=== PATIENT | female | born 1965 | race Caucasian/White ===

== ENCOUNTER → 2024-09-17 | Outpatient (REF) | payer MEDICARE, MEDICAID, SELFPAY ==
[2024-09-17 08:27] LABS: Hematocrit 31.7 % (37-47); Hemoglobin 8.8 g/dL (12.0-15.0); Mean Corp Hgb Conc 27.8 g/dL (32-36); Mean Corpuscular Volume 93.5 fL (81-99); POSITIVE COUNT YES; POSITIVE MORPHOLOGY YES; RBC Distribution Width CV 28.2 % (11.6-14.6); RBC Distribution Width SD 94.2 fl (35.1-43.9); Red Blood Count 3.39 M/mm3 (4.2-5.4); White Blood Count 4.1 K/mm3 (4.4-11.0)
[2024-09-17 08:38] LABS: Vitamin D,25 Hydroxy 88.1 ng/mL
[2024-09-17 08:49] LABS: ALB/GLOB Ratio 0.5 RATIO (0.9-2.4); AST(SGOT) 45 U/L (15-37); Alanine Aminotransfer ALT/SGPT 16 U/L (13-56); Albumin, Serum 2.3 g/dL (3.2-5.0); Alkaline Phosphatase 87 U/L (45-117); Anion Gap 3 (5-15); BUN 8 mg/dL (7-18); BUN/Creat Ratio 13.7 RATIO (10-20); Calcium,Total 8.3 mg/dL (8.5-10.1); Chloride 102 mmol/L (98-107); Cholesterol 113 mg/dL (200); Creatinine, Serum 0.58 mg/dL (0.55-1.02); EST Glomerular Filtration Rate 113 mL/min (>60); Est Glom Filt Rate - Afr Amer 137 mL/min (>60); Globulin 4.4 g/dL (2.2-4.2); Glucose 123 mg/dL (74-106); High Density Lipoprotein 25 mg/dL; Potassium 3.6 mmol/L (3.5-5.1); Protein, Total 6.7 g/dL (6.4-8.2); Sodium Level 138 mmol/L (136-145); Triglycerides 170 mg/dL; Very Low Density Lipoprotein 34 mg/dL (5-40)
[2024-09-17 09:03] LABS: Scan Indicated on CBC? Y/N YES- FLAGS NOTED
[2024-09-17 10:31] LABS: Hemoglobin A1c 5.5 % (3.8-5.6)
== END ==
LOC: OLS.ACW300 05:00
PROVIDERS: Visit Provider Family Medicine
DX: K58.9 Irritable bowel syndrome, unspecified (principal); E66.01 Morbid (severe) obesity due to excess calories
CPT/HCPCS: 36415; 80053; 80061; 82306; 83036; 83735; 84443; 85027

== ENCOUNTER → 2024-10-04 05:00 | Outpatient (REF) | payer MEDICARE, MEDICAID, SELFPAY ==
[2024-10-04 08:30] LABS: Hemoglobin 10.5 g/dL (12.0-15.0); Mean Corp Hgb Conc 29.2 g/dL (32-36); Mean Corpuscular Hgb 27.5 pg (27.0-32.0); Mean Corpuscular Volume 94.2 fL (81-99); Mean Platelet Vol. 10.7 fl (6.2-12.0); POSITIVE COUNT YES; POSITIVE MORPHOLOGY YES; RBC Distribution Width SD 78.3 fl (35.1-43.9); Red Blood Count 3.82 M/mm3 (4.2-5.4)
[2024-10-04 09:16] LABS: Scan Indicated on CBC? Y/N YES- FLAGS NOTED
== END ==
LOC: OLS.ACW300 05:00
PROVIDERS: Visit Provider Family Medicine
DX: I69.354 Hemiplegia and hemiparesis following cerebral infarction affecting left non-dominant side (principal); D62 Acute posthemorrhagic anemia; M62.81 Muscle weakness (generalized); D50.9 Iron deficiency anemia, unspecified; E66.01 Morbid (severe) obesity due to excess calories
CPT/HCPCS: 36415; 85027

== ENCOUNTER → 2024-10-27 05:00 | Outpatient (REF) | payer MEDICARE, MEDICAID, SELFPAY ==
[2024-10-27 09:05] LABS: Hematocrit 35.7 % (37-47); Hemoglobin 10.6 g/dL (12.0-15.0); Mean Corp Hgb Conc 29.7 g/dL (32-36); Mean Corpuscular Volume 94.4 fL (81-99); Mean Platelet Vol. 10.2 fl (6.2-12.0); Platelet Count 143 K/mm3 (150-450); RBC Distribution Width CV 17.6 % (11.6-14.6); RBC Distribution Width SD 61.1 fl (35.1-43.9); Red Blood Count 3.78 M/mm3 (4.2-5.4); White Blood Count 3.5 K/mm3 (4.4-11.0)
[2024-10-27 10:15] LABS: Iron 32 ug/dL (50-170); Iron Binding Capacity,Total 240 ug/dL (250-450)
== END ==
LOC: OLS.ACW300 05:00
PROVIDERS: Visit Provider Family Medicine
DX: I69.354 Hemiplegia and hemiparesis following cerebral infarction affecting left non-dominant side (principal); D62 Acute posthemorrhagic anemia; M62.81 Muscle weakness (generalized); D50.9 Iron deficiency anemia, unspecified; E66.01 Morbid (severe) obesity due to excess calories
CPT/HCPCS: 36415; 83540; 83550; 85027

== ENCOUNTER → 2024-12-07 | Outpatient (REF) | payer MEDICARE, MEDICAID, SELFPAY ==
[2024-12-07 09:20] LABS: Hematocrit 31.5 % (37-47); Hemoglobin 9.7 g/dL (12.0-15.0); Mean Corp Hgb Conc 30.8 g/dL (32-36); Mean Corpuscular Hgb 27.3 pg (27.0-32.0); Mean Corpuscular Volume 88.7 fL (81-99); Platelet Count 146 K/mm3 (150-450); RBC Distribution Width CV 14.6 % (11.6-14.6); RBC Distribution Width SD 46.6 fl (35.1-43.9); Red Blood Count 3.55 M/mm3 (4.2-5.4)
[2024-12-07 09:42] LABS: ALB/GLOB Ratio 0.9 RATIO (0.9-2.4); AST(SGOT) 61 U/L (<=31); Alanine Aminotransfer ALT/SGPT 25 U/L (<=34); Albumin, Serum 3.6 g/dL (3.5-5.0); Alkaline Phosphatase 90 U/L (35-104); Anion Gap 12 (5-15); BUN 8 mg/dL (4-19); BUN/Creat Ratio 15.4 RATIO (10-20); Bilirubin, Direct 0.33 mg/dL (0.00-0.30); Calcium,Total 9.3 mg/dL (7.6-11.0); Carbon Dioxide 24.6 mmol/L (21.0-32.0); Chloride 103 mmol/L (98-108); EST Glomerular Filtration Rate 109 (>60); Globulin 3.9 g/dL (2.2-4.2); Glucose 135 mg/dL (70-99); Potassium 3.9 mmol/L (3.3-5.1); Protein, Total 7.6 g/dL (5.9-8.4); Sodium Level 139 mmol/L (133-145); Total Bilirubin 0.85 mg/dL (0.00-1.30)
== END ==
LOC: OLS.ACW300 06:40
PROVIDERS: Referring Provider Family Medicine; Visit Provider Family Medicine
DX: Z79.899 Other long term (current) drug therapy (principal); I69.354 Hemiplegia and hemiparesis following cerebral infarction affecting left non-dominant side; D62 Acute posthemorrhagic anemia; M62.81 Muscle weakness (generalized); D50.9 Iron deficiency anemia, unspecified; E66.01 Morbid (severe) obesity due to excess calories
CPT/HCPCS: 36415; 80053; 82248; 85027

== ENCOUNTER → 2025-02-07 | Outpatient (REF) | payer MEDICARE, MEDICAID, SELFPAY ==
[2025-02-07 08:41] LABS: Hematocrit 28.1 % (37-47); Hemoglobin 7.9 g/dL (12.0-15.0); Mean Corp Hgb Conc 28.1 g/dL (32-36); Mean Corpuscular Hgb 23.4 pg (27.0-32.0); Mean Corpuscular Volume 83.1 fL (81-99); Platelet Count 162 K/mm3 (150-450); RBC Distribution Width CV 17.2 % (11.6-14.6); RBC Distribution Width SD 52.5 fl (35.1-43.9); Red Blood Count 3.38 M/mm3 (4.2-5.4); White Blood Count 4.4 K/mm3 (4.4-11.0)
[2025-02-07 09:44] LABS: AST(SGOT) 71 U/L (<=31); Alanine Aminotransfer ALT/SGPT 36 U/L (<=34); Albumin, Serum 3.6 g/dL (3.5-5.0); Alkaline Phosphatase 86 U/L (35-104); Anion Gap 12 (5-15); BUN 11 mg/dL (4-19); BUN/Creat Ratio 17.8 RATIO (10-20); Calcium,Total 9.1 mg/dL (7.6-11.0); Chloride 100 mmol/L (98-108); Cholesterol 200 mg/dL (<=200); Creatinine, Serum 0.61 mg/dL (0.70-1.20); EST Glomerular Filtration Rate 104 (>60); Globulin 3.7 g/dL (2.2-4.2); Glucose 234 mg/dL (70-99); High Density Lipoprotein 29 mg/dL; Low Density Lipoprotein Calc. 126 mg/dL; Potassium 4.2 mmol/L (3.3-5.1); Protein, Total 7.3 g/dL (5.9-8.4); Sodium Level 137 mmol/L (133-145); Total Bilirubin 0.75 mg/dL (0.00-1.30); Triglycerides 222 mg/dL; Very Low Density Lipoprotein 44 mg/dL (5-40); cholesterol:hdl ratio screen 6.85
== END ==
LOC: OLS.ACW300 05:00
PROVIDERS: Visit Provider Family Medicine
DX: I69.354 Hemiplegia and hemiparesis following cerebral infarction affecting left non-dominant side (principal); D50.9 Iron deficiency anemia, unspecified; E66.01 Morbid (severe) obesity due to excess calories
CPT/HCPCS: 36415; 80053; 80061; 85027

== ENCOUNTER → 2025-02-28 04:00 | Outpatient (REF) | payer MEDICARE, MEDICAID, SELFPAY ==
--- OUTSIDE RECORDS SUMMARY | 2025-02-28 04:16 | XMS RPT_ITS | CCD ---
Author Organization [facility] Care Team Providers Care Web Operations Administrator Name Role Phone MENCL, MIGUEL R Unavailable Unavailable MENCL, MIGUEL R Unavailable Unavailable NO REFERRING DR Unavailable Unavailable Didier Hicks Primary Care Provider Unavailable Primary Care Provider Unavailchino Hicks MD, Didier Primary Care Provider Didier Hicks Primary Care Provider [phone] Didier Hicks Primary Care Provider Unavailable Primary Care Provider Unavailchino OVERTON MD, [facility] Consulting Unavailable DEISY DILL, DAVID Attending Unavailable NATHAN DILL, EDMUNDO Primary Care Unavailable JACINTO BARRERA MD Admitting Unavailable MICHAEL DILL, RICHARD Deluna Consulting Unavailable Care Physician, No Primary Primary Care Provider Unavailable Gee Mccullough Attending Provider Unavailabl e Care Physician, No Primary Primary Care Provider Unavailable Gee Mccullough Attending Provider UnavailGee Lamar Referring Provider UnavailGee Lamar Attending Unavailable Care Physician, No Primary Primary Care Unava ilable Care Physician, No Primary Primary Care Unava ilable Gee Mccullough Attending Unavailable Care Physician, No Primary Primary Care Unava ilable Gee Mccullough Attending Unavailable Care Physician, No Primary Primary Care Unava ilable Gee Mccullough Attending Unavailable Gee Mccullough Attending Unavailable Gee Mccullough Referring Unavailable Care Physician, No Primary Primary Care Unava ilable Allergies Allergy Classification Reported Allergen(s) Allergy Type Date of Onset Reaction(s) Facility (4 sources) Aluminum aspirin Drug Allergy 02-25-20 16 Other (See Comments) [place], [place] (10 sources) Ciprofloxacin Drug Allergy 05-01-20 15 Itching [place] (4 sources) HYDROmorphone Drug Allergy 01-12-20 16 [place] (8 sources) Iodine Drug Allergy 07-25-20 11 Nausea And Vomiting, Vomiting [place] (4 sources) Ivermectin Drug Allergy 01-19-20 20 Other (See Comments) [place] (10 sources) metaxalone Drug Allergy 07-25-20 11 Itching [place] (10 sources) Morphine Drug Allergy 01-12-20 16 Intolerance [place] (8 sources) Permethrin Drug Allergy 01-12-20 16 Rash [place] (8 sources) predniSONE Drug Allergy 06-08-20 18 Nausea And Vomiting, Itching [place] (10 sources) Propofol Drug Allergy 07-20-20 12 Shortness Of Breath, Other: See Comments [place] (4 sources) Propoxyphene Drug Allergy 07-25-20 11 [place] ([place] sources) raNITIdine Drug Allergy 07-25-20 11 Nausea And Vomiting, Vomiting [place] (4 sources) Sulfonamides (Antibiotic) Propensity to adverse reactions to drug 07-03-20 17 [place] (4 sources) tapentadol Drug Allergy 06-01-20 12 Swelling [place] (8 sources) traMADol Drug Allergy 04-15-20 18 Other (See Comments), Other: See Comments [place] (4 sources) Tetracyclines & Related Propensity to adverse reactions to drug 02-25-20 16 [place] (3 sources) montelukast Drug Allergy 06-29-20 20 Other (See Comments) [facility] Work Phone: (3 sources) PARoxetine Drug Allergy 03-16-20 20 Other (See Comments) [facility] Work Phone: (1 source) buPROPion Drug Allergy 03-02-20 22 Other (See Comments) [facility] (4 sources) HYDROmorphone Drug Allergy 01-12-20 16 Other: See Comments [facility] (6 sources) Propoxyphene Drug Allergy 07-25-20 11 Unknown [facility] (4 sources) Salicylate product Drug Allergy 07-25-20 11 GI Upset [facility] (4 sources) tapentadol Drug Allergy 06-01-20 12 Swelling [facility] (6 sources) Tetracycline Drug Allergy 07-25-20 11 Rash [facility] (4 sources) Sulfa Dyne Drug Allergy 07-25-20 11 Unknown [facility] (5 sources) Aspirin Drug Allergy 02-25-20 16 Other: See Comments [facility] Work Phone: (5 sources) levoFLOXacin Drug Allergy 04-10-20 16 Rash [facility] Work Phone: (3 sources) Sulfonamides (Antibiotic) Drug Intolerance 04-10-20 16 GI Upset [facility] Work Phone: (3 sources) Iodinated Contrast Media Drug Intolerance 04-10-20 16 GI Upset [facility] Work Phone: (3 sources) Ciprofloxacin; Translations: [ciprofloxacin HCl] Drug Allergy 04-16-[address] [facility] (3 sources) HYDROmorphone; Translations: [hydromorphone HCl] Drug Allergy 04-16-[address] [facility] (2 sources) Sorbitol Drug Allergy 04-19-[address] [facility] Comment on above: "burning tongue" (2 sources) Sucrose Drug Allergy 04-19-[address] [facility] Comment on above: "burning tongue" (2 sources) Sulfonamides (Antibiotic) Propensity to adverse reactions 04-16-[address] [facility] (3 sources) tapentadol; Translations: [tapentadol HCl] Drug Allergy 04-16-[address] [facility] (2 sources) Triiodobenzoic Acids Propensity to adverse reactions 04-16-[address] [facility] (3 sources) Food Allergies: Uncoded; Translations: [Food Allergies: Uncoded] Allergy to substance 08-19-[address] [facility] Comment on above: ASPERTAME (1 source) Aspirin Drug Allergy 04-16-[address] [facility] Rep[facility] (1 source) Ciprofloxacin Drug Allergy 04-16-[address] [facility] Rep[facility] (1 source) levoFLOXacin Drug Allergy 04-16-[address] [facility] Rep[facility] (1 source) metaxalone Drug Allergy 04-16-[address] [facility] (1 source) Morphine Drug Allergy 04-16-[address] [facility] (1 source) Propofol Drug Allergy 04-16-[address] [facility] (1 source) Propoxyphene Drug Allergy 04-16-[address] [facility] (1 source) Sorbitol Drug Allergy 04-19-[address] [facility] Rep[facility] (1 source) Sucrose Drug Allergy 04-19-[address] [facility] Rep[facility] (1 source) Sulfonamides (Antibiotic) Drug allergy (disorder) 04-16-[address] [facility] Rep[facility] (1 source) Tetracycline Drug Allergy 04-16-[address] [facility] Rep[facility] (1 source) Iodinated Contrast Media Drug allergy (disorder) 04-16-[address] [facility] Repository Medications Current Medications Medication Drug Class(es) Dates Sig (Normalized) Sig (Original) acetaminophen 500 mg oral tablet (10 sources) Start: 03-03-2022 acetaminophen (TYLENOL) tablet 1,000 mg Start: 03-01-2022 End: 03-01-2022 acetaminophen (TYLENOL) tabl et 1,000 mg acetaminophen (T YLENOL ARTHRITIS ORAL) Take by mouth. 0 Active acetaminophen (T YLENOL ARTHRITIS ORAL) Take by mouth. 0 Suspended take 2 tablets by mo [facility] every six hours as needed for pain acetaminophen (TYLENOL) 500 MG tablet Take 1,000 mg by mouth every 6 hours as needed for Pain 0 Active Acetaminophen (T YLENOL ARTHRITIS EXT RELIEF PO) Take by mouth 0 Active Comment on above: Take by mouth. ALPRAZolam 0.25 mg oral tablet (2 sources) Benzodiazepine take 1 tablet by mouth three times daily as needed for sleep ALPRAZolam (XANAX) 0.25 MG tablet Take 0.25 mg by mouth 3 times daily as needed for Sleep. 0 Active amLODIPine 5 mg oral tablet (8 sources) Dihydropyridine Calcium Channel Beata Start: 03-06-20 End: 03-05-20 take 1 tablet by mouth once daily amLODIPine (NORVASC) 5 MG tablet Take 1 tablet by mouth daily 30 tablet 3 03/06/2022 03/05/2022 Discontinued (Stop Taking at Discharge) Start: 03-06-2022 take 1 tablet by afshan once daily amLODIPine (NORVASC) 10 MG tablet Take 1 tablet by mouth daily 30 tablet 3 03/06/2022 Active Start: 03-06-2022 amLODIPine (NO RVASC) tablet 10 mg Start: 03-04-2022 End: 03-05-2022 amLODIPine (NORVASC) tablet 5 mg take 1 tablet by afshan th once daily amLODIPine (NORVASC) 10 mg tablet Take 10 mg by mouth once daily. 0 Active Comment on above: Take 10 mg by mouth once daily. amoxicillin 875 mg / clavulanate 125 mg oral tablet (1 source) Penicillin-class Antibacterial Start: 07-31-20 End: 08-10-20 take 1 tablet by mouth twice daily amoxicillin-clavulan ate (AUGMENTIN) 875-125 MG per tablet Indications: Acute bacterial sinusitis Take 1 tablet by mouth 2 times daily for 10 days 20 tablet 0 07/31/2021 08/10/2021 Active atorvastatin 40 mg oral tablet (6 sources) HMG-CoA Reductase Inhibitor Start: 03-02-20 take 1 tablet by mouth once daily atorvastatin (LIPITOR) 40 MG tablet Take 1 tablet by mouth nightly 30 tablet 3 03/05/2022 Active Comment on above: Take 40 mg by mouth once daily. capsaicin 0.25 mg/ml topical cream (2 sources) Start: 03-05-20 End: 04-04-20 capsaicin (ZOSTRIX) 0.025 % cream Apply topically 2 times daily. 1 03/05/2022 04/04/2022 Active Start: 03-02-2022 capsaicin (ZOS TRIX) 0.025 % cream cefuroxime 250 mg oral tablet (2 sources) Cephalosporin Antibacterial Start: 04-24-2016 take 2 tablets by mouth twice daily Cefuroxime Axetil 250 MG tablet Active 500 mg PO TWICE A DAY April 24, 2016 12:00am cholecalciferol 1000 unt oral capsule (1 source) Vitamin D take 1 capsule by mouth once daily Cholecalciferol (VITAMIN D-3) 25 MCG (1000 UT) CAPS Take 1 capsule by mouth daily 0 Active clopidogrel 75 mg oral tablet (6 sources) [id number] Platelet Inhibitor Start: 03-05-2022 clopidogrel (PLAVIX) tablet 75 mg Comment on above: Take 75 mg by mouth once daily. 0.4 ml enoxaparin sodium 100 mg/ml prefilled syringe (2 sources) Low Molecular Weight Heparin Start: 03-06-2022 enoxaparin (LOVENOX) 40 MG/0.4ML Inject 0.4 mLs into the skin daily 0 03/06/2022 Active Start: 03-02-2022 enoxaparin (LO VENOX) injection 40 mg fluticasone propionate 0.05 mg/actuat metered dose nasal spray (3 sources) Corticosteroid Start: 12-27-2019 take 2 spray(s) nasal route once daily fluticasone (FLONASE) 50 MCG/ACT nasal spray Indications: Acute non-recurrent maxillary sinusitis SHAKE LIQUID AND USE 2 SPRAYS IN EACH NOSTRIL DAILY 16 g 3 12/27/2019 Active gabapentin 100 mg oral capsule (3 sources) Anti-epileptic Agent Start: 03-03-2022 End: 04-04-2022 take 1 capsule by mouth twice daily gabapentin (NEURONTIN) 100 MG capsule Take 1 capsule by mouth 2 times daily for 30 days. 90 capsule 3 03/05/2022 04/04/2022 Active hydrALAZINE hydrochloride 10 mg oral tablet (6 sources) Arteriolar Vasodilator Start: 03-05-2022 End: 03-05-2023 take 1 tablet by mouth four times daily as needed hydrALAZINE (APRESOLINE) 10 MG tablet Take 1 tablet by mouth 4 times daily as needed (for SBP > 180) 90 tablet 3 03/05/2022 03/05/2023 Active Comment on above: Take 10 mg by mouth four times daily as needed (for SBP > 180). hydrOXYzine pamoate 25 mg oral capsule (2 sources) Antihistamine Start: 03-02-2022 hydrOXYzine pamoate (VISTARIL) capsule 25 mg End: 03-02-2022 take 1 tablet by mouth three times daily as needed hydrOXYzine HCl (ATARAX) 25 MG tablet Take 25 mg by mouth 3 times daily as needed for Itching 0 03/02/2022 Discontinued (LIST CLEANUP) loratadine 10 mg oral tablet (1 source) Start: 01-19-2020 take 1 tablet by mouth once daily loratadine (CLARITIN) 10 MG tablet Take 1 tablet by mouth daily 90 tablet 3 01/19/2020 Active melatonin 5 mg oral tablet (2 sources) Start: 03-02-2022 take 1 tablet by mouth once daily as needed melatonin 5 MG TABS tablet Take 1 tablet by mouth nightly as needed (insomnia) 0 03/05/2022 Active metroNIDAZOLE 500 mg oral tablet (2 sources) Nitroimidazole Antimicrobial Start: 04-24-2016 take 1 tablet by mouth every eight hours Metronidazole 500 MG tablet Active 500 mg PO Q8H April 24, 2016 12:00am PARoxetine hydrochloride 10 mg oral tablet (1 source) Serotonin Reuptake Inhibitor Start: 01-10-2020 take 1 tablet by mouth once daily PARoxetine (PAXIL) 10 MG tablet Indications: PTSD (post-traumatic stress disorder) , Current 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 8 tablet 0 03/12/2018 Active Start: 04-24-2016 End: 03-12-2022 take 1 tablet by mouth every six hours as needed for nausea promethazine (PHENERGAN) 25 MG tablet Take 1 tablet by mouth every 6 hours as needed for Nausea 0 03/05/2022 03/12/2022 Active End: 03-05-2022 Promethazine HCl (PHENERGAN PO) Take by mouth as needed 0 03/05/2022 Discontinued (Stop Taking at Discharge) Comment on above: Take 1 tablet by afshan th every 4 hours as needed for Nausea/Vomiting. RABEprazole sodium 20 mg delayed release oral tablet (13 sources) Proton Pump Inhibitor Start: 04-10-20 16 End: 04-24-20 16 take 1 tablet by mouth twice daily as needed Rabeprazole Sodium (Aciphex) 20 MG Tablet.Dr Active 20 mg PO TWICE A DAY as needed for ACID REFLUX 60 April 24, 2016 1:15pm Start: 11-03-2015 End: 06-14-2022 take 1 tablet by mouth once daily RABEprazole (ACIPHEX) 20 mg tablet Take 1 tablet by mouth once daily. 30 tablet 0 03/29/2022 04/28/2022 Active Comment on above: Take 20 mg by mouth once daily as needed. Take 1 tablet by afshan th once daily. 24 hr venlafaxine 37.5 mg extended release oral capsule (1 source) Serotonin and Norepinephrine Reuptake Inhibitor Start: 04-03-20 End: 07-19-20 take 1 capsule by mouth once daily venlafaxine (EFFEXOR XR) 37.5 MG extended release capsule Take 1 capsule by mouth Daily with supper 0 04/03/2021 07/19/2021 Discontinued (LIST CLEANUP) Completed/Discontinued Medications Medication Drug Class(es) Dates Sig (Normalized) Sig (Original) atropine sulfate 0.025 mg / diphenoxylate hydrochloride 2.5 mg oral tablet (9 sources) Anticholinergic, Cholinergic Muscarinic Antagonist, Antidiarrheal Start: 03-02-2022 take 1 tablet by mouth four times daily as needed 1 tablet, Oral, 4 TIMES DAILY PRN, Starting on 03/02/22 at 0317, Until Discontinued, Diarrhea Start: 02-12-2021 End: 02-07-2022 take 1 tablet by mouth four times daily as needed for diarrhea diphenoxylate-atropine (LOMOTIL) 2.5-0.025 MG per tablet Indications: Chronic ulcerative colitis without complication, unspecified location (HCC) Take 1 tablet by mouth 4 times daily as needed for Diarrhea for up to 360 days. 360 tablet 3 02/12/2021 02/07/2022 Active Start: 04-10-2016 End: 04-24-2016 take 1 tablet by mouth three times daily as needed for diarrhea Diphenoxylate-Atropine 1 TABLET tablet Active 7.2 mg PO THREE TIMES A DAY as needed for Diarrhea April 24, 2016 1:15pm take 1 tablet by afshan th four times daily as needed for diarrhea diphenoxylate-atropine (LOMOTIL) 2.5-0.025 MG per tablet Take 1 tablet by mouth 4 times daily as needed for Diarrhea.. 0 Active calcium carbonate 500 mg chewable tablet (4 sources) Start: 03-13-2022 take 500 mg by mouth every twelve hours as needed calcium carbonate (TUMS) 500 mg chew Take 1 tablet by mouth twice daily as needed (indigestion). 0 03/13/2022 Active Comment on above: Take 1 tablet by afshan th twice daily as needed (indigestion). capsaicin 0.17527 mg/mg / menthol 0.1 mg/mg topical gel (4 sources) Capsaicin-Mentho l (CAPZASIN) 0.025-10 % gel Apply 1 application to affected area twice daily. to bilateral knees 0 Active Comment on above: Apply 1 application to affected area twice daily. to bilateral knees diclofenac sodium 75 mg delayed release oral tablet (8 sources) Nonsteroidal Anti-inflammatory Drug Start: 02-25-2022 End: 03-05-2022 take 1 tablet by mouth once daily diclofenac (VOLTAREN) 75 MG EC tablet Indications: Osteoarthritis of both knees, unspecified osteoarthritis type Take 1 tablet by mouth daily 30 tablet 0 02/25/2022 03/05/2022 Discontinued (Stop Taking at Discharge) Start: 06-19-2021 take 1 tablet by afshan th once daily diclofenac (VOLTAREN) 75 MG EC tablet Indications: Osteoarthritis of both knees, unspecified osteoarthritis type Take 1 tablet by mouth daily 90 tablet 3 06/19/2021 Active Start: 06-19-2021 End: 06-14-2022 take 1 tablet by mouth once daily diclofenac (VOLTAREN) 50 MG EC tablet Indications: Osteoarthritis of both knees, unspecified osteoarthritis type Take 1 tablet by mouth daily 30 tablet 0 02/25/2022 03/05/2022 Discontinued (Stop Taking at Discharge) Start: 01-10-2020 End: 04-09-2020 take 1 tablet by mouth twice daily diclofenac (VOLTAREN) 50 MG EC tablet Indications: Osteoarthritis of both knees, unspecified osteoarthritis type Take 1 tablet by mouth 2 times daily 180 tablet 0 01/10/2020 04/09/2020 Active Start: 01-10-2020 take 1 tablet by afshan th once daily diclofenac (VOLTAREN) 75 MG EC tablet Take 1 tablet by mouth daily 0 01/10/2020 Active dicyclomine hydrochloride 20 mg oral tablet (11 sources) Anticholinergic Start: 03-02-2022 take 20 mg by mouth four times daily as needed 20 mg, Oral, 4 TIMES DAILY PRN, Starting on 03/02/22 at 0317, Until Discontinued, Abdominal Cramping Start: 12-27-2019 take 1 tablet by afshan th every six hours as needed for constipation dicyclomine (BENTYL) 20 MG tablet Indications: Irritable bowel syndrome with both constipation and diarrhea TAKE 1 TABLET BY MOUTH EVERY 6 HOURS NEEDED FOR CONSTIPATION 120 tablet 0 08/23/2021 Active Start: 04-10-2016 take 2 capsules by m outh three times daily as needed Dicyclomine 10 MG capsule Active 20 mg PO THREE TIMES A DAY as needed for Gi Cramping April 10, 2016 12:00am Comment on above: Take 20 mg by mouth every 6 hours as needed. docusate sodium 100 mg oral capsule (4 sources) take 1 capsule by mouth every twelve hours as needed docusate sodium (COLACE) 100 mg capsule Take 100 mg by mouth twice daily as needed for constipation. 0 Active Comment on above: Take 100 mg by mouth twice daily as needed for constipation. gadobutrol (GADAVIST) injection 15 mL (2 sources) Start: 03-04-2022 End: 03-04-2022 gadobutrol (GADAVIST) injection 15 mL Start: 03-04-2022 gadobutrol (GA DAVIST) injection 15 mL lidocaine 0.04 mg/mg medicated patch (4 sources) Antiarrhythmic, Amide Local Anesthetic lidocaine (SALONPAS) 4 % patch Apply 1 application as directed once daily. 0 Active Comment on above: Apply 1 application as directed once daily. loperamide hydrochloride 2 mg oral capsule (4 sources) Opioid Agonist Start: 03-13-20 take 1 capsule by mouth every eight hours as needed loperamide (IMODIUM) 2 mg cap(s) Take 1 capsule by mouth three times daily as needed for diarrhea. 0 03/13/2022 Active Comment on above: Take 1 capsule by mo uth three times daily as needed for diarrhea. 1 ml LORazepam 2 mg/ml injection (2 sources) Benzodiazepine Start: 03-04-20 End: 03-04-20 LORazepam (ATIVAN) injection 1 mg Start: 03-03-2022 End: 03-03-2022 LORazepam (ATIVAN) injection 1 mg methocarbamol 750 mg oral tablet (3 sources) Muscle Relaxant take 1 tablet by mouth four times daily methocarbamol (ROBAXIN) 750 mg tablet Take 750 mg by mouth four times daily. 0 Suspended Comment on above: Take 750 mg by mouth four times daily. omeprazole 20 mg delayed release oral capsule (3 sources) Proton Pump Inhibitor take 1 capsule by mouth once daily omeprazole (PRILOSEC) 20 mg capsule Take 20 mg by mouth once daily. 0 Suspended Comment on above: Take 20 mg by mouth once daily. ondansetron 4 mg oral tablet (1 source) Serotonin-3 Receptor Antagonist Start: End: take 1 tablet by mouth once daily as needed for nausea ondansetron (ZOFRAN) 4 MG tablet Take 1 tablet by mouth daily as needed for Nausea or Vomiting 15 tablet 0 10/04/2021 03/02/2022 Discontinued (LIST CLEANUP) oxyCODONE hydrochloride 5 mg oral tablet (1 source) Opioid Agonist Start: End: oxyCODONE (ROXICODONE) immediate release tablet 2.5 mg pantoprazole 40 mg delayed release oral tablet (1 source) Proton Pump Inhibitor Start: End: take 40 mg by mouth once daily before breakfast 40 mg, Oral, DAILY BEFORE BREAKFAST, First dose on 03/02/22 at 0700, Until Discontinued Do not crush or break. Substituted for RABEprazole (ACIPHEX). polyethylene glycol 3350 33325 mg powder for oral solution (1 source) Osmotic Laxative Start: 17 g, Oral, DAILY PRN, Starting on 03/02/22 at 0317, Until Discontinued, Constipation First line therapy for constipation 5 ml sodium chloride 9 mg/ml injection (6 sources) Start: take 1 dose intravenously twice daily 5-40 mL, IntraVENous, EVERY 12 HOURS SCHEDULED (2 times per day), First dose on 03/02/22 at 0900, Until Discontinued For Line Patency: Peripheral IV = 5 mL; Midline or Central Line = 10 mL/lumen. & nbsp;If following IV push medication, administer flush at same rate as the IV push. Flush volume is determined by type of infusion therapy being given. Fo r non-viscous solutions use: Peripheral IV = 5 mL Midline or Central Line = 10 mL/lumen For viscous solutions (i.e. blood components, parenteral nutrition, contrast media, or after obtaining blood sample) use: Peripheral IV = 10 mL Midline or Central Line = 20 mL/lumen Start: 03-02-2022 IntraVENous, a t 5-250 mL/hr, PRN, if patient receiving piggyback infusions and maintenance fluids are not ordered OR KVO fluids to protect IV site / prevent frequent line interruptions/ long duration, Starting on 03/02/22 at 0317 For piggyback infusion, administer at same rate as piggyback for a total of 25 mL. Enter 25 mL into dose field and piggyback rate into rate field of order. If piggyback is infusing at a rate less than 100 mL/hr, enter 25 mL into dose field and 100 mL/hr into rate field of order. For KVO fluids, enter rate of 20 mL/hr or less into rate field of order. Start: 03-02-2022 take 5-40 mL intrave nously once as needed 5-40 mL, IntraVENous, PRN, Starting on 03/02/22 at 0317, Until Discontinued, Line Care, After every IV line use For Line Patency: Peripheral IV = 5 mL; Midline or Central Line = 10 mL/lumen. If following IV push medication, administer flush at same rate as the IV push. Flush volume is determined by type of infusion therapy being given. For non-viscous solutions use: Peripheral IV = 5 mL Midline or Central Line = 10 mL/lumen For viscous solutions (i.e. blood components, parenteral nutrition, contrast media, or after obtaining blood sample) use: Peripheral IV = 10 mL Midline or Central Line = 20 mL/lumen Start: 03-01-2022 End: 03-01-2022 0.9 % sodium chloride bolus Start: 03-01-2022 End: 03-05-2022 IntraVENous, at 50 mL/hr, CONTINUOUS, Starting on 03/02/22 at 0345 vitamin b12 1 mg/ml injectable solution (1 source) Vitamin B12 Start: 03-02-2022 End: 03-02-2022 cyanocobalamin injection 1,000 mcg Problems Active Problems Problem Classification Problem Date Documented Da te Episodic/Chronic Abdominal hernia (16 sources) Umbilical hernia; Translations: [Hiatal hernia] Onset: 2 06-08-2018 Episodic Acute posthemorrhagic anemia (2 sources) Acute posthemorrhagic anemia; Translations: [Acute posthemorrhagic anemia] Onset: 5 Episodic Anxiety disorders (19 sources) Anxiety; Translations: [Posttraumatic stress disorder] Onset: 2 06-08-2018 Chronic Conditions associated with dizziness or vertigo (4 sources) Dizziness and giddiness; Translations: [Benign paroxysmal vertigo, bilateral] Onset: 7 Episodic Deficiency and other anemia (2 sources) Iron deficiency anemia, unspecified; Translations: [Iron deficiency anemia, unspecified] Onset: 5 Episodic Diabetes mellitus without complication (2 sources) Increased glucose level; Translations: [Other abnormal glucose] Onset: 2 03-25-2022 Episodic Disorders of lipid metabolism (3 sources) Hyperlipidemia; Translations: [Hyperlipidemia, unspecified] Onset: 2 03-25-2022 Chronic Diverticulosis and diverticulitis (6 sources) Diverticulitis; Translations: [Diverticulitis of intestine, part unspecified, without perforation or abscess without bleeding] Onset: 6 10-24-2016 Chronic Esophageal disorders (9 sources) Gastroesophageal reflux disease; Translations: [Gastro-esophageal reflux disease without esophagitis] Onset: 2 06-08-2018 Chronic Essential hypertension (9 sources) Essential hypertension; Translations: [Essential (primary) hypertension] Onset: 9 12-16-2018 Chronic Gastroduodenal ulcer (except hemorrhage) (9 sources) Peptic ulcer; Translations: [Peptic ulcer, site unspecified, unspecified as acute or chronic, without hemorrhage or perforation] Onset: 2 06-08-2018 Chronic Headache, including migraine (1 source) Migraine, unspecified, not intractable, without status migrainosus; Translations: [MIGRAINE UNS NOT INTRACT] Onset: 7 Chronic Late effects of cerebrovascular disease (2 sources) Hemiplegia and hemiparesis following cerebral infarction affecting left non-dominant side; Translations: [Hemiplegia and hemiparesis following cerebral infarction affecting left non-dominant side] Onset: 5 Chronic Malaise and fatigue (4 sources) Chronic fatigue syndrome; Translations: [Chronic fatigue, unspecified] 06-08-2018 Chronic Malaise and fatigue (10 sources) Left hemiparesis; Translations: [Weakness] Onset: 2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 estimationOrdered By: Gee Herrmann on 09-17-2024 Estimated GFR (MDRD) Non-Af Amer 113 mL/min >60 [facility] Comment on above: Non- GFR Calc Glucose measurementOrdered B y: Gee Herrmann on 09-17-2024 Glucose [Mass/Vol] 123 mg/dL High 74-106 [facility] Comment on above: Fasting Glucose resu lt from 100 to 125 mg/dL suggests IMPAIRED HOMEOSTASIS per A.D.A. criteria. Hematocrit Auto (Bld) [Volum e fraction]Ordered By: Gee Herrmann on 09-17-2024 Hematocrit (Bld) [Volume fraction] 31.7 % Low 37-47 [facility] Hemoglobin A1c percentageOrd ered By: Gee Herrmann on 09-17-2024 HbA1c (Bld) [Mass fraction] 5.5 % 3.8-5.6 [facility] Comment on above: Normal < 5.7 % Predi abetic 5.7 - 6.4 % Diabetic >or= 6.5 % Please note range changes. Hemoglobin measurementOrdere d By: Gee Herrmann on 09-17-2024 Hemoglobin (Bld) [Mass/Vol] 8.8 g/dL Low 12.0-15.0 [facility] High density lipoprotein (HD L) measurementOrdered By: Gee Herrmann on 09-17-2024 Cholesterol in HDL [Mass/Vol] 25 mg/dL Low >40 [facility] Comment on above: The drugs N-Acetylcy steine and Metamizole may falsely depress this assay. Reference Range HDL <40 mg/dL Low HDL Cholesterol HDL >or= 60 mg/dL High HDL Cholesterol Laboratory - Chemistry and C hemistry - challengeOrdered By: Gee Herrmann on 09-17-2024 AST [Catalytic activity/Vol] 45 U/L High 15-37 [facility] Low density lipoprotein (LDL ) cholesterol measurementOrdered By: Gee Herrmann on 09-17-2024 Cholesterol in LDL [Mass/Vol] 54 mg/dL 0-130 [facility] MCV (mean corpuscular volume ) determinationOrdered By: Gee Herrmann on 09-17-2024 MCV (RBC) [Entitic vol] 93.5 fL 81-99 [facility] Magnesium measurementOrdered By: Gee Herrmann on 09-17-2024 Magnesium [Mass/Vol] 2.0 mg/dL 1.6-2.6 [facility] Manual differential comment Kt (Bld) [Interp]Ordered By: Gee Herrmann on 09-17-2024 Differential Comment See comment [facility] Comment on above: PLATELET ESTIMATE: M KAILA DECREASEDANISCYTOSIS 1+ Mean corpuscular hemoglobin (MCH) determinationOrdered By: Gee Herrmann on 09-17-2024 MCH (RBC) [Entitic mass] 26.0 pg Low 27.0-32.0 [facility] Mean corpuscular hemoglobin concentration (MCHC) determinationOrdered By: Gee Herrmann on 09-17-2024 MCHC (RBC) [Mass/Vol] 27.8 g/dL Low 32-36 [facility] Platelet countOrdered By: Carey Herrmann on 09-17-2024 Platelet Count See comment 150-450 [facility] Comment on above: Please note: For thi s sample, a platelet estimate is provided rather than a platelet count due to platelet clumping. Other parameters associated with this sample are not affected by platelet clumping. If a more accurate platelet count is required, a redraw of the patient will be necessary. Potassium measurementOrdered By: Gee Herrmann on 09-17-2024 Potassium [Moles/Vol] 3.6 mmol/L 3.5-5.1 [facility] RBC Auto (Bld) [#/Vol]Ordere d By: Gee Herrmann on 09-17-2024 RBC (Bld) [#/Vol] 3.39 10*6/uL Low 4.2-5.4 [facility] Serum anion gap measurementO rdered By: Gee Herrmann on 09-17-2024 Anion gap [Moles/Vol] 3 mmol/L Low 5-15 [facility] Serum globulin measurementOr dered By: Gee Herrmann on 09-17-2024 Globulin (S) [Mass/Vol] 4.4 g/dL High 2.2-4.2 [facility] Serum or plasma alanine troy otransferase (ALT) measurementOrdered By: Gee Herrmann on 09-17-2024 ALT [Catalytic activity/Vol] 16 U/L 13-56 [facility] Serum or plasma albumin jae urement (mass/volume)Ordered By: Gee Herrmann on 09-17-2024 Albumin [Mass/Vol] 2.3 g/dL Low 3.2-5.0 [facility] Serum or plasma alkaline jalyn sphatase measurementOrdered By: Gee Herrmann on 09-17-2024 ALP [Catalytic activity/Vol] 87 U/L 45-117 [facility] Serum or plasma calcium jae urement (mass/volume)Ordered By: Gee Herrmann on 09-17-2024 Calcium [Mass/Vol] 8.3 mg/dL Low 8.5-10.1 [facility] Serum or plasma cholesterol measurement (mass/volume)Ordered By: Gee Herrmann on 09-17-2024 Cholesterol [Mass/Vol] 113 mg/dL <200 [facility] Comment on above: <200 mg/dL Desirable 200-240 mg/dL Borderline >240 mg/dL High Risk Serum or plasma creatinine m easurement (mass/volume)Ordered By: Gee Herrmann on 09-17-2024 Creatinine [Mass/Vol] 0.58 mg/dL 0.55-1.02 [facility] Comment on above: The validity of the calculated GFR & GFRAA in patients over 70 years has not been determined. Clinical correlation is essential. Serum or plasma urea nitroge n measurement (mass/volume)Ordered By: Gee Herrmann on 09-17-2024 Urea nitrogen [Mass/Vol] 8 mg/dL 7-18 [facility] Sodium levelOrdered By: Gera Herrmann on 09-17-2024 Sodium [Moles/Vol] 138 mmol/L 136-145 [facility] TSH QnOrdered By: Gee malhotra on 09-17-2024 Thyroid Stimulating Hormone (TSH) 2.510 uIU/mL 0.358-3.740 [facility] Total proteinOrdered By: Yair Herrmann on 09-17-2024 Protein [Mass/Vol] 6.7 g/dL 6.4-8.2 [facility] Triglycerides measurementOrd ered By: Gee Herrmann on 09-17-2024 Triglyceride [Mass/Vol] 170 mg/dL <199 [facility] Comment on above: The drugs N-Acetylcy steine and Metamizole may falsely depress this assay.Serum Triglycerides Reference Interval Normal <150 mg/dL Borderline high 150 - 199 mg/dL High 200 - 499 mg/dL Very High > or = 500 mg/dL Very low density lipoprotein (VLDL) cholesterol measurementOrdered By: Gee Herrmann on 09-17-2024 VLDL Cholesterol 34 mg/dL 5-40 [facility] White blood cell (WBC) count Ordered By: Gee Herrmann on 09-17-2024 WBC (Bld) [#/Vol] 4.1 10*3/uL Low 4.4-11.0 [facility] C URINEon 09-16-2024 C URINE [place] of Laboratory Services [address] [place] [id number] Name: BRADLEY MATOS : 1965 Admitting JACINTO BARRERA MD Provider: Gender Female Financial [id number] : [facility] 02 n: Admit 09/03/2024 Date: Discharge 09/15/2024 Microbiology Date: PROCEDURE: C URINE [] SOURCE: CLEAN CATCH BODY SITE: COLLECTED DATE/TIME: 09/14/2024 05:15 EST RECEIVED DATE/TIME: 09/15/2024 06:47 EST START DATE/TIME: 09/15/2024 06:47 EST FREE TEXT SOURCE: ORDERING PHYSICIAN: DAVID WARD MD FINAL REPORTS Final Report [] Verified Date/Time: 09/16/2024 08:31 EST No significant growth. ____ L=Low, H= High, *= Abnormal, C=Critical, f=Footnote, c=Corrected, i=Interp Data Name: BRADLEY MATOS Print 09/16/2024 08:31 EST Date/Time: Normal [facility] Comment on above: Performed By: #### 1 [id number] #### [facility] Laboratory Services [address] [place] [address] [employer]: Albert Arana MD ACETAMINOPHEN 500 MG TABon 0 09-15-2024 ACETAMINOPHEN 500 MG TAB PRN Response Entered On: 09/15/2024 11:40 EST Performed On: 09/15/2024 10:44 EST by Mini Hale RN Intervention Information: acetaminophen Performed by Mini Hale RN on 09/15/2024 09:44:00 EST acetaminophen,1000mg ORAL PRN Medication Response PRN Medication used for : Pain PRN Medication Effectiveness : Yes PRN Response Pain Scales : Numeric (8yrs & older) Numeric Pain Scale Age : Numeric (8yrs & older) Actual time of reassessment : No (not needed time is correct) Mini Hale RN - 09/15/2024 11:40 EST Numeric Pain Scale Numeric Pain Scale : 3 = Mild Pain Numeric Pain Score : 3 Mini Hale RN - 09/15/2024 11:40 EST Normal [facility] Comment on above: Order Comment: ---At home, patient was taking medication with the following details:Special Instructions: not to exceed 3000 mg/day--- AUTO DIFFon 09-15-2024 Baso Count 0.04 x1000 Normal 0.00-0.20 [facility] Comment on above: Performed By: #### 1 [id number] #### [facility] Laboratory Services [address] [place] [id number] [employer]: Albert Arana MD Basos % 1.1 % Normal [facility] Comment on above: Performed By: #### 1 [id number] #### [facility] Services [address] [place] [address] [employer]: Albert Arana MD Eos Count 0.00 x1000 Normal 0.00-0.50 [facility] Comment on above: Performed By: #### 1 [id number] #### [facility] Services [address] [place] [id number] [employer]: Albert Arana MD Eosinophils/100 WBC (Bld) 0.1 % Normal [facility] Comment on above: Performed By: #### 1 [id number] #### [facility] Services [address] [place] [address] [employer]: Albert Arana MD Lymph Count 0.95 x1000 Low 1.20-4.80 [facility] Comment on above: Performed By: #### 1 [id number] #### [facility] Services [address] [place] [address] [employer]: Albert Arana MD Lymphocytes/100 WBC (Bld) 25.1 % Normal [facility] Comment on above: Performed By: #### 1 [id number] #### [facility] Services [address] [place] [address] [employer]: Albert Arana MD [place] Count 0.40 x1000 Normal 0.10-1.00 [facility] Comment on above: Performed By: #### 1 [id number] #### [facility] Services [address] [place] [address] [employer]: Albert Arana MD Monocytes/100 WBC (Bld) 10.6 % Normal [facility] Comment on above: Performed By: #### 1 [id number] #### [facility] Laboratory Services [address] [place] [address] [employer]: Albert Arana MD Neutrophil Count (ANC) 2.39 x1000 Normal 1.40-8.80 So [facility] Comment on above: Performed By: #### 1 [id number] #### [facility] [address] [address] [employer]: Albert Arana MD Neutrophils/100 WBC (Bld) 63.1 % Normal [facility] Comment on above: Performed By: #### 1 [id number] #### [facility] [address] [address] [employer]: Albert Arana MD Red Blood Cell Morphology See Notes Abnormal [facility] Comment on above: Result Comment: Anis ocytosis 3+ Poikilocytosis 1+ Ovalocytes 1+ Polychromasia present Performed By: #### 1 [id number] #### [facility] Services [address] [place] [address] [employer]: Albert Arana MD Scan Differential Diff Scd Normal [facility] Comment on above: Result Comment: Slid e reviewed by technologist. Performed By: #### 1 [id number] #### [facility] Services [address] [place] [address] [employer]: Albert Arana MD BASICMETAon 09-15-2024 Calcium [Mass/Vol] 8.4 mg/dL Low 8.7-10.4 [facility] Comment on above: Performed By: #### 1 [id number] #### [facility] Laboratory Services [address] [place] [address] [employer]: Albert Arana MD Chloride [Moles/Vol] 104 mmol/L Normal 98-107 [facility] Comment on above: Performed By: #### 1 98571 #### [facility] Laboratory Services [address] [place] [address] [employer]: Albert Arana MD CO2 [Moles/Vol] 31.0 mmol/L Normal 20.0-31.0 [facility] Comment on above: Performed By: #### 1 [id number] #### [facility] Laboratory Services [address] [place] [address] [employer]: Albert Arana MD Creatinine [Mass/Vol] 0.6 mg/dL Normal 0.5-0.8 [facility] Comment on above: Performed By: #### 1 [id number] #### [facility] Services [address] [place] [address] [employer]: Albert Arana MD GFR AA >60 Normal [facility] Comment on above: Result Comment: Afri can Bhutanese GFR Calc Medical judgement is necessary to interpret GFR. The calculated GFR may not accurately reflect renal status in patients >70 years, women, acutely ill hospitalized patients and patients with acute renal failure or known renal disease. The MDRD GFR formula is valid only for adults greater than 18 years of age. Note: Creatinine clearance (not GFR) should be used for drug dosing. Performed By: #### 1 [id number] #### [facility] Laboratory Services [address] [place] [address] [employer]: Albert Arana MD Glomerular Filtration Rate >60 Normal [facility] Comment on above: Result Comment: Non- GFR Calc Medical judgement is necessary to interpret GFR. The calculated GFR may not accurately reflect renal status in patients >70 years, women, acutely ill hospitalized patients and patients with acute renal failure or known renal disease. The MDRD GFR formula is valid only for adults greater than 18 years of age. Note: Creatinine clearance (not GFR) should be used for drug dosing. Performed By: #### 1 [id number] #### [facility] Laboratory Services [address] [place] [address] [employer]: Albert Arana MD Glucose [Mass/Vol] 111 mg/dL High 74-106 [facility] Comment on above: Performed By: #### 1 07081 #### [facility] Laboratory Services [address] [place] [address] [employer]: Albert Arana MD Osmolality [Osmolality] 275 mosm/kg Normal 275-295 [facility] Comment on above: Performed By: #### 1 [id number] #### [facility] Services [address] [place] [address] [employer]: Albert Arana MD Potassium [Moles/Vol] 3.7 mmol/L Normal 3.5-5.1 [facility] Comment on above: Performed By: #### 1 [id number] #### [facility] Services [address] [place] [address] [employer]: Albert Arana MD Sodium [Moles/Vol] 138 mmol/L Normal 135-145 [facility] Comment on above: Performed By: #### 1 13312 #### [facility] Services [address] [place] [address] [employer]: Albert Arana MD Urea nitrogen [Mass/Vol] 10 mg/dL Normal 9-23 [facility] Comment on above: Result Comment: - Ve nipuncture should occur prior to N-Acetyl Cysteine (NAC) or Metamizole (Sulpyrine) administration due to the potential for falsely depressed results. - Blood samples from some patients with monoclonal gammopathies may produce falsely elevated results Performed By: #### 1 [id number] #### [facility] Services [address] [place] [address] [employer]: Albert Arana MD Urea nitrogen/Creatinine [Mass ratio] 16.7 mg/mg Normal [facility] Comment on above: Performed By: #### 1 [id number] #### [facility] Laboratory Services [address] [place] [id number] [employer]: Albert Arana MD Discharge Med Summary - Phar chip [employer]bi [employer] 09-15-2024 Discharge Med Summary - Pharmacy - Text Discharge Medication Summary - Pharmacy Entered On: 09/10/2024 13:37 EST Performed On: 09/10/2024 13:34 EST by Christian Santana RPh Discharge Medication Summary - Pharmacy Therapy Type : Discharge Medication Review Preferred Pharmacy : Patient Preferred Pharmacy: Name: [facility][id number] Address: [address] [place] State: [place] Zip: [id number] Phone: [phone] Fax: [phone] Prescriber Response : Accepted Discharge Disposition : [facility]-Extended Care Facility Medication(s) Changed : Yes Medication(s) Changed details : rabeprazole dose, apap dose, bisacodyl dose. eliquis and plavix restart date on med rec, as well. Medication(s) Added : Yes Medication(s) Added details : protonix Medication(s) Discontinued : Yes Medication(s) Discontinued details : mylanta, salonpas, docusate, flonase, loperamide, claritin, nystatin power, fleet enema. Christian Santana RPh - 09/10/2024 13:34 EST Additional Information : 09/15 jmb: no changes since last reviewed. 09/13 jmb: no changes since last reviewed. 09/10 mds- patient presented to [facility] with low hgb/anemia/right sided ab pain. patient okay to be discharged to e[facility] per pharmacy perspective. Triston ClaraAriana - 09/15/2024 9:57 EST Discharge Medication List : Home Medications (19) Active acetaminophen 500 mg oral tablet 1,000 mg = 2 tabs, PRN, ORAL, DAILY acetaminophen-oxycodone 325 mg-5 mg oral tablet = Percocet 1 tabs, PRN, ORAL, [id number] Artificial Tears ophthalmic solution 2 drops, PRN, Both Eyes, [id number] atorvastatin 40 mg oral tablet 40 mg = 1 tabs, ORAL, QHS bisacodyl 10 mg rectal suppository 10 mg = 1 supp, PRN, Rectal, DAILY cholecalciferol 1250 mcg (50,000 intl units) oral capsule 1,250 mcg = 1 caps, ORAL, FRIDAY cyanocobalamin 1000 mcg oral tablet 1,000 mcg = 1 tabs, ORAL, DAILY desvenlafaxine (as succinate) 100 mg oral tablet, extended release 100 mg = 1 tabs, ORAL, DAILY dicyclomine 10 mg oral capsule 20 mg = 2 caps, PRN, ORAL, [id number] Eliquis 2.5 mg oral tablet 2.5 mg = 1 tabs, ORAL, BID hydrOXYzine hydrochloride 25 mg oral tablet 25 mg = 1 tabs, ORAL, BID methocarbamol 750 mg oral tablet 750 mg = 1 tabs, PRN, ORAL, [id number] Milk of Magnesia Conc 10ml =30ml MOM 2.4 g = 10 mL, PRN, ORAL, DAILY MiraLax 17 g, PRN, ORAL, DAILY Plavix 75 mg oral tablet 75 mg = 1 tabs, ORAL, DAILY promethazine 25 mg oral tablet 25 mg = 1 tabs, PRN, ORAL, [id number] Protonix 40 mg oral delayed release tablet 40 mg = 1 tabs, ORAL, BID RABEprazole 20 mg oral delayed release tablet 20 mg = 1 tabs, PRN, ORAL, DAILY Senna S 50 mg-8.6 mg oral tablet 1 tabs, PRN, ORAL, [id number] New Discharge Meds : Medication : RABEprazole- 20 mg 1 tabs, ORAL, DAILY, PRN, Date: 09/04/2024 10:03:00 EST, Tablet EC acetaminophen- 1,000 mg 2 tabs, ORAL, DAILY, PRN, not to exceed 3000 mg/day, Date: 09/04/2024 10:09:00 EST acetaminophen-oxycodone - 1 tabs, ORAL, [id number], PRN PRN Moderate Pain, Refill(s) 0, Date: 09/04/2024 10:01:00 EST apixaban- 2.5 mg 1 tabs, ORAL, BID, RESUME 09/16/24, Date: 09/09/2024 10:25:00 EST, Tablet atorvastatin- 40 mg 1 tabs, ORAL, QHS, Date: 09/04/2024 09:34:00 EST bisacodyl- 10 mg 1 supp, Rectal, DAILY, PRN, 10 supp, Date: 09/04/2024 09:40:00 EST, Suppository cholecalciferol- 1,250 mcg 1 caps, ORAL, FRIDAY, Date: 09/09/2024 10:29:00 EST, Capsule clopidogrel- 75 mg 1 tabs, ORAL, DAILY, RESUME 09/16/24, Date: 09/09/2024 10:26:00 EST, Tablet cyanocobalamin- 1,000 mcg 1 tabs, ORAL, DAILY, Date: 09/04/2024 09:38:00 EST desvenlafaxine- 100 mg 1 tabs, ORAL, DAILY, Date: 09/04/2024 09:39:00 EST dicyclomine- 20 mg 2 caps, ORAL, [id number], PRN, Date: 09/04/2024 09:39:00 EST docusate-senna- 1 tabs, ORAL, [id number], PRN PRN Constipation, Refill(s) 0, Date: 09/04/2024 10:06:00 EST hydrOXYzine- 25 mg 1 tabs, ORAL, BID, Date: 09/04/2024 09:43:00 EST magnesium hydroxide- 10 mL, ORAL, DAILY, PRN PRN Constipation, Refill(s) 0, Date: 09/04/2024 09:54:00 EST methocarbamol- 750 mg 1 tabs, ORAL, [id number], PRN, Date: 09/04/2024 09:52:00 EST ocular lubricant- 2 drops, Both Eyes, [id number], PRN PRN Itching, Refill(s) 0, Date: 09/04/2024 09:33:00 EST pantoprazole- 40 mg 1 tabs, ORAL, BID, 60 tabs, Date: 09/09/2024 09:51:00 EST, Tablet CR polyethylene glycol 3350- 17 g, ORAL, DAILY, PRN, dissolve in water before taking, Date: 09/04/2024 09:55:00 EST, Powder promethazine = Phenergan- 25 mg 1 tabs, ORAL, [id number], PRN, Date: 09/04/2024 10:02:00 EST Smaldino RPChristian dumont - 09/10/2024 13:34 EST Normal [facility] HEMOon 09-15-2024 DIFF? No Normal [facility] Comment on above: Performed By: #### 1 [id number] #### [facility] Services [address] [place] [id number] [employer]: Albert Arana MD Nucleated RBC 0 /100WBC Normal [facility] Comment on above: Performed By: #### 1 [id number] #### [facility] [address] [place] [address] 73417 [employer]: Albert Arana MD [facility] Actions See Notes Abnormal [facility] Comment on above: Result Comment: Scan for RBC Morphology Scan Slide. Perform manual diff if needed. SNV Performed By: #### 1 86380 #### [facility] [address] [place], [place] [address] [employer]: Albert Arana MD Erythrocyte distribution width (RBC) [Ratio] 31.8 % High 11.5-14.5 [facility] Comment on above: Performed By: #### 1 72549 #### [facility] [address] [place] [address] 49154 [employer]: Albert Arana MD Hematocrit (Bld) [Volume fraction] 30.6 % Low 36.0-46.0 [facility] Comment on above: Performed By: #### 1 01211 #### [facility] [address] [place] [address] 19078 [employer]: Albert Arana MD Hemoglobin (Bld) [Mass/Vol] 9.5 g/dL Low 12.0-16.0 [facility] Comment on above: Performed By: #### 1 81671 #### [facility] [address] [place] [address] 96438 [employer]: Albert Arana MD Instr WBC 3.8 Normal [facility] Comment on above: Performed By: #### 1 88649 #### [facility] [address] [place] [address] 13068 [employer]: Albert Arana MD MCH (RBC) [Entitic mass] 26.7 pg Low 27.0-34.0 [facility] Comment on above: Performed By: #### 1 86226 #### [facility] [address] [place] [address] 92929 [employer]: Albert Arana [facility] ([facility]) [Mass/Vol] 31.2 g/dL Low 32.0-37.0 [facility] Comment on above: Performed By: #### 1 64486 #### [facility] [address] [place] [address] 35073 [employer]: Albert Arana MD MCV (RBC) [Entitic vol] 85.4 fL Normal 80.0-100.0 [facility] Comment on above: Performed By: #### 1 13687 #### [facility] [address] [place] [address] 03283 [employer]: Albert Arana MD Platelet 195 x10 Normal 150-450 [facility] Comment on above: Performed By: #### 1 45007 #### [facility] [address] [place] [address] 89957 [employer]: Albert Arana MD Platelet mean volume (Bld) [Entitic vol] 8.1 fL Normal 7.4-10.4 [facility] Comment on above: Performed By: #### 1 76714 #### [facility] [address] [place] [address] 39976 [employer]: Albert Arana MD RBC 3.58 x10 Low 4.20-5.40 [facility] Comment on above: Result Comment: Note : RBC morphology is normal unless otherwise stated. Evaluation performed only if differential is requested. Performed By: #### 1 65344 #### [facility] [address] [place] [address] 16650 [employer]: Albert Arana MD WBC 3.8 x10 Low 4.5-11.0 [facility] Comment on above: Performed By: #### 1 35504 #### [facility] [address] [place] [address] 39723 [employer]: Albert Arana MD Inpatient Patient Summaryon 09-15-2024 Inpatient Patient Summary [facility] Discharge Instructions [address] [place] [address] [id number] (Patient Copy) Name: BRADLEY MATOS : 1965 Diagnosis: Anemia Allergies: Nucynta; iodine; sulfa drugs; tetracycline; propofol; morphine; aspirin; Zantac; Skelaxin; Darvon Registration Date: 09/03/24 Current Date Time: 09/15/2024 10:26:10 Address: [address] [place] [address] Primary Care Provider: Name: EDMUNDO EVANS MD Phone: [phone] Thank you for choosing [facility] for your care. You are very important to us. Our goal is to demonstrate our high quality medical care and provide you with a very good patient experience. You may receive a survey about our service. Please take the time to complete the survey and return it so we can continue to enhance our service. Thank you again for allowing [facility] to care for your medical needs. If you have any questions about your care or follow up information please contact your doctor. Follow-up Instructions The following Appointments have been made for you: Please Note: the first letters listed in the order is the location code, followed by the appointment date, and scheduled provider Future Appointments No Future Appointments Scheduled Provider Follow Ups: With: Address: When: EDDY OVERTON, Gastroenterology [address], [address] [place] [address] Business (1) With: Address: When: EDMUNDO EVANS, Internal Medicine [address] [facility], [address] [place] [address] [phone] Business (1) If you have had an intravenous catheter (IV) during your stay, keep the dressing dry and do not remove it from the site for at least 24 hours or as instructed by your provider to prevent problems. Medication Information Only Take The Medicines On This List. Keep This List and Bring It To Your Next Appointment. Medicines To Take At Home: Medicine Name (Generic Name) Amount to Take How to Take it How Often to Take it Additional Instructions Next Dose Due acetaminophen 500 mg oral tablet (acetaminophen) 1,000 mg By Mouth DAILY Take as needed for Mild Pain not to exceed 3000 mg/day acetaminophen-oxycodone 325 mg-5 mg oral tablet = Percocet (acetaminophen-oxycodon e) 1 tabs By Mouth EVERY SIX HOURS Take as needed for Moderate Pain Eliquis 2.5 mg oral tablet * (apixaban) 2.5 mg By Mouth TWICE A DAY RESUME 09/16/24 atorvastatin 40 mg oral tablet (atorvastatin) 40 mg By Mouth AT BEDTIME bisacodyl 10 mg rectal suppository (bisacodyl) 10 mg Rectal DAILY Take as needed for constipation cholecalciferol 1250 mcg (50,000 intl units) oral capsule * (cholecalciferol) 1,250 mcg By Mouth FRIDAY Plavix 75 mg oral tablet * (clopidogrel) 75 mg By Mouth DAILY RESUME 09/16/24 cyanocobalamin 1000 mcg oral tablet (cyanocobalamin) 1,000 mcg By Mouth DAILY desvenlafaxine (as succinate) 100 mg oral tablet, extended release (desvenlafaxine) 100 mg By Mouth DAILY dicyclomine 10 mg oral capsule (dicyclomine) 20 mg By Mouth EVERY SIX HOURS Take as needed for Cramping Colace 100 mg oral capsule * (docusate) 100 mg By Mouth TWICE A DAY Senna S 50 mg-8.6 mg oral tablet (docusate-senna) 1 tabs By Mouth EVERY EIGHT HOURS Take as needed for Constipation hydrOXYzine hydrochloride 25 mg oral tablet (hydroxyzine) 25 mg By Mouth TWICE A DAY Milk of Magnesia Conc 10ml =30ml MOM (magnesium hydroxide) 2.4 g By Mouth DAILY Take as needed for Constipation methocarbamol 750 mg oral tablet (methocarbamol) 750 mg By Mouth EVERY EIGHT HOURS Take as needed for Mild Joint/Muscle Pain Artificial Tears ophthalmic solution (ocular lubricant) 2 drops Both Eyes EVERY SIX HOURS Take as needed for Itching Protonix 40 mg oral delayed release tablet * (pantoprazole) 40 mg By Mouth TWICE A DAY MiraLax (polyethylene glycol 3350) 17 g By Mouth DAILY Take as needed for constipation dissolve in water before taking promethazine 25 mg oral tablet (promethazine = phenergan) 25 mg By Mouth EVERY SIX HOURS Take as needed for nausea/vomiting RABEprazole 20 mg oral delayed release tablet (rabeprazole) 20 mg By Mouth DAILY Take as needed for Excess stomach acid secretions Understanding your home medicine is important to keeping you healthy. If you are taking medications that are not on the preceding list, please call your doctor to see if you are to continue taking that medication. It is important that you do not skip or make up doses. If you are ordered an antibiotic, finish taking all the medicine unless your doctor tells you otherwise. Call your doctor if you have any questions or problems. Take the medicine list with you to all follow up appointments. Patient education materials, if any, will display below Anemia: Care Instructions Your Care Instructions Anemia is a low level of red blood ce (more content not included)... Normal [facility] Progress Note-Physicianodell Progress Note-Physician BRADLEY MATOS :1965 Registration Date:09/03/2024 Assessment/Plan This Visit Diagnosis Anemia D64.9 Improving Orders: promethazine = Phenergan, 25 mg= 1 supp, Rectal, [id number], PRN YOLI, STAT, 09/14/2024 10:32:00 EST C BLOOD(Blood Cultures SINGLE SET), STAT, 09/14/2024 19:03:00 EST, Specimen type: Blood, Body site: Arm R, Lab to Collect C BLOOD(Blood Cultures SINGLE SET), STAT, 09/14/2024 19:03:00 EST, Specimen type: Blood, Body site: Hand R, Separate Collection, Lab to Collect C URINE, ROUTINE, Lashell Varela, 09/15/2024 05:45:06 EST, Specimen type: CLEAN CATCH, Fever of Unknown Origin CBCWD(CBC WITH DIFF), STAT, 09/14/2024 10:32:00 EST COMPMETA(CMP), STAT, 09/14/2024 10:32:00 EST Discharge Patient per Attending Physician, 09/15/2024 08:53:00 EST, Constant Order, Without Furniture Crater Approval IV Pole and/or Pump, 09/14/2024 19:46:00 EST, Point of Care Unit BASE PUMP and Pole, 1 LIP, STAT, 09/14/2024 10:32:00 EST PCT, ROUTINE, 09/14/2024 19:03:00 EST UA, ROUTINE, Montse Varelae, 09/15/2024 05:45:06 EST 1. New onset fever which has resolved 2. Acute blood loss anemia stable hemoglobin at 10.1. Admission hemoglobin 6.8 3. Morbid obesity sleep apnea 4. 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 Procalcitonin normal 2. Electrolytes normal 3. CBC normal with stable low hemoglobin at 10.1 Subjective This morning no fever no chills. Feels better. Review of Systems Yesterday discharge was canceled because of fever and not feeling well. Objective Vitals & Measurements T: 36.7 ?C (Oral) TMIN: 36.7 ?C (Oral) TMAX: 38.3 ?C (Oral) HR: 92 (Peripheral) BP: 108/69 SpO2: 93% Physical Exam General: alert, no acute distress Skin: warm, dry Head: no trauma, normocephalic Neck: trachea midline, no adenopathy, no tenderness. Eye: Conjunctival pallor. Anicteric sclerae. Cardiovascular: regular rate and rhythm, normal peripheral perfusion. Respiratory: lungs CTA, respirations non labored. Distant breath sounds and clear. Chest Wall: no deformity. Gastrointestinal: soft, non distended, no RUQ tenderness, no RUQ guarding. Extremities: no deformity, no trauma. Neurological: oriented x4, left hemiplegia Psychiatric: cooperative, Medications Inpatient acetaminophen, 1000 mg= 2 tabs, ORAL, BID acetaminophen, 1000 mg= 2 tabs, ORAL, DAILY, PRN acetaminophen-oxycodone (acetaminophen-oxycodon e 325 mg-5 mg oral tablet = Percocet), 1 tabs, ORAL, [id number], PRN Al hydroxide/Mg hydroxide/simethicone(M ylanta = aluminum hydroxide/magnesium hydroxide/simethicone 200 mg-200 mg-20 mg/5 mL oral susp), 30 mL, ORAL, [id number], PRN atorvastatin, 40 mg= 1 tabs, ORAL, QHS bisacodyl, 10 mg= 1 supp, Rectal, DAILY, PRN bisacodyl, 5 mg= 1 tabs, ORAL, [id number], PRN cyanocobalamin, 1000 mcg= 2 tabs, ORAL, DAILY desvenlafaxine, 100 mg= 2 tabs, ORAL, QHS dicyclomine, 20 mg= 2 caps, ORAL, [id number], PRN docusate(Colace), 100 mg= 1 caps, ORAL, BID docusate-senna(Senokot S (docu 50mg/senna 8.6mg)), 1 tabs, ORAL, [id number], PRN fluticasone nasal(fluticasone 50 mcg/inh nasal spray), 1 sprays, Nasal, BID hydrOXYzine(hydrOXYzine hydrochloride = Atarax), 25 mg= 1 tabs, ORAL, BID loperamide, 4 mg= 2 caps, ORAL, PRN, PRN loratadine, 10 mg= 1 tabs, ORAL, DAILY, PRN magnesium hydroxide(Milk of Magnesia Conc 10ml =30ml MOM), 10 mL, ORAL, DAILY, PRN methocarbamol, 750 mg= 1 tabs, ORAL, [id number], PRN nystatin topical = Mycostatin, 1 carola, Topical, TID, PRN ocular lubricant(Artificial Tears), 2 drops, Both Eyes, [id number], PRN pantoprazole, 40 mg= 1 tabs, ORAL, BID polyethylene glycol 3350(MiraLax), 17 g= 1 packets, ORAL, DAILY, PRN promethazine = Phenergan, 25 mg= 1 tabs, ORAL, [id number], PRN promethazine = Phenergan, 25 mg= 1 supp, Rectal, [id number], PRN sodium biphosphate-sodium phosphate(Fleet Phospho Soda Enema), 1 bottles, Rectal, DAILY, PRN Sodium Chloride 0.9%(NS) 1,000 mL(0.9%NaCl (Normal Saline) 1,000 mL), 1000 mL, IV Lab Results Test Name Test Result Date/Time BUN 8 mg/dL 09/14/2024 10:50 EST Na 139 mmol/L 09/14/2024 10:50 EST K4.0 mmol/L 09/14/2024 10:50 EST Chloride 103 mmol/L 09/14/2024 10:50 EST CO2, venous 30.0 mmol/L 09/14/2024 10:50 EST Glucose 183 mg/dL 09/14/2024 10:50 EST Creatinine 0.6 mg/dL 09/14/2024 10:50 EST Estimated Creatinine Clearance 96.78 mL/min 09/14/2024 11:29 EST Total Protein 6.7 g/dL 09/14/2024 10:50 EST Calcium 8.5 mg/dL 09/14/2024 10:50 EST Bilirubin, Total 1.70 mg/dL 09/14/2024 10:50 EST Alk Phos 110 unit/L 09/14/2024 10:50 EST GOT 58 unit/L 09/14/2024 10:50 EST GPT 16 unit/L 09/14/2024 10:50 EST BUN/Creat Ratio 13.3 09/14/2024 10:50 EST Calculated Osmolality 281 mOsm/kg 09/14/2024 10:50 EST Globulin 4.1 g/dL 09/14/2024 10:50 EST A/G Ratio 0.6 09/14/2024 10:50 EST Amylase <20 uni (more content not included)... Normal [facility] UAon 09-15-2024 Appearance, U Clear Normal Clear [facility] Comment on above: Performed By: #### 1 20853 #### [facility] [address] [place] [address] [employer]: Albert Arana MD Bilirubin, U Negative Normal Negative [facility] Comment on above: Result Comment: Bili [place], U: Initial positive urine bilirubin results are not confirmed. Interfering substances may include elevated urobilinogen. Trace = 0.5-1.0 mg/dL Small = 2.0-4.0 mg/dL Moderate = 6.0-8.0 mg/dL Large = 10 mg/dl and greater Performed By: #### 1 17537 #### [facility] [address] [place] [address] 18950 [employer]: Albert Arana MD Blood, U Negative Normal Negative [facility] Comment on above: Result Comment: Bloo d, U: Trace = 0.03-0.05 mg/dL Small = 0.06-0.1 mg/dL Moderate = 0.2-0.5 mg/dL Large = 1.0 mg/dL and greater Performed By: #### 1 66995 #### [facility] [address] [place] [address] 68315 [employer]: Albert Arana MD Color, U Light-Alleghany Abnormal Yellow [facility] Comment on above: Performed By: #### 1 88481 #### [facility] [address] [place] [address] 58238 [employer]: Albert Arana MD Glucose Qual, U Negative Normal Negative [facility] Comment on above: Performed By: #### 1 15605 #### [facility] [address] [place] [address] 39925 [employer]: Albert Arana MD Hyaline Cast <1 Normal [facility] Comment on above: Performed By: #### 1 75555 #### [facility] [address] [place] [address] 12711 [employer]: Albert Arana MD Ketones, U Negative Normal Negative [facility] Comment on above: Performed By: #### 1 66760 #### [facility] [address] [place] [address] 93066 [employer]: Albert Arana MD Leukocyte Esterase, U Negative Normal Negative [facility] Comment on above: Result Comment: Leuk ocyte Esterase, U: Trace = 25 Stephani/uL Small = 75 Stephani/uL Moderate = 250 Stephani/uL Large = 500 Stephani/uL and greater Performed By: #### 1 55453 #### [facility] [address] [place] [address] 30436 [employer]: Albert Arana MD Mucous, U Few Normal [facility] Comment on above: Performed By: #### 1 54921 #### [facility] [address] [place] [address] 60943 [employer]: Albert Arana MD Nitrite, U Negative Normal Negative [facility] Comment on above: Performed By: #### 1 53425 #### [facility] [address] [place] [address] 07008 [employer]: Albert Arana MD pH, U 5.5 Normal 4.5-8.0 [facility] Comment on above: Performed By: #### 1 84750 #### [facility] [address] [place] [address] 28850 [employer]: Albert Arana MD Protein, U 20 mg/dl Abnormal Negative [facility] Comment on above: Performed By: #### 1 02574 #### [facility] [address] [place] [address] 57178 [employer]: Albert Arana MD RBC/HPF, U 5 #/HPF High 0-3 [facility] Comment on above: Performed By: #### 1 01929 #### [facility] [address] [place] [address] 82741 [employer]: Albert Arana MD Specific [place], U 1.026 Normal 1.001-1.035 [facility] Comment on above: Performed By: #### 1 64649 #### [facility] [address] [place] [address] 34913 [employer]: Albert Arana MD Squamous Epithelial Cells, U 1 #/HPF Normal [facility] Comment on above: Performed By: #### 1 75914 #### [facility] [address] [place] [address] 18053 [employer]: Albert Arana MD U MICRO Indicated Normal [facility] Comment on above: Performed By: #### 1 42269 #### [facility] [address] [place] [address] [employer]: Albert Arana MD Urobilinogen Qual, U 2 mg/dl Abnormal < 2 mg/dl [facility] Comment on above: Result Comment: Urob ilinogen, U: EU/dl and mg/dl are equivalent units. Performed By: #### 1 32567 #### [facility] [address] [place] [address] 97730 [employer]: Albert Arana MD WBC/HPF, U 2 #/HPF Normal 0-5 [facility] Comment on above: Performed By: #### 1 08952 #### [facility] [address] [place] [address] 44130 [employer]: Albert Arana MD ACETAMINOPHEN 500 MG TABon 0 09-14-2024 ACETAMINOPHEN 500 MG TAB PRN Response Entered On: 09/14/2024 19:26 EST Performed On: 09/14/2024 18:59 EST by Mini Hale RN Intervention Information: acetaminophen Performed by Mini Hale RN on 09/14/2024 17:59:00 EST acetaminophen,1000mg ORAL,Mild Pain PRN Medication Response PRN Medication used for : Pain PRN Medication Effectiveness : Yes PRN Response Pain Scales : Numeric (8yrs & older) Numeric Pain Scale Age : Numeric (8yrs & older) Comments : pt also had temp of 38.3 at this time Temperature Oral : 38.3 degC(Converted to: 100.9 degF) (HI) Actual time of reassessment : No (not needed time is correct) Mini Hale RN - 09/14/2024 19:25 EST Numeric Pain Scale Numeric Pain Scale : 3 = Mild Pain Numeric Pain Score : 3 Mini Hale RN - 09/14/2024 19:25 EST Normal [facility] Comment on above: Order Comment: ---At home, patient was taking medication with the following details:Special Instructions: not to exceed 3000 mg/day---Check for other orders containing acetaminophen before administering. Max total daily amount is 4000 mg. AMYon 09-14-2024 Amylase <20 Low 30-118 [facility] Comment on above: Performed By: #### 1 07678, 315123, 0636136, 633859, 751594 ####[facility] [address] [place] [address] Medical Director: Albert Arana MD AUTO DIFFon 09-14-2024 Baso Count 0.03 x1000 Normal 0.00-0.20 [facility] Comment on above: Performed By: #### 1 52095, 630428, 7951331, 495091, 620093 ####[facility] [address] [place] [address] Medical Director: Albert Arana MD Basos % 0.6 % Normal [facility] Comment on above: Performed By: #### 1 48970, 641799, 9012907, 595373, 392945 ####[facility] [address] [place] [address] Medical Director: Albert Arana MD Eos Count 0.03 x1000 Normal 0.00-0.50 [facility] Comment on above: Performed By: #### 1 99140, 160632, 2415822, 230043, 668437 ####[facility] [address] [place] [address] Medical Director: Albert Arana MD Eosinophils/100 WBC (Bld) 0.6 % Normal [facility] Comment on above: Performed By: #### 1 09511, 528991, 7602264, 100704, 655176 ####[facility] [address] [place] [address] Medical Director: Albert Arana MD Lymph Count 0.20 x1000 Low 1.20-4.80 [facility] Comment on above: Performed By: #### 1 20846, 666810, 5567019, 601252, 349547 ####[facility] [address] [place] [address] Medical Director: Albert Arana MD Lymphocytes/100 WBC (Bld) 4.2 % Normal [facility] Comment on above: Performed By: #### 1 98850, 223512, 6164286, 838793, 112026 ####[facility] [address] [place] [address] Medical Director: Albert Arana MD [place] Count 0.19 x1000 Normal 0.10-1.00 [facility] Comment on above: Performed By: #### 1 84928, 569693, 2465567, 290773, 815422 ####[facility] [address] [place] [address] Medical Director: Albert Arana MD Monocytes/100 WBC (Bld) 4.2 % Normal [facility] Comment on above: Performed By: #### 1 51224, 482666, 8404971, 306751, 932241 ####[facility] [address] [place] [address] Medical Director: Albert Arana MD Neutrophil Count (ANC) 4.20 x1000 Normal 1.40-8.80 So [facility] Comment on above: Performed By: #### 1 44286, 924945, 5651454, 512054, 769990 ####[facility] [address] [place] [address] Medical Director: Albert Arana MD Neutrophils/100 WBC (Bld) 90.4 % Normal [facility] Comment on above: Performed By: #### 1 10154, 058736, 1912080, 316399, 935206 ####[facility] [address] [place] [address] Medical Director: Albert Arana MD Red Blood Cell Morphology See Notes Abnormal [facility] Comment on above: Result Comment: Anis ocytosis 3+ Polychromasia present Stomatocytes 1+ Performed By: #### 1 23485, 191427, 0249000, 689560, 175468 ####[facility] [address] [place] [address] Medical Director: Albert Arana MD Scan Differential Diff Scd Normal [facility] Comment on above: Result Comment: Slid e reviewed by technologist. Performed By: #### 1 73534, 187062, 8950092, 874646, 841371 ####[facility] [address] [place] [address] Medical Director: Albert Arana MD COMPMETAon 09-14-2024 Albumin [Mass/Vol] 2.6 g/dL Low 3.4-5.0 [facility] Comment on above: Performed By: #### 1 39717, 812050, 6668527, 397526, 760983 ####[facility] [address] [place] [address] Medical Director: Albert Arana MD Albumin/Globulin [Mass ratio] 0.6 {ratio} Normal [facility] Comment on above: Performed By: #### 1 31021, 029189, 0026502, 086623, 698760 ####[facility] [address] [place] [address] Medical Director: Albert Arana MD Alk Phos 110 unit/L Normal 45-117 [facility] Comment on above: Performed By: #### 1 37043, 560968, 9822383, 768128, 684978 ####[facility] [address] [place] [address] Medical Director: Albert Arana MD Bilirubin [Mass/Vol] 1.70 mg/dL High 0.30-1.20 [facility] Comment on above: Result Comment: Use of this assay is not recommended for patients undergoing treatment with eltrombopag due to the potential for falsely elevated results. Performed By: #### 1 51070, 689212, 3745828, 044196, 682857 ####[facility] [address] [place] [address] Medical Director: Albert Arana MD Calcium [Mass/Vol] 8.5 mg/dL Low 8.7-10.4 [facility] Comment on above: Performed By: #### 1 59296, 940706, 0143808, 890855, 380446 ####[facility] [address] [place] [address] Medical Director: Albert Arana MD Chloride [Moles/Vol] 103 mmol/L Normal 98-107 [facility] Comment on above: Performed By: #### 1 02731, 751621, 3050538, 492666, 716658 ####[facility] [address] [place] [address] Medical Director: Albert Arana MD CO2 [Moles/Vol] 30.0 mmol/L Normal 20.0-31.0 [facility] Comment on above: Performed By: #### 1 01864, 240417, 8354283, 997651, 555297 ####[facility] [address] [place] [address] Medical Director: Albert Arana MD Creatinine [Mass/Vol] 0.6 mg/dL Normal 0.5-0.8 [facility] Comment on above: Performed By: #### 1 32717, 502185, 1659024, 379867, 803923 ####[facility] [address] [place] [address] Medical Director: Albert Arana MD GFR AA >60 Normal [facility] Comment on above: Result Comment: Afri can Bhutanese GFR Calc Medical judgement is necessary to interpret GFR. The calculated GFR may not accurately reflect renal status in patients >70 years, women, acutely ill hospitalized patients and patients with acute renal failure or known renal disease. The MDRD GFR formula is valid only for adults greater than 18 years of age. Note: Creatinine clearance (not GFR) should be used for drug dosing. Performed By: #### 1 34833, 079492, 9611321, 472370, 708527 ####[facility] [address] [place] [address] Medical Director: Albert Arana MD Globulin (S) [Mass/Vol] 4.1 g/dL Normal S [facility] Comment on above: Performed By: #### 1 83526, 570013, 7648865, 291555, 124309 ####[facility] [address] [place], [place] [id number]) [phone] Director: Albert Arana MD Glomerular Filtration Rate >60 Normal [facility] Comment on above: Result Comment: Non- GFR Calc Medical judgement is necessary to interpret GFR. The calculated GFR may not accurately reflect renal status in patients >70 years, women, acutely ill hospitalized patients and patients with acute renal failure or known renal disease. The MDRD GFR formula is valid only for adults greater than 18 years of age. Note: Creatinine clearance (not GFR) should be used for drug dosing. Performed By: #### 1 67645, 458273, 4308405, 077269, 020933 ####[facility] [address] [place], [place] [id number]) [phone] Director: Albert Arana MD Glucose [Mass/Vol] 183 mg/dL High 74-106 [facility] Comment on above: Performed By: #### 1 01039, 859520, 3047855, 600525, 509070 ####[facility] [address] [place] [address] Medical Director: Albert Arana MD GOT 58 unit/L High 15-37 [facility] Comment on above: Performed By: #### 1 00862, 139754, 8839857, 599436, 295985 ####[facility] [address] [place] [address] Medical Director: Albert Arana MD GPT 16 unit/L Normal 10-49 [facility] Comment on above: Performed By: #### 1 19882, 781470, 4562432, 642260, 197568 ####[facility] [address] [place] [address] Medical Director: Albert Arana MD Osmolality [Osmolality] 281 mosm/kg Normal 275-295 [facility] Comment on above: Performed By: #### 1 51021, 712965, 1457556, 715448, 452272 ####[facility] [address] [place] [address] Medical Director: Albert Arana MD Potassium [Moles/Vol] 4.0 mmol/L Normal 3.5-5.1 [facility] Comment on above: Performed By: #### 1 93851, 882023, 9532526, 735308, 343405 ####[facility] [address] [place] [address] Medical Director: Albert Arana MD Protein [Mass/Vol] 6.7 g/dL Normal 5.7-8.2 [facility] Comment on above: Result Comment: Tota l Protein results may be increased in patients receiving dextran as a blood volume mental health professional Performed By: #### 1 69934, 268639, 7531105, 910060, 980564 ####[facility] [address] [place] [address] Medical Director: Albert Arana MD Sodium [Moles/Vol] 139 mmol/L Normal 135-145 [facility] Comment on above: Performed By: #### 1 35133, 652541, 5331427, 000747, 088505 ####[facility] [address] [place], [place] [id number]) [phone] Director: Albert Arana MD Urea nitrogen [Mass/Vol] 8 mg/dL Low 9-23 [facility] Comment on above: Result Comment: - Ve nipuncture should occur prior to N-Acetyl Cysteine (NAC) or Metamizole (Sulpyrine) administration due to the potential for falsely depressed results. - Blood samples from some patients with monoclonal gammopathies may produce falsely elevated results Performed By: #### 1 89100, 374396, 5762469, 168832, 744990 ####[facility] [address] [place] [address] Medical Director: Albert Arana MD Urea nitrogen/Creatinine [Mass ratio] 13.3 mg/mg Normal [facility] Comment on above: Performed By: #### 1 21114, 202694, 2037882, 806374, 935793 ####[facility] [address] [place] [id number] Medical Director: Albert Arana MD COVID-19 Molecular SWEDon SARS-CoV-2 (COVID-19) RNA SAVANNAH+probe Ql (Unsp spec) Negative Normal Negative [facility] Comment on above: Result Comment: This assay is designed to detect the RdRp target of SARS-CoV-2 using rapid molecular isothermal amplification technology. A Negative result does not preclude the possibility of COVID 19 infection since the adequacy of sample collection and/or low viral burden may result in the presence of viral nucleic acids below the analytical sensitivity of this test method. Test results should be used along with other clinical and laboratory data in making the diagnosis. This testing was performed in the [facility] laboratory located at [[place] [id number]] Performed By: #### C [id number] #### [facility] [address] [place] [address] [employer]: Albert Arana MD HEMOon 09-14-2024 DIFF? No Normal [facility] Comment on above: Performed By: #### 1 56849, 386907, 6164766, 325133, 532663 #### [facility] [address] [place] [address] [employer]: Albert Arana MD Nucleated RBC 0 /100WBC Normal [facility] Comment on above: Performed By: #### 1 43687, 301100, 5375999, 514117, 588526 #### [facility] [address] [place] [address] [employer]: Albert Arana MD DxH Actions See Notes Abnormal [facility] Comment on above: Result Comment: Scan for RBC Morphology Scan Slide. Perform manual diff if needed. SNV Performed By: #### 1 35222, 056061, 8158506, 743568, 298959 #### [facility] [address] [place] [address] [employer]: Albert Arana MD Erythrocyte distribution width (RBC) [Ratio] 30.4 % High 11.5-14.5 [facility] Comment on above: Performed By: #### 1 94019, 380652, 5258499, 131358, 336453 #### [facility] [address] [place] [address] [employer]: Albert Arana MD Hematocrit (Bld) [Volume fraction] 32.2 % Low 36.0-46.0 [facility] Comment on above: Performed By: #### 1 86648, 955488, 0254524, 815894, 439188 #### [facility] [address] [place] [address] [employer]: Albert Arana MD Hemoglobin (Bld) [Mass/Vol] 10.1 g/dL Low 12.0-16.0 [facility] Comment on above: Performed By: #### 1 46060, 962221, 6851053, 927262, 915932 #### [facility] [address] [place] [address] [employer]: Albert Arana MD Instr WBC 4.6 Normal [facility] Comment on above: Performed By: #### 1 95238, 897707, 6658403, 495791, 204246 #### [facility] [address] [place] [address] [employer]: Albert Arana MD MCH (RBC) [Entitic mass] 26.2 pg Low 27.0-34.0 [facility] Comment on above: Performed By: #### 1 60594, 715717, 0934602, 312819, 004531 #### [facility] [address] [place] [address] [employer]: Albert Arana MD MCHC (RBC) [Mass/Vol] 31.3 g/dL Low 32.0-37.0 [facility] Comment on above: Performed By: #### 1 05202, 368657, 4407243, 194345, 006932 #### [facility] [address] [place] [address] [employer]: Albert Arana MD MCV (RBC) [Entitic vol] 83.5 fL Normal 80.0-100.0 S [facility] Comment on above: Performed By: #### 1 85412, 105934, 8456533, 996332, 385695 #### [facility] [address] [place] [address] [employer]: Albert Arana MD Platelet 183 x10 Normal 150-450 [facility] Comment on above: Performed By: #### 1 72096, 840864, 2273596, 277031, 978688 #### [facility] [address] [place] [address] [employer]: Albert Arana MD Platelet mean volume (Bld) [Entitic vol] 7.8 fL Normal 7.4-10.4 [facility] Comment on above: Performed By: #### 1 79629, 778546, 7361013, 514267, 107973 #### [facility] [address] [place] [address] [employer]: Albert Arana MD RBC 3.86 x10 Low 4.20-5.40 [facility] Comment on above: Result Comment: Note : RBC morphology is normal unless otherwise stated. Evaluation performed only if differential is requested. Performed By: #### 1 23968, 185534, 5503827, 656622, 279333 #### [facility] [address] [place] [address] [employer]: Ablert Arana MD WBC 4.6 x10 Normal 4.5-11.0 [facility] Comment on above: Performed By: #### 1 46339, 833878, 7674417, 555758, 421779 #### [facility] [address] [place] [address] [employer]: Albert Arana MD LIPon 09-14-2024 Lipase [Catalytic activity/Vol] 21 U/L Normal 12-53 [facility] Comment on above: Performed By: #### 1 53975, 301739, 8233418, 724600, 959632 ####[facility] [address] [place] [address] Medical Director: Albert Arana MD Nursing Clinical Noteon Nursing Clinical Note 0900 pt. refused a ll morning medications d/t nausea, requested PRN phenergan for nausea a little while after pt had moderate sized yellow liquid emesis with some relief afterward 1000 checked on pt who continues to c/o nausea and not feeling well, Dr. Ward notified and order for zofran put in, pt stated she can not use zofran or reglan stating it causes projectile vomiting for her, Dr. Ward notified and order was put in for Phenergan suppository. 1500 assisted living care manager set up transport to [facility], Dr. Ward aware of pt condition throughout the day and stated pt is stable to discharge, GI issues are chronice 1700 Temp of 38.3, Page sent out to Dr. Ward to notify [address] Ward, notified of temp 38.3 at 1700, Per Dr. Ward pt not to discharge tonight as previously planned. Mini Hale RN on [facility] Nursing Clinical Note [id number]- pt had emes is episode, aprox. 200cc of undigested food. pt states her stomach feels uneasy, PRN Nausea medication given. pt instructed to call if she starts to feel worse or have any more Vomiting. [facility] Optometric Aide Detailson 2024 Optometric Aide Details Optometric Aide Details Entered On: 09/14/2024 22:06 EST Performed On: 09/14/2024 22:05 EST by Lashell Varela Optometric Aide Details Transport Mode Order Detail EV : Bed Isolation Precautions RTF : Level of Care Order, 09/04/2024 12:25:00 EST, Medical Admit as Inpatient, IV medications, trending H/H, multiple transfusions, Ordered Level of Care Order, 09/03/2024 20:38:00 EST, Observation Outpatient with Observation Services, DEISY DILL, [facility], Ordered Transfer Care of Patient to Attending, 09/03/2024 20:38:00 EST, Upon discharge from the ED, all continued medications and orders become the responsibility of the admitting/attending physician., Ordered Obtain Consent, 09/03/2024 20:37:00 EST, Consent/Refusal for Transfusion of Blood or Blood Products Form [id number], 09/03/2024 20:37:00 EST, Ordered Obtain Consent, 09/03/2024 19:26:00 EST, Obtain Blood Transfusion Consent, 09/03/2024 19:26:00 EST, Ordered Isolation Precaution Order Detail EV : NONE IV Order Detail - EV : Yes Oxygen Order Detail EV : No Order Detail EV : No Pacemaker Order Detail : 0 Optometric Aide Details Review Status : Reviewed, changes made Nurse Collects Blood Specimens : No Lashell Varela - 09/14/2024 22:05 EST [facility] Comment on above: Order Comment: --- At home, patient was taking medication with the following details: Special Instructions: not to exceed 3000 mg/day --- Optometric Aide Details Optometric Aide Details Entered On: 09/14/2024 0:57 EST Performed On: 09/14/2024 0:57 EST by Jc RN, Enjoli Optometric Aide Details Transport Mode Order Detail EV : Bed Isolation Precautions RTF : Level of Care Order, 09/04/2024 12:25:00 EST, Medical Admit as Inpatient, IV medications, trending H/H, multiple transfusions, Ordered Level of Care Order, 09/03/2024 20:38:00 EST, Observation Outpatient with Observation Services, DEISY DILL, [facility], Ordered Transfer Care of Patient to Attending, 09/03/2024 20:38:00 EST, Upon discharge from the ED, all continued medications and orders become the responsibility of the admitting/attending physician., Ordered Obtain Consent, 09/03/2024 20:37:00 EST, Consent/Refusal for Transfusion of Blood or Blood Products Form [id number], 09/03/2024 20:37:00 EST, Ordered Obtain Consent, 09/03/2024 19:26:00 EST, Obtain Blood Transfusion Consent, 09/03/2024 19:26:00 EST, Ordered Isolation Precaution Order Detail EV : NONE IV Order Detail - EV : No Oxygen Order Detail EV : No Order Detail EV : No Pacemaker Order Detail : 0 Optometric Aide Details Review Status : Reviewed, no changes Nurse Collects Blood Specimens : Hali Greene RN, Enjoli - 09/14/2024 0:57 EST Normal [facility] Comment on above: Order Comment: --- At home, patient was taking medication with the following details: Special Instructions: not to exceed 3000 mg/day --- PCTon 09-14-2024 Procalcitonin 0.62 ng/mL Normal [facility] Comment on above: Result Comment: INTE RP DATA Less than or = 0.5 ng/mL Systemic infection (sepsis) is not likely. Local bacterial infection is possible. If PCT is measured very early after a bacterial challenge (usually less than 6 hours), these values may still be low. In this case, PCT should be re-assessed 6-24 hrs later. Greater than 0.5 - less than 2.0 ng/mL Systemic infection (sepsis) is possible, but other conditions are known to elevate PCT as well. The patient should be closely monitored both clinically and by re-assessing PCT within 6-24 hrs. Greater than or = 2.0 - less than 10.0 ng/mL Critical Range Systemic infection (sepsis) is likely, unless other causes are known. High risk for progression to severe systemic infection (severe sepsis/septic shock). Greater than or = 10.0 ng/mL Critical Range Important systemic inflammatory response, almost exclusively due to severe bacterial sepsis or septic shock. High likelihood of severe sepsis or septic shock. Performed By: #### 3 [id number] ####[facility] [address] [place] [id number] Medical Director: Albert Arana MD Progress Note-Physicianon Progress Note-Physician Patient: BRADLEY MATOS Age: 59 years Sex: Female : 1965 Associated Diagnoses: None Author: BROOKLYNN DILL, [facility] Subjective patient was supposed to be discharged today to extended-care facility but noticed to have sudden change in her condition patient spiked temperature. Complaining of some nausea poor appetite to have blood pressure in 90s. Her white count is normal hemoglobin is 10. Holding discharge for a day as per Dr. Villar to Health Status Allergies: Allergic Reactions (Selected) Severity Not Documented Aspirin- N/v. Darvon- No reactions were documented. Iodine- Vomiting. Morphine- No reactions were documented. Nucynta- Swelling. Propofol- No reactions were documented. Skelaxin- Itching. Sulfa drugs- Vomiting. Tetracycline- Hives. Zantac- No reactions were documented. Medications (25) Active Scheduled: (8) ACETAMINOPHEN 500 MG TAB 1,000 mg 2 tabs, ORAL, BID ATORVASTATIN 40MG TAB 40 mg 1 tabs, ORAL, QHS CYANOCOBALAMIN 500MCG TAB 1,000 mcg 2 tabs, ORAL, DAILY DESVENLAFAXINE 50MG CR TAB 100 mg 2 tabs, ORAL, DAILY DOCUSATE SODIUM 100MG CAPSULE 100 mg 1 caps, ORAL, BID FLUTICASONE 0.05% SPRAY 16GM 1 sprays, Nasal, BID HydrOXYzine HCL 25MG TABLET 25 mg 1 tabs, ORAL, BID PANTOPRAZOLE 40MG TAB 40 mg 1 tabs, ORAL, BID Continuous: (0) PRN: (17) ACETAMINOPHEN 500 MG TAB 1,000 mg 2 tabs, ORAL, DAILY ALUM-MAG SIMETHICONE 30 ML 30 mL, ORAL, [id number] APAP 325MG/OXYCODONE 5MG TAB 1 tabs, ORAL, [id number] ARTIFICIAL TEARS 15 ML 2 drops, Both Eyes, [id number] BISACODYL 10MG SUPP 10 mg 1 supp, Rectal, DAILY BISACODYL 5MG TAB 5 mg 1 tabs, ORAL, [id number] DICYCLOMINE 10MG CAPSULE 20 mg 2 caps, ORAL, O6ZXDCF DOCUSATE 50MG/SENNA 8.6MG TABLET 1 tabs, ORAL, A1WNBNA LOPERAMIDE 2MG CAPSULE 4 mg 2 caps, ORAL, PRN LORATADINE 10MG TABLET 10 mg 1 tabs, ORAL, DAILY MAGNESIUM HYDROXIDE 30ML=10ML 10 mL, ORAL, DAILY METHOCARBAMOL 750MG TABLET 750 mg 1 tabs, ORAL, [id number] NYSTATIN POWDER 15GM 1 carola, Topical, TID PHOSPHO SODA ENEMA 1 bottles, Rectal, DAILY POLYETHYLENE GLYCOL 3350- 17 GM PACKET 17 g 1 packets, ORAL, DAILY PROMETHAZINE 25MG SUPPOSITORY 25 mg 1 supp, Rectal, Y0MEUDO PROMETHAZINE 25MG TABLET 25 mg 1 tabs, ORAL, [id number] Objective Vital Signs (last 24 hrs) Last Charted Temp Oral H 38.3 degC (SEP 14 18:59) Heart Rate Peripheral 98 bpm (SEP 14 17:00) SBP 100 mmHg (SEP 14 17:00) DBP 66 mmHg (SEP 14 17:00) General: Alert and oriented. Not in acute distress. HEENT: No pallor, no jaundice. Respiratory: Lungs CTA Cardiovascular: Regular rate and rhythm; no murmur. Gastrointenstinal: Extremities: No pedal edema. Review / Management Labs (Last four charted values) WBC 4.6 (SEP 14) 4.5 (SEP 12) L 4.4 (SEP 09) L 4.1 (SEP 08) Hgb L 10.1 (SEP 14) L 8.8 (SEP 12) L 8.4 (SEP 09) L 8.1 (SEP 09) Hct L 32.2 (SEP 14) L 29.1 (SEP 12) L 27.4 (SEP 09) L 26.1 (SEP 09) Plt 183 (SEP 14) 187 (SEP 12) 153 (SEP 09) L 149 (SEP 08) Na 139 (SEP 14) 142 (SEP 12) 142 (SEP 09) 142 (SEP 08) K 4.0 (SEP 14) 3.7 (SEP 12) L 3.3 (SEP 09) L 3.3 (SEP 08) CO2 30.0 (SEP 14) 31.0 (SEP 12) H 32.0 (SEP 09) 30.0 (SEP 08) Cl 103 (SEP 14) 105 (SEP 12) 103 (SEP 09) 105 (SEP 08) Cr 0.6 (SEP 14) 0.5 (SEP 12) 0.6 (SEP 09) 0.5 (SEP 08) BUN L 8 (SEP 14) L <5 (SEP 12) L <5 (SEP 09) L <5 (SEP 08) Glucose Random H 183 (SEP 14) H 153 (SEP 12) H 168 (SEP 09) H 127 (SEP 08) Mg 1.7 (SEP 05) Phos 3.3 (SEP 09) 3.6 (SEP 08) 3.6 (SEP 07) Ca L 8.5 (SEP 14) L 8.6 (SEP 12) L 8.4 (SEP 09) L 8.5 (SEP 08) INR 1.2 (SEP 03) Impression and Plan Impression: #1 rule out UTI. #2 acute upper GI bleeding due to antral vascular ectasia. #3 iron deficiency anemia. Plan: Would get UA and ASSEMBLYMAN OR WOMAN and blood cultures start her on IV normal saline bolus monitor vital signs hold discharge. Normal [facility] Progress Note-Physician BRADLEY MATOS :1965 Registration Date:09/03/2024 Patient is a temperature of 38.3. A urinalysis and urine culture will be done. Blood cultures and procalcitonin. Patient is discharged discussed with him because of the above. Normal [facility] Progress Note-Physician BRADLEY MATOS :1965 Registration Date:09/03/2024 Patient reportedly had vomiting after he left. That was early this morning. CBC CMP amylase lipase. IV Zofran. Normal [facility] Progress Note-Physician BRADLEY MATOS :1965 Registration Date:09/03/2024 Assessment/Plan This Visit Diagnosis Anemia D64.9 1. Acute blood loss anemia requiring transfusion 2. Iron deficiency 3. Hematuria has resolved 4. Antral vascular ectasia with bleeding. Ablated with APC 5. Morbid obesity sleep apnea 6. 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 Patient to be discharged to extended-care facility 2. Hemoglobin has been stable 3. Normal hematuria 4. Overnight events reviewed 5. Proton pump inhibitor Subjective Overnight events reviewed. No new complaints. Review of Systems All systems reviewed negative except as mentioned Objective Vitals & Measurements T: 37.1 ?C (Oral) TMIN: 36.7 ?C (Oral) TMAX: 37.1 ?C (Oral) HR: 101 (Peripheral) BP: 137/ 81 SpO2: 93% Physical Exam General: alert, no acute distress. Patient is lying flat not acutely short of breath Skin: warm, dry Head: no trauma, normocephalic Neck: trachea midline, no adenopathy, no tenderness. Eye: Conjunctival pallor. Anicteric sclerae Cardiovascular: regular rate and rhythm, normal peripheral perfusion. Respiratory: lungs CTA, respirations non labored. Chest Wall: no deformity. Gastrointestinal: soft, non distended, no RUQ tenderness, no RUQ guarding. Extremities: no deformity, no trauma. Neurological: Alert oriented x 4. Left hemiplegia Psychiatric: cooperative, . Medications Inpatient acetaminophen, 1000 mg= 2 tabs, ORAL, BID acetaminophen, 1000 mg= 2 tabs, ORAL, DAILY, PRN acetaminophen-oxycodone (acetaminophen-oxycodon e 325 mg-5 mg oral tablet = Percocet), 1 tabs, ORAL, [id number], PRN Al hydroxide/Mg hydroxide/simethicone(M ylanta = aluminum hydroxide/magnesium hydroxide/simethicone 200 mg-200 mg-20 mg/5 mL oral susp), 30 mL, ORAL, [id number], PRN atorvastatin, 40 mg= 1 tabs, ORAL, QHS bisacodyl, 10 mg= 1 supp, Rectal, DAILY, PRN bisacodyl, 5 mg= 1 tabs, ORAL, [id number], PRN cyanocobalamin, 1000 mcg= 2 tabs, ORAL, DAILY desvenlafaxine, 100 mg= 2 tabs, ORAL, DAILY dicyclomine, 20 mg= 2 caps, ORAL, S6RQCBG, PRN docusate(Colace), 100 mg= 1 caps, ORAL, BID docusate-senna(Senokot S (docu 50mg/senna 8.6mg)), 1 tabs, ORAL, [id number], PRN fluticasone nasal(fluticasone 50 mcg/inh nasal spray), 1 sprays, Nasal, BID hydrOXYzine(hydrOXYzine hydrochloride = Atarax), 25 mg= 1 tabs, ORAL, BID loperamide, 4 mg= 2 caps, ORAL, PRN, PRN loratadine, 10 mg= 1 tabs, ORAL, DAILY, PRN magnesium hydroxide(Milk of Magnesia Conc 10ml =30ml MOM), 10 mL, ORAL, DAILY, PRN methocarbamol, 750 mg= 1 tabs, ORAL, M6DFOFA, PRN nystatin topical = Mycostatin, 1 carola, Topical, TID, PRN ocular lubricant(Artificial Tears), 2 drops, Both Eyes, A6ZNHBY, PRN pantoprazole, 40 mg= 1 tabs, ORAL, BID polyethylene glycol 3350(MiraLax), 17 g= 1 packets, ORAL, DAILY, PRN promethazine = Phenergan, 25 mg= 1 tabs, ORAL, Y7EDQNF, PRN sodium biphosphate-sodium phosphate(Fleet Phospho Soda Enema), 1 bottles, Rectal, DAILY, PRN Normal [facility] RAP FLU A AND Bon 09-14-2024 Rapid Influenza A Antigen Test Negative Normal [facility] Comment on above: Result Comment: A po sitive Rapid Influenza A Antigen Test indicates the presence of Influenza A. This is a screening test only and should be correlated with the patient's clinical symptoms. Performed By: #### C [id number] #### [facility] [address] [place] [address] [employer]: Albert Arana MD Rapid Influenza B Antigen Test Negative Normal [facility] Comment on above: Result Comment: A po sitive Rapid Influenza B Antigen Test indicates the presence of Influenza B. This is a screening test only and should be correlated with the patients's clinical symptoms. Performed By: #### C [id number] #### [facility] [address] [place], [place] [address] [employer]: Albert Arana MD RFAB INT QC Present Normal [facility] Comment on above: Performed By: #### C [id number] #### [facility] [address] [place], [place] [address] [employer]: Albert Arana MD Utilization Review Noteon Utilization Review Note OBS recommended. OBS ordered. Dx: Anemia. BALDOMERO PLAN. HAS CROSSED 1MN. MEETS HOSPITAL LOC. TX: LOW H&H WITH REPEAT MONITORING, S/P PRBC TRANSFUSION X2. IN AGREEANCRE WITH ADELAIDA/INSOLE AND OUTSOLE PREPARER TO CHANGE TO INPT. INPT LOC VALID. Observ LOC 09/03/24 changed to INPT 09/04/24 [facility] Portal Verified INT adm of 09/04/24 CLIFF REF#[id number] FAXED clinical to [facility] REF#[id number] REF [id number] APPROVAL faxed update REF#[id number] [facility] ACETAMINOPHEN 500 MG TABon 0 09-13-2024 ACETAMINOPHEN 500 MG TAB PRN Response Entered On: 09/13/2024 23:31 EST Performed On: 09/13/2024 21:09 EST by Heike Greene RN Intervention Information: acetaminophen Performed by Heike Greene RN on 09/13/2024 20:09:00 EST acetaminophen,1000mg ORAL PRN Medication Response PRN Medication used for : Pain PRN Medication Effectiveness : Yes PRN Response Pain Scales : Numeric (8yrs & older) Numeric Pain Scale Age : Numeric (8yrs & older) Actual time of reassessment : No (not needed time is correct) Heike Greene RN - 09/13/2024 23:31 EST Numeric Pain Scale Numeric Pain Scale : 0 = No Pain/ Other Indications Numeric Pain Score : 0 Heike Greene RN - 09/13/2024 23:31 EST [facility] Comment on above: Order Comment: ---At home, patient was taking medication with the following details:Special Instructions: not to exceed 3000 mg/day--- ACETAMINOPHEN 500 MG TAB PRN Response Entered On: 09/13/2024 16:55 EST Performed On: 09/13/2024 10:51 EST by Lynne Lora LPN Intervention Information: acetaminophen Performed by Lynne Lora LPN on 09/13/2024 09:51:00 EST acetaminophen,1000mg ORAL PRN Medication Response PRN Medication used for : Pain PRN Medication Effectiveness : Yes PRN Response Pain Scales : Numeric (8yrs & older) Numeric Pain Scale Age : Numeric (8yrs & older) Actual time of reassessment : Yes Lynne Lora LPN - 09/13/2024 16:54 EST Numeric Pain Scale Numeric Pain Scale : 2 = Mild Pain Numeric Pain Score : 2 Lynne Lora LPN - 09/13/2024 16:54 EST [facility] Comment on above: Order Comment: --- At home, patient was taking medication with the following details: Special Instructions: not to exceed 3000 mg/day --- ACETAMINOPHEN 500 MG TAB PRN Response Entered On: 09/13/2024 2:39 EST Performed On: 09/12/2024 22:34 EST by Shante Mosley RN Intervention Information: acetaminophen Performed by Shante Mosley RN on 09/12/2024 21:34:00 EST acetaminophen,1000mg ORAL PRN Medication Response PRN Medication used for : Pain PRN Medication Effectiveness : Yes PRN Response Pain Scales : FLACC (all ages) FLACC Pain Scale Age : FLACC (all ages) Actual time of reassessment : No (not needed time is correct) Shante Mosley RN - 09/13/2024 2:38 EST FLACC Face : No particular expression or smile Legs : Normal position or relaxed Activity : Lying quietly, normal position, moves easily Cry : No cry, awake or asleep Consolability : Content, relaxed Score : 0 Shante Mosley RN - 09/13/2024 2:38 EST [facility] Comment on above: Order Comment: --- At home, patient was taking medication with the following details: Special Instructions: not to exceed 3000 mg/day --- Nursing Clinical Noteon Nursing Clinical Note 0730 Assumed patie nt care, received report from RN. 0952 Patient resting in bed comfortably. A&Ox3. no complaints or needs verbalized at this time. no distress noted. pt took all meds without complications Plan for today: Discussed plan of care IV flushed, patent and capped Full Assessment completed and charted. No questions or concerns at this time. Call light within reach. Continuing to monitor. Bed/Chair alarm on and audible. Lynne Lora LPN on [facility] Nursing Clinical Note 1930 Pt laying in bed watching T.V. No distress noted. Call light in reach. 2133 Assessment complete. Pt medicated per NOV. Pt needs met at this time. Call light in reach. 0215 Pt laying in bed with eyes closed. No s/s of distress noted. Call light in reach. 0650 Pt laying in bed with eyes closed. Respirations even and unlabored. Call light in reach. [facility] Optometric Aide Detailson 01-06- 2025 Optometric Aide Details Optometric Aide Details Entered On: 09/13/2024 2:50 EST Performed On: 09/13/2024 2:49 EST by Shante Mosley RN Optometric Aide Details Transport Mode Order Detail EV : Bed Isolation Precautions RTF : Level of Care Order, 09/04/2024 12:25:00 EST, Medical Admit as Inpatient, IV medications, trending H/H, multiple transfusions, Ordered Level of Care Order, 09/03/2024 20:38:00 EST, Observation Outpatient with Observation Services, DEISY DILL, [facility], Ordered Transfer Care of Patient to Attending, 09/03/2024 20:38:00 EST, Upon discharge from the ED, all continued medications and orders become the responsibility of the admitting/attending physician., Ordered Obtain Consent, 09/03/2024 20:37:00 EST, Consent/Refusal for Transfusion of Blood or Blood Products Form [id number], 09/03/2024 20:37:00 EST, Ordered Obtain Consent, 09/03/2024 19:26:00 EST, Obtain Blood Transfusion Consent, 09/03/2024 19:26:00 EST, Ordered Isolation Precaution Order Detail EV : NONE IV Order Detail - EV : No Oxygen Order Detail EV : No Order Detail EV : No Pacemaker Order Detail : 0 Optometric Aide Details Review Status : Reviewed, no changes Nurse Collects Blood Specimens : No Shante Mosley RN - 09/13/2024 2:49 EST Normal [facility] Comment on above: Order Comment: --- At home, patient was taking medication with the following details: Special Instructions: not to exceed 3000 mg/day --- Progress Note-Physicianon Progress Note-Physician Patient: BRADLEY MATOS Age: 59 years Sex: Female : 1965 Associated Diagnoses: None Author: BROOKLYNN DILL, [facility] Subjective clinically patient is doing well. No GI problem. H&H stable at 8.8. Patient is on Protonix 40 twice daily tolerating diet well. Health Status Allergies: Allergic Reactions (Selected) Severity Not Documented Aspirin- N/v. Darvon- No reactions were documented. Iodine- Vomiting. Morphine- No reactions were documented. Nucynta- Swelling. Propofol- No reactions were documented. Skelaxin- Itching. Sulfa drugs- Vomiting. Tetracycline- Hives. Zantac- No reactions were documented. Medications (24) Active Scheduled: (8) ACETAMINOPHEN 500 MG TAB 1,000 mg 2 tabs, ORAL, BID ATORVASTATIN 40MG TAB 40 mg 1 tabs, ORAL, QHS CYANOCOBALAMIN 500MCG TAB 1,000 mcg 2 tabs, ORAL, DAILY DESVENLAFAXINE 50MG CR TAB 100 mg 2 tabs, ORAL, DAILY DOCUSATE SODIUM 100MG CAPSULE 100 mg 1 caps, ORAL, BID FLUTICASONE 0.05% SPRAY 16GM 1 sprays, Nasal, BID HydrOXYzine HCL 25MG TABLET 25 mg 1 tabs, ORAL, BID PANTOPRAZOLE 40MG TAB 40 mg 1 tabs, ORAL, BID Continuous: (0) PRN: (16) ACETAMINOPHEN 500 MG TAB 1,000 mg 2 tabs, ORAL, DAILY ALUM-MAG SIMETHICONE 30 ML 30 mL, ORAL, [id number] APAP 325MG/OXYCODONE 5MG TAB 1 tabs, ORAL, [id number] ARTIFICIAL TEARS 15 ML 2 drops, Both Eyes, T4RRCBH BISACODYL 10MG SUPP 10 mg 1 supp, Rectal, DAILY BISACODYL 5MG TAB 5 mg 1 tabs, ORAL, [id number] DICYCLOMINE 10MG CAPSULE 20 mg 2 caps, ORAL, [id number] DOCUSATE 50MG/SENNA 8.6MG TABLET 1 tabs, ORAL, G5JUBKS LOPERAMIDE 2MG CAPSULE 4 mg 2 caps, ORAL, PRN LORATADINE 10MG TABLET 10 mg 1 tabs, ORAL, DAILY MAGNESIUM HYDROXIDE 30ML=10ML 10 mL, ORAL, DAILY METHOCARBAMOL 750MG TABLET 750 mg 1 tabs, ORAL, [id number] NYSTATIN POWDER 15GM 1 carola, Topical, TID PHOSPHO SODA ENEMA 1 bottles, Rectal, DAILY POLYETHYLENE GLYCOL 3350- 17 GM PACKET 17 g 1 packets, ORAL, DAILY PROMETHAZINE 25MG TABLET 25 mg 1 tabs, ORAL, [id number] Objective Vital Signs (last 24 hrs) Last Charted Temp Oral 36.7 degC (SEP 13 19:04) Heart Rate Peripheral 89 bpm (SEP 13 19:05) SBP H 135 mmHg (SEP 13 19:04) DBP 79 mmHg (SEP 13 19:04) General: Alert and oriented. Not in acute distress. HEENT: No pallor, no jaundice. Respiratory: Lungs CTA Cardiovascular: Regular rate and rhythm; no murmur. Gastrointenstinal: Abdomen soft nontender bowel sounds are present. Extremities: pedal edema. Review / Management Labs (Last four charted values) WBC 4.5 (SEP 12) L 4.4 (SEP 09) L 4.1 (SEP 08) L 4.2 (SEP 07) Hgb L 8.8 (SEP 12) L 8.4 (SEP 09) L 8.1 (SEP 09) L 8.2 (SEP 09) Hct L 29.1 (SEP 12) L 27.4 (SEP 09) L 26.1 (SEP 09) L 26.1 (SEP 09) Plt 187 (SEP 12) 153 (SEP 09) L 149 (SEP 08) 152 (SEP 07) Na 142 (SEP 12) 142 (SEP 09) 142 (SEP 08) 140 (SEP 07) K 3.7 (SEP 12) L 3.3 (SEP 09) L 3.3 (SEP 08) L 3.2 (SEP 07) CO2 31.0 (SEP 12) H 32.0 (SEP 09) 30.0 (SEP 08) 31.0 (SEP 07) Cl 105 (SEP 12) 103 (SEP 09) 105 (SEP 08) 103 (SEP 07) Cr 0.5 (SEP 12) 0.6 (SEP 09) 0.5 (SEP 08) 0.5 (SEP 07) BUN L <5 (SEP 12) L <5 (SEP 09) L <5 (SEP 08) L 6 (SEP 07) Glucose Random H 153 (SEP 12) H 168 (SEP 09) H 127 (SEP 08) H 160 (SEP 07) Mg 1.7 (SEP 05) Phos 3.3 (SEP 09) 3.6 (SEP 08) 3.6 (SEP 07) Ca L 8.6 (SEP 12) L 8.4 (SEP 09) L 8.5 (SEP 08) L 8.4 (SEP 07) INR 1.2 (SEP 03) Impression and Plan Impression: Acute upper GI bleeding due to gastric antral vascular ectasia. #2 severe iron deficiency anemia. #3 CVA. Plan: Continue on Protonix 40 twice daily waiting for pre-CERT okay for discharge from GI standpoint. Normal [facility] Progress Note-Physician BRADLEY MATOS :1965 Registration Date:09/03/2024 Assessment/Plan This Visit Diagnosis Anemia D64.9 1. Acute renal cell anemia requiring transfusion hemoglobin is stable now. 2. Iron deficiency 3. Hematuria which has resolved 4. Upper endoscopy showing reflux esophagitis. 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 Ablated with APC. 5. Morbid obesity sleep apnea 6. CVA prior to admission with left-sided weakness chronic for the patient Plan 1. Overnight events reviewed. 2. Hemoglobin has been stable at 8.8. 3. Urine has cleared 4. Plan of care discussed with patient this morning 5. Once certifications obtained patient will be able to be discharged Subjective No new complaints. Review of Systems All systems reviewed are negative. No new changes over the past 24 hours. Objective Vitals & Measurements T: 36.6 ?C (Oral) TMIN: 36.5 ?C (Oral) TMAX: 36.7 ?C (Oral) HR: 94 (Peripheral) RR: 16 BP: 138/ 83 SpO2: 95% Physical Exam General: alert, no acute distress Skin: warm, dry Head: no trauma, normocephalic Neck: trachea midline, no adenopathy, no tenderness. Eye: , sclera clear. Conjunctival pallor. Anicteric sclerae Cardiovascular: regular rate and rhythm, normal peripheral perfusion. Respiratory: lungs CTA, respirations non labored. Chest Wall: no deformity. Gastrointestinal: soft, non distended, no RUQ tenderness, no RUQ guarding. Morbidly obese no tenderness Extremities: no deformity, no trauma. Neurological: oriented x4, LOC left-sided weakness present on admission Psychiatric: cooperative, affect appropriate . Medications Inpatient acetaminophen, 1000 mg= 2 tabs, ORAL, BID acetaminophen, 1000 mg= 2 tabs, ORAL, DAILY, PRN acetaminophen-oxycodone (acetaminophen-oxycodon e 325 mg-5 mg oral tablet = Percocet), 1 tabs, ORAL, [id number], PRN Al hydroxide/Mg hydroxide/simethicone(M ylanta = aluminum hydroxide/magnesium hydroxide/simethicone 200 mg-200 mg-20 mg/5 mL oral susp), 30 mL, ORAL, [id number], PRN atorvastatin, 40 mg= 1 tabs, ORAL, QHS bisacodyl, 10 mg= 1 supp, Rectal, DAILY, PRN bisacodyl, 5 mg= 1 tabs, ORAL, [id number], PRN cyanocobalamin, 1000 mcg= 2 tabs, ORAL, DAILY desvenlafaxine, 100 mg= 2 tabs, ORAL, DAILY dicyclomine, 20 mg= 2 caps, ORAL, J9GWLHR, PRN docusate(Colace), 100 mg= 1 caps, ORAL, BID docusate-senna(Senokot S (docu 50mg/senna 8.6mg)), 1 tabs, ORAL, [id number], PRN fluticasone nasal(fluticasone 50 mcg/inh nasal spray), 1 sprays, Nasal, BID hydrOXYzine(hydrOXYzine hydrochloride = Atarax), 25 mg= 1 tabs, ORAL, BID loperamide, 4 mg= 2 caps, ORAL, PRN, PRN loratadine, 10 mg= 1 tabs, ORAL, DAILY, PRN magnesium hydroxide(Milk of Magnesia Conc 10ml =30ml MOM), 10 mL, ORAL, DAILY, PRN methocarbamol, 750 mg= 1 tabs, ORAL, S5JDVMS, PRN nystatin topical = Mycostatin, 1 carola, Topical, TID, PRN ocular lubricant(Artificial Tears), 2 drops, Both Eyes, G9VSNPI, PRN pantoprazole, 40 mg= 1 tabs, ORAL, BID polyethylene glycol 3350(MiraLax), 17 g= 1 packets, ORAL, DAILY, PRN promethazine = Phenergan, 25 mg= 1 tabs, ORAL, [id number], PRN sodium biphosphate-sodium phosphate(Fleet Phospho Soda Enema), 1 bottles, Rectal, DAILY, PRN Lab Results Test Name Test Result Date/Time Estimated Creatinine Clearance 116.14 mL/min 09/12/2024 09:32 EST Normal [facility] ACETAMINOPHEN 500 MG TABon 0 09-12-2024 ACETAMINOPHEN 500 MG TAB PRN Response Entered On: 09/12/2024 18:21 EST Performed On: 09/12/2024 10:33 EST by Lynne Lora LPN Intervention Information: acetaminophen Performed by Lynne Lora LPN on 09/12/2024 09:33:00 EST acetaminophen,1000mg ORAL PRN Medication Response PRN Medication used for : Pain PRN Medication Effectiveness : Yes PRN Response Pain Scales : Numeric (8yrs & older) Numeric Pain Scale Age : Numeric (8yrs & older) Actual time of reassessment : Yes Lynne Lora LPN - 09/12/2024 18:21 EST Numeric Pain Scale Numeric Pain Scale : 3 = Mild Pain Numeric Pain Score : 3 Lynne Lora LPN - 09/12/2024 18:21 EST [facility] Comment on above: Order Comment: --- At home, patient was taking medication with the following details: Special Instructions: not to exceed 3000 mg/day --- ACETAMINOPHEN 500 MG TAB PRN Response Entered On: 09/12/2024 1:06 EST Performed On: 09/12/2024 0:18 EST by Lashell Varela Intervention Information: acetaminophen Performed by Lashell Varela on 09/11/2024 23:18:00 EST acetaminophen,1000mg ORAL PRN Medication Response PRN Medication used for : Pain PRN Medication Effectiveness : Yes PRN Response Pain Scales : Numeric (8yrs & older) Numeric Pain Scale Age : Numeric (8yrs & older) Actual time of reassessment : No (not needed time is correct) Lashell Varela - 09/12/2024 1:06 EST Numeric Pain Scale Numeric Pain Scale : 3 = Mild Pain Numeric Pain Score : 3 Lashell Varela - 09/12/2024 1:06 EST [facility] Comment on above: Order Comment: --- At home, patient was taking medication with the following details: Special Instructions: not to exceed 3000 mg/day --- BASICMETAon 09-12-2024 BUN/Creat Ratio NCAL [facility] Comment on above: Performed By: #### C [id number] #### [facility] [address] [place] [address] [employer]: Albert Araan MD Calcium [Mass/Vol] 8.6 mg/dL Low 8.7-10.4 [facility] Comment on above: Performed By: #### C [id number] #### [facility] [address] [place] [address] [employer]: Albert Arana MD Chloride [Moles/Vol] 105 mmol/L Normal 98-107 [facility] Comment on above: Performed By: #### C [id number] #### [facility] [address] [place] [address] [employer]: Albert Arana MD CO2 [Moles/Vol] 31.0 mmol/L Normal 20.0-31.0 [facility] Comment on above: Performed By: #### C [id number] #### [facility] [address] [place] [address] [employer]: Albert Arana MD Creatinine [Mass/Vol] 0.5 mg/dL Normal 0.5-0.8 [facility] Comment on above: Performed By: #### C [id number] #### [facility] [address] [place] [address] [employer]: Albert Arana MD GFR AA >60 Normal [facility] Comment on above: Result Comment: Afri can Bhutanese GFR Calc Medical judgement is necessary to interpret GFR. The calculated GFR may not accurately reflect renal status in patients >70 years, women, acutely ill hospitalized patients and patients with acute renal failure or known renal disease. The MDRD GFR formula is valid only for adults greater than 18 years of age. Note: Creatinine clearance (not GFR) should be used for drug dosing. Performed By: #### C [id number] #### [facility] [address] [place] [address] [employer]: Albert Arana MD GFR Estimated 127 Normal [facility] Comment on above: Result Comment: The GFR is calculated and is Age, Sex, and Race adjusted. Performed By: #### C [id number] #### [facility] [address] [place] [address] [employer]: Albert Arana MD Glomerular Filtration Rate >60 Normal [facility] Comment on above: Result Comment: Non- GFR Calc Medical judgement is necessary to interpret GFR. The calculated GFR may not accurately reflect renal status in patients >70 years, women, acutely ill hospitalized patients and patients with acute renal failure or known renal disease. The MDRD GFR formula is valid only for adults greater than 18 years of age. Note: Creatinine clearance (not GFR) should be used for drug dosing. Performed By: #### C [id number] #### [facility] [address] [place], [place] [address] [employer]: Albert Arana MD Glucose [Mass/Vol] 153 mg/dL High 74-106 [facility] Comment on above: Performed By: #### C [id number] #### [facility] [address] [place] [address] [employer]: Albert Arana MD Osmolality [Osmolality] 283 mosm/kg Normal 275-295 [facility] Comment on above: Performed By: #### C [id number] #### [facility] [address] [place], [place] [address] [employer]: Albert Arana MD Potassium [Moles/Vol] 3.7 mmol/L Normal 3.5-5.1 [facility] Comment on above: Performed By: #### C [id number] #### [facility] [address] [place] [address] [employer]: Albert Arana MD Sodium [Moles/Vol] 142 mmol/L Normal 135-145 [facility] Comment on above: Performed By: #### C [id number] #### [facility] [address] [place] [address] [employer]: Albert Arana MD Urea nitrogen [Mass/Vol] mg/dL Low 9-23 [facility] Comment on above: Result Comment: - Ve nipuncture should occur prior to N-Acetyl Cysteine (NAC) or Metamizole (Sulpyrine) administration due to the potential for falsely depressed results. - Blood samples from some patients with monoclonal gammopathies may produce falsely elevated results Performed By: #### C [id number] #### [facility] [address] [place] [address] [employer]: Albert Arana [facility] Actions See Notes Abnormal [facility] Comment on above: Result Comment: Scan for RBC Morphology Scan Slide. Perform manual diff if needed. SNV Performed By: #### C [id number] #### [facility] [address] [place] [address] [employer]: Albert Arana MD Erythrocyte distribution width (RBC) [Ratio] 29.6 % High 11.5-14.5 [facility] Comment on above: Performed By: #### C [id number] #### [facility] [address] [place] [address] [employer]: Albert Arana MD Hematocrit (Bld) [Volume fraction] 29.1 % Low 36.0-46.0 [facility] Comment on above: Performed By: #### C [id number] #### [facility] [address] [place] [address] [employer]: Albert Arana MD Hemoglobin (Bld) [Mass/Vol] 8.8 g/dL Low 12.0-16.0 [facility] Comment on above: Performed By: #### C [id number] #### [facility] [address] [place] [address] [employer]: Albert Arana MD Instr WBC ND 4.5 Normal [facility] Comment on above: Performed By: #### C [id number] #### [facility] [address] [place] [address] [employer]: Albert Arana MD MCH (RBC) [Entitic mass] 25.1 pg Low 27.0-34.0 [facility] Comment on above: Performed By: #### C [id number] #### [facility] [address] [place] [address] [employer]: Albert Arana MD MCHC (RBC) [Mass/Vol] 30.2 g/dL Low 32.0-37.0 [facility] Comment on above: Performed By: #### C [id number] #### [facility] [address] [place], [place] [address] [employer]: Albert Arana MD MCV (RBC) [Entitic vol] 83.2 fL Normal 80.0-100.0 [facility] Comment on above: Result Comment: Revi piyushed Performed By: #### C [id number] #### [facility] [address] [place] [address] [employer]: Albert Arana MD Platelet 187 x10 Normal 150-450 [facility] Comment on above: Performed By: #### C [id number] #### [facility] [address] [place] [address] [employer]: Albert Arana MD Platelet mean volume (Bld) [Entitic vol] 8.2 fL Normal 7.4-10.4 [facility] Comment on above: Performed By: #### C [id number] #### [facility] [address] [place] [address] [employer]: Albert Arana MD RBC 3.50 x10 Low 4.20-5.40 [facility] Comment on above: Result Comment: Note : RBC morphology is normal unless otherwise stated. Evaluation performed only if differential is requested. Performed By: #### C [id number] #### [facility] [address] [place], [place] [id number] [employer]: Albert Arana MD WBC 4.5 x10 Normal 4.5-11.0 [facility] Comment on above: Performed By: #### C [id number] #### [facility] [address] [place], [place] [id number] [employer]: Albert Arana MD Progress Note-Bibi Progress Note-Physician BRADLEY MATOS :1965 Registration Date:09/03/2024 Assessment/Plan This Visit Diagnosis Anemia D64.9 1. Iron deficiency anemia 2. Upper GI bleed APC 3. Morbid obesity sleep apnea 4. 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 Overnight events reviewed. 2. Continue Protonix 3. Patient to be discharged to [facility] 4. Follow-up as an outpatient. Subjective Intermittent epigastric pain. No nausea or vomiting. Review of Systems All systems reviewed negative except as mentioned HPI Objective Vitals & Measurements T: 36.7 ?C (Oral) TMIN: 36.4 ?C (Oral) TMAX: 37.5 ?C (Oral) HR: 91 (Peripheral) RR: 17 BP: 104/65 SpO2: 93% Physical Exam General: alert, no acute distress Skin: warm, dry Head: no trauma, normocephalic Neck: trachea midline, no adenopathy, no tenderness. Eye: Pallor l conjunctiva, sclera clear. Cardiovascular: regular rate and rhythm, normal peripheral perfusion. Respiratory: lungs CTA, respirations non labored. Chest Wall: no deformity. Gastrointestinal: soft, non distended, no RUQ tenderness, no RUQ guarding. Extremities: no deformity, no trauma. Neurological: alert oriented x 4. 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 Medications Inpatient acetaminophen, 1000 mg= 2 tabs, ORAL, BID acetaminophen, 1000 mg= 2 tabs, ORAL, DAILY, PRN acetaminophen-oxycodone (acetaminophen-oxycodon e 325 mg-5 mg oral tablet = Percocet), 1 tabs, ORAL, [id number], PRN Al hydroxide/Mg hydroxide/simethicone(M ylanta = aluminum hydroxide/magnesium hydroxide/simethicone 200 mg-200 mg-20 mg/5 mL oral susp), 30 mL, ORAL, A6BFZXT, PRN atorvastatin, 40 mg= 1 tabs, ORAL, QHS bisacodyl, 10 mg= 1 supp, Rectal, DAILY, PRN bisacodyl, 5 mg= 1 tabs, ORAL, [id number], PRN cyanocobalamin, 1000 mcg= 2 tabs, ORAL, DAILY desvenlafaxine, 100 mg= 2 tabs, ORAL, DAILY dicyclomine, 20 mg= 2 caps, ORAL, Z1ECIVQ, PRN docusate(Colace), 100 mg= 1 caps, ORAL, BID docusate-senna(Senokot S (docu 50mg/senna 8.6mg)), 1 tabs, ORAL, U3AYIOH, PRN fluticasone nasal(fluticasone 50 mcg/inh nasal spray), 1 sprays, Nasal, BID hydrOXYzine(hydrOXYzine hydrochloride = Atarax), 25 mg= 1 tabs, ORAL, BID loperamide, 4 mg= 2 caps, ORAL, PRN, PRN loratadine, 10 mg= 1 tabs, ORAL, DAILY, PRN magnesium hydroxide(Milk of Magnesia Conc 10ml =30ml MOM), 10 mL, ORAL, DAILY, PRN methocarbamol, 750 mg= 1 tabs, ORAL, F0ZHDJL, PRN nystatin topical = Mycostatin, 1 carola, Topical, TID, PRN ocular lubricant(Artificial Tears), 2 drops, Both Eyes, [id number], PRN pantoprazole, 40 mg= 1 tabs, ORAL, BID polyethylene glycol 3350(MiraLax), 17 g= 1 packets, ORAL, DAILY, PRN promethazine = Phenergan, 25 mg= 1 tabs, ORAL, Q3CQBWS, PRN sodium biphosphate-sodium phosphate(Fleet Phospho Soda Enema), 1 bottles, Rectal, DAILY, PRN Lab Results Test Name Test Result Date/Time WBC 4.5 x103/uL 09/12/2024 07:11 EST RBC 3.50 x106/uL 09/12/2024 07:11 EST HGB 8.8 g/dL 09/12/2024 07:11 EST HCT 29.1 % 09/12/2024 07:11 EST MCV 83.2 fL 09/12/2024 07:11 EST MCH 25.1 pg 09/12/2024 07:11 EST MCHC 30.2 g/dL 09/12/2024 07:11 EST RDW 29.6 % 09/12/2024 07:11 EST Platelet 187 x103/uL 09/12/2024 07:11 EST MPV 8.2 fL 09/12/2024 07:11 EST Normal [facility] Progress Note-Physician BRADLEY MATOS :1965 Registration Date:09/03/2024 Subjective 1. Acute progressive anemia requiring transfusion 2. Antral vascular ectasia/APC 3. Iron deficiency anemia 4. CVA left-sided weakness Plan 1. On proton pump 2. CBC reviewed normal except a low hemoglobin which is stable. 3. Patient will be discharged to extended-care facility Review of Systems Review of systems no new changes of past 24 hours Objective Vitals & Measurements T: 36.6 ?C (Oral) TMIN: 36.4 ?C (Oral) TMAX: 37 ?C (Oral) HR: 97 (Peripheral) RR: 12 BP: 124/ 81 SpO2: 94% Medications Inpatient acetaminophen, 1000 mg= 2 tabs, ORAL, BID acetaminophen, 1000 mg= 2 tabs, ORAL, DAILY, PRN acetaminophen-oxycodone (acetaminophen-oxycodon e 325 mg-5 mg oral tablet = Percocet), 1 tabs, ORAL, [id number], PRN Al hydroxide/Mg hydroxide/simethicone(M ylanta = aluminum hydroxide/magnesium hydroxide/simethicone 200 mg-200 mg-20 mg/5 mL oral susp), 30 mL, ORAL, Y2XFFIP, PRN atorvastatin, 40 mg= 1 tabs, ORAL, QHS bisacodyl, 10 mg= 1 supp, Rectal, DAILY, PRN bisacodyl, 5 mg= 1 tabs, ORAL, [id number], PRN cyanocobalamin, 1000 mcg= 2 tabs, ORAL, DAILY desvenlafaxine, 100 mg= 2 tabs, ORAL, DAILY dicyclomine, 20 mg= 2 caps, ORAL, [id number], PRN docusate(docusate sodium), 100 mg= 1 caps, ORAL, BID, PRN docusate-senna(Senokot S (docu 50mg/senna 8.6mg)), 1 tabs, ORAL, N6QGQLT, PRN fluticasone nasal(fluticasone 50 mcg/inh nasal spray), 1 sprays, Nasal, BID hydrOXYzine(hydrOXYzine hydrochloride = Atarax), 25 mg= 1 tabs, ORAL, BID loperamide, 4 mg= 2 caps, ORAL, PRN, PRN loratadine, 10 mg= 1 tabs, ORAL, DAILY, PRN magnesium hydroxide(Milk of Magnesia Conc 10ml =30ml MOM), 10 mL, ORAL, DAILY, PRN methocarbamol, 750 mg= 1 tabs, ORAL, I4HEBYL, PRN nystatin topical = Mycostatin, 1 carola, Topical, TID, PRN ocular lubricant(Artificial Tears), 2 drops, Both Eyes, [id number], PRN pantoprazole, 40 mg= 1 tabs, ORAL, BID polyethylene glycol 3350(MiraLax), 17 g= 1 packets, ORAL, DAILY, PRN promethazine = Phenergan, 25 mg= 1 tabs, ORAL, [id number], PRN sodium biphosphate-sodium phosphate(Fleet Phospho Soda Enema), 1 bottles, Rectal, DAILY, PRN Diagnostic Results Oriented x 4. Mild conjunctival pallor. No icterus. Urinalysis was normal. Next physical. Respiratory system good air entry anteriorly. Cardiovascular system normal S1-S24. Abdomen obese nontender. Musculoskeletal EXTR no edema. Neuro alert oriented. Left-sided weakness. Electronically Co-Signed by: DAVID WARD MD on 09/12/2024 08:38 EST Normal [facility] ACETAMINOPHEN 500 MG TABon 0 09-11-2024 ACETAMINOPHEN 500 MG TAB PRN Response Entered On: 09/11/2024 18:43 EST Performed On: 09/11/2024 15:56 EST by Lynne Lora LPN Intervention Information: acetaminophen Performed by Lynne Lora LPN on 09/11/2024 14:56:00 EST acetaminophen,1000mg ORAL PRN Medication Response PRN Medication used for : Pain PRN Medication Effectiveness : Yes PRN Response Pain Scales : Numeric (8yrs & older) Numeric Pain Scale Age : Numeric (8yrs & older) Actual time of reassessment : Yes Lynne Lora LPN - 09/11/2024 18:42 EST Numeric Pain Scale Numeric Pain Scale : 3 = Mild Pain Numeric Pain Score : 3 Lynne Lora LPN - 09/11/2024 18:42 EST [facility] Comment on above: Order Comment: --- At home, patient was taking medication with the following details: Special Instructions: not to exceed 3000 mg/day --- Optometric Aide Detailson 2024 Optometric Aide Details Optometric Aide Details Entered On: 09/11/2024 22:02 EST Performed On: 09/11/2024 22:02 EST by Lashell Varela Optometric Aide Details Transport Mode Order Detail EV : Bed Isolation Precautions RTF : Level of Care Order, 09/04/2024 12:25:00 EST, Medical Admit as Inpatient, IV medications, trending H/H, multiple transfusions, Ordered Level of Care Order, 09/03/2024 20:38:00 EST, Observation Outpatient with Observation Services, DAVID WARD MD, Ordered Transfer Care of Patient to Attending, 09/03/2024 20:38:00 EST, Upon discharge from the ED, all continued medications and orders become the responsibility of the admitting/attending physician., Ordered Obtain Consent, 09/03/2024 20:37:00 EST, Consent/Refusal for Transfusion of Blood or Blood Products Form [id number], 09/03/2024 20:37:00 EST, Ordered Obtain Consent, 09/03/2024 19:26:00 EST, Obtain Blood Transfusion Consent, 09/03/2024 19:26:00 EST, Ordered Isolation Precaution Order Detail EV : NONE IV Order Detail - EV : No Oxygen Order Detail EV : No Order Detail EV : No Pacemaker Order Detail : 0 Optometric Aide Details Review Status : Reviewed, no changes Nurse Collects Blood Specimens : Hali Varela Lashell - 09/11/2024 22:02 EST Normal [facility] Comment on above: Order Comment: --- At home, patient was taking medication with the following details: Special Instructions: not to exceed 3000 mg/day --- Progress Note-Physicianon Progress Note-Physician Patient: BRADLEY MATOS Age: 59 years Sex: Female : 1965 Associated Diagnoses: None Author: BROOKLYNN DILL, [facility] Subjective clinically patient seems to be doing well. Complaining of 4 occasional discomfort and some constipation. Hemoglobin is 8.4. Patient is getting Protonix 40 p.o. twice daily she has severe iron deficiency anemia. Health Status Allergies: Allergic Reactions (Selected) Severity Not Documented Aspirin- N/v. Darvon- No reactions were documented. Iodine- Vomiting. Morphine- No reactions were documented. Nucynta- Swelling. Propofol- No reactions were documented. Skelaxin- Itching. Sulfa drugs- Vomiting. Tetracycline- Hives. Zantac- No reactions were documented. Medications (24) Active Scheduled: (7) ACETAMINOPHEN 500 MG TAB 1,000 mg 2 tabs, ORAL, BID ATORVASTATIN 40MG TAB 40 mg 1 tabs, ORAL, QHS CYANOCOBALAMIN 500MCG TAB 1,000 mcg 2 tabs, ORAL, DAILY DESVENLAFAXINE 50MG CR TAB 100 mg 2 tabs, ORAL, DAILY FLUTICASONE 0.05% SPRAY 16GM 1 sprays, Nasal, BID HydrOXYzine HCL 25MG TABLET 25 mg 1 tabs, ORAL, BID PANTOPRAZOLE 40MG TAB 40 mg 1 tabs, ORAL, BID Continuous: (0) PRN: (17) ACETAMINOPHEN 500 MG TAB 1,000 mg 2 tabs, ORAL, DAILY ALUM-MAG SIMETHICONE 30 ML 30 mL, ORAL, A3AXKGC APAP 325MG/OXYCODONE 5MG TAB 1 tabs, ORAL, W6BUIKQ ARTIFICIAL TEARS 15 ML 2 drops, Both Eyes, F9OIBAX BISACODYL 10MG SUPP 10 mg 1 supp, Rectal, DAILY BISACODYL 5MG TAB 5 mg 1 tabs, ORAL, [id number] DICYCLOMINE 10MG CAPSULE 20 mg 2 caps, ORAL, K0RUSGY DOCUSATE 50MG/SENNA 8.6MG TABLET 1 tabs, ORAL, I2WSUHC DOCUSATE SODIUM 100MG CAPSULE 100 mg 1 caps, ORAL, BID LOPERAMIDE 2MG CAPSULE 4 mg 2 caps, ORAL, PRN LORATADINE 10MG TABLET 10 mg 1 tabs, ORAL, DAILY MAGNESIUM HYDROXIDE 30ML=10ML 10 mL, ORAL, DAILY METHOCARBAMOL 750MG TABLET 750 mg 1 tabs, ORAL, Z6XEBCN NYSTATIN POWDER 15GM 1 carola, Topical, TID PHOSPHO SODA ENEMA 1 bottles, Rectal, DAILY POLYETHYLENE GLYCOL 3350- 17 GM PACKET 17 g 1 packets, ORAL, DAILY PROMETHAZINE 25MG TABLET 25 mg 1 tabs, ORAL, [id number] Objective Vital Signs (last 24 hrs) Last Charted Temp Oral 36.7 degC (SEP 11 15:40) Heart Rate Peripheral 89 bpm (SEP 11 15:40) Resp Rate L 13 br/min (SEP 11 11:00) SBP 103 mmHg (SEP 11 15:25) DBP 65 mmHg (SEP 11 15:25) General: Alert and oriented. Not in acute distress. HEENT: No pallor, no jaundice. Respiratory: Lungs CTA Cardiovascular: Regular rate and rhythm; no murmur. Gastrointenstinal: Extremities: No pedal edema. Review / Management Labs (Last four charted values) WBC L 4.4 (SEP 09) L 4.1 (SEP 08) L 4.2 (SEP 07) L 4.2 (SEP 05) Hgb L 8.4 (SEP 09) L 8.1 (SEP 09) L 8.2 (SEP 09) L 8.1 (SEP 08) Hct L 27.4 (SEP 09) L 26.1 (SEP 09) L 26.1 (SEP 09) L 26.6 (SEP 08) Plt 153 (SEP 09) L 149 (SEP 08) 152 (SEP 07) 166 (SEP 05) Na 142 (SEP 09) 142 (SEP 08) 140 (SEP 07) 141 (SEP 05) K L 3.3 (SEP 09) L 3.3 (SEP 08) L 3.2 (SEP 07) 3.7 (SEP 05) CO2 H 32.0 (SEP 09) 30.0 (SEP 08) 31.0 (SEP 07) 29.0 (SEP 05) Cl 103 (SEP 09) 105 (SEP 08) 103 (SEP 07) 104 (SEP 05) Cr 0.6 (SEP 09) 0.5 (SEP 08) 0.5 (SEP 07) 0.5 (SEP 05) BUN L <5 (SEP 09) L <5 (SEP 08) L 6 (SEP 07) L 7 (SEP 05) Glucose Random H 168 (SEP 09) H 127 (SEP 08) H 160 (SEP 07) H 167 (SEP 05) Mg 1.7 (SEP 05) Phos 3.3 (SEP 09) 3.6 (SEP 08) 3.6 (SEP 07) Ca L 8.4 (SEP 09) L 8.5 (SEP 08) L 8.4 (SEP 07) L 8.6 (SEP 05) INR 1.2 (SEP 03) Impression and Plan Impression: #1 acute upper GI bleeding due to antral vascular ectasia status post ablation with APC. #2 iron deficiency anemia. #3 CVA. Plan: Continue on Protonix 40 p.o. twice daily start her on Colace 100 mg p.o. daily. Will check CBC and BMP in AM. Patient is waiting for pre-CERT for the rehab. Stable from GI standpoint. Normal [facility] ACETAMINOPHEN 500 MG TABon 0 09-10-2024 ACETAMINOPHEN 500 MG TAB PRN Response Entered On: 09/10/2024 21:26 EST Performed On: 09/10/2024 21:01 EST by Lashell Varela Intervention Information: acetaminophen Performed by Lashell Varela on 09/10/2024 20:01:00 EST acetaminophen,1000mg ORAL PRN Medication Response PRN Medication used for : Pain PRN Medication Effectiveness : Yes PRN Response Pain Scales : Numeric (8yrs & older) Numeric Pain Scale Age : Numeric (8yrs & older) Actual time of reassessment : No (not needed time is correct) Lashell Varela - 09/10/2024 21:26 EST Numeric Pain Scale Numeric Pain Scale : 3 = Mild Pain Numeric Pain Score : 3 Lashell Varela - 09/10/2024 21:26 EST [facility] Comment on above: Order Comment: --- At home, patient was taking medication with the following details: Special Instructions: not to exceed 3000 mg/day --- ACETAMINOPHEN 500 MG TAB PRN Response Entered On: 09/10/2024 10:01 EST Performed On: 09/10/2024 9:47 EST by Lelo Tineo LPN Intervention Information: acetaminophen Performed by Lelo Tineo LPN on 09/10/2024 08:47:00 EST acetaminophen,1000mg ORAL PRN Medication Response PRN Medication used for : Pain PRN Medication Effectiveness : Yes PRN Response Pain Scales : Numeric (8yrs & older) Numeric Pain Scale Age : Numeric (8yrs & older) Actual time of reassessment : No (not needed time is correct) Lelo Tineo LPN - 09/10/2024 10:01 EST Numeric Pain Scale Numeric Pain Scale : 3 = Mild Pain Numeric Pain Score : 3 Lelo Tineo LPN - 09/10/2024 10:01 EST [facility] Comment on above: Order Comment: --- At home, patient was taking medication with the following details: Special Instructions: not to exceed 3000 mg/day --- Optometric Aide Detailson 2024 Optometric Aide Details Optometric Aide Details Entered On: 09/10/2024 22:23 EST Performed On: 09/10/2024 22:23 EST by Lashell Varela Optometric Aide Details Transport Mode Order Detail EV : Bed Isolation Precautions RTF : Level of Care Order, 09/04/2024 12:25:00 EST, Medical Admit as Inpatient, IV medications, trending H/H, multiple transfusions, Ordered Level of Care Order, 09/03/2024 20:38:00 EST, Observation Outpatient with Observation Services, DEISY DILL, [facility], Ordered Transfer Care of Patient to Attending, 09/03/2024 20:38:00 EST, Upon discharge from the ED, all continued medications and orders become the responsibility of the admitting/attending physician., Ordered Obtain Consent, 09/03/2024 20:37:00 EST, Consent/Refusal for Transfusion of Blood or Blood Products Form [id number], 09/03/2024 20:37:00 EST, Ordered Obtain Consent, 09/03/2024 19:26:00 EST, Obtain Blood Transfusion Consent, 09/03/2024 19:26:00 EST, Ordered Isolation Precaution Order Detail EV : NONE IV Order Detail - EV : No Oxygen Order Detail EV : No Order Detail EV : No Pacemaker Order Detail : 0 Optometric Aide Details Review Status : Reviewed, no changes Nurse Collects Blood Specimens : Lashell Mccray - 09/10/2024 22:23 EST Normal [facility] Comment on above: Order Comment: --- At home, patient was taking medication with the following details: Special Instructions: not to exceed 3000 mg/day --- Progress Note-Physicianon Progress Note-Physician Patient: BRADLEY MATOS Age: 59 years Sex: Female : 1965 Associated Diagnoses: None Author: BROOKLYNN DILL, [facility] Subjective patient's condition is stable. H&H stable. No evidence of further bleeding. Altering diet well. Health Status Allergies: Allergic Reactions (Selected) Severity Not Documented Aspirin- N/v. Darvon- No reactions were documented. Iodine- Vomiting. Morphine- No reactions were documented. Nucynta- Swelling. Propofol- No reactions were documented. Skelaxin- Itching. Sulfa drugs- Vomiting. Tetracycline- Hives. Zantac- No reactions were documented. Medications (24) Active Scheduled: (7) ACETAMINOPHEN 500 MG TAB 1,000 mg 2 tabs, ORAL, BID ATORVASTATIN 40MG TAB 40 mg 1 tabs, ORAL, QHS CYANOCOBALAMIN 500MCG TAB 1,000 mcg 2 tabs, ORAL, DAILY DESVENLAFAXINE 50MG CR TAB 100 mg 2 tabs, ORAL, DAILY FLUTICASONE 0.05% SPRAY 16GM 1 sprays, Nasal, BID HydrOXYzine HCL 25MG TABLET 25 mg 1 tabs, ORAL, BID PANTOPRAZOLE 40MG TAB 40 mg 1 tabs, ORAL, BID Continuous: (0) PRN: (17) ACETAMINOPHEN 500 MG TAB 1,000 mg 2 tabs, ORAL, DAILY ALUM-MAG SIMETHICONE 30 ML 30 mL, ORAL, O6QVMVO APAP 325MG/OXYCODONE 5MG TAB 1 tabs, ORAL, U1FMJZH ARTIFICIAL TEARS 15 ML 2 drops, Both Eyes, D3SUSXI BISACODYL 10MG SUPP 10 mg 1 supp, Rectal, DAILY BISACODYL 5MG TAB 5 mg 1 tabs, ORAL, P10CCOTR DICYCLOMINE 10MG CAPSULE 20 mg 2 caps, ORAL, P1FZCWX DOCUSATE 50MG/SENNA 8.6MG TABLET 1 tabs, ORAL, Z8CJITO DOCUSATE SODIUM 100MG CAPSULE 100 mg 1 caps, ORAL, BID LOPERAMIDE 2MG CAPSULE 4 mg 2 caps, ORAL, PRN LORATADINE 10MG TABLET 10 mg 1 tabs, ORAL, DAILY MAGNESIUM HYDROXIDE 30ML=10ML 10 mL, ORAL, DAILY METHOCARBAMOL 750MG TABLET 750 mg 1 tabs, ORAL, A1EQNON NYSTATIN POWDER 15GM 1 carola, Topical, TID PHOSPHO SODA ENEMA 1 bottles, Rectal, DAILY POLYETHYLENE GLYCOL 3350- 17 GM PACKET 17 g 1 packets, ORAL, DAILY PROMETHAZINE 25MG TABLET 25 mg 1 tabs, ORAL, Q5QPSVH Objective Vital Signs (last 24 hrs) Last Charted Temp Oral 37 degC (SEP 10 15:05) Heart Rate Peripheral 92 bpm (SEP 10 15:05) Resp Rate 18 br/min (SEP 10 03:25) SBP H 123 mmHg (SEP 10 15:05) DBP 72 mmHg (SEP 10 15:05) General: Alert and oriented. Not in acute distress. HEENT: No pallor, no jaundice. Respiratory: Lungs CTA Cardiovascular: Regular rate and rhythm; no murmur. Gastrointenstinal: Extremities: No pedal edema. Review / Management Labs (Last four charted values) WBC L 4.4 (SEP 09) L 4.1 (SEP 08) L 4.2 (SEP 07) L 4.2 (SEP 05) Hgb L 8.4 (SEP 09) L 8.1 (SEP 09) L 8.2 (SEP 09) L 8.1 (SEP 08) Hct L 27.4 (SEP 09) L 26.1 (SEP 09) L 26.1 (SEP 09) L 26.6 (SEP 08) Plt 153 (SEP 09) L 149 (SEP 08) 152 (SEP 07) 166 (SEP 05) Na 142 (SEP 09) 142 (SEP 08) 140 (SEP 07) 141 (SEP 05) K L 3.3 (SEP 09) L 3.3 (SEP 08) L 3.2 (SEP 07) 3.7 (SEP 05) CO2 H 32.0 (SEP 09) 30.0 (SEP 08) 31.0 (SEP 07) 29.0 (SEP 05) Cl 103 (SEP 09) 105 (SEP 08) 103 (SEP 07) 104 (SEP 05) Cr 0.6 (SEP 09) 0.5 (SEP 08) 0.5 (SEP 07) 0.5 (SEP 05) BUN L <5 (SEP 09) L <5 (SEP 08) L 6 (SEP 07) L 7 (SEP 05) Glucose Random H 168 (SEP 09) H 127 (SEP 08) H 160 (SEP 07) H 167 (SEP 05) Mg 1.7 (SEP 05) Phos 3.3 (SEP 09) 3.6 (SEP 08) 3.6 (SEP 07) Ca L 8.4 (SEP 09) L 8.5 (SEP 08) L 8.4 (SEP 07) L 8.6 (SEP 05) INR 1.2 (SEP 03) Impression and Plan Impression: #1 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 #2 iron deficiency anemia. #3 remote CVA. Plan: Continue on Protonix 40 p.o. twice daily waiting for pre-CERT for rehab center. Normal [facility] Progress Note-Physician BRADLEY MATOS :1965 Registration Date:09/03/2024 Assessment/Plan This Visit Diagnosis Anemia D64.9 Orders: pantoprazole, 40 mg= 1 tabs, ORAL, BID 1. Anemia requiring transfusion 2. 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 Morbid obesity sleep apnea 4. Iron deficiency anemia 5. Hypertension 6. Previous CVA left-sided weakness Plan 1. Patient to be discharged extended-care facility 2. Medications reviewed 3. Hemoglobin has been stable at 8.4. 4. No more hematuria this morning Subjective Anemia requiring transfusion Review of Systems No new changes of past 24 hours Objective Vitals & Measurements T: 36.7 ?C (Oral) TMIN: 36.5 ?C (Oral) TMAX: 37.2 ?C (Oral) HR: 89 (Peripheral) RR: 18 BP: 127/74 SpO2: 94% Physical Exam General: alert, no acute distress Skin: warm, dry Head: no trauma, normocephalic Neck: trachea midline, no adenopathy, no tenderness. Eye: Pallor conjunctiva, sclera clear. Cardiovascular: regular rate and rhythm, normal peripheral perfusion. Respiratory: lungs CTA, respirations non labored. Chest Wall: no deformity. Gastrointestinal: soft, non distended, no RUQ tenderness, no RUQ guarding. Obese nontender bowel sounds normal Extremities: no deformity, no trauma. Neurological: Alert oriented. Left-sided weakness Psychiatric: cooperative, Medications Inpatient acetaminophen, 1000 mg= 2 tabs, ORAL, BID acetaminophen, 1000 mg= 2 tabs, ORAL, DAILY, PRN acetaminophen-oxycodone (acetaminophen-oxycodon e 325 mg-5 mg oral tablet = Percocet), 1 tabs, ORAL, [id number], PRN Al hydroxide/Mg hydroxide/simethicone(M ylanta = aluminum hydroxide/magnesium hydroxide/simethicone 200 mg-200 mg-20 mg/5 mL oral susp), 30 mL, ORAL, E8BDTYV, PRN atorvastatin, 40 mg= 1 tabs, ORAL, QHS bisacodyl, 10 mg= 1 supp, Rectal, DAILY, PRN bisacodyl, 5 mg= 1 tabs, ORAL, [id number], PRN cyanocobalamin, 1000 mcg= 2 tabs, ORAL, DAILY desvenlafaxine, 100 mg= 2 tabs, ORAL, DAILY dicyclomine, 20 mg= 2 caps, ORAL, M0BNHVN, PRN docusate(docusate sodium), 100 mg= 1 caps, ORAL, BID, PRN docusate-senna(Senokot S (docu 50mg/senna 8.6mg)), 1 tabs, ORAL, F8XEMCT, PRN fluticasone nasal(fluticasone 50 mcg/inh nasal spray), 1 sprays, Nasal, BID hydrOXYzine(hydrOXYzine hydrochloride = Atarax), 25 mg= 1 tabs, ORAL, BID loperamide, 4 mg= 2 caps, ORAL, PRN, PRN loratadine, 10 mg= 1 tabs, ORAL, DAILY, PRN magnesium hydroxide(Milk of Magnesia Conc 10ml =30ml MOM), 10 mL, ORAL, DAILY, PRN methocarbamol, 750 mg= 1 tabs, ORAL, U7YOHHG, PRN nystatin topical = Mycostatin, 1 carola, Topical, TID, PRN ocular lubricant(Artificial Tears), 2 drops, Both Eyes, F4EXEDJ, PRN pantoprazole, 40 mg= 1 tabs, ORAL, BID polyethylene glycol 3350(MiraLax), 17 g= 1 packets, ORAL, DAILY, PRN promethazine = Phenergan, 25 mg= 1 tabs, ORAL, B3YJUSB, PRN sodium biphosphate-sodium phosphate(Fleet Phospho Soda Enema), 1 bottles, Rectal, DAILY, PRN Lab Results Test Name Test Result Date/Time HGB 8.4 g/dL 09/09/2024 17:25 EST HGB 8.1 g/dL 09/09/2024 11:23 EST HCT 27.4 % 09/09/2024 17:25 EST HCT 26.1 % 09/09/2024 11:23 EST Normal [facility] ACETAMINOPHEN 500 MG TABon 0 09-09-2024 ACETAMINOPHEN 500 MG TAB PRN Response Entered On: 09/09/2024 21:40 EST Performed On: 09/09/2024 21:05 EST by Lashell Varela Intervention Information: acetaminophen Performed by Lashell Varela on 09/09/2024 20:05:00 EST acetaminophen,1000mg ORAL PRN Medication Response PRN Medication used for : Pain PRN Medication Effectiveness : Yes PRN Response Pain Scales : Numeric (8yrs & older) Numeric Pain Scale Age : Numeric (8yrs & older) Actual time of reassessment : No (not needed time is correct) Varela Lashell - 09/09/2024 21:40 EST Numeric Pain Scale Numeric Pain Scale : 3 = Mild Pain Numeric Pain Score : 3 Avery Lashell - 09/09/2024 21:40 EST Normal [facility] Comment on above: Order Comment: ---At home, patient was taking medication with the following details:Special Instructions: not to exceed 3000 mg/day--- ACETAMINOPHEN 500 MG TAB PRN Response Entered On: 09/09/2024 9:54 EST Performed On: 09/09/2024 9:52 EST by Lelo Tineo LPN Intervention Information: acetaminophen Performed by Lelo Tineo LPN on 09/09/2024 08:52:00 EST acetaminophen,1000mg ORAL PRN Medication Response PRN Medication used for : Pain PRN Medication Effectiveness : Yes PRN Response Pain Scales : Numeric (8yrs & older) Numeric Pain Scale Age : Numeric (8yrs & older) Actual time of reassessment : No (not needed time is correct) Lelo Tineo LPN - 09/09/2024 9:53 EST Numeric Pain Scale Numeric Pain Scale : 3 = Mild Pain Numeric Pain Score : 3 Lelo Tineo LPN - 09/09/2024 9:53 EST [facility] Comment on above: Order Comment: ---At home, patient was taking medication with the following details:Special Instructions: not to exceed 3000 mg/day--- ACETAMINOPHEN 500 MG TAB PRN Response Entered On: 09/09/2024 0:08 EST Performed On: 09/08/2024 21:38 EST by Ariana Decker RN Intervention Information: acetaminophen Performed by Ariana Decker RN on 09/08/2024 20:38:00 EST acetaminophen,1000mg ORAL PRN Medication Response PRN Medication used for : Pain PRN Medication Effectiveness : Yes PRN Response Pain Scales : Numeric (8yrs & older) Numeric Pain Scale Age : Numeric (8yrs & older) Actual time of reassessment : No (not needed time is correct) Ariana Decker RN - 09/09/2024 0:08 EST Numeric Pain Scale Numeric Pain Scale : 1 = Mild Pain Numeric Pain Score : 1 Jeronimo CAIN, Ariana - 09/09/2024 0:08 EST Normal [facility] Comment on above: Order Comment: --- At home, patient was taking medication with the following details: Special Instructions: not to exceed 3000 mg/day --- AUTO DIFFon 09-09-2024 Baso Count 0.04 x1000 Normal 0.00-0.20 [facility] Comment on above: Performed By: #### 1 [id number] ####[facility] [id number] [place] [address] Medical Director: Albert Arana MD Basos % 0.8 % Normal [facility] Comment on above: Performed By: #### 1 [id number] ####[facility] [id number] [place] [id number] Medical Director: Albert Arana MD Eos Count 0.06 x1000 Normal 0.00-0.50 [facility] Comment on above: Performed By: #### 1 [id number] ####[facility] [id number] [place] [id number] Medical Director: Albert Arana MD Eosinophils/100 WBC (Bld) 1.2 % Normal [facility] [facility] Comment on above: Performed By: #### 1 [id number], 308221, [id number] ####[facility] [address] [place] [address] Medical Director: Albert Arana MD Lymph Count 1.01 x1000 Low 1.20-4.80 [facility] Comment on above: Performed By: #### 1 [id number], 750189, [id number] ####[facility] Vmywwbly35502 [place] [address] Medical Director: Albert Arana MD Lymphocytes/100 WBC (Bld) 22.9 % Normal [facility] Comment on above: Performed By: #### 1 705902, 022679, 1925486 ####[facility] Soajfmip53501 [place] [address] Medical Director: Albert Arana MD [place] Count 0.32 x1000 Normal 0.10-1.00 [facility] Comment on above: Performed By: #### 1 287053, 016121, [id number] ####[facility] Nzgomogi30876 [place] [address] Medical Director: Albert Arana MD Monocytes/100 WBC (Bld) 7.2 % Normal [facility] Comment on above: Performed By: #### 1 546684, 014558, [id number] ####[facility] Rsplcoxl73699 [place] [address] Medical Director: Albert Arana MD Neutrophil Count (ANC) 2.98 x1000 Normal 1.40-8.80 So [facility] Comment on above: Performed By: #### 1 770445, 484249, [id number] ####[facility] Qdvsgysz09297 [place] [address] Medical Director: Albert Arana MD Neutrophils/100 WBC (Bld) 67.8 % Normal [facility] Comment on above: Performed By: #### 1 490223, 921811, [id number] ####[facility] Rdh[address]bcq44743 [place] [address] Medical Director: Albert Arana MD Red Blood Cell Morphology See Notes Abnormal [facility] Comment on above: Result Comment: Hypo chromia 1+ Anisocytosis 3+ Polychromasia 1+ Performed By: #### 1 782904, 530660, [id number] ####[facility] Ulgxksmg07229 [place] [address] Medical Director: Albert Arana MD Scan Differential Diff Scd Normal [facility] Comment on above: Result Comment: Slid e reviewed by technologist. Performed By: #### 1 568102, 177795, [id number] ####[facility] Lfc[address]lyd82951 [place] [address] Medical Director: Albert Arana MD Discharge Med Summary - Phar chip - [facility] 09-09-2024 Discharge Med Summary - Pharmacy - Text Discharge Medication Summary - Pharmacy Entered On: 09/09/2024 10:28 EST Performed On: 09/09/2024 10:27 EST by Star Palacio RPh Discharge Medication Summary - Pharmacy Therapy Type : Discharge Medication Intervention Preferred Pharmacy : Patient Preferred Pharmacy: Name: [id number] Address: [address] City: [place] State: [place] Zip: [id number] Phone: [phone] Fax: [phone] Prescriber Response : Modified Pharmacist Intervention Time : 15 Discharge Disposition : ECF-Extended Care Facility Medication(s) Changed : Yes Star Palacio RPh - 09/09/2024 10:27 EST Medication(s) Changed details : 09/09 sanamj Resume dates added on depart to plavix and eliquis per torb with md ward 09/09 bryant resume weekly vit D per torb with Star Santiago RPh - 09/09/2024 10:29 EST Medication(s) Added : Yes Medication(s) Added details : 09/09 bryant PO protonix - w prn rabeprazole per md ward Medication(s) Discontinued : Yes Medication(s) Discontinued details : 09/09 bryant scheduled rabeprazole, mylanta, salonpas patch, colace, flonase, loperamide, claritin, topical nystatin, and fleet enema Additional Information : 1/2 bryant dc to SNF Discharge Medication List : Home Medications (18) Active acetaminophen 500 mg oral tablet 1,000 mg = 2 tabs, PRN, ORAL, DAILY acetaminophen-oxycodone 325 mg-5 mg oral tablet = Percocet 1 tabs, PRN, ORAL, [id number] Artificial Tears ophthalmic solution 2 drops, PRN, Both Eyes, [id number] atorvastatin 40 mg oral tablet 40 mg = 1 tabs, ORAL, QHS bisacodyl 10 mg rectal suppository 10 mg = 1 supp, PRN, Rectal, DAILY cyanocobalamin 1000 mcg oral tablet 1,000 mcg = 1 tabs, ORAL, DAILY desvenlafaxine (as succinate) 100 mg oral tablet, extended release 100 mg = 1 tabs, ORAL, DAILY dicyclomine 10 mg oral capsule 20 mg = 2 caps, PRN, ORAL, [id number] Eliquis 2.5 mg oral tablet 2.5 mg = 1 tabs, ORAL, BID hydrOXYzine hydrochloride 25 mg oral tablet 25 mg = 1 tabs, ORAL, BID methocarbamol 750 mg oral tablet 750 mg = 1 tabs, PRN, ORAL, [id number] Milk of Magnesia Conc 10ml =30ml MOM 2.4 g = 10 mL, PRN, ORAL, DAILY MiraLax 17 g, PRN, ORAL, DAILY Plavix 75 mg oral tablet 75 mg = 1 tabs, ORAL, DAILY promethazine 25 mg oral tablet 25 mg = 1 tabs, PRN, ORAL, [id number] Protonix 40 mg oral delayed release tablet 40 mg = 1 tabs, ORAL, BID RABEprazole 20 mg oral delayed release tablet 20 mg = 1 tabs, PRN, ORAL, DAILY Senna S 50 mg-8.6 mg oral tablet 1 tabs, PRN, ORAL, [id number] New Discharge Meds : Medication : RABEprazole- 20 mg 1 tabs, ORAL, DAILY, PRN, Date: 09/04/2024 10:03:00 EST, Tablet EC acetaminophen- 1,000 mg 2 tabs, ORAL, DAILY, PRN, not to exceed 3000 mg/day, Date: 09/04/2024 10:09:00 EST acetaminophen-oxycodone - 1 tabs, ORAL, [id number], PRN PRN Moderate Pain, Refill(s) 0, Date: 09/04/2024 10:01:00 EST apixaban- 2.5 mg 1 tabs, ORAL, BID, RESUME 09/16/24, Date: 09/09/2024 10:25:00 EST, Tablet atorvastatin- 40 mg 1 tabs, ORAL, QHS, Date: 09/04/2024 09:34:00 EST bisacodyl- 10 mg 1 supp, Rectal, DAILY, PRN, 10 supp, Date: 09/04/2024 09:40:00 EST, Suppository clopidogrel- 75 mg 1 tabs, ORAL, DAILY, RESUME 09/16/24, Date: 09/09/2024 10:26:00 EST, Tablet cyanocobalamin- 1,000 mcg 1 tabs, ORAL, DAILY, Date: 09/04/2024 09:38:00 EST desvenlafaxine- 100 mg 1 tabs, ORAL, DAILY, Date: 09/04/2024 09:39:00 EST dicyclomine- 20 mg 2 caps, ORAL, [id number], PRN, Date: 09/04/2024 09:39:00 EST docusate-senna- 1 tabs, ORAL, [id number], PRN PRN Constipation, Refill(s) 0, Date: 09/04/2024 10:06:00 EST hydrOXYzine- 25 mg 1 tabs, ORAL, BID, Date: 09/04/2024 09:43:00 EST magnesium hydroxide- 10 mL, ORAL, DAILY, PRN PRN Constipation, Refill(s) 0, Date: 09/04/2024 09:54:00 EST methocarbamol- 750 mg 1 tabs, ORAL, [id number], PRN, Date: 09/04/2024 09:52:00 EST ocular lubricant- 2 drops, Both Eyes, C9PZBVG, PRN PRN Itching, Refill(s) 0, Date: 09/04/2024 09:33:00 EST pantoprazole- 40 mg 1 tabs, ORAL, BID, 60 tabs, Date: 09/09/2024 09:51:00 EST, Tablet CR polyethylene glycol 3350- 17 g, ORAL, DAILY, PRN, dissolve in water before taking, Date: 09/04/2024 09:55:00 EST, Powder promethazine = Phenergan- 25 mg 1 tabs, ORAL, A6PEVBZ, PRN, Date: 09/04/2024 10:02:00 EST Star Palacio RPh - 09/09/2024 10:27 EST Normal [facility] H AND Hon 09-09-2024 DxH Actions See Notes Abnormal [facility] Comment on above: Result Comment: Scan for RBC Morphology SNV Performed By: #### 1 [id number] #### [facility] [address] [place] [address] [employer]: Albert Arana MD Hematocrit (Bld) [Volume fraction] 27.4 % Low 36.0-46.0 [facility] Comment on above: Performed By: #### 1 [id number] #### [facility] [address] [place] [address] [employer]: Albert Arana MD Hemoglobin (Bld) [Mass/Vol] 8.4 g/dL Low 12.0-16.0 [facility] Comment on above: Performed By: #### 1 [id number] #### [facility] [address] [place] [address] [employer]: Albert Arana MD Dx Actions See Notes Abnormal [facility] Comment on above: Result Comment: Scan for RBC Morphology SNV Performed By: #### 1 [id number] ####[facility] [address] [place] [address] [id number]) [phone] Director: Albert Arana MD Hematocrit (Bld) [Volume fraction] 26.1 % Low 36.0-46.0 [facility] Comment on above: Performed By: #### 1 54257 ####[facility] [address] [place] [address] [id number]) [phone] Director: Albert Arana MD Hemoglobin (Bld) [Mass/Vol] 8.1 g/dL Low 12.0-16.0 [facility] Comment on above: Performed By: #### 1 59874 ####[facility] [address] [place] [address] [id number]) [phone] Director: Albert Arana MD Dx Actions See Notes Abnormal [facility] Comment on above: Result Comment: Scan for RBC Morphology SNV Performed By: #### C [id number] #### [facility] [address] [place] [address] [employer]: Albert Arana MD Hematocrit (Bld) [Volume fraction] 26.6 % Low 36.0-46.0 [facility] Comment on above: Performed By: #### C [id number] #### [facility] [address] [place] [address] [employer]: Albert Arana MD Hemoglobin (Bld) [Mass/Vol] 8.1 g/dL Low 12.0-16.0 [facility] Comment on above: Performed By: #### C [id number] #### [facility] [address] [place] [address] [employer]: Albert Arana MD HEMOon 09-09-2024 DIFF? No Normal [facility] Comment on above: Performed By: #### 1 746583, 912889, [id number] ####[facility] [address] [place] [address] Medical Director: Albert Arana MD Nucleated RBC 0 /100WBC Normal [facility] Comment on above: Performed By: #### 1 800972, 103850, 5978787 ####[facility] [address] [place] [address] Medical Director: Albert Arana MD Dx Actions See Notes Abnormal [facility] Comment on above: Result Comment: Scan for RBC Morphology SNV Performed By: #### 1 582441, 388693, 6478133 ####[facility] Tlx[address]la37828 [place] [address] Medical Director: Albert Arana MD Erythrocyte distribution width (RBC) [Ratio] 24.9 % High 11.5-14.5 [facility] Comment on above: Performed By: #### 1 288307, 916286, 6903119 ####[facility] [address]zwpjkdd15429 [place], [place] [id number]) [phone] Director: Albert Arana MD Hematocrit (Bld) [Volume fraction] 26.1 % Low 36.0-46.0 [facility] Comment on above: Performed By: #### 1 934447, 438421, 7781051 ####[facility] [address]h07[address] [place], [place] [id number]) [phone] Director: Albert Arana MD Hemoglobin (Bld) [Mass/Vol] 8.2 g/dL Low 12.0-16.0 [facility] Comment on above: Performed By: #### 1 791232, 836335, 9501197 ####[facility] [address] [place] [address] [id number]) [phone] Director: Albert Arana MD Instr WBC 4.4 Normal [facility] Comment on above: Performed By: #### 1 088612, 480432, 9894499 ####[facility] [address] [place] [address] [id number]) [phone] Director: Albert Arana MD MCH (RBC) [Entitic mass] 24.8 pg Low 27.0-34.0 [facility] Comment on above: Performed By: #### 1 543118, 000353, 7534946 ####[facility] [address] [place] [address] [id number]) [phone] Director: Albert Arana MD MCHC (RBC) [Mass/Vol] 31.4 g/dL Low 32.0-37.0 [facility] Comment on above: Performed By: #### 1 736894, 758673, 7332029 ####[facility] [address] [place] [address] [id number]) [phone] Director: Albert Arana MD MCV (RBC) [Entitic vol] 78.9 fL Low 80.0-100.0 [facility] Comment on above: Performed By: #### 1 003193, 491418, [id number] ####[facility] [address]lk[address] [place] [address] Medical Director: Albert Arana MD Platelet 153 x10 Normal 150-450 [facility] Comment on above: Performed By: #### 1 334803, 285448, 6047619 ####[facility] [address] [place] [address] Medical Director: Albert Arana MD Platelet mean volume (Bld) [Entitic vol] 8.8 fL Normal 7.4-10.4 [facility] Comment on above: Performed By: #### 1 500665, 305186, [id number] ####[facility] [address]xtp[address] [place] [address] [facility] Director: Albert Arana MD RBC 3.31 x10 Low 4.20-5.40 [facility] Comment on above: Result Comment: Note : RBC morphology is normal unless otherwise stated. Evaluation performed only if differential is requested. Performed By: #### 1 573309, 144198, 6338936 ####[facility] Wnjspvwe90253 [place] [address] [facility] Director: Albert Arana MD WBC 4.4 x10 Low 4.5-11.0 [facility] Comment on above: Performed By: #### 1 071860, 926250, 1829125 ####[facility] [address] [place], [place] [id number]) [phone] Director: Albert Arana MD Nursing Clinical Noteon Nursing Clinical Note 0900- AM med pass completed with assessment, alert and oriented. Sitting up in bed eating breakfast. H and H q6. Awaiting consults. Respirations even and unlabored on r/a. Patient bedbound from facility. x2 turn assist. Purwick in place for elimination. Iv flushed patent and capped. Bed alarm on. Normal [facility] Optometric Aide Detailson 2024 Optometric Aide Details Optometric Aide Details Entered On: 09/09/2024 22:08 EST Performed On: 09/09/2024 22:07 EST by Lashell Varela Optometric Aide Details Transport Mode Order Detail EV : Bed Isolation Precautions RTF : Level of Care Order, 09/04/2024 12:25:00 EST, Medical Admit as Inpatient, IV medications, trending H/H, multiple transfusions, Ordered Level of Care Order, 09/03/2024 20:38:00 EST, Observation Outpatient with Observation Services, [facility], Ordered Transfer Care of Patient to Attending, 09/03/2024 20:38:00 EST, Upon discharge from the ED, all continued medications and orders become the responsibility of the admitting/attending physician., Ordered Obtain Consent, 09/03/2024 20:37:00 EST, Consent/Refusal for Transfusion of Blood or Blood Products Form [id number], 09/03/2024 20:37:00 EST, Ordered Obtain Consent, 09/03/2024 19:26:00 EST, Obtain Blood Transfusion Consent, 09/03/2024 19:26:00 EST, Ordered Isolation Precaution Order Detail EV : NONE IV Order Detail - EV : No Oxygen Order Detail EV : No Order Detail EV : No Pacemaker Order Detail : 0 Optometric Aide Details Review Status : Reviewed, no changes Nurse Collects Blood Specimens : No Lashell Varela - 09/09/2024 22:07 EST [facility] Comment on above: Order Comment: --- At home, patient was taking medication with the following details: Special Instructions: not to exceed 3000 mg/day --- Optometric Aide Details Optometric Aide Details Entered On: 09/09/2024 0:06 EST Performed On: 09/09/2024 0:06 EST by Ariana Decker RN Optometric Aide Details Transport Mode Order Detail EV : Bed Isolation Precautions RTF : Level of Care Order, 09/04/2024 12:25:00 EST, Medical Admit as Inpatient, IV medications, trending H/H, multiple transfusions, Ordered Level of Care Order, 09/03/2024 20:38:00 EST, Observation Outpatient with Observation Services, [facility], [facility], Ordered Transfer Care of Patient to Attending, 09/03/2024 20:38:00 EST, Upon discharge from the ED, all continued medications and orders become the responsibility of the admitting/attending physician., Ordered Obtain Consent, 09/03/2024 20:37:00 EST, Consent/Refusal for Transfusion of Blood or Blood Products Form [id number], 09/03/2024 20:37:00 EST, Ordered Obtain Consent, 09/03/2024 19:26:00 EST, Obtain Blood Transfusion Consent, 09/03/2024 19:26:00 EST, Ordered Isolation Precaution Order Detail EV : NONE IV Order Detail - EV : No Oxygen Order Detail EV : No Order Detail EV : No Pacemaker Order Detail : 0 Optometric Aide Details Review Status : Reviewed, no changes Nurse Collects Blood Specimens : No Ariana Decker RN - 09/09/2024 0:06 EST Normal [facility] Comment on above: Order Comment: --- At home, patient was taking medication with the following details: Special Instructions: not to exceed 3000 mg/day --- PANTOPRAZOLE 40MG INJECTIONo n 09-09-2024 PANTOPRAZOLE 40MG INJECTION Pharmacy Clinical Interventions Entered On: 09/09/2024 12:59 EST Performed On: 09/09/2024 12:59 EST by Star Palacio RPh Interventions Intervention Type Pharmacy : IV to PO conversion Pharmacy Order Initiated By : Pharmacist Clinical Importance Pharmacy : Potentially minor Prescriber Response Pharmacy : Corrected prior to contact Patient Clinical Outcome Pharmacy : Avoided potential risk Pharmacist Intervention Time : 5 Pharmacy Additional Information : 09/10 bryant protonix Star Palacio RPh - 09/09/2024 12:59 EST [facility] Comment on above: Order Comment: FOR I V PUSH ORDERS: dilute to 10ml with 0.9% SODIUM CHLORIDE,-push over 2 minutes; stable 24 hours; double check med, potential look alike;FOR IV PUSH ORDERS: dilute to 10ml with 0.9% SODIUM CHLORIDE,-push over 2 minutes; stable 24 hours; double check med, potential look alike; Progress Note-Physicianon Progress Note-Physician Patient: BRADLEY MATOS Age: 59 years Sex: Female : 1965 Associated Diagnoses: None Author: BROOKLYNN DILL, [facility] Subjective clinically patient doing well. Hemoglobin stable at 8.4. Received a unit of Venofer 200 mg IV today. On IV Protonix 40 twice daily. Health Status Allergies: Allergic Reactions (Selected) Severity Not Documented Aspirin- N/v. Darvon- No reactions were documented. Iodine- Vomiting. Morphine- No reactions were documented. Nucynta- Swelling. Propofol- No reactions were documented. Skelaxin- Itching. Sulfa drugs- Vomiting. Tetracycline- Hives. Zantac- No reactions were documented. Medications (25) Active Scheduled: (8) ACETAMINOPHEN 500 MG TAB 1,000 mg 2 tabs, ORAL, BID ATORVASTATIN 40MG TAB 40 mg 1 tabs, ORAL, QHS CYANOCOBALAMIN 500MCG TAB 1,000 mcg 2 tabs, ORAL, DAILY DESVENLAFAXINE 50MG CR TAB 100 mg 2 tabs, ORAL, DAILY FLUTICASONE 0.05% SPRAY 16GM 1 sprays, Nasal, BID HydrOXYzine HCL 25MG TABLET 25 mg 1 tabs, ORAL, BID PANTOPRAZOLE 40MG INJECTION 40 mg, IV Push, [id number] PANTOPRAZOLE 40MG TAB 40 mg 1 tabs, ORAL, BID Continuous: (0) PRN: (17) ACETAMINOPHEN 500 MG TAB 1,000 mg 2 tabs, ORAL, DAILY ALUM-MAG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 deformity. Neurologic: Alert. Assessment anemia, gi bleed, incontinence Plan current care, ua requested Normal [facility] Progress Note-Physician BRADLEY MATOS :1965 Registration Date:09/03/2024 Assessment/Plan This Visit Diagnosis Anemia D64.9 Requiring transfusion Orders: Sodium Chloride 0.9%(NS) 250 mL(0.9%NaCl (Normal Saline) 250 mL), 250 mL, IV ABORH, STAT, 09/07/2024 13:24:00 EST ABSC, STAT, 09/07/2024 13:24:00 EST CBCWD(CBC WITH DIFF), ROUTINE, 09/08/2024 06:00:00 EST Consult Physician, 09/07/2024 09:52:00 EST, MICHAEL DILL, RICHARD R, HEMATURIA IS XM, STAT, 09/07/2024 13:24:00 EST, 1 Units [facility] ONE [facility] Task(Confirm Type and Crossmatch order with Blood Bank), Confirm Type and Crossmatch order with Blood Bank, 09/07/2024 13:26:00 EST, 09/07/2024 13:26:00 EST, 09/07/2024 13:26:00 EST [facility] ONE [facility] Task(Give Patient Education Titles:), Give Patient Education Titles:, 09/07/2024 13:26:00 EST, Blood Transfusion Information [facility] (Custom) and Post Transfusion Discharge Instructions [facility] (Custom), 09/07/2024 13:26:00 EST, 09/07/2024 13:26:00 EST [facility] ONE TIME Task(Order H&H), Order H&H, 09/07/2024 13:26:00 EST, If Physician order is for multi-unit Leuko Reduced PRBC transfusion, 60 mins after first unit completed, 09/07/2024 13:26:00 EST, 09/07/2024 13:26:00 EST Obtain Consent, 09/07/2024 13:24:00 EST, Obtain Blood Transfusion Consent, 09/07/2024 13:24:00 EST Obtain Consent, 09/07/2024 13:26:00 EST, Consent/Refusal for Transfusion of Blood or Blood Products Form [id number], 09/07/2024 13:26:00 EST RBC Transfusion Request Active Bleeding, 1, STAT, 09/07/2024 13:26:00 EST, Hgb less than 8g/dl or Hct less than 24%, In a pt with CAD, Unstable Angina, [place] or Cardiogenic Shock. RENAL PNL(RENAL FUNCTION PANEL), ROUTINE, 09/08/2024 06:00:00 EST 1. Acute blood loss anemia requiring transfusion 2. 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 Hematuria 4. Iron deficiency anemia 5. Morbid obesity sleep apnea 6. CVA left-sided weakness/hypertension/h yperlipidemia. Plan 1. Electrolytes normal except potassium 3.3. 2. CBC shows pancytopenia white count 4.1 hemoglobin 8 platelet count 149,000. 3. IV Protonix 4. Patient should have a stable hemoglobin prior to discharge. 5. Plan of care discussed with patient 6. Replace potassium 7. CBC renal panel Subjective No abdominal pain. Feels weak tired. Review of Systems All systems reviewed are negative except as mentioned Objective Vitals & Measurements T: 36.4 ?C (Oral) TMIN: 36.4 ?C (Oral) TMAX: 37.2 ?C (Oral) HR: 85 (Peripheral) RR: 18 BP: 97/66 SpO2: 92% Physical Exam General: alert, no acute distress Skin: warm, dry Head: no trauma, normocephalic Neck: trachea midline, no adenopathy, no tenderness. Eye: Pallor conjunctiva, sclera clear. Cardiovascular: regular rate and rhythm, normal peripheral perfusion. Respiratory: lungs CTA, respirations non labored. Chest Wall: no deformity. Gastrointestinal: soft, non distended, no RUQ tenderness, no RUQ guarding. Obese nontender Extremities: no deformity, no trauma. Neurological: oriented x4, LOC appropriate for age, left-sided weakness Psychiatric: cooperative, affect appropriate for age, . Medications Inpatient acetaminophen, 1000 mg= 2 tabs, ORAL, BID acetaminophen, 1000 mg= 2 tabs, ORAL, DAILY, PRN acetaminophen-oxycodone (acetaminophen-oxycodon e 325 mg-5 mg oral tablet = Percocet), 1 tabs, ORAL, [id number], PRN Al hydroxide/Mg hydroxide/simethicone(M ylanta = aluminum hydroxide/magnesium hydroxide/simethicone 200 mg-200 mg-20 mg/5 mL oral susp), 30 mL, ORAL, [id number], PRN atorvastatin, 40 mg= 1 tabs, ORAL, QHS bisacodyl, 10 mg= 1 supp, Rectal, DAILY, PRN bisacodyl, 5 mg= 1 tabs, ORAL, [id number], PRN cyanocobalamin, 1000 mcg= 2 tabs, ORAL, DAILY desvenlafaxine, 100 mg= 2 tabs, ORAL, DAILY dicyclomine, 20 mg= 2 caps, ORAL, [id number], PRN docusate(docusate sodium), 100 mg= 1 caps, ORAL, BID, PRN docusate-senna(Senokot S (docu 50mg/senna 8.6mg)), 1 tabs, ORAL, [id number], PRN fluticasone nasal(fluticasone 50 mcg/inh nasal spray), 1 sprays, Nasal, BID hydrOXYzine(hydrOXYzine hydrochloride = Atarax), 25 mg= 1 tabs, ORAL, BID loperamide, 4 mg= 2 caps, ORAL, PRN, PRN loratadine, 10 mg= 1 tabs, ORAL, DAILY, PRN magnesium hydroxide(Milk of Magnesia Conc 10ml =30ml MOM), 10 mL, ORAL, DAILY, PRN methocarbamol, 750 mg= 1 tabs, ORAL, [id number], PRN nystatin topical = Mycostatin, 1 carola, Topical, TID, PRN ocular lubricant(Artificial Tears), 2 drops, Both Eyes, [id number], PRN pantoprazole(Protonix), 40 mg, IV Push, [id number] polyethylene glycol 3350(MiraLax), 17 g= 1 packets, ORAL, DAILY, PRN promethazine = Phenergan, 25 mg= 1 tabs, ORAL, [id number], PRN sodium biphosphate-sodium phosphate(Fleet Phospho Soda Enema), 1 bottles, Rectal, DAILY, PRN Sodium Chloride 0.9%(NS) 250 mL(0.9%NaCl (Normal Saline) 250 mL), 250 mL, IV Sodium Chloride 0.9%(NS) 250 mL(0.9%NaCl (Normal Saline) 250 (more content not included)... Normal [facility] RENAL PNLon 09-08-2024 Albumin [Mass/Vol] 2.5 g/dL Low 3.4-5.0 [facility] Comment on above: Performed By: #### 1 [id number] #### [facility] [address] [place] [address] 17808 [employer]: Albert Arana MD BUN/Creat Ratio NCAL Normal [facility] Comment on above: Performed By: #### 1 64232 #### [facility] [address] [place] [address] 08778 [employer]: Albert Arana MD Calcium [Mass/Vol] 8.5 mg/dL Low 8.7-10.4 [facility] Comment on above: Performed By: #### 1 03410 #### [facility] [address] [place] [address] 68153 [employer]: Albert Arana MD Calcium [Mass/Vol] 9.7 mg/dL Normal 8.5-10.5 [facility] Comment on above: Performed By: #### 1 32489 #### [facility] [address] [place] [address] 04250 [employer]: Albert Arana MD Chloride [Moles/Vol] 105 mmol/L Normal 98-107 [facility] Comment on above: Performed By: #### 1 20812 #### [facility] [address] [place] [address] 13502 [employer]: Albert Arana MD CO2 [Moles/Vol] 30.0 mmol/L Normal 20.0-31.0 [facility] Comment on above: Performed By: #### 1 38736 #### [facility] [address] [place] [address] 00184 [employer]: Albert Arana MD Creatinine [Mass/Vol] 0.5 mg/dL Normal 0.5-0.8 [facility] Comment on above: Performed By: #### 1 16333 #### [facility] [address] [place] [address] [employer]: Albert Arana MD GFR AA >60 Normal [facility] Comment on above: Result Comment: Afri can Bhutanese GFR Calc Medical judgement is necessary to interpret GFR. The calculated GFR may not accurately reflect renal status in patients >70 years, women, acutely ill hospitalized patients and patients with acute renal failure or known renal disease. The MDRD GFR formula is valid only for adults greater than 18 years of age. Note: Creatinine clearance (not GFR) should be used for drug dosing. Performed By: #### 1 32637 #### [facility] [address] [place] [address] 99231 [employer]: Albert Arana MD GFR Estimated 127 Normal [facility] Comment on above: Result Comment: The GFR is calculated and is Age, Sex, and Race adjusted. Performed By: #### 1 67917 #### [facility] [address] [place] [address] 37900 [employer]: Albert Arana MD Glomerular Filtration Rate >60 Normal [facility] Comment on above: Result Comment: Non- GFR Calc Medical judgement is necessary to interpret GFR. The calculated GFR may not accurately reflect renal status in patients >70 years, women, acutely ill hospitalized patients and patients with acute renal failure or known renal disease. The MDRD GFR formula is valid only for adults greater than 18 years of age. Note: Creatinine clearance (not GFR) should be used for drug dosing. Performed By: #### 1 71409 #### [facility] [address] [place] [address] 96686 [employer]: Albert Arana MD Glucose [Mass/Vol] 127 mg/dL High 74-106 [facility] Comment on above: Performed By: #### 1 46554 #### [facility] [address] [place] [address] 62381 [employer]: Albert Arana MD Osmolality [Osmolality] 282 mosm/kg Normal 275-295 [facility] Comment on above: Performed By: #### 1 11346 #### [facility] [address] [place] [address] [employer]: Albert Arana MD Phosphate [Mass/Vol] 3.6 mg/dL Normal 2.0-5.1 [facility] Comment on above: Result Comment: Bloo d samples from some patients with monoclonal gammopathies may produce falsely elevated results Performed By: #### 1 17208 #### [facility] [address] [place] [address] 44012 [employer]: Albert Arana MD Potassium [Moles/Vol] 3.3 mmol/L Low 3.5-5.1 [facility] Comment on above: Performed By: #### 1 75699 #### [facility] [address] [place] [address] 02984 [employer]: Albert Arana MD Sodium [Moles/Vol] 142 mmol/L Normal 135-145 [facility] Comment on above: Performed By: #### 1 57425 #### [facility] [address] [place] [address] 22161 [employer]: Albert Arana MD Urea nitrogen [Mass/Vol] mg/dL Low 9-23 [facility] Comment on above: Result Comment: - Ve nipuncture should occur prior to N-Acetyl Cysteine (NAC) or Metamizole (Sulpyrine) administration due to the potential for falsely depressed results. - Blood samples from some patients with monoclonal gammopathies may produce falsely elevated results Performed By: #### 1 69873 #### [facility] [address] [place] [address] 19971 [employer]: Albert Arana MD UAon 09-08-2024 Appearance, U Clear Normal Clear [facility] Comment on above: Performed By: #### 1 62625 #### [facility] [address] [place] [address] 42894 [employer]: Albert Arana MD Bilirubin, U Negative Normal Negative [facility] Comment on above: Result Comment: Bili [place], U: Initial positive urine bilirubin results are not confirmed. Interfering substances may include elevated urobilinogen. Trace = 0.5-1.0 mg/dL Small = 2.0-4.0 mg/dL Moderate = 6.0-8.0 mg/dL Large = 10 mg/dl and greater Performed By: #### 1 75003 #### [facility] [address] [place], [place] [address] [employer]: Albert Arana MD Blood, U Negative Normal Negative [facility] Comment on above: Result Comment: Bloo d, U: Trace = 0.03-0.05 mg/dL Small = 0.06-0.1 mg/dL Moderate = 0.2-0.5 mg/dL Large = 1.0 mg/dL and greater Performed By: #### 1 51141 #### [facility] [address] [place], [place] [address] [employer]: Albert Arana MD Color, U Light-Yellow Normal Yellow [facility] Comment on above: Performed By: #### 1 71881 #### [facility] [address] [place] [address] [employer]: Albert Arana MD Glucose Qual, U Negative Normal Negative [facility] Comment on above: Performed By: #### 1 31622 #### [facility] [address] [place] [address] [employer]: Albert Arana MD Ketones, U Negative Normal Negative [facility] Comment on above: Performed By: #### 1 42519 #### [facility] [address] [place] [address] 52608 [employer]: Albert Arana MD Leukocyte Esterase, U Negative Normal Negative [facility] Comment on above: Result Comment: Leuk ocyte Esterase, U: Trace = 25 Stephani/uL Small = 75 Stephani/uL Moderate = 250 Stephani/uL Large = 500 Stephani/uL and greater Performed By: #### 1 61102 #### [facility] [address] [place] [address] 92415 [employer]: Albert Arana MD Nitrite, U Negative Normal Negative [facility] Comment on above: Performed By: #### 1 93439 #### [facility] [address] [place] [address] 11504 [employer]: Albert Arana MD pH, U 6.0 Normal 4.5-8.0 [facility] Comment on above: Performed By: #### 1 20044 #### [facility] [address] [place] [address] 76351 [employer]: Albert Arana MD Protein, U Negative Normal Negative [facility] Comment on above: Performed By: #### 1 91711 #### [facility] [address] [place] [address] 24350 [employer]: Albert Arana MD Specific [place], U 1.007 Normal 1.001-1.035 [facility] Comment on above: Performed By: #### 1 37615 #### [facility] [address] [place], [place] [address] [employer]: Albert Arana MD U MICRO Not Indicated Normal [facility] Comment on above: Performed By: #### 1 65570 #### [facility] [address] [place] [address] 30002 [employer]: Albert Arana MD Urobilinogen Qual, U < 2 mg/dl Normal < 2 mg/dl [facility] Comment on above: Result Comment: Urob ilinogen, U: EU/dl and mg/dl are equivalent units. Performed By: #### 1 43973 #### [facility] [address] [place] [address] 64115 [employer]: Albert Arana MD ABORHon 09-07-2024 ABORH Interpretation Negative Normal [facility] Comment on above: Performed By: #### C [id number], CD:[id number] ####[facility] [address] [place] [address] Medical Director: Albert Arana MD Patient History Check Previous Hx Normal So [facility] Comment on above: Performed By: #### C [id number], CD:[id number] ####[facility] [address] [place] [address] Medical Director: Albert Arana MD VS 0.8% a cells 0 Normal [facility] Comment on above: Performed By: #### C D:[id number], CD:[id number] ####[facility] [address] [place] [address] Medical Director: Albert Arana MD VS 0.8% b cells 3+ Normal [facility] Comment on above: Performed By: #### C D:[id number], CD:[id number] ####[facility] [address] [place] [address] Medical Director: Albert Arana MD VS Anti-A Unit 4+ Normal [facility] Comment on above: Performed By: #### C [id number], CD:[id number] ####[facility] [address] [place] [address] Medical Director: Albert Arana MD VS Anti-B Unit 0 Normal [facility] Comment on above: Performed By: #### C D:[id number], CD:[id number] ####[facility] [address] [place] [address] Medical Director: Albert Arana MD VS Anti-D Unit 0 Normal [facility] Comment on above: Performed By: #### C D:[id number], CD:[id number] ####[facility] [address] [place] [address] Medical Director: Albert Arana MD ABSCon 09-07-2024 ABSC Final Interp Negative [facility] Comment on above: Performed By: #### C D:[id number], CD:[id number] ####[facility] [address] [place], [place] [id number]) [phone] Director: Albert Arana MD Pt Hx check done? Yes [facility] Comment on above: Performed By: #### C D:[id number], CD:[id number] ####[facility] [address] [place], [place] [id number]) [phone] Director: Albert Arana MD VS SCI Gel 0 [facility] Comment on above: Performed By: #### C D:[id number], CD:[id number] ####[facility] [address] [place] [address] Medical Director: Albert Arana MD VS SCII Gel 0 [facility] Comment on above: Performed By: #### C D:[id number], CD:[id number] ####[facility] [address] [place] [address] Medical Director: Albert Arana MD ACETAMINOPHEN 500 MG TABon 1 ACETAMINOPHEN 500 MG TAB PRN Response Entered On: 09/07/2024 13:26 EST Performed On: 09/07/2024 10:48 EST by Melba Redman RN Intervention Information: acetaminophen Performed by Melba Redman RN on 09/07/2024 09:48:00 EST acetaminophen,1000mg ORAL PRN Medication Response PRN Medication used for : Pain PRN Medication Effectiveness : Yes PRN Response Pain Scales : Numeric (8yrs & older) Numeric Pain Scale Age : Numeric (8yrs & older) Actual time of reassessment : No (not needed time is correct) Melba Redman RN - 09/07/2024 13:26 EST Numeric Pain Scale Numeric Pain Scale : 3 = Mild Pain Numeric Pain Score : 3 Melba Redman RN - 09/07/2024 13:26 EST Normal [facility] Comment on above: Order Comment: --- At home, patient was taking medication with the following details: Special Instructions: not to exceed 3000 mg/day --- AUTO DIFFon 09-07-2024 Baso Count 0.04 x1000 Normal 0.00-0.20 [facility] Comment on above: Performed By: #### 1 30975 #### [facility] [address] [place] [address] 74316 [employer]: Albert Arana MD Basos % 1.0 % Normal [facility] Comment on above: Performed By: #### 1 11782 #### [facility] [address] [place] [address] 32589 [employer]: Albert Arana MD Eos Count 0.07 x1000 Normal 0.00-0.50 [facility] Comment on above: Performed By: #### 1 17964 #### [facility] [address] [place] [address] 75949 [employer]: Albert Arana MD Eosinophils/100 WBC (Bld) 1.6 % Normal [facility] Comment on above: Performed By: #### 1 77107 #### [facility] [address] [place] [address] 93302 [employer]: Albert Arana MD Lymph Count 0.84 x1000 Low 1.20-4.80 [facility] Comment on above: Performed By: #### 1 06880 #### [facility] [address] [place] [address] 51226 [employer]: Albert Arana MD Lymphocytes/100 WBC (Bld) 19.8 % Normal [facility] Comment on above: Performed By: #### 1 34634 #### [facility] [address] [place] [address] 12651 [employer]: Albert Arana MD [place] Count 0.34 x1000 Normal 0.10-1.00 [facility] Comment on above: Performed By: #### 1 36877 #### [facility] [address] [place] [address] [employer]: Albert Arana MD Monocytes/100 WBC (Bld) 8.2 % Normal S [facility] Comment on above: Performed By: #### 1 80077 #### [facility] [address] [place] [address] 08524 [employer]: Albert Arana MD Neutrophil Count (ANC) 2.93 x1000 Normal 1.40-8.80 So [facility] Comment on above: Performed By: #### 1 67397 #### [facility] [address] [place] [address] 26074 [employer]: Albert Arana MD Neutrophils/100 WBC (Bld) 69.4 % Normal [facility] Comment on above: Performed By: #### 1 64116 #### [facility] [address] [place] [address] 76830 [employer]: Albert Arana MD Red Blood Cell Morphology See Notes Abnormal [facility] Comment on above: Result Comment: Hypo chromia 3+ Anisocytosis 3+ Poikilocytosis 1+ Polychromasia 1+ Ovalocytes 1+ Teardrop cells 1+ Performed By: #### 1 23834 #### [facility] [address] [place] [address] 55390 [employer]: Albert Arana MD Scan Differential Diff Scd Normal [facility] Comment on above: Result Comment: Larg e platelets present Slide reviewed by technologist. Performed By: #### 1 52718 #### [facility] [address] [place] [address] 20911 [employer]: Albert Arana MD AND [facility] 09-07-2024 [facility] Actions See Notes Abnormal [facility] Comment on above: Result Comment: Scan for RBC Morphology SNV Performed By: #### 1 56967 #### [facility] [address] [place] [address] 90872 [employer]: Albert Arana MD Hematocrit (Bld) [Volume fraction] 25.5 % Low 36.0-46.0 [facility] Comment on above: Performed By: #### 1 07673 #### [facility] [address] [place] [address] 35758 [employer]: Albert Arana MD Hemoglobin (Bld) [Mass/Vol] 7.9 g/dL Low 12.0-16.0 [facility] Comment on above: Performed By: #### 1 31982 #### [facility] [address] [place] [address] 40709 [employer]: Albert Arana MD [facility] Actions See Notes Abnormal [facility] Comment on above: Result Comment: Scan for RBC Morphology SNV Performed By: #### 1 79224 #### [facility] [address] [place] [address] 44453 [employer]: Albert Arana MD Hematocrit (Bld) [Volume fraction] 24.6 % Low 36.0-46.0 [facility] Comment on above: Performed By: #### 1 09609 #### [facility] [address] [place] [address] 43326 [employer]: Albert Arana MD Hemoglobin (Bld) [Mass/Vol] 7.7 g/dL Low 12.0-16.0 [facility] Comment on above: Performed By: #### 1 22913 #### [facility] [address] [place] [address] 50316 [employer]: Albert Arana MD Dx Actions See Notes Abnormal [facility] Comment on above: Result Comment: Scan for RBC Morphology SNV Performed By: #### 1 05628 ####[facility] [address] [place] [address] 38187 Medical Director: Albert Arana MD Hematocrit (Bld) [Volume fraction] 23.0 % Low 36.0-46.0 [facility] Comment on above: Performed By: #### 1 22240 ####[facility] [address] [place] [address] Medical Director: Albert Arana MD Hemoglobin (Bld) [Mass/Vol] 7.1 g/dL Low 12.0-16.0 [facility] Comment on above: Performed By: #### 1 84369 ####[facility] [address] [place], [place] [id number]) [phone] Director: Albert Arana MD [facility] Actions See Notes Abnormal [facility] Comment on above: Result Comment: Scan for RBC Morphology SNV Performed By: #### 1 90542 ####[facility] [address] [place], [place] [id number]) [phone] Director: Albert Arana MD Hematocrit (Bld) [Volume fraction] 23.2 % Low 36.0-46.0 [facility] Comment on above: Performed By: #### 1 68140 ####[facility] [address] [place] [address] Medical Director: Albert Arana MD Hemoglobin (Bld) [Mass/Vol] 7.0 g/dL Low 12.0-16.0 [facility] Comment on above: Performed By: #### 1 00201 ####[facility] [address] [place] [address] Medical Director: Albert Arana MD [facility] Actions See Notes Abnormal [facility] Comment on above: Result Comment: Scan for RBC Morphology SNV Performed By: #### 1 89880 ####[facility] [address] [place], [place] [id number]) [phone] Director: Albert Arana MD Hematocrit (Bld) [Volume fraction] 23.3 % Low 36.0-46.0 [facility] Comment on above: Performed By: #### 1 42725 ####[facility] [address] [place] [address] Medical Director: Albert Arana MD Hemoglobin (Bld) [Mass/Vol] 7.0 g/dL Low 12.0-16.0 [facility] Comment on above: Performed By: #### 1 62792 ####[facility] [address] [place] [address]322 Medical Director: Albert Arana MD HEMOon 09-07-2024 DIFF? No Normal [facility] Comment on above: Performed By: #### 1 65758 #### [facility] [address] [place] [address] 92786 [employer]: Albert Arana MD Nucleated RBC 0 /100WBC Normal [facility] Comment on above: Performed By: #### 1 35098 #### [facility] [address] [place] [id number] [employer]: Albert Arana MD DxH Actions See Notes Abnormal [facility] Comment on above: Result Comment: Scan for RBC Morphology SNV Performed By: #### 1 [id number] #### [facility] [address] [place], [place] [id number] [employer]: Albert Arana MD Erythrocyte distribution width (RBC) [Ratio] 24.1 % High 11.5-14.5 [facility] Comment on above: Performed By: #### 1 [id number] #### [facility] [address] [place], [place] [id number] [employer]: Albert Arana MD Hematocrit (Bld) [Volume fraction] 23.5 % Low 36.0-46.0 [facility] Comment on above: Performed By: #### 1 [id number] #### [facility] [address] [place] [address] 43204 [employer]: Albert Arana MD Hemoglobin (Bld) [Mass/Vol] 7.0 g/dL Low 12.0-16.0 [facility] Comment on above: Performed By: #### 1 [id number] #### [facility] [address] [place] [address] 08408 [employer]: Albert Arana MD Instr WBC 4.2 Normal [facility] Comment on above: Performed By: #### 1 [id number] #### [facility] [address] [place] [address] 54576 [employer]: Albert Arana MD MCH (RBC) [Entitic mass] 22.7 pg Low 27.0-34.0 [facility] Comment on above: Performed By: #### 1 [id number] #### [facility] [address] [place] [address] 44421 [employer]: Albert Arana MD MCHC (RBC) [Mass/Vol] 29.9 g/dL Low 32.0-37.0 [facility] Comment on above: Performed By: #### 1 [id number] #### [facility] [address] [place] [address] 46385 [employer]: Albert Arana MD MCV (RBC) [Entitic vol] 76.0 fL Low 80.0-100.0 [facility] Comment on above: Performed By: #### 1 [id number] #### [facility] [address] [place] [address] 77803 [employer]: Albert Arana MD Platelet 152 x10 Normal 150-450 [facility] Comment on above: Performed By: #### 1 [id number] #### [facility] [address] [place] [address] 56711 [employer]: Albert Arana MD Platelet mean volume (Bld) [Entitic vol] 9.0 fL Normal 7.4-10.4 [facility] Comment on above: Performed By: #### 1 [id number] #### [facility] [address] [place] [address] 43082 [employer]: Albert Arana MD RBC 3.10 x10 Low 4.20-5.40 [facility] Comment on above: Result Comment: Note : RBC morphology is normal unless otherwise stated. Evaluation performed only if differential is requested. Performed By: #### 1 [id number] #### [facility] [address] [place] [address] [employer]: Albert Arana MD WBC 4.2 x10 Low 4.5-11.0 [facility] Comment on above: Performed By: #### 1 07407 #### [facility] [address] [place], [place] [id number] [employer]: Albert Arana MD Nursing Clinical Noteon - Nursing Clinical Note 0945: Pt is alert and oriented x3. Able to make needs known. Pt c/o muscle spasms and request muscle relaxer. Will medicate per order. Breathing even and unlabored on room air. Lungs are diminished. Pt is incontinent of bladder. Tolerated her PO meds and diet well. [place] tinged urine noted in purewick canister. Dr Ward aware. Consult placed for Dr. Rodriguez. Assessment completed. Oriented to POC. Call light in reach. 1300:Pts hgb remains at 7.1 Dr. Overton gave verbal order for 1 unit of PRBC to be given. 1509: Blood initiated at this time. Vitals assessed. 1524: Vitals assessed. No reactions noted. 1725: Transfusion completed. Vitals documented. Pt tolerated well. Normal [facility] Optometric Aide Detailson 2023 Optometric Aide Details Optometric Aide Details Entered On: 09/07/2024 1:16 EST Performed On: 09/07/2024 1:16 EST by Byron Franklin RN Optometric Aide Details Transport Mode Order Detail EV : Bed Isolation Precautions RTF : Level of Care Order, 09/04/2024 12:25:00 EST, Medical Admit as Inpatient, IV medications, trending H/H, multiple transfusions, Ordered Level of Care Order, 09/03/2024 20:38:00 EST, Observation Outpatient with Observation Services, DEISY DILL, [facility], Ordered Transfer Care of Patient to Attending, 09/03/2024 20:38:00 EST, Upon discharge from the ED, all continued medications and orders become the responsibility of the admitting/attending physician., Ordered Obtain Consent, 09/03/2024 20:37:00 EST, Consent/Refusal for Transfusion of Blood or Blood Products Form [id number], 09/03/2024 20:37:00 EST, Ordered Obtain Consent, 09/03/2024 19:26:00 EST, Obtain Blood Transfusion Consent, 09/03/2024 19:26:00 EST, Ordered Isolation Precaution Order Detail EV : NONE IV Order Detail - EV : No Oxygen Order Detail EV : No Order Detail EV : No Pacemaker Order Detail : 0 Optometric Aide Details Review Status : Reviewed, changes made Nurse Collects Blood Specimens : Byron Cordova RN - 09/07/2024 1:16 EST Normal [facility] Comment on above: Order Comment: --- At home, patient was taking medication with the following details: Special Instructions: not to exceed 3000 mg/day --- Progress Note-Physicianon Progress Note-Physician Patient: BRADLEY MATOS Age: 59 years Sex: Female : 1965 Associated Diagnoses: None Author: BROOKLYNN DILL, [facility] Subjective clinically seems to be doing well. Hemoglobin is low 7.1. No more obvious bleeding. 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 Health Status Allergies: Allergic Reactions (Selected) Severity Not Documented Aspirin- N/v. Darvon- No reactions were documented. Iodine- Vomiting. Morphine- No reactions were documented. Nucynta- Swelling. Propofol- No reactions were documented. Skelaxin- Itching. Sulfa drugs- Vomiting. Tetracycline- Hives. Zantac- No reactions were documented. Medications (27) Active Scheduled: (8) ACETAMINOPHEN 500 MG TAB 1,000 mg 2 tabs, ORAL, BID ATORVASTATIN 40MG TAB 40 mg 1 tabs, ORAL, QHS CYANOCOBALAMIN 500MCG TAB 1,000 mcg 2 tabs, ORAL, DAILY DESVENLAFAXINE 50MG CR TAB 100 mg 2 tabs, ORAL, DAILY FLUTICASONE 0.05% SPRAY 16GM 1 sprays, Nasal, BID HydrOXYzine HCL 25MG TABLET 25 mg 1 tabs, ORAL, BID IRON SUCROSE COMPLEX=VENOFER 200 mg 10 mL, IV Push, [id number] PANTOPRAZOLE 40MG INJECTION 40 mg, IV Push, [id number] Continuous: (2) SODIUM CHLORIDE 0.9% 250 mL 250 mL, IV, 30 mL/hr SODIUM CHLORIDE 0.9% 250 mL 250 mL, IV, 30 mL/hr PRN: (17) ACETAMINOPHEN 500 MG TAB 1,000 mg 2 tabs, ORAL, DAILY ALUM-MAG SIMETHICONE 30 ML 30 mL, ORAL, [id number] APAP 325MG/OXYCODONE 5MG TAB 1 tabs, ORAL, [id number] ARTIFICIAL TEARS 15 ML 2 drops, Both Eyes, [id number] BISACODYL 10MG SUPP 10 mg 1 supp, Rectal, DAILY BISACODYL 5MG TAB 5 mg 1 tabs, ORAL, [id number] DICYCLOMINE 10MG CAPSULE 20 mg 2 caps, ORAL, X3VBGLH DOCUSATE 50MG/SENNA 8.6MG TABLET 1 tabs, ORAL, [id number] DOCUSATE SODIUM 100MG CAPSULE 100 mg 1 caps, ORAL, BID LOPERAMIDE 2MG CAPSULE 4 mg 2 caps, ORAL, PRN LORATADINE 10MG TABLET 10 mg 1 tabs, ORAL, DAILY MAGNESIUM HYDROXIDE 30ML=10ML 10 mL, ORAL, DAILY METHOCARBAMOL 750MG TABLET 750 mg 1 tabs, ORAL, Z3ETNFL NYSTATIN POWDER 15GM 1 carola, Topical, TID PHOSPHO SODA ENEMA 1 bottles, Rectal, DAILY POLYETHYLENE GLYCOL 3350- 17 GM PACKET 17 g 1 packets, ORAL, DAILY PROMETHAZINE 25MG TABLET 25 mg 1 tabs, ORAL, [id number] Objective Vital Signs (last 24 hrs) Last Charted Temp Oral 37.0 degC (SEP 07:) Heart Rate Peripheral 88 bpm (SEP 07:) Resp Rate 16 br/min (SEP 07:) SBP 103 mmHg (SEP 07:) DBP 67 mmHg (SEP 07:) General: Alert and oriented. Not in acute distress. HEENT: No pallor, no jaundice. Respiratory: Lungs CTA Cardiovascular: Regular rate and rhythm; no murmur. Gastrointenstinal: Extremities: No pedal edema. Review / Management Labs (Last four charted values) WBC L 4.2 (SEP 07) L 4.2 (SEP 05) L 4.3 (SEP 04) L 4.4 (SEP 03) Hgb L 7.1 (SEP 07) L 7.0 (SEP 07) L 7.0 (SEP 07) L 7.0 (SEP 06) Hct L 23.0 (SEP 07) L 23.5 (SEP 07) L 23.2 (SEP 07) L 23.3 (SEP 06) Plt 152 (SEP 07) 166 (SEP 05) 174 (SEP 04) 169 (SEP 03) Na 140 (SEP 07) 141 (SEP 05) 140 (SEP 04) 140 (SEP 03) K L 3.2 (SEP 07) 3.7 (SEP 05) L 3.3 (SEP 04) 3.5 (SEP 03) CO2 31.0 (SEP 07) 29.0 (SEP 05) 30.0 (SEP 04) 27.0 (SEP 03) Cl 103 (SEP 07) 104 (SEP 05) 104 (SEP 04) 105 (SEP 03) Cr 0.5 (SEP 07) 0.5 (SEP 05) 0.5 (SEP 04) 0.6 (SEP 03) BUN L 6 (SEP 07) L 7 (SEP 05) L 7 (SEP 04) L 7 (SEP 03) Glucose Random H 160 (SEP 07) H 167 (SEP 05) H 130 (SEP 04) H 179 (SEP 03) Mg 1.7 (SEP 05) Phos 3.6 (SEP 07) Ca L 8.4 (SEP 07) L 8.6 (SEP 05) L 8.6 (SEP 04) L 8.5 (SEP 03) INR 1.2 (SEP 03) Impression and Plan Impression: #1 acute upper GI bleeding. Antral vascular ectasia. 2 iron and B12 deficiency anemia. #3 multiple medical problems. Plan: Continue on present treatment monitor H&H. IV Venofer. Will transfuse with a unit of packed cells. Normal [facility] Progress Note-Physician BRADLEY MATOS :1965 Registration Date:09/03/2024 Assessment/Plan This Visit Diagnosis Anemia D64.9 Transfusion Orders: Sodium Chloride 0.9%(NS) 250 mL(0.9%NaCl (Normal Saline) 250 mL), 250 mL, IV ABORH, STAT, 09/07/2024 13:24:00 EST ABSC, STAT, 09/07/2024 13:24:00 EST CBCWD(CBC WITH DIFF), ROUTINE, 09/07/2024 06:00:00 EST Consult Physician, 09/07/2024 09:52:00 EST, MICHAEL DILL, RICHARD R, HEMATURIA IS XM, STAT, 09/07/2024 13:24:00 EST, 1 Units [facility] ONE TIME Task(Confirm Type and Crossmatch order with Blood Bank), Confirm Type and Crossmatch order with Blood Bank, 09/07/2024 13:26:00 EST, 09/07/2024 13:26:00 EST, 09/07/2024 13:26:00 EST [facility] ONE [facility] Task(Give Patient Education Titles:), Give Patient Education Titles:, 09/07/2024 13:26:00 EST, Blood Transfusion Information [facility] (Custom) and Post Transfusion Discharge Instructions [facility] (Custom), 09/07/2024 13:26:00 EST, 09/07/2024 13:26:00 EST [facility] ONE TIME Task(Order H&H), Order H&H, 09/07/2024 13:26:00 EST, If Physician order is for multi-unit Leuko Reduced PRBC transfusion, 60 mins after first unit completed, 09/07/2024 13:26:00 EST, 09/07/2024 13:26:00 EST Obtain Consent, 09/07/2024 13:24:00 EST, Obtain Blood Transfusion Consent, 09/07/2024 13:24:00 EST Obtain Consent, 09/07/2024 13:26:00 EST, Consent/Refusal for Transfusion of Blood or Blood Products Form [id number], 09/07/2024 13:26:00 EST RBC Transfusion Request Active Bleeding, 1, STAT, 09/07/2024 13:26:00 EST, Hgb less than 8g/dl or Hct less than 24%, In a pt with CAD, Unstable Angina, [place] or Cardiogenic Shock. RENAL PNL(RENAL FUNCTION PANEL), ROUTINE, 09/07/2024 06:00:00 EST 1. Acute renal cell anemia 2. Iron deficiency anemia 3. Multiple comorbid illnesses as initial consultation. Plan 1. Transfuse a unit of packed red blood cells 2. Replace potassium 3. Urology consultation/hematuria 4. Plan of care discussed this patient 5. Upper endoscopy results reviewed. Hiatal hernia with reflux esophagitis. No esophageal or gastric varices. 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 6. IV Protonix 7. Has been started on IV iron. 8. Repeat CBC renal panel Subjective Hematuria. Hemoglobin at 7 which is dropping. Review of Systems All systems reviewed are negative. Objective Vitals & Measurements T: 36.5 ?C (Oral) TMIN: 36.5 ?C (Oral) TMAX: 37 ?C (Oral) HR: 87 (Peripheral) RR: 16 BP: 104/65 SpO2: 94% Physical Exam General: alert, no acute distress Skin: warm, dry Head: no trauma, normocephalic Neck: trachea midline, no adenopathy, no tenderness. Eye: Pallor. Conjunctiva, sclera clear. Cardiovascular: regular rate and rhythm, normal peripheral perfusion. Respiratory: lungs CTA, respirations non labored. Chest Wall: no deformity. Gastrointestinal: soft, non distended, no RUQ tenderness, no RUQ guarding. Obese nontender. Bowel sounds normal Extremities: no deformity, no trauma. Neurological: oriented x4, LOC appropriate for age, CN II-XII intact, motor strength equal and normal bilaterally, sensation equal and normal bilaterally, speech normal Psychiatric: cooperative, affect appropriate for age, normal judgement, normal psychiatric thoughts. Medications Inpatient acetaminophen, 1000 mg= 2 tabs, ORAL, BID acetaminophen, 1000 mg= 2 tabs, ORAL, DAILY, PRN acetaminophen-oxycodone (acetaminophen-oxycodon e 325 mg-5 mg oral tablet = Percocet), 1 tabs, ORAL, [id number], PRN Al hydroxide/Mg hydroxide/simethicone(M ylanta = aluminum hydroxide/magnesium hydroxide/simethicone 200 mg-200 mg-20 mg/5 mL oral susp), 30 mL, ORAL, [id number], PRN atorvastatin, 40 mg= 1 tabs, ORAL, QHS bisacodyl, 10 mg= 1 supp, Rectal, DAILY, PRN bisacodyl, 5 mg= 1 tabs, ORAL, [id number], PRN cyanocobalamin, 1000 mcg= 2 tabs, ORAL, DAILY desvenlafaxine, 100 mg= 2 tabs, ORAL, DAILY dicyclomine, 20 mg= 2 caps, ORAL, V7YPQGX, PRN docusate(docusate sodium), 100 mg= 1 caps, ORAL, BID, PRN docusate-senna(Senokot S (docu 50mg/senna 8.6mg)), 1 tabs, ORAL, W6SEVJA, PRN fluticasone nasal(fluticasone 50 mcg/inh nasal spray), 1 sprays, Nasal, BID hydrOXYzine(hydrOXYzine hydrochloride = Atarax), 25 mg= 1 tabs, ORAL, BID iron sucrose(Venofer), 200 mg= 10 mL, IV Push, I20MGJWT loperamide, 4 mg= 2 caps, ORAL, PRN, PRN loratadine, 10 mg= 1 tabs, ORAL, DAILY, PRN magnesium hydroxide(Milk of Magnesia Conc 10ml =30ml MOM), 10 mL, ORAL, DAILY, PRN methocarbamol, 750 mg= 1 tabs, ORAL, X3VAJWE, PRN nystatin topical = Mycostatin, 1 carola, Topical, TID, PRN ocular lubricant(Artificial Tears), 2 drops, Both Eyes, R5CJNLI, PRN pantoprazole(Protonix), 40 mg, IV Push, [id number] polyethylene glycol 3350(MiraLax), 17 g= 1 packets, ORAL, DAILY, PRN promethazine = Phenergan, 25 mg= 1 tabs, ORAL, G2IBUYJ, PRN sodium biphosphate-sodium phosphate(Fleet Phospho Soda Enema), 1 bottles, Rectal, DAILY, PRN Sodium Chloride 0 (more content not included)... Normal [facility] RBC Transfusion Request Non Active Bleedingon 09-07-2024 # Units 1 Normal [facility] Comment on above: Performed By: #### 1 [id number] #### [facility] [address] [place] [address] [employer]: Albert Arana MD Performed By: #### 1 [id number] ####[facility] [id number] [place], [place] [id number]) [phone] Director: Albert Arana MD Status of Blood/Components Blood Available Normal [facility] Comment on above: Result Comment: 08/10 14:39 [id number] Availability called to: KR on 1DOU. 09/07/2024 14:39:13 EST la Performed By: #### 1 [id number] #### [facility] [address] [place] [address] [employer]: Albert Arana MD Performed By: #### 1 [id number] ####[facility] [id number] [place], [place] [id number]) [phone] Director: Albert Arana MD RENAL PNLon 09-07-2024 Albumin [Mass/Vol] 2.5 g/dL Low 3.4-5.0 [facility] Comment on above: Performed By: #### 1 36292 #### [facility] [address] [place] [address]78 [employer]: Albert Arana MD Calcium [Mass/Vol] 8.4 mg/dL Low 8.7-10.4 [facility] Comment on above: Performed By: #### 1 34804 #### [facility] [address] [place] [address] [employer]: Albert Arana MD Calcium [Mass/Vol] 9.6 mg/dL Normal 8.5-10.5 [facility] Comment on above: Performed By: #### 1 [id number] #### [facility] [address] [place] [address] [employer]: Albert Arana MD Chloride [Moles/Vol] 103 mmol/L Normal 98-107 [facility] Comment on above: Performed By: #### 1 34248 #### [facility] [address] [place] [address] [employer]: Albert Arana MD CO2 [Moles/Vol] 31.0 mmol/L Normal 20.0-31.0 [facility] Comment on above: Performed By: #### 1 [id number] #### [facility] [address] [place] [address]12 [employer]: Albert Arana MD Creatinine [Mass/Vol] 0.5 mg/dL Normal 0.5-0.8 [facility] Comment on above: Performed By: #### 1 [id number] #### [facility] [address] [place] [address] 12083 [employer]: Albert Arana MD GFR AA >60 Normal [facility] Comment on above: Result Comment: Afri can Bhutanese GFR Calc Medical judgement is necessary to interpret GFR. The calculated GFR may not accurately reflect renal status in patients >70 years, women, acutely ill hospitalized patients and patients with acute renal failure or known renal disease. The MDRD GFR formula is valid only for adults greater than 18 years of age. Note: Creatinine clearance (not GFR) should be used for drug dosing. Performed By: #### 1 67721 #### [facility] [address] [place] [address] [employer]: Albert Aarna MD Glomerular Filtration Rate >60 Normal [facility] Comment on above: Result Comment: Non- GFR Calc Medical judgement is necessary to interpret GFR. The calculated GFR may not accurately reflect renal status in patients >70 years, women, acutely ill hospitalized patients and patients with acute renal failure or known renal disease. The MDRD GFR formula is valid only for adults greater than 18 years of age. Note: Creatinine clearance (not GFR) should be used for drug dosing. Performed By: #### 1 [id number] #### [facility] [address] [place] [address] 30125 [employer]: Albert Arana MD Glucose [Mass/Vol] 160 mg/dL High 74-106 [facility] Comment on above: Performed By: #### 1 [id number] #### [facility] [address] [place] [address] 51471 [employer]: Albert Arana MD Osmolality [Osmolality] 281 mosm/kg Normal 275-295 [facility] Comment on above: Performed By: #### 1 [id number] #### [facility] [address] [place] [address] [employer]: Albert Arana MD Phosphate [Mass/Vol] 3.6 mg/dL Normal 2.0-5.1 [facility] Comment on above: Result Comment: Bloo d samples from some patients with monoclonal gammopathies may produce falsely elevated results Performed By: #### 1 [id number] #### [facility] [address] [place] [address] 23562 [employer]: Albert Arana MD Potassium [Moles/Vol] 3.2 mmol/L Low 3.5-5.1 [facility] Comment on above: Performed By: #### 1 [id number] #### [facility] [address] [place] [address] 24087 [employer]: Albert Arana MD Sodium [Moles/Vol] 140 mmol/L Normal 135-145 [facility] Comment on above: Performed By: #### 1 [id number] #### [facility] [address] [place] [address] 43888 [employer]: Albert Arana MD Urea nitrogen [Mass/Vol] 6 mg/dL Low 9-23 [facility] Comment on above: Result Comment: - Ve nipuncture should occur prior to N-Acetyl Cysteine (NAC) or Metamizole (Sulpyrine) administration due to the potential for falsely depressed results. - Blood samples from some patients with monoclonal gammopathies may produce falsely elevated results Performed By: #### 1 [id number] #### [facility] [address] [place] [address] [employer]: Albert Arana MD Urea nitrogen/Creatinine [Mass ratio] 12.0 mg/mg Normal [facility] Comment on above: Performed By: #### 1 [id number] #### [facility] [address] [place] [address] [employer]: Albert Arana MD ACETAMINOPHEN 500 MG TABon 1 ACETAMINOPHEN 500 MG TAB PRN Response Entered On: 09/06/2024 21:37 EST Performed On: 09/06/2024 21:08 EST by Byron Franklin RN Intervention Information: acetaminophen Performed by Byron Franklin RN on 09/06/2024 20:08:00 EST acetaminophen,1000mg ORAL PRN Medication Response PRN Medication used for : Pain PRN Medication Effectiveness : Yes PRN Response Pain Scales : Numeric (8yrs & older) Numeric Pain Scale Age : Numeric (8yrs & older) Actual time of reassessment : No (not needed time is correct) Byron Franklin RN - 09/06/2024 21:37 EST Numeric Pain Scale Numeric Pain Scale : 1 = Mild Pain Numeric Pain Score : 1 Byron Franklin RN - 09/06/2024 21:37 EST Normal [facility] Comment on above: Order Comment: --- At home, patient was taking medication with the following details: Special Instructions: not to exceed 3000 mg/day --- ACETAMINOPHEN 500 MG TAB PRN Response Entered On: 09/06/2024 15:12 EST Performed On: 09/06/2024 10:47 EST by Melba Redman RN Intervention Information: acetaminophen Performed by Melba Redman RN on 09/06/2024 09:47:00 EST acetaminophen,1000mg ORAL PRN Medication Response PRN Medication used for : Pain PRN Medication Effectiveness : Yes PRN Response Pain Scales : Numeric (8yrs & older) Numeric Pain Scale Age : Numeric (8yrs & older) Actual time of reassessment : No (not needed time is correct) Melba Redman RN - 09/06/2024 15:12 EST Numeric Pain Scale Numeric Pain Scale : 3 = Mild Pain Numeric Pain Score : 3 Melba Redman RN - 09/06/2024 15:12 EST Normal [facility] Comment on above: Order Comment: --- At home, patient was taking medication with the following details: Special Instructions: not to exceed 3000 mg/day --- CEAon 09-06-2024 CEA <0.5 Normal 0.0-2.5 [facility] Comment on above: Result Comment: Refe rence range for CEA: 0.0 - 2.5 ng/ml for non-smokers, 0.0 - 5.0 ng/ml for smokers. Testing is performed on the ZigaVite Analyzer. The assay is a two-site sandwich immunoassay using direct chemiluminometric technology. Results obtained with different assay methods or kits cannot be used interchangeably. 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 This exam was performed according to our departmental dose optimization program, and includes the following measures where applicable: automated exposure control, adjustment of the mAs and/or kVp according to patient size and/or exam, and an iterative reconstruction algorithm. Sagittal and coronal reconstructions were performed. Findings: Abdomen: Lower thorax: No significant parenchymal abnormalities are the lung bases. There are no signs of consolidation. The heart does not appear enlarged. [] Liver: The liver measures 22 cm compatible with hepatomegaly. There are no signs of a discrete mass or evidence of duct dilation. The gallbladder appears unremarkable. The pancreas, and adrenal glands appear within normal range. Spleen measures 16.4 cm compatible with splenomegaly. Each kidney appears normal in size shape and position without stones or hydronephrosis. There is an exophytic low-density process extending from the inferior pole of the left kidney measuring approximately 31 mm and could represent a cyst. Stomach/bowel: No acute abnormalities of the stomach or proximal small bowel identified. Small bowel pattern is nonobstructive. The region of the terminal ileum, appendix and cecum appears within the normal range. There are numerous colonic diverticula but no signs of diverticulitis. There are stable postoperative changes of sigmoid. Pelvis: The urinary bladder is decompressed. The uterus and adnexa are not visualized. There are no signs of significant ascites or lymphadenopathy within the pelvis. Retroperitoneum/periton eum: There are no signs of significant retroperitoneal lymphadenopathy, aneurysm signs of ascites. There is a small adipose containing umbilical hernia. Bones: There are no signs of acute fracture spondylolisthesis of the visualized spinal pelvis. There is evidence of degenerative disc disease. [] Impression: 1. Hepatosplenomegaly 2. Diverticulosis with no signs of diverticulitis. 3. No signs of urolithiasis or obstructive uropathy. [] [] Electronically signed by: Ana Lester MD 09/06/2024 07:29 AM EST RP Technologist: SK,MH,HS Dictated By: Thom LESTER MD Signed By: Thom LESTER MD Signed Out: 09/06/24 07:29:17 Normal [facility] ENDO Initial Data VS HW Prep -Texton 09-06-2024 ENDO Initial Data VS HW Prep-Text Endoscopy Intial Data VS HW Prep Entered On: 09/06/2024 13:22 EST Performed On: 09/06/2024 13:21 EST by Allegra Harris RN VS HW Prep Systolic Blood Pressure : 126 mmHg (HI) Diastolic Blood Pressure : 65 mmHg Heart Rate Monitored : 88 bpm Respiratory Rate : 17 br/min SpO2 : 93 % (LOW) Temperature Temporal Artery : 36.3 degC NPO Since : 09/06/2024 09:47 EST Height/Length Dosing : 167.6 cm(Converted to: 5.50 ft, 65.98 in) Weight Dosing : 130.6 kg(Converted to: 4,606.780 oz, 287.924 lb) Last Food Intake : 09/05/2024 21:00 EST Last Fluid Intake : 09/06/2024 09:47 EST Allegra Harris RN - 09/06/2024 13:21 EST Anesthesia/Transfusions Anesthesia/Transfusions : Prior anesthesia Accept Blood Products if Necessary : Yes Allegra Harris RN - 09/06/2024 13:21 EST Normal [facility] H AND Hon 09-06-2024 DxH Actions See Notes Abnormal [facility] Comment on above: Result Comment: Scan for RBC Morphology SNV Performed By: #### 1 [id number] #### [facility] [address] [place] [id number] [employer]: Albert Arana MD Hematocrit (Bld) [Volume fraction] 24.3 % Low 36.0-46.0 [facility] Comment on above: Performed By: #### 1 [id number] #### [facility] [address] [place] [id number] [employer]: Albert Arana MD Hemoglobin (Bld) [Mass/Vol] 7.2 g/dL Low 12.0-16.0 [facility] Comment on above: Performed By: #### 1 [id number] #### [facility] [address] [place] [address]121 [employer]: Albert Arana MD DxH Actions See Notes Abnormal [facility] Comment on above: Result Comment: Scan for RBC Morphology SNV Performed By: #### 1 [id number] #### [facility] [address] [place] [address] [employer]: Albert Arana MD Hematocrit (Bld) [Volume fraction] 23.6 % Low 36.0-46.0 [facility] Comment on above: Performed By: #### 1 [id number] #### [facility] [address] [place] [id number] [employer]: Albert Arana MD Hemoglobin (Bld) [Mass/Vol] 7.0 g/dL Low 12.0-16.0 [facility] Comment on above: Performed By: #### 1 [id number] #### [facility] [address] [place] [address] 70677 [employer]: Albert Arana MD Nursing Clinical Noteon 08-10 Nursing Clinical Note 2007- full assessm ent and za med pass complete. pt is alert and oriented. non ambulatory from facility since cva in 2021. left leg weakness as residual. apical regular non tele. lungs diminished clear respirations easy on room air. denies sob or chest pain. purewick utilized for urinary incontinence celso urine. iv venofer given as scheduled. pt s/p egd today. tolerating diet. scheduled tylenol given for 3/10 pain call mcdermott in reach. bed exit alarm on. Normal [facility] Nursing Clinical Note 0940: Pt is alert and oriented x3. Able to make needs known. Pt denies current pain or discomfort. Denies CP or SOB. Breathing even and unlabored on room air. Pt NPO at this time for EGD this afternoon. Tolerated PO medications with small sips of water. Assessment completed. Oriented to POC. Call light in reach. 1300: Pt left unit at this time for pre op in stable condition. 1545: Pt returned to unit at this time in stable condition. Normal [facility] OR Nursing Record - Endoon 1 OR Nursing Record - Endo OR Nursing Record - Endo Summary Primary Physician: BROOKLYNN DILL, [facility] Finalized Date/Time: 09/06/24 15:12:13 Pt. Name: BRADLEY MATOS/Sex: 1965 Female Med Rec #: [id number] Physician: JACINTO BARRERA MD Financial #: [id number] Pt. Type: I Room/Bed: D149/02 Admit/Disch: 09/03/24 19:08:11 - Institution: Case Times - Endo Entry 1 Patient In Room Time 09/06/24 14:29:00 Out Room Time 09/06/24 15:12:00 Anesthesia Facility Times [place] Protocol Yes Completed Surgery Start Time 09/06/24 14:48:00 Stop Time 09/06/24 15:09:00 Last Modified By: Herlinda Vitale RN 09/06/24 15:10:01 Surgical Procedures - Endo Entry 1 Procedure EGD Modifiers None Surgeon Procedure EGD Primary Procedure Yes Description Primary Surgeon BROOKLYNN DILL, EDDY Start 09/06/24 14:48:00 Stop 09/06/24 15:09:00 Anesthesia Type IV Sedation Surgical Service SN - Gastroenterology Last Modified By: Herlinda Vitale RN 09/06/24 15:10:04 General Case Data - Endo Entry 1 Case Information OR Endo 01 Schedule Type Add-On Case Level Endo 02 Wound Class Clean-Contaminated Specialty SN - Gastroenterology ASA Class 2 Procedure History Yes Documented Diagnosis Preop Diagnosis GI BLEED Postop Diagnosis REFLUX ESOPHAGITIS, GASTRIC ANTRAL ECTASIA Last Modified By: Herlinda Vitale RN 09/06/24 15:11:52 Case Attendance - Endo Entry 1 Entry 2 Entry 3 Case Attendee BROOKLYNN DILL, EDDY [place] RN, Herlinda Mercado RN Role Performed Surgeon Primary Scrub Primary School Fundraising Director Primary Time In 09/06/24 14:29:00 09/06/24 14:29:00 09/06/24 14:29:00 Time Out 09/06/24 15:12:00 09/06/24 15:12:00 09/06/24 15:12:00 Procedure EGD(None) EGD(None) EGD(None) Last Modified By: Herlinda Vitale RN, RN, Herlinda Haley RN 09/06/24 15:11:54 09/06/24 15:11:54 09/06/24 15:11:54 Entry 4 Case Attendee Allegra Harris RN Role Performed School Fundraising Director Secondary Time In 09/06/24 14:29:00 Time Out 09/06/24 15:12:00 Procedure EGD(None) Last Modified By: Herlinda Vitale RN 09/06/24 15:11:54 Delays - Endo Entry 1 Delay Reason No Delay Last Modified By: Herlinda Vitale RN 09/06/24 14:23:44 Vital Signs to IView - Endo NOT APPLICABLE Entry 1 Last Modified By: Endoscopy - Endo Entry 1 Scope Serial Number [id number] Last Modified By: Herlinda Vitale RN 09/06/24 14:25:04 Medication Administration - Endo NOT APPLICABLE Entry 1 Last Modified By: Implants/Tissue Products - Endo NOT APPLICABLE Entry 1 Last Modified By: Endo Specimens/Cultures NOT APPLICABLE Entry 1 Last Modified By: Catheters, Drains, Tubes - Endo Discontinued Reason Respiratory Distress Entry 1 Last Modified By: New Specimens & Cultures Endo Entry 1 Specimens Ordered No Last Modified By: Herlinda Vitale RN 09/06/24 15:09:36 Case Comments Finalized By: Herlinda Vitale RN Document Signatures Signed By: Herlinda Vitale RN 09/06/24 15:12 Herlinda Vitale RN 09/06/24 15:12 Unfinalized History Date/Time Username Reason for Unfinalizing Freetext Reason for Unfinalizing 09/06/24 15:12 [id number] Correct Documentation Normal [facility] Operative Reporton Operative Report Patient: BRADLEY MATOS Age: 59 years Sex: Female : 1965 Associated Diagnoses: None Author: EDDY OVERTON MD Pre-Procedure Procedure Date: 09/06/2024 . Procedure Type: Esophagogastroduodenosc opy. Procedure provider: Performed by EDDY OVERTON MD. Informed Consent: After discussing the rationale, risks and benefits, and alternatives to this procedure, the patient provided signed consent for the procedure. Indication: Upper gastrointestinal bleed: Severe iron deficiency anemia.. Airway: Mouth: Within normal limits. Throat: Within normal limits. ASA Classification: Class II. Sedation Plan: Moderate Sedation. Comments Based on H&P, no allergy to sedation, ASA score, suitable candidate for sedation during procedure. Discussed plan/risks/benefits/rat ionale/alternatives with pt/guardian. Agrees to sedation. Re-evaluated immediately before sedation, no changes in status. Comments Pre-Procedure Date/Time 09/06/2024 15:14:00 Procedure Endoscope. Findings The squamocolumnar junction appeared irregular. 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 It was characterized by oozing of blood. Intervention(s) for gastric antral vascular ectasia included argon plasma coagulation. Images Procedure images: EGD_0003.jpg EGD_0004.jpg EGD_0005.jpg EGD_0006.jpg EGD_0007.jpg EGD_0008.jpg EGD_0009.jpg EGD_0010.jpg EGD_0011.jpg EGD_0012.jpg EGD_0013.jpg EGD_0014.jpg . Post-Procedure Complications encountered during the procedure were none. Estimated blood loss during the procedure was none. Specimens were sent to pathology. Impression and Plan EGD: Pre Procedure Diagnosis: Same as pre op indication/diagnosis. Post Procedure Diagnosis: Hiatal hernia with reflux esophagitis. No esophageal or gastric varices. Multiple small gastric polyps. 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 Ablated with APC. Mild duodenitis.. Orders: Patient will be started on GI soft diet. Continue Protonix 40 IV twice daily. Continue on IV Venofer 200 mg daily x 3. Will repeat H&H at 5 PM if below 7 we will transfuse a unit of blood. Continue to monitor CBC. Hold anticoagulation... Education and Follow-up: Counseled: Patient. Normal [facility] Comment on above: Order Comment: Thais knapp Attachment [id number] can be viewed in source systemMissing Attachment [id number] can be viewed in source systemMissing Attachment [id number] can be viewed in source systemMissing Attachment [id number] can be viewed in source systemMissing Attachment [id number] can be viewed in source systemMissing Attachment [id number] can be viewed in source systemMissing Attachment [id number] can be viewed in source systemMissing Attachment [id number] can be viewed in source systemMissing Attachment [id number] can be viewed in source systemMissing Attachment [id number] can be viewed in source systemMissing Attachment [id number] can be viewed in source systemMissing Attachment [id number] can be viewed in source system Result Comment: PACU Phase I - Endoon 2023 PACU Phase I - Endo PACU Phase I - Endo Summary Primary Physician: BROOKLYNN DILL [facility] Finalized Date/Time: 09/06/24 15:39:59 Pt. Name: BRADLEY MATOS/Sex: 1965 Female Med Rec #: [id number] Physician: JACINTO BARRERA MD Financial #: [id number] Pt. Type: I Room/Bed: [place] [address] Admit/Disch: 09/03/24 19:08:11 - Institution: PACU I Case Times - Endo Entry 1 In PACU I 09/06/24 15:17:00 Ready for Transfer 09/06/24 15:39:00 Last Modified By: Allegra Harris RN 09/06/24 15:39:58 Finalized By: Allegra Harris RN Document Signatures Signed By: Allegra Harris RN 09/06/24 15:39 Normal [facility] Pathologist Reviewon 024 Diff Review Interp Review of peripheral smear reveals microcytic, hypochromic RBCs with anisopoikilocytosis. The platelets are adequate in number with normal morphology. The white blood cell morphology is unremarkable. No atypical lymphocytes or immature blasts are noted. Most common causes of microcytic anemia include iron deficiency, anemia of chronic disease, blood loss and hemoglobinopathies, among others. Clinical correlation with serum iron/ferritin studies are recommended. Normal [facility] Comment on above: Order Comment: Added on by Discern Expert Rule. Result Comment: DAVI COLON (Electronic Signature) Date Verified 09/06/24 Performed By: #### 1 [id number] ####[facility] [id number] [place] [address] Medical Director: Albert Arana MD Preop - Endoon 09-06-2024 Preop - Endo Preop - Endo Summary Primary Physician: BROOKLYNN DILL [facility] Finalized Date/Time: 09/06/24 14:01:10 Pt. Name: BRADLEY MATOS/Sex: 1965 Female Med Rec #: [id number] Physician: JACINTO BARRERA MD Financial #: [id number] Pt. Type: I Room/Bed: [place] [address] Admit/Disch: 09/03/24 19:08:11 - Institution: Preop - Case Times - Endo Entry 1 Patient Arrival Time 09/06/24 13:12:00 Patient Ready for 09/06/24 14:01:00 Surgery Report Given to n/a Last Modified By: Allegra Harris RN 09/06/24 14:01:08 Finalized By: Allegra Harris RN Document Signatures Signed By: Allegra Harris RN 09/06/24 14:01 Normal [facility] Progress Note-Bibi Progress Note-Physician BRADLEY MATOS :1965 Registration Date:09/03/2024 Assessment/Plan This Visit Diagnosis Anemia D64.9 Orders: CEA, ROUTINE, 09/06/2024 09:16:00 EST 1. Acute blood loss anemia 2. Iron deficiency 3. A previous CVA 4. Sjogren's syndrome/fibromyalgia/d iverticulosis/irritable bowel/PTSD/anxiety depression Plan 1. Overnight events reviewed 2. CBC CMP 3. CEA 4. EGD today 5. Protonix 6. Will plan to discharge once above process is completed. 7. Occult blood stool Subjective Abdominal pain improving. Review of Systems All systems reviewed negative except as mentioned Objective Vitals & Measurements T: 36.6 ?C (Oral) TMIN: 36.5 ?C (Oral) TMAX: 37 ?C (Oral) HR: 97 (Peripheral) RR: 17 BP: 112/72 SpO2: 94% Physical Exam General: alert, no acute distress Skin: warm, dry Head: no trauma, normocephalic Neck: trachea midline, no adenopathy, no tenderness. Eye: Pallor conjunctiva, sclera clear. Cardiovascular: regular rate and rhythm, normal peripheral perfusion. Respiratory: lungs CTA, respirations non labored. Distant breath sounds. Chest Wall: no deformity. Gastrointestinal: soft, non distended, no RUQ tenderness, no RUQ guarding. Morbidly obese no area of tenderness Extremities: no deformity, no trauma. Neurological: oriented x4, Psychiatric: cooperative, aff Medications Inpatient acetaminophen, 1000 mg= 2 tabs, ORAL, BID acetaminophen, 1000 mg= 2 tabs, ORAL, DAILY, PRN acetaminophen-oxycodone (acetaminophen-oxycodon e 325 mg-5 mg oral tablet = Percocet), 1 tabs, ORAL, [id number], PRN Al hydroxide/Mg hydroxide/simethicone(M ylanta = aluminum hydroxide/magnesium hydroxide/simethicone 200 mg-200 mg-20 mg/5 mL oral susp), 30 mL, ORAL, [id number], PRN atorvastatin, 40 mg= 1 tabs, ORAL, QHS bisacodyl, 10 mg= 1 supp, Rectal, DAILY, PRN bisacodyl, 5 mg= 1 tabs, ORAL, [id number], PRN cyanocobalamin, 1000 mcg= 2 tabs, ORAL, DAILY desvenlafaxine, 100 mg= 2 tabs, ORAL, DAILY dicyclomine, 20 mg= 2 caps, ORAL, [id number], PRN docusate(docusate sodium), 100 mg= 1 caps, ORAL, BID, PRN docusate-senna(Senokot S (docu 50mg/senna 8.6mg)), 1 tabs, ORAL, [id number], PRN fluticasone nasal(fluticasone 50 mcg/inh nasal spray), 1 sprays, Nasal, BID hydrOXYzine(hydrOXYzine hydrochloride = Atarax), 25 mg= 1 tabs, ORAL, BID iron sucrose(Venofer), 200 mg= 10 mL, IV Push, [id number] loperamide, 4 mg= 2 caps, ORAL, PRN, PRN loratadine, 10 mg= 1 tabs, ORAL, DAILY, PRN magnesium hydroxide(Milk of Magnesia Conc 10ml =30ml MOM), 10 mL, ORAL, DAILY, PRN methocarbamol, 750 mg= 1 tabs, ORAL, K7VBIVN, PRN nystatin topical = Mycostatin, 1 carola, Topical, TID, PRN ocular lubricant(Artificial Tears), 2 drops, Both Eyes, [id number], PRN pantoprazole(Protonix), 40 mg, IV Push, [id number] polyethylene glycol 3350(MiraLax), 17 g= 1 packets, ORAL, DAILY, PRN promethazine = Phenergan, 25 mg= 1 tabs, ORAL, B0IIJOC, PRN sodium biphosphate-sodium phosphate(Fleet Phospho Soda Enema), 1 bottles, Rectal, DAILY, PRN Normal [facility] Progress Note-Physician BRADLEY MATOS :1965 Registration Date:09/03/2024 Assessment/Plan This Visit Diagnosis Anemia D64.9 1. Generalized weakness 2. Acute renal cell anemia 3. A previous CVA left-sided weakness 4. Iron deficiency anemia 5. Anemia requiring transfusion Plan 1. Interval notes reviewed 2. Medications reviewed 3. IV Protonix 4. Venofer 5. Patient scheduled for EGD tomorrow 6. CEA 7. Stool occult blood Subjective Abdominal pain improving Review of Systems All systems reviewed negative. Objective Vitals & Measurements T: 37 ?C (Oral) TMIN: 36.5 ?C (Oral) TMAX: 37 ?C (Oral) HR: 93 (Peripheral) RR: 17 BP: 111/71 SpO2: 93% Physical Exam General: alert, no acute distress Skin: warm, dry Head: no trauma, normocephalic Neck: trachea midline, no adenopathy, no tenderness. Eye: Pallor conjunctiva, sclera clear. Cardiovascular: regular rate and rhythm, normal peripheral perfusion. Respiratory: lungs CTA, respirations non labored. Chest Wall: no deformity. Gastrointestinal: soft, non distended, no RUQ tenderness, no RUQ guarding. Extremities: no deformity, no trauma. Neurological: oriented x4, left-sided weakness Psychiatric: cooperative, affect appropriate for age Medications Inpatient acetaminophen, 1000 mg= 2 tabs, ORAL, BID acetaminophen, 1000 mg= 2 tabs, ORAL, DAILY, PRN acetaminophen-oxycodone (acetaminophen-oxycodon e 325 mg-5 mg oral tablet = Percocet), 1 tabs, ORAL, [id number], PRN Al hydroxide/Mg hydroxide/simethicone(M [place] = aluminum hydroxide/magnesium hydroxide/simethicone 200 mg-200 mg-20 mg/5 mL oral susp), 30 mL, ORAL, [id number], PRN atorvastatin, 40 mg= 1 tabs, ORAL, QHS bisacodyl, 10 mg= 1 supp, Rectal, DAILY, PRN bisacodyl, 5 mg= 1 tabs, ORAL, [id number], PRN cyanocobalamin, 1000 mcg= 2 tabs, ORAL, DAILY desvenlafaxine, 100 mg= 2 tabs, ORAL, DAILY dicyclomine, 20 mg= 2 caps, ORAL, [id number], PRN docusate(docusate sodium), 100 mg= 1 caps, ORAL, BID, PRN docusate-senna(Senokot S (docu 50mg/senna 8.6mg)), 1 tabs, ORAL, F3GUYQC, PRN fluticasone nasal(fluticasone 50 mcg/inh nasal spray), 1 sprays, Nasal, BID hydrOXYzine(hydrOXYzine hydrochloride = Atarax), 25 mg= 1 tabs, ORAL, BID iron sucrose(Venofer), 200 mg= 10 mL, IV Push, [id number] loperamide, 4 mg= 2 caps, ORAL, PRN, PRN loratadine, 10 mg= 1 tabs, ORAL, DAILY, PRN magnesium hydroxide(Milk of Magnesia Conc 10ml =30ml MOM), 10 mL, ORAL, DAILY, PRN methocarbamol, 750 mg= 1 tabs, ORAL, [id number], PRN nystatin topical = Mycostatin, 1 carola, Topical, TID, PRN ocular lubricant(Artificial Tears), 2 drops, Both Eyes, [id number], PRN pantoprazole(Protonix), 40 mg, IV Push, [id number] polyethylene glycol 3350(MiraLax), 17 g= 1 packets, ORAL, DAILY, PRN promethazine = Phenergan, 25 mg= 1 tabs, ORAL, T6XPVWO, PRN sodium biphosphate-sodium phosphate(Fleet Phospho Soda Enema), 1 bottles, Rectal, DAILY, PRN Lab Results Test Name Test Result Date/Time BUN 7 mg/dL 09/05/2024 06:08 EST Na 141 mmol/L 09/05/2024 06:08 EST K3.7 mmol/L 09/05/2024 06:08 EST Chloride 104 mmol/L 09/05/2024 06:08 EST CO2, venous 29.0 mmol/L 09/05/2024 06:08 EST Glucose 167 mg/dL 09/05/2024 06:08 EST Creatinine 0.5 mg/dL 09/05/2024 06:08 EST Estimated Creatinine Clearance 116.85 mL/min 09/05/2024 08:05 EST Total Protein 6.4 g/dL 09/05/2024 06:08 EST Calcium 8.6 mg/dL 09/05/2024 06:08 EST Bilirubin, Total 1.20 mg/dL 09/05/2024 06:08 EST Alk Phos 76 unit/L 09/05/2024 06:08 EST GOT 42 unit/L 09/05/2024 06:08 EST GPT 10 unit/L 09/05/2024 06:08 EST BUN/Creat Ratio 14.0 09/05/2024 06:08 EST Calculated Osmolality 283 mOsm/kg 09/05/2024 06:08 EST Globulin 3.7 g/dL 09/05/2024 06:08 EST A/G Ratio 0.7 09/05/2024 06:08 EST Magnesium 1.7 mg/dL 09/05/2024 06:08 EST ALB 2.7 g/dL 09/05/2024 06:08 EST Glomerular Filtration Rate >60 mL/min/1.73m? 09/05/2024 06:08 EST GFR AA >60 09/05/2024 06:08 EST WBC 4.2 x103/uL 09/05/2024 06:08 EST RBC 3.40 x106/uL 09/05/2024 06:08 EST HGB 7.6 g/dL 09/05/2024 06:08 EST HGB 7.4 g/dL 09/05/2024 06:08 EST HGB 7.9 g/dL 09/05/2024 00:00 EST HCT 25.5 % 09/05/2024 06:08 EST HCT 24.4 % 09/05/2024 06:08 EST HCT 26.3 % 09/05/2024 00:00 EST MCV 75.0 fL 09/05/2024 06:08 EST MCH 22.4 pg 09/05/2024 06:08 EST MCHC 29.9 g/dL 09/05/2024 06:08 EST RDW 22.4 % 09/05/2024 06:08 EST Platelet 166 x103/uL 09/05/2024 06:08 EST MPV 8.6 fL 09/05/2024 06:08 EST Nucleated RBC 0 /100WBC 09/05/2024 06:08 EST Red Blood Cell Morphology See Notes 09/05/2024 06:08 EST Scan Differential Diff Scd 09/05/2024 06:08 EST Lymph % 24.3 % 09/05/2024 06:08 EST [place] % 7.6 % 08/09 (more content not included)... Normal [facility] [place] Protocol/Pre-Proc TimeOut-Texton 09-06-2024 [place] Protocol/Pre-Proc TimeOut-Text [place] Protocol Entered On: 09/06/2024 13:23 EST Performed On: 09/06/2024 13:21 EST by Allegra Harris RN All Procedures Procedure this U.P. is completed for: : egd Date/Time Pre-Procedure Verification : 09/06/2024 13:22 EST Procedure Location : Endoscopy Pre-Procedure Verification : Patient Identification (Name & Date), Informed Consent (Signed, Dated), Procedure Identified by Patient, Site Identification N/A Allegra Harris RN - 09/06/2024 13:21 EST Allergy (As Of: 09/06/2024 13:23:02 EST) Allergies (Active) aspirin Estimated Onset Date: Unspecified ; Reactions: n/v ; Created By: Nic Keith RPh; Reaction Status: Active ; Category: Drug ; Substance: aspirin ; Type: Allergy ; Updated By: Nic Keith RPh; Reviewed Date: 09/06/2024 13:22 EST Darvon Estimated Onset Date: Unspecified ; Created By: Ramona Queen RN; Reaction Status: Active ; Category: Drug ; Substance: Darvon ; Type: Allergy ; Updated By: Ramona Queen RN; Reviewed Date: 09/06/2024 13:22 EST iodine Estimated Onset Date: Unspecified ; Reactions: vomiting ; Created By: Nic Keith RPh; Reaction Status: Active ; Category: Drug ; Substance: iodine ; Type: Allergy ; Updated By: Nic Keith RPh; Reviewed Date: 09/06/2024 13:22 EST morphine Estimated Onset Date: Unspecified ; Created By: Blanka Blair RN; Reaction Status: Active ; Category: Drug ; Substance: morphine ; Type: Allergy ; Updated By: Blanka Blair RN; Reviewed Date: 09/06/2024 13:22 EST Nucynta Estimated Onset Date: Unspecified ; Reactions: Swelling ; Created By: Blanka Blair RN; Reaction Status: Active ; Category: Drug ; Substance: Nucynta ; Type: Allergy ; Updated By: Blanka Blair RN; Reviewed Date: 09/06/2024 13:22 EST propofol Estimated Onset Date: Unspecified ; Created By: Ramona Queen RN; Reaction Status: Active ; Category: Drug ; Substance: propofol ; Type: Allergy ; Updated By: Ramona Queen RN; Reviewed Date: 09/06/2024 13:22 EST Skelaxin Estimated Onset Date: Unspecified ; Reactions: Itching ; Created By: Josie Herring RN; Reaction Status: Active ; Category: Drug ; Substance: Skelaxin ; Type: Allergy ; Updated By: Josie Herring RN; Reviewed Date: 09/06/2024 13:22 EST sulfa drugs Estimated Onset Date: Unspecified ; Reactions: vomiting ; Created By: Nic Keith RPh; Reaction Status: Active ; Category: Drug ; Substance: sulfa drugs ; Type: Allergy ; Updated By: Nic Keith RPh; Reviewed Date: 09/06/2024 13:22 EST tetracycline Estimated Onset Date: Unspecified ; Reactions: hives ; Created By: Nic Keith RPh; Reaction Status: Active ; Category: Drug ; Substance: tetracycline ; Type: Allergy ; Updated By: Nic Keith RPh; Reviewed Date: 09/06/2024 13:22 EST Zantac Estimated Onset Date: Unspecified ; Created By: Nic Keith RPh; Reaction Status: Active ; Category: Drug ; Substance: Zantac ; Type: Allergy ; Updated By: Nic Keith RPh; Reviewed Date: 09/06/2024 13:22 EST Beta Beata Beta Beata History : Patient does not take a Beta Beata Allegra Harris RN - 09/06/2024 13:21 EST Site Marking Site Marking : Procedure is Exempt From Marking Allegra Harris RN - 09/06/2024 13:21 EST Surgery / Sedation Correct Procedure : Accurate Procedure Consent Form, Correct Procedure, Correct Patient Position Herlinda Vitale RN - 09/06/2024 14:35 EST Date/Time of OR Procedure Sedation Checklist : 09/06/2024 14:38 EST Herlinda Vitale RN - 09/06/2024 14:44 EST OR Procedure & Sedation Verification : History & Physical (within 30 days), Nursing Assessment Completed Relevant Images : N/A Relevant Diagnostic Tests : N/A Blood Products : N/A Implants / Equiment : N/A Antibiotics : N/A Safety Precautions : Safety Precautions Based on Patient Medication or History Allegra Harris RN - 09/06/2024 13:21 EST Final Verification Date/Time : 09/06/2024 14:38 EST Herlinda Vitale RN - 09/06/2024 14:44 EST Verification : Patient Identified (Name and Date), Correct Procedure, All Team Members are in Agreement Laterality : N/A Herlinda Vitale RN - 09/06/2024 14:35 EST Normal [facility] ACETAMINOPHEN 500 MG TABon 1 11-06-2023 ACETAMINOPHEN 500 MG TAB PRN Response Entered On: 09/05/2024 22:04 EST Performed On: 09/05/2024 21:47 EST by Heike Greene RN Intervention Information: acetaminophen Performed by Heike Greene RN on 09/05/2024 20:47:00 EST acetaminophen,1000mg ORAL PRN Medication Response PRN Medication used for : Pain PRN Medication Effectiveness : Yes PRN Response Pain Scales : Numeric (8yrs & older) Numeric Pain Scale Age : Numeric (8yrs & older) Actual time of reassessment : No (not needed time is correct) Heike Greene RN - 09/05/2024 22:04 EST Numeric Pain Scale Numeric Pain Scale : 0 = No Pain/ Other Indications Numeric Pain Score : 0 Heike Greene RN - 09/05/2024 22:04 EST Normal [facility] Comment on above: Order Comment: ---At home, patient was taking medication with the following details:Special Instructions: not to exceed 3000 mg/day--- ACETAMINOPHEN 500 MG TAB PRN Response Entered On: 09/05/2024 16:43 EST Performed On: 09/05/2024 10:57 EST by Amada Amin RN Intervention Information: acetaminophen Performed by Amada Amin RN on 09/05/2024 09:57:00 EST acetaminophen,1000mg ORAL PRN Medication Response PRN Medication used for : Pain PRN Medication Effectiveness : Yes PRN Response Pain Scales : Numeric (8yrs & older) Numeric Pain Scale Age : Numeric (8yrs & older) Actual time of reassessment : Yes Amada Amin RN - 09/05/2024 16:43 EST Numeric Pain Scale Numeric Pain Scale : 2 = Mild Pain Numeric Pain Score : 2 Amada Amin RN - 09/05/2024 16:43 EST Normal [facility] Comment on above: Order Comment: --- At home, patient was taking medication with the following details: Special Instructions: not to exceed 3000 mg/day --- AUTO DIFFon 09-05-2024 Baso Count 0.04 x1000 Normal 0.00-0.20 [facility] Comment on above: Performed By: #### C [id number] #### [facility] [address] [place] [address] [employer]: Albert Arana MD Basos % 0.9 % Normal [facility] Comment on above: Performed By: #### C [id number] #### [facility] [address] [place], [place] [address] [employer]: Albert Arana MD Eos Count 0.07 x1000 Normal 0.00-0.50 [facility] Comment on above: Performed By: #### C [id number] #### [facility] [address] [place], [place] [address] [employer]: Albert Arana MD Eosinophils/100 WBC (Bld) 1.6 % Normal [facility] Comment on above: Performed By: #### C [id number] #### [facility] [address] [place] [address] [employer]: Albert Arana MD Lymph Count 1.02 x1000 Low 1.20-4.80 [facility] Comment on above: Performed By: #### C [id number] #### [facility] [address] [place] [address] [employer]: Albert Arana MD Lymphocytes/100 WBC (Bld) 24.3 % Normal [facility] Comment on above: Performed By: #### C [id number] #### [facility] [address] [place] [address] [employer]: Albert Arana MD [place] Count 0.32 x1000 Normal 0.10-1.00 [facility] Comment on above: Performed By: #### C [id number] #### [facility] [address] [place] [address] [employer]: Albert Arana MD Monocytes/100 WBC (Bld) 7.6 % Normal [facility] Comment on above: Performed By: #### C [id number] #### [facility] [address] [place] [address] [employer]: Albert Arana MD Neutrophil Count (ANC) 2.75 x1000 Normal 1.40-8.80 [facility] Comment on above: Performed By: #### C [id number] #### [facility] [address] [place] [address] [employer]: Albert Arana MD Neutrophils/100 WBC (Bld) 65.6 % Normal [facility] Comment on above: Performed By: #### C [id number] #### [facility] [address] [place] [address] [employer]: Albert Arana MD Red Blood Cell Morphology See Notes Abnormal [facility] Comment on above: Result Comment: Micr ocytosis 1+ Hypochromia 3+ Anisocytosis 3+ Polychromasia 1+ Performed By: #### C D:[id number] #### [facility] [address] [place] [address] [employer]: Albert Arana MD Scan Differential Diff Scd Normal [facility] Comment on above: Result Comment: Slid e reviewed by technologist. Performed By: #### C D:[id number] #### [facility] [address] [place] [address] [employer]: Albert Arana MD COMPMETAon 09-05-2024 Albumin [Mass/Vol] 2.7 g/dL Low 3.4-5.0 [facility] Comment on above: Performed By: #### C D:[id number] #### [facility] [address] [place] [address]686 [employer]: Albert Arana MD Albumin/Globulin [Mass ratio] 0.7 {ratio} Normal [facility] Comment on above: Performed By: #### C [id number] #### [facility] [address] [place] [address] [employer]: Albert Arana MD Alk Phos 76 unit/L Normal 45-117 [facility] Comment on above: Performed By: #### C [id number] #### [facility] [address] [place] [address] [employer]: Albert Arana MD Bilirubin [Mass/Vol] 1.20 mg/dL Normal 0.30-1.20 [facility] Comment on above: Result Comment: Use of this assay is not recommended for patients undergoing treatment with eltrombopag due to the potential for falsely elevated results. Performed By: #### C D:[id number] #### [facility] [address] [place] [address] 6[address] [employer]: Albert Arana MD Calcium [Mass/Vol] 8.6 mg/dL Low 8.7-10.4 [facility] Comment on above: Performed By: #### C D:[id number] #### [facility] [address] [place], [place] [address] [employer]: Albert Arana MD Chloride [Moles/Vol] 104 mmol/L Normal 98-107 [facility] Comment on above: Performed By: #### C D:[id number] #### [facility] [address] [place] [address]367 [employer]: Albert Arana MD CO2 [Moles/Vol] 29.0 mmol/L Normal 20.0-31.0 [facility] Comment on above: Performed By: #### C D:[id number] #### [facility] [address] [place] [address] [employer]: Albert Arana MD Creatinine [Mass/Vol] 0.5 mg/dL Normal 0.5-0.8 [facility] Comment on above: Performed By: #### C D:[id number] #### [facility] [address] [place], [place] [address] [employer]: Albert Arana MD GFR AA >60 Normal [facility] Comment on above: Result Comment: Afri can Bhutanese GFR Calc Medical judgement is necessary to interpret GFR. The calculated GFR may not accurately reflect renal status in patients >70 years, women, acutely ill hospitalized patients and patients with acute renal failure or known renal disease. The MDRD GFR formula is valid only for adults greater than 18 years of age. Note: Creatinine clearance (not GFR) should be used for drug dosing. Performed By: #### C D:[id number] #### [facility] [address] [place] [address] [employer]: Albert Arana MD Globulin (S) [Mass/Vol] 3.7 g/dL Normal [facility] Comment on above: Performed By: #### C [id number] #### [facility] [address] [place] [address] [employer]: Albert Arana MD Glomerular Filtration Rate >60 Normal [facility] Comment on above: Result Comment: Non- GFR Calc Medical judgement is necessary to interpret GFR. The calculated GFR may not accurately reflect renal status in patients >70 years, women, acutely ill hospitalized patients and patients with acute renal failure or known renal disease. The MDRD GFR formula is valid only for adults greater than 18 years of age. Note: Creatinine clearance (not GFR) should be used for drug dosing. Performed By: #### C D:[id number] #### [facility] [address] [place] [address] [employer]: Albert Arana MD Glucose [Mass/Vol] 167 mg/dL High 74-106 [facility] Comment on above: Performed By: #### C D:[id number] #### [facility] [address] [place] [address] 19055 [employer]: Albert Arana MD GOT 42 unit/L High 15-37 [facility] Comment on above: Performed By: #### C D:[id number] #### [facility] [address] [place] [address] 41691 [employer]: Albert Arana MD GPT 10 unit/L Normal 10-49 [facility] Comment on above: Performed By: #### C D:[id number] #### [facility] [address] [place] [address] 14197 [employer]: Albert Arana MD Osmolality [Osmolality] 283 mosm/kg Normal 275-295 [facility] Comment on above: Performed By: #### C D:[id number] #### [facility] [address] [place] [address] 7[address]88 [employer]: Albert Arana MD Potassium [Moles/Vol] 3.7 mmol/L Normal 3.5-5.1 [facility] Comment on above: Result Comment: Spec imen slightly hemolyzed. Results may be affected. Performed By: #### C D:[id number] #### [facility] [address] [place] [address]201 [employer]: Albert Arana MD Protein [Mass/Vol] 6.4 g/dL Normal 5.7-8.2 [facility] Comment on above: Result Comment: Tota l Protein results may be increased in patients receiving dextran as a blood volume mental health professional Performed By: #### C D:[id number] #### [facility] [address] [place] [address] 82660 [employer]: Albert Arana MD Sodium [Moles/Vol] 141 mmol/L Normal 135-145 [facility] Comment on above: Performed By: #### C D:[id number] #### [facility] [address] [place] [address] 71879 [employer]: Albert Arana MD Urea nitrogen [Mass/Vol] 7 mg/dL Low 9-23 [facility] Comment on above: Result Comment: - Ve nipuncture should occur prior to N-Acetyl Cysteine (NAC) or Metamizole (Sulpyrine) administration due to the potential for falsely depressed results. - Blood samples from some patients with monoclonal gammopathies may produce falsely elevated results Performed By: #### C D:[id number] #### [facility] [address] [place] [address]37 [employer]: Ablert Arana MD Urea nitrogen/Creatinine [Mass ratio] 14.0 mg/mg Normal [facility] Comment on above: Performed By: #### C [id number] #### [facility] [address] [place] [address] [employer]: Albert Arana MD AND [facility] 09-05-2024 DxH Actions See Notes Abnormal [facility] Comment on above: Result Comment: Scan for RBC Morphology SNV Performed By: #### 1 67895 ####[facility] [address] [place] [address] Medical Director: Albert Arana MD Hematocrit (Bld) [Volume fraction] 24.4 % Low 36.0-46.0 [facility] Comment on above: Performed By: #### 1 23352 ####[facility] [address] [place] [address] Medical Director: Albert Arana MD Hemoglobin (Bld) [Mass/Vol] 7.4 g/dL Low 12.0-16.0 [facility] Comment on above: Performed By: #### 1 13464 ####[facility] [address] [place] [address] Medical Director: Albert Arana MD Dx Actions See Notes Abnormal [facility] Comment on above: Result Comment: Scan for RBC Morphology SNV Performed By: #### 1 68384 ####[facility] [address] [place] [address] Medical Director: Albert Arana MD Hematocrit (Bld) [Volume fraction] 26.3 % Low 36.0-46.0 [facility] Comment on above: Performed By: #### 1 77342 ####[facility] [address] [place] [address] Medical Director: Albert Arana MD Hemoglobin (Bld) [Mass/Vol] 7.9 g/dL Low 12.0-16.0 [facility] Comment on above: Performed By: #### 1 59954 ####[facility] [address] [place] [address] Medical Director: Albetr Arana MD HEMOon 09-05-2024 DIFF? No Normal [facility] Comment on above: Performed By: #### 1 10125, 440176, 8976868, 419517 ####[facility] [address] [place] [address] Medical Director: Albert Arana MD Nucleated RBC 0 /100WBC Normal [facility] Comment on above: Performed By: #### 1 99334, 339060, 8607233, 017090 ####[facility] [address] [place], [place] [id number]) [phone] Director: Albert Arana MD [facility] Actions See Notes Abnormal [facility] Comment on above: Result Comment: Scan for RBC Morphology SNV Performed By: #### 1 76936, 555959, 0777468, 459048 ####[facility] [address] [place] [address] Medical Director: Albert Arana MD Erythrocyte distribution width (RBC) [Ratio] 22.4 % High 11.5-14.5 [facility] Comment on above: Performed By: #### 1 50344, 191882, 5340148, 340559 ####[facility] [address] [place] [address] Medical Director: Albert Arana MD Hematocrit (Bld) [Volume fraction] 25.5 % Low 36.0-46.0 [facility] Comment on above: Performed By: #### 1 73600, 953875, 6589913, 479767 ####[facility] [address] [place], [place] [address]) [phone] Director: Albert Arana MD Hemoglobin (Bld) [Mass/Vol] 7.6 g/dL Low 12.0-16.0 [facility] Comment on above: Performed By: #### 1 64967, 256408, 5843203, 203486 ####[facility] [address] [place] [address] Medical Director: Albert Arana MD Instr WBC 4.2 Normal [facility] Comment on above: Performed By: #### 1 77566, 985683, 9311505, 073186 ####[facility] [address] [place], [place] [address]) [phone] Director: Albert Arana MD MCH (RBC) [Entitic mass] 22.4 pg Low 27.0-34.0 [facility] Comment on above: Performed By: #### 1 12948, 821242, 7644086, 830015 ####[facility] [address] [place], [place] [address]) [phone] Director: Albert Arana MD MCHC (RBC) [Mass/Vol] 29.9 g/dL Low 32.0-37.0 [facility] Comment on above: Performed By: #### 1 01481, 005940, 2566738, 117536 ####[facility] [address] [place], [place] [address]) [phone] Director: Albert Arana MD MCV (RBC) [Entitic vol] 75.0 fL Low 80.0-100.0 [facility] Comment on above: Performed By: #### 1 96760, 572738, 1961075, 596590 ####[facility] [address] [place], [place] [address]) [phone] Director: Albert Arana MD Platelet 166 x10 Normal 150-450 [facility] Comment on above: Performed By: #### 1 80978, 247774, 3092089, 465861 ####[facility] [address] [place], [place] [address]) [phone] Director: Albert Arana MD Platelet mean volume (Bld) [Entitic vol] 8.6 fL Normal 7.4-10.4 [facility] Comment on above: Performed By: #### 1 05035, 880423, 3535532, 058412 ####[facility] [address] [place] [address] Medical Director: Albert Arana MD RBC 3.40 x10 Low 4.20-5.40 [facility] Comment on above: Result Comment: Note : RBC morphology is normal unless otherwise stated. Evaluation performed only if differential is requested. Performed By: #### 1 75661, 799867, 9076029, 540205 ####[facility] [address] [place], [place] [address]) [phone] Director: Albert Arana MD WBC 4.2 x10 Low 4.5-11.0 [facility] Comment on above: Performed By: #### 1 44290, 717651, 6699450, 338789 ####[facility] [address] [place] [address] Medical Director: Albert Arana MD MG LEVELon 09-05-2024 Magnesium [Mass/Vol] 1.7 mg/dL Normal 1.6-2.6 [facility] Comment on above: Performed By: #### 1 70347, 181284, 3109191, 093987 ####[facility] [address] [place], [place] [address]) [phone] Director: Albert Arana MD Nursing Clinical Noteon 12-2 Nursing Clinical Note 0830 A&O x3, denie s abdominal pain or nausea, does report reflux/heart burn. No emesis or rectal bleeding, eliquis on hold- pt updated on POC. Per pt, she is nonambulatory at baseline. Purewick in place, pt incontinent at baseline. Skin warm, pale. LLE weak, pt reports residual from CVA. Poor appetite, only eating about 25% of meals. All needs met, call light within reach. 1730 q2h turns, plan for EGD tomorrow 09/[address] Overton, pt to be NPO at midnight, pt updated and understands. Verbal orders for IV venofer and IV reglan- pt reports not tolerating reglan and dose refused- Dr. Overton aware. Normal [facility] OT Acute Time Spent With Pat ient - Texton 09-05-2024 OT Acute Time Spent With Patient - Text OT Acute Time Spent With Patient Entered On: 09/05/2024 11:22 EST Performed On: 09/05/2024 11:21 EST by Debora Palafox Time Spent with Patient OT Time In : 10:20 EST OT Time Out : 10:20 EST OT Evaluation Units, Moderate Complexity : 0 units OT Individual Eval Time,Moderate Complex : 0 minutes OT Therapeutic Activities Units : 0 units OT Therapeutic Activities Time : 0 minutes JONG Therapeutic Activities Units : 0 units OT Total Timed Code Treatment Units : 0 units OT Total Timed Code Treatment Minutes : 0 minutes 8 Min Rule Unit Check OT IP : 0 units OT Total Untimed Code Treatment Minutes : 0 minutes OT Total Treatment Time Rehab : 0 minutes 8 Min Rule Unit Difference OT IP : 0 PMR Chart Review - OT : Yes Debora Palafox - 09/05/2024 11:21 EST OT Units Lost Grid OT Units Lost #1 Reason : Other: Pt. [facility]CF resident no skilled therapy needs at this time. Pt. jose vogt at baseline. OT to d/c order this date. Debora Palafox - 09/05/2024 11:21 EST Normal [facility] Optometric Aide Detailson 2023 Optometric Aide Details Optometric Aide Details Entered On: 09/05/2024 22:18 EST Performed On: 09/05/2024 22:18 EST by Heike Greene RN Optometric Aide Details Transport Mode Order Detail EV : Bed Isolation Precautions RTF : Possible Sepsis, 09/05/2024 08:07:05 EST, 09/05/2024 08:07:05 EST, Completed Level of Care Order, 09/04/2024 12:25:00 EST, Medical Admit as Inpatient, IV medications, trending H/H, multiple transfusions, Ordered Level of Care Order, 09/03/2024 20:38:00 EST, Observation Outpatient with Observation Services, DEISY DILL, [facility], Ordered Transfer Care of Patient to Attending, 09/03/2024 20:38:00 EST, Upon discharge from the ED, all continued medications and orders become the responsibility of the admitting/attending physician., Ordered Obtain Consent, 09/03/2024 20:37:00 EST, Consent/Refusal for Transfusion of Blood or Blood Products Form [id number], 09/03/2024 20:37:00 EST, Ordered Obtain Consent, 09/03/2024 19:26:00 EST, Obtain Blood Transfusion Consent, 09/03/2024 19:26:00 EST, Ordered Isolation Precaution Order Detail EV : NONE IV Order Detail - EV : Yes Oxygen Order Detail EV : No Order Detail EV : No Pacemaker Order Detail : 0 Optometric Aide Details Review Status : Reviewed, no changes Nurse Collects Blood Specimens : No Heike Greene RN - 09/05/2024 22:18 EST Normal [facility] Comment on above: Order Comment: --- At home, patient was taking medication with the following details: Special Instructions: not to exceed 3000 mg/day --- Optometric Aide Details Optometric Aide Details Entered On: 09/05/2024 0:46 EST Performed On: 09/05/2024 0:46 EST by Heike Greene RN Optometric Aide Details Transport Mode Order Detail EV : Bed Isolation Precautions RTF : Level of Care Order, 09/04/2024 12:25:00 EST, Medical Admit as Inpatient, IV medications, trending H/H, multiple transfusions, Ordered Consult Physician, 09/04/2024 10:32:00 EST, BROOKLYNN DILL, [facility], anemia, Completed Level of Care Order, 09/03/2024 20:38:00 EST, Observation Outpatient with Observation Services, DEISY DILL, [facility], Ordered Transfer Care of Patient to Attending, 09/03/2024 20:38:00 EST, Upon discharge from the ED, all continued medications and orders become the responsibility of the admitting/attending physician., Ordered Obtain Consent, 09/03/2024 20:37:00 EST, Consent/Refusal for Transfusion of Blood or Blood Products Form [id number], 09/03/2024 20:37:00 EST, Ordered Obtain Consent, 09/03/2024 19:26:00 EST, Obtain Blood Transfusion Consent, 09/03/2024 19:26:00 EST, Ordered Isolation Precaution Order Detail EV : NONE IV Order Detail - EV : Yes Oxygen Order Detail EV : No Order Detail EV : No Pacemaker Order Detail : 0 Optometric Aide Details Review Status : Reviewed, no changes Nurse Collects Blood Specimens : Hali Greene RN, Heike - 09/05/2024 0:46 EST Normal [facility] Comment on above: Order Comment: --- At home, patient was taking medication with the following details: Special Instructions: not to exceed 3000 mg/day --- PT Acute Time Spent With Pat ient - Texton 09-05-2024 PT Acute Time Spent With Patient - Text PT Acute Time Spent With Patient Entered On: 09/05/2024 11:06 EST Performed On: 09/05/2024 10:20 EST by Alexandrea CALDWELL DPT, Lindsey Time Spent with Patient PT Evaluation Units, Low Complexity : 0 units PT Individual Eval Time, Low Complexity : 0 minutes PT Time In : 10:20 EST PT Time Out : 10:20 EST PT Total Untimed Code Treatment Minutes : 0 minutes PT Total Treatment Time Rehab : 0 minutes PMR Chart Review : Yes Alexandrea CALDWELL DPT, Lindsey - 09/05/2024 11:05 EST PT Units Lost Grid PT Units Lost #1 Reason : Missed Acute Care Therapy Session (Comment: PT referral received, chart reviewed. Pt from [facility] where she has been non-ambulatory > 3 yrs 2/2 CVA. Per chart, patient is a jose lift for all OOB activity and does not receive PT/OT services. Pt requires assist for all ADLs and is dependent for IADLS. Will DC PT orders as patient has no skilled needs while in house or at DC. [Alexandrea CALDWELL DPT, Lindsey - 09/05/2024 11:05 EST] ) Alexandrea CALDWELL DPT, Lindsey - 09/05/2024 11:05 EST Normal [facility] Progress Note-Physicianon Progress Note-Physician Patient: BRADLEY MATOS Age: 59 years Sex: Female : 1965 Associated Diagnoses: None Author: BROOKLYNN DILL, EDDY Subjective complaining of nausea and abdominal discomfort. Hemoglobin 7.4 today. Patient is with severe iron deficiency anemia. Health Status Allergies: Allergic Reactions (Selected) Severity Not Documented Aspirin- N/v. Darvon- No reactions were documented. Iodine- Vomiting. Morphine- No reactions were documented. Nucynta- Swelling. Propofol- No reactions were documented. Skelaxin- Itching. Sulfa drugs- Vomiting. Tetracycline- Hives. Zantac- No reactions were documented. Medications (24) Active Scheduled: (7) ACETAMINOPHEN 500 MG TAB 1,000 mg 2 tabs, ORAL, BID ATORVASTATIN 40MG TAB 40 mg 1 tabs, ORAL, QHS CYANOCOBALAMIN 500MCG TAB 1,000 mcg 2 tabs, ORAL, DAILY DESVENLAFAXINE 50MG CR TAB 100 mg 2 tabs, ORAL, DAILY FLUTICASONE 0.05% SPRAY 16GM 1 sprays, Nasal, BID HydrOXYzine HCL 25MG TABLET 25 mg 1 tabs, ORAL, BID PANTOPRAZOLE 40MG INJECTION 40 mg, IV Push, [id number] Continuous: (0) PRN: (17) ACETAMINOPHEN 500 MG TAB 1,000 mg 2 tabs, ORAL, DAILY ALUM-MAG SIMETHICONE 30 ML 30 mL, ORAL, [id number] APAP 325MG/OXYCODONE 5MG TAB 1 tabs, ORAL, [id number] ARTIFICIAL TEARS 15 ML 2 drops, Both Eyes, [id number] BISACODYL 10MG SUPP 10 mg 1 supp, Rectal, DAILY BISACODYL 5MG TAB 5 mg 1 tabs, ORAL, [id number] DICYCLOMINE 10MG CAPSULE 20 mg 2 caps, ORAL, [id number] DOCUSATE 50MG/SENNA 8.6MG TABLET 1 tabs, ORAL, [id number] DOCUSATE SODIUM 100MG CAPSULE 100 mg 1 caps, ORAL, BID LOPERAMIDE 2MG CAPSULE 4 mg 2 caps, ORAL, PRN LORATADINE 10MG TABLET 10 mg 1 tabs, ORAL, DAILY MAGNESIUM HYDROXIDE 30ML=10ML 10 mL, ORAL, DAILY METHOCARBAMOL 750MG TABLET 750 mg 1 tabs, ORAL, [id number] NYSTATIN POWDER 15GM 1 carola, Topical, TID PHOSPHO SODA ENEMA 1 bottles, Rectal, DAILY POLYETHYLENE GLYCOL 3350- 17 GM PACKET 17 g 1 packets, ORAL, DAILY PROMETHAZINE 25MG TABLET 25 mg 1 tabs, ORAL, [id number] Objective Vital Signs (last 24 hrs) Last Charted Temp Oral 36.8 degC (SEP 05 15:19) Heart Rate Peripheral H 106 bpm (SEP 05 15:20) Resp Rate 17 br/min (SEP 05 00:28) SBP H 128 mmHg (SEP 05 15:19) DBP 72 mmHg (SEP 05 15:19) General: Alert and oriented. Not in acute distress. HEENT: No pallor, no jaundice. Respiratory: Lungs CTA Cardiovascular: Regular rate and rhythm; no murmur. Gastrointenstinal: Extremities: No pedal edema. Review / Management Labs (Last four charted values) WBC L 4.2 (SEP 05) L 4.3 (SEP 04) L 4.4 (SEP 03) Hgb L 7.4 (SEP 05) L 7.6 (SEP 05) L 7.9 (SEP 05) L 7.2 (SEP 04) Hct L 24.4 (SEP 05) L 25.5 (SEP 05) L 26.3 (SEP 05) L 23.8 (SEP 04) Plt 166 (SEP 05) 174 (SEP 04) 169 (SEP 03) Na 141 (SEP 05) 140 (SEP 04) 140 (SEP 03) K 3.7 (SEP 05) L 3.3 (SEP 04) 3.5 (SEP 03) CO2 29.0 (SEP 05) 30.0 (SEP 04) 27.0 (SEP 03) Cl 104 (SEP 05) 104 (SEP 04) 105 (SEP 03) Cr 0.5 (SEP 05) 0.5 (SEP 04) 0.6 (SEP 03) BUN L 7 (SEP 05) L 7 (SEP 04) L 7 (SEP 03) Glucose Random H 167 (SEP 05) H 130 (SEP 04) H 179 (SEP 03) Mg 1.7 (SEP 05) Ca L 8.6 (SEP 05) L 8.6 (SEP 04) L 8.5 (SEP 03) INR 1.2 (SEP 03) Impression and Plan Impression: #1 gastroesophageal reflux disease. #2 severe iron deficiency anemia. #3 rule out GI bleeding. Plan: Patient will be continued on IV Protonix 40 twice daily. Reglan 10 mg IV every 8 hours as needed. Will start her on IV Venofer 200 mg daily x 3. Will schedule her for EGD for tomorrow procedure well explained to the patient. Continue to follow CBC. Normal [facility] Rehabilitation Inpt - Assign ment - [place] 09-05-2024 Rehabilitation Inpt - Assignment - Text Rehabilitation Inpatient - Assignment Entered On: 09/05/2024 13:33 EST Performed On: 09/05/2024 13:33 EST by Debora Palafox Rehabilitation Inpatient - Assignment Occupational Therapy : PMRPMichelle dash Kathryn E - 09/05/2024 13:33 EST Normal [facility] Rehabilitation Inpt - Assignment - Text Rehabilitation Inpatient - Assignment Entered On: 09/05/2024 7:18 EST Performed On: 09/05/2024 7:18 EST by Alexandrea PT, DPTDede Rehabilitation Inpatient - Assignment Physical Therapy : Alexandrea CALDWELL, DPT, Dede Lechuga PT, DPTDede - 09/05/2024 7:18 EST Normal [facility] Comment on above: Order Comment: --- At home, patient was taking medication with the following details: Special Instructions: not to exceed 3000 mg/day --- Rehabilitation Inpt - Assignment - Text Rehabilitation Inpatient - Assignment Entered On: 09/05/2024 7:15 EST Performed On: 09/05/2024 7:14 EST by Debora Palafox Rehabilitation Inpatient - Assignment Occupational Therapy : Debora Palafox Kathryn E - 09/05/2024 7:14 EST Normal [facility] ACETAMINOPHEN 500 MG TABon 1 11-05-2023 ACETAMINOPHEN 500 MG TAB PRN Response Entered On: 09/04/2024 21:30 EST Performed On: 09/04/2024 21:30 EST by Heike Greene RN Intervention Information: acetaminophen Performed by Heike Greene RN on 09/04/2024 20:58:00 EST acetaminophen,1000mg ORAL PRN Medication Response PRN Medication used for : Pain PRN Medication Effectiveness : Yes PRN Response Pain Scales : Numeric (8yrs & older) Numeric Pain Scale Age : Numeric (8yrs & older) Actual time of reassessment : No (not needed time is correct) Heike Greene RN - 09/04/2024 21:30 EST Numeric Pain Scale Numeric Pain Scale : 1 = Mild Pain Numeric Pain Score : 1 Heike Greene RN - 09/04/2024 21:30 EST Normal [facility] Comment on above: Order Comment: --- At home, patient was taking medication with the following details: Special Instructions: not to exceed 3000 mg/day --- Admission Assessment Adulton 09-04-2024 Admission Assessment Adult Adult Admission Data Entered On: 09/04/2024 15:46 EST Performed On: 09/04/2024 8:43 EST by Amada Amin RN [employer] Patient Safety Grid ID Band on and Verified : Yes Amada Amin RN - 09/04/2024 15:43 EST (As Of: 09/04/2024 15:46:15 EST) Allergies (Active) aspirin Estimated Onset Date: Unspecified ; Reactions: n/v ; Created By: Nic Keith RPh; Reaction Status: Active ; Category: Drug ; Substance: aspirin ; Type: Allergy ; Updated By: Nic Keith RPh; Reviewed Date: 09/03/2024 19:37 EST Darvon Estimated Onset Date: Unspecified ; Created By: Ramona Queen RN; Reaction Status: Active ; Category: Drug ; Substance: Darvon ; Type: Allergy ; Updated By: Ramona Queen RN; Reviewed Date: 09/03/2024 19:37 EST iodine Estimated Onset Date: Unspecified ; Reactions: vomiting ; Created By: Nic Keith RPh; Reaction Status: Active ; Category: Drug ; Substance: iodine ; Type: Allergy ; Updated By: Nic Keith RPh; Reviewed Date: 09/03/2024 19:37 EST morphine Estimated Onset Date: Unspecified ; Created By: Blanka Blair RN; Reaction Status: Active ; Category: Drug ; Substance: morphine ; Type: Allergy ; Updated By: Blanka Blair RN; Reviewed Date: 09/03/2024 19:37 EST Nucynta Estimated Onset Date: Unspecified ; Reactions: Swelling ; Created By: Blanka Blair RN; Reaction Status: Active ; Category: Drug ; Substance: Nucynta ; Type: Allergy ; Updated By: Blanka Blair RN; Reviewed Date: 09/03/2024 19:37 EST propofol Estimated Onset Date: Unspecified ; Created By: Ramona Queen RN; Reaction Status: Active ; Category: Drug ; Substance: propofol ; Type: Allergy ; Updated By: Ramona Queen RN; Reviewed Date: 09/03/2024 19:37 EST Skelaxin Estimated Onset Date: Unspecified ; Reactions: Itching ; Created By: Josie Herring RN; Reaction Status: Active ; Category: Drug ; Substance: Skelaxin ; Type: Allergy ; Updated By: Josie Herring RN; Reviewed Date: 09/03/2024 19:37 EST sulfa drugs Estimated Onset Date: Unspecified ; Reactions: vomiting ; Created By: Nic Keith RPh; Reaction Status: Active ; Category: Drug ; Substance: sulfa drugs ; Type: Allergy ; Updated By: Nic Keith RPh; Reviewed Date: 09/03/2024 19:37 EST tetracycline Estimated Onset Date: Unspecified ; Reactions: hives ; Created By: Nic Keith RPh; Reaction Status: Active ; Category: Drug ; Substance: tetracycline ; Type: Allergy ; Updated By: Nic Keith RPh; Reviewed Date: 09/03/2024 19:37 EST Zantac Estimated Onset Date: Unspecified ; Created By: Nic Keith RPh; Reaction Status: Active ; Category: Drug ; Substance: Zantac ; Type: Allergy ; Updated By: Nic Keith RPh; Reviewed Date: 09/03/2024 19:37 EST Subjective Pain Symptoms : No Numeric Pain Scale Acceptable Intensity : 0 = No Pain Question Ability to Self Report Pain : No Unable to Self Report Pain : No General Symptoms : Weakness Sensory Deficits : None Cardiopulmonary Symptoms : None GI Symptoms : None Skin Symptoms : Dryness/excessive, Excoriation Genitourinary Symptoms : Incontinence Neuromuscular Symptoms : None Abuse/Violence Concerns? : Patient denies Amada Amin RN - 09/04/2024 15:43 EST Depression Screening Patient able to verbalize? : Yes Feeling Down, Depressed, Hopeless : Not at all Little Interest - Pleasure in Activities : Not at all Initial Depression Screen Score : 0 Depression Screening Score 0 : No IP Pt being evaluated or treated for BH conditions : No Amada Amin RN - 09/04/2024 15:43 EST Isidra Coma Eye Opening Response [place] : Spontaneously Best Verbal Response Isidra : Oriented Best Motor Response [place] : Obeys simple commands [place] Coma Score : 15 Amada Amin RN 09/04/2024 15:43 EST Neuro Characteristics of Speech : Clear Orientation : Oriented x 3 Level of Consciousness : Alert Affect / Behavior : Appropriate, Calm, Cooperative Sensory Perception Vladimir : Slightly limited Extremity Movement : Unequal Gait : Unable to assess Aspiration Risk : None CN VII Facial Expression and Symmetry : Facial movement symmetrical Amada Amin RN 09/04/2024 15:43 EST CardioVascular Heart Rhythm : Regular Capillary Refill : Less than 2 seconds Edema : Localized Amada Amin RN 09/04/2024 15:43 EST Respiratory Respirations : Unlabored Respiratory Pattern Description : Regular Amada Amin RN 09/04/2024 15:43 EST LEO : Clear LLL : Clear RUL : Clear RML : Clear RLL : Clear Amada Amin RN 09/04/2024 15:43 EST Cough : None Amada Amin RN 09/04/2024 15:43 EST Musculoskeletal Activity Vladimir : Chairfast Mobility Vladimir : Very limited Ambulatory Devices : Wheelchair Special Orthopedic Devices : None ADLs : Moderate assist Amada Amin RN 09/04/2024 15:43 EST GI Abdomen Description : Symmetric, Rounded Abdomen Palpation : Soft Amada Amin RN 09/04/2024 15:43 EST Bowel Sounds Grid LUQ : Present RUQ : Present LLQ : Present RLQ : Present Sesek R (more content not included)... Normal [facility] Comment on above: Order Comment: --- At home, patient was taking medication with the following details: Special Instructions: not to exceed 3000 mg/day --- Admission History Adulton Admission History Adult Patient History Model Entered On: 09/04/2024 15:49 EST Performed On: 09/04/2024 15:46 EST by Amada Amin RN Info Preferred Verbal : Kenyan Contact Information : Daiana Matos, daughter [phone] Preferred Written : Kenyan Currently or : Not Applicable Is patient a dialysis patient? : No Amada Amin RN 09/04/2024 15:46 EST Problem List Problem List obtained from : Patient Amada Amin RN 09/04/2024 15:46 EST (As Of: 09/04/2024 15:49:21 EST) Problems(Active) Abnormal gait (SNOMED CT :17939103 ) Name of Problem: Abnormal gait ; Onset Date: 05/01/2015 ; Recorder: Byron Franklin RN; Confirmation: Confirmed ; Classification: Medical ; Code: [id number] ; Contributor System: [employer] NET ; Last Updated: 09/03/2024 23:01 EST ; Life Cycle Date: 09/03/2024 ; Life Cycle Status: Active ; Responsible Provider: Byron Franklin RN; Vocabulary: SNOMED CT Allergic rhinitis (SNOMED CT :086748557 ) Name of Problem: Allergic rhinitis ; Onset Date: 09/17/2018 ; Recorder: Byron Franklin RN; Confirmation: Confirmed ; Classification: Medical ; Code: [id number] ; Contributor System: [employer] NET ; Last Updated: 09/03/2024 23:02 EST ; Life Cycle Date: 09/03/2024 ; Life Cycle Status: Active ; Responsible Provider: Byron Franklin RN; Vocabulary: SNOMED CT Anxiety (SNOMED CT :98586823 ) Name of Problem: Anxiety ; Onset Date: 03/20/2022 ; Recorder: Byron Franklin RN; Confirmation: Confirmed ; Classification: Medical ; Code: [id number] ; Contributor System: [employer] NET ; Last Updated: 09/03/2024 23:02 EST ; Life Cycle Date: 09/03/2024 ; Life Cycle Status: Active ; Responsible Provider: Byron Franklin RN; Vocabulary: SNOMED CT At risk for falls (SNOMED CT :389118784 ) Name of Problem: At risk for falls ; Recorder: SYSTEM; Confirmation: Confirmed ; Classification: Nursing ; Code: [id number] ; Last Updated: 10/19/2013 18:03 EST ; Life Cycle Date: 08/13/2012 ; Life Cycle Status: Active ; Vocabulary: SNOMED CT ; Comments: 08/13/2012 22:37 - SYSTEM Problem added automatically by system based on documentation of a admission to the hospital. Cervical radiculopathy (SNOMED CT :926481205 ) Name of Problem: Cervical radiculopathy ; Onset Date: 08/20/2013 ; Recorder: Byron Franklin RN; Confirmation: Confirmed ; Classification: Medical ; Code: [id number] ; Contributor System: Power[employer] ; Last Updated: 09/03/2024 23:02 EST ; Life Cycle Date: 09/03/2024 ; Life Cycle Status: Active ; Responsible Provider: Byron Franklin RN; Vocabulary: SNOMED CT Chest pain (SNOMED CT :81983700 ) Name of Problem: Chest pain ; Onset Date: 11/03/2015 ; Recorder: Byron Franklin RN; Confirmation: Confirmed ; Classification: Medical ; Code: [id number] ; Contributor System: Power[employer] ; Last Updated: 09/03/2024 23:02 EST ; Life Cycle Date: 09/03/2024 ; Life Cycle Status: Active ; Responsible Provider: Byron Franklin RN; Vocabulary: SNOMED CT Chronic fatigue syndrome (SNOMED CT :48452326 ) Name of Problem: Chronic fatigue syndrome ; Recorder: Byron Franklin RN; Confirmation: Confirmed ; Classification: Medical ; Code: 27969673 ; Contributor System: PowerChart ; Last Updated: 09/03/2024 23:01 EST ; Life Cycle Date: 09/03/2024 ; Life Cycle Status: Active ; Responsible Provider: Byron Franklin RN; Vocabulary: SNOMED CT COVID-19 (SNOMED CT :5288245325 ) Name of Problem: COVID-19 ; Onset Date: 03/09/2022 ; Recorder: Byron Franklin RN; Confirmation: Confirmed ; Classification: Medical ; Code: [id number] ; Contributor System: PowerChart ; Last Updated: 09/03/2024 23:01 EST ; Life Cycle Date: 09/03/2024 ; Life Cycle Status: Active ; Responsible Provider: Byron Franklin RN; Vocabulary: SNOMED CT Degenerative joint disease involving multiple joints (SNOMED CT :873063553 ) Name of Problem: Degenerative joint disease involving multiple joints ; Onset Date: 07/25/2011 ; Recorder: Byron Franklin RN; Confirmation: Confirmed ; Classification: Medical ; Code: [id number] ; Contributor System: PowerChart ; Last Updated: 09/03/2024 23:01 EST ; Life Cycle Date: 09/03/2024 ; Life Cycle Status: Active ; Responsible Provider: Byron Franklin RN; Vocabulary: SNOMED CT Diverticulitis (SNOMED CT :418629277 ) Name of Problem: Diverticulitis ; Onset Date: 01/12/2016 ; Recorder: Byron Franklin RN; Confirmation: Confirmed ; Classification: Medical ; Code: [id number] ; Contributor System: [employer] ; Last Updated: 09/03/2024 23:01 EST ; Life Cycle Date: 09/03/2024 ; Life Cycle Status: Active ; Responsible Provider: Byron Franklin RN; Vocabulary: SNOMED CT Dizziness and giddiness (SNOMED CT :999877164 ) Name of Problem: Dizziness and giddiness ; Onset Date: 04/17/2017 ; Recorder: Byron Franklin RN; Confirmation: Confirmed ; Classification: Medical ; Code: [id number] ; Contributor System: [employer] NET ; Last Updated: 09/03/2024 23:01 EST ; Life Cycle Date: 09/03/2024 ; Life Cycle Status: Active ; Responsible Provider: Byron Franklin RN; Vocabulary: SNOMED CT Eating disorder (SNOMED CT :136502517 ) Name of Problem: Eating (more content not included)... Normal [facility] Comment on above: Order Comment: --- At home, patient was taking medication with the following details: Special Instructions: not to exceed 3000 mg/day --- B12 FOLATEon 09-04-2024 Cobalamin (Vitamin B12) [Mass/Vol] 1470 pg/mL High 211-911 [facility] Comment on above: Performed By: #### 1 [id number] #### [facility] [address] [place] [address] [employer]: Albert Arana MD FOLATE 5.8 ng/mL Normal 5.4-17.5 [facility] Comment on above: Result Comment: Meth otrexate and leucovorin interfere with folate measurement because these drugs cross-react with folate binding proteins. Performed By: #### 1 [id number] #### [facility] [address] [place] [address] [employer]: Albert Arana MD BASICMETAon 09-04-2024 Calcium [Mass/Vol] 8.6 mg/dL Low 8.7-10.4 [facility] Comment on above: Performed By: #### C [id number] #### [facility] [address] [place] [address] [employer]: Albert Arana MD Chloride [Moles/Vol] 104 mmol/L Normal 98-107 [facility] Comment on above: Performed By: #### C [id number] #### [facility] [address] [place] [address] [employer]: Albert Arana MD CO2 [Moles/Vol] 30.0 mmol/L Normal 20.0-31.0 [facility] Comment on above: Performed By: #### C [id number] #### [facility] [address] [place] [address] [employer]: Albert Arana MD Creatinine [Mass/Vol] 0.5 mg/dL Normal 0.5-0.8 [facility] Comment on above: Performed By: #### C [id number] #### [facility] [address] [place], [place] [address] [employer]: Albert Arana MD GFR AA >60 Normal [facility] Comment on above: Result Comment: Afri can Bhutanese GFR Calc Medical judgement is necessary to interpret GFR. The calculated GFR may not accurately reflect renal status in patients >70 years, women, acutely ill hospitalized patients and patients with acute renal failure or known renal disease. The MDRD GFR formula is valid only for adults greater than 18 years of age. Note: Creatinine clearance (not GFR) should be used for drug dosing. Performed By: #### C [id number] #### [facility] [address] [place], [place] [address] [employer]: Albert Arana MD Glomerular Filtration Rate >60 Normal [facility] Comment on above: Result Comment: Non- GFR Calc Medical judgement is necessary to interpret GFR. The calculated GFR may not accurately reflect renal status in patients >70 years, women, acutely ill hospitalized patients and patients with acute renal failure or known renal disease. The MDRD GFR formula is valid only for adults greater than 18 years of age. Note: Creatinine clearance (not GFR) should be used for drug dosing. Performed By: #### C [id number] #### [facility] [address] [place], [place] [address] [employer]: Albert Arana MD Glucose [Mass/Vol] 130 mg/dL High 74-106 [facility] Comment on above: Performed By: #### C [id number] #### [facility] [address] [place], [place] [address] [employer]: Albert Arana MD Osmolality [Osmolality] 279 mosm/kg Normal 275-295 [facility] Comment on above: Performed By: #### C [id number] #### [facility] [address] [place], [place] [address] [employer]: Albert Arana MD Potassium [Moles/Vol] 3.3 mmol/L Low 3.5-5.1 [facility] Comment on above: Performed By: #### C [id number] #### [facility] [address] [place], [place] [address] [employer]: Albert Arana MD Sodium [Moles/Vol] 140 mmol/L Normal 135-145 [facility] Comment on above: Performed By: #### C [id number] #### [facility] [address] [place], [place] [address] [employer]: Albert Arana MD Urea nitrogen [Mass/Vol] 7 mg/dL Low 9-23 [facility] Comment on above: Result Comment: - Ve nipuncture should occur prior to N-Acetyl Cysteine (NAC) or Metamizole (Sulpyrine) administration due to the potential for falsely depressed results. - Blood samples from some patients with monoclonal gammopathies may produce falsely elevated results Performed By: #### C [id number] #### [facility] [address] [place] [address] [employer]: Albert Arana MD Urea nitrogen/Creatinine [Mass ratio] 14.0 mg/mg Normal [facility] Comment on above: Performed By: #### C [id number] #### [facility] [address] [place] [address] [employer]: Albert Arana MD Basic Admission Informationo n 09-04-2024 Basic Admission Information Basic Admission Information Entered On: 09/04/2024 0:10 EST Performed On: 09/04/2024 0:10 EST by Nicol Woo Admission Height/Weight Height/Length Measured : 167.64 cm(Converted to: 5.50 ft, 66.00 in) Height/Length Dosing : 168 cm(Converted to: 5.51 ft, 66.14 in) Weight Measured : 129.6 kg(Converted to: 285 lb 12 oz, 285.719 lb) Weight Dosing : 130.6 kg(Converted to: 4,606.780 oz, 287.924 lb) BSA Measured : 2.46 BSA Dosing : 2.47 Body Mass Index Measured : 46.12 kg/m2 Body Mass Index Dosing : 46 Weight Measured Type of Scale : Bed Scale (digital) Last Documented Height/Length : Height/Length Dosin cm 09/03/24 19:36:00 Height/Length Estimated: No results available. Height/Length Measured: No results available. Last Documented Weight and Type of Scale Used : Weight Measured Type of Scale: Bed Scale (digital) 09/03/24 19:36:00 Weight Dosin.6 kg 09/03/24 19:36:00 Weight Measured: No results available. 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 Monetary Items : Wallet Personal Devices : Glasses Nicol Woo - 09/04/2024 0:10 EST Room Orientation/Facility Policy Reviewed : Yes Room Orientation/Policy Reviewed With : Patient Patient Safety : Bed / Chair Alarm, Bed in low position, Call device within reach, Fall client solutions specialist ID Band, Falling [place], ID band check, Mobility support items readily available, Night light, Non-Slip footwear, Personal items within reach, Sensory aids within reach, Upper/Half-length side-rails up, Traffic path in room free of clutter, Wheels locked Demonstrates Ability to Use Call Light Successfully : Yes Nicol Woo - 09/04/2024 0:10 EST Normal [facility] Comment on above: Order Comment: Order entered secondary to admission CBCNDon 09-04-2024 DxH Actions See Notes Abnormal [facility] Comment on above: Result Comment: Scan for RBC Morphology SNV Performed By: #### C [id number] #### [facility] [address] [place] [address] [employer]: Albert Arana MD Erythrocyte distribution width (RBC) [Ratio] 22.3 % High 11.5-14.5 [facility] Comment on above: Performed By: #### C [id number] #### [facility] [address] [place] [address] [employer]: Albert Arana MD Hematocrit (Bld) [Volume fraction] 25.9 % Low 36.0-46.0 [facility] Comment on above: Performed By: #### C [id number] #### [facility] [address] [place] [address] [employer]: Albert Arana MD Hemoglobin (Bld) [Mass/Vol] 7.7 g/dL Low 12.0-16.0 [facility] Comment on above: Performed By: #### C [id number] #### [facility] [address] [place] [address] [employer]: Albert Arana MD Instr WBC ND 4.3 Normal [facility] Comment on above: Performed By: #### C [id number] #### [facility] [address] [place] [address] [employer]: Albert Arana MD MCH (RBC) [Entitic mass] 22.3 pg Low 27.0-34.0 [facility] Comment on above: Result Comment: JOSEMANULE AGUILERA Performed By: #### C [id number] #### [facility] [address] [place] [address]122 [employer]: Albert Arana MD MCHC (RBC) [Mass/Vol] 29.8 g/dL Low 32.0-37.0 [facility] Comment on above: Performed By: #### C [id number] #### [facility] [address] [place] [address] [employer]: Albert Arana MD MCV (RBC) [Entitic vol] 75.0 fL Low 80.0-100.0 S [facility] Comment on above: Performed By: #### C [id number] #### [facility] [address] [place], [place] [address] [employer]: Albert Arana MD Platelet 174 x10 Normal 150-450 [facility] Comment on above: Performed By: #### C [id number] #### [facility] [address] [place], [place] [address] [employer]: Albert Arana MD Platelet mean volume (Bld) [Entitic vol] 8.6 fL Normal 7.4-10.4 [facility] Comment on above: Performed By: #### C [id number] #### [facility] [address] [place] [address]93 [employer]: Albert Arana MD RBC 3.45 x10 Low 4.20-5.40 [facility] Comment on above: Result Comment: Note : RBC morphology is normal unless otherwise stated. Evaluation performed only if differential is requested. Performed By: #### C [id number] #### [facility] [address] [place] [address] [employer]: Albert Arana MD WBC 4.3 x10 Low 4.5-11.0 [facility] Comment on above: Performed By: #### C [id number] #### [facility] [address] [place], [place] [address] [employer]: Albert Arana MD Critical Test Results-Texton 09-04-2024 Critical Test Results-Text Critical Test Results Entered On: 09/04/2024 2:02 EST Performed On: 09/04/2024 2:01 EST by Byron Franklin RN Critical Test Results Date and Time of Contact : 09/04/2024 02:01 EST Critical Results Department : Lab results Critical Test Results : hemoglobin 6.8 Critical Results Read Back : Yes Critical Results Physician Notified : No Reason Physician Not Notified : Protocol in use/Physician order Additional Information : this is the h/h check after 1st unit prbc, 2 units are ordered. Byron Franklin RN - 09/04/2024 2:01 EST Normal [facility] ED Physician Reporton 2023 ED Physician Report BRADLEY MATOS :1965 Registration Date:09/03/2024 Basic Information Time Seen: JACINTO BARRERA MD / 09/03/2024 19:09 Arrival Mode: Ambulance [] History Source: Patient _ _ [] History limitation: None [] Chief complaint: Low hemoglobin History of Present Illness This is a 59 y/o female with a h/o stroke who presents to the ED via EMS for low hemoglobin today. Patient was told at her facility that she needed to have a transfusion done at the ED, patient complained that her hemoglobin was 5.5 at her blood draw today and she doesn't know why her hemoglobin is so low, patient denies any history of low blood levels, denies bloody stools or rectally bleeding, denies SOB, is on Eliquis. Patient voices no other complaints. Review of Systems Constitutional: No weight loss, night sweats, fatigue, fevers or chills Psychiatric: no change in mood, no change in sleep patterns. no auditory or visual hallucinations Eye: No erythema, discharge or drainage. no change in vision ENT: no change in hearing, ear pain, discharge or drainage. No sore throat, mouth sores/lesions. no nasal congestion. Cardiac: No chest pain, palpitations, leg swelling Pulmonary: No shortness of breath, cough, congestion GI: No abdominal pain, nausea, vomiting, diarrhea or constipation. No rectal bleeding or bloody stools. : No dysuria, hematuria, increased urinary frequency. Musculoskeletal: No arthralgias, myalgias, swelling, injuries, color change or deformities Skin: No rashes or wounds. Neurologic: No Lightheadedness, dizziness, weakness, numbness or tingling. No headaches. Physical Exam Vitals & Measurements Initial: T: 36.8 ?C (Oral) HR: 100 (Peripheral) BP: 130/ 53 RR: 16 SpO2: 95% O2 Therapy: Room air WT: 130.6 kg (Dosing) General: Chronically ill in apperance Mental Status: Awake, alert and oriented Psychiatric: normal mood, normal affect Head: Normocephalic, atraumatic Eyes: Pupils equal and reactive to light bilaterally. EOMI with FROM. conjunctiva with no injection. Sclera clear. HENT: Ears with normal external architecture. No obvious facial deformities Oral: Mucus membranes moist, oropharynx is clear. Neck: Supple. Chest: No deformities, no use of accessory muscles. Cardiac: Regular rate and rhythm, no murmurs, rubs or gallops Pulmonary: Lungs clear to auscultation bilaterally. no wheezes, rales, rhonchi or increased work of breathing noted. Abdomen: Soft, nontender, nondistended Back: No deformities noted. No CVAT Musculoskeletal: No obvious deformity. No peripheral edema. Radial pulses 2+ and intact bilaterally. Skin: Warm and dry Neurologic: Cranial nerves II-XII grossly intact. Strength and sensation equal upper and lower extremities bilaterally. Medical Decision Making Differential Diagnosis: Anemia, GI bleed, anemia of chronic disease Clinical Course: Patient is a 59-year-old female who presents with concern for low blood count. Patient on presentation with vital signs within acceptable limits. She is nontoxic. Chronically ill. No signs of any acute acute distress. On laboratory evaluation, she is found to have a hemoglobin of 6. Transfusion ordered. Patient will be admitted for further care. Patient is not on any blood thinners. Will admit for observation and further management. Disposition: Observation Reexamination/Reevaluat ion Systolic Blood Pressure: 130 mmHg High Diastolic Blood Pressure: 53 mmHg Low Temperature Oral: 36.8 degC Respiratory Rate: 16 br/min SpO2: 95 % Oxygen Therapy: Room air Peripheral Pulse Rate: 100 bpm Weight Dosin.6 kg Discharge/Plan *Discharge Disposition Level of Care Order - Ordered -- 09/03/2024 20:38:00 EST, Observation Outpatient with Observation Services, DEISY DILL, [facility] Assessment This Visit Diagnosis Anemia D64.9 Orders: Sodium Chloride 0.9%(NS) 250 mL(0.9%NaCl (Normal Saline) 250 mL), 250 mL, IV ABO Recheck, STAT, 09/03/2024 20:32:00 EST ABORH, STAT, 09/03/2024 19:26:00 EST ABSC, STAT, 09/03/2024 19:26:00 EST APTT, STAT, 09/03/2024 19:26:00 EST CBCWD(CBC WITH DIFF), STAT, 09/03/2024 19:26:00 EST COMPMETA(COMPREHENSIVE METABOLIC PANEL), STAT, 09/03/2024 19:26:00 EST IS XM, STAT, 09/03/2024 19:26:00 EST, 2 Units Level of Care Order, 09/03/2024 20:38:00 EST, Observation Outpatient with Observation Services, DEISY DILL, [facility] Nursing ONE TIME Task(Give Patient Education Titles:), Give Patient Education Titles:, 09/03/2024 20:37:00 EST, Blood Transfusion Information [facility] (Custom) and Post Transfusion Discharge Instructions [facility] (Custom), 09/03/2024 20:37:00 EST, 09/03/2024 20:37:00 EST [facility] ONE TIME Task(Order H&H), Order H&H, 09/03/2024 20:37:00 EST, If Physician order is for multi-unit Leuko Reduced PRBC transfusion, 60 mins after first unit completed, 09/03/2024 20:37:00 EST, 09/03/2024 20:37:00 EST [facility] ONE TIME Task(Confirm Type and Cros (more content not included)... Normal [facility] FERRITINon 09-04-2024 Ferritin [Mass/Vol] 8 ng/mL Low 10-291 [facility] Comment on above: Result Comment: Seru m ferritin values are elevated in the presence of the following conditions and do not reflect actual body iron stores: - Inflammation - Significant tissue destruction - Liver disease - Malignancies such as acute leukemia and Hodgkin?s disease - Therapy with iron supplements Performed By: #### 1 [id number] #### [facility] [address] [place] [address] [employer]: Albert Arana MD AND [facility] 09-04-2024 DxH Actions See Notes Abnormal [facility] Comment on above: Result Comment: Scan for RBC Morphology SNV Performed By: #### 1 68078 ####[facility] [address] [place] [address] Medical Director: Albert Arana MD Hematocrit (Bld) [Volume fraction] 23.8 % Low 36.0-46.0 [facility] Comment on above: Performed By: #### 1 09687 ####[facility] [address] [place] [address] Medical Director: Albert Arana MD Hemoglobin (Bld) [Mass/Vol] 7.2 g/dL Low 12.0-16.0 [facility] Comment on above: Performed By: #### 1 89125 ####[facility] [address] [place] [address] Medical Director: Albert Arana MD DxH Actions See Notes Abnormal [facility] Comment on above: Result Comment: Scan for RBC Morphology SNV Performed By: #### 1 94149 #### [facility] [address] [place] [address] [employer]: Albert Arana MD Hematocrit (Bld) [Volume fraction] 25.6 % Low 36.0-46.0 [facility] Comment on above: Performed By: #### 1 01500 #### [facility] [address] [place] [address] [employer]: Albert Arana MD Hemoglobin (Bld) [Mass/Vol] 7.6 g/dL Low 12.0-16.0 [facility] Comment on above: Performed By: #### 1 02625 #### [facility] [address] [place], [place] [address] [employer]: Albert Arana MD Dx Actions See Notes Abnormal [facility] Comment on above: Result Comment: Auto Rerun and Call Criticals Scan for RBC Morphology SNV Performed By: #### 1 72813 #### [facility] [address] [place] [address] [employer]: Albert Arana MD Hematocrit (Bld) [Volume fraction] 22.7 % Low 36.0-46.0 [facility] Comment on above: Performed By: #### 1 21340 #### [facility] [address] [place] [address] [employer]: Albert Arana MD Hemoglobin (Bld) [Mass/Vol] 6.8 g/dL Critically abnormal 12.0-16.0 [facility] Comment on above: Result Comment: Resu lts rechecked and called to JUAN MIGUEL VALERO, 09/04/2024 01:58:18 EST..tw Performed By: #### 1 96689 #### [facility] [address] [place] [address] [employer]: Albert Arana MD IRON GROUPon 09-04-2024 Iron [Mass/Vol] 14 ug/dL Low 50-170 [facility] Comment on above: Result Comment: Resu lts may be inaccurate if performed within 14 days of IV iron dextran administration. Performed By: #### 1 55510 #### [facility] [address] [place], [place] [address] [employer]: Albert Arana MD Saturation 4.9 % Low 20.0-50.0 [facility] Comment on above: Performed By: #### 1 50128 #### [facility] [address] [place], [place] [address] [employer]: Albert Aarna MD TIBC 286 ug/ml Normal 250-425 [facility] Comment on above: Result Comment: Resu lts may be inaccurate if performed within 14 days of IV iron dextran administration. Performed By: #### 1 35976 #### [facility] [address] [place] [address] [employer]: Albert Arana MD Nursing Clinical Noteon 08-09 Nursing Clinical Note 2229- admission or ders from dr ward. states he will take care of home meds in am. 0032- prbc transfusion complete. vss. no s/s of transfusion reaction. iv site unremarkable. h/h entered for 013 0200- hemoglobin 6.8 after 1st unit prbc. will transfuse 2nd unit shortly 0228-2nd unit prbc started at this time. 0243- vss tolerating blood well. iv site unremarkable. no s/s of reaction 0504- 2nd unit prbc complete. pt tolerated well. vss. Normal [facility] Pharmacy Clinical Interventi ons-Texton 09-04-2024 Pharmacy Clinical Interventions-Text Pharmacy Clinical Interventions Entered On: 09/04/2024 10:27 EST Performed On: 09/04/2024 10:26 EST by Adelaida Hogan RPh Interventions Intervention Type Pharmacy : Medication history Associated Order(s) Pharmacy : home medications Pharmacy Order Initiated By : Pharmacist Clinical Importance Pharmacy : Potentially major Prescriber Response Pharmacy : Accepted Patient Clinical Outcome Pharmacy : Avoided potential risk Pharmacist Intervention Time : 30 Adelaida Hogan RPh - 09/04/2024 10:26 EST Med History Med History Grid Location : 1DOU Medications reviewed with : [facility] order summary Adelaida Hogan RPh - 09/04/2024 10:26 EST Normal [facility] Social Work/Care Mgmt Assess ment-Texton 09-04-2024 Social Work/Care Mgmt Assessment-Text Social Work/Case Management Assessment Entered On: 09/04/2024 15:59 EST Performed On: 09/04/2024 15:52 EST by Stacy Rangel RN, CM/ROMANA Assessment Reason for Referral : Discharge Planning Advanced Directive : Pt has declined the Advance Directive packet Social Determinants of Health : None Identified Stacy Rangel RN - 09/04/2024 15:52 EST Progress Note Ensure your note includes the following: : Progress Note : Patient admitted 09/03 for anemia. hgb 6. pt recievd 2 units pbrc. GI on consult and PT/OT ordered. history of CVA. CM met with patient in room. patient stated that she is from [facility] where she has been for over a year. patient stated that normally she is a jose lift there to get into a wheelchair. no lw or poa and denies sdoh needs. she stated that her daughter is her primary support person and lives and works nearby the facility. Patient expressed that she would like to eventually switch ltc facilities, because she is unhappy with the care at [facility] but she does not want to rome into a place. Patient is willing to go back to [facility] until she finds the facility that she wants and her daughter has time to do a tour and research. CM provided patient with a list of facilities for reference. CM reached out to [facility] via [employer], able to accept back. they may need auth, but unsure until Friday and will let CM know. A. Discharge Plan: return to [facility] - may need auth to return. B. DME required at discharge: no C. Who the discharge plan has been discussed with: patient/RN D. Transportation needed at discharge: yes E. Barriers to discharge: medical clearance F. Handoff to whom:N/A Discharge Disposition : ECF-Extended Care Facility Impression needs have been identified / Documentation completed: : Social Work/Care Management Assessment Completed Claire CAIN, Stacy - 09/04/2024 15:52 EST Normal [facility] ABO Recheckon 09-03-2024 a cells 0 [facility] Comment on above: Performed By: #### 1 22336 #### [facility] [address] [place] [address] [employer]: Albert Arana MD ABO Interp Negative [facility] Comment on above: Performed By: #### 1 12547 #### [facility] [address] [place] [address] [employer]: Albert Arana MD Anti-A 4+ Normal [facility] Comment on above: Performed By: #### 1 19794 #### [facility] [address] [place] [address] [employer]: Albert Arana MD Anti-B 0 [facility] Comment on above: Performed By: #### 1 49612 #### [facility] [address] [place] [address] [employer]: Albert Arana MD Anti-D 0 [facility] Comment on above: Performed By: #### 1 47789 #### [facility] [address] [place] [address] [employer]: Albert Arana MD b cells 4+ [facility] Comment on above: Performed By: #### 1 90631 #### [facility] [address] [place] [address] [employer]: Albert Arana MD ABORHon 09-03-2024 ABORH Interpretation Negative [facility] Comment on above: Performed By: #### C [id number] #### [facility] [address] [place] [address] [employer]: Albert Arana MD Patient History Check No Previous Hx Normal [facility] Comment on above: Result Comment: 08/09 21:00 [id number] ABO Recheck Ordered Performed By: #### C [id number] #### [facility] [address] [place] [address] [employer]: Albert Arana MD VS 0.8% a cells 0 Normal [facility] Comment on above: Performed By: #### C [id number] #### [facility] [address] [place] [address] [employer]: Albert Arana MD VS 0.8% b cells 3+ Normal [facility] Comment on above: Performed By: #### C [id number] #### [facility] [address] [place] [address] [employer]: Albert Arana MD VS Anti-A Unit 4+ Normal [facility] Comment on above: Performed By: #### C [id number] #### [facility] [address] [place] [address] [employer]: Albert Arana MD VS Anti-B Unit 0 Normal [facility] Comment on above: Performed By: #### C [id number] #### [facility] [address] [place] [address] [employer]: Albert Arana MD VS Anti-D Unit 0 Normal [facility] Comment on above: Performed By: #### C [id number] #### [facility] [address] [place] [address] [employer]: Albert Arana MD ABSCon 09-03-2024 ABSC Final Interp Negative Normal [facility] Comment on above: Performed By: #### C [id number] #### [facility] [address] [place] [address] [employer]: Albert Arana MD Pt Hx check done? Yes Normal [facility] Comment on above: Performed By: #### C [id number] #### [facility] [address] [place] [address] [employer]: Albert Arana MD VS SCI Gel 0 Normal [facility] Comment on above: Performed By: #### C [id number] #### [facility] [address] [place] [address] [employer]: Albert Arana MD VS SCII Gel 0 [facility] Comment on above: Performed By: #### C [id number] #### [facility] [address] [place] [address] [employer]: Albert Arana MD APTTon 09-03-2024 aPTT Coag (Bld) [Time] 21.4 s Low 27.0-38.0 So [facility] Comment on above: Result Comment: APTT Interpretation: This test has not been validated to monitor heparin therapy. APTT test is used as an initial test for suspected bleeding disorder. Anti-Xa UFH test is used to monitor heparin therapy. Performed By: #### 1 62489, 109303, 523907, 8270027, 289086, 5417747 ####[facility] [address] [place], [place] [address] Medical Director: Albert Arana MD AUTO DIFFon 09-03-2024 Baso Count 0.18 x1000 Normal 0.00-0.20 [facility] Comment on above: Performed By: #### 1 08167, 303604, 925140, 2274675, 354540, 5072864 ####[facility] [address] [place], [place] [address] Medical Director: Albert Arana MD Basos % 4.2 % Normal [facility] Comment on above: Performed By: #### 1 24624, 475774, 446935, 1859070, 014230, 5820721 ####[facility] [address] [place] [address] Medical Director: Albert Arana MD Eos Count 0.05 x1000 Normal 0.00-0.50 [facility] Comment on above: Performed By: #### 1 82840, 083238, 221202, 6449709, 872580, 4406439 ####[facility] [address] [place] [address] Medical Director: Albert Arana MD Eosinophils/100 WBC (Bld) 1.2 % Normal [facility] Comment on above: Performed By: #### 1 33370, 002351, 230834, 4965769, 825541, 3131239 ####[facility] [address] [place] [address] Medical Director: Albert Arana MD Lymph Count 0.80 x1000 Low 1.20-4.80 [facility] Comment on above: Performed By: #### 1 90338, 279389, 643291, 1236037, 395234, 6157767 ####[facility] [address] [place] [address] Medical Director: Albert Arana MD Lymphocytes/100 WBC (Bld) 18.1 % Normal [facility] Comment on above: Performed By: #### 1 95638, 113489, 937445, 7869448, 201920, 3136679 ####[facility] [address] [place] [address] Medical Director: Albert Arana MD [place] Count 0.38 x1000 Normal 0.10-1.00 [facility] Comment on above: Performed By: #### 1 92215, 760068, 359192, 0796853, 557966, 7620768 ####[facility] [address] [place] [address] Medical Director: Albert Arana MD Monocytes/100 WBC (Bld) 8.7 % Normal S [facility] Comment on above: Performed By: #### 1 27271, 155146, 022901, 8710624, 735922, 5944086 ####[facility] [address] [place] [address] Medical Director: Albert Arana MD Neutrophil Count (ANC) 3.00 x1000 Normal 1.40-8.80 So [facility] Comment on above: Performed By: #### 1 12749, 507347, 461413, 7854814, 113723, 0153671 ####[facility] [address] [place] [address] Medical Director: Albert Arana MD Neutrophils/100 WBC (Bld) 67.8 % Normal [facility] Comment on above: Performed By: #### 1 89448, 789918, 299484, 8626514, 645662, 4636293 ####[facility] [address] [place], [place] [id number]) [phone] Director: Albert Arana MD Red Blood Cell Morphology See Notes Abnormal [facility] Comment on above: Result Comment: Micr ocytosis 2+ Hypochromia 3+ Anisocytosis 3+ Poikilocytosis 1+ Polychromasia 1+ Ovalocytes 1+ Target Cells 1+ Basophilic Stippling 1+ Performed By: #### 1 07421, 923241, 651025, 5893477, 921634, 9441285 ####[facility] [address] [place], [place] [id number]) [phone] Director: Albert Arana MD Scan Differential Diff Scd Normal [facility] Comment on above: Result Comment: Slid e reviewed by technologist. Performed By: #### 1 43273, 493280, 080525, 0195569, 584869, 0039972 ####[facility] [address] [place], [place] [id number]) [phone] Director: Albert Arana MD COMPMETAon 09-03-2024 Albumin [Mass/Vol] 2.9 g/dL Low 3.4-5.0 [facility] Comment on above: Performed By: #### 1 11100, 158027, 713735, 5126742, 997674, 6546460 ####[facility] [address] [place] [address] Medical Director: Albert Arana MD Albumin/Globulin [Mass ratio] 0.7 {ratio} Normal [facility] Comment on above: Performed By: #### 1 63093, 522997, 068679, 1004677, 783257, 8780837 ####[facility] [address] [place] [address] Medical Director: Albert Arana MD Alk Phos 80 unit/L Normal 45-117 [facility] Comment on above: Performed By: #### 1 12116, 735839, 479284, 1909159, 400603, 4229408 ####[facility] [address] [place] [address] Medical Director: Albert Arana MD Bilirubin [Mass/Vol] 1.60 mg/dL High 0.30-1.20 [facility] Comment on above: Result Comment: Use of this assay is not recommended for patients undergoing treatment with eltrombopag due to the potential for falsely elevated results. Performed By: #### 1 36752, 889939, 780037, 9405554, 569819, 3560637 ####[facility] [address] [place], [place] [id number]) [phone] Director: Albert Arana MD Calcium [Mass/Vol] 8.5 mg/dL Low 8.7-10.4 [facility] Comment on above: Performed By: #### 1 50163, 419057, 950743, 8095430, 203032, 7929753 ####[facility] [address] [place] [address] Medical Director: Albert Arana MD Chloride [Moles/Vol] 105 mmol/L Normal 98-107 [facility] Comment on above: Performed By: #### 1 18043, 103577, 056647, 9613990, 735182, 1300810 ####[facility] [address] [place] [address] Medical Director: Albert Arana MD CO2 [Moles/Vol] 27.0 mmol/L Normal 20.0-31.0 [facility] Comment on above: Performed By: #### 1 33182, 939104, 044129, 9984270, 775134, 5691225 ####[facility] [address]wc[address] [place], [place] [id number]) [phone] Director: Albert Arana MD Creatinine [Mass/Vol] 0.6 mg/dL Normal 0.5-0.8 [facility] Comment on above: Performed By: #### 1 45818, 769055, 674107, 9189356, 880083, 9930244 ####[facility] [address] [place], [place] [id number]) [phone] Director: Albert Arana MD GFR AA >60 Normal [facility] Comment on above: Result Comment: Afri can Bhutanese GFR Calc Medical judgement is necessary to interpret GFR. The calculated GFR may not accurately reflect renal status in patients >70 years, women, acutely ill hospitalized patients and patients with acute renal failure or known renal disease. The MDRD GFR formula is valid only for adults greater than 18 years of age. Note: Creatinine clearance (not GFR) should be used for drug dosing. Performed By: #### 1 75281, 919209, 867221, 7907030, 892656, 1764067 ####[facility] [address]fr[address] [place], [place] [id number]) [phone] Director: Albert Arana MD Globulin (S) [Mass/Vol] 4.0 g/dL Normal S [facility] Comment on above: Performed By: #### 1 10981, 132488, 941388, 8386948, 748359, 4020330 ####[facility] [address] [place] [address] Medical Director: Albert Arana MD Glomerular Filtration Rate >60 Normal [facility] Comment on above: Result Comment: Non- GFR Calc Medical judgement is necessary to interpret GFR. The calculated GFR may not accurately reflect renal status in patients >70 years, women, acutely ill hospitalized patients and patients with acute renal failure or known renal disease. The MDRD GFR formula is valid only for adults greater than 18 years of age. Note: Creatinine clearance (not GFR) should be used for drug dosing. Performed By: #### 1 33138, 398037, 158777, 1891528, 762997, 5550553 ####[facility] [address] [place] [address] Medical Director: Albert Arana MD Glucose [Mass/Vol] 179 mg/dL High 74-106 [facility] Comment on above: Performed By: #### 1 70195, 025037, 821590, 7637065, 730717, 5289398 ####[facility] [address] [place] [address] Medical Director: Albert Arana MD GOT 27 unit/L Normal 15-37 [facility] Comment on above: Performed By: #### 1 15501, 840519, 852931, 3389001, 950097, 6085578 ####[facility] [address] [place] [address] Medical Director: Albert Arana MD GPT 9 unit/L Low 10-49 [facility] Comment on above: Performed By: #### 1 34721, 091868, 987519, 8736261, 939960, 1808073 ####[facility] [address] [place] [address] Medical Director: Albert Arana MD Osmolality [Osmolality] 282 mosm/kg Normal 275-295 [facility] Comment on above: Performed By: #### 1 34864, 392660, 100948, 1627196, 256407, 6388896 ####[facility] [address] [place] [address] Medical Director: Albert Arana MD Potassium [Moles/Vol] 3.5 mmol/L Normal 3.5-5.1 [facility] Comment on above: Result Comment: Spec imen slightly hemolyzed. Results may be affected. Performed By: #### 1 61994, 847562, 681613, 6065410, 393896, 6453939 ####[facility] [address] [place] [address] Medical Director: Albert Arana MD Protein [Mass/Vol] 6.9 g/dL Normal 5.7-8.2 [facility] Comment on above: Result Comment: Tota l Protein results may be increased in patients receiving dextran as a blood volume mental health professional Performed By: #### 1 90422, 414622, 227887, 7989069, 231060, 5451085 ####[facility] [address] [place] [address] Medical Director: Albert Arana MD Sodium [Moles/Vol] 140 mmol/L Normal 135-145 [facility] Comment on above: Performed By: #### 1 26958, 738832, 397243, 4041698, 922878, 8888471 ####[facility] [address] [place] [address] Medical Director: Albert Arana MD Urea nitrogen [Mass/Vol] 7 mg/dL Low 9-23 [facility] Comment on above: Result Comment: - Ve nipuncture should occur prior to N-Acetyl Cysteine (NAC) or Metamizole (Sulpyrine) administration due to the potential for falsely depressed results. - Blood samples from some patients with monoclonal gammopathies may produce falsely elevated results Performed By: #### 1 94942, 118066, 756686, 6597769, 554051, 5518376 ####[facility] [address]vf[address] [place] [address] [facility] Albert Arana MD Urea nitrogen/Creatinine [Mass ratio] 11.7 mg/mg Normal [facility] Comment on above: Performed By: #### 1 29340, 797698, 926956, 1886968, 965036, 1949988 ####[facility] [address] [place] [address] [facility] Albert Arana MD Critical Test Results-Texton 09-03-2024 Critical Test Results-Text Critical Test Results Entered On: 09/03/2024 20:22 EST Performed On: 09/03/2024 20:21 EST by Hussain Wooten RN Critical Test Results Date and Time of Contact : 09/03/2024 20:21 EST Critical Results Department : Lab results Critical Test Results : HGB 6.0 HCT 21.3 Critical Results Read Back : Yes Critical Results Physician Notified : Yes Date/Time Physician Notified : 09/03/2024 20:22 EST Provider Informed : HOLLY DILL, Hussain Peter RN - 09/03/2024 20:21 EST Normal [facility] ED Data MUSIC ADAPTER - Texton 024 ED Data MUSIC ADAPTER - Text ED Data MUSIC ADAPTER Entered On: 09/03/2024 19:39 EST Performed On: 09/03/2024 19:38 EST by Hussain Wooten RN ED General Intake Information Information Given By : Patient [place] Coma : Document [place] Com[place] Scale Problem History : Document Problem History Procedure History : Document Procedure History Safety Screening : Document Safety Screening Referral Source : Nursing Facility Mode of Arrival * : Ambulance / PD ED KINDER1 Falls Risk : Document Falls Assessment Infection Screening : Document Infection Screening Depression Screening : Document Depression Screening Would you accept a blood transfusion if necessary? : Yes Social History : Document Social History Currently or : Not Applicable Hussain Wooten RN - 09/03/2024 19:38 EST Prearrival FCT EKG : None FCT Intubation : None FCT Life-alpesh : None FCT Meds : None Hussain Wooten RN - 09/03/2024 19:38 EST [place] Coma Scale Eye Opening : Spontaneously Best Verbal Response : Oriented Best Motor Response : Obeys simple commands [place] Coma Score (Ref) : 15 Hussain Wooten RN - 09/03/2024 19:38 EST Problem History (As Of: 09/03/2024 19:39:35 EST) Problems(Active) At risk for falls (SNOMED CT :803172165 ) Name of Problem: At risk for falls ; Recorder: SYSTEM; Confirmation: Confirmed ; Classification: Nursing ; Code: 191600295 ; Last Updated: 10/19/2013 18:03 EST ; Life Cycle Date: 08/13/2012 ; Life Cycle Status: Active ; Vocabulary: SNOMED CT ; Comments: 08/13/2012 22:37 - SYSTEM Problem added automatically by system based on documentation of a admission to the hospital. Knowledge deficit (SNOMED CT :5086805239 ) Name of Problem: Knowledge deficit ; Recorder: SYSTEM; Confirmation: Confirmed ; Classification: Nursing ; Code: 0610285962 ; Last Updated: 10/19/2013 18:03 EST ; Life Cycle Date: 08/13/2012 ; Life Cycle Status: Active ; Vocabulary: SNOMED CT ; Comments: 08/13/2012 18:37 - SYSTEM Problem added automatically by system based on learning needs addressed on emergency department admission. Diagnoses(Active) Abnormal diagnostic test Date: 09/03/2024 ; Diagnosis Type: Reason For Visit ; Confirmation: Confirmed ; Clinical Dx: Abnormal diagnostic test ; Classification: Medical ; Clinical Service: Non-Specified ; Code: PNED ; Probability: 0 ; Diagnosis Code: [id number] Procedure History ED Urinary Catheter Present on Admit to ED? : No Devices Present on Arrival To ED : None Hussain Wooten RN - 09/03/2024 19:38 EST - Procedure History (As Of: 09/03/2024 19:39:36 EST) Safety Screening Abuse/Violence Concerns? : Patient denies Does the patient have a medically restricted extremity? : No Hussain Wooten RN - 09/03/2024 19:38 EST KINDER1 Fall Risk Assessment *Presents to ED Because of Falls : No *Age > 70 : Yes *Altered Mental Status : No *Impaired Mobility : Yes *Nursing Judgment : Yes Falls Risk Assessment : High risk for falls Fall Interventions Initiated : Hourly rounding Hussain Wooten RN - 09/03/2024 19:38 EST Infection Screening Travel outside [place] within past 21 days : No Positive COVID test in the last 10 days? : No Exposure to and/or close contact with a person who has a laboratory-confirmed COVID test within the last 48 hours. : No Hussain Wooten RN - 09/03/2024 19:38 EST Depression Screening Patient able to verbalize? : Yes Feeling Down, Depressed, Hopeless : Not at all Little Interest - Pleasure in Activities : Not at all Initial Depression Screen Score : 0 Depression Screening Score 0 : No IP Pt being evaluated or treated for BH conditions : No Hussain Wooten RN - 09/03/2024 19:38 EST Social History Are you being seen for an alcohol related problem? : No Do you or one of your family members feel like you have a drinking problem? : No Hussain Wooten RN - 09/03/2024 19:38 EST Social History (As Of: 09/03/2024 19:39:36 EST) Alcohol: Denies Alcohol Use (Last Updated: 11/15/2012 18:44:47 EDT by Blanka Blair RN ) Tobacco: Never smoker (Last Updated: 11/15/2012 18:44:54 EDT by Blanka Blair RN) Substance Abuse: Denies Substance Abuse (Last Updated: 11/15/2012 18:44:48 EDT by Blanka Blair RN ) Normal [facility] ED Discharge Educationon ED Discharge Education Normal So [facility] ED Emergency Severity Index Adult-Texton 09-03-2024 ED Emergency Severity Index Adult-Text MELYSSA - Adult Entered On: 09/03/2024 19:36 EST Performed On: 09/03/2024 19:36 EST by Hussain Wooten RN DCP GENERIC CODE Visit Reason : LOW HGB Tracking Triage Date/Time : 09/03/2024 19:36 EST Tracking Reg Status : Requested Tracking Acuity : 3H-Urgent Tracking Group : [facility] Tracking Hussain Wooten RN - 09/03/2024 19:36 EST Normal [facility] ED Patient Summaryon 024 ED Patient Summary [facility] Emergency Department Discharge Instructions [address] [place] [address] (Patient Copy) Name: BRADLEY MATOS : 1965 Allergies: Nucynta; iodine; sulfa drugs; tetracycline; propofol; morphine; aspirin; Zantac; Skelaxin; Darvon Diagnosis: Anemia Visit Date: 09/03/2024 19:08:11 [facility]#: [id number] Current Date Time: 09/03/2024 22:36:09 Address: [facility] [address] Primary Care Provider: Name: EDMUNDO EVANS MD Phone: [phone] Emergency Department Care Providers: Primary Physician: DAVID WARD MD Thank you for choosing [facility] for your emergency care. You are very important to us. Our goal is to demonstrate our high quality medical care, and provide you with a very good patient experience. You may receive a survey about our service. Please take the time to complete the survey and return it so we can continue to enhance our service. Thank you again for allowing the [facility] Emergency Department to care for your medical needs. If you have questions about your care or follow up information please contact us at [phone]. Follow-Up Instructions BRADLEY MATOS has been given these follow-up instructions: Patient Education Materials BRADLEY MATOS has been given the following patient education materials: BEFORE YOU LEAVE Set up your [facility] [employer] account! [employer] is a secure, online health management tool that connects you to portions of your hospital-based electronic medical record, allowing you to see test results, manage appointments, access discharge care instructions and much more. You can access [employer] from a computer, tablet or smartphone. Enrollment/registration is required. If you do not have a [employer] account, please provide us with an email address before you leave so that we may set up an account for you. New to [employer]! You may now securely connect some of the health management apps you use (e.g., fitness trackers, dietary trackers, etc.) to your health record in [facility] [employer]. This new feature provides expanded access to your health and wellness data, which will help you and your care team make informed decisions about your health care. If you are interested in using a health management carola not currently connected to [employer], contact a Analytics Director at [phone] or [email or web address]. We will determine if the carola meets the technical requirements to connect to [facility] [employer] and assure the security of your private health information. Medication Information BRADLEY MATOS has been given the following medication information: Only Take The Medicines On This List. Keep This List and Bring It To Your Next Appointment. Medicines To Take At Home: Medicine Name (Generic Name) Amount to Take How to Take it How Often to Take it Additional Instructions Next Dose Due Percocet 5/325 (acetam 325mg/ oxycod 5mg) oral tablet (acetaminophen-oxycodon e) 1 tab(s) By Mouth DAILY Take as needed for pain Lomotil 2.5 mg-0.025 mg oral tablet (atropine-diphenoxylate ) 1 tab(s) By Mouth THREE TIMES A DAY Take as needed for loose stool betamethasone-clotrimaz ole 0.05%-1% topical cream (betamethasone-clotrima zole topical) 1 carola Topical DAILY TO AFFECTED AREAS Cipro 500 mg oral tablet * (ciprofloxacin) 500 mg By Mouth EVERY TWELVE HOURS SENT TO [facility] For 7 Day(s) Voltaren Topical 1% topical gel (diclofenac topical) 1 carola Topical DAILY Take as needed for pain Bentyl 20 mg oral tablet (dicyclomine) 20 mg By Mouth THREE TIMES A DAY Take as needed for See Note Line NEEDED. For 7 Day(s) Flagyl 500 mg oral tablet * (metronidazole) 500 mg By Mouth THREE TIMES A DAY WITH MEALS SENT TO [facility] For 7 Day(s) Please excuse this patient from work for the following dates:08/13/12-08/23/12 * (prescription non med) This patient may return to work without restrictions on the following date:08/24/12 promethazine 25 mg oral tablet (promethazine = phenergan) 25 mg By Mouth EVERY FOUR HOURS Take as needed for nausea/vomiting AcipHex 20 mg oral delayed release tablet (rabeprazole) 20 mg By Mouth THREE TIMES A DAY YES, PATIENT DOES REALLY TAKE 20MG TID PER M.D.'S INSTRUCTION. YES, PATIENT DOES REALLY TAKE 20MG TID. salsalate 500 mg oral tablet (salsalate = disalcid) 500 mg By Mouth DAILY Take as needed for pain Understanding your home medicine is important to keeping you healthy. If you are taking medications that are not on the preceding list, please call your doctor to see if you are to continue that medica (more content not included)... Normal [facility] ED Pre-Arrival Formon 2023 ED Pre-Arrival Form Pre-Arrival Summary Name: [place] Current Date: 09/03/2024 19:09:22 EST Gender: Date of : Age: Pre-Arrival Type: EMS ETA: 09/03/2024 19:37:00 EST Primary Care Physician: Presenting Problem: LOW HGB Pre-Arrival User: Kerry Waldron RN Referring Source: Location: 1 [facility] Emergency Department [address] [place] [address] Notes: Vital Signs: Doctor Call Back: DNR Status: Miscellaneous Issues: Normal [facility] ED Progress Noteon ED Progress Note PT PRESENTS TO ED WI TH COMPLAINTS OF LOW HEMOGLOBIN FROM NURSING FACILITY BY EMS. EKG OBTAUBED. VSS. PT IS AX3 GCS 15. PT DENIES ANY SYMPTOMS AT THIS TIME. BLOOD CONSENT OBTAINED. Normal [facility] ED Triage MUSIC ADAPTER - Texton 09-03 ED Triage MUSIC ADAPTER - Text ED Triage MUSIC ADAPTER Enter ed On: 09/03/2024 19:38 EST Performed On: 09/03/2024 19:36 EST by Hussain Wooten RN Triage Temperature Oral : 36.8 degC(Converted to: 98.2 degF) Systolic Blood Pressure : 130 mmHg (HI) Diastolic Blood Pressure : 53 mmHg (LOW) Heart Rate : 100 bpm Respiratory Rate : 16 br/min Oxygen Saturation : 95 % Oxygen Therapy : Room air ED Document Sepsis Screening : Document Sepsis Screening ED Document Reason for Visit : Document Reason for Visit ED Document Allergies : Document Allergies Scale Type : Bed Scale (digital) Weight Dosing : 130.6 kg(Converted to: 287 lb 15 oz) BMI Dosing Calculation : 46 Height/Length Dosing : 168 cm(Converted to: 5 ft 6 in) Pain Symptoms : No Hussain Wooten RN - 09/03/2024 19:36 EST (As Of: 09/03/2024 19:38:19 EST) Problems(Active) At risk for falls (SNOMED CT :305524509 ) Name of Problem: At risk for falls ; Recorder: SYSTEM; Confirmation: Confirmed ; Classification: Nursing ; Code: 285892210 ; Last Updated: 10/19/2013 18:03 EST ; Life Cycle Date: 08/13/2012 ; Life Cycle Status: Active ; Vocabulary: SNOMED CT ; Comments: 08/13/2012 22:37 - SYSTEM Problem added automatically by system based on documentation of a admission to the hospital. Knowledge deficit (SNOMED CT :5146905663 ) Name of Problem: Knowledge deficit ; Recorder: SYSTEM; Confirmation: Confirmed ; Classification: Nursing ; Code: 3701489357 ; Last Updated: 10/19/2013 18:03 EST ; Life Cycle Date: 08/13/2012 ; Life Cycle Status: Active ; Vocabulary: SNOMED CT ; Comments: 08/13/2012 18:37 - SYSTEM Problem added automatically by system based on learning needs addressed on emergency department admission. Diagnoses(Active) Abnormal diagnostic test Date: 09/03/2024 ; Diagnosis Type: Reason For Visit ; Confirmation: Confirmed ; Clinical Dx: Abnormal diagnostic test ; Classification: Medical ; Clinical Service: Non-Specified ; Code: PNED ; Probability: 0 ; Diagnosis Code: [id number] Reason for Visit (As Of: 09/03/2024 19:38:19 EST) Problems(Active) At risk for falls (SNOMED CT :908760900 ) Name of Problem: At risk for falls ; Recorder: SYSTEM; Confirmation: Confirmed ; Classification: Nursing ; Code: 759719587 ; Last Updated: 10/19/2013 18:03 EST ; Life Cycle Date: 08/13/2012 ; Life Cycle Status: Active ; Vocabulary: SNOMED CT ; Comments: 08/13/2012 22:37 - SYSTEM Problem added automatically by system based on documentation of a admission to the hospital. Knowledge deficit (SNOMED CT :8479605557 ) Name of Problem: Knowledge deficit ; Recorder: SYSTEM; Confirmation: Confirmed ; Classification: Nursing ; Code: 4451999267 ; Last Updated: 10/19/2013 18:03 EST ; Life Cycle Date: 08/13/2012 ; Life Cycle Status: Active ; Vocabulary: SNOMED CT ; Comments: 08/13/2012 18:37 - SYSTEM Problem added automatically by system based on learning needs addressed on emergency department admission. Diagnoses(Active) Abnormal diagnostic test Date: 09/03/2024 ; Diagnosis Type: Reason For Visit ; Confirmation: Confirmed ; Clinical Dx: Abnormal diagnostic test ; Classification: Medical ; Clinical Service: Non-Specified ; Code: PNED ; Probability: 0 ; Diagnosis Code: [id number] Allergies (As Of: 09/03/2024 19:38:20 EST) Allergies (Active) aspirin Estimated Onset Date: Unspecified ; Reactions: n/v ; Created By: Nic Keith RPh; Reaction Status: Active ; Category: Drug ; Substance: aspirin ; Type: Allergy ; Updated By: Nic Keith RPh; Reviewed Date: 09/03/2024 19:37 EST Darvon Estimated Onset Date: Unspecified ; Created By: Ramona Queen RN; Reaction Status: Active ; Category: Drug ; Substance: Darvon ; Type: Allergy ; Updated By: Ramona Queen RN; Reviewed Date: 09/03/2024 19:37 EST iodine Estimated Onset Date: Unspecified ; Reactions: vomiting ; Created By: Nic Keith RPh; Reaction Status: Active ; Category: Drug ; Substance: iodine ; Type: Allergy ; Updated By: Nic Keith RPh; Reviewed Date: 09/03/2024 19:37 EST morphine Estimated Onset Date: Unspecified ; Created By: Blanka Blair RN; Reaction Status: Active ; Category: Drug ; Substance: morphine ; Type: Allergy ; Updated By: Blanka Blair RN; Reviewed Date: 09/03/2024 19:37 EST Nucynta Estimated Onset Date: Unspecified ; Reactions: Swelling ; Created By: Blanka Blair RN; Reaction Status: Active ; Category: Drug ; Substance: Nucynta ; Type: Allergy ; Updated By: Blanka Blair RN; Reviewed Date: 09/03/2024 19:37 EST propofol Estimated Onset Date: Unspecified ; Created By: Ramona Queen RN; Reaction Status: Active ; Category: Drug ; Substance: propofol ; Type: Allergy ; Updated By: Ramona Queen RN; Reviewed Date: 09/03/2024 19:37 EST Skelaxin Estimated Onset Date: Unspecified ; Reactions: Itching ; Created By: Josie Herring RN; Reaction Status: Active ; Category: Drug ; Substance: Skelaxin ; Type: Allergy ; Updated By: Josie Herring RN; Reviewed Date: 09/03/2024 19:37 E (more content not included)... Normal [facility] HEMOon 09-03-2024 DIFF? No Normal [facility] Comment on above: Performed By: #### 1 45680, 859935, 885621, 6924712, 430257, 3623412 ####[facility] [address] [place], [place] [id number]) [phone] Director: Albert Arana MD HEM PATH REVIEW See Diff Review Interp Normal [facility] Comment on above: Performed By: #### 1 64991, 345665, 898546, 4776277, 292936, 1807174 ####[facility] [address] [place], [place] [address]) [phone] Director: Albert Arana MD Nucleated RBC 0 /100WBC Normal [facility] Comment on above: Performed By: #### 1 32801, 202097, 925988, 5434383, 364301, 7098361 ####[facility] [address] [place], [place] [address]) [phone] Director: Albert Arana MD DxH Actions See Notes Abnormal [facility] Comment on above: Result Comment: MDW for ED patients 18-89 only. Manual Rerun by Single tube mode.If MDW still invalid, result with template. Auto Rerun and Call Criticals Scan for RBC Morphology SNV Performed By: #### 1 42534, 007568, 519927, 5386924, 374498, 6047673 ####[facility] [address] [place] [address] Medical Director: Albert Arana MD Erythrocyte distribution width (RBC) [Ratio] 20.5 % High 11.5-14.5 [facility] Comment on above: Performed By: #### 1 23234, 118473, 640158, 4024625, 292594, 1393376 ####[facility] [address] [place], [place] [address]) [phone] Director: Albert Arana MD Hematocrit (Bld) [Volume fraction] 21.3 % Low 36.0-46.0 [facility] Comment on above: Performed By: #### 1 19535, 725497, 036965, 6119398, 303143, 8063502 ####[facility] [id number] [place], [place] [id number]) [phone] Director: Albert Arana MD Hemoglobin (Bld) [Mass/Vol] 6.0 g/dL Critically abnormal 12.0-16.0 [facility] Comment on above: Result Comment: Resu lts rechecked and called to OR IN ER 09/03/2024 20:22:25 EST, RBR. [place] Performed By: #### 1 96432, 256293, 013721, 0743952, 856793, 6689054 ####[facility] Zzuhtmii50178 [place], [place] [id number]) [phone] Director: Albert Arana MD Instr WBC 4.4 Normal [facility] Comment on above: Performed By: #### 1 66814, 166424, 447542, 7377365, 167519, 7678349 ####[facility] Jgusfpdg93056 [place], [place] [id number]) [phone] Director: Albert Arana MD MCH (RBC) [Entitic mass] 20.2 pg Low 27.0-34.0 [facility] Comment on above: Performed By: #### 1 03297, 338207, 535585, 4161971, 020250, 3691038 ####[facility] Cfxolpoe04880 [place] [address] Medical Director: Albert Arana MD MCHC (RBC) [Mass/Vol] 28.4 g/dL Low 32.0-37.0 [facility] Comment on above: Performed By: #### 1 15365, 525625, 122135, 4986505, 014923, 5367297 ####[facility] Nrkhyapt77533 [place], [place] [id number]) [phone] Director: Albert Arana MD MCV (RBC) [Entitic vol] 71.0 fL Low 80.0-100.0 [facility] Comment on above: Performed By: #### 1 16889, 978097, 369267, 6038131, 685996, 8869260 ####[facility] Nzjccvbe76131 [place] [address] Medical Director: Albert Arana MD MDW 19.76 Normal 13.98-20.00 [facility] Comment on above: Result Comment: MDW Interpretation: - For adults age 18-89 in ED, MDW >20.0 may be associated with a higher risk of Sepsis during the first 12 hours of hospital admission. - The predictive value of MDW for identifying Sepsis in patients with hematological abnormalities has not been established. - Interpret with caution when immature granulocytes, variant lymphs, or blast cells are noted on the differential. - Confirm patient age is within intended use population (18-89 years) for MDW. - For ED adults suspected of Sepsis, MDW less than or equal to 20.0 does not rule out Sepsis or the risk of Sepsis. Performed By: #### 1 66163, 800565, 264491, 9987358, 727457, 1175308 ####[facility] Iapukmry51254 [place], [place] [id number]) [phone] Director: Albert Arana MD Platelet 169 x10 Normal 150-450 [facility] Comment on above: Performed By: #### 1 74433, 992545, 067594, 8744909, 310767, 0591828 ####[facility] Kbbfzmed62477 [place] [address] Medical Director: Albert Arana MD Platelet mean volume (Bld) [Entitic vol] 8.7 fL Normal 7.4-10.4 [facility] Comment on above: Performed By: #### 1 36095, 085206, 112321, 8781371, 356535, 9276218 ####[facility] Tuuhptmq89031 [place], [place] [address]) [phone] Director: Albert Arana MD RBC 3.00 x10 Low 4.20-5.40 [facility] Comment on above: Result Comment: Note : RBC morphology is normal unless otherwise stated. Evaluation performed only if differential is requested. Performed By: #### 1 56092, 509412, 579068, 4235548, 583570, 7151749 ####[facility] Exkwzusn26852 [place], [place] [address] Medical Director: Albert Arana MD WBC 4.4 x10 Low 4.5-11.0 [facility] Comment on above: Performed By: #### 1 54344, 661189, 059234, 5592034, 018955, 5815175 ####[facility] Mslydfpx98121 [place] [address] [facility]: Albert Arana MD Optometric Aide Detailson 2023 Optometric Aide Details Optometric Aide Details Entered On: 09/03/2024 22:59 EST Performed On: 09/03/2024 22:59 EST by Byron Franklin RN Optometric Aide Details Transport Mode Order Detail EV : Bed Isolation Precautions RTF : Level of Care Order, 09/03/2024 20:38:00 EST, Observation Outpatient with Observation Services, DEISY DILL, [facility], Ordered Transfer Care of Patient to Attending, 09/03/2024 20:38:00 EST, Upon discharge from the ED, all continued medications and orders become the responsibility of the admitting/attending physician., Ordered Obtain Consent, 09/03/2024 20:37:00 EST, Consent/Refusal for Transfusion of Blood or Blood Products Form [id number], 09/03/2024 20:37:00 EST, Ordered Obtain Consent, 09/03/2024 19:26:00 EST, Obtain Blood Transfusion Consent, 09/03/2024 19:26:00 EST, Ordered Isolation Precaution Order Detail EV : NONE IV Order Detail - EV : Yes Oxygen Order Detail EV : No Order Detail EV : No Pacemaker Order Detail : 0 Optometric Aide Details Review Status : Initial Review Nurse Collects Blood Specimens : Byron Cordova RN - 09/03/2024 22:59 EST Normal [facility] Comment on above: Order Comment: Order entered secondary to admission PT INRon 09-03-2024 INR Coag (PPP) [Relative time] 1.2 {INR} Normal [facility] Comment on above: Result Comment: INR Reference Range: Normal reference range for INR on patients not on anticoagulant therapy: 0.9-1.1 General therapeutic range for patients on anticoagulant therapy: 2.0-3.5 Performed By: #### 1 94517, 814650, 358102, 2936928, 212834, 7262172 ####[facility] Nqmjaiyb93169 [place] [address] Medical Director: Albert Arana MD Protime Patient 13.1 seconds High 9.8-12.8 [facility] Comment on above: Performed By: #### 1 72568, 167667, 763222, 3057810, 564224, 9180116 ####[facility] Ignonwjp90872 [place], [place] [id number]) [phone] Director: Albert Arana MD RBC Transfusion Request Acti ve Bleedingon 09-03-2024 # Units 2 Normal [facility] Comment on above: Performed By: #### 1 16685 #### [facility] [address] [place] [address] [employer]: Albert Arana MD Status of Blood/Components Blood Available [facility] Comment on above: Result Comment: 08/09 21:17 [id number] Availability called to: OR in ER Performed By: #### 1 53513 #### [facility] [address] [place] [address] [employer]: Albert Arana MD Progress Noteon 11-06-2022 Progress Note Per chart review, patient currently resides in a SNF. Normal [facility] ED NOTEon 05-18-2022 ED NOTE HNO ID: [id number] Author: Cony Gomez RN Service: ? Author Type: Registered Nurse Type: ED Notes Filed: 05/18/2022 4:26 PM Note Text: Pt received written and verbal discharge instructions. Pt verbalizes understanding. All questions answered. Pt education on medications and dosages. Pt verbalized understanding. Instructed pt to follow up with PCP. No acute distress noted. Instructed pt to come back to Emergency Room if symptoms worsen. Pt verbalized understanding. All belongings with pt. [facility] ED NOTE HNO ID: [id number] Author: Cony Gomez RN Service: ? Author Type: Registered Nurse Type: ED Notes Filed: 05/18/2022 4:40 PM Note Text: Pt report called to SNF spoke with RN. [facility] ED NOTE HNO ID: [id number] Author: Tahmina Joseph RN Service: ? Author Type: Registered Nurse Type: ED Notes Filed: 05/18/2022 2:46 PM Note Text: Bed: ED-10 Expected date: Expected time: Means of arrival: Comments: LST 4: 57[facility] a red raised rash on elbow [facility] ED PROV NOTEon 05-18-2022 ED PROV NOTE HNO ID: [id number] Author: José Miguel Argueta MD Service: Emergency Medicine Author Type: Physician Type: ED Provider Notes Filed: 05/18/2022 9:59 PM Note Text: ED Provider Note Patient Name: Bradley Matos : 1965 SERVICE DATE: 05/18/22 History Patient presents with: Rash: Left inner elbow Is a 57-year-old female who comes in with complaints of a rash in her left arm. Denies any other symptoms. She states that she noticed it yesterday no IV or sticks to the arm. States that it is itching and burning she came in because she thought it was worse since yesterday. She has no systemic symptoms. No headache chest pain shortness of breath nausea vomiting no other rash on any other side of her body. Past history is hypertension fibromyalgia obesity PAST MEDICAL HISTORY Diagnosis Date - Anxiety - Essential hypertension 12/16/2018 - Fatigue chronic fatigue syndrome - Fibromyalgia - GI problem UC and prior ulcers - Medial meniscus tear 12/19/2014 - Morbid obesity (HCC) - Post traumatic stress disorder (PTSD) - PTSD (post-traumatic stress disorder) 03/20/2022 - Scabies - Sjogren's syndrome (HCC) PAST SURGICAL HISTORY Procedure Laterality Date - ARTHROSCOPY KNEE DIAGNOSTIC W/WO SYNOVIAL BX SPX Left 01/19/15 Arthroscopy, knee - SECTION HX - UNL LAPAR WEDGE RESECTION SIGM COLON 10/30/2016 [facility] Randall FAMILY HISTORY Problem Relation Age of Onset - None Brother - None Brother - Arthritis Mother - GI Mother - Hypertension Mother - Arthritis Brother - Cancer Brother - Emphysema Father - Heart Father - Stroke Father - Headache Brother - Heart Brother - Heart Brother - Psychiatry Brother - Seizures Brother Social History Tobacco Use - Smoking status: Never - Smokeless tobacco: Never Substance and Sexual Activity - Alcohol use: No - Drug use: No - Sexual activity: Never ALLERGIES Allergen Reactions - Permethrin Rash - Aspirin Other: See Comments GI Upset and Bleeding - Asa [Salicylates] GI Upset - Ciprofloxacin Itching - Darvon [Propoxyphen* Unknown - Dilaudid [Hydromorp* Other: See Comments bp crashes - Iodinated Contrast * GI Upset - Iodine Vomiting - Levofloxacin Rash - Morphine Intolerance - Nucynta [Tapentadol] Swelling Swelling in the esophagus - Propofol Shortness of Breath, Other: See Comments Blood pressure was low - Skelaxin [Metaxalon* Itching - Sulfa (Sulfonamide * GI Upset - Sulfa Dyne Unknown - Tetracycline Rash - Tramadol Other: See Comments Vomiting, disoriented, shaking - Zantac [Ranitidine * Vomiting - Prednisone Itching Review of Systems Constitutional: Negative for fever. HENT: Negative for trouble swallowing. Eyes: Negative for visual disturbance. Respiratory: Negative for shortness of breath. Cardiovascular: Negative for chest pain. Gastrointestinal: Negative for abdominal pain. Genitourinary: Negative for frequency. Musculoskeletal: Negative for arthralgias. Skin: Negative for rash. Rash left antecubital fossa by his itching and burning by history Neurological: Negative for seizures. Hematological: Negative for adenopathy. Psychiatric/Behavioral: Negative for suicidal ideas. All other systems reviewed and are negative. Physical Exam Vitals [05/18/22 1448] BP Pulse Temp Temp src Resp SpO2 Weight Height 137/60 86 36.7 ?C (98.1 ?F) Oral 18 (!) 94 % (!) 152 kg (335 lb) 1.676 m (5' 6") Physical Exam Vitals and nursing note reviewed. Constitutional: Appearance: Normal appearance. HENT: Head: Normocephalic and atraumatic. Right Ear: Tympanic membrane, ear canal and external ear normal. Left Ear: Tympanic membrane, ear canal and external ear normal. Nose: Nose normal. Mouth/Throat: Mouth: Mucous membranes are moist. Eyes: Extraocular Movements: Extraocular movements intact. Conjunctiva/sclera: Conjunctivae normal. Pupils: Pupils are equal, round, and reactive to light. Cardiovascular: Rate and Rhythm: Normal rate and regular rhythm. Pulses: Normal pulses. Heart sounds: Normal heart sounds. No murmur heard. No friction rub. No gallop. Pulmonary: Effort: Pulmonary effort is normal. No respiratory distress. Breath sounds: No wheezing, rhonchi or rales. Abdominal: General: Bowel sounds are normal. There is no distension. Palpations: Abdomen is soft. There is no mass. Tenderness: There is no abdominal tenderness. There is no right CVA tenderness, left CVA tenderness, guarding or rebound. Hernia: No hernia is present. Musculoskeletal: General: No tenderness, deformity or signs of injury. Normal range of motion. Cervical back: Normal range of motion and neck supple. No rigidity. Right lower leg: No edema. Left lower leg: No edema. Lymphadenopathy: Cervical: No cervical adenopathy. Skin: General: Skin is warm and dry. Capillary Refill: Capillary refill takes less than 2 seconds. Coloration: Skin is n (more content not included)... Normal [facility] DVT UPPER LTon 05-18-2022 DVT UPPER LT * * *Final Report* * * DATE OF EXAM: May 18 2022 4:24PM MDU 1003 - US DVT UPPER LT / PROCEDURE REASON: Arm deep vein thrombosis (DVT) suspected * * * * Physician Interpretation * * * * EXAMINATION: LEFT UPPER EXTREMITY DEEP VENOUS ULTRASOUND WITH DOPPLER IMAGING CLINICAL HISTORY: Discoloration of the arm. TECHNIQUE: Grayscale with compression maneuvers where accessible, color and spectral Doppler of the left internal jugular, subclavian, and axillary veins was performed. Grayscale with compression maneuvers of the left brachial, basilic and cephalic veins was also performed. The contralateral internal jugular and distal subclavian veins were imaged for comparison. Images were obtained and stored in a permanent archive. MQ: [id number] COMPARISON: None RESULT: Imaging somewhat limited by body habitus LEFT UPPER EXTREMITY DEEP VEINS Internal Jugular vein: Normal compression, normal spontaneous flow. Subclavian vein: Normal, spontaneous flow. Axillary vein: Normal compression, normal spontaneous flow. Brachial vein: Normal compression SUPERFICIAL VEINS Basilic vein: Normal compression. Cephalic vein: Normal compression. RIGHT UPPER EXTREMITY (FOR COMPARISON) DEEP VEINS Internal Jugular and Distal Subclavian veins: Normal compression, normal spontaneous flow. IMPRESSION: Negative study for DVT in the left upper extremity. Negative study for superficial thrombophlebitis in the imaged segments of the left upper extremity. Field Liability Generalist: PSCKarthik Transcribe Date/Time: May 18 2022 4:37P Dictated by : DORIS STONE MD This examination was interpreted and the report reviewed and electronically signed by: DORIS STONE MD on May 18 2022 4:39PM EST [id number] Normal [facility] CBC W Auto Differential pane l (Bld)on 04-15-2022 Abs Immature Gran 0.03 k/uL <0.10 k/uL [facility] Basophils (Bld) [#/Vol] 0.04 10*3/uL <0.11 k/uL [facility] Basophils/100 WBC (Bld) 0.6 % [facility] Differential cell count method Nom (Bld) Auto [facility] Eosinophils (Bld) [#/Vol] 0.12 10*3/uL <0.46 k/uL [facility] Eosinophils/100 WBC (Bld) 1.7 % [facility] Erythrocyte distribution width (RBC) [Ratio] 15.9 % High 11.5 - 15.0 % [facility] Hematocrit (Bld) [Volume fraction] 38.4 % 36.0 - 46.0 % [facility] Hemoglobin (Bld) [Mass/Vol] 12.0 g/dL 11.5 - 15.5 g/dL [facility] Immature Gran % 0.4 % [facility] Lymphocytes (Bld) [#/Vol] 1.64 10*3/uL 1.00 - 4.00 k/uL [facility] Lymphocytes/100 WBC (Bld) 23.0 % [facility] MCH (RBC) [Entitic mass] 29.1 pg 26.0 - 34.0 pg [facility] MCHC (RBC) [Mass/Vol] 31.3 g/dL 30.5 - 36.0 g/dL [facility] MCV (RBC) [Entitic vol] 93.0 fL 80.0 - 100.0 fL [facility] Monocytes (Bld) [#/Vol] 0.54 10*3/uL <0.87 k/uL [facility] Monocytes/100 WBC (Bld) 7.6 % [facility] Neutrophils (Bld) [#/Vol] 4.76 10*3/uL 1.45 - 7.50 k/uL [facility] Neutrophils/100 WBC (Bld) 66.7 % [facility] Nucleated RBC (Bld) [#/Vol] <0.01 k/uL [facility] Nucleated RBC/100 WBC (Bld) [Ratio] 0.0 /100 WBC [facility] Platelet mean volume (Bld) [Entitic vol] 10.6 fL 9.0 - 12.7 fL [facility] Platelets (Bld) [#/Vol] 249 10*3/uL 150 - 400 k/uL [facility] RBC (Bld) [#/Vol] 4.13 10*6/uL 3.90 - 5.2 0 m/uL [facility] WBC (Bld) [#/Vol] 7.13 10*3/uL 3.70 - 11.00 k/uL [facility] Basophils (Bld) [#/Vol] 0.04 10*3/uL Normal <0.11 [facility] Comment on above: Order Comment: Speci men Type: BLOOD SPECIMEN Ordering Facility: [facility] Address: [address] [place] [address] Performed By: #### 5 7021-8 #### [facility] CLIA [id number] [address] Basophils/100 WBC (Bld) 0.6 % Normal [facility] Comment on above: Order Comment: Speci men Type: BLOOD SPECIMEN Ordering Facility: [facility] Address: [address] [place] [address] Performed By: #### 5 7021-8 #### [facility] CLIA [id number] [address] OF [facility] Differential cell count method Nom (Bld) Auto Normal [facility] Comment on above: Order Comment: Speci men Type: BLOOD SPECIMEN Ordering Facility: [facility] Address: [address] [place], [place] [address] Performed By: #### 5 7021-8 #### [facility] CLIA [id number] [address] [place] [address] [place] Eosinophils (Bld) [#/Vol] 0.12 10*3/uL Normal <0.46 [facility] Comment on above: Order Comment: Speci men Type: BLOOD SPECIMEN Ordering Facility: [facility] Address: [address] [place] [address] Performed By: #### 5 7021-8 #### [facility] CLIA [id number] [address] [place] [address] [place] Eosinophils/100 WBC (Bld) 1.7 % Normal [facility] Comment on above: Order Comment: Speci men Type: BLOOD SPECIMEN Ordering Facility: [facility] Address: [address] [place] [address] Performed By: #### 5 7021-8 #### [facility] CLIA [id number] [address] [place] Erythrocyte distribution width (RBC) [Ratio] 15.9 % High 11.5-15.0 [facility] Comment on above: Order Comment: Speci men Type: BLOOD SPECIMEN Ordering Facility: [facility] Address: [address] [place] [address] Performed By: #### 5 7021-8 #### [facility] CLIA [id number] [address] [place] Hematocrit (Bld) [Volume fraction] 38.4 % Normal 36.0-46.0 [facility] Comment on above: Order Comment: Speci men Type: BLOOD SPECIMEN Ordering Facility: [facility] Address: [address] [place] [address] Performed By: #### 5 7021-8 #### [facility] CLIA [id number] [address] [place] Hemoglobin (Bld) [Mass/Vol] 12.0 g/dL Normal 11.5-15.5 [facility] Comment on above: Order Comment: Speci men Type: BLOOD SPECIMEN Ordering Facility: [facility] Address: [address] [place] [address] Performed By: #### 5 7021-8 #### [facility] CLIA [id number] [address] IMMATURE GRAN % 0.4 % Normal [facility] Comment on above: Order Comment: Speci men Type: BLOOD SPECIMEN Ordering Facility: [facility] Address: [address] [place] [address] Performed By: #### 5 7021-8 #### [facility] CLIA [id number] [address] [place] IMMATURE GRAN ABS 0.03 k/uL Normal <0.10 [facility] Comment on above: Order Comment: Speci men Type: BLOOD SPECIMEN Ordering Facility: [facility] Address: [address] [place] [address] Performed By: #### 5 7021-8 #### [facility] CLIA [id number] [address] [place] Lymphocytes (Bld) [#/Vol] 1.64 10*3/uL Normal 1.00-4.00 [facility] Comment on above: Order Comment: Speci men Type: BLOOD SPECIMEN Ordering Facility: [facility] Address: [address] [place] [address] Performed By: #### 5 7021-8 #### [facility] CLIA [id number] [address] Lymphocytes/100 WBC (Bld) 23.0 % Normal [facility] Comment on above: Order Comment: Speci men Type: BLOOD SPECIMEN Ordering Facility: [facility] Address: [address] [place] [address] Performed By: #### 5 7021-8 #### [facility] CLIA [id number] [address] [place] MCH (RBC) [Entitic mass] 29.1 pg Normal 26.0-34.0 [facility] Comment on above: Order Comment: Speci men Type: BLOOD SPECIMEN Ordering Facility: [facility] Address: [address] [place] [address] Performed By: #### 5 7021-8 #### [facility] CLIA [id number] [address] [place] MCHC (RBC) [Mass/Vol] 31.3 g/dL Normal 30.5-36.0 [facility] Comment on above: Order Comment: Speci men Type: BLOOD SPECIMEN Ordering Facility: [facility] Address: [address] [place] [address] Performed By: #### 5 7021-8 #### [facility] CLIA [id number] [address] [place] [address] [place] MCV (RBC) [Entitic vol] 93.0 fL Normal 80.0-100.0 [facility] Comment on above: Order Comment: Speci men Type: BLOOD SPECIMEN Ordering Facility: [facility] Address: [address] [place] [address] Performed By: #### 5 7021-8 #### [facility] CLIA [id number] [address] [place] [address] [place] Monocytes (Bld) [#/Vol] 0.54 10*3/uL Normal <0.87 [facility] Comment on above: Order Comment: Speci men Type: BLOOD SPECIMEN Ordering Facility: [facility] Address: [address] [place] [address] Performed By: #### 5 7021-8 #### [facility] CLIA [id number] [address] [place] Monocytes/100 WBC (Bld) 7.6 % Normal [facility] Comment on above: Order Comment: Speci men Type: BLOOD SPECIMEN Ordering Facility: [facility] Address: [address] [place] [address] Performed By: #### 5 7021-8 #### [facility] CLIA [id number] [address] [place] [address] [place] Neutrophils (Bld) [#/Vol] 4.76 10*3/uL Normal 1.45-7.50 [facility] Comment on above: Order Comment: Speci men Type: BLOOD SPECIMEN Ordering Facility: [facility] Address: [address] [place] [address] Performed By: #### 5 7021-8 #### [facility] CLIA [id number] [address] [place] [address] [place] Neutrophils/100 WBC (Bld) 66.7 % Normal [facility] Comment on above: Order Comment: Speci men Type: BLOOD SPECIMEN Ordering Facility: [facility] Address: [address] [place] [address] Performed By: #### 5 7021-8 #### [facility] CLIA [id number] [address] [place] [address] [place] Nucleated RBC (Bld) [#/Vol] 10*3/uL Normal <0.01 [facility] Comment on above: Order Comment: Speci men Type: BLOOD SPECIMEN Ordering Facility: [facility] Address: [address] [place] [address] Performed By: #### 5 7021-8 #### [facility] CLIA [id number] [address] [place] [address] [place] Nucleated RBC/100 WBC (Bld) [Ratio] 0.0 /100 WBC Normal [facility] Comment on above: Order Comment: Speci men Type: BLOOD SPECIMEN Ordering Facility: [facility] Address: [address] [place] [address] Performed By: #### 5 7021-8 #### [facility] CLIA [id number] [address] [place] [address] [place] Platelet mean volume (Bld) [Entitic vol] 10.6 fL Normal 9.0-12.7 [facility] Comment on above: Order Comment: Speci men Type: BLOOD SPECIMEN Ordering Facility: [facility] Address: [address] [place] [address] Performed By: #### 5 7021-8 #### [facility] CLIA [id number] [address] [place] [address] [place] Platelets (Bld) [#/Vol] 249 10*3/uL Normal 150-400 [facility] Comment on above: Order Comment: Speci men Type: BLOOD SPECIMEN Ordering Facility: [facility] Address: [address] [place] [address] Performed By: #### 5 7021-8 #### [facility] CLIA [id number] [address] [place] [address] [place] RBC (Bld) [#/Vol] 4.13 10*6/uL Normal 3.90-5.[address] [facility] Comment on above: Order Comment: Speci men Type: BLOOD SPECIMEN Ordering Facility: [facility] Address: [address] [place] [address] Performed By: #### 5 7021-8 #### [facility] CLIA [id number] [address] [place] [address] [place] WBC (Bld) [#/Vol] 7.13 10*3/uL Normal 3.70-11.[address] [facility] Comment on above: Order Comment: Speci men Type: BLOOD SPECIMEN Ordering Facility: [facility] Address: [address] [place] [address] Performed By: #### 5 7021-8 #### [facility] CLIA [id number] [address] [place] [address] [place] Comprehensive metabolic 2000 panelon 04-15-2022 Albumin [Mass/Vol] 3.8 g/dL Low 3.9 - 4.9 g/dL [facility] ALP [Catalytic activity/Vol] 78 U/L 34 - 123 U/L [facility] ALT [Catalytic activity/Vol] 13 U/L 7 - 38 U/L [facility] Anion gap [Moles/Vol] 10 mmol/L 9 - 18 mmol/L [facility] AST [Catalytic activity/Vol] 35 U/L 13 - 35 U/L [facility] Bilirubin [Mass/Vol] 0.8 mg/dL 0.2 - 1 .3 mg/dL [facility] Calcium [Mass/Vol] 9.7 mg/dL 8.5 - 10. 2 mg/dL [facility] Chloride [Moles/Vol] 103 mmol/L 97 - 10 5 mmol/L [facility] CO2 [Moles/Vol] 29 mmol/L 22 - 30 mmol/L [facility] Creatinine [Mass/Vol] 0.77 mg/dL 0.58 - 0.96 mg/dL [facility] Estimated Glomerular Filtration Rate 92 mL/min/1.73m >=60 mL/min/1.73 m [facility] Glucose [Mass/Vol] 125 mg/dL High 74 - 99 mg/dL [facility] Potassium [Moles/Vol] 4.0 mmol/L 3.7 - 5.1 mmol/L [facility] Protein [Mass/Vol] 6.8 g/dL 6.3 - 8.0 g/dL [facility] Sodium [Moles/Vol] 142 mmol/L 136 - 144 mmol/L [facility] Urea nitrogen [Mass/Vol] 9 mg/dL 7 - 21 mg/dL [facility] Albumin [Mass/Vol] 3.8 g/dL Low 3.9-4.9 [facility] Comment on above: Order Comment: Speci men Type: BLOOD SPECIMEN Ordering Facility: [facility] Address: [address] [place] [address] Performed By: #### 2 4323-8 #### [facility] CLIA [id number] [address] [place] [address] [place] ALP [Catalytic activity/Vol] 78 U/L Normal 34-123 [facility] Comment on above: Order Comment: Speci men Type: BLOOD SPECIMEN Ordering Facility: [facility] Address: [address] [place] [address] Performed By: #### 2 4323-8 #### [facility] CLIA [id number] [address] [place] [address] [place] ALT [Catalytic activity/Vol] 13 U/L Normal 7-38 [facility] Comment on above: Order Comment: Speci men Type: BLOOD SPECIMEN Ordering Facility: [facility] Address: [address] [place] [address] Performed By: #### 2 4323-8 #### [facility] CLIA [id number] [address] [place] [address] [place] Anion gap [Moles/Vol] 10 mmol/L Normal 9-18 [facility] Comment on above: Order Comment: Speci men Type: BLOOD SPECIMEN Ordering Facility: [facility] Address: [address] [place] [address] Performed By: #### 2 4323-8 #### [facility] CLIA [id number] [address] [place] [address] [place] AST [Catalytic activity/Vol] 35 U/L Normal 13-35 [facility] Comment on above: Order Comment: Speci men Type: BLOOD SPECIMEN Ordering Facility: [facility] Address: [address] [place] [address] Performed By: #### 2 4323-8 #### [facility] CLIA [id number] [address] [place] [address] [place] Bilirubin [Mass/Vol] 0.8 mg/dL Normal 0.2-1.3 [facility] Comment on above: Order Comment: Speci men Type: BLOOD SPECIMEN Ordering Facility: [facility] Address: [address] [place] [address] Performed By: #### 2 4323-8 #### [facility] CLIA [id number] [address] [place] [address] [place] Calcium [Mass/Vol] 9.7 mg/dL Normal 8.5-10.2 [facility] Comment on above: Order Comment: Speci men Type: BLOOD SPECIMEN Ordering Facility: [facility] Address: [address] [place] [address] Performed By: #### 2 4323-8 #### [facility] CLIA [id number] [address] [place] [address] [place] Chloride [Moles/Vol] 103 mmol/L Normal 97-105 [facility] Comment on above: Order Comment: Speci men Type: BLOOD SPECIMEN Ordering Facility: [facility] Address: [address] [place] [address] Performed By: #### 2 4323-8 #### [facility] CLIA [id number] [address] [place] [address] [place] CO2 [Moles/Vol] 29 mmol/L Normal 22-30 [facility] Comment on above: Order Comment: Susie santizo Type: BLOOD SPECIMEN Ordering Facility: [facility] Address: [address] [place] [address] Performed By: #### 2 4323-8 #### [facility] CLIA [id number] [address] [place] [address] [place] Creatinine [Mass/Vol] 0.77 mg/dL Normal 0.58-0.96 [facility] Comment on above: Order Comment: Speci men Type: BLOOD SPECIMEN Ordering Facility: [facility] Address: [address] [place] [address] Performed By: #### 2 4323-8 #### [facility] CLIA [id number] [address] [place] [address] [place] ESTIMATED GLOMERULAR FILTRATION RATE 92 mL/min/1.73m??? Normal >=60 [facility] Comment on above: Order Comment: Susie men Type: BLOOD SPECIMEN Ordering Facility: [facility] Address: [address] [place] [address] Result Comment: Cecille mated Glomerular Filtration Rate (eGFR) is calculated using the 2020 CKD-EPI creatinine equation. This equation utilizes serum creatinine, sex, and age as parameters. The creatinine assay has traceable calibration to isotope dilution-mass spectrometry. Refer to KDIGO guidelines for clinical interpretation. In patients with unstable renal function, e.g. those with acute kidney injury, the eGFR may not accurately reflect actual GFR. Performed By: #### 2 4323-8 #### [facility] CLIA [id number] [address] [place] [address] [place] Glucose [Mass/Vol] 125 mg/dL High 74-99 [facility] Comment on above: Order Comment: Tristiani sukhdev Type: BLOOD SPECIMEN Ordering Facility: [facility] Address: [address] [place] [address] Result Comment: The [place] [employer] (ADA) provides guidance for cutoff values for fasting glucose and random glucose. The ADA defines fasting as no caloric intake for at least 8 hours. Fasting plasma glucose results between 100 to 125 mg/dL indicate increased risk for diabetes (prediabetes). Fasting plasma glucose results greater than or equal to 126 mg/dL meet the criteria for diagnosis of diabetes. In the absence of unequivocal hyperglycemia, results should be confirmed by repeat testing. In a patient with classic symptoms of hyperglycemia or hyperglycemic crisis, random plasma glucose results greater than or equal to 200 mg/dL meet the criteria for diagnosis of diabetes. Reference: Standards of Medical Care in Diabetes 2016, [place] [employer]. Diabetes Care. 2016.39(Suppl 1). Performed By: #### 2 4323-8 #### [facility] CLIA [id number] [address] [place] [address] [place] Potassium [Moles/Vol] 4.0 mmol/L Normal 3.7-5.1 [facility] Comment on above: Order Comment: Speci men Type: BLOOD SPECIMEN Ordering Facility: [facility] Address: [address] [place] [address] Performed By: #### 2 4323-8 #### [facility] CLIA [id number] [address] [place] [address] [place] Protein [Mass/Vol] 6.8 g/dL Normal 6.3-8.0 [facility] Comment on above: Order Comment: Speci men Type: BLOOD SPECIMEN Ordering Facility: [facility] Address: [address] [place] [address] Performed By: #### 2 4323-8 #### [facility] CLIA [id number] [address] [place] [address] [place] Sodium [Moles/Vol] 142 mmol/L Normal 136-144 [facility] Comment on above: Order Comment: Speci men Type: BLOOD SPECIMEN Ordering Facility: [facility] Address: [address] [place] [address] Performed By: #### 2 4323-8 #### [facility] CLIA [id number] [address] [place] [address] [place] Urea nitrogen [Mass/Vol] 9 mg/dL Normal 7-21 [facility] Comment on above: Order Comment: Speci men Type: BLOOD SPECIMEN Ordering Facility: [facility] Address: [address] [place], [place] [address] Performed By: #### 2 4323-8 #### [facility] CLIA [id number] [address] OF [facility] MAGNESIUM BLDon 04-15-2022 Magnesium [Mass/Vol] 1.8 mg/dL 1.7 - 2 .3 mg/dL [facility] Magnesium SerPl-mCncon 04-15 Magnesium [Mass/Vol] 1.8 mg/dL Normal 1.7-2.3 [facility] Comment on above: Order Comment: Speci men Type: BLOOD SPECIMEN [facility] Address: [address] [place] [address] Performed By: #### 1 9123-9 #### [facility] CLIA [id number] [address] [place] CBC W Auto Differential pane l (Bld)on 04-08-2022 Abs Immature Gran 0.04 k/uL <0.10 k/uL [facility] Basophils (Bld) [#/Vol] 0.03 10*3/uL <0.11 k/uL [facility] Basophils/100 WBC (Bld) 0.5 % C [facility] Differential cell count method Nom (Bld) Auto [facility] Eosinophils (Bld) [#/Vol] 0.14 10*3/uL <0.46 k/uL [facility] Eosinophils/100 WBC (Bld) 2.3 % [facility] Erythrocyte distribution width (RBC) [Ratio] 16.4 % High 11.5 - 15.0 % [facility] Hematocrit (Bld) [Volume fraction] 37.6 % 36.0 - 46.0 % [facility] Hemoglobin (Bld) [Mass/Vol] 11.8 g/dL 11.5 - 15.5 g/dL [facility] Immature Gran % 0.6 % [facility] Lymphocytes (Bld) [#/Vol] 1.56 10*3/uL 1.00 - 4.00 k/uL [facility] Lymphocytes/100 WBC (Bld) 25.1 % [facility] MCH (RBC) [Entitic mass] 29.4 pg 26.0 - 34.0 pg [facility] MCHC (RBC) [Mass/Vol] 31.4 g/dL 30.5 - 36.0 g/dL [facility] MCV (RBC) [Entitic vol] 93.8 fL 80.0 - 100.0 fL [facility] Monocytes (Bld) [#/Vol] 0.54 10*3/uL <0.87 k/uL [facility] Monocytes/100 WBC (Bld) 8.7 % C [facility] Neutrophils (Bld) [#/Vol] 3.91 10*3/uL 1.45 - 7.50 k/uL [facility] Neutrophils/100 WBC (Bld) 62.8 % [facility] Nucleated RBC (Bld) [#/Vol] <0.01 k/uL [facility] Nucleated RBC/100 WBC (Bld) [Ratio] 0.0 /100 WBC [facility] Platelet mean volume (Bld) [Entitic vol] 10.3 fL 9.0 - 12.7 fL [facility] Platelets (Bld) [#/Vol] 316 10*3/uL 150 - 400 k/uL [facility] RBC (Bld) [#/Vol] 4.01 10*6/uL 3.90 - 5.2 0 m/uL [facility] WBC (Bld) [#/Vol] 6.22 10*3/uL 3.70 - 11.00 k/uL [facility] Basophils (Bld) [#/Vol] 0.03 10*3/uL Normal <0.11 [facility] Comment on above: Order Comment: Speci men Type: BLOOD SPECIMEN Ordering Facility: [facility] Address: [address] [place] [address] Performed By: #### 1 9123-9 #### [facility] CLIA [id number] [address] Basophils/100 WBC (Bld) 0.5 % Normal [facility] Comment on above: Order Comment: Speci men Type: BLOOD SPECIMEN Ordering Facility: [facility] Address: [address] [place] [address] Performed By: #### 1 9123-9 #### [facility] CLIA [id number] [address] [place] [address] [place] Differential cell count method Nom (Bld) Auto Normal [facility] Comment on above: Order Comment: Speci men Type: BLOOD SPECIMEN Ordering Facility: [facility] Address: [address] [place] [address] Performed By: #### 1 9123-9 #### [facility] CLIA [id number] [address] [place] [address] [place] Eosinophils (Bld) [#/Vol] 0.14 10*3/uL Normal <0.46 [facility] Comment on above: Order Comment: Speci men Type: BLOOD SPECIMEN Ordering Facility: [facility] Address: [address] [place] [address] Performed By: #### 1 9123-9 #### [facility] CLIA [id number] [address] [place] Eosinophils/100 WBC (Bld) 2.3 % Normal [facility] Comment on above: Order Comment: Speci men Type: BLOOD SPECIMEN Ordering Facility: [facility] Address: [address] [place] [address] Performed By: #### 1 9123-9 #### [facility] CLIA [id number] [address] [place] Erythrocyte distribution width (RBC) [Ratio] 16.4 % High 11.5-15.0 [facility] Comment on above: Order Comment: Speci men Type: BLOOD SPECIMEN Ordering Facility: [facility] Address: [address] [place] [address] Performed By: #### 1 9123-9 #### [facility] CLIA [id number] [address] [place] [address] [place] Hematocrit (Bld) [Volume fraction] 37.6 % Normal 36.0-46.0 [facility] Comment on above: Order Comment: Speci men Type: BLOOD SPECIMEN Ordering Facility: [facility] Address: [address] [place] [address] Performed By: #### 1 9123-9 #### [facility] CLIA [id number] [address] [place] [address] [place] Hemoglobin (Bld) [Mass/Vol] 11.8 g/dL Normal 11.5-15.5 [facility] Comment on above: Order Comment: Speci men Type: BLOOD SPECIMEN Ordering Facility: [facility] Address: [address] [place] [address] Performed By: #### 1 9123-9 #### [facility] CLIA [id number] [address] [place] IMMATURE GRAN % 0.6 % Normal [facility] Comment on above: Order Comment: Speci men Type: BLOOD SPECIMEN Ordering Facility: [facility] Address: [address] [place] [address] Performed By: #### 1 9123-9 #### [facility] CLIA [id number] [address] IMMATURE GRAN ABS 0.04 k/uL Normal <0.10 [facility] Comment on above: Order Comment: Speci men Type: BLOOD SPECIMEN Ordering Facility: [facility] Address: [address] [place] [address] Performed By: #### 1 9123-9 #### [facility] CLIA [id number] [address] [place] Lymphocytes (Bld) [#/Vol] 1.56 10*3/uL Normal 1.00-4.00 [facility] Comment on above: Order Comment: Speci men Type: BLOOD SPECIMEN Ordering Facility: [facility] Address: [address] [place] [address] Performed By: #### 1 9123-9 #### [facility] CLIA [id number] [address] Lymphocytes/100 WBC (Bld) 25.1 % Normal [facility] Comment on above: Order Comment: Speci men Type: BLOOD SPECIMEN Ordering Facility: [facility] Address: [address] [place] [address] Performed By: #### 1 9123-9 #### [facility] CLIA [id number] [address] [place] MCH (RBC) [Entitic mass] 29.4 pg Normal 26.0-34.0 [facility] Comment on above: Order Comment: Speci men Type: BLOOD SPECIMEN Ordering Facility: [facility] Address: [address] [place] [address] Performed By: #### 1 9123-9 #### [facility] CLIA [id number] [address] [place] MCHC (RBC) [Mass/Vol] 31.4 g/dL Normal 30.5-36.0 [facility] Comment on above: Order Comment: Speci men Type: BLOOD SPECIMEN Ordering Facility: [facility] Address: [address] [place] [address] Performed By: #### 1 9123-9 #### [facility] CLIA [id number] [address] MCV (RBC) [Entitic vol] 93.8 fL Normal 80.0-100.0 [facility] Comment on above: Order Comment: Speci men Type: BLOOD SPECIMEN Ordering Facility: [facility] Address: [address] [place] [address] Performed By: #### 1 9123-9 #### [facility] CLIA [id number] [address] [place] Monocytes (Bld) [#/Vol] 0.54 10*3/uL Normal <0.87 [facility] Comment on above: Order Comment: Speci men Type: BLOOD SPECIMEN Ordering Facility: [facility] Address: [address] [place] [address] Performed By: #### 1 9123-9 #### [facility] CLIA [id number] [address] Monocytes/100 WBC (Bld) 8.7 % Normal [facility] Comment on above: Order Comment: Speci men Type: BLOOD SPECIMEN Ordering Facility: [facility] Address: [address] [place] [address] Performed By: #### 1 9123-9 #### [facility] CLIA [id number] [address] [place] [address] [place] Neutrophils (Bld) [#/Vol] 3.91 10*3/uL Normal 1.45-7.50 [facility] Comment on above: Order Comment: Speci men Type: BLOOD SPECIMEN Ordering Facility: [facility] Address: [address] [place] [address] Performed By: #### 1 9123-9 #### [facility] CLIA [id number] [address] [place] Neutrophils/100 WBC (Bld) 62.8 % Normal [facility] Comment on above: Order Comment: Speci men Type: BLOOD SPECIMEN Ordering Facility: [facility] Address: [address] [place] [address] Performed By: #### 1 9123-9 #### [facility] CLIA [id number] [address] [place] [address] [place] Nucleated RBC (Bld) [#/Vol] 10*3/uL Normal <0.01 [facility] Comment on above: Order Comment: Speci men Type: BLOOD SPECIMEN Ordering Facility: [facility] Address: [address] [place] [address] Performed By: #### 1 9123-9 #### [facility] CLIA [id number] [address] [place] Nucleated RBC/100 WBC (Bld) [Ratio] 0.0 /100 WBC Normal [facility] Comment on above: Order Comment: Speci men Type: BLOOD SPECIMEN Ordering Facility: [facility] Address: [address] [place] [address] Performed By: #### 1 9123-9 #### [facility] CLIA [id number] [address] [place] Platelet mean volume (Bld) [Entitic vol] 10.3 fL Normal 9.0-12.7 [facility] Comment on above: Order Comment: Speci men Type: BLOOD SPECIMEN Ordering Facility: [facility] Address: [address] [place] [address] Performed By: #### 1 9123-9 #### [facility] CLIA [id number] [address] [place] [address] [place] Platelets (Bld) [#/Vol] 316 10*3/uL Normal 150-400 [facility] Comment on above: Order Comment: Speci men Type: BLOOD SPECIMEN Ordering Facility: [facility] Address: [address] [place] [address] Performed By: #### 1 9123-9 #### [facility] CLIA [id number] [address] [place] [address] [place] RBC (Bld) [#/Vol] 4.01 10*6/uL Normal 3.90-5.[address] [facility] Comment on above: Order Comment: Speci men Type: BLOOD SPECIMEN Ordering Facility: [facility] Address: [address] [place] [address] Performed By: #### 1 9123-9 #### [facility] CLIA [id number] [address] STATES [facility] WBC (Bld) [#/Vol] 6.22 10*3/uL Normal 3.70-11.[address] [facility] Comment on above: Order Comment: Speci men Type: BLOOD SPECIMEN Ordering Facility: [facility] Address: [address] [place] [address] Performed By: #### 1 9123-9 #### [facility] CLIA [id number] [address] [place] [address] [place] Comprehensive metabolic 2000 panelon 04-08-2022 Albumin [Mass/Vol] 3.6 g/dL Low 3.9 - 4.9 g/dL [facility] ALP [Catalytic activity/Vol] 73 U/L 34 - 123 U/L [facility] ALT [Catalytic activity/Vol] 13 U/L 7 - 38 U/L [facility] Anion gap [Moles/Vol] 14 mmol/L 9 - 18 mmol/L [facility] AST [Catalytic activity/Vol] 23 U/L 13 - 35 U/L [facility] Bilirubin [Mass/Vol] 0.4 mg/dL 0.2 - 1 .3 mg/dL [facility] Calcium [Mass/Vol] 9.3 mg/dL 8.5 - 10. 2 mg/dL [facility] Chloride [Moles/Vol] 101 mmol/L 97 - 10 5 mmol/L [facility] CO2 [Moles/Vol] 26 mmol/L 22 - 30 mmol/L [facility] Creatinine [Mass/Vol] 0.65 mg/dL 0.58 - 0.96 mg/dL [facility] Estimated Glomerular Filtration Rate 105 mL/min/1.73m >=60 mL/min/1.73 m [facility] Glucose [Mass/Vol] 188 mg/dL High 74 - 99 mg/dL [facility] Potassium [Moles/Vol] 3.6 mmol/L Low 3.7 - 5.1 mmol/L [facility] Protein [Mass/Vol] 6.7 g/dL 6.3 - 8.0 g/dL [facility] Sodium [Moles/Vol] 141 mmol/L 136 - 144 mmol/L [facility] Urea nitrogen [Mass/Vol] 12 mg/dL 7 - 21 mg/dL [facility] Albumin [Mass/Vol] 3.6 g/dL Low 3.9-4.9 [facility] Comment on above: Order Comment: Speci men Type: BLOOD SPECIMEN Ordering Facility: [facility] Address: [address] [place] [address] Performed By: #### 2 4323-8 #### [facility] CLIA [id number] [address] [place] [address] [place] [facility] ALP [Catalytic activity/Vol] 73 U/L Normal 34-123 [facility] Comment on above: Order Comment: Speci men Type: BLOOD SPECIMEN Ordering Facility: [facility] Address: [address] [place] [address] Performed By: #### 2 4323-8 #### [facility] CLIA [id number] [address] [place] [address] [place] ALT [Catalytic activity/Vol] 13 U/L Normal 7-38 [facility] Comment on above: Order Comment: Speci men Type: BLOOD SPECIMEN Ordering Facility: [facility] Address: [address] [place] [address] Performed By: #### 2 4323-8 #### [facility] CLIA [id number] [address] [place] [address] [place] Anion gap [Moles/Vol] 14 mmol/L Normal 9-18 [facility] Comment on above: Order Comment: Speci men Type: BLOOD SPECIMEN Ordering Facility: [facility] Address: [address] [place] [address] Performed By: #### 2 4323-8 #### [facility] CLIA [id number] [address] [place] [address] [place] AST [Catalytic activity/Vol] 23 U/L Normal 13-35 [facility] Comment on above: Order Comment: Speci men Type: BLOOD SPECIMEN Ordering Facility: [facility] Address: [address] [place] [address] Performed By: #### 2 4323-8 #### [facility] CLIA [id number] [address] [place] [address] [place] Bilirubin [Mass/Vol] 0.4 mg/dL Normal 0.2-1.3 [facility] Comment on above: Order Comment: Speci men Type: BLOOD SPECIMEN Ordering Facility: [facility] Address: [address] [place] [address] Performed By: #### 2 4323-8 #### [facility] CLIA [id number] [address] [place] [address] [place] Calcium [Mass/Vol] 9.3 mg/dL Normal 8.5-10.2 [facility] Comment on above: Order Comment: Speci men Type: BLOOD SPECIMEN Ordering Facility: [facility] Address: [address] [place] [address] Performed By: #### 2 4323-8 #### [facility] CLIA [id number] [address] [place] [address] [place] Chloride [Moles/Vol] 101 mmol/L Normal 97-105 [facility] Comment on above: Order Comment: Speci men Type: BLOOD SPECIMEN Ordering Facility: [facility] Address: [address] [place] [address] Performed By: #### 2 4323-8 #### [facility] CLIA [id number] [address] [place] [address] [place] CO2 [Moles/Vol] 26 mmol/L Normal 22-30 [facility] Comment on above: Order Comment: Speci men Type: BLOOD SPECIMEN Ordering Facility: [facility] Address: [address] [place] [address] Performed By: #### 2 4323-8 #### [facility] CLIA [id number] [address] [place] [address] [place] Creatinine [Mass/Vol] 0.65 mg/dL Normal 0.58-0.96 [facility] Comment on above: Order Comment: Speci men Type: BLOOD SPECIMEN Ordering Facility: [facility] Address: [address] [place] [address] Performed By: #### 2 4323-8 #### [facility] CLIA [id number] [address] ESTIMATED GLOMERULAR FILTRATION RATE 105 mL/min/1.73m??? Normal >=60 [facility] Comment on above: Order Comment: Speci men Type: BLOOD SPECIMEN Ordering Facility: [facility] Address: [address] [place] [address] Result Comment: Cecille mated Glomerular Filtration Rate (eGFR) is calculated using the 2020 CKD-EPI creatinine equation. This equation utilizes serum creatinine, sex, and age as parameters. The creatinine assay has traceable calibration to isotope dilution-mass spectrometry. Refer to KDIGO guidelines for clinical interpretation. In patients with unstable renal function, e.g. those with acute kidney injury, the eGFR may not accurately reflect actual GFR. Performed By: #### 2 4323-8 #### [facility] CLIA [id number] [address] [place] Glucose [Mass/Vol] 188 mg/dL High 74-99 [facility] Comment on above: Order Comment: Speci men Type: BLOOD SPECIMEN Ordering Facility: [facility] Address: [address] [place] [address] Result Comment: The [place] Diabetes [employer] (ADA) provides guidance for cutoff values for fasting glucose and random glucose. The ADA defines fasting as no caloric intake for at least 8 hours. Fasting plasma glucose results between 100 to 125 mg/dL indicate increased risk for diabetes (prediabetes). Fasting plasma glucose results greater than or equal to 126 mg/dL meet the criteria for diagnosis of diabetes. In the absence of unequivocal hyperglycemia, results should be confirmed by repeat testing. In a patient with classic symptoms of hyperglycemia or hyperglycemic crisis, random plasma glucose results greater than or equal to 200 mg/dL meet the criteria for diagnosis of diabetes. Reference: Standards of Medical Care in Diabetes 2016, [place] [employer]. Diabetes Care. 2016.39(Suppl 1). Performed By: #### 2 4323-8 #### [facility] CLIA [id number] 1000 [place] [address] [place] Potassium [Moles/Vol] 3.6 mmol/L Low 3.7-5.1 [facility] Comment on above: Order Comment: Speci men Type: BLOOD SPECIMEN Ordering Facility: [facility] Address: [address] [place] [address] Performed By: #### 2 4323-8 #### [facility] CLIA [id number] 1000 [place] [address] [place] Protein [Mass/Vol] 6.7 g/dL Normal 6.3-8.0 [facility] Comment on above: Order Comment: Tristiani men Type: BLOOD SPECIMEN Ordering Facility: [facility] Address: [address] [place] [address] Performed By: #### 2 4323-8 #### [facility] CLIA [id number] 1000 [place] [address] [place] Sodium [Moles/Vol] 141 mmol/L Normal 136-144 [facility] Comment on above: Order Comment: Speci men Type: BLOOD SPECIMEN Ordering Facility: [facility] Address: [address] [place] [address] Performed By: #### 2 4323-8 #### [facility] CLIA [id number] 1000 [place] [address] [place] Urea nitrogen [Mass/Vol] 12 mg/dL Normal 7-21 [facility] Comment on above: Order Comment: Susie santizo Type: BLOOD SPECIMEN Ordering Facility: [facility] Address: [address] [place] [address] Performed By: #### 2 4323-8 #### [facility] CLIA [id number] [address] [place] MAGNESIUM BLDon 04-08-2022 Magnesium [Mass/Vol] 1.7 mg/dL 1.7 - 2 .3 mg/dL [facility] Magnesium SerPl-mCncon 04-08 Magnesium [Mass/Vol] 1.7 mg/dL Normal 1.7-2.3 [facility] Comment on above: Order Comment: Susie santizo Type: BLOOD SPECIMEN Ordering Facility: [facility] Address: [address] [place] [address] Performed By: #### 1 9123-9 #### [facility] CLIA [id number] 1000 [place] [address] [place] Bacteria Ur Culton 2 Bacteria identified Cx Nom (U) ORGANISM ID: 1 >=100,000 CFU/ml Escherichia coli ORGANISM ID: 2 10,000 -<50,000 CFU/ml Lactose positive gram negative bacilli Insignificant colony count. No further workup. ORGANISM ID: 1 (ESCHERICHIA COLI) ANTIBIOTIC INTERPRETATION JOSE STATUS REFERENCE RANGE Ampicillin R >=32 F Susceptible <=8 , Intermediate >8 , Resistant >16 Ampicillin/Sulbact I 16 F Susceptible <=8 , Intermediate >8 , Resistant >16 Cefazolin S <=4 F Susceptible 0-16 , Intermediate <0 or >16 , Resistant >16 Cefepime S <=1 F Susceptible <=2 , Intermediate >2 , Resistant >=16 Ceftriaxone S <=1 F Susceptible <=1 , Intermediate >1 , Resistant >=4 Ciprofloxacin S <=0.25 F Susceptible <0.5 , Intermediate >=.5 , Resistant >=1 Ertapenem S <=0.5 F Susceptible <=0.5 , Intermediate >.5 , Resistant >1 Gentamicin S <=1 F Susceptible <=4 , Intermediate >4 , Resistant >8 Meropenem S <=0.25 F Susceptible <=1 , Intermediate >1 , Resistant >2 Nitrofurantoin S <=16 F Susceptible <=32 , Intermediate >32 , Resistant >64 Piperacillin/Tazobac S <=4 F Susceptible <=16 , Intermediate >16 , Resistant >64 Tobramycin S <=1 F Susceptible <=4 , Intermediate >4 , Resistant >8 Trimeth sulfameth S <=20 F Susceptible <=40 , Resistant >40 Abnormal [facility] Comment on above: Performed By: #### 6 30-4 ####[facility] [id number] [place] [address] [place] URINALYSIS, DIPSTICK ONLYon 04-07-2022 Bilirubin Ql (U) Negative Normal Negative [facility] Comment on above: Order Comment: Speci men Type: URINE SPECIMENOrdering Facility: [facility] Address: [address] [place] [address] Performed By: #### U A ####[facility] [id number] [address] [place] Clarity (Unsp spec) Clear Normal Clear [facility] Comment on above: Order Comment: Speci men Type: URINE SPECIMENOrdering Facility: [facility] Address: [address] [place] [address] Performed By: #### U A ####[facility] [id number] [place] [address] [place] Color (U) Yellow Normal Yellow [facility] Comment on above: Order Comment: Speci men Type: URINE SPECIMENOrdering Facility: [facility] Address: [address] [place] [address] Performed By: #### U A ####[facility] [id number] [place] [address] [place] Glucose Test strip (U) [Mass/Vol] Negative Normal Negative [facility] Comment on above: Order Comment: Speci men Type: URINE SPECIMENOrdering Facility: [facility] Address: [address] [place] [address] Performed By: #### U A ####[facility] [id number] [place] [address] [place] Hemoglobin Ql (U) 1+ Abnormal Negative [facility] Comment on above: Order Comment: Speci men Type: URINE SPECIMENOrdering Facility: [facility] Address: [address] [place] [address] Performed By: #### U A ####[facility] [id number] [place] [address] [place] Ketones Ql (U) Negative Normal Negative [facility] Comment on above: Order Comment: Speci men Type: URINE SPECIMENOrdering Facility: [facility] Address: [address] [place] [address] Performed By: #### U A ####[facility] [id number] [place] [address] [place] Leukocyte esterase Test strip Ql (U) 2+ Abnormal Negative [facility] Comment on above: Order Comment: Speci men Type: URINE SPECIMENOrdering Facility: [facility] Address: [address] [place] [address] Performed By: #### U A ####[facility] [id number] [place] [address] [place] Nitrite Ql (U) Negative Normal Negative [facility] Comment on above: Order Comment: Speci men Type: URINE SPECIMENOrdering Facility: [facility] Address: [address] [place] [address] Performed By: #### U A ####[facility] [id number] [place] [address] [place] pH (U) 6.0 [pH] Normal 5.0-8.0 [facility] Comment on above: Order Comment: Speci men Type: URINE SPECIMENOrdering Facility: [facility] Address: [address] [place] [address] Performed By: #### U A ####[facility]IA [id number] [place] [id number] [place] Protein (U) [Mass/Vol] Normal [facility] Comment on above: Order Comment: Speci men Type: URINE SPECIMENOrdering Facility: [facility] Address: [address] [place] [address] Result Comment: Visi ble blood causes falsely elevated results for analyte Protein. Due to this limitation, Protein will not be reported for patients whose urine contains visible blood. Performed By: #### U A ####[facility] [id number] [address] [place] Specific gravity (U) [Rel density] 1.010 Normal 1.005-1.030 [facility] Comment on above: Order Comment: Speci men Type: URINE SPECIMENOrdering Facility: [facility] Address: [address] [place] [address] Performed By: #### U A ####[facility]IA [id number] [place] [id number] [place] Urobilinogen Ql (U) 0.2 EU/dL Normal 0.2-1.0 EU/dL [facility] Comment on above: Order Comment: Speci men Type: URINE SPECIMENOrdering Facility: [facility] Address: [address] [place] [address] Performed By: #### U A ####[facility] [id number] [place] [id number] [place] Basic metabolic 2000 panelon 04-05-2022 Anion gap [Moles/Vol] 9 mmol/L Normal 05-26 [facility] Comment on above: Order Comment: Speci men Type: BLOOD SPECIMENOrdering Facility: [facility] Address: [address] [place] [address] Performed By: #### 2 4321-2 ####[facility]IA [id number] [place] [address] [place] Calcium [Mass/Vol] 9.5 mg/dL Normal 8.5-10.2 [facility] Comment on above: Order Comment: Speci men Type: BLOOD SPECIMENOrdering Facility: [facility] Address: [address] [place] [address] Performed By: #### 2 4321-2 ####[facility]ORYCLIA [id number] [place] [address] [place] Chloride [Moles/Vol] 102 mmol/L Normal 97-105 [facility] Comment on above: Order Comment: Speci men Type: BLOOD SPECIMENOrdering Facility: [facility] Address: [address] [place] [address] Performed By: #### 2 4321-2 ####[facility]ORYCLIA [id number] [place] [address] [place] CO2 [Moles/Vol] 30 mmol/L Normal 22-30 [facility] Comment on above: Order Comment: Speci men Type: BLOOD SPECIMENOrdering Facility: [facility] Address: [address] [place] [address] Performed By: #### 2 4321-2 ####[facility]ORYCLIA [id number] [place] [address] [place] Creatinine [Mass/Vol] 0.60 mg/dL Normal 0.58-0.96 [facility] Comment on above: Order Comment: Speci men Type: BLOOD SPECIMENOrdering Facility: [facility] Address: [address] [place] [address] Performed By: #### 2 4321-2 ####[facility]ORYCLIA [id number] [place] [address] [place] ESTIMATED GLOMERULAR FILTRATION RATE 107 mL/min/1.73m??? Normal >=60 [facility] Comment on above: Order Comment: Susie santizo Type: BLOOD SPECIMENOrdering Facility: [facility] Address: [address] [place] [address] Result Comment: Cecille mated Glomerular Filtration Rate (eGFR) is calculated using the 2020 CKD-EPI creatinine equation. This equation utilizes serum creatinine, sex, and age as parameters. The creatinine assay has traceable calibration to isotope dilution-mass spectrometry. Refer to KDIGO guidelines for clinical interpretation. In patients with unstable renal function, e.g. those with acute kidney injury, the eGFR may not accurately reflect actual GFR. Performed By: #### 2 4321-2 ####[facility]ORYCLIA [id number] [place] [address] [place] Glucose [Mass/Vol] 124 mg/dL High 74-99 [facility] Comment on above: Order Comment: Susie santizo Type: BLOOD SPECIMENOrdering Facility: [facility] Address: [address] [place] [address] Result Comment: The [place] Diabetes [employer] (ADA) provides guidance for cutoff values for fasting glucose and random glucose. The ADA defines fasting as no caloric intake for at least 8 hours. Fasting plasma glucose results between 100 to 125 mg/dL indicate increased risk for diabetes (prediabetes). Fasting plasma glucose results greater than or equal to 126 mg/dL meet the criteria for diagnosis of diabetes. In the absence of unequivocal hyperglycemia, results should be confirmed by repeat testing. In a patient with classic symptoms of hyperglycemia or hyperglycemic crisis, random plasma glucose results greater than or equal to 200 mg/dL meet the criteria for diagnosis of diabetes. Reference: Standards of Medical Care in Diabetes 2016, [place] [employer]. Diabetes Care. 2016.39(Suppl 1). Performed By: #### 2 4321-2 ####[facility]ORYCLIA [id number] [place] [id number] [place] Potassium [Moles/Vol] 4.1 mmol/L Normal 3.7-5.1 [facility] Comment on above: Order Comment: Susie santizo Type: BLOOD SPECIMENOrdering Facility: [facility] Address: [address] [place] [address] Performed By: #### 2 4321-2 ####[facility]CLIA [id number] [address] Sodium [Moles/Vol] 141 mmol/L Normal 136-144 [facility] Comment on above: Order Comment: Speci men Type: BLOOD SPECIMENOrdering Facility: [facility] Address: [address] [place] [address] Performed By: #### 2 4321-2 ####[facility]CLIA [id number] [place] [address] [place] Urea nitrogen [Mass/Vol] 8 mg/dL Normal 7-21 [facility] Comment on above: Order Comment: Speci men Type: BLOOD SPECIMENOrdering Facility: [facility] Address: [address] [place] [address] Performed By: #### 2 4321-2 ####[facility]ORYCLIA [id number] [address] [place] CBC panel Auto (Bld)on 04-05 Erythrocyte distribution width (RBC) [Ratio] 15.9 % High 11.5-15.0 [facility] Comment on above: Order Comment: Speci men Type: BLOOD SPECIMENOrdering Facility: [facility] Address: [address] [place] [address] Performed By: #### 5 8410-2 ####[facility]ORYCLIA [id number] [address] [place] Hematocrit (Bld) [Volume fraction] 36.1 % Normal 36.0-46.0 [facility] Comment on above: Order Comment: Speci men Type: BLOOD SPECIMENOrdering Facility: [facility] Address: [address] [place] [address] Performed By: #### 5 8410-2 ####[facility]CLIA [id number] [address] [place] Hemoglobin (Bld) [Mass/Vol] 11.8 g/dL Normal 11.5-15.5 [facility] Comment on above: Order Comment: Speci men Type: BLOOD SPECIMENOrdering Facility: [facility] Address: [address] [place] [address] Performed By: #### 5 8410-2 ####[facility]ORYCLIA [id number] [address] MCH (RBC) [Entitic mass] 29.8 pg Normal 26.0-34.0 [facility] Comment on above: Order Comment: Speci men Type: BLOOD SPECIMENOrdering Facility: [facility] Address: [address] [place] [address] Performed By: #### 5 8410-2 ####[facility]ORYCLIA [id number] [address] [place] MCHC (RBC) [Mass/Vol] 32.7 g/dL Normal 30.5-36.0 [facility] Comment on above: Order Comment: Speci men Type: BLOOD SPECIMENOrdering Facility: [facility] Address: [address] [place] [address] Performed By: #### 5 8410-2 ####[facility]ORYCLIA [id number] [address] MCV (RBC) [Entitic vol] 91.2 fL Normal 80.0-100.0 [facility] Comment on above: Order Comment: Speci men Type: BLOOD SPECIMENOrdering Facility: [facility] Address: [address] [place] [address] Performed By: #### 5 8410-2 ####[facility]ORYCLIA [id number] [address] Nucleated RBC (Bld) [#/Vol] 10*3/uL Normal <0.01 [facility] Comment on above: Order Comment: Speci men Type: BLOOD SPECIMENOrdering Facility: [facility] Address: [address] [place] [address] Performed By: #### 5 8410-2 ####[facility]ORYCLIA [id number] [address] Platelet mean volume (Bld) [Entitic vol] 10.2 fL Normal 9.0-12.7 [facility] Comment on above: Order Comment: Speci men Type: BLOOD SPECIMENOrdering Facility: [facility] Address: [address] [place] [address] Performed By: #### 5 8410-2 ####[facility]ORYCLIA [id number] [address] Platelets (Bld) [#/Vol] 316 10*3/uL Normal 150-400 [facility] Comment on above: Order Comment: Speci men Type: BLOOD SPECIMENOrdering Facility: [facility] Address: [address] [place] [address] Performed By: #### 5 8410-2 ####[facility]ORYCLIA [id number] [address] [place] RBC (Bld) [#/Vol] 3.96 10*6/uL Normal 3.90-5.20 [facility] Comment on above: Order Comment: Speci men Type: BLOOD SPECIMENOrdering Facility: [facility] Address: [address] [place] [address] Performed By: #### 5 8410-2 ####[facility]ORYCLIA [id number] [address] WBC (Bld) [#/Vol] 6.09 10*3/uL Normal 3.70-11.00 [facility] Comment on above: Order Comment: Speci men Type: BLOOD SPECIMENOrdering Facility: [facility] Address: [address] [place] [address] Performed By: #### 5 8410-2 ####[facility]ATORYCLIA [id number] [address] [place] CBC W Auto Differential pane l (Bld)on 04-04-2022 Abs Immature Gran <0.10 k/uL [facility] Basophils (Bld) [#/Vol] 0.03 10*3/uL <0.11 k/uL [facility] Basophils/100 WBC (Bld) 0.5 % C [facility] Differential cell count method Nom (Bld) Auto [facility] Eosinophils (Bld) [#/Vol] 0.16 10*3/uL <0.46 k/uL [facility] Eosinophils/100 WBC (Bld) 2.8 % [facility] Erythrocyte distribution width (RBC) [Ratio] 16.1 % High 11.5 - 15.0 % [facility] Hematocrit (Bld) [Volume fraction] 38.0 % 36.0 - 46.0 % [facility] Hemoglobin (Bld) [Mass/Vol] 11.9 g/dL 11.5 - 15.5 g/dL [facility] Immature Gran % 0.4 % [facility] Lymphocytes (Bld) [#/Vol] 1.48 10*3/uL 1.00 - 4.00 k/uL [facility] Lymphocytes/100 WBC (Bld) 26.2 % [facility] MCH (RBC) [Entitic mass] 29.3 pg 26.0 - 34.0 pg [facility] MCHC (RBC) [Mass/Vol] 31.3 g/dL 30.5 - 36.0 g/dL [facility] MCV (RBC) [Entitic vol] 93.6 fL 80.0 - 100.0 fL [facility] Monocytes (Bld) [#/Vol] 0.50 10*3/uL <0.87 k/uL [facility] Monocytes/100 WBC (Bld) 8.9 % C [facility] Neutrophils (Bld) [#/Vol] 3.45 10*3/uL 1.45 - 7.50 k/uL [facility] Neutrophils/100 WBC (Bld) 61.2 % [facility] Nucleated RBC (Bld) [#/Vol] <0.01 k/uL [facility] Nucleated RBC/100 WBC (Bld) [Ratio] 0.0 /100 WBC [facility] Platelet mean volume (Bld) [Entitic vol] 10.2 fL 9.0 - 12.7 fL [facility] Platelets (Bld) [#/Vol] 287 10*3/uL 150 - 400 k/uL [facility] RBC (Bld) [#/Vol] 4.06 10*6/uL 3.90 - 5.2 0 m/uL [facility] WBC (Bld) [#/Vol] 5.64 10*3/uL 3.70 - 11.00 k/uL [facility] Basophils (Bld) [#/Vol] 0.03 10*3/uL Normal <0.11 [facility] Comment on above: Order Comment: Speci men Type: BLOOD SPECIMEN Ordering Facility: [facility] Address: [address] [place] [address] Performed By: #### 5 7021-8 #### [facility] CLIA [id number] [address] OF [facility] Basophils/100 WBC (Bld) 0.5 % Normal [facility] Comment on above: Order Comment: Speci men Type: BLOOD SPECIMEN Ordering Facility: [facility] Address: [address] [place] [address] Performed By: #### 5 7021-8 #### [facility] CLIA [id number] [address] [place] Differential cell count method Nom (Bld) Auto Normal [facility] Comment on above: Order Comment: Speci men Type: BLOOD SPECIMEN Ordering Facility: [facility] Address: [address] [place] [address] Performed By: #### 5 7021-8 #### [facility] CLIA [id number] 1000 [place] [address] [place] Eosinophils (Bld) [#/Vol] 0.16 10*3/uL Normal <0.46 [facility] Comment on above: Order Comment: Speci men Type: BLOOD SPECIMEN Ordering Facility: [facility] Address: [address] [place] [address] Performed By: #### 5 7021-8 #### [facility] CLIA [id number] [address] [place] Eosinophils/100 WBC (Bld) 2.8 % Normal [facility] Comment on above: Order Comment: Speci men Type: BLOOD SPECIMEN Ordering Facility: [facility] Address: [address] [place] [address] Performed By: #### 5 7021-8 #### [facility] CLIA [id number] [address] [place] [address] [place] Erythrocyte distribution width (RBC) [Ratio] 16.1 % High 11.5-15.0 [facility] Comment on above: Order Comment: Speci men Type: BLOOD SPECIMEN Ordering Facility: [facility] Address: [address] [place] [address] Performed By: #### 5 7021-8 #### [facility] CLIA [id number] [address] Hematocrit (Bld) [Volume fraction] 38.0 % Normal 36.0-46.0 [facility] Comment on above: Order Comment: Speci men Type: BLOOD SPECIMEN Ordering Facility: [facility] Address: [address] [place] [address] Performed By: #### 5 7021-8 #### [facility] CLIA [id number] [address] [place] Hemoglobin (Bld) [Mass/Vol] 11.9 g/dL Normal 11.5-15.5 [facility] Comment on above: Order Comment: Speci men Type: BLOOD SPECIMEN Ordering Facility: [facility] Address: [address] [place] [address] Performed By: #### 5 7021-8 #### [facility] CLIA [id number] [address] IMMATURE GRAN % 0.4 % Normal [facility] Comment on above: Order Comment: Speci men Type: BLOOD SPECIMEN Ordering Facility: [facility] Address: [address] [place] [address] Performed By: #### 5 7021-8 #### [facility] CLIA [id number] [address] OF [facility] IMMATURE GRAN ABS <0.03 Normal <0.10 [facility] Comment on above: Order Comment: Speci men Type: BLOOD SPECIMEN Ordering Facility: [facility] Address: [address] [place] [address] Performed By: #### 5 7021-8 #### [facility] CLIA [id number] [address] [place] Lymphocytes (Bld) [#/Vol] 1.48 10*3/uL Normal 1.00-4.00 [facility] Comment on above: Order Comment: Speci men Type: BLOOD SPECIMEN Ordering Facility: [facility] Address: [address] [place] [address] Performed By: #### 5 7021-8 #### [facility] CLIA [id number] [address] [place] Lymphocytes/100 WBC (Bld) 26.2 % Normal [facility] Comment on above: Order Comment: Speci men Type: BLOOD SPECIMEN Ordering Facility: [facility] Address: [address] [place] [address] Performed By: #### 5 7021-8 #### [facility] CLIA [id number] [address] [place] [address] [place] MCH (RBC) [Entitic mass] 29.3 pg Normal 26.0-34.0 [facility] Comment on above: Order Comment: Speci men Type: BLOOD SPECIMEN Ordering Facility: [facility] Address: [address] [place] [address] Performed By: #### 5 7021-8 #### [facility] CLIA [id number] [address] [place] [address] [place] MCHC (RBC) [Mass/Vol] 31.3 g/dL Normal 30.5-36.0 [facility] Comment on above: Order Comment: Speci men Type: BLOOD SPECIMEN Ordering Facility: [facility] Address: [address] [place] [address] Performed By: #### 5 7021-8 #### [facility] CLIA [id number] [address] [place] [address] [place] MCV (RBC) [Entitic vol] 93.6 fL Normal 80.0-100.0 [facility] Comment on above: Order Comment: Speci men Type: BLOOD SPECIMEN Ordering Facility: [facility] Address: [address] [place] [address] Performed By: #### 5 7021-8 #### [facility] CLIA [id number] [address] [place] [address] [place] [facility] [place] Monocytes (Bld) [#/Vol] 0.50 10*3/uL Normal <0.87 [facility] Comment on above: Order Comment: Speci men Type: BLOOD SPECIMEN Ordering Facility: [facility] Address: [address] [place] [address] Performed By: #### 5 7021-8 #### [facility] CLIA [id number] [address] [place] Monocytes/100 WBC (Bld) 8.9 % Normal [facility] Comment on above: Order Comment: Speci men Type: BLOOD SPECIMEN Ordering Facility: [facility] Address: [address] [place] [address] Performed By: #### 5 7021-8 #### [facility] CLIA [id number] [address] [place] [address] [place] Neutrophils (Bld) [#/Vol] 3.45 10*3/uL Normal 1.45-7.50 [facility] Comment on above: Order Comment: Speci men Type: BLOOD SPECIMEN Ordering Facility: [facility] Address: [address] [place] [address] Performed By: #### 5 7021-8 #### [facility] CLIA [id number] [address] [place] Neutrophils/100 WBC (Bld) 61.2 % Normal [facility] Comment on above: Order Comment: Speci men Type: BLOOD SPECIMEN Ordering Facility: [facility] Address: [address] [place] [address] Performed By: #### 5 7021-8 #### [facility] CLIA [id number] [address] [place] [address] [place] Nucleated RBC (Bld) [#/Vol] 10*3/uL Normal <0.01 [facility] Comment on above: Order Comment: Speci men Type: BLOOD SPECIMEN Ordering Facility: [facility] Address: [address] [place] [address] Performed By: #### 5 7021-8 #### [facility] CLIA [id number] [address] [place] Nucleated RBC/100 WBC (Bld) [Ratio] 0.0 /100 WBC Normal [facility] Comment on above: Order Comment: Speci men Type: BLOOD SPECIMEN Ordering Facility: [facility] Address: [address] [place] [address] Performed By: #### 5 7021-8 #### [facility] CLIA [id number] [address] [place] [address] [place] Platelet mean volume (Bld) [Entitic vol] 10.2 fL Normal 9.0-12.7 [facility] Comment on above: Order Comment: Speci men Type: BLOOD SPECIMEN Ordering Facility: [facility] Address: [address] [place] [address] Performed By: #### 5 7021-8 #### [facility] CLIA [id number] [address] [place] [address] [place] Platelets (Bld) [#/Vol] 287 10*3/uL Normal 150-400 [facility] Comment on above: Order Comment: Speci men Type: BLOOD SPECIMEN Ordering Facility: [facility] Address: [address] [place] [address] Performed By: #### 5 7021-8 #### [facility] CLIA [id number] [address] [place] [address] [place] RBC (Bld) [#/Vol] 4.06 10*6/uL Normal 3.90-5.[address] [facility] Comment on above: Order Comment: Speci men Type: BLOOD SPECIMEN Ordering Facility: [facility] Address: [address] [place] [address] Performed By: #### 5 7021-8 #### [facility] CLIA [id number] [address] [place] [address] [place] WBC (Bld) [#/Vol] 5.64 10*3/uL Normal 3.70-11.[address] [facility] Comment on above: Order Comment: Speci men Type: BLOOD SPECIMEN Ordering Facility: [facility] Address: [address] [place] [address] Performed By: #### 5 7021-8 #### [facility] CLIA [id number] [address] [place], [place] [address] [place] [address] OF [facility] Comprehensive metabolic 2000 panelon 04-04-2022 Albumin [Mass/Vol] 3.7 g/dL Low 3.9 - 4.9 g/dL [facility] ALP [Catalytic activity/Vol] 72 U/L 34 - 123 U/L [facility] ALT [Catalytic activity/Vol] 15 U/L 7 - 38 U/L [facility] Anion gap [Moles/Vol] 9 mmol/L 9 - 18 mmol/L [facility] AST [Catalytic activity/Vol] 25 U/L 13 - 35 U/L [facility] Bilirubin [Mass/Vol] 0.6 mg/dL 0.2 - 1 .3 mg/dL [facility] Calcium [Mass/Vol] 9.4 mg/dL 8.5 - 10. 2 mg/dL [facility] Chloride [Moles/Vol] 99 mmol/L 97 - 10 5 mmol/L [facility] CO2 [Moles/Vol] 32 mmol/L High 22 - 30 mmol/L [facility] Creatinine [Mass/Vol] 0.78 mg/dL 0.58 - 0.96 mg/dL [facility] Estimated Glomerular Filtration Rate 90 mL/min/1.73m >=60 mL/min/1.73 m [facility] Glucose [Mass/Vol] 128 mg/dL High 74 - 99 mg/dL [facility] Potassium [Moles/Vol] 4.3 mmol/L 3.7 - 5.1 mmol/L [facility] Protein [Mass/Vol] 6.7 g/dL 6.3 - 8.0 g/dL [facility] Sodium [Moles/Vol] 140 mmol/L 136 - 144 mmol/L [facility] Urea nitrogen [Mass/Vol] 11 mg/dL 7 - 21 mg/dL [facility] Albumin [Mass/Vol] 3.7 g/dL Low 3.9-4.9 [facility] Comment on above: Order Comment: Speci men Type: BLOOD SPECIMEN Ordering Facility: [facility] Mariama Kerr Address: [address] [place] [address] Performed By: #### 2 4323-8 #### [facility] CLIA [id number] [address] [place] [address] [place] ALP [Catalytic activity/Vol] 72 U/L Normal 34-123 [facility] Comment on above: Order Comment: Speci men Type: BLOOD SPECIMEN Ordering Facility: [facility] Address: [address] [place] [address] Performed By: #### 2 4323-8 #### [facility] CLIA [id number] [address] [place] [address] [place] ALT [Catalytic activity/Vol] 15 U/L Normal 7-38 [facility] Comment on above: Order Comment: Speci men Type: BLOOD SPECIMEN Ordering Facility: [facility] Address: [address] [place] [address] Performed By: #### 2 4323-8 #### [facility] CLIA [id number] [address] [place] [address] [place] Anion gap [Moles/Vol] 9 mmol/L Normal 9-18 [facility] Comment on above: Order Comment: Speci men Type: BLOOD SPECIMEN Ordering Facility: [facility] Address: [address] [place] [address] Performed By: #### 2 4323-8 #### [facility] CLIA [id number] [address] [place] [address] [place] AST [Catalytic activity/Vol] 25 U/L Normal 13-35 [facility] Comment on above: Order Comment: Speci men Type: BLOOD SPECIMEN Ordering Facility: [facility] Address: [address] [place] [address] Performed By: #### 2 4323-8 #### [facility] CLIA [id number] [address] [place] [address] [place] Bilirubin [Mass/Vol] 0.6 mg/dL Normal 0.2-1.3 [facility] Comment on above: Order Comment: Speci men Type: BLOOD SPECIMEN Ordering Facility: [facility] Address: [address] [place] [address] Performed By: #### 2 4323-8 #### [facility] CLIA [id number] [address] [place] [address] [place] Calcium [Mass/Vol] 9.4 mg/dL Normal 8.5-10.2 [facility] Comment on above: Order Comment: Speci men Type: BLOOD SPECIMEN Ordering Facility: [facility] Address: [address] [place] [address] Performed By: #### 2 4323-8 #### [facility] CLIA [id number] [address] [place] [address] [place] Chloride [Moles/Vol] 99 mmol/L Normal 97-105 [facility] Comment on above: Order Comment: Speci men Type: BLOOD SPECIMEN Ordering Facility: [facility] Address: [address] [place] [address] Performed By: #### 2 4323-8 #### [facility] CLIA [id number] [address] [place] [address] [place] CO2 [Moles/Vol] 32 mmol/L High 22-30 [facility] Comment on above: Order Comment: Speci men Type: BLOOD SPECIMEN Ordering Facility: [facility] Address: [address] [place] [address] Performed By: #### 2 4323-8 #### [facility] CLIA [id number] [address] [place] [address] [place] Creatinine [Mass/Vol] 0.78 mg/dL Normal 0.58-0.96 [facility] Comment on above: Order Comment: Speci men Type: BLOOD SPECIMEN Ordering Facility: [facility] Address: [address] [place] [address] Performed By: #### 2 4323-8 #### [facility] CLIA [id number] [address] [place] [address] [place] ESTIMATED GLOMERULAR FILTRATION RATE 90 mL/min/1.73m??? Normal >=60 [facility] Comment on above: Order Comment: Speci men Type: BLOOD SPECIMEN Ordering Facility: [facility] Address: [address] [place] [address] Result Comment: Cecille mated Glomerular Filtration Rate (eGFR) is calculated using the 2020 CKD-EPI creatinine equation. This equation utilizes serum creatinine, sex, and age as parameters. The creatinine assay has traceable calibration to isotope dilution-mass spectrometry. Refer to KDIGO guidelines for clinical interpretation. In patients with unstable renal function, e.g. those with acute kidney injury, the eGFR may not accurately reflect actual GFR. Performed By: #### 2 4323-8 #### [facility] CLIA [id number] [address] [place] [address] [place] Glucose [Mass/Vol] 128 mg/dL High 74-99 [facility] Comment on above: Order Comment: Speci men Type: BLOOD SPECIMEN Ordering Facility: [facility] Address: [address] [place] [address] Result Comment: The [place] [employer] (ADA) provides guidance for cutoff values for fasting glucose and random glucose. The ADA defines fasting as no caloric intake for at least 8 hours. Fasting plasma glucose results between 100 to 125 mg/dL indicate increased risk for diabetes (prediabetes). Fasting plasma glucose results greater than or equal to 126 mg/dL meet the criteria for diagnosis of diabetes. In the absence of unequivocal hyperglycemia, results should be confirmed by repeat testing. In a patient with classic symptoms of hyperglycemia or hyperglycemic crisis, random plasma glucose results greater than or equal to 200 mg/dL meet the criteria for diagnosis of diabetes. Reference: Standards of Medical Care in Diabetes 2016, [place] [employer]. Diabetes Care. 2016.39(Suppl 1). Performed By: #### 2 4323-8 #### [facility] CLIA [id number] [address] [place] [address] [place] Potassium [Moles/Vol] 4.3 mmol/L Normal 3.7-5.1 [facility] Comment on above: Order Comment: Speci men Type: BLOOD SPECIMEN Ordering Facility: [facility] Address: [address] [place] [address] Performed By: #### 2 4323-8 #### [facility] CLIA [id number] [address] [place] [id number] [place] Protein [Mass/Vol] 6.7 g/dL Normal 6.3-8.0 [facility] Comment on above: Order Comment: Speci men Type: BLOOD SPECIMEN Ordering Facility: [facility] Address: [address] [place] [address] Performed By: #### 2 4323-8 #### [facility] CLIA [id number] [address] Sodium [Moles/Vol] 140 mmol/L Normal 136-144 [facility] Comment on above: Order Comment: Speci men Type: BLOOD SPECIMEN Ordering Facility: [facility] Address: [address] [place] [address] Performed By: #### 2 4323-8 #### [facility] CLIA [id number] [address] Urea nitrogen [Mass/Vol] 11 mg/dL Normal 7-21 [facility] Comment on above: Order Comment: Speci men Type: BLOOD SPECIMEN Ordering Facility: [facility] Address: [address] [place] [address] Performed By: #### 2 4323-8 #### [facility] CLIA [id number] [address] [place] CBC W Auto Differential pane l (Bld)on 04-01-2022 Abs Immature Gran <0.10 k/uL [facility] Basophils (Bld) [#/Vol] <0.11 k/uL [facility] Basophils/100 WBC (Bld) 0.4 % [facility] Differential cell count method Nom (Bld) Auto [facility] Eosinophils (Bld) [#/Vol] 0.15 10*3/uL <0.46 k/uL [facility] Eosinophils/100 WBC (Bld) 2.7 % [facility] Erythrocyte distribution width (RBC) [Ratio] 15.9 % High 11.5 - 15.0 % [facility] Hematocrit (Bld) [Volume fraction] 37.4 % 36.0 - 46.0 % [facility] Hemoglobin (Bld) [Mass/Vol] 12.1 g/dL 11.5 - 15.5 g/dL [facility] Immature Gran % 0.4 % [facility] Lymphocytes (Bld) [#/Vol] 1.36 10*3/uL 1.00 - 4.00 k/uL [facility] Lymphocytes/100 WBC (Bld) 24.2 % [facility] MCH (RBC) [Entitic mass] 29.7 pg 26.0 - 34.0 pg [facility] MCHC (RBC) [Mass/Vol] 32.4 g/dL 30.5 - 36.0 g/dL [facility] MCV (RBC) [Entitic vol] 91.7 fL 80.0 - 100.0 fL [facility] Monocytes (Bld) [#/Vol] 0.37 10*3/uL <0.87 k/uL [facility] Monocytes/100 WBC (Bld) 6.6 % [facility] Neutrophils (Bld) [#/Vol] 3.71 10*3/uL 1.45 - 7.50 k/uL [facility] Neutrophils/100 WBC (Bld) 65.7 % [facility] Nucleated RBC (Bld) [#/Vol] <0.01 k/uL [facility] Nucleated RBC/100 WBC (Bld) [Ratio] 0.0 /100 WBC [facility] Platelet mean volume (Bld) [Entitic vol] 10.1 fL 9.0 - 12.7 fL [facility] Platelets (Bld) [#/Vol] 239 10*3/uL 150 - 400 k/uL [facility] RBC (Bld) [#/Vol] 4.08 10*6/uL 3.90 - 5.2 0 m/uL [facility] WBC (Bld) [#/Vol] 5.63 10*3/uL 3.70 - 11.00 k/uL [facility] Basophils (Bld) [#/Vol] 10*3/uL Normal <0.11 [facility] Comment on above: Order Comment: Speci men Type: BLOOD SPECIMEN Ordering Facility: [facility] Address: [address] [place] [address] Performed By: #### 5 7021-8 #### [facility] CLIA [id number] [address] [place] [address] [place] Basophils/100 WBC (Bld) 0.4 % Normal [facility] Comment on above: Order Comment: Speci men Type: BLOOD SPECIMEN Ordering Facility: [facility] Address: [address] [place] [address] Performed By: #### 5 7021-8 #### [facility] CLIA [id number] [address] [place] Differential cell count method Nom (Bld) Auto Normal [facility] Comment on above: Order Comment: Speci men Type: BLOOD SPECIMEN Ordering Facility: [facility] Address: [address] [place] [address] Performed By: #### 5 7021-8 #### [facility] CLIA [id number] [address] [place] [address] [place] Eosinophils (Bld) [#/Vol] 0.15 10*3/uL Normal <0.46 [facility] Comment on above: Order Comment: Speci men Type: BLOOD SPECIMEN Ordering Facility: [facility] Address: [address] [place] [address] Performed By: #### 5 7021-8 #### [facility] CLIA [id number] [address] [place] [address] [place] Eosinophils/100 WBC (Bld) 2.7 % Normal [facility] Comment on above: Order Comment: Speci men Type: BLOOD SPECIMEN Ordering Facility: [facility] Address: [address] [place] [address] Performed By: #### 5 7021-8 #### [facility] CLIA [id number] [address] [place] Erythrocyte distribution width (RBC) [Ratio] 15.9 % High 11.5-15.0 [facility] Comment on above: Order Comment: Speci men Type: BLOOD SPECIMEN Ordering Facility: [facility] Address: [address] [place] [address] Performed By: #### 5 7021-8 #### [facility] CLIA [id number] [address] [place] Hematocrit (Bld) [Volume fraction] 37.4 % Normal 36.0-46.0 [facility] Comment on above: Order Comment: Speci men Type: BLOOD SPECIMEN Ordering Facility: [facility] Address: [address] [place] [address] Performed By: #### 5 7021-8 #### [facility] CLIA [id number] [address] [place] Hemoglobin (Bld) [Mass/Vol] 12.1 g/dL Normal 11.5-15.5 [facility] Comment on above: Order Comment: Speci men Type: BLOOD SPECIMEN Ordering Facility: [facility] Address: [address] [place] [address] Performed By: #### 5 7021-8 #### [facility] CLIA [id number] [address] [place] IMMATURE GRAN % 0.4 % Normal [facility] Comment on above: Order Comment: Speci men Type: BLOOD SPECIMEN Ordering Facility: [facility] Address: [address] [place] [address] Performed By: #### 5 7021-8 #### [facility] CLIA [id number] [address] [place] IMMATURE GRAN ABS <0.03 Normal <0.10 [facility] Comment on above: Order Comment: Speci men Type: BLOOD SPECIMEN Ordering Facility: [facility] Address: [address] [place] [address] Performed By: #### 5 7021-8 #### [facility] CLIA [id number] [address] [place] [address] [place] Lymphocytes (Bld) [#/Vol] 1.36 10*3/uL Normal 1.00-4.00 [facility] Comment on above: Order Comment: Speci men Type: BLOOD SPECIMEN Ordering Facility: [facility] Address: [address] [place] [address] Performed By: #### 5 7021-8 #### [facility] CLIA [id number] [address] [place] Lymphocytes/100 WBC (Bld) 24.2 % Normal [facility] Comment on above: Order Comment: Speci men Type: BLOOD SPECIMEN Ordering Facility: [facility] Address: [address] [place] [address] Performed By: #### 5 7021-8 #### [facility] CLIA [id number] [address] MCH (RBC) [Entitic mass] 29.7 pg Normal 26.0-34.0 [facility] Comment on above: Order Comment: Speci men Type: BLOOD SPECIMEN Ordering Facility: [facility] Address: [address] [place] [address] Performed By: #### 5 7021-8 #### [facility] CLIA [id number] [address] [place] [address] [place] MCHC (RBC) [Mass/Vol] 32.4 g/dL Normal 30.5-36.0 [facility] Comment on above: Order Comment: Speci men Type: BLOOD SPECIMEN Ordering Facility: [facility] Address: [address] [place] [address] Performed By: #### 5 7021-8 #### [facility] CLIA [id number] [address] [place] MCV (RBC) [Entitic vol] 91.7 fL Normal 80.0-100.0 [facility] Comment on above: Order Comment: Speci men Type: BLOOD SPECIMEN Ordering Facility: [facility] Address: [address] [place] [address] Performed By: #### 5 7021-8 #### [facility] CLIA [id number] [address] [place] [address] [place] Monocytes (Bld) [#/Vol] 0.37 10*3/uL Normal <0.87 [facility] Comment on above: Order Comment: Speci men Type: BLOOD SPECIMEN Ordering Facility: [facility] Address: [address] [place] [address] Performed By: #### 5 7021-8 #### [facility] CLIA [id number] [address] [place] Monocytes/100 WBC (Bld) 6.6 % Normal [facility] Comment on above: Order Comment: Speci men Type: BLOOD SPECIMEN Ordering Facility: [facility] Address: [address] [place] [address] Performed By: #### 5 7021-8 #### [facility] CLIA [id number] [address] [place] [address] [place] Neutrophils (Bld) [#/Vol] 3.71 10*3/uL Normal 1.45-7.50 [facility] Comment on above: Order Comment: Speci men Type: BLOOD SPECIMEN Ordering Facility: [facility] Address: [address] [place] [address] Performed By: #### 5 7021-8 #### [facility] CLIA [id number] [address] [place] [address] [place] Neutrophils/100 WBC (Bld) 65.7 % Normal [facility] Comment on above: Order Comment: Speci men Type: BLOOD SPECIMEN Ordering Facility: [facility] Address: [address] [place] [address] Performed By: #### 5 7021-8 #### [facility] CLIA [id number] [address] [place] [address] [place] Nucleated RBC (Bld) [#/Vol] 10*3/uL Normal <0.01 [facility] Comment on above: Order Comment: Speci men Type: BLOOD SPECIMEN Ordering Facility: [facility] Address: [address] [place] [address] Performed By: #### 5 7021-8 #### [facility] CLIA [id number] [address] [place] [address] [place] Nucleated RBC/100 WBC (Bld) [Ratio] 0.0 /100 WBC Normal [facility] Comment on above: Order Comment: Speci men Type: BLOOD SPECIMEN Ordering Facility: [facility] Address: [address] [place] [address] Performed By: #### 5 7021-8 #### [facility] CLIA [id number] [address] [place] [address] [place] Platelet mean volume (Bld) [Entitic vol] 10.1 fL Normal 9.0-12.7 [facility] Comment on above: Order Comment: Speci men Type: BLOOD SPECIMEN Ordering Facility: [facility] Address: [address] [place] [address] Performed By: #### 5 7021-8 #### [facility] CLIA [id number] [address] [place] [address] [place] Platelets (Bld) [#/Vol] 239 10*3/uL Normal 150-400 [facility] Comment on above: Order Comment: Speci men Type: BLOOD SPECIMEN Ordering Facility: [facility] Address: [address] [place] [address] Performed By: #### 5 7021-8 #### [facility] CLIA [id number] [address] [place] [address] [place] RBC (Bld) [#/Vol] 4.08 10*6/uL Normal 3.90-5.[address] [facility] Comment on above: Order Comment: Speci men Type: BLOOD SPECIMEN Ordering Facility: [facility] Address: [address] [place] [address] Performed By: #### 5 7021-8 #### [facility] CLIA [id number] [address] [place] [address] [place] WBC (Bld) [#/Vol] 5.63 10*3/uL Normal 3.70-11.[address] [facility] Comment on above: Order Comment: Speci men Type: BLOOD SPECIMEN Ordering Facility: [facility] Address: [address] [place] [address] Performed By: #### 5 7021-8 #### [facility] CLIA [id number] [address] [place] [address] [place] Comprehensive metabolic 2000 panelon 04-01-2022 Albumin [Mass/Vol] 3.8 g/dL Low 3.9 - 4.9 g/dL [facility] ALP [Catalytic activity/Vol] 71 U/L 34 - 123 U/L [facility] ALT [Catalytic activity/Vol] 16 U/L 7 - 38 U/L [facility] Anion gap [Moles/Vol] 10 mmol/L 9 - 18 mmol/L [facility] AST [Catalytic activity/Vol] 22 U/L 13 - 35 U/L [facility] Bilirubin [Mass/Vol] 0.6 mg/dL 0.2 - 1 .3 mg/dL [facility] Calcium [Mass/Vol] 9.2 mg/dL 8.5 - 10. 2 mg/dL [facility] Chloride [Moles/Vol] 99 mmol/L 97 - 10 5 mmol/L [facility] CO2 [Moles/Vol] 28 mmol/L 22 - 30 mmol/L [facility] Creatinine [Mass/Vol] 0.62 mg/dL 0.58 - 0.96 mg/dL [facility] Estimated Glomerular Filtration Rate 106 mL/min/1.73m >=60 mL/min/1.73 m [facility] Glucose [Mass/Vol] 121 mg/dL High 74 - 99 mg/dL [facility] Potassium [Moles/Vol] 3.8 mmol/L 3.7 - 5.1 mmol/L [facility] Protein [Mass/Vol] 6.8 g/dL 6.3 - 8.0 g/dL [facility] Sodium [Moles/Vol] 137 mmol/L 136 - 144 mmol/L [facility] Urea nitrogen [Mass/Vol] 13 mg/dL 7 - 21 mg/dL [facility] Albumin [Mass/Vol] 3.8 g/dL Low 3.9-4.9 [facility] Comment on above: Order Comment: Speci sukhdev Type: BLOOD SPECIMEN Ordering Facility: [facility] Address: [address] [place] [address] Performed By: #### 2 4323-8 #### [facility] CLIA [id number] [address] ALP [Catalytic activity/Vol] 71 U/L Normal 34-123 [facility] Comment on above: Order Comment: Tristiani men Type: BLOOD SPECIMEN Ordering Facility: [facility] Address: [address] [place] [address] Performed By: #### 2 4323-8 #### [facility] CLIA [id number] [address] OF [facility] ALT [Catalytic activity/Vol] 16 U/L Normal 7-38 [facility] Comment on above: Order Comment: Speci men Type: BLOOD SPECIMEN Ordering Facility: [facility] Address: [address] [place] [address] Performed By: #### 2 4323-8 #### [facility] CLIA [id number] [address] [place] [address] [place] Anion gap [Moles/Vol] 10 mmol/L Normal 9-18 [facility] Comment on above: Order Comment: Speci men Type: BLOOD SPECIMEN Ordering Facility: [facility] Address: [address] [place] [address] Performed By: #### 2 4323-8 #### [facility] CLIA [id number] 1000 [place] [address] [place] AST [Catalytic activity/Vol] 22 U/L Normal 13-35 [facility] Comment on above: Order Comment: Speci men Type: BLOOD SPECIMEN Ordering Facility: [facility] Address: [address] [place] [address] Performed By: #### 2 4323-8 #### [facility] CLIA [id number] [address] [place] [address] [place] Bilirubin [Mass/Vol] 0.6 mg/dL Normal 0.2-1.3 [facility] Comment on above: Order Comment: Speci men Type: BLOOD SPECIMEN Ordering Facility: [facility] Address: [address] [place] [address] Performed By: #### 2 4323-8 #### [facility] CLIA [id number] [address] [place] [address] [place] Calcium [Mass/Vol] 9.2 mg/dL Normal 8.5-10.2 [facility] Comment on above: Order Comment: Speci men Type: BLOOD SPECIMEN Ordering Facility: [facility] Address: [address] [place] [address] Performed By: #### 2 4323-8 #### [facility] CLIA [id number] [address] [place] [address] [place] Chloride [Moles/Vol] 99 mmol/L Normal 97-105 [facility] Comment on above: Order Comment: Speci men Type: BLOOD SPECIMEN Ordering Facility: [facility] Address: [address] [place] [address] Performed By: #### 2 4323-8 #### [facility] CLIA [id number] [address] [place] [address] [place] CO2 [Moles/Vol] 28 mmol/L Normal 22-30 [facility] Comment on above: Order Comment: Speci men Type: BLOOD SPECIMEN Ordering Facility: [facility] Address: [address] [place] [address] Performed By: #### 2 4323-8 #### [facility] CLIA [id number] [address] [place] [address] [place] Creatinine [Mass/Vol] 0.62 mg/dL Normal 0.58-0.96 [facility] Comment on above: Order Comment: Speci men Type: BLOOD SPECIMEN Ordering Facility: [facility] Address: [address] [place] [address] Performed By: #### 2 4323-8 #### [facility] CLIA [id number] [address] [place] [address] [place] ESTIMATED GLOMERULAR FILTRATION RATE 106 mL/min/1.73m??? Normal >=60 [facility] Comment on above: Order Comment: Speci men Type: BLOOD SPECIMEN Ordering Facility: [facility] Address: [address] [place] [address] Result Comment: Cecille mated Glomerular Filtration Rate (eGFR) is calculated using the 2020 CKD-EPI creatinine equation. This equation utilizes serum creatinine, sex, and age as parameters. The creatinine assay has traceable calibration to isotope dilution-mass spectrometry. Refer to KDIGO guidelines for clinical interpretation. In patients with unstable renal function, e.g. those with acute kidney injury, the eGFR may not accurately reflect actual GFR. Performed By: #### 2 4323-8 #### [facility] CLIA [id number] [address] [place] [address] [place] Glucose [Mass/Vol] 121 mg/dL High 74-99 [facility] Comment on above: Order Comment: Speci men Type: BLOOD SPECIMEN Ordering Facility: [facility] Address: [address] [place] [address] Result Comment: The [place] Diabetes Association (ADA) provides guidance for cutoff values for fasting glucose and random glucose. The ADA defines fasting as no caloric intake for at least 8 hours. Fasting plasma glucose results between 100 to 125 mg/dL indicate increased risk for diabetes (prediabetes). Fasting plasma glucose results greater than or equal to 126 mg/dL meet the criteria for diagnosis of diabetes. In the absence of unequivocal hyperglycemia, results should be confirmed by repeat testing. In a patient with classic symptoms of hyperglycemia or hyperglycemic crisis, random plasma glucose results greater than or equal to 200 mg/dL meet the criteria for diagnosis of diabetes. Reference: Standards of Medical Care in Diabetes 2016, [place] [employer]. Diabetes Care. 2016.39(Suppl 1). Performed By: #### 2 4323-8 #### [facility] CLIA [id number] [address] [place] [address] [place] Potassium [Moles/Vol] 3.8 mmol/L Normal 3.7-5.1 [facility] Comment on above: Order Comment: Tristiani men Type: BLOOD SPECIMEN Ordering Facility: [facility] Address: [address] [place] [address] Performed By: #### 2 4323-8 #### [facility] CLIA [id number] [address] [place] [address] [place] Protein [Mass/Vol] 6.8 g/dL Normal 6.3-8.0 [facility] Comment on above: Order Comment: Speci men Type: BLOOD SPECIMEN Ordering Facility: [facility] Address: [address] [place] [address] Performed By: #### 2 4323-8 #### [facility] CLIA [id number] [address] [place] [address] [place] Sodium [Moles/Vol] 137 mmol/L Normal 136-144 [facility] Comment on above: Order Comment: Speci men Type: BLOOD SPECIMEN Ordering Facility: [facility] Address: [address] [place], [place] [address] Performed By: #### 2 4323-8 #### [facility] CLIA [id number] [address] [place] [address] [place] Urea nitrogen [Mass/Vol] 13 mg/dL Normal 7-21 [facility] Comment on above: Order Comment: Speci sukhdev Type: BLOOD SPECIMEN Ordering Facility: [facility] Address: [address] [place] [address] Performed By: #### 2 4323-8 #### [facility] CLIA [id number] [address] [place] [address] [place] MAGNESIUM BLDon 04-01-2022 Magnesium [Mass/Vol] 1.9 mg/dL 1.7 - 2 .3 mg/dL [facility] Magnesium SerPl-mCncon 04-01 Magnesium [Mass/Vol] 1.9 mg/dL Normal 1.7-2.3 [facility] Comment on above: Order Comment: Speci men Type: BLOOD SPECIMEN Ordering Facility: [facility] Address: [address] [place] [address] Performed By: #### 1 9123-9 #### [facility] CLIA [id number] [address] [place] [address] [place] CASE MANAGEMon 03-29-2022 CASE MANAGEM HNO ID: [id number] Author: Lian Seymour RN Service: ? Author Type: Registered Nurse Type: Care Mgt Progress Note Filed: 03/29/2022 9:38 AM Note Text: CARE MANAGEMENT PROGRESS NOTE SERVICE DATE: 03/29/2022 SERVICE TIME: 9:36 AM LOS: 4 days Admission Date: 03/25/2022 DISCHARGE ARRANGEMENT (list agency and phone number) Discharge Arrangement: Acute Rehabilitation Facility Provider Name: [facility] [phone] CAREGIVER ASSESSMENT: Caregiver is ready, willing and able to meet the patient's needs as recommended by the inter-professional team:: Yes Patient's transition needs and plan for meeting these needs: ESR HANDOFF COMMUNICATION: Handoff to: Primary Care Physician Primary Care Physician Name/Phone: Dr Hicks [phone] TRANSPORTATION ARRANGEMENTS: Transportation Arrangements: Ambulance Transportation Agency and Phone #:: [facility] [phone] Date of Trip: 03/29/22 Time of Trip: 0230 Type of Service: BLS Non-emergency Is Patient Medicaid Pending?: No Was transportation financial coverage discussed with family?: Patient Pulp Operator Location: [place] [facility] ADDITIONAL CONTACT RESOURCES: n/a Discharge Information Row Name Admission (Current) from 03/25/2022 in [facility] Agency [facility] IMM Follow Up Copy Given: Yes Copy given to:: Patient Method: In Person Discharge orders written for pt to d/c to [facility], transport set up for 2:30 pickle solution maker via MMT. Pt in agreement with plan. Envelope on chart, RN to call report. SIGNATURE: Lian Seymour RN PATIENT NAME: Bradley Matos DATE: March 29, 2022 TIME: 9:36 AM PAGER/CONTACT #: [phone] [facility] HNO ID: [id number] Author: Stephen Guy MD Service: Hospital Medicine Author Type: Physician Type: Discharge Summary Filed: 03/29/2022 8:56 AM Note Text: DISCHARGE SUMMARY PATIENT NAME: Bradley Matos Code Status: Not on file Highest Readmission Risk Score: 22 The 30 day readmissions risk score is derived from an internally validated risk model which evaluates patient level characteristics, utilization history, medication orders and lab results up until the day of discharge. Patients with a score of 40 or above are considered highest risk for readmission. Specific patient level drivers will be listed at the bottom of the summary. Admission Information Admission Information ADMIT DATE: 03/25/2022 DISCHARGE DATE: 03/29/22 MY DOCTORS AND MEDICAL TEAM: My Main Hospital Doctor: Stephen Guy MD Primary Care Provider: Didier Hicks MD My Medical Team Members: Treatment Team: Attending Provider: Stephen Guy MD Consulting: Emeterio Staton MD Consulting: Kurt Evans MD Consulting: Michael Hewitt MD MY CONDITION AT DISCHARGE: Stable REASON I WAS IN THE HOSPITAL: Worsening left-sided weakness. SUMMARY OF WHAT HAPPENED WHILE I WAS IN THE HOSPITAL: You presented to [facility] with worsening left-sided weakness from nursing facility. You had CT brain, CT neck which showed no acute changes, CT neck did show evidence of chronic cervical stenosis.MRI of the brain was poor quality due to motion artifact. MRI showed possible extension of new stroke, you were continued on your plavix and statin from your previous stroke. You should follow up with neurology as outpatient. OTHER PROBLEMS/DIAGNOSIS: Principal Problem: Left-sided weakness Active Problems: Ulcerative colitis, chronic (HCC) Morbid obesity (HCC) Recent cerebrovascular accident (CVA) COVID-19 GERD (gastroesophageal reflux disease) Essential hypertension Hyperlipidemia Elevated glucose Stroke-like symptoms COVID Resolved Problems: * No resolved hospital problems. * OPERATIONS PERFORMED WHILE IN THE HOSPITAL: None IMPORTANT TEST/PROCEDURES: No procedures performed TEST RESULTS NOT AVAILABLE AT THIS TIME: No pending results Discharge Disposition Discharge Disposition: Inpatient Rehab Follow Up Appointments Follow-Up Appointment When: In 1 week Didier Hicks [phone] [place] [address] PCP Requested Referral Additional Provider to Provider Information: Bradley Matos is a 56 year old female presented with past medical history of?anxiety, HTN, fatigue, UC, morbid obesity, PTSD, GERD, HLD?presented on 03/25 with?weakness on left side symptoms began 02/28 are constant in nature and now newly associated w/ numbness and tingling to left face, LUE, LLE, nausea, headache, neck pain, upper mid back pain and left shoulder pain. She states that symptoms?initially?francia richardson 02/28 evaluated at [facility]?for slurred speech subsequently?was transferred to [facility]?and was diagnosed with an acute stroke, patient unable to state location. During the course of hospitalization she notes that she was COIVD + and was transferred to the rehab facility, w/residual left sided weakness, however she left A on 03/08. She has not yet had neurology follow-up. She returned home but [facility] not feeling [facility] (+), she was treated?w/ 5 days of dex (5 days at discharge), and remdesivir d/t [place] oxygen requirement?and discharged to rehab?at?[facility]. ?She notes that she was dong well at the rehab facility and was able to ambulate independently with assistive devices to the bathroom. However on 03/20 while ambulating back to bed from the bathroom she experienced weakness to her Left side and was unable to hold her weight and fell to the floor. ?She denies any LOC or hitting her head at the time of the fall. She states since the fall the weakness has become so much?that she is now unable to overcome gravity to her left side and endorses numbness and tingling to the LUE/LLE which began on Friday.She also c/o left hip pain from the fall. Admitted to medicine w/neurology consult.?? ?MRI/MRA brain done 03/26 was limited due to significant motion artifact however showed acute infarction in the right kee radiata Echo 03/26 showed EF of 57% with no PFO. She is being continued on her plavix and statin. On review of records she has a history of recurrent diverticular bleed for which she underwent sigmoid resection in 2016. She has history GI bleed with last EGD in 2015 showing non bleeding ulcer. She was advised to not use any NSAIDS and her dose of rabeprazole is being changed to daily. Active Hospital Problems as of 03/29/2022 Noted - Resolved [facility] Ulcerative colitis, chronic (HCC) 01/12/2016 - Present Yes Morbid obes (more content not included)... Normal [facility] CBC panel Auto (Bld)on 03-28 Erythrocyte distribution width (RBC) [Ratio] 15.6 % High 11.5-15.0 [facility] Comment on above: Order Comment: Susie santizo Type: BLOOD SPECIMENOrdering Facility: [facility] Address: [address] [place] [address] Performed By: #### 5 8410-2 ####[facility] [id number] [place] [address] [place] Hematocrit (Bld) [Volume fraction] 36.9 % Normal 36.0-46.0 [facility] Comment on above: Order Comment: Susie santizo Type: BLOOD SPECIMENOrdering Facility: [facility] Address: [address] [place] [address] Performed By: #### 5 8410-2 ####[facility] [id number] [address] Hemoglobin (Bld) [Mass/Vol] 11.9 g/dL Normal 11.5-15.5 [facility] Comment on above: Order Comment: Speci men Type: BLOOD SPECIMENOrdering Facility: [facility] Address: [address] [place] [address] Performed By: #### 5 8410-2 ####[facility] [id number] [address] [place] MCH (RBC) [Entitic mass] 29.4 pg Normal 26.0-34.0 [facility] Comment on above: Order Comment: Speci men Type: BLOOD SPECIMENOrdering Facility: [facility] Address: [address] [place] [address] Performed By: #### 5 8410-2 ####[facility] [id number] [address] MCHC (RBC) [Mass/Vol] 32.2 g/dL Normal 30.5-36.0 [facility] Comment on above: Order Comment: Speci men Type: BLOOD SPECIMENOrdering Facility: [facility] Address: [address] [place] [address] Performed By: #### 5 8410-2 ####[facility] [id number] [address] MCV (RBC) [Entitic vol] 91.1 fL Normal 80.0-100.0 [facility] Comment on above: Order Comment: Speci men Type: BLOOD SPECIMENOrdering Facility: [facility] Address: [address] [place] [address] Performed By: #### 5 8410-2 ####[facility] [id number] [address] Nucleated RBC (Bld) [#/Vol] 10*3/uL Normal <0.01 [facility] Comment on above: Order Comment: Speci men Type: BLOOD SPECIMENOrdering Facility: [facility] Address: [address] [place] [place] [address] Performed By: #### 5 8410-2 ####[facility] [id number] [address] [place] Platelet mean volume (Bld) [Entitic vol] 10.1 fL Normal 9.0-12.7 [facility] Comment on above: Order Comment: Speci men Type: BLOOD SPECIMENOrdering Facility: [facility] Address: [address] [place] [address] Performed By: #### 5 8410-2 ####[facility] [id number] [address] [place] Platelets (Bld) [#/Vol] 225 10*3/uL Normal 150-400 [facility] Comment on above: Order Comment: Speci men Type: BLOOD SPECIMENOrdering Facility: [facility] Address: [address] [place] [address] Performed By: #### 5 8410-2 ####[facility] [id number] [place] [address] [facility] [place] RBC (Bld) [#/Vol] 4.05 10*6/uL Normal 3.90-5.20 [facility] Comment on above: Order Comment: Speci men Type: BLOOD SPECIMENOrdering Facility: [facility] Address: [address] Performed By: #### 5 8410-2 ####[facility] [id number] [address] [place] WBC (Bld) [#/Vol] 7.95 10*3/uL Normal 3.70-11.00 [facility] Comment on above: Order Comment: Speci men Type: BLOOD SPECIMENOrdering Facility: [facility] Address: [address] [place] [address] Performed By: #### 5 8410-2 ####[facility] [id number] [address] [place] Comprehensive metabolic 2000 panelon 03-28-2022 Albumin [Mass/Vol] 3.5 g/dL Low 3.9-4.9 [facility] Comment on above: Order Comment: Speci men Type: BLOOD SPECIMEN Ordering Facility: [facility] Address: [address] [address] Performed By: #### 2 4323-8 #### [facility] CLIA [id number] [address] [place] [address] [facility] [place] ALP [Catalytic activity/Vol] 62 U/L Normal 34-123 [facility] Comment on above: Order Comment: Speci men Type: BLOOD SPECIMEN Ordering Facility: [facility] Address: [address] [address] Performed By: #### 2 4323-8 #### [facility] CLIA [id number] [address] ALT [Catalytic activity/Vol] 16 U/L Normal 7-38 [facility] Comment on above: Order Comment: Speci men Type: BLOOD SPECIMEN Ordering Facility: [facility] Address: [address] [address] Performed By: #### 2 4323-8 #### [facility] CLIA [id number] [address] Anion gap [Moles/Vol] 11 mmol/L Normal 9-18 [facility] Comment on above: Order Comment: Speci men Type: BLOOD SPECIMEN Ordering Facility: [facility] Address: [address] [place] [address] Performed By: #### 2 4323-8 #### [facility] CLIA [id number] [address] AST [Catalytic activity/Vol] 13 U/L Normal 13-35 [facility] Comment on above: Order Comment: Speci men Type: BLOOD SPECIMEN Ordering Facility: [facility] Address: [address] [place] [address] Performed By: #### 2 4323-8 #### [facility] CLIA [id number] [address] [place] Bilirubin [Mass/Vol] 0.6 mg/dL Normal 0.2-1.3 [facility] Comment on above: Order Comment: Speci men Type: BLOOD SPECIMEN Ordering Facility: [facility] Address: [address] [place] [address] Performed By: #### 2 4323-8 #### [facility] CLIA [id number] [address] [place] [address] [place] Calcium [Mass/Vol] 9.1 mg/dL Normal 8.5-10.2 [facility] Comment on above: Order Comment: Speci men Type: BLOOD SPECIMEN Ordering Facility: [facility] Address: [address] [place] [address] Performed By: #### 2 4323-8 #### [facility] CLIA [id number] [address] [place] Chloride [Moles/Vol] 100 mmol/L Normal 97-105 [facility] Comment on above: Order Comment: Speci men Type: BLOOD SPECIMEN Ordering Facility: [facility] Address: [address] [place] [address] Performed By: #### 2 4323-8 #### [facility] CLIA [id number] [address] [place] [address] [place] CO2 [Moles/Vol] 29 mmol/L Normal 22-30 [facility] Comment on above: Order Comment: Speci men Type: BLOOD SPECIMEN Ordering Facility: [facility] Address: [address] [address] Performed By: #### 2 4323-8 #### [facility] CLIA [id number] [address] [place] [address] [place] Creatinine [Mass/Vol] 0.62 mg/dL Normal 0.58-0.96 [facility] Comment on above: Order Comment: Speci men Type: BLOOD SPECIMEN Ordering Facility: [facility] Address: [address] [place] [address] Performed By: #### 2 4323-8 #### [facility] CLIA [id number] [address] [place] [address] [place] ESTIMATED GLOMERULAR FILTRATION RATE 106 mL/min/1.73m??? Normal >=60 [facility] Comment on above: Order Comment: Susie santizo Type: BLOOD SPECIMEN Ordering Facility: [facility] Address: [address] [place] [phone] Result Comment: Cecille mated Glomerular Filtration Rate (eGFR) is calculated using the 2020 CKD-EPI creatinine equation. This equation utilizes serum creatinine, sex, and age as parameters. The creatinine assay has traceable calibration to isotope dilution-mass spectrometry. Refer to KDIGO guidelines for clinical interpretation. In patients with unstable renal function, e.g. those with acute kidney injury, the eGFR may not accurately reflect actual GFR. Performed By: #### 2 4323-8 #### [facility] CLIA [id number] [address] [place] [address] [place] Glucose [Mass/Vol] 154 mg/dL High 74-99 [facility] Comment on above: Order Comment: Susie santizo Type: BLOOD SPECIMEN Ordering Facility: [facility] Address: [address] [place] [phone] Result Comment: The [place] Diabetes [employer] (ADA) provides guidance for cutoff values for fasting glucose and random glucose. The ADA defines fasting as no caloric intake for at least 8 hours. Fasting plasma glucose results between 100 to 125 mg/dL indicate increased risk for diabetes (prediabetes). Fasting plasma glucose results greater than or equal to 126 mg/dL meet the criteria for diagnosis of diabetes. In the absence of unequivocal hyperglycemia, results should be confirmed by repeat testing. In a patient with classic symptoms of hyperglycemia or hyperglycemic crisis, random plasma glucose results greater than or equal to 200 mg/dL meet the criteria for diagnosis of diabetes. Reference: Standards of Medical Care in Diabetes 2016, [place] [employer]. Diabetes Care. 2016.39(Suppl 1). Performed By: #### 2 4323-8 #### [facility] CLIA [id number] [address] [place] [address] [place] [place] Potassium [Moles/Vol] 3.9 mmol/L Normal 3.7-5.1 [facility] Comment on above: Order Comment: Susie santizo Type: BLOOD SPECIMEN Ordering Facility: [facility] Address: [address] [address] Performed By: #### 2 4323-8 #### [facility] CLIA [id number] [address] Protein [Mass/Vol] 6.6 g/dL Normal 6.3-8.0 [facility] Comment on above: Order Comment: Speci men Type: BLOOD SPECIMEN Ordering Facility: [facility] Address: [address] [place] [address] Performed By: #### 2 4323-8 #### [facility] CLIA [id number] [address] Sodium [Moles/Vol] 140 mmol/L Normal 136-144 [facility] Comment on above: Order Comment: Speci men Type: BLOOD SPECIMEN Ordering Facility: [facility] Address: [address] [place] [address] Performed By: #### 2 4323-8 #### [facility] CLIA [id number] [address] Urea nitrogen [Mass/Vol] 11 mg/dL Normal 7-21 [facility] Comment on above: Order Comment: Speci men Type: BLOOD SPECIMEN Ordering Facility: [facility] Address: [address] [place] [address] Performed By: #### 2 4323-8 #### [facility] CLIA [id number] [address] NURSING PROGon 03-28-2022 NURSING PROG HNO ID: [id number] Author: Yue Kruse RN Service: Nursing Author Type: Registered Nurse Type: Nursing Progress Note Filed: 03/28/2022 9:26 AM Note Text: Nursing Progress Note Patient Name: Bradley Matos Patient Location: [facility]-0236/[id number] Daily Note:0915 c.o nausea, message sent to hospitalist, orders received. This note was completed by: Yue Kruse [facility] ALLIED HEALTHon 03-27-2022 ALLIED HEALTH HNO ID: [id number] Author: RT Juan Antonio(R) Service: Radiology Author Type: Technologist Type: Allied Health Filed: 03/27/2022 8:42 PM Note Text: Radiology Service Progress Note PATIENT NAME: Bradley Matos DATE OF SERVICE: March 27, 2022 TIME: 8:42 PM PATIENT IDENTITY VERIFICATION COMPLETED USING TWO (2) IDENTIFIERS: Name and Date of confirmed by patient verbally and Name and Date of confirmed by identification band. FALL SCREENING: Has the patient had 2 falls in the last year or 1 fall with injury or currently using an Ambulatory Assistive Device (Walker, Cane, Wheelchair, Crutches, etc.)? Emergency Room Patient: Screened in ED PATIENT GENDER DATA: Female. status: : No status: NO. PATIENT RELEVANT IMPLANT DATA REVIEWED: Not Applicable RADIOLOGY DEPARTMENT: CT; Exam(s) Completed: Lower extremity PERIPHERAL IV DATA: Inpatient: see LDA documentation SIGNED BY: RT Juan Antonio(R) March 27, 2022 8:42 PM [facility] CBC panel Auto (Bld)on 03-27 Erythrocyte distribution width (RBC) [Ratio] 15.6 % High 11.5-15.0 [facility] Comment on above: Order Comment: Susie santizo Type: BLOOD SPECIMENOrdering Facility: [facility] Address: [address] [place] [address] Performed By: #### 5 8410-2 ####[facility] [id number] [place] [address] [place] Hematocrit (Bld) [Volume fraction] 36.2 % Normal 36.0-46.0 [facility] Comment on above: Order Comment: Susie santizo Type: BLOOD SPECIMENOrdering Facility: [facility] Address: [address] [place] [address] Performed By: #### 5 8410-2 ####[facility] [id number] [place] [address] [place] Hemoglobin (Bld) [Mass/Vol] 11.8 g/dL Normal 11.5-15.5 [facility] Comment on above: Order Comment: Speci men Type: BLOOD SPECIMENOrdering Facility: [facility] Address: [address] [place] [address] Performed By: #### 5 8410-2 ####[facility] [id number] [address] MCH (RBC) [Entitic mass] 29.7 pg Normal 26.0-34.0 [facility] Comment on above: Order Comment: Speci men Type: BLOOD SPECIMENOrdering Facility: [facility] Address: [address] [place] [address] Performed By: #### 5 8410-2 ####[facility] [id number] [address] MCHC (RBC) [Mass/Vol] 32.6 g/dL Normal 30.5-36.0 [facility] Comment on above: Order Comment: Speci men Type: BLOOD SPECIMENOrdering Facility: [facility] Address: [address] [place] [address] Performed By: #### 5 8410-2 ####[facility] [id number] [address] MCV (RBC) [Entitic vol] 91.2 fL Normal 80.0-100.0 [facility] Comment on above: Order Comment: Speci men Type: BLOOD SPECIMENOrdering Facility: [facility] Address: [address] [place] [address] Performed By: #### 5 8410-2 ####[facility] [id number] [address] Nucleated RBC (Bld) [#/Vol] 10*3/uL Normal <0.01 [facility] Comment on above: Order Comment: Speci men Type: BLOOD SPECIMENOrdering Facility: [facility] Address: [address] [place] [address] Performed By: #### 5 8410-2 ####[facility]IA [id number] [place] [address] [place] Platelet mean volume (Bld) [Entitic vol] 9.8 fL Normal 9.0-12.7 [facility] Comment on above: Order Comment: Speci men Type: BLOOD SPECIMENOrdering Facility: [facility] Address: [address] [place] [address] Performed By: #### 5 8410-2 ####[facility] [id number] [place] [address] [place] Platelets (Bld) [#/Vol] 213 10*3/uL Normal 150-400 [facility] Comment on above: Order Comment: Speci men Type: BLOOD SPECIMENOrdering Facility: [facility] Address: [address] [place] [address] Performed By: #### 5 8410-2 ####[facility] [id number] [place] [address] [place] RBC (Bld) [#/Vol] 3.97 10*6/uL Normal 3.90-5.20 [facility] Comment on above: Order Comment: Speci men Type: BLOOD SPECIMENOrdering Facility: [facility] Address: [address] [place] [address] Performed By: #### 5 8410-2 ####[facility] [id number] [place] [address] [place] WBC (Bld) [#/Vol] 7.45 10*3/uL Normal 3.70-11.00 [facility] Comment on above: Order Comment: Speci men Type: BLOOD SPECIMENOrdering Facility: [facility] Address: [address] [place] [address] Performed By: #### 5 8410-2 ####[facility] [id number] [address] CONSULTon 03-27-2022 CONSULT HNO ID: [id number] Author: Michael Hewitt MD Service: Orthopaedic Surgery Author Type: Physician Type: Consults Filed: 03/27/2022 4:50 PM Note Text: Recent stroke, Recent COVID, baseline moderate OA in the left hip and negative xray for fracture. Patient not a surgical candidate based on medical co-morbidities, clinical situation, etc. We'll get a CT scan of the left hip to R/o occult fracture. Otherwise, if normal, likely exacerbation of prior OA and inpatient consultation is not necessary. Will follow imaging. Michael Hewitt MD [facility] CONSULT PROGon 03-27-2022 CONSULT PROG HNO ID: [id number] Author: Kurt Evans MD Service: Infectious Disease Author Type: Physician Type: Consult Progress Note Filed: 03/27/2022 10:34 PM Note Text: INFECTIOUS DISEASE PROGRESS NOTE Patient Name: Bradley Matos INTERVAL HISTORY: Patient seen and evaluated for persistent COVID. Antiviral therapy and Dexamethasone course previously completed at the beginning of March. Currently resting in bed in [facility], feels her left sided weakness is comparable to yesterday and no worse today. She is oxygenating well on room air with SpO2 ranging from 93-95% on room air. She denies fevers, chills, sweats, or rigors. She denies diarrhea, nausea, vomiting. Tmax 99.3 F overnight. WBC remains normal. She denies respiratory distress. ? CRP 9 D-dimer 890 ? IMAGES CT Brain - No acute intracranial abnormalities. No significant change from previous imaging. Chronic right caudate nucleus lacunar infarct. Chronic anterior medial right thalamic infarct. Mild degree supratentorial chronic microvascular ischemic changes posterior centrum semiovale as well as posterior body right side of the corpus callosum. ? CT cervical spine - No CT evidence of acute osseous abnormality of the cervical or thoracic spine.?No acute bone destruction, osseous lesion or fracture. C4-C5 and lesser degree C5-6 and C6-7 levels: Moderate to severe left foraminal stenosis secondary to uncovertebral hypertrophy. ? CXR - No acute radiographic traumatic abnormality ? XR L Hip - No acute fracture identified. ?Consider crosstable lateral view. Left hip osteoarthritis ? XR Shoulder - No acute traumatic abnormality? MRI/MRA BRAIN AND CERVICAL SPINE WO IVCON - 1. ?ACUTE INFARCTION IN RIGHT KEE RADIATA 2. ?NO DEFINITIVE HEMORRHAGE 3. ?UNREMARKABLE MRA HEAD 4. ?LIMITED AND MOTION CORRUPTED CERVICAL SEQUENCE, DEMONSTRATES NO DOMINANT ABNORMALITY Patient Active Hospital Problem List: Left-sided weakness (03/20/2022) Ulcerative colitis, chronic (HCC) (01/12/2016) Morbid obesity (HCC) (10/29/2017) Recent cerebrovascular accident (CVA) (03/09/2022) COVID-19 (03/09/2022) GERD (gastroesophageal reflux disease) (03/20/2022) Essential hypertension (12/16/2018) Hyperlipidemia (03/25/2022) Elevated glucose (03/25/2022) Stroke-like symptoms (03/25/2022) COVID (03/25/2022) ASSESSMENT: Persistent COVID Recent CVA, now with new stroke found on MRI/MRA Anxiety Hypertension Chronic fatigue syndrome Osteoarthritis Fibromyalgia Post-traumatic stress disorder Sjogren's syndrome RECOMMENDATIONS: Will follow for persistent COVID Hold dexamethasone AND RDV therapy -> Patient recently completed these therapies from 03/08-03/12 and 03/08-03/17 In setting of persistent COVID infection, patient is not a candidate for Bebtalovimab Monitor CBC, CMP daily? Monitor off abx Not currently a candidate for Baricitinib administration, oxygenating well on RA Monitor temperatures and counts IS AC managed by primary MEDICATIONS: reviewed. Current Facility-Administered Medications Medication Dose Route Frequency - atorvastatin 40 mg tab(s) (LIPITOR) 40 mg ORAL DAILY - clopidogrel 75 mg tab(s) (PLAVIX) 75 mg ORAL DAILY - NaCl 0.9% iv flush bag 20 mL INTRAVENOUS PRN - sodium chloride 0.9 % (flush) 3-5 mL (BD POSIFLUSH) 3-5 mL INTRAVENOUS q 12 H - sodium chloride 0.9 % (flush) 2-10 mL (BD POSIFLUSH) 2-10 mL INTRAVENOUS DIRECTED PRN - NaCl 0.9% iv flush bag 20 mL INTRAVENOUS PRN - sodium chloride 0.9 % (flush) 3-5 mL (BD POSIFLUSH) 3-5 mL INTRAVENOUS q 12 H - docusate sodium 100 mg cap(s) (COLACE) 100 mg ORAL BID PRN - acetaminophen 650 mg tab(s) (TYLENOL) 650 mg ORAL q 6 H PRN - dicyclomine 20 mg tab(s) (BENTYL) 20 mg ORAL q 6 H PRN - loperamide 2 mg cap(s) (IMODIUM) 2 mg ORAL TID PRN - enoxaparin 40 mg injection (LOVENOX) 40 mg SUBCUTANEOUS q 12 HR - lidocaine 4 % 1 Patch (SALONPAS) 1 Patch TRANSDERMAL DAILY And - lidocaine patch - REMOVE OTHER AT BEDTIME And - lidocaine - VERIFY PATCH OTHER q 8 H - lidocaine 4 % 1 Patch (SALONPAS) 1 Patch TRANSDERMAL DAILY And - lidocaine patch - REMOVE OTHER AT BEDTIME And - lidocaine - VERIFY PATCH OTHER q 8 H - pantoprazole DR 40 mg tab(s) (PROTONIX) 40 mg ORAL DAILY - hydrALAZINE 10 mg tab(s) (APRESOLINE) 10 mg ORAL QID PRN - amLODIPine 10 mg tab(s) (NORVASC) 10 mg ORAL DAILY PHYSICAL EXAM: Vital signs: BP 163/74 Pulse 90 Temp 36.5 ?C (97.7 ?F) (Temporal) Resp 20 Ht 167.6 cm (5' 6") Wt (!) 153 kg (337 lb 4.9 oz) LMP 01/11/2015 SpO2 94% BMI 54.44 kg/m? Temp (24hrs), Av.8 ?C (98.2 ?F), Min:36.3 ?C (97.3 ?F), Max:37.4 ?C (99.3 ?F) General: alert, oriented, NAD Neuro: left sided weakness Lungs: bilaterally clear to auscultation Heart: regular rate and rhythm Abdomen: soft, non tender, non distended, BS+ : no CVAT Extremities: no edema Skin: No rashes MSK: left hip pain, no joint inflammation Line (more content not included)... Normal [facility] CT HIP WO IVCON LTon 03-27- 022 CT HIP WO IVCON LT * * *Final Report* * * DATE OF EXAM: Mar 27 2022 8:17PM [facility] 0079 - CT HIP WO IVCON LT / PROCEDURE REASON: Fracture, hip * * * * Physician Interpretation * * * * PROCEDURE: CT HIP WO IVCON LT INDICATION: Fracture, hip TECHNIQUE: Multiplanar reconstructed images CT Radiation dose: Integrated Dose-length product (DLP) for this visit = 697 mGy*cm. CT Dose Reduction Employed: Comparison: None FINDINGS: No acute fracture or dislocation. Significant axial joint space narrowing with acetabular and femoral collar spur formation. Degenerative change at the lumbosacral junction. No acute soft tissue abnormality. Anastomotic sutures in the sigmoid colon. IMPRESSION: Osteoarthrosis. No fracture. Field Liability Generalist: PSCB Transcribe Date/Time: Mar 28 2022 8:30A Dictated by : JULIA FALCON MD This examination was interpreted and the report reviewed and electronically signed by: JULIA FALCON MD on Mar 28 2022 8:33AM EST [id number] Normal [facility] Comprehensive metabolic 2000 panelon 03-27-2022 Albumin [Mass/Vol] 3.5 g/dL Low 3.9-4.9 [facility] Comment on above: Order Comment: Speci men Type: BLOOD SPECIMENOrdering Facility: [facility] Address: [address] [place] [address] Performed By: #### 2 4323-8 ####[facility] [id number] [address] ALP [Catalytic activity/Vol] 64 U/L Normal 34-123 [facility] Comment on above: Order Comment: Speci men Type: BLOOD SPECIMENOrdering Facility: [facility] Address: [address] [place] [address] Performed By: #### 2 4323-8 ####[facility] [id number] [address] [place] [facility] ALT [Catalytic activity/Vol] 16 U/L Normal 7-38 [facility] Comment on above: Order Comment: Speci men Type: BLOOD SPECIMENOrdering Facility: [facility] Address: [address] [address] Performed By: #### 2 4323-8 ####[facility] [id number] [address] [place] [facility] Anion gap [Moles/Vol] 11 mmol/L Normal 9-18 [facility] Comment on above: Order Comment: Speci men Type: BLOOD SPECIMENOrdering Facility: [facility] Address: [address] [address] Performed By: #### 2 4323-8 ####[facility] [id number] [place] [address] [place] AST [Catalytic activity/Vol] 12 U/L Low 13-35 [facility] Comment on above: Order Comment: Speci men Type: BLOOD SPECIMENOrdering Facility: [facility] Address: [address] [address] Performed By: #### 2 4323-8 ####[facility] [id number] [place] [address] [place] Bilirubin [Mass/Vol] 0.8 mg/dL Normal 0.2-1.3 [facility] Comment on above: Order Comment: Speci men Type: BLOOD SPECIMENOrdering Facility: [facility] Address: [address] [place] [address] Performed By: #### 2 4323-8 ####[facility]CLIA [id number] [place] [address] [place] Calcium [Mass/Vol] 9.3 mg/dL Normal 8.5-10.2 [facility] Comment on above: Order Comment: Speci men Type: BLOOD SPECIMENOrdering Facility: [facility] Address: [address] [place] [address] Performed By: #### 2 4323-8 ####[facility]CLIA [id number] [place] [address] [place] Chloride [Moles/Vol] 100 mmol/L Normal 97-105 [facility] Comment on above: Order Comment: Speci men Type: BLOOD SPECIMENOrdering Facility: [facility] Address: [address] [address] Performed By: #### 2 4323-8 ####[facility]ORYCLIA [id number] [place] [address] [place] CO2 [Moles/Vol] 29 mmol/L Normal 22-30 [facility] Comment on above: Order Comment: Speci men Type: BLOOD SPECIMENOrdering Facility: [facility] Address: [address] [place] [address] Performed By: #### 2 4323-8 ####[facility]CLIA [id number] [address] Creatinine [Mass/Vol] 0.57 mg/dL Low 0.58-0.96 [facility] Comment on above: Order Comment: Susie santizo Type: BLOOD SPECIMENOrdering Facility: [facility] Address: [address] [place] [address] Performed By: #### 2 4323-8 ####[facility]CL[facility] [id number] [address] ESTIMATED GLOMERULAR FILTRATION RATE 108 mL/min/1.73m??? Normal >=60 [facility] Comment on above: Order Comment: Susie santizo Type: BLOOD SPECIMENOrdering Facility: [facility] Address: [address] [place] [address] Result Comment: Cecille mated Glomerular Filtration Rate (eGFR) is calculated using the 2020 CKD-EPI creatinine equation. This equation utilizes serum creatinine, sex, and age as parameters. The creatinine assay has traceable calibration to isotope dilution-mass spectrometry. Refer to KDIGO guidelines for clinical interpretation. In patients with unstable renal function, e.g. those with acute kidney injury, the eGFR may not accurately reflect actual GFR. Performed By: #### 2 4323-8 ####[facility]IA [id number] [address] Glucose [Mass/Vol] 133 mg/dL High 74-99 [facility] Comment on above: Order Comment: Susie sukhdev Type: BLOOD SPECIMENOrdering Facility: [facility] Address: [address] [place] [address] Result Comment: The [place] Diabetes Association (ADA) provides guidance for cutoff values for fasting glucose and random glucose. The ADA defines fasting as no caloric intake for at least 8 hours. Fasting plasma glucose results between 100 to 125 mg/dL indicate increased risk for diabetes (prediabetes). Fasting plasma glucose results greater than or equal to 126 mg/dL meet the criteria for diagnosis of diabetes. In the absence of unequivocal hyperglycemia, results should be confirmed by repeat testing. In a patient with classic symptoms of hyperglycemia or hyperglycemic crisis, random plasma glucose results greater than or equal to 200 mg/dL meet the criteria for diagnosis of diabetes. Reference: Standards of Medical Care in Diabetes 2016, [place] [employer] Association. Diabetes Care. 2016.39(Suppl 1). Performed By: #### 2 4323-8 ####[facility]CLIA [id number] [address] [place] [facility] Potassium [Moles/Vol] 4.0 mmol/L Normal 3.7-5.1 [facility] Comment on above: Order Comment: Speci men Type: BLOOD SPECIMENOrdering Facility: [facility] Address: [address] [place] [address] Performed By: #### 2 4323-8 ####[facility]CLIA [id number] [address] Protein [Mass/Vol] 7.0 g/dL Normal 6.3-8.0 [facility] Comment on above: Order Comment: Speci men Type: BLOOD SPECIMENOrdering Facility: [facility] Address: [address] [place] [address] Performed By: #### 2 4323-8 ####[facility]ORYCLIA [id number] [address] [place] [facility] Sodium [Moles/Vol] 140 mmol/L Normal 136-144 [facility] Comment on above: Order Comment: Speci men Type: BLOOD SPECIMENOrdering Facility: [facility] Address: [address] [place] [address] Performed By: #### 2 4323-8 ####[facility]CLIA [id number] [address] [place] Urea nitrogen [Mass/Vol] 11 mg/dL Normal 7-21 [facility] Comment on above: Order Comment: Speci men Type: BLOOD SPECIMENOrdering Facility: [facility] Address: [address] [place] [address] Performed By: #### 2 4323-8 ####[facility]ATORYCLIA [id number] [place] [address] [place] LDH SerPl-cCncon 03-27-2022 LDH [Catalytic activity/Vol] 193 U/L Normal 135-214 [facility] Comment on above: Order Comment: Speci men Type: BLOOD SPECIMENOrdering Facility: [facility] Address: [address] [place], [place] [address] Performed By: #### 2 532-0 ####[facility] LABCLIA [id number] [id number] [id number] [facility] ALLIED HEALTHon 03-26-2022 [facility] HNO ID: [id number] Author: RT Tabatha(R) Service: Radiology Author Type: Technologist Type: Allied Health Filed: 03/26/2022 5:41 PM Note Text: Radiology Service Progress Note PATIENT NAME: Bradley Matos DATE OF SERVICE: March 26, 2022 TIME: 5:06 PM PATIENT IDENTITY VERIFICATION COMPLETED USING TWO (2) IDENTIFIERS: Name and Date of confirmed by patient verbally and Name and Date of confirmed by identification band. FALL SCREENING: Has the patient had 2 falls in the last year or 1 fall with injury or currently using an Ambulatory Assistive Device (Walker, Cane, Wheelchair, Crutches, etc.)? Inpatient: Screened on floor PATIENT GENDER DATA: Female. status: : No status: NO. PATIENT RELEVANT IMPLANT DATA REVIEWED: Yes RADIOLOGY DEPARTMENT: MR; Exam(s) Completed: Head: Routine Brain [place] MRA Spine: Cervical spine PT COULD NOT FINISH EXAM Patient squeezed emergency ball constantly and couldn't tolerate one minute of scanning before being adjusted. After several false starts, and partial images acquired patient refused additional imaging. Reached out to ordering MD and explained situation. PERIPHERAL IV DATA: Not applicable Pt difficulty tolerating exam SIGNED BY: RT Silvino(R) March 26, 2022 5:06 PM Normal [facility] ALLIED HEALTH HNO ID: [id number] Author: Nataliya Pierre RN Service: Infection Prevention Author Type: Registered Nurse Type: Allied Health Filed: 03/26/2022 1:17 PM Note Text: INFECTION PREVENTION NOTE Admission Date: 03/25/2022 Patient meets ?COVID Resolved? criteria and isolation has been discontinued as per CDC guidance. COVID Resolved status will remain in storyboard for 90 days from FIRST positive test. SIGNATURE: Nataliya Pierre RN PATIENT NAME: Bradley Matos DATE: March 26, 2022 TIME: 1:17 PM PAGER/CONTACT #: [phone] Infection Prevention after hours/weekend pager: Contact Nursing Producer Arborist Manager Normal [facility] CBC panel Auto (Bld)on 03-26 Erythrocyte distribution width (RBC) [Ratio] 15.8 % High 11.5-15.0 [facility] Comment on above: Order Comment: Speci men Type: BLOOD SPECIMENOrdering Facility: [facility] Address: [address] [place] [address] Performed By: #### 5 8410-2 ####[facility]ORYCLIA [id number] [address] Hematocrit (Bld) [Volume fraction] 38.1 % Normal 36.0-46.0 [facility] Comment on above: Order Comment: Speci men Type: BLOOD SPECIMENOrdering Facility: [facility] Address: [address] [place] [address] Performed By: #### 5 8410-2 ####[facility]ORYCLIA [id number] [address] OF [facility] Hemoglobin (Bld) [Mass/Vol] 12.1 g/dL Normal 11.5-15.5 [facility] Comment on above: Order Comment: Speci men Type: BLOOD SPECIMENOrdering Facility: [facility] Address: [address] [place] [address] Performed By: #### 5 8410-2 ####[facility]ATORYCLIA [id number] [address] [place] [facility] MCH (RBC) [Entitic mass] 28.9 pg Normal 26.0-34.0 [facility] Comment on above: Order Comment: Speci men Type: BLOOD SPECIMENOrdering Facility: [facility] Address: [address] [place] [address] Performed By: #### 5 8410-2 ####[facility]ATORYCLIA [id number] [address] MCHC (RBC) [Mass/Vol] 31.8 g/dL Normal 30.5-36.0 [facility] Comment on above: Order Comment: Speci men Type: BLOOD SPECIMENOrdering Facility: [facility] Address: [address] [place] [address] Performed By: #### 5 8410-2 ####LAMBERT LABORATORYCLIA [id number] [address] MCV (RBC) [Entitic vol] 91.1 fL Normal 80.0-100.0 M [facility] Comment on above: Order Comment: Speci men Type: BLOOD SPECIMENOrdering Facility: [facility] Address: [address] [place] [address] Performed By: #### 5 8410-2 ####LAMBERT LABORATORYCLIA [id number] [address] Nucleated RBC (Bld) [#/Vol] 10*3/uL Normal <0.01 [facility] Comment on above: Order Comment: Speci men Type: BLOOD SPECIMENOrdering Facility: [facility] Address: [address] [place] [address] Performed By: #### 5 8410-2 ####LAMBERT LABORATORYCLIA [id number] [address] Platelet mean volume (Bld) [Entitic vol] 9.6 fL Normal 9.0-12.7 [facility] Comment on above: Order Comment: Speci men Type: BLOOD SPECIMENOrdering Facility: [facility] Address: [address] [place], [place] [address] Performed By: #### 5 8410-2 ####LAMBERT LABORATORYCLIA [id number] [address] Platelets (Bld) [#/Vol] 199 10*3/uL Normal 150-400 [facility] Comment on above: Order Comment: Speci men Type: BLOOD SPECIMENOrdering Facility: [facility] Address: [address] [place] [address] Performed By: #### 5 8410-2 ####LAMBERT LABORATORYCLIA [id number] [place] [address] [place] RBC (Bld) [#/Vol] 4.18 10*6/uL Normal 3.90-5.20 [facility] Comment on above: Order Comment: Speci sukhdev Type: BLOOD SPECIMENOrdering Facility: [facility] Address: [address] [place] [phone] Performed By: #### 5 8410-2 ####TOWER LABORATORYCLIA [id number] [place] [address] [facility] [place] WBC (Bld) [#/Vol] 7.86 10*3/uL Normal 3.70-11.00 [facility] Comment on above: Order Comment: Speci men Type: BLOOD SPECIMENOrdering Facility: [facility] Address: [address] [place] [phone] Performed By: #### 5 8410-2 ####TOWER LABORATORYCLIA [id number] [place] [address] [facility] CNCOon 03-26-2022 CNCO Letter Text Normal [facility] CONSULTon 03-26-2022 CONSULT HNO ID: [id number] Author: Kurt Evans MD Service: Infectious Disease Author Type: Physician Type: Consults Filed: 03/26/2022 10:03 PM Note Text: CONSULT: INFECTIOUS DISEASE SERVICE SERVICE DATE: 03/26/2022 SERVICE TIME: 1:01 PM REASON FOR CONSULT: COVID 19 REQUESTING PHYSICIAN: Stephen Guy MD PRIMARY CARE PHYSICIAN: Didier Hicks MD Subjective Ms. Matos is a 56 year old female who initially presented to [facility] ED on 02/28/2022 for slurred speech and left sided weakness. She was then transferred to a stroke facility, [facility], where she was diagnosed with an acute stroke. During her stay at , the patient tested positive for COVID. She was then discharged to an acute inpatient rehab with residual L sided weakness but left AMA on 03/08/2022 and then missed her scheduled follow-up with Neurology. After returning home on the same day (03/08), she was still feeling poorly and came to the [facility] ED. Again she tested positive for COVID, but due to her oxygen requirement and comorbid conditions, she was admitted for Dexamethasone and Remdesivir therapy. She completed 5 days of Remdesivir therapy as inpatient and was then discharged to inpatient rehab for a second time ([facility]) and sent with 5 days of Dexamethasone to complete a total of 10 days of this medication. Patient was improving at [facility] facility and was ambulating to the bathroom with assistive devices when on 03/20 she again had acute left sided weakness and fell (denied LOC, hitting her head, or any fall associated injury). Since her fall, her left-sided weakness has become more pronounced (2/5 strength, unable to overcome gravity) with the addition of new sensory deficits, reporting numbness and tingling to LUE and LLE (onset Friday03/23/2022). She is also now having left hip pain which she suspects is from her previous fall on 03/20/2022. After 2 days of worsening left-sided weakness with continual numbness and tingling, she presented to [facility] yesterday (03/25/2022) with these same concerns. In addition to weakness and left sided sensory changes she endorsed headache, mid to upper back pain, and left shoulder pain. Her PMH includes recent CVA, COVID 19, anxiety, hypertension, chronic fatigue syndrome, fibromyalgia, post-traumatic stress disorder, and Sjogren's Syndrome. Currently the patient is resting in bed and states her L sided weakness is improving. Afebrile since admission. No leukocytosis. SpO2 ranging from 93-95% on room air. UA - Clean CRP 9 D-dimer [address] Brain - No acute intracranial abnormalities. No significant change from previous imaging. Chronic right caudate nucleus lacunar infarct. Chronic anterior medial right thalamic infarct. Mild degree supratentorial chronic microvascular ischemic changes posterior centrum semiovale as well as posterior body right side of the corpus callosum. CT cervical spine - No CT evidence of acute osseous abnormality of the cervical or thoracic spine. No acute bone destruction, osseous lesion or fracture. C4-C5 and lesser degree C5-6 and C6-7 levels: Moderate to severe left foraminal stenosis secondary to uncovertebral hypertrophy. CXR - No acute radiographic traumatic abnormality XR L Hip - No acute fracture identified. ?Consider crosstable lateral view. Left hip osteoarthritis XR Shoulder - No acute traumatic abnormality PAST MEDICAL HISTORY Diagnosis Date - Anxiety - Essential hypertension 12/16/2018 - Fatigue chronic fatigue syndrome - Fibromyalgia - GI problem UC and prior ulcers - Medial meniscus tear 12/19/2014 - Morbid obesity (HCC) - Post traumatic stress disorder (PTSD) - PTSD (post-traumatic stress disorder) 03/20/2022 - Scabies - Sjogren's syndrome (HCC) PAST SURGICAL HISTORY Procedure Laterality Date - ARTHROSCOPY KNEE DIAGNOSTIC W/WO SYNOVIAL BX SPX Left 01/19/15 Arthroscopy, knee - SECTION HX - UNL LAPAR WEDGE RESECTION SIGM COLON 10/30/2016 [facility] FAMILY HISTORY Problem Relation Age of Onset - None Brother - None Brother - Arthritis Mother - GI Mother - Hypertension Mother - Arthritis Brother - Cancer Brother - Emphysema Father - Heart Father - Stroke Father - Headache Brother - Heart Brother - Heart Brother - Psychiatry Brother - Seizures Brother Social History Tobacco Use - Smoking status: Never Smoker - Smokeless tobacco: Never Used Substance Use Topics - Alcohol use: No - Drug use: No dicyclomine (BENTYL) 20 mg tablet, Take 20 mg by mouth every 6 hours as needed. , Disp: , Rfl: , 03/25/2022 at Unknown time lidocaine (SALONPAS) 4 % patch, Apply 1 application as directed once daily., Disp: , Rfl: , 03/25/2022 at Unknown time amLODIPine (NORVASC) 10 mg tablet, Take 10 mg by mouth once daily., Disp: , Rfl: , 03/25/2022 at Unknown time atorvastatin (LIPITOR) 40 mg tablet, Take 40 mg by mouth once daily., Disp: , Rfl: (more content not included)... Normal [facility] CONSULT HNO ID: [id number] Author: Erwin Ahn Jr., MD Service: Neurology General Author Type: Physician Type: Consults Filed: 03/26/2022 11:06 AM Note Text: TELENEUROLOGY CONSULT PROGRESS NOTE Patient seen using [facility]. Recommendations are placed in the chart. Please review. For questions after hours, when teleneurologist is not available, for Marcela, Meredith and Darleen Please Page [phone] for the [facility] OR For Judy Please page Neurology pony edger at [place] [phone] for EMERGENCIES ONLY. Please follow normal inpatient acute stroke procedures per routine as needed. SERVICE DATE: 03/26/2022 SERVICE TIME: 10:15 AM REASON FOR CONSULT: L side weakness, recent stroke REQUESTING PHYSICIAN: Ileana Guy MD PRIMARY CARE PHYSICIAN: Didier Hicks MD Subjective Ms. Matos is a 56 year old right handed female who presents for and per admitting notes: This is a 56 year old female who presents with weakness, symptoms began 02/28 are constant in nature and now newly associated w/ numbness and tingling to left face, LUE, LLE, nausea, headache, neck pain, upper mid back pain and left shoulder pain. She states that symptoms initially began 02/28 evaluated at [facility] ER for slurred speech subsequently was transferred to [facility] and was diagnosed with an acute stroke, patient unable to state location. During the course of hospitalization she notes that she was COIVD + and was transferred to the rehab facility, w/residual left sided weakness, however she left AMA on 03/08. She has not yet had neurology follow-up. She returned home but was not feeling well and presented to [facility] on 03/08 where she was found to be COVID-19 (+), she was treated w/ 5 days of dex (5 days at discharge), and remdesivir d/t NC oxygen requirement and discharged to rehab at [facility]. She notes that she was dong well at the rehab facility and was able to ambulate independently with assistive devices to the bathroom. However on 03/20 while ambulating back to bed from the bathroom she experienced weakness to her Left side and was unable to hold her weight and fell to the floor. She denies any LOC or hitting her head at the time of the fall. She states since the fall the weakness has become so much that she is now unable to overcome gravity to her left side and endorses numbness and tingling to the LUE/LLE which began on Friday. She also c/o left hip pain from the fall. Denies CP, SOB, denies any N/V/diarrhea/conspiatio n or urinary issues. ? CT brain performed in ER reviewed and I do not identify a definite acute intracranial process. Per rad report: No acute intracranial abnormalities. No significant change from previous imaging. Chronic right caudate nucleus lacunar infarct. Chronic anterior medial right thalamic infarct. Mild degree supratentorial chronic microvascular ischemic changes posterior centrum semiovale as well as posterior body right side of the corpus callosum. 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 States she was also having spasms in the left arm and foot. States yesterday she could not even lift her left arm. States feels like fingers want to curl up and ball up. States she was not on ASA due to allergies and ulcers. However states had history of bleeding ulcers. Was not d/c'd on antiplt from [facility] per pt, but records show that she was on Plavix 75mg daily. Currently feels with a lot of effort can move the left toes. Still with pins and needles on left side. States 1 week ago could walk to the bathroom with a walker but now the leg feels heavy. Timeline: Pt states 02/26 had left side weakness and slurred speech. 02/28 went into [facility] and tx'd to [facility]. Was then moved from [facility] to [facility] rehab where she signed herself out due to "verbal abuse" because they said "I was not participating". Went home, and took 20 minutes to get up steps. States that night something was not right, so called squad and admitted to [facility] on 03/08/22 where tested + for COVID. Then sent to [facility] rehab. Note BP was not elevated at time of presentation to suggest stroke. FUNCTIONAL STATUS: Totally dependent PAST MEDICAL HISTORY Diagnosis Date - Anxiety - Essential hypertension 12/16/2018 - Fatigue chronic fatigue syndrome - Fibromyalgia - GI problem UC and prior ulcers - Medial meniscus tear 12/19/2014 - Morbid obesity (HCC) - Post traumatic stress disorder (PTSD) - PTSD (post-traumatic stress disorder) 03/20/2022 - Scabies - Sjogren's syndrome (HCC) PAST SURGICAL HISTORY Procedure Laterality Date - ARTHROSCOPY KNEE DIAGNOSTIC W/WO SYNOVIAL BX SPX Left 01/19/15 Arthroscopy, knee - SECTION HX - UNL LAPAR WEDGE RESECTION SIGM COLON 10/30/2016 Maynor Randall FAMILY HISTORY Problem Relation Age of Onset - None Brother - None Brother (more content not included)... Normal [facility] Comprehensive metabolic 2000 panelon 03-26-2022 Albumin [Mass/Vol] 3.4 g/dL Low 3.9-4.9 [facility] Comment on above: Order Comment: Speci men Type: BLOOD SPECIMENOrdering Facility: [facility] Address: [address] [place], [place] [address] Performed By: #### 2 4331-1, 2275-12, ####LAMBERT LABORATORYCLIA [id number] [place] [address] [place] ALP [Catalytic activity/Vol] 62 U/L Normal 34-123 [facility] Comment on above: Order Comment: Speci men Type: BLOOD SPECIMENOrdering Facility: [facility] Address: [address] [place] [address] Performed By: #### 2 4331-1, 2275-12, ####LAMBERT LABORATORYCLIA [id number] [address] OF [facility] ALT [Catalytic activity/Vol] 15 U/L Normal 7-38 [facility] Comment on above: Order Comment: Speci men Type: BLOOD SPECIMENOrdering Facility: [facility] Address: [address] [place] [address] Performed By: #### 2 4331-1, 2275-12, ####LAMBERT LABORATORYCLIA [id number] [address] Anion gap [Moles/Vol] 9 mmol/L Normal 9-18 [facility] Comment on above: Order Comment: Speci men Type: BLOOD SPECIMENOrdering Facility: [facility] Address: [address] [place], [place] [address] Performed By: #### 2 4331-1, 2275-12, ####LAMBERT LABORATORYCLIA [id number] [address] AST [Catalytic activity/Vol] 15 U/L Normal 13-35 [facility] Comment on above: Order Comment: Speci men Type: BLOOD SPECIMENOrdering Facility: [facility] Address: [address] [place], [place] [address] Performed By: #### 2 4331-1, 2275-12, ####LAMBERT LABORATORYCLIA [id number] [place] [address] [place] Bilirubin [Mass/Vol] 0.8 mg/dL Normal 0.2-1.3 [facility] Comment on above: Order Comment: Speci men Type: BLOOD SPECIMENOrdering Facility: [facility] Address: [address] [place] [address] Performed By: #### 2 4331-1, 2275-12, ####LAMBERT LABORATORYCLIA [id number] [place] [address] [place] Calcium [Mass/Vol] 9.2 mg/dL Normal 8.5-10.2 [facility] Comment on above: Order Comment: Speci men Type: BLOOD SPECIMENOrdering Facility: [facility] Address: [address] [place] [address] Performed By: #### 2 4331-1, 2275-12, ####LAMBERT LABORATORYCLIA [id number] [place] [address] [place] Chloride [Moles/Vol] 100 mmol/L Normal 97-105 [facility] Comment on above: Order Comment: Speci men Type: BLOOD SPECIMENOrdering Facility: [facility] Address: [address] [place] [address] Performed By: #### 2 4331-1, 2275-12, ####LAMBERT LABORATORYCLIA [id number] [place] [address] [place] CO2 [Moles/Vol] 30 mmol/L Normal 22-30 [facility] Comment on above: Order Comment: Speci men Type: BLOOD SPECIMENOrdering Facility: [facility] Address: [address] [place] [address] Performed By: #### 2 4331-1, 2275-12, ####LAMBERT LABORATORYCLIA [id number] [place] [address] [place] Creatinine [Mass/Vol] 0.64 mg/dL Normal 0.58-0.96 [facility] Comment on above: Order Comment: Speci men Type: BLOOD SPECIMENOrdering Facility: [facility] Address: [address] [place] [address] Performed By: #### 2 4331-1, 2276-4, 29787-5 ####LAMBERT LABORATORYCLIA [id number] [address] [place] ESTIMATED GLOMERULAR FILTRATION RATE 105 mL/min/1.73m??? Normal >=60 [facility] Comment on above: Order Comment: Susie sukhdev Type: BLOOD SPECIMENOrdering Facility: [facility] Address: [address] Result Comment: Cecille mated Glomerular Filtration Rate (eGFR) is calculated using the 2020 CKD-EPI creatinine equation. This equation utilizes serum creatinine, sex, and age as parameters. The creatinine assay has traceable calibration to isotope dilution-mass spectrometry. Refer to KDIGO guidelines for clinical interpretation. In patients with unstable renal function, e.g. those with acute kidney injury, the eGFR may not accurately reflect actual GFR. Performed By: #### 2 4331-1, 2276-4, 03162-9 ####TOWER LABORATORYCLIA [id number] [place] [address] [place] Glucose [Mass/Vol] 129 mg/dL High 74-99 [facility] Comment on above: Order Comment: Susie santizo Type: BLOOD SPECIMENOrdering Facility: [facility] Address: [address] [place] [address] Result Comment: The [place] Diabetes Association (ADA) provides guidance for cutoff values for fasting glucose and random glucose. The ADA defines fasting as no caloric intake for at least 8 hours. Fasting plasma glucose results between 100 to 125 mg/dL indicate increased risk for diabetes (prediabetes). Fasting plasma glucose results greater than or equal to 126 mg/dL meet the criteria for diagnosis of diabetes. In the absence of unequivocal hyperglycemia, results should be confirmed by repeat testing. In a patient with classic symptoms of hyperglycemia or hyperglycemic crisis, random plasma glucose results greater than or equal to 200 mg/dL meet the criteria for diagnosis of diabetes. Reference: Standards of Medical Care in Diabetes 2016, [place] Diabetes Association. Diabetes Care. 2016.39(Suppl 1). Performed By: #### 2 4331-1, 2275-12, ####LAMBERT LABORATORYCLIA [id number] [place] [address] [place] Potassium [Moles/Vol] 3.9 mmol/L Normal 3.7-5.1 [facility] Comment on above: Order Comment: Speci men Type: BLOOD SPECIMENOrdering Facility: [facility] Address: [address] [place] [address] Performed By: #### 2 4331-1, 2275-12, ####LAMBERT LABORATORYCLIA [id number] [place] [address] [place] Protein [Mass/Vol] 6.8 g/dL Normal 6.3-8.0 [facility] Comment on above: Order Comment: Speci men Type: BLOOD SPECIMENOrdering Facility: [facility] Address: [address] [place] [address] Performed By: #### 2 4331-1, 2275-12, ####LAMBERT LABORATORYCLIA [id number] [place] [address] [place] Sodium [Moles/Vol] 139 mmol/L Normal 136-144 [facility] Comment on above: Order Comment: Speci men Type: BLOOD SPECIMENOrdering Facility: [facility] Address: [address] [place] [address] Performed By: #### 2 4331-1, 2275-12, ####LAMBERT LABORATORYCLIA [id number] [place] [address] [place] Urea nitrogen [Mass/Vol] 11 mg/dL Normal 7-21 [facility] Comment on above: Order Comment: Speci men Type: BLOOD SPECIMENOrdering Facility: [facility] Address: [address] [place] [address] Performed By: #### 2 4331-1, 2275-12, ####LAMBERT LABORATORYCLIA [id number] [place] [address] [place] ECHOCon 03-26-2022 ECHO Echocardiography Report: Transthoracic Echo [facility] Date of service: 03/26/2022 8:48:44 AM Ordering physician: DEONTE DOUGLAS Indication: Stroke Technologist: Ana M Stevens [facility] Interpreting physician: Jo Ann Kimble MD PATIENT: Name: MS. BRADLEY MATOS : 1965 Age: 56 years Gender: F History of hypertension and dyslipidemia. Primary rhythm: sinus. Height: 167.60 cm BSA: 2.67 m? Weight: 153.40 kg BMI: 54.6 kg/m? Heart rate 78 bpm Blood pressure 142/68 mmHg Technically difficult exam due to morbid obesity, Covid positive. Color Doppler was utilized to interrogate the cardiac valves assessed and spectral Doppler was utilized to determine the flow velocities and pressure gradients reported in this exam. MEASUREMENTS: Value Indexed Normal Max aortic dimension 3.2 cm Ao < 3.8 LV ID (diastole) 5.0 cm (2D) 1.88 cm/m? LV ID (systole) 3.5 cm (2D) 1.31 cm/m? IVS, leaflet tips 1.3 cm (2D) Posterior wall thickness 1.3 cm (2D) Left ventricular mass 268 g (2D) 100 g/m? LV stroke volume 92 ml (2D biplane) LV end diastolic volume 162 ml (2D biplane) 60.8 ml/m? 29<=EDVi<62 LV end systolic volume 71 ml (2D biplane) 26.4 ml/m? Ejection Fraction 57 % (2D biplane) EF > 54 FINDINGS: LEFT VENTRICLE The left ventricle is normal in size. There is mild concentric left ventricular hypertrophy. Left ventricular systolic function is normal. Definity contrast used for endocardial border detection. Wall Motion: All scored segments are normal. RIGHT VENTRICLE Estimated right ventricular systolic pressure is likely underestimated due to a weak or incomplete tricuspid regurgitation signal and is, at least, 20 mmHg consistent with normal pulmonary artery pressures. Estimated right atrial pressure is 3 mmHg based on IVC assessment. RIGHT ATRIUM Inferior Vena Cava: The inferior vena cava appears normal measuring 1.8 cm. The vessel decreases greater than 50 percent with inspiration. MITRAL VALVE There is mild mitral annular calcification observed posterior. There is trace mitral valve regurgitation. There is mild thickening. The pressure half time is 50 msec. The peak mitral E/A ratio is 0.89. The mitral flow deceleration time is 172 msec. TRICUSPID VALVE The tricuspid valve leaflets are structurally normal. There is trace tricuspid valve regurgitation. AORTIC VALVE The aortic valve cusps are structurally normal. There is no aortic valve regurgitation. PULMONIC VALVE The pulmonic valve was not seen or not interrogated. AORTA The visualized aorta is normal in size. Measurements - Mid ascending aorta 3.2 cm. INTERATRIAL SEPTUM The interatrial septum is normal. There is no patent foramen ovale as detected by agitated saline contrast. PERICARDIUM There is no pericardial effusion. There is an epicardial fat pad. CONCLUSIONS: - Technically difficult exam due to morbid obesity, Covid positive. - Exam indication: Stroke - The left ventricle is normal in size. There is mild concentric left ventricular hypertrophy. Left ventricular systolic function is normal. EF = 57 ? 5% (2D biplane) Definity contrast used for endocardial border detection. - There is no patent foramen ovale as detected by agitated saline contrast. - The patient has not had a prior CC echocardiographic exam for comparison. * * * Final * * * [facility] : [id number] Normal [facility] Ferritin SerPl-mCncon 2021 Ferritin [Mass/Vol] 176.5 ng/mL Normal 14.7-205.1 [facility] Comment on above: Order Comment: Speci men Type: BLOOD SPECIMENOrdering Facility: [facility] Address: [address] [place] [address] Performed By: #### 2 4331-1, 2276-4, 65196-1 ####TOWER LABORATORYCLIA [id number] [place] [address] [place] HCG Preg Ur Qlon 03-26-2022 HCG ( test) Ql (U) Negative Normal Negative [facility] Comment on above: Order Comment: Speci men Type: URINE SPECIMENOrdering Facility: [facility] Address: [address] [place] [address] Result Comment: This test is intended to aid in the early detection of . Very dilute urine samples, as indicated by a low specific gravity, may not contain cash posting representative levels of hCG. This test detects intact hCG only. This test does not reliably detect hCG degradation products, including free-beta subunit and beta-core fragment. Therefore, this test may show reduced reactivity in urine after 8 weeks gestation. A number of conditions other than , including trophoblastic disease and certain non-trophoblastic neoplasms cause elevated levels of hCG. As with any assay employing mouse antibodies, the possibility exists for interference by human anti-mouse antibodies (HAMA) in the specimen. The test provides a presumptive diagnosis for . Performed By: #### 2 106-3 ####[facility] LABORATORYCLIA [id number] [address] OF [facility] Lipid 1996 panelon 2 Cholesterol [Mass/Vol] 152 mg/dL Normal <[address] [facility] Comment on above: Order Comment: [facility] Type: BLOOD SPECIMENOrdering Facility: [facility] Address: [address] [place] [address] Result Comment: <200 mg/dL, Desirable 200-239 mg/dL, Borderline high >239 mg/dL, High Performed By: #### 2 4331-1, 2275-, ####LAMBERT LABORATORYCLIA [id number] [address] Cholesterol in HDL [Mass/Vol] 38 mg/dL Low >39 [facility] Comment on above: Order Comment: Susie [facility] Type: BLOOD SPECIMENOrdering Facility: [facility] Address: [address] [place] [address] Result Comment: 40-5 9 mg/dL, Acceptable >59 mg/dL, High: Negative risk factor for coronary heart disease <40 mg/dL, Low: Positive risk factor for coronary heart disease Performed By: #### 2 4331-1, 2275-, ####LAMBERT LABORATORYCLIA [id number] [address] Cholesterol in LDL [Mass/Vol] 87 mg/dL Normal <100 [facility] Comment on above: Order Comment: Susie santizo Type: BLOOD SPECIMENOrdering Facility: [facility] Address: [address] Result Comment: <100 mg/dL, Optimal 100-129 mg/dL, Near optimal/above optimal 130-159 mg/dL, Borderline high 160-189 mg/dL, High >189 mg/dL, Very high Secondary prevention optimal LDL Cholesterol levels are recommended to be < 70 mg/dL Performed By: #### 2 4331-1, 2275-, ####LAMBERT LABORATORYCLIA [id number] [address] Cholesterol in LDL/Cholesterol in HDL [Mass ratio] 2.29 {ratio} Normal <2.54 [facility] Comment on above: Order Comment: Speci men Type: BLOOD SPECIMENOrdering Facility: [facility] Address: [address] [place] [address] Result Comment: Refe rence: 1. National Cholesterol Education Program ATP III Guideline At-A-Glance Quick Desk Reference: National Heart, Lung, and Blood [place]. National Institutes of Health. 2001: NIH Publication No. 01-3305. 2. An International Atherosclerosis Society position paper: global recommendations for the management of dyslipidemia: executive summary, Atherosclerosis. 2014: 232(2):410-413. Performed By: #### 2 4331-1, 2275-12, ####LAMB[facility] LABORATORYCLIA [id number] [address] Cholesterol in VLDL [Mass/Vol] 27 mg/dL Normal <30 [facility] Comment on above: Order Comment: Speci men Type: BLOOD SPECIMENOrdering Facility: [facility] Address: [address] Performed By: #### 2 4331-1, 2275-12, ####LAMBERT LABORATORYCLIA [id number] [address] OF [place] Cholesterol non HDL [Mass/Vol] 114 mg/dL Normal <130 [facility] Comment on above: Order Comment: Tristiani men Type: BLOOD SPECIMENOrdering Facility: [facility] Address: [address] [id number] Result Comment: <130 mg/dL, Optimal 130-159 mg/dL, Near optimal/above optimal 160-189 mg/dL, Borderline high 190-219 mg/dL, High >219 mg/dL, Very high Secondary prevention optimal non HDL Cholesterol levels are recommended to be <100 mg/dL Performed By: #### 2 4331-1, 2275-, ####LAM[facility] LABORATORYCLIA [id number] [address] Cholesterol.total/Willow sterol in HDL [Mass ratio] 4.00 {ratio} Normal <5.10 [facility] Comment on above: Order Comment: Speci men Type: BLOOD SPECIMENOrdering Facility: [facility] Address: [address] Performed By: #### 2 4331-1, 2275-12, ####LAMBERT LABORATORYCLIA [id number] [address] FASTING TIME 12 hrs Normal [facility] Comment on above: Order Comment: Speci men Type: BLOOD SPECIMENOrdering Facility: [facility] Address: [address] [place] [address] Performed By: #### 2 4331-1, 2275-12, ####LAMBERT LABORATORYCLIA [id number] [address] Triglyceride [Mass/Vol] 134 mg/dL Normal <150 M [facility] Comment on above: Order Comment: Speci men Type: BLOOD SPECIMENOrdering Facility: [facility] Address: [address] [id number] Result Comment: <150 mg/dL, Normal 150-199 mg/dL, Borderline high 200-499 mg/dL, High >499 mg/dL, Very high Performed By: #### 2 4331-1, 2275-12, ####LAMBERT LABORATORYCLIA [id number] [place] [address] [facility] MRA BRAIN WO IVCONon 022 MRA BRAIN WO IVCON * * *Final Report* * * DATE OF EXAM: Mar 26 2022 5:21PM [facility] 0272 - MRA BRAIN WO IVCON / PROCEDURE REASON: Focal neuro deficit, new, fixed, or worsening, > 24 hours, stroke suspected * * * * Physician Interpretation * * * * EXAMINATION: MRI BRAIN WO IVCON, MRA BRAIN WO IVCON, MRI CERVICAL SPINE WO IVCON CLINICAL HISTORY: Stroke TECHNIQUE: Limited noncontrast MRI protocol including only axial flare and diffusion images. Followed by noncontrast MRA head. Also MRI cervical spine attempted, only one sagittal motion corrected series obtained. Requested MRA carotids not obtainable. MQ: MRBWO_2 COMPARISON: None. RESULT: High resolution, short echo time intracranial 3D tico-ry-vjkjto MRA axial gradient echo volume acquisition of the intracranial vessels with 2D multiplanar and 3D maximum intensity projections calculated on the imaging workstation under physician supervision MRI BRAIN Acute Change: There is restricted diffusion compatible with acute infarction involving portions of the right centrum semiovale ovale, and extending towards portions of the right caudate body. There is associated FLAIR edema, insignificant mass effect. Hemorrhage: Within the limits of the study, there is no contreras parenchymal hemorrhage on the gradient echo images. Mass Lesion/ Mass Effect: No evidence of an intracranial mass or extra-axial fluid collection. No significant mass effect. Chronic Change: Scattered patchy and confluent areas of increased T2 and FLAIR signal are present in the supratentorial white matter which is nonspecific but likely represents chronic microvascular ischemia. Parenchyma: No significant volume loss for age. The brain parenchyma is otherwise within normal limits of signal intensity and morphology. Ventricles: Normal caliber and morphology. Skull Base: Hypothalamic and pituitary region are grossly normal. Craniocervical junction is normal. No significant marrow replacement process. Vasculature: Major intracranial arterial structures, and dural venous sinuses show typical flow void, suggesting patency by spin echo criteria. Other: The visualized paranasal sinuses and mastoid air cells are clear. The orbits and extracranial soft tissues are unremarkable. MRA BRAIN The left intradural vertebral artery is slightly dominant, and two-vessel system shows robust flow-related enhancement, within normal limits. There is balanced P1 branching the terminus with small PCOMs bilaterally. The distal ICAs are codominant with robust flow-related enhancement, minimal irregularity in the siphons. The A1 segments are codominant and there is a moderate ACOMM. Visualized proximal KENNEDY, MCA, VEHICLE INSPECTOR territory vessels are grossly symmetric without acute cutoff or significant stenosis. There is no aneurysm greater than 3 mm. MRI CERVICAL SPINE This is a very limited study, only comprising one motion corrected sagittal T2 sequence. Within these limits the craniocervical junction appears normal. There is likely no high-grade central stenosis. Foraminal stenoses cannot be well assessed. There is likely no suspicious CORD signal abnormality, accounting for artifacts. IMPRESSION: Limited and motion degraded study 1. ACUTE INFARCTION IN RIGHT KEE RADIATA 2. NO DEFINITIVE HEMORRHAGE 3. UNREMARKABLE MRA HEAD 4. LIMITED AND MOTION CORRUPTED CERVICAL SEQUENCE, DEMONSTRATES NO DOMINANT ABNORMALITY Field Liability Generalist: [facility] Transcribe Date/Time: Mar 26 2022 5:29P Dictated by : RIKKI MATOS MD This examination was interpreted and the report reviewed and electronically signed by: RIKKI MATOS MD on Mar 26 2022 5:39PM EST [id number] Normal [facility] MRI BRAIN WO IVCONon 022 MRI BRAIN WO IVCON * * *Final Report* * * DATE OF EXAM: Mar 26 2022 5:21PM [facility] 0294 - MRI BRAIN WO IVCON / PROCEDURE REASON: Transient ischemic attack (TIA) * * * * Physician Interpretation * * * * EXAMINATION: MRI BRAIN WO IVCON, MRA BRAIN WO IVCON, MRI CERVICAL SPINE WO IVCON CLINICAL HISTORY: Stroke TECHNIQUE: Limited noncontrast MRI protocol including only axial flare and diffusion images. Followed by noncontrast MRA head. Also MRI cervical spine attempted, only one sagittal motion corrected series obtained. Requested MRA carotids not obtainable. MQ: MRBWO_2 COMPARISON: None. RESULT: High resolution, short echo time intracranial 3D pdwk-wh-uvzhdk MRA axial gradient echo volume acquisition of the intracranial vessels with 2D multiplanar and 3D maximum intensity projections calculated on the imaging workstation under physician supervision MRI BRAIN Acute Change: There is restricted diffusion compatible with acute infarction involving portions of the right centrum semiovale ovale, and extending towards portions of the right caudate body. There is associated FLAIR edema, insignificant mass effect. Hemorrhage: Within the limits of the study, there is no contreras parenchymal hemorrhage on the gradient echo images. Mass Lesion/ Mass Effect: No evidence of an intracranial mass or extra-axial fluid collection. No significant mass effect. Chronic Change: Scattered patchy and confluent areas of increased T2 and FLAIR signal are present in the supratentorial white matter which is nonspecific but likely represents chronic microvascular ischemia. Parenchyma: No significant volume loss for age. The brain parenchyma is otherwise within normal limits of signal intensity and morphology. Ventricles: Normal caliber and morphology. Skull Base: Hypothalamic and pituitary region are grossly normal. Craniocervical junction is normal. No significant marrow replacement process. Vasculature: Major intracranial arterial structures, and dural venous sinuses show typical flow void, suggesting patency by spin echo criteria. Other: The visualized paranasal sinuses and mastoid air cells are clear. The orbits and extracranial soft tissues are unremarkable. MRA BRAIN The left intradural vertebral artery is slightly dominant, and two-vessel system shows robust flow-related enhancement, within normal limits. There is balanced P1 branching the terminus with small PCOMs bilaterally. The distal ICAs are codominant with robust flow-related enhancement, minimal irregularity in the siphons. The A1 segments are codominant and there is a moderate ACOMM. Visualized proximal KENNEDY, MCA, VEHICLE INSPECTOR territory vessels are grossly symmetric without acute cutoff or significant stenosis. There is no aneurysm greater than 3 mm. MRI CERVICAL SPINE This is a very limited study, only comprising one motion corrected sagittal T2 sequence. Within these limits the craniocervical junction appears normal. There is likely no high-grade central stenosis. Foraminal stenoses cannot be well assessed. There is likely no suspicious CORD signal abnormality, accounting for artifacts. IMPRESSION: Limited and motion degraded study 1. ACUTE INFARCTION IN RIGHT KEE RADIATA 2. NO DEFINITIVE HEMORRHAGE 3. UNREMARKABLE MRA HEAD 4. LIMITED AND MOTION CORRUPTED CERVICAL SEQUENCE, DEMONSTRATES NO DOMINANT ABNORMALITY Field Liability Generalist: [facility] Transcribe Date/Time: Mar 26 2022 5:29P Dictated by : RIKKI MATOS MD This examination was interpreted and the report reviewed and electronically signed by: RIKKI MATOS MD on Mar 26 2022 5:39PM EST [id number] [facility] MRI CERVICAL SPINE WO IVCONo n 03-26-2022 MRI CERVICAL SPINE WO IVCON * * *Final Report* * * DATE OF EXAM: Mar 26 2022 5:21PM [facility] 0297 - MRI CERVICAL SPINE WO IVCON / PROCEDURE REASON: Spine fracture, cervical, pathological * * * * Physician Interpretation * * * * EXAMINATION: MRI BRAIN WO IVCON, MRA BRAIN WO IVCON, MRI CERVICAL SPINE WO IVCON CLINICAL HISTORY: Stroke TECHNIQUE: Limited noncontrast MRI protocol including only axial flare and diffusion images. Followed by noncontrast MRA head. Also MRI cervical spine attempted, only one sagittal motion corrected series obtained. Requested MRA carotids not obtainable. MQ: MRBWO_2 COMPARISON: None. RESULT: High resolution, short echo time intracranial 3D mayu-hq-gatijr MRA axial gradient echo volume acquisition of the intracranial vessels with 2D multiplanar and 3D maximum intensity projections calculated on the imaging workstation under physician supervision MRI BRAIN Acute Change: There is restricted diffusion compatible with acute infarction involving portions of the right centrum semiovale ovale, and extending towards portions of the right caudate body. There is associated FLAIR edema, insignificant mass effect. Hemorrhage: Within the limits of the study, there is no contreras parenchymal hemorrhage on the gradient echo images. Mass Lesion/ Mass Effect: No evidence of an intracranial mass or extra-axial fluid collection. No significant mass effect. Chronic Change: Scattered patchy and confluent areas of increased T2 and FLAIR signal are present in the supratentorial white matter which is nonspecific but likely represents chronic microvascular ischemia. Parenchyma: No significant volume loss for age. The brain parenchyma is otherwise within normal limits of signal intensity and morphology. Ventricles: Normal caliber and morphology. Skull Base: Hypothalamic and pituitary region are grossly normal. Craniocervical junction is normal. No significant marrow replacement process. Vasculature: Major intracranial arterial structures, and dural venous sinuses show typical flow void, suggesting patency by spin echo criteria. Other: The visualized paranasal sinuses and mastoid air cells are clear. The orbits and extracranial soft tissues are unremarkable. MRA BRAIN The left intradural vertebral artery is slightly dominant, and two-vessel system shows robust flow-related enhancement, within normal limits. There is balanced P1 branching the terminus with small PCOMs bilaterally. The distal ICAs are codominant with robust flow-related enhancement, minimal irregularity in the siphons. The A1 segments are codominant and there is a moderate ACOMM. Visualized proximal KENNEDY, MCA, VEHICLE INSPECTOR territory vessels are grossly symmetric without acute cutoff or significant stenosis. There is no aneurysm greater than 3 mm. MRI CERVICAL SPINE This is a very limited study, only comprising one motion corrected sagittal T2 sequence. Within these limits the craniocervical junction appears normal. There is likely no high-grade central stenosis. Foraminal stenoses cannot be well assessed. There is likely no suspicious CORD signal abnormality, accounting for artifacts. IMPRESSION: Limited and motion degraded study 1. ACUTE INFARCTION IN RIGHT KEE RADIATA 2. NO DEFINITIVE HEMORRHAGE 3. UNREMARKABLE MRA HEAD 4. LIMITED AND MOTION CORRUPTED CERVICAL SEQUENCE, DEMONSTRATES NO DOMINANT ABNORMALITY Field Liability Generalist: JAIMIE Transcribe Date/Time: Mar 26 2022 5:29P Dictated by : RIKKI MATOS MD This examination was interpreted and the report reviewed and electronically signed by: RIKKI MATOS MD on Mar 26 2022 5:39PM EST [id number] Normal [facility] THERAPY NTon 03-26-2022 THERAPY NT HNO ID: [id number] Author: Ramona Hernandez CCC-[employer] PLM CONSULTANT Service: Speech/Swallow Author Type: Speech Language Pathologist Type: Therapy (PT/OT/Speech/Resp) Filed: 03/26/2022 3:03 PM Note Text: Speech Therapy Speech Evaluation, Clinical Swallow Evaluation SERVICE DATE: 03/26/2022 SERVICE TIME: 1421 to 1446 ROOM: [place] [address] IMPRESSION: Functional communication without limitations in: Speech, Language, Cognition Functional oropharyngeal phases of swallowing: without identified risk for aspiration Diet Recommendations: Regular Consistency;Thin Liquids IDDSI Level 0 Swallowing Precautions Recommendations: Self-monitoring Recommended Discharge Disposition: No further skilled speech therapy services anticipated Reason for Hospital Admission: 56 year old admitted with left weakness; dx COVID+ 03/08/22 Reason for Speech Therapy Consult: ST munoz ordered to assess speech/swallowing per CVA protocol Relevant Past Medical History: ulcerative colitis, CVA (02/2022), GERD, HTN, hyperlipidemia, anxiety Response to Therapy Interventions: Good Participation in activities Patient Report: 'I am doing good. I have been laughing all day' Current Status Oral Hygiene: Clear, moist oral cavity Dentition: Retains Natural Dentition;Miscellaneous Missing Teeth Current Feeding Method: Oral Current Diet Textures: Regular Consistency;Thin Liquids IDDSI Level 0 Current Level Of Communication: Verbal Current Management Of Secretions: Able to self-manage Oral Motor Exam: Within Functional Limits Cognition Cognitive Status: Within Functional Limits For Current Session Speech/Voice/Language Speech Production: Within Functional Limits Expressive and Receptive Language: Within Functional Limits Swallow Position Of Patient During Assessment: Upright In Bed Consistencies Presented: Thin Liquids IDDSI Level 0, Solid Response to Consistencies Presented: -Readily consumes p.o. trials for assessment; onset of swallow appears timely with timely mastication of solids; no coughing or throat clearing; clear vocal quality post trials; pt denies any difficulty swallowing and denies any 'sticking' Compensatory Strategies Utilized During Assessment: Self-monitoring Previous Swallow Study: Clinical Swallow (pt verbally states had one after CVA which was WFL and recommended regular with thin liquids) Clinical Swallow Tara Swallow Protocol: Pass Oral Pharyngeal Swallow Assessment: Within Functional Limits Suspected Esophageal Deficits: history of GERD, but pt reports medication manages Patient /Caregiver Goals: Go to Rehab Goals for Plan of Care: evaluation only-no follow up skilled ST needs Patient will be discontinued from speech therapy when no further skilled needs are identified in this setting. PLAN: ST Frequency: Discontinue therapy services Reasons Inpatient Therapy Services Discontinued: Patient appears safe and appropriate re: communication, cognition, and swallow function with the ability to return to a baseline level of function Results and Recommendations Discussed With: Patient TREATMENT INTERVENTIONS: Therapy Diagnosis: Dysarthria following cerebral infarction;Dysphagia following cerebral infarction;Other speech and language deficits following unspecified cerebrovascular disease Interventions Provided: Speech Language Eval (06882);Clinical Swallow Evaluation (94947) $ Speech Language Eval (59495) Billed Units: 1 unit $ Clinical Swallow Evaluation (59263) Billed Units: 1 unit Training and education provided in: Dietary Consistencies The following therapeutic skills were used:: Education on role of discipline / importance of activity, Family / caregiver counseling / training, Teach-back for confirmation of education provided Skilled Treatment Time (minutes): 25 Home Environment Patient Lives With: Self/Alone Prior Swallowing Function/Diet Textures: Regular Consistency;Thin Liquids IDDSI Level 0 Please see discipline specific clinical documentation flowsheet for complete details for this therapy evaluation/treatment. SIGNATURE: Ramona Hernandez CCC-[employer] PLM CONSULTANT PATIENT NAME: Bradley Matos DATE: March 26, 2022 TIME: 3:02 PM [facility] THERAPY NT HNO ID: [id number] Author: Kaci Parra PT Service: Physical Therapy Author Type: Physical Therapist Type: Therapy (PT/OT/Speech/Resp) Filed: 03/26/2022 1:28 PM Note Text: Physical Therapy Evaluation SERVICE DATE: 03/26/2022 SERVICE TIME: 1050 to 1135 ROOM: [place] [address] Recommended Discharge Disposition: Acute Rehab Recommended Discharge Disposition Comments: Pt with recent CVA with reported improvements in deficts, now with evolving symtoms and worsening L side deficits resulting in pt in ability to effectively use L side and transfer and ambulate at this time. Pt with good motivation and demonstrates ability to tolerate intense therapy. Recommended Discharge Disposition Due to: Patient requires an active, intensive rehabilitation therapy program due to:;ADL impairment resulting in caregiver dependence;anticipate community discharge/previous community dweller;body-weight supported gait training needs;caregiver training needs;complex equipment needs;decline in functional status requiring daily skilled care;deficits affecting dominant side;intact cognition;less than 3/5 weakness noted in:;distal LE;distal UE;pelvic girdle;shoulder girdle;ongoing intervention of multiple therapy disciplines Recommended Discharge Equipment: No equipment needs anticipated PT 6 Clicks Score: 8 Precautions/Activity Restrictions: Fall Risk;Lines/Tubes/Drains Current Hospital Course: Pt admitted 03/25/22 with left sided weakness. Pending MRI. Diagnosed with acute stroke 02/28 at [facility] + COVID transferred to rehab. Admitted to [facility] 03/08 with +COVID, and discharged to [facility] for rehab. On 03/20/22 patient experienced increased weakness in left side and fell onto the floor, reported worsened LUE/LLE numbness and tingling since fall. Reason for Hospital Admission: new associated numbness and tingling to left face, LUE, LLE, nausea, headache, neck pain, upper mid back pain, and left shoulder pain. Relevant Past Medical History: scabes, fibromyalgia, morbid obesity, PTSD, anxiety, Sjogren's syndrome, fatigue, GI problems, CVA, HLP, COVID-19 with hypoxic respiratory failure Response to Therapy Interventions: Good participation in activities, Needs frequent redirection or re-instruction, Requires additional time to complete activities, Slow progression with functional activities/skills Assessment Comments: Pt is moderate to maximal assist X 2 with activity with pt putting forth good effort and participating with all activity as able. Pt requires extended time to complete activity, complaints of generalized pain as well and neck pain with radicular symptoms in LUE. Pt with noted LUE and LLE numbness and weakness affecting ability to perform functional activity. Continue skilled needs due to: Continued monitoring of vital signs during mobility required, Family training required, Functional mobility/skill impairments, Safety concerns Physical Therapy Problem List: Pain;Impaired Self Care;Decreased Activity Tolerance;Decreased Range Of Motion;Decreased Strength;Functional Mobility Impairment;Balance Impaired;Sensory Deficit Treatment Interventions: Education;Joint Mobility;Strengthening; Functional Mobility Training;Balance Training Plan for next visit: Bed mobility, Gait training, Sit to Stand Transfers, Walker Training Home Environment Patient Lives With: Self/Alone (admitted from SNF) Assistance Available: 24 Hour Tub/Shower Type: tub/shower Laundry: basement laundry Equipment Owned: Wheeled Walker;Rollator Prior Functional Level: Required Assistance Assistance Required With: Cleaning;Laundry;Meals; Medication Management;Self Care Prior Functional Level Comments: Prior to CVA 02/28/2022: ind without device. difficulty with transfers due to bilateral knee pain, ascends/descends stairs laterally. 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 At rehab post CVA, had a fall 03/20 and has gotten up at rehab once since then and landed on [facility] due to L side weakness. Was ambulating independently at rehab with a walker up until 03/20 Patient Report: Pt agreeable to PT, ok per nursing to treat. Pt states, I was moving fine, now I can't move anymore." CURRENT FUNCTIONAL STATUS: Most recent performance Current Functional Mobility Assist Level Additional Information Rolling Maximal Assistance;Additional Information X 3 trials, use of draw pad to assist, requries increased assist toward R, complaints of increased L hip pain with rolling Supine to Sit Moderate Assistance;Modified Independent;Additional Information assist with LLE management, use of bed rails, HOB elevated Sit to Supine Moderate Assistance;Additional Information X 2 assist, assist with BLE management, pt with good use of bed rails to assist with positioning in bed. Maximal time to complete repositioning in bed Scooting Maximal Assistance;Additional Information of draw pad to progre (more content not included)... [facility] THERAPY NT HNO ID: [id number] Author: Yvonne Everett OTR/L Service: Occupational Therapy Author Type: Occupational Therapist Type: Therapy (PT/OT/Speech/Resp) Filed: 03/26/2022 1:14 PM Note Text: Occupational Therapy Evaluation SERVICE DATE: 03/26/2022 SERVICE TIME: 1125 to 1155 ROOM: [place] [address] Recommended Discharge Disposition: Acute Rehab Recommended Discharge Disposition Comments: Patient is significantly below functional baseline and could benefit from intensive rehabiliation for optimal benefit. Recommended Discharge Disposition Due to: Patient requires an active, intensive rehabilitation therapy program due to:;Patient requires daily, facility-based rehabilitation from at least one discipline due to:;ADL impairment resulting in caregiver dependence;anticipate community discharge/previous community dweller;coordination deficits;decline in functional status requiring daily skilled care;deficits affecting dominant side;high level balance deficits;distal UE;shoulder girdle;ongoing intervention of multiple therapy disciplines OT 6 Clicks Score: 10 Precautions/Activity Restrictions: Fall Risk;Lines/Tubes/Drains Current Hospital Course: Pt admitted 03/25/22 with left sided weakness. Pending MRI. Diagnosed with acute stroke 02/28 at [facility] + COVID transferred to rehab. Admitted to [facility] 03/08 with +COVID, and discharged to [facility] for rehab. On 03/20/22 patient experienced increased weakness in left side and fell onto the floor, reported worsened LUE/LLE numbness and tingling since fall. Reason for Hospital Admission: new associated numbness and tingling to left face, LUE, LLE, nausea, headache, neck pain, upper mid back pain, and left shoulder pain. Relevant Past Medical History: scabes, fibromyalgia, morbid obesity, PTSD, anxiety, Sjogren's syndrome, fatigue, GI problems, CVA, HLP, COVID-19 with hypoxic respiratory failure Response to Therapy Interventions: Good participation in activities, Coping deficits, Multiple ongoing medical issues, Pain, Requires additional time to complete activities Assessment Comments: Patient willing to participate as able. Patient limited by left hemiparesis, decreased functional balance, low self efficacy, and pain (knee, hip, and neck). Continue skilled needs due to: Coping deficits, Family training required, Safety concerns, Functional impairment Occupational Therapy Problem List: Pain;Safety Deficits;Impaired Self Care;Decreased Activity Tolerance;Decreased Range Of Motion;Decreased Strength;Functional Mobility Impairment;Balance Impaired;Sensory Deficit;Impaired Fine Motor Skills Cognition/Communication Deficits Orientation Deficits: (AO x4) Attention Deficits: Distractible Psychosocial Deficit: PTSD, anxiety, emotional over mother's (during COVID lockdown) Treatment Interventions: Education;Self Care / Home Management;Joint Mobility;Strengthening; Balance Training;Neuromuscular Re-education Plan for next visit: Bathing training, Coping, Dressing training, Grooming training, Sit to stand transfers, Sitting balance, Sitting tolerance Home Environment Patient Lives With: Self/Alone (admitted from SNF) Assistance Available: 24 Hour Tub/Shower Type: tub/shower Laundry: basement laundry Equipment Owned: Wheeled Walker;Rollator Prior Functional Level: Required Assistance Assistance Required With: Cleaning;Laundry;Meals; Medication Management;Self Care Prior Functional Level Comments: Prior to CVA 02/28/2022: ind without device. difficulty with transfers due to bilateral knee pain, ascends/descends stairs laterally. 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 Was ambulating independently at rehab with a walker up until 03/20 Patient Report: "When you move my arm like that it makes my neck feel hot" CURRENT FUNCTIONAL STATUS: Most recent performance Current Activities of Daily Living Assist Level Additional Information Feeding Set Up;Additional Information pt would have to use non dominant right hand, unable to use left hand functionally for feeding Grooming Moderate Assistance Bathing Upper Body Moderate Assistance Bathing Lower Body Total Assistance Dressing Upper Body Moderate Assistance Dressing Lower Body Total Assistance Toileting Total Assistance Functional Mobility Assist Level Additional Information Rolling Supine to Sit Sit to Supine Scooting Maximal Assistance;Additional Information with use of mandie pad Sit to Stand Total Assistance;Additional Information attempted with limited success Stand to Sit Bed to Chair Toilet/Commode Shower Functional Mobility Blank ford indicate activity not attempted Balance: Static Sitting;Dynamic Sitting;Static Standing;Dynamic Standing Static Sitting Balance: Good Patient able to maintain balanc (more content not included)... Normal [facility] THERAPY NT HNO ID: [id number] Author: Ramona Hernandez CCC-[employer]M CONSULTANT Service: Speech/Swallow Author Type: Speech Language Pathologist Type: Therapy (PT/OT/Speech/Resp) Filed: 03/26/2022 11:52 AM Note Text: [facility]ER[facility] SPEECH THERAPY MISSED VISIT NOTE SERVICE DATE: 03/26/2022 SERVICE TIME: 1100 Attempted patient therapy visit, but was unable for the following reason(s): -ST reviewed pt's chart; spoke with RN Joellen who voices no concerns with pt's speech/swallowing at this time -PT Kaci at pt's bedside and reports just initiating PT evaluation; reports OT will be coming after PT evaluation to assess patient -ST will re-attempt to complete ST swallow/speech eval pending pt availability/scheduling SIGNATURE: Ramona Hernandez CCC-[employer] PLM CONSULTANT PATIENT NAME: Bradley Matos DATE: March 26, 2022 TIME: 11:50 AM [facility] ALLIED HEALTHon 03-25-2022 ALLIED HEALTH HNO ID: [id number] Author: RT Jeffry(Regi) Service: Radiology Author Type: Technologist Type: Allied Health Filed: 03/25/2022 9:56 PM Note Text: Radiology Service Progress Note PATIENT NAME: Bradley Matos DATE OF SERVICE: March 25, 2022 TIME: 9:56 PM PATIENT IDENTITY VERIFICATION COMPLETED USING TWO (2) IDENTIFIERS: Name and Date of confirmed by patient verbally. FALL SCREENING: Has the patient had 2 falls in the last year or 1 fall with injury or currently using an Ambulatory Assistive Device (Walker, Cane, Wheelchair, Crutches, etc.)? Inpatient: Screened on floor PATIENT GENDER DATA: Female. status: : No status: NO. PATIENT RELEVANT IMPLANT DATA REVIEWED: Not Applicable RADIOLOGY DEPARTMENT: General X-ray: Exam(s) Completed: Pelvis X-Ray: Pelvis with Hip Left PERIPHERAL IV DATA: Not applicable SIGNED BY: RT Jeffry(R) March 25, 2022 9:56 PM [facility] Basic metabolic 2000 panelon 03-25-2022 Anion gap [Moles/Vol] 12 mmol/L Normal - [facility] on [facility] Comment on above: Order Comment: Speci men Type: BLOOD SPECIMEN Ordering Facility: [facility] Address: [address] [place] [phone] Performed By: #### 2 4321-2 #### [facility] CLIA [id number] [address] [place] [address] [place] Calcium [Mass/Vol] 9.4 mg/dL Normal 8.5-10.2 [facility] Comment on above: Order Comment: Speci men Type: BLOOD SPECIMEN Ordering Facility: [facility] Address: [address] [place] [address] Performed By: #### 2 4321-2 #### [facility] CLIA [id number] [address] [place] [address] [place] Chloride [Moles/Vol] 98 mmol/L Normal 97-105 [facility] Comment on above: Order Comment: Speci men Type: BLOOD SPECIMEN Ordering Facility: [facility] Address: [address] [place] [address] Performed By: #### 2 4321-2 #### [facility] CLIA [id number] [address] [place] CO2 [Moles/Vol] 29 mmol/L Normal 22-30 [facility] Comment on above: Order Comment: Speci men Type: BLOOD SPECIMEN Ordering Facility: [facility] Address: [address] [place] [address] Performed By: #### 2 4321-2 #### [facility] CLIA [id number] [address] [place], [place] [id number] [place] [address] [place] Creatinine [Mass/Vol] 0.70 mg/dL Normal 0.58-0.96 [facility] Comment on above: Order Comment: Speci men Type: BLOOD SPECIMEN Ordering Facility: [facility] Address: [address] [place] [address] Performed By: #### 2 4321-2 #### [facility] CLIA [id number] [address] [place] ESTIMATED GLOMERULAR FILTRATION RATE 103 mL/min/1.73m??? Normal >=60 [facility] Comment on above: Order Comment: Speci men Type: BLOOD SPECIMEN Ordering Facility: [facility] Address: [address] [place] [address] Result Comment: Cecille mated Glomerular Filtration Rate (eGFR) is calculated using the 2020 CKD-EPI creatinine equation. This equation utilizes serum creatinine, sex, and age as parameters. The creatinine assay has traceable calibration to isotope dilution-mass spectrometry. Refer to KDIGO guidelines for clinical interpretation. In patients with unstable renal function, e.g. those with acute kidney injury, the eGFR may not accurately reflect actual GFR. Performed By: #### 2 4321-2 #### [facility] CLIA [id number] [address] [place] [address] [place] Glucose [Mass/Vol] 180 mg/dL High 74-99 [facility] Comment on above: Order Comment: Susie santizo Type: BLOOD SPECIMEN Ordering Facility: [facility] Address: [address] [place], [place] [id number] Result Comment: The [place] Diabetes Association (ADA) provides guidance for cutoff values for fasting glucose and random glucose. The ADA defines fasting as no caloric intake for at least 8 hours. Fasting plasma glucose results between 100 to 125 mg/dL indicate increased risk for diabetes (prediabetes). Fasting plasma glucose results greater than or equal to 126 mg/dL meet the criteria for diagnosis of diabetes. In the absence of unequivocal hyperglycemia, results should be confirmed by repeat testing. In a patient with classic symptoms of hyperglycemia or hyperglycemic crisis, random plasma glucose results greater than or equal to 200 mg/dL meet the criteria for diagnosis of diabetes. Reference: Standards of Medical Care in Diabetes 2016, [place] Diabetes Association. Diabetes Care. 2016.39(Suppl 1). Performed By: #### 2 4321-2 #### [facility] CLIA [id number] [address] [place] [address] [place] Potassium [Moles/Vol] 4.1 mmol/L Normal 3.7-5.1 [facility] Comment on above: Order Comment: Susie santizo Type: BLOOD SPECIMEN Ordering Facility: [facility] Address: [address] [place] [phone] Performed By: #### 2 4321-2 #### [facility] CLIA [id number] [address] [place] [address] [place] Sodium [Moles/Vol] 139 mmol/L Normal 136-144 [facility] Comment on above: Order Comment: Speci men Type: BLOOD SPECIMEN Ordering Facility: [facility] Address: [address] [place] [address] Performed By: #### 2 4321-2 #### [facility] CLIA [id number] [address] [place] [address] [place] Urea nitrogen [Mass/Vol] 10 mg/dL Normal 7-21 [facility] Comment on above: Order Comment: Speci men Type: BLOOD SPECIMEN Ordering Facility: [facility] Address: [address] [place] [address] Performed By: #### 2 4321-2 #### [facility] CLIA [id number] [address] OF [facility] CBC W Auto Differential pane l (Bld)on 03-25-2022 Basophils (Bld) [#/Vol] 10*3/uL Normal <0.11 [facility] Comment on above: Order Comment: Speci men Type: BLOOD SPECIMEN Ordering Facility: [facility] Address: [address] [place] [address] Performed By: #### 2 4321-2 #### [facility] CLIA [id number] [address] [place] [address] Basophils/100 WBC (Bld) 0.2 % Normal [facility] Comment on above: Order Comment: Speci men Type: BLOOD SPECIMEN Ordering Facility: [facility] Address: [address] [place] [address] Performed By: #### 2 4321-2 #### [facility] CLIA [id number] [address] Differential cell count method Nom (Bld) Auto Normal [facility] Comment on above: Order Comment: Speci men Type: BLOOD SPECIMEN Ordering Facility: [facility] Address: [address] [place] [address] Performed By: #### 2 4321-2 #### [facility] CLIA [id number] [address] [place] [address] [place] Eosinophils (Bld) [#/Vol] 0.10 10*3/uL Normal <0.46 [facility] Comment on above: Order Comment: Speci men Type: BLOOD SPECIMEN Ordering Facility: [facility] Address: [address] [place] [address] Performed By: #### 2 4321-2 #### [facility] CLIA [id number] [address] [place] [address] [place] Eosinophils/100 WBC (Bld) 1.1 % Normal [facility] Comment on above: Order Comment: Speci men Type: BLOOD SPECIMEN Ordering Facility: [facility] Address: [address] [place] [address] Performed By: #### 2 4321-2 #### [facility] CLIA [id number] [address] [place] Erythrocyte distribution width (RBC) [Ratio] 15.7 % High 11.5-15.0 [facility] Comment on above: Order Comment: Speci men Type: BLOOD SPECIMEN Ordering Facility: [facility] Address: [address] [place] [address] Performed By: #### 2 4321-2 #### [facility] CLIA [id number] [address] [place] Hematocrit (Bld) [Volume fraction] 40.3 % Normal 36.0-46.0 [facility] Comment on above: Order Comment: Speci men Type: BLOOD SPECIMEN Ordering Facility: [facility] Address: [address] [place] [address] Performed By: #### 2 4321-2 #### [facility] CLIA [id number] [address] [place] [address] [place] Hemoglobin (Bld) [Mass/Vol] 12.4 g/dL Normal 11.5-15.5 [facility] Comment on above: Order Comment: Speci men Type: BLOOD SPECIMEN Ordering Facility: [facility] Address: [address] [place] [address] Performed By: #### 2 4321-2 #### [facility] CLIA [id number] [address] [place], [place] [id number] [place] [address] [place] Lymphocytes (Bld) [#/Vol] 1.12 10*3/uL Normal 1.00-4.00 [facility] Comment on above: Order Comment: Speci men Type: BLOOD SPECIMEN Ordering Facility: [facility] Address: [address] [place] [address] Performed By: #### 2 4321-2 #### [facility] CLIA [id number] [address] [place] [address] Lymphocytes/100 WBC (Bld) 12.8 % Normal [facility] Comment on above: Order Comment: Speci men Type: BLOOD SPECIMEN Ordering Facility: [facility] Address: [address] [place] [address] Performed By: #### 2 4321-2 #### [facility] CLIA [id number] [address] [place] [address] [place] MCH (RBC) [Entitic mass] 28.7 pg Normal 26.0-34.0 [facility] Comment on above: Order Comment: Speci men Type: BLOOD SPECIMEN Ordering Facility: [facility] Address: [address] [place] [address] Performed By: #### 2 4321-2 #### [facility] CLIA [id number] [address] [place] MCHC (RBC) [Mass/Vol] 30.8 g/dL Normal 30.5-36.0 [facility] Comment on above: Order Comment: Speci men Type: BLOOD SPECIMEN Ordering Facility: [facility] Address: [address] [place] [address] Performed By: #### 2 4321-2 #### [facility] CLIA [id number] [address] [place] [address] [place] MCV (RBC) [Entitic vol] 93.3 fL Normal 80.0-100.0 [facility] Comment on above: Order Comment: Speci men Type: BLOOD SPECIMEN Ordering Facility: [facility] Address: [address] [place] [address] Performed By: #### 2 4321-2 #### [facility] CLIA [id number] [address] [place] [address] [place] Monocytes (Bld) [#/Vol] 0.59 10*3/uL Normal <0.87 [facility] Comment on above: Order Comment: Speci men Type: BLOOD SPECIMEN Ordering Facility: [facility] Address: [address] [place] [address] Performed By: #### 2 4321-2 #### [facility] CLIA [id number] [address] [place] Monocytes/100 WBC (Bld) 6.8 % Normal [facility] Comment on above: Order Comment: Speci men Type: BLOOD SPECIMEN Ordering Facility: [facility] Address: [address] [place] [address] Performed By: #### 2 4321-2 #### [facility] CLIA [id number] [address] [place] [address] [place] Neutrophils (Bld) [#/Vol] 6.89 10*3/uL Normal 1.45-7.50 [facility] Comment on above: Order Comment: Speci men Type: BLOOD SPECIMEN Ordering Facility: [facility] Address: [address] [place] [address] Performed By: #### 2 4321-2 #### [facility] CLIA [id number] [address] [place] [address] [place] Neutrophils/100 WBC (Bld) 79.1 % Normal [facility] Comment on above: Order Comment: Speci men Type: BLOOD SPECIMEN Ordering Facility: [facility] Address: [address] [place] [address] Performed By: #### 2 4321-2 #### [facility] CLIA [id number] [address] [place], [place] [id number] [place] [address] [place] Platelet mean volume (Bld) [Entitic vol] 9.7 fL Normal 9.0-12.7 [facility] Comment on above: Order Comment: Speci men Type: BLOOD SPECIMEN Ordering Facility: [facility] Address: [address] [place] [address] Performed By: #### 2 4321-2 #### [facility] CLIA [id number] [address] [place] [address] [place] Platelets (Bld) [#/Vol] 217 10*3/uL Normal 150-400 [facility] Comment on above: Order Comment: Speci men Type: BLOOD SPECIMEN Ordering Facility: [facility] Address: [address] [place] [address] Performed By: #### 2 4321-2 #### [facility] CLIA [id number] [address] [place] [address] [place] RBC (Bld) [#/Vol] 4.32 10*6/uL Normal 3.90-5.20 [facility] Comment on above: Order Comment: Speci men Type: BLOOD SPECIMEN Ordering Facility: [facility] Address: [address] [place], [place] [id number] Performed By: #### 2 4321-2 #### [facility] CLIA [id number] [address] [place] [address] [place] WBC (Bld) [#/Vol] 8.72 10*3/uL Normal 3.70-11.00 [facility] Comment on above: Order Comment: Speci men Type: BLOOD SPECIMEN Ordering Facility: [facility] Address: [address] [place] [address] Performed By: #### 2 4321-2 #### [facility] CLIA [id number] [address] [place] [address] [facility] CNDSon 03-25-2022 CNDS HNO ID: [id number] Author: Melba Gutierrez DO Service: Hospital Medicine Author Type: Physician Type: Discharge Summary Filed: 04/02/2022 9:21 AM Note Text: DISCHARGE SUMMARY PATIENT NAME: Bradley Matos Code Status: Not on file Highest Readmission Risk Score: 18 The 30 day readmissions risk score is derived from an internally validated risk model which evaluates patient level characteristics, utilization history, medication orders and lab results up until the day of discharge. Patients with a score of 40 or above are considered highest risk for readmission. Specific patient level drivers will be listed at the bottom of the summary. DATE OF ADMISSION: 03/13/22 DATE OF DISCHARGE: 03/25/22 DISCHARGE DISPOSITION: ed OF [facility] SUMMARY OF HOSPITAL COURSE: Pt admitted to [facility] for rehab after hospitalization at [facility] after CVA affecting her left side and for covid 19. She was in isolation at this facility for the appropriate amount of time. She was not on supplemental oxygen while here. She participated in therapy, but was experiencing residual left sided weakness, causing delay in her recovery. On 03/25/22, pt developed weakness and numbness of her left side. She was transported to the ED of [facility] for further evaluation and transfer to acute care facility for evaluation and treatment. Additional Provider to Provider Information: Principal Problem: Aftercare POA: Yes Assessment AND Plan: pt here for PT after hospitalization at [facility] for left sided weakness after CVA. Active Problems: Generalized weakness POA: Yes Assessment AND Plan: pt participated in PT/OT, but experienced residual left sided weakness, delaying her recovery COVID-19 POA: Yes Assessment AND Plan: pt was in isolation for the appropriate time. She did not need supplemental oxygen while here. Recent cerebrovascular accident (CVA) POA: Yes Assessment AND Plan: affecting left side Suicidal ideation POA: Yes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 SYNOVIAL BX SPX Left 01/19/15 Arthroscopy, knee - SECTION HX - UNL LAPAR WEDGE RESECTION SIGM COLON 10/30/2016 [facility] HISTORY Problem Relation Age of Onset - None Brother - None Brother - Arthritis Mother - GI Mother - Hypertension Mother - Arthritis Brother - Cancer Brother - Emphysema Father - Heart Father - Stroke Father - Headache Brother - Heart Brother - Heart Brother - Psychiatry Brother - Seizures Brother Social History Tobacco Use - Smoking status: Never Smoker - Smokeless tobacco: Never Used Substance and Sexual Activity - Alcohol use: No - Drug use: No - Sexual activity: Never ALLERGIES Allergen Reactions - Permethrin Rash - Aspirin Other: See Comments GI Upset and Bleeding - Asa [Salicylates] GI Upset - Ciprofloxacin Itching - Darvon [Propoxyphen* Unknown - Dilaudid [Hydromorp* Other: See Comments bp crashes - Iodinated Contrast * GI Upset - Iodine Vomiting - Levofloxacin Rash - Morphine Intolerance - Nucynta [Tapentadol] Swelling Swelling in the esophagus - Propofol Shortness of Breath, Other: See Comments Blood pressure was low - Skelaxin [Metaxalon* Itching - Sulfa (Sulfonamide * GI Upset - Sulfa Dyne Unknown - Tetracycline Rash - Tramadol Other: See Comments Vomiting, disoriented, shaking - Zantac [Ranitidine * Vomiting - Prednisone Itching Review of Systems Constitutional: Positive for fatigue. Negative for chills and fever. HENT: Negative for facial swelling and trouble swallowing. Eyes: Negative for photophobia, pain, redness and visual disturbance. Respiratory: Negative for cough and shortness of breath. Cardiovascular: Negative for chest pain. Gastrointestinal: Positive for nausea. Negative for abdominal pain, diarrhea and vomiting. Genitourinary: Negative for dysuria and flank pain. Musculoskeletal: Positive for arthralgias (Left shoulder), back pain and neck pain. Skin: Negative for rash. Neurological: Positive for weakness, numbness and headaches. Negative for dizziness, syncope and facial asymmetry. Psychiatric/Behavioral: Negative for agitation and confusion. Physical Exam Vitals [03/25/22 1021] BP Pulse Temp Temp src Resp SpO2 Weight Height 132/88 (!) 92 36.7 ?C (98.1 ?F) Temporal Art 18 95 % (!) 151.5 kg (334 lb) -- Physical Exam Vitals and nursing note reviewed. Constitutional: General: She is not in acute distress. Appearance: She is not ill-appearing, toxic-appearing or di (more content not included)... Normal [facility] Fibrin D-dimer FEU (PPP) [Ma ss/Vol]on 03-25-2022 D DIMER AGE-RELATED CUTOFF 540 ng/mL FEU Normal [facility] Comment on above: Order Comment: Susie santizo Type: BLOOD SPECIMENOrdering Facility: [facility] Address: [address] [place] [address] Performed By: #### 4 8065-7 ####[facility] [id number] [place] [address] [place] HIGH SENSITIVITY TROPONIN To n 03-25-2022 HIGH SENSITIVITY STEFANIE 8 ng/L Normal <12 [facility] Comment on above: Order Comment: Susie santizo Type: BLOOD SPECIMEN Ordering Facility: [facility] Address: [address] [place] [address] Result Comment: When assessing risk for acute coronary syndromes: In patients undergoing blood draw greater than or equal to 2 hours from symptom onset, with history of very low to moderate risk and non-ischemic ECG, an initial hs-Troponin T less than 12 ng/L AND a 1 hour delta hs-Troponin T less than 3 ng/L should be considered very low risk for 30 day MACE. Performed By: #### 2 4321-2 #### [facility] CLIA [id number] [address] [place] [address] [facility] OF [place] HIGH SENSITIVITY STEFANIE 8 ng/L Normal <12 [facility] Comment on above: Order Comment: Speci men Type: BLOOD SPECIMEN Ordering Facility: [facility] Address: [address] [place] [phone] Result Comment: When assessing risk for acute coronary syndromes: In patients undergoing blood draw greater than or equal to 2 hours from symptom onset, with history of very low to moderate risk and non-ischemic ECG, an initial hs-Troponin T less than 12 ng/L AND a 1 hour delta hs-Troponin T less than 3 ng/L should be considered very low risk for 30 day MACE. Performed By: #### 2 4321-2 #### [facility] CLIA [id number] [address] [place] [address] [place] HISTORY PHYSICALon HISTORY PHYSICAL HNO ID: [id number] Author: Deonte Douglas APRN.CARPET SEWER Service: Hospital Medicine Author Type: Nurse Practitioner Type: HANDP Filed: 03/25/2022 9:04 PM Note Text: Attestation signed by Dio Mantilla MD at 04/21/2022 4:24 PM I reviewed the history and physical obtained and documented by the CAROLA and I personally participated in the lynn components. Dio Mantilla MD DEPARTMENT OF HOSPITAL MEDICINE HISTORY AND PHYSICAL EXAM SERVICE DATE: 03/25/2022 Code Status: Not on file SERVICE TIME: 7:16 PM Primary Care Physician: Didier Hicks MD NIGHT AND WEEKEND COVERAGE: [facility] COVERAGE: Days: [phone], please page attending physician. Nights: [phone], please page [place] [facility] Night coverage pager [phone]. Subjective CHIEF COMPLAINT: weakness HPI: This is a 56 year old female who presents with weakness, symptoms began 02/28 are constant in nature and now newly associated w/ numbness and tingling to left face, LUE, LLE, nausea, headache, neck pain, upper mid back pain and left shoulder pain. She states that symptoms initially began 02/28 evaluated at [facility] for slurred speech subsequently was transferred to [facility] and was diagnosed with an acute stroke, patient unable to state location. During the course of hospitalization she notes that she was COIVD + and was transferred to the rehab facility, w/residual left sided weakness, however she left A on 03/08. She has not yet had neurology follow-up. She returned home but was not feeling well and presented to [facility] on 03/08 where she was found to be COVID-19 (+), she was treated w/ 5 days of dex (5 days at discharge), and remdesivir d/t NC oxygen requirement and discharged to rehab at [facility]. She notes that she was dong well at the rehab facility and was able to ambulate independently with assistive devices to the bathroom. However on 03/20 while ambulating back to bed from the bathroom she experienced weakness to her Left side and was unable to hold her weight and fell to the floor. She denies any LOC or hitting her head at the time of the fall. She states since the fall the weakness has become so much that she is now unable to overcome gravity to her left side and endorses numbness and tingling to the LUE/LLE which began on Friday. She also c/o left hip pain from the fall. Denies CP, SOB, denies any N/V/diarrhea/conspiatio n or urinary issues. IN ED ([facility]): CT brain: No acute intracranial abnormalities. No significant change from previous imaging. Chronic right caudate nucleus lacunar infarct. Chronic anterior medial right thalamic infarct. Mild degree supratentorial chronic microvascular ischemic changes posterior centrum semiovale as well as posterior body right side of the corpus callosum. CT cervical spine: No CT evidence of acute osseous abnormality of the cervical or thoracic spine. No acute bone destruction, osseous lesion or fracture.C4-C5 and lesser degree C5-6 and C6-7 levels: Moderate to severe left foraminal stenosis secondary to uncovertebral hypertrophy. CT thoracic spine: as above CXR: No acute radiographic traumatic abnormality. XR shoulder: No acute traumatic abnormality UA: (-) BMP: glucose: 180 CBC: High sensitivity trop: COVID-19: (+) 650 mg tylenol EKG: ST, HR: 105 PAST MEDICAL HISTORY Diagnosis Date - Anxiety - Essential hypertension 12/16/2018 - Fatigue chronic fatigue syndrome - Fibromyalgia - GI problem UC and prior ulcers - Medial meniscus tear 12/19/2014 - Morbid obesity (HCC) - Post traumatic stress disorder (PTSD) - PTSD (post-traumatic stress disorder) 03/20/2022 - Scabies - Sjogren's syndrome (HCC) PAST SURGICAL HISTORY Procedure Laterality Date - ARTHROSCOPY KNEE DIAGNOSTIC W/WO SYNOVIAL BX SPX Left 01/19/15 Arthroscopy, knee - SECTION HX - UNL LAPAR WEDGE RESECTION SIGM COLON 10/30/2016 Maynor Randall FAMILY HISTORY Problem Relation Age of Onset - None Brother - None Brother - Arthritis Mother - GI Mother - Hypertension Mother - Arthritis Brother - Cancer Brother - Emphysema Father - Heart Father - Stroke Father - Headache Brother - Heart Brother - Heart Brother - Psychiatry Brother - Seizures Brother Social History Tobacco Use - Smoking status: Never Smoker - Smokeless tobacco: Never Used Substance Use Topics - Alcohol use: No - Drug use: No PRIOR TO ADMISSION MEDICATIONS: dicyclomine (BENTYL) 20 mg tablet, Take 20 mg by mouth every 6 hours as needed. , Disp: , Rfl: , 03/25/2022 at Unknown time lidocaine (SALONPAS) 4 % patch, Apply 1 application as directed once daily., Disp: , Rfl: , 03/25/2022 at Unknown time amLODIPine (NORVASC) 10 mg tablet, Take 10 mg by mouth once daily., Disp: , Rfl: , 03/25/2022 at Unknown (more content not included)... Normal [facility] HbA1c (Bld)on 03-25-2022 Average glucose Estimated from glycated hemoglobin (Bld) [Mass/Vol] 126 mg/dL Normal [facility] Comment on above: Order Comment: Susie sukhdev Type: BLOOD SPECIMENOrdering Facility: [facility] Address: [address] [place] [address] Result Comment: eAG: (Estimated average glucose) is a calculated value from HgbA1c and is cash posting representative of the average blood glucose level in the last 2-3 month period. Performed By: #### 5 5454-3 ####[facility] [id number] [place] [address] [place] [facility] HbA1c (Bld) [Mass fraction] 6.0 % High 4.3-5.6 [facility] Comment on above: Order Comment: Susie santizo Type: BLOOD SPECIMENOrdering Facility: [facility] Address: [address] [place] [address] Result Comment: Amer ican Diabetes Association guidelines indicate that patients with HgbA1c in the range 5.7-6.4% are at increased risk for development of diabetes, and intervention by lifestyle modification may be beneficial. HgbA1c greater or equal to 6.5% is considered diagnostic of diabetes. Performed By: #### 5 5454-3 ####[facility] [id number] [address] OF [place] NURSING PROGon 03-25-2022 NURSING PROG HNO ID: [id number] Author: Joelle Johnson RN Service: Nursing Author Type: Registered Nurse Type: Nursing Progress Note Filed: 03/25/2022 8:43 AM Note Text: Pt c/o increased weakness this am with numbness AND tingling on the left side" of her body. Pt states this feeling started last Friday and has continued throughout the weekend and today. Upon AM assessment today, pt cannot squeeze left hand, nor can she push/pull her left leg. Pt also c/o's of neck pain. Vital signs remain stable. Will notify Dr Gutierrez of above noted assessment Normal [facility] SARS-CoV-2 RNA Resp Ql SAVANNAH+p robeon 03-25-2022 SARS-CoV-2 (COVID-19) RNA SAVANNAH+probe Ql (Resp) COVID 19 RESULT: SARS-CoV-2 (Agent of COVID-19) Detected by RT-PCR or equivalent method. This test has been authorized by FDA under an Emergency Use Authorization (EUA). Normal [facility] Comment on above: Performed By: #### 9 4500-6 ####[facility] LABCLIA [id number] [place] [address] [facility] SOCIAL WORKon 03-25-2022 SOCIAL WORK HNO ID: [id number] Author: ANH Dunaway Service: Social Work Author Type: Engine Lathe Set Up Operator Tool Type: Social Work Filed: 03/25/2022 3:46 PM Note Text: SOCIAL WORK PROGRESS NOTE Name: Bradley Matos Patient sent to ED. ROMANA faxed Medicaid application, which patient had completed, to [facility] [employer]. Mailed patient's Financial Assistance (HCAP) application to [facility]. ROMANA had g Producer Arborist Manager take a copy of patient's Medicaid and HCAP Applications to patient and to let patient know they have been sent. Signature: No Greene Date: March 25, 2022 Time: 3:41 PM Normal [facility] THERAPY NTon 03-25-2022 THERAPY NT HNO ID: [id number] Author: ADELAIDE Allen/Tatum Service: Occupational Therapy Author Type: Occupational Therapist Type: Therapy (PT/OT/Speech/Resp) Filed: 03/26/2022 10:54 AM Note Text: Summary: OT Discharge Note Occupational Therapy Snf Facility Discharge Summary ROOM: [place] [address] Date of Discharge: 03/25/2022 This patient was transferred to the [facility] ED and subsequently discharged to [facility] due to change in medical condition. Pt is discharged from skilled OT treatment at this time; see below for pt's status prior to change in medical condition. OT goals not met due to change in medical condition with transfer to outside hospital. OT 6 Clicks Score: 19 GOAL REVIEW: Patient /Caregiver Goals: Go Home Goals: Patient will demonstrate understanding of importance of mobility during hospital stay and resolve all self-care, cognitive and/or coping needs identified. Able to perform HEP with: Independent Grooming with: Independent Upper Body Bathing with: Independent Upper Body Dressing with: Independent Lower Body Bathing with: Modified Independent Lower Body Dressing with: Modified Independent Toilet Hygiene with: Modified Independent Toilet Transfer with: Modified Independent Home Management Skills with: Modified Independent Demonstrate Competence With Education with: Independent CURRENT FUNCTIONAL STATUS: Most recent performance Current Activities of Daily Living Assist Level Additional Information Feeding Independent Grooming Set Up Bathing Upper Body Minimal Assistance;Additional Information Bathing Lower Body Minimal Assistance;Additional Information Dressing Upper Body Set Up Dressing Lower Body Minimal Assistance;Additional Information Toileting Minimal Assistance;Additional Information Instrumental Activities of Daily Living Assist Level Additional Information Meal/Beverage Prep Minimal Assistance Cleaning Moderate Assistance Laundry Moderate Assistance Medication Management with Strategies Functional Mobility Assist Level Additional Information Rolling Modified Independent;Contact Guard Assistance Supine to Sit Stand By Assistance Sit to Supine Stand By Assistance Scooting Stand By Assistance Sit to Stand Contact Guard Assistance Stand to Sit Contact Guard Assistance Bed to Chair Contact Guard Assistance Stepping Wheeled Walker;Gait Belt Toilet/Commode Contact Guard Assistance;Additional Information Shower Functional Mobility Contact Guard Assistance Wheeled Walker Blank ford indicate activity not attempted Transitions: amb. from chair to bed Balance: Static Sitting;Dynamic Sitting;Static Standing;Dynamic Standing Static Sitting Balance: Normal Patient able to maintain steady balance without handhold support Dynamic Sitting Balance: Good Patient accepts moderate challenge, able to maintain balance while picking up object off floor Static Standing Balance: Good Patient able to maintain balance without handhold support, limited postural sway Dynamic Standing Balance: Fair Patient accepts minimal challenge, able to maintain balance while turning head/trunk Activity Tolerance: Sitting Activity;Standing Activity Sitting Activity: sitting edge of bed for ADL's Sitting Activity Tolerance (in minutes): 30 Standing Activity: functional mobility Standing Activity Tolerance (in minutes): 2.5 Learning/Educational Needs: Discharge Plan;Equipment;Function al Activities/Mobility;Julia n of Care;OT In-Hospital Exercise Program;Precautions;Familia abilitation Techniques and Procedures;Safety;Self Care;Respiratory Function;Stroke Education SIGNATURE: HILDA Allen PATIENT NAME: Bradley Matos DATE: March 26, 2022 TIME: 10:52 AM Normal [facility] THERAPY NT HNO ID: [id number] Author: HILDA Allen Service: Occupational Therapy Author Type: Occupational Therapist Type: Therapy (PT/OT/Speech/Resp) Filed: 03/25/2022 2:59 PM Note Text: OCCUPATIONAL THERAPY MISSED VISIT SERVICE DATE: 03/25/2022 SERVICE TIME: 1000 to 1001 ROOM: [place] [address] Patient not seen due to Illness (Pt was being transferred to [facility] ED due to change in medical condition). SIGNATURE: HILDA Allen PATIENT NAME: Bradley Matos DATE: March 25, 2022 TIME: 2:59 PM Normal [facility] THERAPY NT HNO ID: [id number] Author: Radha Horowitz PTA Service: Physical Therapy Author Type: Supervisor Cabinetmaker Type: Therapy (PT/OT/Speech/Resp) Filed: 03/25/2022 11:55 AM Note Text: Attestation signed by Jody Ireland PT at 03/25/2022 1:28 PM I reviewed and agree with the documentation corresponding to this therapy visit. SIGNATURE: Jody Ireland, PAULETTE DATE: March 25, 2022 TIME: 1:28 PM PHYSICAL THERAPY MISSED VISIT SERVICE DATE: 03/25/2022 SERVICE TIME: 1100 to 1103 ROOM: [place] [address] Patient not seen due to (out of dept trans to ED). SIGNATURE: Radha Horowitz PTA PATIENT NAME: Bradley Matos DATE: March 25, 2022 TIME: 11:55 AM Normal [facility] Urinalysis complete panel (U )on 03-25-2022 Bilirubin Ql (U) Negative Normal Negative [facility] Comment on above: Order Comment: Speci men Type: BLOOD SPECIMEN [facility] Address: [address] [place] [address] Performed By: #### 2 4321-2 #### [facility] CLIA [id number] [address] [place] [address] OF [place] Clarity (Unsp spec) Clear Normal Clear [facility] Comment on above: Order Comment: Speci men Type: BLOOD SPECIMEN [facility] Facility: [facility] Address: [address] [place] [address] Performed By: #### 2 4321-2 #### [facility] CLIA [id number] [address] OF [place] Color (U) Yellow Normal Yellow [facility] Comment on above: Order Comment: Speci men Type: BLOOD SPECIMEN [facility] Facility: [facility] Address: [address] [place] [address] Performed By: #### 2 4321-2 #### [facility] CLIA [id number] [address] Epithelial cells LM.HPF (Urine sed) [#/Area] Few Normal [facility] Comment on above: Order Comment: Speci men Type: BLOOD SPECIMEN [facility]: [facility] Address: [address] [place] [address] Performed By: #### 2 4321-2 #### [facility] CLIA [id number] [address] [place] Glucose Test strip (U) [Mass/Vol] Negative Normal Negative [facility] Comment on above: Order Comment: Speci men Type: BLOOD SPECIMEN [facility]: [facility] Address: [address] [place] [address] Performed By: #### 2 4321-2 #### [facility] CLIA [id number] [address] OF [place] Hemoglobin Ql (U) Negative Normal Negative [facility] Comment on above: Order Comment: Speci men Type: BLOOD SPECIMEN [facility]: [facility] Address: [address] [place] [address] Performed By: #### 2 4321-2 #### [facility] CLIA [id number] [address] Ketones Ql (U) Negative Normal Negative [facility] Comment on above: Order Comment: Speci men Type: BLOOD SPECIMEN [facility] Facility: [facility] Address: [address] [place] [address] Performed By: #### 2 4321-2 #### [facility] CLIA [id number] [address] OF [place] Leukocyte esterase Test strip Ql (U) Negative Normal Negative [facility] Comment on above: Order Comment: Speci men Type: BLOOD SPECIMEN [facility]: [facility] Address: [address] [place] [address] Performed By: #### 2 4321-2 #### [facility] CLIA [id number] [address] OF [place] Nitrite Ql (U) Negative Normal Negative [facility] Comment on above: Order Comment: Speci men Type: BLOOD SPECIMEN [facility]: [facility] Address: [address] [place] [address] Performed By: #### 2 4321-2 #### [facility] CLIA [id number] [address] [place] [address] [place] pH (U) 6.5 [pH] Normal 5.0-8.0 [facility] Comment on above: Order Comment: Speci men Type: BLOOD SPECIMEN [facility]: [facility] Address: [address] [place] [address] Performed By: #### 2 4321-2 #### [facility] CLIA [id number] [address] STATES OF [place] Protein (U) [Mass/Vol] Negative Normal Negative [facility] Comment on above: Order Comment: Speci men Type: BLOOD SPECIMEN [facility] Facility: [facility] Address: [address] [place] [address] Performed By: #### 2 4321-2 #### [facility] CLIA [id number] [address] [place] [address] OF [place] RBC LM.HPF (Urine sed) [#/Area] 0-3 /HPF Normal 0-3 /HPF [facility] Comment on above: Order Comment: Speci men Type: BLOOD SPECIMEN [facility]: [facility] Address: [address] [place] [address] Performed By: #### 2 4321-2 #### [facility] CLIA [id number] [address] [place] [address] OF [place] Specific gravity (U) [Rel density] 1.010 Normal 1.005-1.030 [facility] Comment on above: Order Comment: Speci men Type: BLOOD SPECIMEN [facility] Address: [address] [place] [address] Performed By: #### 2 4321-2 #### [facility] CLIA [id number] [address] [place] [address] [facility] Urobilinogen Ql (U) 1.0 EU/dL Normal 0.2-1.0 EU/dL [facility] Comment on above: Order Comment: Speci men Type: BLOOD SPECIMEN [facility] Address: [address] [place] [address] Performed By: #### 2 4321-2 #### [facility] CLIA [id number] [address] [place], [place] [id number] [facility] [place] WBC LM.HPF (Urine sed) [#/Area] 0-5 /HPF Normal 0-5 /HPF [facility] Comment on above: Order Comment: Speci men Type: BLOOD SPECIMEN [facility] Facility: [facility] Address: [address] [place] [address] Performed By: #### 2 4321-2 #### [facility] CLIA [id number] [address] [place], [place] [id number] [facility] XR CHEST 1V FRONTALon 2021 XR CHEST 1V FRONTAL * * *Final Report* * * DATE OF EXAM: Mar 25 2022 12:25PM LDX 5290 - XR CHEST 1V FRONTAL / PROCEDURE REASON: Numbness or tingling, paresthesia (Ped 0-18y) * * * * Physician Interpretation * * * * EXAMINATION: CHEST RADIOGRAPH (SINGLE VIEW AP OR PA) CLINICAL HISTORY: Numbness , tingling, paresthesia (, trauma 5 days ago, fell MQ: XC1_5 Comparison: None RESULT: Lines, tubes, and devices: None. Lungs and pleura: No consolidation. No lung mass. No pleural effusion. No pneumothorax is seen Cardiomediastinal silhouette: Normal cardiomediastinal silhouette. Other: . No evidence of displaced rib fractures IMPRESSION: No acute radiographic traumatic abnormality. Field Liability Generalist: JAIMIE Transcribe Date/Time: Mar 25 2022 12:53P Dictated by : ALEXANDER TAYLOR MD This examination was interpreted and the report reviewed and electronically signed by: ALEXANDER TAYLOR MD on Mar 25 2022 12:54PM EST [id number] Normal [facility] XR HIP 3V PELV+ AP/LAT LTon 03-25-2022 XR HIP 3V PELV+ AP/LAT LT * * *Final Report* * * DATE OF EXAM: Mar 25 2022 9:59PM MDX 5351 - XR HIP 3V PELV+ AP/LAT LT / PROCEDURE REASON: Hip pain, acute, fx suspected, initial exam * * * * Physician Interpretation * * * * EXAM: XR HIP 3V PELV+ AP/LAT LT HISTORY: Hip pain, acute, fx suspected, initial exam. VIEWS: AP and crosstable lateral left hip with AP pelvis. COMPARISON: No relevant comparison. FINDINGS: Suboptimal crosstable lateral view. No dislocation or clear evidence of acute fracture. Bilateral axial-medial hip joint space narrowing and large left hip osteophytes. Distal lumbar spondylosis. IMPRESSION: No acute fracture identified. Consider crosstable lateral view. Left hip osteoarthritis. Field Liability Generalist: JAIMIE Transcribe Date/Time: Mar 26 2022 7:02A Dictated by : Chris TOLENTINO MD This examination was interpreted and the report reviewed and electronically signed by: Chris TOLENTINO MD on Mar 26 2022 7:09AM EST [id number] [facility] XR SHLDR >/=3V AP/JUJU AP/OTH R LTon 03-25-2022 XR SHLDR >/=3V AP/JUJU AP/OTHR LT * * *Final Report* * * DATE OF EXAM: Mar 25 2022 12:25PM LDX 5252 - XR SHLDR >/=3V AP/JUJU AP/OTHR LT / PROCEDURE REASON: Shoulder pain, no prior imaging * * * * Physician Interpretation * * * * XR SHLDR >/=3V AP/JUJU AP/OTHR LT HISTORY: 56 years old Clinical information: Shoulder pain, no prior imaging Patient states she fell five days ago, TECHNIQUE: Images: XR SHLDR >/=3V AP/JUJU AP/OTHR LT Comparison: None. RESULT: Findings: No fractures or dislocations are seen. IMPRESSION: No acute traumatic abnormality Field Liability Generalist: Audicus Transcribe Date/Time: Mar 25 2022 12:50P Dictated by : ALEXANDER TAYLOR MD This examination was interpreted and the report reviewed and electronically signed by: ALEXANDER TAYLOR MD on Mar 25 2022 12:53PM EST [id number] [facility] NURSING PROGon 03-24-2022 NURSING PROG HNO ID: [id number] Author: Waleska Mcneill RN Service: Nursing Author Type: Registered Nurse Type: Nursing Progress Note Filed: 03/24/2022 9:48 PM Note Text: Nursing Progress Note Patient Name: Bradley Matos Patient Location: /[facility] Daily Note:Pt informed that there are only 7 doses of her aciphex left, with one refill left on the prescription. Pt states she will call for a refill prior to d/c, once her insurance paperwork is filled out This note was completed by: Waleska Mcneill [facility] THERAPY NTon 03-24-2022 THERAPY NT HNO ID: [id number] Author: Radha Horowitz PTA Service: Physical Therapy Author Type: Supervisor Cabinetmaker Type: Therapy (PT/OT/Speech/Resp) Filed: 03/24/2022 10:08 AM Note Text: Attestation signed by Jody Ireland PT at 03/24/2022 2:44 PM I reviewed and agree with the documentation corresponding to this therapy visit. SIGNATURE: Jody Ireland PT DATE: March 24, 2022 TIME: 2:44 PM Physical Therapy [facility] SERVICE DATE: 03/24/2022 SERVICE TIME: 0945 to 1000 ROOM: [place] [address] Recommended Discharge Disposition: Home PT Recommended Discharge Disposition Comments: Due to current clinical presentation, improved functional mobility, and good motivation/support, patient has good prognosis of returning to home in 1 week. Anticipated Discharge Needs: Equipment Recommended Discharge Equipment: (Bariatric walker) PT 6 Clicks Score: 20 Precaution/Activity Restriction Comments: Post-CVA with left sided deficits; COVID-19 isolation initiated 03/13/22 Isolation Type: Contact AND Droplet Precautions-Plus Eyewear Current Hospital Course: 03/13/22: Admitted to [facility] on 03/13 for rehabilitation in anticipation of transition to home independently. 03/08/22-03/13/22: ED/admission to [facility] with Covid-19, acute hypoxemic respiratory failure,left lower extremity weakness, general lower extremity weakness Reason for Hospital Admission: s/p CVA with LLE weakness and COVID with ARF Relevant Past Medical History: scabes, fibromyalgia,morbid obesity, PTSD, anxiety, Sjogren's syndrom, fatigue, GI problems, CVA, HLP, COVID-19 with hypoxic respiratory failure Continue skilled needs due to: Functional mobility/skill impairments Physical Therapy Problem List: Edema;Pain;Impaired Self Care;Decreased Activity Tolerance;Decreased Range Of Motion;Decreased Strength;Functional Mobility Impairment;Balance Impaired Treatment Interventions: Education;Self Care / Home Management;Energy Conservation Training;Joint Mobility;Strengthening; Functional Mobility Training;Balance Training;Neuromuscular Re-education;Edema Management Plan for next visit: (standing bal.) Home Environment Patient Lives With: Self/Alone;Other: See Comment Assistance Available: PRN Entry To Home: Stairs Number Of Stairs Into Home: 3 (2-3 steps w/o rail) Number Of Stairs To Bed/Bath: 13 steps to living area (from garage) Stairs to Bed/Bath with: Unilateral Rail Tub/Shower Type: tub/shower Laundry: basement laundry Equipment Owned: Wheeled Walker;Rollator Prior Functional Level: Within Functional Limits Prior Functional Level Comments: ind without device. has to pull up for transfers, asceds/descends stairs laterally. 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 Patient refused to sit edge of bed or stand edge of bed. Patient completed AP,glut and quad sets, and heel slides bilateral and request to do no more session ended. CURRENT FUNCTIONAL STATUS: Most recent performance Current Functional Mobility Assist Level Additional Information Rolling Stand By Assistance Supine to Sit Stand By Assistance Sit to Supine Modified Independent Scooting Stand By Assistance Sit to Stand Contact Guard Assistance Stand to Sit Contact Guard Assistance Bed to Chair Additional Information Bed To Chair Transfer Type: Stepping Bed To Chair Transfer Equipment: Wheeled Walker Toilet/Commode Contact Guard Assistance Gait Additional Information Gait Device: Wheeled Walker Gait Distance (feet): 20' 4x Stairs Curb Step Car Transfer Blank ford indicate activity not attempted General Deviations/Observations : Wide base of support;Flexed trunk posture Functional Performance Test Functional Performance Test: 30 Second Sit to Stand 30 Second Sit To Stand (count): 14 30 Second Sit To Stand Gait Device: Wheeled walker Learning/Educational Needs: Discharge Plan;Plan of Care;Changes in Plan of Care;Functional Activities/Mobility Goals for Plan of Care: Plan of Care developed with: Patient Patient /Caregiver Goals: Care For Self;Go Home Goals: Patient will demonstrate understanding of importance of mobility during hospital stay and resolve all functional needs identified.;Patient will demonstrate progress with functional mobility to allow safe discharge to home with available support and/or physical assistance. Able to perform HEP with: Modified Independent Rolling with: Modified Independent Transfer supine to/from sit with: Modified Independent Transfer sit to/from stand with: Modified Independent Ambulate wi (more content not included)... Normal [facility] THERAPY NTon 03-23-2022 THERAPY NT HNO ID: [id number] Author: ADELAIDE Suh/L Service: Occupational Therapy Author Type: Occupational Therapist Type: Therapy (PT/OT/Speech/Resp) Filed: 03/23/2022 1:01 PM Note Text: Occupational Therapy [facility] SERVICE DATE: 03/23/2022 SERVICE TIME: 1245 to 1257 ROOM: [place] [address] Recommended Discharge Disposition: Home OT Recommended Discharge Disposition Comments: pt likley to d/c w/ assist from HHT Anticipated Discharge Needs: Equipment OT 6 Clicks Score: 19 Precaution/Activity Restriction Comments: Post-CVA with left sided deficits; COVID-19 isolation initiated 03/13/22 Isolation Type: Contact AND Droplet Precautions-Plus Eyewear Current Hospital Course: 03/13/22: Admitted to [facility] on 03/13 for rehabilitation in anticipation of transition to home independently. 03/08/22-03/13/22: ED/admission to [facility] with Covid-19, acute hypoxemic respiratory failure,left lower extremity weakness, general lower extremity weakness Reason for Hospital Admission: s/p CVA with LLE weakness and COVID with ARF Relevant Past Medical History: scabes, fibromyalgia,morbid obesity, PTSD, anxiety, Sjogren's syndrom, fatigue, GI problems, CVA, HLP, COVID-19 with hypoxic respiratory failure Response to Therapy Interventions: Low activity tolerance, Limited participation Occupational Therapy Problem List: Education Deficit;Safety Deficits;Impaired Self Care;Decreased Activity Tolerance;Decreased Range Of Motion;Decreased Strength;Functional Mobility Impairment;Balance Impaired Treatment Interventions: Education;Self Care / Home Management;Joint Mobility;Strengthening; Energy Conservation Training;Functional Mobility Training;Balance Training;Neuromuscular Re-education Home Environment Patient Lives With: Self/Alone;Other: See Comment Assistance Available: PRN Entry To Home: Stairs Number Of Stairs Into Home: 3 (2-3 steps w/o rail) Number Of Stairs To Bed/Bath: 13 steps to living area (from garage) Stairs to Bed/Bath with: Unilateral Rail Tub/Shower Type: tub/shower Laundry: basement laundry Equipment Owned: Wheeled Walker;Rollator Prior Functional Level: Within Functional Limits Prior Functional Level Comments: ind without device. has to pull up for transfers, asceds/descends stairs laterally. 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 Patient Report: pt reports "I'm feeling like a wet noodle because of two days of the muscle relaxers." Pt requesting to get back into bed but agreeable to walk to the bed Learning/Educational Needs: Discharge Plan;Equipment;Function al Activities/Mobility;Julia n of Care;OT In-Hospital Exercise Program;Precautions;Familia abilitation Techniques and Procedures;Safety;Self Care;Respiratory Function;Stroke Education CURRENT FUNCTIONAL STATUS: Most recent performance Current Activities of Daily Living Assist Level Additional Information Feeding Independent Grooming Set Up Bathing Upper Body Minimal Assistance;Additional Information pt using long handled sponge for back- assist with thoroughness; seated EOB Bathing Lower Body Minimal Assistance;Additional Information assist for thoroughness for (B) feet; pt able to reach to ankles for washing while seated EOB; SBA for standing aspects of washing Dressing Upper Body Set Up Dressing Lower Body Minimal Assistance;Additional Information assist w/ gerber/doff socks; elastic laces put in shoes / with use of shoe horn - set up assist Toileting Minimal Assistance;Additional Information amb. to/rom bathroom ; able to complete clothing management and tammy care w/ CGA; likely to require some assist w/ posterior care Instrumental Activities of Daily Living Assist Level Additional Information Meal/Beverage Prep Minimal Assistance Cleaning Moderate Assistance Laundry Moderate Assistance Medication Management with Strategies Functional Mobility Assist Level Additional Information Rolling Modified Independent;Contact Guard Assistance Supine to Sit Stand By Assistance Sit to Supine Stand By Assistance flat bed use of rail Scooting Stand By Assistance scooting towards HOB Sit to Stand Contact Guard Assistance blocked R foot by therapist d/t sliding of foot Stand to Sit Contact Guard Assistance Bed to Chair Contact Guard Assistance Stepping Wheeled Walker;Gait Belt Toilet/Commode Contact Guard Assistance;Additional Information Shower Functional Mobility Contact Guard Assistance Wheeled Walker Blank ford indicate activity not attempted Transitions: amb. from chair to bed Balance: Static Sitting;Dynamic Sitting;Static Standing;Dynamic Standing Static Sitting Balance: Normal Patient able to maintain steady balance without handhold support Dynamic Sitting Balance: Good Patient accepts moderate challenge, able to maintain balance while picking up object off floor Static Standing Balance: Good Patient able to maintain balance without handhold support, limited (more content not included)... Normal [facility] THERAPY NT HNO ID: [id number] Author: Jody Ireland PT Service: Physical Therapy Author Type: Physical Therapist Type: Therapy (PT/OT/Speech/Resp) Filed: 03/24/2022 2:58 PM Note Text: Physical Therapy [facility] SERVICE DATE: 03/23/2022 SERVICE TIME: 1015 to 1055 ROOM: [place] [address] Recommended Discharge Disposition: Home PT Recommended Discharge Disposition Comments: Due to current clinical presentation, improved functional mobility, and good motivation/support, patient has good prognosis of returning to home in 1 week. Anticipated Discharge Needs: Equipment Recommended Discharge Equipment: (Bariatric walker) PT 6 Clicks Score: 20 Precaution/Activity Restriction Comments: Post-CVA with left sided deficits; COVID-19 isolation initiated 03/13/22 Isolation Type: Contact AND Droplet Precautions-Plus Eyewear Current Hospital Course: 03/13/22: Admitted to [facility] on 03/13 for rehabilitation in anticipation of transition to home independently. 03/08/22-03/13/22: [facility]admission to [facility] with [facility]id-19, acute hypoxemic respiratory failure,left lower extremity weakness, general lower extremity weakness Reason for Hospital Admission: s/p CVA with LLE weakness and COVID with ARF Relevant Past Medical History: scabes, fibromyalgia,morbid obesity, PTSD, anxiety, Sjogren's syndrom, fatigue, GI problems, CVA, HLP, COVID-19 with hypoxic respiratory failure Response to Therapy Interventions: Improved tolerance for activity Continue skilled needs due to: Functional mobility/skill impairments Physical Therapy Problem List: Edema;Pain;Impaired Self Care;Decreased Activity Tolerance;Decreased Range Of Motion;Decreased Strength;Functional Mobility Impairment;Balance Impaired Treatment Interventions: Education;Self Care / Home Management;Energy Conservation Training;Joint Mobility;Strengthening; Functional Mobility Training;Balance Training;Neuromuscular Re-education;Edema Management Plan for next visit: Standing Balance;Pre-gait activities;Gait training Home Environment Patient Lives With: Self/Alone;Other: See Comment Assistance Available: PRN Entry To Home: Stairs Number Of Stairs Into Home: 3 (2-3 steps w/o rail) Number Of Stairs To Bed/Bath: 13 steps to living area (from garage) Stairs to Bed/Bath with: Unilateral Rail Tub/Shower Type: tub/shower Laundry: basement laundry Equipment Owned: Wheeled Walker;Rollator Prior Functional Level: Within Functional Limits Prior Functional Level Comments: ind without device. has to pull up for transfers, asceds/descends stairs laterally. 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 Patient Report: patient reports feels like a wet noodle , trying to get raboxin out of her system , does not do well with medications CURRENT FUNCTIONAL STATUS: Most recent performance Current Functional Mobility Assist Level Additional Information Rolling Stand By Assistance Supine to Sit Stand By Assistance Sit to Supine Modified Independent Scooting Stand By Assistance Sit to Stand Contact Guard Assistance Stand to Sit Contact Guard Assistance Bed to Chair Additional Information Bed To Chair Transfer Type: Stepping Bed To Chair Transfer Equipment: Wheeled Walker Toilet/Commode Contact Guard Assistance Gait Additional Information Gait Device: Wheeled Walker Gait Distance (feet): 20' 4x Stairs Curb Step Car Transfer Blank ford indicate activity not attempted General Deviations/Observations : Wide base of support;Flexed trunk posture Functional Performance Test Functional Performance Test: 30 Second Sit to Stand 30 Second Sit To Stand (count): 14 30 Second Sit To Stand Gait Device: Wheeled walker Learning/Educational Needs: Discharge Plan;Plan of Care;Changes in Plan of Care;Functional Activities/Mobility Goals for Plan of Care: Plan of Care developed with: Patient Patient /Caregiver Goals: Care For Self;Go Home Goals: Patient will demonstrate understanding of importance of mobility during hospital stay and resolve all functional needs identified.;Patient will demonstrate progress with functional mobility to allow safe discharge to home with available support and/or physical assistance. Able to perform HEP with: Modified Independent Rolling with: Modified Independent Transfer supine to/from sit with: Modified Independent Transfer sit to/from stand with: Modified Independent Ambulate with: Modified Independent Distance: 100' Device: Wheeled Walker;No Device Ambulate up and down steps with: Stand By Assistance Number of steps: 13 Device: Rail Progress Toward Goals: Progressing slower than expected Rehab Potential: Good PLAN: PT Frequency: (6-7 times a week) TREATMENT INTERVENTIONS: Therapy Diagnosis: Muscle Weakness (generalized) Interventions Provided: Gait Training (54314);Therapeutic Exercise (84835);Neuromuscular Reeducation (61699) Therapeutic Exercise (13328) Treatment Minutes: 5 Exercise Ex (more content not included)... Normal [facility] Basic metabolic 2000 panelon 03-22-2022 Anion gap [Moles/Vol] 9 mmol/L Normal 9-18 [facility] Comment on above: Order Comment: Speci men Type: BLOOD SPECIMEN Ordering Facility: [facility] Address: [address] [place] [address] Performed By: #### 2 4321-2 #### [facility] CLIA [id number] [address] [place] [address] [place] Calcium [Mass/Vol] 8.6 mg/dL Normal 8.5-10.2 [facility] Comment on above: Order Comment: Speci men Type: BLOOD SPECIMEN Ordering Facility: [facility] Address: [address] [place] [address] Performed By: #### 2 4321-2 #### [facility] CLIA [id number] [address] [place] [address] [place] Chloride [Moles/Vol] 99 mmol/L Normal 97-105 [facility] Comment on above: Order Comment: Speci men Type: BLOOD SPECIMEN Ordering Facility: [facility] Address: [address] [place] [address] Performed By: #### 2 4321-2 #### [facility] CLIA [id number] [address] [place] [address] [place] CO2 [Moles/Vol] 30 mmol/L Normal 22-30 [facility] Comment on above: Order Comment: Speci men Type: BLOOD SPECIMEN Ordering Facility: [facility] Address: [address] [place] [address] Performed By: #### 2 4321-2 #### [facility] CLIA [id number] [address] [place] [address] [place] Creatinine [Mass/Vol] 0.80 mg/dL Normal 0.58-0.96 [facility] Comment on above: Order Comment: Speci men Type: BLOOD SPECIMEN Ordering Facility: [facility] Address: [address] [place] [address] Performed By: #### 2 4321-2 #### [facility] CLIA [id number] [address] [place] [address] [place] ESTIMATED GLOMERULAR FILTRATION RATE 88 mL/min/1.73m??? Normal >=60 [facility] Comment on above: Order Comment: Susie santizo Type: BLOOD SPECIMEN Ordering Facility: [facility] Address: [address] [place] [address] Result Comment: Cecille mated Glomerular Filtration Rate (eGFR) is calculated using the 2020 CKD-EPI creatinine equation. This equation utilizes serum creatinine, sex, and age as parameters. The creatinine assay has traceable calibration to isotope dilution-mass spectrometry. Refer to KDIGO guidelines for clinical interpretation. In patients with unstable renal function, e.g. those with acute kidney injury, the eGFR may not accurately reflect actual GFR. Performed By: #### 2 4321-2 #### [facility] CLIA [id number] [address] [place] [address] [place] Glucose [Mass/Vol] 121 mg/dL High 74-99 [facility] Comment on above: Order Comment: Susie santizo Type: BLOOD SPECIMEN Ordering Facility: [facility] Address: [address] [place] [address] Result Comment: The [place] Diabetes [employer] (ADA) provides guidance for cutoff values for fasting glucose and random glucose. The ADA defines fasting as no caloric intake for at least 8 hours. Fasting plasma glucose results between 100 to 125 mg/dL indicate increased risk for diabetes (prediabetes). Fasting plasma glucose results greater than or equal to 126 mg/dL meet the criteria for diagnosis of diabetes. In the absence of unequivocal hyperglycemia, results should be confirmed by repeat testing. In a patient with classic symptoms of hyperglycemia or hyperglycemic crisis, random plasma glucose results greater than or equal to 200 mg/dL meet the criteria for diagnosis of diabetes. Reference: Standards of Medical Care in Diabetes 2016, [place] [employer] Association. Diabetes Care. 2016.39(Suppl 1). Performed By: #### 2 4321-2 #### [facility] CLIA [id number] [address] [place] [address] [place] Potassium [Moles/Vol] 4.1 mmol/L Normal 3.7-5.1 [facility] Comment on above: Order Comment: Speci men Type: BLOOD SPECIMEN Ordering Facility: [facility] Address: [address] [place] [address] Performed By: #### 2 4321-2 #### [facility] CLIA [id number] [address] [place], [place] [address] [place] [address] Sodium [Moles/Vol] 138 mmol/L Normal 136-144 [facility] Comment on above: Order Comment: Speci men Type: BLOOD SPECIMEN Ordering Facility: [facility] Address: [address] [place] [address] Performed By: #### 2 4321-2 #### [facility] CLIA [id number] [address] [place] Urea nitrogen [Mass/Vol] 14 mg/dL Normal 7-21 [facility] Comment on above: Order Comment: Speci men Type: BLOOD SPECIMEN Ordering Facility: [facility] Address: [address] [place] [address] Performed By: #### 2 4321-2 #### [facility] CLIA [id number] [address] [place] [address] [place] CBC panel Auto (Bld)on 03-22 Erythrocyte distribution width (RBC) [Ratio] 15.8 % High 11.5-15.0 [facility] Comment on above: Order Comment: Speci men Type: BLOOD SPECIMEN Ordering Facility: [facility] Address: [address] [place] [address] Performed By: #### 2 4321-2 #### [facility] CLIA [id number] [address] [place] [address] [facility] Hematocrit (Bld) [Volume fraction] 41.1 % Normal 36.0-46.0 [facility] Comment on above: Order Comment: Speci men Type: BLOOD SPECIMEN Ordering Facility: [facility] Address: [address] [place] [address] Performed By: #### 2 4321-2 #### [facility] CLIA [id number] [address] [place] [facility] Hemoglobin (Bld) [Mass/Vol] 12.6 g/dL Normal 11.5-15.5 [facility] Comment on above: Order Comment: Speci men Type: BLOOD SPECIMEN Ordering Facility: [facility] Address: [address] [place] [address] Performed By: #### 2 4321-2 #### [facility] CLIA [id number] [address] MCH (RBC) [Entitic mass] 28.5 pg Normal 26.0-34.0 [facility] Comment on above: Order Comment: Speci men Type: BLOOD SPECIMEN Ordering Facility: [facility] Address: [address] [place] [address] Performed By: #### 2 4321-2 #### [facility] CLIA [id number] [address] [place] [address] MCHC (RBC) [Mass/Vol] 30.7 g/dL Normal 30.5-36.0 [facility] Comment on above: Order Comment: Speci men Type: BLOOD SPECIMEN Ordering Facility: [facility] Address: [address] [place] [address] Performed By: #### 2 4321-2 #### [facility] CLIA [id number] [address] [place] [address] [place] MCV (RBC) [Entitic vol] 93.0 fL Normal 80.0-100.0 [facility] Comment on above: Order Comment: Speci men Type: BLOOD SPECIMEN Ordering Facility: [facility] Address: [address] [place] [address] Performed By: #### 2 4321-2 #### [facility] CLIA [id number] [address] OF [facility] Platelet mean volume (Bld) [Entitic vol] 9.9 fL Normal 9.0-12.7 [facility] Center Comment on above: Order Comment: Speci men Type: BLOOD SPECIMEN Ordering Facility: [facility] Address: [address] [place] [address] Performed By: #### 2 4321-2 #### [facility] CLIA [id number] [address] [place] [address] [facility] Platelets (Bld) [#/Vol] 176 10*3/uL Normal 150-400 [facility] Comment on above: Order Comment: Speci men Type: BLOOD SPECIMEN Ordering Facility: [facility] Address: [address] [place] [address] Performed By: #### 2 4321-2 #### [facility] CLIA [id number] [address] [place], [place] [id number] [place] [address] RBC (Bld) [#/Vol] 4.42 10*6/uL Normal 3.90-5.20 [facility] Comment on above: Order Comment: Speci men Type: BLOOD SPECIMEN Ordering Facility: [facility] Address: [address] [place] [address] Performed By: #### 2 4321-2 #### [facility] CLIA [id number] [address] WBC (Bld) [#/Vol] 10.26 10*3/uL Normal 3.70-11.00 [facility] Comment on above: Order Comment: Speci men Type: BLOOD SPECIMEN Ordering Facility: [facility] Address: [address] [place] [address] Performed By: #### 2 4321-2 #### [facility] CLIA [id number] [address] [place] [address] [facility] NURSING PROGon 03-22-2022 NURSING PROG HNO ID: [id number] Author: Elayne Sharma RN Service: Nursing Author Type: Registered Nurse Type: Nursing Progress Note Filed: 03/22/2022 3:40 PM Note Text: Nursing Progress Note Patient Name: Bradley [facility] Note: Called to room per patient. Pt states, "I called but I had an accident. " Pt incontinent of a large amount of urine. Tammy care given. Partial bed linens were changed. Pt states, "I feel tingling in my left leg." Pt was able to assist with rolling over in the bed. Pt was able to assist self up in bed. All treatments and procedures were explained. Pt verbalized understanding. Phone conference to be held today with daughter and patient regarding discharge. No concerns or questions were voiced at this time. This note was completed by: Elayne Begum [facility] SOCIAL WORKon 03-22-2022 SOCIAL WORK HNO ID: [id number] Author: ANH Dunaway Service: Social Work Author Type: Engine Lathe Set Up Operator Tool Type: Social Work Filed: 03/22/2022 3:05 PM Note Text: Summary: Patient Care Conference SOCIAL WORK PROGRESS NOTE Name: Bradley Matos Patient Care Conference held. Daiana Monge, on speaker phone. Discharge planned for 03/27 to home. Due to patient's Medicare being inactive, patient will be given an extensive home exercise program upon discharge. Patient to work on Medicaid and HCAP applications. SW also gave patient the phone number for the FInancial Counselor at [facility]. Patient and daughter are agreeable with 03/27 discharge. Signature: No Greene Date: March 22, 2022 Time: 2:57 PM Normal [facility] THERAPY NTon 03-22-2022 THERAPY NT HNO ID: [id number] Author: Jody Ireland PT Service: Physical Therapy Author Type: Physical Therapist Type: Therapy (PT/OT/Speech/Resp) Filed: 03/22/2022 5:41 PM Note Text: Patient care conference held with patient and daughter (via phone). PT, OT and Methods Examiner in attendance. Reviewed patient current PT status, goals and discharge recommendations. Patient currently requires contact guard assist for ambulation, stand by assist for transfers, contact guard assist for bed mobility and needs to practice stair management. PT goals are for patient to function at stand by assist for transfers and gait to min assist level for stairs. Patient and family advised that patient will require assist for stair managment. Equipment needs include n/a. Discharge date set for 03/27/22. Patient will need to continue with home exercise program upon discharge as no insurance for home health care. See discipline specific documentation for discipline specific details of discussion/education provided. Therapeutic Activity (68329) Treatment Minutes: 16 $ Therapeutic Activity (93371) Billed Units: 1 unit Jody Ireland PT Normal [facility] THERAPY NT HNO ID: [id number] Author: HILDA Suh Service: Occupational Therapy Author Type: Occupational Therapist Type: Therapy (PT/OT/Speech/Resp) Filed: 03/22/2022 3:09 PM Note Text: Summary: OT care conference Care conference held this date w/ SW, PT, OT, Pt and pt's dtr via phone; OT relaying current level of function including- initially pt was CGA for mobility, amb. To/from bathroom, completing toileting routine and bathing tasks; within few days, pt has had recent fall which has made her sore and weak." Therefore, pt has since been using the bed sofia, not ambulating, and having increased difficulty with transfers. D/T patient higher level of function at admission, she will likely be able to recover and d/c to home w/ continued effort and practice. Tentative plan is to d/c 03/27 to home w/ assist from dtr and son in law. Pt will likely not have HHT d/t lack of insurance but has been provided medicaid application from [employer]. OT letting pt's dtr know that a shower chair, shower grab bars and BSC may be good options to have in the home at d/c pending patient's progress. .Therapeutic Activity (05559) Treatment Minutes: 13 $ Therapeutic Activity (71398) Billed Units: 1 unit Normal [facility] THERAPY NT HNO ID: [id number] Author: ADELAIDE Schwartz/Tatum Service: Occupational Therapy Author Type: Occupational Therapist Type: Therapy (PT/OT/Speech/Resp) Filed: 03/22/2022 1:57 PM Note Text: Occupational Therapy Snf Facility Treatment SERVICE DATE: 03/22/2022 SERVICE TIME: 1310 to 1346 ROOM: [place] [address] Recommended Discharge Disposition: Home OT Recommended Discharge Disposition Comments: pt likley to d/c w/ assist from HHT Anticipated Discharge Needs: Equipment OT 6 Clicks Score: 19 Precaution/Activity Restriction Comments: Post-CVA with left sided deficits; COVID-19 isolation initiated 03/13/22 Isolation Type: Contact AND Droplet Precautions-Plus Eyewear Current Hospital Course: 03/13/22: Admitted to [facility] on 03/13 for rehabilitation in anticipation of transition to home independently. 03/08/22-7/6/22: ED/admission to [facility] with Covid-19, acute hypoxemic respiratory failure,left lower extremity weakness, general lower extremity weakness Reason for Hospital Admission: s/p CVA with LLE weakness and COVID with ARF Relevant Past Medical History: scabes, fibromyalgia,morbid obesity, PTSD, anxiety, Sjogren's syndrom, fatigue, GI problems, CVA, HLP, COVID-19 with hypoxic respiratory failure Response to Therapy Interventions: Good participation in activities Continue skilled needs due to: Coping deficits, Functional impairment, Safety concerns Occupational Therapy Problem List: Education Deficit;Safety Deficits;Impaired Self Care;Decreased Activity Tolerance;Decreased Range Of Motion;Decreased Strength;Functional Mobility Impairment;Balance Impaired Treatment Interventions: Education;Self Care / Home Management;Joint Mobility;Strengthening; Energy Conservation Training;Functional Mobility Training;Balance Training;Neuromuscular Re-education Plan for next visit: Bed mobility, Chair/commode transfer training, Dressing training, Energy conservation, Exercise instruction/handout, Grooming training, Sit to stand transfers, Standing balance, Standing tolerance, Toileting instruction Home Environment Patient Lives With: Self/Alone;Other: See Comment Assistance Available: PRN Entry To Home: Stairs Number Of Stairs Into Home: 3 (2-3 steps w/o rail) Number Of Stairs To Bed/Bath: 13 steps to living area (from garage) Stairs to Bed/Bath with: Unilateral Rail Tub/Shower Type: tub/shower Laundry: basement laundry Equipment Owned: Wheeled Walker;Rollator Prior Functional Level: Within Functional Limits Prior Functional Level Comments: ind without device. has to pull up for transfers, asceds/descends stairs laterally. 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 Pt had agreed to wash and change upper body clothes but states lower body clothes put on clean earlier today and she did not want to do that again. Learning/Educational Needs: Discharge Plan;Equipment;Function al Activities/Mobility;Julia n of Care;OT In-Hospital Exercise Program;Precautions;Familia abilitation Techniques and Procedures;Safety;Self Care;Respiratory Function;Stroke Education CURRENT FUNCTIONAL STATUS: Most recent performance Current Activities of Daily Living Assist Level Additional Information Feeding Independent Grooming Set Up Bathing Upper Body Minimal Assistance;Additional Information for bathing back; pt used LUE effectively as a full assist for upper body bathing Bathing Lower Body Minimal Assistance;Additional Information Dressing Upper Body Set Up Dressing Lower Body Minimal Assistance;Additional Information Toileting Minimal Assistance;Additional Information Instrumental Activities of Daily Living Assist Level Additional Information Meal/Beverage Prep Minimal Assistance Cleaning Moderate Assistance Laundry Moderate Assistance Medication Management with Strategies Functional Mobility Assist Level Additional Information Rolling Modified Independent;Contact Guard Assistance Supine to Sit Stand By Assistance Sit to Supine Stand By Assistance Scooting Stand By Assistance;Additional Information scooting up toward head of bed for best position to lie down Sit to Stand Contact Guard Assistance;Additional Information Stand to Sit Contact Guard Assistance Bed to Chair Contact Guard Assistance Stepping Wheeled Walker;Gait Belt Toilet/Commode Contact Guard Assistance;Additional Information Shower Functional Mobility Contact Guard Assistance Wheeled Walker Blank ford indicate activity not attempted Transitions: ambulated to/from bathroom Balance: Static Sitting;Dynamic Sitting;Static Standing;Dynamic Standing Static Sitting Balance: Normal Patient able to maintain steady balance without handhold support Dynamic Sitting Balance: Good Patient accepts moderate challenge, able to maintain balance while picking up object off floor Static Standing Balance: Good Patient able to maintain balance without handhold suppor (more content not included)... Normal [facility] THERAPY NT HNO ID: [id number] Author: Jody Ireland, PT Service: Physical Therapy Author Type: Physical Therapist Type: Therapy (PT/OT/Speech/Resp) Filed: 03/22/2022 12:38 PM Note Text: Physical Therapy Snf Facility Treatment SERVICE DATE: 03/22/2022 SERVICE TIME: 1030 to 1105 ROOM: [place] [address] Recommended Discharge Disposition: Home PT Recommended Discharge Disposition Comments: Due to current clinical presentation, improved functional mobility, and good motivation/support, patient has good prognosis of returning to home in 1 week. Anticipated Discharge Needs: Equipment Recommended Discharge Equipment: (Bariatric walker) PT 6 Clicks Score: 20 Precaution/Activity Restriction Comments: Post-CVA with left sided deficits; COVID-19 isolation initiated 03/13/22 Isolation Type: Contact AND Droplet Precautions-Plus Eyewear Current Hospital Course: 03/13/22: Admitted to [facility] on 03/13 for rehabilitation in anticipation of transition to home independently. 03/08/22-03/13/22: ED/admission to [facility] with Covid-19, acute hypoxemic respiratory failure,left lower extremity weakness, general lower extremity weakness Reason for Hospital Admission: s/p CVA with LLE weakness and COVID with ARF Relevant Past Medical History: scabes, fibromyalgia,morbid obesity, PTSD, anxiety, Sjogren's syndrom, fatigue, GI problems, CVA, HLP, COVID-19 with hypoxic respiratory failure Response to Therapy Interventions: Improved tolerance for activity, Pain Assessment Comments: Imporved mobility vs yesterday. Reports of B LE numbness impacting confidence with mobility in standing. back pain also impedeing progress. Continue skilled needs due to: Functional mobility/skill impairments Physical Therapy Problem List: Edema;Pain;Impaired Self Care;Decreased Activity Tolerance;Decreased Range Of Motion;Decreased Strength;Functional Mobility Impairment;Balance Impaired Treatment Interventions: Education;Self Care / Home Management;Energy Conservation Training;Joint Mobility;Strengthening; Functional Mobility Training;Balance Training;Neuromuscular Re-education;Edema Management Plan for next visit: Bed mobility;Exercise instruction/handout;Sta nding Tolerance;Walker Training Home Environment Patient Lives With: Self/Alone;Other: See Comment Assistance Available: PRN Entry To Home: Stairs Number Of Stairs Into Home: 3 (2-3 steps w/o rail) Number Of Stairs To Bed/Bath: 13 steps to living area (from garage) Stairs to Bed/Bath with: Unilateral Rail Tub/Shower Type: tub/shower Laundry: basement laundry Equipment Owned: Wheeled Walker;Rollator Prior Functional Level: Within Functional Limits Prior Functional Level Comments: ind without device. has to pull up for transfers, asceds/descends stairs laterally. 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 States she is on muscle relaxer which is helping. Willing to participate in therapy. Reports numbness to B LE L > R. Feels it is likely related to her back. Denies associating new weakness and numbness and incontinence to PT telling her it was related to Covid. States she has had incontinence issues prior to hospitalization and thinks it is coming from her back. Agreeable to wearing gripper socks today as feet recently lotioned and feet are slippery. CURRENT FUNCTIONAL STATUS: Most recent performance Current Functional Mobility Assist Level Additional Information Rolling Minimal Assistance Supine to Sit (did not perform today due to increased pain.) Sit to Supine Modified Independent Scooting Stand By Assistance Sit to Stand Contact Guard Assistance Stand to Sit Contact Guard Assistance Bed to Chair Additional Information Bed To Chair Transfer Type: Stepping Bed To Chair Transfer Equipment: Wheeled Walker not performed this date Toilet/Commode Contact Guard Assistance Gait Additional Information Gait Device: Wheeled Walker Gait Distance (feet): 20' 4x not performed this date. Was able to take 3 steps to L to get further up the side of the bed prior to sitting down.. Has not attempted walking since fall on 03/20. Stairs Curb Step Car Transfer Blank ford indicate activity not attempted General Deviations/Observations : Wide base of support;Flexed trunk posture Functional Performance Test Functional Performance Test: 30 Second Sit to Stand 30 Second Sit To Stand (count): 14 30 Second Sit To Stand Gait Device: Wheeled walker Learning/Educational Needs: Discharge Plan;Plan of Care;Changes in Plan of Care;Functional Activities/Mobility Goals for Plan of Care: Plan of Care developed with: Patient Patient /Caregiver Goals: Care For Self;Go Home Goals: Patient will demonstrate understanding of importance of mobility during hospital stay and resolve all functional needs identified.;Patient will demonstrate progress with functional mobility to allow safe discharge to home with (more content not included)... Normal [facility] NURSING PROGon 03-21-2022 NURSING PROG HNO ID: [id number] Author: Diaz Mitchell RN Service: ? Author Type: Registered Nurse Type: Nursing Progress Note Filed: 03/21/2022 9:42 PM Note Text: Nursing Progress Note Patient Name: Bradley Matos Patient Location: [place] [address] Daily Note: This RN entered room to assess patient and administer evening medications. Pt stated that she had fallen last night while ambulating to the bathroom. This RN asked pt what she thought had happened. Pt stated that she was having tingling in her legs prior to getting up and her R leg gave out because her L leg was dragging. She also stated that she can't tell at times" when she has to urinate and has been urinating in her brief all day, despite being able to use a bed sofia. This RN asked pt to notify RN when pt needs to use the bed sofia prior to urinating in her brief. Pt stated she "would try". PT also stated that "somebody" told her that "COVID weakness" and being a COVID long hauler" was causing her renewed weakness and inability to know when she has to urinate. This note was completed by: Diaz Mitchell [facility] NURSING PROG HNO ID: [id number] Author: Elayne Sharma RN Service: Nursing Author Type: Registered Nurse Type: Nursing Progress Note Filed: 03/21/2022 7:59 PM Note Text: Nursing Progress Note Patient Name: Bradley Matos Patient Location: [place] [address] Daily Note: Updated DrPhil Gutierrez on patient's condition. Informed of sound orders at this time. This note was completed by: Elayne Sharma [facility] NURSING PROG HNO ID: [id number] Author: Elayne Sharma RN Service: Nursing Author Type: Registered Nurse Type: Nursing Progress Note Filed: 03/21/2022 7:58 PM Note Text: Nursing Progress Note Patient Name: Bardley Matos Patient Location: [facility] Daily Note: Offered to assist patient with washing off and changing her clothes. Pt refused. States, "I am comfort and I don't feel like it." This note was completed by: Elayne Sharma [facility] NURSING PROG HNO ID: [id number] Author: Elayne Sharma RN Service: Nursing Author Type: Registered Nurse Type: Nursing Progress Note Filed: 03/21/2022 7:57 PM Note Text: Nursing Progress Note Patient Name: Bradley Matos Patient Location: Daily Note: Pt asleep. Aroused easily. All treatments and procedures were explained to patient. Informed patient that she was an early up for therapy this morning. Pt states, "I am not doing therapy this morning. States, "I am so sore and I don't think that I can get out of this bed." Informed patient that we can not keep her here if she continues to refuse therapy. Pt states, Just send me home to ." Informed patient that it may be time to start thinking about going to a nursing home rehab at this time. Pt states, "I need to pee. " States, Can I just pee in this diaper?" Informed patient that she should not just pee in the diaper at least attempt to use the bed sofia. Pt verbalized understanding. Pt assisted on bedpan. Voided without difficulty. Tammy care given. Offered to assist patient with washing up and changing clothes this morning after breakfast. Pt verbalized understanding. No other concerns or questions voiced at this time. This note was completed by: Elayne Sharma [facility] NURSING PROG HNO ID: [id number] Author: Sandra Kerr RN Service: ASSESSMENT Author Type: Registered Nurse Type: Nursing Progress Note Filed: 03/21/2022 5:13 AM Note Text: Pt watching fall video,this nurse discussed with patient need for socks Fall pervention sheet reviewed with patient. Pt states she did not want family notified at this time. LAC wound from fall cleaned. Scant amount of sanguineous fluid at site. 8 cm in length. No c/o pain at site. [facility] NURSING PROG HNO ID: [id number] Author: Sandra Kerr RN Service: ASSESSMENT Author Type: Registered Nurse Type: Nursing Progress Note Filed: 03/21/2022 4:51 AM Note Text: Post Fall Assessment Bradley Matos [id number] Witnessed: Yes How did fall occur:Pt lowered herself to floor while walking to the bathroom. Location:Bathroom in room 112 Contributing factors: N/A Brief factual description: 153/71 P-79, R-16, t-97.7f 96 % RA, No c/o pain from fall, Pt was ambulating to bathroom. Refuses to wear yellow socks, states they are more dangerous for her to wear them because they make her feet stick on the floor. Pt was using walker and 1 person stand by assist and kept stopping to talk. Pt had to be reminded to focus on walking and not talking. When she got into the bathroom she said "I'm not going to be able to do this. She then let go of her walker and started grabbing for the wall and bedside commode the gently lowered herself to the floor. Pt did not have a gait belt on because of her size but if she had had one on it would have injured her to use it because of her size. Pt did not hit her head but did receive an excoriation on Left anticube from where her arm got wrapped around her bedside commode over the toilet. She was then lifted by jose, 4 person assist, and taken back to her bed and assessed. Initial Physical Assessment Injury: Left anticube excoriation Patient hit head:no Immediate actions taken: Pt was lifted to bed by jose, vitals taken and Doctor contacted Name of LIP notified: [facility] physician, Dr. Luis Fernando Darden Notify family as appropriate:not at this time Post fall interventions: Pt remains in bed, Vital signs taken, Reviewed fall video and fall prevention sheet This note was completed by:Sandra Kerr [facility] NUTRITIONon 03-21-2022 NUTRITION HNO ID: [id number] Author: Ninfa De La Rosa RD Service: Nutrition Therapy Author Type: Registered Dietitian Type: Nutrition Filed: 03/21/2022 12:57 PM Note Text: NUTRITION THERAPY PROGRESS NOTE SERVICE DATE: 03/21/2022 SERVICE TIME: 1130 Nutrition Assessment: Recommended Malnutrition Diagnosis: No Malnutrition Identified (03/15/22 1106 : Ninfa De La Rosa RD) Estimated kilocalorie needs: 2705-2119 Calorie Calculation Method: 25-30 kcals/kg Estimated protein needs (grams): 71-89 (promote LBM) Grams protein determined by: 1.2 - 1.5 g/kg Care Plan: Continue current diet Monitor and Evaluation: Meet greater than 75% of estimated needs;Monitor bowel function;Monitor fluid/electrolyte balance;Monitor labs, I/Os, vital signs, weight Discharge Recommendations: Diet Diet: regular, healthy diet. Interval History: LOS day 7, last reviewed by this RD on 03/15. Meal intakes showing >75%. Last BM 03/20. Med and labs reviewed. Anthropometrics: Height: 167.6 cm (5' 6") Weight: (!) 151.6 kg (334 lb 3.2 oz) Dosing Weight: 59 kg (130 lb) Usual Weight: 149.7 kg (330 lb) Usual Weight Obtained From: Chart Review Body mass index is 53.94 kg/m?. Morbidly Obese Weight change percentage over time: no recent wts to report on, no sig wt changes x 3 years or per pt interview. Intake History: Current Intake: Greater than 75% estimated energy needs Over: x 6 days. Pt reports no nutritional concerns. Endorses PO intake records, states she's getting enough food and tolerating. Diet Orders (From admission, onward) Start Ordered 03/15/22 1115 DIET CARBOHYDRATE CONTROLLED START NOW Question: Carbohydrate Control Answer: CONSISTENT CARBOHYDRATE 03/15/22 1112 MNT Billing: $ Reassessment: 1-15 minutes SIGNATURE: Ninfa De La Rosa RD PATIENT NAME: Bradley Matos DATE: March 21, 2022 TIME: 10:03 AM [facility] SOCIAL WORKon 03-21-2022 SOCIAL WORK HNO ID: [id number] Author: ANH Dunaway Service: Social Work Author Type: Engine Lathe Set Up Operator Tool Type: Social Work Filed: 03/21/2022 4:22 PM Note Text: SOCIAL WORK PROGRESS NOTE Name: Bradley Matos Left information on RX financial assistance for aciphex, per patient's request, outside of patient's room. Nurse to give to patient. Signature: No Greene Date: March 21, 2022 Time: 4:19 PM Normal [facility] SOCIAL WORK HNO ID: [id number] Author: ANH Dunaway Service: Social Work Author Type: Engine Lathe Set Up Operator Tool Type: Social Work Filed: 03/21/2022 1:58 PM Note Text: SOCIAL WORK PROGRESS NOTE Name: Bradley Matos Scheduled Patient Care (Phone Conference) with patient's daughter, Daiana, for 03/22 at 1430. Signature: No Greene Date: March 21, 2022 Time: 1:57 PM Normal [facility] THERAPY NTon 03-21-2022 THERAPY NT HNO ID: [id number] Author: Radha Horowitz PTA Service: Physical Therapy Author Type: Supervisor Cabinetmaker Type: Therapy (PT/OT/Speech/Resp) Filed: 03/21/2022 2:13 PM Note Text: Attestation signed by Jody Ireland, PT at 03/22/2022 8:00 AM I reviewed and agree with the documentation corresponding to this therapy visit. SIGNATURE: Jody Ireland, PT DATE: March 22, 2022 TIME: 8:00 AM PHYSICAL THERAPY MISSED VISIT SERVICE DATE: 03/21/2022 SERVICE TIME: 1400 to 1402 ROOM: [place] [address] Patient not seen due to Declined.Patient stated she fell in the doorway and they had to get 4 people to get her up with the jose lift and Im pretty banged up" I dont want to do ;anything now. I told them I had no feeling in my legs especially the left . It doesn't move and the right is getting tingly independent dont feel like doing anything today Patient Assistance Authorization FYI Notes: Radha Horowitz PTA 03/21/2022 SIGNATURE: Radha ELOY Horowitz PATIENT NAME: Bradley Matos DATE: March 21, 2022 TIME: 2:11 PM Normal [facility] THERAPY NT HNO ID: [id number] Author: Lian Dan OTR/L Service: Occupational Therapy Author Type: Occupational Therapist Type: Therapy (PT/OT/Speech/Resp) Filed: 03/21/2022 1:50 PM Note Text: Occupational Therapy Snf Facility Treatment SERVICE DATE: 03/21/2022 SERVICE TIME: 1309 to 1330 ROOM: [place] [address] Recommended Discharge Disposition: Home OT Recommended Discharge Disposition Comments: pt louis to d/c w/ assist from HHT Anticipated Discharge Needs: Equipment OT 6 Clicks Score: 19 Precaution/Activity Restriction Comments: Post-CVA with left sided deficits; COVID-19 isolation initiated 03/13/22 Isolation Type: Contact AND Droplet Precautions-Plus Eyewear;Contact AND Airborne Precautions Current Hospital Course: 03/13/22: Admitted to [facility] on 03/13 for rehabilitation in anticipation of transition to home independently. 03/08/22-03/13/22: ED/admission to [facility] with Covid-19, acute hypoxemic respiratory failure,left lower extremity weakness, general lower extremity weakness Reason for Hospital Admission: s/p CVA with LLE weakness and COVID with ARF Relevant Past Medical History: scabes, fibromyalgia,morbid obesity, PTSD, anxiety, Sjogren's syndrom, fatigue, GI problems, CVA, HLP, COVID-19 with hypoxic respiratory failure Response to Therapy Interventions: Cognitive deficits, Coping deficits, Limited participation, Low activity tolerance, Pain, Requires additional time to complete activities, Requires encouragement to complete activities Continue skilled needs due to: Coping deficits, Functional impairment, Safety concerns Occupational Therapy Problem List: Education Deficit;Safety Deficits;Impaired Self Care;Decreased Activity Tolerance;Decreased Range Of Motion;Decreased Strength;Functional Mobility Impairment;Balance Impaired Treatment Interventions: Education;Self Care / Home Management;Joint Mobility;Strengthening; Energy Conservation Training;Functional Mobility Training;Balance Training;Neuromuscular Re-education Plan for next visit: Bed mobility, Chair/commode transfer training, Dressing training, Energy conservation, Exercise instruction/handout, Grooming training, Sit to stand transfers, Standing balance, Standing tolerance, Toileting instruction Home Environment Patient Lives With: Self/Alone;Other: See Comment Assistance Available: PRN Entry To Home: Stairs Number Of Stairs Into Home: 3 (2-3 steps w/o rail) Number Of Stairs To Bed/Bath: 13 steps to living area (from garage) Stairs to Bed/Bath with: Unilateral Rail Tub/Shower Type: tub/shower Laundry: basement laundry Equipment Owned: Wheeled Walker;Rollator Prior Functional Level: Within Functional Limits Prior Functional Level Comments: ind without device. has to pull up for transfers, asceds/descends stairs laterally. 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 Learning/Educational Needs: Discharge Plan;Equipment;Function al Activities/Mobility;Julia n of Care;OT In-Hospital Exercise Program;Precautions;Familia abilitation Techniques and Procedures;Safety;Self Care;Respiratory Function;Stroke Education CURRENT FUNCTIONAL STATUS: Most recent performance Current Activities of Daily Living Assist Level Additional Information Feeding Independent Grooming Minimal Assistance;Additional Information Bathing Upper Body Minimal Assistance;Additional Information Bathing Lower Body Minimal Assistance;Additional Information Dressing Upper Body Set Up;Additional Information Dressing Lower Body Minimal Assistance;Additional Information Toileting Minimal Assistance;Additional Information Instrumental Activities of Daily Living Assist Level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 hard to follow patient's story. Haven't been able to do stairs yet, but out of isolation today. Knees are main problem. Dtr can help with meals/laundry. Not too far from baseline. Limited with knees - bad for a long time. PT: Recent CVA with minimal left sided deficits; good mobility; anticipate 1 week only; stair training needed. SW: Will need to order FWW. Check with PT as patient is saying she does not want a wide/HD one. (Needs grab bars per Nsg Mgr) Recent stolen identity. Discuss medication financial concerns with patient and offer assistance. 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 N: Refusing to wear socks. Dietary: Change diet to carb controlled (elevated BS with use of steroid, discussed with patient and agreeable.) Nursing: Anxiety Intervention(s) Plan: Answer Questions and Provide Information on Coping Skills Anxiety Goals/Outcomes: Exhibits Increased Interest and Assume Responsibility for Patient's Own/Family Learning by Beginning to Look for Information and Ask Questions Anxiety Goal Target Achievement Date: 03/20/22 Altered Nutrition Intervention(s) Plan: Provide Diet as Ordered Altered Nutrition Goals/Outcomes: Patient Has Maintain Nutritional Status Nutrition Goal Target Achievement Date: 03/20/22 Communication Goal Target Achievement Date: 03/16/22 Discharge Planning Intervention(s) Plan: Post Discharge Services;Coordinate Discharge Planning Discharge Planning Goals/Outcomes: Patient Will be Discharged to an Appropriate Safe Level of Care Discharge Planning Goal Target Achievement Date: 03/20/22Fluid/Electroly te Goal Target Achievement Date: 03/20/22 Knowledge Deficit Intervention(s) Plan: Encourage Verbalization of Questions and Concerns Knowledge Deficit Goals/Outcomes: Participate in Learning Process Knowledge Deficit Goal Target Achievement Date: 03/20/22 Mobility Intervention(s) Plan: Advance Mobility Mobility Patient/Family Goals: Demonstrates ability to complete transfers with least level of assist. Mobility Goal Target Achievement Date: 03/20/22 Neurological Deficit Intervention(s) Plan: Maintain Patient Safety Neurological Deficit Goals/Outcome: Patient Remains Safe in Hospital Environment Neurology Goal Target Achievement Date: 03/20/22 Pain Intervention(s) Plan: Pain Assessment, Management, Reassessment Per Scoring Tool Pain Goals/Outcomes: Decrease in Pain Level per Scoring Tool Pain Goal Target Achievement Date: 03/20/22 Safety Intervention(s) Plan: Maintain a Safe Environment;Observation Safety Goals/Outcomes: Maintain Patient Safety Safety Goal Target Achievement Date: 03/20/22Self Care Intervention(s) Plan: Assess for Self Care Deficits Self Care Goals/Outcome: Patient Will Perform Activities of Daily Living Appropriate (more content not included)... [facility] THERAPY NTon 03-18-2022 THERAPY NT HNO ID: [id number] Author: Yoli Navarro, OTR/L Service: Occupational Therapy Author Type: Occupational Therapist Type: Therapy (PT/OT/Speech/Resp) Filed: 03/18/2022 5:02 PM Note Text: Occupational Therapy Snf Facility Treatment SERVICE DATE: 03/18/2022 SERVICE TIME: 1410 to 1505 ROOM: [place] [address] Recommended Discharge Disposition: Home OT Recommended Discharge Disposition Comments: pt likley to d/c w/ assist from HHT Anticipated Discharge Needs: Equipment OT 6 Clicks Score: 19 Precaution/Activity Restriction Comments: Post-CVA with left sided deficits; COVID-19 isolation initiated 03/13/22 Isolation Type: Contact AND Droplet Precautions-Plus Eyewear Current Hospital Course: 03/13/22: Admitted to [facility] on 03/13 for rehabilitation in anticipation of transition to home independently. 03/08/22-03/13/22: ED/admission to [facility] with Covid-19, acute hypoxemic respiratory failure,left lower extremity weakness, general lower extremity weakness Reason for Hospital Admission: s/p CVA with LLE weakness and COVID with ARF Relevant Past Medical History: scabes, fibromyalgia,morbid obesity, PTSD, anxiety, Sjogren's syndrom, fatigue, GI problems, CVA, HLP, COVID-19 with hypoxic respiratory failure Response to Therapy Interventions: Good participation in activities, Coping deficits Assessment Comments: Pt was cooperative with treatment including participating in UE exercises, and moving to stand with shoes on both feet. Pt is anxious to be removed from isolation status Continue skilled needs due to: Continued monitoring of vital signs during mobility required, Family training required, Functional impairment, Safety concerns, Coping deficits Occupational Therapy Problem List: Education Deficit;Safety Deficits;Impaired Self Care;Decreased Activity Tolerance;Decreased Range Of Motion;Decreased Strength;Functional Mobility Impairment;Balance Impaired Treatment Interventions: Education;Self Care / Home Management;Joint Mobility;Strengthening; Energy Conservation Training;Functional Mobility Training;Balance Training;Neuromuscular Re-education Plan for next visit: Bathing training, Bed mobility, Chair/commode transfer training, Dressing training, Energy conservation, Exercise instruction/handout, Grooming training, Sit to stand transfers, Standing balance, Standing tolerance, Toileting instruction Home Environment Patient Lives With: Self/Alone;Other: See Comment Assistance Available: PRN Entry To Home: Stairs Number Of Stairs Into Home: 3 (2-3 steps w/o rail) Number Of Stairs To Bed/Bath: 13 steps to living area (from garage) Stairs to Bed/Bath with: Unilateral Rail Tub/Shower Type: tub/shower Laundry: basement laundry Equipment Owned: Wheeled Walker;Rollator Prior Functional Level: Within Functional Limits Prior Functional Level Comments: ind without device. has to pull up for transfers, asceds/descends stairs laterally. 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 Patient Report: Pt states she is willing to wear her shoes for ambulation in the room at this time Learning/Educational Needs: Discharge Plan;Equipment;Function al Activities/Mobility;Julia n of Care;OT In-Hospital Exercise Program;Precautions;Familia abilitation Techniques and Procedures;Safety;Self Care;Respiratory Function;Stroke Education CURRENT FUNCTIONAL STATUS: Most recent performance Current Activities of Daily Living Assist Level Additional Information Feeding Independent Grooming Contact Guard Assistance Bathing Upper Body Minimal Assistance Bathing Lower Body Minimal Assistance Dressing Upper Body Set Up Dressing Lower Body Minimal Assistance;Additional Information pt able to gerber tennis shoes with elastic laces with SBA while sitting EOB Toileting Minimal Assistance Instrumental Activities of Daily Living Assist Level Additional Information Meal/Beverage Prep Minimal Assistance Cleaning Moderate Assistance Laundry Moderate Assistance Medication Management with Strategies Functional Mobility Assist Level Additional Information Rolling Supine to Sit Contact Guard Assistance;Additional Information elevated HOB and use of rail Sit to Supine Stand By Assistance Scooting Stand By Assistance Sit to Stand Stand By Assistance;Additional Information cues needed for hand placement Stand to Sit Stand By Assistance;Additional Information cues needed for hand placement Bed to Chair Toilet/Commode Contact Guard Assistance Shower Functional Mobility Contact Guard Assistance Wheeled Walker Blank ford indicate activity not attempted Transitions: amb. to/from bathroom Balance: Static Sitting;Dynamic Sitting;Static Standing;Dynamic Standing Static Sitting Balance: Normal Patient able to maintain steady balance without handhold support Dynamic Sitting Balance: Good Patient accepts moderate challenge, able to maintain balance while picking up object off floor Static Standin (more content not included)... [facility] THERAPY NT HNO ID: [id number] Author: Jody rIeland, PT Service: Physical Therapy Author Type: Physical Therapist Type: Therapy (PT/OT/Speech/Resp) Filed: 03/18/2022 4:42 PM Note Text: Physical Therapy Snf Facility Treatment SERVICE DATE: 03/18/2022 SERVICE TIME: 1500 to 1520 ROOM: [place] [address] Recommended Discharge Disposition: Home PT Recommended Discharge Disposition Comments: Due to current clinical presentation, improved functional mobility, and good motivation/support, patient has good prognosis of returning to home in 1 week. Anticipated Discharge Needs: Equipment Recommended Discharge Equipment: (Bariatric walker) PT 6 Clicks Score: 20 Precaution/Activity Restriction Comments: Post-CVA with left sided deficits; COVID-19 isolation initiated 03/13/22 Isolation Type: Contact AND Droplet Precautions-Plus Eyewear Current Hospital Course: 03/13/22: Admitted to [facility] on 03/13 for rehabilitation in anticipation of transition to home independently. 03/08/22-03/13/22: ED/admission to [facility] with Covid-19, acute hypoxemic respiratory failure,left lower extremity weakness, general lower extremity weakness Reason for Hospital Admission: s/p CVA with LLE weakness and COVID with ARF Relevant Past Medical History: scabes, fibromyalgia,morbid obesity, PTSD, anxiety, Sjogren's syndrom, fatigue, GI problems, CVA, HLP, COVID-19 with hypoxic respiratory failure Physical Therapy Problem List: Edema;Pain;Impaired Self Care;Decreased Activity Tolerance;Decreased Range Of Motion;Decreased Strength;Functional Mobility Impairment;Balance Impaired Treatment Interventions: Education;Self Care / Home Management;Energy Conservation Training;Joint Mobility;Strengthening; Functional Mobility Training;Balance Training;Neuromuscular Re-education;Edema Management Home Environment Patient Lives With: Self/Alone;Other: See Comment Assistance Available: PRN Entry To Home: Stairs Number Of Stairs Into Home: 3 (2-3 steps w/o rail) Number Of Stairs To Bed/Bath: 13 steps to living area (from garage) Stairs to Bed/Bath with: Unilateral Rail Tub/Shower Type: tub/shower Laundry: basement laundry Equipment Owned: Wheeled Walker;Rollator Prior Functional Level: Within Functional Limits Prior Functional Level Comments: ind without device. has to pull up for transfers, asceds/descends stairs laterally. 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 FUNCTIONAL STATUS: Most recent performance Current Functional Mobility Assist Level Additional Information Rolling Modified Independent Supine to Sit Modified Independent Sit to Supine Modified Independent Scooting Stand By Assistance Sit to Stand Contact Guard Assistance Stand to Sit Contact Guard Assistance Bed to Chair Contact Guard Assistance Bed To Chair Transfer Type: Stepping Bed To Chair Transfer Equipment: Wheeled Walker Toilet/Commode Contact Guard Assistance Gait Contact Guard Assistance Gait Device: Wheeled Walker Gait Distance (feet): 15 ft., x 3 Stairs Curb Step Car Transfer Blank ford indicate activity not attempted General Deviations/Observations : Tenisha decreased;Difficulty changing direction/turning;Step length decreased Functional Performance Test Functional Performance Test: 30 Second Sit to Stand 30 Second Sit To Stand (count): 14 30 Second Sit To Stand Gait Device: Wheeled walker Learning/Educational Needs: Discharge Plan;Plan of Care;Changes in Plan of Care;Functional Activities/Mobility Goals for Plan of Care: Plan of Care developed with: Patient Patient /Caregiver Goals: Care For Self;Go Home Goals: Patient will demonstrate understanding of importance of mobility during hospital stay and resolve all functional needs identified.;Patient will demonstrate progress with functional mobility to allow safe discharge to home with available support and/or physical assistance. Able to perform HEP with: Modified Independent Rolling with: Modified Independent Transfer supine to/from sit with: Modified Independent Transfer sit to/from stand with: Modified Independent Ambulate with: Modified Independent Distance: 100' Device: Wheeled Walker;No Device Ambulate up and down steps with: Stand By Assistance Number of steps: 13 Device: Rail Progress Toward Goals: Progressing as expected Rehab Potential: Good PLAN: PT Frequency: (6-7 times a week) TREATMENT INTERVENTIONS: Therapy Diagnosis: Muscle Weakness (generalized) Interventions Provided: Gait Training (29247) Gait Training (30219) Treatment Minutes: 20 $ Gait Training (48401) Billed Units: 1 unit Ambulated 15 ft. X 3 with WW patient wore her shoes. She stated she was heat sensitive and n;eeded to lie down she was hot, could not do ;any more today. Patient returned to bed. Timed Code Treatment (minutes): 20 Skilled Treatment Time (minutes): 20 Therapy Minutes: One to One PT One to One Therapy Minutes: 20 Please see discipline (more content not included)... [facility] THERAPY NT HNO ID: [id number] Author: Radha Horowitz PTA Service: Physical Therapy Author Type: Supervisor Cabinetmaker Type: Therapy (PT/OT/Speech/Resp) Filed: 03/18/2022 10:09 AM Note Text: Attestation signed by Jody Ireland PT at 03/18/2022 11:44 AM I reviewed and agree with the documentation corresponding to this therapy visit. SIGNATURE: Jody Ireland PT DATE: March 18, 2022 TIME: 11:44 AM Physical Therapy Snf Facility Treatment SERVICE DATE: 03/18/2022 SERVICE TIME: 929 to 954 ROOM: [place] [address] Recommended Discharge Disposition: Home PT Recommended Discharge Disposition Comments: Due to current clinical presentation, improved functional mobility, and good motivation/support, patient has good prognosis of returning to home in 1 week. Anticipated Discharge Needs: Equipment Recommended Discharge Equipment: (Bariatric walker) PT 6 Clicks Score: 20 Precaution/Activity Restriction Comments: Post-CVA with left sided deficits; COVID-19 isolation initiated 03/13/22 Isolation Type: Contact AND Droplet Precautions-Plus Eyewear Current Hospital Course: 03/13/22: Admitted to [facility] on 03/13 for rehabilitation in anticipation of transition to home independently. 03/08/22-03/13/22: ED/admission to [facility] with Covid-19, acute hypoxemic respiratory failure,left lower extremity weakness, general lower extremity weakness Reason for Hospital Admission: s/p CVA with LLE weakness and COVID with ARF Relevant Past Medical History: scabes, fibromyalgia,morbid obesity, PTSD, anxiety, Sjogren's syndrom, fatigue, GI problems, CVA, HLP, COVID-19 with hypoxic respiratory failure Response to Therapy Interventions: Limited participation, Low activity tolerance, Pain Assessment Comments: limited by pain in B knees Physical Therapy Problem List: Edema;Pain;Impaired Self Care;Decreased Activity Tolerance;Decreased Range Of Motion;Decreased Strength;Functional Mobility Impairment;Balance Impaired Treatment Interventions: Education;Self Care / Home Management;Energy Conservation Training;Joint Mobility;Strengthening; Functional Mobility Training;Balance Training;Neuromuscular Re-education;Edema Management Plan for next visit: Gait training;Exercise instruction/handout Home Environment Patient Lives With: Self/Alone;Other: See Comment Assistance Available: PRN Entry To Home: Stairs Number Of Stairs Into Home: 3 (2-3 steps w/o rail) Number Of Stairs To Bed/Bath: 13 steps to living area (from garage) Stairs to Bed/Bath with: Unilateral Rail Tub/Shower Type: tub/shower Laundry: basement laundry Equipment Owned: Wheeled Walker;Rollator Prior Functional Level: Within Functional Limits Prior Functional Level Comments: ind without device. has to pull up for transfers, asceds/descends stairs laterally. 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 rated pain a3/10 Rknee CURRENT FUNCTIONAL STATUS: Most recent performance Current Functional Mobility Assist Level Additional Information Rolling Modified Independent Supine to Sit Modified Independent Sit to Supine Modified Independent Scooting Stand By Assistance Sit to Stand Contact Guard Assistance Stand to Sit Contact Guard Assistance Bed to Chair Contact Guard Assistance;Additional Information Bed To Chair Transfer Type: Stepping Bed To Chair Transfer Equipment: Wheeled Walker Toilet/Commode Contact Guard Assistance Gait Contact Guard Assistance Gait Device: Wheeled Walker Gait Distance (feet): 15 ft x 2 Stairs Curb Step Car Transfer Blank ford indicate activity not attempted General Deviations/Observations : Tenisha decreased;Difficulty changing direction/turning;Step length decreased Functional Performance Test Functional Performance Test: 30 Second Sit to Stand 30 Second Sit To Stand (count): 14 30 Second Sit To Stand Gait Device: Wheeled walker Learning/Educational Needs: Discharge Plan;Plan of Care;Changes in Plan of Care;Functional Activities/Mobility Goals for Plan of Care: Plan of Care developed with: Patient Patient /Caregiver Goals: Care For Self;Go Home Goals: Patient will demonstrate understanding of importance of mobility during hospital stay and resolve all functional needs identified.;Patient will demonstrate progress with functional mobility to allow safe discharge to home with available support and/or physical assistance. Able to perform HEP with: Modified Independent Rolling with: Modified Independent Transfer supine to/from sit with: Modified Independent Transfer sit to/from stand with: Modified Independent Ambulate with: Modified Independent Distance: 100' Device: Wheeled Walker;No Device Ambulate up and down steps with: Stand By Assistance Number of steps: 13 Device: Rail Progress Towa (more content not included)... [facility] NURSING PROGon 03-17-2022 NURSING PROG HNO ID: [id number] Author: Diaz Mitchell RN Service: ? Author Type: Registered Nurse Type: Nursing Progress Note Filed: 03/18/2022 6:36 AM Note Text: Nursing Progress Note Patient Name: Bradley Matos Patient Location: [place] [address] Daily Note: Pt continues to refuse to wear her non-slip socks. This Rn educated pt about safety and falls risk. This note was completed by: Diaz Mitchell [facility] NURSING PROG HNO ID: [id number] Author: Shante Cuevas RN Service: Nursing Author Type: Registered Nurse Type: Nursing Progress Note Filed: 03/17/2022 5:28 PM Note Text: Nursing Progress Note Patient Name: Bradley Matos Patient Location: [place] [address] Daily Note: This RN spoke with [facility] pharmacy regarding Pt's home medication Aciphex. Per [facility], Pt was only taking Protonix because [facility] pharmacy does not carry Aciphex. Per [facility] Aciphex does not interract with the other medication Pt is taking (Plavix). [facility] stated Pt cannot take both medications (Aciphex and Protonix) and could only take one. [facility] stated she would discontinue the Protonix and retime Pt home medication Aciphex for 0600. This RN informed [facility] that Pt stated she was taking Aciphex TID. Per [facility], Aciphex is a 1x daily medication and should not be taking 3x per day. This RN reviewed medication change with Pt. Pt stated "ok that works." This note was completed by: Shante Cuevas [facility] NURSING PROG HNO ID: [id number] Author: Shante Cuevas RN Service: Nursing Author Type: Registered Nurse Type: Nursing Progress Note Filed: 03/17/2022 8:40 AM Note Text: Nursing Progress Note Patient Name: Bradley Matos [facility] Daily Note: Pt refuses to wear yellow safety socks. Pt stated another department gave her permission to not wear them "they're letting me ambulate without them because I have foot drop which will make me trip and it's a safety hazard." This RN educated Pt about safe ambulation and reasoning for the use of safety socks and fall risks. This note was completed by: Shante Cuevas [facility] NURSING PROG HNO ID: [id number] Author: Diaz Mitchell RN Service: ? Author Type: Registered Nurse Type: Nursing Progress Note Filed: 03/16/2022 11:17 PM Note Text: Nursing Progress Note Patient Name: Bradley Matos Patient Location: Daily Note: Pt continues to refuse to wear yellow non-skid socks when she ambulates. Educated pt about safety and falls risk. This note was completed by: Diaz Mitchell [facility] THERAPY NTon 03-16-2022 THERAPY NT HNO ID: [id number] Author: Radha Horowitz PTA Service: Physical Therapy Author Type: Supervisor Cabinetmaker Type: Therapy (PT/OT/Speech/Resp) Filed: 03/16/2022 10:54 AM Note Text: Attestation signed by Makayla Calvo PT at 03/26/2022 2:13 PM I reviewed and agree with the documentation corresponding to this therapy visit. SIGNATURE: Makayla Calvo, PT DATE: March 26, 2022 TIME: 2:11 PM Physical Therapy [facility] SERVICE DATE: 03/16/2022 SERVICE TIME: 1015 to 1045 ROOM: [id number] Recommended Discharge Disposition: Home PT Recommended Discharge Disposition Comments: Due to current clinical presentation, improved functional mobility, and good motivation/support, patient has good prognosis of returning to home in 1 week. Anticipated Discharge Needs: Equipment Recommended Discharge Equipment: (Bariatric walker) PT 6 Clicks Score: 20 Precaution/Activity Restriction Comments: Post-CVA with left sided deficits; COVID-19 isolation initiated 03/13/22 Isolation Type: Contact AND Droplet Precautions-Plus Eyewear Current Hospital Course: 03/13/22: Admitted to [facility] on 03/13 for rehabilitation in anticipation of transition to home independently. 03/08/22-03/13/22: ED/admission to [facility] with Covid-19, acute hypoxemic respiratory failure,left lower extremity weakness, general lower extremity weakness Reason for Hospital Admission: s/p CVA with LLE weakness and COVID with ARF Relevant Past Medical History: scabes, fibromyalgia,morbid obesity, PTSD, anxiety, Sjogren's syndrom, fatigue, GI problems, CVA, HLP, COVID-19 with hypoxic respiratory failure Response to Therapy Interventions: Limited participation, Pain, Low activity tolerance Physical Therapy Problem List: Edema;Pain;Impaired Self Care;Decreased Activity Tolerance;Decreased Range Of Motion;Decreased Strength;Functional Mobility Impairment;Balance Impaired Treatment Interventions: Education;Self Care / Home Management;Energy Conservation Training;Joint Mobility;Strengthening; Functional Mobility Training;Balance Training;Neuromuscular Re-education;Edema Management Plan for next visit: Exercise instruction/handout;Gai t training Home Environment Patient Lives With: Self/Alone;Other: See Comment Assistance Available: PRN Entry To Home: Stairs Number Of Stairs Into Home: 3 (2-3 steps w/o rail) Number Of Stairs To Bed/Bath: 13 steps to living area (from garage) Stairs to Bed/Bath with: Unilateral Rail Tub/Shower Type: tub/shower Laundry: basement laundry Equipment Owned: Wheeled Walker;Rollator Prior Functional Level: Within Functional Limits Prior Functional Level Comments: ind without device. has to pull up for transfers, asceds/descends stairs laterally. 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 Patient Report: Patient states she cant exercise due to the pain ful knees they need replacemeeent, I have a sinus infection CURRENT FUNCTIONAL STATUS: Most recent performance Current Functional Mobility Assist Level Additional Information Rolling Modified Independent Supine to Sit Modified Independent Sit to Supine Modified Independent Scooting Contact Guard Assistance Sit to Stand Contact Guard Assistance Stand to Sit Contact Guard Assistance Bed to Chair Contact Guard Assistance;Additional Information Bed To Chair Transfer Type: Stepping Bed To Chair Transfer Equipment: Wheeled Walker Toilet/Commode Gait Contact Guard Assistance Gait Device: Wheeled Walker Gait Distance (feet): 15 x 2 Stairs Curb Step Car Transfer Blank ford indicate activity not attempted General Deviations/Observations : Tenisha decreased;Difficulty changing direction/turning;Step length decreased Functional Performance Test Functional Performance Test: 30 Second Sit to Stand 30 Second Sit To Stand (count): 14 30 Second Sit To Stand Gait Device: Wheeled walker Learning/Educational Needs: Discharge Plan;Plan of Care;Changes in Plan of Care;Functional Activities/Mobility Goals for Plan of Care: Plan of Care developed with: Patient Patient /Caregiver Goals: Care For Self;Go Home Goals: Patient will demonstrate understanding of importance of mobility during hospital stay and resolve all functional needs identified.;Patient will demonstrate progress with functional mobility to allow safe discharge to home with available support and/or physical assistance. Able to perform HEP with: Modified Independent Rolling with: Modified Independent Transfer supine to/from sit with: Modified Independent Transfer sit to/from stand with: Modified Independent Ambulate with: Modified Independent Distance: 100' Device: Wheeled Walker;No Device Ambulate up and down steps with: Stand By Assistance Number of steps: 13 Device: Rail (more content not included)... [facility] THERAPY NT HNO ID: [id number] Author: ADELAIDE Suh/Tatum Service: Occupational Therapy Author Type: Occupational Therapist Type: Therapy (PT/OT/Speech/Resp) Filed: 03/16/2022 9:35 AM Note Text: Occupational Therapy [facility] SERVICE DATE: 03/16/2022 SERVICE TIME: 853 to 923 ROOM: [place] [address] Recommended Discharge Disposition: Home OT Recommended Discharge Disposition Comments: pt louis to d/c w/ assist from HHT Anticipated Discharge Needs: Equipment OT 6 Clicks Score: 19 Precaution/Activity Restriction Comments: Post-CVA with left sided deficits; COVID-19 isolation initiated 03/13/22 Isolation Type: Contact AND Droplet Precautions-Plus Eyewear Current Hospital Course: 7/6/22: Admitted to [facility] on 03/13 for rehabilitation in anticipation of transition to home independently. 03/08/22-03/13/22: ED/admission to [facility] with Covid-19, acute hypoxemic respiratory failure,left lower extremity weakness, general lower extremity weakness Reason for Hospital Admission: s/p CVA with LLE weakness and COVID with ARF Relevant Past Medical History: scabes, fibromyalgia,morbid obesity, PTSD, anxiety, Sjogren's syndrom, fatigue, GI problems, CVA, HLP, COVID-19 with hypoxic respiratory failure Response to Therapy Interventions: Good participation in activities, On-track to achieve discharge goals Occupational Therapy Problem List: Education Deficit;Safety Deficits;Impaired Self Care;Decreased Activity Tolerance;Decreased Range Of Motion;Decreased Strength;Functional Mobility Impairment;Balance Impaired Treatment Interventions: Education;Self Care / Home Management;Joint Mobility;Strengthening; Energy Conservation Training;Functional Mobility Training;Balance Training;Neuromuscular Re-education Plan for next visit: Bathing training, Bed mobility, Chair/commode transfer training, Cognition intervention, Dressing training, Energy conservation, Fall prevention, Grooming training, Standing tolerance, Standing balance, Toileting instruction Home Environment Patient Lives With: Self/Alone;Other: See Comment Assistance Available: PRN Entry To Home: Stairs Number Of Stairs Into Home: 3 (2-3 steps w/o rail) Number Of Stairs To Bed/Bath: 13 steps to living area (from garage) Stairs to Bed/Bath with: Unilateral Rail Tub/Shower Type: tub/shower Laundry: basement laundry Equipment Owned: Wheeled Walker;Rollator Prior Functional Level: Within Functional Limits Prior Functional Level Comments: ind without device. has to pull up for transfers, asceds/descends stairs laterally. 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 Patient Report: Pt agreeable to OT Learning/Educational Needs: Discharge Plan;Equipment;Function al Activities/Mobility;Julia n of Care;OT In-Hospital Exercise Program;Precautions;Familia abilitation Techniques and Procedures;Safety;Self Care;Respiratory Function;Stroke Education CURRENT FUNCTIONAL STATUS: Most recent performance Current Activities of Daily Living Assist Level Additional Information Feeding Independent Grooming Contact Guard Assistance Bathing Upper Body Minimal Assistance pt using long handled sponge for back- assist with thoroughness; seated EOB Bathing Lower Body Minimal Assistance assist for thoroughness for (B) feet; pt able to reach to ankles for washing while seated EOB; SBA for standing aspects of washing Dressing Upper Body Set Up Dressing Lower Body Minimal Assistance assist w/ gerber/doff socks; elastic laces put in shoes / with use of shoe horn - set up assist Toileting Minimal Assistance amb. to/rom bathroom ; able to complete clothing management and tammy care w/ CGA; likely to require some assist w/ posterior care Instrumental Activities of Daily Living Assist Level Additional Information Meal/Beverage Prep Minimal Assistance Cleaning Moderate Assistance Laundry Moderate Assistance Medication Management with Strategies Functional Mobility Assist Level Additional Information Rolling Supine to Sit Stand By Assistance Sit to Supine Stand By Assistance Scooting Stand By Assistance Sit to Stand Contact Guard Assistance Stand to Sit Contact Guard Assistance Bed to Chair Toilet/Commode Contact Guard Assistance Shower Functional Mobility Contact Guard Assistance Wheeled Walker Blank ford indicate activity not attempted Transitions: amb. to/from bathroom Balance: Static Sitting;Dynamic Sitting;Static Standing;Dynamic Standing Static Sitting Balance: Normal Patient able to maintain steady balance without handhold support Dynamic Sitting Balance: Good Patient accepts moderate challenge, able to maintain balance while picking up object off floor Static Standing Balance: Good Patient able to maintain balance without handhold support, limited postural sway Dynamic Standing Balance: Fair Patient accepts minimal challenge, able to maintain balance while turning head/trunk Activity Tolerance: Sitting (more content not included)... [facility] NURSING PROGon 03-15-2022 NURSING PROG HNO ID: [id number] Author: Diaz Mitchell RN Service: ? Author Type: Registered Nurse Type: Nursing Progress Note Filed: 03/16/2022 12:41 AM Note Text: Nursing Progress Note Patient Name: Bradley Matos Patient Location: / Daily Note: Pt needed to go to the bathroom and this RN asked her if she needed help getting her yellow non-slip socks on. She told this RN she doesn't wear them to the bathroom because they are a trip hazard. This RN educated pt about safety and fall risks. @2230, pt requesting to have all 4 bed rails up because she feels like she will not roll out of bed with them all up. This note was completed by: Diaz Begum [facility] NUTRITIONon 03-15-2022 NUTRITION HNO ID: [id number] Author: Ninfa De La Rosa RD Service: Nutrition Therapy Author Type: Registered Dietitian Type: Nutrition Filed: 03/15/2022 11:14 AM Note Text: NUTRITION THERAPY INITIAL ASSESSMENT SERVICE DATE: 03/15/2022 SERVICE TIME: 1058 Nutrition Assessment: Recommended Malnutrition Diagnosis: No Malnutrition Identified Nutrition Diagnosis: Problem: (Morbidly obese) Related to: (excessive caloric intake vs nutritional needs) As evidenced by: (BMI>39.9) Estimated kilocalorie needs: 5425-9238 Calorie Calculation Method: 25-30 kcals/kg Estimated protein needs (grams): 71-89 (promote LBM) Grams protein determined by: 1.2 - 1.5 g/kg Care Plan: Change diet to carb controlled (elevated BS with use of steroid, discussed with patient and agreeable.) Monitor and Evaluation: Meet greater than 75% of estimated needs;Monitor bowel function;Monitor fluid/electrolyte balance;Monitor labs, I/Os, vital signs, weight Discharge Recommendations: Diet Diet: regular healthy diet HPI: 56 year old female with PMHx of PTSD, anxiety, fibromyalgia who was admitted to [facility] on 03/13/22 for aftercare following COVID-19, recent CVA and LE weakness. Intake History: Nutrition Intake Prior to Admission: Greater than 75% estimated energy needs greater than or equal to 1 month Current Intake: Greater than 75% estimated energy needs Over: x 1 day. Pt reports no chewing/swallowing issues, no N/V/D. Follows a high fiber diet at home due to GI issues ("everything but crohns"). Consumes good protein sources. Educated on importance of scott/protein for healing and strength. Diet Orders (From admission, onward) Start Ordered 03/13/22 1845 DIET REGULAR START NOW 03/13/22 1833 Anthropometrics: Height: 167.6 cm (5' 6") Weight: (!) 151.6 kg (334 lb 3.2 oz) Dosing Weight: 59 kg (130 lb) Usual Weight: 149.7 kg (330 lb) Usual Weight Obtained From: Chart Review Body mass index is 53.94 kg/m?. Morbidly Obese Weight change percentage over time: no recent wts to report on, no sig wt changes x 3 years or per pt interview. Physical Exam: Subcutaneous fat loss: No fat loss Muscle loss: No muscle loss Potential micronutrient deficiency: No deficiency identified Edema/Ascites: Lower extremities Lower Extremity: Non-pitting GI Symptoms: None Functional Status: Unable to assess Potential Signs of Inflammation: Chronic condition;Hyperglycemia ;Hypoalbuminemia;Microb iologic cultures MNT Billing: $ Initial Assessment: 1-15 minutes SIGNATURE: Ninfa De La Rosa RD PATIENT NAME: Bradley Matos DATE: March 15, 2022 TIME: 10:31 AM [facility] THERAPY NTon 03-15-2022 THERAPY NT HNO ID: [id number] Author: Radha Horowitz PTA Service: Physical Therapy Author Type: Supervisor Cabinetmaker Type: Therapy (PT/OT/Speech/Resp) Filed: 03/15/2022 1:41 PM Note Text: Attestation signed by Melonie Carvalho PT at 03/15/2022 3:23 PM I reviewed and agree with the documentation corresponding to this therapy visit. SIGNATURE: Melonie Carvalho PT DATE: March 15, 2022 TIME: 3:23 PM PHYSICAL THERAPY MISSED VISIT SERVICE DATE: 03/15/2022 SERVICE TIME: 1339 to 1340 ROOM: [place] [address] Patient not seen due to Declined.Patient stated she is hurting more because of the weather and that little bit we did this AM , I dont want to do anymore today. SIGNATURE: Radha Horowitz PTA PATIENT NAME: Bradley Matos DATE: March 15, 2022 TIME: 1:40 PM [facility] THERAPY NT HNO ID: [id number] Author: Radha Horowitz PTA Service: Physical Therapy Author Type: Supervisor Cabinetmaker Type: Therapy (PT/OT/Speech/Resp) Filed: 03/15/2022 12:55 PM Note Text: Attestation signed by Melonie Carvalho PT at 03/15/2022 3:23 PM I reviewed and agree with the documentation corresponding to this therapy visit. SIGNATURE: Melonie Carvalho PT DATE: March 15, 2022 TIME: 3:23 PM Physical Therapy [facility] SERVICE DATE: 03/15/2022 SERVICE TIME: 1120 to 1145 ROOM: [place] [address] Recommended Discharge Disposition: Home PT Recommended Discharge Disposition Comments: Due to current clinical presentation, improved functional mobility, and good motivation/support, patient has good prognosis of returning to home in 1 week. Anticipated Discharge Needs: Equipment Recommended Discharge Equipment: (Bariatric walker) PT 6 Clicks Score: 20 Precaution/Activity Restriction Comments: Post-CVA with left sided deficits; COVID-19 isolation initiated 03/13/22 Isolation Type: Contact AND Droplet Precautions-Plus Eyewear Current Hospital Course: 03/13/22: Admitted to [facility] on 03/13 for rehabilitation in anticipation of transition to home independently. 03/08/22-03/13/22: ED/admission to [facility] with Covid-19, acute hypoxemic respiratory failure,left lower extremity weakness, general lower extremity weakness Reason for Hospital Admission: s/p CVA with LLE weakness and COVID with ARF Relevant Past Medical History: scabes, fibromyalgia,morbid obesity, PTSD, anxiety, Sjogren's syndrom, fatigue, GI problems, CVA, HLP, COVID-19 with hypoxic respiratory failure Response to Therapy Interventions: Limited participation, Low activity tolerance Assessment Comments: painful B knees inhibit activity Physical Therapy Problem List: Edema;Pain;Impaired Self Care;Decreased Activity Tolerance;Decreased Range Of Motion;Decreased Strength;Functional Mobility Impairment;Balance Impaired Treatment Interventions: Education;Self Care / Home Management;Energy Conservation Training;Joint Mobility;Strengthening; Functional Mobility Training;Balance Training;Neuromuscular Re-education;Edema Management Plan for next visit: Exercise instruction/handout;Gai t training Home Environment Patient Lives With: Self/Alone;Other: See Comment Assistance Available: PRN Entry To Home: Stairs Number Of Stairs Into Home: 3 (2-3 steps w/o rail) Number Of Stairs To Bed/Bath: 13 steps to living area (from garage) Stairs to Bed/Bath with: Unilateral Rail Tub/Shower Type: tub/shower Laundry: basement laundry Equipment Owned: Wheeled Walker;Rollator Prior Functional Level: Within Functional Limits Prior Functional Level Comments: ind without device. has to pull up for transfers, asceds/descends stairs laterally. 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 Patient Report: B LE are sore I can tell its going to rain I cant do much they hurt CURRENT FUNCTIONAL STATUS: Most recent performance Current Functional Mobility Assist Level Additional Information Rolling Modified Independent Supine to Sit Modified Independent Sit to Supine Modified Independent Scooting Contact Guard Assistance Sit to Stand Contact Guard Assistance (vc for use of UE with transfers) Stand to Sit Contact Guard Assistance Bed to Chair Contact Guard Assistance;Additional Information Bed To Chair Transfer Type: Stepping Bed To Chair Transfer Equipment: Wheeled Walker Toilet/Commode Gait Contact Guard Assistance Gait Device: Wheeled Walker Gait Distance (feet): 15 ft. x 3 Stairs Curb Step Car Transfer Blank ford indicate activity not attempted General Deviations/Observations : Tenisha decreased;Difficulty changing direction/turning;Step length decreased Functional Performance Test Functional Performance Test: 30 Second Sit to Stand 30 Second Sit To Stand (count): 14 30 Second Sit To Stand Gait Device: Wheeled walker Learning/Educational Needs: Discharge Plan;Plan of Care;Changes in Plan of Care;Functional Activities/Mobility Goals for Plan of Care: Plan of Care developed with: Patient Patient /Caregiver Goals: Care For Self;Go Home Goals: Patient will demonstrate understanding of importance of mobility during hospital stay and resolve all functional needs identified.;Patient will demonstrate progress with functional mobility to allow safe discharge to home with available support and/or physical assistance. Able to perform HEP with: Modified Independent Rolling with: Modified Independent Transfer supine to/from sit with: Modified Independent Transfer sit to/from stand with: Modified Independent Ambulate with: Modified Independent Distance: 100' Device: Wheeled Walker;No Device Ambulate up and down steps with: Stand By Assistance (more content not included)... [facility] THERAPY NT HNO ID: [id number] Author: Cassandra Mello OTR/Tatum Service: Occupational Therapy Author Type: Occupational Therapist Type: Therapy (PT/OT/Speech/Resp) Filed: 03/15/2022 11:20 AM Note Text: Occupational Therapy [facility] SERVICE DATE: 03/15/2022 SERVICE TIME: 1013 to 1107 ROOM: [place] [address] Recommended Discharge Disposition: Home OT Recommended Discharge Disposition Comments: pt louis to d/c w/ assist from HHT Anticipated Discharge Needs: Equipment OT 6 Clicks Score: 19 Precaution/Activity Restriction Comments: Post-CVA with left sided deficits; COVID-19 isolation initiated 03/13/22 Isolation Type: Contact AND Droplet Precautions-Plus Eyewear Current Hospital Course: 03/13/22: Admitted to [facility] on 03/13 for rehabilitation in anticipation of transition to home independently. 03/08/22-03/13/22: ED/admission to [facility] with Covid-19, acute hypoxemic respiratory failure,left lower extremity weakness, general lower extremity weakness Reason for Hospital Admission: s/p CVA with LLE weakness and COVID with ARF Relevant Past Medical History: scabes, fibromyalgia,morbid obesity, PTSD, anxiety, Sjogren's syndrom, fatigue, GI problems, CVA, HLP, COVID-19 with hypoxic respiratory failure Response to Therapy Interventions: Good participation in activities, On-track to achieve discharge goals Assessment Comments: pt with good functional use and ROM during ADLs Occupational Therapy Problem List: Education Deficit;Safety Deficits;Impaired Self Care;Decreased Activity Tolerance;Decreased Range Of Motion;Decreased Strength;Functional Mobility Impairment;Balance Impaired Treatment Interventions: Education;Self Care / Home Management;Joint Mobility;Strengthening; Energy Conservation Training;Functional Mobility Training;Balance Training;Neuromuscular Re-education Plan for next visit: Bathing training, Bed mobility, Chair/commode transfer training, Cognition intervention, Dressing training, Energy conservation, Fall prevention, Grooming training, Standing tolerance, Standing balance, Toileting instruction Home Environment Patient Lives With: Self/Alone;Other: See Comment Assistance Available: PRN Entry To Home: Stairs Number Of Stairs Into Home: 3 (2-3 steps w/o rail) Number Of Stairs To Bed/Bath: 13 steps to living area (from garage) Stairs to Bed/Bath with: Unilateral Rail Tub/Shower Type: tub/shower Laundry: basement laundry Equipment Owned: Wheeled Walker;Rollator Prior Functional Level: Within Functional Limits Prior Functional Level Comments: ind without device. has to pull up for transfers, asceds/descends stairs laterally. 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 Patient Report: pt asking to get washed up; Learning/Educational Needs: Discharge Plan;Equipment;Function al Activities/Mobility;Julia n of Care;OT In-Hospital Exercise Program;Precautions;Familia abilitation Techniques and Procedures;Safety;Self Care;Respiratory Function;Stroke Education CURRENT FUNCTIONAL STATUS: Most recent performance Current Activities of Daily Living Assist Level Additional Information Feeding Independent Grooming Contact Guard Assistance Bathing Upper Body Minimal Assistance pt using long handled sponge for back- assist with thoroughness; seated EOB Bathing Lower Body Minimal Assistance assist for thoroughness for (B) feet; pt able to reach to ankles for washing while seated EOB; SBA for standing aspects of washing Dressing Upper Body Set Up Dressing Lower Body Moderate Assistance;Stand By Assistance pt able to gerber briefs and shorts w/ SBA; likely to require assist for socks/shoes Toileting Minimal Assistance amb. to/rom bathroom ; able to complete clothing management and tammy care w/ CGA; likely to require some assist w/ posterior care Instrumental Activities of Daily Living Assist Level Additional Information Meal/Beverage Prep Minimal Assistance Cleaning Moderate Assistance Laundry Moderate Assistance Medication Management with Strategies Functional Mobility Assist Level Additional Information Rolling Supine to Sit Stand By Assistance Sit to Supine Stand By Assistance Scooting Stand By Assistance Sit to Stand Contact Guard Assistance Stand to Sit Contact Guard Assistance Bed to Chair Toilet/Commode Contact Guard Assistance Shower Functional Mobility Contact Guard Assistance Wheeled Walker Blank ford indicate activity not attempted Transitions: amb. to/from bathroom Balance: Static Sitting;Dynamic Sitting;Static Standing;Dynamic Standing Static Sitting Balance: Normal Patient able to maintain steady balance without handhold support Dynamic Sitting Balance: Good Patient accepts moderate challenge, able to maintain balance while picking up object off floor Static Standing Balance: Good Patient able to maintain balance without handhold support, limited postural sway Dynamic Standing Balance: Fair Patient accepts minimal c (more content not included)... [facility] ALLIED HEALTHon 03-14-2022 ALLIED HEALTH HNO ID: [id number] Author: Mundo Quiros II Service: Infection Prevention Author Type: ? Type: Allied Health Filed: 03/14/2022 8:12 AM Note Text: ISOLATION NOTE Admission Date: 03/13/2022 Type of Isolation Recommended: Contact and Droplet Precautions Plus Eyewear (Cranberry Isolation Sign) Indication: COVID-19 ? Maintain Contact/Droplet and Eyewear isolation signage ? Remain in private room or cohort when deemed appropriate ? Don an N95 (or PAPR) prior to entering the patient room ? Avoid entering room during aerosol generating procedure when possible ? Restrict room access to essential personnel only ? Contact Infection Prevention prior to discontinuing precautions when criteria are met ? Limit transport and movement of the patient to medically necessary purposes Date Isolation Initiated: 03/13/2022 Anticipated Duration of Isolation: In consultation with Infection Prevention Type and Date of Positive Test(s): Positive for COVID19 in specimen collected 03/09/2022. SIGNATURE: Mundo Quiros II PATIENT NAME: Bradley Matos DATE: March 14, 2022 TIME: 8:11 AM PAGER/CONTACT #: Infection Prevention, [id number] Infection Prevention after hours/weekend pager: [phone] [facility] HISTORY PHYSICALon HISTORY PHYSICAL HNO ID: [id number] Author: Melba Gutierrez DO Service: Family Practice Author Type: Physician Type: HANDP Filed: 03/17/2022 7:34 PM Note Text: DEPARTMENT OF HOSPITAL MEDICINE HISTORY AND PHYSICAL EXAM SERVICE DATE: 03/14/2022 SERVICE TIME: 6:25 PM Primary Care Physician: Didier Hicks MD NIGHT AND WEEKEND COVERAGE: Dr. Gutierrez 7A-7P, [facility] physicians 7P-7A Subjective CHIEF COMPLAINT: Weakness, covid 19 HPI: This is a 56 year old female with a past history of anxiety, fibromyalgia, and sjogren's syndrome who presents to [facility] for rehab after hospitalization at [facility] for covid 19. Pt has slight cough, fatigue. She denies fever, headache, diarrhea, nausea or vomiting. She has a history of GERD. She takes aciphex tid prn. She has a history of depression, since she lost her 2 year old son in a fatal accident 20 years ago. She admits to having bad days, but denies thinking about ending her life. SUICIDE RISK ASSESSMENT ? SUICIDAL IDEATIONS: Suicidal thoughts ? RECENT ACUTE EVENTS: Loss of 2 year old son 20 years ago, recent illness ? LETHALITY FACTORS: Access to Means: Any firearms in home? No Moved a firearm recently? No Any current suicide plan not involving firearm? No Demographic Factors: Marital Status: Single Ethnicity: White(Highest risk is ) Gender: female (Highest risk is male) Age: [age] year old (Highest risk is >65) Family history of suicide? No Evidence of Intentional Self-Harm History of prior suicide attempts? No Past thoughts of self-harm? No Self-Mutilation: History of past self-mutilation without expressed suicide intent? No Sexual Orientation: Is patient homosexual or bisexual? No Recent Increase in Drug or Alcohol Use? No Rural or Isolated Home Environment? No ? PROTECTIVE FACTORS: Clinician Judgment of Insight: good Social Resources: Family or friends who are concerned about pt? Yes Lives with others? No Presence of Dependents(e.g. children, elderly parents, pets)? Yes Recent Psychiatric Inpatient Treatment? No Presence of Meaningful Daily Activities? Yes Currently employed? No Buddhism Affiliation? N/A Therapeutic Dale: Does pt believe treatment can help his/her negative feelings? Yes History of good medication compliance in past? Yes ? FORMULATION OF SUICIDE RISK: Low Will any interventions be undertaken to address above-listed Lethality or Protective Factors? (Assessment adapted from Suicide Prevention Toolkit for Implementation of NPSG 15A by [employer]) PAST MEDICAL HISTORY Diagnosis Date - Anxiety - Fatigue chronic fatigue syndrome - Fibromyalgia - GI problem UC and prior ulcers - Medial meniscus tear 12/19/2014 - Morbid obesity (HCC) - Post traumatic stress disorder (PTSD) - Scabies - Sjogren's syndrome (HCC) PAST SURGICAL HISTORY Procedure Laterality Date - ARTHROSCOPY KNEE DIAGNOSTIC W/WO SYNOVIAL BX SPX Left 01/19/15 Arthroscopy, knee - SECTION HX - UNL LAPAR WEDGE RESECTION SIGM COLON 10/30/2016 [facility] FAMILY HISTORY Problem Relation Age of Onset - None Brother - None Brother - Arthritis Mother - GI Mother - Hypertension Mother - Arthritis Brother - Cancer Brother - Emphysema Father - Heart Father - Stroke Father - Headache Brother - Heart Brother - Heart Brother - Psychiatry Brother - Seizures Brother Social History Tobacco Use - Smoking status: Never Smoker - Smokeless tobacco: Never Used Substance Use Topics - Alcohol use: No - Drug use: No MEDICATIONS: Reviewed dexAMETHasone (DECADRON) 6 mg tablet, Take 1 tablet by mouth once daily for 5 doses., Disp: 5 tablet, Rfl: 0, 03/13/2022 at Unknown time methocarbamol (ROBAXIN) 750 mg tablet, Take 750 mg by mouth four times daily., Disp: , Rfl: , 03/13/2022 at Unknown time lidocaine (SALONPAS) 4 % patch, Apply 1 application as directed once daily., Disp: , Rfl: , 03/13/2022 at Unknown time omeprazole (PRILOSEC) 20 mg capsule, Take 20 mg by mouth once daily., Disp: , Rfl: , Unknown at Unknown time amLODIPine (NORVASC) 10 mg tablet, Take 10 mg by mouth once daily., Disp: , Rfl: , 03/13/2022 at Unknown time atorvastatin (LIPITOR) 40 mg tablet, Take 40 mg by mouth once daily., Disp: , Rfl: , 03/13/2022 at Unknown time clopidogrel (PLAVIX) 75 mg tablet, Take 75 mg by mouth once daily., Disp: , Rfl: , 03/13/2022 at Unknown time acetaminophen (TYLENOL ARTHRITIS ORAL), Take by mouth., Disp: , Rfl: , 03/13/2022 at Unknown time calcium carbonate (TUMS) 500 mg chew, Take 1 tablet by mouth twice daily as needed (indigestion)., Disp: , Rfl: , 03/10/2022 loperamide (IMODIUM) 2 mg cap(s), Take 1 capsule by mouth three times daily as needed for diarrhea., Disp: , Rfl: , 03/11/2022 dicyclomine (BENTYL) 20 mg tablet, Take 20 mg by mouth every 6 hours as needed. , Disp: , Rfl: , Unknown at Unknown time hydrALAZINE (APRESOLINE) 10 mg tablet, Take 10 (more content not included)... [facility] NURSING PROGon 03-14-2022 NURSING PROG HNO ID: [id number] Author: Raina Lopes RN Service: Nursing Author Type: Registered Nurse Type: Nursing Progress Note Filed: 03/14/2022 7:21 PM Note Text: Nursing Progress Note Patient Name: Bradley Matos Patient Location: [place] [address] Daily Note: 1909 received report from carmen CAIN. Pt c/o knee, neck, and head discomfort and is requesting tylenol. Pt asking about her home reflux medication. Dr Gutierrez placed order, pt aware that she will supply her home medication and voices understanding. States that she will have her daughter bring medication in probably tomorrow. Will bring upon assessment. Denies further needs at this time, call light in reach. This note was completed by: Raina Lopes [facility] THERAPY NTon 03-14-2022 THERAPY NT HNO ID: [id number] Author: Cassandra Mello OTR/L Service: Occupational Therapy Author Type: Occupational Therapist Type: Therapy (PT/OT/Speech/Resp) Filed: 03/14/2022 12:13 PM Note Text: Occupational Therapy Snf Facility Evaluation SERVICE DATE: 03/14/2022 SERVICE TIME: 1115 to 1203 ROOM: [place] [address] Recommended Discharge Disposition: Home OT Recommended Discharge Disposition Comments: pt likley to d/c w/ assist from HHT Anticipated Discharge Needs: Equipment OT 6 Clicks Score: 19 Precaution/Activity Restriction Comments: Post-CVA with left sided deficits; COVID-19 isolation initiated 03/13/22 Isolation Type: Contact AND Droplet Precautions-Plus Eyewear Current Hospital Course: 03/13/22: Admitted to [facility] on 03/13 for rehabilitation in anticipation of transition to home independently. 03/08/22-03/13/22: ED/admission to [facility] with Covid-19, acute hypoxemic respiratory failure,left lower extremity weakness, general lower extremity weakness Reason for Hospital Admission: s/p CVA with LLE weakness and COVID with ARF Relevant Past Medical History: scabes, fibromyalgia,morbid obesity, PTSD, anxiety, Sjogren's syndrom, fatigue, GI problems, CVA, HLP, COVID-19 with hypoxic respiratory failure Response to Therapy Interventions: Good participation in activities, On-track to achieve discharge goals Assessment Comments: pt is demonstrating L sided weakness impacting her ability to complete ADL/IADLs independently and safely. Continue skilled needs due to: Safety concerns, Continued monitoring of vital signs during mobility required, Functional impairment Occupational Therapy Problem List: Education Deficit;Safety Deficits;Impaired Self Care;Decreased Activity Tolerance;Decreased Range Of Motion;Decreased Strength;Functional Mobility Impairment;Balance Impaired Cognition/Communication Deficits Follows Commands: 3-step Commands Treatment Interventions: Education;Self Care / Home Management;Joint Mobility;Strengthening; Energy Conservation Training;Functional Mobility Training;Balance Training;Neuromuscular Re-education Plan for next visit: Bathing training, Bed mobility, Chair/commode transfer training, Cognition intervention, Dressing training, Energy conservation, Fall prevention, Grooming training, Standing tolerance, Standing balance, Toileting instruction Home Environment Patient Lives With: Self/Alone;Other: See Comment Assistance Available: PRN Entry To Home: Stairs Number Of Stairs Into Home: 3 (2-3 steps w/o rail) Number Of Stairs To Bed/Bath: 13 steps to living area (from garage) Stairs to Bed/Bath with: Unilateral Rail Tub/Shower Type: tub/shower Laundry: basement laundry Equipment Owned: Wheeled Walker;Rollator Prior Functional Level: Within Functional Limits Prior Functional Level Comments: ind without device. has to pull up for transfers, asceds/descends stairs laterally. 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 Patient Report: Pt agreeable to OT Learning/Educational Needs: Discharge Plan;Equipment;Function al Activities/Mobility;Julia n of Care;OT In-Hospital Exercise Program;Precautions;Famliia abilitation Techniques and Procedures;Safety;Self Care;Respiratory Function;Stroke Education CURRENT FUNCTIONAL STATUS: Most recent performance Current Activities of Daily Living Assist Level Additional Information Feeding Independent Grooming Contact Guard Assistance Bathing Upper Body Minimal Assistance Bathing Lower Body Moderate Assistance Dressing Upper Body Set Up Dressing Lower Body Moderate Assistance (may benefit from elastic laces and shoe horn) Toileting Minimal Assistance amb. to/rom bathroom ; able to complete clothing management and tammy care w/ CGA; likely to require some assist w/ posterior care Instrumental Activities of Daily Living Assist Level Additional Information Meal/Beverage Prep Minimal Assistance Cleaning Moderate Assistance Laundry Moderate Assistance Medication Management with Strategies Functional Mobility Assist Level Additional Information Rolling Supine to Sit Stand By Assistance Sit to Supine Stand By Assistance Scooting Stand By Assistance Sit to Stand Contact Guard Assistance Stand to Sit Contact Guard Assistance Bed to Chair Toilet/Commode Contact Guard Assistance Shower Functional Mobility Contact Guard Assistance Wheeled Walker Blank ford indicate activity not attempted Transitions: amb. to/from bathroom Balance: Static Sitting;Dynamic Sitting;Static Standing;Dynamic Standing Static Sitting Balance: Normal Patient able to maintain steady balance without handhold support Dynamic Sitting Balance: Good Patient accepts moderate challenge, able to maintain balance while picking up object off floor Static Standing Balance: Good Patient able to maintain balance without handhold support, limited postural sway Dynamic Standing Balance: Fair Patient accepts minimal challenge (more content not included)... [facility] THERAPY NT HNO ID: [id number] Author: Melonie Carvalho PT Service: Physical Therapy Author Type: Physical Therapist Type: Therapy (PT/OT/Speech/Resp) Filed: 03/14/2022 10:59 AM Note Text: Summary: PT Evaluation Physical Therapy Snf Facility Evaluation SERVICE DATE: 03/14/2022 SERVICE TIME: 0950 to 1050 ROOM: [place] [address] Recommended Discharge Disposition: Home PT Recommended Discharge Disposition Comments: Due to current clinical presentation, improved functional mobility, and good motivation/support, patient has good prognosis of returning to home in 1 week. Anticipated Discharge Needs: Equipment Recommended Discharge Equipment: (Bariatric walker) PT 6 Clicks Score: 20 Precaution/Activity Restriction Comments: Post-CVA with left sided deficits; COVID-19 isolation initiated 03/13/22 Isolation Type: Contact AND Droplet Precautions-Plus Eyewear Current Hospital Course: 03/13/22: Admitted to [facility] on 03/13 for rehabilitation in anticipation of transition to home independently. 03/08/22-03/13/22: ED/admission to [facility] with Covid-19, acute hypoxemic respiratory failure,left lower extremity weakness, general lower extremity weakness Reason for Hospital Admission: s/p CVA with LLE weakness and COVID with ARF Relevant Past Medical History: scabes, fibromyalgia,morbid obesity, PTSD, anxiety, Sjogren's syndrom, fatigue, GI problems, CVA, HLP, COVID-19 with hypoxic respiratory failure Response to Therapy Interventions: Improved tolerance for activity, Good participation in activities Continue skilled needs due to: Functional mobility/skill impairments, Continued monitoring of vital signs during mobility required Physical Therapy Problem List: Edema;Pain;Impaired Self Care;Decreased Activity Tolerance;Decreased Range Of Motion;Decreased Strength;Functional Mobility Impairment;Balance Impaired Treatment Interventions: Education;Self Care / Home Management;Energy Conservation Training;Joint Mobility;Strengthening; Functional Mobility Training;Balance Training;Neuromuscular Re-education;Edema Management Plan for next visit: Exercise instruction/handout;Gai t training Home Environment Patient Lives With: Self/Alone;Other: See Comment Assistance Available: PRN Entry To Home: Stairs Number Of Stairs Into Home: 3 (2-3 steps intp home no rails) Number Of Stairs To Bed/Bath: 13 steps to living area (from garage) Stairs to Bed/Bath with: Unilateral Rail (hangs onto half wall on the otherside) Tub/Shower Type: tub/shower Laundry: basement laundry Equipment Owned: Wheeled Walker;Rollator (Needs bariatric walker) Prior Functional Level: Within Functional Limits Prior Functional Level Comments: ind without device. has to pull up for transfers, asceds/descends stairs laterally. sleeps on couch in sidelyng Patient Report: Patient reports she was at [employer] with CVA and she was admitted to [facility]. She was exposed to another patient with COVID. She has problems with PT and PA, police was notified due to patient unable to get off bedpan on her own with her tossing call light to table. She signed herself out of [facility] rehab in [place]. Discharged home a week post CVA, walked up 13 stairs with daughter feeling progressively worse, EMS was called, re-admitted to [facility]. CURRENT FUNCTIONAL STATUS: Most recent performance Current Functional Mobility Assist Level Additional Information Rolling Modified Independent Supine to Sit Modified Independent Sit to Supine Modified Independent Scooting Contact Guard Assistance Sit to Stand Contact Guard Assistance Stand to Sit Contact Guard Assistance Bed to Chair Contact Guard Assistance;Additional Information Bed To Chair Transfer Type: Stepping Bed To Chair Transfer Equipment: Wheeled Walker Patient prefers walker height high Toilet/Commode Gait Contact Guard Assistance Gait Device: Wheeled Walker Gait Distance (feet): 25' Stairs Curb Step Car Transfer Blank ford indicate activity not attempted General Deviations/Observations : Tenisha decreased;Difficulty changing direction/turning;Step length decreased Functional Performance Test Functional Performance Test: 30 Second Sit to Stand 30 Second Sit To Stand (count): 14 30 Second Sit To Stand Gait Device: Wheeled walker Learning/Educational Needs: Discharge Plan;Plan of Care;Changes in Plan of Care;Functional Activities/Mobility Goals for Plan of Care: Plan of Care developed with: Patient Patient /Caregiver Goals: Care For Self;Go Home Goals: Patient will demonstrate understanding of importance of mobility during hospital stay and resolve all functional needs identified.;Patient will demonstrate progress with functional mobility to allow safe discharge to home with available support and/or physical assistance. Able (more content not included)... [facility] CASE MANAGEMon 03-13-2022 CASE MANAGEM HNO ID: [id number] Author: ANH Carrillo Service: ? Author Type: Engine Lathe Set Up Operator Tool Type: Care Mgt Progress Note Filed: 03/13/2022 12:48 PM Note Text: CARE MANAGEMENT DISCHARGE NOTE SERVICE DATE: 03/13/2022 SERVICE TIME: 12:40 pm LOS: 4 days Admission Date: 03/08/2022 DISCHARGE ARRANGEMENT (list agency and phone number) Discharge Arrangement: Snf Facility Was an expedited discharge program used?: No Provider Name: [facility] CAREGIVER ASSESSMENT: Caregiver is ready, willing and able to meet the patient's needs as recommended by the inter-professional team:: Yes Patient's transition needs and plan for meeting these needs: DC to SNF HANDOFF COMMUNICATION: Handoff to: Primary Care Physician Primary Care Physician Name/Phone: Dr. Hicks [phone] TRANSPORTATION ARRANGEMENTS: Transportation Arrangements: Car Discharge Information Row Name ED to Hosp-Admission (Current) from 03/08/2022 [facility] Copy Given: Yes Copy given to:: Patient Method: By Phone SW spoke with pt regarding [facility] ([facility] able to accept). Now [facility] able to accept. Pt chose [facility]. [facility] informed of the pt's d/c. Pt confirmed daughter to transport within an hour. Envelope on chart. RN updated with d/c plan. No other d/c needs identified at this time. SIGNATURE: ANH Carrillo PATIENT NAME: Bradley Matos DATE: March 13, 2022 TIME: 12:45 PM PAGER/CONTACT #: [phone] [facility] CASE MANAGEM HNO ID: [id number] Author: ANH Carrillo Service: ? Author Type: Engine Lathe Set Up Operator Tool Type: Care Mgt Progress Note Filed: 03/13/2022 9:06 AM Note Text: CARE MANAGEMENT PROGRESS NOTE SERVICE DATE: 03/13/2022 SERVICE TIME: 9:06 am LOS: 4 days EMR reviewed. Pt on IV Decadron. Plan to continue at this time. Message sent to attending physician and ID to see if pt needs full 10 day course IV Decadron. [facility] can both accept the pt however pt wants to go to [facility] ([facility] unable to accept). Per RN CM notes, pt believes she is still in the hospital until she is 10 days post +Covid test. CM plant supervisor informed. SIGNATURE: ANH Carrillo PATIENT NAME: Bradley Matos DATE: March 13, 2022 TIME: 9:04 AM PAGER/CONTACT #: [phone] Normal [facility] CBC panel Auto (Bld)on 03-13 Erythrocyte distribution width (RBC) [Ratio] 14.7 % Normal 11.5-15.0 [facility] Comment on above: Order Comment: Speci men Type: BLOOD SPECIMENOrdering Facility: [facility] Address: [address] [place] [address] Performed By: #### 5 8410-2 ####L[facility] LABORATORYCLIA [id number] [place] [address] [place] Hematocrit (Bld) [Volume fraction] 40.7 % Normal 36.0-46.0 [facility] Comment on above: Order Comment: Speci men Type: BLOOD SPECIMENOrdering Facility: [facility] Address: [address] [address] Performed By: #### 5 8410-2 ####LAMBERT LABORATORYCLIA [id number] [place] [address] [place] Hemoglobin (Bld) [Mass/Vol] 13.2 g/dL Normal 11.5-15.5 [facility] Comment on above: Order Comment: Speci men Type: BLOOD SPECIMENOrdering Facility: [facility] Address: [address] [address] Performed By: #### 5 8410-2 ####LAMBERT LABORATORYCLIA [id number] [address] MCH (RBC) [Entitic mass] 29.0 pg Normal 26.0-34.0 [facility] Comment on above: Order Comment: Speci men Type: BLOOD SPECIMENOrdering Facility: [facility] Address: [address] [place] [address] Performed By: #### 5 8410-2 ####LAMBERT LABORATORYCLIA [id number] [address] MCHC (RBC) [Mass/Vol] 32.4 g/dL Normal 30.5-36.0 [facility] Comment on above: Order Comment: Speci men Type: BLOOD SPECIMENOrdering Facility: [facility] Address: [address] [place] [address] Performed By: #### 5 8410-2 ####LAMBERT LABORATORYCLIA [id number] [address] MCV (RBC) [Entitic vol] 89.5 fL Normal 80.0-100.0 [facility] Comment on above: Order Comment: Speci men Type: BLOOD SPECIMENOrdering Facility: [facility] Address: [address] [place] [address] Performed By: #### 5 8410-2 ####LAMBERT LABORATORYCLIA [id number] [address] Nucleated RBC (Bld) [#/Vol] 10*3/uL Normal <0.01 [facility] Comment on above: Order Comment: Speci men Type: BLOOD SPECIMENOrdering Facility: [facility] Address: [address] [place] [address] Performed By: #### 5 8410-2 ####LAMBERT LABORATORYCLIA [id number] [address] Platelet mean volume (Bld) [Entitic vol] 9.8 fL Normal 9.0-12.7 [facility] Comment on above: Order Comment: Speci men Type: BLOOD SPECIMENOrdering Facility: [facility] Address: [address] [place] [address] Performed By: #### 5 8410-2 ####LAMBERT LABORATORYCLIA [id number] [address] [place] Platelets (Bld) [#/Vol] 279 10*3/uL Normal 150-400 [facility] Comment on above: Order Comment: Speci men Type: BLOOD SPECIMENOrdering Facility: [facility] Address: [address] [place] [address] Performed By: #### 5 8410-2 ####LAMBERT LABORATORYCLIA [id number] [place] [address] [place] RBC (Bld) [#/Vol] 4.55 10*6/uL Normal 3.90-5.20 [facility] Comment on above: Order Comment: Speci men Type: BLOOD SPECIMENOrdering Facility: [facility] Address: [address] [place] [address] Performed By: #### 5 8410-2 ####LAMBERT LABORATORYCLIA [id number] [address] [place] WBC (Bld) [#/Vol] 9.44 10*3/uL Normal 3.70-11.00 [facility] Comment on above: Order Comment: Speci men Type: BLOOD SPECIMENOrdering Facility: [facility] Address: [address] [place] [address] Performed By: #### 5 8410-2 ####LAMBERT LABORATORYCLIA [id number] [place] [id number] [facility] [place] CNDSon 03-13-2022 CNDS HNO ID: [id number] Author: Eddy Rebolledo MD Service: General Internal Medicine Author Type: Physician Type: Discharge Summary Filed: 03/13/2022 2:45 PM Note Text: DISCHARGE SUMMARY PATIENT NAME: Bradley Matos Code Status: Not on file Highest Readmission Risk Score: 18 The 30 day readmissions risk score is derived from an internally validated risk model which evaluates patient level characteristics, utilization history, medication orders and lab results up until the day of discharge. Patients with a score of 40 or above are considered highest risk for readmission. Specific patient level drivers will be listed at the bottom of the summary. Admission Information Admission Information ADMIT DATE: 03/08/2022 DISCHARGE DATE: 03/13/22 MY DOCTORS AND MEDICAL TEAM: My Main Hospital Doctor: Eddy Rebolledo MD Primary Care Provider: Didier Hicks MD My Medical Team Members: Treatment Team: Attending Provider: Eddy Rebolledo MD Consulting: Kurt Evans MD MY CONDITION AT DISCHARGE: Fair REASON I WAS IN THE HOSPITAL: COVID 19 infection Acute hypoxemic resp. Failure HTN Recent CVA HLP SUMMARY OF WHAT HAPPENED WHILE I WAS IN THE HOSPITAL: You were admitted from the emergency department on 03/08/2022 for leg weakness, right leg weakness, and COVID-[address] Eddy Rebolledo MD. It was determined you would benefit from admission to the hospital. You were in the hospital for 4 days. You had routine labs, UA, chest x-ray (showing no acute abnormality), and US DVT bilateral lower extremities (negative) while in the hospital. You were given your daily medications as well as IV dexamethasone and Remdesivir for COVID-19 virus infection. Supplemental oxygen was administered. You were seen by specialists from Infectious Disease. You completed 5 days of Remdesivir. You will continue taking oral dexamethasone to complete 10 days of treatment. PT and OT recommended discharge to a senior care facility. You will be discharged to SNF. Please follow-up with your PCP in 1-2 weeks. OTHER PROBLEMS/DIAGNOSIS: Principal Problem: Leg weakness Active Problems: Recent cerebrovascular accident (CVA) COVID-19 virus infection Right leg weakness COVID-19 Resolved Problems: Nausea OPERATIONS PERFORMED WHILE IN THE HOSPITAL: None IMPORTANT TEST/PROCEDURES: No procedures performed TEST RESULTS NOT AVAILABLE AT THIS TIME: No pending results Discharge Disposition Discharge Disposition: Snf Facility - Less than 30 Days Activity When You Leave the Hospital Resume pre-hospital activity Diet Instructions Resume your pre-hospital diet For Pain When You Leave the Hospital Use acetaminophen (Tylenol) as recommended on the bottle Call Your Doctor If You have lightheadedness, fainting, or confusion You have persistent nausea/vomiting over 24 hours You have swollen glands or cold and clammy skin Your temperature is greater than 101F Follow Up Appointments Follow-Up Appointment When: In 1 week Didier Hicks [phone] [facility]woodA[facility] [address] [facility] [address] [facility] [address] PCP Requested Referral Additional Provider to Provider Information: You were admitted from the emergency department on 03/08/2022 for leg weakness, right leg weakness, and COVID-[address] Eddy Rebolledo MD. It was determined you would benefit from admission to the hospital. You were in the hospital for 4 days. You had routine labs, UA, chest x-ray (showing no acute abnormality), and US DVT bilateral lower extremities (negative) while in the hospital. You were given your daily medications as well as IV dexamethasone and Remdesivir for COVID-19 virus infection. Supplemental oxygen was administered. You were seen by specialists from Infectious Disease. You completed 5 days of Remdesivir. You will continue taking oral dexamethasone to complete 10 days of treatment. PT and OT recommended discharge to a senior care facility. You will be discharged to SNF. Please follow-up with your PCP in 1-2 weeks. Transitions of Care Critical Issues: Discharge to SNF LABS AND PROCEDURES PENDING AT DISCHARGE: FOLLOW-UP APPOINTMENTS ALREADY SCHEDULED WITH A [facility] PROVIDER: No future appointments. ALLERGIES Allergen Reactions - Permethrin Rash - Asa [Salicylates] GI Upset - Ciprofloxacin Itching - Darvon [Propoxyphen* Unknown - Dilaudid [Hydromorp* Other: See Comments bp crashes - Iodine Vomiting - Morphine Intolerance - Nucynta [Tapentadol] Swelling Swelling in the esophagus - Propofol Shortness of Breath, Other: See Comments Blood pressure was low - Skelaxin [Metaxalon* Itching - Sulfa Dyne Unknown - Tetracycline Rash - Tramadol Other: See Comments Vomiting, disoriented, shaking - Zantac [Ranitidine * Vomiting DISCHARGE MEDICATION: Current Discharge Medication List START taking these medications calcium carbonate (VLADISLAV (more content not included)... Normal [facility] CONSULT PROGon 03-13-2022 CONSULT PROG HNO ID: [id number] Author: Kurt Evans MD Service: Infectious Disease Author Type: Physician Type: Consult Progress Note Filed: 03/13/2022 10:55 AM Note Text: INFECTIOUS DISEASE PROGRESS NOTE Patient Name: Bradley Matos INTERVAL HISTORY: Cough +. SOB is better. Sats slowly improving to 97% on 2L NC O2. No fevers. ROS checked in details. All qs answered. Patient Active Hospital Problem List: Leg weakness (05/01/2015) Recent cerebrovascular accident (CVA) (03/09/2022) Nausea (03/09/2022) COVID-19 virus infection (03/09/2022) Right leg weakness (03/09/2022) COVID-19 (03/09/2022) ASSESSMENT: COVID-19 Acute hypoxemia Recent cerebrovascular accident Nausea Elevated CRP and D-dimer Ulcerative colitis Morbid obesity Sjogren?s syndrome. ? PLAN: C/W Decadron x 10 days Completed Remdesivir x 5 days Repeat D dimer Duplex US legs is indeterminate but D dimer is improved to 900 Monitor off abx Wean O2 as able OK to discharge to rehab from ID perspective MEDICATIONS: reviewed. Current Facility-Administered Medications Medication Dose Route Frequency - sodium chloride 0.9 % (flush) 3-5 mL (BD POSIFLUSH) 3-5 mL INTRAVENOUS q 12 H - NaCl 0.9% iv flush bag 20 mL INTRAVENOUS PRN - acetaminophen 650 mg tab(s) (TYLENOL) 650 mg ORAL q 6 H PRN - dexAMETHasone 6 mg (DECADRON) 6 mg ORAL DAILY Or - dexAMETHasone sodium phosphate 6 mg injection (DECADRON) 6 mg INTRAVENOUS DAILY - lidocaine 4 % 2 Patch (SALONPAS) 2 Patch TRANSDERMAL DAILY And - lidocaine patch - REMOVE OTHER AT BEDTIME And - lidocaine - VERIFY PATCH OTHER q 8 H - hydrALAZINE 10 mg tab(s) (APRESOLINE) 10 mg ORAL QID PRN - methocarbamol 750 mg tab(s) (ROBAXIN) 750 mg ORAL QID - docusate sodium 100 mg cap(s) (COLACE) 100 mg ORAL BID PRN - amLODIPine 10 mg tab(s) (NORVASC) 10 mg ORAL DAILY - atorvastatin 40 mg tab(s) (LIPITOR) 40 mg ORAL DAILY - clopidogrel 75 mg tab(s) (PLAVIX) 75 mg ORAL DAILY - capsaicin 0.025 % cream (ZOSTRIX) TOPICAL BID - loperamide 2 mg cap(s) (IMODIUM) 2 mg ORAL TID PRN - calcium carbonate 500 mg chewable tab(s) (TUMS) 500 mg ORAL BID PRN - pantoprazole DR 20 mg tab(s) (PROTONIX) 20 mg ORAL DAILY - heparin 5,000 Units injection 5,000 Units SUBCUTANEOUS q 8 H - dicyclomine 20 mg cap(s) (BENTYL) 20 mg ORAL q 6 H PRN PHYSICAL EXAM: Vital signs: BP 131/60 Pulse (!) 59 Temp 36.3 ?C (97.3 ?F) (Oral) Resp 18 Ht 167.6 cm (5' 6") Wt (!) 154 kg (339 lb 8.1 oz) LMP 01/11/2015 SpO2 97% BMI 54.80 kg/m? Temp (24hrs), Av.5 ?C (97.7 ?F), Min:36.3 ?C (97.3 ?F), Max:36.7 ?C (98.1 ?F) General: alert, oriented, NAD Lungs: bilaterally few rhonchi to auscultation Heart: regular rate and rhythm Abdomen: soft, non tender, non distended, BS+ Extremities: no edema No rashes No joint inflammation Neck supple Lines ok No CVAT Lines, Drains, and Airways Line Peripheral 03/09/22 0400 Assessment Left Forearm 22 Gauge 4 days Drain External Collection Device 03/08/22 2348 4 days Labs: Recent Labs 03/13/22 0931 03/11/22 0725 03/11/22 0459 WBC 9.44 -- 5.43 HB 13.2 -- 12.3 PLT 279 -- 292 NA 138 -- 136 K 4.1 4.5 -- CO2 30 -- 29 BUN 17 -- 17 CREAT 0.68 -- 0.63 AST 13 19 -- ALT 12 14 -- TBILI 0.2 -- 0.2 ALKPHOS 67 -- 66 Microbiology data: reviewed Imaging data: reviewed Kurt Evans MD [phone] 03/13/2022 10:51 AM Normal [facility] Comprehensive metabolic 2000 panelon 03-13-2022 Albumin [Mass/Vol] 3.7 g/dL Low 3.9-4.9 [facility] Comment on above: Order Comment: Speci men Type: BLOOD SPECIMENOrdering Facility: [facility] Address: [address] [place] [address] [place] [address] Performed By: #### 2 4323-8 ####LAMBERT LABORATORYCLIA [id number] [address] [place] ALP [Catalytic activity/Vol] 67 U/L Normal 34-123 [facility] Comment on above: Order Comment: Speci men Type: BLOOD SPECIMENOrdering Facility: [facility] Address: [address] [place] [address] Performed By: #### 2 4323-8 ####LAMBERT LABORATORYCLIA [id number] [address] [place] ALT [Catalytic activity/Vol] 12 U/L Normal 7-38 [facility] Comment on above: Order Comment: Speci men Type: BLOOD SPECIMENOrdering Facility: [facility] Address: [address] [place] [address] Performed By: #### 2 4323-8 ####LAMBERT LABORATORYCLIA [id number] [address] Anion gap [Moles/Vol] 9 mmol/L Normal 9-18 [facility] Comment on above: Order Comment: Speci men Type: BLOOD SPECIMENOrdering Facility: [facility] Address: [address] [place] [address] Performed By: #### 2 4323-8 ####LAMBERT LABORATORYCLIA [id number] [address] AST [Catalytic activity/Vol] 13 U/L Normal 13-35 [facility] Comment on above: Order Comment: Speci men Type: BLOOD SPECIMENOrdering Facility: [facility] Address: [address] [place] [address] Performed By: #### 2 4323-8 ####LAMBERT LABORATORYCLIA [id number] [address] Bilirubin [Mass/Vol] 0.2 mg/dL Normal 0.2-1.3 [facility] Comment on above: Order Comment: Speci men Type: BLOOD SPECIMENOrdering Facility: [facility] Address: [address] [place] [address] Performed By: #### 2 4323-8 ####LAMBERT LABORATORYCLIA [id number] [place] [address] [place] Calcium [Mass/Vol] 8.6 mg/dL Normal 8.5-10.2 [facility] Comment on above: Order Comment: Speci men Type: BLOOD SPECIMENOrdering Facility: [facility] Address: [address] [place] [address] Performed By: #### 2 4323-8 ####LAMBERT LABORATORYCLIA [id number] [place] [address] [place] Chloride [Moles/Vol] 99 mmol/L Normal 97-105 [facility] Comment on above: Order Comment: Speci men Type: BLOOD SPECIMENOrdering Facility: [facility] Address: [address] [place] [address] Performed By: #### 2 4323-8 ####LAMBERT LABORATORYCLIA [id number] [place] [address] [place] CO2 [Moles/Vol] 30 mmol/L Normal 22-30 [facility] Comment on above: Order Comment: Speci men Type: BLOOD SPECIMENOrdering Facility: [facility] Address: [address] [place] [address] Performed By: #### 2 4323-8 ####LAMBERT LABORATORYCLIA [id number] [address] [place] Creatinine [Mass/Vol] 0.68 mg/dL Normal 0.58-0.96 [facility] Comment on above: Order Comment: Speci men Type: BLOOD SPECIMENOrdering Facility: [facility] Address: [address] [place] [address] Performed By: #### 2 4323-8 ####LAMBERT LABORATORYCLIA [id number] [address] [place] ESTIMATED GLOMERULAR FILTRATION RATE 104 mL/min/1.73m??? Normal >=60 [facility] Comment on above: Order Comment: Speci men Type: BLOOD SPECIMENOrdering Facility: [facility] Address: [address] [place] [address] Result Comment: Cecille mated Glomerular Filtration Rate (eGFR) is calculated using the 2020 CKD-EPI creatinine equation. This equation utilizes serum creatinine, sex, and age as parameters. The creatinine assay has traceable calibration to isotope dilution-mass spectrometry. Refer to KDIGO guidelines for clinical interpretation. In patients with unstable renal function, e.g. those with acute kidney injury, the eGFR may not accurately reflect actual GFR. Performed By: #### 2 4323-8 ####TOWER LABORATORYCLIA [id number] [place] [address] [place] Glucose [Mass/Vol] 175 mg/dL High 74-99 [facility] Comment on above: Order Comment: Susie santizo Type: BLOOD SPECIMENOrdering Facility: [facility] Address: [address] [place] [id number] Result Comment: The [place] Diabetes Association (ADA) provides guidance for cutoff values for fasting glucose and random glucose. The ADA defines fasting as no caloric intake for at least 8 hours. Fasting plasma glucose results between 100 to 125 mg/dL indicate increased risk for diabetes (prediabetes). Fasting plasma glucose results greater than or equal to 126 mg/dL meet the criteria for diagnosis of diabetes. In the absence of unequivocal hyperglycemia, results should be confirmed by repeat testing. In a patient with classic symptoms of hyperglycemia or hyperglycemic crisis, random plasma glucose results greater than or equal to 200 mg/dL meet the criteria for diagnosis of diabetes. Reference: Standards of Medical Care in Diabetes 2016, [place] [employer] Association. Diabetes Care. 2016.39(Suppl 1). Performed By: #### 2 4323-8 ####TOWER LABORATORYCLIA [id number] [place] [address] [place] Potassium [Moles/Vol] 4.1 mmol/L Normal 3.7-5.1 [facility] Comment on above: Order Comment: Susie santizo Type: BLOOD SPECIMENOrdering Facility: [facility] Address: [address] [place] [address] Performed By: #### 2 4323-8 ####TOWER LABORATORYCLIA [id number] [place] [id number] [place] Protein [Mass/Vol] 6.8 g/dL Normal 6.3-8.0 [facility] Comment on above: Order Comment: Speci men Type: BLOOD SPECIMENOrdering Facility: [facility] Address: [address] [place] [address] Performed By: #### 2 4323-8 ####LAMBERT LABORATORYCLIA [id number] [address] Sodium [Moles/Vol] 138 mmol/L Normal 136-144 [facility] Comment on above: Order Comment: Speci men Type: BLOOD SPECIMENOrdering Facility: [facility] Address: [address] [place] [address] Performed By: #### 2 4323-8 ####LAMBERT LABORATORYCLIA [id number] [address] Urea nitrogen [Mass/Vol] 17 mg/dL Normal 7-21 [facility] Comment on above: Order Comment: Speci men Type: BLOOD SPECIMENOrdering Facility: [facility] Address: [address] [place] [address] Performed By: #### 2 4323-8 ####LAMBERT LABORATORYCLIA [id number] [address] D dimer FEU PPP-mCncon 03-13 Fibrin D-dimer FEU (PPP) [Mass/Vol] 900 ng/mL FEU High <500 [facility] Comment on above: Order Comment: Speci men Type: BLOOD SPECIMENOrdering Facility: [facility] Address: [address] [place] [address] Performed By: #### 4 8065-7 ####LAMBERT LABORATORYCLIA [id number] [address] Fibrin D-dimer FEU (PPP) [Ma ss/Vol]on 03-13-2022 D DIMER AGE-RELATED CUTOFF 540 ng/mL FEU Normal [facility] Comment on above: Order Comment: Speci men Type: BLOOD SPECIMENOrdering Facility: [facility] Address: [address] [place] [address] Performed By: #### 4 8065-7 ####LAMBERT LABORATORYCLIA [id number] [address] [facility] NURSING PROGon 03-13-2022 NURSING PROG HNO ID: [id number] Author: Raina Lopes RN Service: Nursing Author Type: Registered Nurse Type: Nursing Progress Note Filed: 03/13/2022 10:25 PM Note Text: Nursing Progress Note Patient Name: Bradley Matos Patient Location: Daily Note: 1909 received doorside handoff report from [facility] Holly. Pt asleep in bed, no distress noted, call light in reach. 1956 pt assessment completed, see flowsheet 1999 pt medicated with prn tylenol for c/o posterior neck discomfort. Assisted pt with ambulating to/from bathroom 2044 spoke with london Benavidez regarding pt ultram orders 21[address] [facility] physician paged regarding medication allergy to ultram. Spoke with physician and pt regarding intolerance and pt in agreement to utilize tylenol and lidocaine patches for discomfort and will discuss further with attending in am. This note was completed by: Raina Lopes [facility] NURSING PROG HNO ID: [id number] Author: Shante Cuevas RN Service: Nursing Author Type: Registered Nurse Type: Nursing Progress Note Filed: 03/13/2022 5:05 PM Note Text: Nursing Progress Note Patient Name: Bradley Matos Patient Location: Daily Note: Pt oriented to room. Reviewed My Safety Plan documentation with Pt. Reviewed channel 95 with Pt regarding safe mobility. All policies and procedures explained to Pt. Pt verbalized understanding. During admission questioning, Pt stated that "a long time ago I had suicidal thoughts. It was after my son in a car accident. It was 1999 - ." Pt stated she no longer feels this way. LIP notified of moderate risk on SI scale. This note was completed by: Shante Cuevas [facility] NURSING PROG HNO ID: [id number] Author: Elayne Sharma RN Service: Nursing Author Type: Registered Nurse Type: Nursing Progress Note Filed: 03/13/2022 5:49 PM Note Text: Nursing Progress Note Patient Name: Bradley Matos [facility] Note: Dr. Gutierrez called at this time for admission orders. This note was completed by: Elayne Sharma [facility] NURSING PROG HNO ID: [id number] Author: Elayne Sharma RN Service: Nursing Author Type: Registered Nurse Type: Nursing Progress Note Filed: 03/13/2022 4:34 PM Note Text: Nursing Progress Note Patient Name: Bradley Matos Patient Location: [place] [address] Daily Note: Pt arrived to floor per w//c. Accompanied by daughter.Daughter assisted patient out of car and brought patient over to floor. Patient and daughter was wearing a mask. Daughter was informed that she would have to maintain isolation rules when she would visit her mom. Daughter states, "I never had to do that at [facility]. " Daughter states, "That is too hot so I may not be visiting." Report was called at 13:51 by Kathy Tripathi RN. Questioned nurse was the patient weaned off the oxygen before transport? Last documentation was 97% with 2LPNC at 11:03. RN states, "We had an order to wean off oxygen but patient had it off some in the room while rounds were made." This nurse was concerned that the daughter was bringing the patient in a car without oxygen.Informed nurse there was not any documentation of weaning patient off the oxygen. This was voiced on Allscript before patient was discharged from [place]. Vital signs completed. P. Ox 97% RA. Denies any SOB. This note was completed by: Elayne Sharma [facility] NURSING PROG HNO ID: [id number] Author: Kathy Tripathi RN Service: ? Author Type: Registered Nurse Type: Nursing Progress Note Filed: 03/13/2022 2:07 PM Note Text: Nursing Progress Note Patient Name: Bradley Matos Patient Location: [place] [address]/[id number] Daily Note: 1345: Patient discharged in stable condition. Left floor via wheelchair w/daughter to [facility]. Discharge paperwork and all personal belongings w/patient. [facility] This note was completed by: Kathy Tripathi [facility] US DVT LOWER BILon 2 US DVT LOWER SOFIA * * *Final Report* * * DATE OF EXAM: Mar 13 2022 9:23AM MDU 1005 - US DVT LOWER SOFIA / PROCEDURE REASON: Leg deep vein thrombosis (DVT) suspected * * * * Physician Interpretation * * * * EXAMINATION: RIGHT AND LEFT LOWER EXTREMITY DEEP VENOUS ULTRASOUND WITH DOPPLER IMAGING CLINICAL HISTORY: COVID+ TECHNIQUE: Grayscale with compression maneuvers, color Doppler and spectral Doppler imaging of the right and left proximal deep veins was performed. Grayscale with compression maneuvers of the right and left peroneal and posterior tibial veins was performed. The right and left great and small saphenous veins were evaluated at their insertion to the deep system. Images were obtained and stored in a permanent archive. MQ: [id number]_1 COMPARISON: None RESULT: RIGHT LOWER EXTREMITY PROXIMAL DEEP VEINS Distal External Iliac, Common Femoral and Proximal Profunda Veins: Compression: Grossly Normal Doppler: Could not evaluate. Femoral vein: Compression: Grossly Normal Doppler: Could not evaluate Popliteal vein: Compression: Normal Doppler: Normal, spontaneous respirophasic flow. Normal response to augmentation. CALF DEEP VEINS Not seen below the knees Gastrocnemius and Soleal veins: Not imaged. SUPERFICIAL VEINS: Great saphenous: Not well seen Small saphenous: Not well seen LEFT LOWER EXTREMITY PROXIMAL DEEP VEINS Distal External Iliac, Common Femoral and Proximal Profunda Veins: Compression: Suboptimally seen Doppler: Could not evaluate Femoral vein: Compression: Normal Doppler: Could not evaluate Popliteal vein: Compression: Normal Doppler: Normal, spontaneous respirophasic flow. Normal response to augmentation. CALF DEEP VEINS Not seen low in the knees Gastrocnemius and Soleal veins: Not imaged. SUPERFICIAL VEINS: Great saphenous: Not well seen Small saphenous: Not well seen IMPRESSION: Very limited value due to patient body habitus. 1. Nondiagnostic study for proximal DVT in the left lower extremity. LEFT leg not well seen 2. RIGHT proximal leg grossly unremarkable. 3. Nondiagnostic study for calf DVT in the left and right lower extremities. 4. Nondiagnostic study for superficial thrombophlebitis in the imaged segments of the left and right lower extremities. COMMUNICATION: Communicated via Imaging Support Services Department with KURT EVANS on 03/13/2022 12:03 PM Field Liability Generalist: JAIMIE Transcribe Date/Time: Mar 13 2022 9:27A Dictated by : LALO WATERS DO This examination was interpreted and the report reviewed and electronically signed by: LALO WATERS DO on Mar 13 2022 12:03PM EST [id number] [facility] CASE MANAGEMon 03-12-2022 CASE MANAGEM HNO ID: [id number] Author: Lian Seymour RN Service: ? Author Type: Registered Nurse Type: Care Mgt Progress Note Filed: 03/12/2022 9:48 AM Note Text: CARE MANAGEMENT PROGRESS NOTE SERVICE DATE: 03/12/2022 SERVICE TIME: 9:41 AM CM sent referral to [facility] and [facility] to find accepting covid + SNF. CM called pt, she is refusing to d/c to [facility] or [facility].. CM explained the 2 SNFs she requested cannot accept covid +. Pt replied "Dr Rebolledo told me I could stay until I'm covid negative" LOS: 3 days SIGNATURE: Lian Seymour RN PATIENT NAME: Bradley Matos DATE: March 12, 2022 TIME: 9:41 AM PAGER/CONTACT #: [phone] -- [facility] CONSULT PROGon 03-12-2022 CONSULT PROG HNO ID: [id number] Author: Kurt Evans MD Service: Infectious Disease Author Type: Physician Type: Consult Progress Note Filed: 03/12/2022 4:21 PM Note Text: INFECTIOUS DISEASE PROGRESS NOTE Patient Name: Bradley Matos INTERVAL HISTORY: Cough +. SOB is better. Sats at 93-96% on 2L NC O2. No fevers. ROS checked in details. All qs answered. Patient Active Hospital Problem List: Leg weakness (05/01/2015) Recent cerebrovascular accident (CVA) (03/09/2022) Nausea (03/09/2022) COVID-19 virus infection (03/09/2022) Right leg weakness (03/09/2022) COVID-19 (03/09/2022) ASSESSMENT: COVID-19 Acute hypoxemia Recent cerebrovascular accident Nausea Elevated CRP and D-dimer Ulcerative colitis Morbid obesity Sjogren?s syndrome. ? PLAN: C/W Decadron x 10 days C/W Remdesivir x 5 days Repeat D dimer Duplex US legs Monitor Scr/LFTs on Remdesivir Monitor off abx Wean O2 as able MEDICATIONS: reviewed. Current Facility-Administered Medications Medication Dose Route Frequency - sodium chloride 0.9 % (flush) 3-5 mL (BD POSIFLUSH) 3-5 mL INTRAVENOUS q 12 H - NaCl 0.9% iv flush bag 20 mL INTRAVENOUS PRN - acetaminophen 650 mg tab(s) (TYLENOL) 650 mg ORAL q 6 H PRN - remdesivir in NaCl 0.9% Vial-Mate/ADD-[place] 100 mg 275 mL 100 mg INTRAVENOUS q 24 HR - dexAMETHasone 6 mg (DECADRON) 6 mg ORAL DAILY Or - dexAMETHasone sodium phosphate 6 mg injection (DECADRON) 6 mg INTRAVENOUS DAILY - lidocaine 4 % 2 Patch (SALONPAS) 2 Patch TRANSDERMAL DAILY And - lidocaine patch - REMOVE OTHER AT BEDTIME And - lidocaine - VERIFY PATCH OTHER q 8 H - hydrALAZINE 10 mg tab(s) (APRESOLINE) 10 mg ORAL QID PRN - methocarbamol 750 mg tab(s) (ROBAXIN) 750 mg ORAL QID - docusate sodium 100 mg cap(s) (COLACE) 100 mg ORAL BID PRN - amLODIPine 10 mg tab(s) (NORVASC) 10 mg ORAL DAILY - atorvastatin 40 mg tab(s) (LIPITOR) 40 mg ORAL DAILY - clopidogrel 75 mg tab(s) (PLAVIX) 75 mg ORAL DAILY - capsaicin 0.025 % cream (ZOSTRIX) TOPICAL BID - loperamide 2 mg cap(s) (IMODIUM) 2 mg ORAL TID PRN - calcium carbonate 500 mg chewable tab(s) (TUMS) 500 mg ORAL BID PRN - pantoprazole DR 20 mg tab(s) (PROTONIX) 20 mg ORAL DAILY - heparin 5,000 Units injection 5,000 Units SUBCUTANEOUS q 8 H - dicyclomine 20 mg cap(s) (BENTYL) 20 mg ORAL q 6 H PRN PHYSICAL EXAM: Vital signs: BP 160/106 Pulse (!) 59 Temp 36.7 ?C (98.1 ?F) (Oral) Resp 18 Ht 167.6 cm (5' 6") Wt (!) 154 kg (339 lb 8.1 oz) LMP 01/11/2015 SpO2 96% BMI 54.80 kg/m? Temp (24hrs), Av.7 ?C (98 ?F), Min:36.6 ?C (97.9 ?F), Max:36.7 ?C (98.1 ?F) General: alert, oriented, NAD Lungs: bilaterally few rhonchi to auscultation Heart: regular rate and rhythm Abdomen: soft, non tender, non distended, BS+ Extremities: no edema No rashes No joint inflammation Neck supple Lines ok No CVAT Lines, Drains, and Airways Line Peripheral 03/09/22 0400 Assessment Left Forearm 22 Gauge 3 days Drain External Collection Device 03/08/22 2348 3 days Labs: Recent Labs 03/11/22 0725 03/11/22 0459 03/10/22 0746 WBC -- 5.43 5.15 HB -- 12.3 11.9 PLT -- 292 246 NA -- 136 140 K 4.5 -- 4.0 CO2 -- 29 29 BUN -- 17 15 CREAT -- 0.63 0.67 AST 19 -- 23 ALT 14 -- 18 TBILI -- 0.2 0.3 ALKPHOS -- 66 73 Microbiology data: reviewed Imaging data: reviewed Kurt Evans MD Pager: Date of service: 03/12/2022 Time of service: 4:11 PM This note is not final until Authenticated by responsible provider. Normal [facility] ALT SerPl-cCncon 03-11-2022 ALT [Catalytic activity/Vol] 14 U/L Normal 7-38 [facility] Comment on above: Order Comment: Speci men Type: BLOOD SPECIMENOrdering Facility: [facility] Address: [address] [place] [address] Performed By: #### 1 742-6, K1, 1920-04 ####[facility] LABORATORYCLIA [id number] [place] [address] [place] AST SerPl-cCncon 03-11-2022 AST [Catalytic activity/Vol] 19 U/L Normal 13-35 [facility] Comment on above: Order Comment: Speci men Type: BLOOD SPECIMENOrdering Facility: [facility] Address: [address] [place] [address] Performed By: #### 1 742-6, K1, 1920-04 ####TOWER LABORATORYCLIA [id number] [place] [address] [place] CBC panel Auto (Bld)on 03-11 Erythrocyte distribution width (RBC) [Ratio] 15.1 % High 11.5-15.0 [facility] Comment on above: Order Comment: Speci men Type: BLOOD SPECIMENOrdering Facility: [facility] Address: [address] [place] [address] Performed By: #### 5 8410-2 ####TOWER LABORATORYCLIA [id number] [address] Hematocrit (Bld) [Volume fraction] 38.4 % Normal 36.0-46.0 [facility] Comment on above: Order Comment: Speci men Type: BLOOD SPECIMENOrdering Facility: [facility] Address: [address] [place] [address] Performed By: #### 5 8410-2 ####[facility] LABORATORYCLIA [id number] [address] [place] Hemoglobin (Bld) [Mass/Vol] 12.3 g/dL Normal 11.5-15.5 [facility] Comment on above: Order Comment: Speci men Type: BLOOD SPECIMENOrdering Facility: [facility] Address: [address] [place] [address] Performed By: #### 5 8410-2 ####LAMBERT LABORATORYCLIA [id number] [address] [place] [facility] MCH (RBC) [Entitic mass] 28.9 pg Normal 26.0-34.0 [facility] Comment on above: Order Comment: Speci men Type: BLOOD SPECIMENOrdering Facility: [facility] Address: [address] [place] [address] Performed By: #### 5 8410-2 ####LAMBERT LABORATORYCLIA [id number] [address] [place] MCHC (RBC) [Mass/Vol] 32.0 g/dL Normal 30.5-36.0 [facility] Comment on above: Order Comment: Speci men Type: BLOOD SPECIMENOrdering Facility: [facility] Address: [address] [place] [address] Performed By: #### 5 8410-2 ####LAMBERT LABORATORYCLIA [id number] [address] MCV (RBC) [Entitic vol] 90.1 fL Normal 80.0-100.0 M [facility] Comment on above: Order Comment: Speci men Type: BLOOD SPECIMENOrdering Facility: [facility] Address: [address] [place] [address] Performed By: #### 5 8410-2 ####LAMBERT LABORATORYCLIA [id number] [place] [address] [place] Nucleated RBC (Bld) [#/Vol] 10*3/uL Normal <0.01 [facility] Comment on above: Order Comment: Speci men Type: BLOOD SPECIMENOrdering Facility: [facility] Address: [address] [place] [address] Performed By: #### 5 8410-2 ####LAMBERT LABORATORYCLIA [id number] [place] [address] [place] Platelet mean volume (Bld) [Entitic vol] 10.1 fL Normal 9.0-12.7 [facility] Comment on above: Order Comment: Speci men Type: BLOOD SPECIMENOrdering Facility: [facility] Address: [address] [place] [address] Performed By: #### 5 8410-2 ####LAMBERT LABORATORYCLIA [id number] [address] [place] Platelets (Bld) [#/Vol] 292 10*3/uL Normal 150-400 [facility] Comment on above: Order Comment: Speci men Type: BLOOD SPECIMENOrdering Facility: [facility] Address: [address] [place] [address] Performed By: #### 5 8410-2 ####LAMBERT LABORATORYCLIA [id number] [address] [place] RBC (Bld) [#/Vol] 4.26 10*6/uL Normal 3.90-5.20 [facility] Comment on above: Order Comment: Speci men Type: BLOOD SPECIMENOrdering Facility: [facility] Address: [address] [place] [address] Performed By: #### 5 8410-2 ####LAMBERT LABORATORYCLIA [id number] [address] [place] WBC (Bld) [#/Vol] 5.43 10*3/uL Normal 3.70-11.00 [facility] Comment on above: Order Comment: Speci men Type: BLOOD SPECIMENOrdering Facility: [facility] Address: [address] [place] [address] Performed By: #### 5 8410-2 ####LAMBERT LABORATORYCLIA [id number] [address] Comprehensive metabolic 2000 panelon 03-11-2022 Albumin [Mass/Vol] 3.8 g/dL Low 3.9-4.9 [facility] Comment on above: Order Comment: Speci men Type: BLOOD SPECIMENOrdering Facility: [facility] Address: [address] [place] [address] Performed By: #### 2 4323-8 ####LAMBERT LABORATORYCLIA [id number] [address] ALP [Catalytic activity/Vol] 66 U/L Normal 34-123 [facility] Comment on above: Order Comment: Speci men Type: BLOOD SPECIMENOrdering Facility: [facility] Address: [address] [place] [address] Performed By: #### 2 4323-8 ####LAMBERT LABORATORYCLIA [id number] [address] ALT [Catalytic activity/Vol] Normal [facility] Comment on above: Order Comment: Speci men Type: BLOOD SPECIMENOrdering Facility: [facility] Address: [address] [place] [address] Result Comment: Unab le to assay due to interference from hemolysis. Suggest reorder as clinically indicated. Performed By: #### 2 4323-8 ####LAMBERT LABORATORYCLIA [id number] [address] Anion gap [Moles/Vol] 8 mmol/L Low 9-18 [facility] Comment on above: Order Comment: Speci men Type: BLOOD SPECIMENOrdering Facility: [facility] Address: [address] [place] [address] Performed By: #### 2 4323-8 ####LAMBERT LABORATORYCLIA [id number] [address] AST [Catalytic activity/Vol] Normal [facility] Comment on above: Order Comment: Speci men Type: BLOOD SPECIMENOrdering Facility: [facility] Address: [address] [place] [address] Result Comment: Unab le to assay due to interference from hemolysis. Suggest reorder as clinically indicated. Performed By: #### 2 4323-8 ####L[facility] LABORATORYCLIA [id number] [place] [address] [place] Bilirubin [Mass/Vol] 0.2 mg/dL Normal 0.2-1.3 [facility] Comment on above: Order Comment: Speci men Type: BLOOD SPECIMENOrdering Facility: [facility] Address: [address] [place] [address] Performed By: #### 2 4323-8 ####L[facility]BERT LABORATORYCLIA [id number] [place] [address] [place] Calcium [Mass/Vol] 9.0 mg/dL Normal 8.5-10.2 [facility] Comment on above: Order Comment: Speci men Type: BLOOD SPECIMENOrdering Facility: [facility] Address: [address] [place] [address] Performed By: #### 2 4323-8 ####LAMBERT LABORATORYCLIA [id number] [place] [address] [place] Chloride [Moles/Vol] 99 mmol/L Normal 97-105 [facility] Comment on above: Order Comment: Speci men Type: BLOOD SPECIMENOrdering Facility: [facility] Address: [address] [place] [address] Performed By: #### 2 4323-8 ####LAMBERT LABORATORYCLIA [id number] [place] [address] [place] CO2 [Moles/Vol] 29 mmol/L Normal 22-30 [facility] Comment on above: Order Comment: Speci men Type: BLOOD SPECIMENOrdering Facility: [facility] Address: [address] [place] [address] Performed By: #### 2 4323-8 ####LAMBERT LABORATORYCLIA [id number] [place] [address] [place] Creatinine [Mass/Vol] 0.63 mg/dL Normal 0.58-0.96 [facility] Comment on above: Order Comment: Tristianzeke santizo Type: BLOOD SPECIMENOrdering Facility: [facility] Address: [address] [id number] Performed By: #### 2 4323-8 ####TOWER LABORATORYCLIA [id number] [address] [place] ESTIMATED GLOMERULAR FILTRATION RATE 106 mL/min/1.73m??? Normal >=60 [facility] Comment on above: Order Comment: Tristianzeke santizo Type: BLOOD SPECIMENOrdering Facility: [facility] Address: [address] [place] [address] Result Comment: Cecille mated Glomerular Filtration Rate (eGFR) is calculated using the 2020 CKD-EPI creatinine equation. This equation utilizes serum creatinine, sex, and age as parameters. The creatinine assay has traceable calibration to isotope dilution-mass spectrometry. Refer to KDIGO guidelines for clinical interpretation. In patients with unstable renal function, e.g. those with acute kidney injury, the eGFR may not accurately reflect actual GFR. Performed By: #### 2 4323-8 ####TOWER LABORATORYCLIA [id number] [place] [address] [place] Glucose [Mass/Vol] 174 mg/dL High 74-99 [facility] Comment on above: Order Comment: Susie santizo Type: BLOOD SPECIMENOrdering Facility: [facility] Address: [address] [place] [address] Result Comment: The [place] [employer] (ADA) provides guidance for cutoff values for fasting glucose and random glucose. The ADA defines fasting as no caloric intake for at least 8 hours. Fasting plasma glucose results between 100 to 125 mg/dL indicate increased risk for diabetes (prediabetes). Fasting plasma glucose results greater than or equal to 126 mg/dL meet the criteria for diagnosis of diabetes. In the absence of unequivocal hyperglycemia, results should be confirmed by repeat testing. In a patient with classic symptoms of hyperglycemia or hyperglycemic crisis, random plasma glucose results greater than or equal to 200 mg/dL meet the criteria for diagnosis of diabetes. Reference: Standards of Medical Care in Diabetes 2016, [place] [employer]. Diabetes Care. 2016.39(Suppl 1). Performed By: #### 2 4323-8 ####LAMBERT LABORATORYCLIA [id number] [place] [address] [place] Potassium [Moles/Vol] Normal [facility] Comment on above: Order Comment: Speci sukhdev Type: BLOOD SPECIMENOrdering Facility: [facility] Address: [address] [place] [address] Result Comment: Unab le to assay due to interference from hemolysis. Suggest reorder as clinically indicated. Performed By: #### 2 4323-8 ####LAM[facility] LABORATORYCLIA [id number] [place] [address] [place] Protein [Mass/Vol] 7.0 g/dL Normal 6.3-8.0 [facility] Comment on above: Order Comment: Speci sukhdev Type: BLOOD SPECIMENOrdering Facility: [facility] Address: [address] [place] [address] Performed By: #### 2 4323-8 ####LAMBERT LABORATORYCLIA [id number] [place] [address] [place] Sodium [Moles/Vol] 136 mmol/L Normal 136-144 [facility] Comment on above: Order Comment: Speci men Type: BLOOD SPECIMENOrdering Facility: [facility] Address: [address] [place] [address] Performed By: #### 2 4323-8 ####LAMBERT LABORATORYCLIA [id number] [place] [address] [place] Urea nitrogen [Mass/Vol] 17 mg/dL Normal 7-21 [facility] Comment on above: Order Comment: Speci men Type: BLOOD SPECIMENOrdering Facility: [facility] Address: [address] [place] [address] Performed By: #### 2 4323-8 ####LAMBERT LABORATORYCLIA [id number] [place] [address] [place] POTASSIUM BLDon 03-11-2022 Potassium [Moles/Vol] 4.5 mmol/L Normal 3.7-5.1 [facility] Comment on above: Order Comment: Speci men Type: BLOOD SPECIMENOrdering Facility: [facility] Address: [address] [place] [address] Performed By: #### 1 742-6, K1, 1920-8 ####LAMBERT LABORATORYCLIA [id number] [address] [place] CBC panel Auto (Bld)on 03-10 Erythrocyte distribution width (RBC) [Ratio] 15.4 % High 11.5-15.0 [facility] Comment on above: Order Comment: Speci men Type: BLOOD SPECIMENOrdering Facility: [facility] Address: [address] [place] [address] Performed By: #### 5 8410-2 ####LAMB[facility] LABORATORYCLIA [id number] [address] [place] Hematocrit (Bld) [Volume fraction] 36.8 % Normal 36.0-46.0 [facility] Comment on above: Order Comment: Speci men Type: BLOOD SPECIMENOrdering Facility: [facility] Address: [address] [place] [address] Performed By: #### 5 8410-2 ####LAMB[facility] LABORATORYCLIA [id number] [address] [place] Hemoglobin (Bld) [Mass/Vol] 11.9 g/dL Normal 11.5-15.5 [facility] Comment on above: Order Comment: Speci men Type: BLOOD SPECIMENOrdering Facility: [facility] Address: [address] [place] [address] Performed By: #### 5 8410-2 ####LAMB[facility] LABORATORYCLIA [id number] [address] [place] MCH (RBC) [Entitic mass] 29.4 pg Normal 26.0-34.0 [facility] Comment on above: Order Comment: Speci men Type: BLOOD SPECIMENOrdering Facility: [facility] Address: [address] [place] [address] Performed By: #### 5 8410-2 ####LAMBERT LABORATORYCLIA [id number] [address] MCHC (RBC) [Mass/Vol] 32.3 g/dL Normal 30.5-36.0 [facility] Comment on above: Order Comment: Speci men Type: BLOOD SPECIMENOrdering Facility: [facility] Address: [address] [place] [address] Performed By: #### 5 8410-2 ####L[facility] LABORATORYCLIA [id number] [address] [place] MCV (RBC) [Entitic vol] 90.9 fL Normal 80.0-100.0 M [facility] Comment on above: Order Comment: Speci men Type: BLOOD SPECIMENOrdering Facility: [facility] Address: [address] [place] [address] Performed By: #### 5 8410-2 ####LAMBERT LABORATORYCLIA [id number] [address] Nucleated RBC (Bld) [#/Vol] 10*3/uL Normal <0.01 [facility] Comment on above: Order Comment: Speci men Type: BLOOD SPECIMENOrdering Facility: [facility] Address: [address] [place] [address] Performed By: #### 5 8410-2 ####LAMBERT LABORATORYCLIA [id number] [address] [place] Platelet mean volume (Bld) [Entitic vol] 9.8 fL Normal 9.0-12.7 [facility] Comment on above: Order Comment: Speci men Type: BLOOD SPECIMENOrdering Facility: [facility] Address: [address] [place] [address] Performed By: #### 5 8410-2 ####LAMBERT LABORATORYCLIA [id number] [address] [place] Platelets (Bld) [#/Vol] 246 10*3/uL Normal 150-400 [facility] Comment on above: Order Comment: Speci men Type: BLOOD SPECIMENOrdering Facility: [facility] Address: [address] [place] [address] Performed By: #### 5 8410-2 ####LAMBERT LABORATORYCLIA [id number] [address] RBC (Bld) [#/Vol] 4.05 10*6/uL Normal 3.90-5.20 [facility] Comment on above: Order Comment: Speci men Type: BLOOD SPECIMENOrdering Facility: [facility] Address: [address] [place] [address] Performed By: #### 5 8410-2 ####L[facility] LABORATORYCLIA [id number] [address] WBC (Bld) [#/Vol] 5.15 10*3/uL Normal 3.70-11.00 [facility] Comment on above: Order Comment: Speci men Type: BLOOD SPECIMENOrdering Facility: [facility] Address: [address] [place] [address] Performed By: #### 5 8410-2 ####L[facility] LABORATORYCLIA [id number] [address] Comprehensive metabolic 2000 panelon 03-10-2022 Albumin [Mass/Vol] 3.7 g/dL Low 3.9-4.9 [facility] Comment on above: Order Comment: Speci men Type: BLOOD SPECIMENOrdering Facility: [facility] Address: [address] [place] [address] Performed By: #### 2 4323-8 ####L[facility] LABORATORYCLIA [id number] [address] ALP [Catalytic activity/Vol] 73 U/L Normal 34-123 [facility] Comment on above: Order Comment: Speci men Type: BLOOD SPECIMENOrdering Facility: [facility] Address: [address] [place] [address] Performed By: #### 2 4323-8 ####L[facility] LABORATORYCLIA [id number] [address] ALT [Catalytic activity/Vol] 18 U/L Normal 7-38 [facility] Comment on above: Order Comment: Speci men Type: BLOOD SPECIMENOrdering Facility: [facility] Address: [address] [place] [address] Performed By: #### 2 4323-8 ####L[facility] LABORATORYCLIA [id number] [address] [place] Anion gap [Moles/Vol] 9 mmol/L Normal 9-18 [facility] Comment on above: Order Comment: Speci men Type: BLOOD SPECIMENOrdering Facility: [facility] Address: [address] [place] [address] Performed By: #### 2 4323-8 ####LAMBERT LABORATORYCLIA [id number] [address] [place] AST [Catalytic activity/Vol] 23 U/L Normal 13-35 [facility] Comment on above: Order Comment: Speci men Type: BLOOD SPECIMENOrdering Facility: [facility] Address: [address] [place] [address] Performed By: #### 2 4323-8 ####L[facility] LABORATORYCLIA [id number] [address] [place] Bilirubin [Mass/Vol] 0.3 mg/dL Normal 0.2-1.3 [facility] Comment on above: Order Comment: Speci men Type: BLOOD SPECIMENOrdering Facility: [facility] Address: [address] [place] [address] Performed By: #### 2 4323-8 ####LAMBERT LABORATORYCLIA [id number] [address] [place] [facility] Calcium [Mass/Vol] 8.8 mg/dL Normal 8.5-10.2 [facility] Comment on above: Order Comment: Speci men Type: BLOOD SPECIMENOrdering Facility: [facility] Address: [address] [place] [address] Performed By: #### 2 4323-8 ####L[facility] LABORATORYCLIA [id number] [address] [place] Chloride [Moles/Vol] 102 mmol/L Normal 97-105 [facility] Comment on above: Order Comment: Speci men Type: BLOOD SPECIMENOrdering Facility: [facility] Address: [address] [place] [address] Performed By: #### 2 4323-8 ####LAMBERT LABORATORYCLIA [id number] [address] [place] CO2 [Moles/Vol] 29 mmol/L Normal 22-30 [facility] Comment on above: Order Comment: Speci men Type: BLOOD SPECIMENOrdering Facility: [facility] Address: [address] [place] [address] Performed By: #### 2 4323-8 ####LAMB[facility] LABORATORYCLIA [id number] [address] Creatinine [Mass/Vol] 0.67 mg/dL Normal 0.58-0.96 [facility] Comment on above: Order Comment: Speci men Type: BLOOD SPECIMENOrdering Facility: [facility] Address: [address] [place] [address] Performed By: #### 2 4323-8 ####L[facility] LABORATORYCLIA [id number] [address] ESTIMATED GLOMERULAR FILTRATION RATE 104 mL/min/1.73m??? Normal >=60 [facility] Comment on above: Order Comment: Speci men Type: BLOOD SPECIMENOrdering Facility: [facility] Address: [address] [place] [address] Result Comment: Cecille mated Glomerular Filtration Rate (eGFR) is calculated using the 2020 CKD-EPI creatinine equation. This equation utilizes serum creatinine, sex, and age as parameters. The creatinine assay has traceable calibration to isotope dilution-mass spectrometry. Refer to KDIGO guidelines for clinical interpretation. In patients with unstable renal function, e.g. those with acute kidney injury, the eGFR may not accurately reflect actual GFR. Performed By: #### 2 4323-8 ####[facility]ATORY[facility]IA [id number] [address] [place] Glucose [Mass/Vol] 122 mg/dL High 74-99 [facility] Comment on above: Order Comment: Speci men Type: BLOOD SPECIMENOrdering Facility: [facility] Address: [address] [address] Result Comment: The [place] [employer] (ADA) provides guidance for cutoff values for fasting glucose and random glucose. The ADA defines fasting as no caloric intake for at least 8 hours. Fasting plasma glucose results between 100 to 125 mg/dL indicate increased risk for diabetes (prediabetes). Fasting plasma glucose results greater than or equal to 126 mg/dL meet the criteria for diagnosis of diabetes. In the absence of unequivocal hyperglycemia, results should be confirmed by repeat testing. In a patient with classic symptoms of hyperglycemia or hyperglycemic crisis, random plasma glucose results greater than or equal to 200 mg/dL meet the criteria for diagnosis of diabetes. Reference: Standards of Medical Care in Diabetes 2016, [place] [employer]. Diabetes Care. 2016.39(Suppl 1). Performed By: #### 2 4323-8 ####[facility] LABORATORYCLIA [id number] [place] [address] [place] Potassium [Moles/Vol] 4.0 mmol/L Normal 3.7-5.1 [facility] Comment on above: Order Comment: Speci men Type: BLOOD SPECIMENOrdering Facility: [facility] Address: [address] [place] [address] Performed By: #### 2 4323-8 ####[facility] LABORATORYCLIA [id number] [place] [address] [place] Protein [Mass/Vol] 7.4 g/dL Normal 6.3-8.0 [facility] Comment on above: Order Comment: Speci men Type: BLOOD SPECIMENOrdering Facility: [facility] Address: [address] [address] Performed By: #### 2 4323-8 ####[facility] LABORATORYCLIA [id number] [place] [address] [place] Sodium [Moles/Vol] 140 mmol/L Normal 136-144 [facility] Comment on above: Order Comment: Speci men Type: BLOOD SPECIMENOrdering Facility: [facility] Address: [address] [address] Performed By: #### 2 4323-8 ####[facility]ORATORYCLIA [id number] [address] [place] Urea nitrogen [Mass/Vol] 15 mg/dL Normal 7-21 [facility] Comment on above: Order Comment: Speci men Type: BLOOD SPECIMENOrdering Facility: [facility] Address: [address] [place] [address] Performed By: #### 2 4323-8 ####[facility]ATORYCLIA [id number] [address] [place] THERAPY NTon 03-10-2022 THERAPY NT HNO ID: [id number] Author: Salma Bird OTR/Tatum Service: Occupational Therapy Author Type: Occupational Therapist Type: Therapy (PT/OT/Speech/Resp) Filed: 03/10/2022 3:08 PM Note Text: Occupational Therapy Evaluation SERVICE DATE: 03/10/2022 SERVICE TIME: 1350 to 1450 ROOM: [place] [address] Recommended Discharge Disposition: Subacute/SNF Recommended Discharge Disposition Due to: Patient requires daily, facility-based rehabilitation from at least one discipline due to:;anticipate community discharge/previous community dweller;intact cognition OT 6 Clicks Score: 18 Precautions/Activity Restrictions: Fall Risk;Lines/Tubes/Drains Precaution/Activity Restriction Comments: COVID precautions Current Hospital Course: patient admitted with Dxa: leg weakness, COVID 19 Reason for Hospital Admission: Leg Weakness Relevant Past Medical History: scabes, fibromyalgia,morbid obesity, PTSD, anxiety, Sjogren's syndrom, fatigue, GI problems Response to Therapy Interventions: Good participation in activities Assessment Comments: Patient is more than willing to participate. VERY distractable, use of device for functional mobility to the bathroom toiletm, sits EOB for self care, sitting upin bedside chair at exit Continue skilled needs due to: Functional impairment, Safety concerns Occupational Therapy Problem List: Impaired Self Care;Functional Mobility Impairment;Decreased Activity Tolerance;Balance Impaired Cognition/Communication Deficits Responsiveness: Alert, Awake Attention Deficits: Distractible, Divided Treatment Interventions: Education;Self Care / Home Management;Functional Mobility Training;Balance Training Plan for next visit: Dressing training, Fall prevention, Grooming training, Sit to stand transfers, Standing tolerance Home Environment Patient Lives With: Self/Alone;Other: See Comment Comments: in law suite Assistance Available: PRN Entry To Home: No Stairs (or 3 steps with rail) Number Of Stairs To Bed/Bath: 13 steps to living area Stairs to Bed/Bath with: Unilateral Rail Tub/Shower Type: tub/shower Laundry: basement laundry Equipment Owned: Wheeled Walker;Rollator Prior Functional Level: Within Functional Limits Prior Functional Level Comments: ind without device. has to pull up for transfers, asceds/descends stairs laterally. sleeps on couch in sidelyng Patient Report: "I feel so much better and human that I'm up. Thank you!" CURRENT FUNCTIONAL STATUS: Most recent performance Current Activities of Daily Living Assist Level Additional Information Feeding Independent Grooming Set Up;Additional Information while seated at EOB for hair hygiene, washing hair with cap, brushing hair, washing face Bathing Upper Body Set Up;Additional Information while seated at EOB Bathing Lower Body Moderate Assistance;Additional Information per clincal judgement Dressing Upper Body Minimal Assistance;Additional Information to assist with gown management, removes shirt ind Dressing Lower Body Moderate Assistance;Additional Information per clinical judgement Toileting Contact Guard Assistance;Additional Information while on commode in bathroom Instrumental Activities of Daily Living Assist Level Additional Information Meal/Beverage Prep Cleaning Laundry Medication Management with Strategies Functional Mobility Assist Level Additional Information Rolling Supine to Sit Contact Guard Assistance;Additional Information with extended time to complete with head raised Sit to Supine Scooting Contact Guard Assistance;Additional Information to EOB Sit to Stand Contact Guard Assistance;Additional Information with hands on walker to assist, bed elevated Stand to Sit Contact Guard Assistance;Additional Information with hands on arms of chair to assist to bedside chair Bed to Chair Contact Guard Assistance;Additional Information Stepping Wheeled Walker Toilet/Commode Minimal Assistance;Additional Information from sit to stand from commode Shower Functional Mobility Contact Guard Assistance;Additional Information Wheeled Walker demonstrates good safety throughout [place] indicate activity not attempted Balance: Static Sitting;Dynamic Sitting;Static Standing;Dynamic Standing Static Sitting Balance: Normal Patient able to maintain steady balance without handhold support Dynamic Sitting Balance: Good Patient accepts moderate challenge, able to maintain balance while picking up object off floor Static Standing Balance: Fair Patient able to maintain balance with handhold support, may require occasional minimal assistance Dynamic Standing Balance: Fair Patient accepts minimal challenge, able to maintain balance while turning head/trunk Activity Tolerance: Sitting Activity;Standing Activity Sitting Activity: sitting at EOB for self care, tolerance, balance Sitting Activity Tolerance (in minutes): 25 Standing Activity: transfer, functional mobility Standin (more content not included)... [facility] ALLIED HEALTHon 03-09-2022 ALLIED HEALTH HNO ID: [id number] Author: CARLI Gutierrez Service: ? Author Type: Technologist Type: Allied Health Filed: 03/09/2022 4:47 AM Note Text: Radiology Service Progress Note PATIENT NAME: Bradley Matos DATE OF SERVICE: March 09, 2022 TIME: 4:46 AM PATIENT IDENTITY VERIFICATION COMPLETED USING TWO (2) IDENTIFIERS: Name and Date of confirmed by patient verbally. FALL SCREENING: Has the patient had 2 falls in the last year or 1 fall with injury or currently using an Ambulatory Assistive Device (Walker, Cane, Wheelchair, Crutches, etc.)? Inpatient: Screened on floor PATIENT GENDER DATA: Female. status: : No status: N/A PATIENT RELEVANT IMPLANT DATA REVIEWED: Not Applicable RADIOLOGY DEPARTMENT: General X-ray: Exam(s) Completed: Chest X-Ray PERIPHERAL IV DATA: Not applicable SIGNED BY: CARLI Gutierrez March 09, 2022 4:46 AM [facility] CBC W Auto Differential pane l (Bld)on 03-09-2022 Basophils (Bld) [#/Vol] 0.03 10*3/uL Normal <0.11 [facility] Comment on above: Order Comment: Susie santizo Type: BLOOD SPECIMEN [facility] Address: [address] [place] [address] Performed By: #### 5 7021-8 #### [facility] CLIA [id number] [address] [place] [address] [place] Basophils/100 WBC (Bld) 0.4 % Normal [facility] Comment on above: Order Comment: Susie santizo Type: BLOOD SPECIMEN [facility] Facility: [facility] Address: [address] [address] Performed By: #### 5 7021-8 #### [facility] CLIA [id number] [address] [place] [address] [place] Differential cell count method Nom (Bld) Auto Normal [facility] Comment on above: Order Comment: Speci men Type: BLOOD SPECIMEN [facility] Facility: [facility] Address: [address] [place] [address] Performed By: #### 5 7021-8 #### [facility] CLIA [id number] [address] [place] Eosinophils (Bld) [#/Vol] 10*3/uL Normal <0.46 [facility] Comment on above: Order Comment: Speci men Type: BLOOD SPECIMEN [facility] Address: [address] [place] [address] Performed By: #### 5 7021-8 #### [facility] CLIA [id number] [address] Eosinophils/100 WBC (Bld) 0.3 % Normal [facility] Comment on above: Order Comment: Speci men Type: BLOOD SPECIMEN [facility]: [facility] Address: [address] [place] [address] Performed By: #### 5 7021-8 #### [facility] CLIA [id number] [address] Erythrocyte distribution width (RBC) [Ratio] 15.7 % High 11.5-15.0 [facility] Comment on above: Order Comment: Speci men Type: BLOOD SPECIMEN [facility] Address: [address] [place] [address] Performed By: #### 5 7021-8 #### [facility] CLIA [id number] [address] Hematocrit (Bld) [Volume fraction] 37.3 % Normal 36.0-46.0 [facility] Comment on above: Order Comment: Speci men Type: BLOOD SPECIMEN [facility] Address: [address] [place] [address] Performed By: #### 5 7021-8 #### [facility] CLIA [id number] [address] [place] Hemoglobin (Bld) [Mass/Vol] 12.1 g/dL Normal 11.5-15.5 [facility] Comment on above: Order Comment: Speci men Type: BLOOD SPECIMEN [facility]: [facility] Address: [address] [place] [address] Performed By: #### 5 7021-8 #### [facility] CLIA [id number] [address] [place] IMMATURE GRAN % 0.3 % Normal [facility] Comment on above: Order Comment: Speci men Type: BLOOD SPECIMEN [facility] Address: [address] [place] [address] Performed By: #### 5 7021-8 #### [facility] CLIA [id number] [address] IMMATURE GRAN ABS <0.03 Normal <0.10 [facility] Comment on above: Order Comment: Speci men Type: BLOOD SPECIMEN [facility] Address: [address] [place] [address] Performed By: #### 5 7021-8 #### [facility] CLIA [id number] [address] [place] [address] [place] Lymphocytes (Bld) [#/Vol] 1.02 10*3/uL Normal 1.00-4.00 [facility] Comment on above: Order Comment: Speci men Type: BLOOD SPECIMEN [facility] Facility: [facility] Address: [address] [place] [address] Performed By: #### 5 7021-8 #### [facility] CLIA [id number] [address] [place] [facility] Lymphocytes/100 WBC (Bld) 13.8 % Normal [facility] Comment on above: Order Comment: Speci men Type: BLOOD SPECIMEN [facility] Facility: [facility] Address: [address] [place] [address] Performed By: #### 5 7021-8 #### [facility] CLIA [id number] [address] [place] [address] [place] MCH (RBC) [Entitic mass] 29.2 pg Normal 26.0-34.0 [facility] Comment on above: Order Comment: Speci men Type: BLOOD SPECIMEN [facility] Facility: [facility] Address: [address] [place] [address] Performed By: #### 5 7021-8 #### [facility] CLIA [id number] [address] MCHC (RBC) [Mass/Vol] 32.4 g/dL Normal 30.5-36.0 [facility] Comment on above: Order Comment: Speci men Type: BLOOD SPECIMEN [facility] Facility: [facility] Address: [address] [place] [address] Performed By: #### 5 7021-8 #### [facility] CLIA [id number] [address] MCV (RBC) [Entitic vol] 90.1 fL Normal 80.0-100.0 [facility] Comment on above: Order Comment: Speci men Type: BLOOD SPECIMEN [facility] Facility[facility] Address: [address] [place] [address] Performed By: #### 5 7021-8 #### [facility] CLIA [id number] [address] Monocytes (Bld) [#/Vol] 0.98 10*3/uL High <0.87 [facility] Comment on above: Order Comment: Speci men Type: BLOOD SPECIMEN [facility] Facility: [facility] Address: [address] [place] [address] Performed By: #### 5 7021-8 #### [facility] CLIA [id number] [address] Monocytes/100 WBC (Bld) 13.3 % Normal [facility] Comment on above: Order Comment: Speci men Type: BLOOD SPECIMEN [facility] Facility[facility] Address: [address] [place] [address] Performed By: #### 5 7021-8 #### [facility] CLIA [id number] [address] [place] Neutrophils (Bld) [#/Vol] 5.31 10*3/uL Normal 1.45-7.50 [facility] Comment on above: Order Comment: Speci men Type: BLOOD SPECIMEN [facility] Address: [address] [place] [address] Performed By: #### 5 7021-8 #### [facility] CLIA [id number] [address] [place] [address] [place] Neutrophils/100 WBC (Bld) 71.9 % Normal [facility] Comment on above: Order Comment: Speci men Type: BLOOD SPECIMEN [facility] Address: [address] [place] [address] Performed By: #### 5 7021-8 #### [facility] CLIA [id number] [address] [place] [address] [place] Nucleated RBC (Bld) [#/Vol] 10*3/uL Normal <0.01 [facility] Comment on above: Order Comment: Speci men Type: BLOOD SPECIMEN [facility] Address: [address] [place] [address] Performed By: #### 5 7021-8 #### [facility] CLIA [id number] [address] [place] [address] [place] Nucleated RBC/100 WBC (Bld) [Ratio] 0.0 /100 WBC Normal [facility] Comment on above: Order Comment: Speci men Type: BLOOD SPECIMEN [facility] Address: [address] [place] [address] Performed By: #### 5 7021-8 #### [facility] CLIA [id number] [address] [place] [address] [place] Platelet mean volume (Bld) [Entitic vol] 10.2 fL Normal 9.0-12.7 [facility] Comment on above: Order Comment: Speci men Type: BLOOD SPECIMEN [facility]: [facility] Address: [address] [place] [address] Performed By: #### 5 7021-8 #### [facility] CLIA [id number] [address] Platelets (Bld) [#/Vol] 260 10*3/uL Normal 150-400 [facility] Comment on above: Order Comment: Speci men Type: BLOOD SPECIMEN [facility] Address: [address] [place] [address] Performed By: #### 5 7021-8 #### [facility] CLIA [id number] [address] [place] RBC (Bld) [#/Vol] 4.14 10*6/uL Normal 3.90-5.20 [facility] Comment on above: Order Comment: Speci men Type: BLOOD SPECIMEN [facility] Address: [address] [place] [address] Performed By: #### 5 7021-8 #### [facility] CLIA [id number] [address] [place] WBC (Bld) [#/Vol] 7.38 10*3/uL Normal 3.70-11.00 [facility] Comment on above: Order Comment: Speci men Type: BLOOD SPECIMEN [facility] Address: [address] [place] [address] Performed By: #### 5 7021-8 #### [facility] CLIA [id number] [address] CBC panel Auto (Bld)on 03-09 Erythrocyte distribution width (RBC) [Ratio] 15.9 % High 11.5-15.0 [facility] Comment on above: Order Comment: Speci men Type: BLOOD SPECIMENOrdering Facility: [facility] Address: [address] [place] [address] Performed By: #### 5 8410-2 ####[facility]ORATORYCLIA [id number] [address] Hematocrit (Bld) [Volume fraction] 38.2 % Normal 36.0-46.0 [facility] Comment on above: Order Comment: Speci men Type: BLOOD SPECIMENOrdering Facility: [facility] Address: [address] [place] [address] Performed By: #### 5 8410-2 ####[facility]ORATORYCLIA [id number] [address] Hemoglobin (Bld) [Mass/Vol] 12.1 g/dL Normal 11.5-15.5 [facility] Comment on above: Order Comment: Speci men Type: BLOOD SPECIMENOrdering Facility: [facility] Address: [address] [place] [address] Performed By: #### 5 8410-2 ####[facility]ORATORYCLIA [id number] [address] [place] MCH (RBC) [Entitic mass] 28.8 pg Normal 26.0-34.0 [facility] Comment on above: Order Comment: Speci men Type: BLOOD SPECIMENOrdering Facility: [facility] Address: [address] [place] [address] Performed By: #### 5 8410-2 ####[facility]ORATORYCLIA [id number] [address] MCHC (RBC) [Mass/Vol] 31.7 g/dL Normal 30.5-36.0 [facility] Comment on above: Order Comment: Speci men Type: BLOOD SPECIMENOrdering Facility: [facility] Address: [address] [place] [address] Performed By: #### 5 8410-2 ####[facility]ATORYCLIA [id number] [address] [place] MCV (RBC) [Entitic vol] 91.0 fL Normal 80.0-100.0 [facility] Comment on above: Order Comment: Speci men Type: BLOOD SPECIMENOrdering Facility: [facility] Address: [address] [place] [address] Performed By: #### 5 8410-2 ####[facility]ATORYCLIA [id number] [address] Nucleated RBC (Bld) [#/Vol] 10*3/uL Normal <0.01 [facility] Comment on above: Order Comment: Speci men Type: BLOOD SPECIMENOrdering Facility: [facility] Address: [address] [address] Performed By: #### 5 8410-2 ####[facility]ORYCLIA [id number] [address] [place] Platelet mean volume (Bld) [Entitic vol] 10.3 fL Normal 9.0-12.7 [facility] Comment on above: Order Comment: Speci men Type: BLOOD SPECIMENOrdering Facility: [facility] Address: [address] Performed By: #### 5 8410-2 ####[facility]ORYCLIA [id number] [address] [place] Platelets (Bld) [#/Vol] 223 10*3/uL Normal 150-400 [facility] Comment on above: Order Comment: Speci men Type: BLOOD SPECIMENOrdering Facility: [facility] Address: [address] [place] [address] Performed By: #### 5 8410-2 ####[facility]ATORYCLIA [id number] [place] [address] [facility] [place] RBC (Bld) [#/Vol] 4.20 10*6/uL Normal 3.90-5.20 [facility] Comment on above: Order Comment: Speci men Type: BLOOD SPECIMENOrdering Facility: [facility] Address: [address] Performed By: #### 5 8410-2 ####[facility]CLIA [id number] [address] [place] WBC (Bld) [#/Vol] 5.86 10*3/uL Normal 3.70-11.00 [facility] Comment on above: Order Comment: Speci men Type: BLOOD SPECIMENOrdering Facility: [facility] Address: [address] [place], [place] [address] Performed By: #### 5 8410-2 ####[facility] [id number] [address] [place] CONSULTon 03-09-2022 CONSULT HNO ID: [id number] Author: Tressa Roberts APRN.CNP Service: Infectious Disease Author Type: Nurse Practitioner Type: Consults Filed: 03/09/2022 4:20 PM Note Text: INFECTIOUS DISEASE INITIAL CONSULT SERVICE DATE: 03/09/2022 SERVICE TIME: 4:14 PM REASON FOR CONSULT: COVID-19 Subjective Patient is seen at the request of Bay Salazar CNP. My final recommendations will be communicated back to the requesting physician by way of copy of this note or shared electronic medical record. HPI: Bradley Matos who is a 56 year old female presenting from the ER for evaluation of nausea and weakness. Patient with a PMH of anxiety, fibromyalgia, ulcerative colitis, morbid obesity, PTSD, recent CVA, and Sjogren?s syndrome. Patient reports having an ischemic stroke last at [facility] leaving her with residual left-sided weakness mainly in her left leg. She was discharged to [facility] rehab and left AMA today as she felt belittled by staff. Since being home she reports onset of nausea, dizziness, lightheadedness, and generalized weakness. She endorses urinary frequency and urinary incontinence today and is concerned for UTI. She also reports onset today of a dry cough and chills. She denies fever. She reports an onset of chest pressure earlier in the day that has since resolved. She denies radiation of her chest pressure and states she experiences this occasionally due to her anxiety. She denies shortness of breath, abdominal pain, vomiting, or diarrhea. She denies worsening of her left lower extremity weakness or onset of new neurologic symptoms. She states she thought she would be able to manage at home with the help of her daughter but her daughter has to work and she does not feel strong enough to take care of herself at this time. She wishes to go to [facility] for rehab. ? ED workup: Labs and imaging in ER remarkable for glucose-139, RDW-CV-15.7, Abs mono-0.98. UA showing specific gravity >=1.030 and trace protein. ? CRP 4.6 D-dimer 2390 No leukocytosis Patient is currently saturating well on 2L NC. CXR with no acute radiographic abnormality Patient has been started on Decadron and Remdesivir. PAST MEDICAL HISTORY Diagnosis Date - Anxiety - Fatigue chronic fatigue syndrome - Fibromyalgia - GI problem UC and prior ulcers - Medial meniscus tear 12/19/2014 - Morbid obesity (HCC) - Post traumatic stress disorder (PTSD) - Scabies - Sjogren's syndrome (HCC) PAST SURGICAL HISTORY Procedure Laterality Date - ARTHROSCOPY KNEE DIAGNOSTIC W/WO SYNOVIAL BX SPX Left 01/19/15 Arthroscopy, knee - SECTION HX - UNL LAPAR WEDGE RESECTION SIGM COLON 10/30/2016 Maynor Randall Social History Tobacco Use - Smoking status: Never Smoker - Smokeless tobacco: Never Used Substance Use Topics - Alcohol use: No - Drug use: No FAMILY HISTORY Problem Relation Age of Onset - None Brother - None Brother - Arthritis Mother - GI Mother - Hypertension Mother - Arthritis Brother - Cancer Brother - Emphysema Father - Heart Father - Stroke Father - Headache Brother - Heart Brother - Heart Brother - Psychiatry Brother - Seizures Brother Immunization History Administered Date(s) Administered Influenza Vaccine, Whole 06/23/2016 Pneumovax 06/23/2015 Current Facility-Administered Medications Medication Dose Route Frequency - sodium chloride 0.9 % (flush) 3-5 mL (BD POSIFLUSH) 3-5 mL INTRAVENOUS q 12 H - NaCl 0.9% iv flush bag 20 mL INTRAVENOUS PRN - heparin 5,000 Units injection 5,000 Units SUBCUTANEOUS q 12 H - acetaminophen 650 mg tab(s) (TYLENOL) 650 mg ORAL q 6 H PRN - dexAMETHasone 6 mg (DECADRON) 6 mg ORAL DAILY Or - dexAMETHasone sodium phosphate 6 mg injection (DECADRON) 6 mg INTRAVENOUS DAILY - lidocaine 4 % 2 Patch (SALONPAS) 2 Patch TRANSDERMAL DAILY And - lidocaine - VERIFY PATCH OTHER q 8 H - hydrALAZINE 10 mg tab(s) (APRESOLINE) 10 mg ORAL QID PRN - methocarbamol 750 mg tab(s) (ROBAXIN) 750 mg ORAL QID - docusate sodium 100 mg cap(s) (COLACE) 100 mg ORAL BID PRN - amLODIPine 10 mg tab(s) (NORVASC) 10 mg ORAL DAILY - atorvastatin 40 mg tab(s) (LIPITOR) 40 mg ORAL DAILY - clopidogrel 75 mg tab(s) (PLAVIX) 75 mg ORAL DAILY - capsaicin 0.025 % cream (ZOSTRIX) TOPICAL BID ALLERGIES Allergen Reactions - Permethrin Rash - Asa [Salicylates] GI Upset - Ciprofloxacin Itching - Darvon [Propoxyphen* Unknown - Dilaudid [Hydromorp* Other: See Comments bp crashes - Iodine Vomiting - Morphine Intolerance - Nucynta [Tapentadol] Swelling Swelling in the esophagus - Propofol Shortness of Breath, Other: See Comments Blood pressure was low - Skelaxin [Metaxalon* Itching - Sulfa Dyne Unknown - Tetracycline Rash - Tramadol Other: See Comments Vomiting, disoriented, shaking - Zantac [Ranitidine * Vomiting REVIEW OF SYSTEMS: ROS checked in details x 10 systems and is negative except as noted in the HP (more content not included)... Normal [facility] CRP SerPl-mCncon 03-09-2022 CRP [Mass/Vol] 4.6 mg/dL High <0.9 [facility] Comment on above: Order Comment: Speci men Type: BLOOD SPECIMENOrdering Facility: [facility] Address: [address] [place] [address] Performed By: #### 1 988-5, 20822-4 ####TOWER LABORATORYCLIA [id number] [place] [address] [facility] Comprehensive metabolic 2000 panelon 03-09-2022 Albumin [Mass/Vol] 3.9 g/dL Normal 3.9-4.9 [facility] Comment on above: Order Comment: Speci men Type: BLOOD SPECIMENOrdering Facility: [facility] Address: [address] [place] [address] Performed By: #### 1 988-5, 23493-9 ####TOWER LABORATORYCLIA [id number] [address] [place] [facility] ALP [Catalytic activity/Vol] 78 U/L Normal 34-123 [facility] Comment on above: Order Comment: Speci men Type: BLOOD SPECIMENOrdering Facility: [facility] Address: [address] [place] [address] Performed By: #### 1 988-5, 37133-7 ####TOWER LABORATORYCLIA [id number] [place] [address] [place] ALT [Catalytic activity/Vol] 17 U/L Normal 7-38 [facility] Comment on above: Order Comment: Speci men Type: BLOOD SPECIMENOrdering Facility: [facility] Address: [address] [address] Performed By: #### 1 988-5, ####LAMBERT LABORATORYCLIA [id number] [place] [address] [place] Anion gap [Moles/Vol] 10 mmol/L Normal 9-18 [facility] Comment on above: Order Comment: Speci men Type: BLOOD SPECIMENOrdering Facility: [facility] Address: [address] [place] [address] Performed By: #### 1 988-5, ####LAMBERT LABORATORYCLIA [id number] [place] [address] [place] AST [Catalytic activity/Vol] 29 U/L Normal 13-35 [facility] Comment on above: Order Comment: Speci men Type: BLOOD SPECIMENOrdering Facility: [facility] Address: [address] [place] [address] Performed By: #### 1 988-5, ####LAMBERT LABORATORYCLIA [id number] [place] [address] [place] Bilirubin [Mass/Vol] 0.6 mg/dL Normal 0.2-1.3 [facility] Comment on above: Order Comment: Speci men Type: BLOOD SPECIMENOrdering Facility: [facility] Address: [address] [address] Performed By: #### 1 988-5, ####LAMBERT LABORATORYCLIA [id number] [address] [place] Calcium [Mass/Vol] 9.1 mg/dL Normal 8.5-10.2 [facility] Comment on above: Order Comment: Speci men Type: BLOOD SPECIMENOrdering Facility: [facility] Address: [facility] [place] [address] Performed By: #### 1 988-5, 88384-5 ####LAMBERT LABORATORYCLIA [id number] [address] [place] Chloride [Moles/Vol] 98 mmol/L Normal 97-105 [facility] Comment on above: Order Comment: Speci men Type: BLOOD SPECIMENOrdering Facility: [facility] Address: [address] [place] [address] Performed By: #### 1 988-5, 30146-0 ####LAMBERT LABORATORYCLIA [id number] [address] OF [facility] CO2 [Moles/Vol] 30 mmol/L Normal 22-30 [facility] Comment on above: Order Comment: Speci men Type: BLOOD SPECIMENOrdering Facility: [facility] Address: [address] [place] [address] Performed By: #### 1 988-5, 18925-3 ####TOWER LABORATORYCLIA [id number] [address] Creatinine [Mass/Vol] 0.89 mg/dL Normal 0.58-0.96 [facility] Comment on above: Order Comment: Speci men Type: BLOOD SPECIMENOrdering Facility: [facility] Address: [address] [place] [address] Performed By: #### 1 988-5, 49387-2 ####LAMBERT LABORATORYCLIA [id number] [address] ESTIMATED GLOMERULAR FILTRATION RATE 77 mL/min/1.73m??? Normal >=60 [facility] Comment on above: Order Comment: Speci men Type: BLOOD SPECIMENOrdering Facility: [facility] Address: [address] [place] [address] Result Comment: Cecille mated Glomerular Filtration Rate (eGFR) is calculated using the 2020 CKD-EPI creatinine equation. This equation utilizes serum creatinine, sex, and age as parameters. The creatinine assay has traceable calibration to isotope dilution-mass spectrometry. Refer to KDIGO guidelines for clinical interpretation. In patients with unstable renal function, e.g. those with acute kidney injury, the eGFR may not accurately reflect actual GFR. Performed By: #### 1 988-58 ####TOWER LABORATORYCLIA [id number] [place] [address] [place] Glucose [Mass/Vol] 106 mg/dL High 74-99 [facility] Comment on above: Order Comment: Susie santizo Type: BLOOD SPECIMENOrdering Facility: [facility] Address: [address] [place] [address] Result Comment: The [place] Diabetes Association (ADA) provides guidance for cutoff values for fasting glucose and random glucose. The ADA defines fasting as no caloric intake for at least 8 hours. Fasting plasma glucose results between 100 to 125 mg/dL indicate increased risk for diabetes (prediabetes). Fasting plasma glucose results greater than or equal to 126 mg/dL meet the criteria for diagnosis of diabetes. In the absence of unequivocal hyperglycemia, results should be confirmed by repeat testing. In a patient with classic symptoms of hyperglycemia or hyperglycemic crisis, random plasma glucose results greater than or equal to 200 mg/dL meet the criteria for diagnosis of diabetes. Reference: Standards of Medical Care in Diabetes 2016, [place] [employer]. Diabetes Care. 2016.39(Suppl 1). Performed By: #### 1 988-5, ####TOWER LABORATORYCLIA [id number] [place] [address] [place] Potassium [Moles/Vol] 3.5 mmol/L Low 3.7-5.1 [facility] Comment on above: Order Comment: Susie santizo Type: BLOOD SPECIMENOrdering Facility: [facility] Address: [address] [place] [address] Performed By: #### 1 988-5, ####TOWER LABORATORYCLIA [id number] [place] [address] [place] Protein [Mass/Vol] 7.5 g/dL Normal 6.3-8.0 [facility] Comment on above: Order Comment: Susie santizo Type: BLOOD SPECIMENOrdering Facility: [facility] Address: [address] [place], [place] [id number] Performed By: #### 1 988-5, 60036-9 ####TOWER LABORATORYCLIA [id number] [place] [place] [address] Sodium [Moles/Vol] 138 mmol/L Normal 136-144 [facility] Comment on above: Order Comment: Speci men Type: BLOOD SPECIMENOrdering Facility: [facility] Address: [address] [place] [address] Performed By: #### 1 988-5, 07330-5 ####LAMBERT LABORATORYCLIA [id number] [address] [place] [facility] Urea nitrogen [Mass/Vol] 16 mg/dL Normal 7-21 [facility] Comment on above: Order Comment: Speci men Type: BLOOD SPECIMENOrdering Facility: [facility] Address: [address] [place] [address] Performed By: #### 1 988-5, 07001-0 ####LAMBERT LABORATORYCLIA [id number] [address] Albumin [Mass/Vol] 3.9 g/dL Normal 3.9-4.9 [facility] Comment on above: Order Comment: Speci men Type: BLOOD SPECIMENOrdering Facility: [facility] Address: [address] [place] [address] Performed By: #### 1 9123-9, 35575-9, 3016-3 ####LAMBERT LABORATORYCLIA [id number] [address] STATES OF [facility] ALP [Catalytic activity/Vol] 78 U/L Normal 34-123 [facility] Comment on above: Order Comment: Speci men Type: BLOOD SPECIMENOrdering Facility: [facility] Address: [address] Performed By: #### 1 9123-9, 78083-3, 3016-3 ####LAMBERT LABORATORYCLIA [id number] [address] [place] ALT [Catalytic activity/Vol] 17 U/L Normal 7-38 [facility] Comment on above: Order Comment: Speci men Type: BLOOD SPECIMENOrdering Facility: [facility] Address: [address] [place], [place] [address] Performed By: #### 1 9123-9, 97705-1, 6-3 ####TOWER LABORATORYCLIA [id number] [place] [address] [place] Anion gap [Moles/Vol] 10 mmol/L Normal 9-18 [facility] Comment on above: Order Comment: Speci men Type: BLOOD SPECIMENOrdering Facility: [facility] Address: [address] [place] [address] Performed By: #### 1 9123-9, 10250-0, 3015-3 ####TOWER LABORATORYCLIA [id number] [place] [address] [place] AST [Catalytic activity/Vol] Normal [facility] Comment on above: Order Comment: Speci men Type: BLOOD SPECIMENOrdering Facility: [facility] Address: [address] [place] [address] Result Comment: Unab le to assay due to interference from hemolysis. Suggest reorder as clinically indicated. Performed By: #### 1 9123-9, 03968-2, 3015-3 ####TOWER LABORATORYCLIA [id number] [place] [address] [place] Bilirubin [Mass/Vol] 0.5 mg/dL Normal 0.2-1.3 [facility] Comment on above: Order Comment: Speci men Type: BLOOD SPECIMENOrdering Facility: [facility] Address: [address] [place] [address] Performed By: #### 1 9123-9, 51289-2, 3 ####TOWER LABORATORYCLIA [id number] [place] [address] [place] Calcium [Mass/Vol] 9.3 mg/dL Normal 8.5-10.2 [facility] Comment on above: Order Comment: Speci men Type: BLOOD SPECIMENOrdering Facility: [facility] Address: [address] [place] [address] Performed By: #### 1 9123-9, 82620-3, 6-3 ####TOWER LABORATORYCLIA [id number] [place] [address] [place] Chloride [Moles/Vol] 98 mmol/L Normal 97-105 [facility] Comment on above: Order Comment: Speczeke men Type: BLOOD SPECIMENOrdering Facility: [facility] Address: [address] [address] Performed By: #### 1 9123-9, 66592-4, 3015-3 ####LAMBERT LABORATORYCLIA [id number] [place] [address] [place] CO2 [Moles/Vol] 28 mmol/L Normal 22-30 [facility] Comment on above: Order Comment: Speci men Type: BLOOD SPECIMENOrdering Facility: [facility] Address: [address] [place] [address] Performed By: #### 1 9123-9, 99690-2, 3 ####TOWER LABORATORYCLIA [id number] [address] OF [facility] Creatinine [Mass/Vol] 0.85 mg/dL Normal 0.58-0.96 [facility] Comment on above: Order Comment: Speci men Type: BLOOD SPECIMENOrdering Facility: [facility] Address: [address] [place] [address] Performed By: #### 1 9123-9, 02086-9, 3 ####LAMBERT LABORATORYCLIA [id number] [address] ESTIMATED GLOMERULAR FILTRATION RATE 82 mL/min/1.73m??? Normal >=60 [facility] Comment on above: Order Comment: Tristiani men Type: BLOOD SPECIMENOrdering Facility: [facility] Address: [address] [place] [address] Result Comment: Cecille mated Glomerular Filtration Rate (eGFR) is calculated using the 2020 CKD-EPI creatinine equation. This equation utilizes serum creatinine, sex, and age as parameters. The creatinine assay has traceable calibration to isotope dilution-mass spectrometry. Refer to KDIGO guidelines for clinical interpretation. In patients with unstable renal function, e.g. those with acute kidney injury, the eGFR may not accurately reflect actual GFR. Performed By: #### 1 9123-9, 51598-8, 6-3 ####LAMBERT LABORATORYCLIA [id number] [place] [address] [place] Glucose [Mass/Vol] 139 mg/dL High 74-99 [facility] Comment on above: Order Comment: Susie santizo Type: BLOOD SPECIMENOrdering Facility: [facility] Address: [address] [place], [place] [phone] Result Comment: The [place] Diabetes Association (ADA) provides guidance for cutoff values for fasting glucose and random glucose. The ADA defines fasting as no caloric intake for at least 8 hours. Fasting plasma glucose results between 100 to 125 mg/dL indicate increased risk for diabetes (prediabetes). Fasting plasma glucose results greater than or equal to 126 mg/dL meet the criteria for diagnosis of diabetes. In the absence of unequivocal hyperglycemia, results should be confirmed by repeat testing. In a patient with classic symptoms of hyperglycemia or hyperglycemic crisis, random plasma glucose results greater than or equal to 200 mg/dL meet the criteria for diagnosis of diabetes. Reference: Standards of Medical Care in Diabetes 2016, [place] [employer]. Diabetes Care. 2016.39(Suppl 1). Performed By: #### 1 9123-9, 31121-2, 6-3 ####TOWER LABORATORYCLIA [id number] [place] [address] [place] Potassium [Moles/Vol] 4.2 mmol/L Normal 3.7-5.1 [facility] Comment on above: Order Comment: Susie santizo Type: BLOOD SPECIMENOrdering Facility: [facility] Address: [address] [place], [place] [phone] Performed By: #### 1 9123-9, 47505-7, 6-3 ####TOWER LABORATORYCLIA [id number] [place] [address] [place] Protein [Mass/Vol] 7.5 g/dL Normal 6.3-8.0 [facility] Comment on above: Order Comment: Susie santizo Type: BLOOD SPECIMENOrdering Facility: [facility] Address: [address] [place], [place] [phone] Performed By: #### 1 9123-9, 99739-6, 6-3 ####LAMBERT LABORATORYCLIA [id number] [address] Sodium [Moles/Vol] 136 mmol/L Normal 136-144 [facility] Comment on above: Order Comment: Speci men Type: BLOOD SPECIMENOrdering Facility: [facility] Address: [address] [place], [place] [address] Performed By: #### 1 9123-9, 31691-4, 3016-3 ####TOWER LABORATORYCLIA [id number] [address] Urea nitrogen [Mass/Vol] 16 mg/dL Normal 7-21 [facility] Comment on above: Order Comment: Speci men Type: BLOOD SPECIMENOrdering Facility: [facility] Address: [address] [place] [address] Performed By: #### 1 9123-9, 76196-1, 3016-3 ####TOWER LABORATORYCLIA [id number] [address] [place] D dimer FEU PPP-mCncon 03-09 Fibrin D-dimer FEU (PPP) [Mass/Vol] 2390 ng/mL FEU High <500 [facility] Comment on above: Order Comment: Speci men Type: BLOOD SPECIMENOrdering Facility: [facility] Address: [address] [place] [address] Performed By: #### 4 8065-7, 94721-9 ####TOWER LABORATORYCLIA [id number] [address] [place] ED NOTEon 03-09-2022 ED NOTE HNO ID: [id number] Author: Viji Spears RN Service: ? Author Type: Registered Nurse Type: ED Notes Filed: 03/08/2022 10:49 PM Note Text: Bed: ED-04 Expected date: Expected time: Means of arrival: [facility] Comments: Normal [facility] ED PROV NOTEon 03-09-2022 ED PROV NOTE HNO ID: [id number] Author: Jean-Paul Cool MD Service: ? Author Type: Physician Type: ED Provider Notes Filed: 03/09/2022 2:08 AM Note Text: ED Provider Note Patient Name: Bradley Matos : 1965 SERVICE DATE: 03/08/22 History Patient presents with: Nausea: started today since getting home from rehab Musculoskeletal Problem: left sided weakness since getting dx with a CVA but left AMA when found out was out of TPA window 56-year-old female, with a history of fibromyalgia, obesity, PTSD, Sjogren's syndrome, recent stroke, presents by squad from home with nausea and weakness. The patient states she recently had a stroke leaving her with left-sided weakness. She states this was done at [facility]. She was then discharged to [facility] rehab and left AMA today as she felt like the staff was belittling her for her lack of efforts and rehab. Now that she has been at home she is still feeling lousy, nauseated and feeling if she has a UTI as she is having some incontinence and frequency today. She still has some mild left-sided weakness but no new symptoms. She did not receive tPA at her initial stroke. The patient wishes to go to [facility] rehab History provided by: Patient and EMS personnel PAST MEDICAL HISTORY Diagnosis Date - Anxiety - Fatigue chronic fatigue syndrome - Fibromyalgia - GI problem UC and prior ulcers - Medial meniscus tear 12/19/2014 - Morbid obesity (HCC) - Post traumatic stress disorder (PTSD) - Scabies - Sjogren's syndrome (HCC) PAST SURGICAL HISTORY Procedure Laterality Date - SECTION HX - KNEE SCOPE,DIAGNOSTIC Left 01/19/15 Arthroscopy, knee - UNL LAPAR WEDGE RESECTION SIGM COLON 10/30/2016 [facility] Randall FAMILY HISTORY Problem Relation Age of Onset - None Brother - None Brother - Arthritis Mother - GI Mother - Hypertension Mother - Arthritis Brother - Cancer Brother - Emphysema Father - Heart Father - Stroke Father - Headache Brother - Heart Brother - Heart Brother - Psychiatry Brother - Seizures Brother Social History Tobacco Use - Smoking status: Never Smoker - Smokeless tobacco: Never Used Substance and Sexual Activity - Alcohol use: No - Drug use: No - Sexual activity: Never ALLERGIES Allergen Reactions - Permethrin Rash - Asa [Salicylates] GI Upset - Ciprofloxacin Itching - Darvon [Propoxyphen* Unknown - Dilaudid [Hydromorp* Other: See Comments bp crashes - Iodine Vomiting - Morphine Intolerance - Nucynta [Tapentadol] Swelling Swelling in the esophagus - Propofol Shortness of Breath, Other: See Comments Blood pressure was low - Skelaxin [Metaxalon* Itching - Sulfa Dyne Unknown - Tetracycline Rash - Tramadol Other: See Comments Vomiting, disoriented, shaking - Zantac [Ranitidine * Vomiting Review of Systems Constitutional: Negative for chills and fever. HENT: Negative. Eyes: Negative for photophobia and visual disturbance. Respiratory: Negative for cough and shortness of breath. Cardiovascular: Negative for chest pain. Gastrointestinal: Positive for nausea. Negative for abdominal pain, blood in stool, constipation, diarrhea and vomiting. Genitourinary: Positive for frequency. Negative for difficulty urinating, dysuria and urgency. Musculoskeletal: Negative for back pain. Skin: Negative for rash and wound. Neurological: Positive for weakness (left sided). Negative for dizziness, light-headedness, numbness and headaches. Hematological: Negative. Psychiatric/Behavioral: Negative. Physical Exam Vitals [03/08/22 2251] BP Pulse Temp Temp src Resp SpO2 Weight Height 173/70 (!) 98 37.2 ?C (99 ?F) Oral 18 95 % (!) 154 kg (339 lb 8.1 oz) 1.676 m (5' 6") Physical Exam Vitals and nursing note reviewed. Constitutional: General: She is not in acute distress. Appearance: Normal appearance. She is not ill-appearing or toxic-appearing. HENT: Head: Normocephalic and atraumatic. Nose: Nose normal. Mouth/Throat: Mouth: Mucous membranes are moist. Pharynx: Oropharynx is clear. Eyes: Extraocular Movements: Extraocular movements intact. Conjunctiva/sclera: Conjunctivae normal. Cardiovascular: Rate and Rhythm: Normal rate and regular rhythm. Pulmonary: Effort: Pulmonary effort is normal. No respiratory distress. Breath sounds: Normal breath sounds. No wheezing. Abdominal: General: There is no distension. Palpations: Abdomen is soft. Tenderness: There is no abdominal tenderness. There is no guarding. Musculoskeletal: General: Normal range of motion. Cervical back: Normal range of motion and neck supple. No rigidity. Skin: General: Skin is warm. Neurological: General: No focal deficit present. Mental Status: She is alert and oriented to person, place, and time. Cranial Nerves: No cranial nerve deficit. Sensory: No sensory deficit. Comments: Upper extremity strength is normal Lower extremity mild we (more content not included)... Normal [facility] Fibrin D-dimer FEU (PPP) [Ma ss/Vol]on 03-09-2022 D DIMER AGE-RELATED CUTOFF 540 ng/mL FEU Normal [facility] Comment on above: Order Comment: Speci men Type: BLOOD SPECIMENOrdering Facility: [facility] Address: [address] [place], [place] [id number] Performed By: #### 4 8065-7, 29370-2 ####TOWER LABORATORYCLIA [id number] [place] [address] [place] HISTORY PHYSICALon HISTORY PHYSICAL HNO ID: [id number] Author: Eddy Rebolledo MD Service: General Internal Medicine Author Type: Physician Type: HANDP Filed: 03/09/2022 11:18 AM Note Text: History and Physical Examination 03/09/2022 [facility] STAFF PHYSICIAN NOTE OF PERSONAL INVOLVEMENT IN CARE I have reviewed the history and physical examination obtained and documented by the nurse practitioner and I personally participated in the lynn components. I have discussed the case and management of the patient's care. The following comments revise or confirm relevant lynn components of their note. SIGNATURE: Eddy Rebolledo MD DATE of SERVICE: March 09, 2022 TIME of SERVICE: 11:18 AM SERVICE DATE: 03/09/2022 SERVICE TIME: 0340 PCP: Didier Hicks MD PRIMARY ATTENDING: Dr. Eddy Rebolledo MD Subjective CHIEF COMPLAINT: Nausea (started today since getting home from rehab) and Generalized weakness HPI: Patient is a 56-year-old female presenting from the ER for evaluation of nausea and weakness. Patient with a PMH of anxiety, fibromyalgia, ulcerative colitis, morbid obesity, PTSD, recent CVA, and Sjogren?s syndrome. Patient reports having an ischemic stroke last at [facility] leaving her with residual left-sided weakness mainly in her left leg. She was discharged to [facility] rehab and left AMA today as she felt belittled by staff. Since being home she reports onset of nausea, dizziness, lightheadedness, and generalized weakness. She endorses urinary frequency and urinary incontinence today and is concerned for UTI. She also reports onset today of a dry cough and chills. She denies fever. She reports an onset of chest pressure earlier in the day that has since resolved. She denies radiation of her chest pressure and states she experiences this occasionally due to her anxiety. She denies shortness of breath, abdominal pain, vomiting, or diarrhea. She denies worsening of her left lower extremity weakness or onset of new neurologic symptoms. She states she thought she would be able to manage at home with the help of her daughter but her daughter has to work and she does not feel strong enough to take care of herself at this time. She wishes to go to [facility] for rehab. ED workup: Labs and imaging in ER remarkable for glucose-139, RDW-CV-15.7, Abs mono-0.98. UA showing specific gravity >=1.030 and trace protein. History provided by: patient and EMR FUNCTIONAL STATUS: Partially dependent PAST MEDICAL HISTORY Diagnosis Date - Anxiety - Fatigue chronic fatigue syndrome - Fibromyalgia - GI problem UC and prior ulcers - Medial meniscus tear 12/19/2014 - Morbid obesity (HCC) - Post traumatic stress disorder (PTSD) - Scabies - Sjogren's syndrome (HCC) PAST SURGICAL HISTORY Procedure Laterality Date - ARTHROSCOPY KNEE DIAGNOSTIC W/WO SYNOVIAL BX SPX Left 01/19/15 Arthroscopy, knee - SECTION HX - UNL LAPAR WEDGE RESECTION SIGM COLON 10/30/2016 Maynor Randall FAMILY HISTORY Problem Relation Age of Onset - None Brother - None Brother - Arthritis Mother - GI Mother - Hypertension Mother - Arthritis Brother - Cancer Brother - Emphysema Father - Heart Father - Stroke Father - Headache Brother - Heart Brother - Heart Brother - Psychiatry Brother - Seizures Brother Social History Tobacco Use - Smoking status: Never Smoker - Smokeless tobacco: Never Used Substance Use Topics - Alcohol use: No - Drug use: No I have confirmed and edited as necessary, the PFSH obtained by others. ALLERGIES Allergen Reactions - Permethrin Rash - Asa [Salicylates] GI Upset - Ciprofloxacin Itching - Darvon [Propoxyphen* Unknown - Dilaudid [Hydromorp* Other: See Comments bp crashes - Iodine Vomiting - Morphine Intolerance - Nucynta [Tapentadol] Swelling Swelling in the esophagus - Propofol Shortness of Breath, Other: See Comments Blood pressure was low - Skelaxin [Metaxalon* Itching - Sulfa Dyne Unknown - Tetracycline Rash - Tramadol Other: See Comments Vomiting, disoriented, shaking - Zantac [Ranitidine * Vomiting Prior to Admission Medications Prescriptions Last Dose Informant Patient Reported? Taking? acetaminophen (TYLENOL ARTHRITIS ORAL) 03/08/2022 at 0900 Yes Yes Sig: Take by mouth. dicyclomine (BENTYL) 20 mg tablet 03/08/2022 at Unknown time Yes Yes Sig: Take 20 mg by mouth as needed. diphenoxylate-atropine (LOMOTIL) 2.5-0.025 mg per tablet Yes Yes Sig: Take 1 tablet by mouth as needed. gabapentin (NEURONTIN) 100 mg capsule 03/08/2022 at Unknown time Yes Yes Sig: Take 100 mg by mouth as needed. ondansetron orally disintegrating (ZOFRAN ODT) 4 mg disintegrating tablet No No Sig: Take 1 tablet by mouth every 8 hours as needed for Nausea/Vomiting. promethazine (PHENERGAN) 25 mg tablet No Yes Sig: Take 1 tablet by mouth every 4 hours as needed for Nausea/Vomiting. rabeprazole (ACIPHEX) 20 mg ORAL tablet 03/08/2022 at 0900 Yes Yes Sig: Take 20 mg by mouth once (more content not included)... Normal [facility] Magnesium SerPl-mCncon 03-09 Magnesium [Mass/Vol] 1.9 mg/dL Normal 1.7-2.3 [facility] Comment on above: Order Comment: Speci men Type: BLOOD SPECIMENOrdering Facility: [facility] Address: [address] [place], [place] [address] Performed By: #### 1 9123-9, 85543-1, 3016-3 ####[facility]ORATORYCLIA [id number] [place] [address] [place] NURSING PROGon 03-09-2022 NURSING PROG HNO ID: [id number] Author: Stefany Wagoner LPN Service: Nursing Author Type: LICENSED NURSE Type: Nursing Progress Note Filed: 03/09/2022 5:04 PM Note Text: Nursing Progress Note Patient Name: Bradley Matos [place] [id number] Daily Note: 0945 Call placed to [facility] [phone] to try to obtain pts medication list from her admission there. The secretsry tried to locate the info. Then she took name and number and said she was going to see if pharmacy would be able to provide the needed info. Will call back. 1015 Spoke with Lani Tsang, pharmacist who provided list of medications pt had been taking at [facility]. Updated home medication list and notified Dr Rebolledo that it was completed. 1430 Pt having large amount gritty diarrhea. Noted MD for pt request for lomotil. 1630 PRN imodium, newly ordered, provided to pt for c/o diarrhea. This note was completed by: Stefany Begum [facility] PT panel Coag (PPP)on 2021 INR Coag (PPP) [Relative time] 1.0 {INR} Normal 0.9-1.3 [facility] Comment on above: Order Comment: Speci men Type: BLOOD SPECIMENOrdering Facility: [facility] Address: [address] [place] [address] Result Comment: Maral min K Antagonist (VKA) Therapeutic Range: INR 2 to 3 (Target INR of 2.5) Note: For patients treated with VKA drugs, such as warfarin, the [place] [employer] 2012 Guideline recommends a therapeutic INR range of 2 to 3 (target INR of 2.5). This recommendation includes high-risk patients with antiphospholipid syndrome with previous arterial or venous thromboembolism, current-generation mechanical or bioprosthetic aortic heart valve replacement. Note: Patients with mechanical aortic valve replacement and additional risk factors for thromboembolic events (atrial fibrillation, previous thromboembolism, LV dysfunction, hypercoagulable conditions) or an older generation mechanical AVR (i.e., ball in-Cage) or any mechanical MVR should have a INR therapeutic range of 2.5 to 3.5 (target INR of 3). Haily HERMOSILLO, et al. Chest 2012, 141:7S-47S Hodan MENDES et al. [facility] 2017, 70: 252-289 Performed By: #### 4 8065-7, 80572-4 ####[facility] LABORATORYCLIA [id number] [address] PT Coag (PPP) [Time] 10.7 s Normal 9.7-13.0 [facility] Comment on above: Order Comment: Speci men Type: BLOOD SPECIMENOrdering Facility: [facility] Address: [facility] [place] [address] Performed By: #### 4 8065-7, 10432-0 ####[facility] LABORATORYCLIA [id number] [address] SARS-CoV-2 RNA Resp Ql SAVANNAH+p robeon 03-09-2022 SARS-CoV-2 (COVID-19) RNA SAVANNAH+probe Ql (Resp) COVID 19 RESULT: SARS-CoV-2 (Agent of COVID-19) Detected by RT-PCR or equivalent method. This test has been authorized by FDA under an Emergency Use Authorization (EUA). Normal [facility] Comment on above: Performed By: #### 9 4500-6 ####[facility] LABORATORYCLIA [id number] [address] THERAPY NTon 03-09-2022 THERAPY NT HNO ID: [id number] Author: Silvana Waggoner PT Service: Physical Therapy Author Type: Physical Therapist Type: Therapy (PT/OT/Speech/Resp) Filed: 03/09/2022 5:10 PM Note Text: Physical Therapy Evaluation SERVICE DATE: 03/09/2022 SERVICE TIME: 1505 to 1551 ROOM: [place] [address] Recommended Discharge Disposition: Subacute/SNF Recommended Discharge Disposition Comments: to safely increase strength/balance/functi on Recommended Discharge Disposition Due to: Patient requires daily, facility-based rehabilitation from at least one discipline due to:;decline in functional status requiring daily skilled care;ongoing intervention of multiple therapy disciplines Recommended Discharge Equipment: No equipment needs anticipated PT 6 Clicks Score: 8 Precautions/Activity Restrictions: Fall Risk;Lines/Tubes/Drains Current Hospital Course: patient admitted with Dxa: leg weakness, COVID 19 Relevant Past Medical History: scabes, fibromyalgia,morbid obesity, PTSD, anxiety, Sjogren's syndrom, fatigue, GI problems Response to Therapy Interventions: Low activity tolerance, Needs frequent redirection or re-instruction, Requires additional time to complete activities, Requires encouragement to complete activities, Slow progression with functional activities/skills Assessment Comments: heavy assist required for bed mobility and not safe for functional progression OOB due to level of assist and fatigue. Recent history of CVA with L sided weakness and new right lower extremity weakness/decreased ROM progression due to pain. Recent history of rehab - left AMA Continue skilled needs due to: Functional mobility/skill impairments, Safety concerns, Continued monitoring of vital signs during mobility required Physical Therapy Problem List: Pain;Safety Deficits;Impaired Self Care;Decreased Activity Tolerance;Decreased Range Of Motion;Decreased Strength;Functional Mobility Impairment;Balance Impaired Treatment Interventions: Education;Self Care / Home Management;Energy Conservation Training;Joint Mobility;Strengthening; Functional Mobility Training;Balance Training;Neuromuscular Re-education Home Environment Patient Lives With: Self/Alone;Other: See Comment Comments: in law suite Assistance Available: PRN Entry To Home: No Stairs (or 3 steps with rail) Number Of Stairs To Bed/Bath: 13 steps to living area Stairs to Bed/Bath with: Unilateral Rail Tub/Shower Type: tub/shower Laundry: basement laundry Equipment Owned: Wheeled Walker;Rollator Prior Functional Level: Within Functional Limits Prior Functional Level Comments: ind without device. has to pull up for transfers, asceds/descends stairs laterally. sleeps on couch in sidelyng CURRENT FUNCTIONAL STATUS: Most recent performance Current Functional Mobility Assist Level Additional Information Rolling Maximal Assistance;Additional Information max A to right and min to mod A to left x 3 trials each with heavy rail use Supine to Sit Maximal Assistance;Additional Information HOB flat,heavy rail use, slow to EOB. min A for R LE mgmt and max A for trunk mgmt Sit to Supine Maximal Assistance;Additional Information HOB flat, heavy rail use. cues for safe rail use for controlled descent Scooting Moderate Assistance;Additional Information in sitting fwd to EOB and in supine trendelenburg up in bed. with use of bed pad Sit to Stand Additional Information not appropriate for progression due to level of assist and fatigue Stand to Sit Bed to Chair Toilet/Commode Gait Additional Information not appropriate for progression Stairs Curb Step Car Transfer Blank ford indicate activity not attempted Balance: Dynamic Sitting;Static Sitting Static Sitting Balance: Fair Patient able to maintain balance with handhold support, may require occasional minimal assistance Dynamic Sitting Balance: Poor Patient unable to accept challenge or move without loss of balance Activity Tolerance: Sitting Activity Sitting Activity: sitting EOB Sitting Activity Tolerance (in minutes): 10 Learning/Educational Needs: Discharge Plan;Equipment;Function al Activities/Mobility;Julia n of Care;Precautions;Rehabi litation Techniques and Procedures;Safety Goals for Plan of Care: Patient /Caregiver Goals: Go To Rehab Goals: Patient will demonstrate understanding of importance of mobility during hospital stay and resolve all functional needs identified.;Patient will demonstrate progress to optimize functional mobility, maximize activity tolerance and endurance to maximize function upon discharge. Progress Toward Goals: Progressing slower than expected Due To: fatigue, weakness, pain Rehab Potential: Fair Patient will be discontinued from Physical Therapy when no further skilled needs are identified in this setting. PLAN: PT Frequency: 4 times per week Plan of Care developed with: Patient TREATMENT INTERVENTIONS: Therapy Diagnosis: Reduced mobility-other (more content not included)... Normal [facility] TROPONIN Ton 03-09-2022 Troponin T.cardiac [Mass/Vol] ug/L Normal 0.000-0.029 [facility] Comment on above: Order Comment: Speci men Type: BLOOD SPECIMENOrdering Facility: [facility] Address: [address] [place] [address] Performed By: #### T NT ####TOWER LABORATORYCLIA [id number] [place] [address] [place] TSH SerPl-aCncon 03-09-2022 TSH Qn 2.680 m[IU]/L Normal 0.270-4.200 [facility] Comment on above: Order Comment: Speci men Type: BLOOD SPECIMENOrdering Facility: [facility] Address: [address] [place] [address] Performed By: #### 1 9123-9, 52377-7, 3016-3 ####TOWER LABORATORYCLIA [id number] [place] [address] [place] URINALYSIS, REFLEX MICROSCOP ICon 03-09-2022 Bilirubin Ql (U) Negative Normal Negative [facility] Comment on above: Order Comment: Speci men Type: BLOOD SPECIMEN [facility] Address: [address] [place] [address] Performed By: #### 5 7021-8 #### [facility] CLIA [id number] [address] Clarity (Unsp spec) Clear Normal Clear [facility] Comment on above: Order Comment: Speci men Type: BLOOD SPECIMEN [facility] Address: [address] [place] [address] Performed By: #### 5 7021-8 #### [facility] CLIA [id number] [address] Color (U) Yellow Normal Yellow [facility] Comment on above: Order Comment: Speci men Type: BLOOD SPECIMEN [facility] Address: [address] [place] [address] Performed By: #### 5 7021-8 #### [facility] CLIA [id number] [address] Epithelial cells LM.HPF (Urine sed) [#/Area] Few Normal [facility] Comment on above: Order Comment: Speci men Type: BLOOD SPECIMEN [facility]: [facility] Address: [address] [place] [address] Performed By: #### 5 7021-8 #### [facility] CLIA [id number] [address] Glucose Test strip (U) [Mass/Vol] Negative Normal Negative [facility] Comment on above: Order Comment: Speci men Type: BLOOD SPECIMEN [facility] Address: [address] [place] [address] Performed By: #### 5 7021-8 #### [facility] CLIA [id number] [address] Hemoglobin Ql (U) Negative Normal Negative [facility] Comment on above: Order Comment: Speci men Type: BLOOD SPECIMEN [facility]: [facility] Address: [address] [place] [address] Performed By: #### 5 7021-8 #### [facility] CLIA [id number] [address] Ketones Ql (U) Negative Normal Negative [facility] Comment on above: Order Comment: Speci men Type: BLOOD SPECIMEN [facility] Address: [address] [place] [address] Performed By: #### 5 7021-8 #### [facility] CLIA [id number] [address] Leukocyte esterase Test strip Ql (U) Negative Normal Negative [facility] Comment on above: Order Comment: Speci men Type: BLOOD SPECIMEN [facility] Address: [address] [place] [address] Performed By: #### 5 7021-8 #### [facility] CLIA [id number] [address] Nitrite Ql (U) Negative Normal Negative [facility] Comment on above: Order Comment: Speci men Type: BLOOD SPECIMEN [facility] Address: [address] [place] [address] Performed By: #### 5 7021-8 #### [facility] CLIA [id number] [address] OF [place] pH (U) 6.0 [pH] Normal 5.0-8.0 [facility] Comment on above: Order Comment: Speci men Type: BLOOD SPECIMEN [facility] Address: [address] [place] [address] Performed By: #### 5 7021-8 #### [facility] CLIA [id number] [address] Protein (U) [Mass/Vol] Trace Abnormal Negative [facility] Comment on above: Order Comment: Speci men Type: BLOOD SPECIMEN [facility] Address: [address] [place] [address] Performed By: #### 5 7021-8 #### [facility] CLIA [id number] [address] RBC LM.HPF (Urine sed) [#/Area] 0-3 /HPF Normal 0-3 /HPF [facility] Comment on above: Order Comment: Speci men Type: BLOOD SPECIMEN [facility] Address: [address] [place] [address] Performed By: #### 5 7021-8 #### [facility] CLIA [id number] [address] Specific gravity (U) [Rel density] >=1.030 High 1.005-1.030 [facility] Comment on above: Order Comment: Speci men Type: BLOOD SPECIMEN [facility] Address: [address] [place] [address] Performed By: #### 5 7021-8 #### [facility] CLIA [id number] [address] Urobilinogen Ql (U) 1.0 EU/dL Normal 0.2-1.0 EU/dL [facility] Comment on above: Order Comment: Speci men Type: BLOOD SPECIMEN [facility] Address: [address] [place] [address] Performed By: #### 5 7021-8 #### [facility] CLIA [id number] [address] WBC LM.HPF (Urine sed) [#/Area] 0-5 /HPF Normal 0-5 /HPF [facility] Comment on above: Order Comment: Speci men Type: BLOOD SPECIMEN [facility] Address: [address] [place] [address] Performed By: #### 5 7021-8 #### [facility] CLIA [id number] [address] Vit B12 [facility] Cobalamin (Vitamin B12) [Mass/Vol] 455 pg/mL Normal 232-1,245 [facility] Comment on above: Order Comment: Speci men Type: BLOOD SPECIMENOrdering Facility: [facility] Address: [address] [place] [address] Performed By: #### 2 132-9 ####[facility] LABORATORYCLIA [id number] [place] [address] [facility] XR CHEST 1V FRONTAL PORTon 0 03-09-2022 XR CHEST 1V FRONTAL PORT * * *Final Report* * * DATE OF EXAM: Mar 09 2022 4:35AM MDX [id number] - XR CHEST 1V FRONTAL PORT / PROCEDURE REASON: Cough, new onset * * * * Physician Interpretation * * * * EXAMINATION: CHEST RADIOGRAPH (PORTABLE SINGLE VIEW AP) Exam Date/Time: 03/09/2022 4:35 AM CLINICAL HISTORY: Cough, new onset, Fatigue and malaise MQ: XCPR_5 Comparison: 11/03/2015 RESULT: Lines, tubes, and devices: None. Lungs and pleura: No acute lung consolidation. No pleural effusion or pneumothorax. Cardiomediastinal silhouette: Stable cardiomediastinal silhouette. Other: . IMPRESSION: No acute radiographic abnormality. Field Liability Generalist: PSCB Transcribe Date/Time: Mar 09 2022 7:07A Dictated by : Chris TOLENTINO MD This examination was interpreted and the report reviewed and electronically signed by: Chris TOLENTINO MD on Mar 09 2022 7:09AM EST [id number] Normal [facility] Basic Metabolic Panelon 02-07 Calcium [Mass/Vol] 9.1 mg/dL Normal 8.4-10.4 [facility] Comment on above: Performed By: #### H REKHA ALEX ####[facility] [address] [place] [address] Glucose [Mass/Vol] 146 mg/dL High 70-100 [facility] Comment on above: Performed By: #### H REKHA ALEX ####[facility] [address] [place] [address] Urea nitrogen [Mass/Vol] 14 mg/dL Normal 9-20 [facility] Comment on above: Performed By: #### H REKHA ALEX ####[facility] [address] [place], [place] Anion gap [Moles/Vol] 8 mmol/L Normal 3-13 [facility] Comment on above: Performed By: #### H HUGO ALEX3M ####[facility] [place], [place] CO2 [Moles/Vol] 29 mmol/L Normal 22-30 [facility] Comment on above: Performed By: #### Cat ALEX BMP3M ####[place] [id number] [place], [place] Creatinine [Mass/Vol] 0.81 mg/dL Normal 0.52-1.25 [facility] Comment on above: Performed By: #### Cat ALEX BMP3M ####[place] [id number] [place], [place] GFR/1.73 sq M.predicted among blacks MDRD (S/P/Bld) [Vol rate/Area] mL/min/{1.73_m2} Normal >60 [facility] Comment on above: Performed By: #### Cat ALEX BMP3M ####[place] [id number] [place], [place] GFR/1.73 sq M.predicted among non-blacks MDRD (S/P/Bld) [Vol rate/Area] 81.8 mL/min/{1.73_m2} Normal >60 [facility] Comment on above: Result Comment: KDIG O guidelines provide the following GFR categories: Stage GFR(ml/min/1.73 m2) Terms G1 >=90 Normal or high G2 60-89 Mildly decreased* G3a 45-59 Mildly to moderately decreased G3b 30-44 Moderately to severely decreased G4 15-29 Severely decreased G5 <15 Kidney failure *Relative to young adult level. In the absence of evidence of kidney damage, neither GFR category G1 nor G2 fulfill the criteria for CKD. The CKD-EPI equation is validated in individuals 18 years of age and older. Currently the best equation for estimating glomerular filtration rate (GFR) from serum creatinine in children is the Bedside Loomis equation. It is less accurate in patients with extremes of muscle mass, restriction of dietary protein, ingestion of creatine, extra-renal metabolism of creatinine, or treatment with medications that affect renal tubular creatinine secretion. Performed By: #### H ABI BMP3M ####[facility] [place], [place] Potassium [Moles/Vol] 3.9 mmol/L Normal 3.5-5.1 [facility] Comment on above: Performed By: #### H ABI BMP3M ####[facility] [place] [address] Chloride [Moles/Vol] 100 mmol/L Normal 98-107 [facility] Comment on above: Performed By: #### H ABI BMP3M ####[facility] [place], [place] Sodium [Moles/Vol] 136 mmol/L Normal 135-145 [facility] Comment on above: Performed By: #### H ABI BMP3M ####[place] [id number] [place], [place] Basic Metabolic Panel w/ Ref depe to MG 03-05-2022 Anion gap [Moles/Vol] 8 mmol/L 3 - 13 mmol/L [facility] Calcium [Mass/Vol] 9.1 mg/dL 8.4 - 10. 4 mg/dL [facility] Chloride [Moles/Vol] 100 mmol/L 98 - 10 7 mmol/L [facility] CO2 [Moles/Vol] 29 mmol/L 22 - 30 mmol/L [facility] Creatinine [Mass/Vol] 0.81 mg/dL 0.52 - 1.25 mg/dL [facility] EGFR IF NonAfrican [place] 81.8 mL/min >60 [facility] Comment on above: KDIGO guidelines pro vide the following GFR categories: Stage GFR(ml/min/1.73 m2) Terms G1 >=90 Normal or high G2 60-89 Mildly decreased* G3a 45-59 Mildly to moderately decreased G3b 30-44 Moderately to severely decreased G4 15-29 Severely decreased G5 <15 Kidney failure *Relative to young adult level. In the absence of evidence of kidney damage, neither GFR category G1 nor G2 fulfill the criteria for CKD. The CKD-EPI equation is validated in individuals 18 years of age and older. Currently the best equation for estimating glomerular filtration rate (GFR) from serum creatinine in children is the Bedside Loomis equation. It is less accurate in patients with extremes of muscle mass, restriction of dietary protein, ingestion of creatine, extra-renal metabolism of creatinine, or treatment with medications that affect renal tubular creatinine secretion. GFR/1.73 sq M.predicted among blacks MDRD (S/P/Bld) [Vol rate/Area] mL/min/{1.73_m2} >60 mL/min [facility] Glucose [Mass/Vol] 146 mg/dL High 70 - 100 mg/dL [facility] Interpretation and review of laboratory results Abnormal [facility] Potassium [Moles/Vol] 3.9 mmol/L 3.5 - 5.1 mmol/L [facility] Sodium [Moles/Vol] 136 mmol/L 135 - 145 mmol/L [facility] Urea nitrogen (BldV) [Mass/Vol] 14 mg/dL 9 - 20 mg/dL [facility] Test Performed by [address] [id number] [place] [address] LAB [facility] CBCon 03-05-2022 Hematocrit (Bld) [Volume fraction] 37.6 % 35.0 - 47.0 % [facility] Hemoglobin (Bld) [Mass/Vol] 12.3 g/dL 11.7 - 16.0 g/dL [facility] Interpretation and review of laboratory results Abnormal [facility] MCH (RBC) [Entitic mass] 28.7 pg 26.0 - 34.0 pg [facility] MCHC (RBC) [Mass/Vol] 32.7 % 32.0 - 36.0 % [facility] MCV (RBC) [Entitic vol] 87.8 fL 79.0 - 98.0 fL [facility] Platelet distribution width (Bld) [Ratio] 16.9 % High 11.5 - 14.5 % [facility] Platelet mean volume (Bld) [Entitic vol] 8.0 fL 7.4 - 12.4 fL [facility] Comment on above: MPV is a calculated measurement using platelet volume ratio. Platelets (Bld) [#/Vol] 286 10*3/uL 140 - 440 10*3/uL [facility] RBC (Bld) [#/Vol] 4.29 10*6/uL 3.80 - 5.2 0 10*6/uL [facility] WBC (Bld) [#/Vol] 8.9 10*3/uL 3.6 - 10.7 10*3/uL [facility] Test Performed by [address] [address] [facility] COVID-19, Antigenon 03-05-20 SARS-CoV-2 Nucleocapsid Antigen Negative Negative [facility] Comment on above: A negative result does not rule out the possibility of SARS-CoV-2 infection. NAAT-based methods should be considered for symptomatic patients presenting greater than seven days after onset of symptoms. Method: Lateral flow immunoassay. Fact sheets for healthcare providers and patients can be found at the following sites: https://www.fda.gov/media/901187/download https://www.Nuritas.gov/media/486414/download Test Performed by [facility], [address] [place] [address] [facility] Hemogramon 03-05-2022 Erythrocyte distribution width (RBC) [Ratio] 16.9 % High 11.5-14.5 [facility] Comment on above: Performed By: #### H ABI BMP3M ####[facility] [address] [place], [place] Hematocrit (Bld) [Volume fraction] 37.6 % Normal 35.0-47.0 [facility] Comment on above: Performed By: #### H MARY ANNG BMP3M ####[facility] [address] [place] [address] Hemoglobin (Bld) [Mass/Vol] 12.3 g/dL Normal 11.7-16.0 [facility] Comment on above: Performed By: #### H ABI BMP3M ####[facility] [address] [place] [address] MCH (RBC) [Entitic mass] 28.7 pg Normal 26.0-34.0 [facility] Comment on above: Performed By: #### H EMOAlix BMP3M ####[facility] [address] [place] [address] MCHC 32.7 % Normal 32.0-36.0 [facility] Comment on above: Performed By: #### Cat HUGO ALEX3M ####[address] [place], [place] MCV (RBC) [Entitic vol] 87.8 fL Normal 79.0-98.0 [facility] Comment on above: Performed By: #### Cat HUGO ALEX3M ####[id number] [place], [place] Platelet mean volume (Bld) [Entitic vol] 8.0 fL Normal 7.4-12.4 [facility] Comment on above: Result Comment: MPV is a calculated measurement using platelet volume ratio. Performed By: #### HUGO PARIS3M ####[id number] [place], [place] Platelets (Bld) [#/Vol] 286 10*3/uL Normal 140-440 [facility] Comment on above: Performed By: #### HUGO PARIS3M ####[id number] [place], [place] RBC (Bld) [#/Vol] 4.29 10*6/uL Normal 3.80-5.20 [facility] Comment on above: Performed By: #### HUGO PARIS3M ####[id number] [place], [place] WBC (Bld) [#/Vol] 8.9 10*3/uL Normal 3.6-10.7 [facility] Comment on above: Performed By: #### HUGO PARIS3M ####[address] [place], [place] SARS-CoV-2 Antigenon 022 SARS-CoV-2 Antigen Negative Normal Negative [facility] Comment on above: Result Comment: A negative result does not rule out the possibility of SARS-CoV-2 infection. NAAT-based methods should be considered for symptomatic patients presenting greater than seven days after onset of symptoms. Method: Lateral flow immunoassay. Fact sheets for healthcare providers and patients can be found at the following sites: https://www.fda.gov/media/801763/download https://www.fda.gov/media/182664/download Performed By: #### C OVAG #### [facility] [address] [address] VL LOWER EXTREMITY BILATERAL VENOUS DUPLEXon 03-05-2022 [facility] -- Lower Extremity Venous Duplex Report Patient Chapin, : 1965 Study 03/04/2022 Name: Bradley Schwartz (56yrs) Date: Patient [id number] Age: 56 Account: [id number] ID: Gender: F Loc: 1322 BP: Ordering Physician: Hannah Lucas Bindery Machine Setter: Nida Mann RVT Interpreting Physician: Russell Blankenship MD -- Location: [facility] -- Indications: Edema right entire leg. Edema left entire leg. -- Conclusions 1. There is no evidence of acute deep or superficial venous thrombosis noted in the right lower extremity. 2. There is no evidence of acute deep or superficial venous thrombosis noted in the left lower extremity. -- History: Risk factors: Obese. Age over 50 years. -- Study data: Complete lower extremity venous duplex evaluation. Grayscale 2D imaging, color Doppler imaging, and spectral Doppler analysis. Location: Vascular laboratory. Procedure: A vascular evaluation was performed with the patient in the supine position. Images were obtained using a [employer] vascular ultrasound machine. The study was technically limited due to obesity and edema. Study was performed by Nicanor Milelr RDMS, under the supervision of Jane Mann RVT. -- Venous flow and imaging: + +--- ----+ ---+ -+ +Location +Overall+Properties +Comments + + +--- ----+ ---+ -+ +R CFV +Patent +Normal phasicity; + + + + +spontaneous; normal + + + + +augmentation; + + + + +compressible + + + +--- ----+ ---+ -+ +R saphenofemoral +Patent +Compressible + + +junction + + + + + +--- ----+ ---+ -+ +R profunda femoral+Patent + + + + +--- ----+ ---+ -+ +R FV - prox. +Patent +Compressible + + + +--- ----+ ---+ -+ +R FV - mid +Patent +Normal phasicity; + + + + +spontaneous; normal + + + + +augmentation; + + + + +compressible + + + +--- ----+ ---+ -+ +R FV - distal +Patent +Compressible + + + +--- ----+ ---+ -+ +R popliteal +Patent +Normal phasicity; + + + + +spontaneous; normal + + + + +augmentation; + + + + +compressible + + + +--- ----+ ---+ -+ +R gastrocnemius +Patent +Compressible + + + +--- ----+ ---+ -+ +R PTV +Patent +Compressible +Visualized in + + + + +segments due to body+ + + + +habitus. + + +--- ----+ ---+ -+ +R peroneal +Patent +Compressible +Visualized in + + + + +segments due to body+ + + + +habitus. + + +--- ----+ ---+ -+ +R soleal +Patent +Compressible +Visualized in + + + + +segments due to body+ + + + +habitus. + + +--- ----+ ---+ -+ +R GS (more content not included)... [facility] Russell Blankenship MD - 03/05/2022 [facility] -- Lower Extremity Venous Duplex Report Patient Chapin : 1965 Study 03/04/2022 Name: Bradley Schwartz (56yrs) Date: Patient [id number] Age: 56 Account: [id number] ID: Gender: F Loc: 1322 BP: Ordering Physician: Hannah Lucas Bindery Machine Setter: Nida Mann RVT Interpreting Physician: Russell Blankenship MD -- Location: [facility] -- Indications: Edema right entire leg. Edema left entire leg. -- Conclusions 1. There is no evidence of acute deep or superficial venous thrombosis noted in the right lower extremity. 2. There is no evidence of acute deep or superficial venous thrombosis noted in the left lower extremity. -- History: Risk factors: Obese. Age over 50 years. -- Study data: Complete lower extremity venous duplex evaluation. Grayscale 2D imaging, color Doppler imaging, and spectral Doppler analysis. Location: Vascular laboratory. Procedure: A vascular evaluation was performed with the patient in the supine position. Images were obtained using a [employer] vascular ultrasound machine. The study was technically limited due to obesity and edema. Study was performed by Nicanor Miller RDMS, under the supervision of Jane Mann RVT. -- Venous flow and imaging: + +--- ----+ ---+ -+ +Location +Overall+Properties +Comments + + +--- ----+ ---+ -+ +R CFV +Patent +Normal phasicity; + + + + +spontaneous; normal + + + + +augmentation; + + + + +compressible + + + +--- ----+ ---+ -+ +R saphenofemoral +Patent +Compressible + + +junction + + + + + +--- ----+ ---+ -+ +R profunda femoral+Patent + + + + +--- ----+ ---+ -+ +R FV - prox. +Patent +Compressible + + + +--- ----+ ---+ -+ +R FV - mid +Patent +Normal phasicity; + + + + +spontaneous; normal + + + + +augmentation; + + + + +compressible + + + +--- ----+ ---+ -+ +R FV - distal +Patent +Compressible + + + +--- ----+ ---+ -+ +R popliteal +Patent +Normal phasicity; + + + + +spontaneous; normal + + + + +augmentation; + + + + +compressible + + + +--- ----+ ---+ -+ +R gastrocnemius +Patent +Compressible + + + +--- ----+ ---+ -+ +R PTV +Patent +Compressible +Visualized in + + + + +segments due to body+ + + + +habitus. + + +--- ----+ ---+ -+ +R peroneal +Patent +Compressible +Visualized in + + + + +segments due to body+ + + + +habitus. + + +--- ----+ ---+ -+ +R soleal +Patent +Compressible +Visualized in + + + + +segments due to body+ + + + +habitus. + + +--- ----+ ---+ -+ +R GSV +Patent +Compressible + + + +--- ----+ ---+ -+ +L CFV +Patent +Normal phasicity; + + + + +spontaneous; normal + + + + +augmentation; + + + + +compressible + + + +--- ----+ ---+ -+ +L saphenofemoral +Patent +Compressible + + +junction + + + + + +--- ----+ ---+ -+ +L profunda femoral+Patent + + + + +--- ----+ ---+ -+ +L FV - prox. +Patent +Compressible + + + +--- ----+ ---+ -+ +L FV - mid +Patent +Normal phasicity; + + + + +spontaneous; normal + + + + +augmentation; + + + + +compressible + + + +--- ----+ ---+ (more content not included)... [facility] Work Phone: [facility] Work Phone: Basic Metabolic Panelon 06-2 -2021 Anion gap [Moles/Vol] 9 mmol/L Normal 3-13 [facility] Comment on above: Performed By: #### HUGO PARIS3M ####[email or web address] [place] [address] Calcium [Mass/Vol] 9.0 mg/dL Normal 8.4-10.4 [facility] Comment on above: Performed By: #### Cat ALEX BMP3M ####[email or web address] [place] [address] CO2 [Moles/Vol] 26 mmol/L Normal 22-30 [facility] Comment on above: Performed By: #### Cat ALEX BMP3M ####[email or web address] [place] [address] Creatinine [Mass/Vol] 0.77 mg/dL Normal 0.52-1.25 [facility] Comment on above: Performed By: #### Cat ALEX BMP3M ####[email or web address] [place] [address] GFR/1.73 sq M.predicted among blacks MDRD (S/P/Bld) [Vol rate/Area] mL/min/{1.73_m2} Normal >60 [facility] Comment on above: Performed By: #### Cat ALEX BMP3M ####[email or web address] [place] [address] GFR/1.73 sq M.predicted among non-blacks MDRD (S/P/Bld) [Vol rate/Area] 87.0 mL/min/{1.73_m2} Normal >60 [facility] Comment on above: Result Comment: KDIG O guidelines provide the following GFR categories: Stage GFR(ml/min/1.73 m2) Terms G1 >=90 Normal or high G2 60-89 Mildly decreased* G3a 45-59 Mildly to moderately decreased G3b 30-44 Moderately to severely decreased G4 15-29 Severely decreased G5 <15 Kidney failure *Relative to young adult level. In the absence of evidence of kidney damage, neither GFR category G1 nor G2 fulfill the criteria for CKD. The CKD-EPI equation is validated in individuals 18 years of age and older. Currently the best equation for estimating glomerular filtration rate (GFR) from serum creatinine in children is the Bedside Loomis equation. It is less accurate in patients with extremes of muscle mass, restriction of dietary protein, ingestion of creatine, extra-renal metabolism of creatinine, or treatment with medications that affect renal tubular creatinine secretion. Performed By: #### H HUGO ALEX3M ####[address] [place], [place] Glucose [Mass/Vol] 127 mg/dL High 70-100 [facility] Comment on above: Performed By: #### H HUGO ALEX3M ####[id number] [place], [place] Urea nitrogen [Mass/Vol] 13 mg/dL Normal 9-20 [facility] Comment on above: Performed By: #### H HUGO ALEX3M ####[address] [place], [place] Chloride [Moles/Vol] 100 mmol/L Normal 98-107 [facility] Comment on above: Performed By: #### H HUGO ALEX3M ####[address] [place], [place] Potassium [Moles/Vol] 3.9 mmol/L Normal 3.5-5.1 [facility] Comment on above: Performed By: #### HUGO PARIS3M ####[address] [place], [place] Sodium [Moles/Vol] 136 mmol/L Normal 135-145 [facility] Comment on above: Performed By: #### H [facility] ####[address] [place] [address] Basic Metabolic Panel w/ Ref deep to MGon 03-04-2022 Anion gap [Moles/Vol] 9 mmol/L 3 - 13 mmol/L [facility] Calcium [Mass/Vol] 9.0 mg/dL 8.4 - 10. 4 mg/dL [facility] Chloride [Moles/Vol] 100 mmol/L 98 - 10 7 mmol/L [facility] CO2 [Moles/Vol] 26 mmol/L 22 - 30 mmol/L [facility] Creatinine [Mass/Vol] 0.77 mg/dL 0.52 - 1.25 mg/dL [facility] EGFR IF NonAfrican Bhutanese 87.0 mL/min >60 [facility] Comment on above: KDIGO guidelines pro vide the following GFR categories: Stage GFR(ml/min/1.73 m2) Terms G1 >=90 Normal or high G2 60-89 Mildly decreased* G3a 45-59 Mildly to moderately decreased G3b 30-44 Moderately to severely decreased G4 15-29 Severely decreased G5 <15 Kidney failure *Relative to young adult level. In the absence of evidence of kidney damage, neither GFR category G1 nor G2 fulfill the criteria for CKD. The CKD-EPI equation is validated in individuals 18 years of age and older. Currently the best equation for estimating glomerular filtration rate (GFR) from serum creatinine in children is the Bedside Loomis equation. It is less accurate in patients with extremes of muscle mass, restriction of dietary protein, ingestion of creatine, extra-renal metabolism of creatinine, or treatment with medications that affect renal tubular creatinine secretion. GFR/1.73 sq M.predicted among blacks MDRD (S/P/Bld) [Vol rate/Area] mL/min/{1.73_m2} >60 mL/min [facility] Glucose [Mass/Vol] 127 mg/dL High 70 - 100 mg/dL [facility] Interpretation and review of laboratory results Abnormal [facility] Potassium [Moles/Vol] 3.9 mmol/L 3.5 - 5.1 mmol/L [facility] Sodium [Moles/Vol] 136 mmol/L 135 - 145 mmol/L [facility] Urea nitrogen (BldV) [Mass/Vol] 13 mg/dL 9 - 20 mg/dL [facility] Test Performed by [facility], [address] [place] [address] [facility] CBCon 03-04-2022 Hematocrit (Bld) [Volume fraction] 38.0 % 35.0 - 47.0 % [facility] Hemoglobin (Bld) [Mass/Vol] 12.4 g/dL 11.7 - 16.0 g/dL [facility] Interpretation and review of laboratory results Abnormal [facility] MCH (RBC) [Entitic mass] 28.8 pg 26.0 - 34.0 pg [facility] MCHC (RBC) [Mass/Vol] 32.7 % 32.0 - 36.0 % [facility] MCV (RBC) [Entitic vol] 88.2 fL 79.0 - 98.0 fL [facility] Platelet distribution width (Bld) [Ratio] 17.3 % High 11.5 - 14.5 % [facility] Platelet mean volume (Bld) [Entitic vol] 8.3 fL 7.4 - 12.4 fL [facility] Comment on above: MPV is a calculated measurement using platelet volume ratio. Platelets (Bld) [#/Vol] 262 10*3/uL 140 - 440 10*3/uL [facility] RBC (Bld) [#/Vol] 4.30 10*6/uL 3.80 - 5.2 0 10*6/uL [facility] WBC (Bld) [#/Vol] 12.5 10*3/uL High 3.6 - 10.7 10*3/uL [facility] Test Performed by [facility], [address] [place] [address] [facility] Hemogramon 03-04-2022 Erythrocyte distribution width (RBC) [Ratio] 17.3 % High 11.5-14.5 [facility] Comment on above: Performed By: #### H REKHA ALEX ####[address] [place] [address] Hematocrit (Bld) [Volume fraction] 38.0 % Normal 35.0-47.0 [facility] Comment on above: Performed By: #### H REKHA ALEX ####[address] [place], [place] Hemoglobin (Bld) [Mass/Vol] 12.4 g/dL Normal 11.7-16.0 [facility] Comment on above: Performed By: #### HUGO PARIS3M ####[address] [place], [place] MCH (RBC) [Entitic mass] 28.8 pg Normal 26.0-34.0 [facility] Comment on above: Performed By: #### Cat ALEX BMP3M ####[address] MCHC 32.7 % Normal 32.0-36.0 [facility] Comment on above: Performed By: #### HUGO PARIS3M ####[address] MCV (RBC) [Entitic vol] 88.2 fL Normal 79.0-98.0 [facility] Comment on above: Performed By: #### Cat ALEX BMP3M ####[address] Platelet mean volume (Bld) [Entitic vol] 8.3 fL Normal 7.4-12.4 [facility] Comment on above: Result Comment: MPV is a calculated measurement using platelet volume ratio. Performed By: #### Cat ALEX BMP3M ####[address] Platelets (Bld) [#/Vol] 262 10*3/uL Normal 140-440 [facility] Comment on above: Performed By: #### Cat ALEX BMP3M ####[address] RBC (Bld) [#/Vol] 4.30 10*6/uL Normal 3.80-5.20 [facility] Comment on above: Performed By: #### Cat ALEX BMP3M ####[address] WBC (Bld) [#/Vol] 12.5 10*3/uL High 3.6-10.7 [facility] Comment on above: Performed By: #### H [facility] ####[address] [place] [address] MRI BRAIN W WO CONTRASTon Patient Name: BRADLEY MATOS [facility] ACCESSION EXAM DATE/TIME PROCEDURE ORDERING PROVIDER [id number] 03/04/2022 12:55 EDT MRI Brain w/ + w/o EGRARDO LUCAS, HANNAH Cody Contrast CPT code 85509 Reason For Exam (MRI Brain w/ + w/o Contrast) gait imbalance, concern for corpus collosum lesion vs stroke. Needs contrasted image Report Indication: Infarct versus neoplasm. Gait imbalance. MRI of the brain with and without contrast. 15 mL of Gadavist utilized. Images included T1-weighted axial, T2 weighted gradient echo, and postcontrast images in axial, coronal and sagittal planes. COMPARISON: MRI examination dated 03/03/2022. Postcontrast images show no abnormal enhancement of the brain or meninges. There is no enhancement to correspond to the area of restricted diffusion on the right side of the corpus callosum on the recent MRI examination. No enhancing lesions are shown in the cerebral or cerebellar hemispheres. No evidence of intracranial hemorrhage. IMPRESSION: No enhancement of the area of restricted in the superior aspect of the right cerebral hemisphere. Findings are consistent with a recent ischemic event. No enhancement of brain or meninges to indicate intracranial malignancy or metastatic disease. Report Dictated on --- Final --- Dictated: 03/04/2022 1:55 pm Dictating Physician: MD ORTIZ LAURA Signed Date and Time: 03/04/2022 2:00 pm Signed by: MD ORTIZ LAURA Transcribed Date and Time: 03/04/2022 1:55 [facility] Donna Richard MD - 03/04/2022 Patient Name: BRADLEY MATOS [facility] ACCESSION EXAM DATE/TIME PROCEDURE ORDERING PROVIDER [id number] 03/04/2022 12:55 EDT MRI Brain w/ + w/o GERARDO LUCAS, HANNAH Cody Contrast CPT code 86939 Reason For Exam (MRI Brain w/ + w/o Contrast) gait imbalance, concern for corpus collosum lesion vs stroke. Needs contrasted image Report Indication: Infarct versus neoplasm. Gait imbalance. MRI of the brain with and without contrast. 15 mL of Gadavist utilized. Images included T1-weighted axial, T2 weighted gradient echo, and postcontrast images in axial, coronal and sagittal planes. COMPARISON: MRI examination dated 03/03/2022. Postcontrast images show no abnormal enhancement of the brain or meninges. There is no enhancement to correspond to the area of restricted diffusion on the right side of the corpus callosum on the recent MRI examination. No enhancing lesions are shown in the cerebral or cerebellar hemispheres. No evidence of intracranial hemorrhage. IMPRESSION: No enhancement of the area of restricted in the superior aspect of the right cerebral hemisphere. Findings are consistent with a recent ischemic event. No enhancement of brain or meninges to indicate intracranial malignancy or metastatic disease. Report Dictated on --- Final --- Dictated: 03/04/2022 1:55 pm Dictating Physician: MD ORTIZ LAURA Signed Date and Time: 03/04/2022 2:00 pm Signed by: MD ORTIZ LAURA Transcribed Date and Time: 03/04/2022 1:55 [facility] Work Phone: MRI BRAIN W WO CONTRASTOrder ed By: Donna Ortiz on 03-04-2022 [facility] Work Phone: MRI Brain w/ + w/o Contrasto n 03-04-2022 MRI Brain w/ + w/o Contrast [facility]: [id number] ACCESSION EXAM DATE/TIME PROCEDURE ORDERING PROVIDER [id number] 03/04/2022 12:55 EDT MRI Brain w/ + w/o GERARDO LUCAS, HANNAH Cody Contrast CPT code 08297 Reason For Exam (MRI Brain w/ + w/o Contrast) gait imbalance, concern for corpus collosum lesion vs stroke. Needs contrasted image Report Indication: Infarct versus neoplasm. Gait imbalance. MRI of the brain with and without contrast. 15 mL of Gadavist utilized. Images included T1-weighted axial, T2 weighted gradient echo, and postcontrast images in axial, coronal and sagittal planes. COMPARISON: MRI examination dated 03/03/2022. Postcontrast images show no abnormal enhancement of the brain or meninges. There is no enhancement to correspond to the area of restricted diffusion on the right side of the corpus callosum on the recent MRI examination. No enhancing lesions are shown in the cerebral or cerebellar hemispheres. No evidence of intracranial hemorrhage. IMPRESSION: No enhancement of the area of restricted in the superior aspect of the right cerebral hemisphere. Findings are consistent with a recent ischemic event. No enhancement of brain or meninges to indicate intracranial malignancy or metastatic disease. Report Dictated on Final Dictated: 03/04/2022 1:55 pm Dictating Physician: MD ORTIZ LAURA Signed Date and Time: 03/04/2022 2:00 pm Signed by: MD ORTIZ LAURA Transcribed Date and Time: 03/04/2022 1:55 Normal [facility] MRI CERVICAL SPINE W ТАТЬЯНА [place] 03-04-2022 Patient Name: BRADLEY MATOS [facility] ACCESSION EXAM DATE/TIME PROCEDURE ORDERING PROVIDER [id number] 03/04/2022 12:55 EDT MRI Spine Cervical w/ + GERARDO LUCAS REBECCA K. w/o Contrast CPT code 83378 Reason For Exam (MRI Spine Cervical w/ + w/o Contrast) gait imbalance Report MRI CERVICAL SPINE: CLINICAL INDICATION: Weakness and gait imbalance. TECHNIQUE: Sagittal T1 and fast T2 and transaxial gradient echo and fast T2 weighted sequence along with sagittal STIR sequences were performed through the cervical spine COMPARISON: Correlation is made to CT cervical spine 09/02/2012 FINDINGS: Limitations: Patient motion artifact. Patient was unable to complete examination due to nausea and intravenous contrast was not administered. Osseous structures/intervertebr al discs: Vertebral body heights are maintained. Trace retrolisthesis of C4 over C5 and C5 over C6. Mild multilevel degenerative disc disease manifested predominantly by loss of disc signal and endplate osteophyte formation. Spinal canal: Allowing for limitations due to motion artifact, the visualized cord is normal in signal and caliber. The cerebellar tonsils terminate above the level of the foramen magnum. Surrounding soft tissues: Within normal limits. Level by level analysis: C2-C3: No significant disc herniation, spinal stenosis, or foraminal narrowing. C3-C4: No significant disc herniation or spinal stenosis. Relatively mild degenerative uncovertebral and facet hypertrophy with mild left and no significant right foraminal narrowing. C4-C5: Small disc osteophyte complex with mild spinal stenosis. Degenerative uncovertebral and facet hypertrophy with moderate left and mild right femoral narrowing. C5-C6: Disc osteophyte complex with superimposed broad-based disc protrusion slightly indents the ventral thecal sac contributing to mild to moderate spinal stenosis. Degenerative uncovertebral and facet Magnetic Resonance Imaging Report hypertrophy with severe left and moderate right foraminal narrowing. C6-C7: Minimal disc osteophyte complex without significant spinal stenosis. Mild degenerative uncovertebral and facet hypertrophy with mild right and no significant left foraminal narrowing. C7-T1: Minimal disc osteophyte complex without significant spinal stenosis. Degenerative uncovertebral and facet hypertrophy with mild right greater than left foraminal narrowing. IMPRESSION: 1. Limited by patient motion artifact. Additionally patient was unable to complete examination due to nausea and intravenous contrast was not administered. 2. Mild degenerative spondylosis leading to varying degrees of spinal stenosis and foraminal narrowing most pronounced at C5-C6 where there is mild to moderate spinal stenosis with severe left and moderate right foraminal narrowing. Please see level by level analysis. Report Dictated on --- Final --- Dictated: 03/04/2022 3:00 pm Dictating Physician: MD CHAMBERLAIN VLADIMIR Signed Date and Time: 03/04/2022 3:17 pm Signed by: MD CHAMBERLAIN VLADIMIR Transcribed Date and Time: 03/04/2022 3:00 [facility] NOAH Huerta, Unknown Provider - 03/04/2022 Patient Name: BRADLEY MATOS Magnetic Resonance Imaging ACCESSION EXAM DATE/TIME PROCEDURE ORDERING PROVIDER [id number] 03/04/2022 12:55 EDT MRI Spine Cervical w/ + GERARDO LUCAS, HANNAH Cody w/o Contrast CPT code 60999 Reason For Exam (MRI Spine Cervical w/ + w/o Contrast) gait imbalance Report MRI CERVICAL SPINE: CLINICAL INDICATION: Weakness and gait imbalance. TECHNIQUE: Sagittal T1 and fast T2 and transaxial gradient echo and fast T2 weighted sequence along with sagittal STIR sequences were performed through the cervical spine COMPARISON: Correlation is made to CT cervical spine 09/02/2012 FINDINGS: Limitations: Patient motion artifact. Patient was unable to complete examination due to nausea and intravenous contrast was not administered. Osseous structures/intervertebr al discs: Vertebral body heights are maintained. Trace retrolisthesis of C4 over C5 and C5 over C6. Mild multilevel degenerative disc disease manifested predominantly by loss of disc signal and endplate osteophyte formation. Spinal canal: Allowing for limitations due to motion artifact, the visualized cord is normal in signal and caliber. The cerebellar tonsils terminate above the level of the foramen magnum. Surrounding soft tissues: Within normal limits. Level by level analysis: C2-C3: No significant disc herniation, spinal stenosis, or foraminal narrowing. C3-C4: No significant disc herniation or spinal stenosis. Relatively mild degenerative uncovertebral and facet hypertrophy with mild left and no significant right foraminal narrowing. C4-C5: Small disc osteophyte complex with mild spinal stenosis. Degenerative uncovertebral and facet hypertrophy with moderate left and mild right femoral narrowing. C5-C6: Disc osteophyte complex with superimposed broad-based disc protrusion slightly indents the ventral thecal sac contributing to mild to moderate spinal stenosis. Degenerative uncovertebral and facet Magnetic Resonance Imaging Report hypertrophy with severe left and moderate right foraminal narrowing. C6-C7: Minimal disc osteophyte complex without significant spinal stenosis. Mild degenerative uncovertebral and facet hypertrophy with mild right and no significant left foraminal narrowing. C7-T1: Minimal disc osteophyte complex without significant spinal stenosis. Degenerative uncovertebral and facet hypertrophy with mild right greater than left foraminal narrowing. IMPRESSION: 1. Limited by patient motion artifact. Additionally patient was unable to complete examination due to nausea and intravenous contrast was not administered. 2. Mild degenerative spondylosis leading to varying degrees of spinal stenosis and foraminal narrowing most pronounced at C5-C6 where there is mild to moderate spinal stenosis with severe left and moderate right foraminal narrowing. Please see level by level analysis. Report Dictated on --- Final --- Dictated: 03/04/2022 3:00 pm Dictating Physician: MD CHAMBERLAIN VLADIMIR Signed Date and Time: 03/04/2022 3:17 pm Signed by: MD CHAMBERLAIN VLADIMIR Transcribed Date and Time: 03/04/2022 3:00 [facility] Work Phone: MRI CERVICAL SPINE W WO CONT RASTOrdered By: Unknown Result on 03-04-2022 [facility] MRI Spine Cervical w/ + w/o Contraston 03-04-2022 MRI Spine Cervical w/ + w/o Contrast Patient Name: BRADLEY MATOS Magnetic Resonance Imaging ACCESSION EXAM DATE/TIME PROCEDURE ORDERING PROVIDER [id number] 03/04/2022 12:55 EDT MRI Spine Cervical w/ + GERARDO LUCAS, HANNAH Cody w/o Contrast CPT code 92475 Reason For Exam (MRI Spine Cervical w/ + w/o Contrast) gait imbalance Report MRI CERVICAL SPINE: CLINICAL INDICATION: Weakness and gait imbalance. TECHNIQUE: Sagittal T1 and fast T2 and transaxial gradient echo and fast T2 weighted sequence along with sagittal STIR sequences were performed through the cervical spine COMPARISON: Correlation is made to CT cervical spine 09/02/2012 FINDINGS: Limitations: Patient motion artifact. Patient was unable to complete examination due to nausea and intravenous contrast was not administered. Osseous structures/intervertebr al discs: Vertebral body heights are maintained. Trace retrolisthesis of C4 over C5 and C5 over C6. Mild multilevel degenerative disc disease manifested predominantly by loss of disc signal and endplate osteophyte formation. Spinal canal: Allowing for limitations due to motion artifact, the visualized cord is normal in signal and caliber. The cerebellar tonsils terminate above the level of the foramen magnum. Surrounding soft tissues: Within normal limits. Level by level analysis: C2-C3: No significant disc herniation, spinal stenosis, or foraminal narrowing. C3-C4: No significant disc herniation or spinal stenosis. Relatively mild degenerative uncovertebral and facet hypertrophy with mild left and no significant right foraminal narrowing. C4-C5: Small disc osteophyte complex with mild spinal stenosis. Degenerative uncovertebral and facet hypertrophy with moderate left and mild right femoral narrowing. C5-C6: Disc osteophyte complex with superimposed broad-based disc protrusion slightly indents the ventral thecal sac contributing to mild to moderate spinal stenosis. Degenerative uncovertebral and facet Magnetic Resonance Imaging Report hypertrophy with severe left and moderate right foraminal narrowing. C6-C7: Minimal disc osteophyte complex without significant spinal stenosis. Mild degenerative uncovertebral and facet hypertrophy with mild right and no significant left foraminal narrowing. C7-T1: Minimal disc osteophyte complex without significant spinal stenosis. Degenerative uncovertebral and facet hypertrophy with mild right greater than left foraminal narrowing. IMPRESSION: 1. Limited by patient motion artifact. Additionally patient was unable to complete examination due to nausea and intravenous contrast was not administered. 2. Mild degenerative spondylosis leading to varying degrees of spinal stenosis and foraminal narrowing most pronounced at C5-C6 where there is mild to moderate spinal stenosis with severe left and moderate right foraminal narrowing. Please see level by level analysis. Report Dictated on Final Dictated: 03/04/2022 3:00 pm Dictating Physician: MD CHAMBERLAIN VLADIMIR Signed Date and Time: 03/04/2022 3:17 pm Signed by: MD CHAMBERLAIN VLADIMIR Transcribed Date and Time: 03/04/2022 3:00 Normal [facility] No Panel Informationon 03-04 Radiology Study observation (narrative) [facility] Work Phone: CAROTID BILATERALon 03-04 [facility] [place] [facility] -- Carotid Duplex Report Patient Chapin : 1965 Study 03/04/2022 Name: Bradley Schwartz (56yrs) Date: Patient Age: 56 Account: [id number] ID: Gender: F Loc: 1322 BP: Ordering Physician: Nida Holliday Bindery Machine Setter: Britney Levi RVT Interpreting Physician: Russell Blankenship MD -- Location: [facility] -- Indications: Stroke, MRA neck inconclusive. -- Conclusions 1. Mild carotid disease present with less than 50% stenosis involving the right internal carotid artery. 2. Mild carotid disease present with less than 50% stenosis involving the left internal carotid artery. 3. Normal antegrade flow involving the right vertebral artery. 4. Normal antegrade flow involving the left vertebral artery. -- History: Risk factors: Nonsmoker. Hypertension. Morbidly obese. Immobility. -- Study data: Complete carotid duplex study. Grayscale 2D imaging, color Doppler imaging, and spectral Doppler analysis. Location: Vascular laboratory. Procedure: A vascular evaluation was performed with the patient in the supine position. Images were obtained using a [employer] vascular ultrasound machine. -- Findings Carotid/vertebral arteries: Right common carotid: The vessel has minimal and mixed plaque. Right internal carotid: The vessel has minimal and mixed plaque. Right external carotid: The vessel has minimal and smooth plaque. Left common carotid: The vessel has minimal and smooth plaque. Left internal carotid: The vessel is tortuous; it has minimal and calcified plaque. Left external carotid: The vessel has minimal and smooth plaque. -- Arterial flow: + +------- ----+ +------ --------+ +Location +PSV(cm/sec)+EDV(cm/sec )+Flow analysis + + +------- ----+ +------ --------+ +R CCA , prox +75 +16 + + + +------- ----+ +------ --------+ +R CCA , mid +72 +16 + + + +------- ----+ +------ --------+ +R CCA , distal+77 +18 + + + +------- ----+ +------ --------+ +R ICA , prox +56 +14 + + + +------- ----+ +------ --------+ +R ICA , mid +84 +27 + + + +------- ----+ +------ --------+ +R ICA , distal+70 +27 + + + +------- ----+ +------ --------+ +R ECA +152 +8 + + + +------- ----+ +------ --------+ +R vertebral +68 +17 +Antegrade flow+ + +------- ----+ +------ --------+ +R subclavian +80 +4 + + + +------- ----+ +------ --------+ +L CCA , prox +110 +23 + + + +------- ----+ +------ --------+ +L CCA , mid +94 +23 + + + +------- ----+ +------ --------+ +L CCA , distal+83 +23 + + + +------- ----+ +------ --------+ +L ICA , prox +64 +21 + + + +------- ----+ +------ --------+ +L ICA , mid +60 +18 + + + +------- ----+ +------ --------+ +L ICA , distal+87 +32 + + + +------- ----+ +------ --------+ +L ECA +129 +11 + + + +------- ----+ +------ --------+ +L vertebral +79 +25 +Antegrade flow+ + +------- ----+ +------ --------+ +L subclavian +120 +12 + + + +------- ----+ +------ --------+ Velocity ratios: + -+-----+-----+ + +R PSV+L PSV+ + -+-----+-----+ +Max ICA / Mid CCA Ratio+1.17 +0.93 + + -+-----+-----+ Prepared and electronically signed by Russell Blankenship MD 03/04/2022 11:59 [facility] CARDIOLOGY Russell Blankenship MD - 03/04/2022 [facility] -- Carotid Duplex Report Patient Chapin, : 1965 Study 03/04/2022 Name: Bradley Schwartz (56yrs) Date: Patient [id number] Age: 56 Account: [id number] ID: Gender: F Loc: 1322 BP: Ordering Physician: Nida Holliday Bindery Machine Setter: Britney Levi RVT Interpreting Physician: Russell Blankenship MD -- Location: [facility] -- Indications: Stroke, MRA neck inconclusive. -- Conclusions 1. Mild carotid disease present with less than 50% stenosis involving the right internal carotid artery. 2. Mild carotid disease present with less than 50% stenosis involving the left internal carotid artery. 3. Normal antegrade flow involving the right vertebral artery. 4. Normal antegrade flow involving the left vertebral artery. -- History: Risk factors: Nonsmoker. Hypertension. Morbidly obese. Immobility. -- Study data: Complete carotid duplex study. Grayscale 2D imaging, color Doppler imaging, and spectral Doppler analysis. Location: Vascular laboratory. Procedure: A vascular evaluation was performed with the patient in the supine position. Images were obtained using a [employer] vascular ultrasound machine. -- Findings Carotid/vertebral arteries: Right common carotid: The vessel has minimal and mixed plaque. Right internal carotid: The vessel has minimal and mixed plaque. Right external carotid: The vessel has minimal and smooth plaque. Left common carotid: The vessel has minimal and smooth plaque. Left internal carotid: The vessel is tortuous; it has minimal and calcified plaque. Left external carotid: The vessel has minimal and smooth plaque. -- Arterial flow: + +------- ----+ +------ --------+ +Location +PSV(cm/sec)+EDV(cm/sec )+Flow analysis + + +------- ----+ +------ --------+ +R CCA , prox +75 +16 + + + +------- ----+ +------ --------+ +R CCA , mid +72 +16 + + + +------- ----+ +------ --------+ +R CCA , distal+77 +18 + + + +------- ----+ +------ --------+ +R ICA , prox +56 +14 + + + +------- ----+ +------ --------+ +R ICA , mid +84 +27 + + + +------- ----+ +------ --------+ +R ICA , distal+70 +27 + + + +------- ----+ +------ --------+ +R ECA +152 +8 + + + +------- ----+ +------ --------+ +R vertebral +68 +17 +Antegrade flow+ + +------- ----+ +------ --------+ +R subclavian +80 +4 + + + +------- ----+ +------ --------+ +L CCA , prox +110 +23 + + + +------- ----+ +------ --------+ +L CCA , mid +94 +23 + + + +------- ----+ +------ --------+ +L CCA , distal+83 +23 + + + +------- ----+ +------ --------+ +L ICA , prox +64 +21 + + + +------- ----+ +------ --------+ +L ICA , mid +60 +18 + + + +------- ----+ +------ --------+ +L ICA , distal+87 +32 + + + +------- ----+ +------ --------+ +L ECA +129 +11 + + + +------- ----+ +------ --------+ +L vertebral +79 +25 +Antegrade flow+ + +------- ----+ +------ --------+ +L subclavian +120 +12 + + + +------- ----+ +------ --------+ Velocity ratios: + -+-----+-----+ + +R PSV+L PSV+ + -+-----+-----+ +Max ICA / Mid CCA Ratio+1.17 +0.93 + + -+-----+-----+ Prepared and electronically signed by Russell Blankenship MD 03/04/2022 11:59 [facility] Work Phone: Radiology Study observation (narrative) [employer] Work Phone: VL CAROTID BILATERALOrdered By: Russell Blankenship on 03-04-2022 [employer] Work Phone: VL Carotid Duplex Ultrasound Completeon 03-04-2022 Carotid Duplex Ultrasound Complete Patient Name: BRADLEY MATOS Ultrasound ACCESSION EXAM DATE/TIME PROCEDURE ORDERING PROVIDER [id number] 03/04/2022 11:24 EDT VL Carotid Duplex [id number] -NIDA HOLLIDAY Ultrasound Complete CPT code 24254 Reason For Exam ( Carotid Duplex Ultrasound Complete) stroke; MRA neck inconclusive Report [facility] [place] -- Carotid Duplex Report Patient ChapinDOB: 1965 Study 03/04/2022 Name: Bradley Schwartz (56yrs) Date: Patient [id number] Age: 56 Account: [id number] ID: Gender: F Loc: 1322 BP: Ordering Physician: Nida Holliday Bindery Machine Setter: Britney Levi RVT Interpreting Physician: Russell Blankenship MD -- Location: [facility] -- Indications: Stroke, MRA neck inconclusive. -- Conclusions 1. Mild carotid disease present with less than 50% stenosis involving the right internal carotid artery. 2. Mild carotid disease present with less than 50% stenosis involving the left internal carotid artery. 3. Normal antegrade flow involving the right vertebral artery. 4. Normal antegrade flow involving the left vertebral artery. -- History: Risk factors: Nonsmoker. Hypertension. Morbidly obese. Immobility. -- Study data: Complete carotid duplex study. Grayscale 2D imaging, color Doppler imaging, and spectral Doppler analysis. Location: Vascular laboratory. Procedure: A vascular evaluation was performed with the patient in the supine position. Images were obtained using a Ultrasound Report [employer] vascular ultrasound machine. -- Findings Carotid/vertebral arteries: Right common carotid: The vessel has minimal and mixed plaque. Right internal carotid: The vessel has minimal and mixed plaque. Right external carotid: The vessel has minimal and smooth plaque. Left common carotid: The vessel has minimal and smooth plaque. Left internal carotid: The vessel is tortuous; it has minimal and calcified plaque. Left external carotid: The vessel has minimal and smooth plaque. -- Arterial flow: + +------- ----+ +------ --------+ +Location +PSV(cm/sec)+EDV(cm/sec )+Flow analysis + + +------- ----+ +------ --------+ +R CCA , prox +75 +16 + + + +------- ----+ +------ --------+ +R CCA , mid +72 +16 + + + +------- ----+ +------ --------+ +R CCA , distal+77 +18 + + + +------- ----+ +------ --------+ +R ICA , prox +56 +14 + + + +------- ----+ +------ --------+ +R ICA , mid +84 +27 + + + +------- ----+ +------ --------+ +R ICA , distal+70 +27 + + + +------- ----+ +------ --------+ +R ECA +152 +8 + + + +------- ----+ +------ --------+ +R vertebral +68 +17 +Antegrade flow+ + +------- ----+ +------ --------+ +R subclavian +80 +4 + + + +------- ----+ +------ --------+ +L CCA , prox +110 +23 + + + +------- ----+ +------ --------+ +L CCA , mid +94 +23 + + + +------- ----+ +------ --------+ +L CCA , distal+83 +23 + + + +------- ----+ +------ --------+ +L ICA , prox +64 +21 + + + +------- ----+ +------ --------+ +L ICA , mid +60 +18 + + + +------- ----+ +------ --------+ +L ICA , distal+87 +32 + + + +------- ----+ +------ --------+ +L ECA +129 +11 + + + +------- ----+ +------ --------+ +L vertebral +79 +25 +Antegrade flow+ + +------- ----+ +------ --------+ +L subclavian +120 +12 + + + +------- ----+ +------ --------+ Velocity ratios: + -+-----+-----+ + +R PSV+L PSV+ + -+-----+-----+ +Max ICA / Mid CCA Ratio+1.17 +0.93 + Ultrasound Report + -+-----+-----+ Prepared and electronically signed by Russell Blankenship MD 03/04/2022 11:59 Final Dictated: 03/04/2022 12:00 pm Dictating Physician: RUSSELL BLANKENSHIP Signed Date (more content not included)... Normal [employer] VL LOWER EXTREMITY BILATERAL VENOUS DUPLEXon 03-04-2022 Radiology Study observation (narrative) [employer] Work Phone: VL Venous Duplex US Lower Ex t Bilateralon 03-04-2022 VL Venous Duplex US Lower Ext Bilateral Patient Name: BRADLEY MATOS Ultrasound ACCESSION EXAM DATE/TIME PROCEDURE ORDERING PROVIDER [id number] 03/04/2022 17:00 EDT VL Venous Duplex US GERARDO LUCAS, HANNAH Cody Lower Ext Bilateral CPT code 33322 Reason For Exam (VL Venous Duplex US Lower Ext Bilateral) swelling Report [facility] -- Lower Extremity Venous Duplex Report Patient Chapin, : 1965 Study 03/04/2022 Name: Bradley Schwartz (56yrs) Date: Patient [id number] Age: 56 Account: [id number] ID: Gender: F Loc: 1322 BP: Ordering Physician: Hannah Lucas Bindery Machine Setter: Nida Mann RVT Interpreting Physician: Russell Blankenship MD -- Location: [facility] -- Indications: Edema right entire leg. Edema left entire leg. -- Conclusions 1. There is no evidence of acute deep or superficial venous thrombosis noted in the right lower extremity. 2. There is no evidence of acute deep or superficial venous thrombosis noted in the left lower extremity. -- History: Risk factors: Obese. Age over 50 years. -- Study data: Complete lower extremity venous duplex evaluation. Grayscale 2D imaging, color Doppler imaging, and spectral Doppler analysis. Location: Vascular laboratory. Procedure: A vascular evaluation was performed with the patient in the supine position. Images were obtained using a [employer] vascular ultrasound machine. The study was technically limited due to obesity and edema. Study was performed by Nicanor Miller RDMS, under the supervision of Jane Mann RVT. -- Venous flow and imaging: + +--- ----+ ---+ -+ +Location +Overall+Properties +Comments + + +--- ----+ ---+ -+ +R CFV +Patent +Normal phasicity; + + + + +spontaneous; normal + + + + +augmentation; + + + + +compressible + + + +--- ----+ ---+ -+ +R saphenofemoral +Patent +Compressible + + +junction + + + + + +--- ----+ ---+ -+ +R profunda femoral+Patent + + + + +--- ----+ ---+ -+ +R FV - prox. +Patent +Compressible + + + +--- ----+ ---+ -+ +R FV - mid +Patent +Normal phasicity; + + + + +spontaneous; normal + + + + +augmentation; + + + + +compressible + + + +--- ----+ ---+ -+ +R FV - distal +Patent +Compressible + + + +--- ----+ ---+ -+ +R popliteal +Patent +Normal phasicity; + + + + +spontaneous; normal + + + + +augmentation; + + + + +compressible + + + +--- ----+ ---+ -+ +R gastrocnemius +Patent +Compressible + + + +--- ----+ ---+ -+ +R PTV +Patent +Compressible +Visualized in + + + + +segments due to body+ + + + +habitus. + + +--- ----+ ---+ -+ +R peroneal +Patent +Compressible +Visualized in + + + + +segments due to body+ + + + +habitus. + + +--- ----+ ---+ -+ +R soleal +Patent +Compressible +Visualized in + + + + +segments due to body+ + + + +habitus. + + +--- ----+ ---+ -+ +R GSV +Patent +Compressible + + + +--- ----+ ---+ -+ +L CFV +Patent +Normal phasicity; + + + + +spontaneous; normal + + + + +augmentation; + + + + +compressible + + + +--- ----+ ---+ -+ +L saphenofemoral +Patent +Compressible + + +junction + + + + + +--- ----+ ---+ -+ +L profunda femoral+Patent + + + + +--- ----+ ---+ -+ +L FV - prox. +Patent +Compressible + + + +--- ---- (more content not included)... Normal [facility] Basic Metabolic Panelon 06-2 -2021 Anion gap [Moles/Vol] 6 mmol/L Normal 3-13 [facility] Comment on above: Performed By: #### REKHA PARIS ####[id number] [place] [address] Calcium [Mass/Vol] 8.8 mg/dL Normal 8.4-10.4 [facility] Comment on above: Performed By: #### REKHA PARIS ####[facility] [employer] [id number] [place] [address] CO2 [Moles/Vol] 27 mmol/L Normal 22-30 [facility] Comment on above: Performed By: #### REKHA PARIS ####[facility] [employer] [id number] [place] [address] Glucose [Mass/Vol] 112 mg/dL High 70-100 [facility] Comment on above: Performed By: #### REKHA PARIS ####[facility] [employer] [id number] [place], [place] Urea nitrogen [Mass/Vol] 13 mg/dL Normal 9-20 [facility] Comment on above: Performed By: #### H HUGO ALEX3M ####[facility] [employer] [id number] [place], [place] Creatinine [Mass/Vol] 0.71 mg/dL Normal 0.52-1.25 [facility] Comment on above: Performed By: #### H HUGO ALEX3M ####[facility] [employer] [id number] [place], [place] eGFR OTHER > 90.0 Normal >60 [facility] Comment on above: Result Comment: KDIG O guidelines provide the following GFR categories: Stage GFR(ml/min/1.73 m2) Terms G1 >=90 Normal or high G2 60-89 Mildly decreased* G3a 45-59 Mildly to moderately decreased G3b 30-44 Moderately to severely decreased G4 15-29 Severely decreased G5 <15 Kidney failure *Relative to young adult level. In the absence of evidence of kidney damage, neither GFR category G1 nor G2 fulfill the criteria for CKD. The CKD-EPI equation is validated in individuals 18 years of age and older. Currently the best equation for estimating glomerular filtration rate (GFR) from serum creatinine in children is the Bedside Loomis equation. It is less accurate in patients with extremes of muscle mass, restriction of dietary protein, ingestion of creatine, extra-renal metabolism of creatinine, or treatment with medications that affect renal tubular creatinine secretion. Performed By: #### REKHA PARIS ####[facility] [employer] [id number] [place], [place] GFR/1.73 sq M.predicted among blacks MDRD (S/P/Bld) [Vol rate/Area] mL/min/{1.73_m2} Normal >60 [facility] Comment on above: Performed By: #### H REKHA ALEX ####[facility] [employer] [id number] [place], [place] Potassium [Moles/Vol] 3.7 mmol/L Normal 3.5-5.1 [facility] Comment on above: Performed By: #### H REKHA ALEX ####[facility] [place] [address] Sodium [Moles/Vol] 135 mmol/L Normal 135-145 [facility] Comment on above: Performed By: #### H REKHA ALEX ####[facility] [place] [address] Chloride [Moles/Vol] 101 mmol/L Normal 98-107 [facility] Comment on above: Performed By: #### H REKHA ALEX ####[facility] [place] [address] Basic Metabolic Panel w/ Ref deep to MG 03-03-2022 Anion gap [Moles/Vol] 6 mmol/L 3 - 13 mmol/L [facility] Calcium [Mass/Vol] 8.8 mg/dL 8.4 - 10. 4 mg/dL [facility] Chloride [Moles/Vol] 101 mmol/L 98 - 10 7 mmol/L [facility] CO2 [Moles/Vol] 27 mmol/L 22 - 30 mmol/L [facility] Creatinine [Mass/Vol] 0.71 mg/dL 0.52 - 1.25 mg/dL [facility] EGFR IF NonAfrican Bhutanese >90.0 >60 mL/min [facility] Comment on above: KDIGO guidelines pro vide the following GFR categories: Stage GFR(ml/min/1.73 m2) Terms G1 >=90 Normal or high G2 60-89 Mildly decreased* G3a 45-59 Mildly to moderately decreased G3b 30-44 Moderately to severely decreased G4 15-29 Severely decreased G5 <15 Kidney failure *Relative to young adult level. In the absence of evidence of kidney damage, neither GFR category G1 nor G2 fulfill the criteria for CKD. The CKD-EPI equation is validated in individuals 18 years of age and older. Currently the best equation for estimating glomerular filtration rate (GFR) from serum creatinine in children is the Bedside Loomis equation. It is less accurate in patients with extremes of muscle mass, restriction of dietary protein, ingestion of creatine, extra-renal metabolism of creatinine, or treatment with medications that affect renal tubular creatinine secretion. GFR/1.73 sq M.predicted among blacks MDRD (S/P/Bld) [Vol rate/Area] mL/min/{1.73_m2} >60 mL/min [facility] Glucose [Mass/Vol] 112 mg/dL High 70 - 100 mg/dL [facility] Interpretation and review of laboratory results Abnormal [facility] Potassium [Moles/Vol] 3.7 mmol/L 3.5 - 5.1 mmol/L [facility] Sodium [Moles/Vol] 135 mmol/L 135 - 145 mmol/L [facility] Urea nitrogen (BldV) [Mass/Vol] 13 mg/dL 9 - 20 mg/dL [facility] Test Performed by [facility], [address] [place] [id number] [facility] CBCon 03-03-2022 Hematocrit (Bld) [Volume fraction] 36.2 % 35.0 - 47.0 % [facility] Hemoglobin (Bld) [Mass/Vol] 12.0 g/dL 11.7 - 16.0 g/dL [facility] Interpretation and review of laboratory results Abnormal [facility] MCH (RBC) [Entitic mass] 28.9 pg 26.0 - 34.0 pg [facility] MCHC (RBC) [Mass/Vol] 33.1 % 32.0 - 36.0 % [facility] MCV (RBC) [Entitic vol] 87.6 fL 79.0 - 98.0 fL [facility] Platelet distribution width (Bld) [Ratio] 17.0 % High 11.5 - 14.5 % [facility] Platelet mean volume (Bld) [Entitic vol] 8.2 fL 7.4 - 12.4 fL [facility] Comment on above: MPV is a calculated measurement using platelet volume ratio. Platelets (Bld) [#/Vol] 262 10*3/uL 140 - 440 10*3/uL [facility] RBC (Bld) [#/Vol] 4.13 10*6/uL 3.80 - 5.2 0 10*6/uL [facility] WBC (Bld) [#/Vol] 7.5 10*3/uL 3.6 - 10.7 10*3/uL [facility] Test Performed by [facility], [address] [place] [id number] [facility] Hemogramon 03-03-2022 Erythrocyte distribution width (RBC) [Ratio] 17.0 % High 11.5-14.5 [facility] Comment on above: Performed By: #### H EMOG, BMP3M ####[id number] [place], [place] Hematocrit (Bld) [Volume fraction] 36.2 % Normal 35.0-47.0 [facility] Comment on above: Performed By: #### Cat ALEX BMP3M ####[id number] [place], [place] Hemoglobin (Bld) [Mass/Vol] 12.0 g/dL Normal 11.7-16.0 [facility] Comment on above: Performed By: #### Cat ALEX BMP3M ####[id number] [place], [place] MCH (RBC) [Entitic mass] 28.9 pg Normal 26.0-34.0 [facility] Comment on above: Performed By: #### Cat ALEX BMP3M ####[address] [place], [place] MCHC 33.1 % Normal 32.0-36.0 [facility] Comment on above: Performed By: #### Cat ALEX BMP3M ####[id number] [place], [place] MCV (RBC) [Entitic vol] 87.6 fL Normal 79.0-98.0 [facility] Comment on above: Performed By: #### Cat ALEX BMP3M ####[id number] [place], [place] Platelet mean volume (Bld) [Entitic vol] 8.2 fL Normal 7.4-12.4 [facility] Comment on above: Result Comment: MPV is a calculated measurement using platelet volume ratio. Performed By: #### H ABI BMP3M ####[address] [place], [place] Platelets (Bld) [#/Vol] 262 10*3/uL Normal 140-440 [facility] Comment on above: Performed By: #### Cat ALEX BMP3M ####[id number] [place], [place] RBC (Bld) [#/Vol] 4.13 10*6/uL Normal 3.80-5.20 [facility] Comment on above: Performed By: #### H HUGO ALEX3M ####[facility] [facility] [id number] [place] [address] WBC (Bld) [#/Vol] 7.5 10*3/uL Normal 3.6-10.7 [facility] Comment on above: Performed By: #### H HUGO ALEX3M ####[facility] [employer] [facility] [id number] [place] [address] MRA Head w/o Contraston 02-07 MRA Head w/o Contrast [facility]: [id number] ACCESSION EXAM DATE/TIME PROCEDURE ORDERING PROVIDER [id number] 03/03/2022 08:43 EDT MRA Head w/o Contrast MD CEJA STEPHEN JOHN CPT code 13982 Reason For Exam (MRA Head w/o Contrast) stroke Report MRI BRAIN: CLINICAL INDICATION: Left-sided weakness with stroke symptoms TECHNIQUE: Sagittal T1, transaxial T2 and STIR along with diffusion weighted imaging. Patient could not tolerate further imaging, including postcontrast imaging COMPARISON: CT from two days ago FINDINGS: Ventricular system and Extra-axial spaces: Normal in size and morphology for the patient's age. No extracerebral collection with mass effect. Cerebral and cerebellar parenchyma: An ovoid focus of T2 hyperintensity with restricted diffusion is noted within the right side of the posterior corpus callosum and approximately 2.1 x 1.2 x 1.0 cm which is not detectable from the prior CT. In addition, there are multiple foci of T2 and FLAIR hyperintensity in periventricular and subcortical locations corresponding to chronic microvascular ischemic change. Brainstem: Normal. Sella turcica and pituitary: Normal. Vascular system: Normal signal void is noted within the major intracranial vessels. Paranasal sinuses: Clear. Mastoid air cells: Normal. Orbits: Normal. IMPRESSION: 1. Ovoid masslike region of a pleural effusion in the right side of the body of the posterior corpus callosum. While this could be a acute infarct, neoplasm remains in consideration and postcontrast imaging is recommended when patient can tolerate 2. Further evidence of chronic microvascular ischemic change. Magnetic Resonance Imaging Report MR ARTERIOGRAPHY HEAD: TECHNIQUE: Three-dimensional gradient echo intracranial MRA sequence was performed. Maximum intensity projection images were created various orientations. COMPARISON: None. FINDINGS: Exam quality: Region of artifact limits complete visualization on the right side Distal internal carotid arteries: Patent flow without significant abnormality Anterior cerebral arteries: Normal Middle cerebral arteries: Normal Distal vertebral arteries: Normal Basilar artery: Normal Posterior cerebral arteries: Normal left. The right is detectable on the source images and remains patent Anterior communicating artery: Normal Posterior communicating arteries: Normal Aneurysm or vascular malformation: None identified. IMPRESSION: Somewhat limited examination. No intracranial arterial abnormality identified. Report Dictated on Final Dictated: 03/03/2022 9:28 am Dictating Physician: MD GAMBOA JEFFREY Signed Date and Time: 03/03/2022 9:36 am Signed by: MD GAMBOA JEFFREY Transcribed Date and Time: 03/03/2022 9:28 Normal [facility] MRA head without contrast (R [facility] IMAGING OBTAIN IN THE LAST 2 yrs, to determine indication )on 03-03-2022 Patient Name: BRADLEY MATOS [facility] Resonance Imaging ACCESSION EXAM DATE/TIME PROCEDURE ORDERING PROVIDER [id number] 03/03/2022 08:43 EDT MRA Head w/o Contrast MD CEJA STEPHEN JOHN CPT code 99751 Reason For Exam (MRA Head w/o Contrast) stroke Report MRI BRAIN: CLINICAL INDICATION: Left-sided weakness with stroke symptoms TECHNIQUE: Sagittal T1, transaxial T2 and STIR along with diffusion weighted imaging. Patient could not tolerate further imaging, including postcontrast imaging COMPARISON: CT from two days ago FINDINGS: Ventricular system and Extra-axial spaces: Normal in size and morphology for the patient's age. No extracerebral collection with mass effect. Cerebral and cerebellar parenchyma: An ovoid focus of T2 hyperintensity with restricted diffusion is noted within the right side of the posterior corpus callosum and approximately 2.1 x 1.2 x 1.0 cm which is not detectable from the prior CT. In addition, there are multiple foci of T2 and FLAIR hyperintensity in periventricular and subcortical locations corresponding to chronic microvascular ischemic change. Brainstem: Normal. Sella turcica and pituitary: Normal. Vascular system: Normal signal void is noted within the major intracranial vessels. Paranasal sinuses: Clear. Mastoid air cells: Normal. Orbits: Normal. IMPRESSION: 1. Ovoid masslike region of a pleural effusion in the right side of the body of the posterior corpus callosum. While this could be a acute infarct, neoplasm remains in consideration and postcontrast imaging is recommended when patient can tolerate 2. Further evidence of chronic microvascular ischemic change. Magnetic Resonance Imaging Report MR ARTERIOGRAPHY HEAD: TECHNIQUE: Three-dimensional gradient echo intracranial MRA sequence was performed. Maximum intensity projection images were created various orientations. COMPARISON: None. FINDINGS: Exam quality: Region of artifact limits complete visualization on the right side Distal internal carotid arteries: Patent flow without significant abnormality Anterior cerebral arteries: Normal Middle cerebral arteries: Normal Distal vertebral arteries: Normal Basilar artery: Normal Posterior cerebral arteries: Normal left. The right is detectable on the source images and remains patent Anterior communicating artery: Normal Posterior communicating arteries: Normal Aneurysm or vascular malformation: None identified. IMPRESSION: Somewhat limited examination. No intracranial arterial abnormality identified. Report Dictated on --- Final --- Dictated: 03/03/2022 9:28 am Dictating Physician: MD GAMBOA JEFFREY Signed Date and Time: 03/03/2022 9:36 am Signed by: MD GAMBOA JEFFREY Transcribed Date and Time: 03/03/2022 9:[address] [facility] Andreas Gamboa MD - 03/03/2022 [id number] Magnetic Resonance Imaging ACCESSION EXAM DATE/TIME PROCEDURE ORDERING PROVIDER [id number] 03/03/2022 08:43 EDT MRA Head w/o Contrast MD CEJA STEPHEN JOHN CPT code 83242 Reason For Exam (MRA Head w/o Contrast) stroke Report MRI BRAIN: CLINICAL INDICATION: Left-sided weakness with stroke symptoms TECHNIQUE: Sagittal T1, transaxial T2 and STIR along with diffusion weighted imaging. Patient could not tolerate further imaging, including postcontrast imaging COMPARISON: CT from two days ago FINDINGS: Ventricular system and Extra-axial spaces: Normal in size and morphology for the patient's age. No extracerebral collection with mass effect. Cerebral and cerebellar parenchyma: An ovoid focus of T2 hyperintensity with restricted diffusion is noted within the right side of the posterior corpus callosum and approximately 2.1 x 1.2 x 1.0 cm which is not detectable from the prior CT. In addition, there are multiple foci of T2 and FLAIR hyperintensity in periventricular and subcortical locations corresponding to chronic microvascular ischemic change. Brainstem: Normal. Sella turcica and pituitary: Normal. Vascular system: Normal signal void is noted within the major intracranial vessels. Paranasal sinuses: Clear. Mastoid air cells: Normal. Orbits: Normal. IMPRESSION: 1. Ovoid masslike region of a pleural effusion in the right side of the body of the posterior corpus callosum. While this could be a acute infarct, neoplasm remains in consideration and postcontrast imaging is recommended when patient can tolerate 2. Further evidence of chronic microvascular ischemic change. Magnetic Resonance Imaging Report MR ARTERIOGRAPHY HEAD: TECHNIQUE: Three-dimensional gradient echo intracranial MRA sequence was performed. Maximum intensity projection images were created various orientations. COMPARISON: None. FINDINGS: Exam quality: Region of artifact limits complete visualization on the right side Distal internal carotid arteries: Patent flow without significant abnormality Anterior cerebral arteries: Normal Middle cerebral arteries: Normal Distal vertebral arteries: Normal Basilar artery: Normal Posterior cerebral arteries: Normal left. The right is detectable on the source images and remains patent Anterior communicating artery: Normal Posterior communicating arteries: Normal Aneurysm or vascular malformation: None identified. IMPRESSION: Somewhat limited examination. No intracranial arterial abnormality identified. Report Dictated on --- Final --- Dictated: 03/03/2022 9:28 am Dictating Physician: MD GAMBOA JEFFREY Signed Date and Time: 03/03/2022 9:36 am Signed by: MD GAMBOA JEFFREY Transcribed Date and Time: 03/03/2022 9:28 [facility] Work Phone: [facility] Work Phone: MRI Brain w/ + w/o Contrasto n 03-03-2022 MRI Brain w/ + w/o Contrast Patient Name: BRADLEY MATOS [facility] ACCESSION EXAM DATE/TIME PROCEDURE ORDERING PROVIDER [id number] 03/03/2022 08:43 EDT MRI Brain w/ + w/o MD MARCIAL, RIKKI OWEN CPT code 53009 Reason For Exam (MRI Brain w/ + w/o Contrast) stroke Report MRI BRAIN: CLINICAL INDICATION: Left-sided weakness with stroke symptoms TECHNIQUE: Sagittal T1, transaxial T2 and STIR along with diffusion weighted imaging. Patient could not tolerate further imaging, including postcontrast imaging COMPARISON: CT from two days ago FINDINGS: Ventricular system and Extra-axial spaces: Normal in size and morphology for the patient's age. No extracerebral collection with mass effect. Cerebral and cerebellar parenchyma: An ovoid focus of T2 hyperintensity with restricted diffusion is noted within the right side of the posterior corpus callosum and approximately 2.1 x 1.2 x 1.0 cm which is not detectable from the prior CT. In addition, there are multiple foci of T2 and FLAIR hyperintensity in periventricular and subcortical locations corresponding to chronic microvascular ischemic change. Brainstem: Normal. Sella turcica and pituitary: Normal. Vascular system: Normal signal void is noted within the major intracranial vessels. Paranasal sinuses: Clear. Mastoid air cells: Normal. Orbits: Normal. IMPRESSION: 1. Ovoid masslike region of a pleural effusion in the right side of the body of the posterior corpus callosum. While this could be a acute infarct, neoplasm remains in consideration and postcontrast imaging is recommended when patient can tolerate 2. Further evidence of chronic microvascular ischemic change. Magnetic Resonance Imaging Report MR ARTERIOGRAPHY HEAD: TECHNIQUE: Three-dimensional gradient echo intracranial MRA sequence was performed. Maximum intensity projection images were created various orientations. COMPARISON: None. FINDINGS: Exam quality: Region of artifact limits complete visualization on the right side Distal internal carotid arteries: Patent flow without significant abnormality Anterior cerebral arteries: Normal Middle cerebral arteries: Normal Distal vertebral arteries: Normal Basilar artery: Normal Posterior cerebral arteries: Normal left. The right is detectable on the source images and remains patent Anterior communicating artery: Normal Posterior communicating arteries: Normal Aneurysm or vascular malformation: None identified. IMPRESSION: Somewhat limited examination. No intracranial arterial abnormality identified. Report Dictated on Final Dictated: 03/03/2022 9:28 am Dictating Physician: MD GAMBOA JEFFREY Signed Date and Time: 03/03/2022 9:36 am Signed by: MD GAMBOA JEFFREY Transcribed Date and Time: 03/03/2022 9:28 Normal [facility] MRI brain with and without c ontrast (REVIEW IMAGING RECORDS IN THE LAST 2 YRS to determine INDICATION prior to oder )on 03-03-2022 [facility]: [id number] Magnetic Resonance Imaging ACCESSION EXAM DATE/TIME PROCEDURE ORDERING PROVIDER [id number] 03/03/2022 08:43 EDT MRI Brain w/ + w/o MD CEJA STEPHEN Contrast JOHN CPT code [id number] Reason For Exam (MRI Brain w/ + w/o Contrast) stroke Report MRI BRAIN: CLINICAL INDICATION: Left-sided weakness with stroke symptoms TECHNIQUE: Sagittal T1, transaxial T2 and STIR along with diffusion weighted imaging. Patient could not tolerate further imaging, including postcontrast imaging COMPARISON: CT from two days ago FINDINGS: Ventricular system and Extra-axial spaces: Normal in size and morphology for the patient's age. No extracerebral collection with mass effect. Cerebral and cerebellar parenchyma: An ovoid focus of T2 hyperintensity with restricted diffusion is noted within the right side of the posterior corpus callosum and approximately 2.1 x 1.2 x 1.0 cm which is not detectable from the prior CT. In addition, there are multiple foci of T2 and FLAIR hyperintensity in periventricular and subcortical locations corresponding to chronic microvascular ischemic change. Brainstem: Normal. Sella turcica and pituitary: Normal. Vascular system: Normal signal void is noted within the major intracranial vessels. Paranasal sinuses: Clear. Mastoid air cells: Normal. Orbits: Normal. IMPRESSION: 1. Ovoid masslike region of a pleural effusion in the right side of the body of the posterior corpus callosum. While this could be a acute infarct, neoplasm remains in consideration and postcontrast imaging is recommended when patient can tolerate 2. Further evidence of chronic microvascular ischemic change. Magnetic Resonance Imaging Report MR ARTERIOGRAPHY HEAD: TECHNIQUE: Three-dimensional gradient echo intracranial MRA sequence was performed. Maximum intensity projection images were created various orientations. COMPARISON: None. FINDINGS: Exam quality: Region of artifact limits complete visualization on the right side Distal internal carotid arteries: Patent flow without significant abnormality Anterior cerebral arteries: Normal Middle cerebral arteries: Normal Distal vertebral arteries: Normal Basilar artery: Normal Posterior cerebral arteries: Normal left. The right is detectable on the source images and remains patent Anterior communicating artery: Normal Posterior communicating arteries: Normal Aneurysm or vascular malformation: None identified. IMPRESSION: Somewhat limited examination. No intracranial arterial abnormality identified. Report Dictated on --- Final --- Dictated: 03/03/2022 9:28 am Dictating Physician: MD GAMBOA JEFFREY Signed Date and Time: 03/03/2022 9:36 am Signed by: MD GAMBOA JEFFREY Transcribed Date and Time: 03/03/2022 9:28 [facility] Andreas Gamboa MD - 03/03/2022 [id number] Magnetic Resonance Imaging ACCESSION EXAM DATE/TIME PROCEDURE ORDERING PROVIDER [id number] 03/03/2022 08:43 EDT MRI Brain w/ + w/o MD CEJA STEPHEN Contrast RUSSELL CPT code [id number] Reason For Exam (MRI Brain w/ + w/o Contrast) stroke Report MRI BRAIN: CLINICAL INDICATION: Left-sided weakness with stroke symptoms TECHNIQUE: Sagittal T1, transaxial T2 and STIR along with diffusion weighted imaging. Patient could not tolerate further imaging, including postcontrast imaging COMPARISON: CT from two days ago FINDINGS: Ventricular system and Extra-axial spaces: Normal in size and morphology for the patient's age. No extracerebral collection with mass effect. Cerebral and cerebellar parenchyma: An ovoid focus of T2 hyperintensity with restricted diffusion is noted within the right side of the posterior corpus callosum and approximately 2.1 x 1.2 x 1.0 cm which is not detectable from the prior CT. In addition, there are multiple foci of T2 and FLAIR hyperintensity in periventricular and subcortical locations corresponding to chronic microvascular ischemic change. Brainstem: Normal. Sella turcica and pituitary: Normal. Vascular system: Normal signal void is noted within the major intracranial vessels. Paranasal sinuses: Clear. Mastoid air cells: Normal. Orbits: Normal. IMPRESSION: 1. Ovoid masslike region of a pleural effusion in the right side of the body of the posterior corpus callosum. While this could be a acute infarct, neoplasm remains in consideration and postcontrast imaging is recommended when patient can tolerate 2. Further evidence of chronic microvascular ischemic change. Magnetic Resonance Imaging Report MR ARTERIOGRAPHY HEAD: TECHNIQUE: Three-dimensional gradient echo intracranial MRA sequence was performed. Maximum intensity projection images were created various orientations. COMPARISON: None. FINDINGS: Exam quality: Region of artifact limits complete visualization on the right side Distal internal carotid arteries: Patent flow without significant abnormality Anterior cerebral arteries: Normal Middle cerebral arteries: Normal Distal vertebral arteries: Normal Basilar artery: Normal Posterior cerebral arteries: Normal left. The right is detectable on the source images and remains patent Anterior communicating artery: Normal Posterior communicating arteries: Normal Aneurysm or vascular malformation: None identified. IMPRESSION: Somewhat limited examination. No intracranial arterial abnormality identified. Report Dictated on --- Final --- Dictated: 03/03/2022 9:28 am Dictating Physician: MD GAMBOA JEFFREY Signed Date and Time: 03/03/2022 9:36 am Signed by: MD GAMBOA JEFFREY Transcribed Date and Time: 03/03/2022 9:28 [facility] Work Phone: [facility] Work Phone: Add On Lab Teston 03-02-2022 Add On Rejected [facility] Comment on above: No specimen availabl e for addon. Test Performed by [address] [facility] Add On Accepted [facility] Comment on above: Specimen available & acceptable for analysis. Test Performed by [facility], [address] [place], [place] [address] Add on test from HISon 03-02 Add on test from HIS Rejected Normal [facility] Comment on above: Result Comment: No s pecimen available for addon. Performed By: #### A DDON #### [address] Add on test from HIS Accepted Normal [facility] Comment on above: Result Comment: Spec imen available & acceptable for analysis. Performed By: #### A DDON ####[facility] [place] [address] Basic Metabolic Panelon 02-07 Calcium [Mass/Vol] 8.9 mg/dL Normal 8.4-10.4 [facility] Comment on above: Performed By: #### H EMOG, BMP3M, FOLT3, LIPD2, HA1C2, B12, TROPN, MG3, TSH5 #### [address] Anion gap [Moles/Vol] 7 mmol/L Normal 3-13 [facility] Comment on above: Performed By: #### H EMOG, BMP3M, FOLT3, LIPD2, HA1C2, B12, TROPN, MG3, TSH5 #### [address] CO2 [Moles/Vol] 28 mmol/L Normal 22-30 [facility] Comment on above: Performed By: #### H EMOG, BMP3M, FOLT3, LIPD2, HA1C2, B12, TROPN, MG3, TSH5 #### [address] Creatinine [Mass/Vol] 0.86 mg/dL Normal 0.52-1.25 [facility] Comment on above: Performed By: #### H EMOG, BMP3M, FOLT3, LIPD2, HA1C2, B12, TROPN, MG3, TSH5 #### [address] [address] [place], [place] GFR/1.73 sq M.predicted among blacks MDRD (S/P/Bld) [Vol rate/Area] 88.2 mL/min/{1.73_m2} Normal >60 [facility] Comment on above: Performed By: #### H EMOG, BMP3M, FOLT3, LIPD2, HA1C2, B12, TROPN, MG3, TSH5 #### [address] GFR/1.73 sq M.predicted among non-blacks MDRD (S/P/Bld) [Vol rate/Area] 76.1 mL/min/{1.73_m2} Normal >60 [facility] Comment on above: Result Comment: KDIG O guidelines provide the following GFR categories: Stage GFR(ml/min/1.73 m2) Terms G1 >=90 Normal or high G2 60-89 Mildly decreased* G3a 45-59 Mildly to moderately decreased G3b 30-44 Moderately to severely decreased G4 15-29 Severely decreased G5 <15 Kidney failure *Relative to young adult level. In the absence of evidence of kidney damage, neither GFR category G1 nor G2 fulfill the criteria for CKD. The CKD-EPI equation is validated in individuals 18 years of age and older. Currently the best equation for estimating glomerular filtration rate (GFR) from serum creatinine in children is the Bedside Loomis equation. It is less accurate in patients with extremes of muscle mass, restriction of dietary protein, ingestion of creatine, extra-renal metabolism of creatinine, or treatment with medications that affect renal tubular creatinine secretion. Performed By: #### H EMOG, BMP3M, FOLT3, LIPD2, HA1C2, B12, TROPN, MG3, TSH5 #### [address] Glucose [Mass/Vol] 145 mg/dL High 70-100 [facility] Comment on above: Performed By: #### H EMOG, BMP3M, FOLT3, LIPD2, HA1C2, B12, TROPN, MG3, TSH5 #### [address] [address] Urea nitrogen [Mass/Vol] 11 mg/dL Normal 9-20 [facility] Comment on above: Performed By: #### H EMOG, BMP3M, FOLT3, LIPD2, HA1C2, B12, TROPN, MG3, TSH5 #### [address] [address] Chloride [Moles/Vol] 102 mmol/L Normal 98-107 [facility] Comment on above: Performed By: #### H EMOG, BMP3M, FOLT3, LIPD2, HA1C2, B12, TROPN, MG3, TSH5 #### [address] [address] Potassium [Moles/Vol] 3.5 mmol/L Normal 3.5-5.1 [facility] Comment on above: Performed By: #### H EMOG, BMP3M, FOLT3, LIPD2, HA1C2, B12, TROPN, MG3, TSH5 #### [facility] [address] [place] [address] Sodium [Moles/Vol] 137 mmol/L Normal 135-145 [facility] Comment on above: Performed By: #### H EMOG, BMP3M, FOLT3, LIPD2, HA1C2, B12, TROPN, MG3, TSH5 #### [facility] [address] [place] [address] Basic Metabolic Panel w/ Ref deep to [facility] 03-02-2022 Anion gap [Moles/Vol] 7 mmol/L 3 - 13 mmol/L [facility] Calcium [Mass/Vol] 8.9 mg/dL 8.4 - 10. 4 mg/dL [facility] Chloride [Moles/Vol] 102 mmol/L 98 - 10 7 mmol/L [facility] CO2 [Moles/Vol] 28 mmol/L 22 - 30 mmol/L [facility] Creatinine [Mass/Vol] 0.86 mg/dL 0.52 - 1.25 mg/dL [facility] EGFR IF NonAfrican Bhutanese 76.1 mL/min >60 [facility] Comment on above: KDIGO guidelines pro vide the following GFR categories: Stage GFR(ml/min/1.73 m2) Terms G1 >=90 Normal or high G2 60-89 Mildly decreased* G3a 45-59 Mildly to moderately decreased G3b 30-44 Moderately to severely decreased G4 15-29 Severely decreased G5 <15 Kidney failure *Relative to young adult level. In the absence of evidence of kidney damage, neither GFR category G1 nor G2 fulfill the criteria for CKD. The CKD-EPI equation is validated in individuals 18 years of age and older. Currently the best equation for estimating glomerular filtration rate (GFR) from serum creatinine in children is the Bedside Loomis equation. It is less accurate in patients with extremes of muscle mass, restriction of dietary protein, ingestion of creatine, extra-renal metabolism of creatinine, or treatment with medications that affect renal tubular creatinine secretion. GFR/1.73 sq M.predicted among blacks MDRD (S/P/Bld) [Vol rate/Area] 88.2 mL/min/{1.73_m2} >60 [facility] Glucose [Mass/Vol] 145 mg/dL High 70 - 100 mg/dL [facility] Potassium [Moles/Vol] 3.5 mmol/L 3.5 - 5.1 mmol/L [facility] Sodium [Moles/Vol] 137 mmol/L 135 - 145 mmol/L [facility] Urea nitrogen (BldV) [Mass/Vol] 11 mg/dL 9 - 20 mg/dL [facility] CBCon 03-02-2022 Hematocrit (Bld) [Volume fraction] 37.0 % 35.0 - 47.0 % [facility] Hemoglobin (Bld) [Mass/Vol] 12.1 g/dL 11.7 - 16.0 g/dL [facility] Interpretation and review of laboratory results Abnormal [facility] MCH (RBC) [Entitic mass] 28.9 pg 26.0 - 34.0 pg [facility] MCHC (RBC) [Mass/Vol] 32.6 % 32.0 - 36.0 % [facility] MCV (RBC) [Entitic vol] 88.6 fL 79.0 - 98.0 fL [facility] Platelet distribution width (Bld) [Ratio] 17.1 % High 11.5 - 14.5 % [facility] Platelet mean volume (Bld) [Entitic vol] 7.9 fL 7.4 - 12.4 fL [facility] Comment on above: MPV is a calculated measurement using platelet volume ratio. Platelets (Bld) [#/Vol] 269 10*3/uL 140 - 440 10*3/uL [facility] RBC (Bld) [#/Vol] 4.18 10*6/uL 3.80 - 5.2 0 10*6/uL [facility] WBC (Bld) [#/Vol] 9.4 10*3/uL 3.6 - 10.7 10*3/uL [facility] Test Performed by [facility], [address] [place] [id number] [place] [address] LAB [facility] ECHO Complete 2D W Doppler W Coloron 03-02-2022 TRANSTHORACIC ECHOCARDIOGRAM PATIENT: Bradley Matos STUDY DATE: 03/02/2022 A FIN#: : 1965 AGE: 56 HT/WT: 167.6 cm (66 147.4 kg (324.3 in) lb) GENDER: F BP: 155 / 67 LOCATION: [facility] PATIENT Observation main STATUS: *READING PHYSICIAN: * Cliff Mcclain *RAM CAR OPERATOR: * Jackie Quiros -- INDICATIONS: Stroke. -- CONCLUSIONS SUMMARY: 1. Left ventricle: The cavity size is normal. Wall thickness is mildly increased. Systolic function is normal by the biplane method of disks. The estimated ejection fraction is 65%. There are no regional wall motion abnormalities. 2. Atrial septum: There is no evidence of right to left shunting with injection of agitated saline contrast. 3. No significant valve disease. 4. No obvious source of embolism is identified. -- STUDY DATA: Complete transthoracic echocardiogram. Procedure: Image quality was poor. The study was technically limited due to body habitus. Intravenous imaging enhancement (Definity) was administered to opacify the chamber. Definity lot #: [id number]. M-mode, complete 2D, complete spectral Doppler, and color flow Doppler images were acquired and archived for permanent storage and are available for subsequent review. Study status: Routine. Patient status: Observation. ECG RHYTHM: NSR -- FINDINGS LEFT VENTRICLE: The cavity size is normal. Wall thickness is mildly increased. Systolic function is normal by the biplane method of disks. The estimated ejection fraction is 65%. There are no regional wall motion abnormalities. Left ventricular diastolic function parameters are normal for the patient's age. RIGHT VENTRICLE: The cavity size is normal. Systolic function is normal. VENTRICULAR SEPTUM: There is no evidence of a ventricular septal defect. LEFT ATRIUM: The atrium is normal in size. RIGHT ATRIUM: The atrium is normal in size. ATRIAL SEPTUM: Color Doppler shows no shunt. There is no evidence of right to left shunting with injection of agitated saline contrast. MITRAL VALVE: Structurally normal valve. Doppler: There is no regurgitation. AORTIC VALVE: Not well visualized. Structurally normal valve. Probably trileaflet. Doppler: There is no regurgitation. The peak systolic gradient is 7 mm Hg. The peak systolic velocity is 1.3 m/sec. TRICUSPID VALVE: Not well visualized. Structurally normal valve. Doppler: There is no significant regurgitation. PULMONIC VALVE: Structurally normal valve. Doppler: There is no regurgitation. AORTA: The aorta is normal. PERICARDIUM: There is no pericardial effusion. SYSTEMIC VEINS: Inferior vena cava: Not visualized. -- Measurements Value Reference Aortic root ID 2.9 cm <4.7 Aortic root ID, STJ, ED 2.4 cm 2.0 - 3.2 Aortic root ID/bsa, STJ, ED (L) 0.9 cm/m^2 1.1 - 1.9 Value Reference Ascending aorta ID 2.9 cm 1.9 - 3.5 Ascending aorta ID/bsa, A-P 1.1 cm/m^2 1.0 - 2.2 Ascending aorta ID, A-P, S 2.9 cm --------- Ascending aorta ID/bsa, A-P, S 1.1 cm/m^2 --------- Value Reference Aortic arch ID 2.7 cm --------- Aortic arch ID/bsa 1.0 cm/m^2 --------- Left ventricle Value Reference LV ID, ED (H) 5.4 cm 3.8 - 5.2 LV ID, ES (H) 3.7 cm 2.2 - 3.5 LV ID/bsa, ED (L) 2.0 cm/m^2 2.3 - 3.1 LV ID/bsa, ES 1.4 cm/m^2 1.3 - 2.1 LV PW thickness, ED (H) 1.4 cm 0.6 - 0.9 LV PW/LV ID ratio, ED 0.26 --------- LV wall mass (H) 353 g 66 - 150 LV wall mass/bsa (H) 130 g/m^2 44 - 88 Stroke volume/bsa, 1-p A2C 32.9 ml/m^2 --------- LV end-diastolic volume, 1-p A4C 137 ml 48 - 140 LV end-systolic volume, 1-p A4C 54 ml 12 - 60 LV end-diastolic volume, 2-p (H) 134 ml 46 - 106 LV end-systolic volume, 2-p (H) 47 ml 14 - 42 LV ejection fraction, 2-p 65 % 54 - 74 LV E/e', lateral 10 --------- LV E/e', medial (more content not included)... [facility] CARDIOLOGY Cliff Mcclain MD - 03/04/2022 TRANSTHORACIC ECHOCARDIOGRAM PATIENT: Bradley Matos STUDY DATE: 03/02/2022 A FIN#: : 1965 AGE: 56 HT/WT: 167.6 cm (66 147.4 kg (324.3 in) lb) GENDER: F BP: 155 / 67 LOCATION: [facility] PATIENT Observation main STATUS: *READING PHYSICIAN: * Cliff Mcclain *RAM CAR OPERATOR: * Jackie Quiros -- INDICATIONS: Stroke. -- CONCLUSIONS SUMMARY: 1. Left ventricle: The cavity size is normal. Wall thickness is mildly increased. Systolic function is normal by the biplane method of disks. The estimated ejection fraction is 65%. There are no regional wall motion abnormalities. 2. Atrial septum: There is no evidence of right to left shunting with injection of agitated saline contrast. 3. No significant valve disease. 4. No obvious source of embolism is identified. -- STUDY DATA: Complete transthoracic echocardiogram. Procedure: Image quality was poor. The study was technically limited due to body habitus. Intravenous imaging enhancement (Definity) was administered to opacify the chamber. Definity lot #: [id number]. M-mode, complete 2D, complete spectral Doppler, and color flow Doppler images were acquired and archived for permanent storage and are available for subsequent review. Study status: Routine. Patient status: Observation. ECG RHYTHM: NSR -- FINDINGS LEFT VENTRICLE: The cavity size is normal. Wall thickness is mildly increased. Systolic function is normal by the biplane method of disks. The estimated ejection fraction is 65%. There are no regional wall motion abnormalities. Left ventricular diastolic function parameters are normal for the patient's age. RIGHT VENTRICLE: The cavity size is normal. Systolic function is normal. VENTRICULAR SEPTUM: There is no evidence of a ventricular septal defect. LEFT ATRIUM: The atrium is normal in size. RIGHT ATRIUM: The atrium is normal in size. ATRIAL SEPTUM: Color Doppler shows no shunt. There is no evidence of right to left shunting with injection of agitated saline contrast. MITRAL VALVE: Structurally normal valve. Doppler: There is no regurgitation. AORTIC VALVE: Not well visualized. Structurally normal valve. Probably trileaflet. Doppler: There is no regurgitation. The peak systolic gradient is 7 mm Hg. The peak systolic velocity is 1.3 m/sec. TRICUSPID VALVE: Not well visualized. Structurally normal valve. Doppler: There is no significant regurgitation. PULMONIC VALVE: Structurally normal valve. Doppler: There is no regurgitation. AORTA: The aorta is normal. PERICARDIUM: There is no pericardial effusion. SYSTEMIC VEINS: Inferior vena cava: Not visualized. -- Measurements Value Reference Aortic root ID 2.9 cm <4.7 Aortic root ID, STJ, ED 2.4 cm 2.0 - 3.2 Aortic root ID/bsa, STJ, ED (L) 0.9 cm/m^2 1.1 - 1.9 Value Reference Ascending aorta ID 2.9 cm 1.9 - 3.5 Ascending aorta ID/bsa, A-P 1.1 cm/m^2 1.0 - 2.2 Ascending aorta ID, A-P, S 2.9 cm --------- Ascending aorta ID/bsa, A-P, S 1.1 cm/m^2 --------- Value Reference Aortic arch ID 2.7 cm --------- Aortic arch ID/bsa 1.0 cm/m^2 --------- Left ventricle Value Reference LV ID, ED (H) 5.4 cm 3.8 - 5.2 LV ID, ES (H) 3.7 cm 2.2 - 3.5 LV ID/bsa, ED (L) 2.0 cm/m^2 2.3 - 3.1 LV ID/bsa, ES 1.4 cm/m^2 1.3 - 2.1 LV PW thickness, ED (H) 1.4 cm 0.6 - 0.9 LV PW/LV ID ratio, ED 0.26 --------- LV wall mass (H) 353 g 66 - 150 LV wall mass/bsa (H) 130 g/m^2 44 - 88 Stroke volume/bsa, 1-p A2C 32.9 ml/m^2 --------- LV end-diastolic volume, 1-p A4C 137 ml 48 - 140 LV end-systolic volume, 1-p A4C 54 ml 12 - 60 LV end-diastolic volume, 2-p (H) 134 ml 46 - 106 LV end-systolic volume, 2-p (H) 47 ml 14 - 42 LV ejection fraction, 2-p 65 % 54 - 74 LV E/e', lateral 10 --------- LV E/e', medial 13 --------- LV E/e', average 11.3 --------- Ventricular septum Value Reference IVS thickness, ED (H) 1.5 cm 0.6 - 0.9 LVOT Value Reference LVOT ID, A-P 2.2 cm --------- LVOT mean velocity, S 0.7 m/sec --------- LVOT peak gradient, S 5 mm Hg --------- Stroke volume (SV), LVOT DP 85 ml --------- Stroke index (SV/bsa), LVOT DP 31 ml/m^2 --------- Aortic valve Value Reference Aortic valve peak velocity, S 1.3 m/sec --------- Aortic peak gradient, S 7 mm Hg --------- Mitral valve Value Reference Mitral E-wave peak velocity 0.6 m/sec --------- Mitral A-wave peak velocity 0.8 m/sec --------- Mitral deceleration time 301 ms --------- Mitral E/A ratio, peak 0.8 (more content not included)... [employer] Work Phone: ECHO Complete 2D W Doppler W ColorOrdered By: Cliff Mcclain on 03-02-2022 [employer] Phone: Echo Complete w/wo Contrasto n 03-02-2022 Echo Complete w/wo Contrast Patient Name: BRADLEY MATOS Ultrasound ACCESSION EXAM DATE/TIME PROCEDURE ORDERING PROVIDER [id number] 03/02/2022 15:24 EDT Echo Complete w/wo MD MARCIAL, RIKKI OWEN Reason For Exam (Echo Complete w/wo Contrast) stroke Report TRANSTHORACIC ECHOCARDIOGRAM PATIENT: Bradley Matos STUDY DATE: 03/02/2022 A FIN#: : 1965 AGE: 56 HT/WT: 167.6 cm (66 147.4 kg (324.3 in) lb) GENDER: F BP: 155 / 67 LOCATION: [facility] [employer] [facility] PATIENT Observation main STATUS: *READING PHYSICIAN: * Cliff Mcclain *RAM CAR OPERATOR: * Jackie Quiros -- INDICATIONS: Stroke. -- CONCLUSIONS SUMMARY: 1. Left ventricle: The cavity size is normal. Wall thickness is mildly increased. Systolic function is normal by the biplane method of disks. The estimated ejection fraction is 65%. There are no regional wall motion abnormalities. 2. Atrial septum: There is no evidence of right to left shunting with injection of agitated saline contrast. 3. No significant valve disease. 4. No obvious source of embolism is identified. -- STUDY DATA: Complete transthoracic echocardiogram. Procedure: Image quality was poor. The study was technically limited due to body habitus. Intravenous imaging enhancement (Definity) was administered to opacify the chamber. Definity lot #: [id number]. M-mode, complete 2D, complete spectral Doppler, and color flow Doppler images were acquired and archived for permanent storage and are available for subsequent review. Study status: Routine. Patient status: Observation. ECG RHYTHM: NSR -- FINDINGS LEFT VENTRICLE: The cavity size is normal. Wall thickness is mildly increased. Systolic function is normal by the biplane method of disks. The estimated ejection fraction is 65%. There are no regional wall Ultrasound Report motion abnormalities. Left ventricular diastolic function parameters are normal for the patient's age. RIGHT VENTRICLE: The cavity size is normal. Systolic function is normal. VENTRICULAR SEPTUM: There is no evidence of a ventricular septal defect. LEFT ATRIUM: The atrium is normal in size. RIGHT ATRIUM: The atrium is normal in size. ATRIAL SEPTUM: Color Doppler shows no shunt. There is no evidence of right to left shunting with injection of agitated saline contrast. MITRAL VALVE: Structurally normal valve. Doppler: There is no regurgitation. AORTIC VALVE: Not well visualized. Structurally normal valve. Probably trileaflet. Doppler: There is no regurgitation. The peak systolic gradient is 7 mm Hg. The peak systolic velocity is 1.3 m/sec. TRICUSPID VALVE: Not well visualized. Structurally normal valve. Doppler: There is no significant regurgitation. PULMONIC VALVE: Structurally normal valve. Doppler: There is no regurgitation. AORTA: The aorta is normal. PERICARDIUM: There is no pericardial effusion. SYSTEMIC VEINS: Inferior vena cava: Not visualized. -- Measurements Value Reference Aortic root ID 2.9 cm <4.7 Aortic root ID, STJ, ED 2.4 cm 2.0 - 3.2 Aortic root ID/bsa, STJ, ED (L) 0.9 cm/m^2 1.1 - 1.9 Value Reference Ascending aorta ID 2.9 cm 1.9 - 3.5 Ascending aorta ID/bsa, A-P 1.1 cm/m^2 1.0 - 2.2 Ascending aorta ID, A-P, S 2.9 cm --------- Ascending aorta ID/bsa, A-P, S 1.1 cm/m^2 --------- Value Reference Aortic arch ID 2.7 cm --------- Aortic arch ID/bsa 1.0 cm/m^2 --------- Left ventricle Value Reference LV ID, ED (H) 5.4 cm 3.8 - 5.2 LV ID, ES (H) 3.7 cm 2.2 - 3.5 LV ID/bsa, ED (L) 2.0 cm/m^2 2.3 - 3.1 LV ID/bsa, ES 1.4 cm/m^2 1.3 - 2.1 LV PW thickness, ED (H) 1.4 cm 0.6 - 0.9 LV PW/LV ID ratio, ED 0.26 --------- LV wall mass (H) 353 g 66 - 150 LV wall mass/bsa (H) 130 g/m^2 44 - 88 Stroke volume/bsa, 1-p A2C 32.9 ml/m^2 --------- LV end-diastolic volume, 1-p A4C 137 ml 48 - 140 LV end-systolic volume, 1-p A4C 54 ml 12 - 60 LV end-diastolic volume, 2-p (H) 134 ml 46 - 106 LV end-systolic volume, 2-p (H) 47 ml 14 - 42 LV ejection fraction, 2-p 65 % 54 - 74 LV E/e', lateral 10 --------- LV E/e', medial 13 --------- LV E/e', average 11.3 --------- Ventricular septum Value Reference Ultrasound Report IVS thickness, ED (H) 1.5 cm 0.6 - 0.9 LVOT Value Reference LVOT ID, A-P 2.2 cm --------- LVOT mean velocity, S 0.7 m/sec --------- LVOT peak gradient, S 5 mm Hg --------- Stroke volume (SV), LVOT DP 85 ml --------- Stroke index (SV/bsa), LVOT DP 31 ml/m^2 --------- Aortic valve Value Reference Aortic valve peak velocity, S 1.3 m/sec --------- Aort (more content not included)... Normal [facility] Folateon 03-02-2022 Folate 7.1 ng/mL Normal [facility] Comment on above: Result Comment: >2.8 Performed By: #### H EMOG, BMP3M, FOLT3, LIPD2, HA1C2, B12, TROPN, MG3, TSH5 ####[facility] [employer] [id number] [place] [address] Folate 7.1 ng/mL [facility] Comment on above: >2.8 Test Performed by [facility], [address] LAB [facility] Hemoglobin A1Con 03-02-2022 Glucose [Mass/Vol] 120 mg/dL Normal [facility] Comment on above: Performed By: #### H EMOG, BMP3M, FOLT3, LIPD2, HA1C2, B12, TROPN, MG3, TSH5 ####[facility] [employer] [id number] [place] [address] HbA1c (Bld) [Mass fraction] 5.8 % Abnormal [facility] Comment on above: Result Comment: Norm al less than 5.7% Prediabetes 5.7% to 6.4% Diabetes 6.5% or higher --HgbA1C levels may not be accurate in patients who have renal disease, received recent blood transfusions, are anemic, or who have dyshemoglobinemia. Performed By: #### H EMOG, BMP3M, FOLT3, LIPD2, HA1C2, B12, TROPN, MG3, TSH5 ####[facility] [place] [address] Hemoglobin A1con 03-02-2022 HbA1c (Bld) [Mass fraction] 5.8 % Abnormal [facility] Comment on above: Normal less than 5.7 % Prediabetes 5.7% to 6.4% Diabetes 6.5% or higher --HgbA1C levels may not be accurate in patients who have renal disease, received recent blood transfusions, are anemic, or who have dyshemoglobinemia. Interpretation and review of laboratory results Abnormal [facility] Magnesium [Mass/Vol] 120 mg/dL [facility] Test Performed by [address] LAB [facility] Hemogramon 03-02-2022 Erythrocyte distribution width (RBC) [Ratio] 17.1 % High 11.5-14.5 [facility] Comment on above: Performed By: #### H EMOG, BMP3M, FOLT3, LIPD2, HA1C2, B12, TROPN, MG3, TSH5 #### [address] Hematocrit (Bld) [Volume fraction] 37.0 % Normal 35.0-47.0 [facility] Comment on above: Performed By: #### H EMOG, BMP3M, FOLT3, LIPD2, HA1C2, B12, TROPN, MG3, TSH5 #### [address] Hemoglobin (Bld) [Mass/Vol] 12.1 g/dL Normal 11.7-16.0 [facility] Comment on above: Performed By: #### H EMOG, BMP3M, FOLT3, LIPD2, HA1C2, B12, TROPN, MG3, TSH5 #### [place] [address] MCH (RBC) [Entitic mass] 28.9 pg Normal 26.0-34.0 [facility] Comment on above: Performed By: #### H EMOG, BMP3M, FOLT3, LIPD2, HA1C2, B12, TROPN, MG3, TSH5 #### [address] [address] [place], [place] MCHC 32.6 % Normal 32.0-36.0 [facility] Comment on above: Performed By: #### H EMOG, BMP3M, FOLT3, LIPD2, HA1C2, B12, TROPN, MG3, TSH5 #### [address] MCV (RBC) [Entitic vol] 88.6 fL Normal 79.0-98.0 [facility] Comment on above: Performed By: #### H EMOG, BMP3M, FOLT3, LIPD2, HA1C2, B12, TROPN, MG3, TSH5 #### [address] Platelet mean volume (Bld) [Entitic vol] 7.9 fL Normal 7.4-12.4 [facility] Comment on above: Result Comment: MPV is a calculated measurement using platelet volume ratio. Performed By: #### H EMOG, BMP3M, FOLT3, LIPD2, HA1C2, B12, TROPN, MG3, TSH5 #### [address] Platelets (Bld) [#/Vol] 269 10*3/uL Normal 140-440 [facility] Comment on above: Performed By: #### H EMOG, BMP3M, FOLT3, LIPD2, HA1C2, B12, TROPN, MG3, TSH5 #### [address] RBC (Bld) [#/Vol] 4.18 10*6/uL Normal 3.80-5.20 [facility] Comment on above: Performed By: #### H EMOG, BMP3M, FOLT3, LIPD2, HA1C2, B12, TROPN, MG3, TSH5 #### [address] [address] [place], [place] WBC (Bld) [#/Vol] 9.4 10*3/uL Normal 3.6-10.7 [facility] Comment on above: Performed By: #### H EMOG, BMP3M, FOLT3, LIPD2, HA1C2, B12, TROPN, MG3, TSH5 #### [address] [address] [place], [place] Lipid Panelon 03-02-2022 Chol/HDL 8 Normal [facility] Comment on above: Result Comment: Ref Range: < 3 Low Risk for CHD 3-6 Mod Risk for CHD > 6 High Risk for CHD Performed By: #### H EMOG, BMP3M, FOLT3, LIPD2, HA1C2, B12, TROPN, MG3, TSH5 #### [address] [address] [place], [place] Cholesterol in HDL [Mass/Vol] 30 mg/dL Low 40-60 [facility] Comment on above: Performed By: #### H EMOG, BMP3M, FOLT3, LIPD2, HA1C2, B12, TROPN, MG3, TSH5 #### [address] [address] [place], [place] Low Density Lipoprotein 174 mg/dL Abnormal <100 [facility] Comment on above: Performed By: #### H EMOG, BMP3M, FOLT3, LIPD2, HA1C2, B12, TROPN, MG3, TSH5 #### [address] Triglyceride [Mass/Vol] 176 mg/dL Abnormal <150 [facility] Comment on above: Performed By: #### H EMOG, BMP3M, FOLT3, LIPD2, HA1C2, B12, TROPN, MG3, TSH5 #### [address] [address] [place], [place] Cholesterol [Mass/Vol] 239 mg/dL Abnormal < 200 [facility] Comment on above: Performed By: #### H EMOG, BMP3M, FOLT3, LIPD2, HA1C2, B12, TROPN, MG3, TSH5 #### [address] [address] Lipid panel - fastingon 02-07 Cholesterol [Mass/Vol] 239 mg/dL Abnormal <200 [facility] Cholesterol in HDL [Mass/Vol] 30 mg/dL Low 40 - 60 mg/dL [facility] Cholesterol in LDL [Mass/Vol] 174 mg/dL Abnormal <100 [facility] Cholesterol.total/Willow sterol in HDL [Mass ratio] 8 {ratio} [facility] Comment on above: Ref Range: < 3 Low Risk for CHD 3-6 Mod Risk for CHD > 6 High Risk for CHD Triglyceride [Mass/Vol] 176 mg/dL Abnormal <150 [facility] Magnesiumon 03-02-2022 Magnesium [Mass/Vol] 2.0 mg/dL Normal 1.6-2.3 [facility] Comment on above: Performed By: #### H EMOG, BMP3M, FOLT3, LIPD2, HA1C2, B12, TROPN, MG3, TSH5 ####[facility] [place] [id number] Magnesium [Mass/Vol] 2.0 mg/dL 1.6 - 2 .3 mg/dL [facility] Test Performed by [facility], [address] [place] [address] LAB [facility] No Panel Informationon 03-02 Interpretation and review of laboratory results Abnormal [facility] Test Performed by [address] LAB [facility] Radiology Study observation (narrative) [facility] Work Phone: TSHon 03-02-2022 TSH Qn 3.303 u[IU]/mL 0.465 - 4.680 u[IU]/mL [facility] Test Performed by [facility], [address] [place] [id number] [place] [address] LAB [facility] Thyroid Stim. Hormoneon 02-07 Thyroid Stim. Hormone 3.303 u[IU]/mL Normal 0.465-4.68 0 [facility] Comment on above: Performed By: #### H EMOG, BMP3M, FOLT3, LIPD2, HA1C2, B12, TROPN, MG3, TSH5 ####[id number] [place], [place] [id number] Troponinon 03-02-2022 Troponin I.cardiac [Mass/Vol] 0.014 ng/mL 0.000 - 0.034 ng/mL [facility] Comment on above: . Test Performed by [id number] [place] [address] LAB [facility] Troponin Ion 03-02-2022 Troponin I.cardiac [Mass/Vol] 0.014 ng/mL Normal 0.000-0.034 [facility] Comment on above: Result Comment: . Performed By: #### H EMOG, BMP3M, FOLT3, LIPD2, HA1C2, B12, TROPN, MG3, TSH5 ####[id number] [place] [address] Vitamin B12on 03-02-2022 Cobalamin (Vitamin B12) [Mass/Vol] 268 pg/mL Normal 239-931 [facility] Comment on above: Performed By: #### H EMOG, BMP3M, FOLT3, LIPD2, HA1C2, B12, TROPN, MG3, TSH5 ####[id number] [place] [address] Cobalamin (Vitamin B12) [Mass/Vol] 268 pg/mL 239 - 931 pg/mL [facility] Test Performed by [id number] [place] [address] LAB [facility] AP[facility]on 03-01-2022 aPTT Coag (Bld) [Time] 27.6 s Normal 20.0-30.5 [facility] Comment on above: Result Comment: NOTE : The therapeutic time for Heparin anticoagulation, based on Xa activity inhibition, is an APTT of 46-80 seconds. Performed By: #### C MP3M, HEMDF, TROPN, PT, APTT #### [facility] [address] [place] [address] aPTT Coag (Bld) [Time] 27.6 s 20.0 - 30.5 s [facility] Comment on above: NOTE: The therapeuti c time for Heparin anticoagulation, based on Xa activity inhibition, is an APTT of 46-80 seconds. CBC Auto Differentialon 02-07 Absolute Baso # 0.0 10*3/uL 0.0 - 0.2 10*3/uL [facility] Absolute Neut # 6.9 10*3/uL 1.8 - 7.0 10*3/uL [facility] Basophils/100 WBC (Bld) 0.3 % 0.0 - 2.0 % [facility] Eosinophils (Bld) [#/Vol] 0.1 10*3/uL 0.0 - 0.5 10*3/uL [facility] Eosinophils/100 WBC (Bld) 0.9 % Low 1.0 - 6.0 % [facility] Granulocytes/100 WBC (Bld) 72.4 % 40.0 - 80.0 % [facility] Hematocrit (Bld) [Volume fraction] 39.3 % 35.0 - 47.0 % [facility] Hemoglobin (Bld) [Mass/Vol] 12.7 g/dL 11.7 - 16.0 g/dL [facility] Interpretation and review of laboratory results Abnormal [facility] Lymphocytes (Bld) [#/Vol] 1.9 10*3/uL 1.0 - 4.3 10*3/uL [facility] Lymphocytes/100 WBC (Bld) 20.1 % 20.0 - 40.0 % [facility] MCH (RBC) [Entitic mass] 28.5 pg 26.0 - 34.0 pg [facility] MCHC (RBC) [Mass/Vol] 32.3 % 32.0 - 36.0 % [facility] MCV (RBC) [Entitic vol] 88.3 fL 79.0 - 98.0 fL [facility] Monocytes (Bld) [#/Vol] 0.6 10*3/uL 0.0 - 0.8 10*3/uL [facility] Monocytes/100 WBC (Bld) 5.9 % 2.0 - 10.0 % [facility] Platelet distribution width (Bld) [Ratio] 15.4 % High 11.5 - 14.5 % [facility] Platelet mean volume (Bld) [Entitic vol] 9.9 fL 7.4 - 12.4 fL [facility] Comment on above: MPV is a calculated measurement using platelet volume ratio. Platelets (Bld) [#/Vol] 294 10*3/uL 140 - 440 10*3/uL [facility] RBC (Bld) [#/Vol] 4.45 10*6/uL 3.80 - 5.2 0 10*6/uL [facility] WBC (Bld) [#/Vol] 9.6 10*3/uL 3.6 - 10.7 10*3/uL [facility] Test Performed by [facility], [address] , [address] HEAD WO CONTRASTon 2021 Patient Name: BRADLEY MATOS Computed Tomography ACCESSION EXAM DATE/TIME PROCEDURE ORDERING PROVIDER [id number] 03/01/2022 20:[address] Head or Brain w/o [id number] -LAFALEKSANDRA, Chema CORDERO CPT code 38273 Reason For Exam (CT Head or Brain w/o Contrast) stroke symptoms Report CT HEAD: CLINICAL INDICATION: Left-sided weakness TECHNIQUE: Transaxial CT sequence performed through the head with 3 mm reconstruction. Sagittal and Coronal reconstruction images included. Dose reduction employed with automated exposure control. COMPARISON: 12/17/2018 FINDINGS: There is some artifact in the vertical orientation in the right parasagittal region as noted on coronal image 34. Ventricles and Extra-axial spaces: Normal in size and morphology for the patient's age. No abnormal extracerebral collection identified. Cerebral and cerebellar parenchyma: No attenuation focus in the right caudate is likely an old lacunar infarct which occurred since the prior examination. No other focal lesion is identified throughout the cerebrum or cerebellum. Hemorrhage: None Brainstem: Normal Visualized Paranasal sinuses: Normal. Mastoid air cells: Normal Visualized Orbits: Normal Calvarium and skull base: Normal IMPRESSION: Old lacunar infarct in the right caudate. No other new intracranial abnormality. Computed Tomography Report Report Dictated on --- Final --- Dictating Physician: MD GAMBOA JEFFREY Signed Date and Time: 03/01/2022 9:39 pm Signed by: MD GAMBOA JEFFREY Transcribed Date and Time: 03/01/2022 9:40 [facility] RAD Andreas Gamboa MD - 03/01/2022 Patient Name: BRADLEY MATOS Computed Tomography ACCESSION EXAM DATE/TIME PROCEDURE ORDERING PROVIDER [id number] 03/01/2022 20:[address] Head or Brain w/o [id number] -[place], Contrast [facility] CPT code 13706 Reason For Exam (CT Head or Brain w/o Contrast) stroke symptoms Report CT HEAD: CLINICAL INDICATION: Left-sided weakness TECHNIQUE: Transaxial CT sequence performed through the head with 3 mm reconstruction. Sagittal and Coronal reconstruction images included. Dose reduction employed with automated exposure control. COMPARISON: 12/17/2018 FINDINGS: There is some artifact in the vertical orientation in the right parasagittal region as noted on coronal image 34. Ventricles and Extra-axial spaces: Normal in size and morphology for the patient's age. No abnormal extracerebral collection identified. Cerebral and cerebellar parenchyma: No attenuation focus in the right caudate is likely an old lacunar infarct which occurred since the prior examination. No other focal lesion is identified throughout the cerebrum or cerebellum. Hemorrhage: None Brainstem: Normal Visualized Paranasal sinuses: Normal. Mastoid air cells: Normal Visualized Orbits: Normal Calvarium and skull base: Normal IMPRESSION: Old lacunar infarct in the right caudate. No other new intracranial abnormality. Computed Tomography Report Report Dictated on --- Final --- Dictating Physician: MD GAMBOA JEFFREY Signed Date and Time: 03/01/2022 9:39 pm Signed by: MD GAMBOA JEFFREY Transcribed Date and Time: 03/01/2022 9:40 [facility] Work Phone: Radiology Study observation (narrative) [facility] Work Phone: CT HEAD WO CONTRASTOrdered B y: Andreas Gamboa on 03-01-2022 [facility] Work Phone: CT Head or Brain w/o Contras ton 03-01-2022 CT Head or Brain w/o Contrast Patient Name: BRADLEY MATOS Computed Tomography ACCESSION EXAM DATE/TIME PROCEDURE ORDERING PROVIDER [id number] 03/01/2022 20:[address] Head or Brain w/o [id number] -MARCO AChema [facility] CPT code 02894 Reason For Exam (CT Head or Brain w/o Contrast) stroke symptoms Report CT HEAD: CLINICAL INDICATION: Left-sided weakness TECHNIQUE: Transaxial CT sequence performed through the head with 3 mm reconstruction. Sagittal and Coronal reconstruction images included. Dose reduction employed with automated exposure control. COMPARISON: 12/17/2018 FINDINGS: There is some artifact in the vertical orientation in the right parasagittal region as noted on coronal image 34. Ventricles and Extra-axial spaces: Normal in size and morphology for the patient's age. No abnormal extracerebral collection identified. Cerebral and cerebellar parenchyma: No attenuation focus in the right caudate is likely an old lacunar infarct which occurred since the prior examination. No other focal lesion is identified throughout the cerebrum or cerebellum. Hemorrhage: None Brainstem: Normal Visualized Paranasal sinuses: Normal. Mastoid air cells: Normal Visualized Orbits: Normal Calvarium and skull base: Normal IMPRESSION: Old lacunar infarct in the right caudate. No other new intracranial abnormality. Computed Tomography Report Report Dictated on Final Dictating Physician: MD GAMBOA JEFFREY Signed Date and Time: 03/01/2022 9:39 pm Signed by: MD GAMBOA JEFFREY Transcribed Date and Time: 03/01/2022 9:40 Normal [facility] Comp Panel with Mg Reflexon 03-01-2022 ALP [Catalytic activity/Vol] 76 U/L Normal 38-126 [facility] Comment on above: Performed By: #### C MP3M, HEMDF, TROPN, PT, APTT #### [facility] [address] [place] [address] ALT [Catalytic activity/Vol] 19 U/L Normal 0-34 [facility] Comment on above: Result Comment: The ALT test is performed by an updated assay method. Please note that the reference intervals have been changed and are now sex specific. Performed By: #### C MP3M, HEMDF, TROPN, PT, APTT #### [facility] [address] [place] [address] Anion gap [Moles/Vol] 8 mmol/L Normal 3-13 [facility] Comment on above: Performed By: #### C MP3M, HEMDF, TROPN, PT, APTT #### [facility] [address] [place] [address] AST [Catalytic activity/Vol] 34 U/L Normal 15-46 [facility] Comment on above: Performed By: #### C MP3M, HEMDF, TROPN, PT, APTT #### [facility] [address] [place] [address] Calcium [Mass/Vol] 9.1 mg/dL Normal 8.4-10.4 [facility] Comment on above: Performed By: #### C MP3M, HEMDF, TROPN, PT, APTT #### [facility] [address] [place] [address] CO2 [Moles/Vol] 27 mmol/L Normal 22-30 [facility] Comment on above: Performed By: #### C MP3M, HEMDF, TROPN, PT, APTT #### [facility] [address] [place] [address] Glucose [Mass/Vol] 127 mg/dL High 70-100 [facility] Comment on above: Performed By: #### C MP3M, HEMDF, TROPN, PT, APTT #### [facility] [address] [place] [address] Protein [Mass/Vol] 8.3 g/dL High 6.3-8.2 [facility] Comment on above: Performed By: #### C MP3M, HEMDF, TROPN, PT, APTT #### [facility] [address] [place] [address] Urea nitrogen [Mass/Vol] 11 mg/dL Normal 9-20 [facility] Comment on above: Performed By: #### C MP3M, HEMDF, TROPN, PT, APTT #### [facility] [address] [place] [address] Bilirubin [Mass/Vol] 0.9 mg/dL Normal 0.2-1.3 [facility] Comment on above: Performed By: #### C MP3M, HEMDF, TROPN, PT, APTT #### [facility] [address] [place] [address] Creatinine [Mass/Vol] 0.72 mg/dL Normal 0.52-1.25 [facility] Comment on above: Performed By: #### C MP3M, HEMDF, TROPN, PT, APTT #### [facility] [address] [place] [address] eGFR OTHER > 90.0 Normal >60 [facility] Comment on above: Result Comment: KDIG O guidelines provide the following GFR categories: Stage GFR(ml/min/1.73 m2) Terms G1 >=90 Normal or high G2 60-89 Mildly decreased* G3a 45-59 Mildly to moderately decreased G3b 30-44 Moderately to severely decreased G4 15-29 Severely decreased G5 <15 Kidney failure *Relative to young adult level. In the absence of evidence of kidney damage, neither GFR category G1 nor G2 fulfill the criteria for CKD. The CKD-EPI equation is validated in individuals 18 years of age and older. Currently the best equation for estimating glomerular filtration rate (GFR) from serum creatinine in children is the Bedside Loomis equation. It is less accurate in patients with extremes of muscle mass, restriction of dietary protein, ingestion of creatine, extra-renal metabolism of creatinine, or treatment with medications that affect renal tubular creatinine secretion. Performed By: #### C MP3M, HEMDF, TROPN, PT, APTT #### [facility] [address] [place] [address] GFR/1.73 sq M.predicted among blacks MDRD (S/P/Bld) [Vol rate/Area] mL/min/{1.73_m2} Normal >60 [facility] Comment on above: Performed By: #### C MP3M, HEMDF, TROPN, PT, APTT #### [facility] [address] [facility] [address] [address] Albumin [Mass/Vol] 4.3 g/dL Normal 3.5-5.0 [facility] Comment on above: Performed By: #### C MP3M, HEMDF, TROPN, PT, APTT #### [facility] [address] [place] [address] Chloride [Moles/Vol] 103 mmol/L Normal 98-107 [facility] Comment on above: Performed By: #### C MP3M, HEMDF, TROPN, PT, APTT #### [facility] [address] [place] [address] Potassium [Moles/Vol] 3.9 mmol/L Normal 3.5-5.1 [facility] Comment on above: Performed By: #### C MP3M, HEMDF, TROPN, PT, APTT #### [facility] [address] [place] [address] Sodium [Moles/Vol] 139 mmol/L Normal 135-145 [facility] Comment on above: Performed By: #### C MP3M, HEMDF, TROPN, PT, APTT #### [facility] [address] [place] [address] Complete Urinalysison 2021 Bacteria LM.HPF (Urine sed) [#/Area] Negative Normal Negative [facility] Comment on above: Result Comment: . Performed By: #### C UA2 #### [facility] [address] [place] [address] Mucous Threads Few Normal Negative [facility] Comment on above: Result Comment: . Performed By: #### C UA2 #### [facility] [address] [place] [address] RBC, Urine 0 - 2 Normal 0-2 [facility] Comment on above: Result Comment: . Performed By: #### C UA2 #### [facility] [address] [place] [address] Squamous Epithelial 0 - 2 Normal 3-5 [facility] Comment on above: Result Comment: . Performed By: #### C UA2 #### [facility] [address] [place] [address] VOLUME, URINE 12 ml Normal [facility] Comment on above: Result Comment: . Performed By: #### C UA2 #### [facility] [address] [place] [address] WBC, Urine 3 - 5 Normal 0-5 [facility] Comment on above: Result Comment: . Performed By: #### C UA2 #### [facility] [address] [place] [address] Appearance (U) Clear Normal Clear [facility] Comment on above: Result Comment: . Performed By: #### C UA2 #### [facility] [address] [place] [address] Bilirubin,Urine Negative Normal Negative [facility] Comment on above: Result Comment: . Performed By: #### C UA2 #### [facility] [address] [place] [address] Color (U) YELLOW Normal Lt. Yellow [facility] Comment on above: Result Comment: . Performed By: #### C UA2 #### [facility] [address] [place] [address] Glucose Ql (U) Normal Normal Normal (<70) [facility] Comment on above: Result Comment: . Performed By: #### C UA2 #### [facility] [address] [place] [address] Ketone,Urine Negative Normal Negative [facility] Comment on above: Result Comment: . Performed By: #### C UA2 #### [facility] [address] [place] [address] Leukocytes,Urine Negative Normal Negative [facility] Comment on above: Result Comment: . Performed By: #### C UA2 #### [facility] [address] [place] [address] Nitrites,Urine Negative Normal Negative [facility] Comment on above: Result Comment: . Performed By: #### C UA2 #### [facility] [address] [place] [address] Occult Blood,Urine Negative Normal Negative [facility] Comment on above: Result Comment: . Performed By: #### C UA2 #### [facility] [address] [place] [address] pH,Urine 6.5 Normal 5.0-8.0 [facility] Comment on above: Result Comment: . Performed By: #### C UA2 #### [facility] [address] [place] [address] Protein (U) [Mass/Vol] 30 mg/dL Abnormal Negative [facility] Comment on above: Result Comment: . Performed By: #### C UA2 #### [facility] [address] [place] [address] Specific [place],Urine 1.023 Normal 1.005 - 1.030 [facility] Comment on above: Result Comment: . Performed By: #### C UA2 #### [facility] [address] [place] [address] Urobilinogen,Urine 2 mg/dL Abnormal Normal (0-1) [facility] Comment on above: Result Comment: . Performed By: #### C UA2 #### [facility] [address] [place] [address] Comprehensive Metabolic Pane l w/ Reflex to MGon 03-01-2022 Albumin [Mass/Vol] 4.3 g/dL 3.5 - 5.0 g/dL [facility] ALP (Bld) [Catalytic activity/Vol] 76 U/L 38 - 126 U/L [facility] ALT [Catalytic activity/Vol] 19 U/L 0 - 34 U/L [facility] Comment on above: The ALT test is perf ormed by an updated assay method. Please note that the reference intervals have been changed and are now sex specific. Anion gap [Moles/Vol] 8 mmol/L 3 - 13 mmol/L [facility] AST [Catalytic activity/Vol] 34 U/L 15 - 46 U/L [facility] Bilirubin [Mass/Vol] 0.9 mg/dL 0.2 - 1 .3 mg/dL [facility] Calcium [Mass/Vol] 9.1 mg/dL 8.4 - 10. 4 mg/dL [facility] Chloride [Moles/Vol] 103 mmol/L 98 - 10 7 mmol/L [facility] CO2 [Moles/Vol] 27 mmol/L 22 - 30 mmol/L [facility] Creatinine [Mass/Vol] 0.72 mg/dL 0.52 - 1.25 mg/dL [facility] EGFR IF NonAfrican Bhutanese >90.0 >60 mL/min [facility] Comment on above: KDIGO guidelines pro vide the following GFR categories: Stage GFR(ml/min/1.73 m2) Terms G1 >=90 Normal or high G2 60-89 Mildly decreased* G3a 45-59 Mildly to moderately decreased G3b 30-44 Moderately to severely decreased G4 15-29 Severely decreased G5 <15 Kidney failure *Relative to young adult level. In the absence of evidence of kidney damage, neither GFR category G1 nor G2 fulfill the criteria for CKD. The CKD-EPI equation is validated in individuals 18 years of age and older. Currently the best equation for estimating glomerular filtration rate (GFR) from serum creatinine in children is the Bedside Loomis equation. It is less accurate in patients with extremes of muscle mass, restriction of dietary protein, ingestion of creatine, extra-renal metabolism of creatinine, or treatment with medications that affect renal tubular creatinine secretion. Free PSA/Total PSA [Mass fraction] 8.3 g/dL High 6.3 - 8.2 g/dL [facility] GFR/1.73 sq M.predicted among blacks MDRD (S/P/Bld) [Vol rate/Area] mL/min/{1.73_m2} >60 mL/min [facility] Glucose [Mass/Vol] 127 mg/dL High 70 - 100 mg/dL [facility] Interpretation and review of laboratory results Abnormal [facility] Potassium [Moles/Vol] 3.9 mmol/L 3.5 - 5.1 mmol/L [facility] Sodium [Moles/Vol] 139 mmol/L 135 - 145 mmol/L [facility] Urea nitrogen (BldV) [Mass/Vol] 11 mg/dL 9 - 20 mg/dL [facility] Test Performed by [facility], [address] [place] [address] LAB [facility] E[facility] 12 Lead if not already d one by deborah 03-01-2022 [facility] Test Date: 2022-03-01 Pat Name: BRADLEY MATOS Department: EMERGENCY Room: 02 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1965 Requested By: VAHE STRICKLAND Order Number: [id number] Reading MD: Vahe Strickland Measurements Intervals [place] Rate: 90 P: 0 NV: 61 QRS: -24 QRSD: 96 T: 21 QT: 369 QTc: 453 Interpretive Statements Sinus rhythm Short NV interval Borderline left axis deviation Abnormal R-wave progression, late transition No previous ECG available for comparison Electronically Signed On 03-01-2022 20:04:29 EDT by Vahe Strickland [facility] Vahe Strickland MD - 03/01/2022 [facility] Test Date: 2022-03-01 Pat Name: BRADLEY MATOS Department: EMERGENCY Room: 02 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1965 Requested By: VAHE STRICKLAND Order Number: [id number] Reading MD: Vahe Strickland Measurements Intervals [place] Rate: 90 P: 0 NV: 61 QRS: -24 QRSD: 96 T: 21 QT: 369 QTc: 453 Interpretive Statements Sinus rhythm Short NV interval Borderline left axis deviation Abnormal R-wave progression, late transition No previous ECG available for comparison Electronically Signed On 03-01-2022 20:04:29 EDT by Vahe Strickland [facility] Work Phone: [facility] Work Phone: Glucose,Bedsideon 03-01-2022 Glucose [Mass/Vol] 113 mg/dL High 70-100 [facility] Comment on above: Result Comment: Test performed by glucose meter. Results may be 10%-15% lower than serum/plasma values. (CLIA ID [id number]) Performed By: #### B GLU #### [facility] [address] [place] [address] Hemogram w/ Autodiffon 03-01 Abs Baso Cnt 0.0 10*3/uL Normal 0.0-0.2 [facility] Comment on above: Performed By: #### C MP3M, HEMDF, TROPN, PT, APTT #### [facility] [address] [place] [address] Abs Neutrophile Cnt 6.9 10*3/uL Normal 1.8-7.0 [facility] Comment on above: Performed By: #### C MP3M, HEMDF, TROPN, PT, APTT #### [facility] [address] [place] [address] Basophils/100 WBC (Bld) 0.3 % Normal 0.0-2.0 [facility] Comment on above: Performed By: #### C MP3M, HEMDF, TROPN, PT, APTT #### [facility] [address] [place] [address] Eosinophils (Bld) [#/Vol] 0.1 10*3/uL Normal 0.0-0.5 [facility] Comment on above: Performed By: #### C MP3M, HEMDF, TROPN, PT, APTT #### [facility] [address] [place] [address] Eosinophils/100 WBC (Bld) 0.9 % Low 1.0-6.0 [facility] Comment on above: Performed By: #### C MP3M, HEMDF, TROPN, PT, APTT #### [facility] [address] [place] [address] Erythrocyte distribution width (RBC) [Ratio] 15.4 % High 11.5-14.5 [facility] Comment on above: Performed By: #### C MP3M, HEMDF, TROPN, PT, APTT #### [facility] [address] [place] [address] Granulocytes/100 WBC (Bld) 72.4 % Normal 40.0-80.0 [facility] Comment on above: Performed By: #### C MP3M, HEMDF, TROPN, PT, APTT #### [facility] [address] [place] [address] Hematocrit (Bld) [Volume fraction] 39.3 % Normal 35.0-47.0 [facility] Comment on above: Performed By: #### C MP3M, HEMDF, TROPN, PT, APTT #### [facility] [address] [place] [address] Hemoglobin (Bld) [Mass/Vol] 12.7 g/dL Normal 11.7-16.0 [facility] Comment on above: Performed By: #### C MP3M, HEMDF, TROPN, PT, APTT #### [facility] [address] [place] [address] Lymphocytes (Bld) [#/Vol] 1.9 10*3/uL Normal 1.0-4.3 [facility] Comment on above: Performed By: #### C MP3M, HEMDF, TROPN, PT, APTT #### [facility] [address] [place] [address] Lymphocytes/100 WBC (Bld) 20.1 % Normal 20.0-40.0 [facility] Comment on above: Performed By: #### C MP3M, HEMDF, TROPN, PT, APTT #### [facility] [address] [place] [address] MCH (RBC) [Entitic mass] 28.5 pg Normal 26.0-34.0 [facility] Comment on above: Performed By: #### C MP3M, HEMDF, TROPN, PT, APTT #### [facility] [address] [place] [address] MCHC 32.3 % Normal 32.0-36.0 [facility] Comment on above: Performed By: #### C MP3M, HEMDF, TROPN, PT, APTT #### [facility] [address] [place] [address] MCV (RBC) [Entitic vol] 88.3 fL Normal 79.0-98.0 [facility] Comment on above: Performed By: #### C MP3M, HEMDF, TROPN, PT, APTT #### [facility] [address] [place] [address] Monocytes (Bld) [#/Vol] 0.6 10*3/uL Normal 0.0-0.8 [facility] Comment on above: Performed By: #### C MP3M, HEMDF, TROPN, PT, APTT #### [facility] [address] [place] [address] Monocytes/100 WBC (Bld) 5.9 % Normal 2.0-10.0 [facility] Comment on above: Performed By: #### C MP3M, HEMDF, TROPN, PT, APTT #### [facility] [address] [place] [address] Platelet mean volume (Bld) [Entitic vol] 9.9 fL Normal 7.4-12.4 [facility] Comment on above: Result Comment: MPV is a calculated measurement using platelet volume ratio. Performed By: #### C MP3M, HEMDF, TROPN, PT, APTT #### [facility] [facility] [address] [place] [address] Platelets (Bld) [#/Vol] 294 10*3/uL Normal 140-440 [facility] Comment on above: Performed By: #### C MP3M, HEMDF, TROPN, PT, APTT #### [facility] [address] [place] [address] RBC (Bld) [#/Vol] 4.45 10*6/uL Normal 3.80-5.20 [facility] Comment on above: Performed By: #### C MP3M, HEMDF, TROPN, PT, APTT #### [facility] [address] [place] [address] WBC (Bld) [#/Vol] 9.6 10*3/uL Normal 3.6-10.7 [facility] Comment on above: Performed By: #### C MP3M, HEMDF, TROPN, PT, APTT #### [facility] [address] [place] [address] No Panel Informationon 03-01 Test Performed by [facility], [facility] [address] , [place], [place] [id number] [place] [address] LAB [facility] POCT Glucoseon 03-01-2022 Glucose [Mass/Vol] 113 mg/dL High 70 - 100 mg/dL [facility] Comment on above: Test performed by ucose meter. Results may be 10%-15% lower than serum/plasma values. (CLIA ID [id number]) Interpretation and review of laboratory results Abnormal [facility] Test Performed by [facility], [address] LAB [facility] Glucose [Mass/Vol] 113 mg/dL [facility] Work Phone: Interpretation and review of laboratory results Normal [facility] Work Phone: QC OK? yes [facility] Work Phone: Prothrombin Timeon 2 INR 1.0 Normal 0.9-1.1 [facility] Comment on above: Result Comment: Campbell mmended Anticoagulant Therapy: SEE BELOW ----- INR of 2.0 - 3.0 : - Prophylaxis of Venous Thrombosis (high-risk surgery) - Treatment of Venous Thrombosis - Treatment of Pulmonary Embolism (Includes tissue heart valves, Acute Myocardial Infarction to prevent systemic embolism, Valvular Heart Disease, and Atrial Fibrillation) ----- INR of 2.5 - 3.5 : - Mechanical Prosthetic Valves (high risk) - If oral anticoagulant therapy is used to prevent Myocardial Infarction Performed By: #### C MP3M, HEMDF, TROPN, PT, APTT #### [facility] [address] [facility] [address] [place] [address] PT Coag (PPP) [Time] 10.3 s Normal 9.0-12.0 [facility] Comment on above: Result Comment: . Performed By: #### C MP3M, HEMDF, TROPN, PT, APTT #### [facility] [address] [facility] [address] [place] [address] Protime-INRon 03-01-2022 INR Coag (Bld) [Relative time] 1.0 {INR} [facility] Comment on above: Recommended Anticoag ulant Therapy: SEE BELOW ----- INR of 2.0 - 3.0 : - Prophylaxis of Venous Thrombosis (high-risk surgery) - Treatment of Venous Thrombosis - Treatment of Pulmonary Embolism (Includes tissue heart valves, Acute Myocardial Infarction to prevent systemic embolism, Valvular Heart Disease, and Atrial Fibrillation) ----- INR of 2.5 - 3.5 : - Mechanical Prosthetic Valves (high risk) - If oral anticoagulant therapy is used to prevent Myocardial Infarction PT Coag (PPP) [Time] 10.3 s 9.0 - 1 2.0 s [facility] Comment on above: . Troponinon 03-01-2022 Troponin I.cardiac [Mass/Vol] ng/mL 0.000 - 0.034 ng/mL [facility] Comment on above: . Test Performed by [facility], [address] , [address] LAB [facility] Troponin Ion 03-01-2022 Troponin I.cardiac [Mass/Vol] ng/mL Normal 0.000-0.034 [facility] Comment on above: Result Comment: . Performed By: #### C MP3M, HEMDF, TROPN, PT, APTT #### [facility] [address] [place] [address] Urinalysison 03-01-2022 Appearance (U) Clear Clear NA [facility] Comment on above: . Bacteria, UA Negative Negative /[HPF] [facility] Comment on above: . Bilirubin Urine Negative Negative mg/dL [facility] Comment on above: . Color (U) YELLOW Lt. Yellow NA [facility] Comment on above: . Glucose, Ur Normal Normal (<70) mg/dL [facility] Comment on above: . Interpretation and review of laboratory results Abnormal [facility] Ketones Ql (U) Negative Negative mg/dL [facility] Comment on above: . LEUKOCYTES, UA Negative Negative Stephani/uL [facility] Comment on above: . Mucous Threads Few Negative /[LPF] [facility] Comment on above: . Nitrite, Urine Negative Negative NA [facility] Comment on above: . Occult Blood,Urine Negative Negative mg/dL [facility] Comment on above: . pH (U) 6.5 [pH] [facility] Comment on above: . Protein (U) [Mass/Vol] 30 mg/dL Abnormal Negative [facility] Comment on above: . RBC, UA 0-2 0 - 2 /[HPF] [facility] Comment on above: . Specific [place], Urine [address] [facility] Comment on above: . Squam Epithel, UA 0-2 3 - 5 /[HPF] [facility] Comment on above: . Urobilinogen, Urine 2 mg/dL Abnormal Normal (0-1) [facility] Comment on above: . Volume 12 ml [facility] Comment on above: . WBC, UA 3-5 0 - 5 /[HPF] [facility] Comment on above: . Test Performed by [facility], [address] LAB [facility] CR Chest PA/LATon 10-10-2021 CR Chest PA/LAT Patient Name: BRADLEY MATOS Diagnostic Radiology ACCESSION EXAM DATE/TIME PROCEDURE ORDERING PROVIDER [id number] 10/10/2021 15:35 EST CR Chest PA and LAT ARGELIA GARCIA CPT code 55976 Reason For Exam (CR Chest PA and LAT) ongoing cough with fever Report CHEST, PA and LATERAL: INDICATION: Cough COMPARISON: 12/17/2018 PA and lateral views of the chest were obtained. The heart is normal in size. The mediastinal silhouette is normal. The lungs are clear. There are no effusions or infiltrates. There is no pleural thickening. The osseous structures are unremarkable. IMPRESSION: Negative chest. Report Dictated on Final Dictated: 10/10/2021 4:06 pm Dictating Physician: DO HAYES ALFRED Signed Date and Time: 10/10/2021 4:07 pm Signed by: DO HAYES ALFRED Transcribed Date and Time: 10/10/2021 4:06 Normal [facility] CR Knee 1 or 2 Views Bilater darrian 08-08-2021 CR Knee 1 or 2 Views Bilateral Patient Name: BRADLEY MATOS Diagnostic Radiology ACCESSION EXAM DATE/TIME PROCEDURE ORDERING PROVIDER [id number] 08/08/2021 15:13 EST CR Knee 1 or 2 Views MD OLIVER, MAXINE Tomas Bilateral CPT code 55888 Reason For Exam (CR Knee 1 or 2 Views Bilateral) pain Report EXAMINATION: XR bilateral knees. EXAM DATE and TIME: 08/08/2021 3:13 PM EST INDICATION: pain ADDITIONAL INFORMATION: 56-year-old female bilateral knee pain presents for evaluation COMPARISON: 02/11/2020 TECHNIQUE: AP, tunnel, lateral and sunrise views of the knees were obtained. FINDINGS: No acute fracture or traumatic dislocation is identified. 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 There is also severe patellofemoral osteoarthritis. In the left knee, there is end-stage lateral femorotibial osteoarthritis as evidenced by complete loss of joint space, subchondral sclerosis and cystic formation and marginal osteophytosis. There is also severe patellofemoral osteoarthritis. Vascular calcifications are noted. IMPRESSION: No acute osseous abnormality identified. End-stage osteoarthritis bilaterally as described. Report Dictated on Final Dictating Physician: MD RIOS CHRISTOPHER Signed Date and Time: 08/09/2021 8:59 am Signed by: MD RIOS CHRISTOPHER Transcribed Date and Time: 08/09/2021 9:00 Normal [facility] CR Knee Standing Bilateralon 08-08-2021 CR Knee Standing Bilateral Patient Name: BRADLEY MATOS Diagnostic Radiology ACCESSION EXAM DATE/TIME PROCEDURE ORDERING PROVIDER [id number] 08/08/2021 15:13 EST CR Knee Standing AP MD OLIVER, MAXINE Tomas Bilateral CPT code 32048 Reason For Exam (CR Knee Standing AP Bilateral) pain Report EXAMINATION: XR bilateral knees. EXAM DATE and TIME: 08/08/2021 3:13 PM EST INDICATION: pain ADDITIONAL INFORMATION: 56-year-old female bilateral knee pain presents for evaluation COMPARISON: 02/11/2020 TECHNIQUE: AP, tunnel, lateral and sunrise views of the knees were obtained. FINDINGS: No acute fracture or traumatic dislocation is identified. 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 There is also severe patellofemoral osteoarthritis. In the left knee, there is end-stage lateral femorotibial osteoarthritis as evidenced by complete loss of joint space, subchondral sclerosis and cystic formation and marginal osteophytosis. There is also severe patellofemoral osteoarthritis. Vascular calcifications are noted. IMPRESSION: No acute osseous abnormality identified. End-stage osteoarthritis bilaterally as described. Report Dictated on Final Dictating Physician: MD RIOS CHRISTOPHER Signed Date and Time: 08/09/2021 8:59 am Signed by: MD RIOS CHRISTOPHER Transcribed Date and Time: 08/09/2021 9:00 Normal [facility] XR KNEE BILATERAL LIMITEDon 03-02-2020 Patient Name: BRADLEY MATOS ---Diagnostic Radiology--- Exam Date/Time 03/02/2020 10:40:00 EDT Exam CR Knee 1 or 2 Views Bilateral Ordering Physician MD GREGORY, LENCHO MONTANEZ Accession Number [id number] CPT4 Codes 92635 () Reason For Exam pain Report BILATERAL KNEES LEFT KNEE SERIES RIGHT KNEE SERIES CLINICAL INDICATION: Bilateral knee pain Weight-bearing AP and PA flexed views of the bilateral knees were obtained. Lateral and sunrise plain films of the left and right knees were also performed. COMPARISON: Left knee films dated 02/25/2016 FINDINGS: Standing AP and PA flexed views of the bilateral knees demonstrates severe degenerative spurring of the medial and lateral compartments of the left and right knees. There is severe loss of joint space within the medial compartment of the right knee and severe loss of joint space within the lateral compartment of the left knee. No fracture or dislocation of the left knee is identified. Advanced degenerative spurring of the patellofemoral compartment is noted. No joint effusion is seen on the lateral view. Soft tissues are unremarkable. No fracture or dislocation of the right knee is identified. Advanced degenerative spurring of the patellofemoral compartment is noted. There is no joint effusion on the lateral view. Soft tissues are unremarkable. IMPRESSION: No fracture or dislocation of the left knee or right knee is identified. Severe osteoarthritis of the bilateral knees. Report Dictated on --- Final --- Dictating Physician: MD PRESTON JONATHAN R Signed Date and Time: 03/02/2020 10:54 am Signed by: MD PRESTON JONATHAN R Transcribed Date and Time: 03/02/2020 10:56 [facility], [place] [facility] Incoming Radiology Results From [facility] - 03/02/2020 10:56 AM EDT Patient Name: BRADLEY MATOS ---Diagnostic Radiology--- Exam Date/Time 03/02/2020 10:40:00 EDT Exam CR Knee 1 or 2 Views Bilateral Ordering Physician MD GREGORY, LENCHO MONTANEZ Accession Number [id number] CPT4 Codes 55215 () Reason For Exam pain Report BILATERAL KNEES LEFT KNEE SERIES RIGHT KNEE SERIES CLINICAL INDICATION: Bilateral knee pain Weight-bearing AP and PA flexed views of the bilateral knees were obtained. Lateral and sunrise plain films of the left and right knees were also performed. COMPARISON: Left knee films dated 02/25/2016 FINDINGS: Standing AP and PA flexed views of the bilateral knees demonstrates severe degenerative spurring of the medial and lateral compartments of the left and right knees. There is severe loss of joint space within the medial compartment of the right knee and severe loss of joint space within the lateral compartment of the left knee. No fracture or dislocation of the left knee is identified. Advanced degenerative spurring of the patellofemoral compartment is noted. No joint effusion is seen on the lateral view. Soft tissues are unremarkable. No fracture or dislocation of the right knee is identified. Advanced degenerative spurring of the patellofemoral compartment is noted. There is no joint effusion on the lateral view. Soft tissues are unremarkable. IMPRESSION: No fracture or dislocation of the left knee or right knee is identified. Severe osteoarthritis of the bilateral knees. Report Dictated on --- Final --- Dictating Physician: MD PRESTON JONATHAN R Signed Date and Time: 03/02/2020 10:54 am Signed by: MD PRESTON JONATHAN R Transcribed Date and Time: 03/02/2020 10:56 [place], [place] XR Knee Bilateral Standingon 03-02-2020 Patient Name: BRADLEY MATOS ---Diagnostic Radiology--- Exam Date/Time 03/02/2020 10:40:00 EDT Exam CR Knee Standing AP Bilateral Ordering Physician MD GREGORY, LENCHO MONTANEZ Accession Number [id number] CPT4 Codes 12126 () Reason For Exam pain Report BILATERAL KNEES LEFT KNEE SERIES RIGHT KNEE SERIES CLINICAL INDICATION: Bilateral knee pain Weight-bearing AP and PA flexed views of the bilateral knees were obtained. Lateral and sunrise plain films of the left and right knees were also performed. COMPARISON: Left knee films dated 02/25/2016 FINDINGS: Standing AP and PA flexed views of the bilateral knees demonstrates severe degenerative spurring of the medial and lateral compartments of the left and right knees. There is severe loss of joint space within the medial compartment of the right knee and severe loss of joint space within the lateral compartment of the left knee. No fracture or dislocation of the left knee is identified. Advanced degenerative spurring of the patellofemoral compartment is noted. No joint effusion is seen on the lateral view. Soft tissues are unremarkable. No fracture or dislocation of the right knee is identified. Advanced degenerative spurring of the patellofemoral compartment is noted. There is no joint effusion on the lateral view. Soft tissues are unremarkable. IMPRESSION: No fracture or dislocation of the left knee or right knee is identified. Severe osteoarthritis of the bilateral knees. Report Dictated on --- Final --- Dictating Physician: MD PRESTON JONATHAN R Signed Date and Time: 03/02/2020 10:54 am Signed by: MD PRESTON JONATHAN R Transcribed Date and Time: 03/02/2020 10:56 [place], [place] [facility] Incoming Radiology Results From [facility] - 03/02/2020 10:56 AM EDT Patient Name: BRADLEY MATOS ---Diagnostic Radiology--- Exam Date/Time 03/02/2020 10:40:00 EDT Exam CR Knee Standing AP Bilateral Ordering Physician MD GREGORY, LENCHO MONTANEZ Accession Number [id number] CPT4 Codes 26787 () Reason For Exam pain Report BILATERAL KNEES LEFT KNEE SERIES RIGHT KNEE SERIES CLINICAL INDICATION: Bilateral knee pain Weight-bearing AP and PA flexed views of the bilateral knees were obtained. Lateral and sunrise plain films of the left and right knees were also performed. COMPARISON: Left knee films dated 02/25/2016 FINDINGS: Standing AP and PA flexed views of the bilateral knees demonstrates severe degenerative spurring of the medial and lateral compartments of the left and right knees. There is severe loss of joint space within the medial compartment of the right knee and severe loss of joint space within the lateral compartment of the left knee. No fracture or dislocation of the left knee is identified. Advanced degenerative spurring of the patellofemoral compartment is noted. No joint effusion is seen on the lateral view. Soft tissues are unremarkable. No fracture or dislocation of the right knee is identified. Advanced degenerative spurring of the patellofemoral compartment is noted. There is no joint effusion on the lateral view. Soft tissues are unremarkable. IMPRESSION: No fracture or dislocation of the left knee or right knee is identified. Severe osteoarthritis of the bilateral knees. Report Dictated on --- Final --- Dictating Physician: MD PRESTON JONATHAN R Signed Date and Time: 03/02/2020 10:54 am Signed by: MD PRESTON JONATHAN R Transcribed Date and Time: 03/02/2020 10:56 [place], [place] CT ABDOMEN AND PELVIS W/O CO NTRASTon 03-12-2018 CT ABDOMEN AND PELVIS W/O CONTRAST Performed at [facility] APPROVED BY: BASHIR RODRIGUEZ DO EXAMINATION: CT ABDOMEN AND PELVIS W/O CONTRAST REASON FOR EXAM: Abd pain, diverticulitis suspected , Nausea, vomiting TECHNIQUE: CT ABDOMEN AND PELVIS W/O CONTRAST; CT of the abdomen and pelvis was performed without intravenous contrast using standard technique. Study is incomplete as of 11:[address] Dose Reduction Employed: Automated exposure control (AEC) COMPARISON: CT abdomen/pelvis, 10/09/2011 FINDINGS: Pony Edger: No additional finding. Lower Thorax: Bibasilar atelectasis noted. Punctate density in the right lower lobe appears similar to the comparison as does a tiny density in the left lower lobe. Liver: Diffuse decreased attenuation of the liver is likely related to hepatic steatosis; there are areas of suspected fatty sparing. Biliary: No definite bile duct dilation. Vague hyperdensity in the gallbladder may be artifactual or related to sludge. Possible cholelithiasis. Large phrygian cap would be difficult to exclude. Pancreas: Equivocal haziness in the peripancreatic fat. Spleen: Unremarkable. Adrenals: Lobular thickening of the left adrenal gland. Kidneys/Ureters: Exophytic 2.1 cm left renal cyst. No hydronephrosis. Equivocal perinephric stranding. Mild left periureteral fat stranding is more likely reactive or artifactual or chronic. Pelvis: Bladder is collapsed. Limited evaluation of the bladder due to artifact. No overt uterine abnormality. Tiny hyperdensity in the region of the cervix is likely incidental. No overt adnexal abnormality. GI tract: Bowel anastomosis in the central pelvis. There is colonic diverticulosis. There is equivocal haziness in the fat surrounding the distal descending colon and proximal sigmoid colon. Areas of early or mild diverticulitis be difficult to exclude. No large amount of free air or drainable fluid collection is demonstrated. High attenuation in the appendix may be incidental debris with appendicolith(s) not excluded. There is no convincing CT evidence of appendicitis. Incomplete gastric distention limits evaluation for wall thickening. No suspicious small bowel dilation or overt wall thickening within the limitations of the study. Vasculature: Scattered vascular calcifications. Indistinctness in the fat around the celiac trunk and SMA is more likely incidental. Apparent indistinctness in the fat around the IVC and distal aorta is also nonspecific but also likely an incidental finding at this time. These findings appear similar to the comparison as well. Lymph nodes: No suspicious lymph node enlargement. Mesentery/Peritoneum: No large volume ascites. No free air. Bones/Soft tissues: No acute or suspicious osseous abnormality. There is a large predominantly fat-containing ventral hernia with protrusion of bowel anteriorly but no evidence of any bowel obstruction. Soft tissue attenuation along the anterior abdominal wall is presumably related to prior surgery. Fat-containing inguinal hernias. Bandlike soft tissue attenuation and stranding in the anterior abdominal wall is likely incidental at this time. Multilevel degenerative changes. No clear acute or suspicious osseous finding. Limited bony detail. The osteophytes abut the aorta. Mild subcutaneous fat stranding along the anterior abdominal wall. IMPRESSION: 1. Colonic diverticulosis. Areas of "mild" or early acute diverticulitis involving the sigmoid colon or descending colon would be difficult to exclude. There is no large amount of free air or drainable fluid collection demonstrated.2. Possible cholelithiasis. 3. Significant interval enlargement of a predominantly fat-containing ventral hernia. Bowel protrudes into the base of the hernia but there is no evidence of any bowel obstruction.4. Equivocal haziness in the peripancreatic fat is favored to be incidental. Correlation with lipase would be reasonable though. 5. Additional findings as detailed above. Normal [facility] Comprehensive Panelon 2017 Albumin 3.2 g/dL Low 3.4-5.0 [facility] Comment on above: Performed By: #### L P14 ####[facility] [place], [place] [address] Alkaline phosphatase (ALP) 68 U/L Normal 46-116 [facility] Comment on above: Performed By: #### L P14 ####[address] [address] ALT-SGPT Blood 16 U/L Normal 14-63 [facility] Comment on above: Performed By: #### L P14 ####[address] [address] Anion gap 7 mmol/L Low 8-20 [facility] Comment on above: Performed By: #### L P14 ####[address] [address] AST-SGOT Blood 30 U/L Normal 15-37 [facility] Comment on above: Performed By: #### L P14 ####[address] [address] Bilirubin Ql (U) 0.8 mg/dL Normal 0.2-1.0 [facility] Comment on above: Performed By: #### L P14 ####[address] [address] BUN (urea nitrogen) 9 mg/dL Normal 7-25 [facility] Comment on above: Performed By: #### L P14 ####[address] [address] BUN/Creatinine Ratio 12 mg/mg Normal 10-20 [facility] Comment on above: Performed By: #### L P14 ####[address] [address] Calcium 8.8 mg/dL Normal 8.5-10.1 [facility] Comment on above: Performed By: #### L P14 ####[address] [address] Chloride 106 mmol/L Normal 98-107 [facility] Comment on above: Performed By: #### L P14 ####[address] [address] CO2 29 mmol/L Normal 21-32 [facility] Comment on above: Performed By: #### L P14 ####[facility] [place] [address] Creatinine 0.73 mg/dL Normal 0.51-0.95 [facility] Comment on above: Performed By: #### L P14 ####[facility] [place] [address] Glucose mass conc 111 mg/dL High 70-99 [facility] Comment on above: Performed By: #### L P14 ####[place] [address] Potassium molar conc 4.1 mmol/L Normal 3.5-5.1 [facility] Comment on above: Performed By: #### L P14 ####[place] [address] Protein 7.8 g/dL Normal 6.4-8.2 [facility] Comment on above: Performed By: #### L P14 ####[place] [address] Sodium 138 mmol/L Normal 136-145 [facility] Comment on above: Performed By: #### L P14 ####[place] [address] Hemogram/Diffon 03-12-2018 Abs. Baso 0.02 thou/cmm Normal 0.00-0.08 [facility] Comment on above: Performed By: #### L CBCD ####[place] [address] Abs. [place] 0.57 thou/cmm Normal 0.20-1.00 [facility] Comment on above: Performed By: #### L CBCD ####[place] [address] Abs. Neut (ANC) 6.20 thou/cmm High 3.00-5.67 [facility] Comment on above: Performed By: #### L CBCD ####[place] [address] Basophils/100 WBC Auto (Bld) 0.2 % Normal [facility] Comment on above: Performed By: #### L CBCD ####[facility] [place], [place] [address] Eosinophils 0.11 thou/cmm Normal 0.00-0.41 [facility] Comment on above: Performed By: #### L CBCD ####[address] [address] Eosinophils/100 leukocytes 1.3 % Normal [facility] Comment on above: Performed By: #### L CBCD ####[place] [address] Erythrocyte distribution width Auto Ratio (RBC) 14.8 % Normal 11.5-15.9 [facility] Comment on above: Performed By: #### L CBCD ####[place] [address] Erythrocytes (RBC) 4.06 mil/cmm Low 4.20-5.40 [facility] Comment on above: Performed By: #### L CBCD ####[place] [address] Hematocrit (HCT) 38.2 % Normal 37.0-47.0 [facility] Comment on above: Performed By: #### L CBCD ####[place] [address] Hemoglobin mass conc (Bld) 11.9 g/dL Low 12.0-16.0 [facility] Comment on above: Performed By: #### L CBCD ####[address] [address] Lymphocytes 1.80 thou/cmm Normal 1.50-3.65 [facility] Comment on above: Performed By: #### L CBCD ####[address] [address] [address] Lymphocytes/100 leukocytes 20.7 % Normal [facility] Comment on above: Performed By: #### L CBCD ####[place] [address] MCH 29.3 pg Normal 27.0-31.0 [facility] Comment on above: Performed By: #### L CBCD ####[address] [address] MCHC mass conc (RBC) 31.2 % Low 32.0-36.0 [facility] Comment on above: Performed By: #### L CBCD ####[address] [address] MCV 94.1 fL Normal 81.0-99.0 [facility] Comment on above: Performed By: #### L CBCD ####[address] [address] Monocytes/100 leukocytes 6.6 % Normal [facility] Comment on above: Performed By: #### L CBCD ####[place] [address] Platelet mean volume (PMV) 10.0 fL Normal 7.1-10.5 [facility] Comment on above: Performed By: #### L CBCD ####[place] [address] Platelets 276 thou/cmm Normal 150-400 [facility] Comment on above: Performed By: #### L CBCD ####[address] [address] Seg Neutrophil 71.2 % Normal [facility] Comment on above: Performed By: #### L CBCD ####[address] [address] WBC (Leukocytes) 8.7 thou/cmm Normal 4.8-10.8 [facility] Comment on above: Performed By: #### L CBCD ####[address] [address] Lactic acidon 03-12-2018 Lactate 1.0 mmol/L Normal 0.4-2.0 [facility] Comment on above: Performed By: #### L LA ####[address] [address] Lipase Bloodon 03-12-2018 Lipase Blood 81 U/L Normal 73-393 [facility] Comment on above: Performed By: #### L LIP ####[place] [address] MDRD eGFRon 03-12-2018 eGFR (non-black) mL/min/{1.73_m2} Normal >60mL/m in/1 .73m2 [facility] Comment on above: Result Comment: If t he patient is , multiply the result by 1.210. Performed By: #### L GFR ####[place] [address] Urinalysis Routineon 018 Bilirubin Urine Negative Normal Negative [facility] Comment on above: Performed By: #### L URIN ####[place] [address] Ep Cells Urine 2-5 Normal 0-5 [facility] Comment on above: Performed By: #### L URIN ####[place] [address] Granular Cast 0-1 Abnormal None [facility] Comment on above: Performed By: #### L URIN ####[place] [address] Hemoglobin,Urine Negative Normal Negative [facility] Comment on above: Performed By: #### L URIN ####[place] [address] Hyaline Cast 0-2 Abnormal None [facility] Comment on above: Performed By: #### L URIN ####[place] [address] Ketone Urine Negative Normal Negative [facility] Comment on above: Performed By: #### L URIN ####[place] [address] Mucus Threads FEW Normal None [facility] Comment on above: Performed By: #### L URIN ####[place] [address] Nitrites Urine Negative Normal Negative [facility] Comment on above: Performed By: #### L URIN ####[place] [address] Protein Urine 1+ Abnormal Negative [facility] Comment on above: Performed By: #### L URIN ####[facility] [place] [address] Specific [place], Ur 1.020 Normal 1.005-1.030 [facility] Comment on above: Performed By: #### L URIN ####[place] [address] Urine, appearance 2+ (SLT CLOUDY) Normal [facility] Comment on above: Performed By: #### L URIN ####[place] [address] Urine, bacteria in sediment Occasional Normal None [facility] Comment on above: Performed By: #### L URIN ####[place] [address] Urine, color YELLOW Normal [facility] Comment on above: Performed By: #### L URIN ####[place] [address] Urine, erythrocytes in sediment by area 0-3 Normal 0-3 [facility] Comment on above: Performed By: #### L URIN ####[place] [address] Urine, glucose presence Negative Normal Negative [facility] Comment on above: Performed By: #### L URIN ####[place] [address] Urine, leukocytes in sedmiment 2-5 Normal 0-5 [facility] Comment on above: Performed By: #### L URIN ####[place] [address] Urine, pH 6.5 [pH] Normal 5.0-8.0 [facility] Comment on above: Performed By: #### L URIN ####[place] [address] Urobilinogen,Ur 2.0 EU/dL High 0.0-1.0 [facility] Comment on above: Performed By: #### L URIN ####[place] [address] WBC (Leukocytes) Negative Normal Negative [facility] Comment on above: Performed By: #### L URIN ####[address] [address] Vital Signs Date Time Vital Sign Value Performing Clinician Malik wing 03-05-2022 11:38-0400 Body temperature 96.8 [degF] Vahe Strickland MD Work Phone: [facility] 03-05-2022 11:38-0400 Diastolic blood pressure 89 mm[Hg] Vahe ahumada MD Work Phone: [facility] 03-05-2022 11:38-0400 Heart rate 80 /min Vahe Strcikland MD Work Phone: [facility] 03-05-2022 11:38-0400 Respiratory rate 17 /min Vahe Strickland MD Work Phone: [facility] 03-05-2022 11:38-0400 SaO2% (BldA) [Mass fraction] 93 % Vahe Strickland MD Work Phone: [facility] 03-05-2022 11:38-0400 Systolic blood pressure 180 mm[Hg] Vahe royal MD Work Phone: [facility] 03-01-2022 19:51-0400 Body height 167.6 cm Vahe Strickland MD Work Phone: [facility] 03-01-2022 19:51-0400 Body mass index (BMI) [Ratio] 52.46 kg/m2 Vahe Strickland MD Work Phone: [facility] 03-01-2022 19:51-0400 Body weight 147.42 kg Vahe Strickland MD Work Phone: [facility] 07-19-2021 13:26-0500 Diastolic blood pressure 100 mm[Hg] Papito Shrestha MD Work Phone: [facility] 07-19-2021 13:26-0500 Heart rate 84 /min Papito Shrestha MD Work Phone: [facility] 07-19-2021 13:26-0500 Respiratory rate 18 /min Papito Shrestha MD Work Phone: [facility] 07-19-2021 13:26-0500 SaO2% (BldA) [Mass fraction] 95 % Papito Shrestha MD Work Phone: [facility] 07-19-2021 13:26-0500 Systolic blood pressure 166 mm[Hg] Papito Shrestha MD Work Phone: [facility] 07-19-2021 12:45-0500 Body height 167.6 cm Papito Shrestha MD Work Phone: [facility] 07-19-2021 12:45-0500 Body mass index (BMI) [Ratio] 51.65 kg/m2 Papito Srhestha MD Work Phone: [facility] 07-19-2021 12:45-0500 Body temperature 98.2 [degF] Papito Shrestha MD Work Phone: [facility] 07-19-2021 12:45-0500 Body weight 145.15 kg Papito Shrestha MD Work Phone: [facility] Encounters Encounter Date Encounter Type Care Provider Facility Start: 02-07-2025 End: 02-07-2025 ambulatory No Primary Care Physician [facility] Work Phone: Start: 02-07-2025 End: 02-07-2025 Departed Referred Gee Herrmann -[facility] [employer] [facility] [address] Start: 02-07-2025 End: 02-07-2025 ambulatory Gee HERRMANN Facility:[facility] Start: 12-07-2024 End: 12-07-2024 Departed Referred Gee Herrmann -[facility] [address] Start: 12-07-2024 Registered Referred Gee Schmitz [facility] [employer] [facility] [address] Start: 12-07-2024 End: 12-07-2024 ambulatory Gee HERRMANN Facility:[facility] Start: 10-27-2024 ambulatory No Primary Car e Physician Facility:[facility] Start: 10-27-2024 Registered Referred Gee Schmitz [facility] [employer] [facility] [address] Start: 10-04-2024 ambulatory No Primary Car e Physician Facility:[facility] Start: 10-04-2024 Registered Referred Gee Herrmann -[facility] [address] Start: 09-17-2024 End: 09-17-2024 ambulatory No Primary Care Physician [facility] Work Phone: Start: 09-17-2024 End: 09-17-2024 Departed Referred Gee Herrmann -[facility] [address] Start: 09-17-2024 End: 09-17-2024 ambulatory No Primary Care Physician Facility:[facility] Start: 09-03-2024 End: 09-15-2024 Evaluation and management of inpatient EDDY OVERTON MD Facility:[id number] Start: 11-03-2022 Letter encounter Luis Felipe tolbert Start: 03-29-2022 End: 04-15-2022 Subsequent hospital visit by physician Shelby Deutsch MD Work Phone: [facility] Comment on above: [I63.9] - Cerebral i nfarction Start: 03-25-2022 Telephone encounter Coleen copeland MD Work Phone: [place] [facility] Comment on above: [facility] Start: 03-20-2022 End: 03-20-2022 Subsequent hospital visit by physician Melba Gutierrez DO Work Phone: [facility] Comment on above: +COVID,recent CVA,L side weakness Start: 03-20-2022 Telephone encounter Emeterio Ricardo APRN.CARPET SEWER Work Phone: [facility] Comment on above: Orders (CT Brain) Start: 03-01-2022 End: 03-05-2022 Evaluation and management of inpatient Vahe Strickland MD Work Phone: [facility] Comment on above: Left-sided weakness (Primary Dx) Start: 08-08-2021 End: 08-08-2021 Subsequent hospital visit by physician Maxine Vital MD Work Phone: [facility] Start: 07-19-2021 End: 07-19-2021 Emergency department patient visit Papito Shrestha MD Work Phone: [facility] Comment on above: External constrictio n of right foot, initial encounter (Primary Dx); Anxiety state Start: 10-28-2020 End: 10-28-2020 Letter encounter [facility] Start: 03-02-2020 End: 03-02-2020 Subsequent hospital visit by physician Lencho Obando Work Phone: [facility] Start: 04-17-2017 End: 04-17-2017 Emergency department patient visit MIGUEL HAAS Facility:[facility] Procedures Date Procedure Procedure Detail Performing Clinician Start: 10-27-2024 Total iron binding c apacity measurement No Primary Care Physician Start: 04-15-2022 Blood count complete auto&auto difrntl wbc Papito Swartz APRN Work Phone: Start: 04-08-2022 Blood count complete auto&auto difrntl wbc Papito Swartz APRN Work Phone: Start: 04-04-2022 Blood count complete auto&auto difrntl wbc Faisal White MD Work Phone: Start: 04-01-2022 Blood count complete auto&auto difrntl wbc Faisal White MD Work Phone: Start: 03-20-2022 Ct head/brain w/o co ntrast material Emeterio Ricardo PROFESSOR SCULPTURE.CARPET SEWER Work Phone: Start: 03-05-2022 POCT COVID-19, ANTIGEN Lonnie Rigoberto Haile DO Work Phone: Start: 03-05-2022 BASIC METABOLIC PANE L W/ REFLEX TO MG FOR LOW K Rikki Ceja MD Work Phone: Start: 03-05-2022 Blood count complete automated Rikki Ceja MD Work Phone: Start: 03-04-2022 Dup-scan xtr veins c omplete bilateral study Hannah Mcdermott PROFESSOR SCULPTURE - [employer] Work Phone: Start: 03-04-2022 Mri spinal canal cer vical w/o & w/contr matrl Hannah Cody Sharron PROFESSOR SCULPTURE - [employer] SE[employer]ER Work Phone: Start: 03-04-2022 Duplex scan extracra nial art compl bi study Nida Holliday DO Work Phone: Start: 03-04-2022 BASIC METABOLIC PANE L W/ REFLEX TO MG FOR LOW K Rikki Ceja MD Work Phone: Start: 03-04-2022 Blood count complete automated Rikki Ceaj MD Work Phone: Start: 03-03-2022 Mra head w/o contrst material Rikki Ceja MD Work Phone: Start: 03-03-2022 BASIC METABOLIC PANE L W/ REFLEX TO MG FOR LOW K Rikki Ceja MD Work Phone: Start: 03-03-2022 Blood count complete automated Rikki Ceja MD Work Phone: Start: 03-02-2022 Echo tthrc r-t 2d w/wom-mode compl spec&colr d Rikki Ceja MD Work Phone: Start: 03-02-2022 ADD ON LAB TEST Donna V irgen DO Work Phone: Start: 03-02-2022 ADD ON LAB TEST Donna V irgen DO Work Phone: Start: 03-02-2022 BASIC METABOLIC PANE L W/ REFLEX TO MG FOR LOW K Rikki Ceja MD Work Phone: Start: 03-02-2022 Cyanocobalamin vitamin b-12 Rikki Ceja MD Work Phone: Start: 03-02-2022 Lipid panel Rikki monahan MD Work Phone: Start: 03-02-2022 Speech and language therapy regime Rikki Ceja MD Work Phone: Start: 03-01-2022 Urnls dip stick/tabl et rgnt auto w/o microscopy Vahe Strickland MD Work Phone: Start: 03-01-2022 End: 03-01-2022 Gluc bld gluc mntr dev cleared fda spec home use Vahe Strickland MD Work Phone: Start: 03-01-2022 Ct head/brain w/o co ntrast material Vahe Strickland MD Work Phone: Start: 03-01-2022 Ecg routine ecg w/le ast 12 lds w/i&r Vahe Strickland MD Work Phone: Start: 03-02-2020 Radiologic exam both knees standing anteropost Lencho Obando Work Phone: Start: 03-02-2020 Radiologic examinati on knee 1/2 views Lencho Obando Work Phone: Plan of Treatment Date Care Activity Detail Author Start: 03-26-2027 LIPID SCREEN LIPID SCREEN [facility] Start: 04-15-2025 DIABETES SCREEN DIABETES SCREEN [facility] Start: 03-25-2025 DIABETES SCREEN DIABETES SCREEN [facility] Start: 03-20-2025 DIABETES SCREEN DIABETES SCREEN [facility] Start: 03-02-2023 Hemoglobin A1c measurement A1C test (Diabetic or Prediabetic) [facility] Start: 03-02-2023 Lipid panel Lipids [facility] Start: 06-08-2022 Influenza vaccination Influenza Vacc ine (#1) [facility] Start: 05-12-2022 Diabetes screen Diabetes screen [facility] Start: 05-09-2022 Influenza vaccination INFLUENZA (#1) [facility] Start: 04-23-2022 Depression Monitoring Depression Mon itoring [facility] Start: 03-27-2022 End: 03-27-2022 Patient encounter procedure 03/27/2022 Office Visit Neurosurgery Gen Taylor MD [address] [place] [address] [facility] [place] Start: 01-26-2022 COVID-19 VACCINE (4 - Booster for Pfizer series) COVID-19 VACCINE (4 - Booster for Pfizer series) [facility] Start: 12-03-2021 Creatinine measurement Creatinine mo nitoring [facility] Start: 12-03-2021 Potassium monitoring Potassium monit oring [facility] Start: 08-19-2021 COVID-19 Vaccine (3 - Booster for Pfizer series) COVID-19 Vaccine (3 - Booster for Pfizer series) [facility] Start: 08-15-2021 End: 08-15-2021 Patient encounter procedure 08/15/2021 Office Visit Orthopedic Surgery Loreta Nice, ROCKY [address] [place] [address] [facility] [place] Start: 05-09-2021 Influenza vaccination Flu vaccine (# 1) [facility] Start: 01-10-2021 Annual Wellness Visi t (AWV) Annual Wellness Visit (AWV) [facility] Start: 06-08-2020 Influenza vaccination Influenza Vacc ine (#[facility] Start: 03-30-2020 End: 03-30-2020 Office Visit 03/30/2020 Office Visit Orthopedic Surgery Michael Cruz MD [address] [facility] [address] [place] [address] [phone] [facility] [place] Start: 12-18-2019 Creatinine measurement Creatinine mo nitoring [facility] [place], [place] Start: 12-18-2019 Potassium monitoring Potassium monit oring [facility], [place] Start: 2017 Measurement of occul t blood in single stool specimen FIT [facility] Start: 2017 Screening for malign ant neoplasm of breast Mammography [facility] Start: 2017 Screening for malign ant neoplasm of colon [facility] Start: 2017 Shingles Vaccine (1 of 2) Shingles Vaccine (1 of 2) [facility] Start: 2017 SHINGRIX VACCINE (1 of 2) SHINGRIX VACCINE (1 of 2) [facility] Start: 2017 Varicella-zoster vaccine (product) Shingles (RZV) Vaccine (1 of 2) [facility] Start: 2012 Cholesterol [Mass/Vol] Cholesterol [facility] Start: 2012 COLOGUARD (FIT-DNA) COLOGUARD (FIT-D NA) [facility] Start: 2012 Colonoscopy COLONOSCOPY [facility] Start: 2012 COLORECTAL CANCER SCREENING COLORECTAL CANCER SCREENING [facility] Start: [address] COLONOGRAPHY [facility] Start: 2012 FECAL OCCULT BLOOD FECAL OCCULT BLOO D [facility] Start: 2012 LIPID SCREEN LIPID SCREEN [facility] Start: 2012 Screening for malign ant neoplasm of colon [facility] Start: 2012 SIGMOIDOSCOPY SIGMOIDOSCOPY [facility] Start: 2007 Lipid panel Lipid screen [facility] Start: 2007 Mammography MAMMOGRAM [facility] Start: 2007 Screening for malign ant neoplasm of breast [facility] Start: 1997 HPV TESTING HPV TESTING [facility] Start: 1997 Screening for malign ant neoplasm of cervix [facility] Start: 1988 PAP TESTING PAP TESTING [facility] Start: 1988 Screening for malign ant neoplasm of cervix [facility] Start: 1986 DTaP/Tdap/Td vaccine (1 - Tdap) DTaP/Tdap/Td vaccine (1 - Tdap) [facility] Start: 1986 Tetanus vaccination Met [facility] Start: 1986 Urine microalbumin profile DTAP,TDAP,TD (1 - Tdap) [facility] Start: 1985 ANNUAL PCP TEAM WINE MANAGER SHAWNA DISEASE VISIT ANNUAL PCP TEAM CHRONIC DISEASE VISIT [facility] Start: 1985 BP CONTROLLED (<130/80) BP CONTROLLE D (<130/80) [facility] Start: 1985 Hepatitis C antibody , confirmatory test Hepatitis C Antibody [facility] Start: 1985 HEPATITIS C SCREENING HEPATITIS C SC REENING [facility] Start: 1985 Hepatitis C screening Hepatitis C An tibody [facility] Start: 1985 HIV SCREENING HIV SCREENING [facility] Start: 1985 Tetanus + diphtheria + acellular pertussis vaccine (product) Tdap Booster [facility] Start: 1982 HIV screening [facility] Start: 1967 COVID-19 Vaccine (#1) COVID-19 Vacci ne (#1) [facility] Start: 1967 Colonoscopy Colonoscopy [facility] Start: 1967 HEPATITIS B (1 of 3 - 3-dose series) HEPATITIS B (1 of 3 - 3-dose series) [facility] Start: 1967 Screening for malign ant neoplasm of colon Colonoscopy [facility] Oxygen therapy [Mini mum Data Set] Initiate Oxygen Therapy Protocol Respiratory Care Routine As Needed until discontinued starting 03/01/2022 [facility] Work Phone: Comment on above: As Needed until disc ontinued starting 03/01/2022 Oxygen therapy [Mini mum Data Set] Initiate Oxygen Therapy Protocol Respiratory Care Routine As Needed until discontinued starting 03/02/2022 [facility] Work Phone: Comment on above: As Needed until disc ontinued starting 03/02/2022 End: 08-08-2021 Radiologic examination knee 1/2 views [facility] Work Phone: Comment on above: Once for 1 Occurrenc es starting 08/08/2021 until 08/08/2021 Troponin I.cardiac [Mass/volume] in Serum or Plasma Troponin Lab Timed 03/02/2022 3:38 AM EDT [facility] Work Phone: End: 08-08-2021 XR KNEE BILATERAL STANDING [facility] Work Phone: Comment on above: Once for 1 Occurrenc es starting 08/08/2021 until 08/08/2021 Immunizations Immunization Date Immunization Notes Care Provider [facility] 09-28-2021 COVID-19 vaccine, ag e 12+ yr (PFIZER-BIONTECH - PATTERSON TOP) Emeterio Ricardo APRN.CARPET SEWER Work Phone: [facility] 09-28-2021 Influenza, injectabl e, Madin Brandi Canine Kidney, preservative free, quadrivalent Emeterio Ricardo APRN.CARPET SEWER Work Phone: [facility] 02-17-2021 COVID-19 vaccine, ag e 12+ yr (PFIZER-BIONTECH - PURPLE TOP) Emeterio Ricardo APRN.CARPET SEWER Work Phone: [facility] 01-27-2021 COVID-19 vaccine, ag e 12+ yr (PFIZER-BIONTECH - PURPLE TOP) Emeterio Trill PROFESSOR SCULPTURE.CARPET SEWER Work Phone: [facility] 09-21-2019 influenza, injectabl e, quadrivalent, preservative free [facility], [place] 06-06-2017 influenza virus vacc ine, unspecified formulation Maxine Vital MD Work Phone: [facility] Work Phone: 06-06-2017 influenza, seasonal, injectable Emeterio Trill PROFESSOR SCULPTURE.CARPET SEWER Work Phone: [facility] Work Phone: 06-23-2016 influenza virus vacc ine, whole virus [facility], [place] 06-21-2016 influenza virus vacc ine, unspecified formulation Maxine Vital MD Work Phone: [facility] Work Phone: 06-21-2016 influenza, seasonal, injectable, preservative free Emeterio Trill PROFESSOR SCULPTURE.CARPET SEWER Work Phone: [facility] Work Phone: 06-23-2015 pneumococcal polysaccharide vaccine, 23 valent [facility], [place] 06-22-2014 influenza virus vacc ine, unspecified formulation Maxine Vital MD Work Phone: [facility] Work Phone: 06-22-2014 influenza, seasonal, injectable, preservative free Emeterio Trill PROFESSOR SCULPTURE.CARPET SEWER Work Phone: [facility] Work Phone: 05-20-2013 influenza virus vacc ine, unspecified formulation Maxine Vital MD Work Phone: [facility] Work Phone: 05-20-2013 influenza, seasonal, injectable Emeterio Trill PROFESSOR SCULPTURE.CARPET SEWER Work Phone: [facility] Work Phone: Payers Date Payer Category Payer Unknown [id number] 2024 Self-pay 2024 Unknown [id number] 2024 Unknown [id number] 2021 Unknown [place] [id number] 2021-Present [address] [place] [address] [id number] 2019 Medicare [facility] MEDICARE [facility] MEDICARE COMPLETE xxxxxxxxx 2019-Present xxxxxxxxx [id number] 2019 Medicare [id number] 2002 Medicare [id number] 2002 Medicaid [id number] 2002 Medicaid [id number] 1967 Unknown [id number] Private Health Insurance Unknown [employer] [id number] Effective for all dates [address] [address] [place] [address] Other [id number] Unknown [id number] Unknown [id number] Unknown [id number] Unknown [id number] Unknown [id number] Social History Date Type Detail Facility Start: 04-23-2016 End: 02-16-2020 Tobacco smoking status NHIS Never smoker [place] Start: 02-16-2020 End: 03-25-2022 Alcohol intake Current non-drinker of alcohol (finding) [place] Start: 12-16-2018 End: 03-18-2022 History SDOH Alcohol Frequency 1 [place] Start: 09-21-2019 End: 03-18-2022 History SDOH Social Connections Phone 3 [place] Start: 05-12-2019 End: 03-26-2022 History SDOH Social Connections Membership 2 [place] Start: 05-12-2019 End: 04-23-2021 History SDOH Social Connections Living 7 [place] Start: 12-16-2018 End: 04-23-2021 History SDOH Physical Activity DPW 0 [place] Start: 12-16-2018 End: 03-26-2022 History SDOH Stress 5 [place], [place] Start: 1965 Sex Assigned At Female [place] Exposure to SARS-CoV -2 (event) Unable to assess [place] Start: 1965 Sex Assigned At Not on file [facility] Start: 02-25-2016 Tobacco use and exposure Smokeless tobacco non-user [employer] Work Phone: Start: 02-19-2022 End: 03-25-2022 Exposure to SARS-CoV-2 (event) Not sure [employer] Work Phone: Start: 03-15-2022 End: 03-25-2022 Exposure to SARS-CoV-2 (event) Yes [facility] Start: 04-23-[address] [facility] Start: 04-10-2016 Spouse/ Significant Other Spouse/ Significant Other [facility] Start: 12-16-2024 Sex Female (finding) [facility] Goals Date Patient Goal Desired Activity /State Comment on above: Lose weight. Barriers: impairment: physical: Knees Plan for overcoming my barriers: Will discuss plan with provider. Confidence: 03/17 Anticipated Goal Completion Date: 1 year. Clinical Notes 03-04-2022 to 09-15-2024 Telephone Encounter - Coleen Cho MD - 03/25/2022 3:38 PM EDTTelephone Encounter - Emeterio Ricardo APRN.CNP - 03/20/2022 2:44 PM EDT Note Date & Type Note Facility 09-15-2024 Note Social Work/Case Man agement Progress Note Entered On: 09/15/2024 11:27 EST Performed On: 09/15/2024 11:26 EST by Silvana Terry Discharge Planning Patient Goal(s) at Discharge : return to ECF Anticipated Discharge Date : 09/11/2024 EST Silvana Terry - 09/15/2024 11:26 EST Progress Note Ensure your note includes the following: : Discharge Planning Note : Pt's discharge was postponted until today at 11:30AM. [facility] and Bedside nurse have been updated. A. Discharge Plan: [facility] -PRE-CERT OBTAINED-no 7000 needed as came from [facility]. DME required at discharge: No C. Who the discharge plan has been discussed with: Pt/Nursing D. Transportation needed at discharge: [id number] stretcher due to bed bound E. Barriers to discharge: N/A F. Handoff to whom: Bedside side seam tender Disposition : ECF-Extended Care Facility Impression needs have been identified / Documentation completed: : No further intervention required- (Transition of Care Readiness) Silvana Terry - 09/15/2024 11:26 EST [facility] 09-15-2024 Note Patient Education Ma dimitri Hematology Anemia: Care Instructions Your Care Instructions Anemia is a low level of red blood cells, which carry oxygen throughout your body. Many things can cause anemia. Lack of iron is one of the most common causes. Your body needs iron to make hemoglobin, a substance in red blood cells that carries oxygen from the lungs to your body's cells. Without enough iron, the body produces fewer and smaller red blood cells. As a result, your body's cells do not get enough oxygen, and you feel tired and weak. And you may have trouble concentrating. Bleeding is the most common cause of a lack of iron. You may have heavy menstrual bleeding or bleeding caused by conditions such as ulcers, hemorrhoids, or cancer. Regular use of aspirin or other anti-inflammatory medicines (such as ibuprofen) also can cause bleeding in some people. A lack of iron in your diet also can cause anemia, especially at times when the body needs more iron, such as during , infancy, and the teen years. Your doctor may have prescribed iron pills. It may take several months of treatment for your iron levels to return to normal. Your doctor also may suggest that you eat foods that are rich in iron, such as meat and beans. There are many other causes of anemia. It is not always due to a lack of iron. Finding the specific cause of your anemia will help your doctor find the right treatment for you. Follow-up care is a lynn part of your treatment and safety. Be sure to make and go to all appointments, and call your doctor if you are having problems. It's also a good idea to know your test results and keep a list of the medicines you take. How can you care for yourself at home? ? Take your medicines exactly as prescribed. Call your doctor if you think you are having a problem with your medicine. ? If your doctor recommends iron pills, take them as directed: ? Try to take the pills on an empty stomach about 1 hour before or 2 hours after meals. But you may need to take iron with food to avoid an upset stomach. ? Do not take antacids or drink milk or caffeine drinks (such as coffee, tea, or cola) at the same time or within 2 hours of the time that you take your iron. They can make it hard for your body to absorb the iron. ? Vitamin C (from food or supplements) helps your body absorb iron. Try taking iron pills with a glass of orange juice or some other food that is high in vitamin C, such as citrus fruits. ? Iron pills may cause stomach problems, such as heartburn, nausea, diarrhea, constipation, and cramps. Be sure to drink plenty of fluids, and include fruits, vegetables, and fiber in your diet each day. Iron pills often make your bowel movements dark or green. ? If you forget to take an iron pill, do not take a double dose of iron the next time you take a pill. ? Keep iron pills out of the reach of small children. An overdose of iron can be very dangerous. ? Follow your doctor's advice about eating iron-rich foods. These include red meat, shellfish, poultry, eggs, beans, raisins, whole-grain bread, and leafy green vegetables. ? Steam vegetables to help them keep their iron content. When should you call for help? Call 911 anytime you think you may need emergency care. For example, call if: ? You have symptoms of a heart attack. These may include: ? Chest pain or pressure, or a strange feeling in the chest. ? Sweating. ? Shortness of breath. ? Nausea or vomiting. ? Pain, pressure, or a strange feeling in the back, neck, jaw, or upper belly or in one or both shoulders or arms. ? Lightheadedness or sudden weakness. ? A fast or irregular heartbeat. After you call 911, the lead laying and gluing machine operator may tell you to chew 1 adult-strength or 2 to 4 low-dose aspirin. Wait for an ambulance. Do not try to drive yourself. ? You passed out (lost consciousness). Call your doctor now or seek immediate medical care if: ? You have new or increased shortness of breath. ? You are dizzy or lightheaded, or you feel like you may faint. ? Your fatigue and weakness continue or get worse. ? You have any abnormal bleeding, such as: ? Nosebleeds. ? Vaginal bleeding that is different (heavier, more frequent, at a different time of the month) than what you are used to. ? Bloody or black stools, or rectal bleeding. ? Bloody or pink urine. Watch closely for changes in your health, and be sure to contact your doctor if: ? You do not get better as expected. Where can you learn more? Go to https://www.[employer].net/gina ntEd Enter R301 in the search box to learn more about Anemia: Care Instructions. Current as of: August 06, 2021 Content Version: 13.3 ? [employer]. Care instructions adapted under license by your healthcare professional. If you have questions about a medical condition or this instruction, always ask your healthcare professional. [employer] disclaims any warranty or liability for your use of this information. [facility] 09-14-[address] Grey montejo at bedside. Discussed patient plan of care--patient no longer discharging tonight due to fevers, hypotension, complaints of nausea and poor appetite. IV fluid bolus and continuous fluids ordered per Dr. Overton. AM labs ordered, UA ordered. Patient remains alert and oriented, complaining of IBS abdominal pain to bilateral lower quadrants. States her nausea has improved since AM. [facility] 09-14-2024 Note Social Work/Case Man agement Progress Note Entered On: 09/14/2024 10:35 EST Performed On: 09/14/2024 10:34 EST by Silvana Terry Discharge Planning Patient Goal(s) at Discharge : return to ECF Anticipated Discharge Date : 09/11/2024 EST Silvana Terry - 09/14/2024 10:34 EST Progress Note Ensure your note includes the following: : Silvana Terry - 09/14/2024 10:34 EST Discharge Planning Note : [facility] appeal was already completed and they agreed with pt's d/c. However, we are still waiting on auth per [facility] this morning. ADDENDUM-Auth obtained per [facility]. Ambulance arranged. Bedside RN updated with # for report. A. Discharge Plan: [facility] -PRE-CERT OBTAINED TODAY-no 7000 [facility] DME required at discharge: No C. Who the discharge plan has been discussed with: Pt/Nursing D. Transportation needed at discharge: [id number] stretcher due to bed bound E. Barriers to discharge: N/A F. Handoff to whom: Bedside RN Silvana Terry - 09/14/2024 15:32 EST Discharge Disposition : ECF-Extended Care Facility Silvana Terry - 09/14/2024 10:34 EST Impression needs have been identified / Documentation completed: : No further intervention required- (Transition of Care Readiness) Silvana Terry - 09/14/2024 15:32 EST [facility] 09-13-2024 Note Social Work/Case Man agement Progress Note Entered On: 09/13/2024 11:02 EST Performed On: 09/13/2024 11:01 EST by Silvana Terry Discharge Planning Patient Goal(s) at Discharge : return to ECF Anticipated Discharge Date : 09/11/2024 EST Silvana Terry - 09/13/2024 11:01 EST Progress Note Ensure your note includes the following: : Discharge Planning Note : [employer] appeal in process? Checking on status. Awaiting [facility] to obtain ECF auth. A. Discharge Plan:[facility] appeal:ECF: [phone] -PENDING PRECERT--no 7000 [facility] [place] B. DME required at discharge: no C. Who the discharge plan has been discussed with: patient/RN D. Transportation needed at discharge: [id number] stretcher due to bed bound E. Barriers to discharge: PENDING PRECERT F. Handoff to whom: N/A Discharge Disposition : ECF-Extended Care Facility Impression needs have been identified / Documentation completed: : Progress Note completed by Social Work and/or Case Mgmt. Will continue to follow in areas of identified need. Silvana Terry - 09/13/2024 11:01 EST [facility] 09-10-2024 Note Social Work/Case Man agement Progress Note Entered On: 09/10/2024 11:49 EST Performed On: 09/10/2024 11:47 EST by Mery Acosta Discharge Planning Patient Goal(s) at Discharge : return to ECF Anticipated Discharge Date : 09/11/2024 EST Mery Acosta - 09/10/2024 11:47 EST Progress Note Ensure your note includes the following: : A. Discharge Plan: B. DME required at discharge: C. Who the discharge plan has been discussed with: D. Transportation needed at discharge: E. Barriers to discharge: F. Handoff to whom: Discharge Planning Note : A. Discharge Plan:[facility] appeal:ECF: [phone] -PENDING PRECERT--no 7000 needed [facility] [place] B. DME required at discharge: no C. Who the discharge plan has been discussed with: patient/RN D. Transportation needed at discharge: [id number] stretcher due to bed bound E. Barriers to discharge: PENDING PRECERT F. Handoff to whom: nurse Discharge Disposition : ECF-Extended Care Facility Impression needs have been identified / Documentation completed: : Progress Note completed by Social Work and/or Case Mgmt. Will continue to follow in areas of identified need. Mery Acosta - 09/10/2024 11:47 EST [facility] 09-10-2024 Note Care Continuum Progr ess Note Entered On: 09/10/2024 11:21 EST Performed On: 09/10/2024 11:21 EST by Claudette Bentley Care Continuum Progress Note [facility] Case : Yes [facility] Case Comment : Physician reviewer agrees with termination of services and patient liability begins tomorrow 09/11/24 at noon. Claudette Bentley - 09/10/2024 11:21 EST [facility] 09-10-2024 Note Care Continuum Progr ess Note Entered On: 09/10/2024 11:08 EST Performed On: 09/10/2024 10:49 EST by Claudette Bentley Care Continuum Progress Note Primary Care Physician : RENETTA DILL, TONA BOGGS PCP appointment scheduled : Self schedule Specialist 1 : MAXINE OLSEN PA-C Scheduled Team Assistant 1 : 09/27/2024 14:00 EST Navigator Rounding Comments : Patient is scheduled for post discharge follow up with Cardiology. Appointment details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 She is oxygenating well on room air with SpO2 ranging from 94-96% on room air. Patient denies fevers, chills, sweats, or rigors. Denies nausea/ vomiting/ diarrhea. Afebrile for 24 hours. Tmax 98.6 F. Patient will likely transfer to acute rehab today. ? IMAGES CT Brain - No acute intracranial abnormalities. No significant change from previous imaging. Chronic right caudate nucleus lacunar infarct. Chronic anterior medial right thalamic infarct. Mild degree supratentorial chronic microvascular ischemic changes posterior centrum semiovale as well as posterior body right side of the corpus callosum. ? CT cervical spine - No CT evidence of acute osseous abnormality of the cervical or thoracic spine.?No acute bone destruction, osseous lesion or fracture. C4-C5 and lesser degree C5-6 and C6-7 levels: Moderate to severe left foraminal stenosis secondary to uncovertebral hypertrophy. ? CXR - No acute radiographic traumatic abnormality ? XR L Hip - No acute fracture identified. ?Consider crosstable lateral view. Left hip osteoarthritis ? XR Shoulder - No acute traumatic abnormality? MRI/MRA BRAIN AND CERVICAL SPINE WO IVCON - 1. ?ACUTE INFARCTION IN RIGHT KEE RADIATA 2. ?NO DEFINITIVE HEMORRHAGE 3. ?UNREMARKABLE MRA HEAD 4. ?LIMITED AND MOTION CORRUPTED CERVICAL SEQUENCE, DEMONSTRATES NO DOMINANT ABNORMALITY CT HIP WO IVCON - Osteoarthrosis. ?No fracture. Patient Active Hospital Problem List: Left-sided weakness (03/20/2022) Ulcerative colitis, chronic (HCC) (01/12/2016) Morbid obesity (HCC) (10/29/2017) Recent cerebrovascular accident (CVA) (03/09/2022) COVID-19 (03/09/2022) GERD (gastroesophageal reflux disease) (03/20/2022) Essential hypertension (12/16/2018) Hyperlipidemia (03/25/2022) Elevated glucose (03/25/2022) Stroke-like symptoms (03/25/2022) COVID (03/25/2022) ASSESSMENT: Persistent COVID Left sided weakness ->Recent CVA, now with new stroke found on MRI/MRA this admission Hyperlipidemia Hypertension Osteoarthritis GERD Chronic fatigue syndrome Fibromyalgia Post-traumatic stress disorder Sjogren's syndrome Anxiety RECOMMENDATIONS: Persistent COVID (resolved) Hold dexamethasone AND RDV therapy -> Patient recently completed these therapies from 03/08-03/12 and 03/08-03/17 In setting of persistent COVID infection, patient is not a candidate for Bebtalovimab Monitor CBC, CMP daily? Monitor off abx Not currently a candidate for Baricitinib administration, oxygenating well on RA Monitor temperatures and counts IS AC managed by primary Discharge dispo [facility] MEDICATIONS: reviewed. Current Facility-Administered Medications Medication Dose Route Frequency - atorvastatin 40 mg tab(s) (LIPITOR) 40 mg ORAL DAILY - clopidogrel 75 mg tab(s) (PLAVIX) 75 mg ORAL DAILY - NaCl 0.9% iv flush bag 20 mL INTRAVENOUS PRN - sodium chloride 0.9 % (flush) 3-5 mL (BD POSIFLUSH) 3-5 mL INTRAVENOUS q 12 H - sodium chloride 0.9 % (flush) 2-10 mL (BD POSIFLUSH) 2-10 mL INTRAVENOUS DIRECTED PRN - NaCl 0.9% iv flush bag 20 mL INTRAVENOUS PRN - sodium chloride 0.9 % (flush) 3-5 mL (BD POSIFLUSH) 3-5 mL INTRAVENOUS q 12 H - docusate sodium 100 mg cap(s) (COLACE) 100 mg ORAL BID PRN - acetaminophen 650 mg tab(s) (TYLENOL) 650 mg ORAL q 6 H PRN - dicyclomine 20 mg tab(s) (BENTYL) 20 mg ORAL q 6 H PRN - loperamide 2 mg cap(s) (IMODIUM) 2 mg ORAL TID PRN - enoxaparin 40 mg injection (LOVENOX) 40 mg SUBCUTANEOUS q 12 HR - lidocaine 4 % 1 Patch (SALONPAS) 1 Patch TRANSDERMAL DAILY And - lidocaine patch - REMOVE OTHER AT BEDTIME And - lidocaine - VERIFY PATCH OTHER q 8 H - lidocaine 4 % 1 Patch (SALONPAS) 1 Patch TRANSDERMAL DAILY And - lidocaine patch - REMOVE OTHER AT BEDTIME And - lidocaine - VERIFY PATCH OTHER q 8 H - pantoprazole DR 40 mg tab(s) (PROTONIX) 40 mg ORAL DAILY - hydrALAZINE 10 mg tab(s) (APRESOLINE) 10 mg ORAL QID PRN - amLODIPine 10 mg tab(s) (NORVASC) 10 mg ORAL DAILY - promethazine 12.5 mg tab(s) (PHENERGAN) 12.5 mg ORAL q 6 H PRN - melatonin 1 mg tab(s) 1 mg ORAL AT BEDTIME PRN - polyvinyl alcohol 1.4 % 1 Drop (LIQUIFILM TEARS) 1 Drop BOTH EYES TID PRN - calcium carbonate 500 mg chewable tab(s) (TUMS) 500 mg ORAL BID PRN - benzonatate 100 mg cap(s) (TESSALON PERLE) 100 mg ORAL TID PRN - benzocaine-menthol 1 Lozenge (CEPACOL) 1 Lozenge MUCOUS MEMBRANE (TOPICAL MOUTH AND THROAT) q 2 H PRN - albuterol HFA 90 mcg/actuation 2 Puff (PROVENTIL HFA, VENTOLIN HFA) 2 Puff INHALATION q 4 H PRN P (more content not included)... [facility] 03-28-2022 Note HNO ID: [id number] Author: Stephen Guy MD Service: Hospital Medicine Author Type: Physician Type: Progress Notes Filed: 03/28/2022 2:52 PM Note Text: DEPARTMENT OF HOSPITAL MEDICINE PROGRESS NOTE SERVICE DATE: 03/28/2022 SERVICE TIME: 2:51 PM Hospital Medicine/Primary Attending: Stephen Guy MD NIGHT AND WEEKEND COVERAGE: TOWER COVERAGE: Days: [phone], please page attending physician. Nights: [phone], please page [place] Hospitalist Night coverage pager [phone]. Subjective INTERVAL HPI: Awaiting placement [facility]. Current Facility-Administered Medications Medication Dose Route Frequency - atorvastatin 40 mg tab(s) (LIPITOR) 40 mg ORAL DAILY - clopidogrel 75 mg tab(s) (PLAVIX) 75 mg ORAL DAILY - NaCl 0.9% iv flush bag 20 mL INTRAVENOUS PRN - sodium chloride 0.9 % (flush) 3-5 mL (BD POSIFLUSH) 3-5 mL INTRAVENOUS q 12 H - sodium chloride 0.9 % (flush) 2-10 mL (BD POSIFLUSH) 2-10 mL INTRAVENOUS DIRECTED PRN - NaCl 0.9% iv flush bag 20 mL INTRAVENOUS PRN - sodium chloride 0.9 % (flush) 3-5 mL (BD POSIFLUSH) 3-5 mL INTRAVENOUS q 12 H - docusate sodium 100 mg cap(s) (COLACE) 100 mg ORAL BID PRN - acetaminophen 650 mg tab(s) (TYLENOL) 650 mg ORAL q 6 H PRN - dicyclomine 20 mg tab(s) (BENTYL) 20 mg ORAL q 6 H PRN - loperamide 2 mg cap(s) (IMODIUM) 2 mg ORAL TID PRN - enoxaparin 40 mg injection (LOVENOX) 40 mg SUBCUTANEOUS q 12 HR - lidocaine 4 % 1 Patch (SALONPAS) 1 Patch TRANSDERMAL DAILY And - lidocaine patch - REMOVE OTHER AT BEDTIME And - lidocaine - VERIFY PATCH OTHER q 8 H - lidocaine 4 % 1 Patch (SALONPAS) 1 Patch TRANSDERMAL DAILY And - lidocaine patch - REMOVE OTHER AT BEDTIME And - lidocaine - VERIFY PATCH OTHER q 8 H - pantoprazole DR 40 mg tab(s) (PROTONIX) 40 mg ORAL DAILY - hydrALAZINE 10 mg tab(s) (APRESOLINE) 10 mg ORAL QID PRN - amLODIPine 10 mg tab(s) (NORVASC) 10 mg ORAL DAILY - promethazine 12.5 mg tab(s) (PHENERGAN) 12.5 mg ORAL q 6 H PRN Objective PHYSICAL EXAM: BP 126/66 Pulse 86 Temp (Src) 98 (Temporal) Resp 20 Ht 5' 6" (1.68m) Wt 334 lb 3.5 oz (151.6kg) SpO2 96% LMP 01/11/2015 BMI 53.97 kg/(m2). O2 Therapy: Room Air Physical Exam Performed GENERAL: Alert, no distress, cooperative LUNGS: Lungs clear to auscultation, Good diaphragmatic excursion CARDIAC: Normal S1 and S2; no rubs, murmurs, or gallops ABDOMEN: Abdomen soft, non-tender, BS normal, No masses or organomegaly EXTREMITIES: Extremities normal, no deformities, edema, clubbing or skin discoloration. Good capillary refill., No ulcers NEURO: left arm and left leg strength 3/5, decreased sensation on left arm and left leg PULSES: 2+ radial, 2+ carotid Lines, Drains, and Airways Line Peripheral 03/27/22 1951 Left Forearm 20 Gauge <1 day Drain External Collection Device 03/28/22 0600 <1 day Reviewed lines and needs to be continued: REASONS: Telemetry DATA: Diagnostic tests reviewed for today's visit: Most recent labs Most recent imaging Assessment/Plan Problem List Left-sided weakness POA: Yes Ulcerative colitis, chronic (HCC) POA: Yes Morbid obesity (HCC) POA: Yes Recent cerebrovascular accident (CVA) POA: Yes COVID-19 POA: . GERD (gastroesophageal reflux disease) POA: Yes Essential hypertension POA: Yes Hyperlipidemia POA: . Elevated glucose POA: . Stroke-like symptoms POA: Yes COVID POA: Yes HOSPITAL COURSE: Bradley Matos is a 56 year old female presented with past medical history of anxiety, HTN, fatigue, UC, morbid obesity, PTSD, GERD, HLD presents with weakness, symptoms began 02/28 are constant in nature and now newly associated w/ numbness and tingling to left face, LUE, LLE, nausea, headache, neck pain, upper mid back pain and left shoulder pain. She states that symptoms initially began 02/28 evaluated at [facility] for slurred speech subsequently was transferred to [facility] and was diagnosed with an acute stroke, patient unable to state location. During the course of hospitalization she notes that she was COIVD + and was transferred to the rehab facility, w/residual left sided weakness, however she left A on 03/08. She has not yet had neurology follow-up. She returned home but was not feeling well and presented to [facility] on 03/08 where she was found to be COVID-19 (+), she was treated w/ 5 days of dex (5 days at discharge), and remdesivir d/t NC oxygen requirement and discharged to rehab at [facility]. She notes that she was dong well at the rehab facility and was able to ambulate independently with assistive devices to the bathroom. However on 03/20 while ambulating back to bed from the bathroom she experienced weakness to her Left side and was unable to hold her weight and fell to the floor. She denies any LOC or hitting her head at the time of the fall. She states since the fall the weakness has become so much that she is now unable to overcome gravity to (more content not included)... [facility] 03-28-2022 Note HNO ID: [id number] Author: Erica Aguillon RN Service: Care Management Author Type: Registered Nurse Type: Care Mgt Progress Note Filed: 03/28/2022 12:45 PM Note Text: CARE MANAGEMENT PROGRESS NOTE SERVICE DATE: 03/28/2022 SERVICE TIME: 12:43 PM LOS: [address] Guy pt. will be ready for transfer to [facility] tomorrow Friday03/29/2022. Message to [facility] if they can accept Pt. Friday AM. SIGNATURE: Erica Aguillon RN,BSN, ACM PATIENT NAME: Bradley Matos DATE: March 28, 2022 TIME: 12:43 PM PAGER/CONTACT #: [phone] [facility] 03-28-2022 Note HNO ID: [id number] Author: Erica Aguillon RN Service: Care Management Author Type: Registered Nurse Type: Care Mgt Progress Note Filed: 03/28/2022 10:57 AM Note Text: CARE MANAGEMENT PROGRESS NOTE SERVICE DATE: 03/28/2022 SERVICE TIME: 10:54 AM LOS: 3 days EMR reviewed for this 56 yr Female admitted with Stroke Like Symptoms. Ortho rec CT Scan L Hip [facility] interested in accepting Pt. will check Benefits. SIGNATURE: Erica Aguillon RN,BSN, ACM PATIENT NAME: Bradley Matos DATE: March 28, 2022 TIME: 10:53 AM PAGER/CONTACT #: [phone] [facility] 03-28-2022 Note HNO ID: [id number] Author: Kurt Evans MD Service: Infectious Disease Author Type: Physician Type: Progress Notes Filed: 03/28/2022 1:45 PM Note Text: INFECTIOUS DISEASE PROGRESS NOTE Patient Name: Bradley Matos INTERVAL HISTORY: Patient seen and evaluated. Following for persistent COVID. Currently resting in bed in [facility]. She is oxygenating well on room air with SpO2 ranging from 94-95% on room air. Patient denies fevers, chills, sweats, or rigors. Denies nausea/ vomiting/ diarrhea. Afebrile for 24 hours. Tmax 98.6 F. ? IMAGES CT Brain - No acute intracranial abnormalities. No significant change from previous imaging. Chronic right caudate nucleus lacunar infarct. Chronic anterior medial right thalamic infarct. Mild degree supratentorial chronic microvascular ischemic changes posterior centrum semiovale as well as posterior body right side of the corpus callosum. ? CT cervical spine - No CT evidence of acute osseous abnormality of the cervical or thoracic spine.?No acute bone destruction, osseous lesion or fracture. C4-C5 and lesser degree C5-6 and C6-7 levels: Moderate to severe left foraminal stenosis secondary to uncovertebral hypertrophy. ? CXR - No acute radiographic traumatic abnormality ? XR L Hip - No acute fracture identified. ?Consider crosstable lateral view. Left hip osteoarthritis ? XR Shoulder - No acute traumatic abnormality? MRI/MRA BRAIN AND CERVICAL SPINE WO IVCON - 1. ?ACUTE INFARCTION IN RIGHT KEE RADIATA 2. ?NO DEFINITIVE HEMORRHAGE 3. ?UNREMARKABLE MRA HEAD 4. ?LIMITED AND MOTION CORRUPTED CERVICAL SEQUENCE, DEMONSTRATES NO DOMINANT ABNORMALITY Patient Active Hospital Problem List: Left-sided weakness (03/20/2022) Ulcerative colitis, chronic (HCC) (01/12/2016) Morbid obesity (HCC) (10/29/2017) Recent cerebrovascular accident (CVA) (03/09/2022) COVID-19 (03/09/2022) GERD (gastroesophageal reflux disease) (03/20/2022) Essential hypertension (12/16/2018) Hyperlipidemia (03/25/2022) Elevated glucose (03/25/2022) Stroke-like symptoms (03/25/2022) COVID (03/25/2022) ASSESSMENT: Persistent COVID Recent CVA, now with new stroke found on MRI/MRA Anxiety Hypertension Chronic fatigue syndrome Osteoarthritis Fibromyalgia Post-traumatic stress disorder Sjogren's syndrome RECOMMENDATIONS: Will follow for persistent COVID (resolved) Hold dexamethasone AND RDV therapy -> Patient recently completed these therapies from 03/08-03/12 and 03/08-03/17 In setting of persistent COVID infection, patient is not a candidate for Bebtalovimab Monitor CBC, CMP daily? Monitor off abx Not currently a candidate for Baricitinib administration, oxygenating well on RA Monitor temperatures and counts IS AC managed by primary MEDICATIONS: reviewed. Current Facility-Administered Medications Medication Dose Route Frequency - atorvastatin 40 mg tab(s) (LIPITOR) 40 mg ORAL DAILY - clopidogrel 75 mg tab(s) (PLAVIX) 75 mg ORAL DAILY - NaCl 0.9% iv flush bag 20 mL INTRAVENOUS PRN - sodium chloride 0.9 % (flush) 3-5 mL (BD POSIFLUSH) 3-5 mL INTRAVENOUS q 12 H - sodium chloride 0.9 % (flush) 2-10 mL (BD POSIFLUSH) 2-10 mL INTRAVENOUS DIRECTED PRN - NaCl 0.9% iv flush bag 20 mL INTRAVENOUS PRN - sodium chloride 0.9 % (flush) 3-5 mL (BD POSIFLUSH) 3-5 mL INTRAVENOUS q 12 H - docusate sodium 100 mg cap(s) (COLACE) 100 mg ORAL BID PRN - acetaminophen 650 mg tab(s) (TYLENOL) 650 mg ORAL q 6 H PRN - dicyclomine 20 mg tab(s) (BENTYL) 20 mg ORAL q 6 H PRN - loperamide 2 mg cap(s) (IMODIUM) 2 mg ORAL TID PRN - enoxaparin 40 mg injection (LOVENOX) 40 mg SUBCUTANEOUS q 12 HR - lidocaine 4 % 1 Patch (SALONPAS) 1 Patch TRANSDERMAL DAILY And - lidocaine patch - REMOVE OTHER AT BEDTIME And - lidocaine - VERIFY PATCH OTHER q 8 H - lidocaine 4 % 1 Patch (SALONPAS) 1 Patch TRANSDERMAL DAILY And - lidocaine patch - REMOVE OTHER AT BEDTIME And - lidocaine - VERIFY PATCH OTHER q 8 H - pantoprazole DR 40 mg tab(s) (PROTONIX) 40 mg ORAL DAILY - hydrALAZINE 10 mg tab(s) (APRESOLINE) 10 mg ORAL QID PRN - amLODIPine 10 mg tab(s) (NORVASC) 10 mg ORAL DAILY - promethazine 12.5 mg tab(s) (PHENERGAN) 12.5 mg ORAL q 6 H PRN PHYSICAL EXAM: Vital signs: BP 116/59 Pulse 92 Temp 36.6 ?C (97.9 ?F) (Temporal) Resp 20 Ht 167.6 cm (5' 6") Wt (!) 151.6 kg (334 lb 3.5 oz) LMP 01/11/2015 SpO2 95% BMI 53.94 kg/m? Temp (24hrs), Av.7 ?C (98 ?F), Min:36.4 ?C (97.5 ?F), Max:37 ?C (98.6 ?F) General: alert, oriented, NAD Neuro: left sided weakness Lungs: bilaterally clear to auscultation Heart: regular rate and rhythm Abdomen: soft, non tender, non distended, BS+ : no CVAT Extremities: no edema Skin: No rashes MSK: left hip pain, no joint inflammation Lines ok Lines, Drains, and Airways Line Peripheral 03/27/22 195 Left Forearm 20 Gauge <1 day Drain External Collection Device 03/28/22 0600 <1 day (more content not included)... [facility] 03-27-2022 Note HNO ID: [id number] Author: Stephen Guy MD Service: Hospital Medicine Author Type: Physician Type: Progress Notes Filed: 03/27/2022 4:21 PM Note Text: DEPARTMENT OF HOSPITAL MEDICINE PROGRESS NOTE SERVICE DATE: 03/27/2022 SERVICE TIME: 4:09 PM Hospital Medicine/Primary Attending: Stephen Guy MD NIGHT AND WEEKEND COVERAGE: TOWER COVERAGE: Days: [phone], please page attending physician. Nights: [phone], please page [facility] Night coverage pager [phone]. Subjective INTERVAL HPI: Was unable to complete the MRI adequately Able to lift the left arm today Current Facility-Administered Medications Medication Dose Route Frequency - atorvastatin 40 mg tab(s) (LIPITOR) 40 mg ORAL DAILY - clopidogrel 75 mg tab(s) (PLAVIX) 75 mg ORAL DAILY - NaCl 0.9% iv flush bag 20 mL INTRAVENOUS PRN - sodium chloride 0.9 % (flush) 3-5 mL (BD POSIFLUSH) 3-5 mL INTRAVENOUS q 12 H - sodium chloride 0.9 % (flush) 2-10 mL (BD POSIFLUSH) 2-10 mL INTRAVENOUS DIRECTED PRN - NaCl 0.9% iv flush bag 20 mL INTRAVENOUS PRN - sodium chloride 0.9 % (flush) 3-5 mL (BD POSIFLUSH) 3-5 mL INTRAVENOUS q 12 H - docusate sodium 100 mg cap(s) (COLACE) 100 mg ORAL BID PRN - acetaminophen 650 mg tab(s) (TYLENOL) 650 mg ORAL q 6 H PRN - dicyclomine 20 mg tab(s) (BENTYL) 20 mg ORAL q 6 H PRN - loperamide 2 mg cap(s) (IMODIUM) 2 mg ORAL TID PRN - enoxaparin 40 mg injection (LOVENOX) 40 mg SUBCUTANEOUS q 12 HR - lidocaine 4 % 1 Patch (SALONPAS) 1 Patch TRANSDERMAL DAILY And - lidocaine patch - REMOVE OTHER AT BEDTIME And - lidocaine - VERIFY PATCH OTHER q 8 H - lidocaine 4 % 1 Patch (SALONPAS) 1 Patch TRANSDERMAL DAILY And - lidocaine patch - REMOVE OTHER AT BEDTIME And - lidocaine - VERIFY PATCH OTHER q 8 H - pantoprazole DR 40 mg tab(s) (PROTONIX) 40 mg ORAL DAILY - hydrALAZINE 10 mg tab(s) (APRESOLINE) 10 mg ORAL QID PRN - amLODIPine 10 mg tab(s) (NORVASC) 10 mg ORAL DAILY Objective PHYSICAL EXAM: BP 121/58 Pulse 91 Temp (Src) 98.6 (Temporal) Resp 20 Ht 5' 6" (1.68m) Wt 337 lb 4.9 oz (153.0kg) SpO2 94% LMP 01/11/2015 BMI 54.47 kg/(m2). O2 Therapy: Room Air Physical Exam Performed GENERAL: Alert, no distress, cooperative LUNGS: Lungs clear to auscultation, Good diaphragmatic excursion CARDIAC: Normal S1 and S2; no rubs, murmurs, or gallops ABDOMEN: Abdomen soft, non-tender, BS normal, No masses or organomegaly EXTREMITIES: Extremities normal, no deformities, edema, clubbing or skin discoloration. Good capillary refill., No ulcers NEURO: left arm and left leg strength 3/5, decreased sensation on left arm and left leg PULSES: 2+ radial, 2+ carotid Lines, Drains, and Airways Line Peripheral 03/25/221999 Assessment Short Left Forearm 20 Gauge 1 day Drain External Collection Device 03/25/221999 Assessment 1 day Reviewed lines and needs to be continued: REASONS: Telemetry DATA: Diagnostic tests reviewed for today's visit: Most recent labs Most recent imaging Assessment/Plan Problem List Left-sided weakness POA: Yes Ulcerative colitis, chronic (HCC) POA: Yes Morbid obesity (HCC) POA: Yes Recent cerebrovascular accident (CVA) POA: Yes COVID-19 POA: . GERD (gastroesophageal reflux disease) POA: Yes Essential hypertension POA: Yes Hyperlipidemia POA: . Elevated glucose POA: . Stroke-like symptoms POA: Yes COVID POA: Yes HOSPITAL COURSE: Bradley Matos is a 56 year old female presented with past medical history of anxiety, HTN, fatigue, UC, morbid obesity, PTSD, GERD, HLD presents with weakness, symptoms began 02/28 are constant in nature and now newly associated w/ numbness and tingling to left face, LUE, LLE, nausea, headache, neck pain, upper mid back pain and left shoulder pain. She states that symptoms initially began 02/28 evaluated at [facility] for slurred speech subsequently was transferred to [facility] and was diagnosed with an acute stroke, patient unable to state location. During the course of hospitalization she notes that she was COIVD + and was transferred to the rehab facility, w/residual left sided weakness, however she left AMA on 7/1. She has not yet had neurology follow-up. She returned home but was not feeling well and presented to [facility] on 03/08 where she was found to be COVID-19 (+), she was treated w/ 5 days of dex (5 days at discharge), and remdesivir d/t NC oxygen requirement and discharged to rehab at [facility]. She notes that she was dong well at the rehab facility and was able to ambulate independently with assistive devices to the bathroom. However on 03/20 while ambulating back to bed from the bathroom she experienced weakness to her Left side and was unable to hold her weight and fell to the floor. She denies any LOC or hitting her head at the time of the fall. She states since the fall the weakness has become so much that she is now unable to overcome gravity (more content not included)... [facility] 03-27-2022 Note HNO ID: [id number] Author: Erica Aguillon RN Service: Care Management Author Type: Registered Nurse Type: Care Mgt Progress Note Filed: 03/27/2022 3:22 PM Note Text: CARE MANAGEMENT PROGRESS NOTE SERVICE DATE: 03/27/2022 SERVICE TIME: 3:20 PM LOS: 2 days TCC made phone call to Pt. to explaint PT/OT Evals. Pt. agrees to send referral to [facility]. SIGNATURE: Erica Aguillon RN,BSN, ACM PATIENT NAME: Bradley Matos DATE: March 27, 2022 TIME: 3:20 PM PAGER/CONTACT #: [phone] [facility] 03-27-2022 Note HNO ID: [id number] Author: Erwin Ahn Jr., MD Service: Neurology General Author Type: Physician Type: Plan of Care Filed: 03/27/2022 8:22 AM Note Text: NEUROLOGY PLAN OF CARE MRI brain completed with MRA head but unfortunately no neck imaging. Patient reportedly had prior stroke of R kee radiata 1 month ago, with evidence of acute stroke in that region on review of current MRI imaging. Unfortunately do not know extent of change from prior imaging but given correlation on ADC, these are likely new or new extension of prior stroke. Agree with rad report indicatin. ?ACUTE INFARCTION IN RIGHT KEE RADIATA 2. ?NO DEFINITIVE HEMORRHAGE 3. ?UNREMARKABLE MRA HEAD 4. ?LIMITED AND MOTION CORRUPTED CERVICAL SEQUENCE, DEMONSTRATES NO DOMINANT ABNORMALITY Impression: Patient with reported recent stroke in February 2022, with residual left side weakness. Treated at OSH, with those records not available for review. Now presents from acute rehab with reported worsening of the residual left sided weakness (leg > arm). Etiology of new weakness uncertain. MRI brain as above showing new stroke vs extension of prior stroke -- prior imaging not available for review. ? -Continue Plavix 75mg daily. However with history of bleeding ulcers may be safer to be on enteric coated ASA 81mg daily. Would recommend clarification of dx with GI and their recommendations regarding antiplt therapy. However, given history of stroke should be on antiplt therapy unless complete contraindication as per GI. Will avoid DAPT given GI hx. -Continue statin therapy. -Get records from [facility] ([facility]) to clarify prior workup and determine if further testing needed -- also will allow for comparison of imaging studies. -BP goal <140/90 -Glucose goal <140. -MRA head and neck or carotid dopplers to confirm no carotid stenosis. -Hold on ECHO unless not completed at OSH last month.. -Tele to evaluate for cardiac source of stroke (evaluate for afib as cardio-embolic source). As pt was not d/c'd previously on event monitor would recommend one be completed following this hospital stay. -Consult PT/OT/Speech therapy with consideration for rehab placement. -Needs follow up with stroke (cerebrovascular) clinic in 2 weeks. ? Erwin Ahn MD [facility] 03-26-2022 Note HNO ID: [id number] Author: Stephen Guy MD Service: Hospital Medicine Author Type: Physician Type: Progress Notes Filed: 03/26/2022 4:27 PM Note Text: DEPARTMENT OF HOSPITAL MEDICINE PROGRESS NOTE SERVICE DATE: 03/26/2022 SERVICE TIME: 2:12 PM Hospital Medicine/Primary Attending: Stephen Guy MD NIGHT AND WEEKEND COVERAGE: TOWER COVERAGE: Days: [phone], please page attending physician. Nights: [phone], please page [place] Night coverage pager [phone]. Subjective INTERVAL HPI: Says left arm left leg weakness is improving Current Facility-Administered Medications Medication Dose Route Frequency - pantoprazole DR 20 mg tab(s) (PROTONIX) 20 mg ORAL DAILY - atorvastatin 40 mg tab(s) (LIPITOR) 40 mg ORAL DAILY - clopidogrel 75 mg tab(s) (PLAVIX) 75 mg ORAL DAILY - NaCl 0.9% iv flush bag 20 mL INTRAVENOUS PRN - sodium chloride 0.9 % (flush) 3-5 mL (BD POSIFLUSH) 3-5 mL INTRAVENOUS q 12 H - sodium chloride 0.9 % (flush) 2-10 mL (BD POSIFLUSH) 2-10 mL INTRAVENOUS DIRECTED PRN - NaCl 0.9% iv flush bag 20 mL INTRAVENOUS PRN - sodium chloride 0.9 % (flush) 3-5 mL (BD POSIFLUSH) 3-5 mL INTRAVENOUS q 12 H - docusate sodium 100 mg cap(s) (COLACE) 100 mg ORAL BID PRN - acetaminophen 650 mg tab(s) (TYLENOL) 650 mg ORAL q 6 H PRN - dicyclomine 20 mg tab(s) (BENTYL) 20 mg ORAL q 6 H PRN - loperamide 2 mg cap(s) (IMODIUM) 2 mg ORAL TID PRN - enoxaparin 40 mg injection (LOVENOX) 40 mg SUBCUTANEOUS q 12 HR - diazePAM 2 mg tab(s) (VALIUM) 2 mg ORAL ONCE - lidocaine 4 % 1 Patch (SALONPAS) 1 Patch TRANSDERMAL DAILY And - lidocaine patch - REMOVE OTHER AT BEDTIME And - lidocaine - VERIFY PATCH OTHER q 8 H - lidocaine 4 % 1 Patch (SALONPAS) 1 Patch TRANSDERMAL DAILY And - lidocaine patch - REMOVE OTHER AT BEDTIME And - lidocaine - VERIFY PATCH OTHER q 8 H Objective PHYSICAL EXAM: BP 133/73 Pulse 82 Temp (Src) 97.9 (Oral) Resp 20 Ht 5' 6" (1.68m) Wt 338 lb 3 oz (153.4kg) SpO2 94% LMP 01/11/2015 BMI 54.61 kg/(m2). O2 Therapy: Room Air Physical Exam Performed GENERAL: Alert, no distress, cooperative LUNGS: Lungs clear to auscultation, Good diaphragmatic excursion CARDIAC: Normal S1 and S2; no rubs, murmurs, or gallops ABDOMEN: Abdomen soft, non-tender, BS normal, No masses or organomegaly EXTREMITIES: Extremities normal, no deformities, edema, clubbing or skin discoloration. Good capillary refill., No ulcers NEURO: left arm and left leg strength 3/5, decreased sensation on left arm and left leg PULSES: 2+ radial, 2+ carotid Lines, Drains, and Airways Line Peripheral 03/25/221999 Assessment Short Left Forearm 20 Gauge <1 day Drain External Collection Device 03/25/221999 Assessment <1 day Reviewed lines and needs to be continued: REASONS: Telemetry DATA: Diagnostic tests reviewed for today's visit: Most recent labs Most recent imaging Assessment/Plan Problem List Left-sided weakness POA: Yes Ulcerative colitis, chronic (HCC) POA: Yes Morbid obesity (HCC) POA: Yes Recent cerebrovascular accident (CVA) POA: Yes COVID-19 POA: . GERD (gastroesophageal reflux disease) POA: Yes Essential hypertension POA: Yes Hyperlipidemia POA: . Elevated glucose POA: . Stroke-like symptoms POA: Yes COVID POA: Yes HOSPITAL COURSE: Bradley Matos is a 56 year old female presented with past medical history of anxiety, HTN, fatigue, UC, morbid obesity, PTSD, GERD, HLD presents with weakness, symptoms began 02/28 are constant in nature and now newly associated w/ numbness and tingling to left face, LUE, LLE, nausea, headache, neck pain, upper mid back pain and left shoulder pain. She states that symptoms initially began 02/28 evaluated at [facility] for slurred speech subsequently was transferred to [facility] and was diagnosed with an acute stroke, patient unable to state location. During the course of hospitalization she notes that she was COIVD + and was transferred to the rehab facility, w/residual left sided weakness, however she left AMA on 03/08. She has not yet had neurology follow-up. She returned home but was not feeling well and presented to [facility] on 03/08 where she was found to be COVID-19 (+), she was treated w/ 5 days of dex (5 days at discharge), and remdesivir d/t NC oxygen requirement and discharged to rehab at [facility]. She notes that she was dong well at the rehab facility and was able to ambulate independently with assistive devices to the bathroom. However on 03/20 while ambulating back to bed from the bathroom she experienced weakness to her Left side and was unable to hold her weight and fell to the floor. She denies any LOC or hitting her head at the time of the fall. She states since the fall the weakness has become so much that she is now unable to overcome gravity to her left side and endorses numbness and tingling to the LUE/LLE which began on Friday.She als (more content not included)... [facility] 03-26-2022 Note HNO ID: [id number] Author: Erica Aguillon RN Service: Care Management Author Type: Registered Nurse Type: Care Mgt Initial Assessment Filed: 03/26/2022 11:53 AM Note Text: CARE MANAGEMENT: ASSESSMENT AND DISCHARGE PLAN SERVICE DATE: March 26, 2022 SERVICE TIME: 11:49 AM PRIMARY CARE PHYSICIAN: Didier Hicks MD Primary Contact: Extended Emergency Contact Information Primary Emergency Contact: Daiana Mcghee Address: [address] Relation: Daughter ADMISSION STATUS: Inpatient Insurance Provider: MEDICARE A NEEDS PRIOR TO DISCHARGE Needs Prior to Discharge: To Be Determined;Discharge Prescriptions;Discharge Transportation;OT/PT Evaluation;Accepting Facility;Facility or Agency Choices POTENTIAL TRANSITION PLANS Snf Facility/Intermediate Care Facility;To Be Determined Based on clinical judgement, Care Management will address the following needs: Functional (Recurrence of Stroke Like Symptoms) Patient's perception of need for this admission: Stroke Like Symptoms ADVANCE DIRECTIVES Current Advance Directive: None Small Business Representative Attempted to Assist with AD Completion: Yes Action: Education Provided MS/BEHAVIOR Baseline Mental Status Prior to this Illness what was the patient's Baseline Mental Status?: Alert AND Oriented Prior to this illness, has anyone described the patient having any of the following behaviors?: Not Applicable Relationship of the informant to the patient:: Self READMISSION Last Discharge Date: 03/25/22 Is this Within the Past 30 days? From what level of care did patient present?: Skilled Home Health Care Facility Name/Phone Number: [facility] Last discharge within 30 days: Yes Is this a planned readmission?: No Unplanned Reason: New or recurring symptoms of underlying disease Followed Up with Appointment Prior to Admission: Other: See Comment (Pt. 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 scores in the EMR?: No Any potential risks related to substance abuse and/or behavioral health?: No Based on clinical judgement, Care Management will address the following needs: Functional (Recurrence of Stroke Like Symptoms) CAREGIVER ASSESSMENT Caregiver is ready, willing and able to meet the patient's needs as recommended by the inter-professional team:: Other: See Comment (Readmitted from [facility]) Patient's transition needs and plan for meeting these needs: Return to [facility]. MEDICAL Medical Needs: Two or more chronic diseases Health Issues Impacting Discharge Plan: Newly diagnosed Newly Diagnosed: Stroke Like Symptoms Medication Adherance I am convinced of the importance of my prescription medication: 0 - Agree Completely I worry that my prescription medication will do more harm than good to me : 0 - Disagree Completely I feel financially burdened by my [id number] expenses for my prescription medication:: 0 - Disagree Completely Risk Score: 0 Patient is categorized as: Low risk < 2 SOCIAL Living Arrangements: Nursing Facility Facility Information: [facility] Level of Care: Skilled Financial Resources: Unemployed Health Literacy How often do you need to have someone help you when you read instructions, pamphlets, or other written material from your doctor or pharmacy? : 3 - Sometimes How confident are you filling out medical forms by yourself?: 3 - Somewhat Food Insecurity: No Food Insecurity ? ? Worried About Running Out of Food in the Last Year: Never true ? ? Ran Out of Food in the Last Year: Never true Financial Resource Strain: Low Risk ? ? Difficulty of Paying Living Expenses: Not hard at all Transportation Needs: No Transportation Needs ? ? Lack of Transportation (Medical): No ? ? Lack of Transportation (Non-Medical): No Housing Stability: Low Risk ? ? Unable to Pay for Housing in the Last Year: No ? ? Number of Places Lived in the Last Year: 1 ? ? Unstable Housing in the Last Year: No BEHAVIORAL/COGNITIVE Psychosocial Psychosocial Needs: None FUNCTIONAL How do you manage to accomplish the following: Needs Assistance: Ambulation;Bathe/Shower;Dress;Me als/Meal Prep;Going to the bathroom;Medication Management Services/Needs//Equipment Does Patient Currently Receive Any Community Services or Home Care?: None Equipment Prior to Admission: Walker Has the Patient Been in a Snf Facility i (more content not included)... [facility] 03-26-2022 Note HNO ID: [id number] Author: Martha Tejeda RN Service: Nursing Author Type: Registered Nurse Type: Progress Notes Filed: 03/25/2022 10:44 PM Note Text: 2243: Pt is having some nausea. She is requesting phenergan. Hospitalist paged and made aware. [facility] 03-25-2022 Miscellaneous Notes Had a stroke in February, was admitted at [facility] in March with Covid - after that went to rehab. C/o increased weakness and numbness left side for the last [address] brain in ER no ac stroke. Covid test still + but no symptoms. Will be admitted at [facility] for further neuro work-up. documented in this encounter [facility] 03-25-2022 Note HNO ID: [id number] Author: Joelle Johnson RN Service: Nursing Author Type: Registered Nurse Type: Nursing Progress Note Filed: 03/25/2022 9:35 AM Note Text: Dr Gutierrez here to see pt at this time [facility] 03-23-2022 Note HNO ID: [id number] Author: Interface Note Service: ? Author Type: ? Type: Progress Notes Filed: 03/23/2022 5:52 AM Note Text: Epic Scheduled Downtime: 03/22/2022 10:00:00 PM to 03/23/2022 5:00:00 AM [facility] 03-21-2022 Note HNO ID: [id number] Author: Iliana Garcia APRN.RE Service: Family Practice Author Type: Nurse Practitioner Type: Progress Notes Filed: 03/22/2022 11:58 AM Note Text: INTERNAL MEDICINE PROGRESS NOTE SERVICE DATE: 03/21/2022 SERVICE TIME: 1:30 pm ADMITTING PHYSICIAN: Melba Gutierrez DO Subjective Subjective: Symptoms: Worsening. She reports malaise and weakness. No shortness of breath, cough, chest pain, headache, chest pressure, anorexia, diarrhea or anxiety. Diet: Adequate intake. No nausea or vomiting. Activity level: Impaired due to weakness (States she can't move her left leg). Pain: She complains of pain that is moderate. She reports pain is worsening. Pain is requiring pain medication and poorly controlled (States Tylenol isn't helping). Current Facility-Administered Medications Medication Dose Route Frequency - RABEprazole 20 mg tab(s) (ACIPHEX) 20 mg ORAL BID - miconazole 2 % 1 application topical powder (LOTRIMIN AF, DESENEX) 1 application TOPICAL BID - diphenoxylate-atropine 2.5-0.025 mg 1 tablet (LOMOTIL) 1 tablet ORAL TID PRN - calcium carbonate 500 mg chewable tab(s) (TUMS) 500 mg ORAL BID PRN - loperamide 2 mg cap(s) (IMODIUM) 2 mg ORAL TID PRN - promethazine 25 mg tab(s) (PHENERGAN) 25 mg ORAL q 8 H PRN - amLODIPine 10 mg tab(s) (NORVASC) 10 mg ORAL DAILY - atorvastatin 40 mg tab(s) (LIPITOR) 40 mg ORAL AT BEDTIME - clopidogrel 75 mg tab(s) (PLAVIX) 75 mg ORAL DAILY - dicyclomine 20 mg tab(s) (BENTYL) 20 mg ORAL q 6 H PRN - docusate sodium 100 mg cap(s) (COLACE) 100 mg ORAL BID PRN - hydrALAZINE 10 mg tab(s) (APRESOLINE) 10 mg ORAL QID PRN - methocarbamol 750 mg tab(s) (ROBAXIN) 750 mg ORAL DAILY PRN - acetaminophen 650 mg tab(s) (TYLENOL) 650 mg ORAL q 4 H PRN - lidocaine 4 % 2 Patch (SALONPAS) 2 Patch TRANSDERMAL DAILY - lidocaine patch - REMOVE OTHER AT BEDTIME And - lidocaine - VERIFY PATCH OTHER q 8 H INTERVAL HISTORY OF PRESENT ILLNESS: Patient sustained an assisted fall to the bathroom last night with RN. States her left leg gave out on her. She sustained an abrasion to her right inner arm near her antecubital. She did not hit her head or lose consciousness. She does not wear her hospital socks as directed. She is eating adequately. Not having constipation or diarrhea. Objective Objective: General Appearance: In no acute distress, in pain and uncomfortable. Vital signs: (most recent): Blood pressure 102/56, pulse 91, temperature 36.7 ?C (98.1 ?F), temperature source Oral, resp. rate 18, height 167.6 cm (5' 6"), weight (!) 151.6 kg (334 lb 3.2 oz), last menstrual period 01/11/2015, SpO2 95 %. Vital signs are normal. No fever. Output: Producing urine and producing stool. HEENT: Normal HEENT exam. Lungs: Normal effort and normal respiratory rate. Breath sounds clear to auscultation. Heart: Normal rate. Regular rhythm. S1 normal and S2 normal. Abdomen: Abdomen is soft. (Obese). Bowel sounds are normal. There is no abdominal tenderness. Extremities: Decreased range of motion. There is no dependent edema or local swelling. (Pain with palpation over left hip, no evidence of ecchymosis) Pulses: Distal pulses are intact. Neurological: Patient is alert and oriented to person, place and time. Pupils: Pupils are equal, round, and reactive to light. Skin: Warm and dry. There is a rash (under panus). DATA: Diagnostic tests reviewed for today's visit: Most recent labs and imaging results. Component Latest Ref Rng AND Units 03/20/2022 Protein, Total 6.3 - 8.0 g/dL 6.2 (L) Albumin 3.9 - 4.9 g/dL 3.2 (L) Calcium 8.5 - 10.2 mg/dL 8.5 Bilirubin, Total 0.2 - 1.3 mg/dL 0.4 Alkaline Phosphatase 34 - 123 U/L 61 AST 13 - 35 U/L 17 ALT 7 - 38 U/L 21 Glucose 74 - 99 mg/dL 158 (H) BUN 7 - 21 mg/dL 23 (H) Creatinine 0.58 - 0.96 mg/dL 0.90 Sodium 136 - 144 mmol/L 134 (L) Potassium 3.7 - 5.1 mmol/L 3.6 (L) Chloride 97 - 105 mmol/L 97 CO2 22 - 30 mmol/L 25 Anion Gap 9 - 18 mmol/L 12 eGFR >=60 mL/min/1.73m? 76 WBC 3.70 - 11.00 k/uL 13.20 (H) RBC 3.90 - 5.20 m/uL 4.56 Hemoglobin 11.5 - 15.5 g/dL 13.3 Hematocrit 36.0 - 46.0 % 41.9 MCV 80.0 - 100.0 fL 91.9 MCH 26.0 - 34.0 pg 29.2 MCHC 30.5 - 36.0 g/dL 31.7 RDW-CV 11.5 - 15.0 % 15.5 (H) Platelet Count 150 - 400 k/uL 214 MPV 9.0 - 12.7 fL 9.3 * * *Final Report* * * DATE OF EXAM: Mar 20 2022 ?4:15PM ? LDC ? 0504 ?- ?CT BRAIN WO IVCON ? / PROCEDURE REASON: Recent cerebrovascular accident (CVA) ?? ? * * * * Physician Interpretation * * * * ?EXAMINATION: CT BRAIN WO IVCON CLINICAL HISTORY: Headache, recent CVA TECHNIQUE: ?Serial axial images without IV contrast were obtained from the vertex to the foramen magnum. MQ: ?CTBWO_3 CT Radiation dose: Integrated Dose-Length Product (DLP) for this visit = 882.80 ?mGy*cm CT Dose Reduction Employed: No dose reduction techniques were required COMPARISON: 11/03/2015. RESULT: Suboptima (more content not included)... [facility] 03-21-2022 Note HNO ID: [id number] Author: Luis Fernando Rivera MD Service: General Internal Medicine Author Type: Physician Type: Progress Notes Filed: 03/21/2022 3:51 AM Note Text: Telemedicine cross cover: Pt fell while ambulating to bathroom using walker and 1PA . This nurse was present at the time. Pt did not hit her head but did sustain an area on Left Anticube that looks like blood has surfaced to right under the skin. No change in her vital signs, see chart for entry - no change in range of motion - skin/wound care. [facility] 03-20-2022 Note HNO ID: [id number] Author: Emeterio Ricardo APRN.[employer] Service: Family Practice Author Type: Nurse Practitioner Type: Progress Notes Filed: 03/20/2022 5:48 PM Note Text: Attestation signed by Melba Gutierrez DO at 03/20/2022 6:24 PM I reviewed and agree with the assessment as documented above. SIGNATURE: Melba Gutierrez DO DATE: March 20, 2022 TIME: 6:[address] head was negative for acute stroke, there are chronic changes bilateral and right sided chronic ischemic change. Labs WNL besides mild hypokalemia and leukocytosis. Leukocytosis likely from recent steroids. Will recheck labs on Friday morning. Emeterio Ricardo APRN.[employer] [facility] 03-20-2022 Note HNO ID: [id number] Author: Emeterio Ricardo APRN.[employer] Service: Family Practice Author Type: Nurse Practitioner Type: Progress Notes Filed: 03/20/2022 5:46 PM Note Text: Attestation signed by Melba Gutierrez DO at 03/20/2022 6:25 PM I reviewed and agree with the assessment as documented above. SIGNATURE: Melba Gutierrez DO DATE: March 20, 2022 TIME: 6:25 PM [facility] PROGRESS NOTE SERVICE DATE: 03/20/2022 SERVICE TIME: 1:30 PM Hospital Medicine/Primary Attending: Dr. Gutierrez NIGHT AND WEEKEND COVERAGE: [facility] Physicians/Dr. Gutierrez Subjective Subjective: Symptoms: Worsening. She reports weakness and anxiety. No shortness of breath, cough, chest pain, headache or diarrhea. Diet: Adequate intake. She reports nausea. No vomiting. Activity level: Impaired due to weakness. Pain: (Generalized joint pain). HPI: Patient is having a bad day, feeling more weak, tired. Feeling more stress mentally as today is the anniversary of her son's . She woke up this morning with worsening left sided weakness, left sided facial numbness/tingling and feeling tight in the left side of her face. She was unable to lift her left arm but this is improving, she is able to lift it but has no control of it. She tells me that she did have left sided weakness and difficulty with her speech when she had her stroke a couple weeks ago. She felt that her symptoms improved but today they are getting worse again. She is feeling dizzy and nauseated She feels she needs to rest, not feeling steady at all with walking MEDICATIONS: Reviewed Objective Physical Exam Performed Objective: General Appearance: Ill-appearing. Vital signs: (most recent): Blood pressure 146/80, pulse 75, temperature 36.5 ?C (97.7 ?F), temperature source Oral, resp. rate 18, height 167.6 cm (5' 6"), weight (!) 151.6 kg (334 lb 3.2 oz), last menstrual period 01/11/2015, SpO2 95 %. Vital signs are normal. No fever. Output: Producing urine and producing stool. HEENT: (Left sided facial droop) Lungs: Normal effort and normal respiratory rate. Breath sounds clear to auscultation. Heart: Normal rate. Regular rhythm. S1 normal and S2 normal. Abdomen: Abdomen is soft. Bowel sounds are normal. There is no abdominal tenderness. Extremities: Decreased range of motion. There is no dependent edema. Pulses: Distal pulses are intact. Neurological: Patient is alert and oriented to person, place and time. (Left sided facial droop noted with smiling Speech is clear LUE 3/5 RUE 5/5 LLE 4/5 RLE 5/5 ). Pupils: Pupils are equal, round, and reactive to light. Skin: Warm and dry. Lines, Drains, and Airways None DATA: Diagnostic tests reviewed for today's visit: Most recent labs and imaging results. Assessment/Plan Principal Problem: Aftercare POA: Yes Assessment AND Plan: Continue PT/OT Recent CVA, left sided weakness - left facial N/T and droop is new per patient. CT head ordered to evaluate. On Plavix. Allergic to ASA Feeling more tired and weak today - check labs Active Problems: COVID-19 virus infection POA: Yes Assessment AND Plan: Resolving, currently on RA Generalized weakness POA: Yes Assessment AND Plan: continue PT/OT Suicidal ideation POA: Yes Assessment AND Plan: Continue current medications, no suicidal plan IBS (irritable bowel syndrome) POA: Yes Assessment AND Plan: Continue current medications Resolved Problems: * No resolved hospital problems. * Medication and Non-Pharmacologic VTE Prophylaxis/Anticoagulants Anticoagulant AND Antiplatelet Medications (From admission, onward) Start Dose Route Frequency Last Action Ordered Stop 03/14/22 2300 enoxaparin 60 mg injection (LOVENOX) (enoxaparin injection (LOVENOX)) 60 mg SUBCUTANEOUS EVERY 12 HOURS Given, 03/20 81903/14/22 1231 -- 03/14/22 0900 clopidogrel 75 mg tab(s) (PLAVIX) 75 mg ORAL DAILY Given, 03/20 81903/13/22 1833 -- 03/13/22 1845 activity - mobilize patient (nd,oh) VTE Prophylaxis: VTE prophylaxis appropriate Disposition: To be determined Plan of care discussed with: Provider, RN, Patient SIGNATURE: Emeterio Ricardo APRN.RE PATIENT NAME: Bradley Matos DATE: March 20, 2022 TIME: 5:27 PM PAGER/CONTACT #: [phone] [facility] 03-20-2022 Miscellaneous Notes Patient having increased left sided weakness, left facial tingling, left facial droop today. CT brain ordered. Emeterio Ricardo APRN.RE documented in this encounter [facility] 03-19-2022 Note HNO ID: [id number] Author: Melba Gutierrez DO Service: Family Practice Author Type: Physician Type: Progress Notes Filed: 03/19/2022 9:02 PM Note Text: INPATIENT PROGRESS NOTE SERVICE DATE: 03/19/2022 SERVICE TIME: 12:57 PM PRIMARY SERVICE: FP Subjective CHIEF COMPLAINT: abdominal pain INTERVAL HPI: Pt has history of IBS. She takes lomotil, bentyl and aciphex together when this happens at home. She has slight nausea and generalized abdominal pain. She denies diarrhea, constipation, loss of appetite. 2She understands the pharmacy will not allow her to take aciphex prn here, but she is willing to take it bid as sheduled. Current Facility-Administered Medications Medication Dose Route Frequency - calcium carbonate 500 mg chewable tab(s) (TUMS) 500 mg ORAL BID PRN - loperamide 2 mg cap(s) (IMODIUM) 2 mg ORAL TID PRN - promethazine 25 mg tab(s) (PHENERGAN) 25 mg ORAL q 8 H PRN - amLODIPine 10 mg tab(s) (NORVASC) 10 mg ORAL DAILY - atorvastatin 40 mg tab(s) (LIPITOR) 40 mg ORAL AT BEDTIME - clopidogrel 75 mg tab(s) (PLAVIX) 75 mg ORAL DAILY - dicyclomine 20 mg tab(s) (BENTYL) 20 mg ORAL q 6 H PRN - docusate sodium 100 mg cap(s) (COLACE) 100 mg ORAL BID PRN - hydrALAZINE 10 mg tab(s) (APRESOLINE) 10 mg ORAL QID PRN - methocarbamol 750 mg tab(s) (ROBAXIN) 750 mg ORAL DAILY PRN - acetaminophen 650 mg tab(s) (TYLENOL) 650 mg ORAL q 4 H PRN - lidocaine 4 % 2 Patch (SALONPAS) 2 Patch TRANSDERMAL DAILY - lidocaine patch - REMOVE OTHER AT BEDTIME And - lidocaine - VERIFY PATCH OTHER q 8 H - enoxaparin 60 mg injection (LOVENOX) 60 mg SUBCUTANEOUS q 12 HR - diphenoxylate-atropine 2.5-0.025 mg 1 tablet (LOMOTIL) 1 tablet ORAL TID PRN - miconazole 2 % 1 application topical powder (LOTRIMIN AF, DESENEX) 1 application TOPICAL BID - RABEprazole 20 mg tab(s) (ACIPHEX) 20 mg ORAL BID Objective PHYSICAL EXAM: BP 151/74 Pulse 61 Temp (Src) 97.9 (Oral) Resp 16 Ht 5' 6" (1.68m) Wt 334 lb 3.2 oz (151.6kg) SpO2 95% LMP 01/11/2015 BMI 53.97 kg/(m2). O2 Therapy: Room Air Physical Exam Performed GENERAL: Alert, no distress, cooperative SKIN: Skin color, texture, turgor normal. No rashes or lesions. HEAD/SINUSES: No significant findings EYES: PERRLA, EOMI LUNGS: Lungs clear to auscultation, Good diaphragmatic excursion CARDIAC: Normal S1 and S2; no rubs, murmurs, or gallops ABDOMEN: Abdomen soft, non-tender, BS normal, No masses or organomegaly EXTREMITIES: Extremities normal, no deformities, edema, clubbing or skin discoloration. Good capillary refill., No ulcers NEURO: Gait normal. Reflexes normal and symmetric. Sensation grossly intact, Cranial nerves II-XII intact DATA: Diagnostic tests reviewed for today's visit: No new labs Assessment/Plan Principal Problem: Aftercare POA: Yes Assessment AND Plan: Pt here for PT/OT after hospitalization. She is covid 19 positive, has been in isolation for 10 days Active Problems: Generalized weakness POA: Yes Assessment AND Plan: continue PT/OT COVID-19 virus infection POA: Yes Assessment AND Plan: no further signs or symptoms IBS: bentyl prn, phenergan prn, increase aciphex to bid Suicidal ideation POA: Yes Assessment AND Plan: low risk Resolved Problems: * No resolved hospital problems. * Medication and Non-Pharmacologic VTE Prophylaxis/Anticoagulants Anticoagulant AND Antiplatelet Medications (From admission, onward) Start Dose Route Frequency Last Action Ordered Stop 03/14/22 2300 enoxaparin 60 mg injection (LOVENOX) (enoxaparin injection (LOVENOX)) 60 mg SUBCUTANEOUS EVERY 12 HOURS Given, 03/19 0839 03/14/22 1231 -- 03/14/22 0900 clopidogrel 75 mg tab(s) (PLAVIX) 75 mg ORAL DAILY Given, 03/19 0803/13/22 1833 -- 03/13/22 1845 activity - mobilize patient (nd,oh) VTE Prophylaxis: VTE prophylaxis appropriate SIGNATURE: Melba Gutierrez DO PATIENT NAME: Bradley Matos DATE: March 19, 2022 TIME: 8:57 PM [facility] 03-16-2022 Note HNO ID: [id number] Author: Joelle Johnson RN Service: Nursing Author Type: Registered Nurse Type: Nursing Progress Note Filed: 03/16/2022 3:57 PM Note Text: Pt continues to refuse to wear yellow non-skid socks when OOB. Pt states, "my feet catch on them" [facility] 03-12-2022 Note HNO ID: [id number] Author: Eddy Rebolledo MD Service: General Internal Medicine Author Type: Physician Type: Progress Notes Filed: 03/12/2022 5:29 PM Note Text: INTERNAL MEDICINE PROGRESS NOTE SERVICE DATE: 03/12/2022 ADMITTING PHYSICIAN: Eddy Rebolledo MD Subjective CHIEF COMPLAINT: feeling better, Has cough. Slowly improving, Current Facility-Administered Medications Medication Dose Route Frequency - heparin 5,000 Units injection 5,000 Units SUBCUTANEOUS q 8 H - dicyclomine 20 mg cap(s) (BENTYL) 20 mg ORAL q 6 H PRN - calcium carbonate 500 mg chewable tab(s) (TUMS) 500 mg ORAL BID PRN - pantoprazole DR 20 mg tab(s) (PROTONIX) 20 mg ORAL DAILY - sodium chloride 0.9 % (flush) 3-5 mL (BD POSIFLUSH) 3-5 mL INTRAVENOUS q 12 H - NaCl 0.9% iv flush bag 20 mL INTRAVENOUS PRN - acetaminophen 650 mg tab(s) (TYLENOL) 650 mg ORAL q 6 H PRN - remdesivir in NaCl 0.9% Vial-Mate/ADD-[place] 100 mg 275 mL 100 mg INTRAVENOUS q 24 HR - dexAMETHasone 6 mg (DECADRON) 6 mg ORAL DAILY Or - dexAMETHasone sodium phosphate 6 mg injection (DECADRON) 6 mg INTRAVENOUS DAILY - lidocaine 4 % 2 Patch (SALONPAS) 2 Patch TRANSDERMAL DAILY And - lidocaine patch - REMOVE OTHER AT BEDTIME And - lidocaine - VERIFY PATCH OTHER q 8 H - hydrALAZINE 10 mg tab(s) (APRESOLINE) 10 mg ORAL QID PRN - methocarbamol 750 mg tab(s) (ROBAXIN) 750 mg ORAL QID - docusate sodium 100 mg cap(s) (COLACE) 100 mg ORAL BID PRN - amLODIPine 10 mg tab(s) (NORVASC) 10 mg ORAL DAILY - atorvastatin 40 mg tab(s) (LIPITOR) 40 mg ORAL DAILY - clopidogrel 75 mg tab(s) (PLAVIX) 75 mg ORAL DAILY - capsaicin 0.025 % cream (ZOSTRIX) TOPICAL BID - loperamide 2 mg cap(s) (IMODIUM) 2 mg ORAL TID PRN INTERVAL HISTORY OF PRESENT ILLNESS: No new events. No n/v/d. No orthopnea, pnd,cpain, fever, chills. Consult notes reviewed. Objective PHYSICAL EXAM: Blood pressure 160/106, pulse (!) 59, temperature 36.7 ?C (98.1 ?F), temperature source Oral, resp. rate 18, height 167.6 cm (5' 6"), weight (!) 154 kg (339 lb 8.1 oz), last menstrual period 01/11/2015, SpO2 96 %. Body mass index is 54.8 kg/m?. GENERAL: Alert, No Distress NECK: Supple LUNGS: dec. A/e. CARDIAC: Normal S1 and S2; no rubs, murmurs, or gallops ABDOMEN: Soft, nontender EXTREMITIES: Extremities normal, no deformities, edema, clubbing or skin discoloration. Good capillary refill. NEURO: Alert, oriented X 3, Cranial nerves II-XII intact PULSES: 2+ radial DATA: Diagnostic tests reviewed for today's visit: Most recent labs and imaging results. Assessment/Plan Principal Problem: COVID 19 infection Acute hypoxemic resp. Failure, HTN, Recent CVA HLP. PLAN: Monitor labs, Wean o2, Continue current meds, Monitor clinically. Medication and Non-Pharmacologic VTE Prophylaxis/Anticoagulants Anticoagulant AND Antiplatelet Medications (From admission, onward) Start Dose Route Frequency Last Action Ordered Stop 03/11/22 0730 heparin 5,000 Units injection (Medical Risk Categories) 5,000 Units SUBCUTANEOUS EVERY 8 HOURS Given, 03/12 1301 03/11/22 0710 -- 03/09/22 1130 clopidogrel 75 mg tab(s) (PLAVIX) 75 mg ORAL DAILY Given, 03/12 0903 03/09/22 1117 -- 03/09/22 0315 activity - mobilize patient (nd,oh) VTE Prophylaxis: VTE prophylaxis appropriate SIGNATURE: Eddy Rebolledo MD PATIENT NAME: Bradley Matos [facility] 03-11-2022 Note HNO ID: [id number] Author: Eddy Rebolledo MD Service: General Internal Medicine Author Type: Physician Type: Progress Notes Filed: 03/11/2022 4:31 PM Note Text: INTERNAL MEDICINE PROGRESS NOTE SERVICE DATE: 03/11/2022 ADMITTING PHYSICIAN: Eddy Rebolledo MD Subjective CHIEF COMPLAINT: feeling better, Has cough. Slowly improving, Current Facility-Administered Medications Medication Dose Route Frequency - heparin 5,000 Units injection 5,000 Units SUBCUTANEOUS q 8 H - dicyclomine 20 mg cap(s) (BENTYL) 20 mg ORAL q 6 H PRN - calcium carbonate 500 mg chewable tab(s) (TUMS) 500 mg ORAL BID PRN - pantoprazole DR 20 mg tab(s) (PROTONIX) 20 mg ORAL DAILY - sodium chloride 0.9 % (flush) 3-5 mL (BD POSIFLUSH) 3-5 mL INTRAVENOUS q 12 H - NaCl 0.9% iv flush bag 20 mL INTRAVENOUS PRN - acetaminophen 650 mg tab(s) (TYLENOL) 650 mg ORAL q 6 H PRN - remdesivir in NaCl 0.9% Vial-Mate/ADD-[place] 100 mg 275 mL 100 mg INTRAVENOUS q 24 HR - dexAMETHasone 6 mg (DECADRON) 6 mg ORAL DAILY Or - dexAMETHasone sodium phosphate 6 mg injection (DECADRON) 6 mg INTRAVENOUS DAILY - lidocaine 4 % 2 Patch (SALONPAS) 2 Patch TRANSDERMAL DAILY And - lidocaine patch - REMOVE OTHER AT BEDTIME And - lidocaine - VERIFY PATCH OTHER q 8 H - hydrALAZINE 10 mg tab(s) (APRESOLINE) 10 mg ORAL QID PRN - methocarbamol 750 mg tab(s) (ROBAXIN) 750 mg ORAL QID - docusate sodium 100 mg cap(s) (COLACE) 100 mg ORAL BID PRN - amLODIPine 10 mg tab(s) (NORVASC) 10 mg ORAL DAILY - atorvastatin 40 mg tab(s) (LIPITOR) 40 mg ORAL DAILY - clopidogrel 75 mg tab(s) (PLAVIX) 75 mg ORAL DAILY - capsaicin 0.025 % cream (ZOSTRIX) TOPICAL BID - loperamide 2 mg cap(s) (IMODIUM) 2 mg ORAL TID PRN INTERVAL HISTORY OF PRESENT ILLNESS: No new events. No n/v/d. No orthopnea, pnd,cpain, fever, chills. Consult notes reviewed. Objective PHYSICAL EXAM: Blood pressure 137/72, pulse 69, temperature 36.6 ?C (97.9 ?F), temperature source Oral, resp. rate 18, height 167.6 cm (5' 6"), weight (!) 154 kg (339 lb 8.1 oz), last menstrual period 01/11/2015, SpO2 95 %. Body mass index is 54.8 kg/m?. GENERAL: Alert, No Distress NECK: Supple LUNGS: dec. A/e. CARDIAC: Normal S1 and S2; no rubs, murmurs, or gallops ABDOMEN: Soft, nontender EXTREMITIES: Extremities normal, no deformities, edema, clubbing or skin discoloration. Good capillary refill. NEURO: Alert, oriented X 3, Cranial nerves II-XII intact PULSES: 2+ radial DATA: Diagnostic tests reviewed for today's visit: Most recent labs and imaging results. Assessment/Plan Principal Problem: COVID 19 infection Acute hypoxemic resp. Failure, HTN, Recent CVA HLP. PLAN: Monitor labs, Wean o2, Appreciate ID eval, Continue current meds, Monitor clinically. Medication and Non-Pharmacologic VTE Prophylaxis/Anticoagulants Anticoagulant AND Antiplatelet Medications (From admission, onward) Start Dose Route Frequency Last Action Ordered Stop 03/11/22 0730 heparin 5,000 Units injection (Medical Risk Categories) 5,000 Units SUBCUTANEOUS EVERY 8 HOURS Given, 03/11 92303/11/22 0710 -- 03/09/22 1130 clopidogrel 75 mg tab(s) (PLAVIX) 75 mg ORAL DAILY Given, 03/11 92403/09/22 1117 -- 03/09/22 0315 activity - mobilize patient (nd,ms) VTE Prophylaxis: VTE prophylaxis appropriate SIGNATURE: Eddy Rebolledo MD PATIENT NAME: Bradley Matos [facility] 03-11-2022 Note HNO ID: [id number] Author: Erica Aguillon RN Service: Care Management Author Type: Registered Nurse Type: Care Mgt Initial Assessment Filed: 03/11/2022 9:17 AM Note Text: CARE MANAGEMENT: ASSESSMENT AND DISCHARGE PLAN SERVICE DATE: March 11, 2022 SERVICE TIME: 9:11 AM PRIMARY CARE PHYSICIAN: Didier Hicks MD Primary Contact: Extended Emergency Contact Information Primary Emergency Contact: Daiana Mcghee Address: [address] Relation: Daughter ADMISSION STATUS: Inpatient Insurance Provider: MEDICARE A NEEDS PRIOR TO DISCHARGE Needs Prior to Discharge: To Be Determined;Discharge Prescriptions;Facility or Agency Choices;OT/PT Evaluation;Patient/Family POTENTIAL TRANSITION PLANS Snf Facility/Intermediate Care Facility;To Be Determined Patient's perception of need for this admission: UTI, Urinary incontinence. ADVANCE DIRECTIVES Current Advance Directive: None Small Business Representative Attempted to Assist with AD Completion: Yes Action: Education Provided MS/BEHAVIOR Baseline Mental Status Prior to this Illness what was the patient's Baseline Mental Status?: Alert AND Oriented Prior to this illness, has anyone described the patient having any of the following behaviors?: Not Applicable Relationship of the informant to the patient:: Self READMISSION Last Discharge Date: 02/05/19 Is this Within the Past 30 days? 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 scores in the EMR?: No Any potential risks related to substance abuse and/or behavioral health?: No CAREGIVER ASSESSMENT Caregiver is ready, willing and able to meet the patient's needs as recommended by the inter-professional team:: No Patient's transition needs and plan for meeting these needs: D/C SNF MEDICAL Medical Needs: Two or more chronic diseases Medication Adherance I am convinced of the importance of my prescription medication: 0 - Agree Completely I worry that my prescription medication will do more harm than good to me : 0 - Disagree Completely I feel financially burdened by my [id number] expenses for my prescription medication:: 0 - Disagree Completely Risk Score: 0 Patient is categorized as: Low risk < 2 SOCIAL Living Arrangements: Home Lives With: Alone Financial Resources: Unemployed Health Literacy How often do you need to have someone help you when you read instructions, pamphlets, or other written material from your doctor or pharmacy? : 3 - Sometimes How confident are you filling out medical forms by yourself?: 3 - Somewhat Food Insecurity: Not on file Financial Resource Strain: Not on file Transportation Needs: Not on file Housing Stability: Not on file BEHAVIORAL/COGNITIVE Psychosocial Psychosocial Needs: None FUNCTIONAL How do you manage to accomplish the following: Needs Assistance: Ambulation;Bathe/Shower;Dress;Me als/Meal Prep;Going to the bathroom;Medication Management Services/Needs//Equipment Does Patient Currently Receive Any Community Services or Home Care?: None Equipment Prior to Admission: None Has the Patient Been in a Snf Facility in the Past 30 days?: No No medical discharge barriers identified at this time. No social discharge barriers identified at this time. No behavioral/cognitive discharge barriers identified at this time. Functional Cannot function at home alone. FREEDOM OF CHOICE EXPLAINED: Are you interested in bedside delivery of your medications? No ASSESSMENT AND PLAN: 56 yr Female admitted with COVID +,UTI, Nausea, L Sided Weakness.Hx: Stroke, Fibromyalgia, Obesity, PTSD, Sjogrens syndrome. PT/OT rec SNF. Pt. Recently D/C [facility]. Pt. states she cannot take care of herself and needs SNF. [facility] Referrals sent. SIGNATURE: Erica Aguillon RN,BSN, ACM PATIENT NAME: Bradley Matos DATE: March 11, 2022 TIME: 9:11 AM CONTACT #: [phone] [facility] 03-10-2022 Note HNO ID: [id number] Author: Eddy Rebolledo MD Service: General Internal Medicine Author Type: Physician Type: Progress Notes Filed: 03/11/2022 8:57 AM Note Text: INTERNAL MEDICINE PROGRESS NOTE SERVICE DATE: 03/10/2022 ADMITTING PHYSICIAN: Eddy Rebolledo MD Subjective CHIEF COMPLAINT: feeling better, Has cough. Current Facility-Administered Medications Medication Dose Route Frequency calcium carbonate 500 mg chewable tab(s) (TUMS) 500 mg ORAL BID PRN pantoprazole DR 20 mg tab(s) (PROTONIX) 20 mg ORAL DAILY sodium chloride 0.9 % (flush) 3-5 mL (BD POSIFLUSH) 3-5 mL INTRAVENOUS q 12 H NaCl 0.9% iv flush bag 20 mL INTRAVENOUS PRN heparin 5,000 Units injection 5,000 Units SUBCUTANEOUS q 12 H acetaminophen 650 mg tab(s) (TYLENOL) 650 mg ORAL q 6 H PRN remdesivir in NaCl 0.9% Vial-Mate/ADD-[place] 100 mg 275 mL 100 mg INTRAVENOUS q 24 HR dexAMETHasone 6 mg (DECADRON) 6 mg ORAL DAILY Or dexAMETHasone sodium phosphate 6 mg injection (DECADRON) 6 mg INTRAVENOUS DAILY lidocaine 4 % 2 Patch (SALONPAS) 2 Patch TRANSDERMAL DAILY And lidocaine patch - REMOVE OTHER AT BEDTIME And lidocaine - VERIFY PATCH OTHER q 8 H hydrALAZINE 10 mg tab(s) (APRESOLINE) 10 mg ORAL QID PRN methocarbamol 750 mg tab(s) (ROBAXIN) 750 mg ORAL QID docusate sodium 100 mg cap(s) (COLACE) 100 mg ORAL BID PRN amLODIPine 10 mg tab(s) (NORVASC) 10 mg ORAL DAILY atorvastatin 40 mg tab(s) (LIPITOR) 40 mg ORAL DAILY clopidogrel 75 mg tab(s) (PLAVIX) 75 mg ORAL DAILY capsaicin 0.025 % cream (ZOSTRIX) TOPICAL BID loperamide 2 mg cap(s) (IMODIUM) 2 mg ORAL TID PRN INTERVAL HISTORY OF PRESENT ILLNESS: No new events. No n/v/d. No orthopnea, pnd,cpain, fever, chills. Consult notes reviewed. Objective PHYSICAL EXAM: Patient Vitals for the past 24 hrs: BP Temp Temp src Pulse Resp SpO2 03/10/22 1130 148/72 36.6 ?C (97.9 ?F) Oral 68 18 92 % 03/10/22 0859 165/72 36.5 ?C (97.7 ?F) Oral 64 20 95 % 03/10/22 0523 154/74 36.7 ?C (98.1 ?F) Oral 66 14 94 % 03/09/22 2337 146/74 36.7 ?C (98.1 ?F) Oral 74 14 94 % 03/09/22 2119 144/67 36.7 ?C (98.1 ?F) Oral 82 15 92 % 03/09/22 1700 167/67 36.8 ?C (98.2 ?F) Oral 83 20 94 % Body mass index is 54.8 kg/m?. GENERAL: Alert, No Distress NECK: Supple LUNGS: dec. A/e. CARDIAC: Normal S1 and S2; no rubs, murmurs, or gallops ABDOMEN: Soft, nontender EXTREMITIES: Extremities normal, no deformities, edema, clubbing or skin discoloration. Good capillary refill. NEURO: Alert, oriented X 3, Cranial nerves II-XII intact PULSES: 2+ radial DATA: Diagnostic tests reviewed for today's visit: Most recent labs and imaging results. Assessment/Plan Principal Problem: COVID 19 infection Acute hypoxemic resp. Failure, HTN, Recent CVA HLP. PLAN: Monitor labs, Wean o2, Appreciate ID eval, Continue current meds, Monitor clinically. Medication and Non-Pharmacologic VTE Prophylaxis/Anticoagulants Anticoagulant AND Antiplatelet Medications (From admission, onward) Start Dose Route Frequency Last Action Ordered Stop 03/09/22 1130 clopidogrel 75 mg tab(s) (PLAVIX) 75 mg ORAL DAILY Given, 03/10 90803/09/22 1117 -- 03/09/22 0330 heparin 5,000 Units injection (Medical Risk Categories) 5,000 Units SUBCUTANEOUS EVERY 12 HOURS Given, 03/10 90803/09/22 0310 -- 03/09/22 0315 activity - mobilize patient (nd,oh) VTE Prophylaxis: VTE prophylaxis appropriate SIGNATURE: Eddy Rebolledo MD PATIENT NAME: Bradley Matos DATE: March 10, 2022 TIME: 3:18 PM [facility] 03-09-2022 History of Past i llness Narrative Problem Noted Date Resolved Date Nausea 03/09/2022 03/13/2022 documented as of this encounter (statuses as of 03/20/2022) [facility]07-02-2022 History of Past illness Narrative* Problem Noted Date Resolved Date Nausea 03/09/2022 03/13/2022 documented as of this encounter (statuses as of 03/21/2022) [facility] History of Past illness Narrative* Problem Noted Date Resolved Date Nausea 03/09/2022 03/13/2022 documented as of this encounter (statuses as of 03/25/2022) [facility] History of Past illness Narrative* Problem Noted Date Resolved Date Nausea 03/09/2022 03/13/2022 documented as of this encounter (statuses as of 04/15/2022) [facility] History of Present illness Narrative* Cathi Mares, JONG - 03/05/2022 1:58 PM EDT Occupational Therapy Attempted OT services; Per RN pt awaiting transportation to [facility] scheduled at 1400. * Lonnie Haile DO - 03/05/2022 6:07 AM EDT Images from the original note were not included. [facility] Progress Note Bradley Lana Matos : 1965(56 y.o.) 03/05/22 Subjective: HPI The patient complains of left side weakness The patient feels their symptoms areunchanged no events or new concerns 56 y.o. female with a PMHx of anxiety, depression, fibromyalgia, ulcerative colitis, morbid obesity, Sjogren's, PTSD, GERD/peptic ulcer, who presented to [facility] ED with left sided weakness and slurred speech starting the morning of 02/28. On evaluation, her initial BP was 210/91. Llab work was unremarkable. CT head revealed an old lacunar infarct in the right caudate. She was admitted to [facility] for further stroke work up. Neuro was consulted. MRI brain revealed right corpus collosum ischemic stroke. She was started on plavix and atorvastatin, as well as amlodipine. Sitting in chair Eating lunch C/o bilateral knee pain that is chronic, but currently worse due to not being on her voltaren Scheduled Meds: amLODIPine 5 mg Oral Daily gabapentin 100 mg Oral BID sodium chloride flush 5-40 mL IntraVENous 2 times per day atorvastatin 40 mg Oral Nightly enoxaparin 40 mg SubCUTAneous Daily capsaicin Topical BID RABEprazole 20 mg Oral QAM AC Continuous Infusions: sodium chloride 50 mL/hr at 03/02/22 0359 sodium chloride PRN Meds:labetalol, hydrALAZINE, gadobutrol, acetaminophen, dicyclomine, diphenoxylate-atropine, sodium chloride flush, sodium chloride, polyethylene glycol, melatonin, hydrOXYzine pamoate, promethazine Review of Systems Neurological: Positive for weakness. Interval Pertinent History: Social History Tobacco Use Smoking status: Never Smoker Smokeless tobacco: Never Used Substance Use Topics Alcohol use: No Objective: Patient Vitals for the past 24 hrs: BP Temp Temp src Pulse Resp SpO2 03/05/22 0444 (!) 158/70 97.8 F (36.6 C) Temporal 83 16 96 % 03/04/22 2335 (!) 159/87 97.8 F (36.6 C) Temporal 83 18 95 % 03/04/22 1917 (!) 165/84 97.4 F (36.3 C) Temporal 85 20 94 % 03/04/22 1409 (!) 176/93 Temporal 83 03/04/22 0729 (!) 188/81 97.8 F (36.6 C) Temporal 73 18 94 % Average, Min, and Max for last 24 hours Vitals: TEMPERATURE: Temp Av.7 F (36.5 C) Min: 97.4 F (36.3 C) Max: 97.8 F (36.6 C) RESPIRATIONS RANGE: Resp Av Min: 16 Max: 20 PULSE RANGE: Pulse Av.4 Min: 73 Max: 85 BLOOD PRESSURE RANGE: Systolic (24hrs), Av , Min:158 , Max:188 ; Diastolic (24hrs), Av, Min:70, Max:93 PULSE OXIMETRY RANGE: SpO2 Av.8 % Min: 94 % Max: 96 % No intake/output data recorded. Physical Exam Constitutional: General: She is not in acute distress. Appearance: She is obese. She is not diaphoretic. Eyes: General: No scleral icterus. Conjunctiva/sclera: Conjunctivae normal. Cardiovascular: Rate and Rhythm: Normal rate and regular rhythm. Heart sounds: Normal heart sounds. No murmur heard. Pulmonary: Effort: Pulmonary effort is normal. No respiratory distress. Breath sounds: Normal breath sounds. No wheezing or rales. Abdominal: General: Bowel sounds are normal. There is no distension. Palpations: Abdomen is soft. Tenderness: There is no abdominal tenderness. There is no guarding. Skin: General: Skin is warm and dry. Neurological: Cranial Nerves: Dysarthria present. No facial asymmetry. Motor: Weakness present. Psychiatric: Behavior: Behavior normal. Lab Results Component Value Date WBC 8.9 03/05/2022 HGB 12.3 03/05/2022 HCT 37.6 03/05/2022 MCV 87.8 03/05/2022 PLT 286 03/05/2022 Lab Results Component Value Date NA 136 03/05/2022 K 3.9 03/05/2022 CL 100 03/05/2022 CO2 29 03/05/2022 BUN 14 03/05/2022 CREATININE 0.81 03/05/2022 GLUCOSE 146 03/05/2022 CALCIUM 9.1 03/05/2022 Lab Results Component Value Date LABA1C 5.8 (A) 03/02/2022 Additional results of the last 24 hours have been reviewed. Assessment and Plan: Principal Problem: Stroke-like symptoms Active Problems: Left-sided weakness Ulcerative colitis, chronic (HCC) Morbid obesity (HCC) PTSD (post-traumatic stress disorder) Peptic ulcer IBS (irritable bowel syndrome) GERD (gastroesophageal reflux disease) Fibromyalgia Anxiety Essential hypertension Resolved Problems: * No resolved hospital problems. * Acute ischemic infarct of posterior corpus callosum - cryptogenic -plavix and statin (aspirin allergy) -neuro note reviewed -Neurology signed off - recommend follow up in cryptogenic clinic, sleep study for JOSY, and bariatric clinic referral on dc HTN -increase amlodipine to 10 mg -prn PO hydralazine -current goal SBP <160 -goal SBP <140 over next 2-4 wks per neuro Mixed hyperlipidemia -New diagnosis -on statin Pre-diabetes Morbid obesity -Hgb a1c 5.8 - new diagnosis Urinary incontinence -Suspect overflow urinary incontinence -> outpatient uro-sheet metal apprentice referral Fibromyalgia Back pain GERD PUD Ulcerative colitis IBS -home PPI, PRN Bentyl and Lomotil PTSD/anxiety/depression -PRN hydroxyzine DVTProphylaxis: lovenox 40 q 24hr - creatinine clearance >30 Disposition: stable for [facility] I spent over 51% of total time providing counseling or incoordination of care: > 35 minutes discussed with TCC/SW and I personally reviewed chart, data, labs radiology reports * Holly Loaiza - 03/04/2022 4:07 PM EDT Occupational Therapy Facility/Department: [facility] TELEMETRY Occupational Therapy Initial Assessment Name: Bradley Matos : 1965 Date of Service: 03/04/2022 Discharge Recommendations: IP Rehab OT Equipment Recommendations Equipment Needed: No Patient Diagnosis(es): The encounter diagnosis was Left-sided weakness. Past Medical History: has a past medical history of Anxiety, Chronic fatigue syndrome, Depression, Diverticulitis, Fibromyalgia, GERD (gastroesophageal reflux disease), Hiatal hernia, IBS (irritable bowel syndrome), Obesity, Peptic ulcer, PTSD (post-traumatic stress disorder), Sjogren's syndrome (HCC), and Umbilical hernia. Past Surgical History: has a past surgical history that includes section; knee surgery (Left, 2015); Abdomen surgery; and Colonoscopy (2017). Assessment Performance deficits / Impairments: Decreased functional mobility ;Decreased ADL status;Decreased safe awareness;Decreased high-level IADLs;Decreased endurance;Decreased strength Assessment: Pt is a 56 yo female with significant PMHx of obesity, anxiety, PTSD, sjogren's, fibromyalgia, GERD presented to [facility] ER 03/01 with L sided weakness and dysarthria. MRI showing R hemispheric corpus collosum ischemic stroke per neurology. Pt demo sit to stand from bed modA and func mob to r estroom Alice with a left lean. Pt demo toileting SBA and toilet transfer Alice. Pt demo func mob from restroom to chair CGA. Recommend IP rehab d/t pt's inability to safely participate in ADLs. Pt demo ability to tolerate 15 hrs of therapy per week. Prognosis: Good Decision Making: Medium Complexity REQUIRES OT FOLLOW-UP: Yes Plan Plan Times per Week: 3-5 Plan Weeks: 4 Current Treatment Recommendations: Functional mobility training,Pain management,Safety education & training,Patient/Caregiver education & training,Equipment evaluation, education, & procurement,Self-Care / ADL,Home management training,Return to work related activity Restrictions Restrictions/Precautions Restrictions/Precautions: General Precautions,Fall Risk,Bed Alarm Required Braces or Orthoses?: No Position Activity Restriction Other position/activity restrictions: no alarms engaged upon arrival Subjective General Chart Reviewed: Yes Patient assessed for rehabilitation services?: Yes Family / Caregiver Present: No Social/Functional History Social/Functional History Lives With: Alone Type of Home: House Home Layout: One level,Laundry in basement Home Access: Stairs to enter with rails Entrance Stairs - Number of Steps: 1 flight to enter from basement Bathroom Shower/Tub: Tub/Shower unit Bathroom Toilet: Standard Bathroom Accessibility: Accessible Home Equipment: Walker, rolling Has the patient had two or more falls in the past year or any fall with injury in the past year?: Yes Receives Help From: Family ADL Assistance: Independent Homemaking Assistance: Independent Homemaking Responsibilities: Yes Ambulation Assistance: Independent Transfer Assistance: Independent Active Director Of Education And Training: Yes Mode of Transportation: Car 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 Type of Occupation: [employer] 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 CGA from restroom to chair.) Toilet Transfers Toilet - Technique: Ambulating Equipment Used: Standard toilet Toilet Transfer: Minimal assistance;Contact guard assistance Toilet Transfers Comments: CGA for sit to stand. Alice for stand to sit with poor eccentric control. AROM: Generally decreased, functional (LUE AROM impaired) Strength: Generally decreased, functional ADL Grooming: Supervision Grooming Skilled Clinical Factors: Pt washed hands at sink. Toileting: Stand by assistance Activity Tolerance Activity Tolerance: Patient limited by fatigue;Patient limited by endurance Bed mobility Rolling to Left: Stand by assistance Supine to Sit: Minimal assistance Scooting: Stand by assistance Bed Mobility Comments: HOB elevated, bed rails used. increase time to complete task. Transfers Sit to stand: Moderate assistance;Contact guard assistance (modA from bed. CGA from toilet.) Stand to sit: Minimal assistance (poor eccentric control) Cognition Overall Cognitive Status: WNL Education Given To: Patient Education Provided: Role of Therapy;Plan of Care Education Method: Verbal Barriers to Learning: None Education Outcome: Verbalized understanding G-Code OutComes Score AM-PAC Daily Activity Inpatient How much help for putting on and taking off regular lower body clothing?: A Lot How much help for Bathing?: A Lot How much help for Toileting?: None How much help for putting on and taking off regular upper body clothing?: None How much help for taking care of personal grooming?: None How much help for eating meals?: None [facility] Inpatient Daily Activity Raw Score: 20 [facility] Inpatient ADL T-Scale Score : 42.03 ADL Inpatient CMS 0-100% Score: 38.32 ADL Inpatient CMS G-Code Modifier : AM-PAC Score AM-PAC Inpatient Daily Activity Raw Score: 20 (03/04/22 1606) AM-PAC Inpatient ADL T-Scale Score : 42.03 (03/04/22 1606) ADL Inpatient CMS 0-100% Score: 38.32 (03/04/22 1606) ADL Inpatient CMS G-Code Modifier : (03/04/22 1606) Goals Short Term Goals Time Frame for Short term goals: 4 wks Short Term Goal 1: Pt will demo toilet transfer SBA. Short Term Goal 2: Pt will demo grooming task at sink sup. Short Term Goal 3: Pt will demo LB dressing SBA. Patient Goals Patient goals : Pt would like to get stronger. Therapy Time Individual Concurrent Group Co-treatment Time In 1430 Time Out 1513 Minutes 43 Timed Code Treatment Minutes: 28 Minutes Holly Loaiza Patient's Occupational Therapy Plan of Care supervision is transferred to [facility] Occupational Therapist. Goals and/or treatment plan was established in collaboration with patient/family/other representatives. *OT evaluation/treatment completed wearing N95 and gloves* * Donna High DO - 03/04/2022 3:10 PM EDT Images from the original note were not included. [facility] Progress Note Bradley Matos : 1965(56 y.o.) Date: 03/04/22 Subjective: HPI: This is a 56 y.o. female with past medical history of anxiety, depression, fibromyalgia, ulcerativecolitis, morbid obesity, Sjogren's, PTSD, GERD/peptic ulcer, who presented to the emergency department with LUE and LLE weakness, with slurred speech. Admitted for stroke workup. Vitals Reviewed. Patient seen and examined at bedside. Underwent multiple testing today and was outof room most of it. She reports feeling discouraged given new stroke diagnosis but happy it is not something worse. Motivated to work with PT to get better. No new complaints. L sided weakness remains unchanged. Speech is waxing/waning. Scheduled Meds: amLODIPine 5 mg Oral Daily gabapentin 100 mg Oral BID sodium chloride flush 5-40 mL IntraVENous 2 times per day atorvastatin 40 mg Oral Nightly enoxaparin 40 mg SubCUTAneous Daily capsaicin Topical BID RABEprazole 20 mg Oral QAM AC Continuous Infusions: sodium chloride 50 mL/hr at 03/02/22 0359 sodium chloride PRN Meds:labetalol, hydrALAZINE, gadobutrol, acetaminophen, dicyclomine, diphenoxylate-atropine, sodium chloride flush, sodium chloride, perflutren lipid microspheres, sodium chloride flush, polyethylene glycol, melatonin, hydrOXYzine pamoate, promethazine Review of Systems All other ROS negative unless otherwise noted above in HPI. Objective: Patient Vitals for the past 24 hrs: BP Temp Temp src Pulse Resp SpO2 03/04/22 1409 (!) 176/93 Temporal 83 03/04/22 0729 (!) 188/81 97.8 F (36.6 C) Temporal 73 18 94 % 03/04/22 0309 (!) 159/102 97.4 F (36.3 C) Temporal 86 20 96 % 03/03/22 2336 (!) 153/77 97.6 F (36.4 C) Temporal 76 20 95 % 03/03/22 1932 (!) 162/88 97.2 F (36.2 C) Temporal 87 20 95 % Average, Min, and Max for last 24 hours Vitals: TEMPERATURE: Temp Av.5 F (36.4 C) Min: 97.2 F (36.2 C) Max: 97.8 F (36.6 C) RESPIRATIONS RANGE: Resp Av.5 Min: 18 Max: 20 PULSE RANGE: Pulse Av Min: 73 Max: 87 BLOOD PRESSURE RANGE: Systolic (24hrs), Av , Min:153 , Max:188 ; Diastolic (24hrs), Av, Min:77, Max:102 PULSE OXIMETRY RANGE: SpO2 Av % Min: 94 % Max: 96 % No intake/output data recorded. Physical Exam Vitals and nursing note reviewed. Constitutional: General: She is not in acute distress. Appearance: Normal appearance. She is obese. She is not ill-appearing. Comments: Looks uncomfortable HENT: Head: Normocephalic and atraumatic. Nose: Nose normal. Mouth/Throat: Mouth: Mucous membranes are moist. Eyes: Extraocular Movements: Extraocular movements intact. Pulmonary: Effort: Pulmonary effort is normal. No respiratory distress. Abdominal: General: Abdomen is flat. There is no distension. Musculoskeletal: General: Normal range of motion. Cervical back: Normal range of motion. Neurological: Mental Status: She is alert. Sensory: No sensory deficit. Motor: Weakness (LUE and LLE) present. Comments: Sometimes appears to have slight stutter Psychiatric: Judgment: Judgment normal. Labs: Lab Results Component Value Date NA 136 03/04/2022 K 3.9 03/04/2022 CL 100 03/04/2022 CO2 26 03/04/2022 BUN 13 03/04/2022 CREATININE 0.77 03/04/2022 GLUCOSE 127 (H) 03/04/2022 CALCIUM 9.0 03/04/2022 PROT 8.3 (H) 03/01/2022 LABALBU 4.3 03/01/2022 BILITOT 0.9 03/01/2022 ALKPHOS 76 03/01/2022 AST 34 03/01/2022 ALT 19 03/01/2022 LABGLOM >60 04/27/2015 LABGLOM >60 04/27/2015 GFRAA >60 04/27/2015 GFRAA >60 04/27/2015 AGRATIO 0.7 (L) 04/25/2015 GLOB 4.7 (H) 04/25/2015 Lab Results Component Value Date WBC 12.5 (H) 03/04/2022 HGB 12.4 03/04/2022 HCT 38.0 03/04/2022 MCV 88.2 03/04/2022 PLT 262 03/04/2022 Imaging: CT HEAD WO CONTRAST Result Date: 03/01/2022 Patient Name: BRADLEY MATOS Computed Tomography ACCESSION EXAMDATE/TIME PROCEDURE ORDERING PROVIDER [id number] 03/01/2022 20:[address] Head or Brain w/o Chema ARAGON CPT code 20153 Reason For Exam (CT Head or Brain w/o Contrast) stroke symptoms Report CT HEAD: CLINICAL INDICATION: Left-sided weakness TECHNIQUE: Transaxial CT sequence performed through the head with 3 mm reconstruction. Sagittal and Coronal reconstruction images included. Dose reduction employed with automated exposure control. COMPARISON: 12/17/2018 FINDINGS: There is some artifact in the vertical orientation in the right parasagittal region as noted on coronalimage 34. Ventricles and Extra-axial spaces: Normal in size and morphology for the patient's age. No abnormal extracerebral collection identified. Cerebral and cerebellar parenchyma: No attenuation focus in the right caudate is likely an old lacunar infarct which occurred since the prior examination. No other focal lesion is identified throughout the cerebrum or cerebellum. Hemorrhage: None Brainstem: Normal Visualized Paranasal sinuses: Normal. Mastoid air cells: Normal Visualized Orbits: Normal Calvarium and skull base: Normal IMPRESSION: Old lacunar infarct in the right caudate. No other new intracranial abnormality. Computed Tomography Report Report Dictated on --- Final --- Dictating Physician: MD GAMBOA JEFFREY Signed Date and Time: 03/01/2022 9:39 pmSigned by: MD COOPER, ANDREAS Transcribed Date and Time: 03/01/2022 9:40 I personally reviewed any new labs/imaging/testing. I agree with the radiologist/specialist interpretation unless otherwise noted in my A/P. Assessment and Plan: Principal Problem: Stroke-like symptoms Active Problems: Left-sided weakness Ulcerative colitis, chronic (HCC) Morbid obesity (HCC) PTSD (post-traumatic stress disorder) Peptic ulcer IBS (irritable bowel syndrome) GERD (gastroesophageal reflux disease) Fibromyalgia Anxiety Essential hypertension Resolved Problems: * No resolved hospital problems. * Acute ischemic infarct of posterior corpus callosum - cryptogenic B12 deficiency -Left sided weakness (LUE and LLE) and dysarthria -MRI brain consistent with acute infarct; initially concern for possible mass or demyelination, butrepeat MRI w contrast negative, just ischemia -Hgb a1c 5.8 (pre-diabetes); TSH WNL -- B12 is low normal, received IM x1 supplementation 03/02 -CT head with old lacunar infarct in R caudate (not prior hx of this) -TTE read without atrial enlargement or ASD; normal EF -PT/OT recommending IPR, patient agreeable; ok to start placement -Plavix and statin ordered; allergy to ASA (GI upset and bleeding) therefore not ordered -Neurology signed off - recommend follow up in cryptogenic clinic, sleep study for JOSY, and bariatric clinic referral on dc Mixed hyperlipidemia -New diagnosis -Lipid panel showed TChol 239, LDL 174, TG 176, HDL 30 -Started on statin as above Pre-diabetes Morbid obesity -Hgb a1c 5.8, new diagnosis of pre-diabetes -BMI 52.46; encourage lifestyle and dietary modifications Urinary and stool incontinence -Suspect overflow urinary incontinence from history;pending bladder scan; may benefit from urology referral on discharge -Continue lomotil from home and monitor bowel movements Fibromyalgia Back pain -Pt with flare of back pain and knee pain due to lying flat on MRI machine -Increased Tylenol to 1g q8h PRN and on gabapetin; tolerating it better -Pt does have multiple recorded allergies to opiates (tramadol, Dilaudid, morphine) as well as NSAIDs (PUD, GERD) GERD PUD Ulcerative colitis IBS -Cont home PPI, PRN Bentyl and Lomotil PTSD/anxiety/depression -Cont PRN hydroxyzine DVTProphylaxis: lovenox 40 q 24hr - creatinine clearance >30 Code status: Full code Diet: Cardiac Disposition: continue to monitor inpatient, await decorator consultant recommendations, await test results and await clinical improvement I spent over 51% of total time providing counseling or incoordination of care: > 35 minutes discussed with nurse, patient and family updated, I personally examined the patient and I personally reviewed chart, data, labs radiology reports 6AM-6PM please page me via [employer]. 6PM-6AM please page [facility] Internal Medicine. * Lulu Cobb, RETAIL DEPARTMENT MANAGER - 03/04/2022 11:59 AM EDT Physical Therapy Facility/Department: [facility] 3 TELEMETRY Daily Treatment Note Name: Bradley Matos : 1965 Date of Service: 03/04/2022 Discharge Recommendations: IP Rehab Assessment Body Structures, Functions, Activity Limitations Requiring Skilled Therapeutic Intervention: Decreased functional mobility ;Decreased strength;Decreased endurance;Decreased balance;Increased pain;Decreased ROM Assessment: Pt present with the above deficits requiring mod assist for all functional mobility. Increase time to complete functional task secondary to weakness. L side weakness, fatigues but motivated. Rec rehab upon discharge, pt could tolerate 15hrs of therapy/week. Activity Tolerance Activity Tolerance: Patient limited by fatigue;Patient limited by endurance Plan Plan Plan: 5-7 times per week Plan weeks: 2 weeks Current Treatment Recommendations: Strengthening,Balance training,Functional mobility training,Transfer training,Stair training,Gait training,Endurance training,Neuromuscular re-education,Home exercise program,Safety education & training,Therapeutic activities Safety Devices Type of Devices: Gait belt,Patient at risk for falls,Left in bed,Call light within reach,Nurse notified Restrictions Restrictions/Precautions Required Braces or Orthoses?: No Position Activity Restriction Other position/activity restrictions: no alarms engaged upon arrival Subjective General Chart Reviewed: Yes Patient assessed for rehabilitation services?: Yes Family / Caregiver Present: No Diagnosis: Lt sided weakness Follows Commands: Within Functional Limits Other (Comment): admitted with Lt sided weakness and slurred speech Subjective Subjective: Pt in bed, HOB elevated and agreeable to PT. Transport just brought pt back to room from US. Pt requesting to use BSC. States she tried to use BSC this morning but unable due to increase left side weakness. C/o sofia chronic knee pain. Objective Bed mobility Supine to Sit: Moderate assistance (assist with trunk elevation) Sit to Supine: Minimal assistance (assist with LLE) Scooting: Minimal assistance (seated towards EOB) Bed Mobility Comments: HOB elevated, bed rails used. increase time to complete task. Transfers Sit to Stand: Moderate Assistance Stand to sit: Moderate Assistance Comment: multiple attemtps that were unsuccessful and x 4 successful transfers from EOB x 2, BSC, chair. Pt mod assist from EOB and min assist from BSC/chair. cues for hand placement and sequencing. Use of FWW. Ambulation Surface: level tile Device: Standard Walker Assistance: Moderate assistance Gait Deviations: Slow Tenisha;Decreased step length;Decreased step height;Increased YANETH Distance: 3ft bed>BSC Comments: increase time, cues for weight shifting and posture More Ambulation?: Yes Ambulation 2 Surface - 2: level tile Device 2: Standard Walker Assistance 2: Minimal assistance Gait Deviations: Slow Tenisha;Decreased step length;Decreased step height Distance: 5ft BSC>bed Comments: improved technique and tolerance with sofia knee pain Ambulation 3 Surface - 3: level tile Device 3: Standard Walker Assistance 3: Minimal assistance Gait Deviations: Slow Tenisha;Decreased step length;Decreased step height Distance: 3ft x 2 bed><chair Comments: pt needed to return back to bed once in chair for more testing. Increase time and fatigue Balance Comments: sitting at EOB, RUE support, occasional left lateral lean, SBA for balance, corrects balance with cues. Static standing with FWW, pt with flexed posture, wide YANETH, corrects with cues, increase time needed, min assist for balance. A/AROM Exercises: sofia heel slides, quad sets x 10 reps each AM-PAC Score AM-PAC Inpatient Mobility Raw Score : 9 (03/04/221334) AM-PAC Inpatient T-Scale Score : 30.55 (03/04/221334) Mobility Inpatient CMS 0-100% Score: 81.38 (03/04/221334) Mobility Inpatient CMS G-Code Modifier : CM (06/27/22 1335) Goals Short Term Goals Time Frame for Short term goals: 2 weeks Short term goal 1: Bed mobility Indep; not met Short term goal 2: Transfers Indep; not met Short term goal 3: Gait 50 feet with ww and mod Indep; not met Short term goal 4: 1 flight with rail and supervision; not addressed Patient Goals Patient goals : None given Education Therapy Time Individual Concurrent Group Co-treatment Time In 1128 Time Out 1159 Minutes 31 Timed Code Treatment Minutes: 31 Minutes (fax 2) Lulu Cobb PTA * Hannah Mcdermott, PROFESSOR SCULPTURE - CARPET SEWER - 03/04/2022 11:20 AM EDT PROGRESS NOTE. STROKE SERVICE Patient Name:Bradley Matos Patient : 1965 Acct: [id number] Date of Admission: 03/01/2022 Room/Bed: [address] [place] [address] PCP: Didier Hicks MD Patient location Telemetry Remains in the hospital for completion of stroke riskassessment, Subjective: 56F PMH obesity, anxiety, PTSD, sjogren's, fibromyalgia, GERD presented to [facility] ER 03/01 with L sided weakness, dysarthria. CTH without acute process. Admitted for further work-up. MRI withR hemispheric corpus collosum lesion, likely ischemic stroke. New Complain: Complaints of gait instability/incoordination this morning where she was leaning to the L. Sedation:No Diet/TF:regular Estrada: No VTE prophylaxis: YES Lovenox Antithrombotic therapy in first 24 hrs: Contraindicated because out of window Statin therapy for stroke stroke patients: High intensity Anticoagulation on AF patients: N/A no history of AF Activity: OOB Disposition: TBD Current Hospital Medications: Current Facility-Administered Medications: LORazepam (ATIVAN) injection 1 mg, 1 mg, IntraVENous, Once PRN, Donna Anila, DO gabapentin (NEURONTIN) capsule 100 mg, 100 mg, Oral, Once PRN, Donna Anila, DO acetaminophen (TYLENOL) tablet 1,000 mg, 1,000 mg, Oral, Q8H PRN, Donna High, DO, 1,000 mg at 03/04/22 0916 gabapentin (NEURONTIN) capsule 100 mg, 100 mg, Oral, BID, Donna Anila, , 100 mg at 03/04/2215 dicyclomine (BENTYL) tablet 20 mg, 20 mg, Oral, 4x Daily PRN, Rikki Ceja MD, 20 mg at 03/02/222154 diphenoxylate-atropine (LOMOTIL) 2.5-0.025 MG per tablet 1 tablet, 1 tablet, Oral, 4x Daily PRN, Rikki Ceja MD, 1 tablet at 03/02/222154 0.9 % sodium chloride infusion, , IntraVENous, Continuous, Rikki Ceja MD, Last Rate: 50 mL/hr at 03/02/22 0359, New Bag at 03/02/22 035 sodium chloride flush 0.9 % injection 5-40 mL, 5-40 mL, IntraVENous, 2 times per day, Rikki Ceja MD, 10 mL at 03/04/22916 sodium chloride flush 0.9 % injection 5-40 mL, 5-40 mL, IntraVENous, PRN, Rikki Ceja MD 0.9 % sodium chloride infusion, , IntraVENous, PRN, Rikki Ceja MD atorvastatin (LIPITOR) tablet 40 mg, 40 mg, Oral, Nightly, Rikki Ceja MD, 40 mg at 03/03/222018 labetalol (NORMODYNE;TRANDATE) injection 10 mg, 10 mg, IntraVENous, Q10 Min PRN, Rikki Ceja MD perflutren lipid microspheres (DEFINITY) injection 1.65 mg, 1.5 mL, IntraVENous, ONCE PRN, Rikki Ceja MD sodium chloride flush 0.9 % injection 5-40 mL, 5-40 mL, IntraVENous, PRN, Rikki Ceja MD polyethylene glycol (GLYCOLAX) packet 17 g, 17 g, Oral, Daily PRN, Rikki Ceja MD melatonin tablet 5 mg, 5 mg, Oral, Nightly PRN, Rikki Ceja MD, 5 mg at 03/03/222017 hydrOXYzine pamoate (VISTARIL) capsule 25 mg, 25 mg, Oral, TID PRN, Rikki Ceja MD promethazine (PHENERGAN) tablet 25 mg, 25 mg, Oral, Q6H PRN, Rikki Ceja MD, 25 mg at 03/02/22 0357 enoxaparin (LOVENOX) injection 40 mg, 40 mg, SubCUTAneous, Daily, Donna High DO capsaicin (ZOSTRIX) 0.025 % cream, , Topical, BID, Donna High DO, Given at 03/03/22 0738 RABEprazole (ACIPHEX) tablet 20 mg, 20 mg, Oral, QAM AC, Rikki Ceja MD, 20 mg at 03/04/22 0917 Continuous Infusions: sodium chloride 50 mL/hr at 03/02/22 0359 sodium chloride Allergies: Paxil [paroxetine hcl], Permethrin, Propofol, Asa [aspirin], Hydromorphone, Ivermectin, Wellbutrin [bupropion], Ciprofloxacin, Darvon [propoxyphene], Iodine, Morphine, Prednisone, Ranitidine hcl, Singulair [montelukast sodium], Skelaxin [metaxalone], Sulfa antibiotics, Tapentadol, Tetracyclines & related, and Tramadol Review of Systems Gait instability, L sided weakness, BLE pain L>R Objective: Telemetry: Arrhythmia:No Physical Examination: Patient Vitals for the past 8 hrs: BP Temp Temp src Pulse Resp SpO2 03/04/22 0729 (!) 188/81 97.8 F (36.6 C) Temporal 73 18 94 % General Physical Examination: General:obese HEENT:Normocephalic, atraumatic CV: S1+S2, RRR, no MRG. Pulm:CTA b/l, unlabored Abdomen: Soft NT/ND. BS + Skin: Intact without ulcers, breakdowns or discoloration Extremities: normal with no edema or cyanosis Orthopedic limitation; Yes, due to obesity Pulses: Intact peripherally Carotid auscultation :No bruits Neurological Examination: Higher Functions: Mental Status Exam: Level of Alertness: Awake Orientation: Normal toself, time, place Memory: Normal Fund of Knowledge: Normal Language: Normal Dysarthria not present Cranial Nerves: -II Visual acuity: normal -II Visualfields: normal -III Pupils (~ 3 mm OD, 3 mm OU) equal, round, reactive to light -III-IV- Extraocular Movements: intact -Nystagmus not present -Saccades and pursuits normal -V Facial sensation: intact Corneal's Intact bilateral -VII Facial strength:intact -VIII Hearing: intact -IX-X - Gag reflex present -X Palate: intact -XI Shoulder shrug: intact -XII Tongue movement: normal MotorExamination: Tone after evaluation of 4 limbs, the following findings applied: Normal all limbs -Bulk: normal -Muscle Stretch afterevaluation of all limbs, and axial musculature the following findings applied: Drift: Mild pronation of LUE. Weakness against resistance on L +4/5 -Reflexes: after evaluation of 4 limbs, the following findings applied ; normal all limbs -Plantar responce: Flexor bilaterally Sensory Intact to light touch, pain / temperature, proprioception, Coordination: Arms Normal finger to nose Legs Limited by body habitus Tremors Subjective BLE tremors, not noted on exam Gait Did not ambulate for safety NIHSS: 0 ANCILLARY Last 24hrs Recent Results (from the past 24 hour(s)) CBC Collection Time: 03/04/22 5:35 AM Result Value Ref Range WBC 12.5 (H) 3.6 - 10.7 10*3/uL RBC 4.30 3.80 - 5.20 10*6/uL Hemoglobin 12.4 11.7 - 16.0 g/dL Hematocrit 38.0 35.0 - 47.0 % MCV 88.2 79.0 - 98.0 fL MCH 28.8 26.0 - 34.0 pg MCHC 32.7 32.0 - 36.0 % RDW 17.3 (H) 11.5 - 14.5 % Platelets 262 140 - 440 10*3/uL MPV 8.3 7.4 - 12.4 fL Basic Metabolic Panel w/ Reflex to MG Collection Time: 03/04/22 5:35 AM Result Value Ref Range Sodium 136 135 - 145 mmol/L Potassium 3.9 3.5 - 5.1 mmol/L Chloride 100 98 - 107 mmol/L CO2 26 22 - 30 mmol/L Anion Gap 9 3 - 13 mmol/L Glucose 127 (H) 70 - 100 mg/dL BUN 13 9 - 20 mg/dL CREATININE 0.77 0.52 - 1.25 mg/dL eGFR >90.0 >60 mL/min EGFR IF NonAfrican Bhutanese 87.0 >60 mL/min Calcium 9.0 8.4 - 10.4 mg/dL Coagulation: Recent Labs 03/01/22 1954 INR 1.0 Stroke Specific: Lipids: Recent Labs 03/02/22 0338 CHOL 239* LDLCHOLESTEROL 174* TRIG 176* HDL 30* HgA1c: Recent Labs 03/02/22 0338 [address] 5.8* CT Head 03/01/22: Old lacunar infarct in the right caudate. No other new intracranial abnormality. MRI Brain 03/03/22: IMPRESSION: 1. Ovoid masslike region of a pleural effusion in the right side of the body of the posterior corpus callosum. While this could be a acute infarct, neoplasm remains in consideration and postcontrast imaging is recommended when patient can tolerate MRA Head 03/03/22: Somewhat limited examination. No intracranial arterial abnormality identified. EKG 03/01/22: Intervals [place] Rate: 90 P: 0 NV: 61 QRS: -24 QRSD: 96 T: 21 QT: 369 QTc: 453 Interpretive Statements Sinus rhythm Short NV interval Borderline left axis deviation Abnormal R-wave progression, late transition No previous ECG available for comparison ASSESSMENT / PLAN/RECOMMENDATIONS: R corpus collosum lesion (likely ischemic stroke) - Etiology of lesion is likely ischemic stroke (embolic R VEHICLE INSPECTOR or MCA branch of unclear etiology), however, given the aspect of the lesion the possibility of an underlying lesion or demyelination has been raised. Pt previously did not tolerate entire MRI series --- will order MRI Brain with/without contrast as well as MRI C spine with/without contrast - Hold antiplatelet (Plavix, due to allergy to ASA) due to potential need for LP if contrasted MRI comes back abnormal - Check carotid US (did not tolerate all Vascular imaging) - Follow up TTE report - Continue Atorvastatin 40 - OK for DVT prophylaxis, check LE US - If TTE does not demonstrate embolic source and contrasted studies are normal pt will need to follow up with cryptogenic stroke clinic for OP event monitor/ILR - Follow up with OP neurology L sided weakness - Due to above - PT/OT recommending IP rehab Gait instability - Due to worsening of known infarct vs cervical problem - Added MRI C-spine Leukocytosis - Bump up overnight, no fevers. Monitor HTN - No prior documentation of this but likely needs to be treated. Hold off on starting antihypertensives right now due to recent fluctuation/possible worsening of current stroke symptoms. Keep SBP ~ 180 HLD - LDL 174, goal <100 - Atorvastatin 40 Depression/PTSD - Home meds/PCP follow up Obesity - Pt will be referred to Bariatrics Clinic. Reasoning for suggesting referral was discussed with pt. Pt consented to referral Concern for JOSY - Pt will need to be referred Sleep Medicine for outpatient polysomnography to determine presence of JOSY. Reasoning for suggested referral explained to patient. Pt consented to referral PHQ2 0 Patient seen and discussed with Dr. Pina NDUM 03/04 0853: MRI Brain and cervical spine reviewed with Dr. Pina. There is no evidence of enhancement or underlying lesion on MRI. Lesion to corpus collosum consistent with ischemic stroke. C-spine with some degenerative changes but otherwise no significant abnormality. CUS with stenosis <50% bilaterally.TTE WNL. Etiology of stroke is cryptogenic for which pt will need to follow up with cryptogenic stro clinic for OP event monitor/ILR. Will start Plavix daily. No need for LP. Plan as above. Primaryteam to address BP management. OK to titrate BP down to SBP ~ 160 with goal of <140/90 to be achieved over the next 2-4 weeks. TTE: 1. Left ventricle: The cavity size is normal. Wall thickness is mildly increased. Systolic function is normal by the biplane method of disks. The estimated ejection fraction is 65%. There are no regional wall motion abnormalities. 2. Atrial septum: There is no evidence of right to left shunting with injection of agitated saline contrast. 3. No significant valve disease. 4. No obvious source of embolism is identified. CUS: 1. Mild carotid disease present with less than 50% stenosis involving the right internal carotid artery. 2. Mild carotid disease present with less than 50% stenosis involving the left internal carotid artery. 3. Normal antegrade flow involving the right vertebral artery. 4. Normal antegrade flow involving the left vertebral artery. Discussed above plan with pt. Will sign off. Please call with questions. * Donna High DO - 03/03/2022 9:28 AM EDT Images from the original note were not included. [facility] Progress Note Bradley Matos : 1965(56 y.o.) Date: 03/03/22 Subjective: HPI: This is a 56 y.o. female with past medical history of anxiety, depression, fibromyalgia, ulcerativecolitis, morbid obesity, Sjogren's, PTSD, GERD/peptic ulcer, who presented to the emergency department with LUE and LLE weakness, with slurred speech. Admitted for stroke workup. Vitals Reviewed. Patient seen and examined at bedside this morning. She tried undergoing MRI brain & MRA head/neck this morning but unsuccessful to complete entire test due to severe back pain radiating down her legs bilaterally with lying flat on MRI table. She reports unchanged L sided weakness and intermittent speech difficulties. Scheduled Meds: gabapentin 100 mg Oral BID sodium chloride flush 5-40 mL IntraVENous 2 times per day atorvastatin 40 mg Oral Nightly enoxaparin 40 mg SubCUTAneous Daily capsaicin Topical BID RABEprazole 20 mg Oral QAM AC Continuous Infusions: sodium chloride 50 mL/hr at 03/02/22 0359 sodium chloride PRN Meds:oxyCODONE, acetaminophen, dicyclomine, diphenoxylate-atropine, sodium chloride flush, sodium chloride, labetalol, perflutren lipid microspheres, sodium chloride flush, polyethylene glycol, melatonin, hydrOXYzine pamoate, promethazine Review of Systems All other ROS negative unless otherwise noted above in HPI. Objective: Patient Vitals for the past 24 hrs: BP Temp Temp src Pulse Resp SpO2 03/03/22 0728 97.1 F (36.2 C) Temporal 82 17 95 % 03/03/22 0301 (!) 184/97 97 F (36.1 C) Temporal 82 16 94 % 03/02/22 2351 (!) 183/109 97.4 F (36.3 C) Temporal 83 16 95 % 03/02/22 1943 (!) 169/90 98.8 F (37.1 C) Temporal 85 18 95 % 03/02/22 1504 (!) 164/84 98.2 F (36.8 C) Temporal 83 16 95 % 03/02/22 1143 (!) 143/86 (!) 96.3 F (35.7 C) Temporal 83 13 95 % Average, Min, and Max for last 24 hours Vitals: TEMPERATURE: Temp Av.5 F (36.4 C) Min: 96.3 F (35.7 C) Max: 98.8 F (37.1 C) RESPIRATIONS RANGE: Resp Av Min: 13 Max: 18 PULSE RANGE: Pulse Av Min: 82 Max: 85 BLOOD PRESSURE RANGE: Systolic (24hrs), Av , Min:143 , Max:184 ; Diastolic (24hrs), Av, Min:84, Max:109 PULSE OXIMETRY RANGE: SpO2 Av.8 % Min: 94 % Max: 95 % I/O last 3 completed shifts: In: 200 [P.O.:200] Out: - Physical Exam Vitals and nursing note reviewed. Constitutional: General: She is not in acute distress. Appearance: Normal appearance. She is obese. She is not ill-appearing. Comments: Looks uncomfortable HENT: Head: Normocephalic and atraumatic. Nose: Nose normal. Mouth/Throat: Mouth: Mucous membranes are moist. Eyes: Extraocular Movements: Extraocular movements intact. Pulmonary: Effort: Pulmonary effort is normal. No respiratory distress. Abdominal: General: Abdomen is flat. There is no distension. Musculoskeletal: General: Normal range of motion. Cervical back: Normal range of motion. Neurological: Mental Status: She is alert. Sensory: No sensory deficit. Motor: Weakness (LUE and LLE) present. Comments: Sometimes appears to have slight stutter Psychiatric: Judgment: Judgment normal. Labs: Lab Results Component Value Date NA 135 03/03/2022 K 3.7 03/03/2022 CL 101 03/03/2022 CO2 27 03/03/2022 BUN 13 03/03/2022 CREATININE 0.71 03/03/2022 GLUCOSE 112 (H) 03/03/2022 CALCIUM 8.8 03/03/2022 PROT 8.3 (H) 03/01/2022 LABALBU 4.3 03/01/2022 BILITOT 0.9 03/01/2022 ALKPHOS 76 03/01/2022 AST 34 03/01/2022 ALT 19 03/01/2022 LABGLOM >60 04/27/2015 LABGLOM >60 04/27/2015 GFRAA >60 04/27/2015 GFRAA >60 04/27/2015 AGRATIO 0.7 (L) 04/25/2015 GLOB 4.7 (H) 04/25/2015 Lab Results Component Value Date WBC 7.5 03/03/2022 HGB 12.0 03/03/2022 HCT 36.2 03/03/2022 MCV 87.6 03/03/2022 PLT 262 03/03/2022 Imaging: CT HEAD WO CONTRAST Result Date: 03/01/2022 Patient Name: BRADLEY MATOS Computed Tomography ACCESSION EXAMDATE/TIME PROCEDURE ORDERING PROVIDER [id number] 03/01/2022 20:[address] Head or Brain w/o [id number] STRICKLAND CPT code 76162 Reason For Exam (CT Head or Brain w/o Contrast) stroke symptoms Report CT HEAD: CLINICAL INDICATION: Left-sided weakness TECHNIQUE: Transaxial CT sequence performed through the head with 3 mm reconstruction. Sagittal and Coronal reconstruction images included. Dose reduction employed with automated exposure control. COMPARISON: 12/17/2018 FINDINGS: There is some artifact in the vertical orientation in the right parasagittal region as noted on coronalimage 34. Ventricles and Extra-axial spaces: Normal in size and morphology for the patient's age. No abnormal extracerebral collection identified. Cerebral and cerebellar parenchyma: No attenuation focus in the right caudate is likely an old lacunar infarct which occurred since the prior examination. No other focal lesion is identified throughout the cerebrum or cerebellum. Hemorrhage: None Brainstem: Normal Visualized Paranasal sinuses: Normal. Mastoid air cells: Normal Visualized Orbits: Normal Calvarium and skull base: Normal IMPRESSION: Old lacunar infarct in the right caudate. No other new intracranial abnormality. Computed Tomography Report Report Dictated on --- Final --- Dictating Physician: MD GAMBOA JEFFREY Signed Date and Time: 03/01/2022 9:39 pmSigned by: MD GAMBOA JEFFREY Transcribed Date and Time: 03/01/2022 9:40 I personally reviewed any new labs/imaging/testing. I agree with the radiologist/specialist interpretation unless otherwise noted in my A/P. Assessment and Plan: Principal Problem: Stroke-like symptoms Active Problems: Left-sided weakness Ulcerative colitis, chronic (HCC) Morbid obesity (HCC) PTSD (post-traumatic stress disorder) Peptic ulcer IBS (irritable bowel syndrome) GERD (gastroesophageal reflux disease) Fibromyalgia Anxiety Essential hypertension Resolved Problems: * No resolved hospital problems. * Stroke-like symptoms - LUE weakness, facial droop, slurred speech Remote lacunar infarct on imaging -Troponin negative, EKG without acute ischemic changes. Keep on telemetry - no abn rhythms captured -Glucose 127, 145; Hgb a1c 5.8 (pre-diabetes) -TSH WNL -- B12 is low normal, received IM x1 supplementation 03/02 -CT head with old lacunar infarct in R caudate (not prior hx of this) -TTE read pending -MRI brain done this AM (partially done due to pain in legs and back) - concerning for ovoid mass-like region in the right ride of posterior corpus callosum - could be acute infarct vs. neoplasm -PRN labetalol for SBP >210, NIHSS checks, PT/OT eval -Continue IVF per stroke protocol, and atorvastatin 40mg qd -Reported allergy to ASA (GI upset and bleeding) - does have peptic ulcer history and ulcerative colitis - holding off for now -Appreciate neurology consult for recs Mixed hyperlipidemia -New diagnosis -Lipid panel showed TChol 239, LDL 174, TG 176, HDL 30 -Started on statin as above Pre-diabetes Morbid obesity -Hgb a1c 5.8, new diagnosis of pre-diabetes -BMI 52.46; encourage lifestyle and dietary modifications Urinary and stool incontinence -Suspect overflow urinary incontinence from history;pending bladder scan; may benefit from urology referral on discharge -Continue lomotil from home and monitor bowel movements Fibromyalgia Back pain -Pt with flare of back pain and knee pain due to lying flat on MRI machine -Increase Tylenol to 1g q8h PRN -Pt does have multiple recorded allergies to opiates (tramadol, Dilaudid, morphine) as well as NSAIDs (PUD, GERD) -- agreeable to trying gabapentin; will order 100mg BID for now GERD PUD Ulcerative colitis IBS -Cont home PPI, PRN Bentyl and Lomotil PTSD/anxiety/depression -Cont PRN hydroxyzine DVTProphylaxis: lovenox 40 q 24hr - creatinine clearance >30 Code status: Full code Diet: Cardiac Disposition: continue to monitor inpatient, await decorator consultant recommendations, await test results and await clinical improvement I spent over 51% of total time providing counseling or incoordination of care: > 35 minutes discussed with nurse, patient and family updated, I personally examined the patient and I personally reviewed chart, data, labs radiology reports 6AM-6PM please page me via [employer]. 6PM-6AM please page [facility] Internal Medicine. * Adali Spangler - 03/03/2022 8:10 AM EDT .Nutrition rescreen completed. Chart reviewed. Patient to be monitored and followed by the diet biometric fingerprinting technician.RODGER Augustin * Nida Holliday DO - 03/03/2022 7:03 AM EDT PROGRESS NOTE. STROKE SERVICE Patient Name:Bradley Matos Patient : 1965 Acct: [id number] Date of Admission: 03/01/2022 Room/Bed: [facility] PCP: Didier Hicks MD Patient location Telemetry Remains in the hospital for completion of stroke riskassessment, Subjective: 56 year old F complain of LUE, LLE, aphasia in setting of recent fall on to buttocks, morbid obesity, uncontrolled HTN, uncontrolled dyslipidemia. New Complain: No new complaints. Patient seen after MRI, had received sedation meds and was somnolent but arousalable. Results of MRI relayed to patient with plan; patient endorsed understanding. Notes that she is quite deconditioned and would benefit from rehab. Sedation:No Diet/TF:cardiac Estrada: Yes VTE prophylaxis: YES Lovenox Antithrombotic therapy in first 24 hrs: N/A Statin therapy for stroke stroke patients: High intensity Anticoagulation on AF patients: N/A no history of AF Activity: Up walking Disposition: TBD Current Hospital Medications: Current Facility-Administered Medications: dicyclomine (BENTYL) tablet 20 mg, 20 mg, Oral, 4x Daily PRN, Rikki Ceja MD, 20 mg at 03/02/222154 diphenoxylate-atropine (LOMOTIL) 2.5-0.025 MG per tablet 1 tablet, 1 tablet, Oral, 4x Daily PRN, Rikki Ceja MD, 1 tablet at 03/02/222154 0.9 % sodium chloride infusion, , IntraVENous, Continuous, Rikki Ceja MD, Last Rate: 50 mL/hr at 03/02/22358, New Bag at 03/02/22358 sodium chloride flush 0.9 % injection 5-40 mL, 5-40 mL, IntraVENous, 2 times per day, Rikki Ceja MD sodium chloride flush 0.9 % injection 5-40 mL, 5-40 mL, IntraVENous, PRN, Rikki Ceja MD 0.9 % sodium chloride infusion, , IntraVENous, PRN, Rikki Ceja MD acetaminophen (TYLENOL) tablet 650 mg, 650 mg, Oral, Q4H PRN, 650 mg at 03/02/221526 OR acetaminophen (TYLENOL) suppository 650 mg, 650 mg, Rectal, Q4H PRN, Rikki Ceja MD atorvastatin (LIPITOR) tablet 40 mg, 40 mg, Oral, Nightly, Rikki Ceja MD, 40 mg at 03/02/222149 labetalol (NORMODYNE;TRANDATE) injection 10 mg, 10 mg, IntraVENous, Q10 Min PRN, Rikki Ceja MD perflutren lipid microspheres (DEFINITY) injection 1.65 mg, 1.5 mL, IntraVENous, ONCE PRN, Rikki Ceja MD sodium chloride flush 0.9 % injection 5-40 mL, 5-40 mL, IntraVENous, PRN, Rikki Ceja MD polyethylene glycol (GLYCOLAX) packet 17 g, 17 g, Oral, Daily PRN, Rikki Ceja MD melatonin tablet 5 mg, 5 mg, Oral, Nightly PRN, Rikki Ceja MD hydrOXYzine pamoate (VISTARIL) capsule 25 mg, 25 mg, Oral, TID PRN, Rikki Ceja MD promethazine (PHENERGAN) tablet 25 mg, 25 mg, Oral, Q6H PRN, Rikki Ceja MD, 25 mg at 03/02/22 0357 enoxaparin (LOVENOX) injection 40 mg, 40 mg, SubCUTAneous, Daily, Donna High DO capsaicin (ZOSTRIX) 0.025 % cream, , Topical, BID, Donna High DO, Given at 03/02/22 215 RABEprazole (ACIPHEX) tablet 20 mg, 20 mg, Oral, QAM AC, Rikki Ceja MD Continuous Infusions: sodium chloride 50 mL/hr at 03/02/22 0359 sodium chloride Allergies: Paxil [paroxetine hcl], Permethrin, Propofol, Asa [aspirin], Hydromorphone, Ivermectin, Wellbutrin [bupropion], Ciprofloxacin, Darvon [propoxyphene], Iodine, Morphine, Prednisone, Ranitidine hcl, Singulair [montelukast sodium], Skelaxin [metaxalone], Sulfa antibiotics, Tapentadol, Tetracyclines & related, and Tramadol ROS: Unable to obtain complete ROSsecondary to patient poor participation Review of Systems Objective: Telemetry: Arrhythmia:No Physical Examination: Patient Vitals for the past 8 hrs: BP Temp Temp src Pulse Resp SpO2 03/03/22 0301 (!) 184/97 97 F (36.1 C) Temporal 82 16 94 % 03/02/22 2351 (!) 183/109 97.4 F (36.3 C) Temporal 83 16 95 % I/O last 3 completed shifts: In: 200 [P.O.:200] Out: - General Physical Examination: General:obese HEENT:Normocephalic, atraumaticl CV: S1+S2, RRR, no MRG. Pulm:CTA b/l, unlabored Abdomen: Soft NT/ND. BS + Skin: Intact without ulcers, breakdowns or discoloration Extremities: normal with no edema or cyanosis Orthopedic limitation; Yes, due to obesity Pulses: Intact peripherally Carotid auscultation :No bruits Neurological Examination: Higher Functions: Mental Status Exam: Level of Alertness:Somnolent butarrousable Orientation: Normal toself, time, place Memory: Normal Fund of Knowledge: Normal Language: Normal Dysarthria not present Cranial Nerves: -II Visual acuity: normal -II Visualfields: normal -III Pupils (~ 3 mm OD, 3 mm OU) equal, round, reactive to light -III-IV- Extraocular Movements: intact -Nystagmus not present -Saccades and pursuits normal -V Facial sensation: intact Corneal's Intact bilateral -VII Facial strength:intact -VIII Hearing: intact -IX-X - Gag reflex present -X Palate: intact -XI Shoulder shrug: intact -XII Tongue movement: normal MotorExamination: Tone after evaluation of 4 limbs, the following findings applied: Normal . all limbs -Bulk: normal -Muscle Stretch afterevaluation of all limbs, and axial musculature the following findings applied: Drift: absent . -Reflexes: after evaluation of 4 limbs, the following findings applied ; normal all limbs -Plantar responce: Flexor bilaterally Sensory Intact to light touch, pain / temperature, proprioception, Coordination: Arms Normal finger to nose Legs Intact heel knee hernández testing Tremors not participant Gait not participant""normal NIHSS: 0 ANCILLARY Last 24hrs Recent Results (from the past 24 hour(s)) Add On Lab Test Collection Time: 03/02/22 8:21 AM Result Value Ref Range Add On Accepted NA Add On Lab Test Collection Time: 03/02/22 12:02 PM Result Value Ref Range Add On Rejected NA CBC Collection Time: 03/03/22 5:13 AM Result Value Ref Range WBC 7.5 3.6 - 10.7 10*3/uL RBC 4.13 3.80 - 5.20 10*6/uL Hemoglobin 12.0 11.7 - 16.0 g/dL Hematocrit 36.2 35.0 - 47.0 % MCV 87.6 79.0 - 98.0 fL MCH 28.9 26.0 - 34.0 pg MCHC 33.1 32.0 - 36.0 % RDW 17.0 (H) 11.5 - 14.5 % Platelets 262 140 - 440 10*3/uL MPV 8.2 7.4 - 12.4 fL Coagulation: Recent Labs 03/01/22 1954 INR 1.0 Stroke Specific: Lipids: Recent Labs 03/02/22 0338 CHOL 239* LDLCHOLESTEROL 174* TRIG 176* HDL 30* HgA1c: Recent Labs 03/02/228 LABA[address] 5.8* CT head: CT Head without Contrast: Per Dr. Pina read - Area of hypointensity noted in the mesial midbrain yovany. This is a common area of artifact. Therefore, will verify with MRI brain, MRA head and neck MRI: Per read by Dr. Pina: Ischemic stroke of the right KENNEDY (likely anterior pericollosal artery), likely embolic in nature. Medium atherosclerotic intracranial disease noted, with numerous areas of irregularity. Old stroke onthe right side in yovany noted. TTE: pending EEG: n/a AED levels: n/a ASSESSMENT / PLAN/RECOMMENDATIONS: Ischemic stroke of R KENNEDY, likely embolic in nature Recent fall Morbid obesity with BMI >50 Uncontrolled HTN Uncontrolled dyslipidemia Concern for JOSY --> patient had 7-second apneic episode observed today on exam Concern for atrial fibrillation given obesity and JOSY UC GERD w Hx peptic ulcer Depression - Patient exam remains stable with no acute changes -MRI demonstrates stroke in the corpus callosum on the right side. MRA demonstrated medium intracranial atherosclerosis with irregularity in the also appearance; however, MRA of neck limited due to patient ability to tolerate exam. -Therefore, we will order ultrasound of carotids -MRI was also read as possible neoplasm of the corpus callosum due to the rounded appearance of thelesion. No suspicion this is a tumor, however recommend patient obtain follow-up MRI in 4 weeks as outpatient. - Awaiting TTE completion -Patient is at high risk for atrial fibrillation due to obesity, JOSY, likely left atrial enlargement -Will need event monitor as outpatient -We will start patient on Plavix 75 mg daily. No DAPT as patient has allergy to aspirin - Lovenox 40mg SC QD for DVT prophylaxis - Continue Lipitor 40mg -Patient requires outpatient sleep referral for JOSY -Due to deconditioning, patient will likely require rehab at discharge. - PT/OT recs PHQ2 Over the las 2 weeks, how often have you been bothered by the following problems; - Little interest or pleasure in doing things More than half the days = +2 - Feeling down, depressed or hopeless Nearly every day = + 3 - Final score: 4-6 = consult Behavioral Health - Will place numbers to [facility] and [facility] in chart. Discussed with patient who is agreeable Patient seen and discussed with Dr. Pina Associated attestation - Erica Pina MD - 03/03/2022 3:50 PM EDT I personally expend more than 51 % of ; [x] 35, []75 , [] 95 min performing a face to face diagnostic evaluation of this patient in company of my : []CAROLA [x] resident and reviewing labs, imaging studies and electronic medical record reviewed as well as discussing regarding diagnostic impressions and suggested plan of care documented in the attested note I would complete with the following addendum : Patient sleepy at the time of our evaluation because she had just finished her test MRI demonstrating infarction in the corpus callosum, either distal pericallosal artery KENNEDY branch or VEHICLE INSPECTOR branch The aspect of the infarction is "round" and is swelling most likely because It is 2 - 3 days old. Radiology speculated possible tumor , which would be unusual to have this bright DWI pattern, howeverbecause of the comment from radiology we may need to repeat test In 4- 6 weeks Patient with significant JOSY by observation with even 7 seconds of apnea Extensive discussion with her regarding secondary prevention, Plavix Need for evaluation and treatment of JOSY Need for evaluation for bariatric care ( she tells me she has been evaluated in 2 occasions but because of insurance issues she has not been able to have it done Very depresses she will need referral to psyche Event monitor Will review the ECHO which has been done but not completed and decide if need or not for further inpatient testing I think she likely has PAF, has all the risk factors, to include left atrial cardiomyopathy .. likely may need systemic anticoagulation in the near future Continue DVT prophylax Plan for primary care follow up Personal discussion of test results and plan of care with: Patient treatments and testing options informed consent and plan of care, Admitting Team, ., ., . Personal review of: Imaging,Labs,Documented notes since admission or last time seen},.},. * Adelaida Castorena, PT - 03/02/2022 8:44 AM EDT Physical Therapy Facility/Department: [facility] 3W TELEMETRY Physical Therapy Initial Assessment Name: Bradley Matos : 1965 Date of Service: 03/02/2022 Discharge Recommendations: IP Rehab Patient Diagnosis(es): The encounter diagnosis was Left-sided weakness. Past Medical History: has a past medical history of Anxiety, Chronic fatigue syndrome, Depression, Diverticulitis, Fibromyalgia, GERD (gastroesophageal reflux disease), Hiatal hernia, IBS (irritable bowel syndrome), Obesity, Peptic ulcer, PTSD (post-traumatic stress disorder), Sjogren's syndrome (HCC), and Umbilical hernia. Past Surgical History: has a past surgical history that includes section; knee surgery (Left, 2015); Abdomen surgery; and Colonoscopy (2017). Assessment Body Structures, Functions, Activity Limitations Requiring Skilled Therapeutic Intervention: Decreased functional mobility ;Decreased strength;Decreased endurance;Decreased balance;Increased pain Assessment: pt presents with the deficits listed above; pt with Lt sided weakness and needs asisistwith all mobility and gait; pt lives alone; recommend rehab level therapy post acute care; pt wouldtolerate 15 hours of therapy each week Therapy Prognosis: Fair Decision Making: Medium Complexity Requires PT Follow-Up: Yes Activity Tolerance Activity Tolerance: Patient limited by fatigue;Patient limited by endurance Plan Plan Plan: 5-7 times per week Plan weeks: 2 weeks Current Treatment Recommendations: Strengthening,Balance training,Functional mobility training,Transfer training,Stair training,Gait training,Endurance training,Neuromuscular re-education,Home exercise program,Safety education & training,Therapeutic activities Safety Devices Type of Devices: Gait belt,Patient at risk for falls,Left in bed,Call light within reach Restrictions Subjective General Chart Reviewed: Yes Patient assessed for rehabilitation services?: Yes Diagnosis: Lt sided weakness Follows Commands: Within Functional Limits Other (Comment): admitted with Lt sided weakness and slurred speech Subjective Subjective: very pleasant and cooperative; pt reports falling off chair at work a few days ago; also reports 1 fall at home over the past 3 months; c/o Sofia knee pain 05/18 (pt awaiting daughter to bring pain meds from home); pt reports that she needs Sofia TKA Social/Functional History Social/Functional History Lives With: Alone Type of Home: House Home Layout: One level,Laundry in basement Home Access: Stairs to enter with rails Entrance Stairs - Number of Steps: 1 flight to enter from basement Home Equipment: Walker, rolling ADL Assistance: Independent Homemaking Assistance: Independent Ambulation Assistance: Independent Transfer Assistance: Independent 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 Vision/Hearing Cognition Orientation Overall Orientation Status: Within Normal Limits Objective PROM RLE (degrees) RLE PROM: WFL AROM RLE (degrees) RLE AROM: WFL PROM LLE (degrees) LLE PROM: WFL AROM LLE (degrees) LLE General AROM: Lt hip flexion approx 25% Strength RLE R Hip Flexion: 3+/5 R Knee Extension: 4/5 R Ankle Dorsiflexion: 4/5 Strength LLE L Hip Flexion: 2-/5 L Knee Extension: 3+/5 L Ankle Dorsiflexion: 4/5 Bed mobility Supine to Sit: Minimal assistance Scooting: Minimal assistance Bed Mobility Comments: with rail and HOB elevated; increased time to complete Transfers Sit to Stand: Moderate Assistance Stand to sit: Moderate Assistance Comment: pt with 3 unsuccessful attempts Ambulation Surface: level tile Device: Rolling Walker Assistance: Minimal assistance Gait Deviations: Slow Tenisha;Decreased step length Distance: 20 feet Balance Posture: Fair Sitting - Static: Good Sitting - Dynamic: Good;- Standing - Static: Fair;- Standing - Dynamic: Fair;- AM-PAC Score AM-PAC Inpatient Mobility Raw Score : 11 (03/02/22827) AM-PAC Inpatient T-Scale Score : 33.86 (03/02/22827) Mobility Inpatient CMS 0-100% Score: 72.57 (03/02/22827) Mobility Inpatient [facility] G-Code Modifier : CL (03/02/22827) Goals Short Term Goals Time Frame for Short term goals: 2 weeks Short term goal 1: Bed mobility Indep Short term goal 2: Transfers Indep Short term goal 3: Gait 50 feet with ww and mod Indep Short term goal 4: 1 flight with rail and supervision Patient Goals Patient goals : None given Education Patient Education Education Given To: Patient Education Provided: Role of Therapy;Plan of Care;Transfer Training Education Method: Verbal Barriers to Learning: None Therapy Time Individual Concurrent Group Co-treatment Time In 0755 Time Out 0820 Minutes 25 Patient s Physical Therapy Plan of Care supervision is transferred to [facility] Rehab Department Physical Therapist. Plan to be activated only if patient is admitted or for assessing discharge needs. Having reviewed the physical therapy treatment plan and goals for this patient, I certify that the attached plan is medically necessary and appropriate. This PT wore mask and gloves throughout the entire session. Adelaida Castorena, PT * [place] - 03/02/2022 7:52 AM EDT Speech Language Pathology Patient passed the Nursing Swallowing Screening and is on a Regular diet, Cardiac: Low fat, Low cholesterol. High Fiber, AUDREY with Thin liquids. Completed speech orders as per stroke protocol. Viola Dailey MA [facility] AGILE PLM CONSULTANT documented in this [facility] Work Phone: [phone] [phone] Critical access hospital Discharge Summary and Transition Note Bradley Matos : 1965 ADMIT DATE: 03/01/2022 DISCHARGE DATE: 03/05/2022 PRIMARY CARE PHYSICIAN: Didier Hicks MD VISIT STATUS: Admission CODE STATUS: Full Code DISCHARGE DIAGNOSES: Principal Problem: Stroke-like symptoms Active Problems: Left-sided weakness Ulcerative colitis, chronic (HCC) Morbid obesity (HCC) PTSD (post-traumatic stress disorder) Peptic ulcer IBS (irritable bowel syndrome) GERD (gastroesophageal reflux disease) Fibromyalgia Anxiety Essential hypertension Resolved Problems: * No resolved hospital problems. * HOSPITAL COURSE: 56 y.o. female with a PMHx of anxiety, depression, fibromyalgia, ulcerative colitis, morbid obesity, Sjogren's, PTSD, GERD/peptic ulcer, who presented to [facility] ED with left sided weakness and slurred speech starting the morning of 02/28. On evaluation, her initial BP was 210/91. Llab work was unremarkable. CT head revealed an old lacunar infarct in the right caudate. She was admitted to [facility] for further stroke work up. Neuro was consulted. MRI brain revealed right corpus collosum ischemic stroke. She was started on plavix and atorvastatin, as well as amlodipine. Neurology recommendations are as follows: "Etiology of stroke is cryptogenic for which pt will need to follow up with cryptogenic stroke clinic for OP event monitor/ILR. Will start Plavix daily. OK to titrate BP down to SBP ~ 160 with goal of <140/90 to be achieved over the next 2-4 weeks." She was discharged to [facility] rehab in stable condition. PROCEDURES: none CONSULTANTS: Dr Pina - neuro DISCHARGE MEDICATIONS: Significant Medication Changes: Atorvastatin started plavix started Amlodipine started Gabapentin started Prn PO hydralazine while at rehab Medication List START taking these medications amLODIPine 10 MG tablet Commonly known as: NORVASC Take 1 tablet by mouth daily Start taking on: March 06, 2022 atorvastatin 40 MG tablet Commonly known as: LIPITOR Take 1 tablet by mouth nightly capsaicin 0.025 % cream Commonly known as: ZOSTRIX Apply topically 2 times daily. clopidogrel 75 MG tablet Commonly known as: PLAVIX Take 1 tablet by mouth daily enoxaparin 40 MG/0.4ML Commonly known as: LOVENOX Inject 0.4 mLs into the skin daily Start taking on: March 06, 2022 gabapentin 100 MG capsule Commonly known as: NEURONTIN Take 1 capsule by mouth 2 times daily for 30 days. hydrALAZINE 10 MG tablet Commonly known as: APRESOLINE Take 1 tablet by mouth 4 times daily as needed (for SBP > 180) melatonin 5 MG Tabs tablet Take 1 tablet by mouth nightly as needed (insomnia) CHANGE how you take these medications promethazine 25 MG tablet Commonly known as: PHENERGAN Take 1 tablet by mouth every 6 hours as needed for Nausea What changed: ? medication strength ? how much to take ? when to take this ? reasons to take this CONTINUE taking these medications acetaminophen 500 MG tablet Commonly known as: TYLENOL dicyclomine 20 MG tablet Commonly known as: BENTYL TAKE 1 TABLET BY MOUTH EVERY 6 HOURS NEEDED FOR CONSTIPATION Lomotil 2.5-0.025 MG per tablet Generic drug: diphenoxylate-atropine RABEprazole 20 MG tablet Commonly known as: ACIPHEX Take 1 tablet by mouth daily STOP taking these medications diclofenac 50 MG EC tablet Commonly known as: VOLTAREN diclofenac 75 MG EC tablet Commonly known as: VOLTAREN Where to Get Your Medications Information about where to get these medications is not yet available Ask your nurse or doctor about these medications ? amLODIPine 10 MG tablet ? atorvastatin 40 MG tablet ? capsaicin 0.025 % cream ? clopidogrel 75 MG tablet ? enoxaparin 40 MG/0.4ML ? gabapentin 100 MG capsule ? hydrALAZINE 10 MG tablet ? melatonin 5 MG Tabs tablet ? promethazine 25 MG tablet DIET: cardiac ACTIVITY: up with assistance SIGNIFICANT DIAGNOSTIC STUDIES: MRI brain: No enhancement of the area of restricted in the superior aspect of the right cerebral hemisphere. Findings are consistent with a recent ischemic event. No enhancement of brain or meninges to indicate intracranial malignancy or metastatic disease COMPLEXITY OF FOLLOW UP: [] Moderate Complexity: follow up within 7-14 calendar days (18783) [x] Severe Complexity: follow up within 7 calendar days (82534) FOLLOW UP TESTING, PENDING RESULTS OR REFERRALS AT TRANSITIONAL CARE VISIT: [x] Yes [] No *follow up in cryptogenic stroke clinic *titrate BP meds DISPOSITION: Inpatient rehab FACILITY/HOME CARE AGENCY NAME: [facility] Follow up with Didier Hicks MD to be scheduled after dc from rehab Notification (telephone encounter) to PCP initiated: [x] Yes [] No INSTRUCTIONS TO MA/SW: Please call patient on day after discharge (must document patient contacted within 2 business days of discharge). FOLLOW UP QUESTIONS FOR MA/ (more content not included)...[facility] 03-05-2022 Hospital course Narrative* Lonnie Haile, DO - 03/05/2022 11:14 AM EDT Images from the original note were not included. [facility] Discharge Summary and Transition Note Bradley Matos : 1965 ADMIT DATE: 03/01/2022 DISCHARGE DATE: 03/05/2022 PRIMARY CARE PHYSICIAN: Didier Hicks MD VISIT STATUS: Admission CODE STATUS: Full Code DISCHARGE DIAGNOSES: Principal Problem: Stroke-like symptoms Active Problems: Left-sided weakness Ulcerative colitis, chronic (HCC) Morbid obesity (HCC) PTSD (post-traumatic stress disorder) Peptic ulcer IBS (irritable bowel syndrome) GERD (gastroesophageal reflux disease) Fibromyalgia Anxiety Essential hypertension Resolved Problems: * No resolved hospital problems. * HOSPITAL COURSE: 56 y.o. female with a PMHx of anxiety, depression, fibromyalgia, ulcerative colitis, morbid obesity, Sjogren's, PTSD, GERD/peptic ulcer, who presented to [facility] ED with left sided weakness and slurred speech starting the morning of 02/28. On evaluation, her initial BP was 210/91. Llab work was unremarkable. CT head revealed an old lacunar infarct in the right caudate. She was admitted to [facility] for further stroke work up. Neuro was consulted. MRI brain revealed right corpus collosum ischemic stroke. She was started on plavix and atorvastatin, as well as amlodipine. Neurology recommendations are as follows: "Etiology of stroke is cryptogenic for which pt will need to follow up with cryptogenic stroke clinic for OP event monitor/ILR. Will start Plavix daily. OK to titrate BP down to SBP ~ 160 with goal of <140/90 to be achieved over the next 2-4 weeks." She was discharged to [facility] in stable condition. PROCEDURES: none CONSULTANTS: Dr Pina - neuro DISCHARGE MEDICATIONS: Significant Medication Changes: Atorvastatin started plavix started Amlodipine started Gabapentin started Prn PO hydralazine while at rehab Medication List START taking these medications amLODIPine 10 MG tablet Commonly known as: NORVASC Take 1 tablet by mouth daily Start taking on: March 06, 2022 atorvastatin 40 MG tablet Commonly known as: LIPITOR Take 1 tablet by mouth nightly capsaicin 0.025 % cream Commonly known as: ZOSTRIX Apply topically 2 times daily. clopidogrel 75 MG tablet Commonly known as: PLAVIX Take 1 tablet by mouth daily enoxaparin 40 MG/0.4ML Commonly known as: LOVENOX Inject 0.4 mLs into the skin daily Start taking on: March 06, 2022 gabapentin 100 MG capsule Commonly known as: NEURONTIN Take 1 capsule by mouth 2 times daily for 30 days. hydrALAZINE 10 MG tablet Commonly known as: APRESOLINE Take 1 tablet by mouth 4 times daily as needed (for SBP > 180) melatonin 5 MG Tabs tablet Take 1 tablet by mouth nightly as needed (insomnia) CHANGE how you take these medications promethazine 25 MG tablet Commonly known as: PHENERGAN Take 1 tablet by mouth every 6 hours as needed for Nausea What changed: medication strength how much to take when to take this reasons to take this CONTINUE taking these medications acetaminophen 500 MG tablet Commonly known as: TYLENOL dicyclomine 20 MG tablet Commonly known as: BENTYL TAKE 1 TABLET BY MOUTH EVERY 6 HOURS NEEDED FOR CONSTIPATION Lomotil 2.5-0.025 MG per tablet Generic drug: diphenoxylate-atropine RABEprazole 20 MG tablet Commonly known as: ACIPHEX Take 1 tablet by mouth daily STOP taking these medications diclofenac 50 MG EC tablet Commonly known as: VOLTAREN diclofenac 75 MG EC tablet Commonly known as: VOLTAREN Where to Get Your Medications Information about where to get these medications is not yet available Ask your nurse or doctor about these medications amLODIPine 10 MG tablet atorvastatin 40 MG tablet capsaicin 0.025 % cream clopidogrel 75 MG tablet enoxaparin 40 MG/0.4ML gabapentin 100 MG capsule hydrALAZINE 10 MG tablet melatonin 5 MG Tabs tablet promethazine 25 MG tablet DIET: cardiac ACTIVITY: up with assistance SIGNIFICANT DIAGNOSTIC STUDIES: MRI brain: No enhancement of the area of restricted in the superior aspect of the right cerebral hemisphere. Findings are consistent with a recent ischemic event. No enhancement of brain or meninges to indicate intracranial malignancy or metastatic disease COMPLEXITY OF FOLLOW UP: [] Moderate Complexity: follow up within 7-14 calendar days (84268) [x] Severe Complexity: follow up within 7 calendar days (34113) FOLLOW UP TESTING, PENDING RESULTS OR REFERRALS AT TRANSITIONAL CARE VISIT: [x] Yes [] No *follow up in cryptogenic stroke clinic *titrate BP meds DISPOSITION: Inpatient rehab FACILITY/HOME CARE AGENCY NAME: [facility] Follow up with Didier Hicks MD to be scheduled after dc from rehab Notification (telephone encounter) to PCP initiated: [x] Yes [] No INSTRUCTIONS TO MA/SW: Please call patient on day after discharge (must document patient contacted within 2 business days of discharge). FOLLOW UP QUESTIONS FOR MA/SW: 1. Did you get medications filled and taking them as instructed from discharge? 2. Are you following your discharge instructions from your hospital stay? 3. Please confirm patient is scheduled for a follow up appointment within the above time frame. DISCHARGE TIME: > 30 minutes documented in this [facility] Work Phone: [phone] [phone] Hospital Discharge instructions* Discharge Instr - Lab* Perla Gaspar RN - 03/04/2022 8:45 AM EDT New Patient Appointment with Dr. Gen Taylor MD Friday 11:30 AM Please arrive 15 minutes prior to scheduled appointment time to complete paper work, bring photo IDand insurance cards. [facility] [address] [id number] Please call Nereida Brice APRN at with [facility] to schedule a 30 day mobile tele monitorupon patients discharge from Rehab. * Discharge Instr - ADAN* Lonnie Haile DO - 03/04/2022 12:46 PM EDT Continuity of Care Form Patient Name: Bradley Matos : 1965 Admit date: 03/01/2022 Discharge date: 03/05/22 Code Status Order: Full Code Advance Directives: Admitting Physician: Rikki Ceja MD PCP: Didier Hicks MD Discharging Nurse: PAYTON Saez Discharging Hospital Unit/Room#: 1322/1322A Discharging Unit Phone Number: [phone] Emergency Contact: Extended Emergency Contact Information Primary Emergency Contact: Daiana Shine Address: [address] [place] [address] of [facility] Mobile Relation: Child Past Surgical History: Past Surgical History: Procedure Laterality Date ABDOMEN SURGERY 7-8 inches for diveritculitis SECTION COLONOSCOPY 2017 [facility] KNEE SURGERY Left 2015 meniscal removal and chondroplasty Immunization History: Immunization History Administered Date(s) Administered COVID-19, Pfizer Min top, DO NOT Dilute, Fernando-Sucrose, 12+ yrs, PF, 30 mcg/0.3 mL dose 09/28/2021 COVID-19, Pfizer Purple top, DILUTE for use, 12+ yrs, 30mcg/0.3mL dose 01/27/2021, 02/17/2021 Influenza Virus Vaccine 05/20/2013, 06/22/2014, 06/21/2016, 06/06/2017 Influenza Whole 06/23/2016 Influenza, Quadv, IM, PF (6 mo and older Fluzone, Flulaval, Fluarix, and 3 yrs and older Afluria) 09/21/2019 Pneumococcal Polysaccharide ([id number]) 06/23/2015 Active Problems: Patient Active Problem List Diagnosis Code Ulcerative colitis, chronic ([facility]) K51.90 Morbid obesity (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) F32.2 Osteoarthritis of both knees M17.0 Nausea vomiting and diarrhea R11.2, R19.7 Rhinosinusitis J31.0, J32.9 Left-sided weakness R53.1 Stroke-like symptoms R29.90 Isolation/Infection: Isolation No Isolation Patient Infection Status Infection Onset Added Last Indicated Last Indicated By Review Planned Expiration Resolved Resolved By None active Resolved COVID-19 (Rule Out) 08/16/21 08/16/21 08/21/21 COVID-19, Flu A/B, and RSV Combo (Ordered) 08/22/21 Rule-Out Test Resulted COVID-19 (Rule Out) 12/07/20 12/07/20 12/07/20 COVID-19 (Ordered) 12/08/20 Rule- Out Test Resulted COVID-19 (Rule Out) 06/05/20 06/05/20 06/05/20 COVID-19 (Ordered) 06/19/20 Nurse Assessment: Last Vital Signs: BP (!) 188/81 Pulse 73 Temp 97.8 F (36.6 C) (Temporal) Resp 18 Ht 5' 6" (1.676 m) Wt (!) 325 lb (147.4 kg) SpO2 94% BMI 52.46 kg/m Last documented pain score (0-10 scale): Pain Level: 1 Last Weight: Wt Readings from Last 1 Encounters: 03/01/22 (!) 325 lb (147.4 kg) Mental Status: oriented, alert, coherent, and thought processes intact IV Access: - None Nursing Mobility/ADLs: Walking Assisted Transfer Assisted Bathing Assisted Dressing Assisted Toileting Assisted Feeding Independent Command Center Officer Independent Med Delivery whole Wound Care Documentation and Therapy: Elimination: Continence: Bowel: Yes Bladder: Yes Urinary Catheter: None Colostomy/Ileostomy/Ileal Conduit: No Date of Last BM: 03/04/22 No intake or output data in the 24 hours ending 03/04/22 1245 No intake/output data recorded. Safety Concerns: History of Falls (last 30 days) and At Risk for Falls Impairments/Disabilities: None Nutrition Therapy: Current Nutrition Therapy: - Oral Diet: General Routes of Feeding: Oral Liquids: Thin Liquids Daily Fluid Restriction: no Last Modified Barium Swallow with Video (Video Swallowing Test): not done Treatments at the Time of Hospital Discharge: Respiratory Treatments: n/a Oxygen Therapy: is not on home oxygen therapy. Ventilator: - No ventilator support Rehab Therapies: Physical Therapy and Occupational Therapy Weight Bearing Status/Restrictions: No weight bearing restrictions Other Medical Equipment (for information only, NOT a DME order): wheelchair, walker, bath bench, and bedside commode Other Treatments: n/a Patient's personal belongings (please select all that are sent with patient): Bimal CAIN SIGNATURE: CASE MANAGEMENT/SOCIAL WORK SECTION Inpatient Status Date: 03/01/2022 Readmission Risk Assessment Score: Readmission Risk Risk of Unplanned Readmission: 7 Discharging to Facility/ Agency Name: [facility] Address: [address] [place], [place] [id number] Fax: Dialysis Facility (if applicable) Name: Address: Dialysis Schedule: Phone: Fax: Second Cutter/Engine Lathe Set Up Operator Tool signature: ICIAN SECTION Prognosis: Good Condition at Discharge: Stable Rehab Potential (if transferring to Rehab): Good Recommended Labs or Other Treatments After Discharge: NEURO REC'S: Etiology of stroke is cryptogenic for which pt will need to follow up with cryptogenic stroke clinic for OP event monitor/ILR. Will start Plavix daily." OK to titrate BP down to SBP ~ 160 with goalof <140/90 to be achieved over the next 2-4 weeks." Physician Certification: I certify the above information and transfer of Bradley Matos is necessary for the continuing treatment of the diagnosis listed and that she requires Acute Rehab for less 30 days. Update Admission H&P: No change in H&P PHYSICIAN SIGNATURE: * Additional Instructions* Perla Gaspar RN - 03/02/2022 Refer to the Understanding Stroke Booklet given to you, written material provided to patient/family, addressing all signs & symptoms of a stroke, which are: sudden numbness or weakness of the face, arm or leg, especially on one side of the body sudden confusion sudden difficulty speaking or understanding sudden trouble seeing in one or both eyes sudden trouble walking,dizziness, loss of balance or coordination sudden severe headache with no known cause syncope or temporary loss of consciousness seizure Explained the need to call EMS (911) immediately if signs & symptoms occur. Discussed medications that the patient is taking, will review medications again prior to discharge, risk factors, and the need for follow-up with a physician/PLUG AND MOLD FINISHER/PA after discharge. Discussed the patient s personal risk factors for Stroke /TIA with patient/family, and ways to reduce the risk for a recurrent stroke. Patient's personal risk factors which were identified are: [] High blood pressure [] High cholesterol [] Atrial fibrillation [] Diabetes [] Smoking/e-cigarettes/vaping [] Smokeless tobacco [x] Overweight [x] Lack of Exercise [] Sleep apnea [] Prior heart disease or heart attack [] Excessive alcohol use [] Use of illicit drugs [] Personal history of previous TIA or stroke [x] Family history of stroke or heart disease [] Carotid stenosis [] Heart failure [] Patent Foramen Ovale [] Migraine [] Hormone replacement therapy [] Current (up to six weeks post ) [x] Depression [] Sickle Cell [] Renal insufficiency - chronic [] None Refer to Understanding Stroke Booklet. Advised patient that risk for stroke/TIA can be reduced by modifying/controlling risk factors. Patient advised to take medications as prescribed, which will be detailed in the discharge instructions, and to not stop taking them without consulting a physician. In addition, pt. advised to maintain a healthy diet, exercise regularly and to not smoke. documented in this [facility] Work Phone: Evaluation note* Diagnosis External constriction of right foot, initial encounter- Primary Anxiety state Anxiety state, unspecified [facility] Work Phone: Evaluation note* Diagnosis Stroke-like symptoms- Primary Other symptoms involving nervous and musculoskeletal systems Left-sided weakness Muscle weakness (generalized) Anxiety Anxiety state, unspecified GERD (gastroesophageal reflux disease) Esophageal reflux Morbid obesity (HCC) Morbid obesity Essential hypertension Unspecified essential hypertension PTSD (post-traumatic stress disorder) Posttraumatic stress disorder Fibromyalgia Mylagia and myositis, unspecified IBS (irritable bowel syndrome) Irritable bowel syndrome Peptic ulcer Peptic ulcer, unspecified site, unspecified as acute or chronic, without mention of hemorrhage, perforation, or obstruction Ulcerative colitis, chronic (HCC) Ulcerative colitis, unspecified [facility] Work Phone: Evaluation note* Diagnosis Recent cerebrovascular accident (CVA)- Primary [facility] Diagnosis Recent cerebrovascular accident (CVA) [facility]No assessment information availableWShelby [facility] Work Phone: Hospital Discharge instructions* Instructions* Papito Shrestha MD - 07/19/2021 Return to Emergency Room immediately if any new or worsening problems. [facility] Work Phone: Reason for referral (narrative)No reason for referral information availableWShelby Memorial Hospital Work Phone: Reason for visit Narrative* Auth/Cert Specialty Diagnoses / Procedures Referred By Contac t Referred To Contact Diagnoses Aftercare +COVID,recent CVA,L side weakness Procedures n/a Ld Acute Care/Swing [address] [place] [id number] Referral ID Status Reason Start Date Expiration Date Visits Re quested Visits Authorized [id number] 1 1 [facility] Summary Purpose Family History No Family History Records Found Relationship Condition Age at Onset Recorded Date/T lucinda Unknown Family History?Heart Disease, - Unknown April 23, 2016 7:59pm Family History?Heart Disease, - Unknown April 23, 2016 7:59pm Family History?No pe rtinent history Unknown April 10, 2016 6:37pm Family History?No pe rtinent history Unknown April 23, 2016 7:59pm Advance Directives No Advanced Directives Records FoundDocuments on File Type Date Recorded Patient Swage Toolsetter Expl anation Advance Directives and Living Will Power of Auxiliary Power Equipment Operator Documents on File Type Date Recorded Patient Swage Toolsetter Expl anation ACP-Advance Directive ACP-Power of Auxiliary Power Equipment Operator Documents on File Type Date Recorded Patient Swage Toolsetter Expl anation ACP-Advance Directive ACP-Power of Auxiliary Power Equipment Operator Latest Code Status on File Code Status Date Activated Date Inactivated Comments Full Code 03/02/2022 3:17 AM Documents on File Type Date Recorded Patient Swage Toolsetter Expl anation Advance Directive(s) 03/13/2022 4:11 PM Advance Directive(s) 03/08/2022 11:39 PM Advance Directive(s) 02/04/2019 11:42 PM Advance Directive(s) 03/11/2018 10:43 PM Advance Directive(s) 12/28/2017 4:19 PM Advance Directive(s) 06/06/2017 2:51 PM Documents on File Type Date Recorded Patient Swage Toolsetter Expl anation Advance Directive(s) 03/25/2022 12:30 PM Advance Directive(s) 03/13/2022 4:11 PM Advance Directive(s) 03/08/2022 11:39 PM Advance Directive(s) 02/04/2019 11:42 PM Advance Directive(s) 03/11/2018 10:43 PM Advance Directive(s) 12/28/2017 4:19 PM Advance Directive(s) 06/06/2017 2:51 PM Advance Directive Response Recorded Date/ Time Advance Directives No April 16 2:20pm Reason for Referral Specialty Diagnoses / Procedures Referred By Contac t Referred To Contact Orthopedic Surgery Diagnoses External constriction of right foot, initial encounter Papito Shrestha MD [address] [place] [address] [place] [address] [facility] [place] [address] Referral ID Status Reason Start Date Expiration Date V isits Requested Visits Authorized [id number] Open Specialty Services Required 07/19/2021 07/19/2022 1 1 Scheduling Instructions [facility] [address] [place] [address] Specialty Diagnoses / Procedures Referred By Jose Angel luther Referred To Contact CT IMAGING Diagnoses Recent cerebrovascular accident (CVA) Procedures CT BRAIN WO IVCON CT HEAD/BRAIN W/O CONTRAST MATERIAL Emeterio Ricardo, PROFESSOR SCULPTURE.CARPET SEWER [address] [place] [address] Ct Imaging Referral ID Status Reason Start Date Expiration Date Visits Requested Visits Authorized [id number] Pending Review Auto-Generat ed Referral 03/20/2022 04/19/2023 1 1 Health Concerns Infection Onset Date Last Indicated Resolved Time COVID-19 Confirmed 03/09/2022 03/09/2022 Infection Onset Date Last Indicated Resolved Time COVID-19 Confirmed 03/09/2022 03/25/2022 COVID-19 Rule-Out 03/25/2022 03/25/2022 03/25/2022 2:18 PM EDT Chief Complaint and Reason for Visit Chief Complaint Admit Date CORRECTION LAB WORK September 17, 2024 5:00am CORRECTION LAB WORK October 04, 2024 5:00am CORRECTION LAB WORK October 27 5:00am Chief Complaint Admit Date CORRECTION LAB WORK October 27 5:00am CORRECTION LAB WORK December 07, 2024 6: 40am LABWORK February 07, 2025 5:00a m Additional Source Comments INFORMATION SOURCE (unrecogn ized section and content) DATE CREATED AUTHOR 03/12/2018 Joao [facility] DATE CREATED AUTHOR AUTHOR'S ORGANIZ ATION 03/02/2022 [facility] DATE CREATED AUTHOR AUTHOR'S ORGANIZ ATION 03/05/2022 [facility] DATE CREATED AUTHOR AUTHOR'S ORGANIZ ATION 03/30/2022 [facility] DATE CREATED AUTHOR AUTHOR'S ORGANIZ ATION 04/03/2022 [facility] DATE CREATED AUTHOR AUTHOR'S ORGANIZ ATION 04/15/2022 [facility] DATE CREATED AUTHOR AUTHOR'S ORGANIZ ATION 05/18/2022 [facility] DATE CREATED AUTHOR AUTHOR'S ORGANIZ ATION 11/07/2022 [facility] DATE CREATED AUTHOR AUTHOR'S ORGANIZ ATION 09/22/2024 [facility] DATE CREATED AUTHOR AUTHOR'S ORGANIZ ATION 02/23/2025 [facility] Reason for Visit (unrecogniz ed section and content) Reason Comments Foot Injury woke up this morning , states R instep was discolored. Has resolved Reason Comments Extremity Weakness Reason Comments Orders CT Brain Reason Comments Specialty Diagnoses / Procedures Referred By Jose Angel t Referred To Contact Diagnoses [I63.9] - Cerebral infarction [facility] [address] [place] [address] Referral ID Status Reason Start Date Expiration Date V isits Requested Visits Authorized [id number] New Request 04/15/2022 06/14/2022 Care Teams (unrecognized sec tion and content) Web Operations Administrator Relationship Specialty Start Date End Date Didier Hicks MD [address] [facility] [address] [place], [place] [phone] PCP - General Family Medicine 08/24/18 Web Operations Administrator Relationship Specialty Start Date End Date Didier Hicks MD [address] [facility] [address] [place], [place] [phone] PCP - General Family Medicine 08/24/18 Web Operations Administrator Relationship Specialty Start Date End Date Didier Hicks MD [address] [place], [place] [phone] PCP - General Family Medicine 08/24/18 Web Operations Administrator Relationship Specialty Start Date End Date Didier Hicks [address] [place] [address] PCP - General Family Practice 03/07/22 Web Operations Administrator Relationship Specialty Start Date End Date Hicks, Didier [address] [place] [address] PCP - General Family Practice 03/07/22 Web Operations Administrator Relationship Specialty Start Date End Date Didier Hicks [address] [place] [address] PCP - General Family Practice 03/07/22 Web Operations Administrator Relationship Specialty Start Date End Date HicksDidier cunha [address] [place] [address] PCP - General Family Practice 03/07/22 Team Status: Active Member Role Status Dates No Primary Care Physician Family Provider Active No Primary Care Physician Primary Care Provider Active Team Status: Inactive Member Role Status Dates No Primary Care Physician Primary Care Provider Active Start: September 17, 2024 End: September 17, 2024 Gee HERRMANN Attending Provider Active Star t: September 17, 2024 End: September 17, 2024 Team Status: Active Member Role Status Dates No Primary Care Physician Primary Care Provider Active Start: October 04, 2024 Gee HERRMANN Attending Provider Active Star t: October 04, 2024 Team Status: Active Member Role Status Dates No Primary Care Physician Primary Care Provider Active Start: October 27, 2024 Gee HERRMANN Attending Provider Active Star t: October 27, 2024 Team Status: Active Member Role Status Dates No Primary Care Physician Primary Care Provider Active Start: December 07, 2024 Gee HERRMANN Attending Provider Active Star t: December 07, 2024 Team Status: Inactive Member Role Status Dates No Primary Care Physician Primary Care Provider Active Start: December 07, 2024 End: December 07, 2024 Gee HERRMANN Attending Provider Active Star t: December 07, 2024 End: December 07, 2024 Gee HERRMANN Referring Provider Active Star t: December 07, 2024 End: December 07, 2024 Team Status: Inactive Member Role Status Dates No Primary Care Physician Primary Care Provider Active Start: February 07, 2025 End: February 07, 2025 Gee HERRMANN Attending Provider Active Star t: February 07, 2025 End: February 07, 2025 Ordered Prescriptions (unrec ognized section and content) Prescription Sig Dispensed Refills Start Date End Da te clopidogrel (PLAVIX) 75 MG tablet Take 1 tablet by mouth daily 30 tablet 3 03/05/2022 amLODIPine (NORVASC) 10 MG tablet Take 1 tablet by mouth daily 30 tablet 3 03/06/2022 hydrALAZINE (APRESOLINE) 10 MG tablet Take 1 tablet by mouth 4 times daily as needed (for SBP > 180) 90 tablet 3 03/05/2022 03/05/2023 promethazine (PHENERGAN) 25 MG tablet Take 1 tablet by mouth every 6 hours as needed for Nausea 0 03/05/2022 03/12/2022 enoxaparin (LOVENOX) 40 MG/0.4ML Inject 0.4 mLs into the skin daily 0 03/06/2022 melatonin 5 MG TABS tablet Take 1 tablet by mouth nightly as needed (insomnia) 0 03/05/2022 capsaicin (ZOSTRIX) 0.025 % cream Apply topically 2 times daily. 1 03/05/2022 04/04/2022 atorvastatin (LIPITOR) 40 MG tablet Take 1 tablet by mouth nightly 30 tablet 3 03/05/2022 gabapentin (NEURONTIN) 100 MG capsule Take 1 capsule by mouth 2 times daily for 30 days. 90 capsule 3 03/05/2022 04/04/2022 amLODIPine (NORVASC) 5 MG tablet Take 1 tablet by mouth daily 30 tablet 3 03/06/2022 03/05/2022 Scheduled Active and Recently Administ ered Medications (unrecognized section and content) Medication Order 03/03/2022 03/04/2022 03/05/2022 amLODIPine (NORVASC) tablet 10 mg 10 mg, Oral, DAILY, First dose (after last modification) on Fri03/06/22 at 0900, Until Discontinued amLODIPine (NORVASC) tablet 5 mg (CANCELED) 5 mg, Oral, DAILY, First dose on Fri03/04/22 at 1430, Until Discontinued 1420 (Given - Provider: Nadja Aguirre RN) 0953 (Given - Provider: Nadja Aguirre RN) amLODIPine (NORVASC) tablet 5 mg 5 mg, Oral, ONCE, 1 dose, On Fri03/05/22 at 1445 1445 (Due) atorvastatin (LIPITOR) tablet 40 mg 40 mg, Oral, NIGHTLY, First dose on 03/02/22 at 2100, Until Discontinued, If patient with no documented allergies or prior reported intolerance to Statins 2018 (Given - Provider: Bel Martin RN) 2038 (Given - Provider: Dorcas Hogan RN) 2099 (Due) capsaicin (ZOSTRIX) 0.025 % cream Topical, 2 TIMES DAILY, First dose on 03/02/22 at 2100, Apply to bilateral knees. Do not apply to wounds, damaged,broken or irritated skin. Do not cover with bandage. Do not use in combination with external heat source (eg. heating pad) 0738 (Given - Provider: Keke Reich RN)2016 (Held - Provider: Bel Martin RN - Reason: Patient/family refused) 09 (Not Given - Provider: Nadja Aguirre RN - Reason: Patient/family refused)2038 (Given - Provider: Dorcas Hogan RN) 09 (Not Given - Provider: Nadja Aguirre RN - Reason: Patient/family refused)2099 (Due) clopidogrel (PLAVIX) tablet 75 mg 75 mg, Oral, DAILY, First dose on Fri03/05/22 at 1445, Until Discontinued 1445 (Due) enoxaparin (LOVENOX) injection 40 mg 40 mg, SubCUTAneous, DAILY, First dose (after last modification) on Fri03/02/22 at 0900, Until Discontinued, Indication of Use: Prophylaxis-DVT/PE 0738 (Not Given - Provider: Keke Reich RN - Reason: Patient/family refused) 09 (Not Given - Provider: Nadja Aguirre RN - Reason: Patient/family refused) 0955 (Not Given - Provider: Nadja Aguirre RN - Reason: Patient/family refused) gabapentin (NEURONTIN) capsule 100 mg 100 mg, Oral, 2 TIMES DAILY, First dose on 03/03/22 at 1000, Until Discontinued 1006 (Given - Provider: Keke Reich RN)2018 (Given - Provider: Bel Martin RN) 0915 (Given - Provider: Nadja Aguirre RN)2038 (Given - Provider: Dorcas Hogan, RN) 0953 (Given - Provider: Nadja Aguirre, PAYTON)2099 (Due) LORazepam (ATIVAN) injection 1 mg (COMPLETED) 1 mg, IntraVENous, ONCE, 1 dose, On 03/03/22 at 0745 0735 (Given - Provider: Keke Reich RN) RABEprazole (ACIPHEX) tablet 20 mg 20 mg, Oral, DAILY BEFORE BREAKFAST, First dose on 03/03/22 at 0700, Until Discontinued, Please select a reason the therapeutic interchange was not accepted: Other (Please Comment), Do not crush or break. Patient to use own supply. Patient's own medication identified by wolf. 0850 (Given - Provider: Keke Reich RN) 0917 (Given - Provider: Nadja Aguirre, PAYTON) 0955 (Given - Provider: Nadja Aguirre, RN) sodium chloride flush 0.9 % injection 5-40 mL 5-40 mL, IntraVENous, EVERY 12 HOURS SCHEDULED (2 times per day), First dose on 03/02/22 at 0900, Until Discontinued, For Line Patency: Peripheral IV = 5 mL; Midline or Central Line = 10 mL/lumen. If following IV push medication, administer flush at same rate as the IV push. Flush volume is determined by type of infusion therapy being given. For non-viscous solutions use: Peripheral IV = 5 mL Midline or Central Line = 10 mL/lumen For viscous solutions (i.e. blood components, parenteral nutrition, contrast media, or after obtaining blood sample) use: Peripheral IV = 10 mL Midline or Central Line = 20 mL/lumen 0738 (Given - Provider: Keke Reich RN)2020 (Given - Provider: Bel Martin, RN) 0917 (Given - Provider: Nadja Aguirre, PAYTON)2038 (Given - Provider: Dorcas Hogan RN) 0955 (Given - Provider: Nadja Aguirre, PAYTON)2100 (Due) PRN Medication Order 03/03/2022 03/04/2022 03/05/2022 0.9 % sodium chloride infusion IntraVENous, at 5-250 mL/hr, PRN, if patient receiving piggyback infusions and maintenance fluids are not ordered OR KVO fluids to protect IV site / prevent frequent line interruptions/ long duration, Starting on 03/02/22 at 0317, For piggyback infusion, administer at same rate as piggyback for a total of 25 mL. Enter 25 mL into dose field and piggyback rate into rate field of order. If piggyback is infusing at a rate less than 100 mL/hr, enter 25 mL into dose field and 100 mL/hr into rate field of order. For KVO fluids, enter rate of 20 mL/hr or less into rate field of order. acetaminophen (TYLENOL) tablet 1,000 mg 1,000 mg, Oral, EVERY 8 HOURS PRN, Starting on Fri03/03/22 at 0914, Until Discontinued, Pain Mild (1-3), Maximum dose of acetaminophen is 4000 mg from all sources in 24 hours. 0937 (Given - Provider: Keke Reich, RN) 0916 (Given - Provider: Nadja Aguirre, PAYTON) 0410 (Given - Provider: Dorcas Hogan RN) dicyclomine (BENTYL) tablet 20 mg 20 mg, Oral, 4 TIMES DAILY PRN, Starting on Fri03/02/22 at 0317, Until Discontinued, Abdominal Cramping diphenoxylate-atropine (LOMOTIL) 2.5-0.025 MG per tablet 1 tablet 1 tablet, Oral, 4 TIMES DAILY PRN, Starting on Fri03/02/22 at 0317, Until Discontinued, Diarrhea gabapentin (NEURONTIN) capsule 100 mg (COMPLETED) 100 mg, Oral, ONCE PRN, 1 dose, Starting on Fri03/04/22 at 1119, Until Fri03/04/22 at 2359, Before MRI 1159 (Given - Provider: Nadja Aguirre RN) gadobutrol (GADAVIST) injection 15 mL 15 mL, IntraVENous, IMG ONCE PRN, 1 dose, Starting on Fri03/04/22 at 1224, Until Discontinued, Other gadobutrol (GADAVIST) injection 15 mL (COMPLETED) 15 mL, IntraVENous, IMG ONCE PRN, 1 dose, Starting on Fri03/04/22 at 1255, Until Fri03/04/22 at 1250, Other 1250 (Given - Provider: Evelyn Rodríguez) hydrALAZINE (APRESOLINE) tablet 10 mg 10 mg, Oral, EVERY 6 HOURS PRN, Starting on Fri03/05/22 at 1236, Until Discontinued, SBP >180 hydrOXYzine pamoate (VISTARIL) capsule 25 mg 25 mg, Oral, 3 TIMES DAILY PRN, Starting on Fri03/02/22 at 0320, Until Discontinued, Itching LORazepam (ATIVAN) injection 1 mg (COMPLETED) 1 mg, IntraVENous, ONCE PRN, 1 dose, Starting on 03/04/22 at 1119, Until Fri03/04/22 at 2359, Before MRI 1159 (Given - Provider: Nadja Aguirre RN) melatonin tablet 5 mg 5 mg, Oral, NIGHTLY PRN, Starting on 03/02/22 at 0317, Until Discontinued, Sleep 2017 (Given - Provider: Bel Martin, [place]) oxyCODONE (ROXICODONE) immediate release tablet 2.5 mg (CANCELED) 2.5 mg, Oral, EVERY 4 HOURS PRN, Starting on 03/03/22 at 0859, Until 03/04/22 at 1120, Pain Moderate (4-6), Pain Severe (7-10) 1506 (Given - Provider: Keke Reich, [place])2018 (Given - Provider: Bel Martin, [place]) perflutren lipid microspheres (DEFINITY) injection 1.65 mg 1.65 mg (1.5 mL), IntraVENous, IMG ONCE PRN, Starting on 03/02/22 at 0317, Until 03/05/22 at 0316, Other, Suboptimal Echo Image, Administer up to 1.65 mg via slow IVP for suboptimal echocardiogram enhancement. May administer as concentrated dose or diluted in 8.5 mL of 0.9% sodium chloride for a total volume of 10 mL. May administer as divided doses to reach optimal image enhancement. polyethylene glycol (GLYCOLAX) packet 17 g 17 g, Oral, DAILY PRN, Starting on 03/02/22 at 0317, Until Discontinued, Constipation, First line therapy for constipation promethazine (PHENERGAN) tablet 25 mg 25 mg, Oral, EVERY 6 HOURS PRN, Starting on 03/02/22 at 0336, Until Discontinued, Nausea sodium chloride flush 0.9 % injection 5-40 mL 5-40 mL, IntraVENous, PRN, Starting on 03/02/22 at 0317, Until Discontinued, Line Care, After every IV line use, For Line Patency: Peripheral IV = 5 mL; Midline or Central Line = 10 mL/lumen. If following IV push medication, administer flush at same rate as the IV push. Flush volume is determined by type of infusion therapy being given. For non-viscous solutions use: Peripheral IV = 5 mL Midline or Central Line = 10 mL/lumen For viscous solutions (i.e. blood components, parenteral nutrition, contrast media, or after obtaining blood sample) use: Peripheral IV = 10 mL Midline or Central Line = 20 mL/lumen sodium chloride flush 0.9 % injection 5-40 mL 5-40 mL, IntraVENous, PRN, Starting on 03/02/22 at 0317, Until 03/05/22 at 0316, Line Care, Per [employer]inder[employer] Machine Setter Request, May use order for Line Care after every IV line use and Agitated Saline Bubble Study. Administration for Bubble Study per safety physician request for only. Remove 1 mL 0.9% sodium chloride from 10 mL syringe for creating agitated saline. If following IV push medication, administer flush at same rate as the IV push. Flush volume is determined by type of infusion therapy being given. , For non-viscous solutions use: Peripheral IV = 5 mL Midline or Central Line = 10 mL/lumen For viscous solutions (i.e. blood components, parenteral nutrition, contrast media, or after obtaining blood sample) use: Peripheral IV = 10 mL Midline or Central Line = 20 mL/lumen Source Comments (unrecognize d section and content) In the event this informatio n is protected by the Federal Confidentiality of Alcohol and Drug Abuse Patient Records regulations: The Federal rules restrict any use of the information to criminally investigate or prosecute any alcohol or drug abuse patient.[facility] the event this information is protected by the Federal Confidentiality of Alcohol and Drug Abuse Patient Records regulations: The Federal rules restrict any use of the information to criminally investigate or prosecute any alcohol or drug abuse patient.[facility] the event this information is protected by the Federal Confidentiality of Alcohol and Drug Abuse Patient Records regulations: The Federal rules restrict any use of the information to criminally investigate or prosecute any alcohol or drug abuse patient.[facility] the event this information is protected by the Federal Confidentiality of Alcohol and Drug Abuse Patient Records regulations: The Federal rules restrict any use of the information to criminally investigate or prosecute any alcohol or drug abuse patient.[facility] Goals (unrecognized section and content) Goals may be documented in a n alternate sectionGoals may be documented in an alternate section FOR RECORDS PERTAINING TO PATIENTS WHO ARE OR HAVE BEEN ENROLLED IN A CHEMICAL DEPENDENCY/SUBSTANCEABUSE PROGRAM, SOME INFORMATION MAY BE OMITTED. This clinical summary was aggregated from multiple sources. Caution should be exercised in using it in the provision of clinical care. This summary normalizes information from multiple sources, and as a consequence, information in this document may materially change the coding, format and clinical context of patient data. In addition, data may be omitted in some cases. CLINICAL DECISIONS SHOULD BE BASED ON THE PRIMARY CLINICAL RECORDS. [facility]. provides no warranty or guarantee of the accuracy or completeness of information in this document.
[2025-02-28 09:05] LABS: AST(SGOT) 71 U/L (<=31); Alanine Aminotransfer ALT/SGPT 31 U/L (<=34); Albumin, Serum 3.4 g/dL (3.5-5.0); Alkaline Phosphatase 71 U/L (35-104); Globulin 3.6 g/dL (2.2-4.2); Protein, Total 7.1 g/dL (5.9-8.4); Total Bilirubin 0.71 mg/dL (0.00-1.30)
== END ==
LOC: OLS.ACW300 04:00
PROVIDERS: Referring Provider Family Medicine; Visit Provider Family Medicine
DX: I69.354 Hemiplegia and hemiparesis following cerebral infarction affecting left non-dominant side (principal); D62 Acute posthemorrhagic anemia; M62.81 Muscle weakness (generalized); D50.9 Iron deficiency anemia, unspecified; E66.01 Morbid (severe) obesity due to excess calories
CPT/HCPCS: 36415; 80076

== ENCOUNTER → 2025-03-02 | Outpatient (REF) | payer MEDICARE, MEDICAID, SELFPAY ==
--- OUTSIDE RECORDS SUMMARY | 2025-03-02 04:33 | XMS RPT_ITS | CCD ---
Author Organization [facility] Care Team Providers Care Cross Cut Sawyer Name Role Phone MENSHIREEN MIGUEL R Unavailable Unavailable MENSHIREEN MIGUEL R Unavailable Unavailable NO REFERRING DR Unavailable Unavailable Didier Hicks Primary Care Provider [phone] Unavailable Primary Care Provider Didier Stiles MD Primary Care Provider Didier Hicks Primary Care Provider Didier Hicks Primary Care Provider Unavailable Primary Care Provider Unavailchino OVERTON MD, [facility] Consulting Unavailable DEISY DILL, DAVID Attending Unavailable NATHAN DILL, EDMUNDO Primary Care Unavailable HOLLY DILL, JACINTO Admitting Unavailable MICHAEL DILL, RICHARD Deluna Consulting Unavailable Care Physician, No Primary Primary Care Provider Unavailable Gee Mccullough Attending Provider Unavailabl e Care Physician, No Primary Primary Care Provider Unavailable Gee Mccullough Attending Provider Unavailabl e Gee Mccullough Referring Provider Unavailabl e Gee Mccullough Attending Unavailable Care Physician, No Primary Primary Care Unava ilable Care Physician, No Primary Primary Care Unava ilable Gee Mccullough Attending Unavailable Gee Mccullough Attending Unavailable Care Physician, No Primary Primary Care Unava ilable Care Physician, No Primary Primary Care Unava ilable Gee Mccullough Attending Unavailable Gee Mccullough Attending Unavailable Care Physician, No Primary Primary Care Unava ilable Gee Mccullough Attending Unavailable Gee Mccullough Referring Unavailable Care Physician, No Primary Primary Care Unava ilable Allergies Allergy Classification Reported Allergen(s) Allergy Type Date of Onset Reaction(s) Facility (4 sources) Aluminum aspirin Drug Allergy 02-25-20 16 Other (See Comments) [place] (10 sources) Ciprofloxacin Drug Allergy 05-01-20 15 Itching [place] (4 sources) HYDROmorphone Drug Allergy 01-12-20 16 [place] (8 sources) Iodine Drug Allergy 07-25-20 11 Nausea And Vomiting, [place] (4 sources) Ivermectin Drug Allergy 01-19-20 20 Other (See Comments) [place] (10 sources) metaxalone Drug Allergy 07-25-20 11 Itching [place] (10 sources) Morphine Drug Allergy 01-12-20 16 Intolerance [place] (8 sources) Permethrin Drug Allergy 01-12-20 16 Rash [place] (8 sources[place] predniSONE Drug Allergy 06-08-20 18 Nausea And Vomiting, Itching [place] (10 sources) Propofol Drug Allergy 07-20-20 12 Shortness Of Breath, Other: See Comments [place] (4 sources) Propoxyphene Drug Allergy 07-25-20 11 [place] (8 sources[place] raNITIdine Drug Allergy 07-25-20 11 Nausea And Vomiting[place] (4 sources[place] Sulfonamides (Antibiotic) Propensity to adverse reactions to drug 07-03-20 17 [place] (4 sources) tapentadol Drug Allergy 06-01-20 12 Swelling [place] (8 sources) traMADol Drug Allergy 04-15-20 18 Other (See Comments), Other: See Comments [place] (4 sources) Tetracyclines & Related Propensity to adverse reactions to drug 02-25-20 16 [place] (3 sources) montelukast Drug Allergy 06-29-20 20 Other (See Comments) [employer] Work Phone: (3 sources) PARoxetine Drug Allergy 03-16-20 20 Other (See Comments) [employer] Work Phone: (1 source) buPROPion Drug Allergy 03-02-20 22 Other (See Comments) [facility] (4 sources) HYDROmorphone Drug Allergy 01-12-20 16 Other: See Comments [facility] (6 sources) Propoxyphene Drug Allergy 07-25-20 11 Unknown [facility] (4 sources) Salicylate product Drug Allergy 07-25-20 11 GI Upset [facility] (4 sources) tapentadol Drug Allergy 06-01-20 12 Swelling [facility] (6 sources) Tetracycline Drug Allergy 07-25-20 11 Rash [facility] (4 sources) Sulfa Dyne Drug Allergy 07-25-20 11 Unknown [facility] (5 sources) Aspirin Drug Allergy 02-25-20 16 Other: See Comments [facility] Work Phone: (5 sources) levoFLOXacin Drug Allergy 04-10-20 16 [facility] Work Phone: (3 sources) Sulfonamides (Antibiotic) Drug Intolerance 04-10-20 16 GI Upset [facility] Work Phone: (3 sources) Iodinated Contrast Media Drug Intolerance 04-10-20 16 GI Upset [facility] Work Phone: (3 sources) Ciprofloxacin; Translations: [ciprofloxacin HCl] Drug Allergy 04-16-20 16 Rash [facility] (3 sources) HYDROmorphone; Translations: [hydromorphone HCl] Drug Allergy 04-16-20 16 Low blood pressure [facility] (2 sources) Sorbitol Drug Allergy 04-19-20 16 Other [facility] Comment on above: "burning tongue" (2 sources) Sucrose Drug Allergy 04-19-20 16 Other [facility] Comment on above: "burning tongue" (2 sources) Sulfonamides (Antibiotic) Propensity to adverse reactions 04-16-20 16 Nausea [facility] (3 sources) tapentadol; Translations: [tapentadol HCl] Drug Allergy 04-16-20 16 Itching [facility] (2 sources) Triiodobenzoic Acids Propensity to adverse reactions 04-16-20 16 Nausea [facility] (3 sources) Food Allergies: Uncoded; Translations: [Food Allergies: Uncoded] Allergy to substance 08-19-20 22 Anaphylaxis [facility] Comment on above: ASPERTAME (1 source) Aspirin Drug Allergy 04-16-20 16 [facility] (1 source) Ciprofloxacin Drug Allergy 04-16-20 16 [facility] (1 source) levoFLOXacin Drug Allergy 04-16-20 16 [facility] (1 source) metaxalone Drug Allergy 04-16-20 16 [facility] (1 source) Morphine Drug Allergy 04-16-20 16 [facility] (1 source) Propofol Drug Allergy 04-16-20 16 [facility] (1 source) Propoxyphene Drug Allergy 04-16-20 16 [facility] (1 source) Sorbitol Drug Allergy 04-19-20 16 [facility] (1 source) Sucrose Drug Allergy 04-19-20 16 [facility] (1 source) Sulfonamides (Antibiotic) Drug allergy (disorder) 04-16-20 16 [facility] (1 source) Tetracycline Drug Allergy 04-16-20 16 [facility] (1 source) Iodinated Contrast Media Drug allergy (disorder) 04-16-20 16 [facility] Medications Current Medications Medication Drug Class(es) Dates Sig (Normalized) Sig (Original) acetaminophen 500 mg oral tablet (10 sources) Start: 03-03-2022 acetaminophen (TYLENOL) tablet 1,000 mg Start: 03-01-2022 End: 03-01-2022 acetaminophen (TYLENOL) tabl et 1,000 mg acetaminophen (T YLENOL ARTHRITIS ORAL) Take by mouth. 0 Active acetaminophen (T YLENOL ARTHRITIS ORAL) Take by mouth. 0 Suspended take 2 tablets by [facility] every six hours as needed for pain [...] Start: 03-06-2022 take 1 tablet by afshan th once daily amLODIPine (NORVASC) 10 MG tablet [...] MG tablet Active 500 mg PO Q8H 30 April 24, 2016 12:00am PARoxetine hydrochloride 10 [...] as needed Rabeprazole Sodium (Aciphex) 20 MG Tablet. Active 20 mg PO TWICE A DAY [...] th twice daily as needed (indigestion). capsaicin 0.31120 mg/mg / menthol 0.1 mg/mg topical gel [...] on above: Take 1 capsule by mo [facility] three times daily as needed for diarrhea. [...] Substituted for RABEprazole (ACIPHEX). polyethylene glycol 3350 83719 mg powder for oral solution (1 source) [...] 03-13-2022 Episodic Other aftercare (1 source) Other long-term (current) drug therapy; Translations: [Other ocean transportation intermediary (current) drug therapy] Onset: 5 Episodic Other [...] 02-07-2025 Anion gap [Moles/Vol] 12 mmol/L 5-15 [facility] BUN/creatinine ratioOrdered By: Gee Herrmann on 02-07-2025 Urea nitrogen/Creatinine [Mass ratio] 17.8 mg/mg 10-20 [facility] Bilirubin, totalOrdered By: Gee Herrmann on 02-07-2025 Bilirubin [Mass/Vol] 0.75 mg/dL 0.00-1.30 [facility] Calculated very low density lipoprotein (VLDL) cholesterol measurementOrdered By: Gee Herrmann on 02-07-2025 Calculated very low density lipoprotein (VLDL) cholesterol measurement 44 mg/dL High 5-40 [facility] Carbon dioxide, total [Moles /volume] in Central venous bloodOrdered By: Gee Herrmann on 02-07-2025 CO2 [Moles/Vol] 26.0 mmol/L 21.0-32.0 [facility] Chloride assayOrdered By: Carey Herrmann on 02-07-2025 Chloride [Moles/Vol] 100 mmol/L 98-108 [facility] Erythrocyte distribution wid th ratioOrdered By: Gee Herrmann on 02-07-2025 Erythrocyte distribution width (RBC) [Ratio] 17.2 % High 11.6-14.6 [facility] Erythrocyte distribution wid th standard deviationOrdered By: Gee Herrmann on 02-07-2025 Erythrocyte distribution width (RBC) [Ratio] 52.5 fl High 35.1-43.9 [facility] Glomerular filtration rate ( GFR) estimation/1.73 sq m using serum, plasma, or whole bOrdered By: Gee Herrmann on 02-07-2025 GFR/1.73 sq M.predicted among non-blacks MDRD (S/P/Bld) [Vol rate/Area] 104 mL/min/{1.73_m2} >60 [facility] Comment on above: mL/min/1.73m2 CKD-EP I Creatinine Equation (2020) Hematocrit Auto (Bld) [Volum e fraction]Ordered By: Gee Herrmann on 02-07-2025 Hematocrit (Bld) [Volume fraction] 28.1 % Low 37-47 [facility] Hemoglobin measurementOrdere d By: Gee Herrmann on 02-07-2025 Hemoglobin (Bld) [Mass/Vol] 7.9 g/dL Low 12.0-15.0 [facility] LDL calc ser/plasOrdered By: Gee Herrmann on 02-07-2025 Cholesterol in LDL [Mass/Vol] 126 mg/dL [facility] Comment on above: Blswgzwgma=510-341 m g/dL & Higher Lzoc=597 mg/dL or greater Laboratory - Chemistry and C hemistry - challengeOrdered By: Gee Herrmann on 02-07-2025 AST [Catalytic activity/Vol] 71 U/L High <32 [facility] MCV (mean corpuscular volume ) determinationOrdered By: Gee Herrmann on 02-07-2025 MCV (RBC) [Entitic vol] 83.1 fL 81-99 [facility] Mean corpuscular hemoglobin (MCH) determinationOrdered By: Gee Herrmann on 02-07-2025 MCH (RBC) [Entitic mass] 23.4 pg Low 27.0-32.0 [facility] Mean corpuscular hemoglobin concentration (MCHC) determinationOrdered By: Gee Herrmann on 02-07-2025 MCHC (RBC) [Mass/Vol] 28.1 g/dL Low 32-36 [facility] Mean platelet volume determi nationOrdered By: Gee Herrmann on 02-07-2025 Platelet mean volume (Bld) [Entitic vol] 11.0 fL 6.2-12.0 [facility] Platelet countOrdered By: Carey Herrmann on 02-07-2025 Platelets (Bld) [#/Vol] 162 10*3/uL 150-450 [facility] Potassium measurement (mass/ volume)Ordered By: Gee Herrmann on 02-07-2025 Potassium (Unsp spec) [Mass/Vol] 4.2 mmol/L 3.3-5.1 [facility] RBC Auto (Bld) [#/Vol]Ordere d By: Gee Herrmann on 02-07-2025 RBC (Bld) [#/Vol] 3.38 10*6/uL Low 4.2-5.4 [facility] Screening total cholesterol/ high density lipoprotein (HDL) cholesterol ratioOrdered By: Gee Herrmann on 02-07-2025 Cholesterol.total/Willow sterol in HDL [Mass ratio] 6.85 {ratio} [facility] Serum creatinine measurement (mass/volume)Ordered By: Gee Herrmann on 02-07-2025 Creatinine [Mass/Vol] 0.61 mg/dL Low 0.70-1.20 [facility] Serum globulin measurementOr dered By: Gee Herrmann on 02-07-2025 Globulin (S) [Mass/Vol] 3.7 g/dL 2.2-4.2 [facility] Serum glucose measurement (m ass/volume)Ordered By: Gee Herrmann on 02-07-2025 Glucose [Mass/Vol] 234 mg/dL High 70-99 [facility] Serum or plasma alanine troy otransferase (ALT) measurementOrdered By: Gee Herrmann on 02-07-2025 ALT [Catalytic activity/Vol] 36 U/L High <35 [facility] Serum or plasma albumin jae urement (mass/volume)Ordered By: Gee Herrmann on 02-07-2025 Albumin [Mass/Vol] 3.6 g/dL 3.5-5.0 [facility] Serum or plasma albumin/glob ulin mass ratioOrdered By: Gee Herrmann on 02-07-2025 Albumin/Globulin [Mass ratio] 1.0 {ratio} 0.9-2.4 [facility] Serum or plasma alkaline jalyn sphatase measurementOrdered By: Gee Herrmann on 02-07-2025 ALP [Catalytic activity/Vol] 86 U/L 35-104 [facility] Serum or plasma calcium jae urement (mass/volume)Ordered By: Gee Herrmann on 02-07-2025 Calcium [Mass/Vol] 9.1 mg/dL 7.6-11.0 [facility] Serum or plasma cholesterol in HDL measurement (mass/volume)Ordered By: Gee Herrmann on 02-07-2025 Cholesterol in HDL [Mass/Vol] 29 mg/dL Low >40 [facility] Comment on above: National Cholesterol Education Program (NCEP) guidelines:<40 mg/dL: Low HDL-cholesterol (major risk factor for CHD)>= 60 mg/dL: High HDL-cholesterol (negative risk factor for CHD)HDL-cholesterol is affected by a number of factors, e.g. smoking, exercise, hormones, sex and age. Serum or plasma cholesterol measurement (mass/volume)Ordered By: Gee Herrmann on 02-07-2025 Cholesterol [Mass/Vol] 200 mg/dL <201 [facility] Comment on above: Cholesterol level, D esirable <200 mg/dLBorderline high cholesterol 200-239 mg/dLHigh cholesterol >=240 mg/dLRecommendations of the NCEP Adult Treatment Panel for the following risk-cutoff thresholds for the [place] population. Serum or plasma urea nitroge n measurement (mass/volume)Ordered By: Gee Herrmann on 02-07-2025 Urea nitrogen [Mass/Vol] 11 mg/dL 4-19 [facility] Sodium levelOrdered By: Gera Herrmann on 02-07-2025 Sodium [Moles/Vol] 137 mmol/L 133-145 [facility] Total proteinOrdered By: Yair Herrmann on 02-07-2025 Protein [Mass/Vol] 7.3 g/dL 5.9-8.4 [facility] Triglycerides measurementOrd ered By: Gee Herrmann on 02-07-2025 Triglyceride [Mass/Vol] 222 mg/dL High <199 [facility] Comment on above: The drugs N-Acetylcy steine and Metamizole may falsely depress this assay. Normal range: <150 mg/dLBorderline High: 150-199 mg/dLHigh: 200-499 mg/dLVery High: >500 mg/dL White blood cell (WBC) count Ordered By: Gee Herrmann on 02-07-2025 WBC (Bld) [#/Vol] 4.4 10*3/uL 4.4-11.0 [facility] Anion gap in Serum or Plasma Ordered By: Gee Herrmann on 12-07-2024 Anion gap [Moles/Vol] 12 mmol/L 5-15 [facility] BUN/creatinine ratioOrdered By: Gee Herrmnan on 12-07-2024 Urea nitrogen/Creatinine [Mass ratio] 15.4 mg/mg 10-20 [facility] Bilirubin directOrdered By: Gee Herrmann on 12-07-2024 Bilirubin.direct [Mass/Vol] 0.33 mg/dL High 0.00-0.30 [facility] Bilirubin, totalOrdered By: Gee Herrmann on 12-07-2024 Bilirubin [Mass/Vol] 0.85 mg/dL 0.00-1.30 [facility] Carbon dioxide, total [Moles /volume] in Central venous bloodOrdered By: Gee Herrmann on 12-07-2024 CO2 [Moles/Vol] 24.6 mmol/L 21.0-32.0 [facility] Chloride assayOrdered By: Carey Herrmann on 12-07-2024 Chloride [Moles/Vol] 103 mmol/L 98-108 [facility] Erythrocyte distribution wid th (RBC) [Ratio]Ordered By: Gee Herrmann on 12-07-2024 Erythrocyte distribution width (RBC) [Entitic vol] 46.6 fL High 35.1-43.9 [facility] Erythrocyte distribution wid th ratioOrdered By: Gee Herrmann on 12-07-2024 Erythrocyte distribution width (RBC) [Ratio] 14.6 % 11.6-14.6 [facility] Erythrocyte distribution wid th standard deviationOrdered By: Gee Herrmann on 12-07-2024 Erythrocyte distribution width (RBC) [Ratio] 46.6 fl High 35.1-43.9 [facility] GFR/1.73 sq M.predicted ed g non-blacks MDRD (S/P/Bld) [Vol rate/Area]Ordered By: Gee Herrmann on 12-07-2024 Estimated GFR (MDRD) Non-Af Amer 109 >60 [facility] Comment on above: mL/min/1.73m2 CKD-EP I Creatinine Equation (2020) Glomerular filtration rate ( GFR) estimation/1.73 sq m using serum, plasma, or whole bOrdered By: Gee Herrmann on 12-07-2024 GFR/1.73 sq M.predicted among non-blacks MDRD (S/P/Bld) [Vol rate/Area] 109 mL/min/{1.73_m2} >60 [facility] Comment on above: mL/min/1.73m2 CKD-EP I Creatinine Equation (2020) Hematocrit Auto (Bld) [Volum e fraction]Ordered By: Gee Herrmann on 12-07-2024 Hematocrit (Bld) [Volume fraction] 31.5 % Low 37-47 [facility] Hemoglobin measurementOrdere d By: Gee Herrmann on 12-07-2024 Hemoglobin (Bld) [Mass/Vol] 9.7 g/dL Low 12.0-15.0 [facility] Laboratory - Chemistry and C hemistry - challengeOrdered By: Gee Herrmann on 12-07-2024 AST [Catalytic activity/Vol] 61 U/L High <32 [facility] MCV (mean corpuscular volume ) determinationOrdered By: Gee Herrmann on 12-07-2024 MCV (RBC) [Entitic vol] 88.7 fL 81-99 [facility] Mean corpuscular hemoglobin (MCH) determinationOrdered By: Gee Herrmann on 12-07-2024 MCH (RBC) [Entitic mass] 27.3 pg 27.0-32.0 [facility] Mean corpuscular hemoglobin concentration (MCHC) determinationOrdered By: Gee Herrmann on 12-07-2024 MCHC (RBC) [Mass/Vol] 30.8 g/dL Low 32-36 [facility] Mean platelet volume determi nationOrdered By: Gee Herrmann on 12-07-2024 Platelet mean volume (Bld) [Entitic vol] 10.0 fL 6.2-12.0 [facility] Platelet countOrdered By: Carey Herrmann on 12-07-2024 Platelets (Bld) [#/Vol] 146 10*3/uL Low 150-450 [facility] Potassium (Unsp spec) [Mass/ Vol]Ordered By: Gee Herrmann on 12-07-2024 Potassium [Moles/Vol] 3.9 mmol/L 3.3-5.1 [facility] Potassium measurement (mass/ volume)Ordered By: Gee Herrmann on 12-07-2024 Potassium (Unsp spec) [Mass/Vol] 3.9 mmol/L 3.3-5.1 [facility] RBC Auto (Bld) [#/Vol]Ordere d By: Gee Herrmann on 12-07-2024 RBC (Bld) [#/Vol] 3.55 10*6/uL Low 4.2-5.4 [facility] Serum creatinine measurement (mass/volume)Ordered By: Gee Herrmann on 12-07-2024 Creatinine [Mass/Vol] 0.50 mg/dL Low 0.70-1.20 [facility] Serum globulin measurementOr dered By: Gee Herrmann on 12-07-2024 Globulin (S) [Mass/Vol] 3.9 g/dL 2.2-4.2 [facility] Serum glucose measurement (m ass/volume)Ordered By: Gee Herrmann on 12-07-2024 Glucose [Mass/Vol] 135 mg/dL High 70-99 [facility] Serum or plasma alanine troy otransferase (ALT) measurementOrdered By: Gee Herrmann on 12-07-2024 ALT [Catalytic activity/Vol] 25 U/L <35 [facility] Serum or plasma albumin aje urement (mass/volume)Ordered By: Gee Herrmann on 12-07-2024 Albumin [Mass/Vol] 3.6 g/dL 3.5-5.0 [facility] Serum or plasma albumin/glob ulin mass ratioOrdered By: Gee Herrmann on 12-07-2024 Albumin/Globulin [Mass ratio] 0.9 {ratio} 0.9-2.4 [facility] Serum or plasma alkaline jalyn sphatase measurementOrdered By: Gee Herrmann on 12-07-2024 ALP [Catalytic activity/Vol] 90 U/L 35-104 [facility] Serum or plasma calcium jae urement (mass/volume)Ordered By: Gee Herrmann on 12-07-2024 Calcium [Mass/Vol] 9.3 mg/dL 7.6-11.0 [facility] Serum or plasma urea nitroge n measurement (mass/volume)Ordered By: Gee Herrmann on 12-07-2024 Urea nitrogen [Mass/Vol] 8 mg/dL 4-19 [facility] Sodium levelOrdered By: Gera Herrmann on 12-07-2024 Sodium [Moles/Vol] 139 mmol/L 133-145 [facility] Total proteinOrdered By: Yair Herrmann on 12-07-2024 Protein [Mass/Vol] 7.6 g/dL 5.9-8.4 [facility] White blood cell (WBC) count Ordered By: Gee Herrmann on 12-07-2024 WBC (Bld) [#/Vol] 3.0 10*3/uL Low 4.4-11.0 [facility] Erythrocyte distribution wid th (RBC) [Ratio]Ordered By: Gee Herrmann on 10-27-2024 Erythrocyte distribution width (RBC) [Entitic vol] 61.1 fL High 35.1-43.9 [facility] Erythrocyte distribution wid th ratioOrdered By: Gee Herrmann on 10-27-2024 Erythrocyte distribution width (RBC) [Ratio] 17.6 % High 11.6-14.6 [facility] Erythrocyte distribution wid th standard deviationOrdered By: Gee Herrmann on 10-27-2024 Erythrocyte distribution width (RBC) [Ratio] 61.1 fl High 35.1-43.9 [facility] Hematocrit Auto (Bld) [Volum e fraction]Ordered By: Gee Herrmann on 10-27-2024 Hematocrit (Bld) [Volume fraction] 35.7 % Low 37-47 [facility] Hemoglobin measurementOrdere d By: Gee Herrmann on 10-27-2024 Hemoglobin (Bld) [Mass/Vol] 10.6 g/dL Low 12.0-15.0 [facility] Iron (Unsp spec) [Mass/Mass] Ordered By: Gee Herrmann on 10-27-2024 Iron [Mass/Vol] 32 ug/dL Low 50-170 [facility] Iron measurement (mass/mass) Ordered By: Gee Herrmann on 10-27-2024 Iron (Unsp spec) [Mass/Mass] 32 ug/dL Low 50-170 [facility] MCV (mean corpuscular volume ) determinationOrdered By: Gee Herrmann on 10-27-2024 MCV (RBC) [Entitic vol] 94.4 fL 81-99 [facility] Mean corpuscular hemoglobin (MCH) determinationOrdered By: Gee Herrmann on 10-27-2024 MCH (RBC) [Entitic mass] 28.0 pg 27.0-32.0 [facility] Mean corpuscular hemoglobin concentration (MCHC) determinationOrdered By: Gee Herrmann on 10-27-2024 MCHC (RBC) [Mass/Vol] 29.7 g/dL Low 32-36 [facility] Mean platelet volume determi nationOrdered By: Gee Herrmann on 10-27-2024 Platelet mean volume (Bld) [Entitic vol] 10.2 fL 6.2-12.0 [facility] Platelet countOrdered By: Carey Herrmann on 10-27-2024 Platelets (Bld) [#/Vol] 143 10*3/uL Low 150-450 [facility] RBC Auto (Bld) [#/Vol]Ordere d By: Gee Herrmann on 10-27-2024 RBC (Bld) [#/Vol] 3.78 10*6/uL Low 4.2-5.4 [facility] TIBCOrdered By: Gee deluna on 10-27-2024 Total Iron Binding Capacity 240 ug/dL Low 250-450 [facility] White blood cell (WBC) count Ordered By: Gee Herrmann on 10-27-2024 WBC (Bld) [#/Vol] 3.5 10*3/uL Low 4.4-11.0 [facility] Erythrocyte distribution wid th (RBC) [Ratio]Ordered By: Gee Herrmann on 10-04-2024 Erythrocyte distribution width (RBC) [Entitic vol] 78.3 fL High 35.1-43.9 [facility] Erythrocyte distribution wid th ratioOrdered By: Gee Herrmann on 10-04-2024 Erythrocyte distribution width (RBC) [Ratio] 23.0 % High 11.6-14.6 [facility] Hematocrit Auto (Bld) [Volum e fraction]Ordered By: Gee Herrmann on 10-04-2024 Hematocrit (Bld) [Volume fraction] 36.0 % Low 37-47 [facility] Hemoglobin measurementOrdere d By: Gee Herrmann on 10-04-2024 Hemoglobin (Bld) [Mass/Vol] 10.5 g/dL Low 12.0-15.0 [facility] MCV (mean corpuscular volume ) determinationOrdered By: Gee Herrmann on 10-04-2024 MCV (RBC) [Entitic vol] 94.2 fL 81-99 [facility] Mean corpuscular hemoglobin (MCH) determinationOrdered By: Gee Herrmann on 10-04-2024 MCH (RBC) [Entitic mass] 27.5 pg 27.0-32.0 [facility] Mean corpuscular hemoglobin concentration (MCHC) determinationOrdered By: Gee Herrmann on 10-04-2024 MCHC (RBC) [Mass/Vol] 29.2 g/dL Low 32-36 [facility] Mean platelet volume determi nationOrdered By: Gee Herrmann on 10-04-2024 Platelet mean volume (Bld) [Entitic vol] 10.7 fL 6.2-12.0 [facility] Platelet countOrdered By: Carey Herrmann on 10-04-2024 Platelet Count See comment 150-450 [facility] Comment on above: Please note: For thi [...] RBC (Bld) [#/Vol] 3.82 10*6/uL Low 4.2-5.4 [facility] White blood cell (WBC) count Ordered By: Gee Herrmann on 10-04-2024 WBC (Bld) [#/Vol] 4.0 10*3/uL Low 4.4-11.0 [facility] C BLOODon 09-20-2024 C BLOOD [facility] [address] [place] [id number] [phone] Name: BRADLEY MATOS : 1965 Admitting JACINTO BARRERA MD Provider: Gender Female Financial [id number] : Number: Paul LiuOU; [id number]; [id number] n: Admit 09/03/2024 Date: Discharge [...] MATOS Print 09/20/2024 00:00 EST Date/Time: Normal [facility] Comment on above: Performed By: #### 1 [id number] ####[facility] Laboratory [address] [place] [address] Medical Director: Albert Arana MD C BLOOD [facility] pt of Laboratory Services [address] [place] [address] Name: BRADLEY MATOS : 1965 Admitting JACINTO BARRERA MD Provider: Gender Female Financial [id number] : Number: Paul 1DOU; [id number]; 02 n: Admit 09/03/2024 Date: [...] MATOS Print 09/20/2024 00:00 EST Date/Time: Normal [facility] Comment on above: Performed By: #### 1 [id number] #### [facility] Laboratory Services [address] [place] [address] Side Gluer: Albert Arana MD [id number] DOrdered By: Rancho Herrmann on 09-17-2024 Vitamin D 25-Hydroxy 88.1 ng/mL [facility] Comment on above: Vitamin D 25(OH) Sta tus Range Deficiency <20 ng/mL (50nmol/L) Insufficiency 20 - 30 ng/mL (50 - 75 nmol/L) Sufficiency 30 - 100 ng/mL (75 - 250 nmol/L) Toxicity >100 ng/mL (>250 nmol/L) Albumin to globulin ratioOrd ered By: Gee Herrmann on 09-17-2024 Albumin/Globulin [Mass ratio] 0.5 {ratio} Low 0.9-2.4 [facility] Bilirubin, totalOrdered By: Gee Herrmann on 09-17-2024 Bilirubin [Mass/Vol] 0.90 mg/dL 0.20-1.00 [facility] Comment on above: For patients on eltr ombopag therapy, use of Dimension Roberta TBIL is not recommended. Blood urea nitrogen (BUN)/cr eatinine ratioOrdered By: Gee Herrmann on 09-17-2024 Urea nitrogen/Creatinine [Mass ratio] 13.7 mg/mg 10-20 [facility] Carbon dioxide measurementOr dered By: Gee Herrmann on 09-17-2024 CO2 [Moles/Vol] 32.0 mmol/L 21.0-32.0 [facility] Chloride measurementOrdered By: Gee Herrmann on 09-17-2024 Chloride [Moles/Vol] 102 mmol/L 98-107 [facility] Erythrocyte distribution wid th (RBC) [Ratio]Ordered By: Gee Herrmann on 09-17-2024 Erythrocyte distribution width (RBC) [Entitic vol] 94.2 fL High 35.1-43.9 [facility] Erythrocyte distribution wid th ratioOrdered By: Gee Herrmann on 09-17-2024 Erythrocyte distribution width (RBC) [Ratio] 28.2 % High 11.6-14.6 [facility] Estimated glomerular filtrat ion rate (GFR) AmericanOrdered By: Gee Herrmann on 09-17-2024 Estimated GFR (MDRD) Amer 137 mL/min >60 [facility] Comment on above: GFR Calc Glomerular filtration rate ( GFR) estimationOrdered By: Gee Herrmann on 09-17-2024 Estimated GFR (MDRD) Non-Af Amer 113 mL/min >60 [facility] Comment on above: Non- GFR Calc Glucose measurementOrdered B y: Gee Herrmann on 09-17-2024 Glucose [Mass/Vol] 123 mg/dL High 74-106 [facility] Comment on above: Fasting Glucose resu lt from 100 to 125 mg/dL suggests IMPAIRED HOMEOSTASIS per A.D.A. criteria. Hematocrit Auto (Bld) [Volum e fraction]Ordered By: Gee Herrmann on 09-17-2024 Hematocrit (Bld) [Volume fraction] 31.7 % Low 37-47 [facility] Hemoglobin A1c percentageOrd ered By: Gee Herrmann on 09-17-2024 HbA1c (Bld) [Mass fraction] 5.5 % 3.8-5.6 [facility] Comment on above: Normal < 5.7 % Predi abetic 5.7 - 6.4 % Diabetic >or= 6.5 % Please note range changes. Hemoglobin measurementOrdere d By: Gee Herrmann on 09-17-2024 Hemoglobin (Bld) [Mass/Vol] 8.8 g/dL Low 12.0-15.0 [facility] High density lipoprotein (HD L) measurementOrdered By: Gee Herrmann on 09-17-2024 Cholesterol in HDL [Mass/Vol] 25 mg/dL Low >40 [facility] Comment on above: The drugs N-Acetylcy steine and Metamizole may falsely depress this assay. Reference Range HDL <40 mg/dL Low HDL Cholesterol HDL >or= 60 mg/dL High HDL Cholesterol Laboratory - Chemistry and C hemistry - challengeOrdered By: Gee Herrmann on 09-17-2024 AST [Catalytic activity/Vol] 45 U/L High 15-37 [facility] Low density lipoprotein (LDL ) cholesterol measurementOrdered By: Gee Herrmann on 09-17-2024 Cholesterol in LDL [Mass/Vol] 54 mg/dL 0-130 [facility] MCV (mean corpuscular volume ) determinationOrdered By: Gee Herrmann on 09-17-2024 MCV (RBC) [Entitic vol] 93.5 fL 81-99 [facility] Magnesium measurementOrdered By: Gee Herrmann on 09-17-2024 Magnesium [Mass/Vol] 2.0 mg/dL 1.6-2.6 [facility] Manual differential comment Kt (Bld) [Interp]Ordered By: Gee Herrmann on 09-17-2024 Differential Comment See comment [facility] Comment on above: PLATELET ESTIMATE: M KAILA DECREASEDANISCYTOSIS 1+ Mean corpuscular hemoglobin (MCH) determinationOrdered By: Gee Herrmann on 09-17-2024 MCH (RBC) [Entitic mass] 26.0 pg Low 27.0-32.0 [facility] Mean corpuscular hemoglobin concentration (MCHC) determinationOrdered By: Gee Herrmann on 09-17-2024 MCHC (RBC) [Mass/Vol] 27.8 g/dL Low 32-36 [facility] Platelet countOrdered By: Carey Herrmann on 09-17-2024 Platelet Count See comment 150-450 [facility] Comment on above: Please note: For thi s sample, a platelet estimate is provided rather than a platelet count due to platelet clumping. Other parameters associated with this sample are not affected by platelet clumping. If a more accurate platelet count is required, a redraw of the patient will be necessary. Potassium measurementOrdered By: Gee Herrmann on 09-17-2024 Potassium [Moles/Vol] 3.6 mmol/L 3.5-5.1 [facility] RBC Auto (Bld) [#/Vol]Ordere d By: Gee Herrmann on 09-17-2024 RBC (Bld) [#/Vol] 3.39 10*6/uL Low 4.2-5.4 [facility] Serum anion gap measurementO rdered By: Gee Herrmann on 09-17-2024 Anion gap [Moles/Vol] 3 mmol/L Low 5-15 [facility] Serum globulin measurementOr dered By: Gee Herrmann on 09-17-2024 Globulin (S) [Mass/Vol] 4.4 g/dL High 2.2-4.2 [facility] Serum or plasma alanine troy otransferase (ALT) measurementOrdered By: Gee Herrmann on 09-17-2024 ALT [Catalytic activity/Vol] 16 U/L 13-56 [facility] Serum or plasma albumin jae urement (mass/volume)Ordered By: Gee Herrmann on 09-17-2024 Albumin [Mass/Vol] 2.3 g/dL Low 3.2-5.0 [facility] Serum or plasma alkaline jalyn sphatase measurementOrdered By: Gee Herrmann on 09-17-2024 ALP [Catalytic activity/Vol] 87 U/L 45-117 [facility] Serum or plasma calcium jae urement (mass/volume)Ordered By: Gee Herrmann on 09-17-2024 Calcium [Mass/Vol] 8.3 mg/dL Low 8.5-10.1 [facility] Serum or plasma cholesterol measurement (mass/volume)Ordered By: Gee Herrmann on 09-17-2024 Cholesterol [Mass/Vol] 113 mg/dL <200 [facility] Comment on above: <200 mg/dL Desirable 200-240 mg/dL Borderline >240 mg/dL High Risk Serum or plasma creatinine m easurement (mass/volume)Ordered By: Gee Herrmann on 09-17-2024 Creatinine [Mass/Vol] 0.58 mg/dL 0.55-1.02 [facility] Comment on above: The validity of the calculated GFR & GFRAA in patients over 70 years has not been determined. Clinical correlation is essential. Serum or plasma urea nitroge n measurement (mass/volume)Ordered By: Gee Herrmann on 09-17-2024 Urea nitrogen [Mass/Vol] 8 mg/dL 7-18 [facility] Sodium levelOrdered By: Gera Herrmann on 09-17-2024 Sodium [Moles/Vol] 138 mmol/L 136-145 [facility] TSH QnOrdered By: Gee malhotra on 09-17-2024 Thyroid Stimulating Hormone (TSH) 2.510 uIU/mL 0.358-3.740 [facility] Total proteinOrdered By: Yair Herrmann on 09-17-2024 Protein [Mass/Vol] 6.7 g/dL 6.4-8.2 [facility] Triglycerides measurementOrd ered By: Gee Herrmann on 09-17-2024 Triglyceride [Mass/Vol] 170 mg/dL <199 [facility] Comment on above: The drugs N-Acetylcy steine and Metamizole may falsely depress this assay.Serum Triglycerides Reference Interval Normal <150 mg/dL Borderline high 150 - 199 mg/dL High 200 - 499 mg/dL Very High > or = 500 mg/dL Very low density lipoprotein (VLDL) cholesterol measurementOrdered By: Gee Herrmann on 09-17-2024 VLDL Cholesterol 34 mg/dL 5-40 [facility] White blood cell (WBC) count Ordered By: Gee Herrmann on 09-17-2024 WBC (Bld) [#/Vol] 4.1 10*3/uL Low 4.4-11.0 [facility] C URINEon 09-16-2024 C URINE [facility] pt of Laboratory Services [address] [place] [phone] Name: BRADLEY MATOS : 1965 Admitting JACINTO BARRERA MD Provider: Gender Female Financial [id number] : Number: Locatio 1DOU; [id number]; 02 n: [...] MATOS Print 09/16/2024 08:31 EST Date/Time: Normal [facility] Comment on above: Performed By: #### 1 [id number] #### [facility] Laboratory Services [address] [place] [address] Side Gluer: Albert Arana MD ACETAMINOPHEN 500 MG TABon [...] Hale RN - 09/15/2024 11:40 EST Normal [facility] Comment on above: Order Comment: ---At home, patient was taking medication with the following details:Special Instructions: not to exceed 3000 mg/day--- AUTO DIFFon 09-15-2024 Baso Count 0.04 x1000 Normal 0.00-0.20 [facility] Comment on above: Performed By: #### 1 [id number] #### [facility] Laboratory Services [address] [place] [address] Side Gluer: Albert Arana MD Basos % 1.1 % Normal [facility] Comment on above: Performed By: #### 1 [id number] #### [facility] [address] [place] [address] Side Gluer: Albert Arana MD Eos Count 0.00 x1000 Normal 0.00-0.50 [facility] Comment on above: Performed By: #### 1 [id number] #### [facility] Services [address] [place] [address] Side Gluer: Albert Arana MD Eosinophils/100 WBC (Bld) 0.1 % Normal [facility] Comment on above: Performed By: #### 1 [id number] #### [facility] [address] [place] [address] Side Gluer: Albert Arana MD Lymph Count 0.95 x1000 Low 1.20-4.80 [facility] Comment on above: Performed By: #### 1 [id number] #### [facility] [address] [place] [address] Side Gluer: Albert Arana MD Lymphocytes/100 WBC (Bld) 25.1 % Normal [facility] Comment on above: Performed By: #### 1 [id number] #### [facility] Laboratory Services [address] [place] [address] Side Gluer: Albert Arana MD [place] Count 0.40 x1000 Normal 0.10-1.00 [facility] Comment on above: Performed By: #### 1 [id number] #### [facility] Laboratory Services [address] [place] [address] Side Gluer: Albert Arana MD Monocytes/100 WBC (Bld) 10.6 % Normal [facility] Comment on above: Performed By: #### 1 [id number] #### [facility] Laboratory Services [address] [place] [address] Side Gluer: Albert Arana MD Neutrophil Count (ANC) 2.39 x1000 Normal 1.40-8.80 [facility] Comment on above: Performed By: #### 1 [id number] #### [facility] Laboratory Services [address] [place] [address] Side Gluer: Albert Arana MD Neutrophils/100 WBC (Bld) 63.1 % Normal [facility] Comment on above: Performed By: #### 1 [id number] #### [facility] Laboratory Services [address] [place] [address] Side Gluer: Albert Arana MD Red Blood Cell Morphology See Notes Abnormal [facility] Comment on above: Result Comment: Anis ocytosis 3+ Poikilocytosis 1+ Ovalocytes 1+ Polychromasia present Performed By: #### 1 [id number] #### [facility] Laboratory Services [address] [place] [address] Side Gluer: Albert Arana MD Scan Differential Diff Scd Normal [facility] Comment on above: Result Comment: Slid e reviewed by technologist. Performed By: #### 1 [id number] #### [facility] Laboratory Services [address] [place] [address] Side Gluer: Albert Arana MD BASICMETAon 09-15-2024 Calcium [Mass/Vol] 8.4 mg/dL Low 8.7-10.4 [facility] Comment on above: Performed By: #### 1 [id number] #### [facility] Laboratory Services [address] [place] [address] Side Gluer: Albert Arana MD Chloride [Moles/Vol] 104 mmol/L Normal 98-107 [facility] Comment on above: Performed By: #### 1 [id number] #### [facility] Laboratory Services [address] [place] [address] Side Gluer: Albert Arana MD CO2 [Moles/Vol] 31.0 mmol/L Normal 20.0-31.0 [facility] Comment on above: Performed By: #### 1 [id number] #### [facility] Laboratory Services [address] [place] [address] Side Gluer: Albert Arana MD Creatinine [Mass/Vol] 0.6 mg/dL Normal 0.5-0.8 [facility] Comment on above: Performed By: #### 1 [id number] #### [facility] Laboratory Services [address] [place] [address] Side Gluer: Albert Arana MD GFR AA >60 Normal [facility] Comment on above: Result Comment: Afri can Swiss GFR Calc Medical judgement is necessary to [...] for drug dosing. Performed By: #### 1 [id number] #### [facility] Laboratory Services [address] [place] [address] Side Gluer: Albert Arana MD Glomerular Filtration Rate >60 Normal [facility] Comment on above: Result Comment: Non- [...] for drug dosing. Performed By: #### 1 [id number] #### [facility] Laboratory Services [address] [place] [address] Side Gluer: Albert Arana MD Glucose [Mass/Vol] 111 mg/dL High 74-106 [facility] Comment on above: Performed By: #### 1 [id number] #### [facility] Laboratory Services [address] [place] [address] Side Gluer: Albert Arana MD Osmolality [Osmolality] 275 mosm/kg Normal 275-295 [facility] Comment on above: Performed By: #### 1 [id number] #### [facility] Laboratory Services [address] [place] [address] Side Gluer: Albert Arana MD Potassium [Moles/Vol] 3.7 mmol/L Normal 3.5-5.1 [facility] Comment on above: Performed By: #### 1 [id number] #### [facility] Laboratory Services [address] [place] [address] Side Gluer: Albert Arana MD Sodium [Moles/Vol] 138 mmol/L Normal 135-145 [facility] Comment on above: Performed By: #### 1 67135 #### [facility] Laboratory Services [address] [place] [address] Side Gluer: Albert Arana MD Urea nitrogen [Mass/Vol] 10 mg/dL Normal 9-23 [facility] Comment on above: Result Comment: - Ve nipuncture should occur prior to N-Acetyl Cysteine (NAC) or Metamizole (Sulpyrine) administration due to the potential for falsely depressed results. - Blood samples from some patients with monoclonal gammopathies may produce falsely elevated results Performed By: #### 1 [id number] #### [facility] Laboratory Services [address] [place], [place] [id number] Side Gluer: Albert Arana MD Urea nitrogen/Creatinine [Mass ratio] 16.7 mg/mg Normal [facility] Comment on above: Performed By: #### 1 [id number] #### [facility] Laboratory Services [address] [place] [address] Side Gluer: Albert Arana MD Discharge Med Summary - Phar chip - [facility] 09-15-2024 Discharge Med Summary - Pharmacy - Text Discharge Medication Summary - Pharmacy Entered On: 09/10/2024 13:37 EST Performed On: 09/10/2024 13:34 EST by Christian Santana RPh Discharge Medication Summary - Pharmacy Therapy Type : Discharge Medication Review Preferred Pharmacy : Patient Preferred Pharmacy: Name: [id number] Address: [address] [place] [address]: [place]: [place] Zip: [id number] Phone: [phone] Fax: [phone] Prescriber Response : Accepted Discharge Disposition : [...] last reviewed. 09/10 mds- patient presented to [facility] [place] with low hgb/anemia/right sided ab pain. patient okay to be discharged to [facility] per pharmacy perspective. Ariana Goldstein RPh - 09/15/2024 9:57 EST Discharge Medication List : Home Medications (19) Active acetaminophen 500 mg oral tablet 1,000 mg = 2 tabs, PRN, ORAL, DAILY acetaminophen-oxycodone 325 mg-5 mg oral tablet = Percocet 1 tabs, PRN, ORAL, [id number] Artificial Tears ophthalmic solution 2 drops, PRN, Both Eyes, [id number] atorvastatin 40 mg oral tablet 40 mg [...] 20 mg = 2 caps, PRN, ORAL, [id number] Eliquis 2.5 mg oral tablet 2.5 mg = 1 tabs, ORAL, BID hydrOXYzine hydrochloride 25 mg oral tablet 25 mg = 1 tabs, ORAL, BID methocarbamol 750 mg oral tablet 750 mg = 1 tabs, PRN, ORAL, [id number] Milk of Magnesia Conc 10ml =30ml MOM 2.4 g = 10 mL, PRN, ORAL, DAILY MiraLax 17 g, PRN, ORAL, DAILY Plavix 75 mg oral tablet 75 mg = 1 tabs, ORAL, DAILY promethazine 25 mg oral tablet 25 mg = 1 tabs, PRN, ORAL, [id number] Protonix 40 mg oral delayed release tablet 40 mg = 1 tabs, ORAL, BID RABEprazole 20 mg oral delayed release tablet 20 mg = 1 tabs, PRN, ORAL, DAILY Senna S 50 mg-8.6 mg oral tablet 1 tabs, PRN, ORAL, [id number] New Discharge Meds : Medication : RABEprazole- 20 mg 1 tabs, ORAL, DAILY, PRN, Date: 09/04/2024 10:03:00 EST, Tablet EC acetaminophen- 1,000 mg 2 tabs, ORAL, DAILY, PRN, not to exceed 3000 mg/day, Date: 09/04/2024 10:09:00 EST acetaminophen-oxycodone - 1 tabs, ORAL, [id number], PRN PRN Moderate Pain, Refill(s) 0, Date: [...] EST dicyclomine- 20 mg 2 caps, ORAL, [id number], PRN, Date: 09/04/2024 09:39:00 EST docusate-senna- 1 tabs, ORAL, [id number], PRN PRN Constipation, Refill(s) 0, Date: 09/04/2024 10:06:00 EST hydrOXYzine- 25 mg 1 tabs, ORAL, BID, Date: 09/04/2024 09:43:00 EST magnesium hydroxide- 10 mL, ORAL, DAILY, PRN PRN Constipation, Refill(s) 0, Date: 09/04/2024 09:54:00 EST methocarbamol- 750 mg 1 tabs, ORAL, [id number], PRN, Date: 09/04/2024 09:52:00 EST ocular lubricant- 2 drops, Both Eyes, [id number], PRN PRN Itching, Refill(s) 0, Date: 09/04/2024 09:33:00 EST pantoprazole- 40 mg 1 tabs, ORAL, BID, 60 tabs, Date: 09/09/2024 09:51:00 EST, Tablet CR polyethylene glycol 3350- 17 g, ORAL, DAILY, PRN, dissolve in water before taking, Date: 09/04/2024 09:55:00 EST, Powder promethazine = Phenergan- 25 mg 1 tabs, ORAL, [id number], PRN, Date: 09/04/2024 10:02:00 EST Smaldino RPChristian dumont - 09/10/2024 13:34 EST Normal [facility] HEMOon 09-15-2024 DIFF? No Normal [facility] Comment on above: Performed By: #### 1 [id number] #### [facility] Laboratory Services [address] [place] [address] Side Gluer: Albert Arana MD Nucleated RBC 0 /100WBC Normal [facility] Comment on above: Performed By: #### 1 [id number] #### [facility] Laboratory Services [address] [place], [place] [address] Side Gluer: Albert Arana MD Dx Actions See Notes Abnormal [facility] Comment on above: Result Comment: Scan for RBC Morphology Scan Slide. Perform manual diff if needed. SNV Performed By: #### 1 [id number] #### [facility] Laboratory Services [address] [place] [address] Side Gluer: Albert Arana MD Erythrocyte distribution width (RBC) [Ratio] 31.8 % High 11.5-14.5 [facility] Comment on above: Performed By: #### 1 [id number] #### [facility] Laboratory Services [address] [place] [address] Side Gluer: Albert Arana MD Hematocrit (Bld) [Volume fraction] 30.6 % Low 36.0-46.0 [facility] Comment on above: Performed By: #### 1 [id number] #### [facility] Laboratory Services [address] [place] [address] Side Gluer: Albert Arana MD Hemoglobin (Bld) [Mass/Vol] 9.5 g/dL Low 12.0-16.0 [facility] Comment on above: Performed By: #### 1 [id number] #### [facility] Laboratory Services [address] [place] [address] Side Gluer: Albert Arana MD Instr WBC 3.8 Normal [facility] Comment on above: Performed By: #### 1 [id number] #### [facility] Laboratory Services [address] [place] [address] Side Gluer: Albert Arana MD MCH (RBC) [Entitic mass] 26.7 pg Low 27.0-34.0 [facility] Comment on above: Performed By: #### 1 [id number] #### [facility] Laboratory Services [address] [place] [address] Side Gluer: Albert Arana MD MCHC (RBC) [Mass/Vol] 31.2 g/dL Low 32.0-37.0 [facility] Comment on above: Performed By: #### 1 [id number] #### [facility] Laboratory Services [address] [place] [address] Side Gluer: Albert Arana MD MCV (RBC) [Entitic vol] 85.4 fL Normal 80.0-100.[address] [facility] Comment on above: Performed By: #### 1 [id number] #### [facility] Laboratory Services [address] [place] [address] Side Gluer: Albert Arana MD Platelet 195 x10 Normal 150-450 [facility] Comment on above: Performed By: #### 1 [id number] #### [facility] Laboratory Services [address] [place] [address] Side Gluer: Albert Arana MD Platelet mean volume (Bld) [Entitic vol] 8.1 fL Normal 7.4-10.4 [facility] Comment on above: Performed By: #### 1 [id number] #### [facility] Laboratory Services [address] [place] [address] [phone] Side Gluer: Albert Arana MD RBC 3.58 x10 Low 4.20-5.40 [facility] Comment on above: Result Comment: Note : RBC morphology is normal unless otherwise stated. Evaluation performed only if differential is requested. Performed By: #### 1 [id number] #### [facility] Laboratory Services [address] [place] [address] Side Gluer: Albert Arana MD WBC 3.8 x10 Low 4.5-11.0 [facility] Comment on above: Performed By: #### 1 [id number] #### [facility] Laboratory Services [address] [place] [address] Side Gluer: Albert Arana MD Inpatient Patient Summaryon 09-15-2024 Inpatient Patient Summary [facility] Discharge Instructions [address] [place] [address] (Patient Copy) Name: BRADLEY MATOS : 1965 Diagnosis: Anemia Allergies: Nucynta; iodine; sulfa drugs; tetracycline; propofol; morphine; aspirin; Zantac; Skelaxin; Darvon Registration Date: 09/03/24 Current Date Time: 09/15/2024 10:26:10 Address: [address] [place] [address] Primary Care Provider: Name: EDMUNDO EVANS MD Phone: [phone] Thank you for choosing [facility] for your care. You are very important to us. Our goal is to demonstrate our high quality medical care and provide you with a very good patient experience. You may receive a survey about our service. Please take the time to complete the survey and return it so we can continue to enhance our service. Thank you again for allowing [facility] to care for your medical needs. If [...] With: Address: When: EDDY OVERTON, Gastroenterology [address], [address] [place] [address] Business (1) With: Address: When: EDMUNDO EVANS, Internal Medicine [address], [address] [place] [phone] Business (1) If you have had an [...] blood ce (more content not included)... Normal [facility] Progress Note-Bibi Progress Note-Physician BRADLEY MATOS :1965 Registration Date:09/03/2024 Assessment/Plan This Visit Diagnosis Anemia D64.9 Improving Orders: promethazine = Phenergan, 25 mg= 1 supp, Rectal, [id number], PRN YOLI, STAT, 09/14/2024 10:32:00 EST C [...] Physician, 09/15/2024 08:53:00 EST, Constant Order, Without Mapping Specialist Approval IV Pole and/or Pump, 09/14/2024 19:46:00 EST, Point of Care Unit BASE PUMP and Pole, 1 LIP, STAT, 09/14/2024 10:32:00 EST PCT, ROUTINE, 09/14/2024 19:03:00 EST UA, ROUTINE, Lashell Varela, 09/15/2024 05:45:06 EST 1. New onset fever [...] oral tablet = Percocet), 1 tabs, ORAL, [id number], PRN Al hydroxide/Mg hydroxide/simethicone(M ylanta = aluminum hydroxide/magnesium hydroxide/simethicone 200 mg-200 mg-20 mg/5 mL oral susp), 30 mL, ORAL, [id number], PRN atorvastatin, 40 mg= 1 tabs, ORAL, QHS bisacodyl, 10 mg= 1 supp, Rectal, DAILY, PRN bisacodyl, 5 mg= 1 tabs, ORAL, [id number], PRN cyanocobalamin, 1000 mcg= 2 tabs, ORAL, DAILY desvenlafaxine, 100 mg= 2 tabs, ORAL, QHS dicyclomine, 20 mg= 2 caps, ORAL, [id number], PRN docusate(Colace), 100 mg= 1 caps, ORAL, BID docusate-senna(Senokot S (docu 50mg/senna 8.6mg)), 1 tabs, ORAL, [id number], PRN fluticasone nasal(fluticasone 50 mcg/inh nasal spray), 1 sprays, Nasal, BID hydrOXYzine(hydrOXYzine hydrochloride = Atarax), 25 mg= 1 tabs, ORAL, BID loperamide, 4 mg= 2 caps, ORAL, PRN, PRN loratadine, 10 mg= 1 tabs, ORAL, DAILY, PRN magnesium hydroxide(Milk of Magnesia Conc 10ml =30ml MOM), 10 mL, ORAL, DAILY, PRN methocarbamol, 750 mg= 1 tabs, ORAL, [id number], PRN nystatin topical = Mycostatin, 1 carola, Topical, TID, PRN ocular lubricant(Artificial Tears), 2 drops, Both Eyes, [id number], PRN pantoprazole, 40 mg= 1 tabs, ORAL, BID polyethylene glycol 3350(MiraLax), 17 g= 1 packets, ORAL, DAILY, PRN promethazine = Phenergan, 25 mg= 1 tabs, ORAL, [id number], PRN promethazine = Phenergan, 25 mg= 1 supp, Rectal, [id number], PRN sodium biphosphate-sodium phosphate(Fleet Phospho Soda Enema), [...] <20 uni (more content not included)... Normal [facility] UAon 09-15-2024 Appearance, U Clear Normal Clear [facility] Comment on above: Performed By: #### 1 [id number] #### [facility] [address] [id number] Side Gluer: Albert Arana MD Bilirubin, U Negative Normal Negative [facility] Comment on above: Result Comment: Bili [place], U: Initial positive urine bilirubin results are not confirmed. Interfering substances may include elevated urobilinogen. Trace = 0.5-1.0 mg/dL Small = 2.0-4.0 mg/dL Moderate = 6.0-8.0 mg/dL Large = 10 mg/dl and greater Performed By: #### 1 02254 #### [facility] [address] [place] [address] Side Gluer: Albert Arana MD Blood, U Negative Normal Negative [facility] Comment on above: Result Comment: Bloo d, U: Trace = 0.03-0.05 mg/dL Small = 0.06-0.1 mg/dL Moderate = 0.2-0.5 mg/dL Large = 1.0 mg/dL and greater Performed By: #### 1 52988 #### [facility] [address] [place] [address] Side Gluer: Albert Arana MD Color, U Light-Morgan Abnormal Yellow [facility] Comment on above: Performed By: #### 1 80712 #### [facility] [address] [place] [address] Side Gluer: Albert Aarna MD Glucose Qual, U Negative Normal Negative [facility] Comment on above: Performed By: #### 1 66127 #### [facility] [address] [place] [address] Side Gluer: Albert Arana MD Hyaline Cast <1 Normal [facility] Comment on above: Performed By: #### 1 24709 #### [facility] [address] [place] [address] Side Gluer: Albert Arana MD Ketones, U Negative Normal Negative [facility] Comment on above: Performed By: #### 1 73056 #### [facility] [address] [place] [address]77[address] Side Gluer: Albert Arana MD Leukocyte Esterase, U Negative Normal Negative [facility] Comment on above: Result Comment: Leuk ocyte Esterase, U: Trace = 25 Stephani/uL Small = 75 Stephani/uL Moderate = 250 Stephani/uL Large = 500 Stephani/uL and greater Performed By: #### 1 59809 #### [facility] [address] [place] [address] 89[address] Side Gluer: Albert Arana MD Mucous, U Few Normal [facility] Comment on above: Performed By: #### 1 11155 #### [facility] [address] [place] [address] Side Gluer: Albert Arana MD Nitrite, U Negative Normal Negative [facility] Comment on above: Performed By: #### 1 10161 #### [facility] [address] [place] [address]78 Side Gluer: Albert Arana MD pH, U 5.5 Normal 4.5-8.0 [facility] Comment on above: Performed By: #### 1 21114 #### [facility] [address] [place] [address] 71107 Side Gluer: Albert Arana MD Protein, U 20 mg/dl Abnormal Negative [facility] Comment on above: Performed By: #### 1 27236 #### [facility] [address] [place] [address] 11200 Side Gluer: Albert Arana MD RBC/HPF, U 5 #/HPF High 0-3 [facility] Comment on above: Performed By: #### 1 59581 #### [facility] [address] [place] [address] 12332 Side Gluer: Albert Arana MD Specific [place], U 1.026 Normal 1.001-1.035 [facility] Comment on above: Performed By: #### 1 54160 #### [facility] [address] [place] [address] Side Gluer: Albert Arana MD Squamous Epithelial Cells, U 1 #/HPF Normal [facility] Comment on above: Performed By: #### 1 51784 #### [facility] [address] [place] [address] 259[address] Side Gluer: Albert Arana MD U MICRO Indicated Normal [facility] Comment on above: Performed By: #### 1 41385 #### [facility] [address] [place] [address] Side Gluer: Albert Arana MD Urobilinogen Qual, U 2 mg/dl Abnormal < 2 mg/dl [facility] Comment on above: Result Comment: Urob ilinogen, U: EU/dl and mg/dl are equivalent units. Performed By: #### 1 05847 #### [facility] [address] [place] [address] Side Gluer: Albert Arana MD WBC/HPF, U 2 #/HPF Normal 0-5 [facility] Comment on above: Performed By: #### 1 38956 #### [facility] [address] [place] [address] 58451 Side Gluer: Albert Arana MD ACETAMINOPHEN 500 MG TABon [...] Hale RN - 09/14/2024 19:25 EST Normal [facility] Comment on above: Order Comment: ---At home, patient was taking medication with the following details:Special Instructions: not to exceed 3000 mg/day---Check for other orders containing acetaminophen before administering. Max total daily amount is 4000 mg. AMYon 09-14-2024 Amylase <20 Low 30-118 [facility] Comment on above: Performed By: #### 1 35096, 107394, 0696816, 864709, 832105 ####[facility] [address] [place] [address] Medical Director: Albert Arana MD AUTO DIFFon 09-14-2024 Baso Count 0.03 x1000 Normal 0.00-0.20 [facility] Comment on above: Performed By: #### 1 06755, 028232, 0751366, 140892, 181454 ####[facility] Emcmsxnc26115 [place] [address] Medical Director: Albert Arana MD Basos % 0.6 % Normal [facility] Comment on above: Performed By: #### 1 80752, 445201, 4352205, 279169, 626195 ####[facility] Rdcbyahu10708 [place] [address] Medical Director: Albert Arana MD Eos Count 0.03 x1000 Normal 0.00-0.50 [facility] Comment on above: Performed By: #### 1 66180, 754412, 2826784, 467739, 793823 ####[facility] Rvrckibh52077 [place] [address] Medical Director: Albert Arana MD Eosinophils/100 WBC (Bld) 0.6 % [facility] Comment on above: Performed By: #### 1 35890, 594510, 4928328, 468943, 026570 ####[facility] Zgivrmpm60995 [place] [address] Medical Director: Albert Arana MD Lymph Count 0.20 x1000 Low 1.20-4.80 [facility] Comment on above: Performed By: #### 1 17371, 508042, 8877462, 383665, 050739 ####[facility] L[address]qquhm02090 [place] [address](440) [facility]-3059Medical Director: Albert Arana MD Lymphocytes/100 WBC (Bld) 4.2 % Normal [facility] Comment on above: Performed By: #### 1 79938, 595747, 3359768, 374351, 022561 ####[facility] [address]uwczy94006 [place] [address](440) [facility]60Medical Director: Albert Arana MD [place] Count 0.19 x1000 Normal 0.10-1.00 [facility] Comment on above: Performed By: #### 1 21458, 330296, 1008741, 462740, 699337 ####[facility] Rlcbwopn43902 [place] [address](440) [facility]-3072Medical Director: Albert Arana MD Monocytes/100 WBC (Bld) 4.2 % Normal [facility] Comment on above: Performed By: #### 1 59099, 847498, 9540873, 129443, 118996 ####[facility] Z[address]uah34970 [place] [address](440) [facility]-3896Medical Director: Albert Arana MD Neutrophil Count (ANC) 4.20 x1000 Normal 1.40-8.80 [facility] Comment on above: Performed By: #### 1 93448, 930078, 3870723, 860122, 860797 ####[facility] Usgncrsy41712 [place] [address](440) [facility]-5436Medical Director: Albert Arana MD Neutrophils/100 WBC (Bld) 90.4 % Normal [facility] Comment on above: Performed By: #### 1 05210, 228010, 4791225, 983412, 701630 ####[facility] Ysutgkbc33476 [place] [address] Medical Director: Albert Arana MD Red Blood Cell Morphology See Notes Abnormal [facility] Comment on above: Result Comment: Anis ocytosis 3+ Polychromasia present Stomatocytes 1+ Performed By: #### 1 75613, 183360, 1414817, 464443, 851956 ####[facility] [address]zprvrbb[address] [place] [address] Medical Director: Albert Arana MD Scan Differential Diff Scd Normal [facility] Comment on above: Result Comment: Slid e reviewed by technologist. Performed By: #### 1 87794, 770131, 7161692, 560013, 725887 ####[facility] Rfzefhxo97498 [place] [address] Medical Director: Albert Arana MD COMPMETAon 09-14-2024 Albumin [Mass/Vol] 2.6 g/dL Low 3.4-5.0 [facility] Comment on above: Performed By: #### 1 44778, 413489, 4761318, 476785, 688026 ####[facility] Xatsfcjt80520 [place] [address] Medical Director: Albert Arana MD Albumin/Globulin [Mass ratio] 0.6 {ratio} Normal [facility] Comment on above: Performed By: #### 1 75305, 678064, 3417682, 835153, 246586 ####[facility] Byorctdh08144 [place] [address] Medical Director: Albert Arana MD Alk Phos 110 unit/L Normal 45-117 [facility] Comment on above: Performed By: #### 1 48904, 041607, 1826673, 749036, 533445 ####[facility] [address]zjbopq40202 [place] [address] Medical Director: Albert Arana MD Bilirubin [Mass/Vol] 1.70 mg/dL High 0.30-1.20 [facility] Comment on above: Result Comment: Use of this assay is not recommended for patients undergoing treatment with eltrombopag due to the potential for falsely elevated results. Performed By: #### 1 67194, 422701, 5637618, 938814, 864823 ####[facility] Fksfowmd62234 [place] [address] Medical Director: Albert Arana MD Calcium [Mass/Vol] 8.5 mg/dL Low 8.7-10.4 [facility] Comment on above: Performed By: #### 1 77712, 910231, 0215585, 184016, 100983 ####[facility] Trkbcnkh40190 [place] [address] Medical Director: Albert Arana MD Chloride [Moles/Vol] 103 mmol/L Normal 98-107 [facility] Comment on above: Performed By: #### 1 56061, 253842, 7909500, 420079, 523764 ####[facility] Gkaadcnk84464 [place] [address] Medical Director: Albert Arana MD CO2 [Moles/Vol] 30.0 mmol/L Normal 20.0-31.0 [facility] Comment on above: Performed By: #### 1 48056, 163533, 1987375, 111264, 501011 ####[facility] Xdtbrncy08098 [place] [address] Medical Director: Albert Arana MD Creatinine [Mass/Vol] 0.6 mg/dL Normal 0.5-0.8 [facility] Comment on above: Performed By: #### 1 39626, 696463, 6019978, 435590, 997625 ####[facility] Jomnecma15604 [place] [address] Medical Director: Albert Arana MD GFR AA >60 Normal [facility] Comment on above: Result Comment: Afri can Swiss GFR Calc Medical judgement is necessary to [...] for drug dosing. Performed By: #### 1 16863, 202130, 3319563, 135827, 337951 ####[facility] Ukwizcjl03376 [place] [address] Medical Director: Albert Arana MD Globulin (S) [Mass/Vol] 4.1 g/dL Normal [facility] Comment on above: Performed By: #### 1 50736, 280320, 2154151, 514554, 135874 ####[facility] Erxspfmh37883 [place] [address] Medical Director: Albert Arana MD Glomerular Filtration Rate >60 Normal [facility] Comment on above: Result Comment: Non- [...] for drug dosing. Performed By: #### 1 04030, 634173, 4784864, 046412, 409749 ####[facility] Ikxehckh80047 [place] [address] Medical Director: Albert Arana MD Glucose [Mass/Vol] 183 mg/dL High 74-106 [facility] Comment on above: Performed By: #### 1 05181, 617699, 1988055, 267097, 697602 ####[facility] Vhabqgsg44233 [place] [address] Medical Director: Albert Arana MD GOT 58 unit/L High 15-37 [facility] Comment on above: Performed By: #### 1 10955, 390491, 5331935, 312397, 715879 ####[facility] Vbvaeozm14488 [place] [address] Medical Director: Albert Arana MD GPT 16 unit/L Normal 10-49 [facility] Comment on above: Performed By: #### 1 08611, 860022, 6456888, 548756, 315823 ####[facility] Wkwqxahb97717 [place] [address] Medical Director: Albert Arana MD Osmolality [Osmolality] 281 mosm/kg Normal 275-295 [facility] Comment on above: Performed By: #### 1 35009, 395470, 6776888, 580003, 579608 ####[facility] Uidhmyii35544 [place] [address] Medical Director: Albert Arana MD Potassium [Moles/Vol] 4.0 mmol/L Normal 3.5-5.1 [facility] Comment on above: Performed By: #### 1 04262, 825136, 5171911, 333476, 047329 ####[facility] Adzbxztq78678 [place] [address] Medical Director: Albert Arana MD Protein [Mass/Vol] 6.7 g/dL Normal 5.7-8.2 [facility] Comment on above: Result Comment: Tota l Protein results may be increased in patients receiving dextran as a blood volume assistant professor of philosophy Performed By: #### 1 59498, 750667, 5003461, 240640, 140915 ####[facility] Wrphldyx80269 [place] [address] Medical Director: Albert Arana MD Sodium [Moles/Vol] 139 mmol/L Normal 135-145 [facility] Comment on above: Performed By: #### 1 30208, 999203, 6462072, 420117, 751315 ####[facility] [address] 4825530 Medical Director: Albert Arana MD Urea nitrogen [Mass/Vol] 8 mg/dL Low 9-23 [facility] Comment on above: Result Comment: - Ve nipuncture should occur prior to N-Acetyl Cysteine (NAC) or Metamizole (Sulpyrine) administration due to the potential for falsely depressed results. - Blood samples from some patients with monoclonal gammopathies may produce falsely elevated results Performed By: #### 1 06409, 176945, 9480943, 243617, 316574 ####[facility] Szfbkghq44540 [place] [address] Medical Director: Albert Arana MD Urea nitrogen/Creatinine [Mass ratio] 13.3 mg/mg Normal [facility] Comment on above: Performed By: #### 1 80513, 189238, 5461942, 175919, 944762 ####[facility] [address]zwvlqy[address]121 [place] [address] Medical Director: Albert Arana MD COVID-19 Molecular SWEDon SARS-CoV-2 (COVID-19) RNA SAVANNAH+probe Ql (Unsp spec) Negative Normal Negative [facility] Comment on above: Result Comment: This [...] diagnosis. This testing was performed in the [facility] laboratory located at [[facility] [address]] Performed By: #### C D:[id number] #### [facility] [address] [place] [address] Side Gluer: Albert Arana MD HEMOon 09-14-2024 DIFF? No Normal [facility] Comment on above: Performed By: #### 1 97170, 740733, 2648475, 409157, 656070 #### [facility] [address] [place] [address] 79672 Side Gluer: Albert Arana MD Nucleated RBC 0 /100WBC Normal [facility] Comment on above: Performed By: #### 1 99798, 588282, 6124003, 251396, 689327 #### [facility] [address] [place] [address] 68027 Side Gluer: Albert Arana MD [facility] Actions See Notes Abnormal [facility] Comment on above: Result Comment: Scan for RBC Morphology Scan Slide. Perform manual diff if needed. SNV Performed By: #### 1 44297, 315763, 0243310, 960009, 729917 #### [facility] [address] [place], [place] [address] Side Gluer: Albert Arana MD Erythrocyte distribution width (RBC) [Ratio] 30.4 % High 11.5-14.5 [facility] Comment on above: Performed By: #### 1 68636, 615950, 4243068, 052424, 399026 #### [facility] [address] [place] [address] 94169 Side Gluer: Albert Arana MD Hematocrit (Bld) [Volume fraction] 32.2 % Low 36.0-46.0 [facility] Comment on above: Performed By: #### 1 81049, 969846, 5855587, 958506, 499968 #### [facility] [address] [place] [address] 01288 Side Gluer: Albert Arana MD Hemoglobin (Bld) [Mass/Vol] 10.1 g/dL Low 12.0-16.0 [facility] Comment on above: Performed By: #### 1 32250, 847307, 6139210, 379323, 095761 #### [facility] [address] [place] [address] Side Gluer: Albert Arana MD Instr WBC 4.6 Normal [facility] Comment on above: Performed By: #### 1 78963, 605423, 3033086, 125294, 898123 #### [facility] [address] [place] [address] 65613 Side Gluer: Albert Arana MD MCH (RBC) [Entitic mass] 26.2 pg Low 27.0-34.0 [facility] Comment on above: Performed By: #### 1 53285, 079306, 2232623, 216061, 858675 #### [facility] [address] [place] [address] 82713 Side Gluer: Albert Arana MD MCHC (RBC) [Mass/Vol] 31.3 g/dL Low 32.0-37.0 [facility] Comment on above: Performed By: #### 1 29550, 325607, 6177454, 378349, 350854 #### [facility] [address] [place] [address] 65[address] Side Gluer: Albert Arana MD MCV (RBC) [Entitic vol] 83.5 fL Normal 80.0-100.[address] [facility] Comment on above: Performed By: #### 1 07237, 464175, 0111616, 333312, 760688 #### [facility] [address] [place] [address] 98[address] Side Gluer: Albert Arana MD Platelet 183 x10 Normal 150-450 [facility] Comment on above: Performed By: #### 1 12301, 183562, 4608067, 818466, 607461 #### [facility] [address] [place] [address] Side Gluer: Albert Arana MD Platelet mean volume (Bld) [Entitic vol] 7.8 fL Normal 7.4-10.4 [facility] Comment on above: Performed By: #### 1 03870, 578710, 6558003, 671480, 269729 #### [facility] [address] [place] [address] Side Gluer: Albert Arana MD RBC 3.86 x10 Low 4.20-5.40 [facility] Comment on above: Result Comment: Note : RBC morphology is normal unless otherwise stated. Evaluation performed only if differential is requested. Performed By: #### 1 87600, 454957, 1934435, 620711, 918241 #### [facility] [address] [place] [address] Side Gluer: Albert Arana MD WBC 4.6 x10 Normal 4.5-11.0 [facility] Comment on above: Performed By: #### 1 30271, 274191, 7088740, 930183, 335530 #### [facility] [address] [place] [address] Side Gluer: Albert Arana MD LIPon 09-14-2024 Lipase [Catalytic activity/Vol] 21 U/L Normal 12-53 [facility] Comment on above: Performed By: #### 1 39441, 518745, 6116956, 883857, 534249 ####[facility] Kkebpweo11417 [place], [place] [address]) [phone] Director: Albert Arana MD Nursing Clinical Noteon [...] was put in for Phenergan suppository. 1500 enterprise project manager set up transport to [facility] of Dr. Deisy figueroa aware of pt condition throughout the day and stated pt is stable to discharge, GI issues are chronice 1700 Temp of 38.3, Page sent out to Dr. Ward to notify [address] Ward, notified of temp 38.3 at 1700, Per Dr. Ward pt not to discharge tonight as previously planned. Geoffrey RN, Mini on [facility] Nursing Clinical Note [id number]- pt had emes is episode, aprox. 200cc of undigested food. pt states her stomach feels uneasy, PRN Nausea medication given. pt instructed to call if she starts to feel worse or have any more Vomiting. [facility] Shot Peening Operator Detailson 2024 Shot Peening Operator Details Shot Peening Operator Details Entered On: 09/14/2024 22:06 EST Performed On: 09/14/2024 22:05 EST by Lashell Varela Shot Peening Operator Details Transport Mode Order Detail EV : Bed Isolation Precautions RTF : Level of Care Order, 09/04/2024 12:25:00 EST, Medical Admit as Inpatient, IV medications, trending H/H, multiple transfusions, Ordered Level of Care Order, 09/03/2024 20:38:00 EST, Observation Outpatient with Observation Services, DEISY DILL, [facility], Ordered Transfer Care of Patient to Attending, 09/03/2024 20:38:00 EST, Upon discharge from the ED, all continued medications and orders become the responsibility of the admitting/attending physician., Ordered Obtain Consent, 09/03/2024 20:37:00 EST, Consent/Refusal for Transfusion of Blood or Blood Products Form 55618L, 09/03/2024 20:37:00 EST, Ordered Obtain Consent, 09/03/2024 19:26:00 EST, Obtain Blood Transfusion Consent, 09/03/2024 19:26:00 EST, Ordered Isolation Precaution Order Detail EV : NONE IV Order Detail - EV : Yes Oxygen Order Detail EV : No Order Detail EV : No Pacemaker Order Detail : 0 Shot Peening Operator Details Review Status : Reviewed, changes made Nurse Collects Blood Specimens : No Lashell Varela - 09/14/2024 22:05 EST [facility] Comment on above: Order Comment: --- At home, patient was taking medication with the following details: Special Instructions: not to exceed 3000 mg/day --- Shot Peening Operator Details Shot Peening Operator Details Entered On: 09/14/2024 0:57 EST Performed On: 09/14/2024 0:57 EST by Heike Greene RN Shot Peening Operator Details Transport Mode Order Detail EV : Bed Isolation Precautions RTF : Level of Care Order, 09/04/2024 12:25:00 EST, Medical Admit as Inpatient, IV medications, trending H/H, multiple transfusions, Ordered Level of Care Order, 09/03/2024 20:38:00 EST, Observation Outpatient with Observation Services, DEISY DILL, [facility], Ordered Transfer Care of Patient to Attending, 09/03/2024 20:38:00 EST, Upon discharge from the ED, all continued medications and orders become the responsibility of the admitting/attending physician., Ordered Obtain Consent, 09/03/2024 20:37:00 EST, Consent/Refusal for Transfusion of Blood or Blood Products Form [id number], 09/03/2024 20:37:00 EST, Ordered Obtain Consent, 09/03/2024 19:26:00 EST, Obtain Blood Transfusion Consent, 09/03/2024 19:26:00 EST, Ordered Isolation Precaution Order Detail EV : NONE IV Order Detail - EV : No Oxygen Order Detail EV : No Order Detail EV : No Pacemaker Order Detail : 0 Shot Peening Operator Details Review Status : Reviewed, no changes Nurse Collects Blood Specimens : No Heike Greene RN - 09/14/2024 0:57 EST [facility] Comment on above: Order Comment: --- At home, patient was taking medication with the following details: Special Instructions: not to exceed 3000 mg/day --- PCTon 09-14-2024 Procalcitonin 0.62 ng/mL [facility] Comment on above: Result Comment: INTE [...] or septic shock. Performed By: #### [id number] ####[facility] [id number] [place] [id number] Medical Director: Albert Arana MD Progress Note-Physicianon Progress Note-Physician Patient: BRADLEY MATOS Age: 59 years Sex: Female : 1965 Associated Diagnoses: None Author: BROOKLYNN DILL, [facility] Subjective patient was supposed to be [...] ALUM-MAG SIMETHICONE 30 ML 30 mL, ORAL, C4HMIIZ APAP 325MG/OXYCODONE 5MG TAB 1 tabs, ORAL, [id number] ARTIFICIAL TEARS 15 ML 2 drops, Both Eyes, V2IQNWW BISACODYL 10MG SUPP 10 mg 1 supp, Rectal, DAILY BISACODYL 5MG TAB 5 mg 1 tabs, ORAL, M35FDORB DICYCLOMINE 10MG CAPSULE 20 mg 2 caps, ORAL, J3XMPPQ DOCUSATE 50MG/SENNA 8.6MG TABLET 1 tabs, ORAL, H8WEEKA LOPERAMIDE 2MG CAPSULE 4 mg 2 caps, ORAL, PRN LORATADINE 10MG TABLET 10 mg 1 tabs, ORAL, DAILY MAGNESIUM HYDROXIDE 30ML=10ML 10 mL, ORAL, DAILY METHOCARBAMOL 750MG TABLET 750 mg 1 tabs, ORAL, D4KVKGC NYSTATIN POWDER 15GM 1 carola, Topical, TID PHOSPHO SODA ENEMA 1 bottles, Rectal, DAILY POLYETHYLENE GLYCOL 3350- 17 GM PACKET 17 g 1 packets, ORAL, DAILY PROMETHAZINE 25MG SUPPOSITORY 25 mg 1 supp, Rectal, K3WPAYC PROMETHAZINE 25MG TABLET 25 mg 1 tabs, ORAL, C4BSAEM Objective Vital Signs (last 24 hrs) Last [...] deficiency anemia. Plan: Would get UA and STRONG NITRIC OPERATOR and blood cultures start her on IV normal saline bolus monitor vital signs hold discharge. Normal [facility] Progress Note-Physician BRADLEY MATOS :1965 Registration Date:09/03/2024 Patient is a temperature of 38.3. A urinalysis and urine culture will be done. Blood cultures and procalcitonin. Patient is discharged discussed with him because of the above. Normal [facility] Progress Note-Physician CHAPINBRADLEY :1965 Registration Date:09/03/2024 Patient reportedly had vomiting after he left. That was early this morning. CBC CMP amylase lipase. IV Zofran. Normal [facility] Progress Note-Physician CHAPINBRADLEY Lana :1965 Registration Date:09/03/2024 Assessment/Plan This Visit Diagnosis [...] oral tablet = Percocet), 1 tabs, ORAL, Z4UXTQF, PRN Al hydroxide/Mg hydroxide/simethicone(M ylanta = aluminum hydroxide/magnesium hydroxide/simethicone 200 mg-200 mg-20 mg/5 mL oral susp), 30 mL, ORAL, P7WROWY, PRN atorvastatin, 40 mg= 1 tabs, ORAL, QHS bisacodyl, 10 mg= 1 supp, Rectal, DAILY, PRN bisacodyl, 5 mg= 1 tabs, ORAL, [id number], PRN cyanocobalamin, 1000 mcg= 2 tabs, ORAL, DAILY desvenlafaxine, 100 mg= 2 tabs, ORAL, DAILY dicyclomine, 20 mg= 2 caps, ORAL, J4KLMDS, PRN docusate(Colace), 100 mg= 1 caps, ORAL, BID docusate-senna(Senokot S (docu 50mg/senna 8.6mg)), 1 tabs, ORAL, Z8TGWCF, PRN fluticasone nasal(fluticasone 50 mcg/inh nasal spray), 1 sprays, Nasal, BID hydrOXYzine(hydrOXYzine hydrochloride = Atarax), 25 mg= 1 tabs, ORAL, BID loperamide, 4 mg= 2 caps, ORAL, PRN, PRN loratadine, 10 mg= 1 tabs, ORAL, DAILY, PRN magnesium hydroxide(Milk of Magnesia Conc 10ml =30ml MOM), 10 mL, ORAL, DAILY, PRN methocarbamol, 750 mg= 1 tabs, ORAL, V0GVTAA, PRN nystatin topical = Mycostatin, 1 carola, Topical, TID, PRN ocular lubricant(Artificial Tears), 2 drops, Both Eyes, L0QHFBW, PRN pantoprazole, 40 mg= 1 tabs, ORAL, BID polyethylene glycol 3350(MiraLax), 17 g= 1 packets, ORAL, DAILY, PRN promethazine = Phenergan, 25 mg= 1 tabs, ORAL, Z2JLMKD, PRN sodium biphosphate-sodium phosphate(Fleet Phospho Soda Enema), 1 bottles, Rectal, DAILY, PRN Normal [facility] RAP FLU A AND Bon 09-14-2024 Rapid Influenza A Antigen Test Negative Normal [facility] Comment on above: Result Comment: A po sitive Rapid Influenza A Antigen Test indicates the presence of Influenza A. This is a screening test only and should be correlated with the patient's clinical symptoms. Performed By: #### C [id number] #### [facility] [address] [place] [address] Side Gluer: Albert Arana MD Rapid Influenza B Antigen Test Negative Normal [facility] Comment on above: Result Comment: A po sitive Rapid Influenza B Antigen Test indicates the presence of Influenza B. This is a screening test only and should be correlated with the patients's clinical symptoms. Performed By: #### C [id number] #### [facility] [address] [place] [address] Side Gluer: Albert Arana MD RFAB INT QC Present [facility] Comment on above: Performed By: #### C [id number] #### [facility] [address] [place], [place] [id number] Side Gluer: Albert Arana MD Utilization Review Noteon Utilization Review Note OBS recommended. OBS ordered. Dx: Anemia. BALDOMERO PLAN. HAS CROSSED 1MN. [facility] HOSPITAL LOC. TX: LOW H&H WITH REPEAT MONITORING, S/P PRBC TRANSFUSION X2. IN AGREEANCRE WITH ADELAIDA/FOOD ORDER DELIVERY RUNNER TO CHANGE TO INPT. INPT LOC VALID. Observ LOC 09/03/24 changed to INPT 09/04/24 [facility] Portal Verified INT adm of 09/04/24 CLIFF REF#[id number] FAXED clinical to [facility] REF#[id number] REF [id number] APPROVAL faxed update REF#[id number] Normal [facility] ACETAMINOPHEN 500 MG TABon 0 09-13-2024 [...] Heike Greene RN - 09/13/2024 23:31 EST [facility] Comment on above: Order Comment: ---At [...] Lynne Lora LPN - 09/13/2024 16:54 EST [facility] Comment on above: Order Comment: --- [...] Shante Mosley RN - 09/13/2024 2:38 EST [facility] Comment on above: Order Comment: --- At home, patient was taking medication with the following details: Special Instructions: not to exceed 3000 mg/day --- Nursing Clinical Noteon Nursing Clinical Note 3524 Assumed patie nt care, received report from RN. 3028 Patient resting in bed comfortably. A&Ox3. no complaints or needs verbalized at this time. no distress noted. pt took all meds without complications Plan for today: Discussed plan of care IV flushed, patent and capped Full Assessment completed and charted. No questions or concerns at this time. Call light within reach. Continuing to monitor. Bed/Chair alarm on and audible. Lynne Lora LPN on [facility] Nursing Clinical Note 1929 Pt laying in bed watching T.V. No distress noted. Call light in reach. 2133 Assessment complete. Pt medicated per NOV. Pt needs met at this time. Call light in reach. 5 Pt laying in bed with eyes closed. No s/s of distress noted. Call light in reach. 0650 Pt laying in bed with eyes closed. Respirations even and unlabored. Call light in reach. Normal [facility] Shot Peening Operator Detailson 2024 Shot Peening Operator Details Shot Peening Operator Details Entered On: 09/13/2024 2:50 EST Performed On: 09/13/2024 2:49 EST by Shante Mosley RN Shot Peening Operator Details Transport Mode Order Detail EV : Bed Isolation Precautions RTF : Level of Care Order, 09/04/2024 12:25:00 EST, Medical Admit as Inpatient, IV medications, trending H/H, multiple transfusions, Ordered Level of Care Order, 09/03/2024 20:38:00 EST, Observation Outpatient with Observation Services, DEISY DILL, [facility], Ordered Transfer Care of Patient to Attending, 09/03/2024 20:38:00 EST, Upon discharge from the ED, all continued medications and orders become the responsibility of the admitting/attending physician., Ordered Obtain Consent, 09/03/2024 20:37:00 EST, Consent/Refusal for Transfusion of Blood or Blood Products Form [id number], 09/03/2024 20:37:00 EST, Ordered Obtain Consent, 09/03/2024 19:26:00 EST, Obtain Blood Transfusion Consent, 09/03/2024 19:26:00 EST, Ordered Isolation Precaution Order Detail EV : NONE IV Order Detail - EV : No Oxygen Order Detail EV : No Order Detail EV : No Pacemaker Order Detail : 0 Shot Peening Operator Details Review Status : Reviewed, no changes Nurse Collects Blood Specimens : No Shante Mosley RN - 09/13/2024 2:49 EST [facility] Comment on above: Order Comment: --- At home, patient was taking medication with the following details: Special Instructions: not to exceed 3000 mg/day --- Progress Note-Physicianon Progress Note-Physician Patient: BRADLEY MATOS Age: 59 years Sex: Female : 1965 Associated Diagnoses: None Author: BROOKLYNN DILL, [facility] Subjective clinically patient is doing well. [...] ALUM-MAG SIMETHICONE 30 ML 30 mL, ORAL, S6LNMLV APAP 325MG/OXYCODONE 5MG TAB 1 tabs, ORAL, L8HCZXF ARTIFICIAL TEARS 15 ML 2 drops, Both Eyes, Q5QBCUG BISACODYL 10MG SUPP 10 mg 1 supp, Rectal, DAILY BISACODYL 5MG TAB 5 mg 1 tabs, ORAL, K99QDWRY DICYCLOMINE 10MG CAPSULE 20 mg 2 caps, ORAL, X2IBFAV DOCUSATE 50MG/SENNA 8.6MG TABLET 1 tabs, ORAL, G1GHSLN LOPERAMIDE 2MG CAPSULE 4 mg 2 caps, ORAL, PRN LORATADINE 10MG TABLET 10 mg 1 tabs, ORAL, DAILY MAGNESIUM HYDROXIDE 30ML=10ML 10 mL, ORAL, DAILY METHOCARBAMOL 750MG TABLET 750 mg 1 tabs, ORAL, X5CWFLV NYSTATIN POWDER 15GM 1 carola, Topical, TID PHOSPHO SODA ENEMA 1 bottles, Rectal, DAILY POLYETHYLENE GLYCOL 3350- 17 GM PACKET 17 g 1 packets, ORAL, DAILY PROMETHAZINE 25MG TABLET 25 mg 1 tabs, ORAL, F4FWPMO Objective Vital Signs (last 24 hrs) Last Charted Temp Oral 36.7 degC (SEP 13 19:04) Heart Rate Peripheral 89 bpm (SEP 13 19:05) SBP H 135 mmHg (SEP 13 19:) DBP 79 mmHg (SEP 13:) General: Alert and oriented. Not in acute [...] okay for discharge from GI standpoint. Normal [facility] Progress Note-Physician BRADLEY MATOS :1965 Registration [...] oral tablet = Percocet), 1 tabs, ORAL, [id number], PRN Al hydroxide/Mg hydroxide/simethicone(M ylanta = aluminum hydroxide/magnesium hydroxide/simethicone 200 mg-200 mg-20 mg/5 mL oral susp), 30 mL, ORAL, Y5ZLQPG, PRN atorvastatin, 40 mg= 1 tabs, ORAL, QHS bisacodyl, 10 mg= 1 supp, Rectal, DAILY, PRN bisacodyl, 5 mg= 1 tabs, ORAL, Z43SRYRS, PRN cyanocobalamin, 1000 mcg= 2 tabs, ORAL, DAILY desvenlafaxine, 100 mg= 2 tabs, ORAL, DAILY dicyclomine, 20 mg= 2 caps, ORAL, Y8GAPLT, PRN docusate(Colace), 100 mg= 1 caps, ORAL, BID docusate-senna(Senokot S (docu 50mg/senna 8.6mg)), 1 tabs, ORAL, R0ACFUC, PRN fluticasone nasal(fluticasone 50 mcg/inh nasal spray), 1 sprays, Nasal, BID hydrOXYzine(hydrOXYzine hydrochloride = Atarax), 25 mg= 1 tabs, ORAL, BID loperamide, 4 mg= 2 caps, ORAL, PRN, PRN loratadine, 10 mg= 1 tabs, ORAL, DAILY, PRN magnesium hydroxide(Milk of Magnesia Conc 10ml =30ml MOM), 10 mL, ORAL, DAILY, PRN methocarbamol, 750 mg= 1 tabs, ORAL, N0RMGTD, PRN nystatin topical = Mycostatin, 1 carola, Topical, TID, PRN ocular lubricant(Artificial Tears), 2 drops, Both Eyes, N6ODKWB, PRN pantoprazole, 40 mg= 1 tabs, ORAL, BID polyethylene glycol 3350(MiraLax), 17 g= 1 packets, ORAL, DAILY, PRN promethazine = Phenergan, 25 mg= 1 tabs, ORAL, L0ESVOV, PRN sodium biphosphate-sodium phosphate(Fleet Phospho Soda Enema), 1 bottles, Rectal, DAILY, PRN Lab Results Test Name Test Result Date/Time Estimated Creatinine Clearance 116.14 mL/min 09/12/2024 09:32 EST [facility] ACETAMINOPHEN 500 MG TABon 0 09-12-2024 [...] Lynne Lora LPN - 09/12/2024 18:21 EST [facility] Comment on above: Order Comment: --- [...] 3 Lashell Varela - 09/12/2024 1:06 EST [facility] Comment on above: Order Comment: --- At home, patient was taking medication with the following details: Special Instructions: not to exceed 3000 mg/day --- BASICMETAon 09-12-2024 BUN/Creat Ratio NCAL Normal [facility] Comment on above: Performed By: #### C [id number] #### [facility] [address] [place] [address] Side Gluer: Albert Arana MD Calcium [Mass/Vol] 8.6 mg/dL Low 8.7-10.4 [facility] Comment on above: Performed By: #### C [id number] #### [facility] [address] [place] [address] Side Gluer: Albert Arana MD Chloride [Moles/Vol] 105 mmol/L Normal 98-107 [facility] Comment on above: Performed By: #### C [id number] #### [facility] [address] [place] [address] Side Gluer: Albert Arana MD CO2 [Moles/Vol] 31.0 mmol/L Normal 20.0-31.0 [facility] Comment on above: Performed By: #### C [id number] #### [facility] [address] [place] [address] Side Gluer: Albert Arana MD Creatinine [Mass/Vol] 0.5 mg/dL Normal 0.5-0.8 [facility] Comment on above: Performed By: #### C [id number] #### [facility] [address] [place] [address] Side Gluer: Albert Arana MD GFR AA >60 [facility] Comment on above: Result Comment: Afri can Swiss GFR Calc Medical judgement is necessary to [...] for drug dosing. Performed By: #### C [id number] #### [facility] [address] [place] [address] Side Gluer: Albert Arana MD GFR Estimated 127 Normal [facility] Comment on above: Result Comment: The GFR is calculated and is Age, Sex, and Race adjusted. Performed By: #### C [id number] #### [facility] [address] [place] [address] Side Gluer: Albert Arana MD Glomerular Filtration Rate >60 Normal [facility] Comment on above: Result Comment: Non- [...] for drug dosing. Performed By: #### C [id number] #### [facility] [address] [place] [address] Side Gluer: Albert Arana MD Glucose [Mass/Vol] 153 mg/dL High 74-106 [facility] Comment on above: Performed By: #### C [id number] #### [facility] [address] [place] [address] Side Gluer: Albert Arana MD Osmolality [Osmolality] 283 mosm/kg Normal 275-295 [facility] Comment on above: Performed By: #### C [id number] #### [facility] [address] [place] [address] Side Gluer: Albert Arana MD Potassium [Moles/Vol] 3.7 mmol/L Normal 3.5-5.1 [facility] Comment on above: Performed By: #### C [id number] #### [facility] [address] [place] [address] Side Gluer: Albert Arana MD Sodium [Moles/Vol] 142 mmol/L Normal 135-145 [facility] Comment on above: Performed By: #### C [id number] #### [facility] [address] [place] [address] Side Gluer: Albert Arana MD Urea nitrogen [Mass/Vol] mg/dL Low 9-23 [facility] Comment on above: Result Comment: - Ve nipuncture should occur prior to N-Acetyl Cysteine (NAC) or Metamizole (Sulpyrine) administration due to the potential for falsely depressed results. - Blood samples from some patients with monoclonal gammopathies may produce falsely elevated results Performed By: #### C [id number] #### [facility] [address] [place] [address] Side Gluer: Albert Arana MD CBCNDon 09-12-2024 [facility] Actions See Notes Abnormal [facility] Comment on above: Result Comment: Scan for RBC Morphology Scan Slide. Perform manual diff if needed. SNV Performed By: #### C [id number] #### [facility] [address] [place] [address] Side Gluer: Albert Arana MD Erythrocyte distribution width (RBC) [Ratio] 29.6 % High 11.5-14.5 [facility] Comment on above: Performed By: #### C [id number] #### [facility] [address] [place] [address] Side Gluer: Albert Arana MD Hematocrit (Bld) [Volume fraction] 29.1 % Low 36.0-46.0 [facility] Comment on above: Performed By: #### C [id number] #### [facility] [address] [place] [address] Side Gluer: Albert Aarna MD Hemoglobin (Bld) [Mass/Vol] 8.8 g/dL Low 12.0-16.0 [facility] Comment on above: Performed By: #### C [id number] #### [facility] [address] [place] [address] Side Gluer: Albert Arana MD Instr WBC ND 4.5 Normal [facility] Comment on above: Performed By: #### C [id number] #### [facility] [address] [place] [address] Side Gluer: Albert Arana MD MCH (RBC) [Entitic mass] 25.1 pg Low 27.0-34.0 [facility] Comment on above: Performed By: #### C [id number] #### [facility] [address] [place] [address] Side Gluer: Albert Arana MD MCHC (RBC) [Mass/Vol] 30.2 g/dL Low 32.0-37.0 [facility] Comment on above: Performed By: #### C [id number] #### [facility] [address] [place] [address] Side Gluer: Albert Arana MD MCV (RBC) [Entitic vol] 83.2 fL Normal 80.0-100.[address] [facility] Comment on above: Result Comment: Revi ewed Performed By: #### C [id number] #### [facility] [address] [place] [address] Side Gluer: Albert Arana MD Platelet 187 x10 Normal 150-450 [facility] Comment on above: Performed By: #### C [id number] #### [facility] [address] [place] [address] Side Gluer: Albert Arana MD Platelet mean volume (Bld) [Entitic vol] 8.2 fL Normal 7.4-10.4 [facility] Comment on above: Performed By: #### C [id number] #### [facility] [address] [place] [address] Side Gluer: Albert Arana MD RBC 3.50 x10 Low 4.20-5.40 [facility] Comment on above: Result Comment: Note : RBC morphology is normal unless otherwise stated. Evaluation performed only if differential is requested. Performed By: #### C [id number] #### [facility] [address] [place] [address] Side Gluer: Albert Arana MD WBC 4.5 x10 Normal 4.5-11.0 [facility] Comment on above: Performed By: #### C [id number] #### [facility] [address] [place] [address] Side Gluer: Albert Arana MD Progress Note-Physicianodell Progress Note-Physician BRADLEY MATOS :1965 Registration Date:09/03/2024 Assessment/Plan This Visit Diagnosis Anemia D64.9 1. Iron deficiency anemia 2. Upper GI bleed APC 3. Morbid obesity sleep apnea 4. 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 Overnight events reviewed. 2. Continue Protonix 3. Patient to be discharged to [facility] 4. Follow-up as an [...] oral tablet = Percocet), 1 tabs, ORAL, W2MUPYH, PRN Al hydroxide/Mg hydroxide/simethicone(M ylanta = aluminum hydroxide/magnesium hydroxide/simethicone 200 mg-200 mg-20 mg/5 mL oral susp), 30 mL, ORAL, M5AIVZJ, PRN atorvastatin, 40 mg= 1 tabs, ORAL, QHS bisacodyl, 10 mg= 1 supp, Rectal, DAILY, PRN bisacodyl, 5 mg= 1 tabs, ORAL, W49TRVJY, PRN cyanocobalamin, 1000 mcg= 2 tabs, ORAL, DAILY desvenlafaxine, 100 mg= 2 tabs, ORAL, DAILY dicyclomine, 20 mg= 2 caps, ORAL, W2EXYJV, PRN docusate(Colace), 100 mg= 1 caps, ORAL, BID docusate-senna(Senokot S (docu 50mg/senna 8.6mg)), 1 tabs, ORAL, Z4WWHEJ, PRN fluticasone nasal(fluticasone 50 mcg/inh nasal spray), 1 sprays, Nasal, BID hydrOXYzine(hydrOXYzine hydrochloride = Atarax), 25 mg= 1 tabs, ORAL, BID loperamide, 4 mg= 2 caps, ORAL, PRN, PRN loratadine, 10 mg= 1 tabs, ORAL, DAILY, PRN magnesium hydroxide(Milk of Magnesia Conc 10ml =30ml MOM), 10 mL, ORAL, DAILY, PRN methocarbamol, 750 mg= 1 tabs, ORAL, E6XGLPS, PRN nystatin topical = Mycostatin, 1 carola, Topical, TID, PRN ocular lubricant(Artificial Tears), 2 drops, Both Eyes, O6UHHWF, PRN pantoprazole, 40 mg= 1 tabs, ORAL, BID polyethylene glycol 3350(MiraLax), 17 g= 1 packets, ORAL, DAILY, PRN promethazine = Phenergan, 25 mg= 1 tabs, ORAL, J2ZVQIZ, PRN sodium biphosphate-sodium phosphate(Fleet Phospho Soda Enema), [...] MPV 8.2 fL 09/12/2024 07:11 EST Normal [facility] Progress Note-Physician BRADLEY MATOS :1965 Registration [...] oral tablet = Percocet), 1 tabs, ORAL, J1VDMXJ, PRN Al hydroxide/Mg hydroxide/simethicone(M ylanta = aluminum hydroxide/magnesium hydroxide/simethicone 200 mg-200 mg-20 mg/5 mL oral susp), 30 mL, ORAL, T7RHRKZ, PRN atorvastatin, 40 mg= 1 tabs, ORAL, QHS bisacodyl, 10 mg= 1 supp, Rectal, DAILY, PRN bisacodyl, 5 mg= 1 tabs, ORAL, [id number], PRN cyanocobalamin, 1000 mcg= 2 tabs, ORAL, DAILY desvenlafaxine, 100 mg= 2 tabs, ORAL, DAILY dicyclomine, 20 mg= 2 caps, ORAL, [id number], PRN docusate(docusate sodium), 100 mg= 1 caps, ORAL, BID, PRN docusate-senna(Senokot S (docu 50mg/senna 8.6mg)), 1 tabs, ORAL, S5ZQDAD, PRN fluticasone nasal(fluticasone 50 mcg/inh nasal spray), 1 sprays, Nasal, BID hydrOXYzine(hydrOXYzine hydrochloride = Atarax), 25 mg= 1 tabs, ORAL, BID loperamide, 4 mg= 2 caps, ORAL, PRN, PRN loratadine, 10 mg= 1 tabs, ORAL, DAILY, PRN magnesium hydroxide(Milk of Magnesia Conc 10ml =30ml MOM), 10 mL, ORAL, DAILY, PRN methocarbamol, 750 mg= 1 tabs, ORAL, S9YSJGX, PRN nystatin topical = Mycostatin, 1 carola, Topical, TID, PRN ocular lubricant(Artificial Tears), 2 drops, Both Eyes, D5UMQQG, PRN pantoprazole, 40 mg= 1 tabs, ORAL, BID polyethylene glycol 3350(MiraLax), 17 g= 1 packets, ORAL, DAILY, PRN promethazine = Phenergan, 25 mg= 1 tabs, ORAL, R3SBNDK, PRN sodium biphosphate-sodium phosphate(Fleet Phospho Soda Enema), 1 bottles, Rectal, DAILY, PRN Diagnostic Results Oriented x 4. Mild conjunctival pallor. No icterus. Urinalysis was normal. Next physical. Respiratory system good air entry anteriorly. Cardiovascular system normal S1-S24. Abdomen obese nontender. Musculoskeletal EXTR no edema. Neuro alert oriented. Left-sided weakness. Electronically Co-Signed by: DAVID WARD MD on 09/12/2024 08:38 EST Normal [facility] ACETAMINOPHEN 500 MG TABon 0 09-11-2024 [...] Lora LPN - 09/11/2024 18:42 EST Normal [facility] Comment on above: Order Comment: --- At home, patient was taking medication with the following details: Special Instructions: not to exceed 3000 mg/day --- Shot Peening Operator Detailson 2024 Shot Peening Operator Details Shot Peening Operator Details Entered On: 09/11/2024 22:02 EST Performed On: 09/11/2024 22:02 EST by Lashell Varela Shot Peening Operator Details Transport Mode Order Detail EV : Bed Isolation Precautions RTF : Level of Care Order, 09/04/2024 12:25:00 EST, Medical Admit as Inpatient, IV medications, trending H/H, multiple transfusions, Ordered Level of Care Order, 09/03/2024 20:38:00 EST, Observation Outpatient with Observation Services, DEISY DILL, [facility], Ordered Transfer Care of Patient to Attending, 09/03/2024 20:38:00 EST, Upon discharge from the ED, all continued medications and orders become the responsibility of the admitting/attending physician., Ordered Obtain Consent, 09/03/2024 20:37:00 EST, Consent/Refusal for Transfusion of Blood or Blood Products Form [id number], 09/03/2024 20:37:00 EST, Ordered Obtain Consent, 09/03/2024 19:26:00 EST, Obtain Blood Transfusion Consent, 09/03/2024 19:26:00 EST, Ordered Isolation Precaution Order Detail EV : NONE IV Order Detail - EV : No Oxygen Order Detail EV : No Order Detail EV : No Pacemaker Order Detail : 0 Shot Peening Operator Details Review Status : Reviewed, no changes Nurse Collects Blood Specimens : Hali Varela Lashell - 09/11/2024 22:02 EST Normal [facility] Comment on above: Order Comment: --- At home, patient was taking medication with the following details: Special Instructions: not to exceed 3000 mg/day --- Progress Note-Physicianon Progress Note-Physician Patient: BRADLEY MATOS Age: 59 years Sex: Female : 1965 Associated Diagnoses: None Author: BROOKLYNN DILL, [facility] Subjective clinically patient seems to be [...] ALUM-MAG SIMETHICONE 30 ML 30 mL, ORAL, E4RXFNU APAP 325MG/OXYCODONE 5MG TAB 1 tabs, ORAL, D4ULRAE ARTIFICIAL TEARS 15 ML 2 drops, Both Eyes, P4JJAFS BISACODYL 10MG SUPP 10 mg 1 supp, Rectal, DAILY BISACODYL 5MG TAB 5 mg 1 tabs, ORAL, [id number] DICYCLOMINE 10MG CAPSULE 20 mg 2 caps, ORAL, G7PSWTV DOCUSATE 50MG/SENNA 8.6MG TABLET 1 tabs, ORAL, G9VWVRR DOCUSATE SODIUM 100MG CAPSULE 100 mg 1 caps, ORAL, BID LOPERAMIDE 2MG CAPSULE 4 mg 2 caps, ORAL, PRN LORATADINE 10MG TABLET 10 mg 1 tabs, ORAL, DAILY MAGNESIUM HYDROXIDE 30ML=10ML 10 mL, ORAL, DAILY METHOCARBAMOL 750MG TABLET 750 mg 1 tabs, ORAL, F0TVXMJ NYSTATIN POWDER 15GM 1 carola, Topical, TID PHOSPHO SODA ENEMA 1 bottles, Rectal, DAILY POLYETHYLENE GLYCOL 3350- 17 GM PACKET 17 g 1 packets, ORAL, DAILY PROMETHAZINE 25MG TABLET 25 mg 1 tabs, ORAL, A9HSVQY Objective Vital Signs (last 24 hrs) Last [...] the rehab. Stable from GI standpoint. Normal [facility] ACETAMINOPHEN 500 MG TABon 0 09-10-2024 [...] 3 Lashell Varela - 09/10/2024 21:26 EST [facility] Comment on above: Order Comment: --- [...] Lelo Tineo LPN - 09/10/2024 10:01 EST [facility] Comment on above: Order Comment: --- At home, patient was taking medication with the following details: Special Instructions: not to exceed 3000 mg/day --- Shot Peening Operator Detailson 2024 Shot Peening Operator Details Shot Peening Operator Details Entered On: 09/10/2024 22:23 EST Performed On: 09/10/2024 22:23 EST by Lashell Varela Shot Peening Operator Details Transport Mode Order Detail EV : Bed Isolation Precautions RTF : Level of Care Order, 09/04/2024 12:25:00 EST, Medical Admit as Inpatient, IV medications, trending H/H, multiple transfusions, Ordered Level of Care Order, 09/03/2024 20:38:00 EST, Observation Outpatient with Observation Services, DEISY DILL, [facility], Ordered Transfer Care of Patient to Attending, 09/03/2024 20:38:00 EST, Upon discharge from the ED, all continued medications and orders become the responsibility of the admitting/attending physician., Ordered Obtain Consent, 09/03/2024 20:37:00 EST, Consent/Refusal for Transfusion of Blood or Blood Products Form [id number], 09/03/2024 20:37:00 EST, Ordered Obtain Consent, 09/03/2024 19:26:00 EST, Obtain Blood Transfusion Consent, 09/03/2024 19:26:00 EST, Ordered Isolation Precaution Order Detail EV : NONE IV Order Detail - EV : No Oxygen Order Detail EV : No Order Detail EV : No Pacemaker Order Detail : 0 Shot Peening Operator Details Review Status : Reviewed, no changes Nurse Collects Blood Specimens : Lashell Mccray - 09/10/2024 22:23 EST Normal [facility] Comment on above: Order Comment: --- At home, patient was taking medication with the following details: Special Instructions: not to exceed 3000 mg/day --- Progress Note-Physicianon Progress Note-Physician Patient: BRADLEY MATOS Age: 59 years Sex: Female : 1965 Associated Diagnoses: None Author: BROOKLYNN DILL, [facility] Subjective patient's condition is stable. H&H [...] ALUM-MAG SIMETHICONE 30 ML 30 mL, ORAL, L9QZPLJ APAP 325MG/OXYCODONE 5MG TAB 1 tabs, ORAL, B5WLQDI ARTIFICIAL TEARS 15 ML 2 drops, Both Eyes, E8ELSAO BISACODYL 10MG SUPP 10 mg 1 supp, Rectal, DAILY BISACODYL 5MG TAB 5 mg 1 tabs, ORAL, B03UWOCW DICYCLOMINE 10MG CAPSULE 20 mg 2 caps, ORAL, J3RNORH DOCUSATE 50MG/SENNA 8.6MG TABLET 1 tabs, ORAL, V1HMBBJ DOCUSATE SODIUM 100MG CAPSULE 100 mg 1 caps, ORAL, BID LOPERAMIDE 2MG CAPSULE 4 mg 2 caps, ORAL, PRN LORATADINE 10MG TABLET 10 mg 1 tabs, ORAL, DAILY MAGNESIUM HYDROXIDE 30ML=10ML 10 mL, ORAL, DAILY METHOCARBAMOL 750MG TABLET 750 mg 1 tabs, ORAL, Y8VBZNA NYSTATIN POWDER 15GM 1 carola, Topical, TID PHOSPHO SODA ENEMA 1 bottles, Rectal, DAILY POLYETHYLENE GLYCOL 3350- 17 GM PACKET 17 g 1 packets, ORAL, DAILY PROMETHAZINE 25MG TABLET 25 mg 1 tabs, ORAL, H4UBUCB Objective Vital Signs (last 24 hrs) Last [...] waiting for pre-CERT for rehab center. Normal [facility] Progress Note-Physician BRADLEY MATOS DOB:1965 Registration Date:09/03/2024 Assessment/Plan This Visit Diagnosis Anemia [...] oral tablet = Percocet), 1 tabs, ORAL, H0EEICM, PRN Al hydroxide/Mg hydroxide/simethicone(M ylanta = aluminum hydroxide/magnesium hydroxide/simethicone 200 mg-200 mg-20 mg/5 mL oral susp), 30 mL, ORAL, J1FPRCH, PRN atorvastatin, 40 mg= 1 tabs, ORAL, QHS bisacodyl, 10 mg= 1 supp, Rectal, DAILY, PRN bisacodyl, 5 mg= 1 tabs, ORAL, P73MCLVQ, PRN cyanocobalamin, 1000 mcg= 2 tabs, ORAL, DAILY desvenlafaxine, 100 mg= 2 tabs, ORAL, DAILY dicyclomine, 20 mg= 2 caps, ORAL, K9EXMCS, PRN docusate(docusate sodium), 100 mg= 1 caps, ORAL, BID, PRN docusate-senna(Senokot S (docu 50mg/senna 8.6mg)), 1 tabs, ORAL, I7AHFRL, PRN fluticasone nasal(fluticasone 50 mcg/inh nasal spray), 1 sprays, Nasal, BID hydrOXYzine(hydrOXYzine hydrochloride = Atarax), 25 mg= 1 tabs, ORAL, BID loperamide, 4 mg= 2 caps, ORAL, PRN, PRN loratadine, 10 mg= 1 tabs, ORAL, DAILY, PRN magnesium hydroxide(Milk of Magnesia Conc 10ml =30ml MOM), 10 mL, ORAL, DAILY, PRN methocarbamol, 750 mg= 1 tabs, ORAL, L2TRDOY, PRN nystatin topical = Mycostatin, 1 carola, Topical, TID, PRN ocular lubricant(Artificial Tears), 2 drops, Both Eyes, X5IUXJS, PRN pantoprazole, 40 mg= 1 tabs, ORAL, BID polyethylene glycol 3350(MiraLax), 17 g= 1 packets, ORAL, DAILY, PRN promethazine = Phenergan, 25 mg= 1 tabs, ORAL, O9YRIBE, PRN sodium biphosphate-sodium phosphate(Fleet Phospho Soda Enema), 1 bottles, Rectal, DAILY, PRN Lab Results Test Name Test Result Date/Time HGB 8.4 g/dL 09/09/2024 17:25 EST HGB 8.1 g/dL 09/09/2024 11:23 EST HCT 27.4 % 09/09/2024 17:25 EST HCT 26.1 % 09/09/2024 11:23 EST Normal [facility] ACETAMINOPHEN 500 MG TABon 0 09-09-2024 [...] needed time is correct) Lashell Varela - 09/09/2024 21:40 EST Numeric Pain Scale Numeric Pain Scale : 3 = Mild Pain Numeric Pain Score : 3 Lashell Varela - 09/09/2024 21:40 EST Normal [facility] Comment on above: Order Comment: ---At [...] Lelo Tineo LPN - 09/09/2024 9:53 EST Normal [facility] Comment on above: Order Comment: ---At [...] : No (not needed time is correct) Jeronimo CAIN Ariana - 09/09/2024 0:08 EST Numeric Pain Scale Numeric Pain Scale : 1 = Mild Pain Numeric Pain Score : 1 Ariana Decker RN - 09/09/2024 0:08 EST Normal [facility] Comment on above: Order Comment: --- At home, patient was taking medication with the following details: Special Instructions: not to exceed 3000 mg/day --- AUTO DIFFon 09-09-2024 Baso Count 0.04 x1000 Normal 0.00-0.20 [facility] Comment on above: Performed By: #### 1 [id number], [id number], [id number] ####[facility] [address] [place], [place] [id number] Medical Director: Albert Arana MD Basos % 0.8 % Normal [facility] Comment on above: Performed By: #### 1 [id number], [id number], [id number] ####[facility] [address] [place] [address] Medical Director: Albert Arana MD Eos Count 0.06 x1000 Normal 0.00-0.50 [facility] Comment on above: Performed By: #### 1 444311, 783594, [id number] ####[facility] [address] [place] [address] Medical Director: Albert Arana MD Eosinophils/100 WBC (Bld) 1.2 % Normal [facility] Comment on above: Performed By: #### 1 [id number], 106173, [id number] ####[facility] [address] [place] [address] Medical Director: Albert Arana MD Lymph Count 1.01 x1000 Low 1.20-4.80 [facility] Comment on above: Performed By: #### 1 215275, 810759, [id number] ####[facility] [address]75 [place] [address] Medical Director: Albert Arana MD Lymphocytes/100 WBC (Bld) 22.9 % Normal [facility] Comment on above: Performed By: #### 1 [id number], 944171, [id number] ####[facility] [address]14 [place] [address] Medical Director: Albert Arana MD [place] Count 0.32 x1000 Normal 0.10-1.00 [facility] Comment on above: Performed By: #### 1 423686, 152071, [id number] ####[facility] [address] [place] [address] Medical Director: Albert Arana MD Monocytes/100 WBC (Bld) 7.2 % Normal S [facility] Comment on above: Performed By: #### 1 874325, 746470, [id number] ####[facility] [address] [place] [address] Medical Director: Albert Arana MD Neutrophil Count (ANC) 2.98 x1000 Normal 1.40-8.80 So [facility] Comment on above: Performed By: #### 1 258022, 953741, [id number] ####[facility] [address] [place] [address] Medical Director: Albert Arana MD Neutrophils/100 WBC (Bld) 67.8 % Normal [facility] Comment on above: Performed By: #### 1 665394, 950618, [id number] ####[facility] [address] [place] [address] Medical Director: Albert Arana MD Red Blood Cell Morphology See Notes Abnormal [facility] Comment on above: Result Comment: Hypo chromia 1+ Anisocytosis 3+ Polychromasia 1+ Performed By: #### 1 145857, 263816, 4884963 ####[facility] [address] [place] [address] Medical Director: Albert Arana MD Scan Differential Diff Scd Normal [facility] Comment on above: Result Comment: Slid e reviewed by technologist. Performed By: #### 1 175403, 065042, [id number] ####[facility] [address] [place] [address] [facility] Director: Albert Arana MD Discharge Med Summary - Phar chip - [facility] 09-09-2024 Discharge Med Summary - Pharmacy - Text Discharge Medication Summary - Pharmacy Entered On: 09/09/2024 10:28 EST Performed On: 09/09/2024 10:27 EST by Star Palacio RPh Discharge Medication Summary - Pharmacy Therapy Type : Discharge Medication Intervention Preferred Pharmacy : Patient Preferred Pharmacy: Name: [id number] Address: [address] [place] [address]: [place]: [place] Zip: [id number] Phone: [phone] Fax: [phone] Prescriber Response : Modified Pharmacist Intervention Time : 15 Discharge Disposition : ECF-Extended Care Facility Medication(s) Changed : Yes Star Palacio RPh - 09/09/2024 10:27 EST Medication(s) Changed details : 09/09 [facility] Resume dates added on depart to plavix [...] nystatin, and fleet enema Additional Information : /2 [facility] dc to SNF Discharge Medication List : Home Medications (18) Active acetaminophen 500 mg oral tablet 1,000 mg = 2 tabs, PRN, ORAL, DAILY acetaminophen-oxycodone 325 mg-5 mg oral tablet = Percocet 1 tabs, PRN, ORAL, U2STAQM Artificial Tears ophthalmic solution 2 drops, PRN, Both Eyes, V9CUEAU atorvastatin 40 mg oral tablet 40 mg [...] 20 mg = 2 caps, PRN, ORAL, A2LUXRL Eliquis 2.5 mg oral tablet 2.5 mg = 1 tabs, ORAL, BID hydrOXYzine hydrochloride 25 mg oral tablet 25 mg = 1 tabs, ORAL, BID methocarbamol 750 mg oral tablet 750 mg = 1 tabs, PRN, ORAL, L5YOKKG Milk of Magnesia Conc 10ml =30ml MOM 2.4 g = 10 mL, PRN, ORAL, DAILY MiraLax 17 g, PRN, ORAL, DAILY Plavix 75 mg oral tablet 75 mg = 1 tabs, ORAL, DAILY promethazine 25 mg oral tablet 25 mg = 1 tabs, PRN, ORAL, F5HASPW Protonix 40 mg oral delayed release tablet 40 mg = 1 tabs, ORAL, BID RABEprazole 20 mg oral delayed release tablet 20 mg = 1 tabs, PRN, ORAL, DAILY Senna S 50 mg-8.6 mg oral tablet 1 tabs, PRN, ORAL, T5WPVDW New Discharge Meds : Medication : RABEprazole- 20 mg 1 tabs, ORAL, DAILY, PRN, Date: 09/04/2024 10:03:00 EST, Tablet EC acetaminophen- 1,000 mg 2 tabs, ORAL, DAILY, PRN, not to exceed 3000 mg/day, Date: 09/04/2024 10:09:00 EST acetaminophen-oxycodone - 1 tabs, ORAL, E7IUTLO, PRN PRN Moderate Pain, Refill(s) 0, Date: [...] EST dicyclomine- 20 mg 2 caps, ORAL, N5GGMWA, PRN, Date: 09/04/2024 09:39:00 EST docusate-senna- 1 tabs, ORAL, L8ISRMA, PRN PRN Constipation, Refill(s) 0, Date: 09/04/2024 10:06:00 EST hydrOXYzine- 25 mg 1 tabs, ORAL, BID, Date: 09/04/2024 09:43:00 EST magnesium hydroxide- 10 mL, ORAL, DAILY, PRN PRN Constipation, Refill(s) 0, Date: 09/04/2024 09:54:00 EST methocarbamol- 750 mg 1 tabs, ORAL, F2CWFRR, PRN, Date: 09/04/2024 09:52:00 EST ocular lubricant- 2 drops, Both Eyes, O0QWVMT, PRN PRN Itching, Refill(s) 0, Date: 09/04/2024 09:33:00 EST pantoprazole- 40 mg 1 tabs, ORAL, BID, 60 tabs, Date: 09/09/2024 09:51:00 EST, Tablet CR polyethylene glycol 3350- 17 g, ORAL, DAILY, PRN, dissolve in water before taking, Date: 09/04/2024 09:55:00 EST, Powder promethazine = Phenergan- 25 mg 1 tabs, ORAL, F5ZKGLI, PRN, Date: 09/04/2024 10:02:00 EST Jonaanek RPh, Star - 09/09/2024 10:27 EST Normal [facility] H AND Hon 09-09-2024 DxH Actions See Notes Abnormal [facility] Comment on above: Result Comment: Scan for RBC Morphology SNV Performed By: #### 1 [id number] #### [facility] [address] [place] [address] Side Gluer: Albert Arana MD Hematocrit (Bld) [Volume fraction] 27.4 % Low 36.0-46.0 [facility] Comment on above: Performed By: #### 1 [id number] #### [facility] [address] [place], [place] [address] Side Gluer: Albert Arana MD Hemoglobin (Bld) [Mass/Vol] 8.4 g/dL Low 12.0-16.0 [facility] Comment on above: Performed By: #### 1 [id number] #### [facility] [address] [place], [place] [address] Side Gluer: Albert Arana MD Dx Actions See Notes Abnormal [facility] Comment on above: Result Comment: Scan for RBC Morphology SNV Performed By: #### 1 [id number] ####[facility] [address] [place], [place] [address] Medical Director: Albert Arana MD Hematocrit (Bld) [Volume fraction] 26.1 % Low 36.0-46.0 [facility] Comment on above: Performed By: #### 1 [id number] ####[facility] [address] [place], [place] [address] Medical Director: Albert Arana MD Hemoglobin (Bld) [Mass/Vol] 8.1 g/dL Low 12.0-16.0 [facility] Comment on above: Performed By: #### 1 [id number] ####[facility] [address] [place] [address] Medical Director: Albert Arana MD [facility] Actions See Notes Abnormal [facility] Comment on above: Result Comment: Scan for RBC Morphology SNV Performed By: #### C [id number] #### [facility] [address] [place] [address] Side Gluer: Albert Arana MD Hematocrit (Bld) [Volume fraction] 26.6 % Low 36.0-46.0 [facility] Comment on above: Performed By: #### C [id number] #### [facility] [address] [place] [address] Side Gluer: Albert Arana MD Hemoglobin (Bld) [Mass/Vol] 8.1 g/dL Low 12.0-16.0 [facility] Comment on above: Performed By: #### C [id number] #### [facility] [address] [place] [address] Side Gluer: Albert Arana MD HEMOon 09-09-2024 DIFF? No Normal [facility] Comment on above: Performed By: #### 1 297179, 188639, [id number] ####[facility] [address]256 [place] [address] Medical Director: Albert Arana MD Nucleated RBC 0 /100WBC Normal [facility] Comment on above: Performed By: #### 1 623112, 591715, [id number] ####[facility] [address] [place] [address] Medical Director: Albert Arana MD Dx Actions See Notes Abnormal [facility] Comment on above: Result Comment: Scan for RBC Morphology SNV Performed By: #### 1 564160, 109196, [id number] ####[facility] Ctr[address]nn34552 [place], [place] [phone]) [phone] Director: Albert Arana MD Erythrocyte distribution width (RBC) [Ratio] 24.9 % High 11.5-14.5 [facility] Comment on above: Performed By: #### 1 279494, 309474, [id number] ####[facility] [address]rk[address] [place] [address] Medical Director: Albert Arana MD Hematocrit (Bld) [Volume fraction] 26.1 % Low 36.0-46.0 [facility] Comment on above: Performed By: #### 1 530854, 806984, [id number] ####[facility] [address] [place] [address] [id number]) [phone] Director: Albert Arana MD Hemoglobin (Bld) [Mass/Vol] 8.2 g/dL Low 12.0-16.0 [facility] Comment on above: Performed By: #### 1 338359, 776133, 8790853 ####[facility] [address] [place] [address] Medical Director: Albert Arana MD Instr WBC 4.4 Normal [facility] Comment on above: Performed By: #### 1 066812, 646547, [id number] ####[facility] [address] [place] [address] Medical Director: Albert Arana MD MCH (RBC) [Entitic mass] 24.8 pg Low 27.0-34.0 [facility] Comment on above: Performed By: #### 1 223356, 654793, [id number] ####[facility] [address] [place] [address] Medical Director: Albert Arana MD MCHC (RBC) [Mass/Vol] 31.4 g/dL Low 32.0-37.0 [facility] Comment on above: Performed By: #### 1 287057, 066748, 4369516 ####[facility] [address]emo[address] [place] [address] Medical Director: Albert Arana MD MCV (RBC) [Entitic vol] 78.9 fL Low 80.0-100.[address] [facility] Comment on above: Performed By: #### 1 736983, 968037, [id number] ####[facility] [address]rettgce29366 [place] [address] Medical Director: Albert Arana MD Platelet 153 x10 Normal 150-450 [facility] Comment on above: Performed By: #### 1 549490, 795445, [id number] ####[facility] [address]zzs[address]06 [place] [address] Medical Director: lAbert Arana MD Platelet mean volume (Bld) [Entitic vol] 8.8 fL Normal 7.4-10.4 [facility] Comment on above: Performed By: #### 1 888109, 949745, [id number] ####[facility] [address] [place] [address] Medical Director: Albert Arana MD RBC 3.31 x10 Low 4.20-5.40 [facility] Comment on above: Result Comment: Note : RBC morphology is normal unless otherwise stated. Evaluation performed only if differential is requested. Performed By: #### 1 700779, 688466, [id number] ####[facility] Ivxpvehq[address]90 [place] [address] Medical Director: Albert Arana MD WBC 4.4 x10 Low 4.5-11.0 [facility] Comment on above: Performed By: #### 1 803703, 713547, 5295946 ####[facility] [address] [place] [address] Medical Director: Albert Arana MD Nursing Clinical Noteon 01-0 2-2025 Nursing Clinical Note 0900- AM med pass completed with assessment, alert and oriented. Sitting up in bed eating breakfast. H and H q6. Awaiting consults. Respirations even and unlabored on r/a. Patient bedbound from facility. x2 turn assist. [place]wick in place for elimination. Iv flushed patent and capped. Bed alarm on. [facility] Shot Peening Operator Detailson 2024 Shot Peening Operator Details Shot Peening Operator Details Entered On: 09/09/2024 22:08 EST Performed On: 09/09/2024 22:07 EST by Lashell Varela Shot Peening Operator Details Transport Mode Order Detail EV : Bed Isolation Precautions RTF : Level of Care Order, 09/04/2024 12:25:00 EST, Medical Admit as Inpatient, IV medications, trending H/H, multiple transfusions, Ordered Level of Care Order, 09/03/2024 20:38:00 EST, Observation Outpatient with Observation Services, DEISY DILL, [facility], Ordered Transfer Care of Patient to Attending, 09/03/2024 20:38:00 EST, Upon discharge from the ED, all continued medications and orders become the responsibility of the admitting/attending physician., Ordered Obtain Consent, 09/03/2024 20:37:00 EST, Consent/Refusal for Transfusion of Blood or Blood Products Form [id number], 09/03/2024 20:37:00 EST, Ordered Obtain Consent, 09/03/2024 19:26:00 EST, Obtain Blood Transfusion Consent, 09/03/2024 19:26:00 EST, Ordered Isolation Precaution Order Detail EV : NONE IV Order Detail - EV : No Oxygen Order Detail EV : No Order Detail EV : No Pacemaker Order Detail : 0 Shot Peening Operator Details Review Status : Reviewed, no changes Nurse Collects Blood Specimens : No Lashell Varela - 09/09/2024 22:07 EST [facility] Comment on above: Order Comment: --- At home, patient was taking medication with the following details: Special Instructions: not to exceed 3000 mg/day --- Shot Peening Operator Details Shot Peening Operator Details Entered On: 09/09/2024 0:06 EST Performed On: 09/09/2024 0:06 EST by Arinaa Decker RN Shot Peening Operator Details Transport Mode Order Detail EV : Bed Isolation Precautions RTF : Level of Care Order, 09/04/2024 12:25:00 EST, Medical Admit as Inpatient, IV medications, trending H/H, multiple transfusions, Ordered Level of Care Order, 09/03/2024 20:38:00 EST, Observation Outpatient with Observation Services, DEISY DILL [facility], Ordered Transfer Care of Patient to Attending, 09/03/2024 20:38:00 EST, Upon discharge from the ED, all continued medications and orders become the responsibility of the admitting/attending physician., Ordered Obtain Consent, 09/03/2024 20:37:00 EST, Consent/Refusal for Transfusion of Blood or Blood Products Form [id number], 09/03/2024 20:37:00 EST, Ordered Obtain Consent, 09/03/2024 19:26:00 EST, Obtain Blood Transfusion Consent, 09/03/2024 19:26:00 EST, Ordered Isolation Precaution Order Detail EV : NONE IV Order Detail - EV : No Oxygen Order Detail EV : No Order Detail EV : No Pacemaker Order Detail : 0 Shot Peening Operator Details Review Status : Reviewed, no changes Nurse Collects Blood Specimens : No Ariana Decker RN - 09/09/2024 0:06 EST [facility] Comment on above: Order Comment: --- [...] : 5 Pharmacy Additional Information : 09/10 [facility] - 09/09/2024 12:59 EST [facility] Comment on above: Order Comment: FOR [...] 1965 Associated Diagnoses: None Author: BROOKLYNN DILL, [facility] Subjective clinically patient doing well. Hemoglobin [...] PANTOPRAZOLE 40MG INJECTION 40 mg, IV Push, [id number] PANTOPRAZOLE 40MG TAB 40 mg 1 tabs, ORAL, BID Continuous: (0) PRN: (17) ACETAMINOPHEN 500 MG TAB 1,000 mg 2 tabs, ORAL, DAILY ALUM-MAG SIMETHICONE 30 ML 30 mL, ORAL, [id number] APAP 325MG/OXYCODONE 5MG TAB 1 tabs, ORAL, [id number] ARTIFICIAL TEARS 15 ML 2 drops, Both Eyes, [id number] BISACODYL 10MG SUPP 10 mg 1 supp, Rectal, DAILY BISACODYL 5MG TAB 5 mg 1 tabs, ORAL, [id number] DICYCLOMINE 10MG CAPSULE 20 mg 2 caps, ORAL, [id number] DOCUSATE 50MG/SENNA 8.6MG TABLET 1 tabs, ORAL, [id number] DOCUSATE SODIUM 100MG CAPSULE 100 mg 1 caps, ORAL, BID LOPERAMIDE 2MG CAPSULE 4 mg 2 caps, ORAL, PRN LORATADINE 10MG TABLET 10 mg 1 tabs, ORAL, DAILY MAGNESIUM HYDROXIDE 30ML=10ML 10 mL, ORAL, DAILY METHOCARBAMOL 750MG TABLET 750 mg 1 tabs, ORAL, [id number] NYSTATIN POWDER 15GM 1 carola, Topical, TID PHOSPHO SODA ENEMA 1 bottles, Rectal, DAILY POLYETHYLENE GLYCOL 3350- 17 GM PACKET 17 g 1 packets, ORAL, DAILY PROMETHAZINE 25MG TABLET 25 mg 1 tabs, ORAL, [id number] Objective Vital Signs (last 24 hrs) Last Charted Temp Oral 36.8 degC (SEP 09 19:00) Heart Rate Peripheral 79 bpm (SEP 09 19:06) Resp Rate 18 br/min (SEP 09:) SBP H 124 mmHg (SEP 09 19:05) DBP 73 mmHg (SEP 09:) General: Alert and oriented. Not in acute [...] from GI standpoint. Waiting for rehab. Normal [facility] RENAL PNLon 09-09-2024 GFR Estimated 103 Normal [facility] Comment on above: Result Comment: The GFR is calculated and is Age, Sex, and Race adjusted. Performed By: #### 1 [id number], [id number], [id number] ####[facility] [address] [place] [address] Medical Director: Albert Arana MD Albumin [Mass/Vol] 2.6 g/dL Low 3.4-5.0 [facility] Comment on above: Performed By: #### 1 [id number], [id number], [id number] ####[facility] [address]qs[address] [place] [address] Medical Director: Albert Arana MD BUN/Creat Ratio NCAL Normal [facility] Comment on above: Performed By: #### 1 [id number], [id number], [id number] ####[facility] Xfltvrvk71246 [place], [place] [id number]) [phone] Director: Albert Arana MD Calcium [Mass/Vol] 8.4 mg/dL Low 8.7-10.4 [facility] Comment on above: Performed By: #### 1 133159, [id number], [id number] ####[facility] [address]ud[address]pg[address] [place] [address] Medical Director: Albert Arana MD Calcium [Mass/Vol] 9.5 mg/dL Normal 8.5-10.5 [facility] Comment on above: Performed By: #### 1 858266, [id number], [id number] ####[facility] [address] [place] [address] Medical Director: Albert Arana MD Chloride [Moles/Vol] 103 mmol/L Normal 98-107 [facility] Comment on above: Performed By: #### 1 977163, 097124, [id number] ####[facility] [address]liwgvtv313[address] [place], [place] [id number]) [phone] Director: Albert Arana MD CO2 [Moles/Vol] 32.0 mmol/L High 20.0-31.0 [facility] Comment on above: Performed By: #### 1 272807, 299606, [id number] ####[facility] [address] [place] [address] Medical Director: Albert Arana MD Creatinine [Mass/Vol] 0.6 mg/dL Normal 0.5-0.8 [facility] Comment on above: Performed By: #### 1 317647, 652861, [id number] ####[facility] [address]sekd29[address] [place], [place] [id number]) [phone] Director: Albert Arana MD GFR AA >60 Normal [facility] Comment on above: Result Comment: Afri can Swiss GFR Calc Medical judgement is necessary to [...] for drug dosing. Performed By: #### 1 264741, 162361, [id number] ####[facility] Jan[address]bhj[address] [place] [address] Medical Director: Albert Arana MD Glomerular Filtration Rate >60 Normal [facility] Comment on above: Result Comment: Non- [...] for drug dosing. Performed By: #### 1 [id number], 207551, [id number] ####[facility] Ikdgcmdm83181 [place] [address] Medical Director: Albert Arana MD Glucose [Mass/Vol] 168 mg/dL High 74-106 [facility] Comment on above: Performed By: #### 1 [id number], 282217, [id number] ####[facility] [address]ug[address] [place] [address] Medical Director: Albert Arana MD Osmolality [Osmolality] 284 mosm/kg Normal 275-295 [facility] Comment on above: Performed By: #### 1 212228, 505270, [id number] ####[facility] [address] [place] [address] Medical Director: Albert Arana MD Phosphate [Mass/Vol] 3.3 mg/dL Normal 2.0-5.1 [facility] Comment on above: Result Comment: Bloo d samples from some patients with monoclonal gammopathies may produce falsely elevated results Performed By: #### 1 816256, 814968, 0255919 ####[facility] [address]wtb55[address] [place] [address] Medical Director: Albert Arana MD Potassium [Moles/Vol] 3.3 mmol/L Low 3.5-5.1 [facility] Comment on above: Performed By: #### 1 888419, 268204, [id number] ####[facility] [address] [place] [address] Medical Director: Albert Arana MD Sodium [Moles/Vol] 142 mmol/L Normal 135-145 [facility] Comment on above: Performed By: #### 1 339599, 475053, [id number] ####[facility] [address] [place] [address] Medical Director: Albert Arana MD Urea nitrogen [Mass/Vol] mg/dL Low 9-23 [facility] Comment on above: Result Comment: - Ve nipuncture should occur prior to N-Acetyl Cysteine (NAC) or Metamizole (Sulpyrine) administration due to the potential for falsely depressed results. - Blood samples from some patients with monoclonal gammopathies may produce falsely elevated results Performed By: #### 1 562623, 555620, [id number] ####[facility] [address]unh[address] [place] [address] Medical Director: Albert Arana MD ACETAMINOPHEN 500 [...] : No (not needed time is correct) Jesse CAIN, Astrid - 09/08/2024 1:32 EST Numeric Pain Scale Numeric Pain Scale : 2 = Mild Pain Numeric Pain Score : 2 Astrid Molina RN - 09/08/2024 1:32 EST Normal [facility] Comment on above: Order Comment: ---At home, patient was taking medication with the following details:Special Instructions: not to exceed 3000 mg/day--- AUTO DIFFon 09-08-2024 Baso Count 0.03 x1000 Normal 0.00-0.20 [facility] Comment on above: Performed By: #### 1 33276 #### [facility] Services [address] [place] [address] Side Gluer: Albert Arana MD Basos % 0.8 % Normal [facility] Comment on above: Performed By: #### 1 57707 #### [facility] [address] [place] [address] Side Gluer: Albert Arana MD Eos Count 0.06 x1000 Normal 0.00-0.50 [facility] Comment on above: Performed By: #### 1 80411 #### [facility] Services [address] [place] [address] Side Gluer: Albert Arana MD Eosinophils/100 WBC (Bld) 1.4 % Normal [facility] Comment on above: Performed By: #### 1 93383 #### [facility] [address] [place], [place] [address] Side Gluer: Albert Arana MD Lymph Count 1.08 x1000 Low 1.20-4.80 [facility] Comment on above: Performed By: #### 1 03716 #### [facility] [address] [place], [place] [address] Side Gluer: Albert Arana MD Lymphocytes/100 WBC (Bld) 26.5 % Normal [facility] Comment on above: Performed By: #### 1 56784 #### [facility] [address] [place], [place] [address] Side Gluer: Albert Arana MD [place] Count 0.36 x1000 Normal 0.10-1.00 [facility] Comment on above: Performed By: #### 1 62227 #### [facility] [address] [place] [address] Side Gluer: Albert Arana MD Monocytes/100 WBC (Bld) 8.8 % Normal [facility] Comment on above: Performed By: #### 1 95160 #### [facility] [address] [place] [address] Side Gluer: Albert Arana MD Neutrophil Count (ANC) 2.56 x1000 Normal 1.40-8.80 [facility] Comment on above: Performed By: #### 1 27878 #### [facility] [address] [place] [address] Side Gluer: Albert Arana MD Neutrophils/100 WBC (Bld) 62.5 % Normal [facility] Comment on above: Performed By: #### 1 08922 #### [facility] [address] [place] [address] Side Gluer: Albert Arana MD Red Blood Cell Morphology See Notes Abnormal [facility] Comment on above: Result Comment: Hypo chromia 2+ Anisocytosis 3+ Polychromasia slight Ovalocytes slight Crenated RBCs slight Teardrop cells slight Stomatocytes slight Performed By: #### 1 03318 #### [facility] [address] [place] [address] Side Gluer: Albert Arana MD Scan Differential Diff Scd Normal [facility] Comment on above: Result Comment: Slid e reviewed by technologist. Performed By: #### 1 85694 #### [facility] [address] [place] [address] Side Gluer: Albert Arana MD Consult Reporton 09-08-2024 Consult Report Patient: BRADLEY MATOS Age: 59 years Sex: Female : 1965 Associated Diagnoses: None Author: RICHARD RODRIGUEZ MD [facility] Urology Consult Note Dr. Richard Rodriguez Referring physician: Dr. Milly Ward MD Reason for consult: urinary retention/urinary incontinence Chief complaint: this 59-year-old patient who resides in a halfway was admitted in the hospital because of [...] PANTOPRAZOLE 40MG INJECTION 40 mg, IV Push, [id number] Continuous: (2) SODIUM CHLORIDE 0.9% 250 mL 250 mL, IV, 30 mL/hr SODIUM CHLORIDE 0.9% 250 mL 250 mL, IV, 30 mL/hr PRN: (17) ACETAMINOPHEN 500 MG TAB 1,000 mg 2 tabs, ORAL, DAILY ALUM-MAG SIMETHICONE 30 ML 30 mL, ORAL, [id number] APAP 325MG/OXYCODONE 5MG TAB 1 tabs, ORAL, [id number] ARTIFICIAL TEARS 15 ML 2 drops, Both Eyes, [id number] BISACODYL 10MG SUPP 10 mg 1 supp, Rectal, DAILY BISACODYL 5MG TAB 5 mg 1 tabs, ORAL, [id number] DICYCLOMINE 10MG CAPSULE 20 mg 2 caps, ORAL, S3WHUZB DOCUSATE 50MG/SENNA 8.6MG TABLET 1 tabs, ORAL, Q4MXURX DOCUSATE SODIUM 100MG CAPSULE 100 mg 1 caps, ORAL, BID LOPERAMIDE 2MG CAPSULE 4 mg 2 caps, ORAL, PRN LORATADINE 10MG TABLET 10 mg 1 tabs, ORAL, DAILY MAGNESIUM HYDROXIDE 30ML=10ML 10 mL, ORAL, DAILY METHOCARBAMOL 750MG TABLET 750 mg 1 tabs, ORAL, [id number] NYSTATIN POWDER 15GM 1 carola, Topical, TID PHOSPHO SODA ENEMA 1 bottles, Rectal, DAILY POLYETHYLENE GLYCOL 3350- 17 GM PACKET 17 g 1 packets, ORAL, DAILY PROMETHAZINE 25MG TABLET 25 mg 1 tabs, ORAL, [id number] Social & Psychosocial History Social History Alcohol [...] knee Umb (more content not included)... Normal [facility] H AND [facility] 09-08-2024 DxH Actions See Notes Abnormal [facility] Comment on above: Result Comment: Scan for RBC Morphology SNV Performed By: #### 1 [id number] ####[facility] [address]vm[address] [place] [address] Medical Director: Albert Arana MD Hematocrit (Bld) [Volume fraction] 27.0 % Low 36.0-46.0 [facility] Comment on above: Performed By: #### 1 67654 ####[facility] [address] [place] [address] Medical Director: Albert Arana MD Hemoglobin (Bld) [Mass/Vol] 8.3 g/dL Low 12.0-16.0 [facility] Comment on above: Performed By: #### 1 38155 ####[facility] [address]yh22[address] [place] [address] Medical Director: Albert Arana MD DxH Actions See Notes Abnormal [facility] Comment on above: Result Comment: Scan for RBC Morphology SNV Performed By: #### 1 96661 #### [facility] [address] [place] [address] Side Gluer: Albert Arana MD Hematocrit (Bld) [Volume fraction] 27.4 % Low 36.0-46.0 [facility] Comment on above: Performed By: #### 1 10336 #### [facility] [address] [place] [address] Side Gluer: Albert Arana MD Hemoglobin (Bld) [Mass/Vol] 8.3 g/dL Low 12.0-16.0 [facility] Comment on above: Performed By: #### 1 05910 #### [facility] [address] [place] [address] Side Gluer: Albert Arana MD HEMOon 09-08-2024 DIFF? No Normal [facility] Comment on above: Performed By: #### 1 22832 #### [facility] [address] [place] [address] Side Gluer: Albert Arana MD Nucleated RBC 0 /100WBC Normal [facility] Comment on above: Performed By: #### 1 86476 #### [facility] [address] [place] [address] Side Gluer: Albert Arana MD DxH Actions See Notes Abnormal [facility] Comment on above: Result Comment: Scan for RBC Morphology SNV Performed By: #### 1 70250 #### [facility] [address] [place] [address] Side Gluer: Albert Arana MD Erythrocyte distribution width (RBC) [Ratio] 24.3 % High 11.5-14.5 [facility] Comment on above: Performed By: #### 1 63681 #### [facility] [address] [place] [address] Side Gluer: Albert Arana MD Hematocrit (Bld) [Volume fraction] 25.9 % Low 36.0-46.0 [facility] Comment on above: Performed By: #### 1 26381 #### [facility] [address] [place] [address] Side Gluer: Albert Arana MD Hemoglobin (Bld) [Mass/Vol] 8.0 g/dL Low 12.0-16.0 [facility] Comment on above: Performed By: #### 1 57941 #### [facility] [address] [place] [address] Side Gluer: Albert Arana MD Instr WBC 4.1 Normal [facility] Comment on above: Performed By: #### 1 06755 #### [facility] [address] [place] [address] Side Gluer: Albert Arana MD MCH (RBC) [Entitic mass] 23.9 pg Low 27.0-34.0 [facility] Comment on above: Performed By: #### 1 75488 #### [facility] [address] [place] [address] Side Gluer: Albert Arana MD MCHC (RBC) [Mass/Vol] 30.9 g/dL Low 32.0-37.0 [facility] Comment on above: Performed By: #### 1 18637 #### [facility] [address] [place] [address] Side Gluer: Albert Arana MD MCV (RBC) [Entitic vol] 77.2 fL Low 80.0-100.[address] [facility] Comment on above: Performed By: #### 1 93122 #### [facility] [address] [place] [address] Side Gluer: Albert Arana MD Platelet 149 x10 Low 150-450 [facility] Comment on above: Performed By: #### 1 01019 #### [facility] [address] [place] [address] Side Gluer: Albert Arana MD Platelet mean volume (Bld) [Entitic vol] 8.5 fL Normal 7.4-10.4 [facility] Comment on above: Performed By: #### 1 [id number] #### [facility] [address] [place] [address] Side Gluer: Albert Arana MD RBC 3.35 x10 Low 4.20-5.40 [facility] Comment on above: Result Comment: Note : RBC morphology is normal unless otherwise stated. Evaluation performed only if differential is requested. Performed By: #### 1 [id number] #### [facility] [address] [place], [place] [id number] Side Gluer: Albert Arana MD WBC 4.1 x10 Low 4.5-11.0 [facility] Comment on above: Performed By: #### 1 66584 #### [facility] [address] [place], [place] [id number] Side Gluer: Albert Arana MD Nursing Clinical Noteon Nursing [...] monitor. Bed/Chair alarm on and audible. Normal [facility] Shot Peening Operator Detailson 2024 Shot Peening Operator Details Shot Peening Operator Details Entered On: 09/08/2024 3:44 EST Performed On: 09/08/2024 3:44 EST by Astrid Molina RN Shot Peening Operator Details Transport Mode Order Detail EV : Bed Isolation Precautions RTF : Obtain Consent, 09/07/2024 13:26:00 EST, Consent/Refusal for Transfusion of Blood or Blood Products Form [id number], 09/07/2024 13:26:00 EST, Completed Obtain Consent, 09/07/2024 13:24:00 EST, Obtain Blood Transfusion Consent, 09/07/2024 13:24:00 EST, Completed Obtain Consent, 09/07/2024 13:06:00 EST, Consent/Refusal for Transfusion of Blood or Blood Products Form [id number], 09/07/2024 13:06:00 EST, Completed Consult Physician, 09/07/2024 09:52:00 EST, MICHAEL DILL, RICHARD Deluna, PAM, Completed Level of Care Order, 09/04/2024 12:25:00 EST, Medical Admit as Inpatient, IV medications, trending H/H, multiple transfusions, Ordered Level of Care Order, 09/03/2024 20:38:00 EST, Observation Outpatient with Observation Services, DEISY DILL, [facility], Ordered Transfer Care of Patient to Attending, 09/03/2024 20:38:00 EST, Upon discharge from the ED, all continued medications and orders become the responsibility of the admitting/attending physician., Ordered Obtain Consent, 09/03/2024 20:37:00 EST, Consent/Refusal for Transfusion of Blood or Blood Products Form [id number], 09/03/2024 20:37:00 EST, Ordered Obtain Consent, 09/03/2024 19:26:00 EST, Obtain Blood Transfusion Consent, 09/03/2024 19:26:00 EST, Ordered Isolation Precaution Order Detail EV : NONE IV Order Detail - EV : No Oxygen Order Detail EV : No Order Detail EV : No Pacemaker Order Detail : 0 Shot Peening Operator Details Review Status : Reviewed, no changes Nurse Collects Blood Specimens : Hali Molina RN, Astrid - 09/08/2024 3:44 EST Normal [facility] Comment on above: Order Comment: Order [...] Diff Scd Lymph % 26.5 % NA [place] % 8.8 % NA Neutrophil % 62.5 % NA Eosin % 1.4 % NA Basos % 0.8 % NA Lymph Count 1.08 x1000 LOW [place] Count 0.36 x1000 NORMAL Neutrophil Count (ANC) [...] incontinence Plan current care, ua requested Normal [facility] Progress Note-Physician BRADLEY MATOS :1965 Registration [...] XM, STAT, 09/07/2024 13:24:00 EST, 1 Units [facility] ONE TIME Task(Confirm Type and Crossmatch order with Blood Bank), Confirm Type and Crossmatch order with Blood Bank, 09/07/2024 13:26:00 EST, 09/07/2024 13:26:00 EST, 09/07/2024 13:26:00 EST [facility] ONE TIME Task(Give Patient Education Titles:), Give Patient Education Titles:, 09/07/2024 13:26:00 EST, Blood Transfusion Information [facility] (Custom) and Post Transfusion Discharge Instructions [facility] (Custom), 09/07/2024 13:26:00 EST, 09/07/2024 13:26:00 EST [facility] ONE TIME Task(Order H&H), Order H&H, 09/07/2024 13:26:00 EST, If Physician order is for multi-unit Leuko Reduced PRBC transfusion, 60 mins after first unit completed, 09/07/2024 13:26:00 EST, 09/07/2024 13:26:00 EST Obtain Consent, 09/07/2024 13:24:00 EST, Obtain Blood Transfusion Consent, 09/07/2024 13:24:00 EST Obtain Consent, 09/07/2024 13:26:00 EST, Consent/Refusal for Transfusion of Blood or Blood Products Form [id number], 09/07/2024 13:26:00 EST RBC Transfusion Request Active Bleeding, 1, STAT, 09/07/2024 13:26:00 EST, Hgb less than 8g/dl or Hct less than 24%, In a pt with CAD, Unstable Angina, [place] or Cardiogenic Shock. RENAL PNL(RENAL FUNCTION PANEL), [...] oral tablet = Percocet), 1 tabs, ORAL, [id number], PRN Al hydroxide/Mg hydroxide/simethicone(M ylanta = aluminum hydroxide/magnesium hydroxide/simethicone 200 mg-200 mg-20 mg/5 mL oral susp), 30 mL, ORAL, [id number], PRN atorvastatin, 40 mg= 1 tabs, ORAL, QHS bisacodyl, 10 mg= 1 supp, Rectal, DAILY, PRN bisacodyl, 5 mg= 1 tabs, ORAL, [id number], PRN cyanocobalamin, 1000 mcg= 2 tabs, ORAL, DAILY desvenlafaxine, 100 mg= 2 tabs, ORAL, DAILY dicyclomine, 20 mg= 2 caps, ORAL, [id number], PRN docusate(docusate sodium), 100 mg= 1 caps, ORAL, BID, PRN docusate-senna(Senokot S (docu 50mg/senna 8.6mg)), 1 tabs, ORAL, [id number], PRN fluticasone nasal(fluticasone 50 mcg/inh nasal spray), 1 sprays, Nasal, BID hydrOXYzine(hydrOXYzine hydrochloride = Atarax), 25 mg= 1 tabs, ORAL, BID loperamide, 4 mg= 2 caps, ORAL, PRN, PRN loratadine, 10 mg= 1 tabs, ORAL, DAILY, PRN magnesium hydroxide(Milk of Magnesia Conc 10ml =30ml MOM), 10 mL, ORAL, DAILY, PRN methocarbamol, 750 mg= 1 tabs, ORAL, [id number], PRN nystatin topical = Mycostatin, 1 carola, Topical, TID, PRN ocular lubricant(Artificial Tears), 2 drops, Both Eyes, [id number], PRN pantoprazole(Protonix), 40 mg, IV Push, [id number] polyethylene glycol 3350(MiraLax), 17 g= 1 packets, ORAL, DAILY, PRN promethazine = Phenergan, 25 mg= 1 tabs, ORAL, [id number], PRN sodium biphosphate-sodium phosphate(Fleet Phospho Soda Enema), 1 bottles, Rectal, DAILY, PRN Sodium Chloride 0.9%(NS) 250 mL(0.9%NaCl (Normal Saline) 250 mL), 250 mL, IV Sodium Chloride 0.9%(NS) 250 mL(0.9%NaCl (Normal Saline) 250 (more content not included)... Normal [facility] RENAL PNLon 09-08-2024 Albumin [Mass/Vol] 2.5 g/dL Low 3.4-5.0 [facility] Comment on above: Performed By: #### 1 [id number] #### [facility] [address] [place] [address] 8[address]37 Side Gluer: Albert Arana MD BUN/Creat Ratio NCAL Normal [facility] Comment on above: Performed By: #### 1 [id number] #### [facility] [address] [place], [place] [address] Side Gluer: Albert Arana MD Calcium [Mass/Vol] 8.5 mg/dL Low 8.7-10.4 [facility] Comment on above: Performed By: #### 1 [id number] #### [facility] [address] [place] [address] 99172 Side Gluer: Albert Arana MD Calcium [Mass/Vol] 9.7 mg/dL Normal 8.5-10.5 [facility] Comment on above: Performed By: #### 1 60786 #### [facility] [address] [place], [place] [address] Side Gluer: Albert Arana MD Chloride [Moles/Vol] 105 mmol/L Normal 98-107 [facility] Comment on above: Performed By: #### 1 87918 #### [facility] [address] [place] [address]60 Side Gluer: Albert Arana MD CO2 [Moles/Vol] 30.0 mmol/L Normal 20.0-31.0 [facility] Comment on above: Performed By: #### 1 26969 #### [facility] [address] [place] [address] Side Gluer: Albert Arana MD Creatinine [Mass/Vol] 0.5 mg/dL Normal 0.5-0.8 [facility] Comment on above: Performed By: #### 1 22213 #### [facility] [address] [place] [address] Side Gluer: Albert Arana MD GFR AA >60 Normal [facility] Comment on above: Result Comment: Afri can Swiss GFR Calc Medical judgement is necessary to [...] for drug dosing. Performed By: #### 1 17089 #### [facility] [address] [address] Side Gluer: Albert Arana MD GFR Estimated 127 Normal [facility] Comment on above: Result Comment: The GFR is calculated and is Age, Sex, and Race adjusted. Performed By: #### 1 46387 #### [facility] [address] [place] [address]58 Side Gluer: Albert Arana MD Glomerular Filtration Rate >60 Normal [facility] Comment on above: Result Comment: Non- [...] for drug dosing. Performed By: #### 1 35261 #### [facility] [address] [place] [address] Side Gluer: Albert Arana MD Glucose [Mass/Vol] 127 mg/dL High 74-106 [facility] Comment on above: Performed By: #### 1 38289 #### [facility] [address] [place] [address] Side Gluer: Albert Arana MD Osmolality [Osmolality] 282 mosm/kg Normal 275-295 [facility] Comment on above: Performed By: #### 1 19557 #### [facility] [address] [place] [address] Side Gluer: Albert Arana MD Phosphate [Mass/Vol] 3.6 mg/dL Normal 2.0-5.1 [facility] Comment on above: Result Comment: Bloo d samples from some patients with monoclonal gammopathies may produce falsely elevated results Performed By: #### 1 16864 #### [facility] [address] [place] [address] Side Gluer: Albert Arana MD Potassium [Moles/Vol] 3.3 mmol/L Low 3.5-5.1 [facility] Comment on above: Performed By: #### 1 12568 #### [facility] [address] [place] [address] 32779 Side Gluer: Albert Arana MD Sodium [Moles/Vol] 142 mmol/L Normal 135-145 [facility] Comment on above: Performed By: #### 1 77192 #### [facility] [address] [place] [address] Side Gluer: Albert Arana MD Urea nitrogen [Mass/Vol] mg/dL Low 9-23 [facility] Comment on above: Result Comment: - Ve nipuncture should occur prior to N-Acetyl Cysteine (NAC) or Metamizole (Sulpyrine) administration due to the potential for falsely depressed results. - Blood samples from some patients with monoclonal gammopathies may produce falsely elevated results Performed By: #### 1 90074 #### [facility] [address] [place] [address] Side Gluer: Albert Arana MD UAon 09-08-2024 Appearance, U Clear Normal Clear [facility] Comment on above: Performed By: #### 1 67819 #### [facility] [address] [place] [address] Side Gluer: Albert Arana MD Bilirubin, U Negative Normal Negative [facility] Comment on above: Result Comment: Bili [place], U: Initial positive urine bilirubin results are not confirmed. Interfering substances may include elevated urobilinogen. Trace = 0.5-1.0 mg/dL Small = 2.0-4.0 mg/dL Moderate = 6.0-8.0 mg/dL Large = 10 mg/dl and greater Performed By: #### 1 67445 #### [facility] [address] [place] [address] Side Gluer: Albert Arana MD Blood, U Negative Normal Negative [facility] Comment on above: Result Comment: Bloo d, U: Trace = 0.03-0.05 mg/dL Small = 0.06-0.1 mg/dL Moderate = 0.2-0.5 mg/dL Large = 1.0 mg/dL and greater Performed By: #### 1 71687 #### [facility] [address] [place] [address] Side Gluer: Albert Arana MD Color, U Light-Yellow Normal Yellow [facility] Comment on above: Performed By: #### 1 82661 #### [facility] [address] [place] [address] Side Gluer: Albert Arana MD Glucose Qual, U Negative Normal Negative [facility] Comment on above: Performed By: #### 1 86592 #### [facility] [address] [place] [address] Side Gluer: Albert Arana MD Ketones, U Negative Normal Negative [facility] Comment on above: Performed By: #### 1 65228 #### [facility] [address] [place] [address] Side Gluer: Albert Arana MD Leukocyte Esterase, U Negative Normal Negative [facility] Comment on above: Result Comment: Leuk ocyte Esterase, U: Trace = 25 Stephani/uL Small = 75 Stephani/uL Moderate = 250 Stephani/uL Large = 500 Stephani/uL and greater Performed By: #### 1 28673 #### [facility] [address] [place], [place] [address] Side Gluer: Albert Arana MD Nitrite, U Negative Normal Negative [facility] Comment on above: Performed By: #### 1 61431 #### [facility] [address] [place], [place] [address] Side Gluer: Albert Arana MD pH, U 6.0 Normal 4.5-8.0 [facility] Comment on above: Performed By: #### 1 53130 #### [facility] [address] [place] [address] Side Gluer: Albert Arana MD Protein, U Negative Normal Negative [facility] Comment on above: Performed By: #### 1 37594 #### [facility] [address] [place] [address] Side Gluer: Albert Arana MD Specific [place], U 1.007 Normal 1.001-1.035 [facility] Comment on above: Performed By: #### 1 43793 #### [facility] [address] [place] [address] Side Gluer: Albert Arana MD U MICRO Not Indicated Normal [facility] Comment on above: Performed By: #### 1 60940 #### [facility] [address] [place] [address] Side Gluer: Albert Arana MD Urobilinogen Qual, U < 2 mg/dl Normal < 2 mg/dl [facility] Comment on above: Result Comment: Urob ilinogen, U: EU/dl and mg/dl are equivalent units. Performed By: #### 1 40823 #### [facility] [address] [place] [address] Side Gluer: Albert Arana MD ABORHon 09-07-2024 ABORH Interpretation Negative Normal [facility] Comment on above: Performed By: #### C D:[id number], CD:[id number] ####[facility] [address] [place], [place] [id number]) [phone] Director: Albert Arana MD Patient History Check Previous Hx Normal So [facility] Comment on above: Performed By: #### C D:[id number], CD:[id number] ####[facility] [address] [place], [place] [id number]) [phone] Director: Albert Arana MD VS 0.8% a cells 0 Normal [facility] Comment on above: Performed By: #### C D:[id number], CD:[id number] ####[facility] [address] [place] [address] Medical Director: Albert Arana MD VS 0.8% b cells 3+ Normal [facility] Comment on above: Performed By: #### C D:[id number], CD:[id number] ####[facility] [address] [place] [address] Medical Director: Albert Arana MD VS Anti-A Unit 4+ Normal [facility] Comment on above: Performed By: #### C D:[id number], CD:[id number] ####[facility] [address] [place] [address] Medical Director: Albert Arana MD VS Anti-B Unit 0 Normal [facility] Comment on above: Performed By: #### C D:[id number], CD:[id number] ####[facility] [address] [place] [address] Medical Director: Albert Arana MD VS Anti-D Unit 0 [facility] Comment on above: Performed By: #### C D:[id number], CD:[id number] ####[facility] [address] [place] [address] Medical Director: Albert Arana MD ABSCon 09-07-2024 ABSC Final Interp Negative [facility] Comment on above: Performed By: #### C D:[id number], CD:[id number] ####[facility] [address] [place] [address] Medical Director: Albert Arana MD Pt Hx check done? Yes [facility] Comment on above: Performed By: #### C D:[id number], CD:[id number] ####[facility] [address] [place] [address] Medical Director: Albert Arana MD VS SCI Gel 0 [facility] Comment on above: Performed By: #### C D:[id number], CD:[id number] ####[facility] [address] [place] [address] Medical Director: Albert Arana MD VS SCII Gel 0 [facility] Comment on above: Performed By: #### C D:[id number], CD:[id number] ####[facility] [address] [place] [address] Medical Director: Albert Arana MD ACETAMINOPHEN 500 [...] Redman RN - 09/07/2024 13:26 EST Normal [facility] Comment on above: Order Comment: --- At home, patient was taking medication with the following details: Special Instructions: not to exceed 3000 mg/day --- AUTO DIFFon 09-07-2024 Baso Count 0.04 x1000 Normal 0.00-0.20 [facility] Comment on above: Performed By: #### 1 00493 #### [facility] [address] [place], [place] [address] Side Gluer: Albert Arana MD Basos % 1.0 % Normal [facility] Comment on above: Performed By: #### 1 50600 #### [facility] [address] [place] [address] Side Gluer: Albert Arana MD Eos Count 0.07 x1000 Normal 0.00-0.50 [facility] Comment on above: Performed By: #### 1 67403 #### [facility] [address] [place], [place] [address] Side Gluer: Albert Arana MD Eosinophils/100 WBC (Bld) 1.6 % Normal [facility] Comment on above: Performed By: #### 1 69251 #### [facility] [address] [place] [address] Side Gluer: Albert Arana MD Lymph Count 0.84 x1000 Low 1.20-4.80 [facility] Comment on above: Performed By: #### 1 90227 #### [facility] [address] [place] [address] 58116 Side Gluer: Albert Arana MD Lymphocytes/100 WBC (Bld) 19.8 % Normal [facility] Comment on above: Performed By: #### 1 29516 #### [facility] [address] [place] [address]55 Side Gluer: Albert Arana MD [place] Count 0.34 x1000 Normal 0.10-1.00 [facility] Comment on above: Performed By: #### 1 64638 #### [facility] [address] [place] [address]2261 Side Gluer: Albert Arana MD Monocytes/100 WBC (Bld) 8.2 % Normal [facility] Comment on above: Performed By: #### 1 28272 #### [facility] [address] [place] [address]13 Side Gluer: Albert Arana MD Neutrophil Count (ANC) 2.93 x1000 Normal 1.40-8.80 So [facility] Comment on above: Performed By: #### 1 62339 #### [facility] [address] [place] [address] 27422 Side Gluer: Albert Arana MD Neutrophils/100 WBC (Bld) 69.4 % Normal [facility] Comment on above: Performed By: #### 1 97272 #### [facility] [address] [place] [address]4083 Side Gluer: Albert Arana MD Red Blood Cell Morphology See Notes Abnormal [facility] Comment on above: Result Comment: Hypo chromia 3+ Anisocytosis 3+ Poikilocytosis 1+ Polychromasia 1+ Ovalocytes 1+ Teardrop cells 1+ Performed By: #### 1 33264 #### [facility] [address] [place] [address]33 Side Gluer: Albert Arana MD Scan Differential Diff Scd Normal [facility] Comment on above: Result Comment: Larg e platelets present Slide reviewed by technologist. Performed By: #### 1 72583 #### [facility] [address] [place] [address] 13406 Side Gluer: Albert Arana MD AND [facility] 09-07-2024 DxH Actions See Notes Abnormal [facility] Comment on above: Result Comment: Scan for RBC Morphology SNV Performed By: #### 1 27627 #### [facility] [address] [place] [address] 69822 Side Gluer: Albert Arana MD Hematocrit (Bld) [Volume fraction] 25.5 % Low 36.0-46.0 [facility] Comment on above: Performed By: #### 1 75022 #### [facility] [address] [place] [address] 60335 Side Gluer: Albert Arana MD Hemoglobin (Bld) [Mass/Vol] 7.9 g/dL Low 12.0-16.0 [facility] Comment on above: Performed By: #### 1 92640 #### [facility] [address] [place] [address] 13166 Side Gluer: Albert Arana MD Dx Actions See Notes Abnormal [facility] Comment on above: Result Comment: Scan for RBC Morphology SNV Performed By: #### 1 66993 #### [facility] [address] [place] [address] 69493 Side Gluer: Albert Arana MD Hematocrit (Bld) [Volume fraction] 24.6 % Low 36.0-46.0 [facility] Comment on above: Performed By: #### 1 10619 #### [facility] [address] [place] [address] 18552 Side Gluer: Albert Arana MD Hemoglobin (Bld) [Mass/Vol] 7.7 g/dL Low 12.0-16.0 [facility] Comment on above: Performed By: #### 1 73130 #### [facility] [address] [place] [address]754 Side Gluer: Albert Arana MD DxH Actions See Notes Abnormal [facility] Comment on above: Result Comment: Scan for RBC Morphology SNV Performed By: #### 1 63946 ####[facility] [address] [place] [address] Medical Director: Albert Arana MD Hematocrit (Bld) [Volume fraction] 23.0 % Low 36.0-46.0 [facility] Comment on above: Performed By: #### 1 73560 ####[facility] [address] [place] [address]764 Medical Director: Albert Arana MD Hemoglobin (Bld) [Mass/Vol] 7.1 g/dL Low 12.0-16.0 [facility] Comment on above: Performed By: #### 1 27554 ####[facility] [address] [place] [address] 22556 Medical Director: Albert Arana MD [facility] Actions See Notes Abnormal [facility] Comment on above: Result Comment: Scan for RBC Morphology SNV Performed By: #### 1 64126 ####[facility] [address] [place] [address]796 Medical Director: Albert Arana MD Hematocrit (Bld) [Volume fraction] 23.2 % Low 36.0-46.0 [facility] Comment on above: Performed By: #### 1 72936 ####[facility] [address] [place] [address] Medical Director: Albert Arana MD Hemoglobin (Bld) [Mass/Vol] 7.0 g/dL Low 12.0-16.0 [facility] Comment on above: Performed By: #### 1 21651 ####[facility] [address] [place] [address] 50166 Medical Director: Albert Arana MD Dx Actions See Notes Abnormal [facility] Comment on above: Result Comment: Scan for RBC Morphology SNV Performed By: #### 1 89642 ####[facility] [address] [place] [id number]) [phone] Director: Albert Arana MD Hematocrit (Bld) [Volume fraction] 23.3 % Low 36.0-46.0 [facility] Comment on above: Performed By: #### 1 01787 ####[facility] [address] [place] [address]242 Medical Director: Albert Arana MD Hemoglobin (Bld) [Mass/Vol] 7.0 g/dL Low 12.0-16.0 [facility] Comment on above: Performed By: #### 1 53241 ####[facility] [address] [place] [id number]) [phone] Director: Albert Arana MD HEMOon 09-07-2024 DIFF? No Normal [facility] Comment on above: Performed By: #### 1 48943 #### [facility] [address] [place] [address] 41493 Side Gluer: Albert Arana MD Nucleated RBC 0 /100WBC Normal [facility] Comment on above: Performed By: #### 1 67158 #### [facility] [address] [place] [address] 17756 Side Gluer: Albert Arana MD [facility] Actions See Notes Abnormal [facility] Comment on above: Result Comment: Scan for RBC Morphology SNV Performed By: #### 1 63225 #### [facility] [address] [place] [address] 65827 Side Gluer: Albert Arana MD Erythrocyte distribution width (RBC) [Ratio] 24.1 % High 11.5-14.5 [facility] Comment on above: Performed By: #### 1 70162 #### [facility] [address] [place] [address] 48687 Side Gluer: Albert Arana MD Hematocrit (Bld) [Volume fraction] 23.5 % Low 36.0-46.0 [facility] Comment on above: Performed By: #### 1 13699 #### [facility] [address] [place] [address] 99523 Side Gluer: Albert Arana MD Hemoglobin (Bld) [Mass/Vol] 7.0 g/dL Low 12.0-16.0 [facility] Comment on above: Performed By: #### 1 64499 #### [facility] [address] [place] [address] 02574 Side Gluer: Albert Arana MD Instr WBC 4.2 Normal [facility] Comment on above: Performed By: #### 1 09072 #### [facility] [address] [place] [address] 86014 Side Gluer: Albert Arana MD MCH (RBC) [Entitic mass] 22.7 pg Low 27.0-34.0 [facility] Comment on above: Performed By: #### 1 67439 #### [facility] [address] [place] [address] 90119 Side Gluer: Albert Arana MD MCHC (RBC) [Mass/Vol] 29.9 g/dL Low 32.0-37.0 [facility] Comment on above: Performed By: #### 1 05905 #### [facility] [address] [place] [address] 34949 Side Gluer: Albert Arana MD MCV (RBC) [Entitic vol] 76.0 fL Low 80.0-100.[address] [facility] Comment on above: Performed By: #### 1 65057 #### [facility] [address] [place] [address] 80380 Side Gluer: Albert Arana MD Platelet 152 x10 Normal 150-450 [facility] Comment on above: Performed By: #### 1 70002 #### [facility] [address] [place] [address] 52455 Side Gluer: Albert Arana MD Platelet mean volume (Bld) [Entitic vol] 9.0 fL Normal 7.4-10.4 [facility] Comment on above: Performed By: #### 1 29593 #### [facility] [address] [place] [address] Side Gluer: Albert Arana MD RBC 3.10 x10 Low 4.20-5.40 [facility] Comment on above: Result Comment: Note : RBC morphology is normal unless otherwise stated. Evaluation performed only if differential is requested. Performed By: #### 1 12363 #### [facility] [address] [place] [address] Side Gluer: Albert Arana MD WBC 4.2 x10 Low 4.5-11.0 [facility] Comment on above: Performed By: #### 1 [id number] #### [facility] Services [address] [place] [address] Side Gluer: Albert Arana MD Nursing Clinical Noteon - Nursing Clinical Note 0945: Pt is alert and oriented x3. Able to make needs known. Pt c/o muscle spasms and request muscle relaxer. Will medicate per order. Breathing even and unlabored on room air. Lungs are diminished. Pt is incontinent of bladder. Tolerated her PO meds and diet well. Graball tinged urine noted in purewick canister. Dr [...] completed. Vitals documented. Pt tolerated well. Normal [facility] Shot Peening Operator Detailson 2023 Shot Peening Operator Details Shot Peening Operator Details Entered On: 09/07/2024 1:16 EST Performed On: 09/07/2024 1:16 EST by Byron Franklin RN Shot Peening Operator Details Transport Mode Order Detail EV : Bed Isolation Precautions RTF : Level of Care Order, 09/04/2024 12:25:00 EST, Medical Admit as Inpatient, IV medications, trending H/H, multiple transfusions, Ordered Level of Care Order, 09/03/2024 20:38:00 EST, Observation Outpatient with Observation Services, DEISY DILL, [facility], Ordered Transfer Care of Patient to Attending, 09/03/2024 20:38:00 EST, Upon discharge from the ED, all continued medications and orders become the responsibility of the admitting/attending physician., Ordered Obtain Consent, 09/03/2024 20:37:00 EST, Consent/Refusal for Transfusion of Blood or Blood Products Form [id number], 09/03/2024 20:37:00 EST, Ordered Obtain Consent, 09/03/2024 19:26:00 EST, Obtain Blood Transfusion Consent, 09/03/2024 19:26:00 EST, Ordered Isolation Precaution Order Detail EV : NONE IV Order Detail - EV : No Oxygen Order Detail EV : No Order Detail EV : No Pacemaker Order Detail : 0 Shot Peening Operator Details Review Status : Reviewed, changes made Nurse Collects Blood Specimens : Hail Franklin RN, Byron - 09/07/2024 1:16 EST Normal [facility] Comment on above: Order Comment: --- At home, patient was taking medication with the following details: Special Instructions: not to exceed 3000 mg/day --- Progress Note-Physicianon Progress Note-Physician Patient: BRADLEY MATOS Age: 59 years Sex: Female : 1965 Associated Diagnoses: None Author: BROOKLYNN DILL, [facility] Subjective clinically seems to be doing [...] COMPLEX=VENOFER 200 mg 10 mL, IV Push, [id number] PANTOPRAZOLE 40MG INJECTION 40 mg, IV Push, [id number] Continuous: (2) SODIUM CHLORIDE 0.9% 250 mL 250 mL, IV, 30 mL/hr SODIUM CHLORIDE 0.9% 250 mL 250 mL, IV, 30 mL/hr PRN: (17) ACETAMINOPHEN 500 MG TAB 1,000 mg 2 tabs, ORAL, DAILY ALUM-MAG SIMETHICONE 30 ML 30 mL, ORAL, E9HPRKX APAP 325MG/OXYCODONE 5MG TAB 1 tabs, ORAL, N3TGQPN ARTIFICIAL TEARS 15 ML 2 drops, Both Eyes, V4RLOOX BISACODYL 10MG SUPP 10 mg 1 supp, Rectal, DAILY BISACODYL 5MG TAB 5 mg 1 tabs, ORAL, E80SPTWV DICYCLOMINE 10MG CAPSULE 20 mg 2 caps, ORAL, M5YUEUO DOCUSATE 50MG/SENNA 8.6MG TABLET 1 tabs, ORAL, R8YNYBE DOCUSATE SODIUM 100MG CAPSULE 100 mg 1 caps, ORAL, BID LOPERAMIDE 2MG CAPSULE 4 mg 2 caps, ORAL, PRN LORATADINE 10MG TABLET 10 mg 1 tabs, ORAL, DAILY MAGNESIUM HYDROXIDE 30ML=10ML 10 mL, ORAL, DAILY METHOCARBAMOL 750MG TABLET 750 mg 1 tabs, ORAL, Q0BLWFF NYSTATIN POWDER 15GM 1 carola, Topical, TID PHOSPHO SODA ENEMA 1 bottles, Rectal, DAILY POLYETHYLENE GLYCOL 3350- 17 GM PACKET 17 g 1 packets, ORAL, DAILY PROMETHAZINE 25MG TABLET 25 mg 1 tabs, ORAL, A8XQPDR Objective Vital Signs (last 24 hrs) Last Charted Temp Oral 37.0 degC (SEP 07 15:24) Heart Rate Peripheral 88 bpm (SEP 07 15:24) Resp Rate 16 br/min (SEP 07 15:24) SBP 103 mmHg (SEP 07 15:24) DBP 67 mmHg (SEP 07 15:24) General: Alert and oriented. Not in acute [...] with a unit of packed cells. Normal [facility] Progress Note-Physician BRADLEY MATOS :1965 Registration Date:09/03/2024 Assessment/Plan This Visit Diagnosis Anemia D64.9 Transfusion Orders: Sodium Chloride 0.9%(NS) 250 mL(0.9%NaCl (Normal Saline) 250 mL), 250 mL, IV ABORH, STAT, 09/07/2024 13:24:00 EST ABSC, STAT, 09/07/2024 13:24:00 EST CBCWD(CBC WITH DIFF), ROUTINE, 09/07/2024 06:00:00 EST Consult Physician, 09/07/2024 09:52:00 EST, MICHAEL DILL, RICHARD R, HEMATURIA IS XM, STAT, 09/07/2024 13:24:00 EST, 1 Units [facility] ONE TIME Task(Confirm Type and Crossmatch order with Blood Bank), Confirm Type and Crossmatch order with Blood Bank, 09/07/2024 13:26:00 EST, 09/07/2024 13:26:00 EST, 09/07/2024 13:26:00 EST [facility] ONE TIME Task(Give Patient Education Titles:), Give Patient Education Titles:, 09/07/2024 13:26:00 EST, Blood Transfusion Information [facility] (Custom) and Post Transfusion Discharge Instructions [facility] (Custom), 09/07/2024 13:26:00 EST, 09/07/2024 13:26:00 EST [facility] ONE TIME Task(Order H&H), Order H&H, 09/07/2024 13:26:00 EST, If Physician order is for multi-unit Leuko Reduced PRBC transfusion, 60 mins after first unit completed, 09/07/2024 13:26:00 EST, 09/07/2024 13:26:00 EST Obtain Consent, 09/07/2024 13:24:00 EST, Obtain Blood Transfusion Consent, 09/07/2024 13:24:00 EST Obtain Consent, 09/07/2024 13:26:00 EST, Consent/Refusal for Transfusion of Blood or Blood Products Form [id number], 09/07/2024 13:26:00 EST RBC Transfusion Request Active Bleeding, 1, STAT, 09/07/2024 13:26:00 EST, Hgb less than 8g/dl or Hct less than 24%, In a pt with CAD, Unstable Angina, [place] or Cardiogenic Shock. RENAL PNL(RENAL FUNCTION PANEL), [...] oral tablet = Percocet), 1 tabs, ORAL, B2UBTDF, PRN Al hydroxide/Mg hydroxide/simethicone(M ylanta = aluminum hydroxide/magnesium hydroxide/simethicone 200 mg-200 mg-20 mg/5 mL oral susp), 30 mL, ORAL, D7NJZYP, PRN atorvastatin, 40 mg= 1 tabs, ORAL, QHS bisacodyl, 10 mg= 1 supp, Rectal, DAILY, PRN bisacodyl, 5 mg= 1 tabs, ORAL, R02KYGEO, PRN cyanocobalamin, 1000 mcg= 2 tabs, ORAL, DAILY desvenlafaxine, 100 mg= 2 tabs, ORAL, DAILY dicyclomine, 20 mg= 2 caps, ORAL, Q7GGQNH, PRN docusate(docusate sodium), 100 mg= 1 caps, ORAL, BID, PRN docusate-senna(Senokot S (docu 50mg/senna 8.6mg)), 1 tabs, ORAL, U3VONMY, PRN fluticasone nasal(fluticasone 50 mcg/inh nasal spray), 1 sprays, Nasal, BID hydrOXYzine(hydrOXYzine hydrochloride = Atarax), 25 mg= 1 tabs, ORAL, BID iron sucrose(Venofer), 200 mg= 10 mL, IV Push, I48NDEQN loperamide, 4 mg= 2 caps, ORAL, PRN, PRN loratadine, 10 mg= 1 tabs, ORAL, DAILY, PRN magnesium hydroxide(Milk of Magnesia Conc 10ml =30ml MOM), 10 mL, ORAL, DAILY, PRN methocarbamol, 750 mg= 1 tabs, ORAL, M2MDYHK, PRN nystatin topical = Mycostatin, 1 carola, Topical, TID, PRN ocular lubricant(Artificial Tears), 2 drops, Both Eyes, P9HNVCK, PRN pantoprazole(Protonix), 40 mg, IV Push, K13LKFKH polyethylene glycol 3350(MiraLax), 17 g= 1 packets, ORAL, DAILY, PRN promethazine = Phenergan, 25 mg= 1 tabs, ORAL, C2JESUC, PRN sodium biphosphate-sodium phosphate(Fleet Phospho Soda Enema), 1 bottles, Rectal, DAILY, PRN Sodium Chloride 0 (more content not included)... Normal [facility] RBC Transfusion Request Non Active Bleedingon 09-07-2024 # Units 1 Normal [facility] Comment on above: Performed By: #### 1 [id number] #### [facility] [address] [place] [address] Side Gluer: Albert Arana MD Performed By: #### 1 [id number] ####[facility] [address] [place], [place] [id number]) [phone] Director: Albert Arana MD Status of Blood/Components Blood Available Normal [facility] Comment on above: Result Comment: 08/10 14:39 [id number] Availability called to: TL on 1DOU. 09/07/2024 14:39:13 EST la Performed By: #### 1 [id number] #### [facility] [address] [place] [address] Side Gluer: Albert Arana MD Performed By: #### 1 [id number] ####[facility] [address] [place], [place] [id number]) [phone] Director: Albert Arana MD RENAL PNLon 09-07-2024 Albumin [Mass/Vol] 2.5 g/dL Low 3.4-5.0 [facility] Comment on above: Performed By: #### 1 [id number] #### [facility] [address] [place] [address] Side Gluer: Albert Arana MD Calcium [Mass/Vol] 8.4 mg/dL Low 8.7-10.4 [facility] Comment on above: Performed By: #### 1 [id number] #### [facility] [address] [place] [address] Side Gluer: Albert Arana MD Calcium [Mass/Vol] 9.6 mg/dL Normal 8.5-10.5 [facility] Comment on above: Performed By: #### 1 [id number] #### [facility] [address] [place] [address] Side Gluer: Albert Arana MD Chloride [Moles/Vol] 103 mmol/L Normal 98-107 [facility] Comment on above: Performed By: #### 1 [id number] #### [facility] [address] [place] [address] Side Gluer: Albert Arana MD CO2 [Moles/Vol] 31.0 mmol/L Normal 20.0-31.0 [facility] Comment on above: Performed By: #### 1 [id number] #### [facility] [address] [place] [address] Side Gluer: Albert Arana MD Creatinine [Mass/Vol] 0.5 mg/dL Normal 0.5-0.8 [facility] Comment on above: Performed By: #### 1 [id number] #### [facility] [address] [place] [address] Side Gluer: Albert Arana MD GFR AA >60 Normal [facility] Comment on above: Result Comment: Afri can Swiss GFR Calc Medical judgement is necessary to [...] for drug dosing. Performed By: #### 1 [id number] #### [facility] [address] [place] [address] Side Gluer: Albert Arana MD Glomerular Filtration Rate >60 Normal [facility] Comment on above: Result Comment: Non- [...] for drug dosing. Performed By: #### 1 01630 #### [facility] [address] [place] [address] Side Gluer: Albert Arana MD Glucose [Mass/Vol] 160 mg/dL High 74-106 [facility] Comment on above: Performed By: #### 1 [id number] #### [facility] [address] [place] [address] Side Gluer: Albert Arana MD Osmolality [Osmolality] 281 mosm/kg Normal 275-295 [facility] Comment on above: Performed By: #### 1 [id number] #### [facility] [address] [place] [address] Side Gluer: Albert Arana MD Phosphate [Mass/Vol] 3.6 mg/dL Normal 2.0-5.1 [facility] Comment on above: Result Comment: Bloo d samples from some patients with monoclonal gammopathies may produce falsely elevated results Performed By: #### 1 [id number] #### [facility] [address] [place] [address] Side Gluer: Albert Arana MD Potassium [Moles/Vol] 3.2 mmol/L Low 3.5-5.1 [facility] Comment on above: Performed By: #### 1 06376 #### [facility] [address] [place] [address] Side Gluer: Albert Arana MD Sodium [Moles/Vol] 140 mmol/L Normal 135-145 [facility] Comment on above: Performed By: #### 1 [id number] #### [facility] [address] [place] [address] Side Gluer: Albert Arana MD Urea nitrogen [Mass/Vol] 6 mg/dL Low 9-23 [facility] Comment on above: Result Comment: - Ve nipuncture should occur prior to N-Acetyl Cysteine (NAC) or Metamizole (Sulpyrine) administration due to the potential for falsely depressed results. - Blood samples from some patients with monoclonal gammopathies may produce falsely elevated results Performed By: #### 1 [id number] #### [facility] [address] [place] [address] Side Gluer: Albert Arana MD Urea nitrogen/Creatinine [Mass ratio] 12.0 mg/mg Normal [facility] Comment on above: Performed By: #### 1 81583 #### [facility] [address] [place] [address] Side Gluer: Albert Arana MD ACETAMINOPHEN 500 MG TABon [...] Byron Franklin RN - 09/06/2024 21:37 EST [facility] Comment on above: Order Comment: --- [...] Redman RN - 09/06/2024 15:12 EST Normal [facility] Comment on above: Order Comment: --- At home, patient was taking medication with the following details: Special Instructions: not to exceed 3000 mg/day --- CEAon 09-06-2024 CEA <0.5 Normal 0.0-2.5 [facility] Comment on above: Result Comment: Refe rence range for CEA: 0.0 - 2.5 ng/ml for non-smokers, 0.0 - 5.0 ng/ml for smokers. Testing is performed on the [employer] Analyzer. The assay is a two-site sandwich immunoassay using direct chemiluminometric technology. Results obtained with different assay methods or kits cannot be used interchangeably. For additional information go to: [email or web address] Performed By: #### 1 [id number] ####[facility] [address] [place] [address] Medical Director: Albert Arana MD CT ABD PELVIS WO IV CONTRAST on 09-06-2024 CT ABD PELVIS WO IV CONTRAST [] 09/04/2024 1:11 PM [employer] History: right sided abdominal pain;PAIN Tech notes: [...] MD 09/06/2024 07:29 AM EST RP Technologist: SK,GISEL,HS Dictated By: Thom LESTER MD Signed By: Thom LESTER MD Signed Out: 09/06/24 07:29:17 Normal [facility] ENDO Initial Data VS HW Prep [...] Harris RN - 09/06/2024 13:21 EST Normal [facility] H AND Hon 09-06-2024 DxH Actions See Notes Abnormal [facility] Comment on above: Result Comment: Scan for RBC Morphology SNV Performed By: #### 1 [id number] #### [facility] [address] [place], [place] [id number] Side Gluer: Albert Arana MD Hematocrit (Bld) [Volume fraction] 24.3 % Low 36.0-46.0 [facility] Comment on above: Performed By: #### 1 10021 #### [facility] [address] [place], [place] [address] Side Gluer: Albert Arana MD Hemoglobin (Bld) [Mass/Vol] 7.2 g/dL Low 12.0-16.0 [facility] Comment on above: Performed By: #### 1 [id number] #### [facility] [address] [place] [id number] Side Gluer: Albert Arana MD Dx Actions See Notes Abnormal [facility] Comment on above: Result Comment: Scan for RBC Morphology SNV Performed By: #### 1 [id number] #### [facility] [address] [place] [id number] Side Gluer: Albert Arana MD Hematocrit (Bld) [Volume fraction] 23.6 % Low 36.0-46.0 [facility] Comment on above: Performed By: #### 1 65918 #### [facility] [address] [place] [address] Side Gluer: Albert Arana MD Hemoglobin (Bld) [Mass/Vol] 7.0 g/dL Low 12.0-16.0 [facility] Comment on above: Performed By: #### 1 [id number] #### [facility] [address] [place] [address] Side Gluer: Albert Arana MD Nursing Clinical Noteon 08-10 Nursing Clinical Note 2008- full assessm ent and za med pass [...] in reach. bed exit alarm on. Normal [facility] Nursing Clinical Note 0940: Pt is [...] at this time in stable condition. Normal [facility] OR Nursing Record - Endoon 1 OR Nursing Record - Endo OR Nursing Record - Endo Summary Primary Physician: BROOKLYNN DILL, [facility] Finalized Date/Time: 09/06/24 15:12:13 Pt. Name: BRADLEY MATOS D.O.B./Sex: 1965 Female Med Rec #: [id number] Physician: JACINTO BARRERA MD Financial #: [id number] Pt. Type: I Room/Bed: [facility]/ Admit/Disch: 09/03/24 19:08:11 - Institution: Case Times - Endo Entry 1 Patient In Room Time 09/06/24 14:29:00 Out Room Time 09/06/24 15:12:00 Anesthesia Facility Times [place] Protocol Yes Completed Surgery Start Time 09/06/24 [...] 2 Entry 3 Case Attendee BROOKLYNN DILL, [facility] Norman RN, Herlinda Mercado RN Role Performed Surgeon Primary Scrub Primary Roll Trucker Primary Time In 09/06/24 14:29:00 09/06/24 14:29:00 09/06/24 14:29:00 Time Out 09/06/24 15:12:00 09/06/24 15:12:00 09/06/24 15:12:00 Procedure EGD(None) EGD(None) EGD(None) Last Modified By: Iam RNHerlinda RN, Emily Pobega RN, Emily 09/06/24 15:11:54 09/06/24 15:11:54 09/06/24 15:11:54 Entry 4 Case Attendee Allegra Harris RN Role Performed Roll Trucker Secondary Time In 09/06/24 14:29:00 Time Out [...] Unfinalizing Freetext Reason for Unfinalizing 09/06/24 15:12 [id number] Correct Documentation Normal [facility] Operative Reporton Operative Report Patient: BRADLEY [...] anticoagulation... Education and Follow-up: Counseled: Patient. Normal [facility] Comment on above: Order Comment: Thais knapp Attachment [id number] can be viewed in source systemMissing Attachment [id number] can be viewed in source systemMissing Attachment [id number] can be viewed in source systemMissing Attachment [id number] can be viewed in source systemMissing Attachment [id number] can be viewed in source systemMissing Attachment [id number] can be viewed in source systemMissing Attachment [id number] can be viewed in source systemMissing Attachment [id number] can be viewed in source systemMissing Attachment [id number] can be viewed in source systemMissing Attachment [id number] can be viewed in source systemMissing Attachment [id number] can be viewed in source systemMissing Attachment [id number] can be viewed in source system Result Comment: PACU Phase I - Endoon 2023 PACU Phase I - Endo PACU Phase I - Endo Summary Primary Physician: EDDY OVERTON MD Finalized Date/Time: 09/06/24 15:39:59 Pt. Name: BRADLEY MATOS Lana /Sex: 1965 Female Med Rec #: [id number] Physician: JACINTO BARRERA MD Financial #: [id number] Pt. Type: I Room/Bed: [place] [address] Admit/Disch: 09/03/24 19:08:11 - Institution: PACU I Case Times - Endo Entry 1 In PACU I 09/06/24 15:17:00 Ready for Transfer 09/06/24 15:39:00 Last Modified By: Allegra Harris RN 09/06/24 15:39:58 Finalized By: Allegra Harris RN Document Signatures Signed By: Allegra Harris RN 09/06/24 15:39 Normal [facility] Pathologist Reviewon 024 Diff Review Interp [...] with serum iron/ferritin studies are recommended. Normal [facility] Comment on above: Order Comment: Added on by Discern Expert Rule. Result Comment: DAVI COLON (Electronic Signature) Date Verified 09/06/24 Performed By: #### 1 [id number], [id number], [id number], [id number], [id number], [id number] ####[facility] [id number] [place] [address] Medical Director: Albert Arana MD Preop - Endoon 09-06-2024 Preop - Endo Preop - Endo Summary Primary Physician: BROOKLYNN DILL, [facility] Finalized Date/Time: 09/06/24 14:01:10 Pt. Name: BRADLEY MATOS./Sex: 1965 Female Med Rec #: [id number] Physician: JACINTO BARRERA MD Financial #: [id number] Pt. Type: I Room/Bed: [place] [address] Admit/Disch: 09/03/24 19:08:11 - Institution: Preop - Case Times - Endo Entry 1 Patient Arrival Time 09/06/24 13:12:00 Patient Ready for 09/06/24 14:01:00 Surgery Report Given to n/a Last Modified By: Allegra Harris RN 09/06/24 14:01:08 Finalized By: Allegra Harris RN Document Signatures Signed By: Allegra Harris RN 09/06/24 14:01 Normal [facility] Progress Note-Physicianon Progress Note-Physician BRADLEY MATOS :1965 Registration Date:09/03/2024 [...] oral tablet = Percocet), 1 tabs, ORAL, E2CBOPC, PRN Al hydroxide/Mg hydroxide/simethicone(M ylanta = aluminum hydroxide/magnesium hydroxide/simethicone 200 mg-200 mg-20 mg/5 mL oral susp), 30 mL, ORAL, U8SHICI, PRN atorvastatin, 40 mg= 1 tabs, ORAL, QHS bisacodyl, 10 mg= 1 supp, Rectal, DAILY, PRN bisacodyl, 5 mg= 1 tabs, ORAL, Z86SPHIN, PRN cyanocobalamin, 1000 mcg= 2 tabs, ORAL, DAILY desvenlafaxine, 100 mg= 2 tabs, ORAL, DAILY dicyclomine, 20 mg= 2 caps, ORAL, H1KILEP, PRN docusate(docusate sodium), 100 mg= 1 caps, ORAL, BID, PRN docusate-senna(Senokot S (docu 50mg/senna 8.6mg)), 1 tabs, ORAL, F2YQNEG, PRN fluticasone nasal(fluticasone 50 mcg/inh nasal spray), 1 sprays, Nasal, BID hydrOXYzine(hydrOXYzine hydrochloride = Atarax), 25 mg= 1 tabs, ORAL, BID iron sucrose(Venofer), 200 mg= 10 mL, IV Push, [id number] loperamide, 4 mg= 2 caps, ORAL, PRN, PRN loratadine, 10 mg= 1 tabs, ORAL, DAILY, PRN magnesium hydroxide(Milk of Magnesia Conc 10ml =30ml MOM), 10 mL, ORAL, DAILY, PRN methocarbamol, 750 mg= 1 tabs, ORAL, E7PTQSI, PRN nystatin topical = Mycostatin, 1 carola, Topical, TID, PRN ocular lubricant(Artificial Tears), 2 drops, Both Eyes, Z7IEGDV, PRN pantoprazole(Protonix), 40 mg, IV Push, L58TRXVY polyethylene glycol 3350(MiraLax), 17 g= 1 packets, ORAL, DAILY, PRN promethazine = Phenergan, 25 mg= 1 tabs, ORAL, G4FNTRG, PRN sodium biphosphate-sodium phosphate(Fleet Phospho Soda Enema), 1 bottles, Rectal, DAILY, PRN Normal [facility] Progress Note-Physician BRADLEY MATOS :1965 Registration [...] oral tablet = Percocet), 1 tabs, ORAL, P7XUNHX, PRN Al hydroxide/Mg hydroxide/simethicone(M ylanta = aluminum hydroxide/magnesium hydroxide/simethicone 200 mg-200 mg-20 mg/5 mL oral susp), 30 mL, ORAL, Q5LKEHO, PRN atorvastatin, 40 mg= 1 tabs, ORAL, QHS bisacodyl, 10 mg= 1 supp, Rectal, DAILY, PRN bisacodyl, 5 mg= 1 tabs, ORAL, N49PZAWR, PRN cyanocobalamin, 1000 mcg= 2 tabs, ORAL, DAILY desvenlafaxine, 100 mg= 2 tabs, ORAL, DAILY dicyclomine, 20 mg= 2 caps, ORAL, E3LQNLL, PRN docusate(docusate sodium), 100 mg= 1 caps, ORAL, BID, PRN docusate-senna(Senokot S (docu 50mg/senna 8.6mg)), 1 tabs, ORAL, B3LSFTY, PRN fluticasone nasal(fluticasone 50 mcg/inh nasal spray), 1 sprays, Nasal, BID hydrOXYzine(hydrOXYzine hydrochloride = Atarax), 25 mg= 1 tabs, ORAL, BID iron sucrose(Venofer), 200 mg= 10 mL, IV Push, [id number] loperamide, 4 mg= 2 caps, ORAL, PRN, PRN loratadine, 10 mg= 1 tabs, ORAL, DAILY, PRN magnesium hydroxide(Milk of Magnesia Conc 10ml =30ml MOM), 10 mL, ORAL, DAILY, PRN methocarbamol, 750 mg= 1 tabs, ORAL, Y3HLTZQ, PRN nystatin topical = Mycostatin, 1 carola, Topical, TID, PRN ocular lubricant(Artificial Tears), 2 drops, Both Eyes, O6ZAXAO, PRN pantoprazole(Protonix), 40 mg, IV Push, Z26ANSHI polyethylene glycol 3350(MiraLax), 17 g= 1 packets, ORAL, DAILY, PRN promethazine = Phenergan, 25 mg= 1 tabs, ORAL, C4BSLII, PRN sodium biphosphate-sodium phosphate(Fleet Phospho Soda Enema), [...] Lymph % 24.3 % 09/05/2024 06:08 EST [place] % 7.6 % 08/09 (more content not included)... Normal [facility] [place] Protocol/Pre-Proc TimeOut-Texton 09-06-2024 [place] Protocol/Pre-Proc TimeOut-Text [place] Protocol Entered On: 09/06/2024 13:23 EST Performed [...] OR Procedure Sedation Checklist : 09/06/2024 14:38 Herlinda Cash RN - 09/06/2024 14:44 EST OR Procedure [...] EST Final Verification Date/Time : 09/06/2024 14:38 Herlinda Cash RN - 09/06/2024 14:44 EST Verification : Patient Identified (Name and Date), Correct Procedure, All Team Members are in Agreement Laterality : N/A Herlinda Vitale RN - 09/06/2024 14:35 EST Normal [facility] ACETAMINOPHEN 500 MG TABon 1 11-06-2023 [...] Greene RN - 09/05/2024 22:04 EST Normal [facility] Comment on above: Order Comment: ---At [...] Amin RN - 09/05/2024 16:43 EST Normal [facility] Comment on above: Order Comment: --- At home, patient was taking medication with the following details: Special Instructions: not to exceed 3000 mg/day --- AUTO DIFFon 09-05-2024 Baso Count 0.04 x1000 Normal 0.00-0.20 [facility] Comment on above: Performed By: #### C [id number] #### [facility] [address] [place] [address] Side Gluer: Albert Arana MD Basos % 0.9 % Normal [facility] Comment on above: Performed By: #### C D:[id number] #### [facility] [address] [place] [address] (970) Side Gluer: Albert Arana MD Eos Count 0.07 x1000 Normal 0.00-0.50 [facility] Comment on above: Performed By: #### C [id number] #### [facility] [address] [place] [address] Side Gluer: Albert Arana MD Eosinophils/100 WBC (Bld) 1.6 % Normal [facility] Comment on above: Performed By: #### C [id number] #### [facility] [address] [place] [address] Side Gluer: Albert Arana MD Lymph Count 1.02 x1000 Low 1.20-4.80 [facility] Comment on above: Performed By: #### C D:[id number] #### [facility] [address] [place], [place] [address] Side Gluer: Albert Arana MD Lymphocytes/100 WBC (Bld) 24.3 % Normal [facility] Comment on above: Performed By: #### C [id number] #### [facility] [address] [place] [address] Side Gluer: Albert Arana MD [place] Count 0.32 x1000 Normal 0.10-1.00 [facility] Comment on above: Performed By: #### C [id number] #### [facility] [address] [place] [address] Side Gluer: Albert Arana MD Monocytes/100 WBC (Bld) 7.6 % Normal [facility] Comment on above: Performed By: #### C D:[id number] #### [facility] [address] [place] [address] Side Gluer: Albert Arana MD Neutrophil Count (ANC) 2.75 x1000 Normal 1.40-8.80 [facility] Comment on above: Performed By: #### C D:[id number] #### [facility] [address] [place] [address] Side Gluer: Albert Arana MD Neutrophils/100 WBC (Bld) 65.6 % Normal [facility] Comment on above: Performed By: #### C D:[id number] #### [facility] [address] [place] [address] Side Gluer: Albert Arana MD Red Blood Cell Morphology See Notes Abnormal [facility] Comment on above: Result Comment: Micr ocytosis 1+ Hypochromia 3+ Anisocytosis 3+ Polychromasia 1+ Performed By: #### C D:[id number] #### [facility] [address] [place] [address] Side Gluer: Albert Arana MD Scan Differential Diff Scd Normal [facility] Comment on above: Result Comment: Slid e reviewed by technologist. Performed By: #### C D:[id number] #### [facility] [address] [place] [address] Side Gluer: Albert Arana MD COMPMETAon 09-05-2024 Albumin [Mass/Vol] 2.7 g/dL Low 3.4-5.0 [facility] Comment on above: Performed By: #### C D:[id number] #### [facility] [address] [place] [address] Side Gluer: Albert Arana MD Albumin/Globulin [Mass ratio] 0.7 {ratio} Normal [facility] Comment on above: Performed By: #### C D:[id number] #### [facility] [address] [place] [address] Side Gluer: Albert Arana MD Alk Phos 76 unit/L Normal 45-117 [facility] Comment on above: Performed By: #### C D:[id number] #### [facility] [address] [place] [address] Side Gluer: Albert Arana MD Bilirubin [Mass/Vol] 1.20 mg/dL Normal 0.30-1.20 [facility] Comment on above: Result Comment: Use of this assay is not recommended for patients undergoing treatment with eltrombopag due to the potential for falsely elevated results. Performed By: #### C D:[id number] #### [facility] [address] [place], [place] [address] Side Gluer: Albert Arana MD Calcium [Mass/Vol] 8.6 mg/dL Low 8.7-10.4 [facility] Comment on above: Performed By: #### C D:[id number] #### [facility] [address] [place], [place] [address] Side Gluer: Albert Arana MD Chloride [Moles/Vol] 104 mmol/L Normal 98-107 [facility] Comment on above: Performed By: #### C D:[id number] #### [facility] [address] [place], [place] [address] Side Gluer: Albert Arana MD CO2 [Moles/Vol] 29.0 mmol/L Normal 20.0-31.0 [facility] Comment on above: Performed By: #### C D:[id number] #### [facility] [address] [place] [address] Side Gluer: Albert Arana MD Creatinine [Mass/Vol] 0.5 mg/dL Normal 0.5-0.8 [facility] Comment on above: Performed By: #### C D:[id number] #### [facility] [address] [place], [place] [address] Side Gluer: Albert Arana MD GFR AA >60 Normal [facility] Comment on above: Result Comment: Afri can Swiss GFR Calc Medical judgement is necessary to [...] for drug dosing. Performed By: #### C D:[id number] #### [facility] [address] [place] [address] Side Gluer: Albert Arana MD Globulin (S) [Mass/Vol] 3.7 g/dL Normal [facility] Comment on above: Performed By: #### C D:[id number] #### [facility] [address] [place] [address] Side Gluer: Albert Arana MD Glomerular Filtration Rate >60 Normal [facility] Comment on above: Result Comment: Non- [...] for drug dosing. Performed By: #### C D:[id number] #### [facility] [address] [place] [address] Side Gluer: Albert Arana MD Glucose [Mass/Vol] 167 mg/dL High 74-106 [facility] Comment on above: Performed By: #### C D:[id number] #### [facility] [address] [place] [address] Side Gluer: Albert Arana MD GOT 42 unit/L High 15-37 [facility] Comment on above: Performed By: #### C D:[id number] #### [facility] [address] [place] [address] Side Gluer: Albert Arana MD GPT 10 unit/L Normal 10-49 [facility] Comment on above: Performed By: #### C D:[id number] #### [facility] [address] [place] [address] 01046 Side Gluer: Albert Arana MD Osmolality [Osmolality] 283 mosm/kg Normal 275-295 [facility] Comment on above: Performed By: #### C D:[id number] #### [facility] [address] [place] [address] 78[address] Side Gluer: Albert Arana MD Potassium [Moles/Vol] 3.7 mmol/L Normal 3.5-5.1 [facility] Comment on above: Result Comment: Spec imen slightly hemolyzed. Results may be affected. Performed By: #### C D:[id number] #### [facility] [address] [place] [address] 21692 Side Gluer: Albert Arana MD Protein [Mass/Vol] 6.4 g/dL Normal 5.7-8.2 [facility] Comment on above: Result Comment: Tota l Protein results may be increased in patients receiving dextran as a blood volume assistant professor of philosophy Performed By: #### C D:[id number] #### [facility] [address] [place] [address] Side Gluer: Albert Arana MD Sodium [Moles/Vol] 141 mmol/L Normal 135-145 [facility] Comment on above: Performed By: #### C D:[id number] #### [facility] [address] [place] [address] 08449 Side Gluer: Albert Arana MD Urea nitrogen [Mass/Vol] 7 mg/dL Low 9-23 [facility] Comment on above: Result Comment: - Ve nipuncture should occur prior to N-Acetyl Cysteine (NAC) or Metamizole (Sulpyrine) administration due to the potential for falsely depressed results. - Blood samples from some patients with monoclonal gammopathies may produce falsely elevated results Performed By: #### C D:[id number] #### [facility] [address] [place] [address] Side Gluer: Albert Arana MD Urea nitrogen/Creatinine [Mass ratio] 14.0 mg/mg Normal [facility] Comment on above: Performed By: #### C D:[id number] #### [facility] [address] [place] [address] Side Gluer: Albert Arana MD AND [facility] 09-05-2024 DxH Actions See Notes Abnormal [facility] Comment on above: Result Comment: Scan for RBC Morphology SNV Performed By: #### 1 [id number] ####[facility] [address] [place] [address] Medical Director: Albert Arana MD Hematocrit (Bld) [Volume fraction] 24.4 % Low 36.0-46.0 [facility] Comment on above: Performed By: #### 1 81522 ####[facility] [address] [place] [address] Medical Director: Albert Arana MD Hemoglobin (Bld) [Mass/Vol] 7.4 g/dL Low 12.0-16.0 [facility] Comment on above: Performed By: #### 1 [id number] ####[facility] [address] [place] [address] Medical Director: Albert Arana MD Dx Actions See Notes Abnormal [facility] Comment on above: Result Comment: Scan for RBC Morphology SNV Performed By: #### 1 [id number] ####[facility] [address] [place] [address] Medical Director: Albert Arana MD Hematocrit (Bld) [Volume fraction] 26.3 % Low 36.0-46.0 [facility] Comment on above: Performed By: #### 1 51257 ####[facility] [address] [place] [address] Medical Director: Albert Arana MD Hemoglobin (Bld) [Mass/Vol] 7.9 g/dL Low 12.0-16.0 [facility] Comment on above: Performed By: #### 1 71210 ####[facility] [address] [place] [address] Medical Director: Albert Arana MD HEMOon 09-05-2024 DIFF? No Normal [facility] Comment on above: Performed By: #### 1 75753, 512400, [id number], 688562 ####[facility] [address] [place] [address] Medical Director: Albert Arana MD Nucleated RBC 0 /100WBC Normal [facility] Comment on above: Performed By: #### 1 22886, 693037, 0622125, 590283 ####[facility] [address] [place] [address] Medical Director: Albert Arana MD [facility] Actions See Notes Abnormal [facility] Comment on above: Result Comment: Scan for RBC Morphology SNV Performed By: #### 1 48548, 808432, 2248935, 162741 ####[facility] [address] [place] [address] Medical Director: Albert Arana MD Erythrocyte distribution width (RBC) [Ratio] 22.4 % High 11.5-14.5 [facility] Comment on above: Performed By: #### 1 81090, 389125, 3253749, 706199 ####[facility] [address] [place] [address] Medical Director: Albert Arana MD Hematocrit (Bld) [Volume fraction] 25.5 % Low 36.0-46.0 [facility] Comment on above: Performed By: #### 1 58201, 247535, 2232826, 398808 ####[facility] [address] [place] [address] Medical Director: Albert Arana MD Hemoglobin (Bld) [Mass/Vol] 7.6 g/dL Low 12.0-16.0 [facility] Comment on above: Performed By: #### 1 41311, 837851, 1258175, 172134 ####[facility] [address] [place], [place] [id number]) [phone] Director: Albert Arana MD Instr WBC 4.2 Normal [facility] Comment on above: Performed By: #### 1 65187, 547209, 7552722, 771553 ####[facility] [address] [place] [address] Medical Director: Albert Arana MD MCH (RBC) [Entitic mass] 22.4 pg Low 27.0-34.0 [facility] Comment on above: Performed By: #### 1 , 714019, [id number], 603926 ####[facility] [address] [place], [place] [address]) [phone] Director: Albert Arana MD MCHC (RBC) [Mass/Vol] 29.9 g/dL Low 32.0-37.0 [facility] Comment on above: Performed By: #### 1 98030, 816086, 9103249, 625086 ####[facility] [address]fkb[address] [place] [address] Medical Director: Albert Arana MD MCV (RBC) [Entitic vol] 75.0 fL Low 80.0-100.[address] [facility] Comment on above: Performed By: #### 1 54911, 786542, 4282604, 776304 ####[facility] [address] [place], [place] [address]) [phone] Director: Albert Arana MD Platelet 166 x10 Normal 150-450 [facility] Comment on above: Performed By: #### 1 88983, 354264, 2386739, 654834 ####[facility] [address] [place], [place] [address]) [phone] Director: Albert Arana MD Platelet mean volume (Bld) [Entitic vol] 8.6 fL Normal 7.4-10.4 [facility] Comment on above: Performed By: #### 1 98031, 569998, 6105634, 595767 ####[facility] [address] [place], [place] [address]) [phone] Director: Albert Arana MD RBC 3.40 x10 Low 4.20-5.40 [facility] Comment on above: Result Comment: Note : RBC morphology is normal unless otherwise stated. Evaluation performed only if differential is requested. Performed By: #### 1 37534, 617869, [id number], 140739 ####[facility] [address] [place], [place] [address]) [phone] Director: Albert Arana MD WBC 4.2 x10 Low 4.5-11.0 [facility] Comment on above: Performed By: #### 1 77089, 194582, 7729502, 265946 ####[facility] [address] [place], [place] [address]) [phone] Director: Albert Arana MD MG LEVELon 09-05-2024 Magnesium [Mass/Vol] 1.7 mg/dL Normal 1.6-2.6 [facility] Comment on above: Performed By: #### 1 92426, 168456, 7744861, 461200 ####[facility] [address] [place], [place] [id number]) [phone] Director: Albert Arana MD Nursing Clinical Noteon - Nursing Clinical Note 0830 A&O x3, denie [...] and dose refused- Dr. Overton aware. 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 Therapeutic Activities Units : 0 units OT [...] Debora Palafox - 09/05/2024 11:21 EST Normal [facility] Shot Peening Operator Detailson 2023 Shot Peening Operator Details Shot Peening Operator Details Entered On: 09/05/2024 22:18 EST Performed On: 09/05/2024 22:18 EST by Heike Greene RN Shot Peening Operator Details Transport Mode Order Detail EV : [...] Transfusion of Blood or Blood Products Form [id number], 09/03/2024 20:37:00 EST, Ordered Obtain Consent, 09/03/2024 19:26:00 EST, Obtain Blood Transfusion Consent, 09/03/2024 19:26:00 EST, Ordered Isolation Precaution Order Detail EV : NONE IV Order Detail - EV : Yes Oxygen Order Detail EV : No Order Detail EV : No Pacemaker Order Detail : 0 Shot Peening Operator Details Review Status : Reviewed, no changes Nurse Collects Blood Specimens : No Heike Greene RN - 09/05/2024 22:18 EST Normal [facility] Comment on above: Order Comment: --- At home, patient was taking medication with the following details: Special Instructions: not to exceed 3000 mg/day --- Shot Peening Operator Details Shot Peening Operator Details Entered On: 09/05/2024 0:46 EST Performed On: 09/05/2024 0:46 EST by Heike Greene RN Shot Peening Operator Details Transport Mode Order Detail EV : Bed Isolation Precautions RTF : Level of Care Order, 09/04/2024 12:25:00 EST, Medical Admit as Inpatient, IV medications, trending H/H, multiple transfusions, Ordered Consult Physician, 09/04/2024 10:32:00 EST, BROOKLYNN DILL [facility], anemia, Completed Level of Care Order, 09/03/2024 20:38:00 EST, Observation Outpatient with Observation Services, DAVID WARD MD, Ordered Transfer Care of Patient to Attending, 09/03/2024 20:38:00 EST, Upon discharge from the ED, all continued medications and orders become the responsibility of the admitting/attending physician., Ordered Obtain Consent, 09/03/2024 20:37:00 EST, Consent/Refusal for Transfusion of Blood or Blood Products Form [id number], 09/03/2024 20:37:00 EST, Ordered Obtain Consent, 09/03/2024 19:26:00 EST, Obtain Blood Transfusion Consent, 09/03/2024 19:26:00 EST, Ordered Isolation Precaution Order Detail EV : NONE IV Order Detail - EV : Yes Oxygen Order Detail EV : No Order Detail EV : No Pacemaker Order Detail : 0 Shot Peening Operator Details Review Status : Reviewed, no changes Nurse Collects Blood Specimens : Hali Greene RN, Heike - 09/05/2024 0:46 EST Normal [facility] Comment on above: Order Comment: --- At home, patient was taking medication with the following details: Special Instructions: not to exceed 3000 mg/day --- PT Acute Time Spent With Pat ient - [place] 09-05-2024 PT Acute Time Spent With Patient - Text PT Acute Time Spent With Patient Entered On: 09/05/2024 11:06 EST Performed On: 09/05/2024 10:20 EST by Alexandrea PTORIANA Lindsey Time Spent with Patient PT Evaluation Units, Low Complexity : 0 units PT Individual Eval Time, Low Complexity : 0 minutes PT Time In : 10:20 EST PT Time Out : 10:20 EST PT Total Untimed Code Treatment Minutes : 0 minutes PT Total Treatment Time Rehab : 0 minutes PMR Chart Review : Yes Alexandrea PTORIANA Lindsey - 09/05/2024 11:05 EST PT Units Lost Grid PT Units Lost #1 Reason : Missed Acute Care Therapy Session (Comment: PT referral received, chart reviewed. Pt from [facility] where she has been non-ambulatory > 3 [...] DPT, Lindsey - 09/05/2024 11:05 EST Normal [facility] Progress Note-Physicianon Progress Note-Physician Patient: BRADLEY MATOS Age: 59 years Sex: Female : 1965 Associated Diagnoses: None Author: BROOKLYNN DILL, [facility] Subjective complaining of nausea and abdominal discomfort. [...] PANTOPRAZOLE 40MG INJECTION 40 mg, IV Push, [id number] Continuous: (0) PRN: (17) ACETAMINOPHEN 500 MG TAB 1,000 mg 2 tabs, ORAL, DAILY ALUM-MAG SIMETHICONE 30 ML 30 mL, ORAL, Q0HCOLO APAP 325MG/OXYCODONE 5MG TAB 1 tabs, ORAL, [id number] ARTIFICIAL TEARS 15 ML 2 drops, Both Eyes, [id number] BISACODYL 10MG SUPP 10 mg 1 supp, Rectal, DAILY BISACODYL 5MG TAB 5 mg 1 tabs, ORAL, [id number] DICYCLOMINE 10MG CAPSULE 20 mg 2 caps, ORAL, L4JOHUS DOCUSATE 50MG/SENNA 8.6MG TABLET 1 tabs, ORAL, [id number] DOCUSATE SODIUM 100MG CAPSULE 100 mg 1 caps, ORAL, BID LOPERAMIDE 2MG CAPSULE 4 mg 2 caps, ORAL, PRN LORATADINE 10MG TABLET 10 mg 1 tabs, ORAL, DAILY MAGNESIUM HYDROXIDE 30ML=10ML 10 mL, ORAL, DAILY METHOCARBAMOL 750MG TABLET 750 mg 1 tabs, ORAL, [id number] NYSTATIN POWDER 15GM 1 carola, Topical, TID PHOSPHO SODA ENEMA 1 bottles, Rectal, DAILY POLYETHYLENE GLYCOL 3350- 17 GM PACKET 17 g 1 packets, ORAL, DAILY PROMETHAZINE 25MG TABLET 25 mg 1 tabs, ORAL, [id number] Objective Vital Signs (last 24 hrs) Last [...] the patient. Continue to follow CBC. Normal [facility] Rehabilitation Inpt - Assign ment - [place] 09-05-2024 Rehabilitation Inpt - Assignment - Text Rehabilitation Inpatient - Assignment Entered On: 09/05/2024 13:33 EST Performed On: 09/05/2024 13:33 EST by Debora Palafox Rehabilitation Inpatient - Assignment Occupational Therapy : Michelle Oconnell Kathryn E - 09/05/2024 13:33 EST Normal [facility] Rehabilitation Inpt - Assignment - Text Rehabilitation Inpatient - Assignment Entered On: 09/05/2024 7:18 EST Performed On: 09/05/2024 7:18 EST by Alexandrea PT, DPTDede Rehabilitation Inpatient - Assignment Physical Therapy : Alexandrea PT, DPT, Dede Lechuga PT, DPTDede - 09/05/2024 7:18 EST Normal [facility] Comment on above: Order Comment: --- [...] Kathryn E - 09/05/2024 7:14 EST Normal [facility] ACETAMINOPHEN 500 MG TABon 1 11-05-2023 ACETAMINOPHEN 500 MG TAB PRN Response Entered On: 09/04/2024 21:30 EST Performed On: 09/04/2024 21:30 EST by Heiek Greene RN Intervention Information: acetaminophen Performed by [...] Greene RN - 09/04/2024 21:30 EST Normal [facility] Comment on above: Order Comment: --- At home, patient was taking medication with the following details: Special Instructions: not to exceed 3000 mg/day --- Admission Assessment Adulton 09-04-2024 Admission Assessment Adult Adult Admission Data Entered On: 09/04/2024 15:46 EST Performed On: 09/04/2024 8:43 EST [facility] Patient Safety Grid ID Band on and [...] : None Abuse/Violence Concerns? : Patient denies Brennan CAIN [facility] 09/04/2024 15:43 EST Depression Screening Patient able to verbalize? : Yes Feeling Down, Depressed, Hopeless : Not at all Little Interest - Pleasure in Activities : Not at all Initial Depression Screen Score : 0 Depression Screening Score 0 : No IP Pt being evaluated or treated for BH conditions : No Brennan CAIN [facility] 09/04/2024 15:43 EST Isidra Coma Eye Opening Response [place] : Spontaneously Best Verbal Response Isidra : Oriented Best Motor Response [place] : Obeys simple commands [place] Coma Score : 15 Brennan CAIN [facility] 09/04/2024 15:43 EST Neuro Characteristics of Speech : Clear Orientation : Oriented x 3 Level of Consciousness : Alert Affect / Behavior : Appropriate, Calm, Cooperative Sensory Perception Vladimir : Slightly limited Extremity Movement : Unequal Gait : Unable to assess Aspiration Risk : None CN VII Facial Expression and Symmetry : Facial movement symmetrical Brennan CAIN [facility] 09/04/2024 15:43 EST CardioVascular Heart Rhythm : Regular Capillary Refill : Less than 2 seconds Edema : Localized Brennan CAIN [facility] 09/04/2024 15:43 EST Respiratory Respirations : Unlabored Respiratory Pattern Description : Regular Brennan CAIN [facility] 09/04/2024 15:43 EST LEO : Clear LLL : Clear RUL : Clear RML : Clear RLL : Clear Brennan CAIN [facility] 09/04/2024 15:43 EST Cough : None Brennan CAIN [facility] 09/04/2024 15:43 EST Musculoskeletal Activity Vladimir : Chairfast Mobility Vladimir : Very limited Ambulatory Devices : Wheelchair Special Orthopedic Devices : None ADLs : Moderate assist Brennan CAIN [facility] 09/04/2024 15:43 EST GI Abdomen Description : Symmetric, Rounded Abdomen Palpation : Soft Amada Amin RN 09/04/2024 15:43 EST Bowel Sounds Grid LUQ : Present RUQ : Present LLQ : Present RLQ : Present Miguel Ángelek R (more content not included)... Normal [facility] Comment on above: Order Comment: --- At home, patient was taking medication with the following details: Special Instructions: not to exceed 3000 mg/day --- Admission History Adulton Admission History Adult Patient History Model Entered On: 09/04/2024 15:49 EST Performed On: 09/04/2024 15:46 EST by Amada Amin RN General Info Preferred Verbal : Mosotho Contact Information : Daiana Matos, daughter [phone] Preferred Written : Mosotho Currently or : Not Applicable Is patient a dialysis patient? : No Amada Amin RN - 09/04/2024 15:46 EST Problem List Problem List obtained from : Patient Amada Amin RN - 09/04/2024 15:46 EST (As Of: 09/04/2024 15:49:21 EST) Problems(Active) Abnormal gait (SNOMED CT :86344334 ) Name of Problem: Abnormal gait ; Onset Date: 05/01/2015 ; Recorder: Byron Franklin RN; Confirmation: Confirmed ; Classification: Medical ; Code: [id number] ; Contributor System: MyDocTime ; Last Updated: 09/03/2024 23:01 EST ; Life Cycle Date: 09/03/2024 ; Life Cycle Status: Active ; Responsible Provider: Byron Franklin RN; Vocabulary: SNOMED CT Allergic rhinitis (SNOMED CT :565042605 ) Name of Problem: Allergic rhinitis ; Onset Date: 09/17/2018 ; Recorder: Byron Franklin RN; Confirmation: Confirmed ; Classification: Medical ; Code: [id number] ; Contributor System: MyDocTime ; Last Updated: 09/03/2024 23:02 EST ; Life Cycle Date: 09/03/2024 ; Life Cycle Status: Active ; Responsible Provider: Byron Franklin RN; Vocabulary: SNOMED CT Anxiety (SNOMED CT :16887532 ) Name of Problem: Anxiety ; Onset Date: 03/20/2022 ; Recorder: Byron Franklin RN; Confirmation: Confirmed ; Classification: Medical ; Code: [id number] ; Contributor System: MyDocTime ; Last Updated: 09/03/2024 23:02 EST ; Life Cycle Date: 09/03/2024 ; Life Cycle Status: Active ; Responsible Provider: Byron Franklin RN; Vocabulary: SNOMED CT At risk for falls (SNOMED CT :061082439 ) Name of Problem: At risk for falls ; Recorder: SYSTEM; Confirmation: Confirmed ; Classification: Nursing ; Code: 795526046 ; Last Updated: 10/19/2013 18:03 EST ; Life Cycle Date: 08/13/2012 ; Life Cycle Status: Active ; Vocabulary: SNOMED CT ; Comments: 08/13/2012 22:37 - SYSTEM Problem added automatically by system based on documentation of a admission to the hospital. Cervical radiculopathy (SNOMED CT :524465618 ) Name of Problem: Cervical radiculopathy ; Onset Date: 08/20/2013 ; Recorder: Byron Franklin RN; Confirmation: Confirmed ; Classification: Medical ; Code: 422900497 ; Contributor System: PowerChart ; Last Updated: 09/03/2024 23:02 EST ; Life Cycle Date: 09/03/2024 ; Life Cycle Status: Active ; Responsible Provider: Byron Franklin RN; Vocabulary: SNOMED CT Chest pain (SNOMED CT :16736955 ) Name of Problem: Chest pain ; Onset Date: 11/03/2015 ; Recorder: Byron Franklin RN; Confirmation: Confirmed ; Classification: Medical ; Code: 78973554 ; Contributor System: Radar NetworksChart ; Last Updated: 09/03/2024 23:02 EST ; Life Cycle Date: 09/03/2024 ; Life Cycle Status: Active ; Responsible Provider: Byron Franklin RN; Vocabulary: SNQUINN CT Chronic fatigue syndrome (SNOMED CT :78258711 ) Name of Problem: Chronic fatigue syndrome ; Recorder: Byron Franklin RN; Confirmation: Confirmed ; Classification: Medical ; Code: 39350626 ; Contributor System: MyDocTime ; Last Updated: 09/03/2024 23:01 EST ; Life Cycle Date: 09/03/2024 ; Life Cycle Status: Active ; Responsible Provider: Byron Franklin RN; Vocabulary: SNOMED CT COVID-19 (SNOMED CT :4230334458 ) Name of Problem: COVID-19 ; Onset Date: 03/09/2022 ; Recorder: Byron Franklin RN; Confirmation: Confirmed ; Classification: Medical ; Code: 9176004909 ; Contributor System: PowerChart ; Last Updated: 09/03/2024 23:01 EST ; Life Cycle Date: 09/03/2024 ; Life Cycle Status: Active ; Responsible Provider: Byron Franklin RN; Vocabulary: SNOMED CT Degenerative joint disease involving multiple joints (SNOMED CT :747849107 ) Name of Problem: Degenerative joint disease involving multiple joints ; Onset Date: 07/25/2011 ; Recorder: Byron Franklin RN; Confirmation: Confirmed ; Classification: Medical ; Code: 912525151 ; Contributor System: MyDocTime ; Last Updated: 09/03/2024 23:01 EST ; Life Cycle Date: 09/03/2024 ; Life Cycle Status: Active ; Responsible Provider: Byron Franklin RN; Vocabulary: SNOMED CT Diverticulitis (SNOMED CT :286558500 ) Name of Problem: Diverticulitis ; Onset Date: 01/12/2016 ; Recorder: Byron Franklin RN; Confirmation: Confirmed ; Classification: Medical ; Code: 520527734 ; Contributor System: MyDocTime ; Last Updated: 09/03/2024 23:01 EST ; Life Cycle Date: 09/03/2024 ; Life Cycle Status: Active ; Responsible Provider: Byron Franklin RN; Vocabulary: SNOMED CT Dizziness and giddiness (SNOMED CT :042969553 ) Name of Problem: Dizziness and giddiness ; Onset Date: 04/17/2017 ; Recorder: Byron Franklin RN; Confirmation: Confirmed ; Classification: Medical ; Code: 576754625 ; Contributor System: MyDocTime ; Last Updated: 09/03/2024 23:01 EST ; Life Cycle Date: 09/03/2024 ; Life Cycle Status: Active ; Responsible Provider: Byron Franklin RN; Vocabulary: SNOMED CT Eating disorder (SNOMED CT :668748078 ) Name of Problem: Eating (more content not included)... Normal [facility] Comment on above: Order Comment: --- At home, patient was taking medication with the following details: Special Instructions: not to exceed 3000 mg/day --- B12 FOLATEon 09-04-2024 Cobalamin (Vitamin B12) [Mass/Vol] 1470 pg/mL High 211-911 [facility] Comment on above: Performed By: #### 1 [id number] #### [facility] [address] [place] [address] Side Gluer: Albert Arana MD FOLATE 5.8 ng/mL Normal 5.4-17.5 [facility] Comment on above: Result Comment: Meth otrexate and leucovorin interfere with folate measurement because these drugs cross-react with folate binding proteins. Performed By: #### 1 [id number] #### [facility] [address] [place] [address] Side Gluer: Albert Arana MD BASICMETAon 09-04-2024 Calcium [Mass/Vol] 8.6 mg/dL Low 8.7-10.4 [facility] Comment on above: Performed By: #### C [id number] #### [facility] [address] [place] [address] Side Gluer: Albert Arana MD Chloride [Moles/Vol] 104 mmol/L Normal 98-107 [facility] Comment on above: Performed By: #### C D:[id number] #### [facility] [address] [place] [address] Side Gluer: Albert Arana MD CO2 [Moles/Vol] 30.0 mmol/L Normal 20.0-31.0 [facility] Comment on above: Performed By: #### C D:[id number] #### [facility] [address] [place] [address] Side Gluer: Albert Arana MD Creatinine [Mass/Vol] 0.5 mg/dL Normal 0.5-0.8 [facility] Comment on above: Performed By: #### C [id number] #### [facility] [address] [place] [address] Side Gluer: Albret Arana MD GFR AA >60 Normal [facility] Comment on above: Result Comment: Afri can Swiss GFR Calc Medical judgement is necessary to [...] for drug dosing. Performed By: #### C D:[id number] #### [facility] [address] [place] [address] Side Gluer: Albert Arana MD Glomerular Filtration Rate >60 Normal [facility] Comment on above: Result Comment: Non- [...] for drug dosing. Performed By: #### C D:[id number] #### [facility] [address] [place] [address]8967 Side Gluer: Albert Arana MD Glucose [Mass/Vol] 130 mg/dL High 74-106 [facility] Comment on above: Performed By: #### C D:[id number] #### [facility] [address] [place] [address] Side Gluer: Albert Arana MD Osmolality [Osmolality] 279 mosm/kg Normal 275-295 [facility] Comment on above: Performed By: #### C D:[id number] #### [facility] [address] [place] [address] Side Gluer: Albert Arana MD Potassium [Moles/Vol] 3.3 mmol/L Low 3.5-5.1 [facility] Comment on above: Performed By: #### C D:[id number] #### [facility] [address] [place] [address] Side Gluer: Albert Arana MD Sodium [Moles/Vol] 140 mmol/L Normal 135-145 [facility] Comment on above: Performed By: #### C [id number] #### [facility] [address] [place] [address]24 Side Gluer: Albert Arana MD Urea nitrogen [Mass/Vol] 7 mg/dL Low 05-31 [facility] Comment on above: Result Comment: - Ve nipuncture should occur prior to N-Acetyl Cysteine (NAC) or Metamizole (Sulpyrine) administration due to the potential for falsely depressed results. - Blood samples from some patients with monoclonal gammopathies may produce falsely elevated results Performed By: #### C D:[id number] #### [facility] [address] [place] [id number] Side Gluer: Albert Arana MD Urea nitrogen/Creatinine [Mass ratio] 14.0 mg/mg Normal [facility] Comment on above: Performed By: #### C D:[id number] #### [facility] [address] [place] [address] Side Gluer: Albert Arana MD Basic Admission Informationo 09-04-2024 Basic Admission Information Basic Admission Information [...] 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 : 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, 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 Monetary Items : Wallet Personal Devices : Glasses JamesMaurisio rizzotlin - 09/04/2024 0:10 EST Room Orientation/Facility Policy Reviewed : Yes Room Orientation/Policy Reviewed With : Patient Patient Safety : Bed / Chair Alarm, Bed in low position, Call device within reach, Fall phone circuit operator ID Band, Falling [place], ID band check, Mobility support items readily available, Night light, Non-Slip footwear, Personal items within reach, Sensory aids within reach, Upper/Half-length side-rails up, Traffic path in room free of clutter, Wheels locked Demonstrates Ability to Use Call Light Successfully : Yes Amna MaurisioNicol - 09/04/2024 0:10 EST Normal [facility] Comment on above: Order Comment: Order entered secondary to admission CBCNDon 09-04-2024 DxH Actions See Notes Abnormal [facility] Comment on above: Result Comment: Scan for RBC Morphology SNV Performed By: #### C D:[id number] #### [facility] [address] [place] [address] Side Gluer: Albert Arana MD Erythrocyte distribution width (RBC) [Ratio] 22.3 % High 11.5-14.5 [facility] Comment on above: Performed By: #### C D:[id number] #### [facility] [address] [place] [address] Side Gluer: Albert Arana MD Hematocrit (Bld) [Volume fraction] 25.9 % Low 36.0-46.0 [facility] Comment on above: Performed By: #### C D:[id number] #### [facility] [address] [place], [place] [address] Side Gluer: Albert Arana MD Hemoglobin (Bld) [Mass/Vol] 7.7 g/dL Low 12.0-16.0 [facility] Comment on above: Performed By: #### C D:[id number] #### [facility] [address] [place] [address] Side Gluer: Albert Arana MD Instr WBC ND 4.3 Normal [facility] Comment on above: Performed By: #### C D:[id number] #### [facility] [address] [place] [address]35 Side Gluer: Albert Arana MD MCH (RBC) [Entitic mass] 22.3 pg Low 27.0-34.0 [facility] Comment on above: Result Comment: REVI EWED Performed By: #### C D:[id number] #### [facility] [address] [place] [address] Side Gluer: Albert Arana MD MCHC (RBC) [Mass/Vol] 29.8 g/dL Low 32.0-37.0 [facility] Comment on above: Performed By: #### C D:[id number] #### [facility] [address] [place] [address] Side Gluer: Albert Arana MD MCV (RBC) [Entitic vol] 75.0 fL Low 80.0-100.[address] [facility] Comment on above: Performed By: #### C D:[id number] #### [facility] [address] [place] [address] Side Gluer: Albert Arana MD Platelet 174 x10 Normal 150-450 [facility] Comment on above: Performed By: #### C D:[id number] #### [facility] [address] [place] [address]69 Side Gluer: Albert Arana MD Platelet mean volume (Bld) [Entitic vol] 8.6 fL Normal 7.4-10.4 [facility] Comment on above: Performed By: #### C D:[id number] #### [facility] [address] [place] [address] Side Gluer: Albert Arana MD RBC 3.45 x10 Low 4.20-5.40 [facility] Comment on above: Result Comment: Note : RBC morphology is normal unless otherwise stated. Evaluation performed only if differential is requested. Performed By: #### C D:[id number] #### [facility] [address] [place] [address] Side Gluer: Albert Arana MD WBC 4.3 x10 Low 4.5-11.0 [facility] Comment on above: Performed By: #### C D:[id number] #### [facility] [address] [place] [address] Side Gluer: Albert Arana MD Critical Test Results-Texton 09-04-2024 [...] Franklin RN - 09/04/2024 2:01 EST Normal [facility] ED Physician Reporton 2023 ED Physician [...] Observation Outpatient with Observation Services, DEISY DILL, [facility] Assessment This Visit Diagnosis Anemia D64.9 [...] EST, [facility] Task(Give Patient Education Titles:), Give Patient Education Titles:, 09/03/2024 20:37:00 EST, Blood Transfusion Information [facility] (Custom) and Post Transfusion Discharge Instructions [facility] (Custom), 09/03/2024 20:37:00 EST, 09/03/2024 20:37:00 EST [facility] Nursing ONE TIME Task(Order H&H), Order H&H, 09/03/2024 20:37:00 EST, If Physician order is for multi-unit Leuko Reduced PRBC transfusion, 60 mins after first unit completed, 09/03/2024 20:37:00 EST, 09/03/2024 20:37:00 EST Misc Nursing ONE TIME Task(Confirm Type and Cros (more content not included)... Normal [facility] FERRITINon 09-04-2024 Ferritin [Mass/Vol] 8 ng/mL Low 10-291 [facility] Comment on above: Result Comment: Seru m ferritin values are elevated in the presence of the following conditions and do not reflect actual body iron stores: - Inflammation - Significant tissue destruction - Liver disease - Malignancies such as acute leukemia and Hodgkin?s disease - Therapy with iron supplements Performed By: #### 1 [id number] #### [facility] [address] [place] [id number] Side Gluer: Albert Arana MD AND [facility] 09-04-2024 DxH Actions See Notes Abnormal [facility] Comment on above: Result Comment: Scan for RBC Morphology SNV Performed By: #### 1 [id number] ####[facility] [id number] [place] [id number] Medical Director: Albert Arana MD Hematocrit (Bld) [Volume fraction] 23.8 % Low 36.0-46.0 [facility] Comment on above: Performed By: #### 1 [id number] ####[facility] [id number] [place] [address] Medical Director: Albert Arana MD Hemoglobin (Bld) [Mass/Vol] 7.2 g/dL Low 12.0-16.0 [facility] Comment on above: Performed By: #### 1 [id number] ####[facility] [id number] [place] [address] Medical Director: Albert Arana MD DxH Actions See Notes Abnormal [facility] Comment on above: Result Comment: Scan for RBC Morphology SNV Performed By: #### 1 [id number] #### [facility] [address] [place] [address]48 Side Gluer: Albert Arana MD Hematocrit (Bld) [Volume fraction] 25.6 % Low 36.0-46.0 [facility] Comment on above: Performed By: #### 1 [id number] #### [facility] [address] [place] [address]9588 Side Gluer: Albert Arana MD Hemoglobin (Bld) [Mass/Vol] 7.6 g/dL Low 12.0-16.0 [facility] Comment on above: Performed By: #### 1 [id number] #### [facility] [address] [place], [place] [address] Side Gluer: Albert Arana MD DxH Actions See Notes Abnormal [facility] Comment on above: Result Comment: Auto Rerun and Call Criticals Scan for RBC Morphology SNV Performed By: #### 1 [id number] #### [facility] [address] [place], [place] [address] Side Gluer: Albert Arana MD Hematocrit (Bld) [Volume fraction] 22.7 % Low 36.0-46.0 [facility] Comment on above: Performed By: #### 1 [id number] #### [facility] [address] [place], [place] [address] Side Gluer: Albert Arana MD Hemoglobin (Bld) [Mass/Vol] 6.8 g/dL Critically abnormal 12.0-16.0 [facility] Comment on above: Result Comment: Resu lts rechecked and called to JUAN MIGUEL VALERO, 09/04/2024 01:58:18 EST..tw Performed By: #### 1 [id number] #### [facility] [address] [place] [address] 41806 Side Gluer: Albert Arana MD IRON GROUPon 09-04-2024 Iron [Mass/Vol] 14 ug/dL Low 50-170 [facility] Comment on above: Result Comment: Resu lts may be inaccurate if performed within 14 days of IV iron dextran administration. Performed By: #### 1 86732 #### [facility] [address] [place], [place] [address] Side Gluer: Albert Arana MD Saturation 4.9 % Low 20.0-50.0 [facility] Comment on above: Performed By: #### 1 44183 #### [facility] [address] [place] [address] Side Gluer: Albert Arana MD TIBC 286 ug/ml Normal 250-425 [facility] Comment on above: Result Comment: Resu lts may be inaccurate if performed within 14 days of IV iron dextran administration. Performed By: #### 1 [id number] #### [facility] [address] [place] [address] Side Gluer: Albert Arana MD Nursing Clinical Noteon 08-09 Nursing Clinical Note 2229- admission or ders from dr ward. states he will take care of home meds in am. 0032- prbc transfusion complete. vss. no s/s of transfusion reaction. iv site unremarkable. h/h entered for 0130 0200- hemoglobin 6.8 after 1st unit prbc. will transfuse 2nd unit shortly 0228-2nd unit prbc started at this time. 0243- vss tolerating blood well. iv site unremarkable. no s/s of reaction 0504- 2nd unit prbc complete. pt tolerated well. vss. Normal [facility] Pharmacy Clinical Interventi ons-Texton 09-04-2024 Pharmacy [...] Location : 1DOU Medications reviewed with : [facility] order summary Adelaida Hogan RPh - 09/04/2024 10:26 EST Normal [facility] Social Work/Care Mgmt Assess ment-Texton 09-04-2024 [...] room. patient stated that she is from [facility] where she has been for over a [...] she is unhappy with the care at [facility] but she does not want to rome into a place. Patient is willing to go back to [facility] until she finds the facility that she wants and her daughter has time to do a tour and research. CM provided patient with a list of facilities for reference. CM reached out to [facility] via [email or web address], able to accept back. they may need auth, but unsure until Friday and will let CM know. A. Discharge Plan: return to [facility] - may need auth to return. [...] CAIN, Stacy - 09/04/2024 15:52 EST Normal [facility] ABO Recheckon 09-03-2024 a cells 0 [facility] Comment on above: Performed By: #### 1 04171 #### [facility] [address] [place] [address]683 Side Gluer: Albert Arana MD ABO Interp Negative [facility] Comment on above: Performed By: #### 1 77104 #### [facility] [address] [place] [address] 61791 Side Gluer: Albert Arana MD Anti-A 4+ [facility] Comment on above: Performed By: #### 1 83537 #### [facility] [address] [place] [address]5816 Side Gluer: Albert Arana MD Anti-B 0 [facility] Comment on above: Performed By: #### 1 55165 #### [facility] [address] [place] [address] 22666 Side Gluer: Albert Arana MD Anti-D 0 [facility] Comment on above: Performed By: #### 1 [id number] #### [facility] [address] [place] [address]24 Side Gluer: Albert Arana MD b cells 4+ [facility] Comment on above: Performed By: #### 1 11951 #### [facility] [address] [place] [address] 16159 Side Gluer: Albert Arana MD ABORHon 09-03-2024 ABORH Interpretation Negative Normal [facility] Comment on above: Performed By: #### C D:[id number] #### [facility] [address] [place] [address] 01462 Side Gluer: Albert Arana MD Patient History Check No Previous Hx Normal [facility] Comment on above: Result Comment: 08/09 21:00 [id number] ABO Recheck Ordered Performed By: #### C D:[id number] #### [facility] [address] [place] [address] 08626 Side Gluer: Albert Arana MD VS 0.8% a cells 0 [facility] Comment on above: Performed By: #### C D:[id number] #### [facility] [address] [place] [address] 00057 Side Gluer: Albert Arana MD VS 0.8% b cells 3+ [facility] Comment on above: Performed By: #### C D:[id number] #### [facility] [address] [place] [address] 17104 Side Gluer: Albert Arana MD VS Anti-A Unit 4+ Normal [facility] Comment on above: Performed By: #### C D:[id number] #### [facility] [address] [place] [address] 00699 Side Gluer: Albert Arana MD VS Anti-B Unit 0 Normal [facility] Comment on above: Performed By: #### C D:[id number] #### [facility] [address] [place] [address]609 Side Gluer: Albert Arana MD VS Anti-D Unit 0 Normal [facility] Comment on above: Performed By: #### C D:[id number] #### [facility] Laboratory Services [address] [place] [address] 99011 Side Gluer: Albert Arana MD ABSCon 09-03-2024 ABSC Final Interp Negative Normal [facility] Comment on above: Performed By: #### C D:[id number] #### [facility] Services [address] [place] [address] 50479 Side Gluer: Albert Arana MD Pt Hx check done? Yes Normal [facility] Comment on above: Performed By: #### C D:[id number] #### [facility] Services [address] [place] [address] 17199 Side Gluer: Albert Arana MD VS SCI Gel 0 Normal [facility] Comment on above: Performed By: #### C D:[id number] #### [facility] Laboratory Services [address] [place] [address] 10759 Side Gluer: Albert Arana MD VS SCII Gel 0 [facility] Comment on above: Performed By: #### C D:[id number] #### [facility] Laboratory Services [address] [place] [address] 05504 Side Gluer: Albert Arana MD APTTon 09-03-2024 aPTT Coag (Bld) [Time] 21.4 s Low 27.0-38.0 So [facility] Comment on above: Result Comment: APTT Interpretation: This test has not been validated to monitor heparin therapy. APTT test is used as an initial test for suspected bleeding disorder. Anti-Xa UFH test is used to monitor heparin therapy. Performed By: #### 1 99376, 646963, 863523, 5315979, 377126, 0045707 ####[facility] Laboratory [address] [place] [address] Medical Director: Albert Arana MD AUTO DIFFon 09-03-2024 Baso Count 0.18 x1000 Normal 0.00-0.20 [facility] Comment on above: Performed By: #### 1 75519, 535617, 236203, 3054627, 055606, 7116497 ####[facility] Nwsmwwbz63413 [place] [address] Medical Director: Albert Arana MD Basos % 4.2 % Normal [facility] Comment on above: Performed By: #### 1 26657, 001625, 945018, 5372683, 205566, 7327271 ####[facility] Uzfmqtth43275 [place] [address] Medical Director: Albert Arana MD Eos Count 0.05 x1000 Normal 0.00-0.50 [facility] Comment on above: Performed By: #### 1 99607, 227129, 127526, 6290692, 019668, 9165543 ####[facility] Laboratory Qswaiwxo40024 [place] [address] Medical Director: Albert Arana MD Eosinophils/100 WBC (Bld) 1.2 % Normal [facility] Comment on above: Performed By: #### 1 52872, 753525, 825277, 0891673, 407460, 0010737 ####[facility] Laboratory Niidynyo98345 [place] [address] Medical Director: Albert Arana MD Lymph Count 0.80 x1000 Low 1.20-4.80 [facility] Comment on above: Performed By: #### 1 64433, 550859, 728481, 2265201, 667101, 3540988 ####[facility] Sybjctrr91083 [place] [address] Medical Director: Albert Arana MD Lymphocytes/100 WBC (Bld) 18.1 % Normal [facility] Comment on above: Performed By: #### 1 90040, 938007, 571557, 0330355, 684961, 1762426 ####[facility] Xrhfczgi61139 [place] [address] Medical Director: Albert Arana MD [place] Count 0.38 x1000 Normal 0.10-1.00 [facility] Comment on above: Performed By: #### 1 37380, 781289, 052033, 3538840, 500515, 4716828 ####[facility] Crkgtvot48425 [place] [address] Medical Director: Albert Arana MD Monocytes/100 WBC (Bld) 8.7 % Normal S [facility] Comment on above: Performed By: #### 1 39273, 740710, 090476, 8614591, 178154, 1124950 ####[facility] Kzairtsu45699 [place] [address] Medical Director: Albert Arana MD Neutrophil Count (ANC) 3.00 x1000 Normal 1.40-8.80 So [facility] Comment on above: Performed By: #### 1 96100, 721655, 857902, 1603758, 729836, 5883645 ####[facility] Eb[address]fsfjy77[address] [place] [address] Medical Director: Albert Arana MD Neutrophils/100 WBC (Bld) 67.8 % Normal [facility] Comment on above: Performed By: #### 1 05159, 466976, 016559, 6284837, 526182, 8105025 ####[facility] Rtoaewtl14398 [place] [address] Medical Director: Albert Arana MD Red Blood Cell Morphology See Notes Abnormal [facility] Comment on above: Result Comment: Micr ocytosis 2+ Hypochromia 3+ Anisocytosis 3+ Poikilocytosis 1+ Polychromasia 1+ Ovalocytes 1+ Target Cells 1+ Basophilic Stippling 1+ Performed By: #### 1 55026, 940919, 852262, 1048850, 066958, 2249011 ####[facility] Igvaolbc60993 [place] [address] Medical Director: Albert Arana MD Scan Differential Diff Scd Normal [facility] Comment on above: Result Comment: Slid e reviewed by technologist. Performed By: #### 1 37752, 220241, 499149, 9043368, 223190, 1337503 ####[facility] [address]apybhe33256 [place] [address] Medical Director: Albert Arana MD COMPMETAon 09-03-2024 Albumin [Mass/Vol] 2.9 g/dL Low 3.4-5.0 [facility] Comment on above: Performed By: #### 1 71409, 789679, 296865, 2955653, 739612, 3483640 ####[facility] Jvhmigub07711 [place] [address] Medical Director: Albert Arana MD Albumin/Globulin [Mass ratio] 0.7 {ratio} Normal [facility] Comment on above: Performed By: #### 1 77614, 753698, 944666, 4318332, 730521, 2868338 ####[facility] Tjueozfg36625 [place] [address] Medical Director: Albert Arana MD Alk Phos 80 unit/L Normal 45-117 [facility] Comment on above: Performed By: #### 1 65767, 052028, 124668, 5557841, 200287, 8246138 ####[facility] [address]aspjba35649 [place] [address] Medical Director: Albert Arana MD Bilirubin [Mass/Vol] 1.60 mg/dL High 0.30-1.20 [facility] Comment on above: Result Comment: Use of this assay is not recommended for patients undergoing treatment with eltrombopag due to the potential for falsely elevated results. Performed By: #### 1 72799, 550052, 867926, 7735983, 019457, 8138401 ####[facility] K[address]ax[address]nb92936 [place] [address] Medical Director: Albert Arana MD Calcium [Mass/Vol] 8.5 mg/dL Low 8.7-10.4 [facility] Comment on above: Performed By: #### 1 45311, 530505, 279415, 8428099, 967617, 4616513 ####[facility] Jmmgxtll19127 [place], [place] [address]) [phone] Director: Albert Arana MD Chloride [Moles/Vol] 105 mmol/L Normal 98-107 [facility] Comment on above: Performed By: #### 1 50348, 950081, 341963, 8710164, 204419, 7954581 ####[facility] Laboratory Izstesnc67643 [place], [place] [address]) [phone] Director: Albert Arana MD CO2 [Moles/Vol] 27.0 mmol/L Normal 20.0-31.0 [facility] Comment on above: Performed By: #### 1 35117, 253895, 448055, 6512786, 894220, 9208423 ####[facility] Jfjdwmgy43047 [place] [address] Medical Director: Albert Arana MD Creatinine [Mass/Vol] 0.6 mg/dL Normal 0.5-0.8 [facility] Comment on above: Performed By: #### 1 00010, 042868, 143027, 4807613, 902096, 5181932 ####[facility] Tqowqgnz26840 [place] [address] Medical Director: Albert Arana MD GFR AA >60 Normal [facility] Comment on above: Result Comment: Afri can Swiss GFR Calc Medical judgement is necessary to [...] for drug dosing. Performed By: #### 1 89428, 401877, 377025, 5722528, 525837, 1857494 ####[facility] Atiwadtg56766 [place], [place] [address]) [phone] Director: Albert Arana MD Globulin (S) [Mass/Vol] 4.0 g/dL Normal S [facility] Comment on above: Performed By: #### 1 65718, 985969, 323593, 2028111, 223283, 2632447 ####[facility] Osjiwelv61220 [place], [place] [address]) [phone] Director: Albert Arana MD Glomerular Filtration Rate >60 Normal [facility] Comment on above: Result Comment: Non- [...] for drug dosing. Performed By: #### 1 34624, 245943, 662279, 3050350, 237356, 3288902 ####[facility] Meujjhwv87108 [place], [place] [address]) [phone] Director: Albert Arana MD Glucose [Mass/Vol] 179 mg/dL High 74-106 [facility] Comment on above: Performed By: #### 1 03149, 012254, 223120, 4111846, 954380, 7890137 ####[facility] Sonymtnp17566 [place], [place] [address]) [phone] Director: Albert Arana MD GOT 27 unit/L Normal 15-37 [facility] Comment on above: Performed By: #### 1 92283, 463158, 888454, 8606388, 719893, 7080603 ####[facility] Laboratory Astsliry27782 [place], [place] [address]) [phone] Director: Albert Arana MD GPT 9 unit/L Low 10-49 [facility] Comment on above: Performed By: #### 1 09241, 417558, 736342, 1183606, 601311, 1200215 ####[facility] Jorkfynk49259 [place] [address] Medical Director: Albert Arana MD Osmolality [Osmolality] 282 mosm/kg Normal 275-295 [facility] Comment on above: Performed By: #### 1 95832, 837927, 290257, 1219880, 592930, 9433091 ####[facility] Hjurlpvj50364 [place] [address] Medical Director: Albert Arana MD Potassium [Moles/Vol] 3.5 mmol/L Normal 3.5-5.1 [facility] Comment on above: Result Comment: Spec imen slightly hemolyzed. Results may be affected. Performed By: #### 1 32089, 746744, 937066, 2017230, 721466, 5927478 ####[facility] Dynrpeoi63604 [place] [address] Medical Director: Albert Arana MD Protein [Mass/Vol] 6.9 g/dL Normal 5.7-8.2 [facility] Comment on above: Result Comment: Tota l Protein results may be increased in patients receiving dextran as a blood volume assistant professor of philosophy Performed By: #### 1 06523, 623381, 671849, 0848553, 037203, 9894019 ####[facility] Tvcvgmpk13459 [place] [address] Medical Director: Albert Arana MD Sodium [Moles/Vol] 140 mmol/L Normal 135-145 [facility] Comment on above: Performed By: #### 1 89024, 621997, 820162, 7655262, 795084, 9379582 ####[facility] Iragcyqj75383 [place] [address] Medical Director: Albert Arana MD Urea nitrogen [Mass/Vol] 7 mg/dL Low 9-23 [facility] Comment on above: Result Comment: - Ve nipuncture should occur prior to N-Acetyl Cysteine (NAC) or Metamizole (Sulpyrine) administration due to the potential for falsely depressed results. - Blood samples from some patients with monoclonal gammopathies may produce falsely elevated results Performed By: #### 1 75159, 656458, 712980, 9886349, 003570, 3106491 ####[facility] Pbsgebfm32808 [place], [place] 2249[address] Medical Director: Albert Arana MD Urea nitrogen/Creatinine [Mass ratio] 11.7 mg/mg Normal [facility] Comment on above: Performed By: #### 1 19653, 447191, 399123, 2889735, 909715, 5215525 ####[facility] Mornfxxa14770 [place] [address] Medical Director: Albert Arana MD Critical Test Results-Texton [...] 20:22 EST Provider Informed : HOLLY DILL, JACINTO Wooten RN, Hussain - 09/03/2024 20:21 EST Normal [facility] ED Data FOOT SETTER - Text[facility] ED Data FOOT SETTER - Text ED Data FOOT SETTER Entered On: 09/03/2024 19:39 EST Performed On: 09/03/2024 19:38 EST by Hussain Wooten RN ED General Intake Information Information Given By : Patient Isidra Coma : Document Isidra Coma Scale Problem History : Document Problem [...] Hussain Wooten RN - 09/03/2024 19:38 EST [place] Coma Scale Eye Opening : Spontaneously Best Verbal Response : Oriented Best Motor Response : Obeys simple commands [place] Coma Score (Ref) : 15 Hussain Wooten RN - 09/03/2024 19:38 EST Problem History (As Of: 09/03/2024 19:39:35 EST) Problems(Active) At risk for falls (SNOMED CT :374282850 ) Name of Problem: At risk for falls ; Recorder: SYSTEM; Confirmation: Confirmed ; Classification: Nursing ; Code: 349883562 ; Last Updated: 10/19/2013 18:03 EST ; Life Cycle Date: 08/13/2012 ; Life Cycle Status: Active ; Vocabulary: SNOMED CT ; Comments: 08/13/2012 22:37 - SYSTEM Problem added automatically by system based on documentation of a admission to the hospital. Knowledge deficit (SNOMED CT :6869124114 ) Name of Problem: Knowledge deficit ; Recorder: SYSTEM; Confirmation: Confirmed ; Classification: Nursing ; Code: 6019380706 ; Last Updated: 10/19/2013 18:03 EST ; [...] PNED ; Probability: 0 ; Diagnosis Code: [id number] Procedure History ED Urinary Catheter Present on Admit to ED? : No Devices Present on Arrival To ED : None Hussain Wooten RN - 09/03/2024 19:38 EST - Procedure History (As Of: 09/03/2024 19:39:36 EST) Safety Screening Abuse/Violence Concerns? : Patient denies Does the patient have a medically restricted extremity? : Hali Wooten RN [facility] 09/03/2024 19:38 EST [email or web address] Fall Risk Assessment *Presents to ED Because of Falls : No *Age > 70 : Yes *Altered Mental Status : No *Impaired Mobility : Yes *Nursing Judgment : Yes Falls Risk Assessment : High risk for falls Fall Interventions Initiated : Hourly rounding Je CAIN [facility] 09/03/2024 19:38 EST Infection Screening Travel outside [place] within past 21 days : No Positive COVID test in the last 10 days? : No Exposure to and/or close contact with a person who has a laboratory-confirmed COVID test within the last 48 hours. : Hali Wooten RN [facility] 09/03/2024 19:38 EST Depression Screening Patient able to verbalize? : Yes Feeling Down, Depressed, Hopeless : Not at all Little Interest - Pleasure in Activities : Not at all Initial Depression Screen Score : 0 Depression Screening Score 0 : No IP Pt being evaluated or treated for BH conditions : No Je CAIN [facility] 09/03/2024 19:38 EST Social History Are you being seen for an alcohol related problem? : No Do you or one of your family members feel like you have a drinking problem? : No Je CAIN [facility] 09/03/2024 19:38 EST Social History (As Of: 09/03/2024 19:39:36 EST) Alcohol: Denies Alcohol Use (Last Updated: 11/15/2012 18:44:47 EDT by Blanka Blair RN ) Tobacco: Never smoker (Last Updated: 11/15/2012 18:44:54 EDT by Blanka Blair RN) Substance Abuse: Denies Substance Abuse (Last Updated: 11/15/2012 18:44:48 EDT by Blanka Blair RN ) Normal [facility] ED Discharge Educationon ED Discharge Education Normal So [facility] ED Emergency Severity Index Adult-Texton 09-03-2024 ED Emergency Severity Index Adult-Text MELYSSA - Adult Entered On: 09/03/2024 19:36 EST Performed On: 09/03/2024 19:36 EST by Hussain Wooten RN MELYSSA DCP GENERIC CODE Visit Reason : LOW HGB Tracking Triage Date/Time : 09/03/2024 19:36 EST Tracking Reg Status : Requested Tracking Acuity : 3H-Urgent Tracking Group : [facility] Tracking Hussain Wooten RN - 09/03/2024 19:36 EST Normal [facility] ED Patient Summaryon 024 ED Patient Summary [facility] Emergency Department Discharge Instructions [id number] [phone] (Patient Copy) Name: BRADLEY MATOS : 1965 Allergies: Nucynta; iodine; sulfa drugs; tetracycline; propofol; morphine; aspirin; Zantac; Skelaxin; Darvon Diagnosis: Anemia Visit Date: 09/03/2024 19:08:11 Current Date Time: 09/03/2024 22:36:09 Address: [address] [place] [address] Primary Care Provider: Name: EDMUNDO EVANS MD Phone: [phone] Emergency Department Care Providers: Primary Physician: DAVID WARD MD Thank you for choosing [facility] for your emergency care. You are very important to us. Our goal is to demonstrate our high quality medical care, and provide you with a very good patient experience. You may receive a survey about our service. Please take the time to complete the survey and return it so we can continue to enhance our service. Thank you again for allowing the [facility] Emergency Department to care for your medical needs. If you have questions about your care or follow up information please contact us at [phone]. Follow-Up Instructions BRADLEY MATOS has been given these follow-up instructions: Patient Education Materials BRADLEY MATOS has been given the following patient education materials: BEFORE YOU LEAVE Set up your [facility] [employer] account! [employer] is a secure, online health management tool that connects you to portions of your hospital-based electronic medical record, allowing you to see test results, manage appointments, access discharge care instructions and much more. You can access [employer] from a computer, tablet or smartphone. Enrollment/registration is required. If you do not have a [employer] account, please provide us with an email address before you leave so that we may set up an account for you. New to [employer]! You may now securely connect some of the health management apps you use (e.g., fitness trackers, dietary trackers, etc.) to your health record in [facility] [employer]. This new feature provides expanded access to your health and wellness data, which will help you and your care team make informed decisions about your health care. If you are interested in using a health management carola not currently connected to [employer], contact a Logistics Solution Manager at [phone] or [email or web address]. We will determine if the carola meets the technical requirements to connect to [facility] [employer] and assure the security of your private [...] By Mouth EVERY TWELVE HOURS SENT TO [facility] For 7 Day(s) Voltaren Topical 1% [...] TIMES A DAY WITH MEALS SENT TO [facility] For 7 Day(s) Please excuse this [...] that medica (more content not included)... Normal [facility] ED Pre-Arrival Formon 2023 ED Pre-Arrival Form Pre-Arrival Summary Name: [place] Current Date: 09/03/2024 19:09:22 EST Gender: Date of : Age: Pre-Arrival Type: EMS ETA: 09/03/2024 19:37:00 EST Primary Care Physician: Presenting Problem: LOW HGB Pre-Arrival User: Kerry Waldron RN Referring Source: Location: 1 [facility] Emergency Department [address] [place] [address] Notes: Vital Signs: Doctor Call Back: DNR Status: Miscellaneous Issues: Normal [facility] ED Progress Noteon ED Progress Note PT PRESENTS TO ED WI TH COMPLAINTS OF LOW HEMOGLOBIN FROM NURSING FACILITY BY EMS. EKG OBTAUBED. VSS. PT IS AX3 GCS 15. PT DENIES ANY SYMPTOMS AT THIS TIME. BLOOD CONSENT OBTAINED. Normal [facility] ED Triage FOOT SETTER - [facility] 09-03 ED Triage FOOT SETTER - Text ED Triage FOOT SETTER Enter ed On: 09/03/2024 19:38 EST Performed [...] Problems(Active) At risk for falls (SNOMED CT :855378647 ) Name of Problem: At risk for falls ; Recorder: SYSTEM; Confirmation: Confirmed ; Classification: Nursing ; Code: 729981704 ; Last Updated: 10/19/2013 18:03 EST ; Life Cycle Date: 08/13/2012 ; Life Cycle Status: Active ; Vocabulary: SNOMED CT ; Comments: 08/13/2012 22:37 - SYSTEM Problem added automatically by system based on documentation of a admission to the hospital. Knowledge deficit (SNOMED CT :2394769398 ) Name of Problem: Knowledge deficit ; Recorder: SYSTEM; Confirmation: Confirmed ; Classification: Nursing ; Code: 5763749603 ; Last Updated: 10/19/2013 18:03 EST ; [...] PNED ; Probability: 0 ; Diagnosis Code: [id number] Reason for Visit (As Of: 09/03/2024 19:38:19 EST) Problems(Active) At risk for falls (SNOMED CT :039939979 ) Name of Problem: At risk for falls ; Recorder: SYSTEM; Confirmation: Confirmed ; Classification: Nursing ; Code: 845199821 ; Last Updated: 10/19/2013 18:03 EST ; Life Cycle Date: 08/13/2012 ; Life Cycle Status: Active ; Vocabulary: SNOMED CT ; Comments: 08/13/2012 22:37 - SYSTEM Problem added automatically by system based on documentation of a admission to the hospital. Knowledge deficit (SNOMED CT :2631899599 ) Name of Problem: Knowledge deficit ; Recorder: SYSTEM; Confirmation: Confirmed ; Classification: Nursing ; Code: 8067746132 ; Last Updated: 10/19/2013 18:03 EST ; [...] PNED ; Probability: 0 ; Diagnosis Code: [id number] Allergies (As Of: 09/03/2024 19:38:20 EST) Allergies [...] Skelaxin ; Type: Allergy ; Updated By: Nima CAIN, Josie Franklin; Reviewed Date: 09/03/2024 19:37 E (more content not included)... Normal [facility] HEMOon 09-03-2024 DIFF? No Normal [facility] Comment on above: Performed By: #### 1 58094, 499535, 444723, 0795746, 964952, 1883482 ####[facility] [address]tnvqlgw47[address] [place] [address] Medical Director: Albert Arana MD HEM PATH REVIEW See Diff Review Interp Normal [facility] Comment on above: Performed By: #### 1 47604, 132573, 474400, 2963249, 295566, 3942395 ####[facility] [address]wpris[address] [place] [address] Medical Director: Albert Arana MD Nucleated RBC 0 /100WBC Normal [facility] Comment on above: Performed By: #### 1 80746, 553672, 191185, 4018628, 600345, 4589638 ####[facility] [address] [place] [address] Medical Director: Albert Arana MD DxH Actions See Notes Abnormal [facility] Comment on above: Result Comment: MDW for ED patients 18-89 only. Manual Rerun by Single tube mode.If MDW still invalid, result with template. Auto Rerun and Call Criticals Scan for RBC Morphology SNV Performed By: #### 1 33206, 473599, 633241, 9048147, 888923, 9767110 ####[facility] Wypteqnz03621 [place] [address] Medical Director: Albert Arana MD Erythrocyte distribution width (RBC) [Ratio] 20.5 % High 11.5-14.5 [facility] Comment on above: Performed By: #### 1 34803, 233841, 410049, 1527655, 207116, 8192457 ####[facility] [address] [place] [id number] Medical Director: Albert Arana MD Hematocrit (Bld) [Volume fraction] 21.3 % Low 36.0-46.0 [facility] Comment on above: Performed By: #### 1 05609, 351944, 687571, 1180529, 005242, 2550633 ####[facility] [address] [place] [id number]) [phone] Director: Albert Arana MD Hemoglobin (Bld) [Mass/Vol] 6.0 g/dL Critically abnormal 12.0-16.0 [facility] Comment on above: Result Comment: Resu lts rechecked and called to OR IN ER 09/03/2024 20:22:25 EST, RBR. [place] Performed By: #### 1 39614, 139313, 022182, 2639212, 795093, [id number] ####[facility] [address] [place], [place] [phone]) [phone] Director: Albert Arana MD Instr WBC 4.4 Normal [facility] Comment on above: Performed By: #### 1 92047, 414916, 327375, 3353697, 392980, 2196765 ####[facility] [address] [place] [id number]) [phone] Director: Albert Arana MD MCH (RBC) [Entitic mass] 20.2 pg Low 27.0-34.0 [facility] Comment on above: Performed By: #### 1 90315, 183967, 825363, 1348000, 864331, 3972912 ####[facility] [address] [place] [id number]) [phone] Director: Albert Arana MD MCHC (RBC) [Mass/Vol] 28.4 g/dL Low 32.0-37.0 [facility] Comment on above: Performed By: #### 1 65405, 342077, 609429, 1475323, 404598, 2555268 ####[facility] [address]fk[address] [place] [address] Medical Director: Albert Arana MD MCV (RBC) [Entitic vol] 71.0 fL Low 80.0-100.[address] [facility] Comment on above: Performed By: #### 1 52102, 444642, 984093, 5830299, 214344, 2408990 ####[facility] Ggeohrnl05765 [place] [address] Medical Director: Albert Arana MD MDW 19.76 Normal 13.98-20.00 [facility] Comment on above: Result Comment: MDW [...] risk of Sepsis. Performed By: #### 1 76675, 645417, 554801, 9003443, 676598, 1626121 ####[facility] [address]28 [place] [address] Medical Director: Albert Arana MD Platelet 169 x10 Normal 150-450 [facility] Comment on above: Performed By: #### 1 20635, 099370, 733933, 1043092, 293089, 3789287 ####[facility] [address]pj[address]54 [place] [address] Medical Director: Albert Arana MD Platelet mean volume (Bld) [Entitic vol] 8.7 fL Normal 7.4-10.4 [facility] Comment on above: Performed By: #### 1 56180, 803180, 816091, 4273423, 733508, 5075861 ####[facility] Fpbshxbr87403 [place] [address] Medical Director: Albert Arana MD RBC 3.00 x10 Low 4.20-5.40 [facility] Comment on above: Result Comment: Note : RBC morphology is normal unless otherwise stated. Evaluation performed only if differential is requested. Performed By: #### 1 85454, 027319, 789376, 3907703, 076781, 5735337 ####[facility] [address] [place] [address] [facility] MD WBC 4.4 x10 Low 4.5-11.0 [facility] Comment on above: Performed By: #### 1 78309, 655325, 984374, 7976687, 511976, 3113204 ####[facility] [address]ch[address] [place] [address] Medical Director: Albert Arana MD Shot Peening Operator Detailson 2023 Shot Peening Operator Details Shot Peening Operator Details Entered On: 09/03/2024 22:59 EST Performed On: 09/03/2024 22:59 EST by Shivam Franklin RNime Shot Peening Operator Details Transport Mode Order Detail EV : Bed Isolation Precautions RTF : Level of Care Order, 09/03/2024 20:38:00 EST, Observation Outpatient with Observation Services, DEISY DILL, [facility], Ordered Transfer Care of Patient to Attending, 09/03/2024 20:38:00 EST, Upon discharge from the ED, all continued medications and orders become the responsibility of the admitting/attending physician., Ordered Obtain Consent, 09/03/2024 20:37:00 EST, Consent/Refusal for Transfusion of Blood or Blood Products Form [id number], 09/03/2024 20:37:00 EST, Ordered Obtain Consent, 09/03/2024 19:26:00 EST, Obtain Blood Transfusion Consent, 09/03/2024 19:26:00 EST, Ordered Isolation Precaution Order Detail EV : NONE IV Order Detail - EV : Yes Oxygen Order Detail EV : No Order Detail EV : No Pacemaker Order Detail : 0 Shot Peening Operator Details Review Status : Initial Review Nurse Collects Blood Specimens : Hali Franklin RN, Byron - 09/03/2024 22:59 EST [facility] Comment on above: Order Comment: Order entered secondary to admission PT INRon 09-03-2024 INR Coag (PPP) [Relative time] 1.2 {INR} Normal [facility] Comment on above: Result Comment: INR Reference Range: Normal reference range for INR on patients not on anticoagulant therapy: 0.9-1.1 General therapeutic range for patients on anticoagulant therapy: 2.0-3.5 Performed By: #### 1 14790, 108538, 603310, 8146803, 613988, 9129055 ####[facility] [address]ok[address] [place], [place] [address] Medical Director: Albert Arana MD Protime Patient 13.1 seconds High 9.8-12.8 [facility] Comment on above: Performed By: #### 1 08635, 581053, 544899, 7528101, 990233, 8257206 ####[facility] [address] [place] [address] [id number] Medical Director: Albert Arana MD RBC Transfusion Request Haley gerber Bleedingon 09-03-2024 # Units 2 [facility] Comment on above: Performed By: #### 1 16234 #### [facility] Services [id number] [place], [place] [phone] Side Gluer: Albert Arana MD Status of Blood/Components Blood Available [facility] Comment on above: Result Comment: 08/09 21:17 [id number] Availability called to: OR in ER Performed By: #### 1 50225 #### [facility] Services [address] [place] [address] Side Gluer: Albert Arana MD Progress Noteon 11-06-2022 Progress Note Per chart review, patient currently resides in a SNF. [facility] ED NOTEon 09-10-2022 ED NOTE HNO ID: [id number] Author: Cony Gomez RN Service: ? Author [...] Pt verbalized understanding. All belongings with pt. [facility] ED NOTE HNO ID: [id number] Author: Cony Gomez RN Service: ? Author Type: Registered Nurse Type: ED Notes Filed: 05/18/2022 4:40 PM Note Text: Pt report called to SNF spoke with RN. [facility] ED NOTE HNO ID: [id number] Author: Tahmina Joseph RN Service: ? Author Type: Registered Nurse Type: ED Notes Filed: 05/18/2022 2:46 PM Note Text: Bed: ED-10 Expected date: Expected time: Means of arrival: Comments: LST 4: 57[place] [facility] [place] red raised rash on elbow [facility] ED PROV NOTEon 05-18-2022 ED PROV NOTE HNO ID: [id number] Author: José Miguel Argueta MD Service: Emergency [...] is n (more content not included)... Normal [facility] US DVT UPPER LTon 05-18-2022 DVT UPPER LT [...] and stored in a permanent archive. MQ: ANA MARÍA_1 COMPARISON: None RESULT: Imaging somewhat limited by [...] imaged segments of the left upper extremity. X Ray Developing Machine Operator: JAIMIE Transcribe Date/Time: May 18 2022 4:37P Dictated by : DORIS STONE MD This examination was interpreted and the report reviewed and electronically signed by: DORIS STONE MD on May 18 2022 4:39PM EST [id number] Normal [facility] CBC W Auto Differential pane l (Bld)on 04-15-2022 Abs Immature Gran 0.03 k/uL <0.10 k/uL [facility] Basophils (Bld) [#/Vol] 0.04 10*3/uL <0.11 k/uL [facility] Basophils/100 WBC (Bld) 0.6 % [facility] Differential cell count method Nom (Bld) Auto [facility] Eosinophils (Bld) [#/Vol] 0.12 10*3/uL <0.46 k/uL [facility] Eosinophils/100 WBC (Bld) 1.7 % [facility] Erythrocyte distribution width (RBC) [Ratio] 15.9 % High 11.5 - 15.0 % [facility] Hematocrit (Bld) [Volume fraction] 38.4 % 36.0 - 46.0 % [facility] Hemoglobin (Bld) [Mass/Vol] 12.0 g/dL 11.5 - 15.5 g/dL [facility] Immature Gran % 0.4 % [facility] Lymphocytes (Bld) [#/Vol] 1.64 10*3/uL 1.00 - 4.00 k/uL [facility] Lymphocytes/100 WBC (Bld) 23.0 % [facility] MCH (RBC) [Entitic mass] 29.1 pg 26.0 - 34.0 pg [facility] MCHC (RBC) [Mass/Vol] 31.3 g/dL 30.5 - 36.0 g/dL [facility] MCV (RBC) [Entitic vol] 93.0 fL 80.0 - 100.0 fL [facility] Monocytes (Bld) [#/Vol] 0.54 10*3/uL <0.87 k/uL [facility] Monocytes/100 WBC (Bld) 7.6 % [facility] Neutrophils (Bld) [#/Vol] 4.76 10*3/uL 1.45 - 7.50 k/uL [facility] Neutrophils/100 WBC (Bld) 66.7 % [facility] Nucleated RBC (Bld) [#/Vol] <0.01 k/uL [facility] Nucleated RBC/100 WBC (Bld) [Ratio] 0.0 /100 WBC [facility] Platelet mean volume (Bld) [Entitic vol] 10.6 fL 9.0 - 12.7 fL [facility] Platelets (Bld) [#/Vol] 249 10*3/uL 150 - 400 k/uL [facility] RBC (Bld) [#/Vol] 4.13 10*6/uL 3.90 - 5.2 0 m/uL [facility] WBC (Bld) [#/Vol] 7.13 10*3/uL 3.70 - 11.00 k/uL [facility] Basophils (Bld) [#/Vol] 0.04 10*3/uL Normal <0.11 [facility] Comment on above: Order Comment: Speci men Type: BLOOD SPECIMEN Ordering Facility: [facility] Address: [address] [place] [address] Performed By: #### 5 7021-8 #### [facility] CLIA [id number] [address] [place] [address] [facility] Basophils/100 WBC (Bld) 0.6 % Normal [facility] Comment on above: Order Comment: Speci men Type: BLOOD SPECIMEN Ordering Facility: [facility] Address: [address] [place] [address] Performed By: #### 5 7021-8 #### [facility] CLIA [id number] [address] [place] Differential cell count method Nom (Bld) Auto Normal [facility] Comment on above: Order Comment: Speci men Type: BLOOD SPECIMEN Ordering Facility: [facility] Address: [address] [place] [address] Performed By: #### 5 7021-8 #### [facility] CLIA [id number] [address] [place] [address] [place] Eosinophils (Bld) [#/Vol] 0.12 10*3/uL Normal <0.46 [facility] Comment on above: Order Comment: Speci men Type: BLOOD SPECIMEN Ordering Facility: [facility] Address: [address] [place] [address] Performed By: #### 5 7021-8 #### [facility] CLIA [id number] [address] [place] Eosinophils/100 WBC (Bld) 1.7 % Normal [facility] Comment on above: Order Comment: Speci men Type: BLOOD SPECIMEN Ordering Facility: [facility] Address: [address] [place] [address] Performed By: #### 5 7021-8 #### [facility] CLIA [id number] [address] [place] Erythrocyte distribution width (RBC) [Ratio] 15.9 % High 11.5-15.0 [facility] Comment on above: Order Comment: Speci men Type: BLOOD SPECIMEN Ordering Facility: [facility] Address: [address] [place] [address] Performed By: #### 5 7021-8 #### [facility] CLIA [id number] [address] [place] Hematocrit (Bld) [Volume fraction] 38.4 % Normal 36.0-46.0 [facility] Comment on above: Order Comment: Speci men Type: BLOOD SPECIMEN Ordering Facility: [facility] Address: [address] [place] [address] Performed By: #### 5 7021-8 #### [facility] CLIA [id number] [address] Hemoglobin (Bld) [Mass/Vol] 12.0 g/dL Normal 11.5-15.5 [facility] Comment on above: Order Comment: Speci men Type: BLOOD SPECIMEN Ordering Facility: [facility] Address: [address] [place] [address] Performed By: #### 5 7021-8 #### [facility] CLIA [id number] [address] [place] IMMATURE GRAN % 0.4 % Normal [facility] Comment on above: Order Comment: Speci men Type: BLOOD SPECIMEN Ordering Facility: [facility] Address: [address] [place] [address] Performed By: #### 5 7021-8 #### [facility] CLIA [id number] [address] [place] IMMATURE GRAN ABS 0.03 k/uL Normal <0.[address] [facility] Comment on above: Order Comment: Speci men Type: BLOOD SPECIMEN Ordering Facility: [facility] Address: [address] [place] [address] Performed By: #### 5 7021-8 #### [facility] CLIA [id number] [address] [place] Lymphocytes (Bld) [#/Vol] 1.64 10*3/uL Normal 1.00-4.00 [facility] Comment on above: Order Comment: Speci men Type: BLOOD SPECIMEN Ordering Facility: [facility] Address: [address] [place] [address] Performed By: #### 5 7021-8 #### [facility] CLIA [id number] [address] Lymphocytes/100 WBC (Bld) 23.0 % Normal [facility] Comment on above: Order Comment: Speci men Type: BLOOD SPECIMEN Ordering Facility: [facility] Address: [address] [place] [address] Performed By: #### 5 7021-8 #### [facility] CLIA [id number] [address] MCH (RBC) [Entitic mass] 29.1 pg Normal 26.0-34.0 [facility] Comment on above: Order Comment: Speci men Type: BLOOD SPECIMEN Ordering Facility: [facility] Address: [address] [place] [address] Performed By: #### 5 7021-8 #### [facility] CLIA [id number] [address] [place] [address] [place] MCHC (RBC) [Mass/Vol] 31.3 g/dL Normal 30.5-36.0 [facility] Comment on above: Order Comment: Speci men Type: BLOOD SPECIMEN Ordering Facility: [facility] Address: [address] [place] [address] Performed By: #### 5 7021-8 #### [facility] CLIA [id number] [address] MCV (RBC) [Entitic vol] 93.0 fL Normal 80.0-100.0 [facility] Comment on above: Order Comment: Speci men Type: BLOOD SPECIMEN Ordering Facility: [facility] Address: [address] [place] [address] Performed By: #### 5 7021-8 #### [facility] CLIA [id number] [address] [place] Monocytes (Bld) [#/Vol] 0.54 10*3/uL Normal <0.87 [facility] Comment on above: Order Comment: Speci men Type: BLOOD SPECIMEN Ordering Facility: [facility] Address: [address] [place] [address] Performed By: #### 5 7021-8 #### [facility] CLIA [id number] [address] Monocytes/100 WBC (Bld) 7.6 % Normal C [facility] Comment on above: Order Comment: Speci men Type: BLOOD SPECIMEN Ordering Facility: [facility] Address: [address] [place] [address] Performed By: #### 5 7021-8 #### [facility] CLIA [id number] [address] [place] [address] [place] Neutrophils (Bld) [#/Vol] 4.76 10*3/uL Normal 1.45-7.50 [facility] Comment on above: Order Comment: Speci men Type: BLOOD SPECIMEN Ordering Facility: [facility] Address: [address] [place] [address] Performed By: #### 5 7021-8 #### [facility] CLIA [id number] [address] [place] Neutrophils/100 WBC (Bld) 66.7 % Normal [facility] Comment on above: Order Comment: Speci men Type: BLOOD SPECIMEN Ordering Facility: [facility] Address: [address] [place] [address] Performed By: #### 5 7021-8 #### [facility] CLIA [id number] [address] [place] [address] [place] Nucleated RBC (Bld) [#/Vol] 10*3/uL Normal <0.01 [facility] Comment on above: Order Comment: Speci men Type: BLOOD SPECIMEN Ordering Facility[facility] Address: [address] [place] [address] Performed By: #### 5 7021-8 #### [facility] CLIA [id number] [address] [place] Nucleated RBC/100 WBC (Bld) [Ratio] 0.0 /100 WBC Normal [facility] Comment on above: Order Comment: Speci men Type: BLOOD SPECIMEN Ordering Facility[facility] Address: [address] [place] [address] Performed By: #### 5 7021-8 #### [facility] CLIA [id number] [address] [place] [address] [place] Platelet mean volume (Bld) [Entitic vol] 10.6 fL Normal 9.0-12.7 [facility] Comment on above: Order Comment: Speci men Type: BLOOD SPECIMEN Ordering Facility[facility] Address: [address] [place] [address] Performed By: #### 5 7021-8 #### [facility] CLIA [id number] [address] [place] [address] [place] Platelets (Bld) [#/Vol] 249 10*3/uL Normal 150-400 [facility] Comment on above: Order Comment: Speci men Type: BLOOD SPECIMEN Ordering Facility: [facility] Address: [address] [place] [address] Performed By: #### 5 7021-8 #### [facility] CLIA [id number] [address] [place] [address] [place] RBC (Bld) [#/Vol] 4.13 10*6/uL Normal 3.90-5.20 [facility] Comment on above: Order Comment: Speci men Type: BLOOD SPECIMEN Ordering Facility: [facility] Address: [address] [place] [address] Performed By: #### 5 7021-8 #### [facility] CLIA [id number] [address] [place] [address] [place] WBC (Bld) [#/Vol] 7.13 10*3/uL Normal 3.70-11.00 [facility] Comment on above: Order Comment: Speci men Type: BLOOD SPECIMEN Ordering Facility: [facility] Address: [address] [place] [address] Performed By: #### 5 7021-8 #### [facility] CLIA [id number] [address] [place] [address] [place] Comprehensive metabolic 2000 panelon 04-15-2022 Albumin [Mass/Vol] 3.8 g/dL Low 3.9 - 4.9 g/dL [facility] ALP [Catalytic activity/Vol] 78 U/L 34 - 123 U/L [facility] ALT [Catalytic activity/Vol] 13 U/L 7 - 38 U/L [facility] Anion gap [Moles/Vol] 10 mmol/L 9 - 18 mmol/L [facility] AST [Catalytic activity/Vol] 35 U/L 13 - 35 U/L [facility] Bilirubin [Mass/Vol] 0.8 mg/dL 0.2 - 1 .3 mg/dL [facility] Calcium [Mass/Vol] 9.7 mg/dL 8.5 - 10. 2 mg/dL [facility] Chloride [Moles/Vol] 103 mmol/L 97 - 10 5 mmol/L [facility] CO2 [Moles/Vol] 29 mmol/L 22 - 30 mmol/L [facility] Creatinine [Mass/Vol] 0.77 mg/dL 0.58 - 0.96 mg/dL [facility] Estimated Glomerular Filtration Rate 92 mL/min/1.73m >=60 mL/min/1.73 m [facility] Glucose [Mass/Vol] 125 mg/dL High 74 - 99 mg/dL [facility] Potassium [Moles/Vol] 4.0 mmol/L 3.7 - 5.1 mmol/L [facility] Protein [Mass/Vol] 6.8 g/dL 6.3 - 8.0 g/dL [facility] Sodium [Moles/Vol] 142 mmol/L 136 - 144 mmol/L [facility] Urea nitrogen [Mass/Vol] 9 mg/dL 7 - 21 mg/dL [facility] Albumin [Mass/Vol] 3.8 g/dL Low 3.9-4.9 [facility] Comment on above: Order Comment: Speci men Type: BLOOD SPECIMEN Ordering Facility[facility] Address: [address] [place] [address] Performed By: #### 2 4323-8 #### [facility] CLIA [id number] [address] ALP [Catalytic activity/Vol] 78 U/L Normal 34-123 [facility] Comment on above: Order Comment: Speci men Type: BLOOD SPECIMEN Ordering Facility[facility] Address: [address] [place] [address] Performed By: #### 2 4323-8 #### [facility] CLIA [id number] [address] OF [facility] ALT [Catalytic activity/Vol] 13 U/L Normal 7-38 [facility] Comment on above: Order Comment: Speci men Type: BLOOD SPECIMEN Ordering Facility[facility] Address: [address] [place] [address] Performed By: #### 2 4323-8 #### [facility] CLIA [id number] [address] [place] [address] [place] Anion gap [Moles/Vol] 10 mmol/L Normal 9-18 [facility] Comment on above: Order Comment: Speci men Type: BLOOD SPECIMEN Ordering Facility: [facility] Address: [address] [place] [address] Performed By: #### 2 4323-8 #### [facility] CLIA [id number] [address] [place] [address] [place] AST [Catalytic activity/Vol] 35 U/L Normal 13-35 [facility] Comment on above: Order Comment: Speci men Type: BLOOD SPECIMEN Ordering Facility[facility] Address: [address] [place] [address] Performed By: #### 2 4323-8 #### [facility] CLIA [id number] [address] [place] [address] [place] Bilirubin [Mass/Vol] 0.8 mg/dL Normal 0.2-1.3 [facility] Comment on above: Order Comment: Speci men Type: BLOOD SPECIMEN Ordering Facility[facility] Address: [address] [place] [address] Performed By: #### 2 4323-8 #### [facility] CLIA [id number] [address] [place] [address] [place] Calcium [Mass/Vol] 9.7 mg/dL Normal 8.5-10.2 [facility] Comment on above: Order Comment: Speci men Type: BLOOD SPECIMEN Ordering Facility[facility] Address: [address] [place] [address] Performed By: #### 2 4323-8 #### [facility] CLIA [id number] [address] [place] [address] [place] Chloride [Moles/Vol] 103 mmol/L Normal 97-105 [facility] Comment on above: Order Comment: Speci men Type: BLOOD SPECIMEN Ordering Facility[facility] Address: [address] [place] [address] Performed By: #### 2 4323-8 #### [facility] CLIA [id number] [address] [place] [address] [place] CO2 [Moles/Vol] 29 mmol/L Normal 22-30 [facility] Comment on above: Order Comment: Speci men Type: BLOOD SPECIMEN Ordering Facility[facility] Address: [address] [place] [address] Performed By: #### 2 4323-8 #### [facility] CLIA [id number] [address] [place] Creatinine [Mass/Vol] 0.77 mg/dL Normal 0.58-0.96 [facility] Comment on above: Order Comment: Speci men Type: BLOOD SPECIMEN Ordering Facility[facility] Address: [address] [place] [address] Performed By: #### 2 4323-8 #### [facility] CLIA [id number] [address] [place] [facility] ESTIMATED GLOMERULAR FILTRATION RATE 92 mL/min/1.73m??? Normal >=60 [facility] Comment on above: Order Comment: Speci men Type: BLOOD SPECIMEN Ordering Facility[facility] Address: [address] [place] [address] Result Comment: Cecille mated Glomerular Filtration Rate [...] #### 2 4323-8 #### [facility] CLIA [id number] [address] [place] [address] [place] Glucose [Mass/Vol] 125 mg/dL High 74-99 [facility] Comment on above: Order Comment: Speci men Type: BLOOD SPECIMEN Ordering Facility[facility] Address: [address] [place] [address] Result Comment: [facility] Association (ADA) provides guidance for cutoff [...] Standards of Medical Care in Diabetes 2016, [place] Diabetes [employer]. Diabetes Care. 2016.39(Suppl 1). Performed By: #### 2 4323-8 #### [facility] CLIA [id number] [address] [place] [address] [place] Potassium [Moles/Vol] 4.0 mmol/L Normal 3.7-5.1 [facility] Comment on above: Order Comment: Speci men Type: BLOOD SPECIMEN Ordering Facility: [facility] Address: [address] [place] [address] Performed By: #### 2 4323-8 #### [facility] CLIA [id number] [address] [place] [address] [place] Protein [Mass/Vol] 6.8 g/dL Normal 6.3-8.0 [facility] Comment on above: Order Comment: Speci men Type: BLOOD SPECIMEN Ordering Facility: [facility] Address: [address] [place] [address] Performed By: #### 2 4323-8 #### [facility] CLIA [id number] [address] [place] [address] [place] Sodium [Moles/Vol] 142 mmol/L Normal 136-144 [facility] Comment on above: Order Comment: Speci men Type: BLOOD SPECIMEN Ordering Facility: [facility] Address: [address] [place] [address] Performed By: #### 2 4323-8 #### [facility] CLIA [id number] [address] [place] [address] [place] Urea nitrogen [Mass/Vol] 9 mg/dL Normal 7-21 [facility] Comment on above: Order Comment: Speci men Type: BLOOD SPECIMEN Ordering Facility: [facility] Address: [address] [place] [address] Performed By: #### 2 4323-8 #### [facility] CLIA [id number] [address] [place] MAGNESIUM BLDon 04-15-2022 Magnesium [Mass/Vol] 1.8 mg/dL 1.7 - 2 .3 mg/dL [facility] Magnesium SerPl-mCncon 04-15 Magnesium [Mass/Vol] 1.8 mg/dL Normal 1.7-2.3 [facility] Comment on above: Order Comment: Speci men Type: BLOOD SPECIMEN Ordering Facility: [facility] Address: [address] [place] [address] Performed By: #### 1 9123-9 #### [facility] CLIA [id number] [address] [place] [address] [place] CBC W Auto Differential pane l (Bld)on 04-08-2022 Abs Immature Gran 0.04 k/uL <0.10 k/uL [facility] Basophils (Bld) [#/Vol] 0.03 10*3/uL <0.11 k/uL [facility] Basophils/100 WBC (Bld) 0.5 % [facility] Differential cell count method Nom (Bld) Auto [facility] Eosinophils (Bld) [#/Vol] 0.14 10*3/uL <0.46 k/uL [facility] Eosinophils/100 WBC (Bld) 2.3 % [facility] Erythrocyte distribution width (RBC) [Ratio] 16.4 % High 11.5 - 15.0 % [facility] Hematocrit (Bld) [Volume fraction] 37.6 % 36.0 - 46.0 % [facility] Hemoglobin (Bld) [Mass/Vol] 11.8 g/dL 11.5 - 15.5 g/dL [facility] Immature Gran % 0.6 % [facility] Lymphocytes (Bld) [#/Vol] 1.56 10*3/uL 1.00 - 4.00 k/uL [facility] Lymphocytes/100 WBC (Bld) 25.1 % [facility] MCH (RBC) [Entitic mass] 29.4 pg 26.0 - 34.0 pg [facility] MCHC (RBC) [Mass/Vol] 31.4 g/dL 30.5 - 36.0 g/dL [facility] MCV (RBC) [Entitic vol] 93.8 fL 80.0 - 100.0 fL [facility] Monocytes (Bld) [#/Vol] 0.54 10*3/uL <0.87 k/uL [facility] Monocytes/100 WBC (Bld) 8.7 % [facility] Neutrophils (Bld) [#/Vol] 3.91 10*3/uL 1.45 - 7.50 k/uL [facility] Neutrophils/100 WBC (Bld) 62.8 % [facility] Nucleated RBC (Bld) [#/Vol] <0.01 k/uL [facility] Nucleated RBC/100 WBC (Bld) [Ratio] 0.0 /100 WBC [facility] Platelet mean volume (Bld) [Entitic vol] 10.3 fL 9.0 - 12.7 fL [facility] Platelets (Bld) [#/Vol] 316 10*3/uL 150 - 400 k/uL [facility] RBC (Bld) [#/Vol] 4.01 10*6/uL 3.90 - 5.2 0 m/uL [facility] WBC (Bld) [#/Vol] 6.22 10*3/uL 3.70 - 11.00 k/uL [facility] Basophils (Bld) [#/Vol] 0.03 10*3/uL Normal <0.11 [facility] Comment on above: Order Comment: Speci men Type: BLOOD SPECIMEN Ordering Facility: [facility]amaalex Adamsw Address: [address] [place] [address] Performed By: #### 1 9123-9 #### [facility] CLIA [id number] [address] [place] [address] OF [facility] Basophils/100 WBC (Bld) 0.5 % Normal [facility] Comment on above: Order Comment: Speci men Type: BLOOD SPECIMEN Ordering Facility: [facility] Address: [address] [place] [address] Performed By: #### 1 9123-9 #### [facility] CLIA [id number] [address] [place] Differential cell count method Nom (Bld) Auto Normal [facility] Comment on above: Order Comment: Speci men Type: BLOOD SPECIMEN Ordering Facility: [facility] Address: [address] [place] [address] Performed By: #### 1 9123-9 #### [facility] CLIA [id number] [address] [place] [address] [place] Eosinophils (Bld) [#/Vol] 0.14 10*3/uL Normal <0.46 [facility] Comment on above: Order Comment: Speci men Type: BLOOD SPECIMEN Ordering Facility: [facility] Address: [address] [place] [address] Performed By: #### 1 9123-9 #### [facility] CLIA [id number] [address] [place] [address] [place] Eosinophils/100 WBC (Bld) 2.3 % Normal [facility] Comment on above: Order Comment: Speci men Type: BLOOD SPECIMEN Ordering Facility: [facility] Address: [address] [place] [address] Performed By: #### 1 9123-9 #### [facility] CLIA [id number] [address] [place] [address] [place] Erythrocyte distribution width (RBC) [Ratio] 16.4 % High 11.5-15.0 [facility] Comment on above: Order Comment: Speci men Type: BLOOD SPECIMEN Ordering Facility: [facility] Address: [address] [place] [address] Performed By: #### 1 9123-9 #### [facility] CLIA [id number] [address] [place] [address] [place] Hematocrit (Bld) [Volume fraction] 37.6 % Normal 36.0-46.0 [facility] Comment on above: Order Comment: Speci men Type: BLOOD SPECIMEN Ordering Facility[facility] Address: [address] [place] [address] Performed By: #### 1 9123-9 #### [facility] CLIA [id number] [address] [place] Hemoglobin (Bld) [Mass/Vol] 11.8 g/dL Normal 11.5-15.5 [facility] Comment on above: Order Comment: Speci men Type: BLOOD SPECIMEN Ordering Facility[facility] Address: [address] [place] [address] Performed By: #### 1 9123-9 #### [facility] CLIA [id number] [address] [place] IMMATURE GRAN % 0.6 % Normal [facility] Comment on above: Order Comment: Speci men Type: BLOOD SPECIMEN Ordering Facility[facility] Address: [address] [place] [address] Performed By: #### 1 9123-9 #### [facility] CLIA [id number] [address] STATES OF [facility] IMMATURE GRAN ABS 0.04 k/uL Normal <0.[address] [facility] Comment on above: Order Comment: Speci men Type: BLOOD SPECIMEN Ordering Facility: [facility] Address: [address] [place] [address] Performed By: #### 1 9123-9 #### [facility] CLIA [id number] [address] [place] Lymphocytes (Bld) [#/Vol] 1.56 10*3/uL Normal 1.00-4.00 [facility] Comment on above: Order Comment: Speci men Type: BLOOD SPECIMEN Ordering Facility[facility] Address: [address] [place] [address] Performed By: #### 1 9123-9 #### [facility] CLIA [id number] [address] [place] Lymphocytes/100 WBC (Bld) 25.1 % Normal [facility] Comment on above: Order Comment: Speci men Type: BLOOD SPECIMEN Ordering Facility: [facility] Address: [address] [place] [address] Performed By: #### 1 9123-9 #### [facility] CLIA [id number] [address] MCH (RBC) [Entitic mass] 29.4 pg Normal 26.0-34.0 [facility] Comment on above: Order Comment: Speci men Type: BLOOD SPECIMEN Ordering Facility[facility] Address: [address] [place] [address] Performed By: #### 1 9123-9 #### [facility] CLIA [id number] [address] [place] MCHC (RBC) [Mass/Vol] 31.4 g/dL Normal 30.5-36.0 [facility] Comment on above: Order Comment: Speci men Type: BLOOD SPECIMEN Ordering Facility[facility] Address: [address] [place] [address] Performed By: #### 1 9123-9 #### [facility] CLIA [id number] [address] MCV (RBC) [Entitic vol] 93.8 fL Normal 80.0-100.0 C [facility] Comment on above: Order Comment: Speci men Type: BLOOD SPECIMEN Ordering Facility: [facility] Address: [address] [place] [address] Performed By: #### 1 9123-9 #### [facility] CLIA [id number] [address] Monocytes (Bld) [#/Vol] 0.54 10*3/uL Normal <0.87 [facility] Comment on above: Order Comment: Speci men Type: BLOOD SPECIMEN Ordering Facility: [facility] Address: [address] [place] [address] Performed By: #### 1 9123-9 #### [facility] CLIA [id number] [address] [place] [address] [place] Monocytes/100 WBC (Bld) 8.7 % Normal [facility] Comment on above: Order Comment: Speci men Type: BLOOD SPECIMEN Ordering Facility: [facility] Address: [address] [place] [address] Performed By: #### 1 9123-9 #### [facility] CLIA [id number] [address] [place] [address] [place] Neutrophils (Bld) [#/Vol] 3.91 10*3/uL Normal 1.45-7.50 [facility] Comment on above: Order Comment: Speci men Type: BLOOD SPECIMEN Ordering Facility[facility] Address: [address] [place] [address] Performed By: #### 1 9123-9 #### [facility] CLIA [id number] [address] [place] Neutrophils/100 WBC (Bld) 62.8 % Normal [facility] Comment on above: Order Comment: Speci men Type: BLOOD SPECIMEN Ordering Facility: [facility] Address: [address] [place] [address] Performed By: #### 1 9123-9 #### [facility] CLIA [id number] [address] [place] [address] [place] Nucleated RBC (Bld) [#/Vol] 10*3/uL Normal <0.01 [facility] Comment on above: Order Comment: Speci men Type: BLOOD SPECIMEN Ordering Facility[facility] Address: [address] [place] [address] Performed By: #### 1 9123-9 #### [facility] CLIA [id number] [address] [place] [address] [place] Nucleated RBC/100 WBC (Bld) [Ratio] 0.0 /100 WBC Normal [facility] Comment on above: Order Comment: Speci men Type: BLOOD SPECIMEN Ordering Facility[facility] Address: [address] [place] [address] Performed By: #### 1 9123-9 #### [facility] CLIA [id number] [address] [place] [address] [place] Platelet mean volume (Bld) [Entitic vol] 10.3 fL Normal 9.0-12.7 [facility] Comment on above: Order Comment: Speci men Type: BLOOD SPECIMEN Ordering Facility[facility] Address: [address] [place] [address] Performed By: #### 1 9123-9 #### [facility] CLIA [id number] [address] [place] [address] [place] Platelets (Bld) [#/Vol] 316 10*3/uL Normal 150-400 [facility] Comment on above: Order Comment: Speci men Type: BLOOD SPECIMEN Ordering Facility[facility] Address: [address] [place] [address] Performed By: #### 1 9123-9 #### [facility] CLIA [id number] [address] [place] [address] [place] RBC (Bld) [#/Vol] 4.01 10*6/uL Normal 3.90-5.20 [facility] Comment on above: Order Comment: Speci men Type: BLOOD SPECIMEN Ordering Facility[facility] Address: [address] [place] [address] Performed By: #### 1 9123-9 #### [facility] CLIA [id number] [address] [place] [address] [place] WBC (Bld) [#/Vol] 6.22 10*3/uL Normal 3.70-11.00 [facility] Comment on above: Order Comment: Speci men Type: BLOOD SPECIMEN Ordering Facility[facility] Address: [address] [place] [address] Performed By: #### 1 9123-9 #### [facility] CLIA [id number] [address] [place] [address] [place] Comprehensive metabolic 2000 panelon 04-08-2022 Albumin [Mass/Vol] 3.6 g/dL Low 3.9 - 4.9 g/dL [facility] ALP [Catalytic activity/Vol] 73 U/L 34 - 123 U/L [facility] ALT [Catalytic activity/Vol] 13 U/L 7 - 38 U/L [facility] Anion gap [Moles/Vol] 14 mmol/L 9 - 18 mmol/L [facility] AST [Catalytic activity/Vol] 23 U/L 13 - 35 U/L [facility] Bilirubin [Mass/Vol] 0.4 mg/dL 0.2 - 1 .3 mg/dL [facility] Calcium [Mass/Vol] 9.3 mg/dL 8.5 - 10. 2 mg/dL [facility] Chloride [Moles/Vol] 101 mmol/L 97 - 10 5 mmol/L [facility] CO2 [Moles/Vol] 26 mmol/L 22 - 30 mmol/L [facility] Creatinine [Mass/Vol] 0.65 mg/dL 0.58 - 0.96 mg/dL [facility] Estimated Glomerular Filtration Rate 105 mL/min/1.73m >=60 mL/min/1.73 m [facility] Glucose [Mass/Vol] 188 mg/dL High 74 - 99 mg/dL [facility] Potassium [Moles/Vol] 3.6 mmol/L Low 3.7 - 5.1 mmol/L [facility] Protein [Mass/Vol] 6.7 g/dL 6.3 - 8.0 g/dL [facility] Sodium [Moles/Vol] 141 mmol/L 136 - 144 mmol/L [facility] Urea nitrogen [Mass/Vol] 12 mg/dL 7 - 21 mg/dL [facility] Albumin [Mass/Vol] 3.6 g/dL Low 3.9-4.9 [facility] Comment on above: Order Comment: Speci men Type: BLOOD SPECIMEN Ordering Facility[facility] Address: [address] [place] [address] Performed By: #### 2 4323-8 #### [facility] CLIA [id number] [address] [place] [address] ALP [Catalytic activity/Vol] 73 U/L Normal 34-123 [facility] Comment on above: Order Comment: Speci men Type: BLOOD SPECIMEN Ordering Facility[facility] Address: [address] [place] [address] Performed By: #### 2 4323-8 #### [facility] CLIA [id number] [address] [place] [address] [place] ALT [Catalytic activity/Vol] 13 U/L Normal 7-38 [facility] Comment on above: Order Comment: Speci men Type: BLOOD SPECIMEN Ordering Facility[facility] Address: [address] [place] [address] Performed By: #### 2 4323-8 #### [facility] CLIA [id number] [address] [place] [address] [place] Anion gap [Moles/Vol] 14 mmol/L Normal 9-18 [facility] Comment on above: Order Comment: Speci men Type: BLOOD SPECIMEN Ordering Facility[facility] Address: [address] [place] [address] Performed By: #### 2 4323-8 #### [facility] CLIA [id number] [address] [place] [address] [place] AST [Catalytic activity/Vol] 23 U/L Normal 13-35 [facility] Comment on above: Order Comment: Speci men Type: BLOOD SPECIMEN Ordering Facility[facility] Address: [address] [place] [address] Performed By: #### 2 4323-8 #### [facility] CLIA [id number] [address] [place] [address] [place] Bilirubin [Mass/Vol] 0.4 mg/dL Normal 0.2-1.3 [facility] Comment on above: Order Comment: Speci men Type: BLOOD SPECIMEN Ordering [facility] Address: [address] [place] [address] Performed By: #### 2 4323-8 #### [facility] CLIA [id number] [address] [place] [address] [place] Calcium [Mass/Vol] 9.3 mg/dL Normal 8.5-10.2 [facility] Comment on above: Order Comment: Speci men Type: BLOOD SPECIMEN Ordering Facility[facility] Address: [address] [place] [address] Performed By: #### 2 4323-8 #### [facility] CLIA [id number] [address] [place] [address] [place] Chloride [Moles/Vol] 101 mmol/L Normal 97-105 [facility] Comment on above: Order Comment: Speci men Type: BLOOD SPECIMEN Ordering Facility[facility] Address: [address] [place] [address] Performed By: #### 2 4323-8 #### [facility] CLIA [id number] [address] [place] [address] [place] CO2 [Moles/Vol] 26 mmol/L Normal 22-30 [facility] Comment on above: Order Comment: Speci men Type: BLOOD SPECIMEN Ordering Facility[facility] Address: [address] [place] [address] Performed By: #### 2 4323-8 #### [facility] CLIA [id number] [address] [place] [address] [place] Creatinine [Mass/Vol] 0.65 mg/dL Normal 0.58-0.96 [facility] Comment on above: Order Comment: Speci men Type: BLOOD SPECIMEN Order[facility] Facility[facility] Address: [address] [place] [address] Performed By: #### 2 4323-8 #### [facility] CLIA [id number] [address] ESTIMATED GLOMERULAR FILTRATION RATE 105 mL/min/1.73m??? Normal >=60 [facility] Comment on above: Order Comment: Speci men Type: BLOOD SPECIMEN Order[facility] Address: [address] [place] [address] Result Comment: Cecille mated Glomerular Filtration Rate [...] #### 2 4323-8 #### [facility] CLIA [id number] [address] [place] [address] [place] Glucose [Mass/Vol] 188 mg/dL High 74-99 [facility] Comment on above: Order Comment: Susie santizo Type: BLOOD SPECIMEN Ordering Facility[facility] Address: [address] [place] [address] Result Comment: The [place] Diabetes Association (ADA) provides guidance for cutoff [...] Standards of Medical Care in Diabetes 2016, [place] Diabetes [employer]. Diabetes Care. 2016.39(Suppl 1). Performed By: #### 2 4323-8 #### [facility] CLIA [id number] [address] [place] [address] [place] Potassium [Moles/Vol] 3.6 mmol/L Low 3.7-5.1 [facility] Comment on above: Order Comment: Susie santizo Type: BLOOD SPECIMEN [facility] Facility[facility] Address: [address] [place] [address] Performed By: #### 2 4323-8 #### [facility] CLIA [id number] [address] [place] [address] [place] Protein [Mass/Vol] 6.7 g/dL Normal 6.3-8.0 [facility] Comment on above: Order Comment: Susie santizo Type: BLOOD SPECIMEN Order[facility] Facility[facility] Address: [address] [place] [address] Performed By: #### 2 4323-8 #### [facility] CLIA [id number] [address] [place] [address] [place] Sodium [Moles/Vol] 141 mmol/L Normal 136-144 [facility] Comment on above: Order Comment: Susie santizo Type: BLOOD SPECIMEN Ordering Facility[facility] Address: [address] [place] [address] Performed By: #### 2 4323-8 #### [facility] CLIA [id number] [address] [place] [address] [place] Urea nitrogen [Mass/Vol] 12 mg/dL Normal 7-21 [facility] Comment on above: Order Comment: Susie santizo Type: BLOOD SPECIMEN Order[facility] Facility[facility] Address: [address] [place] [address] Performed By: #### 2 4323-8 #### [facility] CLIA [id number] [address] [place] [address] [place] MAGNESIUM BLDon 04-08-2022 Magnesium [Mass/Vol] 1.7 mg/dL 1.7 - 2 .3 mg/dL [facility] Magnesium SerPl-mCncon 04-08 Magnesium [Mass/Vol] 1.7 mg/dL Normal 1.7-2.3 [facility] Comment on above: Order Comment: Susie santizo Type: BLOOD SPECIMEN [facility] Facility[facility] Address: [address] [place] [address] Performed By: #### 1 9123-9 #### [facility] CLIA [id number] [address] [place] [address] [place] Bacteria Ur Culton [...] F Susceptible <=40 , Resistant >40 Abnormal [facility] Comment on above: Performed By: #### 6 30-4 ####[facility] [id number] [place] [address] [place] URINALYSIS, DIPSTICK ONLYon 04-07-2022 Bilirubin Ql (U) Negative Normal Negative [facility] Comment on above: Order Comment: Speci men Type: URINE SPECIMENOrdering Facility: [facility] Address: [address] [place] [address] Performed By: #### U A ####[facility] [id number] [place] [address] [facility] [place] Clarity (Unsp spec) Clear Normal Clear [facility] Comment on above: Order Comment: Speci men Type: URINE SPECIMENOrdering Facility: [facility] Address: [address] [place] [address] Performed By: #### U A ####[facility] [id number] [place] [address] [facility] Color (U) Yellow Normal Yellow [facility] Comment on above: Order Comment: Speci men Type: URINE SPECIMENOrdering Facility: [facility] Address: [address] [place] [address] Performed By: #### U A ####[facility] [id number] [place] [id number] [facility] [place] Glucose Test strip (U) [Mass/Vol] Negative Normal Negative [facility] Comment on above: Order Comment: Speci men Type: URINE SPECIMENOrdering Facility: [facility] Address: [address] [place] [address] Performed By: #### U A ####[facility] [id number] [place] [address] [place] Hemoglobin Ql (U) 1+ Abnormal Negative [facility] Comment on above: Order Comment: Speci men Type: URINE SPECIMENOrdering Facility: [facility] Address: [address] [place] [address] Performed By: #### U A ####[facility] [id number] [place] [id number] [place] Ketones Ql (U) Negative Normal Negative [facility] Comment on above: Order Comment: Speci men Type: URINE SPECIMENOrdering Facility: [facility] Address: [address] [place] [address] Performed By: #### U A ####[facility] [id number] [place] [id number] [facility] [place] Leukocyte esterase Test strip Ql (U) 2+ Abnormal Negative [facility] Comment on above: Order Comment: Speci men Type: URINE SPECIMENOrdering Facility: [facility] Address: [address] [place], [place] [id number] Performed By: #### U A ####[facility] [id number] [place] [address] [place] Nitrite Ql (U) Negative Normal Negative [facility] Comment on above: Order Comment: Speci men Type: URINE SPECIMENOrdering Facility: [facility] Address: [address] [place] [address] Performed By: #### U A ####[facility] [id number] [place] [address] [place] pH (U) 6.0 [pH] Normal 5.0-8.0 [facility] Comment on above: Order Comment: Speci men Type: URINE SPECIMENOrdering Facility: [facility] Address: [address] [place] [address] Performed By: #### U A ####ALSIP LABORATORYCLIA [id number] [address] Protein (U) [Mass/Vol] Normal [facility] Comment on above: Order Comment: Speci men Type: URINE SPECIMENOrdering Facility: [facility] Address: [address] [place] [address] Result Comment: Visi ble blood causes falsely elevated results for analyte Protein. Due to this limitation, Protein will not be reported for patients whose urine contains visible blood. Performed By: #### U A ####ALSIP LABORATORYCLIA [id number] [address] Specific gravity (U) [Rel density] 1.010 Normal 1.005-1.030 [facility] Comment on above: Order Comment: Speci men Type: URINE SPECIMENOrdering Facility: [facility] Address: [address] [place] [address] Performed By: #### U A ####ALSIP LABORATORYCLIA [id number] [place] [id number] [facility] Urobilinogen Ql (U) 0.2 EU/dL Normal 0.2-1.0 EU/dL [facility] Comment on above: Order Comment: Speci men Type: URINE SPECIMENOrdering Facility: [facility] Address: [address] [place] [address] Performed By: #### U A ####LAMBERT LABORATORYCLIA [id number] [place] [address] [place] Basic metabolic 2000 panelon 04-05-2022 Anion gap [Moles/Vol] 9 mmol/L Normal 9-18 [facility] Comment on above: Order Comment: Speci men Type: BLOOD SPECIMENOrdering Facility: [facility] Address: [address] [place] [address] Performed By: #### 2 4321-2 ####LAMBERT LABORATORYCLIA [id number] [place] [address] [place] Calcium [Mass/Vol] 9.5 mg/dL Normal 8.5-10.2 [facility] Comment on above: Order Comment: Speci men Type: BLOOD SPECIMENOrdering Facility: [facility] Address: [address] [place] [address] Performed By: #### 2 4321-2 ####LAMBERT LABORATORYCLIA [id number] [place] [address] [place] Chloride [Moles/Vol] 102 mmol/L Normal 97-105 [facility] Comment on above: Order Comment: Speci men Type: BLOOD SPECIMENOrdering Facility: [facility] Address: [address] [place] [address] Performed By: #### 2 4321-2 ####LAMBERT LABORATORYCLIA [id number] [place] [id number] [place] CO2 [Moles/Vol] 30 mmol/L Normal 22-30 [facility] Comment on above: Order Comment: Speci men Type: BLOOD SPECIMENOrdering Facility: [facility] Address: [address] [place] [address] Performed By: #### 2 4321-2 ####LAMBERT LABORATORYCLIA [id number] [place] [address] [place] Creatinine [Mass/Vol] 0.60 mg/dL Normal 0.58-0.96 [facility] Comment on above: Order Comment: Speci men Type: BLOOD SPECIMENOrdering Facility: [facility] Address: [address] [place] [address] Performed By: #### 2 4321-2 ####ALSIP LABORATORYCLIA [id number] [place] [id number] [place] ESTIMATED GLOMERULAR FILTRATION RATE 107 mL/min/1.73m??? Normal >=60 [facility] Comment on above: Order Comment: Susie sukhdev Type: BLOOD SPECIMENOrdering Facility: [facility] Address: [address] [place] [address] Result Comment: Cecille mated Glomerular Filtration Rate [...] actual GFR. Performed By: #### 2 4321-2 ####ALSIP LABORATORYCLIA [id number] [place] [id number] [place] Glucose [Mass/Vol] 124 mg/dL High 74-99 [facility] Comment on above: Order Comment: Susie sukhdev Type: BLOOD SPECIMENOrdering Facility: [facility] Address: [address] [place] [address] Result Comment: The [place] Diabetes Association (ADA) provides guidance for cutoff [...] Standards of Medical Care in Diabetes 2016, [place] [employer]. Diabetes Care. 2016.39(Suppl 1). Performed By: #### 2 4321-2 ####ALSIP LABORATORYCLIA [id number] [place] [id number] [place] Potassium [Moles/Vol] 4.1 mmol/L Normal 3.7-5.1 [facility] Comment on above: Order Comment: Speci men Type: BLOOD SPECIMENOrdering Facility: [facility] Address: [address] [place] [address] Performed By: #### 2 4321-2 ####LAMBERT LABORATORYCLIA [id number] [address] [place] Sodium [Moles/Vol] 141 mmol/L Normal 136-144 [facility] Comment on above: Order Comment: Speci men Type: BLOOD SPECIMENOrdering Facility: [facility] Address: [address] [place] [address] Performed By: #### 2 4321-2 ####LAMBERT LABORATORYCLIA [id number] [address] [place] Urea nitrogen [Mass/Vol] 8 mg/dL Normal 7-21 [facility] Comment on above: Order Comment: Speci men Type: BLOOD SPECIMENOrdering Facility: [facility] Address: [address] [place] [address] Performed By: #### 2 4321-2 ####LAMBERT LABORATORYCLIA [id number] [place] [address] [place] CBC panel Auto (Bld)on 04-05 Erythrocyte distribution width (RBC) [Ratio] 15.9 % High 11.5-15.0 [facility] Comment on above: Order Comment: Speci men Type: BLOOD SPECIMENOrdering Facility: [facility] Address: [address] [place] [address] Performed By: #### 5 8410-2 ####LAMBERT LABORATORYCLIA [id number] [place] [id number] [place] Hematocrit (Bld) [Volume fraction] 36.1 % Normal 36.0-46.0 [facility] Comment on above: Order Comment: Speci men Type: BLOOD SPECIMENOrdering Facility: [facility] Address: [address] [place] [address] Performed By: #### 5 8410-2 ####LAMBERT LABORATORYCLIA [id number] [address] [place] Hemoglobin (Bld) [Mass/Vol] 11.8 g/dL Normal 11.5-15.5 [facility] Comment on above: Order Comment: Speci men Type: BLOOD SPECIMENOrdering Facility: [facility] Address: [address] [place] [address] Performed By: #### 5 8410-2 ####ALSIP LABORATORYCLIA [id number] [address] [place] MCH (RBC) [Entitic mass] 29.8 pg Normal 26.0-34.0 [facility] Comment on above: Order Comment: Speci men Type: BLOOD SPECIMENOrdering Facility: [facility] Address: [address] [place] [address] Performed By: #### 5 8410-2 ####ALSIP LABORATORYCLIA [id number] [address] MCHC (RBC) [Mass/Vol] 32.7 g/dL Normal 30.5-36.0 [facility] Comment on above: Order Comment: Speci men Type: BLOOD SPECIMENOrdering Facility: [facility] Address: [address] [place] [address] Performed By: #### 5 8410-2 ####ALSIP LABORATORYCLIA [id number] [address] MCV (RBC) [Entitic vol] 91.2 fL Normal 80.0-100.0 [facility] Comment on above: Order Comment: Speci men Type: BLOOD SPECIMENOrdering Facility: [facility] Address: [address] [place] [address] Performed By: #### 5 8410-2 ####ALSIP LABORATORYCLIA [id number] [address] Nucleated RBC (Bld) [#/Vol] 10*3/uL Normal <0.01 [facility] Comment on above: Order Comment: Speci men Type: BLOOD SPECIMENOrdering Facility: [facility] Address: [address] [place] [address] Performed By: #### 5 8410-2 ####ALSIP LABORATORYCLIA [id number] [address] Platelet mean volume (Bld) [Entitic vol] 10.2 fL Normal 9.0-12.7 [facility] Comment on above: Order Comment: Speci men Type: BLOOD SPECIMENOrdering Facility: [facility] Address: [address] [place] [address] Performed By: #### 5 8410-2 ####ALSIP LABORATORYCLIA [id number] [address] OF [facility] Platelets (Bld) [#/Vol] 316 10*3/uL Normal 150-400 [facility] Comment on above: Order Comment: Speci men Type: BLOOD SPECIMENOrdering Facility: [facility] Address: [address] [place] [address] Performed By: #### 5 8410-2 ####ALSIP LABORATORYCLIA [id number] [address] RBC (Bld) [#/Vol] 3.96 10*6/uL Normal 3.90-5.20 [facility] Comment on above: Order Comment: Speci men Type: BLOOD SPECIMENOrdering Facility: [facility] Address: [address] [place] [address] Performed By: #### 5 8410-2 ####ALSIP LABORATORYCLIA [id number] [address] WBC (Bld) [#/Vol] 6.09 10*3/uL Normal 3.70-11.00 [facility] Comment on above: Order Comment: Speci men Type: BLOOD SPECIMENOrdering Facility: [facility] Address: [address] [place] [address] Performed By: #### 5 8410-2 ####ALSIP LABORATORYCLIA [id number] [address] CBC W Auto Differential pane l (Bld)on 04-04-2022 Abs Immature Gran <0.10 k/uL [facility] Basophils (Bld) [#/Vol] 0.03 10*3/uL <0.11 k/uL [facility] Basophils/100 WBC (Bld) 0.5 % [facility] Differential cell count method Nom (Bld) Auto [facility] Eosinophils (Bld) [#/Vol] 0.16 10*3/uL <0.46 k/uL [facility] Eosinophils/100 WBC (Bld) 2.8 % [facility] Erythrocyte distribution width (RBC) [Ratio] 16.1 % High 11.5 - 15.0 % [facility] Hematocrit (Bld) [Volume fraction] 38.0 % 36.0 - 46.0 % [facility] Hemoglobin (Bld) [Mass/Vol] 11.9 g/dL 11.5 - 15.5 g/dL [facility] Immature Gran % 0.4 % [facility] Lymphocytes (Bld) [#/Vol] 1.48 10*3/uL 1.00 - 4.00 k/uL [facility] Lymphocytes/100 WBC (Bld) 26.2 % [facility] MCH (RBC) [Entitic mass] 29.3 pg 26.0 - 34.0 pg [facility] MCHC (RBC) [Mass/Vol] 31.3 g/dL 30.5 - 36.0 g/dL [facility] MCV (RBC) [Entitic vol] 93.6 fL 80.0 - 100.0 fL [facility] Monocytes (Bld) [#/Vol] 0.50 10*3/uL <0.87 k/uL [facility] Monocytes/100 WBC (Bld) 8.9 % [facility] Neutrophils (Bld) [#/Vol] 3.45 10*3/uL 1.45 - 7.50 k/uL [facility] Neutrophils/100 WBC (Bld) 61.2 % [facility] Nucleated RBC (Bld) [#/Vol] <0.01 k/uL [facility] Nucleated RBC/100 WBC (Bld) [Ratio] 0.0 /100 WBC [facility] Platelet mean volume (Bld) [Entitic vol] 10.2 fL 9.0 - 12.7 fL [facility] Platelets (Bld) [#/Vol] 287 10*3/uL 150 - 400 k/uL [facility] RBC (Bld) [#/Vol] 4.06 10*6/uL 3.90 - 5.2 0 m/uL [facility] WBC (Bld) [#/Vol] 5.64 10*3/uL 3.70 - 11.00 k/uL [facility] Basophils (Bld) [#/Vol] 0.03 10*3/uL Normal <0.11 [facility] Comment on above: Order Comment: Speci men Type: BLOOD SPECIMEN [facility] Address: [address] [place] [address] Performed By: #### 5 7021-8 #### [facility] CLIA [id number] [address] [place] [address] [place] Basophils/100 WBC (Bld) 0.5 % Normal [facility] Comment on above: Order Comment: Speci men Type: BLOOD SPECIMEN [facility] Address: [address] [place] [address] Performed By: #### 5 7021-8 #### [facility] CLIA [id number] [address] [place] [address] [place] Differential cell count method Nom (Bld) Auto Normal [facility] Comment on above: Order Comment: Speci men Type: BLOOD SPECIMEN [facility] Address: [address] [place] [address] Performed By: #### 5 7021-8 #### [facility] CLIA [id number] [address] [place] [address] [place] Eosinophils (Bld) [#/Vol] 0.16 10*3/uL Normal <0.46 [facility] Comment on above: Order Comment: Speci men Type: BLOOD SPECIMEN [facility] Address: [address] [place] [address] Performed By: #### 5 7021-8 #### [facility] CLIA [id number] [address] [place] [address] [place] Eosinophils/100 WBC (Bld) 2.8 % Normal [facility] Comment on above: Order Comment: Speci men Type: BLOOD SPECIMEN [facility] Address: [address] [place] [address] Performed By: #### 5 7021-8 #### [facility] CLIA [id number] [address] [place] [address] [place] Erythrocyte distribution width (RBC) [Ratio] 16.1 % High 11.5-15.0 [facility] Comment on above: Order Comment: Speci men Type: BLOOD SPECIMEN [facility] Address: [address] [place] [address] Performed By: #### 5 7021-8 #### [facility] CLIA [id number] [address] [place] [address] [place] Hematocrit (Bld) [Volume fraction] 38.0 % Normal 36.0-46.0 [facility] Comment on above: Order Comment: Speci men Type: BLOOD SPECIMEN [facility] Address: [address] [place] [address] Performed By: #### 5 7021-8 #### [facility] CLIA [id number] [address] [place] [address] [place] Hemoglobin (Bld) [Mass/Vol] 11.9 g/dL Normal 11.5-15.5 [facility] Comment on above: Order Comment: Speci men Type: BLOOD SPECIMEN [facility] Address: [address] [place] [address] Performed By: #### 5 7021-8 #### [facility] CLIA [id number] [address] [place] IMMATURE GRAN % 0.4 % Normal [facility] Comment on above: Order Comment: Speci men Type: BLOOD SPECIMEN [facility] Address: [address] [place] [address] Performed By: #### 5 7021-8 #### [facility] CLIA [id number] [address] [place] IMMATURE GRAN ABS <0.03 Normal <0.[address] [facility] Comment on above: Order Comment: Speci men Type: BLOOD SPECIMEN [facility] Address: [address] [place] [address] Performed By: #### 5 7021-8 #### [facility] CLIA [id number] [address] [place] [address] [place] Lymphocytes (Bld) [#/Vol] 1.48 10*3/uL Normal 1.00-4.00 [facility] Comment on above: Order Comment: Speci men Type: BLOOD SPECIMEN [facility] Address: [address] [place] [address] Performed By: #### 5 7021-8 #### [facility] CLIA [id number] [address] [place] Lymphocytes/100 WBC (Bld) 26.2 % Normal [facility] Comment on above: Order Comment: Speci men Type: BLOOD SPECIMEN [facility] Address: [address] [place] [address] Performed By: #### 5 7021-8 #### [facility] CLIA [id number] [address] [place] [address] [place] MCH (RBC) [Entitic mass] 29.3 pg Normal 26.0-34.0 [facility] Comment on above: Order Comment: Speci men Type: BLOOD SPECIMEN [facility] Address: [address] [place] [address] Performed By: #### 5 7021-8 #### [facility] CLIA [id number] [address] [place] [address] [place] MCHC (RBC) [Mass/Vol] 31.3 g/dL Normal 30.5-36.0 [facility] Comment on above: Order Comment: Speci men Type: BLOOD SPECIMEN [facility] Address: [address] [place] [address] Performed By: #### 5 7021-8 #### [facility] CLIA [id number] [address] [place] MCV (RBC) [Entitic vol] 93.6 fL Normal 80.0-100.0 [facility] Comment on above: Order Comment: Speci men Type: BLOOD SPECIMEN [facility] Address: [address] [place] [address] Performed By: #### 5 7021-8 #### [facility] CLIA [id number] [address] [place] [address] [place] Monocytes (Bld) [#/Vol] 0.50 10*3/uL Normal <0.87 [facility] Comment on above: Order Comment: Speci men Type: BLOOD SPECIMEN [facility] Address: [address] [place] [address] Performed By: #### 5 7021-8 #### [facility] CLIA [id number] [address] [place] [address] [place] Monocytes/100 WBC (Bld) 8.9 % Normal [facility] Comment on above: Order Comment: Speci men Type: BLOOD SPECIMEN [facility] Address: [address] [place] [address] Performed By: #### 5 7021-8 #### [facility] CLIA [id number] [address] [place] [address] [place] Neutrophils (Bld) [#/Vol] 3.45 10*3/uL Normal 1.45-7.50 [facility] Comment on above: Order Comment: Speci men Type: BLOOD SPECIMEN [facility] Address: [address] [place] [address] Performed By: #### 5 7021-8 #### [facility] CLIA [id number] [address] [place] [address] [place] Neutrophils/100 WBC (Bld) 61.2 % Normal [facility] Comment on above: Order Comment: Speci men Type: BLOOD SPECIMEN [facility] Address: [address] [place] [address] Performed By: #### 5 7021-8 #### [facility] CLIA [id number] [address] [place] [address] [place] Nucleated RBC (Bld) [#/Vol] 10*3/uL Normal <0.01 [facility] Comment on above: Order Comment: Speci men Type: BLOOD SPECIMEN [facility] Address: [address] [place] [address] Performed By: #### 5 7021-8 #### [facility] CLIA [id number] [address] [place] [address] [place] Nucleated RBC/100 WBC (Bld) [Ratio] 0.0 /100 WBC Normal [facility] Comment on above: Order Comment: Speci men Type: BLOOD SPECIMEN [facility] Address: [address] [place] [address] Performed By: #### 5 7021-8 #### [facility] CLIA [id number] [address] [place] [address] [place] Platelet mean volume (Bld) [Entitic vol] 10.2 fL Normal 9.0-12.7 [facility] Comment on above: Order Comment: Speci men Type: BLOOD SPECIMEN [facility] Address: [address] [place] [address] Performed By: #### 5 7021-8 #### [facility] CLIA [id number] [address] [place] [address] [place] Platelets (Bld) [#/Vol] 287 10*3/uL Normal 150-400 [facility] Comment on above: Order Comment: Speci men Type: BLOOD SPECIMEN [facility] Address: [address] [place] [address] Performed By: #### 5 7021-8 #### [facility] CLIA [id number] [address] [place] [address] [place] RBC (Bld) [#/Vol] 4.06 10*6/uL Normal 3.90-5.20 [facility] Comment on above: Order Comment: Speci men Type: BLOOD SPECIMEN [facility] Address: [address] [place] [address] Performed By: #### 5 7021-8 #### [facility] CLIA [id number] [address] [place] [address] [place] WBC (Bld) [#/Vol] 5.64 10*3/uL Normal 3.70-11.00 [facility] Comment on above: Order Comment: Speci men Type: BLOOD SPECIMEN Ordering Facility: [facility] Mariama Kerr Address: [address] [place] [address] Performed By: #### 5 7021-8 #### [facility] CLIA [id number] [address] [place] [id number] [place] Comprehensive metabolic 2000 panelon 04-04-2022 Albumin [Mass/Vol] 3.7 g/dL Low 3.9 - 4.9 g/dL [facility] ALP [Catalytic activity/Vol] 72 U/L 34 - 123 U/L [facility] ALT [Catalytic activity/Vol] 15 U/L 7 - 38 U/L [facility] Anion gap [Moles/Vol] 9 mmol/L 9 - 18 mmol/L [facility] AST [Catalytic activity/Vol] 25 U/L 13 - 35 U/L [facility] Bilirubin [Mass/Vol] 0.6 mg/dL 0.2 - 1 .3 mg/dL [facility] Calcium [Mass/Vol] 9.4 mg/dL 8.5 - 10. 2 mg/dL [facility] Chloride [Moles/Vol] 99 mmol/L 97 - 10 5 mmol/L [facility] CO2 [Moles/Vol] 32 mmol/L High 22 - 30 mmol/L [facility] Creatinine [Mass/Vol] 0.78 mg/dL 0.58 - 0.96 mg/dL [facility] Estimated Glomerular Filtration Rate 90 mL/min/1.73m >=60 mL/min/1.73 m [facility] Glucose [Mass/Vol] 128 mg/dL High 74 - 99 mg/dL [facility] Potassium [Moles/Vol] 4.3 mmol/L 3.7 - 5.1 mmol/L [facility] Protein [Mass/Vol] 6.7 g/dL 6.3 - 8.0 g/dL [facility] Sodium [Moles/Vol] 140 mmol/L 136 - 144 mmol/L [facility] Urea nitrogen [Mass/Vol] 11 mg/dL 7 - 21 mg/dL [facility] Albumin [Mass/Vol] 3.7 g/dL Low 3.9-4.9 [facility] Comment on above: Order Comment: Speci men Type: BLOOD SPECIMEN [facility] Address: [address] [place] [address] Performed By: #### 2 4323-8 #### [facility] CLIA [id number] [address] [place] [address] [place] ALP [Catalytic activity/Vol] 72 U/L Normal 34-123 [facility] Comment on above: Order Comment: Speci men Type: BLOOD SPECIMEN [facility] Address: [address] [place] [address] Performed By: #### 2 4323-8 #### [facility] CLIA [id number] [address] [place] [address] [place] ALT [Catalytic activity/Vol] 15 U/L Normal 7-38 [facility] Comment on above: Order Comment: Speci men Type: BLOOD SPECIMEN [facility] Address: [address] [place] [address] Performed By: #### 2 4323-8 #### [facility] CLIA [id number] [address] [place] [address] [place] Anion gap [Moles/Vol] 9 mmol/L Normal 9-18 [facility] Comment on above: Order Comment: Speci men Type: BLOOD SPECIMEN [facility] Address: [address] [place] [address] Performed By: #### 2 4323-8 #### [facility] CLIA [id number] [address] [place] [address] [place] AST [Catalytic activity/Vol] 25 U/L Normal 13-35 [facility] Comment on above: Order Comment: Speci men Type: BLOOD SPECIMEN [facility] Address: [address] [place] [address] Performed By: #### 2 4323-8 #### [facility] CLIA [id number] [address] [place] [address] [place] Bilirubin [Mass/Vol] 0.6 mg/dL Normal 0.2-1.3 [facility] Comment on above: Order Comment: Speci men Type: BLOOD SPECIMEN [facility] Address: [address] [place] [address] Performed By: #### 2 4323-8 #### [facility] CLIA [id number] [address] [place] [address] [place] Calcium [Mass/Vol] 9.4 mg/dL Normal 8.5-10.2 [facility] Comment on above: Order Comment: Speci men Type: BLOOD SPECIMEN [facility] Address: [address] [place] [address] Performed By: #### 2 4323-8 #### [facility] CLIA [id number] [address] [place] [address] [place] Chloride [Moles/Vol] 99 mmol/L Normal 97-105 [facility] Comment on above: Order Comment: Speci men Type: BLOOD SPECIMEN [facility] Address: [address] [place] [address] Performed By: #### 2 4323-8 #### [facility] CLIA [id number] [address] [place] [address] [place] CO2 [Moles/Vol] 32 mmol/L High 22-30 [facility] Comment on above: Order Comment: Speci men Type: BLOOD SPECIMEN Ordering Facility: [facility] Address: [address] [place] [address] Performed By: #### 2 4323-8 #### [facility] CLIA [id number] [address] [place] [address] [place] Creatinine [Mass/Vol] 0.78 mg/dL Normal 0.58-0.96 [facility] Comment on above: Order Comment: Speci men Type: BLOOD SPECIMEN Ordering Facility: [facility] Address: [address] [place] [address] Performed By: #### 2 4323-8 #### [facility] CLIA [id number] [address] [place] [address] [place] ESTIMATED GLOMERULAR FILTRATION RATE 90 mL/min/1.73m??? Normal >=60 [facility] Comment on above: Order Comment: Susie santizo Type: BLOOD SPECIMEN Ordering Facility: [facility] Address: [address] [place] [address] Result Comment: Cecille mated Glomerular Filtration Rate [...] #### 2 4323-8 #### [facility] CLIA [id number] [address] [place] [address] [place] Glucose [Mass/Vol] 128 mg/dL High 74-99 [facility] Comment on above: Order Comment: Susie santizo Type: BLOOD SPECIMEN Ordering Facility: [facility] Address: [address] [place] [address] Result Comment: The [place] Diabetes Association (ADA) provides guidance for cutoff [...] Standards of Medical Care in Diabetes 2016, [place] Diabetes [employer]. Diabetes Care. 2016.39(Suppl 1). Performed By: #### 2 4323-8 #### [facility] CLIA [id number] [address] [place] [address] [place] Potassium [Moles/Vol] 4.3 mmol/L Normal 3.7-5.1 [facility] Comment on above: Order Comment: Susie snatizo Type: BLOOD SPECIMEN Ordering Facility: [facility] Address: [address] [place] [address] Performed By: #### 2 4323-8 #### [facility] CLIA [id number] [address] [place] Protein [Mass/Vol] 6.7 g/dL Normal 6.3-8.0 [facility] Comment on above: Order Comment: Speci men Type: BLOOD SPECIMEN Ordering Facility: [facility] Address: [address] [place] [address] Performed By: #### 2 4323-8 #### [facility] CLIA [id number] [address] [place] [address] [place] Sodium [Moles/Vol] 140 mmol/L Normal 136-144 [facility] Comment on above: Order Comment: Speci men Type: BLOOD SPECIMEN Ordering Facility: [facility] Address: [address] [place] [address] Performed By: #### 2 4323-8 #### [facility] CLIA [id number] [address] [place] [address] [place] Urea nitrogen [Mass/Vol] 11 mg/dL Normal 7-21 [facility] Comment on above: Order Comment: Speci men Type: BLOOD SPECIMEN Ordering Facility: [facility] Address: [address] [place] [address] Performed By: #### 2 4323-8 #### [facility] CLIA [id number] [address] [place] [address] [place] CBC W Auto Differential pane l (Bld)on 04-01-2022 Abs Immature Gran <0.10 k/uL [facility] Basophils (Bld) [#/Vol] <0.11 k/uL [facility] Basophils/100 WBC (Bld) 0.4 % [facility] Differential cell count method Nom (Bld) Auto [facility] Eosinophils (Bld) [#/Vol] 0.15 10*3/uL <0.46 k/uL [facility] Eosinophils/100 WBC (Bld) 2.7 % [facility] Erythrocyte distribution width (RBC) [Ratio] 15.9 % High 11.5 - 15.0 % [facility] Hematocrit (Bld) [Volume fraction] 37.4 % 36.0 - 46.0 % [facility] Hemoglobin (Bld) [Mass/Vol] 12.1 g/dL 11.5 - 15.5 g/dL [facility] Immature Gran % 0.4 % [facility] Lymphocytes (Bld) [#/Vol] 1.36 10*3/uL 1.00 - 4.00 k/uL [facility] Lymphocytes/100 WBC (Bld) 24.2 % [facility] MCH (RBC) [Entitic mass] 29.7 pg 26.0 - 34.0 pg [facility] MCHC (RBC) [Mass/Vol] 32.4 g/dL 30.5 - 36.0 g/dL [facility] MCV (RBC) [Entitic vol] 91.7 fL 80.0 - 100.0 fL [facility] Monocytes (Bld) [#/Vol] 0.37 10*3/uL <0.87 k/uL [facility] Monocytes/100 WBC (Bld) 6.6 % [facility] Neutrophils (Bld) [#/Vol] 3.71 10*3/uL 1.45 - 7.50 k/uL [facility] Neutrophils/100 WBC (Bld) 65.7 % [facility] Nucleated RBC (Bld) [#/Vol] <0.01 k/uL [facility] Nucleated RBC/100 WBC (Bld) [Ratio] 0.0 /100 WBC [facility] Platelet mean volume (Bld) [Entitic vol] 10.1 fL 9.0 - 12.7 fL [facility] Platelets (Bld) [#/Vol] 239 10*3/uL 150 - 400 k/uL [facility] RBC (Bld) [#/Vol] 4.08 10*6/uL 3.90 - 5.2 0 m/uL [facility] WBC (Bld) [#/Vol] 5.63 10*3/uL 3.70 - 11.00 k/uL [facility] Basophils (Bld) [#/Vol] 10*3/uL Normal <0.11 [facility] Comment on above: Order Comment: Speci men Type: BLOOD SPECIMEN Ordering Facility: [facility] Address: [address] [place] [address] Performed By: #### 5 7021-8 #### [facility] CLIA [id number] [address] [place] [address] [place] Basophils/100 WBC (Bld) 0.4 % Normal C [facility] Comment on above: Order Comment: Speci men Type: BLOOD SPECIMEN Ordering Facility: [facility] Address: [address] [place] [address] Performed By: #### 5 7021-8 #### [facility] CLIA [id number] [address] [place] [address] [place] Differential cell count method Nom (Bld) Auto Normal [facility] Comment on above: Order Comment: Speci men Type: BLOOD SPECIMEN Ordering Facility: [facility] Address: [address] [place] [address] Performed By: #### 5 7021-8 #### [facility] CLIA [id number] [address] [place] [address] [place] Eosinophils (Bld) [#/Vol] 0.15 10*3/uL Normal <0.46 [facility] Comment on above: Order Comment: Speci men Type: BLOOD SPECIMEN Ordering Facility: [facility] Address: [address] [place] [address] Performed By: #### 5 7021-8 #### [facility] CLIA [id number] [address] [place] Eosinophils/100 WBC (Bld) 2.7 % Normal [facility] Comment on above: Order Comment: Speci men Type: BLOOD SPECIMEN Ordering Facility: [facility] Address: [address] [place] [address] Performed By: #### 5 7021-8 #### [facility] CLIA [id number] [address] [place] [address] [place] Erythrocyte distribution width (RBC) [Ratio] 15.9 % High 11.5-15.0 [facility] Comment on above: Order Comment: Speci men Type: BLOOD SPECIMEN Ordering Facility: [facility] Address: [address] [place] [address] Performed By: #### 5 7021-8 #### [facility] CLIA [id number] [address] [place] Hematocrit (Bld) [Volume fraction] 37.4 % Normal 36.0-46.0 [facility] Comment on above: Order Comment: Speci men Type: BLOOD SPECIMEN Ordering Facility: [facility] Address: [address] [place] [address] Performed By: #### 5 7021-8 #### [facility] CLIA [id number] [address] [place] Hemoglobin (Bld) [Mass/Vol] 12.1 g/dL Normal 11.5-15.5 [facility] Comment on above: Order Comment: Speci men Type: BLOOD SPECIMEN Ordering Facility: [facility] Address: [address] [place] [address] Performed By: #### 5 7021-8 #### [facility] CLIA [id number] [address] [place] IMMATURE GRAN % 0.4 % Normal [facility] Comment on above: Order Comment: Speci men Type: BLOOD SPECIMEN Ordering Facility[facility] Address: [address] [place] [address] Performed By: #### 5 7021-8 #### [facility] CLIA [id number] [address] IMMATURE GRAN ABS <0.03 Normal <0.[address] [facility] Comment on above: Order Comment: Speci men Type: BLOOD SPECIMEN Ordering Facility: [facility] Address: [address] [place] [address] Performed By: #### 5 7021-8 #### [facility] CLIA [id number] [address] [place] Lymphocytes (Bld) [#/Vol] 1.36 10*3/uL Normal 1.00-4.00 [facility] Comment on above: Order Comment: Speci men Type: BLOOD SPECIMEN Ordering Facility[facility] Address: [address] [place] [address] Performed By: #### 5 7021-8 #### [facility] CLIA [id number] [address] Lymphocytes/100 WBC (Bld) 24.2 % Normal [facility] Comment on above: Order Comment: Speci men Type: BLOOD SPECIMEN Ordering Facility: [facility] Address: [address] [place] [address] Performed By: #### 5 7021-8 #### [facility] CLIA [id number] [address] [place] MCH (RBC) [Entitic mass] 29.7 pg Normal 26.0-34.0 [facility] Comment on above: Order Comment: Speci men Type: BLOOD SPECIMEN Ordering Facility: [facility] Address: [address] [place] [address] Performed By: #### 5 7021-8 #### [facility] CLIA [id number] [address] [place] MCHC (RBC) [Mass/Vol] 32.4 g/dL Normal 30.5-36.0 [facility] Comment on above: Order Comment: Speci men Type: BLOOD SPECIMEN Ordering Facility: [facility] Address: [address] [place] [address] Performed By: #### 5 7021-8 #### [facility] CLIA [id number] [address] MCV (RBC) [Entitic vol] 91.7 fL Normal 80.0-100.0 C [facility] Comment on above: Order Comment: Speci men Type: BLOOD SPECIMEN Ordering Facility: [facility] Address: [address] [place] [address] Performed By: #### 5 7021-8 #### [facility] CLIA [id number] [address] Monocytes (Bld) [#/Vol] 0.37 10*3/uL Normal <0.87 [facility] Comment on above: Order Comment: Speci men Type: BLOOD SPECIMEN Ordering Facility: [facility] Address: [address] [place] [address] Performed By: #### 5 7021-8 #### [facility] CLIA [id number] [address] [place] [address] [place] Monocytes/100 WBC (Bld) 6.6 % Normal C [facility] Comment on above: Order Comment: Speci men Type: BLOOD SPECIMEN Ordering Facility: [facility] Address: [address] [place] [address] Performed By: #### 5 7021-8 #### [facility] CLIA [id number] [address] [place] [address] [place] Neutrophils (Bld) [#/Vol] 3.71 10*3/uL Normal 1.45-7.50 [facility] Comment on above: Order Comment: Speci men Type: BLOOD SPECIMEN Ordering Facility: [facility] Address: [address] [place] [address] Performed By: #### 5 7021-8 #### [facility] CLIA [id number] [address] [place] [address] [place] Neutrophils/100 WBC (Bld) 65.7 % Normal [facility] Comment on above: Order Comment: Speci men Type: BLOOD SPECIMEN Ordering Facility: [facility] Address: [address] [place] [address] Performed By: #### 5 7021-8 #### [facility] CLIA [id number] [address] [place] [address] [place] Nucleated RBC (Bld) [#/Vol] 10*3/uL Normal <0.01 [facility] Comment on above: Order Comment: Speci men Type: BLOOD SPECIMEN Ordering Facility[facility] Address: [address] [place] [address] Performed By: #### 5 7021-8 #### [facility] CLIA [id number] [address] [place] [address] [place] Nucleated RBC/100 WBC (Bld) [Ratio] 0.0 /100 WBC Normal [facility] Comment on above: Order Comment: Speci men Type: BLOOD SPECIMEN Ordering Facility: [facility] Address: [address] [place] [address] Performed By: #### 5 7021-8 #### [facility] CLIA [id number] [address] [place] [address] [place] Platelet mean volume (Bld) [Entitic vol] 10.1 fL Normal 9.0-12.7 [facility] Comment on above: Order Comment: Speci men Type: BLOOD SPECIMEN Ordering Facility[facility] Address: [address] [place] [address] Performed By: #### 5 7021-8 #### [facility] CLIA [id number] [address] [place] [address] [place] Platelets (Bld) [#/Vol] 239 10*3/uL Normal 150-400 [facility] Comment on above: Order Comment: Speci men Type: BLOOD SPECIMEN Ordering Facility[facility] Address: [address] [place] [address] Performed By: #### 5 7021-8 #### [facility] CLIA [id number] [address] [place] [address] [place] RBC (Bld) [#/Vol] 4.08 10*6/uL Normal 3.90-5.20 [facility] Comment on above: Order Comment: Speci men Type: BLOOD SPECIMEN Ordering Facility[facility] Address: [address] [place] [address] Performed By: #### 5 7021-8 #### [facility] CLIA [id number] [address] [place] [address] [place] WBC (Bld) [#/Vol] 5.63 10*3/uL Normal 3.70-11.00 [facility] Comment on above: Order Comment: Speci men Type: BLOOD SPECIMEN Ordering Facility[facility] Address: [address] [place] [address] Performed By: #### 5 7021-8 #### [facility] CLIA [id number] [address] [place] [address] [place] Comprehensive metabolic 2000 panelon 04-01-2022 Albumin [Mass/Vol] 3.8 g/dL Low 3.9 - 4.9 g/dL [facility] ALP [Catalytic activity/Vol] 71 U/L 34 - 123 U/L [facility] ALT [Catalytic activity/Vol] 16 U/L 7 - 38 U/L [facility] Anion gap [Moles/Vol] 10 mmol/L 9 - 18 mmol/L [facility] AST [Catalytic activity/Vol] 22 U/L 13 - 35 U/L [facility] Bilirubin [Mass/Vol] 0.6 mg/dL 0.2 - 1 .3 mg/dL [facility] Calcium [Mass/Vol] 9.2 mg/dL 8.5 - 10. 2 mg/dL [facility] Chloride [Moles/Vol] 99 mmol/L 97 - 10 5 mmol/L [facility] CO2 [Moles/Vol] 28 mmol/L 22 - 30 mmol/L [facility] Creatinine [Mass/Vol] 0.62 mg/dL 0.58 - 0.96 mg/dL [facility] Estimated Glomerular Filtration Rate 106 mL/min/1.73m >=60 mL/min/1.73 m [facility] Glucose [Mass/Vol] 121 mg/dL High 74 - 99 mg/dL [facility] Potassium [Moles/Vol] 3.8 mmol/L 3.7 - 5.1 mmol/L [facility] Protein [Mass/Vol] 6.8 g/dL 6.3 - 8.0 g/dL [facility] Sodium [Moles/Vol] 137 mmol/L 136 - 144 mmol/L [facility] Urea nitrogen [Mass/Vol] 13 mg/dL 7 - 21 mg/dL [facility] Albumin [Mass/Vol] 3.8 g/dL Low 3.9-4.9 [facility] Comment on above: Order Comment: Speci men Type: BLOOD SPECIMEN Ordering Facility: [facility] Address: [address] [place] [address] Performed By: #### 2 4323-8 #### [facility] CLIA [id number] [address] [place] [address] ALP [Catalytic activity/Vol] 71 U/L Normal 34-123 [facility] Comment on above: Order Comment: Speci men Type: BLOOD SPECIMEN Ordering Facility[facility] Address: [address] [place] [address] Performed By: #### 2 4323-8 #### [facility] CLIA [id number] [address] [place] [address] [place] ALT [Catalytic activity/Vol] 16 U/L Normal 7-38 [facility] Comment on above: Order Comment: Speci men Type: BLOOD SPECIMEN Ordering Facility[facility] Address: [address] [place] [address] Performed By: #### 2 4323-8 #### [facility] CLIA [id number] [address] [place] [address] [place] Anion gap [Moles/Vol] 10 mmol/L Normal 9-18 [facility] Comment on above: Order Comment: Speci men Type: BLOOD SPECIMEN Ordering Facility[facility] Address: [address] [place] [address] Performed By: #### 2 4323-8 #### [facility] CLIA [id number] [address] [place] [address] [place] AST [Catalytic activity/Vol] 22 U/L Normal 13-35 [facility] Comment on above: Order Comment: Speci men Type: BLOOD SPECIMEN Ordering Facility[facility] Address: [address] [place] [address] Performed By: #### 2 4323-8 #### [facility] CLIA [id number] [address] [place] [address] [place] Bilirubin [Mass/Vol] 0.6 mg/dL Normal 0.2-1.3 [facility] Comment on above: Order Comment: Speci men Type: BLOOD SPECIMEN Ordering Facility[facility] Address: [address] [place] [address] Performed By: #### 2 4323-8 #### [facility] CLIA [id number] [address] [place] [address] [place] Calcium [Mass/Vol] 9.2 mg/dL Normal 8.5-10.2 [facility] Comment on above: Order Comment: Speci men Type: BLOOD SPECIMEN Ordering Facility[facility] Address: [address] [place] [address] Performed By: #### 2 4323-8 #### [facility] CLIA [id number] [address] [place] [address] [place] Chloride [Moles/Vol] 99 mmol/L Normal 97-105 [facility] Comment on above: Order Comment: Speci men Type: BLOOD SPECIMEN Ordering Facility[facility] Address: [address] [place] [address] Performed By: #### 2 4323-8 #### [facility] CLIA [id number] [address] [place] [address] [place] CO2 [Moles/Vol] 28 mmol/L Normal 22-30 [facility] Comment on above: Order Comment: Speci men Type: BLOOD SPECIMEN Order[facility] Facility[facility] Address: [address] [place] [address] Performed By: #### 2 4323-8 #### [facility] CLIA [id number] [address] [place] [address] [place] Creatinine [Mass/Vol] 0.62 mg/dL Normal 0.58-0.96 [facility] Comment on above: Order Comment: Speci men Type: BLOOD SPECIMEN Order[facility] Facility[facility] Address: [address] [place] [address] Performed By: #### 2 4323-8 #### [facility] CLIA [id number] [address] ESTIMATED GLOMERULAR FILTRATION RATE 106 mL/min/1.73m??? Normal >=60 [facility] Comment on above: Order Comment: Speci men Type: BLOOD SPECIMEN Ordering Facility[facility] Address: [address] [place] [address] Result Comment: Cecille mated Glomerular Filtration Rate [...] #### 2 4323-8 #### [facility] CLIA [id number] [address] [place] [address] [place] Glucose [Mass/Vol] 121 mg/dL High 74-99 [facility] Comment on above: Order Comment: Susie santzio Type: BLOOD SPECIMEN Ordering Facility[facility] Address: [address] [place] [address] Result Comment: The [place] Diabetes Association (ADA) provides guidance for cutoff [...] Standards of Medical Care in Diabetes 2016, [place] [employer]. Diabetes Care. 2016.39(Suppl 1). Performed By: #### 2 4323-8 #### [facility] CLIA [id number] [address] [place] [address] [place] Potassium [Moles/Vol] 3.8 mmol/L Normal 3.7-5.1 [facility] Comment on above: Order Comment: Susie santizo Type: BLOOD SPECIMEN [facility] Facility[facility] Address: [address] [place] [address] Performed By: #### 2 4323-8 #### [facility] CLIA [id number] [address] [place] [address] [place] Protein [Mass/Vol] 6.8 g/dL Normal 6.3-8.0 [facility] Comment on above: Order Comment: Susie santizo Type: BLOOD SPECIMEN Order[facility] Facility[facility] Address: [address] [place] [address] Performed By: #### 2 4323-8 #### [facility] CLIA [id number] [address] [place] [address] [place] Sodium [Moles/Vol] 137 mmol/L Normal 136-144 [facility] Comment on above: Order Comment: Speci men Type: BLOOD SPECIMEN Ordering Facility: [facility] Address: [address] [place] [address] Performed By: #### 2 4323-8 #### [facility] CLIA [id number] [address] [place] [address] [place] Urea nitrogen [Mass/Vol] 13 mg/dL Normal 7-21 [facility] Comment on above: Order Comment: Speci men Type: BLOOD SPECIMEN Ordering Facility: [facility] Address: [address] [place] [address] Performed By: #### 2 4323-8 #### [facility] CLIA [id number] [address] [place] [address] [place] MAGNESIUM BLDon 04-01-2022 Magnesium [Mass/Vol] 1.9 mg/dL 1.7 - 2 .3 mg/dL [facility] Magnesium SerPl-mCncon 04-01 Magnesium [Mass/Vol] 1.9 mg/dL Normal 1.7-2.3 [facility] Comment on above: Order Comment: Speci men Type: BLOOD SPECIMEN [facility]ing Facility[facility] Address: [address] [place] [address] Performed By: #### 1 9123-9 #### [facility] CLIA [id number] [address] [place] [address] [place] CASE MANAGEMon 03-29-2022 CASE MANAGEM HNO ID: [id number] Author: Lian Seymour RN Service: ? Author Type: Registered Nurse Type: Care Mgt Progress Note Filed: 03/29/2022 9:38 AM Note Text: CARE MANAGEMENT PROGRESS NOTE SERVICE DATE: 03/29/2022 SERVICE TIME: 9:36 AM LOS: 4 days Admission Date: 03/25/2022 DISCHARGE ARRANGEMENT (list agency and phone number) Discharge Arrangement: Acute Rehabilitation Facility Provider Name: [facility] [phone] CAREGIVER ASSESSMENT: Caregiver is ready, willing and able to meet the patient's needs as recommended by the inter-professional team:: Yes Patient's transition needs and plan for meeting these needs: ESR HANDOFF COMMUNICATION: Handoff to: Primary Care Physician Primary Care Physician Name/Phone: Dr Hicks [phone] TRANSPORTATION ARRANGEMENTS: Transportation Arrangements: Ambulance Transportation Agency and Phone #:: [facility] [phone] Date of Trip: 03/29/22 Time of Trip: 0230 Type of Service: BLS Non-emergency Is Patient Medicaid Pending?: No Was transportation financial coverage discussed with family?: Patient Tube Splicer Location: [place] Destination: [facility] ADDITIONAL CONTACT RESOURCES: n/a Discharge Information Row Name Admission (Current) from 03/25/2022 in [facility] Agency [facility] IMM Follow Up Copy Given: Yes Copy given to:: Patient Method: In Person Discharge orders written for pt to d/c to [facility], 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 Pt in agreement with plan. Envelope on chart, RN to call report. SIGNATURE: Lian Seymour RN PATIENT NAME: Bradley Matos DATE: March 29, 2022 TIME: 9:36 AM PAGER/CONTACT #: [phone] [facility] 03-29-2022 [facility] HNO ID: [id number] Author: Stephen Guy MD Service: Hospital Medicine [...] WAS IN THE HOSPITAL: You presented to [facility] with worsening left-sided weakness from nursing [...] Appointment When: In 1 week Didier Hicks [phone] [facility] [address] [address] PCP Requested Referral Additional Provider to Provider [...] states that symptoms?initially?francia richardson 02/28 evaluated at [facility]?for slurred speech subsequently?was transferred to [facility]?and was diagnosed with an acute stroke, patient unable to state location. During the course of hospitalization she notes that she was COIVD + and was transferred to the rehab facility, w/residual left sided weakness, however she left AMA on 03/08. She has not yet had neurology follow-up. She returned home but was not feeling well and presented to?[facility] on 03/08?where she was found to be COVID-19 (+), she was treated?w/ 5 days of dex (5 days at discharge), and remdesivir d/t [place] oxygen requirement?and discharged to rehab?at?[facility]. ?She notes that she was dong well [...] for which she underwent sigmoid resection in 2017. She has history GI bleed with last EGD in 2015 showing non bleeding ulcer. She was advised to not use any NSAIDS and her dose of rabeprazole is being changed to daily. Active Hospital Problems as of 03/29/2022 Noted - Resolved [facility] Ulcerative colitis, chronic (HCC) 01/12/2016 - Present Yes Morbid obes (more content not included)... Normal [facility] CBC panel Auto (Bld)on 03-28 Erythrocyte distribution width (RBC) [Ratio] 15.6 % High 11.5-15.0 [facility] Comment on above: Order Comment: Speci men Type: BLOOD SPECIMENOrdering Facility: [facility] [place] [facility] Address: [address] [place] [address] Performed By: #### 5 8410-2 ####[facility] LABORATORYCLIA [id number] [address] Hematocrit (Bld) [Volume fraction] 36.9 % Normal 36.0-46.0 [facility] Comment on above: Order Comment: Speci men Type: BLOOD SPECIMENOrdering Facility: [facility] [place] [facility] Address: [address] [place] [address] Performed By: #### 5 8410-2 ####LAMBERT LABORATORYCLIA [id number] [address] [place] Hemoglobin (Bld) [Mass/Vol] 11.9 g/dL Normal 11.5-15.5 [facility] Comment on above: Order Comment: Speci men Type: BLOOD SPECIMENOrdering Facility: [facility] [place] [facility] Address: [address] [place] [address] Performed By: #### 5 8410-2 ####LAMBERT LABORATORYCLIA [id number] [address] MCH (RBC) [Entitic mass] 29.4 pg Normal 26.0-34.0 [facility] Comment on above: Order Comment: Speci men Type: BLOOD SPECIMENOrdering Facility: [facility] [place] [facility] Address: [address] [place] [address] Performed By: #### 5 8410-2 ####LAMBERT LABORATORYCLIA [id number] [address] MCHC (RBC) [Mass/Vol] 32.2 g/dL Normal 30.5-36.0 [facility] Comment on above: Order Comment: Speci men Type: BLOOD SPECIMENOrdering Facility: [facility] [place] [facility] Address: [address] [place] [address] Performed By: #### 5 8410-2 ####LAMBERT LABORATORYCLIA [id number] [address] MCV (RBC) [Entitic vol] 91.1 fL Normal 80.0-100.0 [facility] Comment on above: Order Comment: Speci men Type: BLOOD SPECIMENOrdering Facility: [facility] [place] [facility] Address: [address] [address] Performed By: #### 5 8410-2 ####LAMBERT LABORATORYCLIA [id number] [place] [address] [place] Nucleated RBC (Bld) [#/Vol] 10*3/uL Normal <0.01 [facility] Comment on above: Order Comment: Speci men Type: BLOOD SPECIMENOrdering Facility: [facility] [place] [facility] Address: [address] [place] [address] Performed By: #### 5 8410-2 ####LAMBERT LABORATORYCLIA [id number] [place] [address] [place] Platelet mean volume (Bld) [Entitic vol] 10.1 fL Normal 9.0-12.7 [facility] Comment on above: Order Comment: Speci men Type: BLOOD SPECIMENOrdering Facility: [facility] [place] [facility] Address: [address] [place] [address] Performed By: #### 5 8410-2 ####LAMBERT LABORATORYCLIA [id number] [address] [place] Platelets (Bld) [#/Vol] 225 10*3/uL Normal 150-400 [facility] Comment on above: Order Comment: Speci men Type: BLOOD SPECIMENOrdering Facility: [facility] [place] [facility] Address: [address] [place] [address] Performed By: #### 5 8410-2 ####LAMBERT LABORATORYCLIA [id number] [place] [address] [place] RBC (Bld) [#/Vol] 4.05 10*6/uL Normal 3.90-5.20 [facility] Comment on above: Order Comment: Speci men Type: BLOOD SPECIMENOrdering Facility: [facility] [place] [facility] Address: [address] [place] [address] Performed By: #### 5 8410-2 ####LAMBERT LABORATORYCLIA [id number] [place] [address] [place] WBC (Bld) [#/Vol] 7.95 10*3/uL Normal 3.70-11.00 [facility] Comment on above: Order Comment: Speci men Type: BLOOD SPECIMENOrdering Facility: [facility] [place] [facility] Address: [address] [place] [address] Performed By: #### 5 8410-2 ####LAMBERT LABORATORYCLIA [id number] [address] OF [facility] Comprehensive metabolic 2000 panelon 03-28-2022 Albumin [Mass/Vol] 3.5 g/dL Low 3.9-4.9 [facility] Comment on above: Order Comment: Speci men Type: BLOOD SPECIMEN [facility] [place] [facility] Address: [address] [place] [address] Performed By: #### 2 4323-8 #### [facility] CLIA [id number] [address] [place] [facility] ALP [Catalytic activity/Vol] 62 U/L Normal 34-123 [facility] Comment on above: Order Comment: Speci men Type: BLOOD SPECIMEN [facility] [place] [facility] Address: [address] [place] [address] Performed By: #### 2 4323-8 #### [facility] CLIA [id number] [address] ALT [Catalytic activity/Vol] 16 U/L Normal 7-38 [facility] Comment on above: Order Comment: Speci men Type: BLOOD SPECIMEN [facility] [place] [facility] Address: [address] [place] [address] Performed By: #### 2 4323-8 #### [facility] CLIA [id number] [address] Anion gap [Moles/Vol] 11 mmol/L Normal 9-18 [facility] Comment on above: Order Comment: Speci men Type: BLOOD SPECIMEN [facility] [place] [facility] Address: [address] [place] [address] Performed By: #### 2 4323-8 #### [facility] CLIA [id number] [address] [place] [address] [place] AST [Catalytic activity/Vol] 13 U/L Normal 13-35 [facility] Comment on above: Order Comment: Speci men Type: BLOOD SPECIMEN [facility] [place] Address: [address] [place] [address] Performed By: #### 2 4323-8 #### [facility] CLIA [id number] [address] [place] [address] [place] Bilirubin [Mass/Vol] 0.6 mg/dL Normal 0.2-1.3 [facility] Comment on above: Order Comment: Speci men Type: BLOOD SPECIMEN [facility] [place] Address: [address] [place] [address] Performed By: #### 2 4323-8 #### [facility] CLIA [id number] [address] [place] [address] [place] Calcium [Mass/Vol] 9.1 mg/dL Normal 8.5-10.2 [facility] Comment on above: Order Comment: Speci men Type: BLOOD SPECIMEN [facility] Address: [address] [place] [address] Performed By: #### 2 4323-8 #### [facility] CLIA [id number] [address] [place] [address] [place] Chloride [Moles/Vol] 100 mmol/L Normal 97-105 [facility] Comment on above: Order Comment: Speci men Type: BLOOD SPECIMEN [facility] Address: [address] [place] [address] Performed By: #### 2 4323-8 #### [facility] CLIA [id number] [address] [place] [address] [place] CO2 [Moles/Vol] 29 mmol/L Normal 22-30 [facility] Comment on above: Order Comment: Speci men Type: BLOOD SPECIMEN [facility] Address: [address] [place] [address] Performed By: #### 2 4323-8 #### [facility] CLIA [id number] [address] [place] [address] [place] Creatinine [Mass/Vol] 0.62 mg/dL Normal 0.58-0.96 [facility] Comment on above: Order Comment: Susie sukhdev Type: BLOOD SPECIMEN [facility] Address: [address] [place] [address] Performed By: #### 2 4323-8 #### [facility] CLIA [id number] [address] [place] ESTIMATED GLOMERULAR FILTRATION RATE 106 mL/min/1.73m??? Normal >=60 [facility] Comment on above: Order Comment: Susie sukhdev Type: BLOOD SPECIMEN [facility] Address: [address] [place] [address] Result Comment: Cecille mated Glomerular Filtration Rate [...] GFR. Performed By: #### 2 4323-8 #### [facility] CLIA [id number] [address] [place] [address] [place] Glucose [Mass/Vol] 154 mg/dL High 74-99 [facility] Comment on above: Order Comment: Tristianzeke santizo Type: BLOOD SPECIMEN [facility] Address: [address] [place] [address] Result Comment: The [place] Diabetes Association (ADA) provides guidance for cutoff [...] Standards of Medical Care in Diabetes 2016, [place] Diabetes Association. Diabetes Care. 2016.39(Suppl 1). Performed By: #### 2 4323-8 #### [facility] CLIA [id number] [address] [place] [address] [place] Potassium [Moles/Vol] 3.9 mmol/L Normal 3.7-5.1 [facility] Comment on above: Order Comment: Speci men Type: BLOOD SPECIMEN [facility] Address: [address] [place] [address] Performed By: #### 2 4323-8 #### [facility] CLIA [id number] [address] [place] [address] [place] Protein [Mass/Vol] 6.6 g/dL Normal 6.3-8.0 [facility] Comment on above: Order Comment: Speci men Type: BLOOD SPECIMEN [facility] Address: [address] [place] [address] Performed By: #### 2 4323-8 #### [facility] CLIA [id number] [address] [place] Sodium [Moles/Vol] 140 mmol/L Normal 136-144 [facility] Comment on above: Order Comment: Speci men Type: BLOOD SPECIMEN [facility] Address: [address] [place] [address] Performed By: #### 2 4323-8 #### [facility] CLIA [id number] [address] [place] Urea nitrogen [Mass/Vol] 11 mg/dL Normal 7-21 [facility] Comment on above: Order Comment: Speci men Type: BLOOD SPECIMEN [facility] Address: [address] [place] [address] Performed By: #### 2 4323-8 #### [facility] CLIA [id number] [address] [place] NURSING PROGon 03-28-2022 NURSING PROG HNO ID: [id number] Author: Yue Kruse RN Service: Nursing Author Type: Registered Nurse Type: Nursing Progress Note Filed: 03/28/2022 9:26 AM Note Text: Nursing Progress Note Patient Name: Bradley Matos Patient Location: [id number] Daily Note:0915 c.o nausea, message sent to hospitalist, orders received. This note was completed by: Yue Kruse [facility] ALLIED HEALTHon 03-27-2022 ALLIED HEALTH HNO ID: [id number] Author: RT Juan Antonio(R) Service: Radiology Author [...] Juan Antonio(R) March 27, 2022 8:42 PM [facility] CBC panel Auto (Bld)on 03-27 Erythrocyte distribution width (RBC) [Ratio] 15.6 % High 11.5-15.0 [facility] Comment on above: Order Comment: Speci men Type: BLOOD SPECIMENOrdering Facility: [facility] Address: [address] [place] [address] Performed By: #### 5 8410-2 ####ALSIP LABORATORYCLIA [id number] [place] [address] [place] Hematocrit (Bld) [Volume fraction] 36.2 % Normal 36.0-46.0 [facility] Comment on above: Order Comment: Speci men Type: BLOOD SPECIMENOrdering Facility: [facility] [place] [facility] Address: [address] [place] [address] Performed By: #### 5 8410-2 ####LAM[facility] LABORATORYCLIA [id number] [address] Hemoglobin (Bld) [Mass/Vol] 11.8 g/dL Normal 11.5-15.5 [facility] Comment on above: Order Comment: Speci men Type: BLOOD SPECIMENOrdering Facility: [facility] [place] [facility] Address: [address] [place] [address] Performed By: #### 5 8410-2 ####LAMBERT LABORATORYCLIA [id number] [address] MCH (RBC) [Entitic mass] 29.7 pg Normal 26.0-34.0 [facility] Comment on above: Order Comment: Speci men Type: BLOOD SPECIMENOrdering Facility: [facility] [place] [facility] Address: [address] [place] [address] Performed By: #### 5 8410-2 ####L[facility] LABORATORYCLIA [id number] [address] MCHC (RBC) [Mass/Vol] 32.6 g/dL Normal 30.5-36.0 [facility] Comment on above: Order Comment: Speci men Type: BLOOD SPECIMENOrdering Facility: [facility] [place] [facility] Address: [address] [place] [address] Performed By: #### 5 8410-2 ####LAM[facility]ERT LABORATORYCLIA [id number] [address] MCV (RBC) [Entitic vol] 91.2 fL Normal 80.0-100.[address] [facility] Comment on above: Order Comment: Speci men Type: BLOOD SPECIMENOrdering Facility: [facility] [place] [facility] Address: [address] [place] [address] Performed By: #### 5 8410-2 ####LAMBERT LABORATORYCLIA [id number] [address] [place] Nucleated RBC (Bld) [#/Vol] 10*3/uL Normal <0.01 [facility] Comment on above: Order Comment: Speci men Type: BLOOD SPECIMENOrdering Facility: [facility] [place] [facility] Address: [address] [place] [address] Performed By: #### 5 8410-2 ####LAMBERT LABORATORYCLIA [id number] [place] [address] [place] Platelet mean volume (Bld) [Entitic vol] 9.8 fL Normal 9.0-12.7 [facility] Comment on above: Order Comment: Speci men Type: BLOOD SPECIMENOrdering Facility: [facility] [place] [facility] Address: [address] [place] [address] Performed By: #### 5 8410-2 ####LAMBERT LABORATORYCLIA [id number] [place] [address] [place] Platelets (Bld) [#/Vol] 213 10*3/uL Normal 150-400 [facility] Comment on above: Order Comment: Speci men Type: BLOOD SPECIMENOrdering Facility: [facility] [place] [facility] Address: [address] [place] [address] Performed By: #### 5 8410-2 ####LAMBERT LABORATORYCLIA [id number] [place] [address] [place] RBC (Bld) [#/Vol] 3.97 10*6/uL Normal 3.90-5.20 [facility] Comment on above: Order Comment: Speci men Type: BLOOD SPECIMENOrdering Facility: [facility] [place] [facility] Address: [address] [place] [address] Performed By: #### 5 8410-2 ####LAMBERT LABORATORYCLIA [id number] [place] [address] [place] WBC (Bld) [#/Vol] 7.45 10*3/uL Normal 3.70-11.00 [facility] Comment on above: Order Comment: Speci men Type: BLOOD SPECIMENOrdering Facility: [facility] [place] [facility] Address: [address] [place] [address] Performed By: #### 5 8410-2 ####ALSIP LABORATORYCLIA [id number] [place] [address] [facility] CONSULTon 03-27-2022 CONSULT HNO ID: [id number] Author: Michael Hewitt MD Service: Orthopaedic Surgery [...] necessary. Will follow imaging. Michael Hewitt MD [facility] CONSULT PROGon 03-27-2022 CONSULT PROG HNO ID: [id number] Author: Kurt Evans MD Service: Infectious Disease Author Type: Physician Type: Consult Progress Note Filed: 03/27/2022 10:34 PM Note Text: INFECTIOUS DISEASE PROGRESS NOTE Patient Name: Bradley Matos INTERVAL HISTORY: Patient seen and evaluated for persistent COVID. Antiviral therapy and Dexamethasone course previously completed at the beginning of March. Currently resting in bed in [facility], feels her left sided weakness is comparable [...] inflammation Line (more content not included)... Normal [facility] CT HIP WO IVCON LTon 022 CT HIP WO IVCON LT * * *Final Report* * * DATE OF EXAM: Mar 27 2022 8:17PM [facility] [address] - CT HIP WO IVCON LT [...] the sigmoid colon. IMPRESSION: Osteoarthrosis. No fracture. 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 Transcribe Date/Time: Mar 28 2022 8:30A Dictated by : JULIA FALCON MD This examination was interpreted and the report reviewed and electronically signed by: JULIA FALCON MD on Mar 28 2022 8:33AM EST [id number] Normal [facility] Comprehensive metabolic 2000 panelon 03-27-2022 Albumin [Mass/Vol] 3.5 g/dL Low 3.9-4.9 [facility] Comment on above: Order Comment: Speci men Type: BLOOD SPECIMENOrdering Facility: [facility] [place] [facility] Address: [address] [place] [address] Performed By: #### 2 4323-8 ####L[facility] LABORATORYCLIA [id number] [address] OF [facility] ALP [Catalytic activity/Vol] 64 U/L Normal 34-123 [facility] Comment on above: Order Comment: Speci men Type: BLOOD SPECIMENOrdering Facility: [facility] [place] [facility] Address: [address] [address] Performed By: #### 2 4323-8 ####[facility] LABORATORYCLIA [id number] [address] [place] ALT [Catalytic activity/Vol] 16 U/L Normal 7-38 [facility] Comment on above: Order Comment: Speci men Type: BLOOD SPECIMENOrdering Facility: [facility] [place] [facility] Address: [address] [address] Performed By: #### 2 4323-8 ####L[facility] LABORATORYCLIA [id number] [address] Anion gap [Moles/Vol] 11 mmol/L Normal 9-18 [facility] Comment on above: Order Comment: Speci men Type: BLOOD SPECIMENOrdering Facility: [facility] [facility] Address: [address] [address] Performed By: #### 2 4323-8 ####L[facility] LABORATORYCLIA [id number] [address] [place] AST [Catalytic activity/Vol] 12 U/L Low 13-35 [facility] Comment on above: Order Comment: Speci men Type: BLOOD SPECIMENOrdering Facility: [facility] [facility] Address: [address] [place] [address] Performed By: #### 2 4323-8 ####L[facility] LABORATORYCLIA [id number] [address] [place] Bilirubin [Mass/Vol] 0.8 mg/dL Normal 0.2-1.3 [facility] Comment on above: Order Comment: Speci men Type: BLOOD SPECIMENOrdering Facility: [facility] Address: [address] [place] [address] Performed By: #### 2 4323-8 ####[facility] LABORATORYCLIA [id number] [address] Calcium [Mass/Vol] 9.3 mg/dL Normal 8.5-10.2 [facility] Comment on above: Order Comment: Speci men Type: BLOOD SPECIMENOrdering Facility: [facility] [facility] Address: [address] [address] Performed By: #### 2 4323-8 ####L[facility] LABORATORYCLIA [id number] [address] [place] Chloride [Moles/Vol] 100 mmol/L Normal 97-105 [facility] Comment on above: Order Comment: Speci men Type: BLOOD SPECIMENOrdering Facility: [facility] [facility] Address: [address] [address] Performed By: #### 2 4323-8 ####L[facility] LABORATORYCLIA [id number] [address] CO2 [Moles/Vol] 29 mmol/L Normal 22-30 [facility] Comment on above: Order Comment: Susie santizo Type: BLOOD SPECIMENOrdering Facility: [facility] [place] [facility] Address: [address] [place] [address] Performed By: #### 2 4323-8 ####[facility] LABORATORYCLIA [id number] [address] Creatinine [Mass/Vol] 0.57 mg/dL Low 0.58-0.96 [facility] Comment on above: Order Comment: Susie santizo Type: BLOOD SPECIMENOrdering Facility: [facility] [facility] Address: [address] [place] [address] Performed By: #### 2 4323-8 ####[facility] LABORATORYCLIA [id number] [address] ESTIMATED GLOMERULAR FILTRATION RATE 108 mL/min/1.73m??? Normal >=60 [facility] Comment on above: Order Comment: Susie santizo Type: BLOOD SPECIMENOrdering Facility: [facility] [place] [facility] Address: [address] [place] [address] Result Comment: Cecille mated Glomerular Filtration Rate [...] actual GFR. Performed By: #### 2 4323-8 ####[facility] LABORATORYCLIA [id number] [address] Glucose [Mass/Vol] 133 mg/dL High 74-99 [facility] Comment on above: Order Comment: Susie sukhdev Type: BLOOD SPECIMENOrdering Facility: [facility] [place] [facility] Address: [address] [place] [address] Result Comment: The [place] Diabetes Association (ADA) provides guidance for cutoff [...] Standards of Medical Care in Diabetes 2016, [place] Diabetes Association. Diabetes Care. 2016.39(Suppl 1). Performed By: #### 2 4323-8 ####[facility] LABORATORYCLIA [id number] [place] [address] [place] Potassium [Moles/Vol] 4.0 mmol/L Normal 3.7-5.1 [facility] Comment on above: Order Comment: Susie santizo Type: BLOOD SPECIMENOrdering Facility: [facility] [place] [facility] Address: [address] [place] [address] Performed By: #### 2 4323-8 ####[facility] LABORATORYCLIA [id number] [place] [address] [place] Protein [Mass/Vol] 7.0 g/dL Normal 6.3-8.0 [facility] Comment on above: Order Comment: Susie santizo Type: BLOOD SPECIMENOrdering Facility: [facility] [place] [facility] Address: [address] [place] [address] Performed By: #### 2 4323-8 ####[facility] LABORATORYCLIA [id number] [address] [place] Sodium [Moles/Vol] 140 mmol/L Normal 136-144 [facility] Comment on above: Order Comment: Susie santizo Type: BLOOD SPECIMENOrdering Facility: [facility] [place] [facility] Address: [address] [address] Performed By: #### 2 4323-8 ####[facility] LABORATORYCLIA [id number] [place] [address] [place] Urea nitrogen [Mass/Vol] 11 mg/dL Normal 7-21 [facility] Comment on above: Order Comment: Susie santizo Type: BLOOD SPECIMENOrdering Facility: [facility] [place] [facility] Address: [address] [place] [address] Performed By: #### 2 4323-8 ####ALS[facility] LABORATORYCLIA [id number] [place] [address] [place] LDH SerPl-cCncon 03-27-2022 LDH [Catalytic activity/Vol] 193 U/L Normal 135-214 [facility] Comment on above: Order Comment: Speci men Type: BLOOD SPECIMENOrdering Facility: [facility] [place] [facility] Address: [address] [place] [address] [place] [address] Performed By: #### 2 532-0 ####[facility] LABCLIA [id number] [facility] [address] [address] [facility] [place] ALLIED HEALTHon 03-26-2022 ALLIED HEALTH HNO ID: [id number] Author: Gee Aguiar RT(R) Service: Radiology Author Type: Technologist Type: Allied [...] DEPARTMENT: MR; Exam(s) Completed: Head: Routine Brain [place] MRA Spine: Cervical spine PT COULD NOT FINISH EXAM Patient squeezed emergency ball constantly and couldn't tolerate one minute of scanning before being adjusted. After several false starts, and partial images acquired patient refused additional imaging. Reached out to ordering MD and explained situation. PERIPHERAL IV DATA: Not applicable Pt difficulty tolerating exam SIGNED BY: Juanito Aguiar RT(R) March 26, 2022 5:06 PM Normal [facility] ALLIED HEALTH HNO ID: [id number] Author: Nataliya Pierre RN Service: Infection Prevention [...] Infection Prevention after hours/weekend pager: Contact Nursing Weather Stripper Normal [facility] CBC panel Auto (Bld)on 03-26 Erythrocyte distribution width (RBC) [Ratio] 15.8 % High 11.5-15.0 [facility] Comment on above: Order Comment: Speci men Type: BLOOD SPECIMENOrdering Facility: [facility] [place] [facility] Address: [address] [place] [address] Performed By: #### 5 8410-2 ####[facility] LABORATORYCLIA [id number] [address] [place] Hematocrit (Bld) [Volume fraction] 38.1 % Normal 36.0-46.0 [facility] Comment on above: Order Comment: Speci men Type: BLOOD SPECIMENOrdering Facility: [facility] [place] [facility] Address: [address] [place] [address] Performed By: #### 5 8410-2 ####[facility] LABORATORYCLIA [id number] [address] [place] Hemoglobin (Bld) [Mass/Vol] 12.1 g/dL Normal 11.5-15.5 [facility] Comment on above: Order Comment: Speci men Type: BLOOD SPECIMENOrdering Facility: [facility] Address: [address] [place] [address] Performed By: #### 5 8410-2 ####[facility] LABORATORYCLIA [id number] [address] [place] MCH (RBC) [Entitic mass] 28.9 pg Normal 26.0-34.0 [facility] Comment on above: Order Comment: Speci men Type: BLOOD SPECIMENOrdering Facility: [facility] Address: [address] [place] [address] Performed By: #### 5 8410-2 ####LAMBERT LABORATORYCLIA [id number] [address] [facility] MCHC (RBC) [Mass/Vol] 31.8 g/dL Normal 30.5-36.0 [facility] Comment on above: Order Comment: Speci men Type: BLOOD SPECIMENOrdering Facility: [facility] Address: [address] [place] [address] Performed By: #### 5 8410-2 ####LAMBERT LABORATORYCLIA [id number] [address] MCV (RBC) [Entitic vol] 91.1 fL Normal 80.0-100.0 [facility] Comment on above: Order Comment: Speci men Type: BLOOD SPECIMENOrdering Facility: [facility] Address: [address] [place] [address] Performed By: #### 5 8410-2 ####LAMBERT LABORATORYCLIA [id number] [address] [place] Nucleated RBC (Bld) [#/Vol] 10*3/uL Normal <0.01 [facility] Comment on above: Order Comment: Speci men Type: BLOOD SPECIMENOrdering Facility: [facility] Address: [address] [place] [address] Performed By: #### 5 8410-2 ####LAMBERT LABORATORYCLIA [id number] [address] [facility] Platelet mean volume (Bld) [Entitic vol] 9.6 fL Normal 9.0-12.7 [facility] Comment on above: Order Comment: Speci men Type: BLOOD SPECIMENOrdering Facility: [facility] Address: [address] [place] [address] Performed By: #### 5 8410-2 ####LAMBERT LABORATORYCLIA [id number] [address] [place] Platelets (Bld) [#/Vol] 199 10*3/uL Normal 150-400 [facility] Comment on above: Order Comment: Speci men Type: BLOOD SPECIMENOrdering Facility: [facility] Address: [address] [place] [address] Performed By: #### 5 8410-2 ####ALSIP LABORATORYCLIA [id number] [address] OF [facility] RBC (Bld) [#/Vol] 4.18 10*6/uL Normal 3.90-5.20 [facility] Comment on above: Order Comment: Speci men Type: BLOOD SPECIMENOrdering Facility: [facility] Address: [address] [place] [address] Performed By: #### 5 8410-2 ####ALSIP LABORATORYCLIA [id number] [address] OF [facility] WBC (Bld) [#/Vol] 7.86 10*3/uL Normal 3.70-11.00 [facility] Comment on above: Order Comment: Speci men Type: BLOOD SPECIMENOrdering Facility: [facility] Address: [address] [place] [address] Performed By: #### 5 8410-2 ####ALSIP LABORATORYCLIA [id number] [address] CNCOon 03-26-2022 CNCO Letter Text Normal [facility] CONSULTon 03-26-2022 CONSULT HNO ID: [id number] Author: Kurt Evans MD Service: Infectious Disease Author Type: Physician Type: Consults Filed: 03/26/2022 10:03 PM Note Text: CONSULT: INFECTIOUS DISEASE SERVICE SERVICE DATE: 03/26/2022 SERVICE TIME: 1:01 PM REASON FOR CONSULT: COVID 19 REQUESTING PHYSICIAN: Stephen Guy MD PRIMARY CARE PHYSICIAN: Didier Hicks MD Subjective Ms. Matos is a 56 year old female who initially presented to [facility] ED on 02/28/2022 for slurred speech and left sided weakness. She was then transferred to a stroke facility, [facility], where she was diagnosed with an [...] still feeling poorly and came to the [place] ED. Again she tested positive for COVID, but due to her oxygen requirement and comorbid conditions, she was admitted for Dexamethasone and Remdesivir therapy. She completed 5 days of Remdesivir therapy as inpatient and was then discharged to inpatient rehab for a second time ([facility]) and sent with 5 days of Dexamethasone to complete a total of 10 days of this medication. Patient was improving at [place] facility and was ambulating to the bathroom [...] continual numbness and tingling, she presented to [facility] yesterday (03/25/2022) with these same concerns. In [...] Disp: , Rfl: (more content not included)... [facility] CONSULT HNO ID: [id number] Author: Erwin Ahn Jr., MD Service: Neurology General Author Type: Physician Type: Consults Filed: 03/26/2022 11:06 AM Note Text: TELENEUROLOGY CONSULT PROGRESS NOTE Patient seen using [facility]. Recommendations are placed in the chart. Please review. For questions after hours, when teleneurologist is not available, for Marcela, Meredith and Darleen Please Page [phone] for the [facility] OR For Judy Please page Neurology conditioner tender at [place] [phone] for EMERGENCIES ONLY. Please follow normal inpatient [...] that symptoms initially began 02/28 evaluated at [facility] for slurred speech subsequently was transferred to [facility] and was diagnosed with an acute stroke, patient unable to state location. During the course of hospitalization she notes that she was COIVD + and was transferred to the rehab facility, w/residual left sided weakness, however she left AMA on 03/08. She has not yet had neurology follow-up. She returned home but was not feeling well and presented to [facility] on 03/08 where she was found to be COVID-19 (+), she was treated w/ 5 days of dex (5 days at discharge), and remdesivir d/t [place] oxygen requirement and discharged to rehab at [facility]. She notes that she was dong [...] she could control her left side and perfume maker things, but now cannot control anything at [...] ulcers. Was not d/c'd on antiplt from [facility] per pt, but records show that she [...] weakness and slurred speech. 02/28 went into [facility] and tx'd to [facility]. Was then moved from [facility] to [facility] rehab where she signed herself out due to "verbal abuse" because they said "I was not participating". Went home, and took 20 minutes to get up steps. States that night something was not right, so called squad and admitted to [place] on 03/08/22 where tested + for COVID. Then sent to [place] rehab. Note BP was not elevated at [...] None Brother (more content not included)... Normal [facility] Comprehensive metabolic 2000 panelon 03-26-2022 Albumin [Mass/Vol] 3.4 g/dL Low 3.9-4.9 [facility] Comment on above: Order Comment: Speci men Type: BLOOD SPECIMENOrdering Facility: [facility] Address: [address] [place] [address] Performed By: #### 2 4331-1, 2275-4, 27933-0 ####ALSIP LABORATORYCLIA [id number] [place] [address] [place] ALP [Catalytic activity/Vol] 62 U/L Normal 34-123 [facility] Comment on above: Order Comment: Speci men Type: BLOOD SPECIMENOrdering Facility: [facility] Address: [address] [place] [address] Performed By: #### 2 4331-1, 2275-4, 76135-3 ####ALSIP LABORATORYCLIA [id number] [place] [address] [place] ALT [Catalytic activity/Vol] 15 U/L Normal 7-38 [facility] Comment on above: Order Comment: Speci men Type: BLOOD SPECIMENOrdering Facility: [facility] Address: [address] [place] [address] Performed By: #### 2 4331-1, 4, 16269-9 ####ALSIP LABORATORYCLIA [id number] [place] [address] [place] Anion gap [Moles/Vol] 9 mmol/L Normal 9-18 [facility] Comment on above: Order Comment: Speci men Type: BLOOD SPECIMENOrdering Facility: [facility] Address: [address] [place] [address] Performed By: #### 2 4331-1, 2275-4, 42140-7 ####ALSIP LABORATORYCLIA [id number] [place] [id number] [place] AST [Catalytic activity/Vol] 15 U/L Normal 13-35 [facility] Comment on above: Order Comment: Speci men Type: BLOOD SPECIMENOrdering Facility: [facility] Address: [address] Performed By: #### 2 4331-1, 2275-12, ####LAMBERT LABORATORYCLIA [id number] [place] [address] [place] Bilirubin [Mass/Vol] 0.8 mg/dL Normal 0.2-1.3 [facility] Comment on above: Order Comment: Speci men Type: BLOOD SPECIMENOrdering Facility: [facility] Address: [address] [address] Performed By: #### 2 4331-1, 2275-12, ####LAMBERT LABORATORYCLIA [id number] [place] [address] [place] Calcium [Mass/Vol] 9.2 mg/dL Normal 8.5-10.2 [facility] Comment on above: Order Comment: Speci men Type: BLOOD SPECIMENOrdering Facility: [facility] Address: [facility] [place] [address] Performed By: #### 2 4331-1, 2275-12, ####LAMBERT LABORATORYCLIA [id number] [place] [address] [place] Chloride [Moles/Vol] 100 mmol/L Normal 97-105 [facility] Comment on above: Order Comment: Speci men Type: BLOOD SPECIMENOrdering Facility: [facility] Address: [address] Performed By: #### 2 4331-1, 2275-12, ####LAMBERT LABORATORYCLIA [id number] [place] [address] [place] CO2 [Moles/Vol] 30 mmol/L Normal 22-30 [facility] Comment on above: Order Comment: Speci men Type: BLOOD SPECIMENOrdering Facility: [facility] Address: [address] Performed By: #### 2 4331-1, 2276-4, 45406-7 ####ALSIP LABORATORYCLIA [id number] [place] [address] [place] [facility] Creatinine [Mass/Vol] 0.64 mg/dL Normal 0.58-0.96 [facility] Comment on above: Order Comment: Susie santizo Type: BLOOD SPECIMENOrdering Facility: [facility] Address: [address] [address] [address] Performed By: #### 2 4331-1, 6-4, 04384-1 ####ALSIP LABORATORYCLIA [id number] [place] [id number] [place] ESTIMATED GLOMERULAR FILTRATION RATE 105 mL/min/1.73m??? Normal >=60 [facility] Comment on above: Order Comment: Susie santizo Type: BLOOD SPECIMENOrdering Facility: [facility] Address: [address] [place] [address] Result Comment: Cecille mated Glomerular Filtration Rate [...] actual GFR. Performed By: #### 2 4331-1, 6-4, 96775-4 ####ALSIP LABORATORYCLIA [id number] [place] [id number] [place] Glucose [Mass/Vol] 129 mg/dL High 74-99 [facility] Comment on above: Order Comment: Susie santizo Type: BLOOD SPECIMENOrdering Facility: [facility] Address: [address] [place] [address] Result Comment: The [place] Diabetes Association (ADA) provides guidance for cutoff [...] Standards of Medical Care in Diabetes 2016, [place] Diabetes Association. Diabetes Care. 2016.39(Suppl 1). Performed By: #### 2 4331-1, 2275-4, ####LAMBERT LABORATORYCLIA [id number] [place] [address] [place] Potassium [Moles/Vol] 3.9 mmol/L Normal 3.7-5.1 [facility] Comment on above: Order Comment: Susie santizo Type: BLOOD SPECIMENOrdering Facility: [facility] Address: [address] [place] [address] Performed By: #### 2 4331-1, 2275-12, ####LAMBERT LABORATORYCLIA [id number] [place] [address] [place] Protein [Mass/Vol] 6.8 g/dL Normal 6.3-8.0 [facility] Comment on above: Order Comment: Susie santizo Type: BLOOD SPECIMENOrdering Facility: [facility] Address: [address] [place] [address] Performed By: #### 2 4331-1, 2275-12, ####LAMBERT LABORATORYCLIA [id number] [place] [address] [place] Sodium [Moles/Vol] 139 mmol/L Normal 136-144 [facility] Comment on above: Order Comment: Susie santizo Type: BLOOD SPECIMENOrdering Facility: [facility] Address: [address] [place] [address] Performed By: #### 2 4331-1, 2275-12, ####LAMBERT LABORATORYCLIA [id number] [place] [address] [place] Urea nitrogen [Mass/Vol] 11 mg/dL Normal 7-21 [facility] Comment on above: Order Comment: Susie santizo Type: BLOOD SPECIMENOrdering Facility: [facility] Address: [address] [place] [address] Performed By: #### 2 4331-1, 2276-4, 50242-7 ####LAMBERT LABORATORYCLIA [id number] [address] STATES OF [facility] ECHOCon 03-26-2022 [facility] Echocardiography Report: Transthoracic Echo [facility] Date of service: 03/26/2022 8:48:44 AM Ordering physician: DEONTE DOUGLAS Indication: Stroke Technologist: Ana M Stevens RD Interpreting physician: Jo Ann Kimble MD PATIENT: [...] * * Final * * * CC [facility] : [id number] Normal [facility] Ferritin SerPl-mCncon 2021 Ferritin [Mass/Vol] 176.5 ng/mL Normal 14.7-205.1 [facility] Comment on above: Order Comment: Speci men Type: BLOOD SPECIMENOrdering Facility: [facility] Address: [address] [place] [address] Performed By: #### 2 4331-1, 2276-4, 08918-9 ####ALSIP LABORATORYCLIA [id number] [place] [address] [place] HCG Preg Ur Qlon 03-26-2022 HCG ( test) Ql (U) Negative Normal Negative [facility] Comment on above: Order Comment: Susie santizo Type: URINE SPECIMENOrdering Facility: [facility] Address: [address] [place] [address] Result Comment: This test is intended to aid in the early detection of . Very dilute urine samples, as indicated by a low specific gravity, may not contain technical service representative levels of hCG. This test detects [...] for . Performed By: #### 2 106-3 ####ALSIP LABORATORYCLIA [id number] [address] [place] Lipid 1996 panelon 2 Cholesterol [Mass/Vol] 152 mg/dL Normal <200 [facility] Comment on above: Order Comment: Susie santizo Type: BLOOD SPECIMENOrdering Facility: [facility] Address: [address] [place] [phone] Result Comment: <200 mg/dL, Desirable 200-239 mg/dL, Borderline high >239 mg/dL, High Performed By: #### 2 4331-1, 2276-4, 07140-3 ####ALSIP LABORATORYCLIA [id number] [address] STATES OF [facility] Cholesterol in HDL [Mass/Vol] 38 mg/dL Low >39 [facility] Comment on above: Order Comment: Susie santizo Type: BLOOD SPECIMENOrdering Facility: [facility] Address: [address] [place] [address] Result Comment: 40-5 9 mg/dL, Acceptable >59 mg/dL, High: Negative risk factor for coronary heart disease <40 mg/dL, Low: Positive risk factor for coronary heart disease Performed By: #### 2 4331-1, 2275-12, ####LAMBERT LABORATORYCLIA [id number] [place], [place] [address] [place] [address] [place] [facility] Cholesterol in LDL [Mass/Vol] 87 mg/dL Normal <100 [facility] Comment on above: Order Comment: Speci men Type: BLOOD SPECIMENOrdering Facility: [facility] Address: [address] [place] [address] Result Comment: <100 mg/dL, Optimal 100-129 mg/dL, Near optimal/above optimal 130-159 mg/dL, Borderline high 160-189 mg/dL, High >189 mg/dL, Very high Secondary prevention optimal LDL Cholesterol levels are recommended to be < 70 mg/dL Performed By: #### 2 4331-1, 2275-12, ####LAMBERT LABORATORYCLIA [id number] [address] Cholesterol in LDL/Cholesterol in HDL [Mass ratio] 2.29 {ratio} Normal <2.54 [facility] Comment on above: Order Comment: Speci men Type: BLOOD SPECIMENOrdering Facility: [facility] Address: [address] [place] [address] Result Comment: Refe rence: 1. National Cholesterol Education Program ATP III Guideline At-A-Glance Quick Desk Reference: National Heart, Lung, and Blood [place]. National Institutes of Health. 2001: NIH Publication No. 01-3305. 2. An International Atherosclerosis Society position paper: global recommendations for the management of dyslipidemia: executive summary, Atherosclerosis. 2014: 232(2):410-413. Performed By: #### 2 4331-1, 2275-12, ####LAMBERT LABORATORYCLIA [id number] [place] [id number] [facility] Cholesterol in VLDL [Mass/Vol] 27 mg/dL Normal <30 [facility] Comment on above: Order Comment: Tristiani men Type: BLOOD SPECIMENOrdering Facility: [facility] Address: [address] [place] [address] Performed By: #### 2 4331-1, 2275-12, ####LAMBERT LABORATORYCLIA [id number] [place], [place] [address] [place] [address] [place] Cholesterol non HDL [Mass/Vol] 114 mg/dL Normal <130 [facility] Comment on above: Order Comment: Speci men Type: BLOOD SPECIMENOrdering Facility: [facility] Address: [address] [place] [place] [address] Result Comment: <130 mg/dL, Optimal 130-159 mg/dL, Near optimal/above optimal 160-189 mg/dL, Borderline high 190-219 mg/dL, High >219 mg/dL, Very high Secondary prevention optimal non HDL Cholesterol levels are recommended to be <100 mg/dL Performed By: #### 2 4331-1, 2275-12, ####LAMBERT LABORATORYCLIA [id number] [address] Cholesterol.total/Willow sterol in HDL [Mass ratio] 4.00 {ratio} Normal <5.10 [facility] Comment on above: Order Comment: Speci men Type: BLOOD SPECIMENOrdering Facility: [facility] Address: [address] [place] [address] Performed By: #### 2 4331-1, 2275-12, ####LAMBERT LABORATORYCLIA [id number] [address] FASTING TIME 12 hrs Normal [facility] Comment on above: Order Comment: Speci men Type: BLOOD SPECIMENOrdering Facility: [facility] Address: [address] [place] [place] [address] Performed By: #### 2 4331-1, 2275-12, ####LAMBERT LABORATORYCLIA [id number] [address] OF [place] Triglyceride [Mass/Vol] 134 mg/dL Normal <150 [facility] Comment on above: Order Comment: Speci men Type: BLOOD SPECIMENOrdering Facility: [facility] Address: [address] [place] [place] [address] Result Comment: <150 mg/dL, Normal 150-199 mg/dL, Borderline high 200-499 mg/dL, High >499 mg/dL, Very high Performed By: #### 2 4331-1, 2276-4, 00757-3 ####LAMBERT LABORATORYCLIA [id number] [address] [place] MRA BRAIN WO IVCONon 022 MRA BRAIN WO IVCON * * *Final Report* * * DATE OF EXAM: Mar 26 2022 5:21PM [facility] 0272 - MRA BRAIN WO IVCON / [...] High resolution, short echo time intracranial 3D kjoi-qj-vbcwoj MRA axial gradient echo volume acquisition of [...] a moderate ACOMM. Visualized proximal KENNEDY, MCA, COOK TACO territory vessels are grossly symmetric without acute [...] CORRUPTED CERVICAL SEQUENCE, DEMONSTRATES NO DOMINANT ABNORMALITY X Ray Developing Machine Operator: [facility] MADISONVILLEKarthik Transcribe Date/Time: Mar 26 2022 5:29P Dictated by : RIKKI MATOS MD This examination was interpreted and the report reviewed and electronically signed by: RIKKI MATOS MD on Mar 26 2022 5:39PM EST [id number] Normal [facility] MRI BRAIN WO IVCONon 022 MRI BRAIN WO IVCON * * *Final Report* * * DATE OF EXAM: Mar 26 2022 5:21PM [facility] 0294 - MRI BRAIN WO IVCON / [...] High resolution, short echo time intracranial 3D xeqe-co-xhasez MRA axial gradient echo volume acquisition of [...] a moderate ACOMM. Visualized proximal KENNEDY, MCA, COOK TACO territory vessels are grossly symmetric without acute [...] CORRUPTED CERVICAL SEQUENCE, DEMONSTRATES NO DOMINANT ABNORMALITY X Ray Developing Machine Operator: JAIMIE Transcribe Date/Time: Mar 26 2022 5:29P Dictated by : RIKKI MATOS MD This examination was interpreted and the report reviewed and electronically signed by: RIKKI MATOS MD on Mar 26 2022 5:39PM EST [id number] [facility] MRI CERVICAL SPINE WO IVCONo n 03-26-2022 MRI CERVICAL SPINE WO IVCON * * *Final Report* * * DATE OF EXAM: Mar 26 2022 5:21PM [facility] 0297 - MRI CERVICAL SPINE WO IVCON [...] High resolution, short echo time intracranial 3D emfc-er-kthjlu MRA axial gradient echo volume acquisition of [...] a moderate ACOMM. Visualized proximal KENNEDY, MCA, COOK TACO territory vessels are grossly symmetric without acute [...] CORRUPTED CERVICAL SEQUENCE, DEMONSTRATES NO DOMINANT ABNORMALITY 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 Transcribe Date/Time: Mar 26 2022 5:29P Dictated by : RIKKI MATOS MD This examination was interpreted and the report reviewed and electronically signed by: RIKKI MATOS MD on Mar 26 2022 5:39PM EST [id number] Normal [facility] THERAPY NTon 03-26-2022 THERAPY NT HNO ID: [id number] Author: Ramona Hernandez CCC-ROADS SUPERVISOR Service: Speech/Swallow Author Type: Speech Language Pathologist Type: Therapy (PT/OT/Speech/Resp) Filed: 03/26/2022 3:03 PM Note Text: Speech Therapy Speech Evaluation, Clinical Swallow Evaluation SERVICE DATE: 03/26/2022 SERVICE TIME: 1421 to 1446 ROOM: [place] [address] IMPRESSION: Functional communication without limitations in: Speech, [...] cerebrovascular disease Interventions Provided: Speech Language Eval (13198);Clinical Swallow Evaluation (14378) $ Speech Language Eval (65537) Billed Units: 1 unit $ Clinical Swallow Evaluation (86809) Billed Units: 1 unit Training and education [...] for this therapy evaluation/treatment. SIGNATURE: Ramona Hernandez CCC-ROADS SUPERVISOR PATIENT NAME: Bradley Matos DATE: March 26, 2022 TIME: 3:02 PM Normal [facility] THERAPY NT HNO ID: [id number] Author: Kaci Parra PT Service: Physical Therapy Author Type: Physical Therapist Type: Therapy (PT/OT/Speech/Resp) Filed: 03/26/2022 1:28 PM Note Text: Physical Therapy Evaluation SERVICE DATE: 03/26/2022 SERVICE TIME: 1050 to 1135 ROOM: [place] [address] Recommended Discharge Disposition: Acute Rehab Recommended Discharge [...] MRI. Diagnosed with acute stroke 02/28 at [facility] + COVID transferred to rehab. Admitted to [place] ED 03/08 with +COVID, and discharged to [facility] for rehab. On 03/20/22 patient experienced [...] ascends/descends stairs laterally. 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 Was ambulating [...] pad to progre (more content not included)... Normal [facility] THERAPY NT HNO ID: [id number] Author: ADELAIDE Hi/Tatum Service: Occupational Therapy Author Type: Occupational Therapist Type: Therapy (PT/OT/Speech/Resp) Filed: 03/26/2022 1:14 PM Note Text: Occupational Therapy Evaluation SERVICE DATE: 03/26/2022 SERVICE TIME: 1125 to 1155 ROOM: [place] [address] Recommended Discharge Disposition: Acute Rehab Recommended Discharge [...] MRI. Diagnosed with acute stroke 02/28 at [facility] + COVID transferred to rehab. Admitted to [place] ED 03/08 with +COVID, and discharged to [facility] for rehab. On 03/20/22 patient experienced [...] ascends/descends stairs laterally. 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 Was ambulating [...] to maintain balanc (more content not included)... [facility] THERAPY NT HNO ID: [id number] Author: Ramona Hernandez CCC-ROADS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 ####[facility] [id number] [address] [place] NURSING PROGon 03-25-2022 NURSING PROG HNO ID: [id number] Author: Joelle Johnson, RN Service: Nursing Author Type: Registered Nurse [...] Dr Gutierrez of above noted assessment Normal [facility] SARS-CoV-2 RNA Resp Ql SAVANNAH+p robeon 03-25-2022 SARS-CoV-2 (COVID-19) RNA SAVANNAH+probe Ql (Resp) COVID 19 RESULT: SARS-CoV-2 (Agent of COVID-19) Detected by RT-PCR or equivalent method. This test has been authorized by FDA under an Emergency Use Authorization (EUA). Normal [facility] Comment on above: Performed By: #### 9 4500-6 ####[facility] [id number] [place] [address] [facility] SOCIAL WORKon 03-25-2022 SOCIAL WORK HNO ID: [id number] Author: ANH Dunaway Service: Social Work Author Type: Marketing Admin Type: Social Work Filed: 03/25/2022 3:46 PM Note Text: SOCIAL WORK PROGRESS NOTE Name: Bradley Matos Patient sent to ED. ROMANA faxed Medicaid application, which patient had completed, to [facility] [employer]. Mailed patient's Financial Assistance (HCAP) application to [facility]. ROMANA had [employer] take a copy of patient's Medicaid and HCAP Applications to patient and to let patient know they have been sent. Signature: No Greene Date: March 25, 2022 Time: 3:41 PM Normal [facility] THERAPY NTon 03-25-2022 THERAPY NT HNO ID: [id number] Author: ADELAIDE Allen/L Service: Occupational Therapy Author Type: Occupational Therapist Type: Therapy (PT/OT/Speech/Resp) Filed: 03/26/2022 10:54 AM Note Text: Summary: OT Discharge Note Occupational Therapy Group Home Facility Discharge Summary ROOM: [place] [address] Date of Discharge: 03/25/2022 This patient was transferred to the [facility] ED and subsequently discharged to [facility] due to change in medical condition. Pt [...] March 26, 2022 TIME: 10:52 AM Normal [facility] THERAPY NT HNO ID: [id number] Author: HILDA Allen Service: Occupational Therapy Author Type: Occupational Therapist Type: Therapy (PT/OT/Speech/Resp) Filed: 03/25/2022 2:59 PM Note Text: OCCUPATIONAL THERAPY MISSED VISIT SERVICE DATE: 03/25/2022 SERVICE TIME: 1000 to 1001 ROOM: [place] [address] Patient not seen due to Illness (Pt was being transferred to [facility] ED due to change in medical condition). SIGNATURE: HILDA Allen PATIENT NAME: Bradley Matos DATE: March 25, 2022 TIME: 2:59 PM Normal [facility] THERAPY NT HNO ID: [id number] Author: Radha Horowitz PTA Service: Physical Therapy Author Type: Food Order Delivery Runner Type: Therapy (PT/OT/Speech/Resp) Filed: 03/25/2022 11:55 AM Note Text: Attestation signed by Jody Ireland PT at 03/25/2022 1:28 PM I reviewed and agree with the documentation corresponding to this therapy visit. SIGNATURE: Jody Ireland, PAULETTE DATE: March 25, 2022 TIME: 1:28 PM PHYSICAL THERAPY MISSED VISIT SERVICE DATE: 03/25/2022 SERVICE TIME: 1100 to 1103 ROOM: [place] [address] Patient not seen due to (out of dept trans to ED). SIGNATURE: Radha Horowitz PTA PATIENT NAME: Bradley Matos DATE: March 25, 2022 TIME: 11:55 AM Normal [facility] Urinalysis complete panel (U )on 03-25-2022 Bilirubin Ql (U) Negative Normal Negative [facility] Comment on above: Order Comment: Susie santizo Type: BLOOD SPECIMEN [facility] Address: [address] [place] [address] Performed By: #### 2 4321-2 #### [facility] CLIA [id number] [address] Clarity (Unsp spec) Clear Normal Clear [facility] Comment on above: Order Comment: Susie santizo Type: BLOOD SPECIMEN [facility] Address: [address] [address] Performed By: #### 2 4321-2 #### [facility] CLIA [id number] [address] Color (U) Yellow Normal Yellow [facility] Comment on above: Order Comment: Speci men Type: BLOOD SPECIMEN [facility] Address: [address] [place] [address] Performed By: #### 2 4321-2 #### [facility] CLIA [id number] [address] [place] [address] [place] Epithelial cells LM.HPF (Urine sed) [#/Area] Few Normal [facility] Comment on above: Order Comment: Speci men Type: BLOOD SPECIMEN [facility] Address: [address] [place] [address] Performed By: #### 2 4321-2 #### [facility] CLIA [id number] [address] [place] [address] [facility] [place] Glucose Test strip (U) [Mass/Vol] Negative Normal Negative [facility] Comment on above: Order Comment: Speci men Type: BLOOD SPECIMEN [facility] Address: [address] [place] [address] Performed By: #### 2 4321-2 #### [facility] CLIA [id number] [address] [place] [address] [place] Hemoglobin Ql (U) Negative Normal Negative [facility] Comment on above: Order Comment: Speci men Type: BLOOD SPECIMEN [facility] Address: [address] [place] [address] Performed By: #### 2 4321-2 #### [facility] CLIA [id number] [address] [place] [address] [place] Ketones Ql (U) Negative Normal Negative [facility] Comment on above: Order Comment: Speci men Type: BLOOD SPECIMEN [facility] Address: [address] [place] [address] Performed By: #### 2 4321-2 #### [facility] CLIA [id number] [address] [place] [address] [place] Leukocyte esterase Test strip Ql (U) Negative Normal Negative [facility] Comment on above: Order Comment: Speci men Type: BLOOD SPECIMEN [facility] Address: [address] [place] [address] Performed By: #### 2 4321-2 #### [facility] CLIA [id number] [address] [place] [address] [place] Nitrite Ql (U) Negative Normal Negative [facility] Comment on above: Order Comment: Speci men Type: BLOOD SPECIMEN [facility] Address: [address] [place] [address] Performed By: #### 2 4321-2 #### [facility] CLIA [id number] [address] [place] pH (U) 6.5 [pH] Normal 5.0-8.0 [facility] Comment on above: Order Comment: Speci men Type: BLOOD SPECIMEN [facility] Address: [address] [place] [address] Performed By: #### 2 4321-2 #### [facility] CLIA [id number] [address] [place] Protein (U) [Mass/Vol] Negative Normal Negative [facility] Comment on above: Order Comment: Speci men Type: BLOOD SPECIMEN [facility] Address: [address] [place] [address] Performed By: #### 2 4321-2 #### [facility] CLIA [id number] [address] [place] [address] [facility] [place] RBC LM.HPF (Urine sed) [#/Area] 0-3 /HPF Normal 0-3 /HPF [facility] Comment on above: Order Comment: Speci men Type: BLOOD SPECIMEN [facility] Address: [address] [place] [address] Performed By: #### 2 4321-2 #### [facility] CLIA [id number] [address] [place] [address] Specific gravity (U) [Rel density] 1.010 Normal 1.005-1.030 [facility] Comment on above: Order Comment: Speci men Type: BLOOD SPECIMEN [facility] Address: [address] [place] [address] Performed By: #### 2 4321-2 #### [facility] CLIA [id number] [address] [place] [address] Urobilinogen Ql (U) 1.0 EU/dL Normal 0.2-1.0 EU/dL [facility] Comment on above: Order Comment: Speci men Type: BLOOD SPECIMEN [facility] Address: [address] [place] [address] Performed By: #### 2 4321-2 #### [facility] CLIA [id number] [address] [place] [address] WBC LM.HPF (Urine sed) [#/Area] 0-5 /HPF Normal 0-5 /HPF [facility] Comment on above: Order Comment: Speci men Type: BLOOD SPECIMEN [facility] Address: [address] [place] [address] Performed By: #### 2 4321-2 #### [facility] CLIA [id number] [address] [place] [address] XR CHEST 1V FRONTALon 2021 XR CHEST [...] fractures IMPRESSION: No acute radiographic traumatic abnormality. X Ray Developing Machine Operator: [facility] Transcribe Date/Time: Mar 25 2022 12:53P Dictated by : ALEXANDER TAYLOR MD This examination was interpreted and the report reviewed and electronically signed by: ALEXANDER TAYLOR MD on Mar 25 2022 12:54PM EST [id number] [facility] XR HIP 3V PELV+ AP/LAT LTon 03-25-2022 [...] Consider crosstable lateral view. Left hip osteoarthritis. X Ray Developing Machine Operator: [facility] Transcribe Date/Time: Mar 26 2022 7:02A Dictated by : Chris TOLENTINO MD This examination was interpreted and the report reviewed and electronically signed by: Chris TOLENTINO MD on Mar 26 2022 7:09AM EST [id number] [facility] XR SHLDR >/=3V AP/JUJU AP/OTH R LTon [...] are seen. IMPRESSION: No acute traumatic abnormality X Ray Developing Machine Operator: PSC[facility]arthik Transcribe Date/Time: Mar 25 2022 12:50P Dictated by : ALEXANDER TAYLOR MD This examination was interpreted and the report reviewed and electronically signed by: ALEXANDER TAYLOR MD on Mar 25 2022 12:53PM EST [id number] [facility] NURSING PROGon 03-24-2022 NURSING PROG HNO ID: [id number] Author: Waleska Mcneill RN Service: Nursing Author Type: Registered Nurse Type: Nursing Progress Note Filed: 03/24/2022 9:48 PM Note Text: Nursing Progress Note Patient Name: Bradley Matos Patient Location: [place] [address]/[facility] Daily Note:Pt informed that there are only 7 doses of her aciphex left, with one refill left on the prescription. Pt states she will call for a refill prior to d/c, once her insurance paperwork is filled out This note was completed by: Waleska Mcneill [facility] THERAPY NTon 03-24-2022 THERAPY NT HNO ID: [id number] Author: Radha Horowitz PTA Service: Physical Therapy Author Type: Food Order Delivery Runner Type: Therapy (PT/OT/Speech/Resp) Filed: 03/24/2022 10:08 AM Note Text: Attestation signed by Jody Ireland PT at 03/24/2022 2:44 PM I reviewed and agree with the documentation corresponding to this therapy visit. SIGNATURE: Jody Ireland, PT DATE: March 24, 2022 TIME: 2:44 PM Physical Therapy Group Home Facility Treatment SERVICE DATE: 03/24/2022 SERVICE TIME: 45 to 999 ROOM: [place] [address] Recommended Discharge Disposition: Home PT Recommended Discharge [...] Eyewear Current Hospital Course: 03/13/22: Admitted to [facility] on 03/13 for rehabilitation in anticipation of transition to home independently. 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 Normal [facility] THERAPY NTon 03-23-2022 THERAPY NT HNO ID: [id number] Author: Cassandra Mello OTR/L Service: Occupational Therapy Author Type: Occupational Therapist Type: Therapy (PT/OT/Speech/Resp) Filed: 03/23/2022 1:01 PM Note Text: Occupational Therapy Group Home Facility Treatment SERVICE DATE: 03/23/2022 SERVICE TIME: 1245 to 1257 ROOM: [place] [address] Recommended Discharge Disposition: Home OT Recommended Discharge Disposition Comments: pt likley to d/c w/ assist from [facility] Anticipated Discharge Needs: Equipment OT 6 Clicks Score: 19 Precaution/Activity Restriction Comments: Post-CVA with left sided deficits; COVID-19 isolation initiated 03/13/22 Isolation Type: Contact AND Droplet Precautions-Plus Eyewear Current Hospital Course: 03/13/22: Admitted to [facility] on 03/13 for rehabilitation in anticipation of transition to home independently. 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 Normal [facility] THERAPY NT HNO ID: [id number] Author: Jody Ireland, PT Service: Physical Therapy Author Type: Physical Therapist Type: Therapy (PT/OT/Speech/Resp) Filed: 03/24/2022 2:58 PM Note Text: Physical Therapy Group Home Facility Treatment SERVICE DATE: 03/23/2022 SERVICE TIME: 1015 to 1055 ROOM: [place] [address] Recommended Discharge Disposition: Home PT Recommended Discharge [...] Eyewear Current Hospital Course: 03/13/22: Admitted to [facility] on 03/13 for rehabilitation in anticipation of transition to home independently. 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 Normal [facility] Basic metabolic 2000 panelon 03-22-2022 Anion gap [Moles/Vol] 9 mmol/L Normal 9-18 [facility] Comment on above: Order Comment: Speci men Type: BLOOD SPECIMEN [facility] Address: [address] [place] [address] Performed By: #### 2 4321-2 #### [facility] CLIA [id number] [address] [place] [address] [place] Calcium [Mass/Vol] 8.6 mg/dL Normal 8.5-10.2 [facility] Comment on above: Order Comment: Speci men Type: BLOOD SPECIMEN [facility] Address: [address] [place] [address] Performed By: #### 2 4321-2 #### [facility] CLIA [id number] [address] [place] [address] [place] Chloride [Moles/Vol] 99 mmol/L Normal 97-105 [facility] Comment on above: Order Comment: Speci men Type: BLOOD SPECIMEN [facility] Address: [address] [place] [address] Performed By: #### 2 4321-2 #### [facility] CLIA [id number] [address] [place] [address] [place] CO2 [Moles/Vol] 30 mmol/L Normal 22-30 [facility] Comment on above: Order Comment: Speci men Type: BLOOD SPECIMEN [facility] Address: [address] [place] [address] Performed By: #### 2 4321-2 #### [facility] CLIA [id number] [address] [place] [address] [place] Creatinine [Mass/Vol] 0.80 mg/dL Normal 0.58-0.96 [facility] Comment on above: Order Comment: Susie santizo Type: BLOOD SPECIMEN [facility] Address: [address] [id number] Performed By: #### 2 4321-2 #### [facility] CLIA [id number] [address] [place] [address] [place] ESTIMATED GLOMERULAR FILTRATION RATE 88 mL/min/1.73m??? Normal >=60 [facility] Comment on above: Order Comment: Susie santizo Type: BLOOD SPECIMEN [facility] Address: [address] [place], [place] [address] Result Comment: Cecille mated Glomerular Filtration Rate [...] #### 2 4321-2 #### [facility] CLIA [id number] [address] [place] [id number] [place] Glucose [Mass/Vol] 121 mg/dL High 74-99 [facility] Comment on above: Order Comment: Susie santizo Type: BLOOD SPECIMEN [facility] Address: [address] [place] [address] Result Comment: The [place] Diabetes Association (ADA) provides guidance for cutoff [...] Standards of Medical Care in Diabetes 2016, Swiss Diabetes Association. Diabetes Care. 2016.39(Suppl 1). Performed By: #### 2 4321-2 #### [facility] CLIA [id number] [address] [place] [address] [place] Potassium [Moles/Vol] 4.1 mmol/L Normal 3.7-5.1 [facility] Comment on above: Order Comment: Speci men Type: BLOOD SPECIMEN [facility] Address: [address] [place] [address] Performed By: #### 2 4321-2 #### [facility] CLIA [id number] [address] [place] [address] [place] Sodium [Moles/Vol] 138 mmol/L Normal 136-144 [facility] Comment on above: Order Comment: Speci men Type: BLOOD SPECIMEN [facility] Address: [address] [place] [address] Performed By: #### 2 4321-2 #### [facility] CLIA [id number] [address] [place] [address] [place] OF [facility] Urea nitrogen [Mass/Vol] 14 mg/dL Normal 7-21 [facility] Comment on above: Order Comment: Speci men Type: BLOOD SPECIMEN [facility] Address: [address] [place] [address] Performed By: #### 2 4321-2 #### [facility] CLIA [id number] [address] [place], [place] [address] [place] CBC panel Auto (Bld)on 03-22 Erythrocyte distribution width (RBC) [Ratio] 15.8 % High 11.5-15.0 [facility] Comment on above: Order Comment: Speci men Type: BLOOD SPECIMEN [facility] Address: [address] [place] [address] Performed By: #### 2 4321-2 #### [facility] CLIA [id number] [address] [place] [address] [facility] Hematocrit (Bld) [Volume fraction] 41.1 % Normal 36.0-46.0 [facility] Comment on above: Order Comment: Speci men Type: BLOOD SPECIMEN [facility] Address: [address] [place] [address] Performed By: #### 2 4321-2 #### [facility] CLIA [id number] [address] [place] [address] [facility] Hemoglobin (Bld) [Mass/Vol] 12.6 g/dL Normal 11.5-15.5 [facility] Comment on above: Order Comment: Speci men Type: BLOOD SPECIMEN [facility] Address: [address] [place] [address] Performed By: #### 2 4321-2 #### [facility] CLIA [id number] [address] [place], [place] [id number] [place] [address] [place] MCH (RBC) [Entitic mass] 28.5 pg Normal 26.0-34.0 [facility] Comment on above: Order Comment: Speci men Type: BLOOD SPECIMEN [facility]ing [facility] Address: [address] [place] [address] Performed By: #### 2 4321-2 #### [facility] CLIA [id number] [address] [place] [address] [place] MCHC (RBC) [Mass/Vol] 30.7 g/dL Normal 30.5-36.0 [facility] Comment on above: Order Comment: Speci men Type: BLOOD SPECIMEN [facility]ing [facility] Address: [address] [place] [address] Performed By: #### 2 4321-2 #### [facility] CLIA [id number] [address] [place] [address] [facility] [place] MCV (RBC) [Entitic vol] 93.0 fL Normal 80.0-100.0 [facility] Comment on above: Order Comment: Speci men Type: BLOOD SPECIMEN Ordering Facility: [facility] Address: [address] [place] [address] Performed By: #### 2 4321-2 #### [facility] CLIA [id number] [address] [place] [address] [place] Platelet mean volume (Bld) [Entitic vol] 9.9 fL Normal 9.0-12.7 [facility] Comment on above: Order Comment: Speci men Type: BLOOD SPECIMEN Ordering Facility: [facility] Address: [address] [place], [place] [address] Performed By: #### 2 4321-2 #### [facility] CLIA [id number] [address] [place] [address] [place] Platelets (Bld) [#/Vol] 176 10*3/uL Normal 150-400 [facility] Comment on above: Order Comment: Speci men Type: BLOOD SPECIMEN Ordering Facility: [facility] Address: [address] [place] [address] Performed By: #### 2 4321-2 #### [facility] CLIA [id number] [address] [place] [address] [place] RBC (Bld) [#/Vol] 4.42 10*6/uL Normal 3.90-5.20 [facility] [facility] Comment on above: Order Comment: Speci men Type: BLOOD SPECIMEN Ordering Facility: [facility] Address: [address] [place], [place] [address] Performed By: #### 2 4321-2 #### [facility] CLIA [id number] [address] [place] [address] [place] WBC (Bld) [#/Vol] 10.26 10*3/uL Normal 3.70-11.00 [facility] Comment on above: Order Comment: Speci men Type: BLOOD SPECIMEN Ordering Facility: [facility] Address: [address] [place], [place] [address] Performed By: #### 2 4321-2 #### [facility] CLIA [id number] [address] [place] [address] [place] [facility] NURSING PROGon 03-22-2022 NURSING PROG HNO ID: [id number] Author: Elayne Sharma RN Service: Nursing Author Type: Registered Nurse Type: Nursing Progress Note Filed: 03/22/2022 3:40 PM Note Text: Nursing Progress Note Patient Name: Bradley Matos Patient Location: Daily Note: Called to room per patient. [...] was completed by: Elayne Sharma [facility] SOCIAL WORKon 03-22-2022 SOCIAL WORK HNO ID: [id number] Author: ANH Dunaway Service: Social Work Author Type: Marketing Admin Type: Social Work Filed: 03/22/2022 3:05 PM Note Text: Summary: Patient Care Conference SOCIAL WORK PROGRESS NOTE Name: Bradley Matos Patient Care Conference held. Daiana Monge, on speaker phone. Discharge planned for 03/27 to home. Due to patient's Medicare being inactive, patient will be given an extensive home exercise program upon discharge. Patient to work on Medicaid and HCAP applications. also gave patient the phone number for the FInancial Counselor at [facility]. Patient and daughter are agreeable with 03/27 discharge. Signature: Nokamron Greene Date: March 22, 2022 Time: 2:57 PM Normal [facility] THERAPY NTon 03-22-2022 THERAPY NT HNO ID: [id number] Author: Jody Ireland PT Service: Physical Therapy Author Type: Physical Therapist Type: Therapy (PT/OT/Speech/Resp) Filed: 03/22/2022 5:41 PM Note Text: Patient care conference held with patient and daughter (via phone). PT, OT and Supply Chain Generalist in attendance. Reviewed patient current PT status, [...] specific details of discussion/education provided. Therapeutic Activity (95438) Treatment Minutes: 16 $ Therapeutic Activity (59150) Billed Units: 1 unit Jody Ireland PT Normal [facility] THERAPY NT HNO ID: [id number] Author: ADELAIDE Suh/Tatum Service: Occupational Therapy Author [...] at d/c pending patient's progress. .Therapeutic Activity (11595) Treatment Minutes: 13 $ Therapeutic Activity (20886) Billed Units: 1 unit Normal [facility] THERAPY NT HNO ID: [id number] Author: ADELAIDE Schwartz/L Service: Occupational Therapy Author Type: Occupational Therapist Type: Therapy (PT/OT/Speech/Resp) Filed: 03/22/2022 1:57 PM Note Text: Occupational Therapy Group Home Facility Treatment SERVICE DATE: 03/22/2022 SERVICE TIME: 1310 to 1346 ROOM: [place] [address] Recommended Discharge Disposition: Home OT Recommended Discharge Disposition Comments: pt likley to d/c w/ assist from HHT Anticipated Discharge Needs: Equipment OT 6 Clicks Score: 19 Precaution/Activity Restriction Comments: Post-CVA with left sided deficits; COVID-19 isolation initiated 03/13/22 Isolation Type: Contact AND Droplet Precautions-Plus Eyewear Current Hospital Course: 03/13/22: Admitted to [facility] on 03/13 for rehabilitation in anticipation of transition to home independently. 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 Normal [facility] THERAPY NT HNO ID: [id number] Author: oJdy Ireland PT Service: Physical Therapy Author Type: Physical Therapist Type: Therapy (PT/OT/Speech/Resp) Filed: 03/22/2022 12:38 PM Note Text: Physical Therapy Group Home Facility Treatment SERVICE DATE: 03/22/2022 SERVICE TIME: 1030 to 1105 ROOM: [place] [address] Recommended Discharge Disposition: Home PT Recommended Discharge [...] Eyewear Current Hospital Course: 03/13/22: Admitted to [facility] on 03/13 for rehabilitation in anticipation of transition to home independently. 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 [...] home with (more content not included)... Normal [facility] NURSING PROGon 03-21-2022 NURSING PROG HNO ID: [id number] Author: Diaz Mitchell RN Service: ? Author Type: Registered Nurse Type: Nursing Progress Note Filed: 03/21/2022 9:42 PM Note Text: Nursing Progress Note Patient Name: Bradley Matos Patient Location: / Daily Note: This RN entered room to [...] was completed by: Diaz Mitchell [facility] NURSING PROG HNO ID: [id number] Author: Elayne Sharma RN Service: Nursing Author Type: Registered Nurse Type: Nursing Progress Note Filed: 03/21/2022 7:59 PM Note Text: Nursing Progress Note Patient Name: Bradley Matos Patient Location: [place] [address] Daily Note: Updated Dr. Gutierrez on patient's condition. Informed of sound orders at this time. This note was completed by: Elayne Sharma [facility] NURSING PROG HNO ID: [id number] Author: Elayne Sharma RN Service: Nursing Author Type: Registered Nurse Type: Nursing Progress Note Filed: 03/21/2022 7:58 PM Note Text: Nursing Progress Note Patient Name: Bradley Matos Patient Location: [place] [address] Daily Note: Offered to assist patient with washing off and changing her clothes. Pt refused. States, "I am comfort and I don't feel like it." This note was completed by: Elayne Sharma [facility] NURSING PROG HN ID: [id number] Author: Elayne Sharma RN Service: Nursing Author Type: Registered Nurse Type: Nursing Progress Note Filed: 03/21/2022 7:57 PM Note Text: Nursing Progress Note Patient Name: Bradley Matos Patient Location: [place] [address] Daily Note: Pt asleep. Aroused easily. All [...] to start thinking about going to a ocean transportation intermediary rehab at this time. Pt states, "I [...] was completed by: Elayne Sharma [facility] NURSING PROG HNO ID: [id number] Author: Sandra Kerr RN Service: ASSESSMENT Author [...] in length. No c/o pain at site. Normal [facility] NURSING PROG HNO ID: [id number] Author: Sandra Kerr RN Service: ASSESSMENT Author Type: Registered Nurse Type: Nursing Progress Note Filed: 03/21/2022 4:51 AM Note Text: Post Fall Assessment Bradley Schwartz [place] [id number] Witnessed: Yes How did fall occur:Pt lowered [...] and Doctor contacted Name of LIP notified: [facility] physician, Dr. Luis Fernando Darden Notify family as appropriate:not at this time Post fall interventions: Pt remains in bed, Vital signs taken, Reviewed fall video and fall prevention sheet This note was completed by:Sandra Kerr [facility] NUTRITIONon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 at [employer] (admin) Schedule conference soon. N: Refusing to [...] Living Appropriate (more content not included)... [facility] THERAPY NTon 03-18-2022 THERAPY NT HNO ID: [id number] Author: Yoli Navarro OTR/L Service: Occupational Therapy Author Type: Occupational Therapist Type: Therapy (PT/OT/Speech/Resp) Filed: 03/18/2022 5:02 PM Note Text: Occupational Therapy Group Home Facility Treatment SERVICE DATE: 03/18/2022 SERVICE TIME: 1410 to 1505 ROOM: [place] [address] Recommended Discharge Disposition: Home OT Recommended Discharge Disposition Comments: pt likley to d/c w/ assist from HHT Anticipated Discharge Needs: Equipment OT 6 Clicks Score: 19 Precaution/Activity Restriction Comments: Post-CVA with left sided deficits; COVID-19 isolation initiated 03/13/22 Isolation Type: Contact AND Droplet Precautions-Plus Eyewear Current Hospital Course: 03/13/22: Admitted to [facility] on 03/13 for rehabilitation in anticipation of transition to home independently. 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 [facility] THERAPY NT HNO ID: [id number] Author: Jody Ireland, PT Service: Physical Therapy Author Type: Physical Therapist Type: Therapy (PT/OT/Speech/Resp) Filed: 03/18/2022 4:42 PM Note Text: Physical Therapy Group Home Facility Treatment SERVICE DATE: 03/18/2022 SERVICE TIME: 1500 to 1520 ROOM: [place] [address] Recommended Discharge Disposition: Home PT Recommended Discharge [...] Eyewear Current Hospital Course: 03/13/22: Admitted to [facility] on 03/13 for rehabilitation in anticipation of transition to home independently. 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 [...] see discipline (more content not included)... [facility] THERAPY NT HNO ID: [id number] Author: Radha Horowitz PTA Service: Physical Therapy Author Type: Food Order Delivery Runner Type: Therapy (PT/OT/Speech/Resp) Filed: 03/18/2022 10:09 AM Note Text: Attestation signed by Jody Ireland PT at 03/18/2022 11:44 AM I reviewed and agree with the documentation corresponding to this therapy visit. SIGNATURE: Jody Ireland PT DATE: March 18, 2022 TIME: 11:44 AM Physical Therapy Group Home Facility Treatment SERVICE DATE: 03/18/2022 SERVICE TIME: 929 to 954 ROOM: [place] [address] Recommended Discharge Disposition: Home PT Recommended Discharge [...] Eyewear Current Hospital Course: 03/13/22: Admitted to [facility] on 03/13 for rehabilitation in anticipation of transition to home independently. 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 rated pain a3/10 Rknee [...] Towa (more content not included)... [facility] NURSING PROGon 03-17-2022 NURSING PROG HNO ID: [id number] Author: Diaz Mitchell RN Service: ? Author Type: Registered Nurse Type: Nursing Progress Note Filed: 03/18/2022 6:36 AM Note Text: Nursing Progress Note Patient Name: Bradley Matos Patient Location: Daily Note: Pt continues to refuse to wear her non-slip socks. This Rn educated pt about safety and falls risk. This note was completed by: Diaz Mitchell [facility] NURSING PROG HNO ID: [id number] Author: Shante Cuevas RN Service: Nursing Author Type: Registered Nurse Type: Nursing Progress Note Filed: 03/17/2022 5:28 PM Note Text: Nursing Progress Note Patient Name: Bradley Matos Patient Location: Daily Note: This RN spoke with [facility] pharmacy regarding Pt's home medication Aciphex. Per [facility], Pt was only taking Protonix because [facility] pharmacy does not carry Aciphex. Per [facility] Aciphex does not interract with the other medication Pt is taking (Plavix). [facility] stated Pt cannot take both medications (Aciphex and Protonix) and could only take one. [facility] stated she would discontinue the Protonix and retime Pt home medication Aciphex for 0600. This RN informed [facility] that Pt stated she was taking Aciphex TID. Per [facility], Aciphex is a 1x daily medication and should not be taking 3x per day. This RN reviewed medication change with Pt. Pt stated "ok that works." This note was completed by: Shante Cuevas [facility] NURSING PROG HNO ID: [id number] Author: Shante Cuevas RN Service: Nursing Author Type: Registered Nurse Type: Nursing Progress Note Filed: 03/17/2022 8:40 AM Note Text: Nursing Progress Note Patient Name: Bradley Matos Patient Location: / Daily Note: Pt refuses to wear yellow [...] was completed by: Shante Cuevas [facility] NURSING PROG HNO ID: [id number] Author: Diaz Mitchell RN Service: ? Author Type: Registered Nurse Type: Nursing Progress Note Filed: 03/16/2022 11:17 PM Note Text: Nursing Progress Note Patient Name: Bradley Matos Patient Location: / Daily Note: Pt continues to refuse to wear yellow non-skid socks when she ambulates. Educated pt about safety and falls risk. This note was completed by: Diaz Mitchell [facility] THERAPY NTon 03-16-2022 THERAPY NT HNO ID: [id number] Author: Radha Horowitz PTA Service: Physical Therapy Author Type: Food Order Delivery Runner Type: Therapy (PT/OT/Speech/Resp) Filed: 03/16/2022 10:54 AM Note Text: Attestation signed by Makayla Calvo PT at 03/26/2022 2:13 PM I reviewed and agree with the documentation corresponding to this therapy visit. SIGNATURE: Makayla Calvo PT DATE: March 26, 2022 TIME: 2:11 PM Physical Therapy Group Home Facility Treatment SERVICE DATE: 03/16/2022 SERVICE TIME: 1015 to 1045 ROOM: [place] [address] Recommended Discharge Disposition: Home PT Recommended Discharge [...] Eyewear Current Hospital Course: 03/13/22: Admitted to [facility] on 03/13 for rehabilitation in anticipation of transition to home independently. 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 [facility] THERAPY NT HNO ID: [id number] Author: ADELAIDE Suh/Tatum Service: Occupational Therapy Author Type: Occupational Therapist Type: Therapy (PT/OT/Speech/Resp) Filed: 03/16/2022 9:35 AM Note Text: Occupational Therapy Group Home Facility Treatment SERVICE DATE: 03/16/2022 SERVICE TIME: 853 ROOM: [place] [address] Recommended Discharge Disposition: Home OT Recommended Discharge Disposition Comments: pt michaelley to d/c w/ assist from HHT Anticipated Discharge Needs: Equipment OT 6 Clicks Score: 19 Precaution/Activity Restriction Comments: Post-CVA with left sided deficits; COVID-19 isolation initiated 03/13/22 Isolation Type: Contact AND Droplet Precautions-Plus Eyewear Current Hospital Course: 03/13/22: Admitted to [facility] on 03/13 for rehabilitation in anticipation of transition to home independently. 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 [facility] NURSING PROGon 03-15-2022 NURSING PROG HNO ID: [id number] Author: Diaz Mitchell RN Service: ? Author Type: Registered Nurse Type: Nursing Progress Note Filed: 03/16/2022 12:41 AM Note Text: Nursing Progress Note Patient Name: Bradley Matos Patient Location: [facility] Daily Note: Pt needed to go to [...] This note was completed by: Diaz Begum [facility] NUTRITIONon 03-15-2022 NUTRITION HNO ID: [id number] Author: Ninfa De La Rosa RD Service: Nutrition Therapy Author Type: Registered Dietitian Type: Nutrition Filed: 03/15/2022 11:14 AM Note Text: NUTRITION THERAPY INITIAL ASSESSMENT SERVICE DATE: 03/15/2022 SERVICE TIME: 1058 Nutrition Assessment: Recommended Malnutrition Diagnosis: No Malnutrition Identified Nutrition Diagnosis: Problem: (Morbidly obese) Related to: (excessive caloric intake vs nutritional needs) As evidenced by: (BMI>39.9) Estimated kilocalorie needs: 6892-6990 Calorie Calculation Method: 25-30 kcals/kg Estimated protein [...] PTSD, anxiety, fibromyalgia who was admitted [facility] 03[facility]13[facility]22 for aftercare following COVID-19, recent [...] Diet Orders (From admission, onward) Start Ordered 03/13/221844 DIET REGULAR START NOW 03/13/22 1833 Anthropometrics: [...] March 15, 2022 TIME: 10:31 AM [facility] THERAPY NTon 03-15-2022 THERAPY NT HNO ID: [id number] Author: Radha Horowitz PTA Service: Physical Therapy Author Type: Food Order Delivery Runner Type: Therapy (PT/OT/Speech/Resp) Filed: 03/15/2022 1:41 PM Note Text: Attestation signed by Melonie Carvalho PT at 03/15/2022 3:23 PM I reviewed and agree with the documentation corresponding to this therapy visit. SIGNATURE: Melonie Carvalho PT DATE: March 15, 2022 TIME: 3:23 PM PHYSICAL THERAPY MISSED VISIT SERVICE DATE: 03/15/2022 SERVICE TIME: 1339 to 1340 ROOM: [place] [address] Patient not seen due to Declined.Patient stated she is hurting more because of the weather and that little bit we did this AM , I dont want to do anymore today. SIGNATURE: Radha Horowitz PTA PATIENT NAME: Bradley Matos DATE: March 15, 2022 TIME: 1:40 PM [facility] THERAPY NT HNO ID: [id number] Author: Radha Horowitz PTA Service: Physical Therapy Author Type: Food Order Delivery Runner Type: Therapy (PT/OT/Speech/Resp) Filed: 03/15/2022 12:55 PM Note Text: Attestation signed by Melonie Carvalho PT at 03/15/2022 3:23 PM I reviewed and agree with the documentation corresponding to this therapy visit. SIGNATURE: Melonie Carvalho, PT DATE: March 15, 2022 TIME: 3:23 PM Physical Therapy Group Home Facility Treatment SERVICE DATE: 03/15/2022 SERVICE TIME: 1120 to 1145 ROOM: [place] [address] Recommended Discharge Disposition: Home PT Recommended Discharge [...] Eyewear Current Hospital Course: 03/13/22: Admitted to [facility] on 03/13 for rehabilitation in anticipation of transition to home independently. 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 [facility] THERAPY NT HNO ID: [id number] Author: ADELAIDE Suh/Tatum Service: Occupational Therapy Author Type: Occupational Therapist Type: Therapy (PT/OT/Speech/Resp) Filed: 03/15/2022 11:20 AM Note Text: Occupational Therapy Group Home Facility Treatment SERVICE DATE: 03/15/2022 SERVICE TIME: 1013 to 1107 ROOM: [place] [address] Recommended Discharge Disposition: Home OT Recommended Discharge Disposition Comments: pt louis to d/c w/ assist from HHT Anticipated Discharge Needs: Equipment OT 6 Clicks Score: 19 Precaution/Activity Restriction Comments: Post-CVA with left sided deficits; COVID-19 isolation initiated 03/13/22 Isolation Type: Contact AND Droplet Precautions-Plus Eyewear Current Hospital Course: 03/13/22: Admitted to [facility] on 03/13 for rehabilitation in anticipation of transition to home independently. 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 [facility] ALLIED HEALTHon 03-14-2022 ALLIED HEALTH HNO ID: [id number] Author: Mundo Quiros II Service: Infection Prevention [...] TIME: 8:11 AM PAGER/CONTACT #: Infection Prevention, [id number] Infection Prevention after hours/weekend pager: [phone] [facility] HISTORY PHYSICALon 2 HISTORY PHYSICAL HNO ID: [id number] Author: Melba Gutierrez DO Service: Family Practice Author Type: Physician Type: HANDP Filed: 03/17/2022 7:34 PM Note Text: DEPARTMENT OF HOSPITAL MEDICINE HISTORY AND PHYSICAL EXAM SERVICE DATE: 03/14/2022 SERVICE TIME: 6:25 PM Primary Care Physician: Didier Hciks MD NIGHT AND WEEKEND COVERAGE: Dr. Gutierrez 7A-7P, [facility] physicians 7P-7A Subjective CHIEF COMPLAINT: Weakness, covid 19 HPI: This is a 56 year old female with a past history of anxiety, fibromyalgia, and sjogren's syndrome who presents to [facility] for rehab after hospitalization at [facility] for covid 19. Pt has slight cough, [...] Meaningful Daily Activities? Yes Currently employed? No Anglican Affiliation? N/A Therapeutic Trout: Does pt believe treatment can help his/her [...] tablet, Take 10 (more content not included)... [facility] NURSING PROGon 03-14-2022 NURSING PROG HNO ID: [id number] Author: Raina Lopes RN Service: Nursing Author Type: Registered Nurse Type: Nursing Progress Note Filed: 03/14/2022 7:21 PM Note Text: Nursing Progress Note Patient Name: Bradley Matos Patient Location: [facility]/ Daily Note: 1909 received report from carmen [...] reach. This note was completed by: Raina Begum [facility] THERAPY NTon 03-14-2022 THERAPY NT HNO ID: [id number] Author: Cassandra Mello OTR/L Service: Occupational Therapy Author Type: Occupational Therapist Type: Therapy (PT/OT/Speech/Resp) Filed: 03/14/2022 12:13 PM Note Text: Occupational Therapy Group Home Facility Evaluation SERVICE DATE: 03/14/2022 SERVICE TIME: 1115 to 1203 ROOM: [place] [address] Recommended Discharge Disposition: Home OT Recommended Discharge Disposition Comments: pt likley to d/c w/ assist from HHT Anticipated Discharge Needs: Equipment OT 6 Clicks Score: 19 Precaution/Activity Restriction Comments: Post-CVA with left sided deficits; COVID-19 isolation initiated 03/13/22 Isolation Type: Contact AND Droplet Precautions-Plus Eyewear Current Hospital Course: 03/13/22: Admitted to [facility] on 03/13 for rehabilitation in anticipation of transition to home independently. 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 Normal [facility] THERAPY NT HNO ID: [id number] Author: Melonie Carvalho PT Service: Physical Therapy Author Type: Physical Therapist Type: Therapy (PT/OT/Speech/Resp) Filed: 03/14/2022 10:59 AM Note Text: Summary: PT Evaluation Physical Therapy Group Home Facility Evaluation SERVICE DATE: 03/14/2022 SERVICE TIME: 0950 to 1050 ROOM: [place] [address] Recommended Discharge Disposition: Home PT Recommended Discharge [...] Eyewear Current Hospital Course: 03/13/22: Admitted to [facility] on 03/13 for rehabilitation in anticipation of transition to home independently. 03/08/22-03/13/22: ED/admission to [facility] with Covid-19, acute hypoxemic respiratory failure,left lower [...] asceds/descends stairs laterally. sleeps on couch in [place] Patient Report: Patient reports she was at [employer] with CVA and she was admitted to [facility]. She was exposed to another patient with COVID. She has problems with PT and PA, police was notified due to patient unable to get off bedpan on her own with her tossing call light to table. She signed herself out of [facility] rehab in [place]. Discharged home a week post CVA, walked up 13 stairs with daughter feeling progressively worse, EMS was called, re-admitted to [facility]. CURRENT FUNCTIONAL STATUS: Most recent performance Current [...] assistance. Able (more content not included)... Normal [facility] CASE MANAGEMon 03-13-2022 CASE MANAGEM HNO ID: [id number] Author: ANH Carrillo Service: ? Author Type: Marketing Admin Type: Care Mgt Progress Note Filed: 03/13/2022 12:48 PM Note Text: CARE MANAGEMENT DISCHARGE NOTE SERVICE DATE: 03/13/2022 SERVICE TIME: 12:40 pm LOS: 4 days Admission Date: 03/08/2022 DISCHARGE ARRANGEMENT (list agency and phone number) Discharge Arrangement: Group Home Facility Was an expedited discharge program used?: No Provider Name: [facility] CAREGIVER ASSESSMENT: Caregiver is ready, willing and able to meet the patient's needs as recommended by the inter-professional team:: Yes Patient's transition needs and plan for meeting these needs: DC to SNF HANDOFF COMMUNICATION: Handoff to: Primary Care Physician Primary Care Physician Name/Phone: Dr. Hicks [phone] TRANSPORTATION ARRANGEMENTS: Transportation Arrangements: Car Discharge Information Row Name ED to Hosp-Admission (Current) from 03/08/2022 in [facility] Group Home Facility Agency [facility] IMM Follow Up Copy Given: Yes Copy given to:: Patient Method: By Phone SW spoke with pt regarding [facility] ([facility]). Now [facility] able to accept. Pt chose [facility]. [facility] informed of the pt's d/c. Pt confirmed daughter to transport within an hour. Envelope on chart. RN updated with d/c plan. No other d/c needs identified at this time. SIGNATURE: ANH Carrillo PATIENT NAME: Bradley Matos DATE: March 13, 2022 TIME: 12:45 PM PAGER/CONTACT #: [phone] [facility] CASE MANAGEM HNO ID: [id number] Author: ANH Carrillo Service: ? Author Type: Marketing Admin Type: Care Mgt Progress Note Filed: 03/13/2022 9:06 AM Note Text: CARE MANAGEMENT PROGRESS NOTE SERVICE DATE: 03/13/2022 SERVICE TIME: 9:06 am LOS: 4 days EMR reviewed. Pt on IV Decadron. Plan to continue at this time. Message sent to attending physician and ID to see if pt needs full 10 day course IV Decadron. [facility] can both accept the pt however pt wants to go to [facility] ([facility] unable to accept). Per RN CM notes, pt believes she is still in the hospital until she is 10 days post +Covid test. CM supervisor speech informed. SIGNATURE: ANH Carrillo PATIENT NAME: Bradley Matos DATE: March 13, 2022 TIME: 9:04 AM PAGER/CONTACT #: [phone] [facility] CBC panel Auto (Bld)on 03-13 Erythrocyte distribution width (RBC) [Ratio] 14.7 % Normal 11.5-15.0 [facility] Comment on above: Order Comment: Speci men Type: BLOOD SPECIMENOrdering Facility: [facility] [place] Address: [address] [place] [address] Performed By: #### 5 8410-2 ####ALSIP LABORATORYCLIA [id number] [address] Hematocrit (Bld) [Volume fraction] 40.7 % Normal 36.0-46.0 [facility] Comment on above: Order Comment: Speci men Type: BLOOD SPECIMENOrdering Facility: [facility] Address: [address] [place] [address] Performed By: #### 5 8410-2 ####LAMBERT LABORATORYCLIA [id number] [address] Hemoglobin (Bld) [Mass/Vol] 13.2 g/dL Normal 11.5-15.5 [facility] Comment on above: Order Comment: Speci men Type: BLOOD SPECIMENOrdering Facility: [facility] Address: [address] [place] [address] Performed By: #### 5 8410-2 ####LAMBERT LABORATORYCLIA [id number] [address] MCH (RBC) [Entitic mass] 29.0 pg Normal 26.0-34.0 [facility] Comment on above: Order Comment: Speci men Type: BLOOD SPECIMENOrdering Facility: [facility] Address: [address] [place] [address] Performed By: #### 5 8410-2 ####LAMBERT LABORATORYCLIA [id number] [address] MCHC (RBC) [Mass/Vol] 32.4 g/dL Normal 30.5-36.0 [facility] Comment on above: Order Comment: Speci men Type: BLOOD SPECIMENOrdering Facility: [facility] Address: [address] [place] [address] Performed By: #### 5 8410-2 ####LAMBERT LABORATORYCLIA [id number] [address] MCV (RBC) [Entitic vol] 89.5 fL Normal 80.0-100.0 [facility] Comment on above: Order Comment: Speci men Type: BLOOD SPECIMENOrdering Facility: [facility] Address: [address] [place] [address] Performed By: #### 5 8410-2 ####LAMBERT LABORATORYCLIA [id number] [address] Nucleated RBC (Bld) [#/Vol] 10*3/uL Normal <0.01 [facility] Comment on above: Order Comment: Speci men Type: BLOOD SPECIMENOrdering Facility: [facility] Address: [address] [place] [address] Performed By: #### 5 8410-2 ####LAMBERT LABORATORYCLIA [id number] [place] [address] [place] Platelet mean volume (Bld) [Entitic vol] 9.8 fL Normal 9.0-12.7 [facility] Comment on above: Order Comment: Speci men Type: BLOOD SPECIMENOrdering Facility: [facility] [place] [facility] Address: [address] [place] [address] Performed By: #### 5 8410-2 ####ALSIP LABORATORYCLIA [id number] [place] [address] [place] Platelets (Bld) [#/Vol] 279 10*3/uL Normal 150-400 [facility] Comment on above: Order Comment: Speci men Type: BLOOD SPECIMENOrdering Facility: [facility] [place] [facility] Address: [address] [place] [address] Performed By: #### 5 8410-2 ####ALSIP LABORATORYCLIA [id number] [place] [address] [place] RBC (Bld) [#/Vol] 4.55 10*6/uL Normal 3.90-5.20 [facility] Comment on above: Order Comment: Speci men Type: BLOOD SPECIMENOrdering Facility: [facility] [place] [facility] Address: [address] [place] [address] Performed By: #### 5 8410-2 ####LAMBERT LABORATORYCLIA [id number] [place] [address] [place] WBC (Bld) [#/Vol] 9.44 10*3/uL Normal 3.70-11.00 [facility] Comment on above: Order Comment: Speci men Type: BLOOD SPECIMENOrdering Facility: [facility] [place] [facility] Address: [address] [place] [address] Performed By: #### 5 8410-2 ####LAMBERT LABORATORYCLIA [id number] [address] CNDSon 03-13-2022 CNDS HNO ID: [id number] Author: Eddy Rebolledo MD Service: General Internal [...] PT and OT recommended discharge to a assisted facility. You will be discharged to SNF. Please follow-up with your PCP in 1-2 weeks. OTHER PROBLEMS/DIAGNOSIS: Principal Problem: Leg weakness Active Problems: Recent cerebrovascular accident (CVA) COVID-19 virus infection Right leg weakness COVID-19 Resolved Problems: Nausea OPERATIONS PERFORMED WHILE IN THE HOSPITAL: None IMPORTANT TEST/PROCEDURES: No procedures performed TEST RESULTS NOT AVAILABLE AT THIS TIME: No pending results Discharge Disposition Discharge Disposition: Group Home Facility - Less than 30 Days Activity [...] Follow-Up Appointment When: In 1 week Didier Dodsonhop [phone] [facility] [address] [facility] [address] [facility] [address] PCP Requested Referral Additional Provider to Provider [...] PT and OT recommended discharge to a assisted facility. You will be discharged to SNF. Please follow-up with your PCP in 1-2 weeks. Transitions of Care Critical Issues: Discharge to SNF LABS AND PROCEDURES PENDING AT DISCHARGE: FOLLOW-UP APPOINTMENTS ALREADY SCHEDULED WITH A [facility] PROVIDER: No future appointments. ALLERGIES Allergen [...] carbonate (VLADISLAV (more content not included)... Normal [facility] CONSULT PROGon 03-13-2022 CONSULT PROG HNO ID: [id number] Author: Kurt Evans MD Service: Infectious Disease [...] reviewed Imaging data: reviewed Kurt Evans MD [phone] 03/13/2022 10:51 AM Normal [facility] Comprehensive metabolic 2000 panelon 03-13-2022 Albumin [Mass/Vol] 3.7 g/dL Low 3.9-4.9 [facility] Comment on above: Order Comment: Speci men Type: BLOOD SPECIMENOrdering Facility: [facility] [place] [facility] Address: [address] [place] [address] Performed By: #### 2 4323-8 ####LAMBERT LABORATORYCLIA [id number] [address] [place] [facility] ALP [Catalytic activity/Vol] 67 U/L Normal 34-123 [facility] Comment on above: Order Comment: Speci men Type: BLOOD SPECIMENOrdering Facility: [facility] [place] [facility] Address: [address] [place] [address] Performed By: #### 2 4323-8 ####LAMBERT LABORATORYCLIA [id number] [address] ALT [Catalytic activity/Vol] 12 U/L Normal 7-38 [facility] Comment on above: Order Comment: Speci men Type: BLOOD SPECIMENOrdering Facility: [facility] [facility] Address: [address] [place] [address] Performed By: #### 2 4323-8 ####LAMBERT LABORATORYCLIA [id number] [address] Anion gap [Moles/Vol] 9 mmol/L Normal 9-18 [facility] Comment on above: Order Comment: Speci men Type: BLOOD SPECIMENOrdering Facility: [facility] [place] [facility] Address: [address] [place] [address] Performed By: #### 2 4323-8 ####LAMBERT LABORATORYCLIA [id number] [address] AST [Catalytic activity/Vol] 13 U/L Normal 13-35 [facility] Comment on above: Order Comment: Speci men Type: BLOOD SPECIMENOrdering Facility: [facility] [place] [facility] Address: [address] [place] [address] Performed By: #### 2 4323-8 ####LAMBERT LABORATORYCLIA [id number] [address] [place] Bilirubin [Mass/Vol] 0.2 mg/dL Normal 0.2-1.3 [facility] Comment on above: Order Comment: Speci men Type: BLOOD SPECIMENOrdering Facility: [facility] [place] [facility] Address: [address] [place] [address] [place] [address] Performed By: #### 2 4323-8 ####LAMBERT LABORATORYCLIA [id number] [address] [place] Calcium [Mass/Vol] 8.6 mg/dL Normal 8.5-10.2 [facility] Comment on above: Order Comment: Speci men Type: BLOOD SPECIMENOrdering Facility: [facility] Address: [address] [place] [address] Performed By: #### 2 432-8 ####LAMBERT LABORATORYCLIA [id number] [address] [place] Chloride [Moles/Vol] 99 mmol/L Normal 97-105 [facility] Comment on above: Order Comment: Speci men Type: BLOOD SPECIMENOrdering Facility: [facility] Address: [address] [place] [address] Performed By: #### 2 4323-8 ####LAMBERT LABORATORYCLIA [id number] [address] [place] CO2 [Moles/Vol] 30 mmol/L Normal 22-30 [facility] Comment on above: Order Comment: Speci men Type: BLOOD SPECIMENOrdering Facility: [facility] [place] [facility] Address: [address] [place] [address] Performed By: #### 2 4323-8 ####LAMBERT LABORATORYCLIA [id number] [place] [address] [place] Creatinine [Mass/Vol] 0.68 mg/dL Normal 0.58-0.96 [facility] Comment on above: Order Comment: Speci men Type: BLOOD SPECIMENOrdering Facility: [facility] [place] [facility] Address: [address] [place] [address] Performed By: #### 2 4323-8 ####LAMBERT LABORATORYCLIA [id number] [place] [address] [place] ESTIMATED GLOMERULAR FILTRATION RATE 104 mL/min/1.73m??? Normal >=60 [facility] Comment on above: Order Comment: Susie santzio Type: BLOOD SPECIMENOrdering Facility: [facility] [place] [facility] Address: [address] [place] [address] Result Comment: Cecille mated Glomerular Filtration Rate [...] Performed By: #### 2 4323-8 ####LAMBERT LABORATORYCLIA [id number] [place] [id number] [place] Glucose [Mass/Vol] 175 mg/dL High 74-99 [facility] Comment on above: Order Comment: Susie santizo Type: BLOOD SPECIMENOrdering Facility: [facility] [place] [facility] Address: [address] [place] [address] Result Comment: The [place] Diabetes Association (ADA) provides guidance for cutoff [...] Standards of Medical Care in Diabetes 2016, [place] Diabetes Association. Diabetes Care. 2016.39(Suppl 1). Performed By: #### 2 4323-8 ####LAMBERT LABORATORYCLIA [id number] [place] [address] [place] Potassium [Moles/Vol] 4.1 mmol/L Normal 3.7-5.1 [facility] Comment on above: Order Comment: Susie santizo Type: BLOOD SPECIMENOrdering Facility: [facility] [place] [facility] Address: [address] [place] [address] Performed By: #### 2 4323-8 ####LAMBERT LABORATORYCLIA [id number] [address] Protein [Mass/Vol] 6.8 g/dL Normal 6.3-8.0 [facility] Comment on above: Order Comment: Speci men Type: BLOOD SPECIMENOrdering Facility: [facility] [place] [facility] Address: [address] [place] [address] Performed By: #### 2 4323-8 ####LAMBERT LABORATORYCLIA [id number] [address] [place] Sodium [Moles/Vol] 138 mmol/L Normal 136-144 [facility] Comment on above: Order Comment: Speci men Type: BLOOD SPECIMENOrdering Facility: [facility] [place] [facility] Address: [address] [place] [address] Performed By: #### 2 4323-8 ####LAMBERT LABORATORYCLIA [id number] [address] [place] Urea nitrogen [Mass/Vol] 17 mg/dL Normal 7-21 [facility] Comment on above: Order Comment: Speci men Type: BLOOD SPECIMENOrdering Facility: [facility] [place] [facility] Address: [address] [place], [place] [address] [address] Performed By: #### 2 4323-8 ####LAMBERT LABORATORYCLIA [id number] [address] OF [place] D dimer FEU PPP-mCncon 03-13 Fibrin D-dimer FEU (PPP) [Mass/Vol] 900 ng/mL FEU High <500 [facility] Comment on above: Order Comment: Speci men Type: BLOOD SPECIMENOrdering Facility: [facility] [place] [facility] Address: [address] [place] [address] Performed By: #### 4 8065-7 ####LAMBERT LABORATORYCLIA [id number] [address] [place] Fibrin D-dimer FEU (PPP) [Ma ss/Vol]on 03-13-2022 D DIMER AGE-RELATED CUTOFF 540 ng/mL FEU Normal [facility] Comment on above: Order Comment: Speci men Type: BLOOD SPECIMENOrdering Facility: [facility] [place] [facility] Address: [facility] [place] [address] Performed By: #### 4 8065-7 ####ALSIP LABORATORYCLIA [id number] [place] [address] [facility] NURSING PROGon 03-13-2022 NURSING PROG HNO ID: [id number] Author: Raina Lopes RN Service: Nursing Author Type: Registered Nurse Type: Nursing Progress Note Filed: 03/13/2022 10:25 PM Note Text: Nursing Progress Note Patient Name: Bradley Matos [facility] Daily Note: 1909 received doorside handoff report from [facility] PAYTON Holly. Pt asleep in bed, no distress noted, call light in reach. 1956 pt assessment completed, see flowsheet 1999 pt medicated with prn tylenol for c/o posterior neck discomfort. Assisted pt with ambulating to/from bathroom 2044 spoke with london Benavidez regarding pt ultram orders [facility] physician paged regarding medication allergy to ultram. Spoke with physician and pt regarding intolerance and pt in agreement to utilize tylenol and lidocaine patches for discomfort and will discuss further with attending in am. This note was completed by: Raina Lopes [facility] NURSING PROG HNO ID: [id number] Author: Shante Cuevas RN Service: Nursing Author Type: Registered Nurse Type: Nursing Progress Note Filed: 03/13/2022 5:05 PM Note Text: Nursing Progress Note Patient Name: Bradley Matos [facility] Daily Note: Pt oriented to room. Reviewed [...] was completed by: Shante Cuevas [facility] NURSING PROG HNO ID: [id number] Author: Elayne Sharma RN Service: Nursing Author Type: Registered Nurse Type: Nursing Progress Note Filed: 03/13/2022 5:49 PM Note Text: Nursing Progress Note Patient Name: Bradley Matos Patient Location: [place] [address] Daily Note: Dr. Gutierrez called at this time for admission orders. This note was completed by: Elayne Sharma [facility] NURSING PROG O ID: [id number] Author: Elayne Sharma RN Service: Nursing Author Type: Registered Nurse Type: Nursing Progress Note Filed: 03/13/2022 4:34 PM Note Text: Nursing Progress Note Patient Name: Bradley Matos Patient Location: [place] [address] Daily Note: Pt arrived to floor per w//c. Accompanied by daughter.Daughter assisted patient out of car and brought patient over to floor. Patient and daughter was wearing a mask. Daughter was informed that she would have to maintain isolation rules when she would visit her mom. Daughter states, "I never had to do that at [place]. " Daughter states, "That is too hot [...] on Allscript before patient was discharged from [place]. Vital signs completed. P. Ox 97% RA. Denies any SOB. This note was completed by: Elayne Sharma [facility] NURSING PROG HNO ID: [id number] Author: Kathy Tripathi RN Service: ? Author Type: Registered Nurse Type: Nursing Progress Note Filed: 03/13/2022 2:07 PM Note Text: Nursing Progress Note Patient Name: Bradley Matos Patient [facility]/FM-3M-6424-1 Daily Note: 1345: Patient discharged in stable condition. Left floor via wheelchair w/daughter to [facility]. Discharge paperwork and all personal belongings w/patient. [facility] This note was completed by: Kathy Tripathi [facility] US DVT LOWER BILon 2 US DVT [...] with KURT EVANS on 03/13/2022 12:03 PM X Ray Developing Machine Operator: JAIMIE Transcribe Date/Time: Mar 13 2022 9:27A Dictated by : LALO WATERS DO This examination was interpreted and the report reviewed and electronically signed by: LALO WATERS DO on Mar 13 2022 12:03PM EST [id number] [facility] CASE MANAGEM HNO ID: [id number] Author: Lian Seymour RN Service: ? Author Type: Registered Nurse Type: Care Mgt Progress Note Filed: 03/12/2022 9:48 AM Note Text: CARE MANAGEMENT PROGRESS NOTE SERVICE DATE: 03/12/2022 SERVICE TIME: 9:41 AM CM sent referral to [facility] and [facility] to find accepting covid + SNF. CM called pt, [facility] CM explained the 2 SNFs she requested cannot accept covid +. Pt replied "Dr Rebolledo told me I could stay until I'm covid negative" LOS: 3 days SIGNATURE: Lian Seymour RN PATIENT NAME: Bradley Matos DATE: March 12, 2022 TIME: 9:41 AM PAGER/CONTACT #: [phone] -- [facility] CONSULT PROGon 03-12-2022 CONSULT PROG HNO ID: [id number] Author: Kurt Evans MD Service: Infectious Disease [...] H PRN - remdesivir in NaCl 0.9% Vial-Mate/ADD-[place] 100 mg 275 mL 100 mg INTRAVENOUS [...] Microbiology data: reviewed Imaging data: reviewed Kurt Evnas MD Pager: Date of service: 03/12/2022 Time of service: 4:11 PM This note is not final until Authenticated by responsible provider. Normal [facility] ALT SerPl-cCncon 03-11-2022 ALT [Catalytic activity/Vol] 14 U/L Normal 7-38 [facility] Comment on above: Order Comment: Speci men Type: BLOOD SPECIMENOrdering Facility: [facility] [place] [facility] Address: [address] [place] [address] Performed By: #### 1 742-6, K1, 1920-04 ####ALSIP LABORATORYCLIA [id number] [place] [address] [place] AST SerPl-cCncon 03-11-2022 AST [Catalytic activity/Vol] 19 U/L Normal 13-35 [facility] Comment on above: Order Comment: Speci men Type: BLOOD SPECIMENOrdering Facility: [facility] [place] [facility] Address: [address] [place] [address] Performed By: #### 1 742-6, K1, 1920-04 ####ALSIP LABORATORYCLIA [id number] [place] [address] [place] CBC panel Auto (Bld)on 03-11 Erythrocyte distribution width (RBC) [Ratio] 15.1 % High 11.5-15.0 [facility] Comment on above: Order Comment: Speci men Type: BLOOD SPECIMENOrdering Facility: [facility] [place] [facility] Address: [address] [place] [address] Performed By: #### 5 8410-2 ####LAMBERT LABORATORYCLIA [id number] [address] Hematocrit (Bld) [Volume fraction] 38.4 % Normal 36.0-46.0 [facility] Comment on above: Order Comment: Speci men Type: BLOOD SPECIMENOrdering Facility: [facility] [place] [facility] Address: [address] [place] [address] Performed By: #### 5 8410-2 ####LAMBERT LABORATORYCLIA [id number] [address] OF [facility] Hemoglobin (Bld) [Mass/Vol] 12.3 g/dL Normal 11.5-15.5 [facility] Comment on above: Order Comment: Speci men Type: BLOOD SPECIMENOrdering Facility: [facility] [place] [facility] Address: [address] [place] [address] Performed By: #### 5 8410-2 ####LAMBERT LABORATORYCLIA [id number] [address] STATES OF [facility] MCH (RBC) [Entitic mass] 28.9 pg Normal 26.0-34.0 [facility] Comment on above: Order Comment: Speci men Type: BLOOD SPECIMENOrdering Facility: [facility] [place] [facility] Address: [address] [place] [address] Performed By: #### 5 8410-2 ####LAMBERT LABORATORYCLIA [id number] [address] MCHC (RBC) [Mass/Vol] 32.0 g/dL Normal 30.5-36.0 [facility] Comment on above: Order Comment: Speci men Type: BLOOD SPECIMENOrdering Facility: [facility] [place] [facility] Address: [address] [place] [address] Performed By: #### 5 8410-2 ####LAMBERT LABORATORYCLIA [id number] [address] OF [place] MCV (RBC) [Entitic vol] 90.1 fL Normal 80.0-100.[address] [facility] Comment on above: Order Comment: Speci men Type: BLOOD SPECIMENOrdering Facility: [facility] [place] [facility] Address: [address] [address] Performed By: #### 5 8410-2 ####LAMBERT LABORATORYCLIA [id number] [place] [address] [place] Nucleated RBC (Bld) [#/Vol] 10*3/uL Normal <0.01 [facility] Comment on above: Order Comment: Speci men Type: BLOOD SPECIMENOrdering Facility: [facility] Address: [address] [place] [address] Performed By: #### 5 8410-2 ####L[facility]BERT LABORATORYCLIA [id number] [address] [place] Platelet mean volume (Bld) [Entitic vol] 10.1 fL Normal 9.0-12.7 [facility] Comment on above: Order Comment: Speci men Type: BLOOD SPECIMENOrdering Facility: [facility] Address: [address] [place] [address] Performed By: #### 5 8410-2 ####LAMBERT LABORATORYCLIA [id number] [address] [place] Platelets (Bld) [#/Vol] 292 10*3/uL Normal 150-400 [facility] Comment on above: Order Comment: Speci men Type: BLOOD SPECIMENOrdering Facility: [facility] Address: [address] [address] Performed By: #### 5 8410-2 ####LAMBERT LABORATORYCLIA [id number] [address] [place] RBC (Bld) [#/Vol] 4.26 10*6/uL Normal 3.90-5.20 [facility] Comment on above: Order Comment: Speci men Type: BLOOD SPECIMENOrdering Facility: [facility] Address: [address] [place] [address] Performed By: #### 5 8410-2 ####LAMBERT LABORATORYCLIA [id number] [address] WBC (Bld) [#/Vol] 5.43 10*3/uL Normal 3.70-11.00 [facility] Comment on above: Order Comment: Speci men Type: BLOOD SPECIMENOrdering Facility: [facility] Address: [address] [place] [address] Performed By: #### 5 8410-2 ####LAMBERT LABORATORYCLIA [id number] [address] Comprehensive metabolic 2000 panelon 03-11-2022 Albumin [Mass/Vol] 3.8 g/dL Low 3.9-4.9 [facility] Comment on above: Order Comment: Speci men Type: BLOOD SPECIMENOrdering Facility: [facility] Address: [address] [place] [address] Performed By: #### 2 4323-8 ####LAMBERT LABORATORYCLIA [id number] [address] ALP [Catalytic activity/Vol] 66 U/L Normal 34-123 [facility] Comment on above: Order Comment: Speci men Type: BLOOD SPECIMENOrdering Facility: [facility] Address: [address] [place] [address] Performed By: #### 2 4323-8 ####LAMBERT LABORATORYCLIA [id number] [address] ALT [Catalytic activity/Vol] Normal [facility] Comment on above: Order Comment: Speci men Type: BLOOD SPECIMENOrdering Facility: [facility] Address: [address] [place] [address] Result Comment: Unab le to assay due to interference from hemolysis. Suggest reorder as clinically indicated. Performed By: #### 2 4323-8 ####LAMBERT LABORATORYCLIA [id number] [address] Anion gap [Moles/Vol] 8 mmol/L Low 9-18 [facility] Comment on above: Order Comment: Speci men Type: BLOOD SPECIMENOrdering Facility: [facility] Address: [address] [place] [address] Performed By: #### 2 4323-8 ####LAMBERT LABORATORYCLIA [id number] [place] [address] [place] AST [Catalytic activity/Vol] Normal [facility] Comment on above: Order Comment: Speci men Type: BLOOD SPECIMENOrdering Facility: [facility] Address: [address] [place] [address] Result Comment: Unab le to assay due to interference from hemolysis. Suggest reorder as clinically indicated. Performed By: #### 2 4323-8 ####LAMBERT LABORATORYCLIA [id number] [place] [address] [place] Bilirubin [Mass/Vol] 0.2 mg/dL Normal 0.2-1.3 [facility] Comment on above: Order Comment: Speci men Type: BLOOD SPECIMENOrdering Facility: [facility] Address: [address] [place] [address] Performed By: #### 2 4323-8 ####LAMBERT LABORATORYCLIA [id number] [place] [address] [place] Calcium [Mass/Vol] 9.0 mg/dL Normal 8.5-10.2 [facility] Comment on above: Order Comment: Speci men Type: BLOOD SPECIMENOrdering Facility: [facility] Address: [address] [place] [address] Performed By: #### 2 4323-8 ####LAMBERT LABORATORYCLIA [id number] [place] [address] [place] Chloride [Moles/Vol] 99 mmol/L Normal 97-105 [facility] Comment on above: Order Comment: Speci men Type: BLOOD SPECIMENOrdering Facility: [facility] Address: [address] [place] [address] Performed By: #### 2 4323-8 ####LAMBERT LABORATORYCLIA [id number] [place] [address] [place] CO2 [Moles/Vol] 29 mmol/L Normal 22-30 [facility] Comment on above: Order Comment: Susie sukhdev Type: BLOOD SPECIMENOrdering Facility: [facility] Address: [address] [place] [address] Performed By: #### 2 4323-8 ####LAMBERT LABORATORYCLIA [id number] [place] [address] [place] Creatinine [Mass/Vol] 0.63 mg/dL Normal 0.58-0.96 [facility] Comment on above: Order Comment: Susie sukhdev Type: BLOOD SPECIMENOrdering Facility: [facility] Address: [address] [place] [address] Performed By: #### 2 4323-8 ####ALSIP LABORATORYCLIA [id number] [place] [address] [place] ESTIMATED GLOMERULAR FILTRATION RATE 106 mL/min/1.73m??? Normal >=60 [facility] Comment on above: Order Comment: Susie santizo Type: BLOOD SPECIMENOrdering Facility: [facility] Address: [address] [place] [address] Result Comment: Cecille mated Glomerular Filtration Rate [...] Performed By: #### 2 4323-8 ####LAMBERT LABORATORYCLIA [id number] [place] [address] [place] Glucose [Mass/Vol] 174 mg/dL High 74-99 [facility] Comment on above: Order Comment: Susie santizo Type: BLOOD SPECIMENOrdering Facility: [facility] Address: [address] [place] [address] Result Comment: The [place] Diabetes Association (ADA) provides guidance for cutoff [...] Standards of Medical Care in Diabetes 2016, [employer]. Diabetes Care. 2016.39(Suppl 1). Performed By: #### 2 4323-8 ####LAMBERT LABORATORYCLIA [id number] [place] [address] [place] Potassium [Moles/Vol] Normal [facility] Comment on above: Order Comment: Susie santizo Type: BLOOD SPECIMENOrdering Facility: [facility] [place] Address: [address] [place] [address] Result Comment: Unab le to assay due to interference from hemolysis. Suggest reorder as clinically indicated. Performed By: #### 2 4323-8 ####LAMBERT LABORATORYCLIA [id number] [place] [address] [place] Protein [Mass/Vol] 7.0 g/dL Normal 6.3-8.0 [facility] Comment on above: Order Comment: Susie santizo Type: BLOOD SPECIMENOrdering Facility: [facility] [place] [facility] Address: [address] [place] [address] Performed By: #### 2 4323-8 ####LAMBERT LABORATORYCLIA [id number] [address] [place] Sodium [Moles/Vol] 136 mmol/L Normal 136-144 [facility] Comment on above: Order Comment: Susie santizo Type: BLOOD SPECIMENOrdering Facility: [facility] [place] [facility] Address: [address] [address] Performed By: #### 2 4323-8 ####LAMBERT LABORATORYCLIA [id number] [address] [place] Urea nitrogen [Mass/Vol] 17 mg/dL Normal 7-21 [facility] Comment on above: Order Comment: Susie santizo Type: BLOOD SPECIMENOrdering Facility: [facility] Address: [address] [place] [address] Performed By: #### 2 4323-8 ####LAMBERT LABORATORYCLIA [id number] [address] POTASSIUM BLDon 03-11-2022 Potassium [Moles/Vol] 4.5 mmol/L Normal 3.7-5.1 [facility] Comment on above: Order Comment: Speci men Type: BLOOD SPECIMENOrdering Facility: [facility] Address: [address] [place] [address] Performed By: #### 1 742-6, K1, 1920-8 ####LAMBERT LABORATORYCLIA [id number] [address] CBC panel Auto (Bld)on 03-10 Erythrocyte distribution width (RBC) [Ratio] 15.4 % High 11.5-15.0 [facility] Comment on above: Order Comment: Speci men Type: BLOOD SPECIMENOrdering Facility: [facility] Address: [address] [place] [address] Performed By: #### 5 8410-2 ####LAMBERT LABORATORYCLIA [id number] [address] Hematocrit (Bld) [Volume fraction] 36.8 % Normal 36.0-46.0 [facility] Comment on above: Order Comment: Speci men Type: BLOOD SPECIMENOrdering Facility: [facility] Address: [address] [place] [address] Performed By: #### 5 8410-2 ####LAMBERT LABORATORYCLIA [id number] [address] Hemoglobin (Bld) [Mass/Vol] 11.9 g/dL Normal 11.5-15.5 [facility] Comment on above: Order Comment: Speci men Type: BLOOD SPECIMENOrdering Facility: [facility] Address: [address] [place] [address] Performed By: #### 5 8410-2 ####LAMBERT LABORATORYCLIA [id number] [address] MCH (RBC) [Entitic mass] 29.4 pg Normal 26.0-34.0 [facility] Comment on above: Order Comment: Speci men Type: BLOOD SPECIMENOrdering Facility: [facility] Address: [address] [address] Performed By: #### 5 8410-2 ####LAMBERT LABORATORYCLIA [id number] [address] MCHC (RBC) [Mass/Vol] 32.3 g/dL Normal 30.5-36.0 [facility] Comment on above: Order Comment: Speci men Type: BLOOD SPECIMENOrdering Facility: [facility] Address: [address] [place] [address] Performed By: #### 5 8410-2 ####LAMBERT LABORATORYCLIA [id number] [address] MCV (RBC) [Entitic vol] 90.9 fL Normal 80.0-100.0 [facility] Comment on above: Order Comment: Speci men Type: BLOOD SPECIMENOrdering Facility: [facility] Address: [address] [place] [address] Performed By: #### 5 8410-2 ####LAMBERT LABORATORYCLIA [id number] [address] Nucleated RBC (Bld) [#/Vol] 10*3/uL Normal <0.01 [facility] Comment on above: Order Comment: Speci men Type: BLOOD SPECIMENOrdering Facility: [facility] Address: [address] [place] [address] Performed By: #### 5 8410-2 ####LAMBRET LABORATORYCLIA [id number] [address] [place] Platelet mean volume (Bld) [Entitic vol] 9.8 fL Normal 9.0-12.7 [facility] Comment on above: Order Comment: Speci men Type: BLOOD SPECIMENOrdering Facility: [facility] Address: [address] [place] [address] Performed By: #### 5 8410-2 ####LAMBERT LABORATORYCLIA [id number] [address] Platelets (Bld) [#/Vol] 246 10*3/uL Normal 150-400 [facility] Comment on above: Order Comment: Speci men Type: BLOOD SPECIMENOrdering Facility: [facility] Address: [address] [place] [address] Performed By: #### 5 8410-2 ####LAMBERT LABORATORYCLIA [id number] [address] [place] RBC (Bld) [#/Vol] 4.05 10*6/uL Normal 3.90-5.20 [facility] Comment on above: Order Comment: Speci men Type: BLOOD SPECIMENOrdering Facility: [facility] Address: [address] [place] [address] Performed By: #### 5 8410-2 ####LAMBERT LABORATORYCLIA [id number] [address] WBC (Bld) [#/Vol] 5.15 10*3/uL Normal 3.70-11.00 [facility] Comment on above: Order Comment: Speci men Type: BLOOD SPECIMENOrdering Facility: [facility] Address: [address] [place] [address] Performed By: #### 5 8410-2 ####LAMBERT LABORATORYCLIA [id number] [address] Comprehensive metabolic 2000 panelon 03-10-2022 Albumin [Mass/Vol] 3.7 g/dL Low 3.9-4.9 [facility] Comment on above: Order Comment: Speci men Type: BLOOD SPECIMENOrdering Facility: [facility] Address: [address] [place] [address] Performed By: #### 2 4323-8 ####LAMBERT LABORATORYCLIA [id number] [address] ALP [Catalytic activity/Vol] 73 U/L Normal 34-123 [facility] Comment on above: Order Comment: Speci men Type: BLOOD SPECIMENOrdering Facility: [facility] Address: [address] [place] [address] Performed By: #### 2 4323-8 ####LAMBERT LABORATORYCLIA [id number] [address] ALT [Catalytic activity/Vol] 18 U/L Normal 7-38 [facility] Comment on above: Order Comment: Speci men Type: BLOOD SPECIMENOrdering Facility: [facility] Address: [address] [place] [address] Performed By: #### 2 4323-8 ####LAMBERT LABORATORYCLIA [id number] [address] [place] Anion gap [Moles/Vol] 9 mmol/L Normal 9-18 [facility] Comment on above: Order Comment: Speci men Type: BLOOD SPECIMENOrdering Facility: [facility] Address: [address] [place] [address] Performed By: #### 2 4323-8 ####LAMBERT LABORATORYCLIA [id number] [address] AST [Catalytic activity/Vol] 23 U/L Normal 13-35 [facility] Comment on above: Order Comment: Speci men Type: BLOOD SPECIMENOrdering Facility: [facility] Address: [address] [place] [address] Performed By: #### 2 4323-8 ####LAMBERT LABORATORYCLIA [id number] [address] [place] Bilirubin [Mass/Vol] 0.3 mg/dL Normal 0.2-1.3 [facility] Comment on above: Order Comment: Speci men Type: BLOOD SPECIMENOrdering Facility: [facility] Address: [address] [place] [address] Performed By: #### 2 4323-8 ####LAMBERT LABORATORYCLIA [id number] [address] Calcium [Mass/Vol] 8.8 mg/dL Normal 8.5-10.2 [facility] Comment on above: Order Comment: Speci men Type: BLOOD SPECIMENOrdering Facility: [facility] Address: [address] [place] [address] Performed By: #### 2 4323-8 ####LAMBERT LABORATORYCLIA [id number] [address] [place] Chloride [Moles/Vol] 102 mmol/L Normal 97-105 [facility] Comment on above: Order Comment: Speci men Type: BLOOD SPECIMENOrdering Facility: [facility] Address: [address] [place] [address] Performed By: #### 2 4323-8 ####LAMBERT LABORATORYCLIA [id number] [place] [address] [place] CO2 [Moles/Vol] 29 mmol/L Normal 22-30 [facility] Comment on above: Order Comment: Speci men Type: BLOOD SPECIMENOrdering Facility: [facility] [place] [facility] Address: [address] [place] [address] Performed By: #### 2 4323-8 ####LAMBERT LABORATORYCLIA [id number] [address] [place] Creatinine [Mass/Vol] 0.67 mg/dL Normal 0.58-0.96 [facility] Comment on above: Order Comment: Speci men Type: BLOOD SPECIMENOrdering Facility: [facility] [place] [facility] Address: [address] [place] [address] Performed By: #### 2 4323-8 ####LAMBERT LABORATORYCLIA [id number] [address] [place] ESTIMATED GLOMERULAR FILTRATION RATE 104 mL/min/1.73m??? Normal >=60 [facility] Comment on above: Order Comment: Speci men Type: BLOOD SPECIMENOrdering Facility: [facility] [place] [facility] Address: [address] [place] [address] Result Comment: Cecille mated Glomerular Filtration Rate [...] Performed By: #### 2 4323-8 ####LAMBERT LABORATORYCLIA [id number] [place] [address] [place] Glucose [Mass/Vol] 122 mg/dL High 74-99 [facility] Comment on above: Order Comment: Susie santizo Type: BLOOD SPECIMENOrdering Facility: [facility] [place] [facility] Address: [address] [place] [address] Result Comment: The [place] Diabetes Association (ADA) provides guidance for cutoff [...] Standards of Medical Care in Diabetes 2016, [place] Diabetes [employer]. Diabetes Care. 2016.39(Suppl 1). Performed By: #### 2 4323-8 ####ALSIP LABORATORYCLIA [id number] [place] [address] [place] Potassium [Moles/Vol] 4.0 mmol/L Normal 3.7-5.1 [facility] Comment on above: Order Comment: Susie santizo Type: BLOOD SPECIMENOrdering Facility: [facility] [place] [facility] Address: [address] [place] [address] Performed By: #### 2 4323-8 ####LAMBERT LABORATORYCLIA [id number] [place] [id number] [place] Protein [Mass/Vol] 7.4 g/dL Normal 6.3-8.0 [facility] Comment on above: Order Comment: Susie santzio Type: BLOOD SPECIMENOrdering Facility: [facility] [place] [facility] Address: [address] [place] [address] Performed By: #### 2 4323-8 ####LAMBERT LABORATORYCLIA [id number] [place] [address] [place] Sodium [Moles/Vol] 140 mmol/L Normal 136-144 [facility] Comment on above: Order Comment: Speci men Type: BLOOD SPECIMENOrdering Facility: [facility] [place] [facility] Address: [address] [place] [address] [place] [address] Performed By: #### 2 4323-8 ####LAMBERT LABORATORYCLIA [id number] [address] Urea nitrogen [Mass/Vol] 15 mg/dL Normal 7-21 [facility] Comment on above: Order Comment: Speci men Type: BLOOD SPECIMENOrdering Facility: [facility] [place] [facility] Address: [address] [place] [address] Performed By: #### 2 4323-8 ####LAMBERT LABORATORYCLIA [id number] [address] THERAPY NTon 03-10-2022 THERAPY NT HNO ID: [id number] Author: ADELAIDE Reyes/Tatum Service: Occupational Therapy Author Type: Occupational Therapist Type: Therapy (PT/OT/Speech/Resp) Filed: 03/10/2022 3:08 PM Note Text: Occupational Therapy Evaluation SERVICE DATE: 03/10/2022 SERVICE TIME: 1350 to 1450 ROOM: [address] [id number] Recommended Discharge Disposition: Subacute/SNF Recommended Discharge Disposition [...] functional mobility Standin (more content not included)... [facility] ALLIED HEALTHon 03-09-2022 ALLIED HEALTH HNO ID: [id number] Author: CARLI Gutierrez Service: ? Author Type: [...] CARLI Gutierrez March 09, 2022 4:46 AM [facility] CBC W Auto Differential pane l (Bld)on 03-09-2022 Basophils (Bld) [#/Vol] 0.03 10*3/uL Normal <0.11 [facility] Comment on above: Order Comment: Speci men Type: BLOOD SPECIMEN [facility] Address: [address] [place] [address] Performed By: #### 5 7021-8 #### [facility] CLIA [id number] [address] [place] [address] [place] Basophils/100 WBC (Bld) 0.4 % Normal [facility] Comment on above: Order Comment: Speci men Type: BLOOD SPECIMEN [facility] Address: [address] [address] Performed By: #### 5 7021-8 #### [facility] CLIA [id number] [address] Differential cell count method Nom (Bld) Auto Normal [facility] Comment on above: Order Comment: Speci men Type: BLOOD SPECIMEN [facility] Address: [address] [place] [address] Performed By: #### 5 7021-8 #### [facility] CLIA [id number] [address] [place] Eosinophils (Bld) [#/Vol] 10*3/uL Normal <0.46 [facility] Comment on above: Order Comment: Speci men Type: BLOOD SPECIMEN [facility] Address: [address] [place] [address] Performed By: #### 5 7021-8 #### [facility] CLIA [id number] [address] Eosinophils/100 WBC (Bld) 0.3 % Normal [facility] Comment on above: Order Comment: Speci men Type: BLOOD SPECIMEN [facility] Address: [address] [place] [address] Performed By: #### 5 7021-8 #### [facility] CLIA [id number] [address] Erythrocyte distribution width (RBC) [Ratio] 15.7 % High 11.5-15.0 [facility] Comment on above: Order Comment: Speci men Type: BLOOD SPECIMEN [facility] Address: [address] [place] [address] Performed By: #### 5 7021-8 #### [facility] CLIA [id number] [address] [place] Hematocrit (Bld) [Volume fraction] 37.3 % Normal 36.0-46.0 [facility] Comment on above: Order Comment: Speci men Type: BLOOD SPECIMEN [facility] Address: [address] [place] [address] Performed By: #### 5 7021-8 #### [facility] CLIA [id number] [address] Hemoglobin (Bld) [Mass/Vol] 12.1 g/dL Normal 11.5-15.5 [facility] Comment on above: Order Comment: Speci men Type: BLOOD SPECIMEN [facility] Address: [address] [place] [address] Performed By: #### 5 7021-8 #### [facility] CLIA [id number] [address] IMMATURE GRAN % 0.3 % Normal [facility] Comment on above: Order Comment: Speci men Type: BLOOD SPECIMEN [facility] Address: [address] [place] [address] Performed By: #### 5 7021-8 #### [facility] CLIA [id number] [address] IMMATURE GRAN ABS <0.03 Normal <0.10 [facility] Comment on above: Order Comment: Speci men Type: BLOOD SPECIMEN [facility] Address: [address] [place] [address] Performed By: #### 5 7021-8 #### [facility] CLIA [id number] [address] [place] Lymphocytes (Bld) [#/Vol] 1.02 10*3/uL Normal 1.00-4.00 [facility] Comment on above: Order Comment: Speci men Type: BLOOD SPECIMEN [facility] Address: [address] [place] [address] Performed By: #### 5 7021-8 #### [facility] CLIA [id number] [address] Lymphocytes/100 WBC (Bld) 13.8 % Normal [facility] Comment on above: Order Comment: Speci men Type: BLOOD SPECIMEN [facility] Address: [address] [place] [address] Performed By: #### 5 7021-8 #### [facility] CLIA [id number] [address] MCH (RBC) [Entitic mass] 29.2 pg Normal 26.0-34.0 [facility] Comment on above: Order Comment: Speci men Type: BLOOD SPECIMEN [facility] Address: [address] [place] [address] Performed By: #### 5 7021-8 #### [facility] CLIA [id number] [address] MCHC (RBC) [Mass/Vol] 32.4 g/dL Normal 30.5-36.0 [facility] Comment on above: Order Comment: Speci men Type: BLOOD SPECIMEN [facility] Address: [address] [place] [address] Performed By: #### 5 7021-8 #### [facility] CLIA [id number] [address] MCV (RBC) [Entitic vol] 90.1 fL Normal 80.0-100.0 [facility] Comment on above: Order Comment: Speci men Type: BLOOD SPECIMEN [facility] Address: [address] [place] [address] Performed By: #### 5 7021-8 #### [facility] CLIA [id number] [address] Monocytes (Bld) [#/Vol] 0.98 10*3/uL High <0.87 [facility] Comment on above: Order Comment: Speci men Type: BLOOD SPECIMEN [facility] Address: [address] [place] [address] Performed By: #### 5 7021-8 #### [facility] CLIA [id number] [address] Monocytes/100 WBC (Bld) 13.3 % Normal [facility] Comment on above: Order Comment: Speci men Type: BLOOD SPECIMEN [facility] Address: [address] [address] Performed By: #### 5 7021-8 #### [facility] CLIA [id number] [address] [place] [address] [place] Neutrophils (Bld) [#/Vol] 5.31 10*3/uL Normal 1.45-7.50 [facility] Comment on above: Order Comment: Speci men Type: BLOOD SPECIMEN [facility] Address: [address] [place] [address] Performed By: #### 5 7021-8 #### [facility] CLIA [id number] [address] Neutrophils/100 WBC (Bld) 71.9 % Normal [facility] Comment on above: Order Comment: Speci men Type: BLOOD SPECIMEN [facility] Address: [address] [place] [address] Performed By: #### 5 7021-8 #### [facility] CLIA [id number] [address] [place] Nucleated RBC (Bld) [#/Vol] 10*3/uL Normal <0.01 [facility] Comment on above: Order Comment: Speci men Type: BLOOD SPECIMEN Ordering Facility: [facility] Address: [address] [place] [address] Performed By: #### 5 7021-8 #### [facility] CLIA [id number] [address] Nucleated RBC/100 WBC (Bld) [Ratio] 0.0 /100 WBC Normal [facility] Comment on above: Order Comment: Speci men Type: BLOOD SPECIMEN Ordering Facility: [facility] Address: [address] [place] [address] Performed By: #### 5 7021-8 #### [facility] CLIA [id number] [address] [place] Platelet mean volume (Bld) [Entitic vol] 10.2 fL Normal 9.0-12.7 [facility] Comment on above: Order Comment: Speci men Type: BLOOD SPECIMEN Ordering Facility: [facility] Address: [address] [place] [address] Performed By: #### 5 7021-8 #### [facility] CLIA [id number] [address] [place] Platelets (Bld) [#/Vol] 260 10*3/uL Normal 150-400 [facility] Comment on above: Order Comment: Speci men Type: BLOOD SPECIMEN Ordering Facility: [facility] Address: [address] [place] [address] Performed By: #### 5 7021-8 #### [facility] CLIA [id number] [address] [place] RBC (Bld) [#/Vol] 4.14 10*6/uL Normal 3.90-5.20 [facility] Comment on above: Order Comment: Speci men Type: BLOOD SPECIMEN Ordering Facility: [facility] Address: [address] [place] [address] Performed By: #### 5 7021-8 #### [facility] CLIA [id number] [address] [place] WBC (Bld) [#/Vol] 7.38 10*3/uL Normal 3.70-11.00 [facility] Comment on above: Order Comment: Speci men Type: BLOOD SPECIMEN Ordering Facility: [facility] Address: [address] [place], [place] [address] Performed By: #### 5 7021-8 #### [facility] CLIA [id number] [address] CBC panel Auto (Bld)on 03-09 Erythrocyte distribution width (RBC) [Ratio] 15.9 % High 11.5-15.0 [facility] Comment on above: Order Comment: Speci men Type: BLOOD SPECIMENOrdering Facility: [facility] Address: [address] [place] [address] Performed By: #### 5 8410-2 ####[facility] [id number] [address] Hematocrit (Bld) [Volume fraction] 38.2 % Normal 36.0-46.0 [facility] Comment on above: Order Comment: Speci men Type: BLOOD SPECIMENOrdering Facility: [facility] Address: [address] [place] [address] Performed By: #### 5 8410-2 ####[facility]ORYCLIA [id number] [address] [place] Hemoglobin (Bld) [Mass/Vol] 12.1 g/dL Normal 11.5-15.5 [facility] Comment on above: Order Comment: Speci men Type: BLOOD SPECIMENOrdering Facility: [facility] Address: [address] [place] [address] Performed By: #### 5 8410-2 ####[facility]ATORYCLIA [id number] [address] MCH (RBC) [Entitic mass] 28.8 pg Normal 26.0-34.0 [facility] Comment on above: Order Comment: Speci men Type: BLOOD SPECIMENOrdering Facility: [facility] Address: [address] [place] [address] Performed By: #### 5 8410-2 ####[facility]ATORYCLIA [id number] [address] MCHC (RBC) [Mass/Vol] 31.7 g/dL Normal 30.5-36.0 [facility] Comment on above: Order Comment: Speci men Type: BLOOD SPECIMENOrdering Facility: [facility] Address: [address] [place] [address] Performed By: #### 5 8410-2 ####[facility]ORYCLIA [id number] [address] MCV (RBC) [Entitic vol] 91.0 fL Normal 80.0-100.0 [facility] Comment on above: Order Comment: Speci men Type: BLOOD SPECIMENOrdering Facility: [facility] Address: [address] [address] Performed By: #### 5 8410-2 ####[facility]ORATORYCLIA [id number] [place] [address] [place] Nucleated RBC (Bld) [#/Vol] 10*3/uL Normal <0.01 [facility] Comment on above: Order Comment: Speci men Type: BLOOD SPECIMENOrdering Facility: [facility] Address: [address] [place] [address] Performed By: #### 5 8410-2 ####[facility]ATORYCLIA [id number] [place] [address] [place] Platelet mean volume (Bld) [Entitic vol] 10.3 fL Normal 9.0-12.7 [facility] Comment on above: Order Comment: Speci men Type: BLOOD SPECIMENOrdering Facility: [facility] Address: [address] [place] [address] Performed By: #### 5 8410-2 ####[facility]ORYCLIA [id number] [address] [place] Platelets (Bld) [#/Vol] 223 10*3/uL Normal 150-400 [facility] Comment on above: Order Comment: Speci men Type: BLOOD SPECIMENOrdering Facility: [facility] Address: [address] [place] [address] Performed By: #### 5 8410-2 ####[facility]ATORYCLIA [id number] [place] [address] [place] RBC (Bld) [#/Vol] 4.20 10*6/uL Normal 3.90-5.20 [facility] Comment on above: Order Comment: Speci men Type: BLOOD SPECIMENOrdering Facility: [facility] Address: [address] [place] [address] Performed By: #### 5 8410-2 ####[facility]ATORYCLIA [id number] [place] [address] [place] WBC (Bld) [#/Vol] 5.86 10*3/uL Normal 3.70-11.00 [facility] Comment on above: Order Comment: Speci men Type: BLOOD SPECIMENOrdering Facility: [facility] Address: [address] [place] [address] Performed By: #### 5 8410-2 ####[facility]ATORYCLIA [id number] [place] [address] [place] CONSULTon 03-09-2022 CONSULT HNO ID: [id number] Author: Tressa Roberts APRN.CNP Service: Infectious Disease [...] reports having an ischemic stroke last at [facility] leaving her with residual left-sided weakness mainly in her left leg. She was discharged to [facility] rehab and left AMA today [...] this time. She wishes to go to [facility] for rehab. ? ED workup: [...] the HP (more content not included)... Normal [facility] CRP SerPl-mCncon 03-09-2022 CRP [Mass/Vol] 4.6 mg/dL High <0.9 [facility] Comment on above: Order Comment: Speci men Type: BLOOD SPECIMENOrdering Facility: [facility] Address: [address] [place] [address] Performed By: #### 1 988-5, 08897-7 ####[facility]ORYCLIA [id number] [place] [address] [place] Comprehensive metabolic 2000 panelon 03-09-2022 Albumin [Mass/Vol] 3.9 g/dL Normal 3.9-4.9 [facility] Comment on above: Order Comment: Speci men Type: BLOOD SPECIMENOrdering Facility: [facility] Address: [address] [place] [address] Performed By: #### 1 988-5, 66386-2 ####[facility]ATORYCLIA [id number] [place] [address] [place] ALP [Catalytic activity/Vol] 78 U/L Normal 34-123 [facility] Comment on above: Order Comment: Speci men Type: BLOOD SPECIMENOrdering Facility: [facility] Address: [address] [place] [address] Performed By: #### 1 988-5, 72158-1 ####[facility]ORYCLIA [id number] [address] [place] ALT [Catalytic activity/Vol] 17 U/L Normal 7-38 [facility] Comment on above: Order Comment: Speci men Type: BLOOD SPECIMENOrdering Facility: [facility] Address: [address] [address] Performed By: #### 1 988-5, 28538-8 ####[facility]ATORYCLIA [id number] [place] [address] [place] Anion gap [Moles/Vol] 10 mmol/L Normal 9-18 [facility] Comment on above: Order Comment: Speci men Type: BLOOD SPECIMENOrdering Facility: [facility] Address: [address] [address] Performed By: #### 1 988-5, 44776-9 ####[facility]ATORYCLIA [id number] [address] [place] AST [Catalytic activity/Vol] 29 U/L Normal 13-35 [facility] Comment on above: Order Comment: Speci men Type: BLOOD SPECIMENOrdering Facility: [facility] Address: [address] [address] Performed By: #### 1 988-5, 60142-5 ####[facility]ATORYCLIA [id number] [place] [address] [place] Bilirubin [Mass/Vol] 0.6 mg/dL Normal 0.2-1.3 [facility] Comment on above: Order Comment: Speci men Type: BLOOD SPECIMENOrdering Facility: [facility] Address: [address] [address] Performed By: #### 1 988-5, 97983-0 ####[facility]ATORYCLIA [id number] [place] [address] [place] Calcium [Mass/Vol] 9.1 mg/dL Normal 8.5-10.2 [facility] Comment on above: Order Comment: Speci men Type: BLOOD SPECIMENOrdering Facility: [facility] Address: [address] [place] [address] Performed By: #### 1 988-5, ####[facility]ATORYCLIA [id number] [place] [address] [place] Chloride [Moles/Vol] 98 mmol/L Normal 97-105 [facility] Comment on above: Order Comment: Speci men Type: BLOOD SPECIMENOrdering Facility: [facility] Address: [address] [place] [address] Performed By: #### 1 988-5, ####[facility]ATORYCLIA [id number] [place] [address] [place] CO2 [Moles/Vol] 30 mmol/L Normal 22-30 [facility] Comment on above: Order Comment: Speci men Type: BLOOD SPECIMENOrdering Facility: [facility] [place] Address: [address] [place] [address] Performed By: #### 1 988-5, ####[facility]ATORYCLIA [id number] [place] [address] [place] Creatinine [Mass/Vol] 0.89 mg/dL Normal 0.58-0.96 [facility] Comment on above: Order Comment: Speci men Type: BLOOD SPECIMENOrdering Facility: [facility] [place] [facility] Address: [address] Performed By: #### 1 988-5, ####[facility]ATORYCLIA [id number] [place] [address] [place] ESTIMATED GLOMERULAR FILTRATION RATE 77 mL/min/1.73m??? Normal >=60 [facility] Comment on above: Order Comment: Speci men Type: BLOOD SPECIMENOrdering Facility: [facility] [place] [facility] Address: [address] [place] [address] Result Comment: Cecille mated Glomerular Filtration Rate [...] reflect actual GFR. Performed By: #### 1 988-5, 31107-7 ####[facility]ATORYCLIA [id number] [place] [address] [place] Glucose [Mass/Vol] 106 mg/dL High 74-99 [facility] Comment on above: Order Comment: Susie santizo Type: BLOOD SPECIMENOrdering Facility: [facility] [place] [facility] Address: [address] [place] [address] Result Comment: The [place] Diabetes Association (ADA) provides guidance for cutoff [...] Standards of Medical Care in Diabetes 2016, [employer] Association. Diabetes Care. 2016.39(Suppl 1). Performed By: #### 1 988-5, 43704-6 ####[facility]ATORYCLIA [id number] [place] [id number] [place] Potassium [Moles/Vol] 3.5 mmol/L Low 3.7-5.1 [facility] Comment on above: Order Comment: Susie santizo Type: BLOOD SPECIMENOrdering Facility: [facility] Address: [address] [place] [address] Performed By: #### 1 988-5, 32842-9 ####[facility]ATORYCLIA [id number] [place] [address] [place] Protein [Mass/Vol] 7.5 g/dL Normal 6.3-8.0 [facility] Comment on above: Order Comment: Speci men Type: BLOOD SPECIMENOrdering Facility: [facility] Address: [address] [place], [place] [address] Performed By: #### 1 988-5, 20445-7 ####[facility]ATORYCLIA [id number] [place] [address] [place] Sodium [Moles/Vol] 138 mmol/L Normal 136-144 [facility] Comment on above: Order Comment: Speci men Type: BLOOD SPECIMENOrdering Facility: [facility] Address: [address] [place], [place] [address] Performed By: #### 1 988-5, 69591-5 ####[facility]ATORYCLIA [id number] [place] [address] [place] Urea nitrogen [Mass/Vol] 16 mg/dL Normal 7-21 [facility] Comment on above: Order Comment: Speci men Type: BLOOD SPECIMENOrdering Facility: [facility] [place] [facility] Address: [address] [place], [place] [address] Performed By: #### 1 988-5, 63485-0 ####[facility]ATORYCLIA [id number] [place] [address] [place] Albumin [Mass/Vol] 3.9 g/dL Normal 3.9-4.9 [facility] Comment on above: Order Comment: Speci men Type: BLOOD SPECIMENOrdering Facility: [facility] [place] [facility] Address: [address] [place], [place] [address] Performed By: #### 1 9123-9, 91958-9, 3016-3 ####[facility]ORYCLIA [id number] [place] [address] [place] ALP [Catalytic activity/Vol] 78 U/L Normal 34-123 [facility] Comment on above: Order Comment: Speci men Type: BLOOD SPECIMENOrdering Facility: [facility] [place] [facility] Address: [address] [place], [place] [address] Performed By: #### 1 9123-9, 22456-9, 3016-3 ####[facility]ORYCLIA [id number] [place] [address] [place] ALT [Catalytic activity/Vol] 17 U/L Normal 7-38 [facility] Comment on above: Order Comment: Speci men Type: BLOOD SPECIMENOrdering Facility: [facility] [place] [facility] Address: [address] [place] [address] Performed By: #### 1 9123-9, 24444-9, 3016-3 ####[facility]ORYCLIA [id number] [address] STATES OF [facility] Anion gap [Moles/Vol] 10 mmol/L Normal 9-18 [facility] Comment on above: Order Comment: Speci men Type: BLOOD SPECIMENOrdering Facility: [facility] [place] [facility] Address: [address] [place] [address] Performed By: #### 1 9123-9, 91754-2, 6-3 ####[facility]ORYCLIA [id number] [address] STATES [facility] AST [Catalytic activity/Vol] Normal [facility] Comment on above: Order Comment: Speci men Type: BLOOD SPECIMENOrdering Facility: [facility] [place] Address: [address] [place] [address] Result Comment: Unab le to assay due to interference from hemolysis. Suggest reorder as clinically indicated. Performed By: #### 1 9123-9, 59155-0, 6-3 ####[facility]ORYCLIA [id number] [address] [place] Bilirubin [Mass/Vol] 0.5 mg/dL Normal 0.2-1.3 [facility] Comment on above: Order Comment: Speci men Type: BLOOD SPECIMENOrdering Facility: [facility] [place] [facility] Address: [address] [place] [address] Performed By: #### 1 9123-9, 29561-9, 6-3 ####[facility]ATORYCLIA [id number] [address] STATES OF [facility] Calcium [Mass/Vol] 9.3 mg/dL Normal 8.5-10.2 [facility] Comment on above: Order Comment: Speci men Type: BLOOD SPECIMENOrdering Facility: [facility] [place] [facility] Address: [address] [place] [address] Performed By: #### 1 9123-9, 02815-9, 3016-3 ####[facility]ATORYCLIA [id number] [place] [address] [place] Chloride [Moles/Vol] 98 mmol/L Normal 97-105 [facility] Comment on above: Order Comment: Speci men Type: BLOOD SPECIMENOrdering Facility: [facility] [place] [facility] Address: [address] [place] [address] Performed By: #### 1 9123-9, 00164-2, 6-3 ####[facility]ATORYCLIA [id number] [place] [address] [place] CO2 [Moles/Vol] 28 mmol/L Normal 22-30 [facility] Comment on above: Order Comment: Speci men Type: BLOOD SPECIMENOrdering Facility: [facility] [place] [facility] Address: [address] [place] [address] Performed By: #### 1 9123-9, 23393-7, 6-3 ####[facility]ATORYCLIA [id number] [place] [address] [place] Creatinine [Mass/Vol] 0.85 mg/dL Normal 0.58-0.96 [facility] Comment on above: Order Comment: Speci men Type: BLOOD SPECIMENOrdering Facility: [facility] [place] [facility] Address: [address] [place] [address] Performed By: #### 1 9123-9, 83184-2, 3016-3 ####[facility]ATORYCLIA [id number] [place] [address] [place] ESTIMATED GLOMERULAR FILTRATION RATE 82 mL/min/1.73m??? Normal >=60 [facility] Comment on above: Order Comment: Speci men Type: BLOOD SPECIMENOrdering Facility: [facility] [place] [facility] Address: [address] [place] [address] Result Comment: Cecille mated Glomerular Filtration Rate [...] actual GFR. Performed By: #### 1 9123-9, 19500-1, 6-3 ####[facility]ORATORYCLIA [id number] [place] [address] [place] Glucose [Mass/Vol] 139 mg/dL High 74-99 [facility] Comment on above: Order Comment: Susie santizo Type: BLOOD SPECIMENOrdering Facility: [facility] [place] [facility] Address: [address] [place] [address] Result Comment: The [place] Diabetes Association (ADA) provides guidance for cutoff [...] Standards of Medical Care in Diabetes 2016, [place] Diabetes Association. Diabetes Care. 2016.39(Suppl 1). Performed By: #### 1 9123-9, 82283-3, 3 ####[facility]ORATORYCLIA [id number] [place] [address] [place] Potassium [Moles/Vol] 4.2 mmol/L Normal 3.7-5.1 [facility] Comment on above: Order Comment: Susie santizo Type: BLOOD SPECIMENOrdering Facility: [facility] [place] [facility] Address: [address] [place] [address] Performed By: #### 1 9123-9, 18129-4, 6-3 ####[facility]ORATORYCLIA [id number] [place] [address] [place] Protein [Mass/Vol] 7.5 g/dL Normal 6.3-8.0 [facility] Comment on above: Order Comment: Speci men Type: BLOOD SPECIMENOrdering Facility: [facility] [place] [facility] Address: [address] [place] [address] Performed By: #### 1 9123-9, 16573-1, 3016-3 ####[facility]ORATORYCLIA [id number] [address] Sodium [Moles/Vol] 136 mmol/L Normal 136-144 [facility] Comment on above: Order Comment: Speci men Type: BLOOD SPECIMENOrdering Facility: [facility] [facility] Address: [address] [place] [address] Performed By: #### 1 9123-9, 60685-1, 6-3 ####[facility]ATORYCLIA [id number] [address] Urea nitrogen [Mass/Vol] 16 mg/dL Normal 7-21 [facility] Comment on above: Order Comment: Speci men Type: BLOOD SPECIMENOrdering Facility: [facility] Address: [address] [place] [address] Performed By: #### 1 9123-9, 54847-3, 6-3 ####[facility]ORATORYCLIA [id number] [address] D dimer FEU PPP-mCncon 03-09 Fibrin D-dimer FEU (PPP) [Mass/Vol] 2390 ng/mL FEU High <500 [facility] Comment on above: Order Comment: Speci men Type: BLOOD SPECIMENOrdering Facility: [facility] Address: [address] [place] [address] Performed By: #### 4 8065-7, 66679-9 ####[facility]ORATORYCLIA [id number] [address] ED NOTEon 03-09-2022 ED NOTE HNO ID: [id number] Author: Viji Spears RN Service: ? Author Type: Registered Nurse Type: ED Notes Filed: 03/08/2022 10:49 PM Note Text: Bed: ED-04 Expected date: Expected time: Means of arrival: [place] [facility] Comments: Normal [facility] ED PROV NOTEon 03-09-2022 ED PROV NOTE HNO ID: [id number] Author: Jean-Paul Cool MD Service: ? Author [...] weakness. She states this was done at [facility]. She was then discharged to [facility] rehab and left AMA today as she [...] patient wishes to go to [facility] rehab History provided by: Patient and [...] mild we (more content not included)... Normal [facility] Fibrin D-dimer FEU (PPP) [Ma ss/Vol]on 03-09-2022 D DIMER AGE-RELATED CUTOFF 540 ng/mL FEU Normal [facility] Comment on above: Order Comment: Speci men Type: BLOOD SPECIMENOrdering Facility: [facility] [place] Address: [address] [place], [place] [address] Performed By: #### 4 8065-7, 94805-7 ####ALSIP LABORATORYCLIA [id number] [place] [address] [facility] HISTORY PHYSICALon HISTORY PHYSICAL HNO ID: [id number] Author: Eddy Rebolledo MD Service: General Internal Medicine Author Type: Physician Type: HANDP Filed: 03/09/2022 11:18 AM Note Text: History and Physical Examination 03/09/2022 [facility] STAFF PHYSICIAN NOTE OF PERSONAL INVOLVEMENT IN [...] reports having an ischemic stroke last at [facility] leaving her with residual left-sided weakness mainly in her left leg. She was discharged to [facility] rehab and left AMA today [...] this time. She wishes to go to [facility] for rehab. ED workup: Labs [...] mouth once (more content not included)... Normal [facility] Magnesium SerPl-mCncon 03-09 Magnesium [Mass/Vol] 1.9 mg/dL Normal 1.7-2.3 [facility] Comment on above: Order Comment: Speci men Type: BLOOD SPECIMENOrdering Facility: [facility] [place] [facility] Address: [address] [place] [address] Performed By: #### 1 9123-9, 67816-5, 3016-3 ####ALSIP LABORATORYCLIA [id number] [place] [address] [facility] [place] NURSING PROGon 03-09-2022 NURSING PROG HNO ID: [id number] Author: Stefany Wagoner LPN Service: Nursing Author Type: LICENSED NURSE Type: Nursing Progress Note Filed: 03/09/2022 5:04 PM Note Text: Nursing Progress Note Patient Name: Bradley Matos Patient Location[place] [facility]/[id number] Daily Note: 0945 Call placed to [facility] [phone] to try to obtain pts medication list from her admission there. The secretsry tried to locate the info. Then she took name and number and said she was going to see if pharmacy would be able to provide the needed info. Will call back. 1015 Spoke with Lani Tsang, pharmacist who provided list of medications pt had been taking at [facility]. Updated home medication list and notified Dr Rebolledo that it was completed. 1430 Pt having large amount gritty diarrhea. Noted MD for pt request for lomotil. 1630 PRN imodium, newly ordered, provided to pt for c/o diarrhea. This note was completed by: Stefany Wagoner [facility] PT panel Coag (PPP)on 2021 INR Coag (PPP) [Relative time] 1.0 {INR} Normal 0.9-1.3 [facility] Comment on above: Order Comment: Speci men Type: BLOOD SPECIMENOrdering Facility: [facility] [place] [facility] Address: [address] [place] [address] Result Comment: Maral min K Antagonist (VKA) Therapeutic Range: INR 2 to 3 (Target INR of 2.5) Note: For patients treated with VKA drugs, such as warfarin, the [employer] 2012 Guideline recommends [...] HERMOSILLO, et al. Chest 2012, 141:7S-47S Hodan MENDES, et al. [facility] 2017, 70: 252-289 Performed By: #### 4 8065-7, 21385-2 ####ALSIP LABORATORYCLIA [id number] [place] [address] [place] PT Coag (PPP) [Time] 10.7 s Normal 9.7-13.0 [facility] Comment on above: Order Comment: Speci men Type: BLOOD SPECIMENOrdering Facility: [facility] [place] [facility] Address: [address] [place] [address] Performed By: #### 4 8065-7, 88413-3 ####ALSIP LABORATORYCLIA [id number] [place] [address] [place] SARS-CoV-2 RNA Resp Ql SAVANNAH+p robeon 03-09-2022 SARS-CoV-2 (COVID-19) RNA SAVANNAH+probe Ql (Resp) COVID 19 RESULT: SARS-CoV-2 (Agent of COVID-19) Detected by RT-PCR or equivalent method. This test has been authorized by FDA under an Emergency Use Authorization (EUA). Normal [facility] Comment on above: Performed By: #### 9 4500-6 ####ALSIP LABORATORYCLIA [id number] [place] [address] [place] THERAPY NTon 03-09-2022 THERAPY NT HNO ID: [id number] Author: Silvana Waggoner, PT Service: Physical Therapy Author Type: Physical Therapist Type: Therapy (PT/OT/Speech/Resp) Filed: 03/09/2022 5:10 PM Note Text: Physical Therapy Evaluation SERVICE DATE: 03/09/2022 SERVICE TIME: 1505 to 1551 ROOM: [place] [address] Recommended Discharge Disposition: Subacute/SNF Recommended Discharge Disposition [...] Reduced mobility-other (more content not included)... Normal [facility] TROPONIN Ton 03-09-2022 Troponin T.cardiac [Mass/Vol] ug/L Normal 0.000-0.029 [facility] Comment on above: Order Comment: Susie men Type: BLOOD SPECIMENOrdering Facility: [facility] [place] [facility] Address: [address] [place] [address] Performed By: #### T NT ####ALSIP LABORATORYCLIA [id number] [place] [address] [place] TSH SerPl-aCncon 03-09-2022 TSH Qn 2.680 m[IU]/L Normal 0.270-4.200 [facility] Comment on above: Order Comment: Susie men Type: BLOOD SPECIMENOrdering Facility: [facility] [place] [facility] Address: [address] [place] [address] Performed By: #### 1 9123-9, 02072-6, 3016-3 ####L[facility] LABORATORYCLIA [id number] [address] URINALYSIS, REFLEX MICROSCOP ICon 03-09-2022 Bilirubin Ql (U) Negative Normal Negative [facility] Comment on above: Order Comment: Speci men Type: BLOOD SPECIMEN [facility] [place] Address: [address] [place] [address] Performed By: #### 5 7021-8 #### L[facility]ERT [facility]ORATORY CLIA [id number] [address] Clarity (Unsp spec) Clear Normal Clear [facility] Comment on above: Order Comment: Speci men Type: BLOOD SPECIMEN Ordering Facility: [facility] Address: [address] [place] [address] Performed By: #### 5 7021-8 #### [facility] CLIA [id number] [address] Color (U) Yellow Normal Yellow [facility] Comment on above: Order Comment: Speci men Type: BLOOD SPECIMEN Ordering Facility: [facility] Address: [address] [place] [address] Performed By: #### 5 7021-8 #### [facility] CLIA [id number] [address] Epithelial cells LM.HPF (Urine sed) [#/Area] Few Normal [facility] Comment on above: Order Comment: Speci men Type: BLOOD SPECIMEN Ordering Facility: [facility] Address: [address] [place] [address] Performed By: #### 5 7021-8 #### [facility] CLIA [id number] [address] Glucose Test strip (U) [Mass/Vol] Negative Normal Negative [facility] Comment on above: Order Comment: Speci men Type: BLOOD SPECIMEN Ordering Facility: [facility] Address: [address] [place], [place] [address] Performed By: #### 5 7021-8 #### [facility] CLIA [id number] [address] Hemoglobin Ql (U) Negative Normal Negative [facility] Comment on above: Order Comment: Speci men Type: BLOOD SPECIMEN Ordering Facility: [facility] Address: [address] [address] Performed By: #### 5 7021-8 #### [facility] CLIA [id number] [address] [facility] Ketones Ql (U) Negative Normal Negative [facility] Comment on above: Order Comment: Speci men Type: BLOOD SPECIMEN Ordering Facility: [facility] Address: [address] [address] Performed By: #### 5 7021-8 #### [facility] CLIA [id number] [address] Leukocyte esterase Test strip Ql (U) Negative Normal Negative [facility] Comment on above: Order Comment: Speci men Type: BLOOD SPECIMEN Ordering Facility: [facility] Address: [address] [address] Performed By: #### 5 7021-8 #### [facility] CLIA [id number] [address] Nitrite Ql (U) Negative Normal Negative [facility] Comment on above: Order Comment: Speci men Type: BLOOD SPECIMEN Ordering Facility: [facility] Address: [address] [address] Performed By: #### 5 7021-8 #### [facility] CLIA [id number] [address] pH (U) 6.0 [pH] Normal 5.0-8.0 [facility] Comment on above: Order Comment: Speci men Type: BLOOD SPECIMEN Ordering Facility: [facility] Address: [address] [address] Performed By: #### 5 7021-8 #### [facility] CLIA [id number] [address] Protein (U) [Mass/Vol] Trace Abnormal Negative [facility] Comment on above: Order Comment: Speci men Type: BLOOD SPECIMEN Ordering Facility: [facility] Address: [address] [place] [address] Performed By: #### 5 7021-8 #### [facility] CLIA [id number] [address] RBC LM.HPF (Urine sed) [#/Area] 0-3 /HPF Normal 0-3 /HPF [facility] Comment on above: Order Comment: Speci men Type: BLOOD SPECIMEN Ordering Facility: [facility] Address: [address] [place] [address] Performed By: #### 5 7021-8 #### [facility] CLIA [id number] [address] Specific gravity (U) [Rel density] >=1.030 High 1.005-1.030 [facility] Comment on above: Order Comment: Speci men Type: BLOOD SPECIMEN Ordering Facility: [facility] Address: [address] [place] [address] Performed By: #### 5 7021-8 #### [facility] CLIA [id number] [address] Urobilinogen Ql (U) 1.0 EU/dL Normal 0.2-1.0 EU/dL [facility] Comment on above: Order Comment: Speci men Type: BLOOD SPECIMEN Ordering Facility: [facility] Address: [address] [place] [address] Performed By: #### 5 7021-8 #### [facility] CLIA [id number] [address] WBC LM.HPF (Urine sed) [#/Area] 0-5 /HPF Normal 0-5 /HPF [facility] Comment on above: Order Comment: Speci men Type: BLOOD SPECIMEN Ordering Facility: [facility] Address: [address] [place] [address] Performed By: #### 5 7021-8 #### [facility] CLIA [id number] 1000 [place] [address] [place] Vit B12 SerPl-mCncon 022 Cobalamin (Vitamin B12) [Mass/Vol] 455 pg/mL Normal 232-1,245 [facility] Comment on above: Order Comment: Speci men Type: BLOOD SPECIMENOrdering Facility: [facility] Address: [address] [place] [address] Performed By: #### 2 132-9 ####[facility]ORY[facility] [id number] [place] [address] [place] XR CHEST 1V FRONTAL PORTon 0 03-09-2022 [...] Other: . IMPRESSION: No acute radiographic abnormality. 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 Transcribe Date/Time: Mar 09 2022 7:07A Dictated by : Chris TOLENTINO MD This examination was interpreted and the report reviewed and electronically signed by: Chris TOLENTINO MD on Mar 09 2022 7:09AM EST [id number] Normal [facility] Basic Metabolic Panelon 02-07 Calcium [Mass/Vol] 9.1 mg/dL Normal 8.4-10.4 [facility] [employer] Comment on above: Performed By: #### H HUGO ALEX3Rigoberto ####[employer] [id number] [place] [address] Glucose [Mass/Vol] 146 mg/dL High 70-100 [facility] Comment on above: Performed By: #### H EMOG, BMP3M ####[address] [place] [address] Urea nitrogen [Mass/Vol] 14 mg/dL Normal 9-20 [facility] Comment on above: Performed By: #### H ABI, BMP3M ####[address] [place] [address] Anion gap [Moles/Vol] 8 mmol/L Normal 3-13 [facility] Comment on above: Performed By: #### H ABI, BMP3M ####[address] [place] [address] CO2 [Moles/Vol] 29 mmol/L Normal 22-30 [facility] Comment on above: Performed By: #### H ABI BMP3M ####[address] [place] [address] Creatinine [Mass/Vol] 0.81 mg/dL Normal 0.52-1.25 [facility] Comment on above: Performed By: #### H ABI BMP3M ####[address] [place] [address] GFR/1.73 sq M.predicted among blacks MDRD (S/P/Bld) [Vol rate/Area] mL/min/{1.73_m2} Normal >60 [facility] Comment on above: Performed By: #### H ABI, BMP3M ####[address] [address] GFR/1.73 sq M.predicted among non-blacks MDRD (S/P/Bld) [Vol rate/Area] 81.8 mL/min/{1.73_m2} Normal >60 [facility] Comment on above: Result Comment: [...] tubular creatinine secretion. Performed By: #### H REKHA ALEX ####[address] [place] [address] Potassium [Moles/Vol] 3.9 mmol/L Normal 3.5-5.1 [facility] Comment on above: Performed By: #### H REKHA ALEX ####[address] [place] [address] Chloride [Moles/Vol] 100 mmol/L Normal 98-107 [facility] Comment on above: Performed By: #### H REKHA ALEX ####[address] [place] [address] Sodium [Moles/Vol] 136 mmol/L Normal 135-145 [facility] Comment on above: Performed By: #### H REKHA ALEX ####[address] [place] [address] Basic Metabolic Panel w/ Ref deep to MGon 03-05-2022 Anion gap [Moles/Vol] 8 mmol/L 3 - 13 mmol/L [facility] Calcium [Mass/Vol] 9.1 mg/dL 8.4 - 10. 4 mg/dL [facility] Chloride [Moles/Vol] 100 mmol/L 98 - 10 7 mmol/L [facility] CO2 [Moles/Vol] 29 mmol/L 22 - 30 mmol/L [facility] Creatinine [Mass/Vol] 0.81 mg/dL 0.52 - 1.25 mg/dL [facility] EGFR IF NonAfrican Swiss 81.8 mL/min >60 [facility] Comment on above: KDIGO guidelines pro vide [...] [Mass/Vol] 14 mg/dL 9 - 20 mg/dL [facility] Test Performed by [id number] [place] [address] LAB [facility] CBCon 03-05-2022 Hematocrit (Bld) [Volume fraction] 37.6 % 35.0 - 47.0 % [facility] Hemoglobin (Bld) [Mass/Vol] 12.3 g/dL 11.7 - 16.0 g/dL [facility] Interpretation and review of laboratory results Abnormal [...] [#/Vol] 286 10*3/uL 140 - 440 10*3/uL [facility] RBC (Bld) [#/Vol] 4.29 10*6/uL 3.80 - 5.2 0 10*6/uL [facility] WBC (Bld) [#/Vol] 8.9 10*3/uL 3.6 - 10.7 10*3/uL [facility] Test Performed by [address] LAB [facility] COVID-19, Antigenon 03-05-20 SARS-CoV-2 Nucleocapsid Antigen Negative Negative NA [facility] Comment on above: A negative result does not rule out the possibility of SARS-CoV-2 infection. NAAT-based methods should be considered for symptomatic patients presenting greater than seven days after onset of symptoms. Method: Lateral flow immunoassay. Fact sheets for healthcare providers and patients can be found at the following sites: https://www.fda.gov/media/645117/download https://www.fda.gov/media/189640/download Test Performed by [address] LAB [facility] Hemogramon 03-05-2022 Erythrocyte distribution width (RBC) [Ratio] 16.9 % High 11.5-14.5 [facility] Comment on above: Performed By: #### H HUGO ALEX3M ####[facility] [employer] [id number] [place], [place] Hematocrit (Bld) [Volume fraction] 37.6 % Normal 35.0-47.0 [facility] Comment on above: Performed By: #### H HUGO ALEX3M ####[facility] [employer] [id number] [place], [place] Hemoglobin (Bld) [Mass/Vol] 12.3 g/dL Normal 11.7-16.0 [facility] Comment on above: Performed By: #### H HUGO ALEX3M ####[facility] [employer] [id number] [place], [place] MCH (RBC) [Entitic mass] 28.7 pg Normal 26.0-34.0 [facility] Comment on above: Performed By: #### HUGO PARIS3Rigoberto ####[address] [place] MCHC 32.7 % Normal 32.0-36.0 [facility] Comment on above: Performed By: #### HUGO PARIS3M ####[address] MCV (RBC) [Entitic vol] 87.8 fL Normal 79.0-98.0 [facility] Comment on above: Performed By: #### HUGO PARIS3Rigoberto ####[address] Platelet mean volume (Bld) [Entitic vol] 8.0 fL Normal 7.4-12.4 [facility] Comment on above: Result Comment: MPV is a calculated measurement using platelet volume ratio. Performed By: #### HUGO PARIS3Rigoberto ####[address] Platelets (Bld) [#/Vol] 286 10*3/uL Normal 140-440 [facility] Comment on above: Performed By: #### HUGO PARIS3Rigoberto ####[address] RBC (Bld) [#/Vol] 4.29 10*6/uL Normal 3.80-5.20 [facility] Comment on above: Performed By: #### Cat ALEX BMP3M ####[address] WBC (Bld) [#/Vol] 8.9 10*3/uL Normal 3.6-10.7 [facility] Comment on above: Performed By: #### Cat ALEX BMP3M ####[address] SARS-CoV-2 Antigenon 022 SARS-CoV-2 Antigen Negative Normal Negative [facility] Comment on above: Result Comment: A negative result does not rule out the possibility of SARS-CoV-2 infection. NAAT-based methods should be considered for symptomatic patients presenting greater than seven days after onset of symptoms. Method: Lateral flow immunoassay. Fact sheets for healthcare providers and patients can be found at the following sites: https://www.HiWired.gov/media/036683/download https://www.HiWired.gov/FlightOffice/832675/download Performed By: #### C OVAG #### [facility] [address] [place] [address] VL LOWER EXTREMITY BILATERAL VENOUS DUPLEXon 03-05-2022 [facility] -- Lower Extremity Venous Duplex Report Patient Chapin, : 1965 Study 03/04/2022 Name: Bradley Schwartz (56yrs) Date: Patient [id number] Age: 56 Account: [id number] ID: Gender: F Loc: 1322 BP: Ordering Physician: Hannah Lucas Pourer Buggy Ladle: Nida Mann RVT Interpreting Physician: Russell Blankenship MD -- Location: [facility] -- Indications: Edema right entire leg. Edema [...] supine position. Images were obtained using a [employer] vascular ultrasound machine. The study was technically [...] -+ +R GS (more content not included)... [facility] Russell Blankenship MD - 03/05/2022 [facility] -- Lower Extremity Venous Duplex Report Patient Chapin, : 1965 Study 03/04/2022 Name: Bradley Schwartz (56yrs) Date: Patient [id number] Age: 56 Account: [id number] ID: Gender: F Loc: 1322 BP: Ordering Physician: Hannah Lucas Pourer Buggy Ladle: Nida Mann T Interpreting Physician: Russell Blankenship MD -- Location: [facility] -- Indications: Edema right entire leg. Edema [...] supine position. Images were obtained using a [employer] E10s vascular ultrasound machine. The study was technically [...] +--- ----+ ---+ (more content not included)... [employer] Work Phone: [facility] Work Phone: Basic Metabolic Panelon 06-2 Anion gap [Moles/Vol] 9 mmol/L Normal 3-13 [facility] Comment on above: Performed By: #### H ABI BMP3M ####[employer] [place] [address] Calcium [Mass/Vol] 9.0 mg/dL Normal 8.4-10.4 [facility] Comment on above: Performed By: #### H ABI BMP3M ####[employer] [place] [address] CO2 [Moles/Vol] 26 mmol/L Normal 22-30 [facility] Comment on above: Performed By: #### H ABI BMP3M ####[employer] [place] [address] Creatinine [Mass/Vol] 0.77 mg/dL Normal 0.52-1.25 [facility] Comment on above: Performed By: #### H ABI BMP3M ####[employer] [place] [address] GFR/1.73 sq M.predicted among blacks MDRD (S/P/Bld) [Vol rate/Area] mL/min/{1.73_m2} Normal >60 [facility] Comment on above: Performed By: #### REKHA PARIS ####[address] [place] [address] GFR/1.73 sq M.predicted among non-blacks MDRD (S/P/Bld) [Vol rate/Area] 87.0 mL/min/{1.73_m2} Normal >60 [facility] Comment on above: Result Comment: KDIG [...] creatinine secretion. Performed By: #### REKHA PARIS ####[address] [place] [address] Glucose [Mass/Vol] 127 mg/dL High 70-100 [facility] Comment on above: Performed By: #### REKHA PARIS ####[address] [place] [address] Urea nitrogen [Mass/Vol] 13 mg/dL Normal 9-20 [facility] Comment on above: Performed By: #### REKHA PARIS ####[address] [place] [address] Chloride [Moles/Vol] 100 mmol/L Normal 98-107 [facility] Comment on above: Performed By: #### REKHA PARIS ####[address] [place] [address] Potassium [Moles/Vol] 3.9 mmol/L Normal 3.5-5.1 [facility] Comment on above: Performed By: #### H HUGO ALEX3M ####[address] [place] [address] Sodium [Moles/Vol] 136 mmol/L Normal 135-145 [facility] Comment on above: Performed By: #### H HUGO ALEX3Rigoberto ####[address] [place] [address] Basic Metabolic Panel w/ Ref deep to MGon 03-04-2022 Anion gap [Moles/Vol] 9 mmol/L 3 - 13 mmol/L [facility] Calcium [Mass/Vol] 9.0 mg/dL 8.4 - 10. 4 mg/dL [facility] Chloride [Moles/Vol] 100 mmol/L 98 - 10 7 mmol/L [facility] CO2 [Moles/Vol] 26 mmol/L 22 - 30 mmol/L [facility] Creatinine [Mass/Vol] 0.77 mg/dL 0.52 - 1.25 mg/dL [facility] EGFR IF NonAfrican Swiss 87.0 mL/min >60 [facility] Comment on above: KDIGO guidelines pro vide [...] - 20 mg/dL [facility] Test Performed by [address] [address] [facility] CBCon 03-04-2022 Hematocrit (Bld) [Volume fraction] 38.0 % 35.0 - 47.0 % [facility] Hemoglobin (Bld) [Mass/Vol] 12.4 g/dL 11.7 - 16.0 g/dL [facility] Interpretation [...] - 10.7 10*3/uL [facility] Test Performed by [facility] [employer] [place] [address] [facility] Hemogramon 03-04-2022 Erythrocyte distribution width (RBC) [Ratio] 17.3 % High 11.5-14.5 [facility] Comment on above: Performed By: #### H EMOG, BMP3M ####[address] [place] Hematocrit (Bld) [Volume fraction] 38.0 % Normal 35.0-47.0 [facility] Comment on above: Performed By: #### H ABI BMP3M ####[address] [place] Hemoglobin (Bld) [Mass/Vol] 12.4 g/dL Normal 11.7-16.0 [facility] Comment on above: Performed By: #### H ABI BMP3M ####[address] MCH (RBC) [Entitic mass] 28.8 pg Normal 26.0-34.0 [facility] Comment on above: Performed By: #### Cat ALEX BMP3M ####[address] MCHC 32.7 % Normal 32.0-36.0 [facility] Comment on above: Performed By: #### Cat ALEX BMP3M ####[address] MCV (RBC) [Entitic vol] 88.2 fL Normal 79.0-98.0 [facility] Comment on above: Performed By: #### Cat ALEX BMP3M ####[address] [place], [place] Platelet mean volume (Bld) [Entitic vol] 8.3 fL Normal 7.4-12.4 [facility] Comment on above: Result Comment: MPV is a calculated measurement using platelet volume ratio. Performed By: #### H ABI BMP3M ####[address] [place], [place] Platelets (Bld) [#/Vol] 262 10*3/uL Normal 140-440 [facility] Comment on above: Performed By: #### Cat ALEX BMP3M ####[address] RBC (Bld) [#/Vol] 4.30 10*6/uL Normal 3.80-5.20 [facility] Comment on above: Performed By: #### H HUGO ALEX3M ####[facility] [id number] [place], [place] WBC (Bld) [#/Vol] 12.5 10*3/uL High 3.6-10.7 [facility] Comment on above: Performed By: #### H HUGO ALEX3M ####[employer] [id number] [place], [place] MRI BRAIN W WO CONTRASTon Patient Name: BRADLEY MATOS [facility] ACCESSION EXAM DATE/TIME PROCEDURE ORDERING PROVIDER [id number] 03/04/2022 12:55 EDT MRI Brain w/ + w/o GERARDO LUCAS, HANNAH Cody Contrast CPT code 61559 Reason For Exam (MRI Brain w/ + [...] LAURA Transcribed Date and Time: 03/04/2022 1:55 [facility] Donna Ortiz MD - 03/04/2022 Patient Name: BRADLEY MATOS [facility] ACCESSION EXAM DATE/TIME PROCEDURE ORDERING PROVIDER [id number] 03/04/2022 12:55 EDT MRI Brain w/ + w/o GERARDO LUCAS, HANNAH Perdue. Contrast CPT code 07681 Reason For Exam (MRI Brain w/ + [...] LAURA Transcribed Date and Time: 03/04/2022 1:55 [facility] Work Phone: MRI BRAIN W WO CONTRASTOrder ed By: Donna Ortiz on 03-04-2022 [facility] Work Phone: MRI Brain w/ + w/o Contrasto n 03-04-2022 MRI Brain w/ + w/o Contrast Patient Name: BRADLEY MATOS [facility] ACCESSION EXAM DATE/TIME PROCEDURE ORDERING PROVIDER [id number] 03/04/2022 12:55 EDT MRI Brain w/ + w/o GERARDO LUCAS, HANNAH K. Contrast CPT code 53299 Reason For Exam (MRI Brain w/ + [...] LAURA Transcribed Date and Time: 03/04/2022 1:55 [facility] MRI CERVICAL SPINE W WO CONT RASTon 03-04-2022 Patient Name: BRADLEY MATOS [facility] ACCESSION EXAM DATE/TIME PROCEDURE ORDERING PROVIDER [id number] 03/04/2022 12:55 EDT MRI Spine Cervical w/ + GERARDO LUCAS, HANNAH Cody w/o Contrast CPT code 56102 Reason For Exam (MRI Spine Cervical w/ [...] VLADIMIR Transcribed Date and Time: 03/04/2022 3:00 [facility] Result, Unknown Provider - 03/04/2022 [id number] ACCESSION EXAM DATE/TIME PROCEDURE ORDERING PROVIDER [id number] 03/04/2022 12:55 EDT MRI Spine Cervical w/ + GERARDO LUCAS, HANNAH KPhil w/o Contrast CPT code 12310 Reason For Exam (MRI Spine Cervical w/ [...] VLADIMIR Transcribed Date and Time: 03/04/2022 3:00 [facility] Work Phone: MRI CERVICAL SPINE W WO CONT RASTOrdered By: Unknown Result on 03-04-2022 [facility] MRI Spine Cervical w/ + w/o Contraston 03-04-2022 MRI Spine Cervical w/ + w/o Contrast [facility]: [id number] ACCESSION EXAM DATE/TIME PROCEDURE ORDERING PROVIDER [id number] 03/04/2022 12:55 EDT MRI Spine Cervical w/ + GERARDO LUCAS, HANNAH Cody w/o Contrast CPT code 84837 Reason For Exam (MRI Spine Cervical w/ [...] Transcribed Date and Time: 03/04/2022 3:00 Normal [facility] No Panel Informationon 03-04 Radiology Study observation (narrative) [facility] Work Phone: CAROTID BILATERALon 03-04 [facility] -- Carotid Duplex Report Patient Chapin, : 1965 Study 03/04/2022 Name: Bradley Schwartz (56yrs) Date: Patient [id number] Age: 56 Account: [id number] ID: Gender: F Loc: 1322 BP: Ordering Physician: Nida Holliday Pourer Buggy Ladle: Britney Levi T Interpreting Physician: Russell Blankenship MD -- Location: [facility] -- Indications: Stroke, MRA neck inconclusive. -- [...] supine position. Images were obtained using a [employer] vascular ultrasound machine. -- Findings Carotid/vertebral arteries: [...] -+-----+-----+ Prepared and electronically signed by Russell lBankenship MD 03/04/2022 11:59 [facility] Russell Blankenship MD - 03/04/2022 [facility] -- Carotid Duplex Report Patient Chapin, : 1965 Study 03/04/2022 Name: Bradley Schwartz (56yrs) Date: Patient [id number] Age: 56 Account: [id number] ID: Gender: F Loc: 1322 BP: Ordering Physician: Nida Holliday Pourer Buggy Ladle: Britney Levi RVT Interpreting Physician: Russell Blankenship MD -- Location: [facility] -- Indications: Stroke, MRA neck inconclusive. -- [...] supine position. Images were obtained using a [employer] vascular ultrasound machine. -- Findings Carotid/vertebral arteries: [...] signed by Russell Blankenship MD 03/04/2022 11:59 [employer] Work Phone: Radiology Study observation (narrative) [employer] Work Phone: CAROTID BILATERALOrdered By: Russell Blankenship on 03-04-2022 [employer] Work Phone: VL Carotid Duplex Ultrasound Completeon 03-04-2022 VL Carotid Duplex Ultrasound Complete Patient Name: BRADLEY MATOS Ultrasound ACCESSION EXAM DATE/TIME PROCEDURE ORDERING PROVIDER [id number] 03/04/2022 11:24 EDT VL Carotid Duplex [id number] -NIDA HOLLIDAY Ultrasound Complete CPT code 64838 Reason For Exam ( Carotid Duplex Ultrasound Complete) stroke; MRA neck inconclusive Report [facility] -- Carotid Duplex Report Patient Chapin : 1965 Study 03/04/2022 Name: Bradley Schwartz (56yrs) Date: Patient Age: 56 Account: [id number] ID: Gender: F Loc: 1322 BP: Ordering Physician: Nida Holliday Pourer Buggy Ladle: Britney Levi RVT Interpreting Physician: Russell Blankenship MD -- Location: [facility] -- Indications: Stroke, MRA neck inconclusive. -- [...] Images were obtained using a Ultrasound Report [employer] vascular ultrasound machine. -- Findings Carotid/vertebral arteries: [...] BLANKENSHIP Signed Date (more content not included)... [facility] VL LOWER EXTREMITY BILATERAL VENOUS DUPLEXon 03-04-2022 Radiology Study observation (narrative) [employer] Work Phone: VL Venous Duplex US Lower Ex t Bilateralon 03-04-2022 VL Venous Duplex US Lower Ext Bilateral Patient Name: BRADLEY MATOS Ultrasound ACCESSION EXAM DATE/TIME PROCEDURE ORDERING PROVIDER [id number] 03/04/2022 17:00 EDT VL Venous Duplex US GERARDO LUCAS, HANNAH Cody Lower Ext Bilateral CPT code 75443 Reason For Exam (VL Venous Duplex US Lower Ext Bilateral) swelling Report [facility] -- Lower Extremity Venous Duplex Report Patient Chapin, : 1965 Study 03/04/2022 Name: Bradley Schwartz (56yrs) Date: Patient [id number] Age: 56 Account: [id number] ID: Gender: F Loc: 1322 BP: Ordering Physician: Hannah Lucas Pourer Buggy Ladle: Nida Mann [place] Interpreting Physician: Russell Blankenship MD -- Location: [facility] -- Indications: Edema right entire leg. Edema [...] supine position. Images were obtained using a [employer] vascular ultrasound machine. The study was technically [...] +--- ---- (more content not included)... Normal [facility] Basic Metabolic Panelon 06-2 Anion gap [Moles/Vol] 6 mmol/L Normal 3-13 [facility] Comment on above: Performed By: #### H HUGO ALEX3M ####[place] [facility] [address] [place] [address] Calcium [Mass/Vol] 8.8 mg/dL Normal 8.4-10.4 [facility] Comment on above: Performed By: #### H ABI BMP3M ####[facility] [id number] [place] [address] CO2 [Moles/Vol] 27 mmol/L Normal 22-30 [facility] Comment on above: Performed By: #### H HUGO ALEX3Rigoberto ####[facility] [place], [place] Glucose [Mass/Vol] 112 mg/dL High 70-100 [facility] Comment on above: Performed By: #### H HUGO ALEX3M ####[address] [place], [place] Urea nitrogen [Mass/Vol] 13 mg/dL Normal 9-20 [facility] Comment on above: Performed By: #### H HUGO ALEX3M ####[address] [place], [place] Creatinine [Mass/Vol] 0.71 mg/dL Normal 0.52-1.25 [facility] Comment on above: Performed By: #### H HUGO ALEX3M ####[address] [place], [place] eGFR OTHER > 90.0 Normal >60 [facility] Comment on above: Result Comment: KDIG O [...] secretion. Performed By: #### H HUGO ALEX3M ####[address] [place], [place] GFR/1.73 sq M.predicted among blacks MDRD (S/P/Bld) [Vol rate/Area] mL/min/{1.73_m2} Normal >60 [facility] Comment on above: Performed By: #### H ABI BMP3M ####[facility] [place] [address] Potassium [Moles/Vol] 3.7 mmol/L Normal 3.5-5.1 [facility] Comment on above: Performed By: #### H ABI BMP3M ####[facility] [place] [address] Sodium [Moles/Vol] 135 mmol/L Normal 135-145 [facility] Comment on above: Performed By: #### H ABI BMP3M ####[facility] [place] [address] Chloride [Moles/Vol] 101 mmol/L Normal 98-107 [facility] Comment on above: Performed By: #### H ABI BMP3M ####[address] [place] [address] Basic Metabolic Panel w/ Ref deep to [facility] 03-03-2022 Anion gap [Moles/Vol] 6 mmol/L 3 - 13 mmol/L [facility] Calcium [Mass/Vol] 8.8 mg/dL 8.4 - 10. 4 mg/dL [facility] Chloride [Moles/Vol] 101 mmol/L 98 - 10 7 mmol/L [facility] CO2 [Moles/Vol] 27 mmol/L 22 - 30 mmol/L [facility] Creatinine [Mass/Vol] 0.71 mg/dL 0.52 - 1.25 mg/dL [facility] EGFR IF NonAfrican Swiss >90.0 >60 mL/min [facility] Comment on above: KDIGO guidelines pro [...] - 20 mg/dL [facility] Test Performed by [id number] [place] [address] LAB [facility] CBCon 03-03-2022 Hematocrit (Bld) [Volume fraction] 36.2 % 35.0 - 47.0 % [facility] Hemoglobin (Bld) [Mass/Vol] 12.0 g/dL 11.7 - 16.0 g/dL [facility] Interpretation and review of laboratory results Abnormal [...] - 10.7 10*3/uL [facility] Test Performed by [facility], [address] [place] [address] [facility] Hemogramon 03-03-2022 Erythrocyte distribution width (RBC) [Ratio] 17.0 % High 11.5-14.5 [facility] Comment on above: Performed By: #### H HUGO ALEX3M ####[address] [place], [place] Hematocrit (Bld) [Volume fraction] 36.2 % Normal 35.0-47.0 [facility] Comment on above: Performed By: #### H HUGO ALEX3M ####[address] [place], [place] Hemoglobin (Bld) [Mass/Vol] 12.0 g/dL Normal 11.7-16.0 [facility] Comment on above: Performed By: #### HUGO PARIS3Rigoberto ####[address] MCH (RBC) [Entitic mass] 28.9 pg Normal 26.0-34.0 [facility] Comment on above: Performed By: #### HUGO PARIS3M ####[address] [place] MCHC 33.1 % Normal 32.0-36.0 [facility] Comment on above: Performed By: #### HUGO PARIS3Rigoberto ####[address] [place], [place] MCV (RBC) [Entitic vol] 87.6 fL Normal 79.0-98.0 [facility] Comment on above: Performed By: #### HUGO PARIS3M ####[address] Platelet mean volume (Bld) [Entitic vol] 8.2 fL Normal 7.4-12.4 [facility] Comment on above: Result Comment: MPV is a calculated measurement using platelet volume ratio. Performed By: #### HUGO PAIRS3M ####[facility] [place] [address] Platelets (Bld) [#/Vol] 262 10*3/uL Normal 140-440 [facility] Comment on above: Performed By: #### H ABI BMP3M ####[facility] [id number] [place] [address] RBC (Bld) [#/Vol] 4.13 10*6/uL Normal 3.80-5.20 [facility] Comment on above: Performed By: #### H ABI BMP3M ####[facility] [id number] [place] [address] WBC (Bld) [#/Vol] 7.5 10*3/uL Normal 3.6-10.7 [facility] Comment on above: Performed By: #### H ABI BMP3M ####[facility] [id number] [place] [address] MRA Head w/o Contraston 02-07 MRA Head w/o Contrast [facility]: [id number] ACCESSION EXAM DATE/TIME PROCEDURE ORDERING PROVIDER [id number] 03/03/2022 08:43 EDT MRA Head w/o Contrast MD CEJA STEPHEN JOHN CPT code 35704 Reason For Exam (MRA Head w/o Contrast) [...] Transcribed Date and Time: 03/03/2022 9:28 Normal [facility] MRA head without contrast (R EVIEW IMAGING OBTAIN IN THE LAST 2 yrs, to determine indication )on 03-03-2022 [facility]: [id number] Magnetic Resonance Imaging ACCESSION EXAM DATE/TIME PROCEDURE ORDERING PROVIDER [id number] 03/03/2022 08:43 EDT MRA Head w/o Contrast MD CEJA STEPHEN JOHN CPT code 18219 Reason For Exam (MRA Head w/o Contrast) [...] JEFFREY Transcribed Date and Time: 03/03/2022 9:28 [facility] Andreas Gamboa MD - 03/03/2022 Patient Name: BRADLEY MATOS Magnetic Resonance Imaging ACCESSION EXAM DATE/TIME PROCEDURE ORDERING PROVIDER [id number] 03/03/2022 08:43 EDT MRA Head w/o Contrast MD CEJA STEPHEN JOHN CPT code 02891 Reason For Exam (MRA Head w/o Contrast) [...] + w/o Contrast Patient Name: BRADLEY MATOS [facility]#: [id number] Magnetic Resonance Imaging ACCESSION EXAM DATE/TIME PROCEDURE ORDERING PROVIDER [id number] 03/03/2022 08:43 EDT MRI Brain w/ + w/o MD CEJA STEPHEN Contrast JOHN CPT code 47149 Reason For Exam (MRI Brain w/ + [...] Transcribed Date and Time: 03/03/2022 9:28 Normal [facility] MRI brain with and without c ontrast (REVIEW IMAGING RECORDS IN THE LAST 2 YRS to determine INDICATION prior to oder )on 03-03-2022 [facility]: [id number] Resonance Imaging ACCESSION EXAM DATE/TIME PROCEDURE ORDERING PROVIDER [id number] 03/03/2022 08:43 EDT MRI Brain w/ + w/o MD CEJA STEPHEN Contrast JOHN CPT code 64429 Reason For Exam (MRI Brain w/ + [...] JEFFREY Transcribed Date and Time: 03/03/2022 9:28 [facility] Andreas Gamboa MD - 03/03/2022 Patient Name: BRADLEY MATOS Magnetic Resonance Imaging ACCESSION EXAM DATE/TIME PROCEDURE ORDERING PROVIDER [id number] 03/03/2022 08:43 EDT MRI Brain w/ + w/o MD CEJA STEPHEN Contrast RUSSELL CPT code 15455 Reason For Exam (MRI Brain w/ + [...] JEFFREY Transcribed Date and Time: 03/03/2022 9:28 [facility] Work Phone: [facility] Work Phone: Add On Lab Teston 03-02-2022 Add On Rejected [facility] Comment on above: No specimen availabl e for addon. Test Performed by [address] LAB [facility] Add On Accepted [facility] Comment on above: Specimen available & acceptable for analysis. Test Performed by [address] LAB [facility] Add on test from HISon 03-02 Add on test from HIS Rejected Normal [facility] Comment on above: Result Comment: No s pecimen available for addon. Performed By: #### A DDON #### [address] [place] Add on test from HIS Accepted Normal [facility] Comment on above: Result Comment: Spec imen available & acceptable for analysis. Performed By: #### A DDON ####[facility] [place], [place] Basic Metabolic Panelon 06-2 -2021 Calcium [Mass/Vol] 8.9 mg/dL Normal 8.4-10.4 [facility] Comment on above: Performed By: #### H EMOG, BMP3M, FOLT3, LIPD2, HA1C2, B12, TROPN, MG3, TSH5 #### [facility] [address] [place], [place] Anion gap [Moles/Vol] 7 mmol/L Normal 3-13 [facility] Comment on above: Performed By: #### H EMOG, BMP3M, FOLT3, LIPD2, HA1C2, B12, TROPN, MG3, TSH5 #### [facility] [address] [place], [place] CO2 [Moles/Vol] 28 mmol/L Normal 22-30 [facility] Comment on above: Performed By: #### H EMOG, BMP3M, FOLT3, LIPD2, HA1C2, B12, TROPN, MG3, TSH5 #### [address] [place], [place] Creatinine [Mass/Vol] 0.86 mg/dL Normal 0.52-1.25 [facility] Comment on above: Performed By: #### H EMOG, BMP3M, FOLT3, LIPD2, HA1C2, B12, TROPN, MG3, TSH5 #### [facility] [address] [place], [place] GFR/1.73 sq M.predicted among blacks MDRD (S/P/Bld) [Vol rate/Area] 88.2 mL/min/{1.73_m2} Normal >60 [facility] Comment on above: Performed By: #### H EMOG, BMP3M, FOLT3, LIPD2, HA1C2, B12, TROPN, MG3, TSH5 #### [address] [address] GFR/1.73 sq M.predicted among non-blacks MDRD (S/P/Bld) [Vol rate/Area] 76.1 mL/min/{1.73_m2} Normal >60 [facility] Comment on above: Result Comment: KDIG [...] LIPD2, HA1C2, B12, TROPN, MG3, TSH5 #### [address] [place] [address] Glucose [Mass/Vol] 145 mg/dL High 70-100 [facility] Comment on above: Performed By: #### H EMOG, BMP3M, FOLT3, LIPD2, HA1C2, B12, TROPN, MG3, TSH5 #### [address] [place] [address] Urea nitrogen [Mass/Vol] 11 mg/dL Normal 9-20 [facility] Comment on above: Performed By: #### H EMOG, BMP3M, FOLT3, LIPD2, HA1C2, B12, TROPN, MG3, TSH5 #### [address] [address] Chloride [Moles/Vol] 102 mmol/L Normal 98-107 [facility] Comment on above: Performed By: #### H EMOG, BMP3M, FOLT3, LIPD2, HA1C2, B12, TROPN, MG3, TSH5 #### [address] Potassium [Moles/Vol] 3.5 mmol/L Normal 3.5-5.1 [facility] Comment on above: Performed By: #### H EMOG, BMP3M, FOLT3, LIPD2, HA1C2, B12, TROPN, MG3, TSH5 #### [address] Sodium [Moles/Vol] 137 mmol/L Normal 135-145 [facility] Comment on above: Performed By: #### H EMOG, BMP3M, FOLT3, LIPD2, HA1C2, B12, TROPN, MG3, TSH5 #### [address] Basic Metabolic Panel w/ Ref deep to [facility] 03-02-2022 Anion gap [Moles/Vol] 7 mmol/L 3 - 13 mmol/L [facility] Calcium [Mass/Vol] 8.9 mg/dL 8.4 - 10. 4 mg/dL [facility] Chloride [Moles/Vol] 102 mmol/L 98 - 10 7 mmol/L [facility] CO2 [Moles/Vol] 28 mmol/L 22 - 30 mmol/L [facility] Creatinine [Mass/Vol] 0.86 mg/dL 0.52 - 1.25 mg/dL [facility] EGFR IF NonAfrican Swiss 76.1 mL/min >60 [facility] Comment on above: KDIGO guidelines pro [...] [Mass/Vol] 11 mg/dL 9 - 20 mg/dL [facility] CBCon 03-02-2022 Hematocrit (Bld) [Volume fraction] 37.0 [...] - 10.7 10*3/uL [facility] Test Performed by [facility], [address] [place] [id number] [place] [address] LAB [facility] ECHO Complete 2D W Doppler W Coloron 03-02-2022 TRANSTHORACIC ECHOCARDIOGRAM PATIENT: Bradley Matos STUDY DATE: 03/02/2022 A FIN#: : 1965 AGE: 56 HT/WT: 167.6 cm (66 147.4 kg (324.3 in) lb) GENDER: F BP: 155 / 67 LOCATION: [facility] PATIENT Observation main STATUS: *READING PHYSICIAN: * Cliff Mcclain *BEET FLUMER: * Jackie Quiros -- INDICATIONS: Stroke. -- [...] LV E/e', medial (more content not included)... [facility] CARDIOLOGY Cliff Mcclain MD - 03/04/2022 TRANSTHORACIC ECHOCARDIOGRAM PATIENT: Bradley Matos STUDY DATE: 03/02/2022 A FIN#: : 1965 AGE: 56 HT/WT: 167.6 cm (66 147.4 kg (324.3 in) lb) GENDER: F BP: 155 / 67 LOCATION: [facility] PATIENT Observation main STATUS: *READING PHYSICIAN: * Cliff Mcclain *BEET FLUMER: * Jackie Quiros -- INDICATIONS: Stroke. -- [...] ratio, peak 0.8 (more content not included)... [employer] Phone: ECHO Complete 2D W Doppler W ColorOrdered By: Cliff Mcclain on 03-02-2022 [employer] Phone: Echo Complete w/wo Contrasto n 03-02-2022 Echo Complete w/wo Contrast Patient Name: BRADLEY MATOS Ultrasound ACCESSION EXAM DATE/TIME PROCEDURE ORDERING PROVIDER [id number] 03/02/2022 15:24 EDT Echo Complete w/wo MD MARCIAL, RIKKI OWEN Reason For Exam (Echo Complete w/wo Contrast) stroke Report TRANSTHORACIC ECHOCARDIOGRAM PATIENT: Bradley Matos STUDY DATE: 03/02/2022 A FIN#: : 1965 AGE: 56 HT/WT: 167.6 cm (66 147.4 kg (324.3 in) lb) GENDER: F BP: 155 / 67 LOCATION: [employer] [facility] PATIENT Observation main STATUS: *READING PHYSICIAN: * Cliff Mcclain *BEET FLUMER: * Jackie Quiros -- INDICATIONS: Stroke. -- [...] --------- Aort (more content not included)... Normal [facility] Folateon 03-02-2022 Folate 7.1 ng/mL Normal [facility] Comment on above: Result Comment: >2.8 Performed By: #### H EMOG, BMP3M, FOLT3, LIPD2, HA1C2, B12, TROPN, MG3, TSH5 ####[facility] [id number] [place] [address] Folate 7.1 ng/mL [facility] Comment on above: >2.8 Test Performed by [facility], [address] [place], [place] [id number] [place] [address] Hemoglobin A1Con 03-02-2022 Glucose [Mass/Vol] 120 mg/dL Normal [facility] Comment on above: Performed By: #### H EMOG, BMP3M, FOLT3, LIPD2, HA1C2, B12, TROPN, MG3, TSH5 ####[address] [place], [place] HbA1c (Bld) [Mass fraction] 5.8 % Abnormal [facility] Comment on above: Result Comment: Norm al less than 5.7% Prediabetes 5.7% to 6.4% Diabetes 6.5% or higher --HgbA1C levels may not be accurate in patients who have renal disease, received recent blood transfusions, are anemic, or who have dyshemoglobinemia. Performed By: #### H EMOG, BMP3M, FOLT3, LIPD2, HA1C2, B12, TROPN, MG3, TSH5 ####[address] [place], [place] Hemoglobin A1con 03-02-2022 HbA1c (Bld) [Mass fraction] 5.8 % Abnormal [facility] Comment on above: Normal less than 5.7 % Prediabetes 5.7% to 6.4% Diabetes 6.5% or higher --HgbA1C levels may not be accurate in patients who have renal disease, received recent blood transfusions, are anemic, or who have dyshemoglobinemia. Interpretation and review of laboratory results Abnormal [facility] Magnesium [Mass/Vol] 120 mg/dL [facility] A Test Performed by [address] LAB [facility] Hemogramon 03-02-2022 Erythrocyte distribution width (RBC) [Ratio] 17.1 % High 11.5-14.5 [facility] Comment on above: Performed By: #### H EMOG, BMP3M, FOLT3, LIPD2, HA1C2, B12, TROPN, MG3, TSH5 #### [address] Hematocrit (Bld) [Volume fraction] 37.0 % Normal 35.0-47.0 [facility] Comment on above: Performed By: #### H EMOG, BMP3M, FOLT3, LIPD2, HA1C2, B12, TROPN, MG3, TSH5 #### [address] Hemoglobin (Bld) [Mass/Vol] 12.1 g/dL Normal 11.7-16.0 [facility] Comment on above: Performed By: #### H EMOG, BMP3M, FOLT3, LIPD2, HA1C2, B12, TROPN, MG3, TSH5 #### [address] MCH (RBC) [Entitic mass] 28.9 pg Normal 26.0-34.0 [facility] Comment on above: Performed By: #### H EMOG, BMP3M, FOLT3, LIPD2, HA1C2, B12, TROPN, MG3, TSH5 #### [address] MCHC 32.6 % Normal 32.0-36.0 [facility] Comment on above: Performed By: #### H EMOG, BMP3M, FOLT3, LIPD2, HA1C2, B12, TROPN, MG3, TSH5 #### [address] MCV (RBC) [Entitic vol] 88.6 fL Normal 79.0-98.0 [facility] Comment on above: Performed By: #### H EMOG, BMP3M, FOLT3, LIPD2, HA1C2, B12, TROPN, MG3, TSH5 #### [address] Platelet mean volume (Bld) [Entitic vol] 7.9 fL Normal 7.4-12.4 [facility] Comment on above: Result Comment: MPV is a calculated measurement using platelet volume ratio. Performed By: #### H EMOG, BMP3M, FOLT3, LIPD2, HA1C2, B12, TROPN, MG3, TSH5 #### [address] Platelets (Bld) [#/Vol] 269 10*3/uL Normal 140-440 [facility] Comment on above: Performed By: #### H EMOG, BMP3M, FOLT3, LIPD2, HA1C2, B12, TROPN, MG3, TSH5 #### [address] [address] [place], [place] RBC (Bld) [#/Vol] 4.18 10*6/uL Normal 3.80-5.20 [facility] Comment on above: Performed By: #### H EMOG, BMP3M, FOLT3, LIPD2, HA1C2, B12, TROPN, MG3, TSH5 #### [address] [address] [place], [place] WBC (Bld) [#/Vol] 9.4 10*3/uL Normal 3.6-10.7 [facility] Comment on above: Performed By: #### H EMOG, BMP3M, FOLT3, LIPD2, HA1C2, B12, TROPN, MG3, TSH5 #### [address] Lipid Panelon 03-02-2022 Chol/HDL 8 Normal [facility] Comment on above: Result Comment: Ref Range: < 3 Low Risk for CHD 3-6 Mod Risk for CHD > 6 High Risk for CHD Performed By: #### H EMOG, BMP3M, FOLT3, LIPD2, HA1C2, B12, TROPN, MG3, TSH5 #### [address] [address] [place], [place] Cholesterol in HDL [Mass/Vol] 30 mg/dL Low 40-60 [facility] Comment on above: Performed By: #### H EMOG, BMP3M, FOLT3, LIPD2, HA1C2, B12, TROPN, MG3, TSH5 #### [address] [address] [place], [place] Low Density Lipoprotein 174 mg/dL Abnormal <100 [facility] Comment on above: Performed By: #### H EMOG, BMP3M, FOLT3, LIPD2, HA1C2, B12, TROPN, MG3, TSH5 #### [address] Triglyceride [Mass/Vol] 176 mg/dL Abnormal <150 [facility] Comment on above: Performed By: #### H EMOG, BMP3M, FOLT3, LIPD2, HA1C2, B12, TROPN, MG3, TSH5 #### [address] [address] Cholesterol [Mass/Vol] 239 mg/dL Abnormal < 200 [facility] Comment on above: Performed By: #### H EMOG, BMP3M, FOLT3, LIPD2, HA1C2, B12, TROPN, MG3, TSH5 #### [address] [address] [place] [address] Lipid panel - fastingon - Cholesterol [Mass/Vol] 239 mg/dL Abnormal <200 [facility] Cholesterol in HDL [Mass/Vol] 30 mg/dL Low 40 - 60 mg/dL [facility] Cholesterol in LDL [Mass/Vol] 174 mg/dL Abnormal <100 [facility] Cholesterol.total/Willow sterol in HDL [Mass ratio] 8 {ratio} [facility] Comment on above: Ref Range: < 3 Low Risk for CHD 3-6 Mod Risk for CHD > 6 High Risk for CHD Triglyceride [Mass/Vol] 176 mg/dL Abnormal <150 [facility] Magnesiumon 03-02-2022 Magnesium [Mass/Vol] 2.0 mg/dL Normal 1.6-2.3 [facility] Comment on above: Performed By: #### H EMOG, BMP3M, FOLT3, LIPD2, HA1C2, B12, TROPN, MG3, TSH5 ####[facility] [place] [address] Magnesium [Mass/Vol] 2.0 mg/dL 1.6 - 2 .3 mg/dL [facility] Test Performed by [address] [facility] No Panel Informationon 03-02 Interpretation and review of laboratory results Abnormal [facility] Test Performed by [id number] [place] [address] LAB [facility] Radiology Study observation (narrative) [facility] Work Phone: TSHon 03-02-2022 TSH Qn 3.303 u[IU]/mL 0.465 - 4.680 u[IU]/mL [facility] Test Performed by [facility], [address] [place] [id number] [place] [address] LAB [facility] Thyroid Stim. Hormoneon 02-07 Thyroid Stim. Hormone 3.303 u[IU]/mL Normal 0.465-4.68 0 [facility] Comment on above: Performed By: #### H EMOG, BMP3M, FOLT3, LIPD2, HA1C2, B12, TROPN, MG3, TSH5 ####[facility] [id number] [place] [address] Troponinon 03-02-2022 Troponin I.cardiac [Mass/Vol] 0.014 ng/mL 0.000 - 0.034 ng/mL [facility] Comment on above: . Test Performed by [facility], [address] [place] [id number] [place] [address] LAB [facility] Troponin Ion 03-02-2022 Troponin I.cardiac [Mass/Vol] 0.014 ng/mL Normal 0.000-0.034 [facility] Comment on above: Result Comment: . Performed By: #### H EMOG, BMP3M, FOLT3, LIPD2, HA1C2, B12, TROPN, MG3, TSH5 ####[address] [place] [address] Vitamin B12on 03-02-2022 Cobalamin (Vitamin B12) [Mass/Vol] 268 pg/mL Normal 239-931 [facility] Comment on above: Performed By: #### H EMOG, BMP3M, FOLT3, LIPD2, HA1C2, B12, TROPN, MG3, TSH5 ####[facility] [id number] [place] [address] Cobalamin (Vitamin B12) [Mass/Vol] 268 pg/mL 239 - 931 pg/mL [facility] Test Performed by [facility], [address] [place] [id number] [place] [address] LAB [facility] APTTon 03-01-2022 aPTT Coag (Bld) [Time] 27.6 s Normal 20.0-30.5 [facility] Comment on above: Result Comment: NOTE : The therapeutic time for Heparin anticoagulation, based on Xa activity inhibition, is an APTT of 46-80 seconds. Performed By: #### C MP3M, HEMDF, TROPN, PT, APTT #### [facility] [address] [place] [address] aPTT Coag (Bld) [Time] 27.6 s 20.0 - 30.5 s [facility] Comment on above: NOTE: The therapeuti c [...] [Mass/Vol] 12.7 g/dL 11.7 - 16.0 g/dL [facility] Interpretation and review of laboratory results Abnormal [...] - 10.7 10*3/uL [facility] Test Performed by [facility], [address] [place] [address]. , [address] HEAD WO CONTRASTon 2021 [facility]: [id number] Computed Tomography ACCESSION EXAM DATE/TIME PROCEDURE ORDERING PROVIDER [id number] 03/01/2022 20:[address] Head or Brain w/o Chema LEY CPT code 09196 Reason For Exam (CT Head or Brain [...] JEFFREY Transcribed Date and Time: 03/01/2022 9:40 [facility] Andreas Gamboa MD - 03/01/2022 [id number] Computed Tomography ACCESSION EXAM DATE/TIME PROCEDURE ORDERING PROVIDER [id number] 03/01/2022 20:[address] Head or Brain w/o [id number] [place], Contrast [facility] CPT code 55819 Reason For Exam (CT Head or Brain [...] JEFFREY Transcribed Date and Time: 03/01/2022 9:40 [facility] Work Phone: Radiology Study observation (narrative) [facility] Work Phone: CT HEAD WO CONTRASTOrdered B y: Andreas Gamboa on 03-01-2022 [employer] Work Phone: CT Head or Brain w/o Contras ton 03-01-2022 CT Head or Brain w/o Contrast Patient Name: BRADLEY MATOS Computed Tomography ACCESSION EXAM DATE/TIME PROCEDURE ORDERING PROVIDER [id number] 03/01/2022 20:[address] Head or Brain w/o [id number] -[place], Contrast [facility] CPT code 25008 Reason For Exam (CT Head or Brain [...] Transcribed Date and Time: 03/01/2022 9:40 Normal [facility] Comp Panel with Mg Reflexon 03-01-2022 ALP [Catalytic activity/Vol] 76 U/L Normal 38-126 [facility] Comment on above: Performed By: #### C MP3M, HEMDF, TROPN, PT, APTT #### [facility] [address] [place] [address] ALT [Catalytic activity/Vol] 19 U/L Normal 0-34 [facility] Comment on above: Result Comment: The ALT test is performed by an updated assay method. Please note that the reference intervals have been changed and are now sex specific. Performed By: #### C MP3M, HEMDF, TROPN, PT, APTT #### [facility] [address] [place] [address] Anion gap [Moles/Vol] 8 mmol/L Normal 3-13 [facility] Comment on above: Performed By: #### C MP3M, HEMDF, TROPN, PT, APTT #### [facility] [address] [place] [address] AST [Catalytic activity/Vol] 34 U/L Normal 15-46 [facility] Comment on above: Performed By: #### C MP3M, HEMDF, TROPN, PT, APTT #### [facility] [address] [place] [address] Calcium [Mass/Vol] 9.1 mg/dL Normal 8.4-10.4 [facility] Comment on above: Performed By: #### C MP3M, HEMDF, TROPN, PT, APTT #### [facility] [address] [place] [address] CO2 [Moles/Vol] 27 mmol/L Normal 22-30 [facility] Comment on above: Performed By: #### C MP3M, HEMDF, TROPN, PT, APTT #### [facility] [address] [place] [address] Glucose [Mass/Vol] 127 mg/dL High 70-100 [facility] Comment on above: Performed By: #### C MP3M, HEMDF, TROPN, PT, APTT #### [facility] [address] [place] [address] Protein [Mass/Vol] 8.3 g/dL High 6.3-8.2 [facility] Comment on above: Performed By: #### C MP3M, HEMDF, TROPN, PT, APTT #### [facility] [address] [place] [address] Urea nitrogen [Mass/Vol] 11 mg/dL Normal 9-20 [facility] Comment on above: Performed By: #### C MP3M, HEMDF, TROPN, PT, APTT #### [facility] [address] [place] [address] Bilirubin [Mass/Vol] 0.9 mg/dL Normal 0.2-1.3 [facility] Comment on above: Performed By: #### C MP3M, HEMDF, TROPN, PT, APTT #### [facility] [address] [place] [address] Creatinine [Mass/Vol] 0.72 mg/dL Normal 0.52-1.25 [facility] Comment on above: Performed By: #### C MP3M, HEMDF, TROPN, PT, APTT #### [facility] [address] [place] [address] eGFR OTHER > 90.0 Normal >60 [facility] Comment on above: Result Comment: KDIG O [...] C MP3M, HEMDF, TROPN, PT, APTT #### [facility] [address] [place] [address] GFR/1.73 sq M.predicted among blacks MDRD (S/P/Bld) [Vol rate/Area] mL/min/{1.73_m2} Normal >60 [facility] Comment on above: Performed By: #### C MP3M, HEMDF, TROPN, PT, APTT #### [facility] [address] [place] [address] Albumin [Mass/Vol] 4.3 g/dL Normal 3.5-5.0 [facility] Comment on above: Performed By: #### C MP3M, HEMDF, TROPN, PT, APTT #### [facility] [address] [place] [address] Chloride [Moles/Vol] 103 mmol/L Normal 98-107 [facility] Comment on above: Performed By: #### C MP3M, HEMDF, TROPN, PT, APTT #### [facility] [address] [place] [address] Potassium [Moles/Vol] 3.9 mmol/L Normal 3.5-5.1 [facility] Comment on above: Performed By: #### C MP3M, HEMDF, TROPN, PT, APTT #### [facility] [address] [place] [address] Sodium [Moles/Vol] 139 mmol/L Normal 135-145 [facility] Comment on above: Performed By: #### C MP3M, HEMDF, TROPN, PT, APTT #### [facility] [address] [place] [address] Complete Urinalysison 2021 Bacteria LM.HPF (Urine sed) [#/Area] Negative Normal Negative [facility] Comment on above: Result Comment: . Performed By: #### C UA2 #### [facility] [address] [place] [address] Mucous Threads Few Normal Negative [facility] Comment on above: Result Comment: . Performed By: #### C UA2 #### [facility] [address] [place] [address] RBC, Urine 0 - 2 Normal 0-2 [facility] Comment on above: Result Comment: . Performed By: #### C UA2 #### [facility] [address] [place] [address] Squamous Epithelial 0 - 2 Normal 3-5 [facility] Comment on above: Result Comment: . Performed By: #### C UA2 #### [facility] [address] [place] [address] VOLUME, URINE 12 ml Normal [facility] Comment on above: Result Comment: . Performed By: #### C UA2 #### [facility] [address] [place] [address] WBC, Urine 3 - 5 Normal 0-5 [facility] Comment on above: Result Comment: . Performed By: #### C UA2 #### [facility] [address] [place] [address] Appearance (U) Clear Normal Clear [facility] Comment on above: Result Comment: . Performed By: #### C UA2 #### [facility] [address] [place] [address] Bilirubin,Urine Negative Normal Negative [facility] Comment on above: Result Comment: . Performed By: #### C UA2 #### [facility] [address] [place] [address] Color (U) YELLOW Normal Lt. Yellow [facility] Comment on above: Result Comment: . Performed By: #### C UA2 #### [facility] [address] [place] [address] Glucose Ql (U) Normal Normal Normal (<70) [facility] Comment on above: Result Comment: . Performed By: #### C UA2 #### [facility] [address] [place] [address] Ketone,Urine Negative Normal Negative [facility] Comment on above: Result Comment: . Performed By: #### C UA2 #### [facility] [address] [place] [address] Leukocytes,Urine Negative Normal [facility] Comment on above: Result Comment: . Performed By: #### C UA2 #### [facility] [address] [place] [address] Nitrites,Urine Negative Normal Negative [facility] Comment on above: Result Comment: . Performed By: #### C UA2 #### [facility] [address] [place] [address] Occult Blood,Urine Negative Normal Negative [facility] Comment on above: Result Comment: . Performed By: #### C UA2 #### [facility] [address] [place] [address] pH,Urine 6.5 Normal 5.0-8.0 [facility] Comment on above: Result Comment: . Performed By: #### C UA2 #### [facility] [address] [place] [address] Protein (U) [Mass/Vol] 30 mg/dL Abnormal Negative [facility] Comment on above: Result Comment: . Performed By: #### C UA2 #### [facility] [address] [place] [address] Specific [place],Urine 1.023 Normal 1.005 - 1.030 [facility] Comment on above: Result Comment: . Performed By: #### C UA2 #### [facility] [address] [place] [address] Urobilinogen,Urine 2 mg/dL Abnormal Normal (0-1) [facility] Comment on above: Result Comment: . Performed By: #### C UA2 #### [facility] [address] [place] [address] Comprehensive Metabolic Pane l w/ Reflex to MGon 03-01-2022 Albumin [Mass/Vol] 4.3 g/dL 3.5 - 5.0 g/dL [facility] ALP (Bld) [Catalytic activity/Vol] 76 U/L 38 - 126 U/L [facility] ALT [Catalytic activity/Vol] 19 U/L 0 - 34 U/L [facility] Comment on above: The ALT test is [...] - 1.25 mg/dL [facility] EGFR IF NonAfrican Swiss >90.0 >60 mL/min [facility] Comment on above: KDIGO guidelines pro [...] - 20 mg/dL [facility] Test Performed by [facility], [facility] [address] , [place], [place] [address] [facility] EKG 12 Lead if not already d one by deborah 03-01-2022 [facility] Test Date: 2022-03-01 Pat Name: BRADLEY MATOS Department: EMERGENCY Room: 02 Gender: F 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: JORDYN : 1965 Requested By: VAHE STRICKLAND Order Number: [id number] Reading MD: Vahe Strickland Measurements Intervals [place] Rate: 90 P: 0 NC: 61 QRS: -24 QRSD: 96 T: 21 QT: 369 QTc: 453 Interpretive Statements Sinus rhythm Short NC interval Borderline left axis deviation Abnormal R-wave progression, late transition No previous ECG available for comparison Electronically Signed On 03-01-2022 20:04:29 EDT by Vahe Strickland [facility] CARD[facility] Vahe Strickland MD - 03/01/2022 [facility]: 2022-03-01 Pat Name: BRADLEY MATOS Department: EMERGENCY Room: 02 Gender: F 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: ChrisNette : 1965 Requested By: VAHE STRICKLAND Order Number: [id number] Reading MD: Vahe Strickland Measurements Intervals [place] Rate: 90 P: 0 NC: 61 QRS: -24 QRSD: 96 T: 21 QT: 369 QTc: 453 Interpretive Statements Sinus rhythm Short NC interval Borderline left axis deviation Abnormal R-wave progression, late transition No previous ECG available for comparison Electronically Signed On 03-01-2022 20:04:29 EDT by Vahe Strickland [facility] Work Phone: [employer] Work Phone: Glucose,Bedsideon 03-01-2022 Glucose [Mass/Vol] 113 mg/dL High 70-100 [facility] [employer] Comment on above: Result Comment: Test performed by glucose meter. Results may be 10%-15% lower than serum/plasma values. (CLIA ID [id number]) Performed By: #### B GLU #### [facility] [address] [place] [address] Hemogram w/ Autodiffon 03-01 Abs Baso Cnt 0.0 10*3/uL Normal 0.0-0.2 [facility] Comment on above: Performed By: #### C MP3M, HEMDF, TROPN, PT, APTT #### [facility] [address] [place] [address] Abs Neutrophile Cnt 6.9 10*3/uL Normal 1.8-7.0 [facility] Comment on above: Performed By: #### C MP3M, HEMDF, TROPN, PT, APTT #### [facility] [address] [place] [address] Basophils/100 WBC (Bld) 0.3 % Normal 0.0-2.0 [facility] Comment on above: Performed By: #### C MP3M, HEMDF, TROPN, PT, APTT #### [facility] [address] [place] [address] Eosinophils (Bld) [#/Vol] 0.1 10*3/uL Normal 0.0-0.5 [facility] Comment on above: Performed By: #### C MP3M, HEMDF, TROPN, PT, APTT #### [facility] [address] [place] [address] Eosinophils/100 WBC (Bld) 0.9 % Low 1.0-6.0 [facility] Comment on above: Performed By: #### C MP3M, HEMDF, TROPN, PT, APTT #### [facility] [address] [place] [address] Erythrocyte distribution width (RBC) [Ratio] 15.4 % High 11.5-14.5 [facility] Comment on above: Performed By: #### C MP3M, HEMDF, TROPN, PT, APTT #### [facility] [address] [place] [address] Granulocytes/100 WBC (Bld) 72.4 % Normal 40.0-80.0 [facility] Comment on above: Performed By: #### C MP3M, HEMDF, TROPN, PT, APTT #### [facility] [address] [place] [address] Hematocrit (Bld) [Volume fraction] 39.3 % Normal 35.0-47.0 [facility] Comment on above: Performed By: #### C MP3M, HEMDF, TROPN, PT, APTT #### [facility] [address] [place] [address] Hemoglobin (Bld) [Mass/Vol] 12.7 g/dL Normal 11.7-16.0 [facility] Comment on above: Performed By: #### C MP3M, HEMDF, TROPN, PT, APTT #### [facility] [address] [place] [address] Lymphocytes (Bld) [#/Vol] 1.9 10*3/uL Normal 1.0-4.3 [facility] Comment on above: Performed By: #### C MP3M, HEMDF, TROPN, PT, APTT #### [facility] [address] [place] [address] Lymphocytes/100 WBC (Bld) 20.1 % Normal 20.0-40.0 [facility] Comment on above: Performed By: #### C MP3M, HEMDF, TROPN, PT, APTT #### [facility] [address] [place] [address] MCH (RBC) [Entitic mass] 28.5 pg Normal 26.0-34.0 [facility] Comment on above: Performed By: #### C MP3M, HEMDF, TROPN, PT, APTT #### [facility] [address] [place] [address] MCHC 32.3 % Normal 32.0-36.0 [facility] Comment on above: Performed By: #### C MP3M, HEMDF, TROPN, PT, APTT #### [facility] [address] [place] [address] MCV (RBC) [Entitic vol] 88.3 fL Normal 79.0-98.0 [facility] Comment on above: Performed By: #### C MP3M, HEMDF, TROPN, PT, APTT #### [facility] [address] [place] [address] Monocytes (Bld) [#/Vol] 0.6 10*3/uL Normal 0.0-0.8 [facility] Comment on above: Performed By: #### C MP3M, HEMDF, TROPN, PT, APTT #### [facility] [address] [place] [address] Monocytes/100 WBC (Bld) 5.9 % Normal 2.0-10.0 [facility] Comment on above: Performed By: #### C MP3M, HEMDF, TROPN, PT, APTT #### [facility] [address] [place] [address] Platelet mean volume (Bld) [Entitic vol] 9.9 fL Normal 7.4-12.4 [facility] Comment on above: Result Comment: MPV is a calculated measurement using platelet volume ratio. Performed By: #### C MP3M, HEMDF, TROPN, PT, APTT #### [facility] [address] [place] [address] Platelets (Bld) [#/Vol] 294 10*3/uL Normal 140-440 [facility] Comment on above: Performed By: #### C MP3M, HEMDF, TROPN, PT, APTT #### [facility] [address] [place] [address] RBC (Bld) [#/Vol] 4.45 10*6/uL Normal 3.80-5.20 [facility] Comment on above: Performed By: #### C MP3M, HEMDF, TROPN, PT, APTT #### [facility] [address] [place] [address] WBC (Bld) [#/Vol] 9.6 10*3/uL Normal 3.6-10.7 [facility] Comment on above: Performed By: #### C MP3M, HEMDF, TROPN, PT, APTT #### [facility] [address] [place] [address] No Panel Informationon 03-01 Test Performed by [facility], [address] , [place], [place] [address] [place] [address] LAB [facility] POCT Glucoseon 03-01-2022 Glucose [Mass/Vol] 113 mg/dL High 70 - 100 mg/dL [facility] Comment on above: Test performed by gl ucose meter. Results may be 10%-15% lower than serum/plasma values. (CLIA ID [id number]) Interpretation and review of laboratory results Abnormal [facility] Test Performed by [facility], [address] , [place], [place] [address] [place] [address] LAB [facility] Glucose [Mass/Vol] 113 mg/dL [facility] Work Phone: Interpretation and review of laboratory results Normal [facility] Work Phone: QC OK? yes [facility] Work Phone: Prothrombin Timeon INR 1.0 Normal 0.9-1.1 [facility] Comment on above: Result Comment: Campbell mmended [...] C MP3M, HEMDF, TROPN, PT, APTT #### [facility] [address] [place] [address] PT Coag (PPP) [Time] 10.3 s Normal 9.0-12.0 [facility] Comment on above: Result Comment: . Performed By: #### C MP3M, HEMDF, TROPN, PT, APTT #### [facility] [address] [place] [address] Protime-INRon 03-01-2022 INR Coag (Bld) [Relative time] 1.0 {INR} [facility] Comment on above: Recommended Anticoag ulant [...] Comment on above: . Test Performed by [facility], [address] , [address] [facility] Troponin Ion 03-01-2022 Troponin I.cardiac [Mass/Vol] ng/mL Normal 0.000-0.034 [facility] Comment on above: Result Comment: . Performed By: #### C MP3M, HEMDF, TROPN, PT, APTT #### [facility] [address] [place] [address] Urinalysison 03-01-2022 Appearance (U) Clear Clear NA [...] Protein (U) [Mass/Vol] 30 mg/dL Abnormal Negative [facility] Comment on above: . RBC, UA 0-2 0 - 2 /[HPF] [facility] Comment on above: . Specific [place], Urine 1.023 S [facility] Comment on above: . Squam Epithel, UA 0-2 3 - 5 /[HPF] [facility] Comment on above: . Urobilinogen, Urine 2 mg/dL Abnormal Normal (0-1) [facility] Comment on above: . Volume 12 ml [facility] Comment on above: . WBC, UA 3-5 0 - 5 /[HPF] [facility] Comment on above: . Test Performed by [facility], [address] , [address] [facility] Chest PA/LATon 10-10-2021 CR Chest PA/LAT Patient Name: BRADLEY MATOS Diagnostic Radiology ACCESSION EXAM DATE/TIME PROCEDURE ORDERING PROVIDER [id number] 10/10/2021 15:35 EST CR Chest PA and LAT GARCIA ARGELIA CPT code 91546 Reason For Exam (CR Chest PA and [...] Transcribed Date and Time: 10/10/2021 4:06 Normal [facility] CR Knee 1 or 2 Views Bilater darrian 08-08-2021 CR Knee 1 or 2 Views Bilateral Patient Name: BRADLEY MATOS Diagnostic Radiology ACCESSION EXAM DATE/TIME PROCEDURE ORDERING PROVIDER [id number] 08/08/2021 15:13 EST CR Knee 1 or 2 Views MD OLIVER, MAXINE Tomas Bilateral CPT code 58076 Reason For Exam (CR Knee 1 or [...] Transcribed Date and Time: 08/09/2021 9:00 Normal [facility] CR Knee Standing Bilateralon 08-08-2021 CR Knee Standing Bilateral Patient Name: BRADLEY MATOS Diagnostic Radiology ACCESSION EXAM DATE/TIME PROCEDURE ORDERING PROVIDER [id number] 08/08/2021 15:13 EST CR Knee Standing AP MD OLIVER, MAXINE Tomas Bilateral CPT code 85937 Reason For Exam (CR Knee Standing AP [...] Transcribed Date and Time: 08/09/2021 9:00 Normal [facility] XR KNEE BILATERAL LIMITEDon 03-02-2020 Patient Name: BRADLEY MATOS ---Diagnostic Radiology--- Exam Date/Time 03/02/2020 10:40:00 EDT Exam CR Knee 1 or 2 Views Bilateral Ordering Physician MD GREGORY, LENCHO MONTANEZ Accession Number [id number] CPT4 Codes 40269 () Reason For Exam pain Report BILATERAL [...] R Transcribed Date and Time: 03/02/2020 10:56 [place], [place] [facility], [facility] Incoming Radiology Results From [facility] - 03/02/2020 10:56 AM EDT Patient Name: BRADLEY MATOS ---Diagnostic Radiology--- Exam Date/Time 03/02/2020 10:40:00 EDT Exam CR Knee 1 or 2 Views Bilateral Ordering Physician MD GREGORY, LENCHO MONTANEZ Accession Number [id number] CPT4 Codes 86973 () Reason For Exam pain Report BILATERAL [...] R Transcribed Date and Time: 03/02/2020 10:56 [facility], [employer] XR Knee Bilateral Standingon 03-02-2020 Patient Name: BRADLEY MATOS ---Diagnostic Radiology--- Exam Date/Time 03/02/2020 10:40:00 EDT Exam CR Knee Standing AP Bilateral Ordering Physician MD GREGORY, LENCHO MONTANEZ Accession Number [id number] CPT4 Codes 18236 () Reason For Exam pain Report BILATERAL [...] R Transcribed Date and Time: 03/02/2020 10:56 [place], [place] [facility] Incoming Radiology Results From [facility] - 03/02/2020 10:56 AM EDT Patient Name: BRADLEY MATOS ---Diagnostic Radiology--- Exam Date/Time 03/02/2020 10:40:00 EDT Exam CR Knee Standing AP Bilateral Ordering Physician MD GREGORY, LENCHO MONTANEZ Accession Number [id number] CPT4 Codes 76222 () Reason For Exam pain Report BILATERAL [...] R Transcribed Date and Time: 03/02/2020 10:56 [place], [place] CT ABDOMEN AND PELVIS W/O CO NTRASTon 03-12-2018 CT ABDOMEN AND PELVIS W/O CONTRAST Performed at [facility] APPROVED BY: BASHIR RODRIGUEZ DO EXAMINATION: [...] control (AEC) COMPARISON: CT abdomen/pelvis, 10/09/2011 FINDINGS: 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 Lower Thorax: Bibasilar atelectasis [...] 5. Additional findings as detailed above. Normal [facility] Comprehensive Panelon 2017 Albumin 3.2 g/dL Low 3.4-5.0 [facility] Comment on above: Performed By: #### L P14 ####[address] [address] Alkaline phosphatase (ALP) 68 U/L Normal 46-116 [facility] Comment on above: Performed By: #### L P14 ####[address] [address] ALT-SGPT Blood 16 U/L Normal 14-63 [facility] Comment on above: Performed By: #### L P14 ####[address] [address] Anion gap 7 mmol/L Low 8-20 [facility] Comment on above: Performed By: #### L P14 ####[address] [address] AST-SGOT Blood 30 U/L Normal 15-37 [facility] Comment on above: Performed By: #### L P14 ####[address] [address] Bilirubin Ql (U) 0.8 mg/dL Normal 0.2-1.0 [facility] Comment on above: Performed By: #### L P14 ####[address] [address] BUN (urea nitrogen) 9 mg/dL Normal 7-25 [facility] Comment on above: Performed By: #### L P14 ####[address] [address] BUN/Creatinine Ratio 12 mg/mg Normal 10-20 [facility] Comment on above: Performed By: #### L P14 ####[address] [address] Calcium 8.8 mg/dL Normal 8.5-10.1 [facility] Comment on above: Performed By: #### L P14 ####[address] [place] [address] Chloride 106 mmol/L Normal 98-107 [facility] Comment on above: Performed By: #### L P14 ####[facility] [place] [address] CO2 29 mmol/L Normal 21-32 [facility] Comment on above: Performed By: #### L P14 ####[place] [address] Creatinine 0.73 mg/dL Normal 0.51-0.95 [facility] Comment on above: Performed By: #### L P14 ####[place] [address] Glucose mass conc 111 mg/dL High 70-99 [facility] Comment on above: Performed By: #### L P14 ####[place] [address] Potassium molar conc 4.1 mmol/L Normal 3.5-5.1 [facility] Comment on above: Performed By: #### L P14 ####[place] [address] Protein 7.8 g/dL Normal 6.4-8.2 [facility] Comment on above: Performed By: #### L P14 ####[place] [address] Sodium 138 mmol/L Normal 136-145 [facility] Comment on above: Performed By: #### L P14 ####[place] [address] Hemogram/Diffon 03-12-2018 Abs. Baso 0.02 thou/cmm Normal 0.00-0.08 [facility] Comment on above: Performed By: #### L CBCD ####[place] [address] Abs. [place] 0.57 thou/cmm Normal 0.20-1.00 [facility] Comment on above: Performed By: #### L CBCD ####[place] [address] Abs. Neut (ANC) 6.20 thou/cmm High 3.00-5.67 [facility] Comment on above: Performed By: #### L CBCD ####[address] [address] Basophils/100 WBC Auto (Bld) 0.2 % Normal [facility] Comment on above: Performed By: #### L CBCD ####[address] [address] Eosinophils 0.11 thou/cmm Normal 0.00-0.41 [facility] Comment on above: Performed By: #### L CBCD ####[address] [address] Eosinophils/100 leukocytes 1.3 % Normal [facility] Comment on above: Performed By: #### L CBCD ####[address] [address] Erythrocyte distribution width Auto Ratio (RBC) 14.8 % Normal 11.5-15.9 [facility] Comment on above: Performed By: #### L CBCD ####[address] [address] Erythrocytes (RBC) 4.06 mil/cmm Low 4.20-5.40 [facility] Comment on above: Performed By: #### L CBCD ####[address] [address] Hematocrit (HCT) 38.2 % Normal 37.0-47.0 [facility] Comment on above: Performed By: #### L CBCD ####[address] [address] Hemoglobin mass conc (Bld) 11.9 g/dL Low 12.0-16.0 [facility] Comment on above: Performed By: #### L CBCD ####[address] [address] Lymphocytes 1.80 thou/cmm Normal 1.50-3.65 [facility] Comment on above: Performed By: #### L CBCD ####[address] [address] Lymphocytes/100 leukocytes 20.7 % Normal [facility] Comment on above: Performed By: #### L CBCD ####[facility] [place], [place] [address] MCH 29.3 pg Normal 27.0-31.0 [facility] Comment on above: Performed By: #### L CBCD ####[address] [address] MCHC mass conc (RBC) 31.2 % Low 32.0-36.0 [facility] Comment on above: Performed By: #### L CBCD ####[address] [address] MCV 94.1 fL Normal 81.0-99.0 [facility] Comment on above: Performed By: #### L CBCD ####[address] [address] Monocytes/100 leukocytes 6.6 % Normal [facility] Comment on above: Performed By: #### L CBCD ####[address] [address] Platelet mean volume (PMV) 10.0 fL Normal 7.1-10.5 [facility] Comment on above: Performed By: #### L CBCD ####[address] [address] Platelets 276 thou/cmm Normal 150-400 [facility] Comment on above: Performed By: #### L CBCD ####[address] [address] Seg Neutrophil 71.2 % Normal [facility] Comment on above: Performed By: #### L CBCD ####[address] [address] WBC (Leukocytes) 8.7 thou/cmm Normal 4.8-10.8 [facility] Comment on above: Performed By: #### L CBCD ####[address] [address] Lactic acidon 03-12-2018 Lactate 1.0 mmol/L Normal 0.4-2.0 [facility] Comment on above: Performed By: #### L LA ####[facility] [place], [place] [address] Lipase Bloodon 03-12-2018 Lipase Blood 81 U/L Normal 73-393 [facility] Comment on above: Performed By: #### L LIP ####[place] [address] MDRD eGFRon 03-12-2018 eGFR (non-black) mL/min/{1.73_m2} Normal >60mL/m in/1 .73m2 [facility] Comment on above: Result Comment: If t he patient is , multiply the result by 1.210. Performed By: #### L GFR ####[place] [address] Urinalysis Routineon 018 Bilirubin Urine Negative Normal Negative [facility] Comment on above: Performed By: #### L URIN ####[place] [address] Ep Cells Urine 2-5 Normal 0-5 [facility] Comment on above: Performed By: #### L URIN ####[place] [address] Granular Cast 0-1 Abnormal None [facility] Comment on above: Performed By: #### L URIN ####[place] [address] Hemoglobin,Urine Negative Normal Negative [facility] Comment on above: Performed By: #### L URIN ####[place] [address] Hyaline Cast 0-2 Abnormal None [facility] Comment on above: Performed By: #### L URIN ####[place] [address] Ketone Urine Negative Normal Negative [facility] Comment on above: Performed By: #### L URIN ####[place] [address] Mucus Threads FEW Normal None [facility] Comment on above: Performed By: #### L URIN ####[address] [place], [place] [address] Nitrites Urine Negative Normal Negative [facility] Comment on above: Performed By: #### L URIN ####[address] [address] Protein Urine 1+ Abnormal Negative [facility] Comment on above: Performed By: #### L URIN ####[place] [address] Specific [place], Ur 1.020 Normal 1.005-1.030 [facility] Comment on above: Performed By: #### L URIN ####[place] [address] Urine, appearance 2+ (SLT CLOUDY) Normal [facility] Comment on above: Performed By: #### L URIN ####[place] [address] Urine, bacteria in sediment Occasional Normal None [facility] [facility] Comment on above: Performed By: #### L URIN ####[place] [address] Urine, color YELLOW Normal [facility] Comment on above: Performed By: #### L URIN ####[place] [address] Urine, erythrocytes in sediment by area 0-3 Normal 0-3 [facility] Comment on above: Performed By: #### L URIN ####[place] [address] Urine, glucose presence Negative Normal Negative [facility] Comment on above: Performed By: #### L URIN ####[place] [address] Urine, leukocytes in sedmiment 2-5 Normal 0-5 [facility] Comment on above: Performed By: #### L URIN ####[place] [address] Urine, pH 6.5 [pH] Normal 5.0-8.0 [facility] Comment on above: Performed By: #### L URIN ####[address] [place] [address] Urobilinogen,Ur 2.0 EU/dL High 0.0-1.0 [facility] Comment on above: Performed By: #### L URIN ####[facility] [place], [place] [address] WBC (Leukocytes) Negative Normal Negative [facility] Comment on above: Performed By: #### L URIN ####[facility] [place], [place] [address] Vital Signs Date Time Vital Sign Value Performing Clinician Faci lity 03-05-2022 11:38-0400 Body temperature 96.8 [degF] Vahe Strickland MD Work Phone: [facility] 03-05-2022 11:38-0400 Diastolic blood pressure 89 mm[Hg] Vahe ahumada MD Work Phone: [facility] 03-05-2022 11:38-0400 Heart rate 80 /min Vahe Strickland MD Work Phone: [facility] 03-05-2022 11:38-0400 Respiratory rate 17 /min Vahe Strickland MD Work Phone: [facility] 03-05-2022 11:38-0400 SaO2% (BldA) [Mass fraction] 93 % Vahe Strickland MD Work Phone: [facility] 03-05-2022 11:38-0400 Systolic blood pressure 180 mm[Hg] Vahe royal MD Work Phone: [facility] 03-01-2022 19:51-0400 Body height 167.6 cm Vahe Strickland MD Work Phone: [facility] 03-01-2022 19:51-0400 Body mass index (BMI) [Ratio] 52.46 kg/m2 Vahe Strickland MD Work Phone: [facility] 03-01-2022 19:51-0400 Body weight 147.42 kg Vahe Strickland MD Work Phone: [facility] 07-19-2021 13:26-0500 Diastolic blood pressure 100 mm[Hg] Papito Shrestha MD Work Phone: [facility] 07-19-2021 13:26-0500 Heart rate 84 /min Papito Shrestha MD Work Phone: [facility] 07-19-2021 13:26-0500 Respiratory rate 18 /min Papito Shrestha MD Work Phone: [facility] 07-19-2021 13:26-0500 SaO2% (BldA) [Mass fraction] 95 % Papito Shrestha MD Work Phone: [facility] 07-19-2021 13:26-0500 Systolic blood pressure 166 mm[Hg] Papito Shrestha MD Work Phone: [facility] 07-19-2021 12:45-0500 Body height 167.6 cm Papito Shrestha MD Work Phone: [facility] 07-19-2021 12:45-0500 Body mass index (BMI) [Ratio] 51.65 kg/m2 Papito Shrestha MD Work Phone: [facility] 07-19-2021 12:45-0500 Body temperature 98.2 [degF] Papito Shrestha MD Work Phone: [facility] 07-19-2021 12:45-0500 Body weight 145.15 kg Papito Shrestha MD Work Phone: [facility] Encounters Encounter Date Encounter Type Care Provider Facility Start: 02-28-2025 ambulatory Gee HERRMANN Facil ity:[facility] Start: 02-07-2025 End: 02-07-2025 ambulatory No Primary Care Physician [facility] Work Phone: Start: 02-07-2025 End: 02-07-2025 Departed Referred Gee Figueroa - [address] Start: 02-07-2025 End: 02-07-2025 ambulatory Gee HERRMANN Facility:[facility] Start: 12-07-2024 End: 12-07-2024 Departed Referred Gee Figueroa - [address] Start: 12-07-2024 Registered Referred Gee Montez [facility] [address] Start: 12-07-2024 End: 12-07-2024 ambulatory Gee HERRMANN Facility:[facility] Start: 10-27-2024 ambulatory Gee HERRMANN Facil ity:[facility] Start: 10-27-2024 Registered Referred Gee Colungaworth - [address] Start: 10-04-2024 ambulatory No Primary Car e Physician Facility:[facility] Start: 10-04-2024 Registered Referred Gee Schmitz ltabilio [place] - [address] Start: 09-17-2024 End: 09-17-2024 ambulatory No Primary Care Physician [facility] Work Phone: Start: 09-17-2024 End: 09-17-2024 Departed Referred Gee Rosenthal [place] - [address] Start: 09-17-2024 End: 09-17-2024 ambulatory No Primary Care Physician Facility:[facility] Start: 09-03-2024 End: 09-15-2024 Evaluation and management of inpatient EDDY OVERTON MD Facility:[id number] Start: 11-03-2022 Letter encounter Farhan tolbert Start: 03-29-2022 End: 04-15-2022 Subsequent hospital visit by physician Shelby Deutsch MD Work Phone: [facility] Comment on above: [I63.9] - Cerebral i nfarction Start: 03-25-2022 Telephone encounter Coleen copeland MD Work Phone: MD Provider Adult Comment on above: [facility] Start: 03-20-2022 End: 03-20-2022 Subsequent hospital visit by physician Melba Gutierrez DO Work Phone: [facility] Comment on above: +COVID,recent CVA,L side weakness Start: 03-20-2022 Telephone encounter Emeterio Ricardo APRN.AIR MARSHAL Work Phone: [facility] Comment on above: Orders (CT Brain) Start: 03-01-2022 End: 06-28-2022 Evaluation and management of inpatient Vahe Strickland MD Work Phone: [facility] Comment on above: Left-sided weakness (Primary Dx) Start: 08-08-2021 End: 08-08-2021 Subsequent hospital visit by physician Maxine Vital MD Work Phone: [facility] Radiology Start: 07-19-2021 End: 07-19-2021 Emergency department patient visit Papito Shrestha MD Work Phone: [facility] ED Comment on above: External constrictio n of right foot, initial encounter (Primary Dx); Anxiety state Start: 10-28-2020 End: 10-28-2020 Letter encounter [facility] Start: 03-02-2020 End: 03-02-2020 Subsequent hospital visit by physician Lencho Obando Work Phone: [facility] Radiology Start: 04-17-2017 End: 04-17-2017 Emergency department patient visit MIGUEL Deluna [facility] Facility:[facility] Procedures Date Procedure Procedure Detail Performing [...] head/brain w/o co ntrast material Emeterio Ricardo MEMBERSHIP SALES ADVISOR.[employer] MARSHAL Work Phone: Start: 03-05-2022 POCT COVID-19, ANTIGEN Lonnie Rigoberto Haile DO Work Phone: Start: 03-05-2022 BASIC METABOLIC PANE L W/ REFLEX TO MG FOR LOW K Rikki Subichin MD Work Phone: Start: 03-05-2022 Blood count complete automated Rikki Ceja MD Work Phone: Start: 03-04-2022 Dup-scan xtr veins c omplete bilateral study Hannah NettePhil Mcdermott MEMBERSHIP SALES ADVISOR - [employer] MARSHAL Work Phone: Start: 03-04-2022 Mri spinal canal cer vical w/o & w/contr matrl Hannah Mcdermott MEMBERSHIP SALES ADVISOR - [employer] Work Phone: Start: 03-04-2022 Duplex scan extracra nial art compl bi study Nida Holliday DO Work Phone: Start: 03-04-2022 BASIC METABOLIC PANE L W/ REFLEX TO MG FOR LOW K Rikki Ceja MD Work Phone: Start: 03-04-2022 Blood count complete automated Rikki Ceja MD Work Phone: Start: 03-03-2022 Mra head w/o contrst material Rikki Ceja MD Work Phone: Start: 03-03-2022 BASIC METABOLIC PANE L W/ REFLEX TO MG FOR LOW K Rikki Ceja MD Work Phone: Start: 03-03-2022 Blood count complete rajinder Ceja MD Work Phone: Start: 03-02-2022 Echo [...] Author Start: 03-26-2027 LIPID SCREEN LIPID SCREEN [facility] Start: 04-15-2025 DIABETES SCREEN DIABETES SCREEN [facility] Start: 03-25-2025 DIABETES SCREEN DIABETES SCREEN [facility] Start: 03-20-2025 DIABETES SCREEN DIABETES SCREEN [facility] Start: 03-02-2023 Hemoglobin A1c measurement A1C test (Diabetic or Prediabetic) [facility] Start: 03-02-2023 Lipid panel Lipids [facility] Start: 06-08-2022 Influenza vaccination Influenza Vacc ine (#[facility] Start: 05-12-2022 Diabetes screen Diabetes screen [facility] Start: 05-09-2022 Influenza vaccination INFLUENZA (#1) [facility] Start: 04-23-2022 Depression Monitoring Depression Mon itoring [facility] Start: 03-27-2022 End: 03-27-2022 Patient encounter procedure 03/27/2022 [place] [address] [place] [id number] [facility] [place] Start: 01-26-2022 COVID-19 VACCINE (4 - Booster for Pfizer series) COVID-19 VACCINE (4 - Booster for Pfizer series) [facility] Start: 12-03-2021 Creatinine measurement Creatinine mo nitoring [facility] Start: 12-03-2021 Potassium monitoring Potassium monit oring [facility] Start: 08-19-2021 COVID-19 Vaccine (3 - Booster for Pfizer series) COVID-19 Vaccine (3 - Booster for Pfizer series) [facility] Start: 08-15-2021 End: 08-15-2021 Patient encounter procedure 08/15/2021 Office Visit Orthopedic Surgery Loreta Nice, ROCKY [address] [place] [address] [facility] [place] Start: 05-09-2021 Influenza vaccination Flu vaccine (# 1) [facility] Start: 01-10-2021 Annual Wellness Visi t (AWV) Annual Wellness Visit (AWV) [facility] Start: 06-08-2020 Influenza vaccination Influenza Vacc ine (#1) [facility] Start: 03-30-2020 End: 03-30-2020 Office Visit 03/30/2020 Office Visit Orthopedic Surgery Michael Cruz MD [address] [place] [phone] [facility] [place] Start: 12-18-2019 Creatinine measurement Creatinine mo nitoring [facility] [place] Start: 12-18-2019 Potassium monitoring Potassium monit oring [facility], [place] Start: 2017 Measurement of occul t blood in single stool specimen [facility] Start: 2017 Screening for malign ant neoplasm of breast Mammography [facility] Start: 2017 Screening for malign ant neoplasm of colon [facility] Start: 2017 Shingles Vaccine (1 of 2) Shingles Vaccine (1 of 2) [facility] Start: 2017 SHINGRIX VACCINE (1 of 2) SHINGRIX VACCINE (1 of 2) [facility] Start: 2017 Varicella-zoster vaccine (product) Shingles (RZV) Vaccine (1 of 2) [facility] Start: 2012 Cholesterol [Mass/Vol] Cholesterol [facility] Start: 2012 COLOGUARD (FIT-DNA) COLOGUARD (FIT-D NA) [facility] Start: 2012 Colonoscopy COLONOSCOPY [facility] Start: 2012 COLORECTAL CANCER SCREENING COLORECTAL CANCER SCREENING [facility] Start: [address] COLONOGRAPHY [facility] Start: 2012 FECAL OCCULT BLOOD FECAL OCCULT BLOO D [facility] Start: 2012 LIPID SCREEN LIPID SCREEN [facility] Start: 2012 Screening for malign ant neoplasm of colon [facility] Start: 2012 SIGMOIDOSCOPY SIGMOIDOSCOPY [facility] Start: 2007 Lipid panel Lipid screen [facility] Start: 2007 Mammography MAMMOGRAM [facility] Start: 2007 Screening for malign ant neoplasm of breast [facility] Start: 1997 HPV TESTING HPV TESTING [facility] Start: 1997 Screening for malign ant neoplasm of cervix [facility] Start: 1988 PAP TESTING PAP TESTING [facility] Start: 1988 Screening for malign ant neoplasm of cervix [facility] Start: 1986 DTaP/Tdap/Td vaccine (1 - Tdap) DTaP/Tdap/Td vaccine (1 - Tdap) [facility] Start: 1986 Tetanus vaccination [facility] Start: 1986 Urine microalbumin profile DTAP,TDAP,TD (1 - Tdap) [facility] Start: 1985 ANNUAL PCP TEAM SPA COORDINATOR SHAWNA DISEASE VISIT ANNUAL PCP TEAM CHRONIC DISEASE VISIT [facility] Start: 1985 BP CONTROLLED (<130/80) BP CONTROLLE D (<130/80) [facility] Start: 1985 Hepatitis C antibody , confirmatory test Hepatitis C Antibody [facility] Start: 1985 HEPATITIS C SCREENING HEPATITIS C SC ABDI [facility] Start: 1985 Hepatitis C screening Hepatitis C An tibody [facility] Start: 1985 HIV SCREENING HIV SCREENING [facility] Start: 1985 Tetanus + diphtheria + acellular pertussis vaccine (product) Tdap [facility]oster [facility] Start: 1982 HIV screening [facility] Start: 1967 COVID-19 Vaccine (#1) COVID-19 Vacci ne (#1) [facility] Start: 1967 Colonoscopy Colonoscopy [facility] Start: 1967 HEPATITIS B (1 of 3 - 3-dose series) HEPATITIS B (1 of 3 - 3-dose series) [facility] Start: 1967 Screening for malign ant neoplasm of colon Colonoscopy [facility] Oxygen therapy [Mini mum Data Set] Initiate Oxygen Therapy Protocol Respiratory Care Routine As Needed until discontinued starting 03/01/2022 [facility] Work Phone: Comment on above: As Needed until disc ontinued starting 03/01/2022 Oxygen therapy [Mini [facility] Data Set] Initiate Oxygen Therapy Protocol Respiratory [...] Immunization Date Immunization Notes Care Provider Pamella prakash 09-28-2021 COVID-19 vaccine, ag e 12+ yr ([facility] [employer] [place] [employer]) Emeterio Ricardo APRN.AIR MARSHAL Work Phone: [facility] 09-28-2021 Influenza, injectabl e, Madin [place] Canine Kidney, preservative free, quadrivalent Emeterio Trill MEMBERSHIP SALES ADVISOR.AIR MARSHAL Work Phone: [facility] 02-17-2021 COVID-19 vaccine, ag e 12+ yr ([facility] [facility]) Emeterio Trill MEMBERSHIP SALES ADVISOR.A[employer] MARSHAL Work Phone: [facility] 01-27-2021 COVID-19 vaccine, ag e 12+ yr ([facility] [facility]) Emeterio Trill MEMBERSHIP SALES ADVISOR.A[employer] MARSHAL Work Phone: [facility] 09-21-2019 influenza, injectabl e, quadrivalent, preservative free [facility], [place] 06-06-2017 influenza virus vacc ine, unspecified formulation Maxine Vital MD Work Phone: [facility] Work Phone: 06-06-2017 influenza, seasonal, injectable Emeterio Trill MEMBERSHIP SALES ADVISOR.[facility] Work Phone: [facility] Work Phone: 06-23-2016 influenza virus vacc ine, whole virus [facility], [place] 06-21-2016 influenza virus vacc ine, unspecified formulation Maxine Vital MD Work Phone: [facility] Work Phone: 06-21-2016 influenza, seasonal, injectable, preservative free Emeterio Trill MEMBERSHIP SALES ADVISOR.A[employer] MARSHAL Work Phone: [facility] Work Phone: 06-23-2015 pneumococcal polysaccharide vaccine, 23 valent [facility], [place] 06-22-2014 influenza virus vacc ine, unspecified formulation Maxine Vital MD Work Phone: [facility] Work Phone: 06-22-2014 influenza, seasonal, injectable, preservative free Emeterio Trill MEMBERSHIP SALES ADVISOR.[facility] Work Phone: [facility] Work Phone: 05-20-2013 influenza virus vacc ine, unspecified formulation Maxine Vital MD Work Phone: [facility] Work Phone: 05-20-2013 influenza, seasonal, injectable Emeterio Ricardo APRN.[facility] Work Phone: [facility] Work Phone: Payers Date Payer Category Payer Unknown [id number] 2024 Self-pay 2024 Unknown [id number] 2024 Unknown [id number] 2021 Unknown BCBS [place] [id number] 2021-Present [address] [place] [address] [id number] 2019 Medicare UHC MEDICARE UHC MEDICARE COMPLETE xxxxxxxxx 2019-Present xxxxxxxxx [id number] 2019 Medicare [id number] 2002 Medicare [id number] 2002 Medicaid [id number] 2002 Medicaid [id number] 1967 Unknown [id number] Private Health Insurance Unknown [employer] [id number] Effective for all [place] [place] [address] Other [id number] Unknown [id number] Unknown [id number] Unknown [id number] Unknown [id number] Unknown [id number] Unknown [id number] Social History Date Type Detail Facility Start: 04-23-2016 End: 02-16-2020 Tobacco smoking status NHIS Never smoker [place] Start: 02-16-2020 End: 03-25-2022 Alcohol intake Current non-drinker of alcohol (finding) [place] Start: 12-16-2018 End: 03-18-2022 History SDOH Alcohol Frequency 1 [place] Start: 09-21-2019 End: 03-18-2022 History SDOH Social Connections Phone 3 [place] Start: 05-12-2019 End: 03-26-2022 History SDOH Social Connections Membership 2 [place] Start: 05-12-2019 End: 04-23-2021 History SDOH Social Connections Living 7 [place] Start: 12-16-2018 End: 04-23-2021 History SDOH Physical Activity DPW 0 [place] Start: 12-16-2018 End: 03-26-2022 History SDOH Stress 5 [place] Start: 1965 Sex Assigned At Female [place] Exposure to SARS-CoV -2 (event) Unable to assess [place] Start: 1965 Sex Assigned At Not on file [facility] Start: 02-25-2016 Tobacco use and exposure Smokeless tobacco non-user [facility] Work Phone: Start: 02-19-2022 End: 03-25-2022 Exposure to SARS-CoV-2 (event) Not sure [facility] Work Phone: Start: 03-15-2022 End: 03-25-2022 Exposure to SARS-CoV-2 (event) Yes [facility] Tobacco smoking stat [facility] Tobacco smoking consumption unknown [facility] Start: 04-23-2016 None None [facility] Start: 04-10-2016 Spouse/ Significant Other Spouse/ Significant Other [facility] Start: 12-16-2024 Sex Female (finding) [facility] Goals Date Patient Goal Desired Activity /State [...] discharge was postponted until today at 11:30AM. [facility] SNF and Bedside nurse have been updated. A. Discharge Plan: [facility] -PRE-CERT OBTAINED-no 7000 needed as came from [facility] Marcela [place]. DME required at discharge: No C. Who the discharge plan has been discussed with: Pt/Nursing D. Transportation needed at discharge: [id number] stretcher due to bed bound E. Barriers to discharge: N/A F. Handoff to whom: Bedside golf club weighter Disposition : ECF-Extended Care Facility Impression needs have been identified / Documentation completed: : No further intervention required- (Transition of Care Readiness) Mosotho Silvana KAMARA - 09/15/2024 11:26 [facility] 09-15-2024 Note Patient Education Baldomero mosley Hematology Anemia: Care Instructions Your Care Instructions [...] irregular heartbeat. After you call 911, the toaster operator may tell you to chew 1 [...] Where can you learn more? Go to [email or web address] Anil Enter R301 in the search box to learn more about Anemia: Care Instructions. Current as of: August 06, 2021 Content Version: 13.3 ? [employer]. Care instructions adapted under license by your healthcare professional. If you have questions about a medical condition or this instruction, always ask your healthcare professional. [employer] disclaims any warranty or liability for your use of this information. [facility] 09-14-[address] Grey [...] States her nausea has improved since AM. [facility] 09-14-2024 Note Social Work/Case Man agement [...] we are still waiting on auth per [facility] this morning. ADDENDUM-Auth obtained per [facility]. Ambulance arranged. Bedside RN updated with # for report. A. [facility]-no [id number] needed as came from [facility] Marcela Freitas DME required at discharge: No C. Who [...] Readiness) Silvana Terry - 09/14/2024 15:32 EST [facility] 09-13-2024 Note Social Work/Case Man agement [...] appeal in process? Checking on status. Awaiting [facility] to obtain ECF auth. [phone] -PENDING PRECERT--no 7000 needed as came from [facility] B. DME required at discharge: no C. [...] need. Silvana Terry - 09/13/2024 11:01 EST [facility] 09-10-2024 Note Social Work/Case Man agement [...] whom: Discharge Planning Note : A. Discharge Plan:Arian appeal:ECF: [phone] -PENDING PRECERT--no 7000 needed as came from [facility] B. DME required at discharge: no C. [...] need. Mery Acosta - 09/10/2024 11:47 EST [facility] 09-10-2024 Note Care Continuum Progr ess Note Entered On: 09/10/2024 11:21 EST Performed On: 09/10/2024 11:21 EST by Claudette Bentley Care Continuum Progress Note Livanta Case : Yes Livanta Case Comment : Physician reviewer agrees with termination of services and patient liability begins tomorrow 09/11/24 at noon. Claudette Bentley - 09/10/2024 11:21 EST [facility] 09-10-2024 Note Care Continuum Progr ess Note Entered On: 09/10/2024 11:08 EST Performed On: 09/10/2024 10:49 EST by Claudette Bentley [facility] Progress Note Primary Care Physician : RENETTA DILL, TONA BOGGS PCP appointment scheduled : Self schedule Specialist 1 : MAXINE OLSEN PA-C Scheduled Hazard Mitigation Officer 1 : 09/27/2024 14:00 EST Navigator Rounding Comments : Patient is scheduled for post discharge follow up with Cardiology. Appointment details added to depart No appt was avail with PCP before Cardiology appt Claudette Bentley - 09/10/2024 10:49 EST [facility] Comment on above: Order Comment: --- [...] ROMANA sent referrals to the following facilities: [facility]--out of insurance [facility] -[facility] bed available [facility]- no beds [facility] -[facility] beds Possibles--awaiting responses from [facility]. Also patient wants referrals sent to facillities in [facility]. SW made patient aware of acceptance from [facility] and patient is agreeable. A. Discharge Plan:[place] appeal:ECF: [facility] --can accept and requested LTC precert to [...] need. Mery Acosta - 09/09/2024 16:17 EST [facility] 09-09-2024 Note Nursing Discharge Moss mmary Entered On: 09/09/2024 11:49 EST Performed On: 09/09/2024 11:48 EST by Lelo Tineo LPN, DC Information Discharged to : ECF-Extended Care Facility Reg VTE Warfarin at Discharge : No Stephaniemalujacquesdianna Lelo BADILLO - 09/09/2024 11:48 EST Education TeachBack Methodology : Explanation Barriers to Learning : None evident Karynjacquesdianna Lelo BADILLO 09/09/2024 11:48 EST Post-Hospital Education Adult Grid [...] Call Health Care Provider : Verbalizes understanding Stephaniebasil Lelo BADILLO - 09/09/2024 11:48 EST Health Maintenance Education Adult Grid Allergies : Verbalizes understanding Bathing/Hygiene : Verbalizes understanding Diet/Nutrition : Verbalizes understanding Exercise : Verbalizes understanding Immunizations : Verbalizes understanding Oral Care : Verbalizes understanding Bobbin Drier Smoke : Verbalizes understanding Smoking Cessation : Verbalizes understanding Stephaniemalujacquesdianna Lelo BADILLO 09/09/2024 11:48 EST Medication Education Adult Grid Drug to Drug Interactions : Verbalizes understanding Drug to Food Interactions : Verbalizes understanding Med Dosage, Route, Scheduling : Verbalizes understanding Med Generic/Brand Name, Purpose, Action : Verbalizes understanding Med Preadministration Procedures : Verbalizes understanding Med Special Administration, Storage : Verbalizes understanding Medication Precautions : Verbalizes understanding Safety, Medication : Verbalizes understanding Stephaniemalujacquesdianna Lelo BADILLO 09/09/2024 11:48 EST Safety Education Adult Grid Choking/CPR : Verbalizes understanding Safety, Bathtub : Verbalizes understanding Safety, Carbon Monoxide Detectors : Verbalizes understanding Safety, Fall : Verbalizes understanding Safety, Fire : Verbalizes understanding Safety, Firearms : Verbalizes understanding Safety, Latex : Verbalizes understanding Safety, Smoke Detectors : Verbalizes understanding Stephaniemalujacquesdianna Lelo BADILLO - 09/09/2024 11:48 EST [facility] 09-09-2024 Note BRADLEY MATOS :1965 Registration [...] DILL, JACINTO Attending Physician - DEISY DILL, [facility] Consulting Physician - MICHAEL DILL, RICHARD OVERTON MD, [facility] Primary Care Physician - NATHAN DILL, [...] Gastrointestinal: Morbidly ob (more content not included)... [facility] 09-07-2024 Note Communication Log En tered On: 09/07/2024 19:03 EST Performed On: 09/07/2024 19:03 EST by Melba Redman RN Call Log Physician Call Log Physician requesting : SKYLAR ALVARADO MD, [facility] Patient Location : 149 149 Physician being called : BROOKLYNN DILL, EDDY RODRIGUEZ MD, [facility] Regi Reason : Consult Consult Telephone number : [phone] cell Time Call Placed : 11:05 EST 09:56 EST Comment : a/s 09/07/24 notified Melba Redman RN - 09/07/2024 19:03 EST Melba Redman RN - 09/07/2024 19:03 EST [facility] 09-07-2024 Note Social Work/Case Man agement [...] Note : A. Discharge Plan: return to [facility] [phone] - [place]-CAN RETURN TO FACILITY WHEN MEDICALLY [...] areas of identified need. Mery Acosta - 09/07/2024 13:27 EST [facility] 09-07-2024 Note Communication Log En tered On: 09/07/2024 10:07 EST Performed On: 09/07/2024 10:07 EST by Ros Evans Call Log Physician Call Log Physician requesting : SKYLAR ALVARADO MD [facility] Patient Location : 149 149 Physician being called : BROOKLYNN DILL, RICHARD GUIDRY MD Reason : Consult Consult Telephone number : [phone] cell Time Call Placed : 11:05 EST 09:56 EST Comment : a/s 09/07/24 MD notified Ros Evans - 09/07/2024 10:07 EST Ros Evans - 09/07/2024 10:07 EST [facility] 09-07-2024 Note Communication Log En tered On: 09/07/2024 10:02 EST Performed On: 09/07/2024 9:55 EST by Ros Evans Call Log Physician Call Log Physician requesting : SKYLAR ALVARADO MD [facility] Patient Location : 149 149 Physician being called : BROOKLYNN DILL, RICHARD GUIDRY MD Reason : Consult Consult Telephone number : [phone] cell Time Call Placed : 11:05 EST 09:56 EST Comment : a/s 09/07/24 MD notified Ros Evans - 09/07/2024 9:55 EST Ros Evans - 09/07/2024 9:55 EST [facility] 09-06-2024 Note [facility] Consultation BRADLEY MATOS [id number] LEO Ward MD [id number] REFERRING PHYSICIAN: CONSULTING PHYSICIAN: Eddy Overton MD [...] weeks ago, patient had COVID-19 at the halfway with flu-like symptoms. Her appetite is fair. [...] to follow with you. Eddy Overton MD SM/MedQ /[id number] CC:? Family Physician Eddy Overton MD [facility] 09-06-2024 Note Social Work/Case Man agement Progress Note Entered On: 09/06/2024 12:36 EST Performed On: 09/06/2024 12:34 EST by Mery Acosta Discharge Planning Patient Goal(s) at Discharge : [facility] Anticipated Discharge Date : 09/06/2024 EST Mery [...] Medical updates were sent to facility via [employer] A. Discharge Plan: return to [facility] [phone] - [place]-CAN RETURN TO FACILITY WHEN MEDICALLY CLEARED B. DME required at discharge: no C. Who the discharge plan has been discussed with: patient/RN D. Transportation needed at discharge: yes E. Barriers to discharge: medical clearance F. Handoff to whom: nurse Discharge Disposition : ECF-Extended Care Facility Impression needs have been identified / Documentation completed: : Social Work/Case Management Assessment Completed Lakhani Mery KAMARA - 09/06/2024 12:34 EST [facility] 09-04-2024 Note Communication Log En tered [...] Amada Amin RN - 09/04/2024 14:47 EST [facility] 09-04-2024 Note Communication Log En tered On: 09/04/2024 11:08 EST Performed On: 09/04/2024 10:59 EST by Lorraine Avina Call Log Physician Call Log Physician requesting : SKYLAR ALVARADO Patient Location : 149 Physician being called : EDDY OVERTON MD Reason : Consult Telephone number : [phone] Time Call Placed : 11:05 EST Comment : a/s Lorraine Avina - 09/04/2024 10:59 EST [facility] 09-04-2024 Note Patient: MANUEL MATOS Age: [...] at the nursing facility. She resides at [facility]. Says she has had a poor [...] PANTOPRAZOLE 40MG INJECTION 40 mg, IV Push, [id number] Continuous: (1) SODIUM CHLORIDE 0.9% 250 mL [...] history has been recorded . Resides at [facility]. Physical Examination General: No acute distress. [...] (SEP 04) 10 (more content not included)... [facility] 09-03-2024 Note Immunization Screeni ng Entered [...] Byron Franklin RN - 09/03/2024 23:04 EST [facility] Comment on above: Order Comment: --- At home, patient was taking medication with the following details: Special Instructions: not to exceed 3000 mg/day --- Result Comment: 09-03-2024 Note ED Nursing Discharge Summary Entered On: 09/03/2024 21:59 EST Performed On: 09/03/2024 21:59 EST by Hussain Wooten RN [place] Information [id number] ED IV's : Continue upon transfer ED IV Site Assessment : Yes, Completed in [facility] ED Vitals Completed : Yes ED Final Assessment Completed : Yes ED Progress Note Completed : Yes Complete all PRN/Pain response forms? : N/A ED Disassociate Patient from Monitor : Yes Updated Depart Time : No (not needed time is correct) ED Belongings sent w patient [id number] : Not applicable Hussain Wooten RN - [...] Hussain Wooten RN - 09/03/2024 21:59 EST [facility] 03-29-2022 Note HNO ID: [id number] Author: Kurt Evans MD Service: Infectious Disease [...] primary Discharge dispo -> [facility] MEDICATIONS: reviewed. Current Facility-Administered Medications [...] H PRN P (more content not included)... [facility] 03-28-2022 Note HNO ID: [id number] Author: Stephen Guy MD Service: Hospital Medicine Author Type: Physician Type: Progress Notes Filed: 03/28/2022 2:52 PM Note Text: DEPARTMENT OF HOSPITAL MEDICINE PROGRESS NOTE SERVICE DATE: 03/28/2022 SERVICE TIME: 2:51 PM Hospital Medicine/Primary Attending: Stephen Guy MD NIGHT AND WEEKEND COVERAGE: ALSIP COVERAGE: Days: [phone], please page attending physician. Nights: [phone], please page [place] Hospitalist Night coverage pager [phone]. Subjective INTERVAL HPI: [facility]waiting placement to [facility] [...] that symptoms initially began 02/28 evaluated at [facility] for slurred speech subsequently was transferred to [facility] and was diagnosed with an acute stroke, patient unable to state location. During the course of hospitalization she notes that she was COIVD + and was transferred to the rehab facility, w/residual left sided weakness, however she left AMA on 03/08. She has not yet had neurology follow-up. She returned home but was not feeling well and presented to [facility] on 03/08 where she was found to be COVID-19 (+), she was treated w/ 5 days of dex (5 days at discharge), and remdesivir d/t [place] oxygen requirement and discharged to rehab at [facility]. She notes that she was dong [...] overcome gravity to (more content not included)... [facility] 03-28-2022 Note HNO ID: [id number] Author: Erica Aguillon RN Service: Care Management Author Type: Registered Nurse Type: Care Mgt Progress Note Filed: 03/28/2022 12:45 PM Note Text: CARE MANAGEMENT PROGRESS NOTE SERVICE DATE: 03/28/2022 SERVICE TIME: 12:43 PM LOS: [address] Guy pt. will be ready for transfer to [facility] tomorrow Friday03/29/2022. Message to [place] if they can accept Pt. Friday AM. SIGNATURE: Erica Aguillon RN,BSN, ACM PATIENT NAME: Bradley Matos DATE: March 28, 2022 TIME: 12:43 PM PAGER/CONTACT #: [phone] [facility] 03-28-2022 Note HNO ID: [id number] Author: Erica Aguillon RN Service: Care Management Author Type: Registered Nurse Type: Care Mgt Progress Note Filed: 03/28/2022 10:57 AM Note Text: CARE MANAGEMENT PROGRESS NOTE SERVICE DATE: 03/28/2022 SERVICE TIME: 10:54 AM LOS: 3 days EMR reviewed for this 56 yr Female admitted with Stroke Like Symptoms. Ortho rec CT Scan L Hip [facility] is interested in accepting Pt. will check Benefits. SIGNATURE: Erica Aguillon RN,BSN, ACM PATIENT NAME: Bradley Matos DATE: March 28, 2022 TIME: 10:53 AM PAGER/CONTACT #: [phone] [facility] 03-28-2022 Note HNO ID: [id number] Author: Kurt Evans MD Service: Infectious Disease Author Type: Physician Type: Progress Notes Filed: 03/28/2022 1:45 PM Note Text: INFECTIOUS DISEASE PROGRESS NOTE Patient Name: Bradley Matos INTERVAL HISTORY: Patient seen and evaluated. Following for persistent COVID. Currently resting in bed in [facility]. She is oxygenating well on room air [...] ok Lines, Drains, and Airways Line Peripheral 03/27/221950 Left Forearm 20 Gauge <1 day Drain External Collection Device 03/28/22 0600 <1 day (more content not included)... [facility] 03-27-2022 Note HNO ID: [id number] Author: Stephen Guy MD Service: Hospital Medicine Author Type: Physician Type: Progress Notes Filed: 03/27/2022 4:21 PM Note Text: DEPARTMENT OF HOSPITAL MEDICINE PROGRESS NOTE SERVICE DATE: 03/27/2022 SERVICE TIME: 4:09 PM Hospital Medicine/Primary Attending: Stephen Guy MD NIGHT AND WEEKEND COVERAGE: ALSIP COVERAGE: Days: [phone], please page attending physician. Nights: [phone], please page [place] Hospitalist Night coverage pager [phone]. Subjective INTERVAL HPI: Was unable to complete [...] that symptoms initially began 02/28 evaluated at [facility] for slurred speech subsequently was transferred to [facility] and was diagnosed with an acute stroke, patient unable to state location. During the course of hospitalization she notes that she was COIVD + and was transferred to the rehab facility, w/residual left sided weakness, however she left AMA on 03/08. She has not yet had neurology follow-up. She returned home but was not feeling well and presented to [facility] on 03/08 where she was found to be COVID-19 (+), she was treated w/ 5 days of dex (5 days at discharge), and remdesivir d/t [place] oxygen requirement and discharged to rehab at [facility]. She notes that she was dong [...] to overcome gravity (more content not included)... [facility] 03-27-2022 Note HNO ID: [id number] Author: Erica Aguillon RN Service: Care Management [...] 27, 2022 TIME: 3:20 PM PAGER/CONTACT #: [phone] [facility] 03-27-2022 Note HNO ID: [id number] Author: Erwin Ahn Jr., MD Service: Neurology [...] hx. -Continue statin therapy. -Get records from [facility] ([facility]) to clarify prior workup and [...] in 2 weeks. ? Erwin Ahn MD [facility] 03-26-2022 Note HNO ID: [id number] Author: Stephen Guy MD Service: Hospital Medicine Author Type: Physician Type: Progress Notes Filed: 03/26/2022 4:27 PM Note Text: DEPARTMENT OF HOSPITAL MEDICINE PROGRESS NOTE SERVICE DATE: 03/26/2022 SERVICE TIME: 2:12 PM Hospital Medicine/Primary Attending: Stephen Guy MD NIGHT AND WEEKEND COVERAGE: ALSIP COVERAGE: Days: [phone], please page attending physician. Nights: [phone], please page [place] Hospitalist Night coverage pager [phone]. Subjective INTERVAL HPI: Says left arm left [...] that symptoms initially began 02/28 evaluated at [facility] for slurred speech subsequently was transferred to [facility] and was diagnosed with an acute stroke, patient unable to state location. During the course of hospitalization she notes that she was COIVD + and was transferred to the rehab facility, w/residual left sided weakness, however she left AMA on 03/08. She has not yet had neurology follow-up. She returned home but was not feeling well and presented to [facility] on 03/08 where she was found to be COVID-19 (+), she was treated w/ 5 days of dex (5 days at discharge), and remdesivir d/t [place] oxygen requirement and discharged to rehab at [facility]. She notes that she was dong [...] on Friday.She als (more content not included)... [facility] 03-26-2022 Note HNO ID: [id number] Author: Erica Aguillon RN Service: Care Management Author Type: Registered Nurse Type: Care Mgt Initial Assessment Filed: 03/26/2022 11:53 AM Note Text: CARE MANAGEMENT: ASSESSMENT AND DISCHARGE PLAN SERVICE DATE: March 26, 2022 SERVICE TIME: 11:49 AM PRIMARY CARE PHYSICIAN: Didier Hicks MD Primary Contact: Extended Emergency Contact Information Primary Emergency Contact: Daiana Mcghee Address: [address] Relation: Daughter ADMISSION STATUS: Inpatient Insurance Provider: MEDICARE A NEEDS PRIOR TO DISCHARGE Needs Prior to Discharge: To Be Determined;Discharge Prescriptions;Discharge Transportation;OT/PT Evaluation;Accepting Facility;Facility or Agency Choices POTENTIAL TRANSITION PLANS Group Home Facility/Intermediate Care Facility;To Be Determined Based on clinical judgement, Care Management will address the following needs: Functional (Recurrence of Stroke Like Symptoms) Patient's perception of need for this admission: Stroke Like Symptoms ADVANCE DIRECTIVES Current Advance Directive: None Wind Turbine Technician Attempted to Assist with AD Completion: Yes [...] Skilled Home Health Care Facility Name/Phone Number: [facility] Last discharge within 30 days: Yes Is this a planned readmission?: No Unplanned Reason: New or recurring symptoms of underlying disease Followed Up with Appointment Prior to Admission: Other: See Comment (Pt. readmitted from [facility]) Opportunities to avoid readmission were identified: No PATIENT SCREEN Patient/Content Developer Stated Goals: To improve my functional status;To [...] inter-professional team:: Other: See Comment (Readmitted from [facility]) Patient's transition needs and plan for meeting these needs: Return to [facility]. MEDICAL Medical Needs: Two or more chronic diseases Health Issues Impacting Discharge Plan: Newly diagnosed Newly Diagnosed: Stroke Like Symptoms Medication Adherance I am convinced of the importance of my prescription medication: 0 - Agree Completely I worry that my prescription medication will do more harm than good to me : 0 - Disagree Completely I feel financially burdened by my cey-gq-udwmtx expenses for my prescription medication:: 0 - Disagree Completely Risk Score: 0 Patient is categorized as: Low risk < 2 SOCIAL Living Arrangements: Nursing Facility Facility Information: [facility] Level of Care: Skilled Financial Resources: Unemployed [...] Walker Has the Patient Been in a Group Home Facility i (more content not included)... [facility] 03-26-2022 Note HNO ID: [id number] Author: Martha Tejeda RN Service: Nursing Author Type: Registered Nurse Type: Progress Notes Filed: 03/25/2022 10:44 PM Note Text: 2243: Pt is having some nausea. She is requesting phenergan. Hospitalist paged and made aware. [facility] 03-25-2022 Miscellaneous Notes Had a stroke in February, was admitted at [facility] in March with Covid - after that went to rehab. C/o increased weakness and numbness left side for the last [address] brain in ER no ac stroke. Covid test still + but no symptoms. Will be admitted at [facility] for further neuro work-up. documented in this encounter [facility] 03-25-2022 Note HNO ID: [id number] Author: Joelle Johnson RN Service: Nursing Author Type: Registered Nurse Type: Nursing Progress Note Filed: 03/25/2022 9:35 AM Note Text: Dr Gutierrez here to see pt at this time [facility] 03-23-2022 Note HNO ID: [id number] Author: Interface Note Service: ? Author Type: ? Type: Progress Notes Filed: 03/23/2022 5:52 AM Note Text: Epic Scheduled Downtime: 03/22/2022 10:00:00 PM to 03/23/2022 5:00:00 AM [facility] 03-21-2022 Note HNO ID: [id number] Author: Iliana Garcia APRN.AIR MARSHAL Service: Family Practice Author Type: Nurse Practitioner [...] 11/03/2015. RESULT: Suboptima (more content not included)... [facility] 03-21-2022 Note HNO ID: [id number] Author: Luis Fernando Rivera MD Service: General [...] in range of motion - skin/wound care. [facility] 03-20-2022 Note HNO ID: [id number] Author: Emeterio Ricardo APRN.AIR MARSHAL Service: Family Practice Author Type: Nurse Practitioner [...] recheck labs on Friday morning. Emeterio Ricardo APRN.AIR MARSHAL [facility] 03-20-2022 Note HNO ID: [id number] Author: Emeterio Ricardo APRN.AIR MARSHAL Service: Family Practice Author Type: Nurse Practitioner Type: Progress Notes Filed: 03/20/2022 5:46 PM Note Text: Attestation signed by Melba Gutierrez DO at 03/20/2022 6:25 PM I reviewed and agree with the assessment as documented above. SIGNATURE: Melba Gutierrez DO DATE: March 20, 2022 TIME: 6:25 PM [facility] MEDICINE PROGRESS NOTE SERVICE DATE: 03/20/2022 SERVICE TIME: 1:30 PM Hospital Medicine/Primary Attending: Dr. Gutierrez NIGHT AND WEEKEND COVERAGE: [facility]/Dr. Gutierrez Subjective Subjective: Symptoms: Worsening. She [...] -- 03/13/22 1845 activity - mobilize patient (fl,oh) VTE Prophylaxis: VTE prophylaxis appropriate Disposition: To be determined Plan of care discussed with: Provider, RN, Patient SIGNATURE: Emeterio Ricardo APRN.CNP PATIENT NAME: Bradley Matos DATE: March 20, 2022 TIME: 5:27 PM PAGER/CONTACT #: [phone] [facility] 03-20-2022 Miscellaneous Notes Patient having increased left sided weakness, left facial tingling, left facial droop today. CT brain ordered. Emeterio Ricardo APRN.RE documented in this encounter [facility] 03-19-2022 Note HNO ID: [id number] Author: Melba Gutierrez DO Service: Family Practice [...] -- 03/13/22 1845 activity - mobilize patient (wa,co) VTE Prophylaxis: VTE prophylaxis appropriate SIGNATURE: Melba Gutierrez DO PATIENT NAME: Bradley Matos DATE: March 19, 2022 TIME: 8:57 PM [facility] 03-16-2022 Note HNO ID: [id number] Author: Joelle Johnson RN Service: Nursing Author Type: Registered Nurse Type: Nursing Progress Note Filed: 03/16/2022 3:57 PM Note Text: Pt continues to refuse to wear yellow non-skid socks when OOB. Pt states, "my feet catch on them" [facility] 03-12-2022 Note HNO ID: [id number] Author: Eddy Rebolledo MD Service: General Internal [...] H PRN - remdesivir in NaCl 0.9% Vial-Mate/ADD-[place] 100 mg 275 mL 100 mg INTRAVENOUS [...] -- 03/09/22 0315 activity - mobilize patient (wa,oh) VTE Prophylaxis: VTE prophylaxis appropriate SIGNATURE: Eddy Rebolledo MD PATIENT NAME: Bradley Matos [facility] 03-11-2022 Note HNO ID: [id number] Author: Eddy Rebolledo MD Service: General Internal [...] H PRN - remdesivir in NaCl 0.9% Vial-Mate/ADD-[place] 100 mg 275 mL 100 mg INTRAVENOUS [...] -- 03/09/22 0315 activity - mobilize patient (wa,oh) VTE Prophylaxis: VTE prophylaxis appropriate SIGNATURE: Eddy Rebolledo MD PATIENT NAME: Bradley Matos [facility] 03-11-2022 Note HNO ID: [id number] Author: Erica Aguillon RN Service: Care Management Author Type: Registered Nurse Type: Care Mgt Initial Assessment Filed: 03/11/2022 9:17 AM Note Text: CARE MANAGEMENT: ASSESSMENT AND DISCHARGE PLAN SERVICE DATE: March 11, 2022 SERVICE TIME: 9:11 AM PRIMARY CARE PHYSICIAN: Didier Hicks MD Primary Contact: Extended Emergency Contact Information Primary Emergency Contact: Daiana Mcghee Address: [address] Relation: Daughter ADMISSION STATUS: Inpatient Insurance Provider: MEDICARE A NEEDS PRIOR TO DISCHARGE Needs Prior to Discharge: To Be Determined;Discharge Prescriptions;Facility or Agency Choices;OT/PT Evaluation;Patient/Family POTENTIAL TRANSITION PLANS Group Home Facility/Intermediate Care Facility;To Be Determined Patient's perception of need for this admission: UTI, Urinary incontinence. ADVANCE DIRECTIVES Current Advance Directive: None Wind Turbine Technician Attempted to Assist with AD Completion: Yes [...] care did patient present?: Home PATIENT SCREEN Patient/Content Developer Stated Goals: To have reduction in symptoms;To improve my functional status;To ease into new life transition (care facility, hospice, palliative care) Under the care of a PCP?: Yes, Internal Provider Provider Name: Didier Hicks MD [phone] Does the patient have transportation upon discharge?: [...] Completely I feel financially burdened by my mii-yt-ycsbna expenses for my prescription medication:: 0 - [...] None Has the Patient Been in a Group Home Facility in the Past 30 days?: No [...] syndrome. PT/OT rec SNF. Pt. Recently D/C [facility] AMA. Pt. states she cannot take care of herself and needs SNF. Pt. [facility]. Referrals sent. SIGNATURE: Erica Aguillon RN,BSN, ACM PATIENT NAME: Bradley Matos DATE: March 11, 2022 TIME: 9:11 AM CONTACT #: [phone] [facility] 03-10-2022 Note HNO ID: [id number] Author: Eddy Rebolledo MD Service: General Internal [...] 6 H PRN remdesivir in NaCl 0.9% Vial-Mate/ADD-[place] 100 mg 275 mL 100 mg INTRAVENOUS [...] (PLAVIX) 75 mg ORAL DAILY Given, 03/10 0908 03/09/22 1117 -- 03/09/22 0330 heparin 5,000 Units injection (Medical Risk Categories) 5,000 Units SUBCUTANEOUS EVERY 12 HOURS Given, 03/10 0908 03/09/22 0310 -- 03/09/22 0315 activity - mobilize patient (wa,oh) VTE Prophylaxis: VTE prophylaxis appropriate SIGNATURE: Eddy Rebolledo MD PATIENT NAME: Bradley Matos DATE: March 10, 2022 TIME: 3:18 PM [facility] 03-09-2022 History of Past i llness Narrative Problem Noted Date Resolved Date Nausea 03/09/2022 03/13/2022 documented as of this encounter (statuses as of 03/20/2022) [facility]-02-2022 History of Past illness Narrative* Problem Noted Date Resolved Date Nausea 03/09/2022 03/13/2022 documented as of this encounter (statuses as of 03/21/2022) [facility]2022 History of Past illness Narrative* Problem Noted Date Resolved Date Nausea 03/09/2022 03/13/2022 documented as of this encounter (statuses as of 03/25/2022) [facility]2022 History of Past illness Narrative* Problem Noted Date Resolved Date Nausea 03/09/2022 03/13/2022 documented as of this encounter (statuses as of 04/15/2022) [facility]06-28-2022 History of Present illness Narrative* JONG Moura - 03/05/2022 1:58 PM EDT Occupational Therapy Attempted OT services; Per RN pt awaiting transportation to [facility] scheduled at 1400. * Lonnie Haile DO - 03/05/2022 6:07 AM EDT Images from the original note were not included. [facility] Progress Note Bradley Matos : 1965(56 y.o.) 03/05/22 Subjective: HPI The patient complains of left side weakness The patient feels their symptoms areunchanged no events or new concerns 56 y.o. female with a PMHx of anxiety, depression, fibromyalgia, ulcerative colitis, morbid obesity, Sjogren's, PTSD, GERD/peptic ulcer, who presented to [facility] with left sided weakness and slurred speech starting the morning of 02/28. On evaluation, her initial BP was 210/91. Llab work was unremarkable. CT head revealed an old lacunar infarct in the right caudate. She was admitted to [facility] for further stroke work up. Neuro was [...] incontinence -Suspect overflow urinary incontinence -> outpatient uro-patient registration specialist referral Fibromyalgia Back pain GERD PUD Ulcerative colitis IBS -home PPI, PRN Bentyl and Lomotil PTSD/anxiety/depression -PRN hydroxyzine DVTProphylaxis: lovenox 40 q 24hr - creatinine clearance >30 [facility] I spent over 51% of total time providing counseling or incoordination of care: > 35 minutes discussed with TCC/SW and I personally reviewed chart, data, labs radiology reports * Holly Loaiza - 03/04/2022 4:07 PM EDT Occupational Therapy Facility/Department: [facility] TELEMETRY Occupational Therapy Initial Assessment Name: Bradley [...] anxiety, PTSD, sjogren's, fibromyalgia, GERD presented to [facility] ER 03/01 with L sided weakness and [...] Ambulation Assistance: Independent Transfer Assistance: Independent Active Cooling Pipe Inspector: Yes Mode of Transportation: Car 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 Type of Occupation: [employer] Additional Comments: Indep without device CURER FOAM RUBBER Objective Heart Rate: 83 Heart Rate Source: [...] How much help for eating meals?: None AM-[facility] Inpatient Daily Activity Raw Score: 20 AM-[facility] Inpatient ADL T-Scale Score : 42.03 ADL Inpatient CMS 0-100% Score: 38.32 ADL Inpatient CMS G-Code Modifier : CJ AM-PAC Score AM-PAC Inpatient Daily Activity Raw Score: 20 (03/04/22 1606) AM-PAC Inpatient ADL T-Scale Score : 42.03 (03/04/22 1606) ADL Inpatient CMS 0-100% Score: 38.32 (03/04/22 1606) ADL Inpatient CMS G-Code Modifier : CJ (03/04/22 8616) Goals Short Term Goals Time Frame for [...] Plan of Care supervision is transferred to [facility] Occupational Therapist. Goals and/or treatment plan was established in collaboration with patient/family/other representatives. *OT evaluation/treatment completed wearing N95 and gloves* * Donna High DO - 03/04/2022 3:10 PM EDT Images from the original note were not included. [facility] Progress Note Bradley Matos : 1965(56 y.o.) [...] Computed Tomography ACCESSION EXAMDATE/TIME PROCEDURE ORDERING PROVIDER [id number] 03/01/2022 20:[address] Head or Brain w/o [id number] STRICKLAND CPT code 56988 Reason For Exam (CT Head or Brain [...] Cardiac Disposition: continue to monitor inpatient, await mental health consultant recommendations, await test results and await clinical improvement I spent over 51% of total time providing counseling or incoordination of care: > 35 minutes discussed with nurse, patient and family updated, I personally examined the patient and I personally reviewed chart, data, labs radiology reports 6AM-6PM please page me via Perfect Serve. 6PM-6AM please page [facility] Internal Medicine. * Lulu Cobb, CURER FOAM RUBBER - 03/04/2022 11:59 AM EDT Physical Therapy Facility/Department: [facility] TELEMETRY Daily Treatment Note Name: Bradley Matos [...] Assistance 2: Minimal assistance Gait Deviations: Slow Tneisha;Decreased step length;Decreased step height Distance: 5ft BSC>bed [...] sets x 10 reps each AM-PAC Score AM-[facility] Inpatient Mobility Raw Score : 9 (03/04/221334) AM-[facility] Inpatient T-Scale Score : 30.55 (03/04/221334) Mobility Inpatient CMS 0-100% Score: 81.38 (03/04/221334) Mobility Inpatient CMS G-Code Modifier : CM (03/04/221334) Goals Short Term Goals Time Frame for [...] 2) Lulu Cobb PTA * Hannah Mcdermott, MEMBERSHIP SALES ADVISOR - AIR MARSHAL - 03/04/2022 11:20 AM EDT PROGRESS NOTE. STROKE SERVICE Patient Name:Bradley Matos Patient : 1965 Acct: [id number] Date of Admission: 03/01/2022 Room/Bed: [facility] PCP: Didier Hicks MD Patient location Telemetry Remains in the hospital for completion of stroke riskassessment, Subjective: 56F PMH obesity, anxiety, PTSD, sjogren's, fibromyalgia, GERD presented to [facility] ER 03/01 with L sided weakness, dysarthria. [...] mg, 1 mg, IntraVENous, Once PRN, Donna High, DO gabapentin (NEURONTIN) capsule 100 mg, 100 mg, Oral, Once PRN, Donna Morelen, DO acetaminophen (TYLENOL) tablet 1,000 mg, 1,000 mg, Oral, Q8H PRN, Donna High, DO, 1,000 mg at 03/04/22 0916 gabapentin (NEURONTIN) capsule 100 mg, 100 mg, Oral, BID, Donna High, DO, 100 mg at 03/04/22 0915 dicyclomine (BENTYL) tablet 20 mg, 20 mg, [...] day, Rikki Ceja MD, 10 mL at 03/04/22 09 sodium chloride flush 0.9 % injection 5-40 [...] eGFR >90.0 >60 mL/min EGFR IF NonAfrican Swiss 87.0 >60 mL/min Calcium 9.0 8.4 - 10.4 mg/dL Coagulation: Recent Labs 03/01/221953 INR 1.0 Stroke Specific: Lipids: Recent Labs [...] intracranial arterial abnormality identified. EKG 03/01/22: Intervals [place] Rate: 90 P: 0 NC: 61 QRS: -24 QRSD: 96 T: 21 QT: 369 QTc: 453 Interpretive Statements Sinus rhythm Short NC interval Borderline left axis deviation Abnormal R-wave progression, late transition No previous ECG available for comparison ASSESSMENT / PLAN/RECOMMENDATIONS: R corpus collosum lesion (likely ischemic stroke) - Etiology of lesion is likely ischemic stroke (embolic R COOK TACO or MCA branch of unclear etiology), however, [...] and discussed with Dr. Pina NDUM 03/04 3176: MRI Brain and cervical spine reviewed with Dr. Pina. There is no evidence of enhancement or underlying lesion on MRI. Lesion to corpus collosum consistent with ischemic stroke. C-spine with some degenerative changes but otherwise no significant abnormality. CUS with stenosis <50% bilaterally.TTE WNL. Etiology of stroke is cryptogenic for which pt will need to follow up with cryptogenic stro ke clinic for OP event monitor/ILR. Will start [...] off. Please call with questions. * Donna High, DO - 03/03/2022 9:28 AM EDT Images from the original note were not included. [facility] Progress Note Bradley Matos : 1965(56 [...] Computed Tomography ACCESSION EXAMDATE/TIME PROCEDURE ORDERING PROVIDER [id number] 03/01/2022 20:[address] Head or Brain w/o [id number] ABRAHAM CPT code 35067 Reason For Exam (CT Head or Brain [...] Cardiac Disposition: continue to monitor inpatient, await mental health consultant recommendations, await test results and await clinical improvement I spent over 51% of total time providing counseling or incoordination of care: > 35 minutes discussed with nurse, patient and family updated, I personally examined the patient and I personally reviewed chart, data, labs radiology reports 6AM-6PM please page me via Perfect Serve. 6PM-6AM please page [facility] Internal Medicine. * Adali Spangler - 03/03/2022 8:10 AM EDT .Nutrition rescreen completed. Chart reviewed. Patient to be monitored and followed by the diet certified technician specialist.RODGER Augustin * Nida Holliday DO - 03/03/2022 7:03 AM EDT PROGRESS NOTE. STROKE SERVICE Patient Name:Bradley Matos Patient : 1965 Acct: [id number] Date of Admission: 03/01/2022 Room/Bed: 1322/1322A PCP: Didier Hicks MD Patient location Telemetry [...] mg, Oral, Q4H PRN, 650 mg at 03/02/22 1527 OR acetaminophen (TYLENOL) suppository 650 mg, 650 [...] 7.4 - 12.4 fL Coagulation: Recent Labs 03/01/221953 INR 1.0 Stroke Specific: Lipids: Recent Labs [...] Behavioral Health - Will place numbers to [facility] and [facility] in chart. Discussed with patient who is [...] either distal pericallosal artery KENNEDY branch or COOK TACO branch The aspect of the infarction is [...] 03/02/2022 8:44 AM EDT Physical Therapy Facility/Department: [facility] 3 TELEMETRY Physical Therapy Initial Assessment Name: Bradley [...] Assistance: Independent Additional Comments: Indep without device CURER FOAM RUBBER Vision/Hearing Cognition Orientation Overall Orientation Status: Within [...] CMS 0-100% Score: 72.57 (03/02/22827) Mobility Inpatient CMS G-Code Modifier : CL (03/02/22827) Goals Short [...] Plan of Care supervision is transferred to [facility] Re[facility] Department Physical Therapist. Plan [...] as per stroke protocol. Viola Dailey MA [facility]-ROADS SUPERVISOR documented in this [facility] Work Phone: 1(234) 491-686906-28-2022 [facility] Discharge Summary and Transition Note Bradley Matos [...] Sjogren's, PTSD, GERD/peptic ulcer, who presented to [facility] with left sided weakness and slurred speech starting the morning of 02/28. On evaluation, her initial BP was 210/91. Llab work was unremarkable. CT head revealed an old lacunar infarct in the right caudate. She was admitted to [facility] for further stroke work up. Neuro was [...] next 2-4 weeks." She was discharged to [facility] rehab in stable condition. PROCEDURES: none CONSULTANTS: [...] Complexity: follow up within 7-14 calendar days (39197) [x] Severe Complexity: follow up within 7 calendar days (93913) FOLLOW UP TESTING, PENDING RESULTS OR REFERRALS AT TRANSITIONAL CARE VISIT: [x] Yes [] No *follow up in cryptogenic stroke clinic *titrate BP meds DISPOSITION: Inpatient rehab FACILITY/HOME CARE AGENCY NAME: [facility] rehab Follow up with Didier Hicks MD to be scheduled after dc from rehab Notification (telephone encounter) to PCP initiated: [x] Yes [] No INSTRUCTIONS TO MA/SW: Please call patient on day after discharge (must document patient contacted within 2 business days of discharge). FOLLOW UP QUESTIONS FOR MA/ (more content not included)...[facility] 03-05-2022 Hospital course Narrative* Lonnie Haile, DO - 03/05/2022 11:14 AM EDT Images from the original note were not included. [facility] Discharge Summary and Transition Note Bradley Lana Matos : 1965 ADMIT DATE: 03/01/2022 DISCHARGE [...] Sjogren's, PTSD, GERD/peptic ulcer, who presented to [facility] ED with left sided weakness and slurred speech starting the morning of 02/28. On evaluation, her initial BP was 210/91. Llab work was unremarkable. CT head revealed an old lacunar infarct in the right caudate. She was admitted to [facility] for further stroke work up. Neuro was [...] next 2-4 weeks." She was discharged to [facility] rehab in stable condition. PROCEDURES: none CONSULTANTS: [...] Complexity: follow up within 7-14 calendar days (62693) [x] Severe Complexity: follow up within 7 calendar days (90300) FOLLOW UP TESTING, PENDING RESULTS OR REFERRALS AT TRANSITIONAL CARE VISIT: [x] Yes [] No *follow up in cryptogenic stroke clinic *titrate BP meds DISPOSITION: Inpatient rehab FACILITY/HOME CARE AGENCY NAME: [facility] rehab Follow up with Didier Hicks MD [...] TIME: > 30 minutes [facility] this [facility] Work Phone: 1(305) 764-687906-27-2022 Hospital Discharge instructions* Discharge Instr - Lab* Perla Gaspar RN - 03/04/2022 8:45 AM EDT New Patient Appointment with Dr. Gen Taylor MD Friday 11:30 AM Please arrive 15 minutes prior to scheduled appointment time to complete paper work, bring photo IDand insurance cards. [address] [phone] Please call Nereida Brice APRN at with [facility] to schedule a 30 day mobile tele [...] Hospital Unit/Room#: 1322/1322A Discharging Unit Phone Number: [phone] Emergency Contact: Extended Emergency Contact Information Primary Emergency Contact: Daiana Shine Address: [address] [place] [address] of [place] Relation: Child Past Surgical History: Past Surgical History: Procedure Laterality Date ABDOMEN SURGERY 7-8 inches for diveritculitis SECTION COLONOSCOPY 2017 [facility] KNEE SURGERY Left 2015 meniscal removal and [...] yrs and older Afluria) 09/21/2019 Pneumococcal Polysaccharide ([id number]) 06/23/2015 Active Problems: Patient Active Problem List Diagnosis Code Ulcerative colitis, chronic ([facility]) K51.90 Morbid obesity ([facility]) E66.01 Eating disorder F50.9 PTSD (post-traumatic stress [...] 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 Address: [address] [place] [address] Fax: Dialysis Facility (if applicable) Name: Address: Dialysis Schedule: Phone: Fax: Shaker Plate Operator/Marketing Admin signature: ICIAN SECTION Prognosis: Good Condition at [...] and the need for follow-up with a physician/[employer]/PA after discharge. Discussed the patient s personal [...] and to not smoke. [facility]: Evaluation note* Diagnosis External constriction of right foot, initial encounter- Primary Anxiety state Anxiety state, unspecified documented [facility] encounter [facility] Work Phone: Evaluation note* Diagnosis Stroke-like symptoms- [...] Ulcerative colitis, unspecified documented in this encounter [facility] Work Phone: Evaluation note* Diagnosis Recent cerebrovascular accident (CVA)- Primary [facility]* Diagnosis Recent cerebrovascular accident (CVA) documented in this encounter [facility] noteNo assessment information availableWAvita Health [facility] Work Phone: Hospital Discharge instructions* Instructions* Papito Shrestha MD - 07/19/2021 Return to Emergency Room immediately if any new or worsening problems. [facility] this [facility] Work Phone: Reason for referral (narrative)No reason for referral information availableWAvita Health [facility] Work Phone: Reason for visit Narrative* Auth/Cert Specialty Diagnoses / Procedures Referred By Contac t Referred To Contact Diagnoses Aftercare +COVID,recent CVA,L side weakness Procedures n/a Ld Acute Care/Swing [address] [place] [id number] Referral ID Status Reason Start Date Expiration Date Visits Re quested Visits Authorized [id number] 1 1 [facility] Summary Purpose Family History No [...] FoundDocuments on File Type Date Recorded Patient Content Developer Expl anation Advance Directives and Living Will Power of Early Childhood Teacher Assistant Documents on File Type Date Recorded Patient Content Developer Expl anation ACP-Advance Directive ACP-Power of Early Childhood Teacher Assistant Documents on File Type Date Recorded Patient Content Developer Expl anation ACP-Advance Directive ACP-Power of Early Childhood Teacher Assistant Latest Code Status on File Code Status Date Activated Date Inactivated Comments Full Code 03/02/2022 3:17 AM Documents on File Type Date Recorded Patient Content Developer Expl anation Advance Directive(s) 03/13/2022 4:11 PM Advance Directive(s) 03/08/2022 11:39 PM Advance Directive(s) 02/04/2019 11:42 PM Advance Directive(s) 03/11/2018 10:43 PM Advance Directive(s) 12/28/2017 4:19 PM Advance Directive(s) 06/06/2017 2:51 PM Documents on File Type Date Recorded Patient Content Developer Expl anation Advance Directive(s) 03/25/2022 12:30 PM Advance Directive(s) 03/13/2022 4:11 PM Advance Directive(s) 03/08/2022 11:39 PM Advance Directive(s) 02/04/2019 11:42 PM Advance Directive(s) 03/11/2018 10:43 PM Advance Directive(s) 12/28/2017 4:19 PM Advance Directive(s) 06/06/2017 2:51 PM Advance Directive Response Recorded Date/ Time Advance Directives No April 16, 2 016 2:20pm Reason for Referral Specialty Diagnoses / Procedures Referred By Contac t Referred To Contact Orthopedic Surgery Diagnoses External constriction of right foot, initial encounter Papito Shrestha MD [facility] [place] [address] Afl Spi Ort [facility] [address] [address] [place] [address] Referral ID Status Reason Start Date Expiration Date V isits Requested Visits Authorized [id number] Open Specialty Services Required 07/19/2021 07/19/2022 1 1 Scheduling Instructions [facility] Orth[facility] - [facility] [address] [place] [address] Specialty Diagnoses / Procedures Referred By Contac t Referred To Contact CT IMAGING Diagnoses Recent cerebrovascular accident (CVA) Procedures CT BRAIN WO IVCON CT HEAD/BRAIN W/O CONTRAST MATERIAL Emeterio Ricardo, MEMBERSHIP SALES ADVISOR.AIR MARSHAL [address] [place] [address] Ct Imaging Referral ID Status Reason Start Date Expiration Date Visits Requested Visits Authorized [id number] Pending Review Auto-Generat ed Referral 03/20/2022 04/19/2023 1 1 Health Concerns Infection Onset Date Last Indicated Resolved Time COVID-19 Confirmed 03/09/2022 03/09/2022 Infection Onset Date Last Indicated Resolved Time COVID-19 Confirmed 03/09/2022 03/25/2022 COVID-19 Rule-Out 03/25/2022 03/25/2022 03/25/2022 2:18 PM EDT Chief Complaint and Reason for Visit Chief Complaint Admit Date PENITENTIARY LAB WORK September 17, 2024 5:00am PENITENTIARY LAB WORK October 04, 2024 5:00am PENITENTIARY LAB WORK October 27 5:00am Chief Complaint Admit Date PENITENTIARY LAB WORK October 27 5:00am PENITENTIARY LAB WORK December 07, 2024 6: 40am LABWORK February 07, 2025 5:00a m Additional Source Comments INFORMATION SOURCE (unrecogn ized section and content) DATE CREATED AUTHOR 03/12/2018 [facility] DATE CREATED AUTHOR AUTHOR'S ORGANIZ ATION 03/02/2022 [facility] DATE CREATED AUTHOR AUTHOR'S ORGANIZ ATION 03/05/2022 [facility] DATE CREATED AUTHOR AUTHOR'S ORGANIZ ATION 03/30/2022 [facility] DATE CREATED AUTHOR AUTHOR'S ORGANIZ ATION 04/03/2022 [facility] DATE CREATED AUTHOR AUTHOR'S ORGANIZ ATION 04/15/2022 [facility] DATE CREATED AUTHOR AUTHOR'S ORGANIZ ATION 05/18/2022 [facility] DATE CREATED AUTHOR AUTHOR'S ORGANIZ ATION 11/07/2022 [facility] DATE CREATED AUTHOR AUTHOR'S ORGANIZ ATION 09/22/2024 [facility] DATE CREATED AUTHOR AUTHOR'S ORGANIZ ATION 03/01/2025 [facility] Reason for Visit (unrecogniz ed section and content) Reason Comments Foot Injury woke up this morning , states R instep was discolored. Has resolved Reason Comments Extremity Weakness Reason Comments Orders CT Brain Reason Comments Specialty Diagnoses / Procedures Referred By Contac t Referred To Contact Diagnoses [I63.9] - Cerebral infarction [facility] [address] [place] [address] Referral ID Status Reason Start Date Expiration Date V isits Requested Visits Authorized [id number] New Request 04/15/2022 06/14/2022 Care Teams (unrecognized sec tion and content) Cross Cut Sawyer Relationship Specialty Start Date End Date Didier Hicks MD [address] [facility] [address] [place] [address] PCP - General Family Medicine 08/24/18 Cross Cut Sawyer Relationship Specialty Start Date End Date Didier Hicks MD [address] [facility] [address] [place] [address] PCP - General Family Medicine 08/24/18 Cross Cut Sawyer Relationship Specialty Start Date End Date Didier Hicks MD [address] [place], [place] [id number] PCP - General Family Medicine 08/24/18 Cross Cut Sawyer Relationship Specialty Start Date End Date Didier Hicks [address] [place] [address] PCP - General Family Practice 03/07/22 Cross Cut Sawyer Relationship Specialty Start Date End Date Didier Hicks [address] [place] [address] PCP - General Family Practice 03/07/22 Cross Cut Sawyer Relationship Specialty Start Date End Date Didier Hicks [address] [place], [place] [id number] PCP - General Family Practice 03/07/22 Cross Cut Sawyer Relationship Specialty Start Date End Date Didier Hicks [address] [place] [address] PCP - General Family Practice 03/07/22 Team [...] 40 mg, Oral, NIGHTLY, First dose on Fri03/02/22 at 2100, Until Discontinued, If patient with no documented allergies or prior reported intolerance to Statins 2018 (Given - Provider: Bel aMrtin RN) 2038 (Given - Provider: Dorcas Hogan RN) 2099 (Due) capsaicin (ZOSTRIX) 0.025 % cream Topical, 2 TIMES DAILY, First dose on Fri03/02/22 at 2100, Apply to bilateral knees. Do not apply to wounds, damaged,broken or irritated skin. Do not cover with bandage. Do not use in combination with external heat source (eg. heating pad) 0738 (Given - Provider: Keke Reich RN)2016 (Held - Provider: Bel Martin RN - Reason: Patient/family refused) 0918 (Not Given - Provider: Nadja Aguirre RN - Reason: Patient/family refused)2038 (Given - Provider: Dorcas Hogan, RN) 0955 (Not Given - Provider: Nadja Aguirre RN - Reason: Patient/family refused)2099 (Due) clopidogrel (PLAVIX) tablet 75 mg 75 mg, Oral, DAILY, First dose on Fri03/05/22 at 1445, Until Discontinued 144 (Due) enoxaparin (LOVENOX) injection 40 mg 40 mg, SubCUTAneous, DAILY, First dose (after last modification) on Fri03/02/22 at 0900, Until Discontinued, Indication of Use: Prophylaxis-DVT/PE 0738 (Not Given - Provider: Keke Reich RN - Reason: Patient/family refused) 0918 (Not Given - Provider: Nadja Aguirre RN - Reason: Patient/family refused) 0955 (Not Given - Provider: Nadja Aguirre RN - Reason: Patient/family refused) gabapentin (NEURONTIN) capsule 100 mg 100 mg, Oral, 2 TIMES DAILY, First dose on 03/03/22 at 1000, Until Discontinued 1006 (Given - Provider: Keke Reich RN)2018 (Given - Provider: Bel Martin, PAYTON) 0915 (Given - Provider: Nadja Aguirre RN)2038 (Given - Provider: Dorcas Hogan RN) 0953 (Given - Provider: Nadja Aguirre RN)2100 (Due) LORazepam (ATIVAN) injection 1 mg (COMPLETED) [...] 0850 (Given - Provider: Keke Reich RN) 09 (Given - Provider: Nadja Aguirre RN) 0955 (Given - Provider: Nadja Aguirre RN) sodium chloride flush 0.9 % injection [...] Keke Reich RN)2020 (Given - Provider: Bel Martin RN) 0917 (Given - Provider: Nadja Aguirre RN)2038 (Given - Provider: Dorcas Hogan RN) 0955 (Given - Provider: Nadja Aguirre RN)2100 (Due) PRN Medication Order 03/03/2022 03/04/2022 03/05/2022 [...] Oral, EVERY 8 HOURS PRN, Starting on 03/03/22 at 0914, Until Discontinued, Pain Mild (1-3), Maximum dose of acetaminophen is 4000 mg from all sources in 24 hours. 0937 (Given - Provider: Keke Reich RN) 0916 (Given - Provider: Nadja Aguirre RN) 0410 (Given - Provider: Dorcas Hogan RN) dicyclomine (BENTYL) tablet 20 mg 20 mg, Oral, 4 TIMES DAILY PRN, Starting on 03/02/22 at 0317, Until Discontinued, Abdominal Cramping diphenoxylate-atropine (LOMOTIL) 2.5-0.025 MG per tablet 1 tablet 1 tablet, Oral, 4 TIMES DAILY PRN, Starting on 03/02/22 at 0317, Until Discontinued, Diarrhea gabapentin (NEURONTIN) capsule 100 mg (COMPLETED) 100 mg, Oral, ONCE PRN, 1 dose, Starting on 03/04/22 at 1119, Until Fri03/04/22 at 2359, Before MRI 1159 (Given - Provider: Nadja Aguirre RN) gadobutrol (GADAVIST) injection 15 mL 15 mL, IntraVENous, IMG ONCE PRN, 1 dose, Starting on 03/04/22 at 1224, Until Discontinued, Other gadobutrol (GADAVIST) injection 15 mL (COMPLETED) 15 mL, IntraVENous, IMG ONCE PRN, 1 dose, Starting on Fri03/04/22 at 1255, Until Fri03/04/22 at 1250, Other 1250 (Given - Provider: Evelyn Rodríguez) hydrALAZINE (APRESOLINE) tablet 10 mg 10 mg, Oral, EVERY 6 HOURS PRN, Starting on Tu03/05/22 at 1236, Until Discontinued, SBP >180 hydrOXYzine pamoate (VISTARIL) capsule 25 mg 25 mg, Oral, 3 TIMES DAILY PRN, Starting on Fri03/02/22 at 0320, Until Discontinued, Itching LORazepam (ATIVAN) injection 1 mg (COMPLETED) 1 mg, IntraVENous, ONCE PRN, 1 dose, Starting on Fri03/04/22 at 1119, Until Fri03/04/22 at 2359, Before MRI 1159 (Given - Provider: Nadja Aguirre RN) melatonin tablet 5 mg 5 mg, Oral, NIGHTLY PRN, Starting on Fri03/02/22 at 0317, Until Discontinued, Sleep 2017 (Given - Provider: Bel Martin, [place]) oxyCODONE (ROXICODONE) immediate release tablet 2.5 mg (CANCELED) 2.5 mg, Oral, EVERY 4 HOURS PRN, Starting on Fri03/03/22 at 0859, Until Fri03/04/22 at 1120, Pain Moderate (4-6), Pain Severe (7-10) 1506 (Given - Provider: Keke Reich, [place])2018 (Given - Provider: Bel Martin, [place]) perflutren lipid microspheres (DEFINITY) injection 1.65 mg 1.65 mg (1.5 mL), IntraVENous, IMG ONCE PRN, Starting on 03/02/22 at 0317, Until Fri03/05/22 at 0316, Other, Suboptimal Echo Image, Administer up to 1.65 mg via slow IVP for suboptimal echocardiogram enhancement. May administer as concentrated dose or diluted in 8.5 mL of 0.9% sodium chloride for a total volume of 10 mL. May administer as divided doses to reach optimal image enhancement. polyethylene glycol (GLYCOLAX) packet 17 g 17 g, Oral, DAILY PRN, Starting on Fri03/02/22 at 0317, Until Discontinued, Constipation, First line [...] Until 03/05/22 at 0316, Line Care, Per Pourer Buggy Ladle Request, May use order for Line Care after every IV line use and Agitated Saline Bubble Study. Administration for Bubble Study per dog daycare provider request for only. Remove 1 mL 0.9% [...] or prosecute any alcohol or drug abuse patient.[facility] Center[facility] the event this information is protected by the Federal Confidentiality of Alcohol and Drug Abuse Patient Records regulations: The Federal rules restrict any use of the information to criminally investigate or prosecute any alcohol or drug abuse patient.[facility] Center[facility] the event this information is protected by the Federal Confidentiality of Alcohol and Drug Abuse Patient Records regulations: The Federal rules restrict any use of the information to criminally investigate or prosecute any alcohol or drug abuse patient.[facility] the event this information is protected by the Federal Confidentiality of Alcohol and Drug Abuse Patient Records regulations: The Federal rules restrict any use of the information to criminally investigate or prosecute any alcohol or drug abuse patient.[facility] Goals (unrecognized section and content) [...] BE BASED ON THE PRIMARY CLINICAL RECORDS. [facility] Message [employer] [facility]. provides no warranty or guarantee of the accuracy or completeness of information in this document.
[2025-03-02 07:41] LABS: Absolute Lymphocyte Count 0.94 X10^3/uL (0.83-4.51); Absolute Neutrophil Count 2.3 X10^3/uL (2.0-7.7); Basophil# 0.03 X10^3/uL; Basophil% 0.8 % (0-1); Eosinophil# 0.06 X10^3/uL; Eosinophils% 1.6 % (0-5); Hematocrit 28.6 % (37-47); Hemoglobin 8.1 g/dL (12.0-15.0); Lymphocyte # 0.94 X10^3/ul (0.83-4.51); Lymphocyte % 25.8 % (19-41); Mean Corp Hgb Conc 28.3 g/dL (32-36); Mean Corpuscular Hgb 22.5 pg (27.0-32.0); Mean Corpuscular Volume 79.4 fL (81-99); Mean Platelet Vol. 10.1 fl (6.2-12.0); Monocyte# 0.35 X10^3/uL; Monocyte% 9.6 % (0-10); NRBC Flagged by Analyzer 0 % (0-5); Neutrophil # 2.25 X10^3/uL (2.7-7.7); Neutrophil % 61.9 % (47-70); Platelet Count 146 K/mm3 (150-450); RBC Distribution Width CV 17.4 % (11.6-14.6); RBC Distribution Width SD 50.7 fl (35.1-43.9); White Blood Count 3.6 K/mm3 (4.4-11.0)
== END ==
LOC: OLS.ACW300 05:00
PROVIDERS: Visit Provider Family Medicine
DX: Z79.899 Other long term (current) drug therapy (principal)
CPT/HCPCS: 36415; 85025